=== PATIENT | male | born 1980 | race Caucasian/White ===

== ENCOUNTER → 2017-06-20 | Outpatient (CLI) | payer OTHER | LOC: WOUNDCARE 08:34 | PROVIDERS: ATTEND Nurse Practitioner | DX: L97.222 Non-pressure chronic ulcer of left calf with fat layer exposed (principal); I87.2 Venous insufficiency (chronic) (peripheral) | CPT/HCPCS: 11042; 87070; 87075; 87101; 87186; 87205 ==

== ENCOUNTER → 2017-07-06 | Outpatient (CLI) | payer OTHER | LOC: WOUNDCARE 15:00 | PROVIDERS: ATTEND Nurse Practitioner | DX: L97.222 Non-pressure chronic ulcer of left calf with fat layer exposed (principal); I87.2 Venous insufficiency (chronic) (peripheral); L03.116 Cellulitis of left lower limb | CPT/HCPCS: 11042 ==

== ENCOUNTER → 2017-07-13 | Outpatient (CLI) | payer OTHER | LOC: WOUNDCARE 13:52 | PROVIDERS: ATTEND Nurse Practitioner | DX: L97.222 Non-pressure chronic ulcer of left calf with fat layer exposed (principal); I87.2 Venous insufficiency (chronic) (peripheral); L03.116 Cellulitis of left lower limb | CPT/HCPCS: 11042 ==

== ENCOUNTER → 2017-07-20 | Outpatient (CLI) | payer OTHER | LOC: WOUNDCARE 14:16 | PROVIDERS: ATTEND Nurse Practitioner | DX: L97.222 Non-pressure chronic ulcer of left calf with fat layer exposed (principal); I87.2 Venous insufficiency (chronic) (peripheral); L03.116 Cellulitis of left lower limb | CPT/HCPCS: 11042 ==

== ENCOUNTER 2019-11-08 11:09 | Emergency (ER) | payer OTHER ==
[~2019-11-08] VITALS: Ht 190.5 cm; Wt 145.1 kg
[2019-11-08 11:18] VITALS: BP 143/76
[2019-11-08] MEDS ORDERED: LISI40TA (11:27)
[2019-11-08] MEDS ORDERED: WARF-48 (11:27)
[2019-11-08] MEDS ORDERED: HYDR-3820 (11:27)
[2019-11-08] MEDS ORDERED: LISI-552 (11:27)
--- NOTE | 2019-11-08 11:56 | ED Integumentary General ---
General Chief Complaint: Skin/Wound Problems Stated Complaint: LEG ULCER Nursing Triage Note: PT AMB TO [facility] WITH COMPLAINT OF LEFT LEG ULCER. 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 STATES THIS ULCER WOULD NOT STOP BLEEDING AT HOME AND WAS INSTRUCTED BY PCP TO COME TO ER. Source: patient Exam Limitations: no limitations History of Present Illness Date Seen by Provider: Nov 08, 2019 Time Seen by Provider: 11:30 Initial Comments Patient present ER by private conveyance with chief complaint of a chronic peripheral arterial disease ulcers on his left lower extremity that was bleeding. He has factor V Leiden and takes warfarin. He has been in and out of wound care for these chronic wounds for years. He is not having any fevers or redness. He says the wound started to bleed and had a little spray this morning when he was changing the dressing because the gauze had become dry and debrided the wound when he took it off. Typically he has to come get a stitch put in because of his warfarin usage. Today however the bleeding had stopped by the time he arrived to the ER. Allergies and Home Medications Allergies Coded Allergies: Tetanus Vaccines and Toxoid (Verified Allergy, Unknown, 11/08/19) amoxicillin (Verified Allergy, Unknown, 11/08/19) morphine (Verified Allergy, Unknown, 11/08/19) Patient Home Medication List Home Medication List Reviewed: Yes Review of Systems Review of Systems Constitutional: No chills, No diaphoresis EENTM: No ear discharge, No ear pain Respiratory: No cough, No short of breath Cardiovascular: No chest pain, No edema Gastrointestinal: No abdominal pain, No nausea Genitourinary: No discharge, No dysuria Musculoskeletal: No back pain, No joint pain All Other Systems Reviewed Negative Unless Noted: Yes Past [id number] Hx Patient Social History Alcohol Use: Denies Use Recreational Drug Use: No Smoking Status: Never a Smoker Recent Foreign Travel: No Contact w/Someone Who Travel: No Recent Infectious Disease Expo: No Recent Hopitalizations: No Immunizations Up To Date Tetanus Booster (TDap): Unknown PED Vaccines UTD: Yes Seasonal Allergies Seasonal Allergies: No Past Medical History Surgeries: Yes (leg stents) Cardiac: Yes Hypertension, Peripheral Vascular Neurological: No Genitourinary: No Gastrointestinal: No Musculoskeletal: No Endocrine: No HEENT: No Cancer: No Psychosocial: No Integumentary: Yes (chronic ulcers) Blood Disorders: Yes (factor v) Physical Exam Vital Signs Vital Signs - First Documented 11/08/19 11:18 Temp 37.3 Pulse 109 Resp 20 B/P (MAP) 143/76 (98) Pulse Ox 100 O2 Delivery Room Air Capillary Refill : Less Than 3 Seconds General Appearance: WD/WN, no apparent distress Neck: full range of motion, normal inspection Cardiovascular: normal peripheral pulses, regular rate, rhythm Respiratory: no respiratory distress, no accessory muscle use Neurologic/Psychiatric: alert, oriented x 3 Skin: other (multiple chronic arterial ulcers on the lower extremities dressed with gauze. The one in question has a granulomatous wound base with a small blood clot and no active exsanguination. No palpable induration, erythematous, tender surrounding tissue.) Progress/Results/Core Measures Results/Orders Vital Signs/I&O 11/08/19 11:18 Temp 37.3 Pulse 109 Resp 20 B/P (MAP) 143/76 (98) Pulse Ox 100 O2 Delivery Room Air Blood Pressure Mean: 98 Progress Progress Note : Time: 11:54 Progress Note No further intervention necessary at this time. Patient has plans to follow-up with wound care at [facility]. Wound was redressed. Departure Impression Primary Impression: Visit for wound check Disposition: 01 HOME, SELF-CARE Condition: Stable Departure-Patient Inst. Decision time for Depature: 11:55 Referrals: AVANI ORTIZ MD (PCP) Primary Care Physician Patient Instructions: Wound Care (DC) Add. Discharge Instructions: Keep the wound clean. Dress the base with a coating of petroleum jelly and then clean dry gauze at least daily or more often if it becomes soiled. Follow-up with wound care. Return to the doctor sooner if you begin to experience increasing pain, discharge, swelling, redness, fever or other worrisome symptoms. All discharge instructions reviewed with patient and/or family. Voiced understanding. NEGAR VALDIVIA Nov 08, 2019 11:56
--- OUTSIDE RECORDS SUMMARY | 2019-11-08 12:52 | XMS REPORT ---
Author Author Zana ORTIZ Organization [facility] Address [address] [place] [address] Care Team Providers Care Director Of Online Merchandising Name Role Phone AVANI ORTIZ Unavailable PROBLEMS Type Condition ICD9-CM Code PLO85-DE Code Onset Dates Condition S tatus SNOMED Code Problem Factor V Leiden D68.51 Active 3070 89783 Problem Anticoagulant long-term use Z79.01 Ac tive 058951402 Problem Post-phlebitic syndrome I87.009 Active 31480578 Problem 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 93166606 Problem Other chronic pain G89.29 Active 8 8195864 Problem Venous stasis ulcers, left I83.029 Act ozzy 521699628 Problem Essential hypertension I10 Active 47252739 Problem Venous anomaly Q27.9 Active 06366 4003 Problem Congenital single kidney Q60.0 Activ e 20329557 Problem Chronic prescription opiate use Z79.899 Active 542024766 Problem Pure hypercholesterolemia E78.00 Acti ve [id number] ALLERGIES No Information ENCOUNTERS Encounter Location Date Diagnosis [place] [address] [address] [facility] [id number] [address] [place] [phone] Oct, [place] [address] [address] [facility] [id number] [address] [place] [address] Sep, Anticoagulant long-term use Z79.01 [place] [address] [facility] [id number] [address] [place] [address] Sep, Anticoagulant long-term use Z79.01 [place] [address] [address] [facility] [id number] [address] [place] [address] Sep, Other chronic pain G89.29 [place] [address] [facility] [id number] [address] [place] [id number] Aug, [facility] [address] [id number] [address] [place] [phone] 08 Aug, 2019 Other chronic pain G89.29 [facility] [address] [id number] [address] [place] [id number] 04 Aug, 2019 [facility] [address] [facility] [id number] [address] [place] [phone] Aug, Anticoagulant long-term use Z79.01 [facility] [address] [facility] [id number] [address] [place] [id number] 02 Aug, 2019 Other chronic pain G89.[address] [id number] [id number] July, Anticoagulant long-term use Z79.01 [facility] [address] [facility] [id number] [address] [place] [phone] July, [facility] [address] [facility] [id number] [address] [place] [phone] July, [facility] [address] [facility] [id number] [address] [place] [address] July, Other chronic pain G89.29 [facility] [address] [facility] [id number] [address] [place] [phone] July, Other chronic pain G89.29 [facility] [address] [facility] [id number] [address] [place] [address] July, Other chronic pain G89.29 [facility] [address] [facility] [id number] [address] [place] [phone] July, Essential hypertension I10 ; Venous stasis ulcers, left I83.029 ; Other chronic pain G89.29 ; Factor V Leiden D68.51 and 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.09X0 [facility] [address] [facility] [id number] [address] [place] [phone] Jun, Other chronic pain G89.29 [facility] [address] [facility] [id number] [address] [place] [address] Jun, Anticoagulant long-term use Z79.01 [facility] [address] [id number], [place] [id number] May, Anticoagulant long-term use Z79.01 [facility] [address] [facility] [id number] [address] [place] [address] May, Other chronic pain G89.29 [facility] [address] [facility] [id number] [address] [place] [address] May, [facility]ticoagulant long-term use Z79.01 [facility] [id number] [place] [address] [id number] Apr, Anticoagulant long-term use Z79.01 [place] [address] [address] [facility] [id number] [address] [place] [address] Apr, Other chronic pain G89.29 [facility] [address] [facility] [id number] [address] [place] [address] Apr, Anticoagulant long-term use Z79.01 [facility] [id number] [place] [address] [id number] Apr, Anticoagulant long-term use Z79.01 [facility] [id number] [place] [address] [id number] Apr, Factor V Leiden D68.51 [place] [address] [facility] [id number] [address] [place] [address] Mar, Anticoagulant long-term use Z79.01 [place] [address] [address] [facility] [id number] [address] [place] [phone] Mar, Factor V Leiden D68.51 [place] [address] [address] [facility] [id number] [address] [place] [address] Mar, Occult blood positive stool R19.5 [place] [address] [address] [facility] [id number] [address] [place], [place] [id number] Mar, Other chronic pain G89.29 [place] [address] [facility] [id number] [address] [place] [address] Mar, Factor V Leiden D68.51 and A nticoagulant long-term use Z79.01 [facility] [address] [id number][place] [id number] Mar, Anticoagulant long-term use Z79.01 [facility] [address] [id number][place] [id number] Mar, Anticoagulant long-term use Z79.01 [place] [address] [address] [place] [id number] [address] [place] [address] Mar, Anticoagulant long-term use Z79.01 [place] [address] [address] [place] [address] Mar, Pure hypercholesterolemia E7 8.00 [facility] [address] [facility] [address] [id number][place] [id number] Mar, Anticoagulant long-term use Z79.01 [place] [address] [address] [place] [address] Mar, Other chronic pain G89.29 [place] [address] [address] [place] [id number] [address] [place] [address] Feb, Anticoagulant long-term use Z79.01 and Essential hypertension I10 [place] [address] [address] [place] [id number] [address] [place] [address] Feb, Anticoagulant long-term use Z79.01 ; Essential hypertension I10 ; Chronic prescription opiate use Z79.899 ; Other chronic pain G89.29 ; Venous stasis ulcers, left I83.029 ; 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.09X0 and Pure hypercholesterolemia E78.00 [facility] [address] [id number], [place] [id number] Feb, Anticoagulant long-term use Z79.01 [facility] [address] [facility] [id number] [address] [place] [address] Feb, Anticoagulant long-term use Z79.01 [facility] [address] [facility] [id number] [address] [place] [address] Feb, Other chronic pain G89.[address] [facility] [address] [id number], [place] [id number] Feb, Anticoagulant long-term use Z79.01 [facility] [address] [facility] [id number] [address] [place] [address] Jan, Anticoagulant long-term use Z79.[address] [facility] [address] [id number], [place] [id number] Jan, Anticoagulant long-term use Z79.[address] [facility] [address] [id number], [place] [id number] Jan, Anticoagulant long-term use Z79.01 [facility] [address] [facility] [id number] [address] [place] [address] Jan, Anticoagulant long-term use Z79.[address] [facility] [address] [id number], [place] [id number] Jan, Anticoagulant long-term use Z79.01 [place] [address] [facility] [id number] [address] [place] [address] Jan, Anticoagulant long-term use Z79.01 [facility] [address] [id number], [place] [id number] Jan, Anticoagulant long-term use Z79.01 [facility] [address] [facility] [id number] [address] [place] [address] Jan, [facility] [address] [id number], [place] [id number] Jan, Anticoagulant long-term use Z79.01 [place] [address] [facility] [id number] [address] [place] [address] Jan, [facility] [address] [facility] [id number] [address] [place] [address] Jan, Other chronic pain G89.29 [facility] [address] [facility] [id number] [address] [place] [address] Jan, Anticoagulant long-term use Z79.01 [facility] [id number] [place] [address] [id number] Dec, Anticoagulant long-term use Z79.01 [facility] [address] [facility] [id number] [address] [place] [address] Dec, Anticoagulant long-term use Z79.01 [facility] [id number] [place] [address] [id number] Dec, Anticoagulant long-term use Z79.01 [facility] [id number] [place] [address] [id number] Dec, Anticoagulant long-term use Z79.01 [facility] [address] [facility] [id number] [address] [place] [phone] Dec, Anticoagulant long-term use Z79.01 [facility] [address] [place] [id number] [address] [place] [phone] Dec, Anticoagulant long-term use Z79.01 [facility] [address] [facility] [id number] [address] [place] [phone] Dec, Anticoagulant long-term use Z79.01 [facility] [address] [facility] [id number] [address] [place] [phone] Dec, Other chronic pain G89.29 [facility] [address] [facility] [id number] [address] [place] [phone] Dec, Anticoagulant long-term use Z79.01 [facility] [address] [facility] [id number] [address] [place] [address] Dec, [facility] [address] [place] [id number] [address] [place] [id number] Dec, Other chronic pain G89.29 [facility] [address] [id number], [place] [id number] Dec, Anticoagulant long-term use Z79.01 [facility] [address] [facility] [id number] [address] [place] [address] Nov, Anticoagulant long-term use Z79.01 [facility] [id number] [place] [address] [id number] Nov, Anticoagulant long-term use Z79.01 [facility] [address] [facility] [id number] [address] [place] [address] Nov, Anticoagulant long-term use Z79.01 [facility] [address] [facility] [id number] [address] [place] [phone] Nov, Other chronic pain G89.29 [facility] [address] [facility] [id number] [address] [place] [address] Nov, Other chronic pain G89.29 [facility] [address] [facility] [id number] [address] [place] [phone] Nov, Anticoagulant long-term use Z79.01 [facility] [address] [id number], [place] [id number] Nov, Factor V Leiden D68.51 [facility] [address] [id number], [place] [id number] Nov, Factor V Leiden D68.51 [facility] [address] [facility] [id number] [address] [place] [address] Nov, Anticoagulant long-term use Z79.01 [facility] [address] [id number], [place] [id number] Nov, Anticoagulant long-term use Z79.01 [facility] [address] [facility] [id number] [address] [place] [phone] Nov, Essential hypertension I10 ; Factor V Leiden D68.51 and Anticoagulant long-term use Z79.01 [facility] [address] [id number], [place] [id number] Oct, Anticoagulant long-term use Z79.01 [facility] [address] [facility] [id number] [address] [place] [phone] Oct, [facility] [address] [facility] [id number] [address] [place] [id number] Oct, Anticoagulant long-term use Z79.01 [facility] [address] [facility] [id number] [address] [place] [address] Oct, Other chronic pain G89.29 [facility] [address] [facility] [id number] [address] [place] [phone] Oct, Anticoagulant long-term use Z79.01 [facility] [address] [facility] [id number] [address] [place] [phone] Oct, [facility] [address] [facility] [id number] [address] [place] [phone] Sep, Anticoagulant long-term use Z79.01 [facility] [address] [facility] [address] [id number], [place] [id number] Sep, Anticoagulant long-term use Z79.01 [facility] [address] [facility] [id number] [address] [place] [address] Sep, Other chronic pain G89.29 [facility] [address] [facility] [id number] [address] [place] [address] Sep, Anticoagulant long-term use Z79.01 [facility] [address] [id number], [place] [id number] Sep, Anticoagulant long-term use Z79.01 [facility] [address] [facility] [id number] [address] [place] [address] Aug, Anticoagulant long-term use Z79.01 [facility] [address] [facility] [id number] [address] [place] [address] Aug, Anticoagulant long-term use Z79.01 [facility] [address] [facility] [id number] [address] [place] [phone] Aug, Other chronic pain G89.29 [facility] [address] [facility] [id number] [address] [place] [address] Aug, Other chronic pain G89.29 ; Anticoagulant long-term use Z79.01 ; 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.09X0 ; Oral pain K13.79 ; Dental infection K04.7 ; Essential hypertension I10 and Pure hypercholesterolemia E78.00 [place] [address] [address] [facility] [id number] [address] [place] [phone] July, Other chronic pain G89.29 [facility] [address] [facility] [id number] [address] [place] [address] Jun, Other chronic pain G89.29 [facility] [address] [facility] [id number] [address] [place] [address] Jun, [facility] [address] [facility] [id number] [address] [place] [address] Jun, [facility] [address] [facility] [id number] [place] [address] [id number] Jun, Anticoagulant long-term use Z79.01 and I diopathic chronic gout of multiple 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 tophus M1A.09X0 [facility] [address] [facility] [id number] [address] [place] [address] May, Other chronic pain G89.29 [facility] [address] [facility] [id number] [address] [place] [address] May, [facility] [address] [facility] [id number] [address] [place] [address] May, Anticoagulant long-term use Z79.01 [facility] [address] [facility] [id number] [address] [place] [address] May, [facility] [address] [id number], [place] [id number] May, Anticoagulant long-term use Z79.01 [facility] [address] [facility] [id number] [address] [place] [address] May, Anticoagulant long-term use Z79.01 [facility] [address] [facility] [id number] [address] [place] [address] May, Anticoagulant long-term use Z79.[address] [facility] [address] [id number], [place] [id number] May, Factor V Leiden D68.51 [place] [address] [address] [facility] [id number] [address] [place] [address] Apr, Other chronic pain G89.29 [place] [address] [place] [id number] [address] [place] [address] Apr, Idiopathic chronic gout of m ultiple 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 tophus M1A.09X0 [facility] [address] [id number], [place] [id number] Apr, Anticoagulant long-term use Z79.01 [facility] [address] [id number], [place] [id number] Apr, Anticoagulant long-term use Z79.01 ; Med ication side effect T88.7XXA and 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.09X0 [place] [address] [facility] [id number] [address] [place] [id number] Apr, [place] [address] [facility] [id number] [address] [place] [address] Apr, Anticoagulant long-term use Z79.01 [place] [address] [facility] [id number] [address] [place] [address] Apr, Medication side effect T88.7 XXA and Factor V Leiden D68.51 [place] [address] [facility] [id number] [address] [place] [address] Apr, Idiopathic chronic gout of m ultiple 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 tophus M1A.09X0 and Anticoagulant long-term use Z79.01 [facility] [address] [id number], [place] [id number] Mar, Factor V Leiden D68.51 and Anticoagulant long-term use Z79.01 [place] [address] [facility] [id number] [address] [place] [address] Mar, Factor V Leiden D68.51 ; Ant icoagulant long-term use Z79.01 ; 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.09X0 ; Pure hypercholesterolemia E78.00 ; Other chronic pain G89.29 and BMI 40.0-44.9, adult Z68.[address] [id number] [address] [place] [address] Mar, [place] [address] [facility] [id number] [address] [place] [address] Mar, Other chronic pain G89.[address] [id number] Feb, Idiopathic chronic gout of m ultiple 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 tophus M1A.09X0 [address] [id number], [place] [id number] Feb, Anticoagulant long-term use Z79.01 and I diopathic chronic gout of multiple 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 tophus M1A.09X0 [place] [address] [facility] [id number] [address] [place] [address] Feb, Anticoagulant long-term use Z79.01 and 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.09X0 [place] [address] [facility] [id number] [address] [place] [address] Feb, [place] [address] [facility] [id number] [address] [place] [address] Feb, Other chronic pain G89.29 [facility] [address] [id number] [address] [place] [address] Jan, Other chronic pain G89.29 [facility] [address] [id number] [address] [place] [address] Dec, Other chronic pain G89.29 [facility] [address] [id number] [address] [place] [address] Dec, Anticoagulant long-term use Z79.01 [facility] [address] [id number] [address] [place] [address] Dec, Chronic prescription opiate use Z79.899 ; Factor V Leiden D68.51 ; Other chronic pain G89.29 and Anticoagulant long-term use Z79.01 [facility] [address] [id number] [address] [place] [address] Nov, Other chronic pain G89.29 [facility] [address] [id number] [address] [place] [phone] Oct, Other chronic pain G89.29 [facility] [address] [id number] [address] [place] [phone] Sep, Other chronic pain G89.29 [facility] [address] [facility] [id number] [address] [place] [phone] Aug, Other chronic pain G89.29 [facility] [address] [id number] [address] [place] [phone] Aug, Venous stasis ulcers, left I 83.029 [facility] [address] [id number] [address] [place] [phone] July, Other chronic pain G89.29 [facility] [address] [id number] [address] [place] [phone] July, Venous stasis ulcers, left I 83.029 and Snoring R06.83 [facility] [address] [id number] [address] [place] [phone] Jun, Idiopathic chronic gout of m ultiple 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 tophus M1A.09X0 [facility] [address] [facility] [id number] [address] [place] [phone] Jun, Acute renal insufficiency N2 8.9 [facility] [address] [facility] [id number] [address] [place] [phone] Jun, Other chronic pain G89.29 [place] [address] [address] [facility] [id number] [address] [place] [phone] Jun, Acute renal insufficiency N2 8.[id number] [place] [id number] Jun, Idiopathic chronic gout of multiple site s without tophus M1A.09X0 ; Essential hypertension I10 and Anticoagulant long-term use Z79.01 [place] [address] [address] [facility] [id number] [address] [place] [phone] Jun, Anticoagulant long-term use Z79.01 and Essential hypertension I10 [place] [address] [address] [facility] [id number] [address] [place] [phone] May, Idiopathic chronic gout of ultiple 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 tophus M1A.09X0 [place] [address] [facility] [id number] [address] [place] [phone] May, [place] [address] [address] [facility] [id number] [address] [place] [phone] May, Essential hypertension I10 ; Pure hypercholesterolemia E78.00 ; Anticoagulant long-term use Z79.01 and 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.09X0 [place] [address] [address] [facility] [id number] [address] [place] [address] May, Other chronic pain G89.29 [place] [address] [address] [facility] [id number] [address] [place] [address] May, Anticoagulant long-term use Z79.01 [place] [address] [id number] [address] [place] [address] May, Chronic prescription opiate use Z79.899 ; Other chronic pain G89.29 ; Essential hypertension I10 ; Factor V Leiden D68.51 ; Anticoagulant long-term use Z79.01 ; Pure hypercholesterolemia E78.00 ; Venous stasis ulcers, left I83.029 ; 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.09X0 and Cellulitis of left lower extremity L03.116 [place] [address] [facility] [id number] [address] [place] [address] Apr, Other chronic pain G89.29 [place] [address] [address] [facility] [id number] [address] [place] [address] Mar, Other chronic pain G89.29 [place] [address] [address] [facility] [id number] [address] [place] [address] Mar, Factor V Leiden D68.51 ; Pur e hypercholesterolemia E78.00 and Other chronic pain G89.29 [place] [address] [address] [facility] [id number] [address] [place] [address] Feb, Other chronic pain G89.29 [place] [address] [address] [facility] [id number] [address] [place] [address] Jan, Idiopathic chronic gout of m ultiple 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 tophus M1A.09X0 [place] [address] [address] [facility] [id number] [address] [place] [address] Jan, Other chronic pain G89.29 [place] [address] [address] [facility] [id number] [address] [place] [address] Dec, Anticoagulant long-term use Z79.01 ; Factor V Leiden D68.51 and Other chronic pain G89.29 [place] [address] [address] [facility] [id number] [address] [place] [address] Dec, Other chronic pain G89.29 [place] [address] [address] [facility] [id number] [address] [place] [address] Nov, Other chronic pain G89.29 [facility] [address] [facility] [id number] [address] [place] [address] Oct, Other chronic pain G89.29 [facility] [address] [facility] [id number] [address] [place] [address] Sep, Anticoagulant long-term use Z79.01 [facility] [address] [facility] [id number] [address] [place] [address] Sep, Chronic prescription opiate use Z79.899 ; Anticoagulant long-term use Z79.01 ; Essential hypertension I10 ; Pure hypercholesterolemia E78.00 ; Factor V Leiden D68.51 ; Venous stasis ulcers, left I83.029 ; Other chronic pain G89.29 and 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.09X0 [place] [address] [address] [facility] [id number] [address] [place] [address] Aug, Anticoagulant long-term use Z79.01 [place] [address] [address] [facility] [id number] [address] [place] [address] Aug, Other chronic pain G89.29 [place] [address] [address] [facility] [id number] [address] [place] [address] Aug, Essential hypertension I10 a nd Factor V Leiden D68.[address] [id number] [place] [id number] Aug, Acute right ankle pain M25.571 and Tendo nitis of ankle M77.50 [place] [address] [address] [facility] [id number] [address] [place] [address] Aug, [place] [address] [address] [facility] [id number] [address] [place] [address] July, Other chronic pain G89.29 [place] [address] [address] [facility] [id number] [address] [place] [address] Jun, Other chronic pain G89.29 [place] [address] [address] [facility] [id number] [address] [place] [address] Jun, Other chronic pain G89.29 [facility] [address] [facility] [id number] [address] [place] [address] Jun, Anticoagulant long-term use Z79.01 [facility] [address] [facility] [id number] [address] [place] [address] May, Other chronic pain G89.29 [facility] [address] [facility] [id number] [address] [place] [address] May, Anticoagulant long-term use Z79.01 [place] [address] [address] [facility] [id number] [address] [place] [address] May, Other chronic pain G89.29 [place] [address] [address] [place] [id number] [address] [place] [address] Apr, Anticoagulant long-term use Z79.01 [place] [address] [facility] [id number] [address] [place] [address] Apr, Other chronic pain G89.29 [facility] [address] [facility] [id number] [address] [place] [address] Apr, Anticoagulant long-term use Z79.01 and Pure hypercholesterolemia E78.00 [facility] [address] [facility] [id number] [address] [place] [address] Mar, [facility] [address] [facility] [id number] [address] [place] [address] Mar, Anticoagulant long-term use Z79.01 [facility] [address] [facility] [id number] [address] [place] [address] Mar, Other chronic pain G89.29 [facility] [address] [facility] [id number] [address] [place] [address] Feb, Essential hypertension I10 ; Chronic prescription opiate use Z79.899 ; Other chronic pain G89.29 ; Screening Z13.9 ; Factor V Leiden D68.51 ; Anticoagulant long-term use Z79.01 ; Venous stasis dermatitis of left lower extremity I83.12 and Pure hypercholesterolemia E78.00 [facility] [address] [facility] [id number] [address] [place] [address] 14 Jan, 2016 Anticoagulant long-term use Z79.01 [facility] [address] [id number] [address] [place] [address] 10 Jan, 2016 Anticoagulant long-term use Z79.01 [facility] [address] [id number] [address] [place] [address] 09 Jan, 2016 [facility] [address] [id number] [address] [place] [phone] Jan, [facility] [address] [facility] [id number] [address] [place] [address] Dec, [facility] [address] [facility] [id number] [address] [place] [address] Nov, [facility] [address] [id number] [address] [place] [address] Oct, Anticoagulant long-term use Z79.01 [facility] [address] [facility] [id number] [address] [place] [address] Oct, [facility] [address] [facility] [id number] [address] [place] [address] Oct, Anticoagulant long-term use Z79.01 [facility] [address] [id number] [address] [place] [address] Sep, [facility] [address] [facility] [id number] [address] [place] [address] Aug, [facility] [address] [facility] [id number] [address] [place] [address] Aug, Chronic prescription opiate use Z79.899 ; Other chronic pain G89.29 ; Essential hypertension I10 and Pure hypercholesterolemia E78.0 [facility] [address] [id number] [address] [place] [address] July, Hyperlipidemia, group D E78. 3 and Anticoagulant long-term use Z79.01 [facility] [address] [facility] [id number] [address] [place] [address] July, Hyperlipidemia, group D E78. 3 ; Essential hypertension I10 and Factor V Leiden D68.51 [facility] [address] [facility] [id number] [address] [place] [address] July, Essential hypertension I10 [place] [address] [address] [facility] [id number] [address] [place] [address] Jun, Hyperlipidemia, group D E78. 3 [place] [address] [address] [facility] [id number] [address] [place] [address] Jun, Factor V Leiden D68.51 [place] [address] [address] [facility] [id number] [address] [place] [address] May, Factor V Leiden D68.51 ; Hyp erlipidemia, group D E78.3 ; Essential hypertension I10 ; Other chronic pain G89.29 and Anticoagulant long-term use Z79.01 [place] [address] [address] [facility] [id number] [address] [place] [address] May, Anticoagulant long-term use Z79.01 [place] [address] [address] [facility] [id number] [address] [place] [address] May, Anticoagulant long-term use Z79.01 [facility] [address] [facility] [id number] [address] [place] [address] May, [facility] [address] [facility] [id number] [address] [place] [address] Apr, [place] [address] [address] [facility] [id number] [address] [place] [address] Mar, [place] [address] [address] [facility] [id number] [address] [place] [address] Mar, [place] [address] [address] [place] [id number] [address] [place] [address] 17 Feb, 2015 Anticoagulant long-term use Z79.01 [facility] [address] [address] 16 Feb, 2015 Chronic prescription opiate use Z79.899 ; Other chronic pain G89.29 ; Hyperlipidemia, group D E78.3 ; Factor V Leiden D68.51 and Anticoagulant long- term use Z79.01 [facility] [address] [phone] Feb, [facility] [address] [address] Jan, [place] [address] [address] Dec, Hyperlipidemia, unspecified E78.5 [place] [address] [address] Dec, Cellulitis of left lower ext remity L03.116 ; Venous stasis ulcers, left I83.029 and Factor V Leiden D68.51 [place] [address] [address] Dec, Hyperlipidemia 272.4 and Fac tor 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 [place] [address] [address] [place] [id number] [address] [place] [address] Dec, [facility] [address] [place] [id number] [address] [place] [address] Nov, 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 [facility] [address] [place] [id number] [address] [place] [address] Nov, [place] [address] [address] Nov, [facility] [address] [place] [id number] [address] [place] [address] Nov, [facility] [address] [place] [address] Oct, [facility] [address] [facility] [id number] [address] [place] [address] Oct, Hyperlipidemia 272.4 ; Chron ic pain disorder 338.4 ; Venous stasis ulcer of left lower extremity 454.0 and 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 [facility] [address] [facility] [id number] [address] [place] [address] Sep, [facility] [address] [facility] [id number] [place] [address] Sep, [facility] [address] [facility] [id number] [place] [address] Sep, Hyperlipidemia 272.4 and Fac tor 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 [facility] [address] [place] [id number] [place] [address] Aug, [facility] [address] [address] Aug, 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 [facility] [address] [facility] [id number] [address] [place] [address] July, [facility] [address] [place] [id number] [address] [place] [address] July, Essential hypertension, fito gn 401.1 ; 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 ; Chronic pain disorder 338.4 ; Hyperlipidemia 272.4 and Venous stasis ulcer of left lower extremity 454.0 [facility] [address] [facility] [id number] [address] [place] [address] Jun, [facility] [address] [place] [id number] [place] [address] Jun, [facility] [address] [place] [id number] [address] [place] [address] May, [facility] [address] [place] [id number] [address] [place] [address] May, [facility] [address] [id number] [address] [place] [address], [place] [address] 20 Apr, 2014 [facility] [address] [id number] [address] [place] [address], [place] [address] 20 Apr, 2014 [facility] [address] [id number] [address] [place] [address], [place] [address] 18 Apr, 2014 [facility] [address] [id number] [address] [place] [address], [place] [address] 18 Apr, 2014 [facility] [address] [id number] [address] [place] [address], [place] [address] Apr, [facility] [address] [id number] [address] [place] [address], [place] [address] Apr, [facility] [address] [id number] [address] [place] [address], [place] [address] 15 Mar, 2014 [facility] [address] [id number] [address] [place] [address], [place] [address] Mar, [facility] [address] [id number] [address] [place] [address], [place] [address] Mar, [facility] [address] [id number] [address] [place] [address], [place] [address] Mar, [facility] [address] [id number] [address] [place] [address], [place] [address] 17 Feb, 2014 [facility] [address] [id number] [address] [place] [address], [place] [address] 17 Feb, 2014 [facility] [address] [id number] [address] [place] [address], [place] [address] 16 Feb, 2014 [facility] [address] [id number] [address] [place] [address], [place] [address] 16 Feb, 2014 [facility] [address] [id number] [address] [place] [address], [place] [address] 24 Jan, 2014 [facility] [address] [id number] [address] [place] [address], [place] [address] Jan, [facility] [address] [id number] [address] [place] [address], [place] [address] Jan, [facility] [address] [id number] [address] [place] [address], [place] [address] Jan, [facility] [address] [id number] [address] [place] [address], [place] [address] Jan, [facility] [address] [id number] [address] [place] [address], [place] [address] Jan, [facility] [address] [id number] [address] [place] [address], [place] [address] Dec, [facility] [address] [id number] [address] [place] [address], [place] [address] Dec, [facility] [address] [id number] [address] [place] [address], [place] [address] Oct, [facility] [address] [id number] [address] [place] [address], [place] [address] Oct, [facility] [address] [id number] [address] [place] [address], [place] [address] Sep, [facility] [address] [id number] [address] [place] [address], [place] [address] Sep, [facility] [address] [id number] [address] [place] [address], [place] [address] Sep, [facility] [address] [id number] [address] [place] [address], [place] [address] Sep, [facility] [address] [id number] [address] [place] [address], [place] [address] Aug, [facility] [address] [id number] [address] [place] [address], [place] [address] Aug, [facility] [address] [id number] [address] [place] [address], [place] [address] July, [facility] [address] [id number] [address] [place] [address], [place] [address] July, [facility] [address] [id number] [address] [place] [address], [place] [address] Jun, [facility] [address] [id number] [address] [place] [address], [place] [address] Jun, [facility] [address] [id number] [address] [place] [address], [place] [address] May, [facility] [address] [id number] [address] [place] [address], [place] [address] May, [facility] [address] [id number] [address] [place] [address], [place] [address] Apr, [facility] [address] [id number] [address] [place] [address], [place] [address] Apr, [facility] [address] [id number] [address] [place] [address], [place] [address] Mar, [facility] [address] [id number] [address] [place] [address], [place] [address] Mar, [facility] [address] [id number] [address] [place] [address], [place] [address] Jan, [facility] [address] [id number] [address] [place] [address], [place] [address] Jan, [facility] [address] [id number] [address] [place] [address], [place] [address] Jan, [facility] [address] [id number] [address] [place] [address], [place] [address] Jan, [facility] [address] [id number] [address] [place] [address], [place] [address] Jan, [facility] [address] [id number] [address] [place] [address], [place] [address] Dec, [facility] [address] [id number] [address] [place] [address], [place] [address] Dec, [facility] [address] [id number] [address] [place] [address], [place] [address] Dec, [facility] [address] [id number] [address] [place] [address], [place] [address] Nov, [facility] [address] [id number] [address] [place] [address], [place] [address] Nov, [facility] [address] [id number] [address] [place] [address], [place] [address] Sep, [facility] [address] [id number] [address] [place] [address], [place] [address] Sep, [facility] [address] [id number] [address] [place] [address] Aug, [facility] [address] [id number] [address] [place] [address], [place] [address] Aug, [facility] [address] [id number] [id number] July, [facility] [address] [id number] [place] [id number] Jun, [facility] [address] [id number] [place] [id number] Apr, [facility] [address] [id number] [place] [id number] Mar, [facility] [address] [id number] [address] [place] [address], [place] [address] Mar, [facility] [address] [id number] [place] [id number] Mar, [facility] [address] [id number] [address] [place] [id number] Mar, [facility] [address] [id number] [place] [id number] Feb, [facility] [address] [id number] [address] [place] [phone] Feb, [facility] [address] [id number] [place] [id number] Feb, [facility] [address] [facility] [id number] [address] [place] [phone] Feb, [facility] [address] [id number] [place] [id number] Oct, [facility] [address] [id number] [place] [id number] Oct, [facility] [address] [id number] [place] [id number] July, [facility] [address] [id number] [place] [id number] July, [facility] [address] [id number] [place] [id number] Jun, [facility] [address] [id number] [place] [id number] Jun, [facility] [address] [id number] [place] [id number] Jun, [facility] [address] [id number] [place] [id number] Mar, [facility] [address] [id number] [place] [id number] Mar, [facility] [address] [facility] [id number] [address] [place] [id number] Feb, [facility] [address] [facility] [id number] [address] [place] [phone] Feb, [facility] [address] [facility] [id number] [address] [place] [phone] Jan, [facility] [address] [facility] [id number] [address] [place] [id number] Jan, [facility] [address] [facility] [id number] [address] [place] [phone] Jan, [facility] [address] [facility] [id number] [address] [place] [phone] Jan, [facility] [address] [facility] [id number] [address] [place] [id number] 11 Jan, 2011 [facility] [address] [facility] [id number] [address] [place] [id number] 14 Aug, 2010 [facility] [address] [facility] [id number] [address] [place] [id number] 17 Apr, 2010 IMMUNIZATIONS No Known Immunizations SOCIAL HISTORY Never Assessed REASON FOR VISIT Lab Results PLAN OF CARE VITAL SIGNS MEDICATIONS Unknown Medications RESULTS No Results PROCEDURES No Known procedures INSTRUCTIONS MEDICATIONS ADMINISTERED No Known Medications MEDICAL (GENERAL) HISTORY Type Description Date Medical History hypertension Medical History Cardiovascular Disorder--anomaly of aort a Medical History Renal Disease only has one k idney-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 Absent left kidney Medical History Megaureter right kidney--history of uric acid kidney stones Medical History Gout Medical History hyperlipidemia Medical History Hematologic Disorder-Left le g iliofemoral DVT treated initially with open thrombectomy, patient then developed recurrent problems with postphlebitic leg syndrome--trellis thrombectomy in 09/2009 required multiple stents, pain and sweeling returned 6 weeks after--unsuccessful re-opening of stents (unable to pass balloon through heavily thrombosed and likely fractured stents in the left common femoral vein) Medical History Factor V Leyden with anomalo us venous drainage with absent left kidney; 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
--- OUTSIDE RECORDS SUMMARY | 2019-11-08 12:53 | XMS REPORT ---
Author Author Zana ORTIZ Organization [facility] Address [address] [place] [address] Care Team Providers Care Permit Agent Name Role Phone AVANI ORTIZ Unavailable PROBLEMS Type Condition ICD9-CM Code [id number] Code Onset Dates Condition S tatus SNOMED Code Problem Factor V Leiden D68.51 Active 3070 86444 Problem Anticoagulant long-term use Z79.01 Ac tive 693223981 Problem Post-phlebitic syndrome I87.009 Active 44961931 Problem 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 23458044 Problem Other chronic pain G89.29 Active 8 6334974 Problem Venous stasis ulcers, left I83.029 Act ozzy 381541248 Problem Essential hypertension I10 Active 90581928 Problem Venous anomaly Q27.9 Active 68368 4003 Problem Congenital single kidney Q60.0 Activ e 49137450 Problem Chronic prescription opiate use Z79.899 Active 233833954 Problem Pure hypercholesterolemia E78.00 Acti ve [id number] ALLERGIES No Information ENCOUNTERS Encounter Location Date Diagnosis [place] [address] [facility] [id number] [address] [place] [address] 26 Aug, 2019 [facility] [address] [facility] [id number] [address] [place] [address] 08 Aug, 2019 Other chronic pain G89.29 [facility] [address] [facility] [id number] [address] [place] [address] 04 Aug, 2019 [place] [address] [facility] [id number] [address] [place] [address] 02 Aug, 2019 Anticoagulant long-term use Z79.01 [place] [address] [facility] [id number] [address] [place] [address] Aug, Other chronic pain G89.29 [facility] [address] [id number][place] [id number] July, Anticoagulant long-term use Z79.01 [facility] [address] [facility] [id number] [address] [place] [address] July, [facility] [address] [facility] [id number] [address] [place] [address] July, [facility] [address] [facility] [id number] [address] [place] [address] July, Other chronic pain G89.29 [facility] [address] [facility] [id number] [address] [place] [address] July, Other chronic pain G89.29 [facility] [address] [facility] [id number] [address] [place] [address] July, Other chronic pain G89.29 [facility] [address] [facility] [id number] [address] [place] [address] July, Essential hypertension I10 ; Venous stasis ulcers, left I83.029 ; Other chronic pain G89.29 ; Factor V Leiden D68.51 and 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.09X0 [facility] [address] [facility] [id number] [address] [place] [address] Jun, Other chronic pain G89.29 [facility] [address] [facility] [id number] [address] [place] [address] Jun, Anticoagulant long-term use Z79.01 [facility] [address] [id number], [place] [id number] May, Anticoagulant long-term use Z79.01 [facility] [address] [facility] [id number] [address] [place] [address] May, Other chronic pain G89.29 [facility] [address] [facility] [id number] [address] [place] [address] May, Anticoagulant long-term use Z79.01 [facility] [address] [id number], [place] [id number] Apr, Anticoagulant long-term use Z79.01 [place] [address] [facility] [id number] [address] [place] [address] Apr, Other chronic pain G89.29 [place] [address] [place] [address] Apr, Anticoagulant long-term use Z79.01 [facility] [address] [id number], [place] [id number] Apr, Anticoagulant long-term use Z79.01 [facility] [address] [id number], [place] [id number] Apr, Factor V Leiden D68.51 [place] [address] [place] [id number] [address] [place] [address] Mar, Anticoagulant long-term use Z79.01 [place] [address] [place] [address] Mar, Factor V Leiden D68.51 [place] [address] [place] [id number] [address] [place] [address] Mar, Occult blood positive stool R19.5 [place] [address] [place] [id number] [address] [place] [address] Mar, Other chronic pain G89.29 [place] [address] [place] [id number] [address] [place] [address] Mar, Factor V Leiden D68.51 and A nticoagulant long-term use Z79.01 [facility] [address] [id number], [place] [id number] Mar, Anticoagulant long-term use Z79.01 [facility] [address] [id number], [place] [id number] Mar, Anticoagulant long-term use Z79.01 [facility] [address] [facility] [id number] [address] [place] [address] Mar, Anticoagulant long-term use Z79.01 [facility] [address] [facility] [id number] [address] [place] [address] Mar, Pure hypercholesterolemia E7 8.00 [facility] [id number] [place] [address] [id number] Mar, Anticoagulant long-term use Z79.01 [facility] [address] [facility] [id number] [address] [place] [address] Mar, Other chronic pain G89.29 [facility] [address] [facility] [id number] [address] [place] [address] Feb, Anticoagulant long-term use Z79.01 and Essential hypertension I10 [facility] [address] [facility] [id number] [address] [place] [address] Feb, Anticoagulant long-term use Z79.01 ; Essential hypertension I10 ; Chronic prescription opiate use Z79.899 ; Other chronic pain G89.29 ; Venous stasis ulcers, left I83.029 ; 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.09X0 and Pure hypercholesterolemia E78.00 [facility] [address] [id number], [place] [id number] Feb, Anticoagulant long-term use Z79.01 [facility] [address] [facility] [id number] [address] [place] [address] Feb, Anticoagulant long-term use Z79.01 [facility] [address] [facility] [id number] [address] [place] [address] Feb, Other chronic pain G89.29 [facility] [id number] [place] [address] [id number] Feb, Anticoagulant long-term use Z79.01 [facility] [address] [facility] [id number] [address] [place] [address] Jan, Anticoagulant long-term use Z79.[address] [facility] [address] [id number] [place] [id number] Jan, Anticoagulant long-term use Z79.[address] [facility] [address] [id number], [place] [id number] Jan, Anticoagulant long-term use Z79.01 [facility] [address] [facility] [id number] [address] [place] [address] Jan, Anticoagulant long-term use Z79.01 [facility] [address] [id number], [place] [id number] Jan, Anticoagulant long-term use Z79.01 [facility] [address] [facility] [id number] [address] [place] [address] Jan, Anticoagulant long-term use Z79.01 [facility] [address] [id number], [place] [id number] Jan, Anticoagulant long-term use Z79.01 [facility] [address] [facility] [id number] [address] [place] [address] Jan, [facility] [address] [id number], [place] [id number] Jan, Anticoagulant long-term use Z79.01 [facility] [address] [facility] [id number] [address] [place] [address] Jan, [facility] [address] [facility] [id number] [address] [place] [address] Jan, Other chronic pain G89.29 [facility] [address] [facility] [id number] [address] [place] [address] Jan, Anticoagulant long-term use Z79.01 [facility] [address] [id number], [place] [id number] Dec, Anticoagulant long-term use Z79.01 [facility] [address] [facility] [id number] [address] [place] [address] Dec, Anticoagulant long-term use Z79.01 [facility] [address] [id number], [place] [id number] Dec, Anticoagulant long-term use Z79.01 [facility] [address] [id number], [place] [id number] Dec, Anticoagulant long-term use Z79.01 [facility] [address] [facility] [id number] [address] [place] [address] Dec, Anticoagulant long-term use Z79.01 [facility] [address] [facility] [id number] [address] [place] [address] Dec, Anticoagulant long-term use Z79.01 [facility] [address] [facility] [id number] [address] [place] [address] Dec, Anticoagulant long-term use Z79.01 [facility] [address] [facility] [id number] [address] [place] [address] Dec, Other chronic pain G89.29 [facility] [address] [facility] [id number] [address] [place] [address] Dec, Anticoagulant long-term use Z79.01 [facility] [address] [facility] [id number] [address] [place] [address] Dec, [facility] [address] [facility] [id number] [address] [place] [address] Dec, Other chronic pain G89.29 [facility] [address] [id number], [place] [id number] Dec, Anticoagulant long-term use Z79.01 [facility] [address] [facility] [id number] [address] [place] [address] Nov, Anticoagulant long-term use Z79.01 [facility] [address] [id number], [place] [id number] Nov, Anticoagulant long-term use Z79.01 [facility] [address] [facility] [id number] [address] [place] [address] 13 Nov, 2018 Anticoagulant long-term use Z79.01 [facility] [address] [facility] [id number] [address] [place] [address] 13 Nov, 2018 Other chronic pain G89.29 [facility] [address] [facility] [id number] [address] [place] [address] 12 Nov, 2018 Other chronic pain G89.29 [facility] [address] [facility] [id number] [address] [place] [address] Nov, Anticoagulant long-term use Z79.01 [facility] [address] [id number], [place] [id number] Nov, Factor V Leiden D68.51 [facility] [address] [id number], [place] [id number] Nov, Factor V Leiden D68.51 [place] [address] [facility] [id number] [address] [place] [address] Nov, Anticoagulant long-term use Z79.01 [facility] [address] [id number], [place] [id number] Nov, Anticoagulant long-term use Z79.01 [facility] [address] [facility] [id number] [address] [place] [address] Nov, Essential hypertension I10 ; Factor V Leiden D68.51 and Anticoagulant long-term use Z79.01 [facility] [address] [id number], [place] [id number] Oct, Anticoagulant long-term use Z79.01 [place] [address] [facility] [id number] [address] [place] [address] Oct, [facility] [address] [facility] [id number] [address] [place] [address] Oct, Anticoagulant long-term use Z79.01 [facility] [address] [facility] [id number] [address] [place] [address] Oct, Other chronic pain G89.29 [facility] [address] [facility] [id number] [address] [place] [address] Oct, Anticoagulant long-term use Z79.01 [facility] [address] [facility] [id number] [address] [place] [address] Oct, [facility] [address] [facility] [id number] [address] [place] [address] Sep, Anticoagulant long-term use Z79.[address] [place] [id number] [place] [address] [id number] Sep, Anticoagulant long-term use Z79.01 [place] [address] [facility] [id number] [address] [place] [address] Sep, Other chronic pain G89.29 [place] [address] [facility] [id number] [address] [place] [address] Sep, Anticoagulant long-term use Z79.[address] [place] [address] [id number], [place] [id number] Sep, Anticoagulant long-term use Z79.01 [place] [address] [facility] [id number] [address] [place] [address] Aug, Anticoagulant long-term use Z79.01 [place] [address] [facility] [id number] [address] [place] [address] Aug, Anticoagulant long-term use Z79.01 [place] [address] [facility] [id number] [address] [place] [address] Aug, Other chronic pain G89.29 [place] [address] [facility] [id number] [address] [place] [address] Aug, Other chronic pain G89.29 ; Anticoagulant long-term use Z79.01 ; 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.09X0 ; Oral pain K13.79 ; Dental infection K04.7 ; Essential hypertension I10 and Pure hypercholesterolemia E78.00 [facility] [address] [facility] [id number] [address] [place] [address] July, Other chronic pain G89.29 [facility] [address] [facility] [id number] [address] [place] [address] Jun, Other chronic pain G89.29 [facility] [address] [facility] [id number] [address] [place] [address] Jun, [facility] [address] [facility] [id number] [address] [place] [address] Jun, [facility] [address] [id number], [place] [id number] Jun, Anticoagulant long-term use Z79.01 and I diopathic chronic gout of multiple 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 tophus M1A.09X0 [facility] [address] [facility] [id number] [address] [place] [address] May, Other chronic pain G89.29 [facility] [address] [facility] [id number] [address] [place] [address] May, [facility] [address] [facility] [id number] [address] [place] [address] May, Anticoagulant long-term use Z79.01 [facility] [address] [facility] [id number] [address] [place] [address] May, [facility] [address] [id number], [place] [id number] May, Anticoagulant long-term use Z79.01 [facility] [address] [facility] [id number] [address] [place] [address] May, Anticoagulant long-term use Z79.01 [facility] [address] [facility] [id number] [address] [place] [address] May, Anticoagulant long-term use Z79.01 [facility] [address] [id number], [place] [id number] May, Factor V Leiden D68.51 [facility] [address] [facility] [id number] [address] [place] [address] Apr, Other chronic pain G89.29 [facility] [address] [facility] [id number] [address] [place] [address] Apr, Idiopathic chronic gout of m ultiple 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 tophus M1A.09X0 [facility] [address] [id number], [place] [id number] Apr, Anticoagulant long-term use Z79.01 [facility] [address] [id number], [place] [id number] Apr, Anticoagulant long-term use Z79.01 ; Med ication side effect T88.7XXA and 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.09X0 [place] [address] [facility] [id number] [address] [place] [address] Apr, [place] [address] [facility] [id number] [address] [place] [address] Apr, Anticoagulant long-term use Z79.01 [place] [address] [facility] [id number] [address] [place] [address] Apr, Medication side effect T88.7 XXA and Factor V Leiden D68.51 [place] [address] [facility] [id number] [address] [place] [address] Apr, Idiopathic chronic gout of m ultiple 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 tophus M1A.09X0 and Anticoagulant long-term use Z79.01 [facility] [address] [id number], [place] [id number] Mar, Factor V Leiden D68.51 and Anticoagulant long-term use Z79.01 [place] [address] [facility] [id number] [address] [place] [address] Mar, Factor V Leiden D68.51 ; Ant icoagulant long-term use Z79.01 ; 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.09X0 ; Pure hypercholesterolemia E78.00 ; Other chronic pain G89.29 and BMI 40.0-44.9, adult Z68.41 [facility] [address] [id number] [address] [place] [address] Mar, [facility] [address] [id number] [address] [place] [address] Mar, Other chronic pain G89.29 [facility] [address] [id number] [address] [place] [address] Feb, Idiopathic chronic gout of m ultiple 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 tophus M1A.09X0 [id number] [place] [id number] Feb, Anticoagulant long-term use Z79.01 and I diopathic chronic gout of multiple 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 tophus M1A.09X0 [place] [address] [facility] [id number] [address] [place] [address] Feb, Anticoagulant long-term use Z79.01 and 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.09X0 [place] [address] [facility] [id number] [address] [place] [address] Feb, [facility] [address] [facility] [id number] [address] [place] [address] Feb, Other chronic pain G89.29 [facility] [address] [facility] [id number] [address] [place] [address] Jan, Other chronic pain G89.29 [facility] [address] [id number] [address] [place] [address] Dec, Other chronic pain G89.29 [facility] [address] [facility] [id number] [address] [place] [address] Dec, Anticoagulant long-term use Z79.01 [facility] [address] [id number] [address] [place] [address] Dec, Chronic prescription opiate use Z79.899 ; Factor V Leiden D68.51 ; Other chronic pain G89.29 and Anticoagulant long-term use Z79.01 [facility] [address] [id number] [address] [place] [address] 12 Nov, 2017 Other chronic pain G89.29 [facility] [address] [id number] [address] [place] [address] Oct, Other chronic pain G89.29 [facility] [address] [id number] [address] [place] [address] Sep, Other chronic pain G89.29 [facility] [address] [facility] [id number] [address] [place] [address] Aug, Other chronic pain G89.29 [facility] [address] [facility] [id number] [address] [place] [address] Aug, Venous stasis ulcers, left I 83.029 [facility] [address] [id number] [address] [place] [address] July, Other chronic pain G89.29 [facility] [address] [id number] [address] [place] [address] July, Venous stasis ulcers, left I 83.029 and Snoring R06.83 [facility] [address] [facility] [id number] [address] [place] [address] Jun, Idiopathic chronic gout of m ultiple 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 tophus M1A.09X0 [facility] [address] [id number] [address] [place] [address] Jun, Acute renal insufficiency N2 8.9 [facility] [address] [facility] [id number] [address] [place] [phone] Jun, Other chronic pain G89.29 [facility] [address] [facility] [id number] [address] [place] [id number] Jun, Acute renal insufficiency N2 8.[address] [place] [id number] [place] [id number] 16 Jun, 2017 Idiopathic chronic gout of multiple site s without tophus M1A.09X0 ; Essential hypertension I10 and Anticoagulant long-term use Z79.01 [place] [address] [facility] [id number] [address] [place] [phone] 05 Jun, 2017 Anticoagulant long-term use Z79.01 and Essential hypertension I10 [place] [address] [facility] [id number] [address] [place] [id number] May, Idiopathic chronic gout of m ultiple 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 tophus M1A.09X0 [place] [address] [facility] [id number] [address] [place] [id number] May, [place] [address] [facility] [id number] [address] [place] [phone] May, Essential hypertension I10 ; Pure hypercholesterolemia E78.00 ; Anticoagulant long-term use Z79.01 and 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.09X0 [place] [address] [facility] [id number] [address] [place] [phone] May, Other chronic pain G89.29 [place] [address] [facility] [id number] [address] [place] [id number] May, Anticoagulant long-term use Z79.01 [place] [address] [place] [id number] [address] [place] [phone] May, Chronic prescription opiate use Z79.899 ; Other chronic pain G89.29 ; Essential hypertension I10 ; Factor V Leiden D68.51 ; Anticoagulant long-term use Z79.01 ; Pure hypercholesterolemia E78.00 ; Venous stasis ulcers, left I83.029 ; 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.09X0 and Cellulitis of left lower extremity L03.116 [place] [address] [facility] [id number] [address] [place] [phone] Apr, Other chronic pain G89.29 [facility] [address] [facility] [id number] [address] [place] [address] Mar, Other chronic pain G89.29 [facility] [address] [facility] [id number] [address] [place] [address] Mar, Factor V Leiden D68.51 ; Pur e hypercholesterolemia E78.00 and Other chronic pain G89.29 [facility] [address] [facility] [id number] [address] [place] [address] Feb, Other chronic pain G89.29 [facility] [address] [facility] [id number] [address] [place] [address] Jan, Idiopathic chronic gout of m ultiple 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 tophus M1A.09X0 [facility] [address] [facility] [id number] [address] [place] [address] Jan, Other chronic pain G89.29 [facility] [address] [place] [id number] [address] [place] [address] Dec, Anticoagulant long-term use Z79.01 ; Factor V Leiden D68.51 and Other chronic pain G89.29 [facility] [address] [facility] [id number] [address] [place] [address] Dec, Other chronic pain G89.29 [facility] [address] [facility] [id number] [address] [place] [address] Nov, Other chronic pain G89.29 [facility] [address] [place] [id number] [address] [place] [address] Oct, Other chronic pain G89.29 [facility] [address] [facility] [id number] [address] [place] [address] Sep, Anticoagulant long-term use Z79.01 [facility] [address] [facility] [id number] [address] [place] [address] Sep, Chronic prescription opiate use Z79.899 ; Anticoagulant long-term use Z79.01 ; Essential hypertension I10 ; Pure hypercholesterolemia E78.00 ; Factor V Leiden D68.51 ; Venous stasis ulcers, left I83.029 ; Other chronic pain G89.29 and 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.09X0 [facility] [address] [id number] [address] [place] [address] Aug, Anticoagulant long-term use Z79.01 [facility] [address] [facility] [id number] [address] [place] [address] Aug, Other chronic pain G89.29 [facility] [address] [facility] [id number] [address] [place] [address] Aug, Essential hypertension I10 a nd Factor V Leiden D68.[address] [place] [place] [address] [id number] [id number] 15 Aug, 2016 Acute right ankle pain M25.571 and Tendo nitis of ankle M77.50 [facility] [address] [facility] [id number] [address] [place] [address] Aug, [facility] [address] [facility] [id number] [address] [place] [address] July, Other chronic pain G89.29 [facility] [address] [facility] [id number] [address] [place] [address] Jun, Other chronic pain G89.29 [facility] [address] [facility] [id number] [address] [place] [address] Jun, Other chronic pain G89.29 [facility] [address] [id number] [address] [place] [address] Jun, Anticoagulant long-term use Z79.01 [facility] [address] [facility] [id number] [address] [place] [address] May, Other chronic pain G89.29 [facility] [address] [facility] [id number] [address] [place] [address] May, Anticoagulant long-term use Z79.01 [facility] [address] [facility] [id number] [address] [place] [address] May, Other chronic pain G89.29 [facility] [address] [facility] [id number] [address] [place] [address] 06 Apr, 2016 Anticoagulant long-term use Z79.01 [facility] [address] [facility] [id number] [address] [place] [address] Apr, Other chronic pain G89.29 [facility] [address] [facility] [id number] [address] [place] [address] Apr, Anticoagulant long-term use Z79.01 and Pure hypercholesterolemia E78.00 [place] [address] [facility] [id number] [address] [place] [address] Mar, [place] [address] [address] Mar, Anticoagulant long-term use Z79.01 [place] [address] [facility] [id number] [address] [place] [address] Mar, Other chronic pain G89.29 [place] [address] [place] [id number] [address] [place] [address] Feb, Essential hypertension I10 ; Chronic prescription opiate use Z79.899 ; Other chronic pain G89.29 ; Screening Z13.9 ; Factor V Leiden D68.51 ; Anticoagulant long-term use Z79.01 ; Venous stasis dermatitis of left lower extremity I83.12 and Pure hypercholesterolemia E78.00 [place] [address] [facility] [id number] [address] [place] [address] Jan, Anticoagulant long-term use Z79.01 [place] [address] [facility] [id number] [address] [place] [address] Jan, Anticoagulant long-term use Z79.01 [place] [address] [place] [id number] [address] [place] [address] Jan, [place] [address] [facility] [id number] [address] [place] [address] Jan, [facility] [address] [facility] [id number] [address] [place] [address] Dec, [facility] [address] [facility] [id number] [address] [place] [address] Nov, [facility] [address] [facility] [id number] [address] [place] [address] Oct, Anticoagulant long-term use Z79.01 [facility] [address] [facility] [id number] [address] [place] [address] Oct, [facility] [address] [facility] [id number] [address] [place] [address] Oct, Anticoagulant long-term use Z79.01 [facility] [address] [facility] [id number] [address] [place] [address] Sep, [facility] [address] [facility] [id number] [address] [place] [address] Aug, [facility] [address] [facility] [id number] [address] [place] [address] Aug, Chronic prescription opiate use Z79.899 ; Other chronic pain G89.29 ; Essential hypertension I10 and Pure hypercholesterolemia E78.0 [facility] [address] [facility] [id number] [address] [place] [address] July, Hyperlipidemia, group D E78. 3 and Anticoagulant long-term use Z79.01 [facility] [address] [facility] [id number] [address] [place] [address] July, Hyperlipidemia, group D E78. 3 ; Essential hypertension I10 and Factor V Leiden D68.51 [facility] [address] [facility] [id number] [address] [place] [address] July, Essential hypertension I10 [facility] [address] [facility] [id number] [address] [place] [address] Jun, Hyperlipidemia, group D E78. 3 [facility] [address] [facility] [id number] [address] [place] [address] Jun, Factor V Leiden D68.51 [facility] [address] [facility] [id number] [address] [place] [address] May, Factor V Leiden D68.51 ; Hyp erlipidemia, group D E78.3 ; Essential hypertension I10 ; Other chronic pain G89.29 and Anticoagulant long-term use Z79.01 [facility] [address] [id number] [address] [place] [address] May, Anticoagulant long-term use Z79.01 [facility] [address] [facility] [id number] [address] [place] [address] May, Anticoagulant long-term use Z79.01 [facility] [address] [facility] [id number] [address] [place] [address] May, [facility] [address] [facility] [id number] [address] [place] [address] Apr, [facility] [address] [facility] [id number] [address] [place] [address] Mar, [facility] [address] [facility] [id number] [address] [place] [address] Mar, [facility] [address] [facility] [id number] [address] [place] [address] Feb, Anticoagulant long-term use Z79.01 [facility] [address] [facility] [id number] [address] [place] [address] Feb, Chronic prescription opiate use Z79.899 ; Other chronic pain G89.29 ; Hyperlipidemia, group D E78.3 ; Factor V Leiden D68.51 and Anticoagulant long- term use Z79.01 [facility] [address] [facility] [id number] [address] [place] [address] Feb, [facility] [address] [facility] [id number] [address] [place] [address] Jan, [facility] [address] [facility] [id number] [address] [place] [address] Dec, Hyperlipidemia, unspecified E78.5 [facility] [address] [facility] [id number] [address] [place] [address] Dec, Cellulitis of left lower ext remity L03.116 ; Venous stasis ulcers, left I83.029 and Factor V Leiden D68.51 [facility] [address] [facility] [id number] [address] [place] [address] Dec, Hyperlipidemia 272.4 and Fac tor 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 [facility] [address] [facility] [id number] [address] [place] [address] Dec, [facility] [address] [place] [id number] [address] [place] [address] Nov, 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 [facility] [address] [facility] [id number] [address] [place] [address] Nov, [facility] [address] [facility] [id number] [address] [place] [address] Nov, [facility] [address] [place] [id number] [address] [place] [address] Nov, [facility] [address] [facility] [id number] [address] [place] [address] Oct, [facility] [address] [place] [id number] [address] [place] [address] Oct, Hyperlipidemia 272.4 ; Chron ic pain disorder 338.4 ; Venous stasis ulcer of left lower extremity 454.0 and 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 [facility] [address] [facility] [id number] [address] [place] [address] Sep, [facility] [address] [facility] [id number] [address] [place] [address] Sep, [facility] [address] [facility] [id number] [address] [place] [address] 13 Sep, 2014 Hyperlipidemia 272.4 and Fac tor 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 [facility] [address] [id number] [address] [place] [address] Aug, [facility] [address] [facility] [id number] [address] [place] [address] Aug, 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 [facility] [address] [facility] [id number] [address] [place] [address] July, [facility] [address] [facility] [id number] [address] [place] [address] July, Essential hypertension, fito gn 401.1 ; 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 ; Chronic pain disorder 338.4 ; Hyperlipidemia 272.4 and Venous stasis ulcer of left lower extremity 454.0 [facility] [address] [place] [id number] [address] [place] [address] 14 Jun, 2014 [facility] [address] [facility] [id number] [address] [place] [address] Jun, [facility] [address] [facility] [id number] [address] [place] [address] May, [facility] [address] [facility] [id number] [address] [place] [address] May, [facility] [address] [facility] [id number] [address] [place] [address] Apr, [facility] [address] [facility] [id number] [address] [place] [address] Apr, [facility] [address] [facility] [id number] [address] [place] [address] Apr, [facility] [address] [facility] [id number] [address] [place] [address] 18 Apr, 2014 [facility] [address] [facility] [id number] [address] [place] [address] 13 Apr, 2014 [facility] [address] [id number] [address] [place] [address], [place] [address] 13 Apr, 2014 [facility] [address] [id number] [address] [place] [address], [place] [address] 15 Mar, 2014 [facility] [address] [id number] [address] [place] [address], [place] [address] 15 Mar, 2014 [facility] [address] [id number] [address] [place] [address], [place] [address] Mar, [facility] [address] [id number] [address] [place] [address], [place] [address] Mar, [facility] [address] [id number] [address] [place] [address], [place] [address] 17 Feb, 2014 [facility] [address] [id number] [address] [place] [address], [place] [address] 17 Feb, 2014 [facility] [address] [id number] [address] [place] [address], [place] [address] 16 Feb, 2014 [facility] [address] [id number] [address] [place] [address], [place] [address] Feb, [facility] [address] [id number] [address] [place] [address], [place] [address] 24 Jan, 2014 [facility] [address] [id number] [address] [place] [address], [place] [address] Jan, [facility] [address] [id number] [address] [place] [address], [place] [address] 19 Jan, 2014 [facility] [address] [id number] [address] [place] [address], [place] [address] 14 Jan, 2014 [facility] [address] [id number] [address] [place] [address], [place] [address] 14 Jan, 2014 [facility] [address] [id number] [address] [place] [address], [place] [address] 12 Jan, 2014 [facility] [address] [id number] [address] [place] [address], [place] [address] Dec, [facility] [address] [id number] [address] [place] [address], [place] [address] Dec, [facility] [address] [id number] [address] [place] [address], [place] [address] Oct, [facility] [address] [id number] [address] [place] [address], [place] [address] Oct, [facility] [address] [id number] [address] [place] [address], [place] [address] Sep, [facility] [address] [id number] [address] [place] [address], [place] [address] Sep, [facility] [address] [id number] [address] [place] [address], [place] [address] Sep, [facility] [address] [id number] [address] [place] [address], [place] [address] Sep, [facility] [address] [id number] [address] [place] [address], [place] [address] Aug, [facility] [address] [id number] [address] [place] [address], [place] [address] Aug, [facility] [address] [id number] [address] [place] [address], [place] [address] July, [facility] [address] [id number] [address] [place] [address], [place] [address] July, [facility] [address] [id number] [address] [place] [address], [place] [address] Jun, [facility] [address] [id number] [address] [place] [address], [place] [address] Jun, [facility] [address] [id number] [address] [place] [address], [place] [address] May, [facility] [address] [id number] [address] [place] [address], [place] [address] May, [facility] [address] [id number] [address] [place] [address], [place] [address] Apr, [facility] [address] [id number] [address] [place] [address], [place] [address] Apr, [facility] [address] [id number] [address] [place] [address], [place] [address] Mar, [facility] [address] [id number] [address] [place] [address], [place] [address] Mar, [facility] [address] [id number] [address] [place] [address], [place] [address] Jan, [facility] [address] [id number] [address] [place] [address], [place] [address] Jan, [facility] [address] [id number] [address] [place] [address], [place] [address] Jan, [facility] [address] [id number] [address] [place] [address], [place] [address] Jan, [facility] [address] [id number] [address] [place] [address], [place] [address] Jan, [facility] [address] [id number] [address] [place] [address], [place] [address] Dec, [facility] [address] [id number] [address] [place] [address], [place] [address] Dec, [facility] [address] [id number] [address] [place] [address], [place] [address] Dec, [facility] [address] [id number] [address] [place] [address], [place] [address] Nov, [facility] [address] [id number] [address] [place] [address], [place] [address] Nov, [facility] [address] [id number] [address] [place] [address], [place] [address] Sep, [facility] [address] [id number] [address] [place] [address] Sep, [facility] [address] [facility] [id number] [address] [place] [address] Aug, [facility] [address] [facility] [id number] [address] [place] [address] Aug, [facility] [address] [id number] [place] [id number] July, [facility] [address] [id number] [place] [id number] Jun, [facility] [address] [id number] [place] [id number] Apr, [facility] [address] [id number] [place] [id number] Mar, [facility] [address] [facility] [id number] [address] [place] [address] Mar, [facility] [address] [id number] [place] [id number] Mar, [facility] [address] [facility] [id number] [address] [place] [address] Mar, [facility] [address] [id number] [place] [id number] Feb, [facility] [address] [facility] [id number] [address] [place] [address] Feb, [facility] [address] [id number] [place] [id number] Feb, [facility] [address] [facility] [id number] [address] [place] [address] Feb, [facility] [address] [id number] [place] [id number] Oct, [facility] [address] [id number] [place] [id number] Oct, [facility] [place] [address] [id number] [place] [id number] July, [facility] [place] [address] [id number] [place] [id number] July, [facility] [address] [id number] [place] [id number] Jun, [facility] [place] [address] [id number] [place] [id number] Jun, [facility] [place] [address] [id number] [place] [id number] Jun, [facility] [place] [address] [id number] [place] [id number] Mar, [facility] [address] [id number] [place] [id number] Mar, [facility] [address] [facility] [id number] [address] [place] [phone] Feb, [facility] [address] [facility] [id number] [address] [place] [phone] Feb, [facility] [address] [facility] [id number] [address] [place] [phone] Jan, [facility] [address] [facility] [id number] [address] [place] [phone] Jan, [facility] [address] [facility] [id number] [address] [place] [phone] Jan, [facility] [address] [facility] [id number] [address] [place] [phone] Jan, [facility] [address] [facility] [id number] [address] [place] [phone] Jan, [facility] [address] [facility] [id number] [address] [place] [phone] Aug, [facility] [address] [facility] [id number] [address] [place] [phone] Apr, IMMUNIZATIONS No Known Immunizations SOCIAL HISTORY Never Assessed REASON FOR VISIT PLAN OF CARE VITAL SIGNS MEDICATIONS Unknown Medications RESULTS No Results PROCEDURES Procedure Date Ordered Result Body Site PROTHROMBIN TIME Jan 18, 2013 INSTRUCTIONS MEDICATIONS ADMINISTERED No Known Medications MEDICAL [...]
--- OUTSIDE RECORDS SUMMARY | 2019-11-08 12:53 | XMS REPORT ---
Author Author Zana Mojica Doctor Organization [facility] Address Unknown Phone Unavailable Care Team Providers Care Lens Coater Name Role Phone Migration, Doctor Unavailable Unavailable PROBLEMS Type Condition ICD9-CM Code VYD98-GZ Code Onset Dates Condition S tatus SNOMED Code Problem Factor V Leiden D68.51 Active 3070 13198 Problem Anticoagulant long-term use Z79.01 Ac tive 193825167 Problem Post-phlebitic syndrome I87.009 Active 61914225 Problem 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 72558131 Problem Other chronic pain G89.29 Active 8 4559388 Problem Venous stasis ulcers, left I83.029 Act ozzy 662510593 Problem Essential hypertension I10 Active 61590720 Problem Venous anomaly Q27.9 Active 50891 4003 Problem Congenital single kidney Q60.0 Activ e 17706380 Problem Chronic prescription opiate use Z79.899 Active 372678757 Problem Pure hypercholesterolemia E78.00 Acti ve [id number] ALLERGIES No Information ENCOUNTERS Encounter Location Date Diagnosis [place] [address] [facility] [id number] [address] [place] [phone] Oct, [place] [address] [place] [address] 08 Sep, 2019 Anticoagulant long-term use Z79.01 [place] [address] [facility] [id number] [address] [place] [id number] 07 Sep, 2019 Anticoagulant long-term use Z79.01 [place] [address] [facility] [id number] [address] [place] [id number] 06 Sep, 2019 Other chronic pain G89.29 [place] [address] [facility] [id number] [address] [place] [phone] Aug, [place] [address] [facility] [id number] [address] [place] [id number] 08 Aug, 2019 Other chronic pain G89.29 [facility] [address] [facility] [id number] [address] [place] [phone] 04 Aug, 2019 [facility] [address] [facility] [id number] [address] [place] [id number] Aug, Anticoagulant long-term use Z79.01 [facility] [address] [facility] [id number] [address] [place] [phone] Aug, Other chronic pain G89.29 [place] [id number] [facility] [id number] [place] [id number] July, Anticoagulant long-term use Z79.01 [facility] [address] [facility] [id number] [address] [place] [phone] July, [facility] [address] [facility] [id number] [address] [place] [phone] July, [facility] [address] [facility] [id number] [address] [place] [phone] July, Other chronic pain G89.29 [facility] [address] [facility] [id number] [address] [place] [id number] July, Other chronic pain G89.29 [facility] [address] [facility] [id number] [address] [place] [id number] July, Other chronic pain G89.29 [facility] [address] [facility] [id number] [address] [place] [phone] July, Essential hypertension I10 ; Venous stasis ulcers, left I83.029 ; Other chronic pain G89.29 ; Factor V Leiden D68.51 and 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.09X0 [facility] [address] [facility] [id number] [address] [place] [phone] Jun, Other chronic pain G89.29 [facility] [address] [facility] [id number] [address] [place] [address] Jun, Anticoagulant long-term use Z79.01 [facility] [address] [id number][place] [id number] May, Anticoagulant long-term use Z79.01 [facility] [address] [facility] [id number] [address] [place] [address] May, Other chronic pain G89.29 [place] [address] [place] [phone] May, Anticoagulant long-term use Z79.01 [facility] [address] [id number], [place] [id number] Apr, Anticoagulant long-term use Z79.01 [place] [address] [facility] [id number] [address] [place] [id number] Apr, Other chronic pain G89.29 [place] [address] [place] [address] Apr, Anticoagulant long-term use Z79.01 [facility] [address] [id number][place] [id number] Apr, Anticoagulant long-term use Z79.01 [facility] [address] [id number], [place] [id number] Apr, Factor V Leiden D68.51 [place] [address] [place] [address] Mar, Anticoagulant long-term use Z79.01 [place] [address] [facility] [id number] [address] [place] [address] Mar, Factor V Leiden D68.51 [place] [address] [place] [id number] [address] [place] [address] Mar, Occult blood positive stool R19.5 [place] [address] [place] [id number] [address] [place] [address] Mar, Other chronic pain G89.29 [place] [address] [place] [id number] [address] [place] [phone] Mar, Factor V Leiden D68.51 and A nticoagulant long-term use Z79.01 [facility] [address] [id number], [place] [id number] Mar, Anticoagulant long-term use Z79.01 [facility] [address] [id number][place] [id number] Mar, Anticoagulant long-term use Z79.01 [place] [address] [facility] [id number] [address] [place] [address] Mar, Anticoagulant long-term use Z79.01 [place] [address] [place] [phone] Mar, Pure hypercholesterolemia E7 8.00 [facility] [id number] [place] [address] [id number] Mar, Anticoagulant long-term use Z79.01 [place] [address] [place] [id number] [address] [place] [address] Mar, Other chronic pain G89.29 [place] [address] [place] [id number] [address] [place] [phone] Feb, Anticoagulant long-term use Z79.01 and Essential hypertension I10 [place] [address] [place] [address] Feb, Anticoagulant long-term use Z79.01 ; Essential hypertension I10 ; Chronic prescription opiate use Z79.899 ; Other chronic pain G89.29 ; Venous stasis ulcers, left I83.029 ; 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.09X0 and Pure hypercholesterolemia E78.00 [facility] [id number] [place] [address] [id number] Feb, Anticoagulant long-term use Z79.01 [place] [address] [place] [id number] [address] [place] [phone] Feb, Anticoagulant long-term use Z79.01 [facility] [address] [facility] [id number] [address] [place] [address] Feb, Other chronic pain G89.[address] [facility] [address] [id number], [place] [id number] Feb, Anticoagulant long-term use Z79.01 [facility] [address] [facility] [id number] [address] [place] [phone] Jan, Anticoagulant long-term use Z79.[address] [facility] [address] [id number], [place] [id number] Jan, Anticoagulant long-term use Z79.[address] [facility] [address] [id number], [place] [id number] Jan, Anticoagulant long-term use Z79.01 [facility] [address] [facility] [id number] [address] [place] [address] Jan, Anticoagulant long-term use Z79.01 [facility] [address] [id number], [place] [id number] Jan, Anticoagulant long-term use Z79.01 [facility] [address] [facility] [id number] [address] [place] [phone] Jan, Anticoagulant long-term use Z79.01 [facility] [address] [id number], [place] [id number] Jan, Anticoagulant long-term use Z79.01 [facility] [address] [facility] [id number] [address] [place] [phone] Jan, [facility] [address] [id number], [place] [id number] Jan, Anticoagulant long-term use Z79.01 [facility] [address] [facility] [id number] [address] [place] [phone] Jan, [facility] [address] [facility] [id number] [address] [place] [phone] Jan, Other chronic pain G89.29 [facility] [address] [id number] [address] [place] [address] Jan, Anticoagulant long-term use Z79.[address] [facility] [address] [id number], [place] [id number] Dec, Anticoagulant long-term use Z79.01 [facility] [address] [id number] [address] [place] [address] Dec, Anticoagulant long-term use Z79.01 [facility] [address] [id number], [place] [id number] Dec, Anticoagulant long-term use Z79.01 [facility] [address] [id number], [place] [id number] Dec, Anticoagulant long-term use Z79.01 [facility] [address] [facility] [id number] [address] [place] [id number] Dec, Anticoagulant long-term use Z79.01 [facility] [address] [facility] [id number] [address] [place] [phone] Dec, Anticoagulant long-term use Z79.01 [facility] [address] [id number] [address] [place] [phone] Dec, Anticoagulant long-term use Z79.01 [facility] [address] [facility] [id number] [address] [place] [id number] Dec, Other chronic pain G89.29 [facility] [address] [id number] [address] [place] [phone] Dec, Anticoagulant long-term use Z79.01 [facility] [address] [id number] [address] [place] [phone] Dec, [facility] [address] [facility] [id number] [address] [place] [phone] Dec, Other chronic pain G89.29 [facility] [address] [id number], [place] [id number] Dec, Anticoagulant long-term use Z79.01 [place] [address] [facility] [id number] [address] [place] [phone] Nov, Anticoagulant long-term use Z79.01 [facility] [address] [id number], [place] [id number] Nov, Anticoagulant long-term use Z79.01 [facility] [address] [facility] [id number] [address] [place] [phone] Nov, Anticoagulant long-term use Z79.01 [place] [address] [facility] [id number] [address] [place] [address] Nov, Other chronic pain G89.29 [place] [address] [place] [address] Nov, Other chronic pain G89.29 [place] [address] [place] [id number] [address] [place] [phone] Nov, Anticoagulant long-term use Z79.01 [facility] [address] [id number], [place] [id number] Nov, Factor V Leiden D68.51 [facility] [address] [id number], [place] [id number] Nov, Factor V Leiden D68.51 [place] [address] [facility] [id number] [address] [place] [phone] Nov, Anticoagulant long-term use Z79.01 [facility] [address] [id number], [place] [id number] Nov, Anticoagulant long-term use Z79.01 [place] [address] [facility] [id number] [address] [place] [phone] Nov, Essential hypertension I10 ; Factor V Leiden D68.51 and Anticoagulant long-term use Z79.01 [facility] [address] [id number], [place] [id number] Oct, Anticoagulant long-term use Z79.01 [facility] [address] [facility] [id number] [address] [place] [phone] Oct, [facility] [address] [facility] [id number] [address] [place] [phone] Oct, Anticoagulant long-term use Z79.01 [facility] [address] [facility] [id number] [address] [place] [id number] Oct, Other chronic pain G89.29 [facility] [address] [facility] [id number] [address] [place] [phone] Oct, Anticoagulant long-term use Z79.01 [facility] [address] [facility] [id number] [address] [place] [phone] Oct, [facility] [address] [facility] [id number] [address] [place] [address] Sep, Anticoagulant long-term use Z79.01 [place] [id number] [facility] [address] [id number], [place] [id number] Sep, Anticoagulant long-term use Z79.01 [facility] [address] [facility] [id number] [address] [place] [address] Sep, Other chronic pain G89.29 [facility] [address] [facility] [id number] [address] [place] [phone] Sep, Anticoagulant long-term use Z79.01 [facility] [address] [id number], [place] [id number] Sep, Anticoagulant long-term use Z79.01 [facility] [address] [facility] [id number] [address] [place] [address] Aug, Anticoagulant long-term use Z79.01 [facility] [address] [facility] [id number] [address] [place] [id number] Aug, Anticoagulant long-term use Z79.01 [facility] [address] [facility] [id number] [address] [place] [phone] Aug, Other chronic pain G89.29 [facility] [address] [facility] [id number] [address] [place] [phone] Aug, Other chronic pain G89.29 ; Anticoagulant long-term use Z79.01 ; 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.09X0 ; Oral pain K13.79 ; Dental infection K04.7 ; Essential hypertension I10 and Pure hypercholesterolemia E78.00 [facility] [address] [facility] [id number] [address] [place] [address] July, Other chronic pain G89.29 [facility] [address] [facility] [id number] [address] [place] [address] Jun, Other chronic pain G89.29 [facility] [address] [facility] [id number] [address] [place] [phone] Jun, [facility] [address] [facility] [id number] [address] [place] [address] Jun, [facility] [address] [id number], [place] [id number] Jun, Anticoagulant long-term use Z79.01 and I diopathic chronic gout of multiple 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 tophus M1A.09X0 [place] [address] [facility] [id number] [address] [place] [phone] May, Other chronic pain G89.29 [facility] [address] [facility] [id number] [address] [place] [phone] May, [facility] [address] [facility] [id number] [address] [place] [address] May, Anticoagulant long-term use Z79.01 [facility] [address] [facility] [id number] [address] [place] [address] May, [facility] [address] [id number], [place] [id number] May, Anticoagulant long-term use Z79.01 [facility] [address] [facility] [id number] [address] [place] [address] May, Anticoagulant long-term use Z79.01 [facility] [address] [facility] [id number] [address] [place] [address] May, Anticoagulant long-term use Z79.01 [facility] [address] [id number], [place] [id number] May, Factor V Leiden D68.51 [place] [address] [facility] [id number] [address] [place] [phone] Apr, Other chronic pain G89.29 [place] [address] [facility] [id number] [address] [place] [phone] Apr, Idiopathic chronic gout of m ultiple 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 tophus M1A.09X0 [facility] [address] [id number], [place] [id number] Apr, Anticoagulant long-term use Z79.01 [facility] [address] [facility] [address] [id number], [place] [id number] Apr, Anticoagulant long-term use Z79.01 ; Med ication side effect T88.7XXA and 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.09X0 [place] [address] [facility] [id number] [address] [place] [address] Apr, [place] [address] [facility] [id number] [address] [place] [address] Apr, Anticoagulant long-term use Z79.01 [place] [address] [facility] [id number] [address] [place] [address] Apr, Medication side effect T88.7 XXA and Factor V Leiden D68.51 [place] [address] [facility] [id number] [address] [place] [address] Apr, Idiopathic chronic gout of m ultiple 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 tophus M1A.09X0 and Anticoagulant long-term use Z79.01 [facility] [address] [id number], [place] [id number] Mar, Factor V Leiden D68.51 and Anticoagulant long-term use Z79.01 [facility] [address] [facility] [id number] [address] [place] [address] Mar, Factor V Leiden D68.51 ; Ant icoagulant long-term use Z79.01 ; 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.09X0 ; Pure hypercholesterolemia E78.00 ; Other chronic pain G89.29 and BMI 40.0-44.9, adult Z68.41 [place] [address] [facility] [id number] [address] [place] [address] Mar, [place] [address] [facility] [id number] [address] [place] [address] Mar, Other chronic pain G89.29 [facility] [address] [facility] [id number] [address] [place] [phone] Feb, Idiopathic chronic gout of m ultiple 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 tophus M1A.09X0 [facility] [address] [id number], [place] [id number] Feb, Anticoagulant long-term use Z79.01 and I diopathic chronic gout of multiple 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 tophus M1A.09X0 [facility] [address] [facility] [id number] [address] [place] [address] Feb, Anticoagulant long-term use Z79.01 and 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.09X0 [place] [address] [facility] [id number] [address] [place] [phone] Feb, [facility] [address] [facility] [id number] [address] [place] [phone] Feb, Other chronic pain G89.29 [facility] [address] [id number] [address] [place] [address] Jan, Other chronic pain G89.29 [facility] [address] [facility] [id number] [address] [place] [phone] Dec, Other chronic pain G89.29 [facility] [address] [id number] [address] [place] [phone] 05 Dec, 2017 Anticoagulant long-term use Z79.01 [facility] [address] [facility] [id number] [address] [place] [address] Dec, Chronic prescription opiate use Z79.899 ; Factor V Leiden D68.51 ; Other chronic pain G89.29 and Anticoagulant long-term use Z79.01 [facility] [address] [facility] [id number] [address] [place] [phone] Nov, Other chronic pain G89.29 [facility] [address] [facility] [id number] [address] [place] [id number] Oct, Other chronic pain G89.29 [facility] [address] [id number] [address] [place] [id number] Sep, Other chronic pain G89.29 [facility] [address] [id number] [address] [place] [phone] Aug, Other chronic pain G89.29 [facility] [address] [id number] [address] [place] [phone] Aug, Venous stasis ulcers, left I 83.029 [facility] [address] [id number] [address] [place] [phone] July, Other chronic pain G89.29 [facility] [address] [id number] [address] [place] [id number] July, Venous stasis ulcers, left I 83.029 and Snoring R06.83 [facility] [address] [id number] [address] [place] [id number] Jun, Idiopathic chronic gout of m ultiple 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 tophus M1A.09X0 [facility] [address] [facility] [id number] [address] [place] [phone] Jun, Acute renal insufficiency N2 8.9 [facility] [address] [facility] [id number] [address] [place] [phone] Jun, Other chronic pain G89.29 [facility] [address] [facility] [id number] [address] [place] [phone] Jun, Acute renal insufficiency N2 8.[address] [place] [id number] [place] [address] [id number] 16 Jun, 2017 Idiopathic chronic gout of multiple site s without tophus M1A.09X0 ; Essential hypertension I10 and Anticoagulant long-term use Z79.01 [place] [address] [facility] [id number] [address] [place] [phone] Jun, Anticoagulant long-term use Z79.01 and Essential hypertension I10 [facility] [address] [facility] [id number] [address] [place] [phone] May, Idiopathic chronic gout of m ultiple 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 tophus M1A.09X0 [place] [address] [facility] [id number] [address] [place] [phone] May, [facility] [address] [facility] [id number] [address] [place] [phone] May, Essential hypertension I10 ; Pure hypercholesterolemia E78.00 ; Anticoagulant long-term use Z79.01 and 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.09X0 [facility] [address] [facility] [id number] [address] [place] [phone] May, Other chronic pain G89.29 [facility] [address] [facility] [id number] [address] [place] [phone] May, Anticoagulant long-term use Z79.01 [facility] [address] [facility] [id number] [address] [place] [id number] May, Chronic prescription opiate use Z79.899 ; Other chronic pain G89.29 ; Essential hypertension I10 ; Factor V Leiden D68.51 ; Anticoagulant long-term use Z79.01 ; Pure hypercholesterolemia E78.00 ; Venous stasis ulcers, left I83.029 ; 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.09X0 and Cellulitis of left lower extremity L03.116 [facility] [address] [facility] [id number] [address] [place] [phone] Apr, Other chronic pain G89.29 [facility] [address] [id number] [address] [place] [phone] Mar, Other chronic pain G89.29 [place] [address] [facility] [id number] [address] [place] [address] Mar, Factor V Leiden D68.51 ; Pur e hypercholesterolemia E78.00 and Other chronic pain G89.29 [place] [address] [facility] [id number] [address] [place] [phone] Feb, Other chronic pain G89.29 [facility] [address] [facility] [id number] [address] [place] [address] Jan, Idiopathic chronic gout of m ultiple 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 tophus M1A.09X0 [facility] [address] [facility] [id number] [address] [place] [phone] Jan, Other chronic pain G89.29 [place] [address] [facility] [id number] [address] [place] [phone] Dec, Anticoagulant long-term use Z79.01 ; Factor V Leiden D68.51 and Other chronic pain G89.29 [place] [address] [facility] [id number] [address] [place] [address] Dec, Other chronic pain G89.29 [place] [address] [facility] [id number] [address] [place] [phone] Nov, Other chronic pain G89.29 [place] [address] [facility] [id number] [address] [place] [phone] Oct, Other chronic pain G89.29 [facility] [address] [facility] [id number] [address] [place] [phone] Sep, Anticoagulant long-term use Z79.01 [facility] [address] [facility] [id number] [address] [place] [address] Sep, Chronic prescription opiate use Z79.899 ; Anticoagulant long-term use Z79.01 ; Essential hypertension I10 ; Pure hypercholesterolemia E78.00 ; Factor V Leiden D68.51 ; Venous stasis ulcers, left I83.029 ; Other chronic pain G89.29 and 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.09X0 [facility] [address] [facility] [id number] [address] [place] [phone] Aug, Anticoagulant long-term use Z79.01 [place] [address] [facility] [id number] [address] [place] [address] Aug, Other chronic pain G89.29 [facility] [address] [facility] [id number] [address] [place] [address] Aug, Essential hypertension I10 a nd Factor V Leiden D68.[id number] [place] [address] [id number] 15 Aug, 2016 Acute right ankle pain M25.571 and Tendo nitis of ankle M77.50 [facility] [address] [facility] [id number] [address] [place] [phone] Aug, [facility] [address] [facility] [id number] [address] [place] [phone] July, Other chronic pain G89.29 [place] [address] [facility] [id number] [address] [place] [address] Jun, Other chronic pain G89.29 [facility] [address] [facility] [id number] [address] [place] [phone] Jun, Other chronic pain G89.29 [facility] [address] [facility] [id number] [address] [place] [phone] Jun, Anticoagulant long-term use Z79.01 [facility] [address] [facility] [id number] [address] [place] [phone] May, Other chronic pain G89.29 [facility] [address] [facility] [id number] [address] [place] [address] May, Anticoagulant long-term use Z79.01 [facility] [address] [facility] [id number] [address] [place] [phone] May, Other chronic pain G89.29 [facility] [address] [facility] [id number] [address] [place] [phone] Apr, Anticoagulant long-term use Z79.01 [facility] [address] [facility] [id number] [address] [place] [phone] Apr, Other chronic pain G89.29 [facility] [address] [facility] [id number] [address] [place] [address] Apr, Anticoagulant long-term use Z79.01 and Pure hypercholesterolemia E78.00 [place] [address] [facility] [id number] [address] [place] [id number] Mar, [facility] [address] [facility] [id number] [address] [place] [phone] Mar, Anticoagulant long-term use Z79.01 [facility] [address] [facility] [id number] [address] [place] [phone] Mar, Other chronic pain G89.29 [facility] [address] [facility] [id number] [address] [place] [address] Feb, Essential hypertension I10 ; Chronic prescription opiate use Z79.899 ; Other chronic pain G89.29 ; Screening Z13.9 ; Factor V Leiden D68.51 ; Anticoagulant long-term use Z79.01 ; Venous stasis dermatitis of left lower extremity I83.12 and Pure hypercholesterolemia E78.00 [facility] [address] [id number] [address] [place] [phone] 14 Jan, 2016 Anticoagulant long-term use Z79.01 [facility] [address] [id number] [address] [place] [phone] 10 Jan, 2016 Anticoagulant long-term use Z79.01 [facility] [address] [facility] [id number] [address] [place] [phone] Jan, [facility] [address] [facility] [id number] [address] [place] [phone] Jan, [facility] [address] [facility] [id number] [address] [place] [id number] Dec, [facility] [address] [facility] [id number] [address] [place] [phone] Nov, [facility] [address] [facility] [id number] [address] [place] [id number] Oct, Anticoagulant long-term use Z79.01 [facility] [address] [facility] [id number] [address] [place] [phone] Oct, [facility] [address] [facility] [id number] [address] [place] [phone] Oct, Anticoagulant long-term use Z79.01 [facility] [address] [facility] [id number] [address] [place] [phone] Sep, [facility] [address] [facility] [id number] [address] [place] [address] Aug, [facility] [address] [facility] [id number] [address] [place] [address] Aug, Chronic prescription opiate use Z79.899 ; Other chronic pain G89.29 ; Essential hypertension I10 and Pure hypercholesterolemia E78.0 [facility] [address] [facility] [id number] [address] [place] [phone] July, Hyperlipidemia, group D E78. 3 and Anticoagulant long-term use Z79.01 [facility] [address] [facility] [id number] [address] [place] [phone] July, Hyperlipidemia, group D E78. 3 ; Essential hypertension I10 and Factor V Leiden D68.51 [facility] [address] [facility] [id number] [address] [place] [phone] July, Essential hypertension I10 [facility] [address] [facility] [id number] [address] [place] [id number] Jun, Hyperlipidemia, group D E78. 3 [facility] [address] [facility] [id number] [address] [place] [address] Jun, Factor V Leiden D68.51 [facility] [address] [facility] [id number] [address] [place] [phone] May, Factor V Leiden D68.51 ; Hyp erlipidemia, group D E78.3 ; Essential hypertension I10 ; Other chronic pain G89.29 and Anticoagulant long-term use Z79.01 [facility] [address] [facility] [id number] [address] [place] [address] May, Anticoagulant long-term use Z79.01 [facility] [address] [facility] [id number] [address] [place] [address] May, Anticoagulant long-term use Z79.01 [facility] [address] [facility] [id number] [address] [place] [phone] May, [facility] [address] [facility] [id number] [address] [place] [phone] Apr, [facility] [address] [facility] [id number] [address] [place] [phone] Mar, [facility] [address] [facility] [id number] [address] [place] [phone] Mar, [facility] [address] [facility] [id number] [address] [place] [phone] Feb, Anticoagulant long-term use Z79.01 [facility] [address] [facility] [id number] [address] [place] [address] 16 Feb, 2015 Chronic prescription opiate use Z79.899 ; Other chronic pain G89.29 ; Hyperlipidemia, group D E78.3 ; Factor V Leiden D68.51 and Anticoagulant long- term use Z79.01 [facility] [address] [facility] [id number] [address] [place] [id number] 04 Feb, 2015 [facility] [address] [facility] [id number] [address] [place] [phone] Jan, [facility] [address] [facility] [id number] [address] [place] [phone] Dec, Hyperlipidemia, unspecified E78.5 [facility] [address] [facility] [id number] [address] [place] [address] Dec, Cellulitis of left lower ext remity L03.116 ; Venous stasis ulcers, left I83.029 and Factor V Leiden D68.51 [facility] [address] [facility] [id number] [address] [place] [phone] Dec, Hyperlipidemia 272.4 and Fac tor 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 [place] [address] [facility] [id number] [address] [place] [phone] Dec, [facility] [address] [facility] [id number] [address] [place] [phone] Nov, 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 [facility] [address] [facility] [id number] [address] [place] [phone] Nov, [facility] [address] [facility] [id number] [address] [place] [id number] Nov, [place] [address] [place] [id number] [address] [place] [phone] Nov, [facility] [address] [place] [id number] [address] [place] [phone] Oct, [place] [address] [place] [id number] [place] [address] Oct, Hyperlipidemia 272.4 ; Chron ic pain disorder 338.4 ; Venous stasis ulcer of left lower extremity 454.0 and 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 [facility] [address] [facility] [id number] [address] [place] [phone] 14 Sep, 2014 [facility] [address] [facility] [id number] [address] [place] [phone] Sep, [facility] [address] [place] [id number] [place] [address] Sep, Hyperlipidemia 272.4 and Fac tor 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 [facility] [address] [place] [id number] [place] [phone] Aug, [facility] [address] [place] [id number] [address] [place] [phone] Aug, 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 [facility] [address] [place] [id number] [address] [place] [phone] July, [facility] [address] [place] [id number] [address] [place] [phone] July, Essential hypertension, fito gn 401.1 ; 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 ; Chronic pain disorder 338.4 ; Hyperlipidemia 272.4 and Venous stasis ulcer of left lower extremity 454.0 [facility] [address] [place] [id number] [address] [place] [phone] Jun, [facility] [address] [place] [id number] [address] [place] [phone] Jun, [facility] [address] [place] [id number] [address] [place] [phone] May, [facility] [address] [place] [id number] [address] [place] [phone] May, [facility] [address] [place] [id number] [address] [place] [phone] Apr, [facility] [place] [facility] [address] [id number] [address] [place] [address], [place] [address] 20 Apr, 2014 [facility] [place] [facility] [address] [id number] [address] [place] [address], [place] [address] 18 Apr, 2014 [facility] [place] [facility] [address] [id number] [address] [place] [address], [place] [address] 18 Apr, 2014 [facility] [place] [facility] [address] [id number] [address] [place] [address], [place] [address] Apr, [facility] [address] [id number] [address] [place] [address], [place] [address] Apr, [facility] [place] [facility] [address] [id number] [address] [place] [address], [place] [address] 15 Mar, 2014 [facility] [address] [id number] [address] [place] [address], [place] [address] 15 Mar, 2014 [facility] [address] [id number] [address] [place] [address], [place] [address] Mar, [facility] [address] [id number] [address] [place] [address], [place] [address] Mar, [facility] [address] [id number] [address] [place] [address], [place] [address] Feb, [facility] [place] [facility] [address] [id number] [address] [place] [address], [place] [address] 17 Feb, 2014 [facility] [place] [facility] [address] [id number] [address] [place] [phone] 16 Feb, 2014 [facility] [place] [facility] [address] [id number] [address] [place] [address], [place] [address] 16 Feb, 2014 [facility] [place] [facility] [address] [id number] [address] [place] [address], [place] [address] 24 Jan, 2014 [facility] [place] [facility] [address] [id number] [address] [place] [address], [place] [address] 19 Jan, 2014 [facility] [place] [facility] [address] [id number] [address] [place] [phone] Jan, [facility] [address] [id number] [address] [place] [address], [place] [address] Jan, [facility] [place] [facility] [address] [id number] [address] [place] [address], [place] [address] Jan, [facility] [place] [facility] [address] [id number] [address] [place] [address], [place] [address] Jan, [facility] [place] [facility] [address] [id number] [address] [place] [address], [place] [address] Dec, [facility] [place] [facility] [address] [id number] [address] [place] [address], [place] [address] Dec, [facility] [place] [facility] [address] [id number] [address] [place] [address], [place] [address] Oct, [facility] [address] [id number] [address] [place] [address], [place] [address] Oct, [facility] [place] [facility] [address] [id number] [address] [place] [address], [place] [address] Sep, [facility] [place] [facility] [address] [id number] [address] [place] [address], [place] [address] Sep, [facility] [place] [facility] [address] [id number] [address] [place] [address], [place] [address] Sep, [facility] [place] [facility] [address] [id number] [address] [place] [address], [place] [address] Sep, [facility] [place] [facility] [address] [id number] [address] [place] [address], [place] [address] Aug, [facility] [place] [facility] [address] [id number] [address] [place] [address], [place] [address] Aug, [facility] [place] [facility] [address] [id number] [address] [place] [address], [place] [address] July, [facility] [place] [facility] [address] [id number] [address] [place] [address], [place] [address] July, [facility] [place] [facility] [address] [id number] [address] [place] [address], [place] [address] Jun, [facility] [address] [id number] [address] [place] [address], [place] [address] Jun, [facility] [address] [id number] [address] [place] [address], [place] [address] May, [facility] [address] [id number] [address] [place] [address], [place] [address] May, [facility] [address] [id number] [address] [place] [address], [place] [address] Apr, [facility] [address] [id number] [address] [place] [address], [place] [address] Apr, [facility] [address] [id number] [address] [place] [address], [place] [address] Mar, [facility] [address] [id number] [address] [place] [address], [place] [address] Mar, [facility] [address] [id number] [address] [place] [address], [place] [address] Jan, [facility] [address] [id number] [address] [place] [address], [place] [address] Jan, [facility] [address] [id number] [address] [place] [address], [place] [address] Jan, [facility] [address] [id number] [address] [place] [address], [place] [address] Jan, [facility] [address] [id number] [address] [place] [address], [place] [address] Jan, [facility] [place] [facility] [address] [id number] [address] [place] [address], [place] [address] Dec, [facility] [place] [facility] [address] [id number] [address] [place] [address], [place] [address] Dec, [facility] [place] [facility] [address] [id number] [address] [place] [address], [place] [address] Dec, [facility] [address] [id number] [address] [place] [address] Nov, [facility] [address] [id number] [address] [place] [address] Nov, [facility] [address] [facility] [id number] [address] [place] [address] Sep, [facility] [address] [id number] [address] [place] [address] Sep, [facility] [address] [id number] [address] [place] [address] Aug, [facility] [address] [facility] [id number] [address] [place] [address] Aug, [facility] [address] [id number] [place] [id number] July, [facility] [address] [id number] [place] [id number] Jun, [facility] [address] [id number] [place] [id number] Apr, [facility] [address] [id number] [place] [id number] Mar, [facility] [address] [id number] [address] [place] [id number] Mar, [facility] [address] [id number] [place] [id number] Mar, [facility] [address] [id number] [address] [place] [id number] Mar, [facility] [address] [id number] [place] [id number] Feb, [facility] [address] [id number] [address] [place] [address], [place] [address] Feb, [facility] [address] [id number] [place] [id number] Feb, [facility] [address] [id number] [address] [place] [id number] Feb, [facility] [address] [id number] [place] [id number] Oct, [facility] [address] [id number] [place] [id number] Oct, [facility] [address] [id number] [place] [id number] July, [facility] [address] [id number] [place] [id number] July, [facility] [address] [id number] [place] [id number] Jun, [facility] [address] [id number] [place] [id number] Jun, [facility] [address] [id number] [place] [id number] Jun, [facility] [address] [id number] [place] [id number] Mar, [facility] [address] [id number] [place] [id number] Mar, [facility] [address] [facility] [id number] [address] [place] [id number] Feb, [facility] [address] [facility] [id number] [address] [place] [id number] Feb, [facility] [address] [facility] [id number] [address] [place] [id number] Jan, [facility] [address] [facility] [id number] [address] [place] [id number] Jan, [facility] [address] [facility] [id number] [address] [place] [id number] Jan, [facility] [address] [facility] [id number] [address] [place] [id number] Jan, [facility] [address] [facility] [id number] [address] [place] [id number] Jan, [facility] [address] [facility] [id number] [address] [address] Aug, [facility] [address] [facility] [id number] [address] [address] 17 Apr, 2010 IMMUNIZATIONS No Known Immunizations SOCIAL HISTORY Never Assessed REASON FOR VISIT PLAN OF CARE VITAL SIGNS MEDICATIONS Unknown Medications RESULTS No Results PROCEDURES Procedure Date Ordered Result Body Site PROTHROMBIN TIME July 26, 2012 INSTRUCTIONS MEDICATIONS ADMINISTERED No Known Medications MEDICAL [...]
--- OUTSIDE RECORDS SUMMARY | 2019-11-08 12:54 | XMS REPORT ---
Author Author Zana Mojica Doctor Organization [facility] Address Unknown Phone Unavailable Care Team Providers Care Ed Case Manager Name Role Phone Migration, Doctor Unavailable Unavailable PROBLEMS Type Condition ICD9-CM Code LYV74-RT Code Onset Dates Condition S tatus SNOMED Code Problem Factor V Leiden D68.51 Active 3070 72861 Problem Anticoagulant long-term use Z79.01 Ac tive 988605163 Problem Post-phlebitic syndrome I87.009 Active 24675871 Problem 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 90835006 Problem Other chronic pain G89.29 Active 8 8499092 Problem Venous stasis ulcers, left I83.029 Act ozzy 884196638 Problem Essential hypertension I10 Active 11934667 Problem Venous anomaly Q27.9 Active 63198 4003 Problem Congenital single kidney Q60.0 Activ e 60506368 Problem Chronic prescription opiate use Z79.899 Active 263572135 Problem Pure hypercholesterolemia E78.00 Acti ve [id number] ALLERGIES No Information ENCOUNTERS Encounter Location Date Diagnosis [facility] [address] [facility] [id number] [address] [place] [id number] 26 Aug, 2019 [facility] [address] [facility] [id number] [address] [place] [id number] 08 Aug, 2019 Other chronic pain G89.29 [facility] [address] [facility] [id number] [address] [place] [id number] 04 Aug, 2019 [facility] [address] [facility] [id number] [address] [place] [id number] 02 Aug, 2019 Anticoagulant long-term use Z79.01 [facility] [address] [facility] [id number] [address] [place] [id number] 02 Aug, 2019 Other chronic pain G89.29 [facility] [address] [facility] [id number] [place] [address] [id number] July, Anticoagulant long-term use Z79.01 [facility] [address] [facility] [id number] [address] [place] [phone] July, [facility] [address] [facility] [id number] [address] [place] [id number] July, [facility] [address] [facility] [id number] [address] [place] [address] July, Other chronic pain G89.29 [facility] [address] [facility] [id number] [address] [place] [id number] July, Other chronic pain G89.29 [place] [address] [facility] [id number] [address] [place] [id number] July, Other chronic pain G89.29 [place] [address] [facility] [id number] [address] [place] [address] July, Essential hypertension I10 ; Venous stasis ulcers, left I83.029 ; Other chronic pain G89.29 ; Factor V Leiden D68.51 and 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.09X0 [place] [address] [facility] [id number] [address] [place] [address] Jun, Other chronic pain G89.29 [place] [address] [facility] [id number] [address] [place] [address] Jun, Anticoagulant long-term use Z79.01 [facility] [address] [id number][place] [id number] May, Anticoagulant long-term use Z79.01 [facility] [address] [facility] [id number] [address] [place] [id number] May, Other chronic pain G89.29 [facility] [address] [facility] [id number] [address] [place] [address] May, Anticoagulant long-term use Z79.01 [facility] [address] [id number][place] [id number] Apr, Anticoagulant long-term use Z79.01 [place] [address] [facility] [id number] [address] [place] [id number] Apr, Other chronic pain G89.29 [place] [address] [facility] [id number] [address] [place] [address] Apr, Anticoagulant long-term use Z79.01 [facility] [id number] [place] [address] [id number] Apr, Anticoagulant long-term use Z79.[address] [facility] [id number] [place] [address] [id number] Apr, Factor V Leiden D68.51 [place] [address] [place] [id number] [address] [place], [place] [id number] Mar, Anticoagulant long-term use Z79.01 [place] [address] [facility] [id number] [address] [place] [id number] Mar, Factor V Leiden D68.51 [place] [address] [place] [id number] Mar, Occult blood positive stool R19.5 [place] [address] [place] [id number] [address] [place], [place] [id number] Mar, Other chronic pain G89.29 [place] [address] [facility] [id number] [address] [place] [address] Mar, Factor V Leiden D68.51 and A nticoagulant long-term use Z79.[address] [address] [id number] [place] [address] [id number] Mar, Anticoagulant long-term use Z79.01 [facility] [address] [id number][place] [id number] Mar, Anticoagulant long-term use Z79.01 [place] [address] [facility] [id number] [address] [place] [address] Mar, Anticoagulant long-term use Z79.01 [facility] [address] [facility] [id number] [address] [place] [address] Mar, Pure hypercholesterolemia E7 8.00 [facility] [address] [id number][place] [id number] Mar, Anticoagulant long-term use Z79.01 [facility] [address] [facility] [id number] [address] [place] [address] Mar, Other chronic pain G89.29 [place] [address] [facility] [id number] [address] [place] [address] Feb, Anticoagulant long-term use Z79.01 and Essential hypertension I10 [facility] [address] [facility] [id number] [address] [place] [address] Feb, Anticoagulant long-term use Z79.01 ; Essential hypertension I10 ; Chronic prescription opiate use Z79.899 ; Other chronic pain G89.29 ; Venous stasis ulcers, left I83.029 ; 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.09X0 and Pure hypercholesterolemia E78.[address] [address] [id number][place] [id number] Feb, Anticoagulant long-term use Z79.01 [facility] [address] [facility] [id number] [address] [place] [address] Feb, Anticoagulant long-term use Z79.01 [facility] [address] [facility] [id number] [address] [place] [address] Feb, Other chronic pain G89.[address] [facility] [address] [id number][place] [id number] Feb, Anticoagulant long-term use Z79.01 [facility] [address] [facility] [id number] [address] [place] [address] Jan, Anticoagulant long-term use Z79.[address] [facility] [address] [id number][place] [id number] Jan, Anticoagulant long-term use Z79.[address] [facility] [address] [id number][place] [id number] Jan, Anticoagulant long-term use Z79.[address] [facility] [address] [facility] [id number] [address] [place] [address] Jan, Anticoagulant long-term use Z79.[address] [facility] [address] [id number], [place] [id number] Jan, Anticoagulant long-term use Z79.01 [facility] [address] [facility] [id number] [address] [place] [address] Jan, Anticoagulant long-term use Z79.[address] [facility] [address] [id number], [place] [id number] Jan, Anticoagulant long-term use Z79.01 [facility] [address] [facility] [id number] [address] [place] [address] Jan, [facility] [address] [id number][place] [id number] Jan, Anticoagulant long-term use Z79.01 [facility] [address] [facility] [id number] [address] [place] [address] Jan, [facility] [address] [facility] [id number] [address] [place] [id number] Jan, Other chronic pain G89.29 [facility] [address] [facility] [id number] [address] [place] [address] Jan, Anticoagulant long-term use Z79.01 [facility] [address] [id number], [place] [id number] Dec, Anticoagulant long-term use Z79.[address] [address] [address] [facility] [id number] [address] [place] [address] Dec, Anticoagulant long-term use Z79.[address] [facility] [address] [id number], [place] [id number] Dec, Anticoagulant long-term use Z79.[address] [facility] [address] [id number], [place] [id number] Dec, Anticoagulant long-term use Z79.01 [facility] [address] [facility] [id number] [address] [place] [address] Dec, Anticoagulant long-term use Z79.01 [facility] [address] [facility] [id number] [address] [place] [address] Dec, Anticoagulant long-term use Z79.01 [facility] [address] [facility] [id number] [address] [place] [address] Dec, Anticoagulant long-term use Z79.01 [facility] [address] [facility] [id number] [address] [place] [address] Dec, Other chronic pain G89.29 [facility] [address] [facility] [id number] [address] [place] [address] Dec, Anticoagulant long-term use Z79.01 [facility] [address] [facility] [id number] [address] [place] [address] Dec, [facility] [address] [facility] [id number] [address] [place] [address] Dec, Other chronic pain G89.29 [facility] [address] [facility] [id number], [place] [id number] Dec, Anticoagulant long-term use Z79.01 [facility] [address] [facility] [id number] [address] [place] [address] Nov, Anticoagulant long-term use Z79.[address] [facility] [address] [id number][place] [id number] Nov, Anticoagulant long-term use Z79.01 [facility] [address] [facility] [id number] [address] [place] [address] Nov, Anticoagulant long-term use Z79.01 [facility] [address] [facility] [id number] [address] [place] [address] 13 Nov, 2018 Other chronic pain G89.29 [facility] [address] [facility] [id number] [address] [place] [id number] 12 Nov, 2018 Other chronic pain G89.29 [facility] [address] [facility] [id number] [address] [place] [address] Nov, Anticoagulant long-term use Z79.01 [facility] [address] [id number], [place] [id number] Nov, Factor V Leiden D68.51 [place] [address] [facility] [address] [id number] [place] [address] [id number] Nov, Factor V Leiden D68.51 [place] [address] [facility] [id number] [address] [place] [address] Nov, Anticoagulant long-term use Z79.01 [place] [address] [facility] [address] [id number][place] [id number] Nov, Anticoagulant long-term use Z79.01 [place] [address] [facility] [id number] [address] [place] [address] Nov, Essential hypertension I10 ; Factor V Leiden D68.51 and Anticoagulant long-term use Z79.01 [place] [address] [facility] [address] [id number], [place] [id number] Oct, Anticoagulant long-term use Z79.01 [facility] [address] [facility] [id number] [address] [place] [address] Oct, [place] [address] [facility] [id number] [address] [place] [address] Oct, Anticoagulant long-term use Z79.01 [facility] [address] [facility] [id number] [address] [place] [address] Oct, Other chronic pain G89.29 [facility] [address] [place] [id number] [address] [place] [address] Oct, Anticoagulant long-term use Z79.01 [place] [address] [facility] [id number] [address] [place] [address] Oct, [facility] [address] [facility] [id number] [address] [place] [address] Sep, Anticoagulant long-term use Z79.01 [place] [address] [facility] [address] [id number], [place] [id number] Sep, Anticoagulant long-term use Z79.01 [place] [address] [facility] [id number] [address] [place] [address] Sep, Other chronic pain G89.29 [place] [address] [facility] [id number] [address] [place] [address] Sep, Anticoagulant long-term use Z79.01 [place] [address] [facility] [address] [id number], [place] [id number] Sep, Anticoagulant long-term use Z79.01 [place] [address] [facility] [id number] [address] [place] [address] Aug, Anticoagulant long-term use Z79.01 [place] [address] [facility] [id number] [address] [place] [address] Aug, Anticoagulant long-term use Z79.01 [place] [address] [facility] [id number] [address] [place] [address] Aug, Other chronic pain G89.29 [place] [address] [facility] [id number] [address] [place] [address] Aug, Other chronic pain G89.29 ; Anticoagulant long-term use Z79.01 ; 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.09X0 ; Oral pain K13.79 ; Dental infection K04.7 ; Essential hypertension I10 and Pure hypercholesterolemia E78.00 [place] [address] [facility] [id number] [address] [place] [address] July, Other chronic pain G89.29 [facility] [address] [facility] [id number] [address] [place] [address] Jun, Other chronic pain G89.29 [facility] [address] [facility] [id number] [address] [place] [id number] Jun, [facility] [address] [facility] [id number] [address] [place] [address] Jun, [facility] [address] [id number], [place] [id number] Jun, Anticoagulant long-term use Z79.01 and I diopathic chronic gout of multiple 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 tophus M1A.09X0 [facility] [address] [facility] [id number] [address] [place] [address] May, Other chronic pain G89.29 [facility] [address] [facility] [id number] [address] [place] [address] May, [facility] [address] [facility] [id number] [address] [place] [address] May, Anticoagulant long-term use Z79.01 [facility] [address] [facility] [id number] [address] [place] [address] May, [facility] [address] [id number], [place] [id number] May, Anticoagulant long-term use Z79.01 [facility] [address] [facility] [id number] [address] [place] [address] May, Anticoagulant long-term use Z79.01 [facility] [address] [facility] [id number] [address] [place] [address] May, Anticoagulant long-term use Z79.[address] [facility] [address] [id number], [place] [id number] May, Factor V Leiden D68.51 [facility] [address] [facility] [id number] [address] [place] [address] Apr, Other chronic pain G89.29 [place] [address] [facility] [id number] [address] [place] [address] Apr, Idiopathic chronic gout of m ultiple 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 tophus M1A.09X0 [facility] [place] [address] [facility] [address] [id number], [place] [id number] Apr, Anticoagulant long-term use Z79.[address] [id number], [place] [id number] Apr, Anticoagulant long-term use Z79.01 ; Med ication side effect T88.7XXA and 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.09X0 [place] [address] [facility] [id number] [address] [place] [address] Apr, [place] [address] [facility] [id number] [address] [place] [address] Apr, Anticoagulant long-term use Z79.01 [place] [address] [facility] [id number] [address] [place] [address] Apr, Medication side effect T88.7 XXA and Factor V Leiden D68.51 [place] [address] [facility] [id number] [address] [place] [address] Apr, Idiopathic chronic gout of m ultiple 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 tophus M1A.09X0 and Anticoagulant long-term use Z79.01 [facility] [place] [address] [facility] [address] [id number], [place] [id number] Mar, Factor V Leiden D68.51 and Anticoagulant long-term use Z79.01 [place] [address] [facility] [id number] [address] [place] [address] Mar, Factor V Leiden D68.51 ; Ant icoagulant long-term use Z79.01 ; 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.09X0 ; Pure hypercholesterolemia E78.00 ; Other chronic pain G89.29 and BMI 40.0-44.9, adult Z68.41 [facility] [address] [facility] [id number] [address] [place] [address] Mar, [facility] [address] [facility] [id number] [address] [place] [address] Mar, Other chronic pain G89.29 [facility] [address] [facility] [id number] [address] [place] [address] Feb, Idiopathic chronic gout of m ultiple 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 tophus M1A.09X0 [id number] [place] [address] [id number] Feb, Anticoagulant long-term use Z79.01 and I diopathic chronic gout of multiple 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 tophus M1A.09X0 [place] [address] [facility] [id number] [address] [place] [address] Feb, Anticoagulant long-term use Z79.01 and 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.09X0 [place] [address] [facility] [id number] [address] [place] [address] Feb, [facility] [address] [facility] [id number] [address] [place] [address] Feb, Other chronic pain G89.29 [facility] [address] [facility] [id number] [address] [place] [address] Jan, Other chronic pain G89.29 [facility] [address] [facility] [id number] [address] [place] [address] Dec, Other chronic pain G89.29 [facility] [address] [facility] [id number] [address] [place] [address] Dec, Anticoagulant long-term use Z79.01 [facility] [address] [facility] [id number] [address] [place] [address] Dec, Chronic prescription opiate use Z79.899 ; Factor V Leiden D68.51 ; Other chronic pain G89.29 and Anticoagulant long-term use Z79.01 [facility] [address] [id number] [address] [place] [address] Nov, Other chronic pain G89.29 [facility] [address] [id number] [address] [place] [address] Oct, Other chronic pain G89.29 [facility] [address] [facility] [id number] [address] [place] [address] Sep, Other chronic pain G89.29 [facility] [address] [facility] [id number] [address] [place] [id number] Aug, Other chronic pain G89.29 [facility] [address] [facility] [id number] [address] [place] [address] Aug, Venous stasis ulcers, left I 83.029 [facility] [address] [facility] [id number] [address] [place] [address] July, Other chronic pain G89.29 [facility] [address] [facility] [id number] [address] [place] [address] July, Venous stasis ulcers, left I 83.029 and Snoring R06.83 [facility] [address] [facility] [id number] [address] [place] [address] Jun, Idiopathic chronic gout of m ultiple 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 tophus M1A.09X0 [facility] [address] [id number] [address] [place] [address] Jun, Acute renal insufficiency N2 8.9 [facility] [address] [facility] [id number] [address] [place] [address] Jun, Other chronic pain G89.29 [facility] [address] [facility] [id number] [address] [place] [address] Jun, Acute renal insufficiency N2 8.9 [place] [address] [facility] [id number] [place] [address] [id number] Jun, Idiopathic chronic gout of multiple site s without tophus M1A.09X0 ; Essential hypertension I10 and Anticoagulant long-term use Z79.01 [place] [address] [place] [address] Jun, Anticoagulant long-term use Z79.01 and Essential hypertension I10 [place] [address] [place] [address] May, Idiopathic chronic gout of m ultiple 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 tophus M1A.09X0 [place] [address] [place] [address] May, [place] [address] [address] May, Essential hypertension I10 ; Pure hypercholesterolemia E78.00 ; Anticoagulant long-term use Z79.01 and 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.09X0 [place] [address] [address] May, Other chronic pain G89.29 [place] [address] [address] [place] [id number] [place] [phone] May, Anticoagulant long-term use Z79.01 [place] [address] [address] [place] [id number] [place] [phone] May, Chronic prescription opiate use Z79.899 ; Other chronic pain G89.29 ; Essential hypertension I10 ; Factor V Leiden D68.51 ; Anticoagulant long-term use Z79.01 ; Pure hypercholesterolemia E78.00 ; Venous stasis ulcers, left I83.029 ; 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.09X0 and Cellulitis of left lower extremity L03.116 [place] [address] [address] [place] [id number] [place] [phone] Apr, Other chronic pain G89.29 [place] [address] [address] [place] [id number] [place] [phone] Mar, Other chronic pain G89.29 [facility] [address] [facility] [id number] [address] [place] [phone] Mar, Factor V Leiden D68.51 ; Pur e hypercholesterolemia E78.00 and Other chronic pain G89.29 [facility] [address] [facility] [id number] [address] [place] [phone] Feb, Other chronic pain G89.29 [facility] [address] [facility] [id number] [address] [place] [phone] Jan, Idiopathic chronic gout of m ultiple 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 tophus M1A.09X0 [place] [address] [address] [facility] [id number] [address] [place] [phone] Jan, Other chronic pain G89.29 [place] [address] [address] [facility] [id number] [address] [place] [phone] Dec, Anticoagulant long-term use Z79.01 ; Factor V Leiden D68.51 and Other chronic pain G89.29 [place] [address] [address] [facility] [id number] [address] [place] [phone] Dec, Other chronic pain G89.29 [place] [address] [facility] [id number] [address] [place] [id number] Nov, Other chronic pain G89.29 [place] [address] [address] [facility] [id number] [address] [place] [phone] Oct, Other chronic pain G89.29 [place] [address] [address] [facility] [id number] [address] [place] [phone] Sep, Anticoagulant long-term use Z79.01 [place] [address] [address] [facility] [id number] [address] [place] [address] [id number] Sep, Chronic prescription opiate use Z79.899 ; Anticoagulant long-term use Z79.01 ; Essential hypertension I10 ; Pure hypercholesterolemia E78.00 ; Factor V Leiden D68.51 ; Venous stasis ulcers, left I83.029 ; Other chronic pain G89.29 and 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.[id number] [facility] [address] [id number] [address] [place] [id number] Aug, Anticoagulant long-term use Z79.01 [facility] [address] [id number] [address] [place] [id number] Aug, Other chronic pain G89.29 [facility] [address] [id number] [address] [place] [address] Aug, Essential hypertension I10 a nd Factor V Leiden D68.[address] [id number] [place] [id number] Aug, Acute right ankle pain M25.571 and Tendo nitis of ankle M77.50 [facility] [address] [facility] [id number] [address] [place] [address] Aug, [facility] [address] [id number] [address] [place] [id number] July, Other chronic pain G89.29 [facility] [address] [id number] [address] [place] [id number] Jun, Other chronic pain G89.29 [facility] [address] [id number] [address] [place] [id number] Jun, Other chronic pain G89.29 [facility] [address] [id number] [address] [place] [address] Jun, Anticoagulant long-term use Z79.01 [facility] [address] [id number] [address] [place] [id number] May, Other chronic pain G89.29 [facility] [address] [facility] [id number] [address] [place] [id number] May, Anticoagulant long-term use Z79.01 [facility] [address] [facility] [id number] [address] [place] [address] May, Other chronic pain G89.29 [facility] [address] [facility] [id number] [address] [place] [id number] Apr, Anticoagulant long-term use Z79.01 [facility] [address] [facility] [id number] [address] [place] [id number] Apr, Other chronic pain G89.29 [facility] [address] [facility] [id number] [address] [place] [address] Apr, Anticoagulant long-term use Z79.01 and Pure hypercholesterolemia E78.00 [place] [address] [facility] [id number] [address] [place] [id number] Mar, [place] [address] [facility] [id number] [address] [place] [address] Mar, Anticoagulant long-term use Z79.01 [place] [address] [facility] [id number] [address] [place] [id number] Mar, Other chronic pain G89.29 [facility] [address] [facility] [id number] [address] [place] [id number] Feb, Essential hypertension I10 ; Chronic prescription opiate use Z79.899 ; Other chronic pain G89.29 ; Screening Z13.9 ; Factor V Leiden D68.51 ; Anticoagulant long-term use Z79.01 ; Venous stasis dermatitis of left lower extremity I83.12 and Pure hypercholesterolemia E78.00 [place] [address] [facility] [id number] [address] [place] [address] Jan, Anticoagulant long-term use Z79.01 [place] [address] [facility] [id number] [address] [place] [id number] Jan, Anticoagulant long-term use Z79.01 [place] [address] [facility] [id number] [address] [place] [phone] Jan, [facility] [address] [facility] [id number] [address] [place] [id number] Jan, [place] [address] [facility] [id number] [address] [place] [id number] Dec, [facility] [address] [facility] [id number] [address] [place] [id number] Nov, [facility] [address] [facility] [id number] [address] [place] [address] Oct, Anticoagulant long-term use Z79.01 [facility] [address] [facility] [id number] [address] [place] [id number] Oct, [facility] [address] [facility] [id number] [address] [place] [id number] Oct, Anticoagulant long-term use Z79.01 [facility] [address] [facility] [id number] [address] [place] [id number] Sep, [facility] [address] [place] [id number] [address] [place] [address] Aug, [facility] [address] [address] Aug, Chronic prescription opiate use Z79.899 ; Other chronic pain G89.29 ; Essential hypertension I10 and Pure hypercholesterolemia E78.0 [facility] [address] [place] [id number] [address] [place] [address] July, Hyperlipidemia, group D E78. 3 and Anticoagulant long-term use Z79.01 [facility] [address] [facility] [id number] [address] [place] [id number] July, Hyperlipidemia, group D E78. 3 ; Essential hypertension I10 and Factor V Leiden D68.51 [facility] [id number] [place] [address] July, Essential hypertension I10 [facility] [address] [place] [id number] [address] [place] [id number] Jun, Hyperlipidemia, group D E78. 3 [facility] [address] [place] [id number] [address] [place] [address] Jun, Factor V Leiden D68.51 [facility] [address] [id number] [address] [place] [address] May, Factor V Leiden D68.51 ; Hyp erlipidemia, group D E78.3 ; Essential hypertension I10 ; Other chronic pain G89.29 and Anticoagulant long-term use Z79.01 [facility] [address] [id number] [address] [place] [id number] 04 May, 2015 Anticoagulant long-term use Z79.01 [facility] [address] [id number] [address] [place] [id number] 04 May, 2015 Anticoagulant long-term use Z79.01 [facility] [address] [facility] [id number] [address] [place] [address] May, [facility] [address] [facility] [id number] [address] [place] [address] Apr, [facility] [address] [facility] [id number] [address] [place] [id number] Mar, [facility] [address] [facility] [id number] [address] [place] [id number] Mar, [facility] [address] [facility] [id number] [address] [place] [address] Feb, Anticoagulant long-term use Z79.01 [facility] [address] [id number] [address] [place] [id number] 16 Feb, 2015 Chronic prescription opiate use Z79.899 ; Other chronic pain G89.29 ; Hyperlipidemia, group D E78.3 ; Factor V Leiden D68.51 and Anticoagulant long- term use Z79.01 [facility] [address] [facility] [id number] [address] [place] [phone] Feb, [facility] [address] [facility] [id number] [address] [place] [phone] Jan, [facility] [address] [address] Dec, Hyperlipidemia, unspecified E78.5 [facility] [address] [address] Dec, Cellulitis of left lower ext remity L03.116 ; Venous stasis ulcers, left I83.029 and Factor V Leiden D68.51 [facility] [address] [address] Dec, Hyperlipidemia 272.4 and Fac tor 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 [facility] [address] [address] Dec, [facility] [address] [address] Nov, 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 [facility] [address] [address] Nov, [facility] [address] [address] Nov, [facility] [address] [address] Nov, [facility] [address] [address] Oct, [facility] [address] [address] Oct, Hyperlipidemia 272.4 ; Chron ic pain disorder 338.4 ; Venous stasis ulcer of left lower extremity 454.0 and 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 [facility] [address] [address] Sep, [facility] [address] [address] Sep, [facility] [address] [address] Sep, Hyperlipidemia 272.4 and Fac tor 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 [facility] [address] [facility] [id number] [address] [place] [address] Aug, [facility] [address] [facility] [id number] [address] [place] [address] Aug, 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 [facility] [address] [facility] [id number] [address] [place] [address] July, [facility] [address] [facility] [id number] [place] [address] July, Essential hypertension, fito gn 401.1 ; 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 ; Chronic pain disorder 338.4 ; Hyperlipidemia 272.4 and Venous stasis ulcer of left lower extremity 454.0 [facility] [address] [facility] [id number] [address] [place] [id number] Jun, [facility] [address] [place] [id number] [place] [address] Jun, [facility] [address] [facility] [id number] [address] [place] [phone] May, [facility] [address] [address] May, [facility] [address] [place] [id number] [address] [place] [phone] Apr, [facility] [address] [facility] [id number] [address] [place] [id number] Apr, [facility] [address] [facility] [id number] [address] [place] [address] Apr, [facility] [address] [facility] [id number] [address] [place] [phone] Apr, [facility] [address] [facility] [id number] [address] [place] [id number] 13 Apr, 2014 [facility] [address] [place] [id number] [address] [place] [id number] 13 Apr, 2014 [facility] [address] [id number] [address] [place] [address], [place] [address] Mar, [facility] [address] [id number] [address] [place] [address], [place] [address] Mar, [facility] [address] [id number] [address] [place] [address], [place] [address] Mar, [facility] [address] [id number] [address] [place] [address], [place] [address] Mar, [facility] [address] [id number] [address] [place] [address], [place] [address] Feb, [facility] [address] [id number] [address] [place] [address], [place] [address] 17 Feb, 2014 [facility] [address] [id number] [address] [place] [address], [place] [address] 16 Feb, 2014 [facility] [address] [id number] [address] [place] [address], [place] [address] Feb, [facility] [address] [id number] [address] [place] [address], [place] [address] 24 Jan, 2014 [facility] [address] [id number] [address] [place] [address], [place] [address] Jan, [facility] [address] [id number] [address] [place] [address], [place] [address] Jan, [facility] [address] [id number] [address] [place] [address], [place] [address] Jan, [facility] [address] [id number] [address] [place] [address], [place] [address] Jan, [facility] [address] [id number] [address] [place] [address], [place] [address] Jan, [facility] [address] [id number] [address] [place] [address], [place] [address] Dec, [facility] [address] [id number] [address] [place] [address], [place] [address] Dec, [facility] [address] [id number] [address] [place] [address], [place] [address] Oct, [facility] [address] [id number] [address] [place] [address], [place] [address] Oct, [facility] [address] [id number] [address] [place] [address], [place] [address] Sep, [facility] [address] [id number] [address] [place] [address], [place] [address] Sep, [facility] [address] [id number] [address] [place] [address], [place] [address] Sep, [facility] [address] [id number] [address] [place] [address], [place] [address] Sep, [facility] [address] [id number] [address] [place] [address], [place] [address] Aug, [facility] [address] [id number] [address] [place] [address], [place] [address] Aug, [facility] [address] [id number] [address] [place] [address], [place] [address] July, [facility] [address] [id number] [address] [place] [address], [place] [address] July, [facility] [address] [id number] [address] [place] [address], [place] [address] Jun, [facility] [address] [id number] [address] [place] [address], [place] [address] Jun, [facility] [address] [id number] [address] [place] [address], [place] [address] May, [facility] [address] [id number] [address] [place] [address], [place] [address] May, [facility] [address] [id number] [address] [place] [address], [place] [address] Apr, [facility] [address] [id number] [address] [place] [address], [place] [address] Apr, [facility] [address] [id number] [address] [place] [address], [place] [address] Mar, [facility] [address] [id number] [address] [place] [address], [place] [address] Mar, [facility] [address] [id number] [address] [place] [address], [place] [address] Jan, [facility] [address] [id number] [address] [place] [address], [place] [address] Jan, [facility] [address] [id number] [address] [place] [address], [place] [address] Jan, [facility] [address] [id number] [address] [place] [address], [place] [address] Jan, [facility] [address] [id number] [address] [place] [address], [place] [address] Jan, [facility] [address] [id number] [address] [place] [address], [place] [address] Dec, [facility] [address] [id number] [address] [place] [address], [place] [address] Dec, [facility] [address] [id number] [address] [place] [address], [place] [address] Dec, [facility] [address] [id number] [address] [place] [address], [place] [address] Nov, [facility] [address] [id number] [address] [place] [address], [place] [address] Nov, [facility] [address] [id number] [address] [place] [address], [place] [address] Sep, [facility] [address] [id number] [address] [place] [address], [place] [address] Sep, [facility] [address] [id number] [address] [place] [address] Aug, [facility] [address] [facility] [id number] [address] [place] [address] Aug, [facility] [address] [id number] [place] [id number] July, [facility] [address] [id number] [place] [id number] Jun, [facility] [address] [id number] [place] [id number] Apr, [facility] [address] [id number] [place] [id number] Mar, [facility] [address] [facility] [id number] [address] [place] [address] Mar, [facility] [address] [id number] [place] [id number] Mar, [facility] [address] [facility] [id number] [address] [place] [address] Mar, [facility] [address] [id number] [place] [id number] Feb, [facility] [address] [facility] [id number] [address] [place] [address] Feb, [facility] [address] [id number] [place] [id number] Feb, [facility] [address] [facility] [id number] [address] [place] [address] Feb, [facility] [address] [id number] [place] [id number] Oct, [facility] [place] [address] [id number] [place] [id number] Oct, [facility] [place] [address] [id number] [place] [id number] July, [facility] [place] [address] [id number] [place] [id number] July, [facility] [place] [address] [id number] [place] [id number] Jun, [facility] [address] [id number] [place] [id number] Jun, [facility] [address] [id number] [place] [id number] Jun, [facility] [address] [id number] [place] [id number] Mar, [facility] [address] [facility] [id number] [place] [id number] Mar, [facility] [address] [id number] [address] [place] [phone] Feb, [facility] [address] [facility] [id number] [address] [place] [address] Feb, [facility] [address] [facility] [id number] [address] [place] [address] Jan, [facility] [address] [facility] [id number] [address] [place] [address] Jan, [facility] [address] [facility] [id number] [address] [place] [address] Jan, [facility] [address] [facility] [id number] [address] [place] [address] Jan, [facility] [address] [facility] [id number] [address] [place] [address] Jan, [facility] [address] [facility] [id number] [address] [place] [address] Aug, [facility] [address] [facility] [id number] [address] [place] [id number] Apr, IMMUNIZATIONS No Known Immunizations SOCIAL HISTORY Never Assessed REASON FOR VISIT PLAN OF CARE VITAL SIGNS MEDICATIONS Unknown Medications RESULTS No Results PROCEDURES Procedure Date Ordered Result Body Site PROTHROMBIN TIME September 12, 2012 INSTRUCTIONS MEDICATIONS ADMINISTERED No Known Medications [...]
--- OUTSIDE RECORDS SUMMARY | 2019-11-08 12:54 | XMS REPORT ---
Author Author Zana ORTIZ Organization [facility] Address [address] [place] [address] Care Team Providers Care Ball Holder Name Role Phone AVANI ORTIZ Unavailable PROBLEMS Type Condition ICD9-CM Code OER81-AE Code Onset Dates Condition S tatus SNOMED Code Problem Factor V Leiden D68.51 Active 3070 95861 Problem Anticoagulant long-term use Z79.01 Ac tive 665198278 Problem Post-phlebitic syndrome I87.009 Active 02967273 Problem 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 36026444 Problem Other chronic pain G89.29 Active 8 4124045 Problem Venous stasis ulcers, left I83.029 Act ozzy 186889112 Problem Essential hypertension I10 Active 75554559 Problem Venous anomaly Q27.9 Active 16067 4003 Problem Congenital single kidney Q60.0 Activ e 45909594 Problem Chronic prescription opiate use Z79.899 Active 873627681 Problem Pure hypercholesterolemia E78.00 Acti ve [id number] ALLERGIES No Information ENCOUNTERS Encounter Location Date Diagnosis [facility] [address] [facility] [id number] [address] [place] [id number] 08 Aug, 2019 Other chronic pain G89.29 [facility] [address] [facility] [id number] [address] [place] [address] 04 Aug, 2019 [facility] [address] [facility] [id number] [address] [place] [address] 02 Aug, 2019 Anticoagulant long-term use Z79.01 [facility] [address] [facility] [id number] [address] [place] [address] 02 Aug, 2019 Other chronic pain G89.[address] [id number] [place] [id number] July, Anticoagulant long-term use Z79.01 [facility] [address] [facility] [id number] [address] [place] [address] July, [facility] [address] [facility] [id number] [address] [place] [address] July, [facility] [address] [facility] [id number] [address] [place] [address] July, Other chronic pain G89.29 [facility] [address] [facility] [id number] [address] [place] [address] July, Other chronic pain G89.29 [facility] [address] [facility] [id number] [address] [place] [address] July, Other chronic pain G89.29 [facility] [address] [facility] [id number] [address] [place] [address] July, Essential hypertension I10 ; Venous stasis ulcers, left I83.029 ; Other chronic pain G89.29 ; Factor V Leiden D68.51 and 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.09X0 [facility] [address] [facility] [id number] [address] [place] [address] Jun, Other chronic pain G89.29 [facility] [address] [facility] [id number] [address] [place] [address] Jun, Anticoagulant long-term use Z79.01 [facility] [address] [id number][place] [id number] May, Anticoagulant long-term use Z79.01 [facility] [address] [id number] [address] [place] [address] May, Other chronic pain G89.29 [facility] [address] [facility] [id number] [address] [place] [address] May, Anticoagulant long-term use Z79.01 [facility] [address] [id number][place] [id number] Apr, Anticoagulant long-term use Z79.01 [place] [address] [facility] [id number] [address] [place] [address] Apr, Other chronic pain G89.29 [place] [address] [facility] [id number] [address] [place], [place] [id number] 19 Apr, 2019 Anticoagulant long-term use Z79.01 [facility] [id number] [place] [address] [id number] Apr, Anticoagulant long-term use Z79.01 [facility] [address] [facility] [address] [id number] [place] [address] [id number] Apr, Factor V Leiden D68.51 [place] [address] [place] [id number] [address] [place] [id number] Mar, Anticoagulant long-term use Z79.01 [place] [id number] [place] [address] Mar, Factor V Leiden D68.51 [place] [id number] [place] [address] Mar, Occult blood positive stool R19.5 [place] [address] [place] [id number] [address] [place] [address] Mar, Other chronic pain G89.29 [place] [address] [facility] [id number] [address] [place] [address] Mar, Factor V Leiden D68.51 and A nticoagulant long-term use Z79.01 [facility] [id number] [place] [address] [id number] Mar, Anticoagulant long-term use Z79.01 [facility] [address] [id number], [place] [id number] Mar, Anticoagulant long-term use Z79.01 [place] [address] [facility] [id number] [address] [place] [address] Mar, Anticoagulant long-term use Z79.01 [facility] [address] [facility] [id number] [address] [place] [address] Mar, Pure hypercholesterolemia E7 8.00 [facility] [address] [id number], [place] [id number] Mar, Anticoagulant long-term use Z79.01 [facility] [address] [facility] [id number] [address] [place] [address] Mar, Other chronic pain G89.29 [facility] [address] [facility] [id number] [address] [place] [address] Feb, Anticoagulant long-term use Z79.01 and Essential hypertension I10 [facility] [address] [facility] [id number] [address] [place] [address] Feb, Anticoagulant long-term use Z79.01 ; Essential hypertension I10 ; Chronic prescription opiate use Z79.899 ; Other chronic pain G89.29 ; Venous stasis ulcers, left I83.029 ; 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.09X0 and Pure hypercholesterolemia E78.00 [facility] [address] [id number], [place] [id number] Feb, Anticoagulant long-term use Z79.01 [facility] [address] [facility] [id number] [address] [place] [address] Feb, Anticoagulant long-term use Z79.01 [facility] [address] [facility] [id number] [address] [place] [address] Feb, Other chronic pain G89.29 [facility] [address] [id number], [place] [id number] Feb, Anticoagulant long-term use Z79.01 [facility] [address] [facility] [id number] [address] [place] [address] Jan, Anticoagulant long-term use Z79.01 [facility] [address] [id number], [place] [id number] Jan, Anticoagulant long-term use Z79.01 [facility] [address] [id number], [place] [id number] Jan, Anticoagulant long-term use Z79.01 [facility] [address] [facility] [id number] [address] [place] [address] Jan, Anticoagulant long-term use Z79.01 [facility] [address] [id number], [place] [id number] Jan, Anticoagulant long-term use Z79.01 [facility] [address] [facility] [id number] [address] [place] [address] Jan, Anticoagulant long-term use Z79.01 [facility] [address] [id number], [place] [id number] Jan, Anticoagulant long-term use Z79.01 [facility] [address] [facility] [id number] [address] [place] [address] Jan, [facility] [address] [id number], [place] [id number] Jan, Anticoagulant long-term use Z79.01 [facility] [address] [facility] [id number] [address] [place] [address] Jan, [facility] [address] [facility] [id number] [address] [place] [address] Jan, Other chronic pain G89.29 [facility] [address] [facility] [id number] [address] [place] [address] Jan, Anticoagulant long-term use Z79.01 [facility] [address] [id number], [place] [id number] Dec, Anticoagulant long-term use Z79.01 [facility] [address] [facility] [id number] [address] [place] [address] Dec, Anticoagulant long-term use Z79.01 [facility] [address] [id number], [place] [id number] Dec, Anticoagulant long-term use Z79.01 [facility] [address] [id number], [place] [id number] Dec, Anticoagulant long-term use Z79.01 [facility] [address] [facility] [id number] [address] [place] [address] Dec, Anticoagulant long-term use Z79.01 [facility] [address] [facility] [id number] [address] [place] [address] Dec, Anticoagulant long-term use Z79.01 [facility] [address] [facility] [id number] [address] [place] [address] Dec, Anticoagulant long-term use Z79.01 [facility] [address] [facility] [id number] [address] [place] [address] Dec, Other chronic pain G89.29 [facility] [address] [facility] [id number] [address] [place] [address] Dec, Anticoagulant long-term use Z79.01 [facility] [address] [id number] [address] [place] [address] Dec, [facility] [address] [facility] [id number] [address] [place] [address] Dec, Other chronic pain G89.29 [facility] [address] [id number], [place] [id number] Dec, Anticoagulant long-term use Z79.01 [facility] [address] [facility] [id number] [address] [place] [address] Nov, Anticoagulant long-term use Z79.01 [facility] [address] [id number], [place] [id number] Nov, Anticoagulant long-term use Z79.01 [facility] [address] [facility] [id number] [address] [place] [address] Nov, Anticoagulant long-term use Z79.01 [facility] [address] [facility] [id number] [address] [place] [address] 13 Nov, 2018 Other chronic pain G89.29 [facility] [address] [facility] [id number] [address] [place] [address] Nov, Other chronic pain G89.29 [place] [address] [facility] [id number] [address] [place] [address] Nov, Anticoagulant long-term use Z79.[address] [facility] [address] [id number], [place] [id number] Nov, Factor V Leiden D68.51 [place] [address] [facility] [id number] [place] [address] [id number] Nov, Factor V Leiden D68.51 [place] [address] [facility] [id number] [address] [place] [address] Nov, Anticoagulant long-term use Z79.[address] [place] [id number] [place] [address] [id number] Nov, Anticoagulant long-term use Z79.01 [place] [address] [facility] [id number] [address] [place] [address] Nov, Essential hypertension I10 ; Factor V Leiden D68.51 and Anticoagulant long-term use Z79.01 [place] [address] [facility] [id number] [place] [address] [id number] Oct, Anticoagulant long-term use Z79.01 [place] [address] [facility] [id number] [address] [place] [address] Oct, [place] [address] [facility] [id number] [address] [place] [address] Oct, Anticoagulant long-term use Z79.01 [place] [address] [facility] [id number] [address] [place] [address] Oct, Other chronic pain G89.29 [place] [address] [facility] [id number] [address] [place] [address] Oct, Anticoagulant long-term use Z79.01 [place] [address] [facility] [id number] [address] [place] [address] Oct, [place] [address] [facility] [id number] [address] [place] [address] Sep, Anticoagulant long-term use Z79.[address] [id number], [place] [id number] Sep, Anticoagulant long-term use Z79.01 [place] [address] [facility] [id number] [address] [place] [address] Sep, Other chronic pain G89.29 [place] [address] [place] [id number] [address] [place] [address] Sep, Anticoagulant long-term use Z79.01 [place] [address] [facility] [address] [id number], [place] [id number] Sep, Anticoagulant long-term use Z79.01 [place] [address] [facility] [id number] [address] [place] [address] Aug, Anticoagulant long-term use Z79.01 [place] [address] [facility] [id number] [address] [place] [address] Aug, Anticoagulant long-term use Z79.01 [place] [address] [facility] [id number] [address] [place] [address] Aug, Other chronic pain G89.29 [place] [address] [facility] [id number] [address] [place] [address] Aug, Other chronic pain G89.29 ; Anticoagulant long-term use Z79.01 ; 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.09X0 ; Oral pain K13.79 ; Dental infection K04.7 ; Essential hypertension I10 and Pure hypercholesterolemia E78.00 [place] [address] [facility] [id number] [address] [place] [address] July, Other chronic pain G89.29 [facility] [address] [facility] [id number] [address] [place] [address] Jun, Other chronic pain G89.29 [facility] [address] [facility] [id number] [address] [place] [address] Jun, [facility] [address] [facility] [id number] [address] [place] [address] Jun, [facility] [address] [id number], [place] [id number] Jun, Anticoagulant long-term use Z79.01 and I diopathic chronic gout of multiple 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 tophus M1A.09X0 [facility] [address] [facility] [id number] [address] [place] [address] May, Other chronic pain G89.29 [facility] [address] [facility] [id number] [address] [place] [address] May, [facility] [address] [facility] [id number] [address] [place] [address] May, Anticoagulant long-term use Z79.01 [facility] [address] [facility] [id number] [address] [place] [address] May, [facility] [address] [id number], [place] [id number] May, Anticoagulant long-term use Z79.01 [facility] [address] [facility] [id number] [address] [place] [address] May, Anticoagulant long-term use Z79.01 [facility] [address] [facility] [id number] [address] [place] [address] May, Anticoagulant long-term use Z79.01 [facility] [address] [id number], [place] [id number] May, Factor V Leiden D68.51 [facility] [address] [facility] [id number] [address] [place] [address] Apr, Other chronic pain G89.29 [place] [address] [facility] [id number] [address] [place] [address] Apr, Idiopathic chronic gout of m ultiple 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 tophus M1A.09X0 [place] [address] [facility] [address] [id number], [place] [id number] Apr, Anticoagulant long-term use Z79.01 [place] [address] [facility] [address] [id number], [place] [id number] Apr, Anticoagulant long-term use Z79.01 ; Med ication side effect T88.7XXA and 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.09X0 [place] [address] [place] [id number] [address] [place] [address] Apr, [place] [address] [address] Apr, Anticoagulant long-term use Z79.01 [place] [address] [place] [id number] [address] [place] [address] Apr, Medication side effect T88.7 XXA and Factor V Leiden D68.51 [place] [address] [place] [id number] [address] [place] [address] Apr, Idiopathic chronic gout of m ultiple 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 tophus M1A.09X0 and Anticoagulant long-term use Z79.01 [place] [address] [facility] [id number], [place] [id number] Mar, Factor V Leiden D68.51 and Anticoagulant long-term use Z79.01 [place] [address] [facility] [id number] [address] [place] [address] Mar, Factor V Leiden D68.51 ; Ant icoagulant long-term use Z79.01 ; 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.09X0 ; Pure hypercholesterolemia E78.00 ; Other chronic pain G89.29 and BMI 40.0-44.9, adult Z68.41 [facility] [address] [facility] [id number] [address] [place] [address] Mar, [facility] [address] [facility] [id number] [address] [place] [address] Mar, Other chronic pain G89.29 [facility] [address] [facility] [id number] [address] [place] [address] Feb, Idiopathic chronic gout of m ultiple 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 tophus M1A.09X0 [address] [id number], [place] [id number] Feb, Anticoagulant long-term use Z79.01 and I diopathic chronic gout of multiple 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 tophus M1A.09X0 [facility] [address] [facility] [id number] [address] [place] [address] Feb, Anticoagulant long-term use Z79.01 and 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.09X0 [facility] [address] [facility] [id number] [address] [place] [address] Feb, [facility] [address] [facility] [id number] [address] [place] [address] Feb, Other chronic pain G89.29 [facility] [address] [facility] [id number] [address] [place] [address] Jan, Other chronic pain G89.29 [facility] [address] [facility] [id number] [address] [place] [address] Dec, Other chronic pain G89.29 [facility] [address] [facility] [id number] [address] [place] [address] Dec, Anticoagulant long-term use Z79.01 [facility] [address] [facility] [id number] [address] [place] [address] Dec, Chronic prescription opiate use Z79.899 ; Factor V Leiden D68.51 ; Other chronic pain G89.29 and Anticoagulant long-term use Z79.01 [facility] [address] [facility] [id number] [address] [place] [address] Nov, Other chronic pain G89.29 [facility] [address] [facility] [id number] [address] [place] [address] Oct, Other chronic pain G89.29 [facility] [address] [facility] [id number] [address] [place] [address] Sep, Other chronic pain G89.29 [facility] [address] [facility] [id number] [address] [place] [address] Aug, Other chronic pain G89.29 [place] [address] [facility] [id number] [address] [place] [address] Aug, Venous stasis ulcers, left I 83.029 [place] [address] [facility] [id number] [address] [place] [address] July, Other chronic pain G89.29 [facility] [address] [facility] [id number] [address] [place] [phone] July, Venous stasis ulcers, left I 83.029 and Snoring R06.83 [facility] [address] [facility] [id number] [address] [place] [phone] Jun, Idiopathic chronic gout of m ultiple 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 tophus M1A.09X0 [place] [address] [facility] [id number] [address] [place] [phone] Jun, Acute renal insufficiency N2 8.9 [place] [address] [facility] [id number] [address] [place] [phone] Jun, Other chronic pain G89.29 [facility] [address] [facility] [id number] [address] [place] [phone] Jun, Acute renal insufficiency N2 8.[address] [place] [id number] [place] [id number] Jun, Idiopathic chronic gout of multiple site s without tophus M1A.09X0 ; Essential hypertension I10 and Anticoagulant long-term use Z79.01 [place] [address] [place] [id number] [address] [place] [phone] Jun, Anticoagulant long-term use Z79.01 and Essential hypertension I10 [place] [address] [place] [id number] [address] [place] [id number] May, Idiopathic chronic gout of m ultiple 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 tophus M1A.09X0 [place] [address] [place] [id number] [address] [place] [phone] May, [place] [address] [facility] [id number] [place] [id number] May, Essential hypertension I10 ; Pure hypercholesterolemia E78.00 ; Anticoagulant long-term use Z79.01 and 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.09X0 [place] [id number] [place] [phone] May, Other chronic pain G89.29 [place] [address] [place] [id number] [address] [place] [phone] May, Anticoagulant long-term use Z79.01 [place] [address] [place] [id number] [address] [place] [id number] May, Chronic prescription opiate use Z79.899 ; Other chronic pain G89.29 ; Essential hypertension I10 ; Factor V Leiden D68.51 ; Anticoagulant long-term use Z79.01 ; Pure hypercholesterolemia E78.00 ; Venous stasis ulcers, left I83.029 ; 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.09X0 and Cellulitis of left lower extremity L03.116 [place] [address] [place] [id number] [address] [place] [id number] Apr, Other chronic pain G89.29 [place] [address] [id number] [address] [place] [address] Mar, Other chronic pain G89.29 [facility] [address] [facility] [id number] [address] [place] [address] Mar, Factor V Leiden D68.51 ; Pur e hypercholesterolemia E78.00 and Other chronic pain G89.29 [facility] [address] [facility] [id number] [address] [place] [address] Feb, Other chronic pain G89.29 [place] [address] [id number] [address] [place] [address] Jan, Idiopathic chronic gout of m ultiple 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 tophus M1A.09X0 [place] [address] [facility] [id number] [address] [place] [address] Jan, Other chronic pain G89.29 [place] [address] [facility] [id number] [address] [place] [address] Dec, Anticoagulant long-term use Z79.01 ; Factor V Leiden D68.51 and Other chronic pain G89.29 [place] [address] [facility] [id number] [address] [place] [address] Dec, Other chronic pain G89.29 [place] [address] [facility] [id number] [address] [place] [address] Nov, Other chronic pain G89.29 [place] [address] [facility] [id number] [address] [place] [address] Oct, Other chronic pain G89.29 [place] [address] [facility] [id number] [address] [place] [address] Sep, Anticoagulant long-term use Z79.01 [place] [address] [facility] [id number] [address] [place] [address] Sep, Chronic prescription opiate use Z79.899 ; Anticoagulant long-term use Z79.01 ; Essential hypertension I10 ; Pure hypercholesterolemia E78.00 ; Factor V Leiden D68.51 ; Venous stasis ulcers, left I83.029 ; Other chronic pain G89.29 and 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.09X0 [facility] [address] [id number] [address] [place] [address] Aug, Anticoagulant long-term use Z79.01 [facility] [address] [id number] [address] [place] [address] Aug, Other chronic pain G89.29 [facility] [address] [id number] [address] [place] [address] Aug, Essential hypertension I10 a nd Factor V Leiden D68.[address] [id number] [place] [id number] Aug, Acute right ankle pain M25.571 and Tendo nitis of ankle M77.50 [facility] [address] [facility] [id number] [address] [place] [address] Aug, [facility] [address] [id number] [address] [place] [address] July, Other chronic pain G89.29 [facility] [address] [id number] [address] [place] [address] Jun, Other chronic pain G89.29 [facility] [address] [id number] [address] [place] [address] Jun, Other chronic pain G89.29 [facility] [address] [id number] [address] [place] [address] Jun, Anticoagulant long-term use Z79.01 [facility] [address] [id number] [address] [place] [address] May, Other chronic pain G89.29 [facility] [address] [id number] [address] [place] [address] May, Anticoagulant long-term use Z79.01 [facility] [address] [id number] [address] [place] [address] May, Other chronic pain G89.29 [facility] [address] [facility] [id number] [address] [place] [address] 06 Apr, 2016 Anticoagulant long-term use Z79.01 [facility] [address] [facility] [id number] [address] [place] [address] Apr, Other chronic pain G89.29 [facility] [address] [facility] [id number] [address] [place] [address] Apr, Anticoagulant long-term use Z79.01 and Pure hypercholesterolemia E78.00 [place] [address] [facility] [id number] [address] [place] [address] Mar, [place] [address] [address] Mar, Anticoagulant long-term use Z79.01 [place] [address] [place] [address] [id number] [address] [place] [address] Mar, Other chronic pain G89.29 [facility] [id number] [place] [address] Feb, Essential hypertension I10 ; Chronic prescription opiate use Z79.899 ; Other chronic pain G89.29 ; Screening Z13.9 ; Factor V Leiden D68.51 ; Anticoagulant long-term use Z79.01 ; Venous stasis dermatitis of left lower extremity I83.12 and Pure hypercholesterolemia E78.00 [place] [address] [facility] [id number] [address] [place] [address] Jan, Anticoagulant long-term use Z79.01 [place] [address] [facility] [id number] [address] [place] [address] Jan, Anticoagulant long-term use Z79.01 [place] [address] [place] [address] [id number] [address] [place] [address] Jan, [facility] [address] [address] [id number] [address] [place] [address] Jan, [place] [address] [facility] [id number] [address] [place] [address] Dec, [facility] [address] [facility] [id number] [address] [place] [address] Nov, [facility] [address] [facility] [id number] [address] [place] [address] Oct, Anticoagulant long-term use Z79.01 [facility] [address] [facility] [id number] [address] [place] [address] Oct, [facility] [address] [facility] [id number] [address] [place] [address] Oct, Anticoagulant long-term use Z79.01 [facility] [address] [facility] [id number] [address] [place] [address] Sep, [facility] [address] [place] [address] [id number] [address] [place] [address] Aug, [facility] [address] [address] Aug, Chronic prescription opiate use Z79.899 ; Other chronic pain G89.29 ; Essential hypertension I10 and Pure hypercholesterolemia E78.0 [facility] [address] [address] July, Hyperlipidemia, group D E78. 3 and Anticoagulant long-term use Z79.01 [facility] [address] [facility] [id number] [address] [place] [address] July, Hyperlipidemia, group D E78. 3 ; Essential hypertension I10 and Factor V Leiden D68.51 [facility] [id number] [place] [address] July, Essential hypertension I10 [facility] [address] [facility] [id number] [address] [place] [address] Jun, Hyperlipidemia, group D E78. 3 [facility] [address] [place] [address] [id number] [address] [place] [address] Jun, Factor V Leiden D68.51 [facility] [address] [id number] [address] [place] [address] May, Factor V Leiden D68.51 ; Hyp erlipidemia, group D E78.3 ; Essential hypertension I10 ; Other chronic pain G89.29 and Anticoagulant long-term use Z79.01 [facility] [address] [facility] [id number] [address] [place] [address] May, Anticoagulant long-term use Z79.01 [facility] [address] [id number] [address] [place] [address] May, Anticoagulant long-term use Z79.01 [facility] [address] [facility] [id number] [address] [place] [address] May, [facility] [address] [facility] [id number] [address] [place] [address] Apr, [facility] [address] [facility] [id number] [address] [place] [address] Mar, [facility] [address] [facility] [id number] [address] [place] [address] Mar, [facility] [address] [facility] [id number] [address] [place] [address] Feb, Anticoagulant long-term use Z79.01 [facility] [address] [facility] [id number] [address] [place] [address] 16 Feb, 2015 Chronic prescription opiate use Z79.899 ; Other chronic pain G89.29 ; Hyperlipidemia, group D E78.3 ; Factor V Leiden D68.51 and Anticoagulant long- term use Z79.01 [facility] [address] [facility] [id number] [address] [place] [address] Feb, [facility] [address] [facility] [id number] [address] [place] [address] Jan, [facility] [address] [facility] [id number] [address] [place] [address] Dec, Hyperlipidemia, unspecified E78.5 [facility] [address] [facility] [id number] [address] [place] [address] Dec, Cellulitis of left lower ext remity L03.116 ; Venous stasis ulcers, left I83.029 and Factor V Leiden D68.51 [facility] [address] [id number] [address] [place] [address] Dec, Hyperlipidemia 272.4 and Fac tor 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 [facility] [address] [facility] [id number] [address] [place] [address] Dec, [facility] [address] [place] [address] [id number] [address] [place] [address] Nov, 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 [facility] [address] [id number] [address] [place] [address] Nov, [facility] [address] [id number] [address] [place] [address] Nov, [facility] [address] [id number] [address] [place] [address] Nov, [facility] [address] [id number] [address] [place] [address] Oct, [facility] [address] [id number] [address] [place] [address] Oct, Hyperlipidemia 272.4 ; Chron ic pain disorder 338.4 ; Venous stasis ulcer of left lower extremity 454.0 and 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 [facility] [address] [facility] [id number] [address] [place] [address] Sep, [facility] [address] [id number] [address] [place] [address] Sep, [facility] [address] [facility] [id number] [address] [place] [address] Sep, Hyperlipidemia 272.4 and Fac tor 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 [facility] [address] [facility] [id number] [address] [place] [address] Aug, [facility] [address] [facility] [id number] [address] [place] [address] Aug, 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 [facility] [address] [facility] [id number] [address] [place] [address] July, [facility] [address] [facility] [id number] [address] [place] [address] July, Essential hypertension, fito gn 401.1 ; 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 ; Chronic pain disorder 338.4 ; Hyperlipidemia 272.4 and Venous stasis ulcer of left lower extremity 454.0 [facility] [address] [facility] [id number] [address] [place] [address] Jun, [facility] [address] [place] [address] [id number] [place] [address] Jun, [facility] [address] [facility] [id number] [address] [place] [address] May, [facility] [id number] [place] [address] May, [facility] [address] [facility] [id number] [address] [place] [address] Apr, [facility] [address] [facility] [id number] [address] [place] [address] Apr, [facility] [address] [facility] [id number] [address] [place] [address] Apr, [facility] [address] [facility] [id number] [address] [place] [address] Apr, [facility] [address] [facility] [id number] [address] [place] [address] 13 Apr, 2014 [facility] [address] [facility] [id number] [address] [place] [address] Apr, [facility] [address] [id number] [address] [place] [address], [place] [address] Mar, [facility] [address] [id number] [address] [place] [address], [place] [address] Mar, [facility] [address] [id number] [address] [place] [address], [place] [address] Mar, [facility] [address] [id number] [address] [place] [address], [place] [address] Mar, [facility] [address] [id number] [address] [place] [address], [place] [address] Feb, [facility] [address] [id number] [address] [place] [address], [place] [address] Feb, [facility] [address] [id number] [address] [place] [address], [place] [address] Feb, [facility] [address] [id number] [address] [place] [address], [place] [address] Feb, [facility] [address] [id number] [address] [place] [address], [place] [address] 24 Jan, 2014 [facility] [address] [id number] [address] [place] [address], [place] [address] Jan, [facility] [address] [id number] [address] [place] [address], [place] [address] Jan, [facility] [address] [id number] [address] [place] [address], [place] [address] Jan, [facility] [address] [id number] [address] [place] [address], [place] [address] Jan, [facility] [address] [id number] [address] [place] [address], [place] [address] Jan, [facility] [address] [id number] [address] [place] [address], [place] [address] Dec, [facility] [address] [id number] [address] [place] [address], [place] [address] Dec, [facility] [address] [id number] [address] [place] [address], [place] [address] Oct, [facility] [address] [id number] [address] [place] [address], [place] [address] Oct, [facility] [address] [id number] [address] [place] [address], [place] [address] Sep, [facility] [address] [id number] [address] [place] [address], [place] [address] Sep, [facility] [address] [id number] [address] [place] [address], [place] [address] Sep, [facility] [address] [id number] [address] [place] [address], [place] [address] Sep, [facility] [address] [id number] [address] [place] [address], [place] [address] Aug, [facility] [address] [id number] [address] [place] [address], [place] [address] Aug, [facility] [address] [id number] [address] [place] [address], [place] [address] July, [facility] [address] [id number] [address] [place] [address], [place] [address] July, [facility] [address] [id number] [address] [place] [address], [place] [address] Jun, [facility] [address] [id number] [address] [place] [address], [place] [address] Jun, [facility] [address] [id number] [address] [place] [address], [place] [address] May, [facility] [address] [id number] [address] [place] [address], [place] [address] May, [facility] [address] [id number] [address] [place] [address], [place] [address] Apr, [facility] [address] [id number] [address] [place] [address], [place] [address] Apr, [facility] [address] [id number] [address] [place] [address], [place] [address] Mar, [facility] [address] [id number] [address] [place] [address], [place] [address] Mar, [facility] [address] [id number] [address] [place] [address], [place] [address] Jan, [facility] [address] [id number] [address] [place] [address], [place] [address] Jan, [facility] [address] [id number] [address] [place] [address], [place] [address] Jan, [facility] [address] [id number] [address] [place] [address], [place] [address] Jan, [facility] [address] [id number] [address] [place] [address], [place] [address] Jan, [facility] [address] [id number] [address] [place] [address], [place] [address] Dec, [facility] [address] [id number] [address] [place] [address], [place] [address] Dec, [facility] [address] [id number] [address] [place] [address], [place] [address] Dec, [facility] [address] [id number] [address] [place] [address], [place] [address] Nov, [facility] [address] [id number] [address] [place] [address], [place] [address] Nov, [facility] [address] [id number] [address] [place] [address], [place] [address] Sep, [facility] [address] [id number] [address] [place] [address], [place] [address] Sep, [facility] [address] [id number] [address] [place] [address] Aug, [facility] [address] [facility] [id number] [address] [place] [address] Aug, [facility] [address] [id number] [place] [id number] July, [facility] [address] [id number] [place] [id number] Jun, [facility] [address] [id number] [place] [id number] Apr, [facility] [address] [id number] [place] [id number] Mar, [facility] [address] [facility] [id number] [address] [place] [address] Mar, [facility] [address] [id number] [place] [id number] Mar, [facility] [address] [facility] [id number] [address] [place] [address] Mar, [facility] [address] [id number] [place] [id number] Feb, [facility] [address] [facility] [id number] [address] [place] [address] Feb, [facility] [address] [id number] [place] [id number] Feb, [facility] [address] [facility] [id number] [address] [place] [address] Feb, [facility] [address] [id number] [place] [id number] Oct, [facility] [address] [id number] [place] [id number] Oct, [facility] [address] [id number] [place] [id number] July, [facility] [address] [id number] [place] [id number] July, [facility] [address] [id number] [place] [id number] Jun, [facility] [address] [id number] [place] [id number] Jun, [facility] [address] [id number] [place] [id number] Jun, [facility] [address] [id number] [place] [id number] Mar, [facility] [address] [id number] [place] [id number] Mar, [facility] [address] [id number] [address] [place] [id number] Feb, [facility] [address] [facility] [id number] [address] [place] [id number] Feb, [facility] [address] [facility] [id number] [address] [place] [id number] Jan, [facility] [address] [facility] [id number] [address] [place] [id number] Jan, [facility] [address] [facility] [id number] [address] [place] [id number] Jan, [facility] [address] [facility] [id number] [address] [place] [id number] Jan, [facility] [address] [facility] [id number] [address] [place] [id number] Jan, [facility] [address] [facility] [id number] [address] [place] [id number] Aug, [facility] [address] [facility] [id number] [address] [place] [id number] Apr, IMMUNIZATIONS No Known Immunizations SOCIAL HISTORY [...]
--- OUTSIDE RECORDS SUMMARY | 2019-11-08 12:54 | XMS REPORT ---
Author Author Zana Mojica Doctor Organization [facility] Address Unknown Phone Unavailable Care Team Providers Care Histopathology Technician Name Role Phone Migration, Doctor Unavailable Unavailable PROBLEMS Type Condition ICD9-CM Code CUM36-PA Code Onset Dates Condition S tatus SNOMED Code Problem Factor V Leiden D68.51 Active 3070 36097 Problem Anticoagulant long-term use Z79.01 Ac tive 183402832 Problem Post-phlebitic syndrome I87.009 Active 82592777 Problem 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 21608077 Problem Other chronic pain G89.29 Active 8 8635427 Problem Venous stasis ulcers, left I83.029 Act ozzy 331240180 Problem Essential hypertension I10 Active 25182406 Problem Venous anomaly Q27.9 Active 14232 4003 Problem Congenital single kidney Q60.0 Activ e 47596069 Problem Chronic prescription opiate use Z79.899 Active 124079278 Problem Pure hypercholesterolemia E78.00 Acti ve [id number] ALLERGIES No Information ENCOUNTERS Encounter Location Date Diagnosis [place] [address] [facility] [id number] [address] [place] [phone] 08 Aug, 2019 Other chronic pain G89.29 [place] [address] [facility] [id number] [address] [place] [phone] 04 Aug, 2019 [facility] [address] [facility] [id number] [address] [place] [phone] 02 Aug, 2019 Anticoagulant long-term use Z79.01 [facility] [address] [facility] [id number] [address] [place] [address] Aug, Other chronic pain G89.29 [facility] [address] [facility] [id number] [place] [address] [id number] July, Anticoagulant long-term use Z79.01 [place] [address] [facility] [id number] [address] [place] [phone] July, [facility] [address] [facility] [id number] [address] [place] [phone] July, [facility] [address] [facility] [id number] [address] [place] [address] July, Other chronic pain G89.29 [facility] [address] [facility] [id number] [address] [place] [id number] July, Other chronic pain G89.29 [facility] [address] [facility] [id number] [address] [place] [phone] July, Other chronic pain G89.29 [place] [address] [address] [facility] [id number] [address] [place] [address] July, Essential hypertension I10 ; Venous stasis ulcers, left I83.029 ; Other chronic pain G89.29 ; Factor V Leiden D68.51 and 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.09X0 [facility] [address] [facility] [id number] [address] [place] [phone] Jun, Other chronic pain G89.29 [place] [address] [facility] [id number] [address] [place] [phone] Jun, Anticoagulant long-term use Z79.01 [facility] [address] [id number] [id number] May, Anticoagulant long-term use Z79.01 [facility] [address] [facility] [id number] [address] [place] [phone] May, Other chronic pain G89.29 [facility] [address] [facility] [id number] [address] [place] [address] May, Anticoagulant long-term use Z79.01 [facility] [id number] [place] [address] [id number] Apr, Anticoagulant long-term use Z79.01 [place] [address] [facility] [id number] [address] [place] [phone] Apr, Other chronic pain G89.29 [facility] [address] [facility] [id number] [address] [place] [phone] 19 Apr, 2019 Anticoagulant long-term use Z79.01 [facility] [address] [id number][place] [id number] Apr, Anticoagulant long-term use Z79.01 [facility] [id number] [place] [address] [id number] Apr, Factor V Leiden D68.51 [place] [address] [address] [place] [id number] [address] [place] [address] Mar, Anticoagulant long-term use Z79.01 [place] [address] [address] [place] [id number] [address] [place] [address] Mar, Factor V Leiden D68.51 [place] [address] [id number] [place] [address] Mar, Occult blood positive stool R19.5 [place] [address] [address] [place] [id number] [address] [place] [address] Mar, Other chronic pain G89.29 [place] [address] [facility] [id number] [address] [place] [address] Mar, Factor V Leiden D68.51 and A nticoagulant long-term use Z79.01 [facility] [id number] [place] [address] [id number] Mar, Anticoagulant long-term use Z79.01 [facility] [id number] [place] [address] [id number] Mar, Anticoagulant long-term use Z79.01 [facility] [address] [facility] [id number] [address] [place] [address] Mar, Anticoagulant long-term use Z79.01 [facility] [address] [facility] [id number] [address] [place] [address] Mar, Pure hypercholesterolemia E7 8.[address] [facility] [address] [id number][place] [id number] Mar, Anticoagulant long-term use Z79.01 [facility] [address] [facility] [id number] [address] [place] [address] Mar, Other chronic pain G89.29 [facility] [address] [facility] [id number] [address] [place] [address] Feb, Anticoagulant long-term use Z79.01 and Essential hypertension I10 [place] [address] [facility] [id number] [address] [place] [address] Feb, Anticoagulant long-term use Z79.01 ; Essential hypertension I10 ; Chronic prescription opiate use Z79.899 ; Other chronic pain G89.29 ; Venous stasis ulcers, left I83.029 ; 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.09X0 and Pure hypercholesterolemia E78.[address] [facility] [address] [id number], [place] [id number] Feb, Anticoagulant long-term use Z79.01 [facility] [address] [facility] [id number] [address] [place] [phone] Feb, Anticoagulant long-term use Z79.01 [facility] [address] [facility] [id number] [address] [place] [phone] Feb, Other chronic pain G89.[address] [facility] [address] [id number], [place] [id number] Feb, Anticoagulant long-term use Z79.01 [facility] [address] [facility] [id number] [address] [place] [address] Jan, Anticoagulant long-term use Z79.[address] [facility] [address] [id number], [place] [id number] Jan, Anticoagulant long-term use Z79.[address] [facility] [address] [id number], [place] [id number] Jan, Anticoagulant long-term use Z79.01 [facility] [address] [facility] [id number] [address] [place] [address] Jan, Anticoagulant long-term use Z79.[address] [facility] [address] [id number], [place] [id number] Jan, Anticoagulant long-term use Z79.01 [facility] [address] [facility] [id number] [address] [place] [address] Jan, Anticoagulant long-term use Z79.01 [facility] [address] [id number], [place] [id number] Jan, Anticoagulant long-term use Z79.01 [facility] [address] [facility] [id number] [address] [place] [phone] Jan, [facility] [address] [id number][place] [id number] Jan, Anticoagulant long-term use Z79.01 [facility] [address] [facility] [id number] [address] [place] [phone] Jan, [facility] [address] [facility] [id number] [address] [place] [address] Jan, Other chronic pain G89.29 [place] [address] [address] [facility] [id number] [address] [place] [address] Jan, Anticoagulant long-term use Z79.[address] [facility] [address] [id number], [place] [id number] Dec, Anticoagulant long-term use Z79.01 [facility] [address] [facility] [id number] [address] [place] [phone] Dec, Anticoagulant long-term use Z79.[address] [facility] [address] [id number], [place] [id number] Dec, Anticoagulant long-term use Z79.[address] [facility] [address] [id number], [place] [id number] Dec, Anticoagulant long-term use Z79.01 [facility] [address] [facility] [id number] [address] [place] [phone] Dec, Anticoagulant long-term use Z79.01 [facility] [address] [facility] [id number] [address] [place] [phone] Dec, Anticoagulant long-term use Z79.01 [facility] [address] [facility] [id number] [address] [place] [address] Dec, Anticoagulant long-term use Z79.01 [facility] [address] [facility] [id number] [address] [place] [address] Dec, Other chronic pain G89.29 [facility] [address] [facility] [id number] [address] [place] [address] Dec, Anticoagulant long-term use Z79.01 [facility] [address] [facility] [id number] [address] [place] [phone] Dec, [facility] [address] [facility] [id number] [address] [place] [address] Dec, Other chronic pain G89.29 [facility] [address] [facility] [address] [id number], [place] [id number] Dec, Anticoagulant long-term use Z79.01 [facility] [address] [facility] [id number] [address] [place] [phone] Nov, Anticoagulant long-term use Z79.[address] [facility] [address] [id number], [place] [id number] Nov, Anticoagulant long-term use Z79.01 [facility] [address] [facility] [id number] [address] [place] [address] Nov, Anticoagulant long-term use Z79.01 [facility] [address] [facility] [id number] [address] [place] [address] Nov, Other chronic pain G89.29 [facility] [address] [facility] [id number] [address] [place] [address] Nov, Other chronic pain G89.29 [facility] [address] [facility] [id number] [address] [place] [address] Nov, Anticoagulant long-term use Z79.01 [facility] [address] [id number], [place] [id number] Nov, Factor V Leiden D68.51 [facility] [address] [id number], [place] [id number] Nov, Factor V Leiden D68.51 [place] [address] [facility] [id number] [address] [place] [phone] Nov, Anticoagulant long-term use Z79.01 [facility] [id number] [place] [address] [id number] Nov, Anticoagulant long-term use Z79.01 [place] [address] [facility] [id number] [address] [place] [phone] Nov, Essential hypertension I10 ; Factor V Leiden D68.51 and Anticoagulant long-term use Z79.01 [facility] [id number] [place] [address] [id number] Oct, Anticoagulant long-term use Z79.01 [place] [address] [facility] [id number] [address] [place] [phone] Oct, [facility] [address] [facility] [id number] [address] [place] [address] Oct, Anticoagulant long-term use Z79.01 [place] [address] [facility] [id number] [address] [place] [address] Oct, Other chronic pain G89.29 [facility] [address] [facility] [id number] [address] [place] [address] Oct, Anticoagulant long-term use Z79.01 [place] [address] [address] [facility] [id number] [address] [place] [phone] Oct, [facility] [address] [facility] [id number] [address] [place] [address] Sep, Anticoagulant long-term use Z79.01 [facility] [address] [id number], [place] [id number] Sep, Anticoagulant long-term use Z79.01 [facility] [address] [facility] [id number] [address] [place] [address] Sep, Other chronic pain G89.29 [place] [address] [address] [facility] [id number] [address] [place] [address] Sep, Anticoagulant long-term use Z79.01 [facility] [address] [id number], [place] [id number] Sep, Anticoagulant long-term use Z79.01 [place] [address] [address] [facility] [id number] [address] [place] [phone] Aug, Anticoagulant long-term use Z79.01 [place] [address] [address] [place] [id number] [address] [place] [address] Aug, Anticoagulant long-term use Z79.01 [place] [address] [address] [facility] [id number] [address] [place] [address] Aug, Other chronic pain G89.29 [place] [address] [address] [facility] [id number] [address] [place] [address] Aug, Other chronic pain G89.29 ; Anticoagulant long-term use Z79.01 ; 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.09X0 ; Oral pain K13.79 ; Dental infection K04.7 ; Essential hypertension I10 and Pure hypercholesterolemia E78.00 [place] [address] [address] [facility] [id number] [address] [place] [address] July, Other chronic pain G89.29 [place] [address] [facility] [id number] [address] [place] [address] Jun, Other chronic pain G89.29 [facility] [address] [id number] [address] [place] [phone] Jun, [facility] [address] [id number] [address] [place] [phone] Jun, [facility] [address] [id number], [place] [id number] Jun, Anticoagulant long-term use Z79.01 and I diopathic chronic gout of multiple 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 tophus M1A.09X0 [facility] [address] [id number] [address] [place] [address] May, Other chronic pain G89.29 [facility] [address] [facility] [id number] [address] [place] [phone] May, [facility] [address] [facility] [id number] [address] [place] [address] May, Anticoagulant long-term use Z79.01 [facility] [address] [facility] [id number] [address] [place] [address] May, [facility] [id number] [place] [address] [id number] May, Anticoagulant long-term use Z79.01 [facility] [address] [facility] [id number] [address] [place] [address] May, Anticoagulant long-term use Z79.01 [facility] [address] [id number] [address] [place] [address] May, Anticoagulant long-term use Z79.01 [facility] [address] [id number], [place] [id number] May, Factor V Leiden D68.51 [facility] [address] [facility] [id number] [address] [place] [address] Apr, Other chronic pain G89.29 [facility] [address] [facility] [id number] [address] [place] [address] Apr, Idiopathic chronic gout of m ultiple 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 tophus M1A.09X0 [facility] [address] [id number], [place] [id number] Apr, Anticoagulant long-term use Z79.01 [facility] [address] [facility] [address] [id number], [place] [id number] Apr, Anticoagulant long-term use Z79.01 ; Med ication side effect T88.7XXA and 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.09X0 [place] [address] [address] Apr, [place] [address] [address] Apr, Anticoagulant long-term use Z79.01 [place] [address] [address] [place] [id number] [address] [place] [address] Apr, Medication side effect T88.7 XXA and Factor V Leiden D68.51 [place] [address] [address] [place] [id number] [address] [place] [address] Apr, Idiopathic chronic gout of m ultiple 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 tophus M1A.09X0 and Anticoagulant long-term use Z79.01 [facility] [address] [facility] [address] [id number], [place] [id number] Mar, Factor V Leiden D68.51 and Anticoagulant long-term use Z79.01 [place] [address] [address] [place] [id number] [address] [place] [address] Mar, Factor V Leiden D68.51 ; Ant icoagulant long-term use Z79.01 ; 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.09X0 ; Pure hypercholesterolemia E78.00 ; Other chronic pain G89.29 and BMI 40.0-44.9, adult Z68.41 [place] [address] [address] [place] [id number] [address] [place] [address] Mar, [facility] [address] [facility] [id number] [address] [place] [address] Mar, Other chronic pain G89.29 [facility] [address] [facility] [id number] [address] [place] [address] Feb, Idiopathic chronic gout of m ultiple 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 tophus M1A.09X0 [address] [id number], [place] [id number] Feb, Anticoagulant long-term use Z79.01 and I diopathic chronic gout of multiple 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 tophus M1A.09X0 [place] [address] [address] [facility] [id number] [address] [place] [address] Feb, Anticoagulant long-term use Z79.01 and 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.09X0 [place] [address] [address] [facility] [id number] [address] [place] [address] Feb, [place] [address] [address] [facility] [id number] [address] [place] [address] Feb, Other chronic pain G89.29 [place] [address] [address] [facility] [id number] [address] [place] [address] Jan, Other chronic pain G89.29 [place] [address] [address] [facility] [id number] [address] [place] [address] Dec, Other chronic pain G89.29 [place] [address] [address] [facility] [id number] [address] [place] [address] Dec, Anticoagulant long-term use Z79.01 [facility] [address] [facility] [id number] [address] [place] [address] Dec, Chronic prescription opiate use Z79.899 ; Factor V Leiden D68.51 ; Other chronic pain G89.29 and Anticoagulant long-term use Z79.01 [facility] [address] [facility] [id number] [address] [place] [address] Nov, Other chronic pain G89.29 [facility] [address] [facility] [id number] [address] [place] [address] Oct, Other chronic pain G89.29 [facility] [address] [id number] [address] [place] [phone] Sep, Other chronic pain G89.29 [facility] [address] [id number] [address] [place] [phone] Aug, Other chronic pain G89.29 [facility] [address] [id number] [address] [place] [id number] Aug, Venous stasis ulcers, left I 83.029 [facility] [address] [facility] [id number] [address] [place] [phone] July, Other chronic pain G89.29 [facility] [address] [facility] [id number] [address] [place] [phone] July, Venous stasis ulcers, left I 83.029 and Snoring R06.83 [facility] [address] [facility] [id number] [address] [place] [id number] Jun, Idiopathic chronic gout of m ultiple 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 tophus M1A.09X0 [facility] [address] [facility] [id number] [address] [place] [phone] Jun, Acute renal insufficiency N2 8.9 [facility] [address] [facility] [id number] [address] [place] [phone] Jun, Other chronic pain G89.29 [facility] [address] [facility] [id number] [address] [place] [phone] Jun, Acute renal insufficiency N2 8.[address] [facility] [address] [id number] [id number] Jun, Idiopathic chronic gout of multiple site s without tophus M1A.09X0 ; Essential hypertension I10 and Anticoagulant long-term use Z79.01 [place] [address] [address] [facility] [id number] [address] [place] [phone] Jun, Anticoagulant long-term use Z79.01 and Essential hypertension I10 [place] [address] [address] [facility] [id number] [address] [place] [phone] May, Idiopathic chronic gout of m ultiple 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 tophus M1A.09X0 [place] [address] [address] [facility] [id number] [address] [place] [phone] May, [place] [address] [address] [facility] [id number] [address] [place] [phone] May, Essential hypertension I10 ; Pure hypercholesterolemia E78.00 ; Anticoagulant long-term use Z79.01 and 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.09X0 [place] [address] [address] [facility] [id number] [address] [place] [phone] May, Other chronic pain G89.29 [place] [address] [address] [facility] [id number] [address] [place] [phone] May, Anticoagulant long-term use Z79.01 [place] [address] [address] [facility] [id number] [address] [place] [phone] May, Chronic prescription opiate use Z79.899 ; Other chronic pain G89.29 ; Essential hypertension I10 ; Factor V Leiden D68.51 ; Anticoagulant long-term use Z79.01 ; Pure hypercholesterolemia E78.00 ; Venous stasis ulcers, left I83.029 ; 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.09X0 and Cellulitis of left lower extremity L03.116 [place] [address] [address] [facility] [id number] [address] [place] [address] Apr, Other chronic pain G89.29 [place] [address] [address] [facility] [id number] [address] [place] [address] Mar, Other chronic pain G89.29 [place] [address] [address] [place] [id number] [address] [place] [address] Mar, Factor V Leiden D68.51 ; Pur e hypercholesterolemia E78.00 and Other chronic pain G89.29 [place] [address] [address] [facility] [id number] [address] [place] [address] Feb, Other chronic pain G89.29 [place] [address] [address] [place] [id number] [address] [place] [address] Jan, Idiopathic chronic gout of m ultiple 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 tophus M1A.09X0 [place] [address] [address] [facility] [id number] [address] [place] [address] Jan, Other chronic pain G89.29 [place] [address] [address] [place] [id number] [place] [address] Dec, Anticoagulant long-term use Z79.01 ; Factor V Leiden D68.51 and Other chronic pain G89.29 [place] [address] [address] [place] [address] Dec, Other chronic pain G89.29 [place] [address] [address] [place] [id number] [address] [place] [address] Nov, Other chronic pain G89.29 [place] [address] [address] [place] [id number] [address] [place] [address] Oct, Other chronic pain G89.29 [place] [address] [address] [place] [address] Sep, Anticoagulant long-term use Z79.01 [place] [address] [address] [facility] [id number] [address] [place] [address] Sep, Chronic prescription opiate use Z79.899 ; Anticoagulant long-term use Z79.01 ; Essential hypertension I10 ; Pure hypercholesterolemia E78.00 ; Factor V Leiden D68.51 ; Venous stasis ulcers, left I83.029 ; Other chronic pain G89.29 and 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.09X0 [place] [address] [address] [facility] [id number] [address] [place] [address] Aug, Anticoagulant long-term use Z79.01 [facility] [address] [facility] [id number] [address] [place] [address] Aug, Other chronic pain G89.29 [facility] [address] [facility] [id number] [address] [place] [address] Aug, Essential hypertension I10 a nd Factor V Leiden D68.[id number] [place] [id number] 15 Aug, 2016 Acute right ankle pain M25.571 and Tendo nitis of ankle M77.50 [place] [address] [address] [facility] [id number] [address] [place] [address] Aug, [place] [address] [address] [facility] [id number] [address] [place] [address] July, Other chronic pain G89.29 [place] [address] [address] [facility] [id number] [address] [place] [address] Jun, Other chronic pain G89.29 [place] [address] [address] [facility] [id number] [address] [place] [address] Jun, Other chronic pain G89.29 [place] [address] [address] [facility] [id number] [address] [place] [address] Jun, Anticoagulant long-term use Z79.01 [place] [address] [facility] [id number] [address] [place] [address] May, Other chronic pain G89.29 [place] [address] [address] [facility] [id number] [address] [place] [address] May, Anticoagulant long-term use Z79.01 [facility] [address] [facility] [id number] [address] [place] [address] May, Other chronic pain G89.29 [place] [address] [address] [facility] [id number] [address] [place] [address] 06 Apr, 2016 Anticoagulant long-term use Z79.01 [facility] [address] [facility] [id number] [address] [place] [address] Apr, Other chronic pain G89.29 [facility] [address] [facility] [id number] [address] [place] [address] Apr, Anticoagulant long-term use Z79.01 and Pure hypercholesterolemia E78.00 [place] [address] [address] [facility] [id number] [address] [place] [address] Mar, [place] [address] [address] [facility] [id number] [address] [place] [address] Mar, Anticoagulant long-term use Z79.01 [place] [address] [address] [place] [id number] [address] [place] [address] Mar, Other chronic pain G89.29 [place] [address] [address] Feb, Essential hypertension I10 ; Chronic prescription opiate use Z79.899 ; Other chronic pain G89.29 ; Screening Z13.9 ; Factor V Leiden D68.51 ; Anticoagulant long-term use Z79.01 ; Venous stasis dermatitis of left lower extremity I83.12 and Pure hypercholesterolemia E78.00 [place] [address] [address] [place] [address] 14 Jan, 2016 Anticoagulant long-term use Z79.01 [place] [address] [address] [facility] [id number] [address] [place] [address] Jan, Anticoagulant long-term use Z79.01 [place] [address] [address] [facility] [id number] [address] [place] [address] Jan, [place] [address] [address] [place] [id number] [address] [place] [address] Jan, [place] [address] [address] [place] [address] Dec, [place] [address] [facility] [id number] [address] [place] [address] Nov, [facility] [address] [facility] [id number] [address] [place] [address] Oct, Anticoagulant long-term use Z79.01 [facility] [address] [facility] [id number] [address] [place] [address] Oct, [facility] [address] [facility] [id number] [address] [place] [address] Oct, Anticoagulant long-term use Z79.01 [facility] [address] [facility] [id number] [address] [place] [address] Sep, [facility] [address] [facility] [id number] [address] [place] [address] Aug, [facility] [address] [facility] [id number] [address] [place] [address] Aug, Chronic prescription opiate use Z79.899 ; Other chronic pain G89.29 ; Essential hypertension I10 and Pure hypercholesterolemia E78.0 [facility] [address] [facility] [id number] [address] [place] [address] July, Hyperlipidemia, group D E78. 3 and Anticoagulant long-term use Z79.01 [facility] [address] [facility] [id number] [address] [place] [address] July, Hyperlipidemia, group D E78. 3 ; Essential hypertension I10 and Factor V Leiden D68.51 [facility] [address] [facility] [id number] [address] [place] [address] July, Essential hypertension I10 [facility] [address] [facility] [id number] [address] [place] [address] Jun, Hyperlipidemia, group D E78. 3 [facility] [address] [facility] [id number] [address] [place] [address] Jun, Factor V Leiden D68.51 [facility] [address] [facility] [id number] [address] [place] [address] May, Factor V Leiden D68.51 ; Hyp erlipidemia, group D E78.3 ; Essential hypertension I10 ; Other chronic pain G89.29 and Anticoagulant long-term use Z79.01 [facility] [address] [facility] [id number] [address] [place] [address] 04 May, 2015 Anticoagulant long-term use Z79.01 [facility] [address] [facility] [id number] [address] [place] [address] 04 May, 2015 Anticoagulant long-term use Z79.01 [facility] [address] [facility] [id number] [address] [place] [address] May, [facility] [address] [facility] [id number] [place] [address] Apr, [facility] [address] [address] Mar, [facility] [address] [facility] [id number] [address] [place] [address] Mar, [facility] [address] [address] Feb, Anticoagulant long-term use Z79.01 [facility] [address] [facility] [id number] [address] [place] [address] 16 Feb, 2015 Chronic prescription opiate use Z79.899 ; Other chronic pain G89.29 ; Hyperlipidemia, group D E78.3 ; Factor V Leiden D68.51 and Anticoagulant long- term use Z79.01 [facility] [address] [facility] [id number] [address] [place] [address] Feb, [facility] [address] [address] 05 Jan, 2015 [facility] [address] [place] [id number] [address] [place] [address] 15 Dec, 2014 Hyperlipidemia, unspecified E78.5 [facility] [address] [facility] [id number] [address] [place] [address] Dec, Cellulitis of left lower ext remity L03.116 ; Venous stasis ulcers, left I83.029 and Factor V Leiden D68.51 [facility] [address] [facility] [id number] [address] [place] [address] Dec, Hyperlipidemia 272.4 and Fac tor 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 [facility] [address] [facility] [id number] [address] [place] [address] Dec, [facility] [address] [facility] [id number] [address] [place] [address] Nov, 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 [facility] [address] [facility] [id number] [address] [place] [address] Nov, [facility] [address] [place] [id number] [place] [address] Nov, [facility] [address] [place] [id number] [address] [place] [address] Nov, [facility] [address] [place] [id number] [place] [address] Oct, [facility] [address] [place] [id number] [address] [place] [address] Oct, Hyperlipidemia 272.4 ; Chron ic pain disorder 338.4 ; Venous stasis ulcer of left lower extremity 454.0 and 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 [facility] [address] [facility] [id number] [address] [place] [address] Sep, [facility] [address] [place] [id number] [place] [address] Sep, [facility] [address] [place] [id number] [place] [address] Sep, Hyperlipidemia 272.4 and Fac tor 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 [facility] [address] [place] [id number] [place] [address] Aug, [facility] [address] [facility] [id number] [address] [place] [address] Aug, 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 [facility] [address] [id number] [address] [place] [address] July, [facility] [address] [id number] [address] [place] [address] July, Essential hypertension, fito gn 401.1 ; 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 ; Chronic pain disorder 338.4 ; Hyperlipidemia 272.4 and Venous stasis ulcer of left lower extremity 454.0 [facility] [address] [id number] [address] [place] [address] Jun, [facility] [address] [facility] [id number] [address] [place] [address] Jun, [facility] [address] [id number] [address] [place] [address] May, [facility] [address] [id number] [address] [place] [address] May, [facility] [address] [id number] [address] [place] [phone] Apr, [facility] [address] [facility] [id number] [address] [place] [phone] Apr, [facility] [address] [id number] [address] [place] [phone] Apr, [facility] [address] [id number] [address] [place] [phone] Apr, [facility] [address] [id number] [address] [place] [phone] Apr, [facility] [address] [id number] [address] [place] [address] Apr, [facility] [address] [facility] [id number] [address] [place] [id number] 15 Mar, 2014 [facility] [address] [id number] [address] [place] [address], [place] [address] 15 Mar, 2014 [facility] [address] [id number] [address] [place] [address], [place] [address] Mar, [facility] [address] [id number] [address] [place] [address], [place] [address] Mar, [facility] [address] [id number] [address] [place] [address], [place] [address] Feb, [facility] [address] [id number] [address] [place] [address], [place] [address] 17 Feb, 2014 [facility] [address] [id number] [address] [place] [address], [place] [address] 16 Feb, 2014 [facility] [address] [id number] [address] [place] [address], [place] [address] Feb, [facility] [address] [id number] [address] [place] [address], [place] [address] 24 Jan, 2014 [facility] [address] [id number] [address] [place] [address], [place] [address] Jan, [facility] [address] [id number] [address] [place] [address], [place] [address] Jan, [facility] [address] [id number] [address] [place] [address], [place] [address] Jan, [facility] [address] [id number] [address] [place] [address], [place] [address] Jan, [facility] [address] [id number] [address] [place] [address], [place] [address] Jan, [facility] [address] [id number] [address] [place] [address], [place] [address] Dec, [facility] [address] [id number] [address] [place] [address], [place] [address] Dec, [facility] [address] [id number] [address] [place] [address], [place] [address] Oct, [facility] [address] [id number] [address] [place] [address], [place] [address] Oct, [facility] [address] [id number] [address] [place] [address], [place] [address] Sep, [facility] [address] [id number] [address] [place] [address], [place] [address] Sep, [facility] [address] [id number] [address] [place] [address], [place] [address] Sep, [facility] [address] [id number] [address] [place] [address], [place] [address] Sep, [facility] [address] [id number] [address] [place] [address], [place] [address] Aug, [facility] [address] [id number] [address] [place] [address], [place] [address] Aug, [facility] [address] [id number] [address] [place] [address], [place] [address] July, [facility] [address] [id number] [address] [place] [address], [place] [address] July, [facility] [address] [id number] [address] [place] [address], [place] [address] Jun, [facility] [address] [id number] [address] [place] [address], [place] [address] Jun, [facility] [address] [id number] [address] [place] [address], [place] [address] May, [facility] [address] [id number] [address] [place] [address], [place] [address] May, [facility] [address] [id number] [address] [place] [address], [place] [address] Apr, [facility] [address] [id number] [address] [place] [address], [place] [address] Apr, [facility] [address] [id number] [address] [place] [address], [place] [address] Mar, [facility] [address] [id number] [address] [place] [address], [place] [address] Mar, [facility] [address] [id number] [address] [place] [address], [place] [address] Jan, [facility] [address] [id number] [address] [place] [address], [place] [address] Jan, [facility] [address] [id number] [address] [place] [address], [place] [address] Jan, [facility] [address] [id number] [address] [place] [address], [place] [address] Jan, [facility] [address] [id number] [address] [place] [address], [place] [address] Jan, [facility] [address] [id number] [address] [place] [address], [place] [address] Dec, [facility] [address] [id number] [address] [place] [address], [place] [address] Dec, [facility] [address] [id number] [address] [place] [address], [place] [address] Dec, [facility] [address] [id number] [address] [place] [address], [place] [address] Nov, [facility] [address] [id number] [address] [place] [address], [place] [address] Nov, [facility] [address] [id number] [address] [place] [address], [place] [address] Sep, [facility] [address] [id number] [address] [place] [address], [place] [address] Sep, [facility] [address] [id number] [address] [place] [address], [place] [address] Aug, [facility] [address] [id number] [address] [place] [address] Aug, [facility] [address] [id number] [place] [id number] July, [facility] [address] [id number] [place] [id number] Jun, [facility] [address] [id number] [place] [id number] Apr, [facility] [address] [id number] [place] [id number] Mar, [facility] [address] [facility] [id number] [address] [place] [id number] Mar, [facility] [address] [id number] [place] [id number] Mar, [facility] [address] [facility] [id number] [address] [place] [phone] Mar, [facility] [address] [id number] [place] [id number] Feb, [facility] [address] [facility] [id number] [address] [place] [phone] Feb, [facility] [address] [id number] [place] [id number] Feb, [facility] [address] [facility] [id number] [address] [place] [phone] Feb, [facility] [address] [id number] [place] [id number] Oct, [facility] [address] [id number] [place] [id number] Oct, [facility] [address] [id number] [place] [id number] July, [facility] [address] [id number] [place] [id number] July, [facility] [address] [id number] [place] [id number] Jun, [facility] [address] [id number] [place] [id number] Jun, [facility] [address] [facility] [id number] [place] [id number] Jun, [facility] [address] [id number] [place] [id number] Mar, [facility] [address] [facility] [id number] [place] [id number] Mar, [facility] [address] [facility] [id number] [address] [place] [phone] Feb, [facility] [address] [id number] [address] [place] [phone] Feb, [facility] [address] [facility] [id number] [address] [place] [phone] Jan, [facility] [address] [facility] [id number] [address] [place] [phone] Jan, [facility] [address] [facility] [id number] [address] [place] [phone] Jan, [facility] [address] [facility] [id number] [address] [place] [phone] Jan, [facility] [address] [facility] [id number] [address] [place] [phone] Jan, [facility] [address] [facility] [id number] [address] [place] [phone] Aug, [facility] [address] [facility] [id number] [address] [place] [phone] Apr, IMMUNIZATIONS No Known Immunizations SOCIAL HISTORY Never Assessed REASON FOR VISIT PLAN OF CARE VITAL SIGNS MEDICATIONS Unknown Medications RESULTS No Results PROCEDURES Procedure Date Ordered Result Body Site PROTHROMBIN TIME October 22, 2012 INSTRUCTIONS MEDICATIONS ADMINISTERED No Known Medications [...]
--- OUTSIDE RECORDS SUMMARY | 2019-11-08 12:55 | XMS REPORT ---
Author Author Zana ORTIZ Organization [facility] Address [address] [place] [address] Care Team Providers Care Interventional Nurse Name Role Phone AVANI ORTIZ Unavailable PROBLEMS Type Condition ICD9-CM Code QSD38-RO Code Onset Dates Condition S tatus SNOMED Code Problem Factor V Leiden D68.51 Active 3070 66724 Problem Anticoagulant long-term use Z79.01 Ac tive 719417116 Problem Post-phlebitic syndrome I87.009 Active 11604110 Problem 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 97182043 Problem Other chronic pain G89.29 Active 8 6868837 Problem Venous stasis ulcers, left I83.029 Act ozzy 132168414 Problem Essential hypertension I10 Active 18966278 Problem Venous anomaly Q27.9 Active 67190 4003 Problem Congenital single kidney Q60.0 Activ e 33161011 Problem Chronic prescription opiate use Z79.899 Active 880174288 Problem Pure hypercholesterolemia E78.00 Acti ve [id number] ALLERGIES No Information ENCOUNTERS Encounter Location Date Diagnosis [address] [id number] [id number] July, Anticoagulant long-term use Z79.01 [facility] [address] [facility] [id number] [address] [place] [address] July, [facility] [address] [facility] [id number] [address] [place] [address] July, [facility] [address] [facility] [id number] [address] [place] [address] July, Other chronic pain G89.29 [facility] [address] [facility] [id number] [address] [place] [address] July, Other chronic pain G89.29 [place] [address] [facility] [id number] [address] [place] [address] July, Other chronic pain G89.29 [place] [address] [facility] [id number] [address] [place] [address] July, Essential hypertension I10 ; Venous stasis ulcers, left I83.029 ; Other chronic pain G89.29 ; Factor V Leiden D68.51 and 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.09X0 [place] [address] [facility] [id number] [address] [place] [address] Jun, Other chronic pain G89.29 [place] [address] [facility] [id number] [address] [place] [address] Jun, Anticoagulant long-term use Z79.[address] [facility] [address] [id number] [place]ALLS[place] [id number] May, Anticoagulant long-term use Z79.01 [place] [address] [facility] [id number] [address] [place] [address] May, Other chronic pain G89.29 [place] [address] [facility] [id number] [address] [place] [address] May, Anticoagulant long-term use Z79.[address] [facility] [address] [id number] [place]ALLS[place] [id number] Apr, Anticoagulant long-term use Z79.01 [place] [address] [facility] [id number] [address] [place] [address] Apr, Other chronic pain G89.29 [place] [address] [facility] [id number] [address] [place] [address] Apr, Anticoagulant long-term use Z79.[address] [facility] [address] [id number] [place]ALLS[place] [id number] Apr, Anticoagulant long-term use Z79.[address] [facility] [address] [id number] [facility] [id number] 07 Apr, 2019 Factor V Leiden D68.51 [place] [address] [facility] [id number] [address] [place] [address] Mar, Anticoagulant long-term use Z79.01 [place] [address] [facility] [id number] [address] [place] [address] Mar, Factor V Leiden D68.51 [place] [address] [facility] [id number] [address] [place] [address] Mar, Occult blood positive stool R19.5 [place] [address] [facility] [id number] [address] [place] [address] Mar, Other chronic pain G89.29 [place] [address] [facility] [id number] [address] [place] [address] Mar, Factor V Leiden D68.51 and A nticoagulant long-term use Z79.[address] [facility] [id number] [place] [id number] Mar, Anticoagulant long-term use Z79.[address] [facility] [id number] [place] [id number] Mar, Anticoagulant long-term use Z79.01 [place] [address] [facility] [id number] [address] [place] [address] Mar, Anticoagulant long-term use Z79.01 [place] [address] [facility] [id number] [address] [place] [address] Mar, Pure hypercholesterolemia E7 8.00 [facility] [id number] [place] [id number] Mar, Anticoagulant long-term use Z79.01 [place] [address] [facility] [id number] [address] [place] [address] Mar, Other chronic pain G89.29 [place] [address] [facility] [id number] [address] [place] [address] Feb, Anticoagulant long-term use Z79.01 and Essential hypertension I10 [place] [address] [facility] [id number] [address] [place] [address] Feb, Anticoagulant long-term use Z79.01 ; Essential hypertension I10 ; Chronic prescription opiate use Z79.899 ; Other chronic pain G89.29 ; Venous stasis ulcers, left I83.029 ; 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.09X0 and Pure hypercholesterolemia E78.[address] [facility] [address] [id number] FALLS[place] [id number] Feb, Anticoagulant long-term use Z79.01 [place] [address] [facility] [id number] [address] [place] [address] Feb, Anticoagulant long-term use Z79.01 [place] [address] [facility] [id number] [address] [place] [address] Feb, Other chronic pain G89.29 [facility] [address] [id number] FALLS[place] [id number] Feb, Anticoagulant long-term use Z79.01 [place] [address] [facility] [id number] [address] [place] [address] Jan, Anticoagulant long-term use Z79.01 [facility] [address] [id number] FALLS[place] [id number] Jan, Anticoagulant long-term use Z79.01 [facility] [address] [id number] [place]ALLS[place] [id number] Jan, Anticoagulant long-term use Z79.01 [place] [address] [facility] [id number] [address] [place] [address] Jan, Anticoagulant long-term use Z79.01 [facility] [address] [id number] [place]ALLS[place] [id number] Jan, Anticoagulant long-term use Z79.01 [place] [address] [facility] [id number] [address] [place] [address] Jan, Anticoagulant long-term use Z79.01 [facility] [address] [id number] FALLS, [place] [id number] Jan, Anticoagulant long-term use Z79.01 [facility] [address] [facility] [id number] [address] [place] [address] Jan, [facility] [id number] [place] [address] [id number] Jan, Anticoagulant long-term use Z79.01 [facility] [address] [facility] [id number] [address] [place] [address] Jan, [facility] [address] [facility] [id number] [address] [place] [address] Jan, Other chronic pain G89.29 [facility] [address] [facility] [id number] [address] [place] [address] Jan, Anticoagulant long-term use Z79.[address] [facility] [address] [id number] FALLS[place] [id number] Dec, Anticoagulant long-term use Z79.01 [facility] [address] [facility] [id number] [address] [place] [address] Dec, Anticoagulant long-term use Z79.[address] [facility] [address] [id number] FALLS[place] [id number] Dec, Anticoagulant long-term use Z79.[address] [facility] [id number] [place] [address] [id number] Dec, Anticoagulant long-term use Z79.01 [facility] [address] [facility] [id number] [address] [place] [address] Dec, Anticoagulant long-term use Z79.01 [facility] [address] [facility] [id number] [address] [place] [address] Dec, Anticoagulant long-term use Z79.01 [facility] [address] [place] [id number] [address] [place] [address] 11 Dec, 2018 Anticoagulant long-term use Z79.01 [facility] [address] [facility] [id number] [address] [place] [address] Dec, Other chronic pain G89.29 [facility] [address] [facility] [id number] [address] [place] [address] Dec, Anticoagulant long-term use Z79.01 [facility] [address] [facility] [id number] [address] [place] [address] Dec, [facility] [address] [facility] [id number] [address] [place] [address] Dec, Other chronic pain G89.29 [facility] [id number] [place] [address] [id number] Dec, Anticoagulant long-term use Z79.01 [facility] [address] [facility] [id number] [address] [place] [address] Nov, Anticoagulant long-term use Z79.01 [facility] [id number] [place] [address] [id number] Nov, Anticoagulant long-term use Z79.01 [facility] [address] [facility] [id number] [address] [place] [address] Nov, Anticoagulant long-term use Z79.01 [facility] [address] [facility] [id number] [address] [place] [address] Nov, Other chronic pain G89.29 [facility] [address] [facility] [id number] [address] [place] [address] Nov, Other chronic pain G89.29 [facility] [address] [facility] [id number] [address] [place] [address] Nov, Anticoagulant long-term use Z79.01 [facility] [address] [id number] [place]ALLS[place] [id number] Nov, Factor V Leiden D68.51 [facility] [address] [id number] [place]ALLS, [place] [id number] Nov, Factor V Leiden D68.51 [facility] [address] [facility] [id number] [address] [place] [address] Nov, Anticoagulant long-term use Z79.01 [facility] [address] [id number] FALLS, [place] [id number] Nov, Anticoagulant long-term use Z79.01 [facility] [address] [facility] [id number] [address] [place] [address] Nov, Essential hypertension I10 ; Factor V Leiden D68.51 and Anticoagulant long-term use Z79.01 [facility] [address] [id number] FALLS, [place] [id number] Oct, Anticoagulant long-term use Z79.01 [facility] [address] [facility] [id number] [address] [place] [address] Oct, [facility] [address] [facility] [id number] [address] [place] [address] Oct, Anticoagulant long-term use Z79.01 [facility] [address] [facility] [id number] [address] [place] [address] Oct, Other chronic pain G89.29 [facility] [address] [facility] [id number] [address] [place] [address] Oct, Anticoagulant long-term use Z79.01 [facility] [address] [facility] [id number] [address] [place] [address] Oct, [facility] [address] [facility] [id number] [address] [place] [address] Sep, Anticoagulant long-term use Z79.01 [facility] [address] [id number] FALLS, [place] [id number] Sep, Anticoagulant long-term use Z79.01 [facility] [address] [facility] [id number] [address] [place] [address] Sep, Other chronic pain G89.29 [facility] [address] [facility] [id number] [address] [place] [address] Sep, Anticoagulant long-term use Z79.01 [facility] [address] [id number] FALLS, [place] [id number] Sep, Anticoagulant long-term use Z79.01 [facility] [address] [facility] [id number] [address] [place] [address] Aug, Anticoagulant long-term use Z79.01 [place] [address] [facility] [id number] [address] [place] [address] Aug, Anticoagulant long-term use Z79.01 [place] [address] [facility] [id number] [address] [place] [address] Aug, Other chronic pain G89.29 [place] [address] [facility] [id number] [address] [place] [address] Aug, Other chronic pain G89.29 ; Anticoagulant long-term use Z79.01 ; 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.09X0 ; Oral pain K13.79 ; Dental infection K04.7 ; Essential hypertension I10 and Pure hypercholesterolemia E78.00 [place] [address] [facility] [id number] [address] [place] [address] July, Other chronic pain G89.29 [facility] [address] [facility] [id number] [address] [place] [address] Jun, Other chronic pain G89.29 [facility] [address] [facility] [id number] [address] [place] [address] Jun, [place] [address] [facility] [id number] [address] [place] [address] Jun, [facility] [address] [id number] FALLS[place] [id number] Jun, Anticoagulant long-term use Z79.01 and I diopathic chronic gout of multiple 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 tophus M1A.09X0 [facility] [address] [facility] [id number] [address] [place] [address] May, Other chronic pain G89.29 [facility] [address] [facility] [id number] [address] [place] [address] May, [facility] [address] [facility] [id number] [address] [place] [address] May, Anticoagulant long-term use Z79.01 [facility] [address] [facility] [id number] [address] [place] [address] May, [facility] [address] [id number] [place]ALLS[place] [id number] May, Anticoagulant long-term use Z79.01 [place] [address] [facility] [id number] [address] [place] [address] May, Anticoagulant long-term use Z79.01 [place] [address] [facility] [id number] [address] [place] [address] May, Anticoagulant long-term use Z79.[address] [facility] [address] [id number] FALLS, [place] [id number] May, Factor V Leiden D68.51 [place] [address] [facility] [id number] [address] [place] [address] Apr, Other chronic pain G89.29 [facility] [address] [facility] [id number] [address] [place] [address] Apr, Idiopathic chronic gout of m ultiple 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 tophus M1A.09X0 [facility] [address] [id number] FALLS, [place] [id number] Apr, Anticoagulant long-term use Z79.[address] [facility] [address] [id number] FALLS, [place] [id number] Apr, Anticoagulant long-term use Z79.01 ; Med ication side effect T88.7XXA and 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.09X0 [place] [address] [facility] [id number] [address] [place] [address] Apr, [place] [address] [facility] [id number] [address] [place] [address] Apr, Anticoagulant long-term use Z79.01 [place] [address] [place] [id number] [address] [place] [address] Apr, Medication side effect T88.7 XXA and Factor V Leiden D68.51 [place] [address] [place] [id number] [address] [place] [address] Apr, Idiopathic chronic gout of m ultiple 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 tophus M1A.09X0 and Anticoagulant long-term use Z79.[address] [id number] FALLS[place] [id number] Mar, Factor V Leiden D68.51 and Anticoagulant long-term use Z79.01 [place] [address] [facility] [id number] [address] [place] [address] Mar, Factor V Leiden D68.51 ; Ant icoagulant long-term use Z79.01 ; 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.09X0 ; Pure hypercholesterolemia E78.00 ; Other chronic pain G89.29 and BMI 40.0-44.9, adult Z68.41 [place] [address] [facility] [id number] [address] [place] [address] Mar, [place] [address] [facility] [id number] [address] [place] [address] Mar, Other chronic pain G89.29 [place] [address] [facility] [id number] [address] [place] [address] Feb, Idiopathic chronic gout of m ultiple 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 tophus M1A.09X0 [facility] [address] [id number] [place] [id number] Feb, Anticoagulant long-term use Z79.01 and I diopathic chronic gout of multiple 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 tophus M1A.09X0 [facility] [address] [facility] [id number] [address] [place] [address] 05 Feb, 2018 Anticoagulant long-term use Z79.01 and 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.09X0 [facility] [address] [facility] [id number] [address] [place] [address] Feb, [place] [address] [facility] [id number] [address] [place] [address] Feb, Other chronic pain G89.29 [place] [address] [facility] [id number] [address] [place] [address] Jan, Other chronic pain G89.29 [place] [address] [facility] [id number] [address] [place] [address] Dec, Other chronic pain G89.29 [place] [address] [facility] [id number] [address] [place] [address] Dec, Anticoagulant long-term use Z79.01 [place] [address] [facility] [id number] [address] [place] [address] Dec, Chronic prescription opiate use Z79.899 ; Factor V Leiden D68.51 ; Other chronic pain G89.29 and Anticoagulant long-term use Z79.01 [place] [address] [facility] [id number] [address] [place] [address] Nov, Other chronic pain G89.29 [place] [address] [facility] [id number] [address] [place] [address] Oct, Other chronic pain G89.29 [place] [address] [facility] [id number] [address] [place] [address] Sep, Other chronic pain G89.29 [place] [address] [facility] [id number] [address] [place] [id number] Aug, Other chronic pain G89.29 [facility] [address] [facility] [id number] [address] [place] [address] Aug, Venous stasis ulcers, left I 83.029 [facility] [address] [facility] [id number] [address] [place] [address] July, Other chronic pain G89.29 [facility] [address] [facility] [id number] [address] [place] [address] July, Venous stasis ulcers, left I 83.029 and Snoring R06.83 [facility] [address] [facility] [id number] [address] [place] [address] Jun, Idiopathic chronic gout of m ultiple 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 tophus M1A.09X0 [place] [address] [facility] [id number] [address] [place] [id number] Jun, Acute renal insufficiency N2 8.9 [facility] [address] [facility] [id number] [address] [place] [id number] Jun, Other chronic pain G89.29 [facility] [address] [facility] [id number] [address] [place] [id number] Jun, Acute renal insufficiency N2 8.[address] [place] [id number] [place] [id number] Jun, Idiopathic chronic gout of multiple site s without tophus M1A.09X0 ; Essential hypertension I10 and Anticoagulant long-term use Z79.01 [facility] [address] [facility] [id number] [address] [place] [id number] Jun, Anticoagulant long-term use Z79.01 and Essential hypertension I10 [facility] [address] [facility] [id number] [address] [place] [id number] May, Idiopathic chronic gout of m ultiple 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 tophus M1A.09X0 [place] [address] [facility] [id number] [address] [place] [id number] May, [place] [id number] [facility] [id number] [address] [place] [id number] May, Essential hypertension I10 ; Pure hypercholesterolemia E78.00 ; Anticoagulant long-term use Z79.01 and 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.09X0 [place] [address] [facility] [id number] [address] [place] [id number] May, Other chronic pain G89.29 [place] [address] [facility] [id number] [address] [place] [id number] May, Anticoagulant long-term use Z79.01 [place] [address] [facility] [id number] [address] [place] [id number] May, Chronic prescription opiate use Z79.899 ; Other chronic pain G89.29 ; Essential hypertension I10 ; Factor V Leiden D68.51 ; Anticoagulant long-term use Z79.01 ; Pure hypercholesterolemia E78.00 ; Venous stasis ulcers, left I83.029 ; 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.09X0 and Cellulitis of left lower extremity L03.116 [place] [address] [place] [id number] [address] [place] [id number] Apr, Other chronic pain G89.29 [place] [address] [facility] [id number] [address] [place] [phone] Mar, Other chronic pain G89.29 [place] [address] [facility] [id number] [address] [place] [id number] Mar, Factor V Leiden D68.51 ; Pur e hypercholesterolemia E78.00 and Other chronic pain G89.29 [place] [address] [facility] [id number] [address] [place] [phone] Feb, Other chronic pain G89.29 [place] [address] [facility] [id number] [address] [place] [id number] Jan, Idiopathic chronic gout of m ultiple 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 tophus M1A.09X0 [place] [address] [facility] [id number] [address] [place] [id number] 08 Jan, 2017 Other chronic pain G89.29 [place] [address] [facility] [id number] [address] [place] [address] 27 Dec, 2016 Anticoagulant long-term use Z79.01 ; Factor V Leiden D68.51 and Other chronic pain G89.29 [place] [address] [facility] [id number] [address] [place] [address] Dec, Other chronic pain G89.29 [place] [address] [facility] [id number] [address] [place] [address] Nov, Other chronic pain G89.29 [place] [address] [facility] [id number] [address] [place] [address] Oct, Other chronic pain G89.29 [place] [address] [facility] [id number] [address] [place] [address] Sep, Anticoagulant long-term use Z79.01 [place] [address] [facility] [id number] [address] [place] [address] Sep, Chronic prescription opiate use Z79.899 ; Anticoagulant long-term use Z79.01 ; Essential hypertension I10 ; Pure hypercholesterolemia E78.00 ; Factor V Leiden D68.51 ; Venous stasis ulcers, left I83.029 ; Other chronic pain G89.29 and 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.09X0 [place] [address] [facility] [id number] [address] [place] [address] Aug, Anticoagulant long-term use Z79.01 [place] [address] [facility] [id number] [address] [place] [address] Aug, Other chronic pain G89.29 [place] [address] [facility] [id number] [address] [place] [address] Aug, Essential hypertension I10 a nd Factor V Leiden D68.51 [facility] [id number] [place] [id number] 15 Aug, 2016 Acute right ankle pain M25.571 and Tendo nitis of ankle M77.50 [facility] [address] [facility] [id number] [address] [place] [address] Aug, [facility] [address] [facility] [id number] [address] [place] [address] July, Other chronic pain G89.29 [facility] [address] [facility] [id number] [address] [place] [address] Jun, Other chronic pain G89.29 [place] [address] [facility] [id number] [address] [place] [address] Jun, Other chronic pain G89.29 [place] [address] [facility] [id number] [address] [place] [address] Jun, Anticoagulant long-term use Z79.01 [place] [address] [facility] [id number] [address] [place] [address] May, Other chronic pain G89.29 [place] [address] [facility] [id number] [address] [place] [address] May, Anticoagulant long-term use Z79.01 [place] [address] [facility] [id number] [address] [place] [address] May, Other chronic pain G89.29 [place] [address] [facility] [id number] [address] [place] [address] Apr, Anticoagulant long-term use Z79.01 [place] [address] [facility] [id number] [address] [place] [address] Apr, Other chronic pain G89.29 [place] [address] [facility] [id number] [address] [place] [address] Apr, Anticoagulant long-term use Z79.01 and Pure hypercholesterolemia E78.00 [place] [address] [facility] [id number] [address] [place] [address] Mar, [facility] [address] [facility] [id number] [address] [place] [address] Mar, Anticoagulant long-term use Z79.01 [facility] [address] [facility] [id number] [address] [place] [address] Mar, Other chronic pain G89.29 [facility] [address] [address] Feb, Essential hypertension I10 ; Chronic prescription opiate use Z79.899 ; Other chronic pain G89.29 ; Screening Z13.9 ; Factor V Leiden D68.51 ; Anticoagulant long-term use Z79.01 ; Venous stasis dermatitis of left lower extremity I83.12 and Pure hypercholesterolemia E78.00 [facility] [address] [place] [id number] [address] [place] [address] 14 Jan, 2016 Anticoagulant long-term use Z79.01 [facility] [address] [place] [id number] [address] [place] [address] Jan, Anticoagulant long-term use Z79.01 [facility] [address] [address] Jan, [facility] [address] [place] [id number] [address] [place] [address] Jan, [facility] [address] [place] [id number] [address] [place] [address] Dec, [facility] [address] [facility] [id number] [address] [place] [address] Nov, [facility] [address] [place] [id number] [address] [place] [address] Oct, Anticoagulant long-term use Z79.01 [facility] [address] [place] [id number] [address] [place] [address] Oct, [facility] [address] [address] Oct, Anticoagulant long-term use Z79.01 [facility] [address] [facility] [id number] [address] [place] [address] Sep, [facility] [address] [facility] [id number] [address] [place] [address] Aug, [facility] [address] [facility] [id number] [address] [place] [address] Aug, Chronic prescription opiate use Z79.899 ; Other chronic pain G89.29 ; Essential hypertension I10 and Pure hypercholesterolemia E78.0 [facility] [address] [facility] [id number] [address] [place] [address] July, Hyperlipidemia, group D E78. 3 and Anticoagulant long-term use Z79.01 [facility] [address] [facility] [id number] [address] [place] [address] July, Hyperlipidemia, group D E78. 3 ; Essential hypertension I10 and Factor V Leiden D68.51 [facility] [address] [facility] [id number] [address] [place] [address] July, Essential hypertension I10 [place] [address] [facility] [id number] [address] [place] [address] Jun, Hyperlipidemia, group D E78. 3 [facility] [address] [facility] [id number] [address] [place] [address] Jun, Factor V Leiden D68.51 [facility] [address] [facility] [id number] [address] [place] [address] May, Factor V Leiden D68.51 ; Hyp erlipidemia, group D E78.3 ; Essential hypertension I10 ; Other chronic pain G89.29 and Anticoagulant long-term use Z79.01 [facility] [address] [facility] [id number] [address] [place] [address] May, Anticoagulant long-term use Z79.01 [facility] [address] [facility] [id number] [address] [place] [address] May, Anticoagulant long-term use Z79.01 [facility] [address] [facility] [id number] [address] [place] [address] May, [facility] [address] [facility] [id number] [address] [place] [address] Apr, [facility] [address] [address] Mar, [facility] [address] [facility] [id number] [address] [place] [address] Mar, [place] [address] [address] Feb, Anticoagulant long-term use Z79.01 [place] [id number] [place] [address] 16 Feb, 2015 Chronic prescription opiate use Z79.899 ; Other chronic pain G89.29 ; Hyperlipidemia, group D E78.3 ; Factor V Leiden D68.51 and Anticoagulant long- term use Z79.01 [place] [address] [place] [id number] [address] [place] [address] Feb, [place] [address] [place] [id number] [address] [place] [address] Jan, [place] [address] [address] Dec, Hyperlipidemia, unspecified E78.5 [place] [address] [place] [id number] [address] [place] [address] 15 Dec, 2014 Cellulitis of left lower ext remity L03.116 ; Venous stasis ulcers, left I83.029 and Factor V Leiden D68.51 [place] [address] [place] [id number] [address] [place] [address] 09 Dec, 2014 Hyperlipidemia 272.4 and Fac tor 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 [place] [address] [place] [id number] [address] [place] [address] Dec, [facility] [address] [id number] [address] [place] [address] Nov, 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 [facility] [address] [id number] [address] [place] [address] Nov, [facility] [address] [facility] [id number] [address] [place] [address] Nov, [facility] [address] [facility] [id number] [address] [place] [address] Nov, [facility] [address] [facility] [id number] [address] [place] [address] Oct, [facility] [address] [facility] [id number] [address] [place] [address] Oct, Hyperlipidemia 272.4 ; Chron ic pain disorder 338.4 ; Venous stasis ulcer of left lower extremity 454.0 and 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 [facility] [address] [facility] [id number] [address] [place] [address] Sep, [facility] [address] [facility] [id number] [address] [place] [address] Sep, [facility] [address] [facility] [id number] [address] [place] [address] Sep, Hyperlipidemia 272.4 and Fac tor 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 [facility] [address] [facility] [id number] [address] [place] [address] Aug, [facility] [address] [facility] [id number] [address] [place] [address] Aug, 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 [facility] [address] [facility] [id number] [address] [place] [address] July, [facility] [address] [facility] [id number] [address] [place] [address] July, Essential hypertension, fito gn 401.1 ; 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 ; Chronic pain disorder 338.4 ; Hyperlipidemia 272.4 and Venous stasis ulcer of left lower extremity 454.0 [facility] [address] [id number] [address] [place] [address] 14 Jun, 2014 [facility] [address] [id number] [address] [place] [address] 13 Jun, 2014 [facility] [address] [id number] [address] [place] [address] May, [facility] [address] [id number] [address] [place] [address] May, [facility] [address] [id number] [address] [place] [address] Apr, [facility] [address] [id number] [address] [place] [address] Apr, [facility] [address] [id number] [address] [place] [address] Apr, [facility] [address] [id number] [address] [place] [address] Apr, [facility] [address] [id number] [address] [place] [address] Apr, [facility] [address] [id number] [address] [place] [address] Apr, [facility] [address] [id number] [address] [place] [address] Mar, [facility] [address] [id number] [address] [place] [address] Mar, [facility] [address] [id number] [address] [place] [address] Mar, [facility] [address] [id number] [address] [place] [address] Mar, [facility] [address] [id number] [address] [place] [address] 17 Feb, 2014 [facility] [address] [id number] [address] [place] [address], [place] [address] 17 Feb, 2014 [facility] [address] [id number] [address] [place] [address], [place] [address] Feb, [facility] [address] [id number] [address] [place] [address], [place] [address] Feb, [facility] [address] [id number] [address] [place] [address], [place] [address] Jan, [facility] [address] [id number] [address] [place] [address], [place] [address] Jan, [facility] [address] [id number] [address] [place] [address], [place] [address] Jan, [facility] [address] [id number] [address] [place] [address], [place] [address] Jan, [facility] [address] [id number] [address] [place] [address], [place] [address] Jan, [facility] [address] [id number] [address] [place] [address], [place] [address] Jan, [facility] [address] [id number] [address] [place] [address], [place] [address] Dec, [facility] [address] [id number] [address] [place] [address], [place] [address] Dec, [facility] [address] [id number] [address] [place] [address], [place] [address] Oct, [facility] [address] [id number] [address] [place] [address], [place] [address] Oct, [facility] [address] [id number] [address] [place] [address], [place] [address] Sep, [facility] [address] [id number] [address] [place] [address], [place] [address] Sep, [facility] [address] [id number] [address] [place] [address], [place] [address] Sep, [facility] [address] [id number] [address] [place] [address], [place] [address] Sep, [facility] [address] [id number] [address] [place] [address], [place] [address] Aug, [facility] [address] [id number] [address] [place] [address], [place] [address] Aug, [facility] [address] [id number] [address] [place] [address], [place] [address] July, [facility] [address] [id number] [address] [place] [address], [place] [address] July, [facility] [address] [id number] [address] [place] [address], [place] [address] Jun, [facility] [address] [id number] [address] [place] [address], [place] [address] Jun, [facility] [address] [id number] [address] [place] [address], [place] [address] May, [facility] [address] [id number] [address] [place] [address], [place] [address] May, [facility] [address] [id number] [address] [place] [address], [place] [address] Apr, [facility] [address] [id number] [address] [place] [address], [place] [address] Apr, [facility] [address] [id number] [address] [place] [address], [place] [address] Mar, [facility] [address] [id number] [address] [place] [address], [place] [address] Mar, [facility] [address] [id number] [address] [place] [address], [place] [address] Jan, [facility] [address] [id number] [address] [place] [address], [place] [address] Jan, [facility] [address] [id number] [address] [place] [address], [place] [address] Jan, [facility] [address] [id number] [address] [place] [address] Jan, [facility] [address] [id number] [address] [place] [address] Jan, [facility] [address] [id number] [address] [place] [address] Dec, [facility] [address] [id number] [address] [place] [address], [place] [address] Dec, [facility] [address] [id number] [address] [place] [address] Dec, [facility] [address] [id number] [address] [place] [address] Nov, [facility] [address] [id number] [address] [place] [address] Nov, [facility] [address] [id number] [address] [place] [address] Sep, [facility] [address] [id number] [address] [place] [address] Sep, [facility] [address] [id number] [address] [place] [address] Aug, [facility] [address] [id number] [address] [place] [address] Aug, [facility] [address] [id number] [place] [id number] July, [facility] [address] [id number] [place] [id number] Jun, [facility] [address] [id number] [place] [id number] Apr, [facility] [address] [id number] [place] [id number] Mar, [facility] [address] [id number] [address] [place] [address] Mar, [facility] [address] [id number] [place] [id number] Mar, [facility] [address] [id number] [address] [place] [address] Mar, [facility] [address] [id number] [place] [id number] Feb, [facility] [address] [id number] [address] [place] [address] Feb, [facility] [address] [id number] [place] [id number] Feb, [facility] [address] [facility] [id number] [address] [place] [address] Feb, [facility] [address] [id number] [place] [id number] Oct, [facility] [address] [id number] [place] [id number] Oct, [facility] [address] [id number] [place] [id number] July, [facility] [address] [id number] [place] [id number] July, [facility] [address] [id number] [place] [id number] Jun, [facility] [address] [id number] [place] [id number] Jun, [facility] [address] [id number] [place] [id number] Jun, [facility] [address] [id number] [place], [place] [id number] Mar, [facility] [address] [id number] [place] [id number] Mar, [facility] [address] [facility] [id number] [address] [place] [address] Feb, [facility] [address] [id number] [address] [place] [address] Feb, [facility] [address] [id number] [address] [place] [address] Jan, [facility] [address] [id number] [address] [place] [address] Jan, [facility] [address] [id number] [address] [place] [address] Jan, [facility] [address] [id number] [address] [place] [address] Jan, [facility] [address] [id number] [address] [place] [address] Jan, [facility] [address] [facility] [id number] [address] [place] [address] Aug, [facility] [address] [facility] [id number] [address] [place] [address] Apr, IMMUNIZATIONS No Known Immunizations SOCIAL HISTORY [...]
--- OUTSIDE RECORDS SUMMARY | 2019-11-08 12:55 | XMS REPORT ---
Author Author Zana Mojica Doctor Organization [facility] Address Unknown Phone Unavailable Care Team Providers Care New Order Clerk Name Role Phone Migration, Doctor Unavailable Unavailable PROBLEMS Type Condition ICD9-CM Code BTA36-SK Code Onset Dates Condition S tatus SNOMED Code Problem Factor V Leiden D68.51 Active 3070 74945 Problem Anticoagulant long-term use Z79.01 Ac tive 319281262 Problem Post-phlebitic syndrome I87.009 Active 31427598 Problem 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 67369926 Problem Other chronic pain G89.29 Active 8 0825826 Problem Venous stasis ulcers, left I83.029 Act ozzy 957072656 Problem Essential hypertension I10 Active 88856890 Problem Venous anomaly Q27.9 Active 35046 4003 Problem Congenital single kidney Q60.0 Activ e 95313718 Problem Chronic prescription opiate use Z79.899 Active 686039712 Problem Pure hypercholesterolemia E78.00 Acti ve [id number] ALLERGIES No Information ENCOUNTERS Encounter Location Date Diagnosis [place] [address] [address] [facility] [place] [facility] [id number] [address] [place] [phone] 08 Aug, 2019 Other chronic pain G89.29 [place] [address] [facility] [place] [id number] [address] [place] [address] 04 Aug, 2019 [facility] [address] [facility] [place] [id number] [address] [place] [address] 02 Aug, 2019 Anticoagulant long-term use Z79.01 [facility] [address] [facility] [place] [id number] [address] [place] [address] Aug, Other chronic pain G89.29 [facility] [id number] [place] [id number] July, Anticoagulant long-term use Z79.01 [place] [address] [facility] [place] [id number] [address] [place] [address] July, [facility] [address] [facility] [place] [id number] [address] [place] [address] July, [facility] [address] [facility] [place] [id number] [address] [place] [address] July, Other chronic pain G89.29 [facility] [address] [facility] [place] [id number] [address] [place] [address] July, Other chronic pain G89.29 [facility] [address] [facility] [place] [id number] [address] [place] [address] July, Other chronic pain G89.29 [place] [address] [address] [facility] [place] [id number] [address] [place] [address] July, Essential hypertension I10 ; Venous stasis ulcers, left I83.029 ; Other chronic pain G89.29 ; Factor V Leiden D68.51 and 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.09X0 [facility] [address] [facility] [place] [id number] [address] [place] [address] Jun, Other chronic pain G89.29 [place] [address] [facility] [place] [id number] [address] [place] [address] Jun, Anticoagulant long-term use Z79.01 [facility] [address] [id number] [id number] May, Anticoagulant long-term use Z79.01 [facility] [address] [facility] [place] [id number] [address] [place] [address] May, Other chronic pain G89.29 [facility] [address] [facility] [place] [id number] [address] [place] [address] May, Anticoagulant long-term use Z79.01 [facility] [id number] [place] [address] [id number] Apr, Anticoagulant long-term use Z79.01 [place] [address] [facility] [place] [id number] [address] [place] [address] Apr, Other chronic pain G89.29 [facility] [address] [facility] [place] [id number] [address] [place] [phone] 19 Apr, 2019 Anticoagulant long-term use Z79.01 [facility] [address] [id number], [place] [id number] Apr, Anticoagulant long-term use Z79.01 [facility] [id number] [place] [address] [id number] Apr, Factor V Leiden D68.51 [place] [address] [address] [place] [id number] [address] [place] [address] Mar, Anticoagulant long-term use Z79.01 [place] [address] [address] [place] [id number] [address] [place] [address] Mar, Factor V Leiden D68.51 [place] [id number] [place] [address] Mar, Occult blood positive stool R19.5 [place] [address] [place] [id number] [address] [place] [address] Mar, Other chronic pain G89.29 [place] [address] [facility] [place] [id number] [address] [place] [address] Mar, Factor V Leiden D68.51 and A nticoagulant long-term use Z79.01 [facility] [id number] [place] [address] [id number] Mar, Anticoagulant long-term use Z79.01 [facility] [id number] [place] [address] [id number] Mar, Anticoagulant long-term use Z79.01 [facility] [address] [facility] [place] [id number] [address] [place] [address] Mar, Anticoagulant long-term use Z79.01 [facility] [address] [facility] [place] [id number] [address] [place] [address] Mar, Pure hypercholesterolemia E7 8.[address] [facility] [address] [id number], [place] [id number] Mar, Anticoagulant long-term use Z79.01 [facility] [address] [facility] [place] [id number] [address] [place] [address] Mar, Other chronic pain G89.29 [facility] [address] [facility] [place] [id number] [address] [place] [address] Feb, Anticoagulant long-term use Z79.01 and Essential hypertension I10 [place] [address] [facility] [place] [id number] [address] [place] [address] Feb, Anticoagulant long-term use Z79.01 ; Essential hypertension I10 ; Chronic prescription opiate use Z79.899 ; Other chronic pain G89.29 ; Venous stasis ulcers, left I83.029 ; 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.09X0 and Pure hypercholesterolemia E78.[address] [facility] [address] [id number], [place] [id number] Feb, Anticoagulant long-term use Z79.01 [facility] [address] [facility] [place] [id number] [address] [place] [address] Feb, Anticoagulant long-term use Z79.01 [facility] [address] [facility] [place] [id number] [address] [place] [address] Feb, Other chronic pain G89.[address] [facility] [address] [id number], [place] [id number] Feb, Anticoagulant long-term use Z79.01 [facility] [address] [facility] [place] [id number] [address] [place] [address] Jan, Anticoagulant long-term use Z79.[address] [facility] [address] [id number], [place] [id number] Jan, Anticoagulant long-term use Z79.[address] [facility] [address] [id number], [place] [id number] Jan, Anticoagulant long-term use Z79.01 [facility] [address] [facility] [place] [id number] [address] [place] [address] Jan, Anticoagulant long-term use Z79.[address] [facility] [address] [id number], [place] [id number] Jan, Anticoagulant long-term use Z79.01 [facility] [address] [facility] [place] [id number] [address] [place] [address] Jan, Anticoagulant long-term use Z79.01 [facility] [address] [id number], [place] [id number] Jan, Anticoagulant long-term use Z79.01 [facility] [address] [facility] [place] [id number] [address] [place] [address] Jan, [facility] [address] [id number], [place] [id number] Jan, Anticoagulant long-term use Z79.01 [facility] [address] [facility] [place] [id number] [address] [place] [address] Jan, [facility] [address] [facility] [place] [id number] [address] [place] [address] Jan, Other chronic pain G89.29 [place] [address] [address] [facility] [place] [id number] [address] [place] [address] Jan, Anticoagulant long-term use Z79.[address] [facility] [address] [id number], [place] [id number] Dec, Anticoagulant long-term use Z79.01 [facility] [address] [facility] [place] [id number] [address] [place] [address] Dec, Anticoagulant long-term use Z79.[address] [facility] [address] [id number], [place] [id number] Dec, Anticoagulant long-term use Z79.[address] [facility] [address] [id number], [place] [id number] Dec, Anticoagulant long-term use Z79.01 [facility] [address] [facility] [place] [id number] [address] [place] [address] Dec, Anticoagulant long-term use Z79.01 [facility] [address] [facility] [place] [id number] [address] [place] [address] Dec, Anticoagulant long-term use Z79.01 [facility] [address] [facility] [place] [id number] [address] [place] [address] Dec, Anticoagulant long-term use Z79.01 [facility] [address] [facility] [place] [id number] [address] [place] [address] Dec, Other chronic pain G89.29 [facility] [address] [facility] [place] [id number] [address] [place] [address] Dec, Anticoagulant long-term use Z79.01 [facility] [address] [facility] [place] [id number] [address] [place] [address] Dec, [facility] [address] [facility] [place] [id number] [address] [place] [address] Dec, Other chronic pain G89.29 [facility] [address] [id number], [place] [id number] Dec, Anticoagulant long-term use Z79.01 [facility] [address] [facility] [place] [id number] [address] [place] [address] Nov, Anticoagulant long-term use Z79.01 [facility] [address] [id number], [place] [id number] Nov, Anticoagulant long-term use Z79.01 [facility] [address] [facility] [place] [id number] [address] [place] [address] Nov, Anticoagulant long-term use Z79.01 [facility] [address] [facility] [place] [id number] [address] [place] [address] Nov, Other chronic pain G89.29 [facility] [address] [facility] [place] [id number] [address] [place] [address] Nov, Other chronic pain G89.29 [facility] [address] [facility] [place] [id number] [address] [place] [address] Nov, Anticoagulant long-term use Z79.01 [facility] [address] [id number], [place] [id number] Nov, Factor V Leiden D68.51 [facility] [address] [id number], [place] [id number] Nov, Factor V Leiden D68.51 [place] [address] [facility] [place] [id number] [address] [place] [address] Nov, Anticoagulant long-term use Z79.01 [facility] [id number] [place] [address] [id number] Nov, Anticoagulant long-term use Z79.01 [place] [address] [facility] [place] [id number] [address] [place] [address] Nov, Essential hypertension I10 ; Factor V Leiden D68.51 and Anticoagulant long-term use Z79.01 [facility] [id number] [place] [address] [id number] Oct, Anticoagulant long-term use Z79.01 [place] [address] [facility] [place] [id number] [address] [place] [address] Oct, [facility] [address] [facility] [place] [id number] [address] [place] [address] Oct, Anticoagulant long-term use Z79.01 [place] [address] [facility] [place] [id number] [address] [place] [address] Oct, Other chronic pain G89.29 [facility] [address] [facility] [place] [id number] [address] [place] [address] Oct, Anticoagulant long-term use Z79.01 [place] [address] [facility] [place] [id number] [address] [place] [address] Oct, [facility] [address] [facility] [place] [id number] [address] [place] [address] Sep, Anticoagulant long-term use Z79.01 [facility] [address] [id number], [place] [id number] Sep, Anticoagulant long-term use Z79.01 [facility] [address] [facility] [place] [id number] [address] [place] [address] Sep, Other chronic pain G89.29 [place] [address] [facility] [place] [id number] [address] [place] [address] Sep, Anticoagulant long-term use Z79.01 [facility] [address] [id number], [place] [id number] Sep, Anticoagulant long-term use Z79.01 [place] [address] [facility] [place] [id number] [address] [place] [address] Aug, Anticoagulant long-term use Z79.01 [place] [address] [place] [id number] [address] [place] [address] Aug, Anticoagulant long-term use Z79.01 [place] [address] [facility] [place] [id number] [address] [place] [address] Aug, Other chronic pain G89.29 [place] [address] [facility] [place] [id number] [address] [place] [address] Aug, Other chronic pain G89.29 ; Anticoagulant long-term use Z79.01 ; 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.09X0 ; Oral pain K13.79 ; Dental infection K04.7 ; Essential hypertension I10 and Pure hypercholesterolemia E78.00 [place] [address] [facility] [place] [id number] [address] [place] [address] July, Other chronic pain G89.29 [place] [address] [facility] [place] [id number] [address] [place] [address] Jun, Other chronic pain G89.29 [facility] [address] [id number] [address] [place] [address] Jun, [facility] [address] [id number] [address] [place] [address] Jun, [facility] [address] [id number], [place] [id number] Jun, Anticoagulant long-term use Z79.01 and I diopathic chronic gout of multiple 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 tophus M1A.09X0 [facility] [address] [id number] [address] [place] [address] May, Other chronic pain G89.29 [facility] [address] [facility] [place] [id number] [address] [place] [address] May, [facility] [address] [facility] [place] [id number] [address] [place] [address] May, Anticoagulant long-term use Z79.01 [facility] [address] [facility] [place] [id number] [address] [place] [address] May, [facility] [id number] [place] [address] [id number] May, Anticoagulant long-term use Z79.01 [facility] [address] [facility] [place] [id number] [address] [place] [address] May, Anticoagulant long-term use Z79.01 [facility] [address] [id number] [address] [place] [address] May, Anticoagulant long-term use Z79.01 [facility] [address] [id number], [place] [id number] May, Factor V Leiden D68.51 [facility] [address] [facility] [place] [id number] [address] [place] [address] Apr, Other chronic pain G89.29 [facility] [address] [facility] [place] [id number] [address] [place] [address] Apr, Idiopathic chronic gout of m ultiple 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 tophus M1A.09X0 [facility] [address] [id number], [place] [id number] Apr, Anticoagulant long-term use Z79.01 [facility] [address] [id number], [place] [id number] Apr, Anticoagulant long-term use Z79.01 ; Med ication side effect T88.7XXA and 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.09X0 [place] [address] [address] Apr, [place] [address] [address] Apr, Anticoagulant long-term use Z79.01 [place] [address] [place] [id number] [address] [place] [address] Apr, Medication side effect T88.7 XXA and Factor V Leiden D68.51 [place] [address] [place] [id number] [address] [place] [address] Apr, Idiopathic chronic gout of m ultiple 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 tophus M1A.09X0 and Anticoagulant long-term use Z79.01 [facility] [address] [id number], [place] [id number] Mar, Factor V Leiden D68.51 and Anticoagulant long-term use Z79.01 [place] [address] [place] [id number] [address] [place] [address] Mar, Factor V Leiden D68.51 ; Ant icoagulant long-term use Z79.01 ; 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.09X0 ; Pure hypercholesterolemia E78.00 ; Other chronic pain G89.29 and BMI 40.0-44.9, adult Z68.41 [place] [address] [place] [id number] [address] [place] [address] Mar, [facility] [address] [facility] [place] [id number] [address] [place] [address] Mar, Other chronic pain G89.29 [facility] [address] [facility] [place] [id number] [address] [place] [address] Feb, Idiopathic chronic gout of m ultiple 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 tophus M1A.09X0 [address] [id number], [place] [id number] Feb, Anticoagulant long-term use Z79.01 and I diopathic chronic gout of multiple 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 tophus M1A.09X0 [place] [address] [facility] [place] [id number] [address] [place] [address] Feb, Anticoagulant long-term use Z79.01 and 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.09X0 [place] [address] [facility] [place] [id number] [address] [place] [address] Feb, [place] [address] [facility] [place] [id number] [address] [place] [address] Feb, Other chronic pain G89.29 [place] [address] [facility] [place] [id number] [address] [place] [address] Jan, Other chronic pain G89.29 [place] [address] [facility] [place] [id number] [address] [place] [address] Dec, Other chronic pain G89.29 [place] [address] [facility] [place] [id number] [address] [place] [address] Dec, Anticoagulant long-term use Z79.01 [facility] [address] [facility] [place] [id number] [address] [place] [address] Dec, Chronic prescription opiate use Z79.899 ; Factor V Leiden D68.51 ; Other chronic pain G89.29 and Anticoagulant long-term use Z79.01 [facility] [address] [facility] [place] [id number] [address] [place] [phone] Nov, Other chronic pain G89.29 [facility] [address] [facility] [place] [id number] [address] [place] [phone] Oct, Other chronic pain G89.29 [facility] [address] [id number] [address] [place] [phone] Sep, Other chronic pain G89.29 [facility] [address] [id number] [address] [place] [phone] Aug, Other chronic pain G89.29 [facility] [address] [id number] [address] [place] [id number] Aug, Venous stasis ulcers, left I 83.029 [facility] [address] [facility] [place] [id number] [address] [place] [phone] July, Other chronic pain G89.29 [facility] [address] [facility] [place] [id number] [address] [place] [phone] July, Venous stasis ulcers, left I 83.029 and Snoring R06.83 [facility] [address] [facility] [place] [id number] [address] [place] [phone] Jun, Idiopathic chronic gout of m ultiple 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 tophus M1A.09X0 [facility] [address] [facility] [place] [id number] [address] [place] [phone] Jun, Acute renal insufficiency N2 8.9 [facility] [address] [facility] [place] [id number] [address] [place] [phone] Jun, Other chronic pain G89.29 [facility] [address] [facility] [place] [id number] [address] [place] [phone] Jun, Acute renal insufficiency N2 8.[address] [facility] [address] [id number] [id number] Jun, Idiopathic chronic gout of multiple site s without tophus M1A.09X0 ; Essential hypertension I10 and Anticoagulant long-term use Z79.01 [facility] [address] [facility] [place] [id number] [address] [place] [phone] Jun, Anticoagulant long-term use Z79.01 and Essential hypertension I10 [place] [address] [facility] [place] [id number] [address] [place] [phone] May, Idiopathic chronic gout of m ultiple 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 tophus M1A.09X0 [place] [address] [facility] [place]] [id number] [address] [place] [phone] May, [place] [address] [facility] [place] [id number] [address] [place] [phone] May, Essential hypertension I10 ; Pure hypercholesterolemia E78.00 ; Anticoagulant long-term use Z79.01 and 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.09X0 [place] [address] [facility] [place]] [id number] [address] [place] [address] May, Other chronic pain G89.29 [place] [address] [address] [facility] [place] [facility] [id number] [address] [place] [address] May, Anticoagulant long-term use Z79.01 [place] [address] [address] [facility] [place] [id number] [address] [place] [address] May, Chronic prescription opiate use Z79.899 ; Other chronic pain G89.29 ; Essential hypertension I10 ; Factor V Leiden D68.51 ; Anticoagulant long-term use Z79.01 ; Pure hypercholesterolemia E78.00 ; Venous stasis ulcers, left I83.029 ; 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.09X0 and Cellulitis of left lower extremity L03.116 [place] [address] [address] [facility] [place] [id number] [address] [place] [address] Apr, Other chronic pain G89.29 [place] [address] [address] [facility] [place] [id number] [address] [place] [address] Mar, Other chronic pain G89.29 [place] [address] [address] [place] [id number] [address] [place] [address] Mar, Factor V Leiden D68.51 ; Pur e hypercholesterolemia E78.00 and Other chronic pain G89.29 [place] [address] [address] [facility] [place] [id number] [address] [place] [address] Feb, Other chronic pain G89.29 [place] [address] [address] [place] [id number] [address] [place] [address] Jan, Idiopathic chronic gout of m ultiple 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 tophus M1A.09X0 [place] [address] [address] [facility] [place] [id number] [address] [place] [address] Jan, Other chronic pain G89.29 [place] [address] [address] [place] [id number] [place] [address] Dec, Anticoagulant long-term use Z79.01 ; Factor V Leiden D68.51 and Other chronic pain G89.29 [place] [id number] [place] [address] Dec, Other chronic pain G89.29 [place] [address] [address] [place] [id number] [address] [place] [address] Nov, Other chronic pain G89.29 [place] [address] [address] [place] [id number] [address] [place] [address] Oct, Other chronic pain G89.29 [place] [address] [place] [address] Sep, Anticoagulant long-term use Z79.01 [place] [address] [address] [facility] [place] [id number] [address] [place] [address] Sep, Chronic prescription opiate use Z79.899 ; Anticoagulant long-term use Z79.01 ; Essential hypertension I10 ; Pure hypercholesterolemia E78.00 ; Factor V Leiden D68.51 ; Venous stasis ulcers, left I83.029 ; Other chronic pain G89.29 and 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.09X0 [place] [address] [address] [facility] [place] [id number] [address] [place] [address] Aug, Anticoagulant long-term use Z79.01 [facility] [address] [facility] [place] [id number] [address] [place] [address] Aug, Other chronic pain G89.29 [facility] [address] [facility] [place] [id number] [address] [place] [address] Aug, Essential hypertension I10 a nd Factor V Leiden D68.[id number] [place] [id number] 15 Aug, 2016 Acute right ankle pain M25.571 and Tendo nitis of ankle M77.50 [place] [address] [address] [facility] [place] [id number] [address] [place] [address] Aug, [place] [address] [address] [facility] [place] [id number] [address] [place] [address] July, Other chronic pain G89.29 [place] [address] [address] [facility] [place] [id number] [address] [place] [address] Jun, Other chronic pain G89.29 [place] [address] [address] [facility] [place] [id number] [address] [place] [address] Jun, Other chronic pain G89.29 [place] [address] [address] [facility] [place] [id number] [address] [place] [address] Jun, Anticoagulant long-term use Z79.01 [place] [address] N [facility] [place] [id number] [address] [place] [address] May, Other chronic pain G89.29 [place] [address] [address] [facility] [place] [id number] [address] [place] [address] May, Anticoagulant long-term use Z79.01 [facility] [address] [facility] [place] [id number] [address] [place] [address] May, Other chronic pain G89.29 [place] [address] [address] [facility] [place] [id number] [address] [place] [address] 06 Apr, 2016 Anticoagulant long-term use Z79.01 [facility] [address] [facility] [place] [id number] [address] [place] [address] Apr, Other chronic pain G89.29 [facility] [address] [facility] [place] [id number] [address] [place] [address] Apr, Anticoagulant long-term use Z79.01 and Pure hypercholesterolemia E78.00 [place] [address] [address] [facility] [place] [id number] [address] [place] [address] Mar, [place] [address] [address] [facility] [place] [id number] [address] [place] [address] Mar, Anticoagulant long-term use Z79.01 [place] [address] [address] [place] [id number] [address] [place] [address] Mar, Other chronic pain G89.29 [place] [address] [address] Feb, Essential hypertension I10 ; Chronic prescription opiate use Z79.899 ; Other chronic pain G89.29 ; Screening Z13.9 ; Factor V Leiden D68.51 ; Anticoagulant long-term use Z79.01 ; Venous stasis dermatitis of left lower extremity I83.12 and Pure hypercholesterolemia E78.00 [place] [id number] [place] [address] 14 Jan, 2016 Anticoagulant long-term use Z79.01 [place] [address] [address] [facility] [place] [id number] [address] [place] [address] Jan, Anticoagulant long-term use Z79.01 [place] [address] [address] [facility] [place] [id number] [address] [place] [address] Jan, [place] [address] [address] [place] [id number] [address] [place] [address] Jan, [place] [address] [place] [address] Dec, [place] [address] N [facility] [place] [id number] [address] [place] [address] Nov, [facility] [address] [facility] [place] [id number] [address] [place] [address] Oct, Anticoagulant long-term use Z79.01 [facility] [address] [facility] [place] [id number] [address] [place] [address] Oct, [facility] [address] [facility] [place] [id number] [address] [place] [address] Oct, Anticoagulant long-term use Z79.01 [facility] [address] [facility] [place] [id number] [address] [place] [address] Sep, [facility] [address] [facility] [place]] [id number] [address] [place] [address] Aug, [facility] [address] [facility] [place] [id number] [address] [place] [address] Aug, Chronic prescription opiate use Z79.899 ; Other chronic pain G89.29 ; Essential hypertension I10 and Pure hypercholesterolemia E78.0 [facility] [address] [facility] [place] [id number] [address] [place] [address] July, Hyperlipidemia, group D E78. 3 and Anticoagulant long-term use Z79.01 [facility] [address] [facility] [place] [id number] [address] [place] [address] July, Hyperlipidemia, group D E78. 3 ; Essential hypertension I10 and Factor V Leiden D68.51 [facility] [address] [facility] [place] [id number] [address] [place] [address] July, Essential hypertension I10 [facility] [address] [facility] [place] [id number] [address] [place] [address] Jun, Hyperlipidemia, group D E78. 3 [facility] [address] [facility] [place] [id number] [address] [place] [address] Jun, Factor V Leiden D68.51 [facility] [address] [facility] [place] [id number] [address] [place] [address] May, Factor V Leiden D68.51 ; Hyp erlipidemia, group D E78.3 ; Essential hypertension I10 ; Other chronic pain G89.29 and Anticoagulant long-term use Z79.01 [facility] [address] [facility] [place] [id number] [address] [place] [address] 04 May, 2015 Anticoagulant long-term use Z79.01 [facility] [address] [facility] [place] [id number] [address] [place] [address] 04 May, 2015 Anticoagulant long-term use Z79.01 [facility] [address] [facility] [place] [id number] [address] [place] [address] May, [facility] [address] [facility] [place] [id number] [place] [address] Apr, [facility] [address] [address] Mar, [facility] [address] [facility] [place] [id number] [address] [place] [address] Mar, [facility] [address] [address] Feb, Anticoagulant long-term use Z79.01 [facility] [address] [facility] [place] [id number] [address] [place] [address] 16 Feb, 2015 Chronic prescription opiate use Z79.899 ; Other chronic pain G89.29 ; Hyperlipidemia, group D E78.3 ; Factor V Leiden D68.51 and Anticoagulant long- term use Z79.01 [facility] [address] [facility] [place] [id number] [address] [place] [address] Feb, [facility] [address] [address] 05 Jan, 2015 [facility] [address] [place] [id number] [address] [place] [address] 15 Dec, 2014 Hyperlipidemia, unspecified E78.5 [facility] [address] [facility] [place] [id number] [address] [place] [address] Dec, Cellulitis of left lower ext remity L03.116 ; Venous stasis ulcers, left I83.029 and Factor V Leiden D68.51 [facility] [address] [facility] [place] [id number] [address] [place] [address] Dec, Hyperlipidemia 272.4 and Fac tor 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 [facility] [address] [facility] [place] [id number] [address] [place] [address] Dec, [facility] [address] [facility] [place] [id number] [address] [place] [address] Nov, 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 [facility] [address] [facility] [place] [id number] [address] [place] [address] Nov, [facility] [address] [place] [id number] [place] [address] Nov, [facility] [address] [place] [id number] [address] [place] [address] Nov, [facility] [address] [place] [id number] [place] [address] Oct, [facility] [address] [place] [id number] [address] [place] [address] Oct, Hyperlipidemia 272.4 ; Chron ic pain disorder 338.4 ; Venous stasis ulcer of left lower extremity 454.0 and 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 [facility] [address] [facility] [place] [id number] [address] [place] [address] Sep, [facility] [address] [place] [id number] [place] [address] Sep, [facility] [address] [place] [id number] [place] [address] Sep, Hyperlipidemia 272.4 and Fac tor 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 [facility] [address] [place] [id number] [place] [address] Aug, [facility] [address] [facility] [place] [id number] [address] [place] [address] Aug, 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 [facility] [address] [id number] [address] [place] [address] July, [facility] [address] [id number] [address] [place] [address] July, Essential hypertension, fito gn 401.1 ; 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 ; Chronic pain disorder 338.4 ; Hyperlipidemia 272.4 and Venous stasis ulcer of left lower extremity 454.0 [facility] [address] [id number] [address] [place] [address] Jun, [facility] [address] [facility] [place] [id number] [address] [place] [address] Jun, [facility] [address] [id number] [address] [place] [address] May, [facility] [address] [id number] [address] [place] [address] May, [facility] [address] [id number] [address] [place] [address] Apr, [facility] [address] [facility] [place] [id number] [address] [place] [address] Apr, [facility] [address] [id number] [address] [place] [address] Apr, [facility] [address] [id number] [address] [place] [address] Apr, [facility] [address] [id number] [address] [place] [address] Apr, [facility] [address] [id number] [address] [place] [address] Apr, [facility] [address] [facility] [place] [id number] [address] [place] [phone] 15 Mar, 2014 [facility] [address] [id number] [address] [place] [address], [place] [address] 15 Mar, 2014 [facility] [address] [id number] [address] [place] [address], [place] [address] Mar, [facility] [address] [id number] [address] [place] [address], [place] [address] Mar, [facility] [address] [id number] [address] [place] [address], [place] [address] Feb, [facility] [address] [id number] [address] [place] [address], [place] [address] 17 Feb, 2014 [facility] [address] [id number] [address] [place] [address], [place] [address] 16 Feb, 2014 [facility] [address] [id number] [address] [place] [address], [place] [address] Feb, [facility] [address] [id number] [address] [place] [address], [place] [address] 24 Jan, 2014 [facility] [address] [id number] [address] [place] [address], [place] [address] Jan, [facility] [address] [id number] [address] [place] [address], [place] [address] Jan, [facility] [address] [id number] [address] [place] [address], [place] [address] Jan, [facility] [address] [id number] [address] [place] [address], [place] [address] Jan, [facility] [address] [id number] [address] [place] [address], [place] [address] Jan, [facility] [address] [id number] [address] [place] [address], [place] [address] Dec, [facility] [address] [id number] [address] [place] [address], [place] [address] Dec, [facility] [address] [id number] [address] [place] [address], [place] [address] Oct, [facility] [address] [id number] [address] [place] [address], [place] [address] Oct, [facility] [address] [id number] [address] [place] [address], [place] [address] Sep, [facility] [address] [id number] [address] [place] [address], [place] [address] Sep, [facility] [address] [id number] [address] [place] [address], [place] [address] Sep, [facility] [address] [id number] [address] [place] [address], [place] [address] Sep, [facility] [address] [id number] [address] [place] [address], [place] [address] Aug, [facility] [address] [id number] [address] [place] [address], [place] [address] Aug, [facility] [address] [id number] [address] [place] [address], [place] [address] July, [facility] [address] [id number] [address] [place] [address], [place] [address] July, [facility] [address] [id number] [address] [place] [address], [place] [address] Jun, [facility] [address] [id number] [address] [place] [address], [place] [address] Jun, [facility] [address] [id number] [address] [place] [address], [place] [address] May, [facility] [address] [id number] [address] [place] [address], [place] [address] May, [facility] [address] [id number] [address] [place] [address], [place] [address] Apr, [facility] [address] [id number] [address] [place] [address], [place] [address] Apr, [facility] [address] [id number] [address] [place] [address], [place] [address] Mar, [facility] [address] [id number] [address] [place] [address], [place] [address] Mar, [facility] [address] [id number] [address] [place] [address], [place] [address] Jan, [facility] [address] [id number] [address] [place] [address], [place] [address] Jan, [facility] [address] [id number] [address] [place] [address], [place] [address] Jan, [facility] [address] [id number] [address] [place] [address], [place] [address] Jan, [facility] [address] [id number] [address] [place] [address], [place] [address] Jan, [facility] [address] [id number] [address] [place] [address], [place] [address] Dec, [facility] [address] [id number] [address] [place] [address], [place] [address] Dec, [facility] [address] [id number] [address] [place] [address], [place] [address] Dec, [facility] [address] [id number] [address] [place] [address], [place] [address] Nov, [facility] [address] [id number] [address] [place] [address], [place] [address] Nov, [facility] [address] [id number] [address] [place] [address], [place] [address] Sep, [facility] [address] [id number] [address] [place] [address], [place] [address] Sep, [facility] [address] [id number] [address] [place] [address], [place] [id number] Aug, [facility] [address] [id number] [address] [place] [phone] Aug, [facility] [address] [id number] [place] [id number] July, [facility] [address] [id number] [place] [id number] Jun, [facility] [address] [id number] [place] [id number] Apr, [facility] [address] [id number] [place] [id number] Mar, [facility] [address] [facility] [place] [id number] [address] [place] [id number] Mar, [facility] [address] [id number] [place] [id number] Mar, [facility] [address] [facility] [place] [id number] [address] [place] [phone] Mar, [facility] [address] [id number] [place] [id number] Feb, [facility] [address] [facility] [place] [id number] [address] [place] [id number] Feb, [facility] [address] [id number] [place] [id number] Feb, [facility] [address] [facility] [place] [id number] [address] [place] [phone] Feb, [facility] [address] [id number] [place] [id number] Oct, [facility] [address] [id number] [place] [id number] Oct, [facility] [address] [id number] [place] [id number] July, [facility] [address] [id number] [place] [id number] July, [facility] [address] [id number] [place] [id number] Jun, [facility] [address] [id number] [place] [id number] Jun, [facility] [address] [id number] [place] [id number] Jun, [facility] [place] [address] [id number] [place] [id number] Mar, [facility] [address] [id number] [place] [id number] Mar, [facility] [address] [id number] [address] [place] [id number] Feb, [facility] [address] [id number] [address] [place] [id number] Feb, [facility] [address] [id number] [address] [place] [phone] Jan, [facility] [address] [facility] [place] [id number] [address] [place] [phone] Jan, [facility] [address] [facility] [place] [id number] [address] [place] [phone] Jan, [facility] [address] [facility] [place] [id number] [address] [place] [phone] Jan, [facility] [address] [facility] [place] [id number] [address] [place] [phone] Jan, [facility] [address] [facility] [place] [id number] [address] [place] [phone] Aug, [facility] [address] [facility] [place] [id number] [address] [place] [phone] Apr, IMMUNIZATIONS No Known Immunizations SOCIAL HISTORY Never Assessed REASON FOR VISIT PLAN OF CARE VITAL SIGNS Height 75.5 in 2012-08-31 Weight 263 lbs 2012-08-31 Temperature 99.1 degrees Fahrenheit 2012-08-31 Heart Rate 90 bpm 2012-08-31 Respiratory Rate 16 2012-08-31 Blood pressure systolic 152 mmHg 2012-08-31 Blood pressure diastolic 90 mmHg 2012-08-31 MEDICATIONS Unknown Medications RESULTS No Results PROCEDURES Procedure Date Ordered Result Body Site PROTHROMBIN TIME August 31, 2012 INSTRUCTIONS MEDICATIONS ADMINISTERED No Known Medications [...]
--- OUTSIDE RECORDS SUMMARY | 2019-11-08 12:56 | XMS REPORT ---
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 Name Role Phone BOAZ Waters Unavailable PROBLEMS Type Condition ICD9-CM Code [id number] Code Onset Dates Condition S tatus SNOMED Code Problem Factor V Leiden D68.51 Active 3070 08301 Problem Anticoagulant long-term use Z79.01 Ac tive 363499586 Problem Post-phlebitic syndrome I87.009 Active 57543918 Problem 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 77613426 Problem Other chronic pain G89.29 Active 8 1650234 Problem Venous stasis ulcers, left I83.029 Act ozzy 230353742 Problem Essential hypertension I10 Active 73163178 Problem Venous anomaly Q27.9 Active 80454 4003 Problem Congenital single kidney Q60.0 Activ e 99567990 Problem Chronic prescription opiate use Z79.899 Active 871459460 Problem Pure hypercholesterolemia E78.00 Acti ve [id number] ALLERGIES No Information ENCOUNTERS Encounter Location Date Diagnosis [facility] [address] [facility] [id number] [address] [place] [address] July, [facility] [address] [facility] [id number] [address] [place] [address] July, Other chronic pain G89.29 [facility] [address] [facility] [id number] [address] [place] [address] July, Other chronic pain G89.29 [facility] [address] [facility] [id number] [address] [place] [address] July, Other chronic pain G89.29 [facility] [address] [facility] [id number] [address] [place] [address] July, Essential hypertension I10 ; Venous stasis ulcers, left I83.029 ; Other chronic pain G89.29 ; Factor V Leiden D68.51 and 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.09X0 [facility] [address] [facility] [id number] [address] [place] [address] Jun, Other chronic pain G89.29 [place] [address] [facility] [id number] [address] [place] [address] Jun, Anticoagulant long-term use Z79.01 [facility] [id number] [place] [address] [id number] May, Anticoagulant long-term use Z79.01 [place] [address] [facility] [id number] [address] [place] [address] May, Other chronic pain G89.29 [place] [address] [facility] [id number] [address] [place] [address] May, Anticoagulant long-term use Z79.01 [facility] [id number] [place] [address] [id number] Apr, Anticoagulant long-term use Z79.01 [place] [address] [facility] [id number] [address] [place] [address] Apr, Other chronic pain G89.29 [place] [address] [facility] [id number] [address] [place] [address] Apr, Anticoagulant long-term use Z79.01 [facility] [id number] [place] [address] [id number] Apr, Anticoagulant long-term use Z79.01 [facility] [address] [id number][place] [id number] 07 Apr, 2019 Factor V Leiden D68.51 [place] [address] [facility] [id number] [address] [place] [address] Mar, Anticoagulant long-term use Z79.01 [place] [address] [facility] [id number] [address] [place] [address] Mar, Factor V Leiden D68.51 [place] [address] [facility] [id number] [address] [place] [address] Mar, Occult blood positive stool R19.5 [place] [address] [facility] [id number] [address] [place] [address] Mar, Other chronic pain G89.29 [place] [address] [facility] [id number] [address] [place] [address] Mar, Factor V Leiden D68.51 and A nticoagulant long-term use Z79.01 [facility] [address] [id number][place] [id number] Mar, Anticoagulant long-term use Z79.01 [facility] [id number] [place] [address] [id number] Mar, Anticoagulant long-term use Z79.01 [place] [address] [facility] [id number] [address] [place] [address] Mar, Anticoagulant long-term use Z79.01 [place] [address] [facility] [id number] [address] [place] [address] Mar, Pure hypercholesterolemia E7 8.00 [facility] [id number] [place] [address] [id number] Mar, Anticoagulant long-term use Z79.01 [place] [address] [facility] [id number] [address] [place] [address] Mar, Other chronic pain G89.29 [place] [address] [facility] [id number] [address] [place] [address] Feb, Anticoagulant long-term use Z79.01 and Essential hypertension I10 [place] [address] [facility] [id number] [address] [place] [address] Feb, Anticoagulant long-term use Z79.01 ; Essential hypertension I10 ; Chronic prescription opiate use Z79.899 ; Other chronic pain G89.29 ; Venous stasis ulcers, left I83.029 ; 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.09X0 and Pure hypercholesterolemia E78.[address] [facility] [address] [id number][place] [id number] Feb, Anticoagulant long-term use Z79.01 [facility] [address] [facility] [id number] [address] [place] [address] Feb, Anticoagulant long-term use Z79.01 [facility] [address] [facility] [id number] [address] [place] [address] Feb, Other chronic pain G89.29 [facility] [address] [id number], [place] [id number] Feb, Anticoagulant long-term use Z79.01 [place] [address] [facility] [id number] [address] [place] [address] Jan, Anticoagulant long-term use Z79.01 [facility] [address] [id number], [place] [id number] Jan, Anticoagulant long-term use Z79.01 [facility] [address] [id number], [place] [id number] Jan, Anticoagulant long-term use Z79.01 [place] [address] [facility] [id number] [address] [place] [address] Jan, Anticoagulant long-term use Z79.01 [facility] [address] [id number], [place] [id number] Jan, Anticoagulant long-term use Z79.01 [facility] [address] [facility] [id number] [address] [place] [address] Jan, Anticoagulant long-term use Z79.01 [facility] [address] [id number], [place] [id number] Jan, Anticoagulant long-term use Z79.01 [facility] [address] [facility] [id number] [address] [place] [address] Jan, [facility] [address] [id number], [place] [id number] Jan, Anticoagulant long-term use Z79.01 [facility] [address] [facility] [id number] [address] [place] [address] Jan, [facility] [address] [facility] [id number] [address] [place] [address] Jan, Other chronic pain G89.29 [facility] [address] [facility] [id number] [address] [place] [address] Jan, Anticoagulant long-term use Z79.01 [facility] [address] [id number], [place] [id number] Dec, Anticoagulant long-term use Z79.01 [facility] [address] [facility] [id number] [address] [place] [address] Dec, Anticoagulant long-term use Z79.01 [facility] [address] [id number], [place] [id number] Dec, Anticoagulant long-term use Z79.01 [facility] [id number] [place] [address] [id number] Dec, Anticoagulant long-term use Z79.01 [facility] [address] [facility] [id number] [address] [place] [address] Dec, Anticoagulant long-term use Z79.01 [facility] [address] [facility] [id number] [address] [place] [address] Dec, Anticoagulant long-term use Z79.01 [facility] [address] [facility] [id number] [address] [place] [address] Dec, Anticoagulant long-term use Z79.01 [facility] [address] [facility] [id number] [address] [place] [address] Dec, Other chronic pain G89.29 [facility] [address] [facility] [id number] [address] [place] [address] Dec, Anticoagulant long-term use Z79.01 [facility] [address] [facility] [id number] [address] [place] [address] Dec, [facility] [address] [facility] [id number] [address] [place] [address] Dec, Other chronic pain G89.29 [facility] [id number] [place] [address] [id number] Dec, Anticoagulant long-term use Z79.01 [facility] [address] [facility] [id number] [address] [place] [address] Nov, Anticoagulant long-term use Z79.01 [facility] [id number] [place] [address] [id number] Nov, Anticoagulant long-term use Z79.01 [facility] [address] [facility] [id number] [address] [place] [address] Nov, Anticoagulant long-term use Z79.01 [facility] [address] [facility] [id number] [address] [place] [address] Nov, Other chronic pain G89.29 [place] [address] [facility] [id number] [address] [place] [address] Nov, Other chronic pain G89.29 [facility] [address] [facility] [id number] [address] [place] [address] Nov, Anticoagulant long-term use Z79.01 [facility] [address] [id number], [place] [id number] Nov, Factor V Leiden D68.51 [facility] [address] [id number], [place] [id number] Nov, Factor V Leiden D68.51 [facility] [address] [facility] [id number] [address] [place] [address] Nov, Anticoagulant long-term use Z79.01 [facility] [address] [id number], [place] [id number] Nov, Anticoagulant long-term use Z79.01 [facility] [address] [facility] [id number] [address] [place] [address] Nov, Essential hypertension I10 ; Factor V Leiden D68.51 and Anticoagulant long-term use Z79.01 [facility] [address] [id number], [place] [id number] Oct, Anticoagulant long-term use Z79.01 [facility] [address] [facility] [id number] [address] [place] [address] Oct, [facility] [address] [facility] [id number] [address] [place] [address] Oct, Anticoagulant long-term use Z79.01 [facility] [address] [facility] [id number] [address] [place] [address] Oct, Other chronic pain G89.29 [facility] [address] [facility] [id number] [address] [place] [phone] Oct, Anticoagulant long-term use Z79.01 [facility] [address] [facility] [id number] [address] [place] [address] Oct, [facility] [address] [facility] [id number] [address] [place] [address] Sep, Anticoagulant long-term use Z79.01 [facility] [address] [facility] [address] [id number], [place] [id number] Sep, Anticoagulant long-term use Z79.01 [facility] [address] [facility] [id number] [address] [place] [address] Sep, Other chronic pain G89.29 [facility] [address] [facility] [id number] [address] [place] [address] Sep, Anticoagulant long-term use Z79.01 [facility] [address] [id number], [place] [id number] Sep, Anticoagulant long-term use Z79.01 [facility] [address] [facility] [id number] [address] [place] [address] Aug, Anticoagulant long-term use Z79.01 [facility] [address] [facility] [id number] [address] [place] [address] Aug, Anticoagulant long-term use Z79.01 [facility] [address] [facility] [id number] [address] [place] [address] Aug, Other chronic pain G89.29 [facility] [address] [facility] [id number] [address] [place] [address] Aug, Other chronic pain G89.29 ; Anticoagulant long-term use Z79.01 ; 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.09X0 ; Oral pain K13.79 ; Dental infection K04.7 ; Essential hypertension I10 and Pure hypercholesterolemia E78.00 [facility] [address] [facility] [id number] [address] [place] [address] July, Other chronic pain G89.29 [facility] [address] [facility] [id number] [address] [place] [address] Jun, Other chronic pain G89.29 [facility] [address] [facility] [id number] [address] [place] [address] Jun, [facility] [address] [facility] [id number] [address] [place] [address] Jun, [facility] [address] [id number], [place] [id number] Jun, Anticoagulant long-term use Z79.01 and I diopathic chronic gout of multiple 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 tophus M1A.09X0 [facility] [address] [facility] [id number] [address] [place] [address] May, Other chronic pain G89.29 [facility] [address] [facility] [id number] [address] [place] [address] May, [place] [address] [facility] [id number] [address] [place] [address] May, Anticoagulant long-term use Z79.01 [place] [address] [facility] [id number] [address] [place] [address] May, [place] [id number] [place] [address] [id number] May, Anticoagulant long-term use Z79.01 [place] [address] [facility] [id number] [address] [place] [address] May, Anticoagulant long-term use Z79.01 [place] [address] [facility] [id number] [address] [place] [address] May, Anticoagulant long-term use Z79.01 [facility] [id number] [place] [address] [id number] May, Factor V Leiden D68.51 [place] [address] [facility] [id number] [address] [place] [address] Apr, Other chronic pain G89.29 [place] [address] [facility] [id number] [address] [place] [address] Apr, Idiopathic chronic gout of m ultiple 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 tophus M1A.09X0 [facility] [address] [id number], [place] [id number] Apr, Anticoagulant long-term use Z79.01 [facility] [address] [id number], [place] [id number] Apr, Anticoagulant long-term use Z79.01 ; Med ication side effect T88.7XXA and 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.09X0 [place] [address] [facility] [id number] [address] [place] [address] Apr, [place] [address] [facility] [id number] [address] [place] [address] 14 Apr, 2018 Anticoagulant long-term use Z79.01 [place] [address] [facility] [id number] [address] [place] [address] 11 Apr, 2018 Medication side effect T88.7 XXA and Factor V Leiden D68.51 [place] [address] [facility] [id number] [address] [place] [address] Apr, Idiopathic chronic gout of m ultiple 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 tophus M1A.09X0 and Anticoagulant long-term use Z79.01 [facility] [id number] [place] [address] [id number] Mar, Factor V Leiden D68.51 and Anticoagulant long-term use Z79.01 [place] [address] [facility] [id number] [address] [place] [address] Mar, Factor V Leiden D68.51 ; Ant icoagulant long-term use Z79.01 ; 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.09X0 ; Pure hypercholesterolemia E78.00 ; Other chronic pain G89.29 and BMI 40.0-44.9, adult Z68.41 [place] [address] [facility] [id number] [address] [place] [address] Mar, [place] [address] [facility] [id number] [address] [place] [address] Mar, Other chronic pain G89.29 [place] [address] [facility] [id number] [address] [place] [address] Feb, Idiopathic chronic gout of m ultiple 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 tophus M1A.09X0 [facility] [id number] [place] [address] [id number] Feb, Anticoagulant long-term use Z79.01 and I diopathic chronic gout of multiple 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 tophus M1A.09X0 [place] [address] [facility] [id number] [address] [place] [address] Feb, Anticoagulant long-term use Z79.01 and 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.09X0 [facility] [address] [facility] [id number] [address] [place] [address] Feb, [facility] [address] [facility] [id number] [address] [place] [address] Feb, Other chronic pain G89.29 [facility] [address] [facility] [id number] [address] [place] [address] Jan, Other chronic pain G89.29 [facility] [address] [facility] [id number] [address] [place] [address] Dec, Other chronic pain G89.29 [facility] [address] [facility] [id number] [address] [place] [address] Dec, Anticoagulant long-term use Z79.01 [facility] [address] [facility] [id number] [address] [place] [address] Dec, Chronic prescription opiate use Z79.899 ; Factor V Leiden D68.51 ; Other chronic pain G89.29 and Anticoagulant long-term use Z79.01 [facility] [address] [facility] [id number] [address] [place] [address] Nov, Other chronic pain G89.29 [facility] [address] [facility] [id number] [address] [place] [address] Oct, Other chronic pain G89.29 [facility] [address] [facility] [id number] [address] [place] [phone] Sep, Other chronic pain G89.29 [facility] [address] [facility] [id number] [address] [place] [address] Aug, Other chronic pain G89.29 [facility] [address] [facility] [id number] [address] [place] [address] Aug, Venous stasis ulcers, left I 83.029 [place] [address] [facility] [id number] [address] [place] [address] July, Other chronic pain G89.29 [place] [address] [facility] [id number] [address] [place] [address] July, Venous stasis ulcers, left I 83.029 and Snoring R06.83 [place] [address] [facility] [id number] [address] [place] [address] Jun, Idiopathic chronic gout of m ultiple 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 tophus M1A.09X0 [place] [address] [facility] [id number] [address] [place] [address] Jun, Acute renal insufficiency N2 8.9 [place] [address] [facility] [id number] [address] [place] [address] Jun, Other chronic pain G89.29 [place] [address] [facility] [id number] [address] [place] [address] Jun, Acute renal insufficiency N2 8.[id number] [place] [id number] Jun, Idiopathic chronic gout of multiple site s without tophus M1A.09X0 ; Essential hypertension I10 and Anticoagulant long-term use Z79.01 [place] [address] [address] [facility] [id number] [address] [place] [phone] Jun, Anticoagulant long-term use Z79.01 and Essential hypertension I10 [place] [address] [address] [facility] [id number] [address] [place] [phone] May, Idiopathic chronic gout of m ultiple 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 tophus M1A.09X0 [place] [address] [address] [facility] [id number] [address] [place] [phone] May, [place] [address] [address] [facility] [id number] [address] [place] [phone] May, Essential hypertension I10 ; Pure hypercholesterolemia E78.00 ; Anticoagulant long-term use Z79.01 and 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.09X0 [place] [address] [id number] [address] [place] [phone] May, Other chronic pain G89.29 [place] [address] [address] [facility] [id number] [address] [place] [phone] May, Anticoagulant long-term use Z79.01 [place] [address] [address] [facility] [id number] [address] [place] [phone] May, Chronic prescription opiate use Z79.899 ; Other chronic pain G89.29 ; Essential hypertension I10 ; Factor V Leiden D68.51 ; Anticoagulant long-term use Z79.01 ; Pure hypercholesterolemia E78.00 ; Venous stasis ulcers, left I83.029 ; 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.09X0 and Cellulitis of left lower extremity L03.116 [place] [address] [address] [facility] [id number] [address] [place] [phone] Apr, Other chronic pain G89.29 [place] [address] [address] [facility] [id number] [address] [place] [phone] Mar, Other chronic pain G89.29 [place] [address] [address] [facility] [id number] [address] [place] [phone] Mar, Factor V Leiden D68.51 ; Pur e hypercholesterolemia E78.00 and Other chronic pain G89.29 [place] [address] [address] [facility] [facility] [id number] [address] [place] [address] Feb, Other chronic pain G89.29 [place] [address] [address] [facility] [id number] [address] [place] [address] Jan, Idiopathic chronic gout of m ultiple 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 tophus M1A.09X0 [place] [address] [address] [facility] [id number] [address] [place] [address] Jan, Other chronic pain G89.29 [place] [address] [facility] [id number] [address] [place] [address] Dec, Anticoagulant long-term use Z79.01 ; Factor V Leiden D68.51 and Other chronic pain G89.29 [place] [address] [address] [facility] [id number] [address] [place] [address] Dec, Other chronic pain G89.29 [place] [address] [facility] [id number] [address] [place] [address] 13 Nov, 2016 Other chronic pain G89.29 [place] [address] [facility] [id number] [address] [place] [address] Oct, Other chronic pain G89.29 [place] [address] [facility] [id number] [address] [place] [address] Sep, Anticoagulant long-term use Z79.01 [place] [address] [facility] [id number] [address] [place] [address] Sep, Chronic prescription opiate use Z79.899 ; Anticoagulant long-term use Z79.01 ; Essential hypertension I10 ; Pure hypercholesterolemia E78.00 ; Factor V Leiden D68.51 ; Venous stasis ulcers, left I83.029 ; Other chronic pain G89.29 and 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.09X0 [place] [address] [address] [facility] [id number] [address] [place] [address] Aug, Anticoagulant long-term use Z79.01 [place] [address] [facility] [id number] [address] [place] [address] Aug, Other chronic pain G89.29 [place] [address] [facility] [id number] [address] [place] [address] Aug, Essential hypertension I10 a nd Factor V Leiden D68.[address] [place] [id number] [place] [address] [id number] 15 Aug, 2016 Acute right ankle pain M25.571 and Tendo nitis of ankle M77.50 [place] [address] [address] [facility] [id number] [address] [place] [address] Aug, [facility] [address] [id number] [address] [place] [address] July, Other chronic pain G89.29 [facility] [address] [id number] [address] [place] [address] Jun, Other chronic pain G89.29 [facility] [address] [facility] [id number] [address] [place] [address] Jun, Other chronic pain G89.29 [facility] [address] [id number] [address] [place] [address] Jun, Anticoagulant long-term use Z79.01 [facility] [address] [facility] [id number] [address] [place] [address] May, Other chronic pain G89.29 [facility] [address] [facility] [id number] [address] [place] [address] May, Anticoagulant long-term use Z79.01 [facility] [address] [id number] [address] [place] [address] May, Other chronic pain G89.29 [facility] [address] [facility] [id number] [address] [place] [address] Apr, Anticoagulant long-term use Z79.01 [facility] [address] [facility] [id number] [address] [place] [address] Apr, Other chronic pain G89.29 [facility] [address] [id number] [address] [place] [address] Apr, Anticoagulant long-term use Z79.01 and Pure hypercholesterolemia E78.00 [facility] [address] [id number] [address] [place] [address] Mar, [facility] [address] [facility] [id number] [address] [place] [address] Mar, Anticoagulant long-term use Z79.01 [facility] [address] [facility] [id number] [address] [place] [address] 04 Mar, 2016 Other chronic pain G89.29 [facility] [address] [address] 08 Feb, 2016 Essential hypertension I10 ; Chronic prescription opiate use Z79.899 ; Other chronic pain G89.29 ; Screening Z13.9 ; Factor V Leiden D68.51 ; Anticoagulant long-term use Z79.01 ; Venous stasis dermatitis of left lower extremity I83.12 and Pure hypercholesterolemia E78.00 [facility] [address] [facility] [id number] [address] [place] [address] 14 Jan, 2016 Anticoagulant long-term use Z79.01 [place] [address] [facility] [id number] [address] [place] [address] Jan, Anticoagulant long-term use Z79.01 [place] [address] [place] [id number] [address] [place] [address] Jan, [facility] [address] [facility] [id number] [address] [place] [address] Jan, [facility] [address] [place] [id number] [address] [place] [address] Dec, [facility] [address] [facility] [id number] [address] [place] [address] Nov, [facility] [address] [facility] [id number] [address] [place] [address] Oct, Anticoagulant long-term use Z79.01 [facility] [address] [facility] [id number] [address] [place] [address] Oct, [facility] [address] [facility] [id number] [address] [place] [address] Oct, Anticoagulant long-term use Z79.01 [facility] [address] [facility] [id number] [address] [place] [address] Sep, [facility] [address] [facility] [id number] [address] [place] [address] Aug, [facility] [address] [facility] [id number] [address] [place] [address] Aug, Chronic prescription opiate use Z79.899 ; Other chronic pain G89.29 ; Essential hypertension I10 and Pure hypercholesterolemia E78.0 [facility] [address] [facility] [id number] [address] [place] [address] July, Hyperlipidemia, group D E78. 3 and Anticoagulant long-term use Z79.01 [facility] [address] [facility] [id number] [address] [place] [address] July, Hyperlipidemia, group D E78. 3 ; Essential hypertension I10 and Factor V Leiden D68.51 [facility] [address] [facility] [id number] [address] [place] [address] July, Essential hypertension I10 [facility] [address] [facility] [id number] [address] [place] [address] Jun, Hyperlipidemia, group D E78. 3 [facility] [address] [facility] [id number] [address] [place] [address] Jun, Factor V Leiden D68.51 [facility] [address] [facility] [id number] [address] [place] [address] May, Factor V Leiden D68.51 ; Hyp erlipidemia, group D E78.3 ; Essential hypertension I10 ; Other chronic pain G89.29 and Anticoagulant long-term use Z79.01 [facility] [address] [facility] [id number] [address] [place] [address] May, Anticoagulant long-term use Z79.01 [facility] [address] [facility] [id number] [address] [place] [address] May, Anticoagulant long-term use Z79.01 [facility] [address] [facility] [id number] [address] [place] [address] May, [facility] [address] [place] [id number] [address] [place] [address] 03 Apr, 2015 [facility] [address] [address] Mar, [facility] [address] [address] Mar, [facility] [address] [address] Feb, Anticoagulant long-term use Z79.01 [facility] [address] [place] [id number] [place] [address] 16 Feb, 2015 Chronic prescription opiate use Z79.899 ; Other chronic pain G89.29 ; Hyperlipidemia, group D E78.3 ; Factor V Leiden D68.51 and Anticoagulant long- term use Z79.01 [place] [address] [address] Feb, [facility] [address] [address] Jan, [facility] [address] [address] Dec, Hyperlipidemia, unspecified E78.5 [facility] [address] [address] Dec, Cellulitis of left lower ext remity L03.116 ; Venous stasis ulcers, left I83.029 and Factor V Leiden D68.51 [facility] [address] [place] [id number] [address] [place] [address] Dec, Hyperlipidemia 272.4 and Fac tor 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 [place] [address] [address] Dec, [facility] [address] [address] Nov, 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 [facility] [address] [place] [address] Nov, [facility] [address] [place] [id number] [place] [address] Nov, [facility] [address] [place] [id number] [place] [address] Nov, [facility] [address] [place] [id number] [place] [address] Oct, [facility] [address] [place] [id number] [place] [address] Oct, Hyperlipidemia 272.4 ; Chron ic pain disorder 338.4 ; Venous stasis ulcer of left lower extremity 454.0 and 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 [facility] [address] [place] [id number] [place] [address] Sep, [facility] [address] [address] Sep, [facility] [address] [place] [id number] [place] [address] Sep, Hyperlipidemia 272.4 and Fac tor 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 [facility] [address] [address] Aug, [facility] [address] [place] [id number] [address] [place] [address] Aug, 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 [facility] [address] [place] [id number] [address] [place] [address] July, [facility] [address] [place] [id number] [address] [place] [address] July, Essential hypertension, fito gn 401.1 ; 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 ; Chronic pain disorder 338.4 ; Hyperlipidemia 272.4 and Venous stasis ulcer of left lower extremity 454.0 [facility] [address] [place] [id number] [address] [place] [address] Jun, [facility] [address] [id number] [address] [place] [address], [place] [id number] 13 Jun, 2014 [facility] [address] [id number] [address] [place] [address], [place] [address] May, [facility] [address] [id number] [address] [place] [address], [place] [address] May, [facility] [address] [id number] [address] [place] [address], [place] [address] Apr, [facility] [address] [id number] [address] [place] [address], [place] [address] 20 Apr, 2014 [facility] [address] [id number] [address] [place] [address], [place] [address] 18 Apr, 2014 [facility] [address] [id number] [address] [place] [address], [place] [address] Apr, [facility] [address] [id number] [address] [place] [address], [place] [address] Apr, [facility] [address] [id number] [address] [place] [address], [place] [address] Apr, [facility] [address] [id number] [address] [place] [address], [place] [address] Mar, [facility] [address] [id number] [address] [place] [address], [place] [address] Mar, [facility] [address] [id number] [address] [place] [address] Mar, [facility] [address] [id number] [address] [place] [address], [place] [address] Mar, [facility] [address] [id number] [address] [place] [address], [place] [address] Feb, [facility] [address] [id number] [address] [place] [address], [place] [address] Feb, [facility] [address] [id number] [address] [place] [address] Feb, [facility] [address] [id number] [address] [place] [address], [place] [address] Feb, [facility] [address] [id number] [address] [place] [address], [place] [address] Jan, [facility] [address] [id number] [address] [place] [address], [place] [address] Jan, [facility] [address] [id number] [address] [place] [address], [place] [address] Jan, [facility] [address] [id number] [address] [place] [address], [place] [address] Jan, [facility] [address] [id number] [address] [place] [address], [place] [address] Jan, [facility] [address] [id number] [address] [place] [address], [place] [address] Jan, [facility] [address] [id number] [address] [place] [address], [place] [address] Dec, [facility] [address] [id number] [address] [place] [address], [place] [address] Dec, [facility] [address] [id number] [address] [place] [address], [place] [address] Oct, [facility] [address] [id number] [address] [place] [address], [place] [address] Oct, [facility] [address] [id number] [address] [place] [address], [place] [address] Sep, [facility] [address] [id number] [address] [place] [address], [place] [address] Sep, [facility] [address] [id number] [address] [place] [address], [place] [address] Sep, [facility] [address] [id number] [address] [place] [address], [place] [address] Sep, [facility] [address] [id number] [address] [place] [address], [place] [address] Aug, [facility] [address] [id number] [address] [place] [address], [place] [address] Aug, [facility] [address] [id number] [address] [place] [address], [place] [address] July, [facility] [address] [id number] [address] [place] [address], [place] [address] July, [facility] [address] [id number] [address] [place] [address], [place] [address] Jun, [facility] [address] [id number] [address] [place] [address], [place] [address] Jun, [facility] [address] [id number] [address] [place] [address], [place] [address] May, [facility] [address] [id number] [address] [place] [address], [place] [address] May, [facility] [address] [id number] [address] [place] [address], [place] [address] Apr, [facility] [address] [id number] [address] [place] [address], [place] [address] Apr, [facility] [address] [id number] [address] [place] [address], [place] [address] Mar, [facility] [address] [id number] [address] [place] [address], [place] [address] Mar, [facility] [address] [id number] [address] [place] [address], [place] [address] Jan, [facility] [address] [id number] [address] [place] [address], [place] [address] Jan, [facility] [address] [id number] [address] [place] [address], [place] [address] Jan, [facility] [address] [id number] [address] [place] [address] [address] Jan, [facility] [address] [id number] [address] [place] [address], [place] [address] Jan, [facility] [address] [id number] [address] [place] [address], [place] [address] Dec, [facility] [address] [id number] [address] [place] [address], [place] [address] Dec, [facility] [address] [id number] [address] [place] [address], [place] [address] Dec, [facility] [address] [id number] [address] [place] [address], [place] [address] Nov, [facility] [address] [id number] [address] [place] [address], [place] [address] Nov, [facility] [address] [id number] [address] [place] [address], [place] [address] Sep, [facility] [address] [id number] [address] [place] [address], [place] [address] Sep, [facility] [address] [id number] [address] [place] [address] Aug, [facility] [address] [id number] [address] [place] [address] Aug, [facility] [place] [address] [id number] [place] [id number] July, [facility] [place] [address] [id number] [place] [id number] Jun, [facility] [place] [address] [id number] [place] [id number] Apr, [facility] [place] [address] [id number] [place] [id number] Mar, [facility] [address] [id number] [address] [place] [address], [place] [address] Mar, [facility] [address] [id number] [place] [id number] Mar, [facility] [address] [id number] [address] [place] [address] Mar, [facility] [place] [address] [id number] [place] [id number] Feb, [facility] [address] [facility] [id number] [address] [place] [id number] Feb, [facility] [place] [address] [id number] [place] [id number] Feb, [facility] [address] [id number] [address] [place] [address] Feb, [facility] [place] [address] [id number] [place] [id number] Oct, [facility] [place] [address] [id number] [place] [id number] Oct, [facility] [place] [address] [id number] [place] [id number] July, [facility] [place] [address] [id number] [place] [id number] July, [facility] [place] [address] [id number] [place] [id number] Jun, [facility] [place] [address] [id number] [place] [id number] Jun, [facility] [place] [address] [id number] [place] [id number] Jun, [facility] [place] [address] [id number] [place] [id number] Mar, [facility] [place] [address] [id number] [place] [id number] Mar, [facility] [address] [facility] [id number] [address] [place] [address] Feb, [facility] [address] [facility] [id number] [address] [place] [address] Feb, [facility] [address] [facility] [id number] [address] [place] [address] Jan, [facility] [address] [facility] [id number] [address] [place] [id number] Jan, [facility] [address] [facility] [id number] [address] [place] [id number] Jan, [facility] [address] [facility] [id number] [address] [place] [phone] Jan, [facility] [address] [facility] [id number] [address] [place] [phone] Jan, [facility] [address] [facility] [id number] [address] [place] [phone] Aug, [facility] [address] [facility] [id number] [address] [place] [phone] Apr, IMMUNIZATIONS No Known Immunizations SOCIAL HISTORY Never Assessed REASON FOR VISIT PLAN OF CARE VITAL SIGNS Height 75.5 in 2012-12-27 Weight 256 lbs 2012-12-27 Temperature 98.5 degrees Fahrenheit 2012-12-27 Heart Rate 64 bpm 2012-12-27 Respiratory Rate 14 2012-12-27 Blood pressure systolic 138 mmHg 2012-12-27 Blood pressure diastolic 88 mmHg 2012-12-27 MEDICATIONS Unknown Medications RESULTS No Results PROCEDURES [...]
--- OUTSIDE RECORDS SUMMARY | 2019-11-08 12:56 | XMS REPORT ---
Author Author Zana ORTIZ Organization [facility] Address [address] [place] [address] Care Team Providers Care Sleep Tech Name Role Phone AVANI ORTIZ Unavailable PROBLEMS Type Condition ICD9-CM Code XQP54-NV Code Onset Dates Condition S tatus SNOMED Code Problem Factor V Leiden D68.51 Active 3070 55581 Problem Anticoagulant long-term use Z79.01 Ac tive 437904010 Problem Post-phlebitic syndrome I87.009 Active 71899143 Problem 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 39686319 Problem Other chronic pain G89.29 Active 8 5835275 Problem Venous stasis ulcers, left I83.029 Act ozzy 450866856 Problem Essential hypertension I10 Active 56612749 Problem Venous anomaly Q27.9 Active 89878 4003 Problem Congenital single kidney Q60.0 Activ e 61681851 Problem Chronic prescription opiate use Z79.899 Active 117510544 Problem Pure hypercholesterolemia E78.00 Acti ve [id number] ALLERGIES No Information ENCOUNTERS Encounter Location Date Diagnosis [facility] [address] [facility] [id number] [address] [place] [address] July, [facility] [address] [facility] [id number] [address] [place] [address] July, Other chronic pain G89.29 [facility] [address] [facility] [id number] [address] [place] [address] July, Other chronic pain G89.29 [facility] [address] [facility] [id number] [address] [place] [address] July, Other chronic pain G89.29 [facility] [address] [facility] [id number] [address] [place] [address] July, Essential hypertension I10 ; Venous stasis ulcers, left I83.029 ; Other chronic pain G89.29 ; Factor V Leiden D68.51 and 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.09X0 [place] [address] [facility] [id number] [address] [place] [address] Jun, Other chronic pain G89.29 [place] [address] [facility] [id number] [address] [place] [address] 02 Jun, 2019 Anticoagulant long-term use Z79.01 [facility] [id number] [place] [address] [id number] May, Anticoagulant long-term use Z79.01 [place] [address] [facility] [id number] [address] [place] [address] May, Other chronic pain G89.29 [place] [address] [facility] [id number] [address] [place] [address] May, Anticoagulant long-term use Z79.01 [facility] [id number] [place] [address] [id number] Apr, Anticoagulant long-term use Z79.01 [place] [address] [facility] [id number] [address] [place] [address] Apr, Other chronic pain G89.29 [place] [address] [facility] [id number] [address] [place] [address] Apr, Anticoagulant long-term use Z79.01 [facility] [id number] [place] [address] [id number] Apr, Anticoagulant long-term use Z79.01 [facility] [address] [id number] [id number] 07 Apr, 2019 Factor V Leiden D68.51 [place] [address] [facility] [id number] [address] [place] [address] Mar, Anticoagulant long-term use Z79.01 [place] [address] [facility] [id number] [address] [place] [address] Mar, Factor V Leiden D68.51 [place] [address] [facility] [id number] [address] [place] [address] Mar, Occult blood positive stool R19.5 [place] [address] [facility] [id number] [address] [place] [address] Mar, Other chronic pain G89.29 [place] [address] [facility] [id number] [address] [place] [address] Mar, Factor V Leiden D68.51 and A nticoagulant long-term use Z79.[address] [facility] [id number] [place] [address] [id number] Mar, Anticoagulant long-term use Z79.01 [facility] [id number] [place] [address] [id number] Mar, Anticoagulant long-term use Z79.01 [place] [address] [facility] [id number] [address] [place] [address] Mar, Anticoagulant long-term use Z79.01 [place] [address] [place] [id number] [address] [place] [address] Mar, Pure hypercholesterolemia E7 8.[address] [facility] [id number] [place] [address] [id number] Mar, Anticoagulant long-term use Z79.01 [place] [address] [facility] [id number] [address] [place] [address] Mar, Other chronic pain G89.29 [place] [address] [facility] [id number] [address] [place] [address] Feb, Anticoagulant long-term use Z79.01 and Essential hypertension I10 [place] [address] [facility] [id number] [address] [place] [address] Feb, Anticoagulant long-term use Z79.01 ; Essential hypertension I10 ; Chronic prescription opiate use Z79.899 ; Other chronic pain G89.29 ; Venous stasis ulcers, left I83.029 ; 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.09X0 and Pure hypercholesterolemia E78.[address] [facility] [address] [id number] [place] [id number] Feb, Anticoagulant long-term use Z79.01 [facility] [address] [facility] [id number] [address] [place] [address] Feb, Anticoagulant long-term use Z79.01 [facility] [address] [facility] [id number] [address] [place] [address] Feb, Other chronic pain G89.[address] [facility] [address] [id number][place] [id number] Feb, Anticoagulant long-term use Z79.01 [facility] [address] [facility] [id number] [address] [place] [address] Jan, Anticoagulant long-term use Z79.[address] [facility] [address] [id number][place] [id number] Jan, Anticoagulant long-term use Z79.[address] [facility] [address] [id number][place] [id number] Jan, Anticoagulant long-term use Z79.01 [facility] [address] [facility] [id number] [address] [place] [address] Jan, Anticoagulant long-term use Z79.[address] [facility] [address] [id number], [place] [id number] Jan, Anticoagulant long-term use Z79.01 [facility] [address] [facility] [id number] [address] [place] [address] Jan, Anticoagulant long-term use Z79.[address] [facility] [address] [id number][place] [id number] Jan, Anticoagulant long-term use Z79.01 [facility] [address] [facility] [id number] [address] [place] [address] Jan, [facility] [address] [id number][place] [id number] Jan, Anticoagulant long-term use Z79.01 [facility] [address] [facility] [id number] [address] [place] [address] Jan, [facility] [address] [facility] [id number] [address] [place] [address] Jan, Other chronic pain G89.29 [facility] [address] [facility] [id number] [address] [place] [address] Jan, Anticoagulant long-term use Z79.[address] [facility] [address] [id number], [place] [id number] Dec, Anticoagulant long-term use Z79.01 [facility] [address] [facility] [id number] [address] [place] [address] Dec, Anticoagulant long-term use Z79.01 [facility] [address] [id number][place] [id number] Dec, Anticoagulant long-term use Z79.01 [facility] [address] [id number][place] [id number] Dec, Anticoagulant long-term use Z79.01 [facility] [address] [facility] [id number] [address] [place] [address] Dec, Anticoagulant long-term use Z79.01 [facility] [address] [facility] [id number] [address] [place] [address] Dec, Anticoagulant long-term use Z79.01 [facility] [address] [facility] [id number] [address] [place] [address] Dec, Anticoagulant long-term use Z79.01 [facility] [address] [facility] [id number] [address] [place] [address] Dec, Other chronic pain G89.29 [facility] [address] [facility] [id number] [address] [place] [address] Dec, Anticoagulant long-term use Z79.01 [facility] [address] [facility] [id number] [address] [place] [address] Dec, [facility] [address] [facility] [id number] [address] [place] [address] Dec, Other chronic pain G89.29 [facility] [address] [id number][place] [id number] Dec, Anticoagulant long-term use Z79.01 [facility] [address] [facility] [id number] [address] [place] [address] Nov, Anticoagulant long-term use Z79.01 [facility] [address] [facility] [address] [id number][place] [id number] Nov, Anticoagulant long-term use Z79.01 [facility] [address] [facility] [id number] [address] [place] [address] Nov, Anticoagulant long-term use Z79.01 [facility] [address] [facility] [id number] [address] [place] [address] Nov, Other chronic pain G89.29 [facility] [address] [facility] [id number] [address] [place] [address] Nov, Other chronic pain G89.29 [facility] [address] [facility] [id number] [address] [place] [address] Nov, Anticoagulant long-term use Z79.01 [facility] [address] [id number][place] [id number] Nov, Factor V Leiden D68.51 [facility] [address] [id number][place] [id number] Nov, Factor V Leiden D68.51 [facility] [address] [facility] [id number] [address] [place] [address] Nov, Anticoagulant long-term use Z79.01 [facility] [address] [id number], [place] [id number] Nov, Anticoagulant long-term use Z79.01 [facility] [address] [facility] [id number] [address] [place] [address] Nov, Essential hypertension I10 ; Factor V Leiden D68.51 and Anticoagulant long-term use Z79.01 [facility] [address] [id number], [place] [id number] Oct, Anticoagulant long-term use Z79.01 [facility] [address] [facility] [id number] [address] [place] [address] Oct, [facility] [address] [facility] [id number] [address] [place] [address] Oct, Anticoagulant long-term use Z79.01 [facility] [address] [facility] [id number] [address] [place] [address] Oct, Other chronic pain G89.29 [facility] [address] [facility] [id number] [address] [place] [address] Oct, Anticoagulant long-term use Z79.01 [facility] [address] [facility] [id number] [address] [place] [address] Oct, [facility] [address] [facility] [id number] [address] [place] [address] Sep, Anticoagulant long-term use Z79.01 [facility] [address] [id number], [place] [id number] Sep, Anticoagulant long-term use Z79.01 [facility] [address] [facility] [id number] [address] [place] [address] Sep, Other chronic pain G89.29 [facility] [address] [facility] [id number] [address] [place] [address] Sep, Anticoagulant long-term use Z79.01 [facility] [address] [id number], [place] [id number] Sep, Anticoagulant long-term use Z79.01 [facility] [address] [facility] [id number] [address] [place] [address] Aug, Anticoagulant long-term use Z79.01 [facility] [address] [facility] [id number] [address] [place] [address] Aug, Anticoagulant long-term use Z79.01 [facility] [address] [id number] [address] [place] [address] Aug, Other chronic pain G89.29 [place] [address] [facility] [id number] [address] [place] [address] Aug, Other chronic pain G89.29 ; Anticoagulant long-term use Z79.01 ; 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.09X0 ; Oral pain K13.79 ; Dental infection K04.7 ; Essential hypertension I10 and Pure hypercholesterolemia E78.00 [facility] [address] [id number] [address] [place] [address] July, Other chronic pain G89.29 [facility] [address] [id number] [address] [place] [address] Jun, Other chronic pain G89.29 [facility] [address] [id number] [address] [place] [address] Jun, [facility] [address] [id number] [address] [place] [address] Jun, [facility] [address] [facility] [address] [id number][place] [id number] Jun, Anticoagulant long-term use Z79.01 and I diopathic chronic gout of multiple 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 tophus M1A.09X0 [facility] [address] [id number] [address] [place] [address] May, Other chronic pain G89.29 [facility] [address] [id number] [address] [place] [address] May, [facility] [address] [facility] [id number] [address] [place] [address] May, Anticoagulant long-term use Z79.01 [facility] [address] [facility] [id number] [address] [place] [address] May, [facility] [place] [id number] [facility] [id number] [place] [address] [id number] May, Anticoagulant long-term use Z79.01 [place] [address] [facility] [id number] [address] [place] [address] May, Anticoagulant long-term use Z79.01 [place] [address] [place] [id number] [address] [place] [address] May, Anticoagulant long-term use Z79.01 [facility] [facility] [address] [id number], [place] [id number] May, Factor V Leiden D68.51 [place] [address] [facility] [id number] [address] [place] [address] Apr, Other chronic pain G89.29 [place] [address] [place] [id number] [address] [place] [address] Apr, Idiopathic chronic gout of m ultiple 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 tophus M1A.09X0 [facility] [address] [id number], [place] [id number] Apr, Anticoagulant long-term use Z79.01 [facility] [address] [id number], [place] [id number] Apr, Anticoagulant long-term use Z79.01 ; Med ication side effect T88.7XXA and 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.09X0 [place] [address] [facility] [id number] [address] [place] [address] Apr, [place] [address] [place] [id number] [address] [place] [address] 14 Apr, 2018 Anticoagulant long-term use Z79.01 [place] [address] [facility] [id number] [address] [place] [address] 11 Apr, 2018 Medication side effect T88.7 XXA and Factor V Leiden D68.51 [place] [address] [facility] [id number] [address] [place] [address] Apr, Idiopathic chronic gout of m ultiple 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 tophus M1A.09X0 and Anticoagulant long-term use Z79.01 [place] [address] [facility] [address] [id number] [place] [address] [id number] Mar, Factor V Leiden D68.51 and Anticoagulant long-term use Z79.01 [place] [address] [facility] [id number] [address] [place] [address] Mar, Factor V Leiden D68.51 ; Ant icoagulant long-term use Z79.01 ; 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.09X0 ; Pure hypercholesterolemia E78.00 ; Other chronic pain G89.29 and BMI 40.0-44.9, adult Z68.41 [place] [address] [place] [id number] [address] [place] [address] Mar, [place] [address] [place] [id number] [address] [place] [address] Mar, Other chronic pain G89.29 [place] [address] [facility] [id number] [address] [place] [address] Feb, Idiopathic chronic gout of m ultiple 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 tophus M1A.09X0 [place] [id number] [place] [address] [id number] Feb, Anticoagulant long-term use Z79.01 and I diopathic chronic gout of multiple 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 tophus M1A.09X0 [place] [address] [facility] [id number] [address] [place] [address] Feb, Anticoagulant long-term use Z79.01 and 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.09X0 [facility] [address] [id number] [address] [place] [address] Feb, [facility] [address] [facility] [id number] [address] [place] [address] Feb, Other chronic pain G89.29 [facility] [address] [id number] [address] [place] [address] Jan, Other chronic pain G89.29 [facility] [address] [id number] [address] [place] [address] Dec, Other chronic pain G89.29 [facility] [address] [facility] [id number] [address] [place] [address] Dec, Anticoagulant long-term use Z79.01 [facility] [address] [facility] [id number] [address] [place] [address] Dec, Chronic prescription opiate use Z79.899 ; Factor V Leiden D68.51 ; Other chronic pain G89.29 and Anticoagulant long-term use Z79.01 [facility] [address] [id number] [address] [place] [address] Nov, Other chronic pain G89.29 [facility] [address] [facility] [id number] [address] [place] [address] Oct, Other chronic pain G89.29 [facility] [address] [id number] [address] [place] [address] Sep, Other chronic pain G89.29 [facility] [address] [id number] [address] [place] [address] Aug, Other chronic pain G89.29 [facility] [address] [facility] [id number] [address] [place] [address] Aug, Venous stasis ulcers, left I 83.029 [facility] [address] [facility] [id number] [address] [place] [address] July, Other chronic pain G89.29 [place] [address] [facility] [id number] [address] [place] [address] July, Venous stasis ulcers, left I 83.029 and Snoring R06.83 [place] [address] [facility] [id number] [address] [place] [address] Jun, Idiopathic chronic gout of m ultiple 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 tophus M1A.09X0 [place] [address] [facility] [id number] [address] [place] [address] Jun, Acute renal insufficiency N2 8.9 [place] [address] [facility] [id number] [address] [place] [address] Jun, Other chronic pain G89.29 [place] [address] [facility] [id number] [address] [place] [address] Jun, Acute renal insufficiency N2 8.[address] [place] [id number] [place] [address] [id number] Jun, Idiopathic chronic gout of multiple site s without tophus M1A.09X0 ; Essential hypertension I10 and Anticoagulant long-term use Z79.01 [place] [address] [facility] [id number] [address] [place] [address] Jun, Anticoagulant long-term use Z79.01 and Essential hypertension I10 [place] [address] [facility] [id number] [address] [place] [address] May, Idiopathic chronic gout of m ultiple 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 tophus M1A.09X0 [place] [address] [facility] [id number] [address] [place] [address] May, [place] [address] [address] [facility] [id number] [address] [place] [phone] May, Essential hypertension I10 ; Pure hypercholesterolemia E78.00 ; Anticoagulant long-term use Z79.01 and 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.09X0 [place] [address] [facility] [id number] [address] [place] [address] May, Other chronic pain G89.29 [place] [address] [facility] [id number] [address] [place] [phone] May, Anticoagulant long-term use Z79.01 [place] [address] [address] [place] [id number] [address] [place] [phone] May, Chronic prescription opiate use Z79.899 ; Other chronic pain G89.29 ; Essential hypertension I10 ; Factor V Leiden D68.51 ; Anticoagulant long-term use Z79.01 ; Pure hypercholesterolemia E78.00 ; Venous stasis ulcers, left I83.029 ; 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.09X0 and Cellulitis of left lower extremity L03.116 [place] [id number] [place] [phone] Apr, Other chronic pain G89.29 [place] [address] [facility] [id number] [address] [place] [phone] Mar, Other chronic pain G89.29 [place] [address] [place] [id number] [address] [place] [phone] Mar, Factor V Leiden D68.51 ; Pur e hypercholesterolemia E78.00 and Other chronic pain G89.29 [place] [address] [facility] [id number] [address] [place] [phone] Feb, Other chronic pain G89.29 [place] [address] [place] [id number] [address] [place] [id number] Jan, Idiopathic chronic gout of m ultiple 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 tophus M1A.09X0 [place] [address] [facility] [id number] [address] [place] [phone] Jan, Other chronic pain G89.29 [place] [address] [place] [id number] [address] [place] [phone] Dec, Anticoagulant long-term use Z79.01 ; Factor V Leiden D68.51 and Other chronic pain G89.29 [place] [address] [facility] [id number] [address] [place] [id number] 11 Dec, 2016 Other chronic pain G89.29 [facility] [address] [facility] [id number] [address] [place] [id number] 13 Nov, 2016 Other chronic pain G89.29 [facility] [address] [facility] [id number] [address] [place] [phone] Oct, Other chronic pain G89.29 [place] [address] [facility] [id number] [address] [place] [id number] Sep, Anticoagulant long-term use Z79.01 [place] [address] [address] [facility] [id number] [address] [place] [phone] Sep, Chronic prescription opiate use Z79.899 ; Anticoagulant long-term use Z79.01 ; Essential hypertension I10 ; Pure hypercholesterolemia E78.00 ; Factor V Leiden D68.51 ; Venous stasis ulcers, left I83.029 ; Other chronic pain G89.29 and 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.09X0 [place] [address] [address] [facility] [id number] [address] [place] [id number] Aug, Anticoagulant long-term use Z79.01 [place] [address] [facility] [id number] [address] [place] [id number] Aug, Other chronic pain G89.29 [place] [address] [address] [facility] [id number] [address] [place] [id number] Aug, Essential hypertension I10 a nd Factor V Leiden D68.[address] [place] [address] [id number] [place] [address] [id number] 15 Aug, 2016 Acute right ankle pain M25.571 and Tendo nitis of ankle M77.50 [place] [address] [facility] [id number] [address] [place] [address] Aug, [facility] [address] [facility] [id number] [address] [place] [address] July, Other chronic pain G89.29 [facility] [address] [id number] [address] [place] [address] Jun, Other chronic pain G89.29 [facility] [address] [facility] [id number] [address] [place] [address] Jun, Other chronic pain G89.29 [facility] [address] [id number] [address] [place] [address] Jun, Anticoagulant long-term use Z79.01 [facility] [address] [facility] [id number] [address] [place] [address] May, Other chronic pain G89.29 [facility] [address] [facility] [id number] [address] [place] [address] May, Anticoagulant long-term use Z79.01 [facility] [address] [facility] [id number] [address] [place] [address] May, Other chronic pain G89.29 [facility] [address] [facility] [id number] [address] [place] [address] Apr, Anticoagulant long-term use Z79.01 [facility] [address] [facility] [id number] [address] [place] [address] Apr, Other chronic pain G89.29 [facility] [address] [facility] [id number] [address] [place] [address] Apr, Anticoagulant long-term use Z79.01 and Pure hypercholesterolemia E78.00 [facility] [address] [facility] [id number] [address] [place] [address] Mar, [facility] [address] [facility] [id number] [address] [place] [address] Mar, Anticoagulant long-term use Z79.01 [facility] [address] [place] [id number] [address] [place] [address] 04 Mar, 2016 Other chronic pain G89.29 [facility] [address] [address] 08 Feb, 2016 Essential hypertension I10 ; Chronic prescription opiate use Z79.899 ; Other chronic pain G89.29 ; Screening Z13.9 ; Factor V Leiden D68.51 ; Anticoagulant long-term use Z79.01 ; Venous stasis dermatitis of left lower extremity I83.12 and Pure hypercholesterolemia E78.00 [facility] [address] [facility] [id number] [address] [place] [address] 14 Jan, 2016 Anticoagulant long-term use Z79.01 [facility] [address] [address] Jan, Anticoagulant long-term use Z79.01 [place] [address] [address] Jan, [facility] [address] [address] Jan, [facility] [address] [address] Dec, [facility] [address] [address] Nov, [facility] [address] [place] [id number] [address] [place] [address] Oct, Anticoagulant long-term use Z79.01 [facility] [address] [facility] [id number] [address] [place] [address] Oct, [facility] [address] [place] [id number] [place] [address] Oct, Anticoagulant long-term use Z79.01 [facility] [address] [place] [id number] [address] [place] [address] Sep, [facility] [address] [address] Aug, [facility] [address] [facility] [id number] [address] [place] [address] Aug, Chronic prescription opiate use Z79.899 ; Other chronic pain G89.29 ; Essential hypertension I10 and Pure hypercholesterolemia E78.0 [facility] [address] [facility] [id number] [address] [place] [address] July, Hyperlipidemia, group D E78. 3 and Anticoagulant long-term use Z79.01 [facility] [address] [facility] [id number] [address] [place] [address] July, Hyperlipidemia, group D E78. 3 ; Essential hypertension I10 and Factor V Leiden D68.51 [facility] [address] [facility] [id number] [address] [place] [address] July, Essential hypertension I10 [place] [address] [facility] [id number] [address] [place] [address] Jun, Hyperlipidemia, group D E78. 3 [facility] [address] [facility] [id number] [address] [place] [address] Jun, Factor V Leiden D68.51 [place] [address] [facility] [id number] [address] [place] [address] May, Factor V Leiden D68.51 ; Hyp erlipidemia, group D E78.3 ; Essential hypertension I10 ; Other chronic pain G89.29 and Anticoagulant long-term use Z79.01 [facility] [address] [facility] [id number] [address] [place] [address] May, Anticoagulant long-term use Z79.01 [place] [address] [facility] [id number] [address] [place] [address] May, Anticoagulant long-term use Z79.01 [facility] [address] [facility] [id number] [address] [place] [address] May, [facility] [address] [facility] [id number] [address] [place] [address] Apr, [facility] [address] [facility] [id number] [address] [place] [address] Mar, [facility] [id number] [place] [address] Mar, [facility] [address] [place] [id number] [address] [place] [address] Feb, Anticoagulant long-term use Z79.01 [facility] [address] [address] 16 Feb, 2015 Chronic prescription opiate use Z79.899 ; Other chronic pain G89.29 ; Hyperlipidemia, group D E78.3 ; Factor V Leiden D68.51 and Anticoagulant long- term use Z79.01 [place] [address] [address] Feb, [place] [address] [address] Jan, [place] [address] [address] Dec, Hyperlipidemia, unspecified E78.5 [place] [address] [place] [id number] [address] [place] [address] Dec, Cellulitis of left lower ext remity L03.116 ; Venous stasis ulcers, left I83.029 and Factor V Leiden D68.51 [place] [address] [place] [id number] [address] [place] [address] Dec, Hyperlipidemia 272.4 and Fac tor 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 [place] [address] [address] Dec, [place] [address] [place] [id number] [address] [place] [address] Nov, 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 [place] [address] [place] [id number] [address] [place] [address] Nov, [facility] [address] [facility] [id number] [address] [place] [address] Nov, [facility] [address] [facility] [id number] [address] [place] [address] Nov, [facility] [address] [facility] [id number] [address] [place] [address] Oct, [facility] [address] [place] [id number] [address] [place] [address] Oct, Hyperlipidemia 272.4 ; Chron ic pain disorder 338.4 ; Venous stasis ulcer of left lower extremity 454.0 and 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 [facility] [address] [place] [id number] [address] [place] [address] Sep, [facility] [address] [address] Sep, [facility] [address] [place] [id number] [address] [place] [address] Sep, Hyperlipidemia 272.4 and Fac tor 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 [facility] [address] [place] [id number] [address] [place] [address] Aug, [facility] [address] [place] [id number] [address] [place] [address] Aug, 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 [facility] [address] [place] [address] July, [facility] [address] [place] [id number] [address] [place] [address] July, Essential hypertension, fito gn 401.1 ; 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 ; Chronic pain disorder 338.4 ; Hyperlipidemia 272.4 and Venous stasis ulcer of left lower extremity 454.0 [facility] [address] [place] [id number] [address] [place] [address] Jun, [facility] [address] [id number] [address] [place] [address], [place] [address] 13 Jun, 2014 [facility] [address] [id number] [address] [place] [address], [place] [address] 13 May, 2014 [facility] [address] [id number] [address] [place] [address], [place] [address] 13 May, 2014 [facility] [address] [id number] [address] [place] [address], [place] [address] 20 Apr, 2014 [facility] [address] [id number] [address] [place] [address], [place] [address] 20 Apr, 2014 [facility] [address] [id number] [address] [place] [address], [place] [address] 18 Apr, 2014 [facility] [address] [id number] [address] [place] [address], [place] [address] 18 Apr, 2014 [facility] [address] [id number] [address] [place] [address], [place] [address] 13 Apr, 2014 [facility] [address] [id number] [address] [place] [address], [place] [address] Apr, [facility] [address] [id number] [address] [place] [address], [place] [address] Mar, [facility] [address] [id number] [address] [place] [address], [place] [address] 15 Mar, 2014 [facility] [address] [id number] [address] [place] [address], [place] [address] Mar, [facility] [address] [id number] [address] [place] [address], [place] [address] Mar, [facility] [address] [id number] [address] [place] [address], [place] [address] Feb, [facility] [address] [id number] [address] [place] [address], [place] [address] 17 Feb, 2014 [facility] [address] [id number] [address] [place] [address], [place] [address] Feb, [facility] [address] [id number] [address] [place] [address], [place] [address] Feb, [facility] [address] [id number] [address] [place] [address], [place] [address] Jan, [facility] [address] [id number] [address] [place] [address], [place] [address] Jan, [facility] [address] [id number] [address] [place] [address], [place] [address] Jan, [facility] [address] [id number] [address] [place] [address], [place] [address] Jan, [facility] [address] [id number] [address] [place] [address], [place] [address] Jan, [facility] [address] [id number] [address] [place] [address], [place] [address] Jan, [facility] [address] [id number] [address] [place] [address], [place] [address] Dec, [facility] [address] [id number] [address] [place] [address], [place] [address] Dec, [facility] [address] [id number] [address] [place] [address], [place] [address] Oct, [facility] [address] [id number] [address] [place] [address], [place] [address] Oct, [facility] [address] [id number] [address] [place] [address], [place] [address] Sep, [facility] [address] [id number] [address] [place] [address], [place] [address] Sep, [facility] [address] [id number] [address] [place] [address], [place] [address] Sep, [facility] [address] [id number] [address] [place] [address], [place] [address] Sep, [facility] [address] [id number] [address] [place] [address], [place] [address] Aug, [facility] [address] [id number] [address] [place] [address], [place] [address] Aug, [facility] [address] [id number] [address] [place] [address], [place] [address] July, [facility] [address] [id number] [address] [place] [address], [place] [address] July, [facility] [address] [id number] [address] [place] [address], [place] [address] Jun, [facility] [address] [id number] [address] [place] [address], [place] [address] Jun, [facility] [address] [id number] [address] [place] [address], [place] [address] May, [facility] [address] [id number] [address] [place] [address], [place] [address] May, [facility] [address] [id number] [address] [place] [address], [place] [address] Apr, [facility] [address] [id number] [address] [place] [address], [place] [address] Apr, [facility] [address] [id number] [address] [place] [address], [place] [address] Mar, [facility] [address] [id number] [address] [place] [address], [place] [address] Mar, [facility] [address] [id number] [address] [place] [address], [place] [address] Jan, [facility] [address] [id number] [address] [place] [address], [place] [address] Jan, [facility] [address] [id number] [address] [place] [address], [place] [address] Jan, [facility] [address] [id number] [address] [place] [address], [place] [address] Jan, [facility] [address] [id number] [address] [place] [address], [place] [address] Jan, [facility] [address] [id number] [address] [place] [address], [place] [address] Dec, [facility] [address] [id number] [address] [place] [address], [place] [address] Dec, [facility] [address] [id number] [address] [place] [address], [place] [address] Dec, [facility] [address] [id number] [address] [place] [address], [place] [address] Nov, [facility] [address] [id number] [address] [place] [address], [place] [address] Nov, [facility] [address] [id number] [address] [place] [address], [place] [address] Sep, [facility] [address] [id number] [address] [place] [address] Sep, [facility] [address] [id number] [address] [place] [address], [place] [address] Aug, [facility] [address] [id number] [address] [place] [address] Aug, [facility] [address] [id number] [place] [id number] July, [facility] [place] [address] [id number] [place] [id number] Jun, [facility] [place] [address] [id number] [place] [id number] Apr, [facility] [place] [address] [id number] [place] [id number] Mar, [facility] [address] [id number] [address] [place] [address], [place] [address] Mar, [facility] [address] [id number] [place] [id number] Mar, [facility] [address] [id number] [address] [place] [address] Mar, [facility] [place] [address] [id number] [place] [id number] Feb, [facility] [address] [facility] [id number] [address] [place] [address] Feb, [facility] [place] [address] [id number] [place] [id number] Feb, [facility] [address] [id number] [address] [place] [address] Feb, [facility] [place] [address] [id number] [place] [id number] Oct, [facility] [place] [address] [id number] [place] [id number] Oct, [facility] [place] [address] [id number] [place] [id number] July, [facility] [place] [address] [id number] [place] [id number] July, [facility] [place] [address] [id number] [place] [id number] Jun, [facility] [place] [address] [id number] [place] [id number] Jun, [facility] [place] [address] [id number] [place] [id number] Jun, [facility] [place] [address] [id number] [place] [id number] Mar, [facility] [place] [address] [id number] [place] [id number] Mar, [facility] [address] [facility] [id number] [address] [place] [address] Feb, [facility] [address] [facility] [id number] [address] [place] [address] Feb, [facility] [address] [facility] [id number] [address] [place] [address] Jan, [facility] [address] [facility] [id number] [address] [place] [address] Jan, [facility] [address] [facility] [id number] [address] [place] [address] Jan, [facility] [address] [facility] [id number] [address] [place] [address] Jan, [facility] [address] [facility] [id number] [address] [place] [address] Jan, [facility] [address] [facility] [id number] [address] [place] [address] Aug, [facility] [address] [facility] [id number] [address] [place] [id number] 17 Apr, 2010 IMMUNIZATIONS No Known Immunizations SOCIAL HISTORY Never Assessed REASON FOR VISIT PLAN OF CARE VITAL SIGNS Height 75.5 in 2012-12-20 Weight 263.9 lbs 2012-12-20 Temperature 98 degrees Fahrenheit 2012-12-20 Heart Rate 68 bpm 2012-12-20 Respiratory Rate 16 2012-12-20 Blood pressure systolic 140 mmHg 2012-12-20 Blood pressure diastolic 88 mmHg 2012-12-20 MEDICATIONS Unknown Medications RESULTS No Results PROCEDURES Procedure Date Ordered Result Body Site VENIPUNCT, ROUTINE* Dec 20, 2012 PROTHROMBIN TIME Dec 20, 2012 LIPID PANEL Dec 20, 2012 INSTRUCTIONS MEDICATIONS ADMINISTERED No Known Medications [...]
--- OUTSIDE RECORDS SUMMARY | 2019-11-08 12:56 | XMS REPORT ---
Author Author Zana ORTIZ Organization [facility] Address [address] [place] [address] Care Team Providers Care Parts Identification Technician Name Role Phone AVANI ORTIZ Unavailable PROBLEMS Type Condition ICD9-CM Code VBY83-FA Code Onset Dates Condition S tatus SNOMED Code Problem Factor V Leiden D68.51 Active 3070 85996 Problem Anticoagulant long-term use Z79.01 Ac tive 705711950 Problem Post-phlebitic syndrome I87.009 Active 63501348 Problem 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 20426637 Problem Other chronic pain G89.29 Active 8 3367549 Problem Venous stasis ulcers, left I83.029 Act ozzy 472439124 Problem Essential hypertension I10 Active 80154651 Problem Venous anomaly Q27.9 Active 10749 4003 Problem Congenital single kidney Q60.0 Activ e 97539122 Problem Chronic prescription opiate use Z79.899 Active 717888134 Problem Pure hypercholesterolemia E78.00 Acti ve [id number] ALLERGIES No Information ENCOUNTERS Encounter Location Date Diagnosis [facility] [address] [facility] [id number] [address] [place] [phone] July, [facility] [address] [facility] [id number] [address] [place] [address] Jun, Other chronic pain G89.29 [facility] [address] [facility] [id number] [address] [place] [address] Jun, Anticoagulant long-term use Z79.01 [facility] [address] [facility] [id number] [place] [address] [id number] May, Anticoagulant long-term use Z79.01 [facility] [address] [facility] [id number] [address] [place] [address] May, Other chronic pain G89.29 [facility] [address] [facility] [id number] [address] [place] [address] 03 May, 2019 Anticoagulant long-term use Z79.01 [facility] [address] [id number], [place] [id number] Apr, Anticoagulant long-term use Z79.01 [facility] [address] [facility] [id number] [address] [place] [address] Apr, Other chronic pain G89.29 [place] [address] [facility] [id number] [address] [place] [address] 19 Apr, 2019 Anticoagulant long-term use Z79.01 [facility] [place] [address] [facility] [id number] [place] [address] [id number] Apr, Anticoagulant long-term use Z79.01 [facility] [place] [address] [facility] [id number][place] [id number] Apr, Factor V Leiden D68.51 [place] [address] [facility] [id number] [address] [place] [address] Mar, Anticoagulant long-term use Z79.01 [place] [address] [facility] [id number] [address] [place] [address] Mar, Factor V Leiden D68.51 [place] [address] [facility] [id number] [address] [place] [address] Mar, Occult blood positive stool R19.5 [place] [address] [facility] [id number] [address] [place] [address] Mar, Other chronic pain G89.29 [place] [address] [facility] [id number] [address] [place] [address] Mar, Factor V Leiden D68.51 and A nticoagulant long-term use Z79.01 [facility] [address] [id number], [place] [id number] Mar, Anticoagulant long-term use Z79.01 [facility] [address] [id number], [place] [id number] Mar, Anticoagulant long-term use Z79.01 [facility] [address] [facility] [id number] [address] [place] [address] Mar, Anticoagulant long-term use Z79.01 [facility] [address] [facility] [id number] [address] [place] [address] Mar, Pure hypercholesterolemia E7 8.[address] [facility] [id number] [place] [address] [id number] Mar, Anticoagulant long-term use Z79.01 [facility] [address] [facility] [id number] [address] [place] [address] Mar, Other chronic pain G89.29 [facility] [address] [facility] [id number] [address] [place] [address] Feb, Anticoagulant long-term use Z79.01 and Essential hypertension I10 [facility] [address] [facility] [id number] [address] [place] [address] Feb, Anticoagulant long-term use Z79.01 ; Essential hypertension I10 ; Chronic prescription opiate use Z79.899 ; Other chronic pain G89.29 ; Venous stasis ulcers, left I83.029 ; 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.09X0 and Pure hypercholesterolemia E78.00 [facility] [address] [id number], [place] [id number] Feb, Anticoagulant long-term use Z79.01 [facility] [address] [facility] [id number] [address] [place] [address] Feb, Anticoagulant long-term use Z79.01 [facility] [address] [facility] [id number] [address] [place] [address] Feb, Other chronic pain G89.29 [facility] [address] [id number], [place] [id number] Feb, Anticoagulant long-term use Z79.01 [facility] [address] [facility] [id number] [address] [place] [address] Jan, Anticoagulant long-term use Z79.[address] [facility] [address] [id number], [place] [id number] Jan, Anticoagulant long-term use Z79.[address] [facility] [address] [id number], [place] [id number] Jan, Anticoagulant long-term use Z79.01 [facility] [address] [facility] [id number] [address] [place] [address] Jan, Anticoagulant long-term use Z79.[address] [facility] [address] [id number], [place] [id number] Jan, Anticoagulant long-term use Z79.01 [facility] [address] [facility] [id number] [address] [place] [address] Jan, Anticoagulant long-term use Z79.01 [facility] [address] [id number], [place] [id number] Jan, Anticoagulant long-term use Z79.01 [facility] [address] [facility] [id number] [address] [place] [address] Jan, [facility] [address] [id number], [place] [id number] Jan, Anticoagulant long-term use Z79.01 [facility] [address] [facility] [id number] [address] [place] [address] Jan, [facility] [address] [facility] [id number] [address] [place] [address] Jan, Other chronic pain G89.29 [facility] [address] [facility] [id number] [address] [place] [address] Jan, Anticoagulant long-term use Z79.01 [facility] [address] [id number], [place] [id number] Dec, Anticoagulant long-term use Z79.01 [facility] [address] [facility] [id number] [address] [place] [address] Dec, Anticoagulant long-term use Z79.[address] [facility] [address] [id number], [place] [id number] Dec, Anticoagulant long-term use Z79.01 [facility] [address] [id number], [place] [id number] Dec, Anticoagulant long-term use Z79.01 [facility] [address] [facility] [id number] [address] [place] [address] Dec, Anticoagulant long-term use Z79.01 [facility] [address] [facility] [id number] [address] [place] [phone] Dec, Anticoagulant long-term use Z79.01 [facility] [address] [facility] [id number] [address] [place] [address] Dec, Anticoagulant long-term use Z79.01 [facility] [address] [facility] [id number] [address] [place] [address] Dec, Other chronic pain G89.29 [facility] [address] [facility] [id number] [address] [place] [address] Dec, Anticoagulant long-term use Z79.01 [facility] [address] [facility] [id number] [address] [place] [address] Dec, [facility] [address] [facility] [id number] [address] [place] [address] Dec, Other chronic pain G89.29 [facility] [address] [id number], [place] [id number] Dec, Anticoagulant long-term use Z79.01 [facility] [address] [facility] [id number] [address] [place] [address] Nov, Anticoagulant long-term use Z79.01 [facility] [address] [id number], [place] [id number] Nov, Anticoagulant long-term use Z79.01 [facility] [address] [facility] [id number] [address] [place] [address] Nov, Anticoagulant long-term use Z79.01 [facility] [address] [facility] [id number] [address] [place] [address] Nov, Other chronic pain G89.29 [facility] [address] [facility] [id number] [address] [place] [address] Nov, Other chronic pain G89.29 [place] [address] [facility] [id number] [address] [place] [address] Nov, Anticoagulant long-term use Z79.01 [facility] [address] [id number], [place] [id number] Nov, Factor V Leiden D68.51 [facility] [address] [id number], [place] [id number] Nov, Factor V Leiden D68.51 [place] [address] [facility] [id number] [address] [place] [address] Nov, Anticoagulant long-term use Z79.01 [facility] [id number] [place] [address] [id number] Nov, Anticoagulant long-term use Z79.01 [facility] [address] [facility] [id number] [address] [place] [address] Nov, Essential hypertension I10 ; Factor V Leiden D68.51 and Anticoagulant long-term use Z79.01 [facility] [address] [id number], [place] [id number] Oct, Anticoagulant long-term use Z79.01 [facility] [address] [facility] [id number] [address] [place] [phone] Oct, [facility] [address] [facility] [id number] [address] [place] [address] Oct, Anticoagulant long-term use Z79.01 [facility] [address] [id number] [address] [place] [address] Oct, Other chronic pain G89.29 [facility] [address] [id number] [address] [place] [address] Oct, Anticoagulant long-term use Z79.01 [facility] [address] [id number] [address] [place] [address] Oct, [facility] [address] [facility] [id number] [address] [place] [address] Sep, Anticoagulant long-term use Z79.[address] [facility] [id number] [place] [address] [id number] Sep, Anticoagulant long-term use Z79.01 [facility] [address] [facility] [id number] [address] [place] [address] Sep, Other chronic pain G89.29 [facility] [address] [facility] [id number] [address] [place] [phone] Sep, Anticoagulant long-term use Z79.[address] [facility] [id number] [place] [address] [id number] Sep, Anticoagulant long-term use Z79.01 [facility] [address] [facility] [id number] [address] [place] [address] Aug, Anticoagulant long-term use Z79.01 [facility] [address] [id number] [address] [place] [address] Aug, Anticoagulant long-term use Z79.01 [facility] [address] [facility] [id number] [address] [place] [phone] Aug, Other chronic pain G89.29 [facility] [address] [facility] [id number] [address] [place] [address] Aug, Other chronic pain G89.29 ; Anticoagulant long-term use Z79.01 ; 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.09X0 ; Oral pain K13.79 ; Dental infection K04.7 ; Essential hypertension I10 and Pure hypercholesterolemia E78.00 [facility] [address] [id number] [address] [place] [address] July, Other chronic pain G89.29 [facility] [address] [facility] [id number] [address] [place] [address] Jun, Other chronic pain G89.29 [facility] [address] [id number] [address] [place] [phone] Jun, [facility] [address] [facility] [id number] [address] [place] [address] Jun, [facility] [address] [id number], [place] [id number] Jun, Anticoagulant long-term use Z79.01 and I diopathic chronic gout of multiple 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 tophus M1A.09X0 [place] [address] [id number] [address] [place] [address] May, Other chronic pain G89.29 [place] [address] [facility] [id number] [address] [place] [address] May, [facility] [address] [facility] [id number] [address] [place] [address] May, Anticoagulant long-term use Z79.01 [facility] [address] [id number] [address] [place] [address] May, [facility] [address] [id number], [place] [id number] May, Anticoagulant long-term use Z79.01 [facility] [address] [id number] [address] [place] [address] May, Anticoagulant long-term use Z79.01 [place] [address] [facility] [id number] [address] [place] [address] May, Anticoagulant long-term use Z79.01 [facility] [address] [id number], [place] [id number] May, Factor V Leiden D68.51 [place] [address] [facility] [id number] [address] [place] [address] Apr, Other chronic pain G89.29 [place] [address] [place] [id number] [address] [place] [address] Apr, Idiopathic chronic gout of m ultiple 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 tophus M1A.09X0 [facility] [address] [id number], [place] [id number] Apr, Anticoagulant long-term use Z79.01 [facility] [address] [id number], [place] [id number] Apr, Anticoagulant long-term use Z79.01 ; Med ication side effect T88.7XXA and 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.09X0 [place] [address] [place] [id number] [address] [place] [address] Apr, [place] [address] [place] [id number] [address] [place] [address] Apr, Anticoagulant long-term use Z79.01 [place] [address] [place] [address] Apr, Medication side effect T88.7 XXA and Factor V Leiden D68.51 [place] [address] [facility] [id number] [address] [place] [address] Apr, Idiopathic chronic gout of m ultiple 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 tophus M1A.09X0 and Anticoagulant long-term use Z79.01 [facility] [address] [id number], [place] [id number] Mar, Factor V Leiden D68.51 and Anticoagulant long-term use Z79.01 [place] [address] [facility] [id number] [address] [place] [address] Mar, Factor V Leiden D68.51 ; Ant icoagulant long-term use Z79.01 ; 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.09X0 ; Pure hypercholesterolemia E78.00 ; Other chronic pain G89.29 and BMI 40.0-44.9, adult Z68.41 [facility] [address] [facility] [id number] [address] [place] [address] Mar, [place] [address] [facility] [id number] [address] [place] [address] Mar, Other chronic pain G89.29 [place] [address] [facility] [id number] [address] [place] [address] Feb, Idiopathic chronic gout of m ultiple 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 tophus M1A.09X0 [address] [id number] [place] [address] [id number] Feb, Anticoagulant long-term use Z79.01 and I diopathic chronic gout of multiple 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 tophus M1A.09X0 [place] [address] [facility] [id number] [address] [place] [address] Feb, Anticoagulant long-term use Z79.01 and 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.09X0 [place] [address] [facility] [id number] [address] [place] [address] Feb, [facility] [address] [facility] [id number] [address] [place] [address] Feb, Other chronic pain G89.29 [place] [address] [facility] [id number] [address] [place] [address] Jan, Other chronic pain G89.29 [place] [address] [facility] [id number] [address] [place] [address] Dec, Other chronic pain G89.29 [place] [address] [facility] [id number] [address] [place] [address] 05 Dec, 2017 Anticoagulant long-term use Z79.01 [facility] [address] [facility] [id number] [address] [place] [address] 03 Dec, 2017 Chronic prescription opiate use Z79.899 ; Factor V Leiden D68.51 ; Other chronic pain G89.29 and Anticoagulant long-term use Z79.01 [facility] [address] [facility] [id number] [address] [place] [address] 12 Nov, 2017 Other chronic pain G89.29 [facility] [address] [facility] [id number] [address] [place] [address] Oct, Other chronic pain G89.29 [place] [address] [place] [id number] [address] [place] [address] Sep, Other chronic pain G89.29 [place] [address] [place] [id number] [address] [place] [address] Aug, Other chronic pain G89.29 [place] [address] [place] [id number] [address] [place] [address] Aug, Venous stasis ulcers, left I 83.029 [place] [address] [place] [id number] [address] [place] [address] July, Other chronic pain G89.29 [place] [address] [facility] [id number] [address] [place] [address] July, Venous stasis ulcers, left I 83.029 and Snoring R06.83 [place] [address] [facility] [id number] [address] [place] [address] Jun, Idiopathic chronic gout of m ultiple 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 tophus M1A.09X0 [facility] [address] [facility] [id number] [address] [place] [address] Jun, Acute renal insufficiency N2 8.9 [place] [address] [place] [id number] [address] [place] [address] Jun, Other chronic pain G89.29 [facility] [address] [facility] [id number] [address] [place] [address] Jun, Acute renal insufficiency N2 8.9 [place] [id number] [facility] [id number], [place] [id number] 16 Jun, 2017 Idiopathic chronic gout of multiple site s without tophus M1A.09X0 ; Essential hypertension I10 and Anticoagulant long-term use Z79.01 [place] [address] [facility] [id number] [address] [place] [address] Jun, Anticoagulant long-term use Z79.01 and Essential hypertension I10 [place] [address] [facility] [id number] [address] [place] [phone] May, Idiopathic chronic gout of m ultiple 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 tophus M1A.09X0 [place] [address] [address] [facility] [id number] [address] [place] [phone] May, [place] [address] [address] [facility] [id number] [address] [place] [phone] May, Essential hypertension I10 ; Pure hypercholesterolemia E78.00 ; Anticoagulant long-term use Z79.01 and 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.09X0 [place] [address] [address] [facility] [id number] [address] [place] [phone] May, Other chronic pain G89.29 [place] [address] [address] [facility] [id number] [address] [place] [phone] May, Anticoagulant long-term use Z79.01 [place] [address] [address] [facility] [id number] [address] [place] [phone] May, Chronic prescription opiate use Z79.899 ; Other chronic pain G89.29 ; Essential hypertension I10 ; Factor V Leiden D68.51 ; Anticoagulant long-term use Z79.01 ; Pure hypercholesterolemia E78.00 ; Venous stasis ulcers, left I83.029 ; 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.09X0 and Cellulitis of left lower extremity L03.116 [facility] [address] [id number] [address] [place] [phone] Apr, Other chronic pain G89.29 [facility] [address] [id number] [address] [place] [phone] Mar, Other chronic pain G89.29 [facility] [address] [facility] [id number] [address] [place] [phone] Mar, Factor V Leiden D68.51 ; Pur e hypercholesterolemia E78.00 and Other chronic pain G89.29 [place] [address] [address] [facility] [id number] [address] [place] [phone] Feb, Other chronic pain G89.29 [place] [address] [address] [facility] [id number] [address] [place] [phone] Jan, Idiopathic chronic gout of m ultiple 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 tophus M1A.09X0 [facility] [address] [facility] [id number] [address] [place] [phone] Jan, Other chronic pain G89.29 [place] [address] [address] [facility] [id number] [address] [place] [phone] Dec, Anticoagulant long-term use Z79.01 ; Factor V Leiden D68.51 and Other chronic pain G89.29 [place] [address] [address] [facility] [id number] [address] [place] [phone] Dec, Other chronic pain G89.29 [facility] [address] [facility] [id number] [address] [place] [phone] Nov, Other chronic pain G89.29 [facility] [address] [facility] [id number] [address] [place] [phone] Oct, Other chronic pain G89.29 [place] [address] N [facility] [id number] [address] [place] [address] Sep, Anticoagulant long-term use Z79.01 [facility] [address] [facility] [id number] [address] [place] [address] Sep, Chronic prescription opiate use Z79.899 ; Anticoagulant long-term use Z79.01 ; Essential hypertension I10 ; Pure hypercholesterolemia E78.00 ; Factor V Leiden D68.51 ; Venous stasis ulcers, left I83.029 ; Other chronic pain G89.29 and 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.09X0 [place] [address] [address] [facility] [id number] [address] [place] [address] Aug, Anticoagulant long-term use Z79.01 [place] [address] [address] [facility] [id number] [address] [place] [address] Aug, Other chronic pain G89.29 [place] [address] [address] [facility] [id number] [address] [place] [address] Aug, Essential hypertension I10 a nd Factor V Leiden D68.[id number] [place] [id number] Aug, Acute right ankle pain M25.571 and Tendo nitis of ankle M77.50 [place] [address] [address] [facility] [id number] [address] [place] [address] Aug, [place] [address] [address] [facility] [id number] [address] [place] [address] July, Other chronic pain G89.29 [place] [address] [address] [facility] [id number] [address] [place] [address] Jun, Other chronic pain G89.29 [place] [address] [address] [facility] [id number] [address] [place] [address] Jun, Other chronic pain G89.29 [place] [address] [address] [facility] [id number] [address] [place] [address] Jun, Anticoagulant long-term use Z79.01 [place] [address] [address] [facility] [id number] [address] [place] [address] May, Other chronic pain G89.29 [facility] [address] [facility] [id number] [address] [place] [address] May, Anticoagulant long-term use Z79.01 [facility] [address] [facility] [id number] [address] [place] [address] May, Other chronic pain G89.29 [facility] [address] [facility] [id number] [address] [place] [address] Apr, Anticoagulant long-term use Z79.01 [place] [address] [address] [facility] [id number] [address] [place] [address] Apr, Other chronic pain G89.29 [place] [address] [address] [facility] [id number] [address] [place] [address] Apr, Anticoagulant long-term use Z79.01 and Pure hypercholesterolemia E78.00 [place] [address] [id number] Mar, [place] [address] [address] [place] [id number] [address] [place] [address] Mar, Anticoagulant long-term use Z79.01 [place] [address] [address] [place] [id number] [address] [place] [address] Mar, Other chronic pain G89.29 [place] [address] [address] [place] [id number] [address] [place] [address] Feb, Essential hypertension I10 ; Chronic prescription opiate use Z79.899 ; Other chronic pain G89.29 ; Screening Z13.9 ; Factor V Leiden D68.51 ; Anticoagulant long-term use Z79.01 ; Venous stasis dermatitis of left lower extremity I83.12 and Pure hypercholesterolemia E78.00 [place] [address] [address] [facility] [id number] [address] [place] [address] Jan, Anticoagulant long-term use Z79.01 [place] [address] [address] [facility] [id number] [address] [place] [address] Jan, Anticoagulant long-term use Z79.01 [facility] [address] [facility] [id number] [address] [place] [address] Jan, [facility] [address] [facility] [id number] [address] [place] [address] Jan, [facility] [address] [facility] [id number] [address] [place] [address] Dec, [facility] [address] [facility] [id number] [address] [place] [address] Nov, [facility] [address] [facility] [id number] [address] [place] [address] Oct, Anticoagulant long-term use Z79.01 [facility] [address] [facility] [id number] [address] [place] [address] Oct, [facility] [address] [address] Oct, Anticoagulant long-term use Z79.01 [facility] [address] [facility] [id number] [address] [place] [address] Sep, [facility] [address] [facility] [id number] [address] [place] [address] Aug, [facility] [address] [facility] [id number] [address] [place] [address] Aug, Chronic prescription opiate use Z79.899 ; Other chronic pain G89.29 ; Essential hypertension I10 and Pure hypercholesterolemia E78.0 [facility] [address] [facility] [id number] [address] [place] [address] July, Hyperlipidemia, group D E78. 3 and Anticoagulant long-term use Z79.01 [facility] [address] [facility] [id number] [address] [place] [address] July, Hyperlipidemia, group D E78. 3 ; Essential hypertension I10 and Factor V Leiden D68.51 [facility] [address] [place] [id number] [address] [place] [address] July, Essential hypertension I10 [facility] [address] [facility] [id number] [address] [place] [address] Jun, Hyperlipidemia, group D E78. 3 [facility] [address] [facility] [id number] [address] [place] [address] Jun, Factor V Leiden D68.51 [facility] [address] [place] [id number] [address] [place] [address] May, Factor V Leiden D68.51 ; Hyp erlipidemia, group D E78.3 ; Essential hypertension I10 ; Other chronic pain G89.29 and Anticoagulant long-term use Z79.01 [place] [address] [address] May, Anticoagulant long-term use Z79.01 [place] [address] [address] [place] [id number] [address] [place] [address] May, Anticoagulant long-term use Z79.01 [facility] [id number] [place] [address] May, [facility] [address] [place] [id number] [address] [place] [address] Apr, [facility] [address] [place] [id number] [address] [place] [address] Mar, [facility] [address] [place] [id number] [address] [place] [address] Mar, [facility] [address] [facility] [id number] [address] [place] [address] Feb, Anticoagulant long-term use Z79.01 [facility] [address] [facility] [id number] [address] [place] [address] Feb, Chronic prescription opiate use Z79.899 ; Other chronic pain G89.29 ; Hyperlipidemia, group D E78.3 ; Factor V Leiden D68.51 and Anticoagulant long- term use Z79.01 [facility] [address] [address] Feb, [place] [address] [address] Jan, [facility] [address] [address] Dec, Hyperlipidemia, unspecified E78.5 [place] [address] [address] Dec, Cellulitis of left lower ext remity L03.116 ; Venous stasis ulcers, left I83.029 and Factor V Leiden D68.51 [place] [address] [address] Dec, Hyperlipidemia 272.4 and Fac tor 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 [place] [address] [address] Dec, [facility] [address] [address] Nov, 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 [place] [address] [address] Nov, [place] [address] [address] Nov, [place] [address] [address] Nov, [facility] [address] [address] Oct, [facility] [address] [address] Oct, Hyperlipidemia 272.4 ; Chron ic pain disorder 338.4 ; Venous stasis ulcer of left lower extremity 454.0 and 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 [place] [address] [address] Sep, [facility] [address] [id number] [address] [place] [address] Sep, [facility] [address] [id number] [address] [place] [address] Sep, Hyperlipidemia 272.4 and Fac tor 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 [facility] [address] [id number] [address] [place] [address] Aug, [facility] [address] [id number] [address] [place] [address] Aug, 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 [facility] [address] [id number] [address] [place] [address] July, [facility] [address] [facility] [id number] [address] [place] [address] July, Essential hypertension, fito gn 401.1 ; 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 ; Chronic pain disorder 338.4 ; Hyperlipidemia 272.4 and Venous stasis ulcer of left lower extremity 454.0 [facility] [address] [facility] [id number] [address] [place] [address] Jun, [facility] [address] [facility] [id number] [address] [place] [address] Jun, [facility] [address] [facility] [id number] [address] [place] [address] May, [facility] [address] [id number] [address] [place] [address] May, [facility] [address] [facility] [id number] [address] [place] [address] Apr, [facility] [address] [id number] [address] [place] [address] Apr, [facility] [address] [facility] [id number] [address] [place] [address] Apr, [facility] [address] [id number] [address] [place] [address], [place] [address] 18 Apr, 2014 [facility] [address] [id number] [address] [place] [address], [place] [address] 13 Apr, 2014 [facility] [address] [id number] [address] [place] [address], [place] [address] 13 Apr, 2014 [facility] [address] [id number] [address] [place] [address], [place] [address] 15 Mar, 2014 [facility] [address] [id number] [address] [place] [address], [place] [address] 15 Mar, 2014 [facility] [address] [id number] [address] [place] [address], [place] [address] Mar, [facility] [address] [id number] [address] [place] [address], [place] [address] Mar, [facility] [address] [id number] [address] [place] [address], [place] [address] 17 Feb, 2014 [facility] [address] [id number] [address] [place] [address], [place] [address] 17 Feb, 2014 [facility] [address] [id number] [address] [place] [address], [place] [address] 16 Feb, 2014 [facility] [address] [id number] [address] [place] [address], [place] [address] 16 Feb, 2014 [facility] [address] [id number] [address] [place] [address], [place] [address] 24 Jan, 2014 [facility] [address] [id number] [address] [place] [address], [place] [address] 19 Jan, 2014 [facility] [address] [id number] [address] [place] [address], [place] [address] 19 Jan, 2014 [facility] [address] [id number] [address] [place] [address], [place] [address] 14 Jan, 2014 [facility] [address] [id number] [address] [place] [address], [place] [address] Jan, [facility] [address] [id number] [address] [place] [address], [place] [address] Jan, [facility] [address] [id number] [address] [place] [address], [place] [address] Dec, [facility] [address] [id number] [address] [place] [address], [place] [address] Dec, [facility] [address] [id number] [address] [place] [address], [place] [address] Oct, [facility] [address] [id number] [address] [place] [address], [place] [address] Oct, [facility] [address] [id number] [address] [place] [address], [place] [address] Sep, [facility] [address] [id number] [address] [place] [address], [place] [address] Sep, [facility] [address] [id number] [address] [place] [address], [place] [address] Sep, [facility] [address] [id number] [address] [place] [address], [place] [address] Sep, [facility] [address] [id number] [address] [place] [address], [place] [address] Aug, [facility] [address] [id number] [address] [place] [address], [place] [address] Aug, [facility] [address] [id number] [address] [place] [address], [place] [address] July, [facility] [address] [id number] [address] [place] [address], [place] [address] July, [facility] [address] [id number] [address] [place] [address], [place] [address] Jun, [facility] [address] [id number] [address] [place] [address], [place] [address] Jun, [facility] [address] [id number] [address] [place] [address], [place] [address] May, [facility] [address] [id number] [address] [place] [address], [place] [address] May, [facility] [address] [id number] [address] [place] [address], [place] [address] Apr, [facility] [address] [id number] [address] [place] [address], [place] [address] Apr, [facility] [address] [id number] [address] [place] [address], [place] [address] Mar, [facility] [address] [id number] [address] [place] [address], [place] [address] Mar, [facility] [address] [id number] [address] [place] [address], [place] [address] Jan, [facility] [address] [id number] [address] [place] [address] Jan, [facility] [address] [id number] [address] [place] [place] [address], [place] [address] Jan, [facility] [address] [id number] [address] [place] [address], [place] [address] Jan, [facility] [address] [id number] [address] [place] [address], [place] [address] Jan, [facility] [address] [id number] [address] [place] [address], [place] [address] Dec, [facility] [address] [id number] [address] [place] [address] Dec, [facility] [address] [id number] [address] [place] [address], [place] [address] Dec, [facility] [address] [id number] [address] [place] [address], [place] [address] Nov, [facility] [address] [id number] [address] [place] [address], [place] [address] Nov, [facility] [address] [facility] [id number] [address] [place] [address] Sep, [facility] [address] [facility] [id number] [address] [place] [address] Sep, [facility] [address] [facility] [id number] [address] [place] [address] Aug, [facility] [address] [facility] [id number] [address] [place] [address] Aug, [facility] [address] [id number] [place] [id number] July, [facility] [address] [id number] [place] [id number] Jun, [facility] [address] [id number] [place] [id number] Apr, [facility] [address] [id number] [place] [id number] Mar, [facility] [address] [facility] [id number] [address] [place] [address] Mar, [facility] [address] [id number] [place] [id number] Mar, [facility] [address] [facility] [id number] [address] [place] [address] Mar, [facility] [address] [id number] [place] [id number] Feb, [facility] [address] [facility] [id number] [address] [place] [address] Feb, [facility] [address] [id number] [place] [id number] Feb, [facility] [address] [facility] [id number] [address] [place] [address] Feb, [facility] [address] [id number] [place] [id number] Oct, [facility] [address] [id number] [place] [id number] Oct, [facility] [address] [id number] [place] [id number] July, [facility] [address] [id number] [place] [id number] July, [facility] [address] [id number] [place] [id number] Jun, [facility] [address] [id number] [place] [id number] Jun, [facility] [address] [id number] [place] [id number] Jun, [facility] [address] [id number] [place] [id number] Mar, [facility] [address] [id number] [place] [id number] Mar, [facility] [address] [facility] [id number] [address] [place] [address] Feb, [facility] [address] [facility] [id number] [address] [place] [address] Feb, [facility] [address] [facility] [id number] [address] [place] [address] Jan, [facility] [address] [facility] [id number] [address] [place] [address] Jan, [facility] [address] [facility] [id number] [address] [place] [address] Jan, [facility] [address] [facility] [id number] [address] [place] [address] Jan, [facility] [address] [facility] [id number] [address] [place] [address] Jan, [facility] [address] [facility] [id number] [address] [place] [address] Aug, [facility] [address] [facility] [id number] [address] [place] [address] Apr, IMMUNIZATIONS No Known Immunizations SOCIAL HISTORY [...]
--- OUTSIDE RECORDS SUMMARY | 2019-11-08 12:57 | XMS REPORT ---
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 Name Role Phone AVANI ORTIZ Unavailable PROBLEMS Type Condition ICD9-CM Code [id number] Code Onset Dates Condition S tatus SNOMED Code Problem Factor V Leiden D68.51 Active 3070 07855 Problem Anticoagulant long-term use Z79.01 Ac tive 944859848 Problem Post-phlebitic syndrome I87.009 Active 57951753 Problem 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 17178958 Problem Other chronic pain G89.29 Active 8 9897866 Problem Venous stasis ulcers, left I83.029 Act ozzy 020560593 Problem Essential hypertension I10 Active 65008477 Problem Venous anomaly Q27.9 Active 38175 4003 Problem Congenital single kidney Q60.0 Activ e 95775254 Problem Chronic prescription opiate use Z79.899 Active 205009865 Problem Pure hypercholesterolemia E78.00 Acti ve [id number] ALLERGIES No Information ENCOUNTERS Encounter Location Date Diagnosis [facility] [address] [facility] [id number] [address] [place] [address] July, [facility] [address] [facility] [id number] [address] [place] [address] Jun, Other chronic pain G89.29 [facility] [address] [facility] [id number] [address] [place] [address] Jun, Anticoagulant long-term use Z79.01 [facility] [id number] [place] [address] [id number] May, Anticoagulant long-term use Z79.01 [facility] [address] [facility] [id number] [address] [place] [address] May, Other chronic pain G89.29 [facility] [address] [facility] [id number] [address] [place] [id number] 03 May, 2019 Anticoagulant long-term use Z79.[address] [facility] [address] [id number] [place] [id number] Apr, Anticoagulant long-term use Z79.01 [facility] [address] [facility] [id number] [address] [place] [address] Apr, Other chronic pain G89.29 [place] [id number] [facility] [id number] [address] [place] [address] 19 Apr, 2019 Anticoagulant long-term use Z79.01 [facility] [id number] [place] [address] [id number] Apr, Anticoagulant long-term use Z79.01 [facility] [address] [id number] FE[place] [id number] Apr, Factor V Leiden D68.51 [place] [address] [facility] [id number] [address] [place] [address] Mar, Anticoagulant long-term use Z79.01 [place] [address] [facility] [id number] [address] [place] [address] Mar, Factor V Leiden D68.51 [place] [address] [facility] [id number] [address] [place] [address] Mar, Occult blood positive stool R19.5 [place] [address] [facility] [id number] [address] [place] [address] Mar, Other chronic pain G89.29 [place] [address] [facility] [id number] [address] [place] [address] Mar, Factor V Leiden D68.51 and A nticoagulant long-term use Z79.[address] [facility] [address] [id number] [place] [id number] Mar, Anticoagulant long-term use Z79.01 [facility] [address] [id number] FE[place] [id number] Mar, Anticoagulant long-term use Z79.01 [facility] [address] [facility] [id number] [address] [place] [address] Mar, Anticoagulant long-term use Z79.01 [facility] [address] [facility] [id number] [address] [place] [address] Mar, Pure hypercholesterolemia E7 8.[address] [facility] [id number] [place] [address] [id number] Mar, Anticoagulant long-term use Z79.01 [facility] [address] [facility] [id number] [address] [place] [phone] Mar, Other chronic pain G89.29 [facility] [address] [facility] [id number] [address] [place] [address] Feb, Anticoagulant long-term use Z79.01 and Essential hypertension I10 [facility] [address] [facility] [id number] [address] [place] [address] Feb, Anticoagulant long-term use Z79.01 ; Essential hypertension I10 ; Chronic prescription opiate use Z79.899 ; Other chronic pain G89.29 ; Venous stasis ulcers, left I83.029 ; 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.09X0 and Pure hypercholesterolemia E78.[address] [facility] [address] [id number] FE[place] [id number] Feb, Anticoagulant long-term use Z79.01 [facility] [address] [facility] [id number] [address] [place] [id number] Feb, Anticoagulant long-term use Z79.01 [facility] [address] [facility] [id number] [address] [place] [address] Feb, Other chronic pain G89.29 [facility] [address] [id number] FE[place] [id number] Feb, Anticoagulant long-term use Z79.01 [facility] [address] [facility] [id number] [address] [place] [address] Jan, Anticoagulant long-term use Z79.[address] [facility] [address] [id number] FE[place] [id number] Jan, Anticoagulant long-term use Z79.[address] [facility] [address] [id number] FE, [place] [id number] Jan, Anticoagulant long-term use Z79.01 [facility] [address] [facility] [id number] [address] [place] [address] Jan, Anticoagulant long-term use Z79.[address] [facility] [address] [id number] FE[place] [id number] Jan, Anticoagulant long-term use Z79.01 [facility] [address] [facility] [id number] [address] [place] [address] Jan, Anticoagulant long-term use Z79.01 [facility] [address] [id number] FE[place] [id number] Jan, Anticoagulant long-term use Z79.01 [facility] [address] [facility] [id number] [address] [place] [address] Jan, [facility] [address] [id number] FE[place] [id number] Jan, Anticoagulant long-term use Z79.01 [facility] [address] [facility] [id number] [address] [place] [address] Jan, [facility] [address] [facility] [id number] [address] [place] [address] Jan, Other chronic pain G89.29 [facility] [address] [facility] [id number] [address] [place] [address] Jan, Anticoagulant long-term use Z79.01 [facility] [address] [id number] FE[place] [id number] Dec, Anticoagulant long-term use Z79.01 [facility] [address] [facility] [id number] [address] [place] [address] Dec, Anticoagulant long-term use Z79.[address] [facility] [address] [id number] FE[place] [id number] Dec, Anticoagulant long-term use Z79.01 [facility] [address] [id number] FE, [place] [id number] Dec, Anticoagulant long-term use Z79.01 [facility] [address] [facility] [id number] [address] [place] [address] Dec, Anticoagulant long-term use Z79.01 [facility] [address] [facility] [id number] [address] [place] [address] Dec, Anticoagulant long-term use Z79.01 [facility] [address] [facility] [id number] [address] [place] [address] Dec, Anticoagulant long-term use Z79.01 [facility] [address] [facility] [id number] [address] [place] [address] Dec, Other chronic pain G89.29 [facility] [address] [facility] [id number] [address] [place] [address] Dec, Anticoagulant long-term use Z79.01 [facility] [address] [facility] [id number] [address] [place] [address] Dec, [facility] [address] [facility] [id number] [address] [place] [phone] Dec, Other chronic pain G89.29 [facility] [address] [id number] FE, [place] [id number] Dec, Anticoagulant long-term use Z79.01 [facility] [address] [facility] [id number] [address] [place] [address] Nov, Anticoagulant long-term use Z79.01 [facility] [address] [id number] FE, [place] [id number] Nov, Anticoagulant long-term use Z79.01 [facility] [address] [facility] [id number] [address] [place] [address] Nov, Anticoagulant long-term use Z79.01 [facility] [address] [facility] [id number] [address] [place] [address] Nov, Other chronic pain G89.29 [facility] [address] [facility] [id number] [address] [place] [address] Nov, Other chronic pain G89.29 [place] [address] [facility] [id number] [address] [place] [address] Nov, Anticoagulant long-term use Z79.01 [facility] [address] [id number] FE[place] [id number] Nov, Factor V Leiden D68.51 [facility] [address] [id number] FE[place] [id number] Nov, Factor V Leiden D68.51 [place] [address] [facility] [id number] [address] [place] [address] Nov, Anticoagulant long-term use Z79.01 [facility] [id number] [place] [address] [id number] Nov, Anticoagulant long-term use Z79.01 [facility] [address] [facility] [id number] [address] [place] [address] Nov, Essential hypertension I10 ; Factor V Leiden D68.51 and Anticoagulant long-term use Z79.01 [facility] [address] [id number] FE, [place] [id number] Oct, Anticoagulant long-term use Z79.01 [facility] [address] [facility] [id number] [address] [place] [address] Oct, [facility] [address] [facility] [id number] [address] [place] [address] Oct, Anticoagulant long-term use Z79.01 [facility] [address] [id number] [address] [place] [address] Oct, Other chronic pain G89.29 [facility] [address] [id number] [address] [place] [address] Oct, Anticoagulant long-term use Z79.01 [facility] [address] [id number] [address] [place] [id number] Oct, [facility] [address] [facility] [id number] [address] [place] [address] Sep, Anticoagulant long-term use Z79.01 [facility] [id number] [place] [address] [id number] Sep, Anticoagulant long-term use Z79.01 [facility] [address] [facility] [id number] [address] [place] [address] Sep, Other chronic pain G89.29 [facility] [address] [facility] [id number] [address] [place] [address] Sep, Anticoagulant long-term use Z79.01 [facility] [id number] [place] [address] [id number] Sep, Anticoagulant long-term use Z79.01 [facility] [address] [facility] [id number] [address] [place] [address] Aug, Anticoagulant long-term use Z79.01 [facility] [address] [id number] [address] [place] [address] Aug, Anticoagulant long-term use Z79.01 [facility] [address] [facility] [id number] [address] [place] [address] Aug, Other chronic pain G89.29 [facility] [address] [facility] [id number] [address] [place] [address] Aug, Other chronic pain G89.29 ; Anticoagulant long-term use Z79.01 ; 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.09X0 ; Oral pain K13.79 ; Dental infection K04.7 ; Essential hypertension I10 and Pure hypercholesterolemia E78.00 [facility] [address] [id number] [address] [place] [address] July, Other chronic pain G89.29 [facility] [address] [facility] [id number] [address] [place] [address] Jun, Other chronic pain G89.29 [facility] [address] [id number] [address] [place] [address] Jun, [facility] [address] [facility] [id number] [address] [place] [id number] Jun, [facility] [address] [id number] FE[place] [id number] Jun, Anticoagulant long-term use Z79.01 and I diopathic chronic gout of multiple sites without tophus M1A.09X0 [place] [address] [id number] [address] [place] [id number] May, Other chronic pain G89.29 [place] [address] [facility] [id number] [address] [place] [address] May, [facility] [address] [facility] [id number] [address] [place] [address] May, Anticoagulant long-term use Z79.01 [facility] [address] [id number] [address] [place] [address] May, [facility] [address] [id number] FE, [place] [id number] May, Anticoagulant long-term use Z79.01 [facility] [address] [id number] [address] [place] [address] May, Anticoagulant long-term use Z79.01 [place] [address] [facility] [id number] [address] [place] [address] May, Anticoagulant long-term use Z79.01 [facility] [address] [id number] FE, [place] [id number] May, Factor V Leiden D68.51 [place] [address] [facility] [id number] [address] [place] [address] Apr, Other chronic pain G89.29 [place] [address] [place] [id number] [address] [place] [address] Apr, Idiopathic chronic gout of m ultiple sites without tophus M1A.09X0 [facility] [address] [id number] FE[place] [id number] Apr, Anticoagulant long-term use Z79.01 [facility] [address] [id number] FE[place] [id number] Apr, Anticoagulant long-term use Z79.01 ; Med ication side effect T88.7XXA and 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.09X0 [place] [address] [place] [id number] [address] [place] [address] Apr, [place] [address] [place] [id number] [address] [place] [address] Apr, Anticoagulant long-term use Z79.01 [place] [id number] [place] [address] Apr, Medication side effect T88.7 XXA and Factor V Leiden D68.51 [place] [address] [facility] [id number] [address] [place] [address] Apr, Idiopathic chronic gout of m ultiple sites without tophus M1A.09X0 and Anticoagulant long-term use Z79.01 [facility] [address] [id number] FE, [place] [id number] Mar, Factor V Leiden D68.51 and Anticoagulant long-term use Z79.01 [place] [address] [facility] [id number] [address] [place] [address] Mar, Factor V Leiden D68.51 ; Ant icoagulant long-term use Z79.01 ; 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.09X0 ; Pure hypercholesterolemia E78.00 ; Other chronic pain G89.29 and BMI 40.0-44.9, adult Z68.41 [facility] [address] [facility] [id number] [address] [place] [address] Mar, [place] [address] [facility] [id number] [address] [place] [address] Mar, Other chronic pain G89.29 [place] [address] [facility] [id number] [address] [place] [address] Feb, Idiopathic chronic gout of m ultiple sites without tophus M1A.09X0 [address] [id number] [place] [address] [id number] Feb, Anticoagulant long-term use Z79.01 and I diopathic chronic gout of multiple sites without tophus M1A.09X0 [place] [address] [facility] [id number] [address] [place] [address] Feb, Anticoagulant long-term use Z79.01 and 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.09X0 [place] [address] [facility] [id number] [address] [place] [address] Feb, [facility] [address] [facility] [id number] [address] [place] [address] Feb, Other chronic pain G89.29 [place] [address] [facility] [id number] [address] [place] [address] Jan, Other chronic pain G89.29 [place] [address] [facility] [id number] [address] [place] [address] Dec, Other chronic pain G89.29 [place] [address] [facility] [id number] [address] [place] [address] 05 Dec, 2017 Anticoagulant long-term use Z79.01 [facility] [address] [facility] [id number] [address] [place] [address] 03 Dec, 2017 Chronic prescription opiate use Z79.899 ; Factor V Leiden D68.51 ; Other chronic pain G89.29 and Anticoagulant long-term use Z79.01 [facility] [address] [facility] [id number] [address] [place] [address] 12 Nov, 2017 Other chronic pain G89.29 [facility] [address] [facility] [id number] [address] [place] [address] Oct, Other chronic pain G89.29 [place] [address] [place] [id number] [address] [place] [address] Sep, Other chronic pain G89.29 [place] [address] [place] [id number] [address] [place] [address] Aug, Other chronic pain G89.29 [place] [address] [place] [id number] [address] [place] [address] Aug, Venous stasis ulcers, left I 83.029 [place] [address] [place] [id number] [address] [place] [address] July, Other chronic pain G89.29 [place] [address] [facility] [id number] [address] [place] [address] July, Venous stasis ulcers, left I 83.029 and Snoring R06.83 [place] [address] [facility] [id number] [address] [place] [address] Jun, Idiopathic chronic gout of m ultiple sites without tophus M1A.09X0 [facility] [address] [facility] [id number] [address] [place] [address] Jun, Acute renal insufficiency N2 8.9 [place] [address] [place] [id number] [address] [place] [address] Jun, Other chronic pain G89.29 [facility] [address] [facility] [id number] [address] [place] [address] Jun, Acute renal insufficiency N2 8.9 [place] [id number] [facility] [address] [id number] FE[place] [id number] 16 Jun, 2017 Idiopathic chronic gout of multiple site s without tophus M1A.09X0 ; Essential hypertension I10 and Anticoagulant long-term use Z79.01 [place] [address] [facility] [id number] [address] [place] [address] Jun, Anticoagulant long-term use Z79.01 and Essential hypertension I10 [place] [address] [facility] [id number] [address] [place] [address] May, Idiopathic chronic gout of m ultiple sites without tophus M1A.09X0 [place] [address] [facility] [id number] [address] [place] [address] May, [place] [address] [facility] [id number] [address] [place] [address] May, Essential hypertension I10 ; Pure hypercholesterolemia E78.00 ; Anticoagulant long-term use Z79.01 and 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.09X0 [place] [address] [facility] [id number] [address] [place] [address] May, Other chronic pain G89.29 [place] [address] [facility] [id number] [address] [place] [address] May, Anticoagulant long-term use Z79.01 [place] [address] [facility] [id number] [address] [place] [address] May, Chronic prescription opiate use Z79.899 ; Other chronic pain G89.29 ; Essential hypertension I10 ; Factor V Leiden D68.51 ; Anticoagulant long-term use Z79.01 ; Pure hypercholesterolemia E78.00 ; Venous stasis ulcers, left I83.029 ; 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.09X0 and Cellulitis of left lower extremity L03.116 [facility] [address] [id number] [address] [place] [address] Apr, Other chronic pain G89.29 [facility] [address] [id number] [address] [place] [address] Mar, Other chronic pain G89.29 [facility] [address] [facility] [id number] [address] [place] [id number] Mar, Factor V Leiden D68.51 ; Pur e hypercholesterolemia E78.00 and Other chronic pain G89.29 [place] [address] [facility] [id number] [address] [place] [id number] Feb, Other chronic pain G89.29 [place] [address] [facility] [id number] [address] [place] [phone] Jan, Idiopathic chronic gout of m ultiple sites without tophus [id number].[id number] [facility] [address] [facility] [id number] [address] [place] [phone] Jan, Other chronic pain G89.29 [place] [address] [facility] [id number] [address] [place] [id number] Dec, Anticoagulant long-term use Z79.01 ; Factor V Leiden D68.51 and Other chronic pain G89.29 [place] [address] [facility] [id number] [address] [place] [phone] Dec, Other chronic pain G89.29 [facility] [address] [facility] [id number] [address] [place] [id number] Nov, Other chronic pain G89.29 [facility] [address] [facility] [id number] [address] [place] [phone] Oct, Other chronic pain G89.29 [place] [address] [address] [facility] [id number] [address] [place] [phone] Sep, Anticoagulant long-term use Z79.01 [facility] [address] [facility] [id number] [address] [place] [phone] Sep, Chronic prescription opiate use Z79.899 ; Anticoagulant long-term use Z79.01 ; Essential hypertension I10 ; Pure hypercholesterolemia E78.00 ; Factor V Leiden D68.51 ; Venous stasis ulcers, left I83.029 ; Other chronic pain G89.29 and 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 [place] [address] [address] [facility] [id number] [address] [place] [phone] Aug, Anticoagulant long-term use Z79.01 [place] [address] [address] [facility] [id number] [address] [place] [place] [address] Aug, Other chronic pain G89.29 [place] [address] [address] [facility] [id number] [address] [place] [address] Aug, Essential hypertension I10 a nd Factor V Leiden D68.[address] [id number] [place] [id number] Aug, Acute right ankle pain M25.571 and Tendo nitis of ankle M77.50 [place] [address] [address] [facility] [id number] [address] [place] [address] Aug, [place] [address] [address] [facility] [id number] [address] [place] [address] July, Other chronic pain G89.29 [place] [address] [address] [facility] [id number] [address] [place] [address] Jun, Other chronic pain G89.29 [place] [address] [address] [facility] [id number] [address] [place] [address] Jun, Other chronic pain G89.29 [place] [address] [address] [facility] [id number] [address] [place] [address] Jun, Anticoagulant long-term use Z79.01 [place] [address] [address] [facility] [id number] [address] [place] [address] May, Other chronic pain G89.29 [facility] [address] [facility] [id number] [address] [place] [address] May, Anticoagulant long-term use Z79.01 [facility] [address] [facility] [id number] [address] [place] [address] May, Other chronic pain G89.29 [facility] [address] [facility] [id number] [address] [place] [address] Apr, Anticoagulant long-term use Z79.01 [place] [address] [address] [facility] [id number] [address] [place] [address] Apr, Other chronic pain G89.29 [place] [address] [address] [facility] [id number] [address] [place] [address] Apr, Anticoagulant long-term use Z79.01 and Pure hypercholesterolemia E78.00 [place] [address] [address] Mar, [place] [address] [address] [place] [id number] [address] [place] [address] Mar, Anticoagulant long-term use Z79.01 [place] [address] [address] [place] [id number] [address] [place] [address] Mar, Other chronic pain G89.29 [place] [address] [address] [place] [id number] [address] [place] [address] Feb, Essential hypertension I10 ; Chronic prescription opiate use Z79.899 ; Other chronic pain G89.29 ; Screening Z13.9 ; Factor V Leiden D68.51 ; Anticoagulant long-term use Z79.01 ; Venous stasis dermatitis of left lower extremity I83.12 and Pure hypercholesterolemia E78.00 [place] [address] [address] [facility] [id number] [address] [place] [address] Jan, Anticoagulant long-term use Z79.01 [place] [address] [address] [facility] [id number] [address] [place] [address] Jan, Anticoagulant long-term use Z79.01 [facility] [address] [facility] [id number] [address] [place] [address] Jan, [facility] [address] [facility] [id number] [address] [place] [address] Jan, [facility] [address] [facility] [id number] [address] [place] [address] Dec, [facility] [address] [facility] [id number] [address] [place] [address] Nov, [facility] [address] [facility] [id number] [address] [place] [address] Oct, Anticoagulant long-term use Z79.01 [facility] [address] [facility] [id number] [address] [place] [address] Oct, [facility] [address] [address] Oct, Anticoagulant long-term use Z79.01 [facility] [address] [facility] [id number] [address] [place] [address] Sep, [facility] [address] [facility] [id number] [address] [place] [address] Aug, [facility] [address] [facility] [id number] [address] [place] [address] Aug, Chronic prescription opiate use Z79.899 ; Other chronic pain G89.29 ; Essential hypertension I10 and Pure hypercholesterolemia E78.0 [facility] [address] [facility] [id number] [address] [place] [address] July, Hyperlipidemia, group D E78. 3 and Anticoagulant long-term use Z79.01 [facility] [address] [facility] [id number] [address] [place] [address] July, Hyperlipidemia, group D E78. 3 ; Essential hypertension I10 and Factor V Leiden D68.51 [facility] [address] [place] [id number] [address] [place] [address] July, Essential hypertension I10 [facility] [address] [facility] [id number] [address] [place] [address] Jun, Hyperlipidemia, group D E78. 3 [facility] [address] [facility] [id number] [address] [place] [address] Jun, Factor V Leiden D68.51 [facility] [address] [place] [id number] [address] [place] [address] May, Factor V Leiden D68.51 ; Hyp erlipidemia, group D E78.3 ; Essential hypertension I10 ; Other chronic pain G89.29 and Anticoagulant long-term use Z79.01 [place] [address] [address] May, Anticoagulant long-term use Z79.01 [place] [address] [address] [place] [id number] [address] [place] [address] May, Anticoagulant long-term use Z79.01 [facility] [id number] [place] [address] May, [facility] [address] [place] [id number] [address] [place] [address] Apr, [facility] [address] [place] [id number] [address] [place] [address] Mar, [facility] [address] [place] [id number] [address] [place] [address] Mar, [facility] [address] [facility] [id number] [address] [place] [address] Feb, Anticoagulant long-term use Z79.01 [facility] [address] [facility] [id number] [address] [place] [address] Feb, Chronic prescription opiate use Z79.899 ; Other chronic pain G89.29 ; Hyperlipidemia, group D E78.3 ; Factor V Leiden D68.51 and Anticoagulant long- term use Z79.01 [facility] [address] [address] Feb, [place] [address] [address] Jan, [facility] [address] [address] Dec, Hyperlipidemia, unspecified E78.5 [place] [address] [address] Dec, Cellulitis of left lower ext remity L03.116 ; Venous stasis ulcers, left I83.029 and Factor V Leiden D68.51 [place] [address] [address] Dec, Hyperlipidemia 272.4 and Fac tor 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 [place] [address] [address] Dec, [facility] [address] [address] Nov, 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 [place] [address] [address] Nov, [place] [address] [address] Nov, [place] [address] [address] Nov, [facility] [address] [address] Oct, [facility] [address] [address] Oct, Hyperlipidemia 272.4 ; Chron ic pain disorder 338.4 ; Venous stasis ulcer of left lower extremity 454.0 and 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 [place] [address] [address] Sep, [facility] [address] [id number] [address] [place] [address] Sep, [facility] [address] [id number] [address] [place] [address] Sep, Hyperlipidemia 272.4 and Fac tor 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 [facility] [address] [id number] [address] [place] [address] Aug, [facility] [address] [id number] [address] [place] [address] Aug, 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 [facility] [address] [id number] [address] [place] [address] July, [facility] [address] [facility] [id number] [address] [place] [address] July, Essential hypertension, fito gn 401.1 ; 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 ; Chronic pain disorder 338.4 ; Hyperlipidemia 272.4 and Venous stasis ulcer of left lower extremity 454.0 [facility] [address] [facility] [id number] [address] [place] [address] Jun, [facility] [address] [facility] [id number] [address] [place] [address] Jun, [facility] [address] [facility] [id number] [address] [place] [address] May, [facility] [address] [id number] [address] [place] [address] May, [facility] [address] [facility] [id number] [address] [place] [address] Apr, [facility] [address] [id number] [address] [place] [address] Apr, [facility] [address] [facility] [id number] [address] [place] [address] Apr, [facility] [address] [id number] [address] [place] [address], [place] [address] 18 Apr, 2014 [facility] [address] [id number] [address] [place] [address], [place] [address] 13 Apr, 2014 [facility] [address] [id number] [address] [place] [address], [place] [address] 13 Apr, 2014 [facility] [address] [id number] [address] [place] [address], [place] [address] 15 Mar, 2014 [facility] [address] [id number] [address] [place] [address], [place] [address] 15 Mar, 2014 [facility] [address] [id number] [address] [place] [address], [place] [address] Mar, [facility] [address] [id number] [address] [place] [address], [place] [address] Mar, [facility] [address] [id number] [address] [place] [address], [place] [address] 17 Feb, 2014 [facility] [address] [id number] [address] [place] [address], [place] [address] 17 Feb, 2014 [facility] [address] [id number] [address] [place] [address], [place] [address] 16 Feb, 2014 [facility] [address] [id number] [address] [place] [address], [place] [address] 16 Feb, 2014 [facility] [address] [id number] [address] [place] [address], [place] [address] 24 Jan, 2014 [facility] [address] [id number] [address] [place] [address], [place] [address] 19 Jan, 2014 [facility] [address] [id number] [address] [place] [address], [place] [address] 19 Jan, 2014 [facility] [address] [id number] [address] [place] [address], [place] [address] 14 Jan, 2014 [facility] [address] [id number] [address] [place] [address], [place] [address] Jan, [facility] [address] [id number] [address] [place] [address], [place] [address] Jan, [facility] [address] [id number] [address] [place] [address], [place] [address] Dec, [facility] [address] [id number] [address] [place] [address], [place] [address] Dec, [facility] [address] [id number] [address] [place] [address], [place] [address] Oct, [facility] [address] [id number] [address] [place] [address], [place] [address] Oct, [facility] [address] [id number] [address] [place] [address], [place] [address] Sep, [facility] [address] [id number] [address] [place] [address], [place] [address] Sep, [facility] [address] [id number] [address] [place] [address], [place] [address] Sep, [facility] [address] [id number] [address] [place] [address], [place] [address] Sep, [facility] [address] [id number] [address] [place] [address], [place] [address] Aug, [facility] [address] [id number] [address] [place] [address], [place] [address] Aug, [facility] [address] [id number] [address] [place] [address], [place] [address] July, [facility] [address] [id number] [address] [place] [address], [place] [address] July, [facility] [address] [id number] [address] [place] [address], [place] [address] Jun, [facility] [address] [id number] [address] [place] [address], [place] [address] Jun, [facility] [address] [id number] [address] [place] [address], [place] [address] May, [facility] [address] [id number] [address] [place] [address], [place] [address] May, [facility] [address] [id number] [address] [place] [address], [place] [address] Apr, [facility] [address] [id number] [address] [place] [address], [place] [address] Apr, [facility] [address] [id number] [address] [place] [address], [place] [address] Mar, [facility] [address] [id number] [address] [place] [address], [place] [address] Mar, [facility] [address] [id number] [address] [place] [address], [place] [address] Jan, [facility] [address] [id number] [address] [place] [address] Jan, [facility] [address] [id number] [address] [place] [address], [place] [address] Jan, [facility] [address] [id number] [address] [place] [address], [place] [address] Jan, [facility] [address] [id number] [address] [place] [address], [place] [address] Jan, [facility] [address] [id number] [address] [place] [address], [place] [address] Dec, [facility] [address] [id number] [address] [place] [address] Dec, [facility] [address] [id number] [address] [place] [address], [place] [address] Dec, [facility] [address] [id number] [address] [place] [address], [place] [address] Nov, [facility] [address] [id number] [address] [place] [address], [place] [address] Nov, [facility] [address] [facility] [id number] [address] [place] [address] Sep, [facility] [address] [facility] [id number] [address] [place] [address] Sep, [facility] [address] [facility] [id number] [address] [place] [address] Aug, [facility] [address] [facility] [id number] [address] [place] [address] Aug, [facility] [address] [id number] [place] [id number] July, [facility] [address] [id number] [place] [id number] Jun, [facility] [address] [id number] [place] [id number] Apr, [facility] [address] [id number] [place] [id number] Mar, [facility] [address] [facility] [id number] [address] [place] [address] Mar, [facility] [address] [id number] [place] [id number] Mar, [facility] [address] [facility] [id number] [address] [place] [address] Mar, [facility] [address] [id number] [place] [id number] Feb, [facility] [address] [facility] [id number] [address] [place] [address] Feb, [facility] [address] [id number] [place] [id number] Feb, [facility] [address] [facility] [id number] [address] [place] [address] Feb, [facility] [address] [id number] [place] [id number] Oct, [facility] [address] [id number] [place] [id number] Oct, [facility] [address] [id number] [place] [id number] July, [facility] [address] [id number] [place] [id number] July, [facility] [address] [id number] [place] [id number] Jun, [facility] [address] [id number] [place] [id number] Jun, [facility] [address] [id number] [place] [id number] Jun, [facility] [address] [id number] [place] [id number] Mar, [facility] [address] [id number] [place] [id number] Mar, [facility] [address] [facility] [id number] [address] [place] [address] Feb, [facility] [address] [facility] [id number] [address] [place] [address] Feb, [facility] [address] [facility] [id number] [address] [place] [address] Jan, [facility] [address] [facility] [id number] [address] [place] [address] Jan, [facility] [address] [facility] [id number] [address] [place] [address] Jan, [facility] [address] [facility] [id number] [address] [place] [address] Jan, [facility] [address] [facility] [id number] [address] [place] [address] Jan, [facility] [address] [facility] [id number] [address] [place] [address] Aug, [facility] [address] [facility] [id number] [address] [place] [address] Apr, IMMUNIZATIONS No Known Immunizations SOCIAL HISTORY [...]
--- OUTSIDE RECORDS SUMMARY | 2019-11-08 12:57 | XMS REPORT ---
Author Author Zana ORTIZ Organization [facility] Address [address] [place] [address] Care Team Providers Care Strapper And Buffer Name Role Phone AVANI ORTIZ Unavailable PROBLEMS Type Condition ICD9-CM Code RLO37-SV Code Onset Dates Condition S tatus SNOMED Code Problem Factor V Leiden D68.51 Active 3070 37781 Problem Anticoagulant long-term use Z79.01 Ac tive 342121714 Problem Post-phlebitic syndrome I87.009 Active 30795002 Problem 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 66468873 Problem Other chronic pain G89.29 Active 8 3235173 Problem Venous stasis ulcers, left I83.029 Act ozzy 337108765 Problem Essential hypertension I10 Active 53495610 Problem Venous anomaly Q27.9 Active 67101 4003 Problem Congenital single kidney Q60.0 Activ e 25179858 Problem Chronic prescription opiate use Z79.899 Active 932580984 Problem Pure hypercholesterolemia E78.00 Acti ve 703272038 ALLERGIES No Information ENCOUNTERS Encounter Location Date Diagnosis [facility] [address] [facility] [id number] [address] [place] [address] July, [facility] [address] [facility] [id number] [address] [place] [address] Jun, [facility] [address] [facility] [id number] [address] [place] [address] Jun, Anticoagulant long-term use Z79.[id number] [place] [address] [id number] May, Anticoagulant long-term use Z79.01 [facility] [address] [facility] [id number] [address] [place] [address] May, Other chronic pain G89.29 [facility] [address] [facility] [id number] [address] [place] [address] May, Anticoagulant long-term use Z79.[address] [facility] [address] [id number], [place] [id number] Apr, Anticoagulant long-term use Z79.01 [place] [address] [facility] [id number] [address] [place] [address] Apr, Other chronic pain G89.29 [place] [address] [facility] [id number] [address] [place] [address] Apr, Anticoagulant long-term use Z79.01 [facility] [id number] [place] [address] [id number] Apr, Anticoagulant long-term use Z79.01 [facility] [address] [id number], [place] [id number] Apr, Factor V Leiden D68.51 [place] [address] [facility] [id number] [address] [place] [address] Mar, Anticoagulant long-term use Z79.01 [place] [address] [facility] [id number] [address] [place] [address] Mar, Factor V Leiden D68.51 [place] [address] [facility] [id number] [address] [place] [address] Mar, Occult blood positive stool R19.5 [place] [address] [facility] [id number] [address] [place] [address] Mar, Other chronic pain G89.29 [place] [address] [facility] [id number] [address] [place] [address] Mar, Factor V Leiden D68.51 and A nticoagulant long-term use Z79.01 [facility] [address] [id number], [place] [id number] Mar, Anticoagulant long-term use Z79.[address] [facility] [address] [id number], [place] [id number] Mar, Anticoagulant long-term use Z79.01 [facility] [address] [facility] [id number] [address] [place] [address] Mar, Anticoagulant long-term use Z79.01 [facility] [address] [facility] [id number] [address] [place] [address] Mar, Pure hypercholesterolemia E7 8.00 [facility] [address] [id number], [place] [id number] Mar, Anticoagulant long-term use Z79.01 [place] [address] [facility] [id number] [address] [place] [address] Mar, Other chronic pain G89.29 [place] [address] [facility] [id number] [address] [place] [address] Feb, Anticoagulant long-term use Z79.01 and Essential hypertension I10 [facility] [address] [facility] [id number] [address] [place] [address] Feb, Anticoagulant long-term use Z79.01 ; Essential hypertension I10 ; Chronic prescription opiate use Z79.899 ; Other chronic pain G89.29 ; Venous stasis ulcers, left I83.029 ; 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.09X0 and Pure hypercholesterolemia E78.00 [facility] [address] [id number], [place] [id number] Feb, Anticoagulant long-term use Z79.01 [facility] [address] [facility] [id number] [address] [place] [address] Feb, Anticoagulant long-term use Z79.01 [place] [address] [facility] [id number] [address] [place] [address] Feb, Other chronic pain G89.29 [facility] [address] [id number], [place] [id number] Feb, Anticoagulant long-term use Z79.01 [facility] [address] [facility] [id number] [address] [place] [address] Jan, Anticoagulant long-term use Z79.[address] [facility] [address] [id number], [place] [id number] Jan, Anticoagulant long-term use Z79.[address] [facility] [address] [id number], [place] [id number] Jan, Anticoagulant long-term use Z79.01 [facility] [address] [facility] [id number] [address] [place] [address] Jan, Anticoagulant long-term use Z79.[address] [facility] [address] [id number], [place] [id number] Jan, Anticoagulant long-term use Z79.01 [facility] [address] [facility] [id number] [address] [place] [address] Jan, Anticoagulant long-term use Z79.01 [facility] [address] [id number], [place] [id number] Jan, Anticoagulant long-term use Z79.01 [facility] [address] [facility] [id number] [address] [place] [address] Jan, [facility] [address] [id number], [place] [id number] Jan, Anticoagulant long-term use Z79.01 [facility] [address] [facility] [id number] [address] [place] [address] Jan, [facility] [address] [facility] [id number] [address] [place] [address] Jan, Other chronic pain G89.29 [facility] [address] [facility] [id number] [address] [place] [address] Jan, Anticoagulant long-term use Z79.01 [facility] [address] [id number], [place] [id number] Dec, Anticoagulant long-term use Z79.01 [facility] [address] [facility] [id number] [address] [place] [address] Dec, Anticoagulant long-term use Z79.[address] [facility] [address] [id number], [place] [id number] Dec, Anticoagulant long-term use Z79.01 [facility] [address] [id number], [place] [id number] Dec, Anticoagulant long-term use Z79.01 [facility] [address] [facility] [id number] [address] [place] [address] Dec, Anticoagulant long-term use Z79.01 [facility] [address] [facility] [id number] [address] [place] [address] Dec, Anticoagulant long-term use Z79.01 [facility] [address] [facility] [id number] [address] [place] [address] Dec, Anticoagulant long-term use Z79.01 [facility] [address] [facility] [id number] [address] [place] [address] Dec, Other chronic pain G89.29 [facility] [address] [facility] [id number] [address] [place] [address] Dec, Anticoagulant long-term use Z79.01 [facility] [address] [facility] [id number] [address] [place] [address] Dec, [facility] [address] [facility] [id number] [address] [place] [address] Dec, Other chronic pain G89.29 [facility] [address] [id number], [place] [id number] Dec, Anticoagulant long-term use Z79.01 [facility] [address] [facility] [id number] [address] [place] [address] Nov, Anticoagulant long-term use Z79.01 [facility] [address] [id number], [place] [id number] Nov, Anticoagulant long-term use Z79.01 [facility] [address] [facility] [id number] [address] [place] [address] Nov, Anticoagulant long-term use Z79.01 [facility] [address] [facility] [id number] [address] [place] [address] Nov, Other chronic pain G89.29 [facility] [address] [facility] [id number] [address] [place] [address] Nov, Other chronic pain G89.29 [facility] [address] [facility] [id number] [address] [place] [address] Nov, Anticoagulant long-term use Z79.01 [facility] [address] [id number], [place] [id number] Nov, Factor V Leiden D68.51 [facility] [address] [id number], [place] [id number] Nov, Factor V Leiden D68.51 [facility] [address] [facility] [id number] [address] [place] [address] Nov, Anticoagulant long-term use Z79.01 [facility] [address] [id number], [place] [id number] Nov, Anticoagulant long-term use Z79.01 [facility] [address] [facility] [id number] [address] [place] [address] Nov, Essential hypertension I10 ; Factor V Leiden D68.51 and Anticoagulant long-term use Z79.01 [facility] [address] [id number], [place] [id number] Oct, Anticoagulant long-term use Z79.01 [facility] [address] [facility] [id number] [address] [place] [address] Oct, [facility] [address] [facility] [id number] [address] [place] [address] Oct, Anticoagulant long-term use Z79.01 [facility] [address] [id number] [address] [place] [address] Oct, Other chronic pain G89.29 [facility] [address] [id number] [address] [place] [address] Oct, Anticoagulant long-term use Z79.01 [facility] [address] [facility] [id number] [address] [place] [address] Oct, [facility] [address] [id number] [address] [place] [address] Sep, Anticoagulant long-term use Z79.01 [facility] [id number] [place] [address] [id number] Sep, Anticoagulant long-term use Z79.01 [facility] [address] [facility] [id number] [address] [place] [address] Sep, Other chronic pain G89.29 [facility] [address] [id number] [address] [place] [address] Sep, Anticoagulant long-term use Z79.01 [facility] [id number] [place] [address] [id number] Sep, Anticoagulant long-term use Z79.01 [facility] [address] [facility] [id number] [address] [place] [address] Aug, Anticoagulant long-term use Z79.01 [facility] [address] [id number] [address] [place] [address] Aug, Anticoagulant long-term use Z79.01 [facility] [address] [facility] [id number] [address] [place] [address] Aug, Other chronic pain G89.29 [facility] [address] [facility] [id number] [address] [place] [address] Aug, Other chronic pain G89.29 ; Anticoagulant long-term use Z79.01 ; 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.09X0 ; Oral pain K13.79 ; Dental infection K04.7 ; Essential hypertension I10 and Pure hypercholesterolemia E78.00 [facility] [address] [facility] [id number] [address] [place] [address] July, Other chronic pain G89.29 [facility] [address] [facility] [id number] [address] [place] [address] Jun, Other chronic pain G89.29 [facility] [address] [id number] [address] [place] [address] Jun, [facility] [address] [facility] [id number] [address] [place] [address] Jun, [facility] [address] [id number], [place] [id number] Jun, Anticoagulant long-term use Z79.01 and I diopathic chronic gout of multiple sites without tophus M1A.09X0 [facility] [address] [facility] [id number] [address] [place] [address] May, Other chronic pain G89.29 [facility] [address] [facility] [id number] [address] [place] [address] May, [facility] [address] [facility] [id number] [address] [place] [address] May, Anticoagulant long-term use Z79.01 [facility] [address] [facility] [id number] [address] [place] [address] May, [facility] [address] [id number], [place] [id number] May, Anticoagulant long-term use Z79.01 [facility] [address] [facility] [id number] [address] [place] [address] May, Anticoagulant long-term use Z79.01 [place] [address] [facility] [id number] [address] [place] [address] May, Anticoagulant long-term use Z79.01 [facility] [address] [id number], [place] [id number] May, Factor V Leiden D68.51 [place] [address] [facility] [id number] [address] [place] [address] Apr, Other chronic pain G89.29 [place] [address] [facility] [id number] [address] [place] [address] Apr, Idiopathic chronic gout of m ultiple sites without tophus M1A.09X0 [facility] [address] [id number], [place] [id number] Apr, Anticoagulant long-term use Z79.01 [facility] [address] [id number], [place] [id number] Apr, Anticoagulant long-term use Z79.01 ; Med ication side effect T88.7XXA and 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.09X0 [place] [address] [facility] [id number] [address] [place] [address] Apr, [place] [address] [place] [id number] [address] [place] [address] Apr, Anticoagulant long-term use Z79.01 [place] [address] [facility] [id number] [address] [place] [address] Apr, Medication side effect T88.7 XXA and Factor V Leiden D68.51 [place] [address] [facility] [id number] [address] [place] [address] Apr, Idiopathic chronic gout of m ultiple sites without tophus M1A.09X0 and Anticoagulant long-term use Z79.01 [facility] [address] [id number], [place] [id number] Mar, Factor V Leiden D68.51 and Anticoagulant long-term use Z79.01 [place] [address] [facility] [id number] [address] [place] [address] Mar, Factor V Leiden D68.51 ; Ant icoagulant long-term use Z79.01 ; 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.09X0 ; Pure hypercholesterolemia E78.00 ; Other chronic pain G89.29 and BMI 40.0-44.9, adult Z68.41 [facility] [address] [facility] [id number] [address] [place] [address] Mar, [facility] [address] [facility] [id number] [address] [place] [address] Mar, Other chronic pain G89.29 [facility] [address] [facility] [id number] [address] [place] [address] Feb, Idiopathic chronic gout of m ultiple sites without tophus M1A.09X0 [id number] [place] [address] [id number] Feb, Anticoagulant long-term use Z79.01 and I diopathic chronic gout of multiple sites without tophus M1A.09X0 [place] [address] [facility] [id number] [address] [place] [address] Feb, Anticoagulant long-term use Z79.01 and 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.09X0 [place] [address] [facility] [id number] [address] [place] [address] Feb, [facility] [address] [facility] [id number] [address] [place] [address] Feb, Other chronic pain G89.29 [facility] [address] [facility] [id number] [address] [place] [address] Jan, Other chronic pain G89.29 [facility] [address] [facility] [id number] [address] [place] [address] Dec, Other chronic pain G89.29 [facility] [address] [facility] [id number] [address] [place] [address] 05 Dec, 2017 Anticoagulant long-term use Z79.01 [facility] [address] [id number] [address] [place] [address] 03 Dec, 2017 Chronic prescription opiate use Z79.899 ; Factor V Leiden D68.51 ; Other chronic pain G89.29 and Anticoagulant long-term use Z79.01 [facility] [address] [facility] [id number] [address] [place] [address] 12 Nov, 2017 Other chronic pain G89.29 [facility] [address] [id number] [address] [place] [address] Oct, Other chronic pain G89.29 [facility] [address] [facility] [id number] [address] [place] [address] Sep, Other chronic pain G89.29 [place] [address] [facility] [id number] [address] [place] [address] Aug, Other chronic pain G89.29 [facility] [address] [id number] [address] [place] [address] Aug, Venous stasis ulcers, left I 83.029 [place] [address] [facility] [id number] [address] [place] [address] July, Other chronic pain G89.29 [facility] [address] [facility] [id number] [address] [place] [address] July, Venous stasis ulcers, left I 83.029 and Snoring R06.83 [facility] [address] [id number] [address] [place] [address] Jun, Idiopathic chronic gout of m ultiple sites without tophus M1A.09X0 [facility] [address] [facility] [id number] [address] [place] [address] Jun, Acute renal insufficiency N2 8.9 [place] [address] [facility] [id number] [address] [place] [address] Jun, Other chronic pain G89.29 [place] [address] [facility] [id number] [address] [place] [address] Jun, Acute renal insufficiency N2 8.9 [place] [id number] [facility] [id number] [place] [address] [id number] Jun, Idiopathic chronic gout of multiple site s without tophus M1A.09X0 ; Essential hypertension I10 and Anticoagulant long-term use Z79.01 [place] [address] [facility] [id number] [address] [place] [address] Jun, Anticoagulant long-term use Z79.01 and Essential hypertension I10 [place] [address] [facility] [id number] [address] [place] [address] May, Idiopathic chronic gout of m ultiple sites without tophus M1A.09X0 [place] [address] [facility] [id number] [address] [place] [address] May, [place] [address] [facility] [id number] [address] [place] [address] May, Essential hypertension I10 ; Pure hypercholesterolemia E78.00 ; Anticoagulant long-term use Z79.01 and 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.09X0 [place] [address] [facility] [id number] [address] [place] [address] May, Other chronic pain G89.29 [place] [address] [facility] [id number] [address] [place] [address] May, Anticoagulant long-term use Z79.01 [place] [address] [facility] [id number] [address] [place] [address] May, Chronic prescription opiate use Z79.899 ; Other chronic pain G89.29 ; Essential hypertension I10 ; Factor V Leiden D68.51 ; Anticoagulant long-term use Z79.01 ; Pure hypercholesterolemia E78.00 ; Venous stasis ulcers, left I83.029 ; 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.09X0 and Cellulitis of left lower extremity L03.116 [facility] [address] [id number] [address] [place] [address] Apr, Other chronic pain G89.29 [facility] [address] [id number] [address] [place] [address] Mar, Other chronic pain G89.29 [facility] [address] [id number] [address] [place] [address] Mar, Factor V Leiden D68.51 ; Pur e hypercholesterolemia E78.00 and Other chronic pain G89.29 [facility] [address] [id number] [address] [place] [address] Feb, Other chronic pain G89.29 [facility] [address] [id number] [address] [place] [id number] Jan, Idiopathic chronic gout of m ultiple sites without tophus M1A.09X0 [facility] [address] [id number] [address] [place] [id number] Jan, Other chronic pain G89.29 [facility] [address] [id number] [address] [place] [id number] Dec, Anticoagulant long-term use Z79.01 ; Factor V Leiden D68.51 and Other chronic pain G89.29 [facility] [address] [id number] [address] [place] [id number] Dec, Other chronic pain G89.29 [facility] [address] [id number] [address] [place] [id number] Nov, Other chronic pain G89.29 [facility] [address] [id number] [address] [place] [id number] Oct, Other chronic pain G89.29 [facility] [address] [id number] [address] [place] [id number] Sep, Anticoagulant long-term use Z79.01 [facility] [address] [id number] [address] [place] [id number] Sep, Chronic prescription opiate use Z79.899 ; Anticoagulant long-term use Z79.01 ; Essential hypertension I10 ; Pure hypercholesterolemia E78.00 ; Factor V Leiden D68.51 ; Venous stasis ulcers, left I83.029 ; Other chronic pain G89.29 and 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.09X0 [facility] [address] [facility] [id number] [address] [place] [id number] Aug, Anticoagulant long-term use Z79.01 [facility] [address] [facility] [id number] [address] [place] [id number] Aug, Other chronic pain G89.29 [place] [address] [address] [facility] [id number] [address] [place] [id number] Aug, Essential hypertension I10 a nd Factor V Leiden D68.[id number] [place] [id number] Aug, Acute right ankle pain M25.571 and Tendo nitis of ankle M77.50 [place] [address] [address] [facility] [id number] [address] [place] [id number] Aug, [place] [address] [address] [facility] [id number] [address] [place] [id number] July, Other chronic pain G89.29 [place] [id number] [facility] [id number] [address] [place] [id number] Jun, Other chronic pain G89.29 [facility] [address] [facility] [id number] [address] [place] [id number] Jun, Other chronic pain G89.29 [facility] [address] [facility] [id number] [address] [place] [address] [address] Jun, Anticoagulant long-term use Z79.01 [facility] [address] [facility] [id number] [address] [place] [address] May, Other chronic pain G89.29 [place] [id number] [facility] [id number] [address] [place] [address] May, Anticoagulant long-term use Z79.01 [place] [address] [facility] [id number] [address] [place] [address] May, Other chronic pain G89.29 [place] [id number] [place] [address] Apr, Anticoagulant long-term use Z79.01 [place] [address] [facility] [id number] [address] [place] [address] Apr, Other chronic pain G89.29 [place] [address] [place] [id number] [address] [place] [address] Apr, Anticoagulant long-term use Z79.01 and Pure hypercholesterolemia E78.00 [place] [address] [address] [place] [id number] [address] [place] [address] Mar, [place] [address] [place] [id number] [address] [place] [address] Mar, Anticoagulant long-term use Z79.01 [place] [address] [place] [id number] [address] [place] [address] Mar, Other chronic pain G89.29 [place] [address] [place] [id number] [address] [place] [address] Feb, Essential hypertension I10 ; Chronic prescription opiate use Z79.899 ; Other chronic pain G89.29 ; Screening Z13.9 ; Factor V Leiden D68.51 ; Anticoagulant long-term use Z79.01 ; Venous stasis dermatitis of left lower extremity I83.12 and Pure hypercholesterolemia E78.00 [place] [address] [facility] [id number] [address] [place] [address] Jan, Anticoagulant long-term use Z79.01 [place] [address] [address] [place] [id number] [address] [place] [address] Jan, Anticoagulant long-term use Z79.01 [facility] [address] [id number] [address] [place] [address] Jan, [facility] [address] [id number] [address] [place] [address] Jan, [facility] [address] [facility] [id number] [address] [place] [address] Dec, [facility] [address] [id number] [address] [place] [address] Nov, [facility] [address] [id number] [address] [place] [address] Oct, Anticoagulant long-term use Z79.01 [facility] [address] [facility] [id number] [address] [place] [address] Oct, [facility] [address] [facility] [id number] [address] [place] [address] Oct, Anticoagulant long-term use Z79.01 [facility] [address] [facility] [id number] [address] [place] [address] Sep, [facility] [address] [facility] [id number] [address] [place] [address] Aug, [facility] [address] [facility] [id number] [address] [place] [address] Aug, Chronic prescription opiate use Z79.899 ; Other chronic pain G89.29 ; Essential hypertension I10 and Pure hypercholesterolemia E78.0 [facility] [address] [facility] [id number] [address] [place] [address] July, Hyperlipidemia, group D E78. 3 and Anticoagulant long-term use Z79.01 [facility] [address] [facility] [id number] [address] [place] [address] July, Hyperlipidemia, group D E78. 3 ; Essential hypertension I10 and Factor V Leiden D68.51 [facility] [address] [facility] [id number] [address] [place] [address] July, Essential hypertension I10 [facility] [address] [facility] [id number] [address] [place] [address] Jun, Hyperlipidemia, group D E78. 3 [facility] [address] [facility] [id number] [place] [address] Jun, Factor V Leiden D68.51 [facility] [address] [place] [id number] [address] [place] [address] May, Factor V Leiden D68.51 ; Hyp erlipidemia, group D E78.3 ; Essential hypertension I10 ; Other chronic pain G89.29 and Anticoagulant long-term use Z79.01 [facility] [address] [facility] [id number] [place] [address] May, Anticoagulant long-term use Z79.01 [place] [address] [address] May, Anticoagulant long-term use Z79.01 [facility] [address] [place] [id number] [address] [place] [address] May, [facility] [address] [address] Apr, [facility] [address] [address] Mar, [facility] [address] [address] Mar, [facility] [address] [facility] [id number] [address] [place] [address] Feb, Anticoagulant long-term use Z79.01 [facility] [address] [place] [id number] [place] [address] Feb, Chronic prescription opiate use Z79.899 ; Other chronic pain G89.29 ; Hyperlipidemia, group D E78.3 ; Factor V Leiden D68.51 and Anticoagulant long- term use Z79.01 [facility] [address] [address] Feb, [facility] [address] [address] Jan, [facility] [address] [address] Dec, Hyperlipidemia, unspecified E78.5 [facility] [address] [address] Dec, Cellulitis of left lower ext remity L03.116 ; Venous stasis ulcers, left I83.029 and Factor V Leiden D68.51 [facility] [address] [address] Dec, Hyperlipidemia 272.4 and Fac tor 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 [place] [address] [address] Dec, [facility] [address] [address] Nov, 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 [facility] [address] [address] Nov, [facility] [address] [address] Nov, [facility] [address] [address] Nov, [facility] [address] [address] Oct, [facility] [address] [address] Oct, Hyperlipidemia 272.4 ; Chron ic pain disorder 338.4 ; Venous stasis ulcer of left lower extremity 454.0 and 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 [facility] [address] [address] Sep, [facility] [address] [id number] [address] [place] [address] Sep, [facility] [address] [facility] [id number] [address] [place] [address] Sep, Hyperlipidemia 272.4 and Fac tor 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 [facility] [address] [facility] [id number] [address] [place] [address] Aug, [facility] [address] [id number] [address] [place] [address] Aug, 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 [facility] [address] [id number] [address] [place] [address] July, [facility] [address] [facility] [id number] [address] [place] [address] July, Essential hypertension, fito gn 401.1 ; 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 ; Chronic pain disorder 338.4 ; Hyperlipidemia 272.4 and Venous stasis ulcer of left lower extremity 454.0 [facility] [address] [facility] [id number] [address] [place] [address] Jun, [facility] [address] [facility] [id number] [address] [place] [address] Jun, [facility] [address] [facility] [id number] [address] [place] [address] May, [facility] [address] [id number] [address] [place] [address] May, [facility] [address] [facility] [id number] [address] [place] [address] Apr, [facility] [address] [facility] [id number] [address] [place] [address] Apr, [facility] [address] [facility] [id number] [address] [place] [address] Apr, [facility] [address] [facility] [id number] [address] [place] [id number] 18 Apr, 2014 [facility] [address] [id number] [address] [place] [address], [place] [address] Apr, [facility] [address] [id number] [address] [place] [address], [place] [address] 13 Apr, 2014 [facility] [address] [id number] [address] [place] [address], [place] [address] 15 Mar, 2014 [facility] [address] [id number] [address] [place] [address], [place] [address] 15 Mar, 2014 [facility] [address] [id number] [address] [place] [address], [place] [address] Mar, [facility] [address] [id number] [address] [place] [address], [place] [address] Mar, [facility] [address] [id number] [address] [place] [address], [place] [address] 17 Feb, 2014 [facility] [address] [id number] [address] [place] [address], [place] [address] 17 Feb, 2014 [facility] [address] [id number] [address] [place] [address], [place] [address] 16 Feb, 2014 [facility] [address] [id number] [address] [place] [address], [place] [address] 16 Feb, 2014 [facility] [address] [id number] [address] [place] [address], [place] [address] 24 Jan, 2014 [facility] [address] [id number] [address] [place] [address], [place] [address] 19 Jan, 2014 [facility] [address] [id number] [address] [place] [address], [place] [address] 19 Jan, 2014 [facility] [address] [id number] [address] [place] [address], [place] [address] 14 Jan, 2014 [facility] [address] [id number] [address] [place] [address], [place] [address] 14 Jan, 2014 [facility] [address] [id number] [address] [place] [address], [place] [address] Jan, [facility] [address] [id number] [address] [place] [address], [place] [address] Dec, [facility] [address] [id number] [address] [place] [address], [place] [address] Dec, [facility] [address] [id number] [address] [place] [address], [place] [address] Oct, [facility] [address] [id number] [address] [place] [address], [place] [address] Oct, [facility] [address] [id number] [address] [place] [address], [place] [address] Sep, [facility] [address] [id number] [address] [place] [address], [place] [address] Sep, [facility] [address] [id number] [address] [place] [address], [place] [address] Sep, [facility] [address] [id number] [address] [place] [address], [place] [address] Sep, [facility] [address] [id number] [address] [place] [address], [place] [address] Aug, [facility] [address] [id number] [address] [place] [address], [place] [address] Aug, [facility] [address] [id number] [address] [place] [address], [place] [address] July, [facility] [address] [id number] [address] [place] [address], [place] [address] July, [facility] [address] [id number] [address] [place] [address], [place] [address] Jun, [facility] [address] [id number] [address] [place] [address], [place] [address] Jun, [facility] [address] [id number] [address] [place] [address], [place] [address] May, [facility] [address] [id number] [address] [place] [address], [place] [address] May, [facility] [address] [id number] [address] [place] [address], [place] [address] Apr, [facility] [address] [id number] [address] [place] [address], [place] [address] Apr, [facility] [address] [id number] [address] [place] [address], [place] [address] Mar, [facility] [address] [id number] [address] [place] [address], [place] [address] Mar, [facility] [address] [id number] [address] [place] [address], [place] [address] Jan, [facility] [address] [id number] [address] [place] [address], [place] [address] Jan, [facility] [address] [id number] [address] [place] [address], [place] [address] Jan, [facility] [address] [id number] [address] [place] [address], [place] [address] Jan, [facility] [address] [id number] [address] [place] [address], [place] [address] Jan, [facility] [address] [id number] [address] [place] [address], [place] [address] Dec, [facility] [address] [id number] [address] [place] [address], [place] [address] Dec, [facility] [address] [id number] [address] [place] [address], [place] [address] Dec, [facility] [address] [id number] [address] [place] [address], [place] [address] Nov, [facility] [address] [id number] [address] [place] [address], [place] [address] Nov, [facility] [address] [id number] [address] [place] [address] Sep, [facility] [address] [facility] [id number] [address] [place] [address] Sep, [facility] [address] [facility] [id number] [address] [place] [address] Aug, [facility] [address] [facility] [id number] [address] [place] [address] Aug, [facility] [address] [id number] [place] [id number] July, [facility] [address] [id number] [place] [id number] Jun, [facility] [address] [id number] [place] [id number] Apr, [facility] [address] [id number] [place] [id number] Mar, [facility] [address] [facility] [id number] [address] [place] [address] Mar, [facility] [address] [id number] [place] [id number] Mar, [facility] [address] [facility] [id number] [address] [place] [address] Mar, [facility] [address] [id number] [place] [id number] Feb, [facility] [address] [facility] [id number] [address] [place] [address] Feb, [facility] [address] [id number] [place] [id number] Feb, [facility] [address] [id number] [address] [place] [address], [place] [address] Feb, [facility] [address] [id number] [place] [id number] Oct, [facility] [address] [id number] [place] [id number] Oct, [facility] [address] [id number] [place] [id number] July, [facility] [address] [id number] [place] [id number] July, [facility] [address] [id number] [place] [id number] Jun, [facility] [address] [id number] [place] [id number] Jun, [facility] [address] [id number] [place] [id number] Jun, [facility] [address] [id number] [place] [id number] Mar, [facility] [address] [id number] [place] [id number] Mar, [facility] [address] [facility] [id number] [address] [place] [address] Feb, [facility] [address] [facility] [id number] [address] [place] [address] Feb, [facility] [address] [facility] [id number] [address] [place] [id number] Jan, [facility] [address] [facility] [id number] [address] [place] [address] Jan, [facility] [address] [facility] [id number] [address] [place] [id number] Jan, [facility] [address] [facility] [id number] [address] [place] [address] Jan, [facility] [address] [facility] [id number] [address] [place] [id number] Jan, [facility] [address] [facility] [id number] [address] [place] [address] Aug, [facility] [address] [facility] [id number] [address] [place] [address] Apr, IMMUNIZATIONS No Known Immunizations SOCIAL HISTORY [...]
--- OUTSIDE RECORDS SUMMARY | 2019-11-08 12:58 | XMS REPORT ---
Author Author Zana ORTIZ Organization [facility] Address [address] [place] [address] Care Team Providers Care Satellite Manager Name Role Phone AVANI ORTIZ Unavailable PROBLEMS Type Condition ICD9-CM Code PUC49-UF Code Onset Dates Condition S tatus SNOMED Code Problem Factor V Leiden D68.51 Active 3070 92463 Problem Anticoagulant long-term use Z79.01 Ac tive 803497178 Problem Post-phlebitic syndrome I87.009 Active 59177757 Problem 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 05303304 Problem Other chronic pain G89.29 Active 8 6125081 Problem Venous stasis ulcers, left I83.029 Act ozzy 181904402 Problem Essential hypertension I10 Active 52445314 Problem Venous anomaly Q27.9 Active 48107 4003 Problem Congenital single kidney Q60.0 Activ e 49437983 Problem Chronic prescription opiate use Z79.899 Active 892386113 Problem Pure hypercholesterolemia E78.00 Acti ve [id number] ALLERGIES No Information ENCOUNTERS Encounter Location Date Diagnosis [place] [id number] [id number] [id number] May, [facility] [address] [facility] [id number] [address] [place] [address] May, Other chronic pain G89.29 [facility] [address] [facility] [id number] [address] [place] [address] May, Anticoagulant long-term use Z79.01 [facility] [address] [id number][place] [id number] Apr, Anticoagulant long-term use Z79.01 [facility] [address] [facility] [id number] [address] [place] [address] Apr, Other chronic pain G89.29 [place] [address] [facility] [id number] [address] [place] [id number] 19 Apr, 2019 Anticoagulant long-term use Z79.01 [facility] [address] [id number] [id number] Apr, Anticoagulant long-term use Z79.[address] [facility] [place] [id number] [place] [address] [id number] Apr, Factor V Leiden D68.51 [place] [address] [facility] [id number] [address] [place] [address] Mar, Anticoagulant long-term use Z79.01 [place] [address] [facility] [id number] [address] [place] [address] Mar, Factor V Leiden D68.51 [place] [address] [place] [address] Mar, Occult blood positive stool R19.5 [place] [address] [place] [address] Mar, Other chronic pain G89.29 [place] [address] [facility] [id number] [address] [place] [address] Mar, Factor V Leiden D68.51 and A nticoagulant long-term use Z79.01 [facility] [id number] [place] [address] [id number] Mar, Anticoagulant long-term use Z79.[address] [facility] [address] [id number] [place] [address] [id number] Mar, Anticoagulant long-term use Z79.01 [place] [address] [facility] [id number] [address] [place] [address] Mar, Anticoagulant long-term use Z79.01 [place] [address] [facility] [id number] [address] [place] [address] Mar, Pure hypercholesterolemia E7 8.00 [facility] [address] [id number][place] [id number] Mar, Anticoagulant long-term use Z79.01 [facility] [address] [facility] [id number] [address] [place] [address] Mar, Other chronic pain G89.29 [facility] [address] [facility] [id number] [address] [place] [address] Feb, Anticoagulant long-term use Z79.01 and Essential hypertension I10 [facility] [address] [facility] [id number] [address] [place] [address] Feb, Anticoagulant long-term use Z79.01 ; Essential hypertension I10 ; Chronic prescription opiate use Z79.899 ; Other chronic pain G89.29 ; Venous stasis ulcers, left I83.029 ; 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.09X0 and Pure hypercholesterolemia E78.00 [facility] [address] [id number], [place] [id number] Feb, Anticoagulant long-term use Z79.01 [facility] [address] [facility] [id number] [address] [place] [address] Feb, Anticoagulant long-term use Z79.01 [facility] [address] [facility] [id number] [address] [place] [address] Feb, Other chronic pain G89.29 [facility] [address] [id number], [place] [id number] Feb, Anticoagulant long-term use Z79.01 [facility] [address] [facility] [id number] [address] [place] [address] Jan, Anticoagulant long-term use Z79.[address] [facility] [address] [id number], [place] [id number] Jan, Anticoagulant long-term use Z79.01 [facility] [address] [id number], [place] [id number] Jan, Anticoagulant long-term use Z79.01 [facility] [address] [facility] [id number] [address] [place] [address] Jan, Anticoagulant long-term use Z79.[address] [facility] [address] [id number], [place] [id number] Jan, Anticoagulant long-term use Z79.01 [facility] [address] [facility] [id number] [address] [place] [address] Jan, Anticoagulant long-term use Z79.[address] [facility] [address] [id number], [place] [id number] Jan, Anticoagulant long-term use Z79.01 [facility] [address] [facility] [id number] [address] [place] [address] Jan, [facility] [address] [id number], [place] [id number] Jan, Anticoagulant long-term use Z79.01 [facility] [address] [facility] [id number] [address] [place] [address] Jan, [facility] [address] [facility] [id number] [address] [place] [address] Jan, Other chronic pain G89.29 [facility] [address] [facility] [id number] [address] [place] [address] Jan, Anticoagulant long-term use Z79.[address] [facility] [address] [id number], [place] [id number] Dec, Anticoagulant long-term use Z79.01 [facility] [address] [facility] [id number] [address] [place] [address] Dec, Anticoagulant long-term use Z79.[address] [facility] [address] [id number], [place] [id number] Dec, Anticoagulant long-term use Z79.[address] [facility] [address] [id number], [place] [id number] Dec, Anticoagulant long-term use Z79.01 [facility] [address] [facility] [id number] [address] [place] [address] Dec, Anticoagulant long-term use Z79.01 [facility] [address] [facility] [id number] [address] [place] [address] Dec, Anticoagulant long-term use Z79.01 [facility] [address] [facility] [id number] [address] [place] [address] Dec, Anticoagulant long-term use Z79.01 [facility] [address] [facility] [id number] [address] [place] [address] Dec, Other chronic pain G89.29 [facility] [address] [facility] [id number] [address] [place] [address] Dec, Anticoagulant long-term use Z79.01 [facility] [address] [facility] [id number] [address] [place] [address] Dec, [facility] [address] [facility] [id number] [address] [place] [address] Dec, Other chronic pain G89.29 [facility] [address] [id number], [place] [id number] Dec, Anticoagulant long-term use Z79.01 [facility] [address] [facility] [id number] [address] [place] [address] Nov, Anticoagulant long-term use Z79.01 [facility] [address] [id number], [place] [id number] Nov, Anticoagulant long-term use Z79.01 [facility] [address] [facility] [id number] [address] [place] [address] Nov, Anticoagulant long-term use Z79.01 [facility] [address] [facility] [id number] [address] [place] [address] Nov, Other chronic pain G89.29 [facility] [address] [facility] [id number] [address] [place] [address] Nov, Other chronic pain G89.29 [facility] [address] [facility] [id number] [address] [place] [address] Nov, Anticoagulant long-term use Z79.[address] [facility] [address] [id number], [place] [id number] Nov, Factor V Leiden D68.[address] [facility] [address] [id number], [place] [id number] Nov, Factor V Leiden D68.51 [place] [address] [facility] [id number] [address] [place] [address] Nov, Anticoagulant long-term use Z79.[address] [facility] [place] [id number] [place] [address] [id number] Nov, Anticoagulant long-term use Z79.01 [place] [address] [facility] [id number] [address] [place] [address] Nov, Essential hypertension I10 ; Factor V Leiden D68.51 and Anticoagulant long-term use Z79.[address] [facility] [place] [id number] [place] [address] [id number] Oct, Anticoagulant long-term use Z79.01 [place] [address] [facility] [id number] [address] [place] [address] Oct, [facility] [address] [facility] [id number] [address] [place] [address] Oct, Anticoagulant long-term use Z79.01 [place] [address] [facility] [id number] [address] [place] [address] Oct, Other chronic pain G89.29 [facility] [address] [place] [id number] [address] [place] [address] Oct, Anticoagulant long-term use Z79.01 [place] [address] [facility] [id number] [address] [place] [address] Oct, [facility] [address] [facility] [id number] [address] [place] [address] Sep, Anticoagulant long-term use Z79.[address] [facility] [address] [id number], [place] [id number] Sep, Anticoagulant long-term use Z79.01 [facility] [address] [facility] [id number] [address] [place] [address] Sep, Other chronic pain G89.29 [place] [address] [facility] [id number] [address] [place] [address] Sep, Anticoagulant long-term use Z79.[address] [facility] [place] [address] [id number], [place] [id number] Sep, Anticoagulant long-term use Z79.01 [place] [address] [facility] [id number] [address] [place] [address] Aug, Anticoagulant long-term use Z79.01 [place] [address] [facility] [id number] [address] [place] [address] Aug, Anticoagulant long-term use Z79.01 [place] [address] [facility] [id number] [address] [place] [id number] Aug, Other chronic pain G89.29 [place] [address] [facility] [id number] [address] [place] [address] Aug, Other chronic pain G89.29 ; Anticoagulant long-term use Z79.01 ; 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.09X0 ; Oral pain K13.79 ; Dental infection K04.7 ; Essential hypertension I10 and Pure hypercholesterolemia E78.00 [facility] [address] [facility] [id number] [address] [place] [address] July, Other chronic pain G89.29 [facility] [address] [facility] [id number] [address] [place] [address] Jun, Other chronic pain G89.29 [facility] [address] [facility] [id number] [address] [place] [address] Jun, [facility] [address] [facility] [id number] [address] [place] [address] Jun, [facility] [address] [id number], [place] [id number] Jun, Anticoagulant long-term use Z79.01 and I diopathic chronic gout of multiple sites without tophus M1A.09X0 [facility] [address] [facility] [id number] [address] [place] [address] May, Other chronic pain G89.29 [facility] [address] [facility] [id number] [address] [place] [address] May, [facility] [address] [facility] [id number] [address] [place] [address] May, Anticoagulant long-term use Z79.01 [facility] [address] [facility] [id number] [address] [place] [address] May, [facility] [address] [id number][place] [id number] May, Anticoagulant long-term use Z79.01 [facility] [address] [facility] [id number] [address] [place] [id number] May, Anticoagulant long-term use Z79.01 [facility] [address] [facility] [id number] [address] [place] [address] May, Anticoagulant long-term use Z79.01 [facility] [address] [id number], [place] [id number] May, Factor V Leiden D68.51 [facility] [address] [facility] [id number] [address] [place] [address] Apr, Other chronic pain G89.29 [facility] [address] [facility] [id number] [address] [place] [address] Apr, Idiopathic chronic gout of m ultiple sites without tophus M1A.09X0 [facility] [address] [id number], [place] [id number] Apr, Anticoagulant long-term use Z79.01 [facility] [address] [id number], [place] [id number] Apr, Anticoagulant long-term use Z79.01 ; Med ication side effect T88.7XXA and 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.09X0 [place] [address] [place] [address] Apr, [place] [address] [place] [id number] [place] [address] Apr, Anticoagulant long-term use Z79.01 [place] [address] [place] [id number] [address] [place] [address] Apr, Medication side effect T88.7 XXA and Factor V Leiden D68.51 [place] [address] [place] [address] Apr, Idiopathic chronic gout of ultiple sites without tophus M1A.09X0 and Anticoagulant long-term use Z79.01 [facility] [place] [address] [id number], [place] [id number] Mar, Factor V Leiden D68.51 and Anticoagulant long-term use Z79.01 [place] [address] [facility] [id number] [address] [place] [address] Mar, Factor V Leiden D68.51 ; Ant icoagulant long-term use Z79.01 ; 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.09X0 ; Pure hypercholesterolemia E78.00 ; Other chronic pain G89.29 and BMI 40.0-44.9, adult Z68.41 [place] [address] [facility] [id number] [address] [place] [address] Mar, [facility] [address] [facility] [id number] [address] [place] [address] Mar, Other chronic pain G89.29 [facility] [address] [facility] [id number] [address] [place] [address] Feb, Idiopathic chronic gout of m ultiple sites without tophus M1A.09X0 [place] [address] [facility] [address] [id number], [place] [id number] Feb, Anticoagulant long-term use Z79.01 and I diopathic chronic gout of multiple sites without tophus M1A.09X0 [place] [address] [facility] [id number] [address] [place] [address] 05 Feb, 2018 Anticoagulant long-term use Z79.01 and 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.09X0 [place] [address] [facility] [id number] [address] [place] [address] Feb, [facility] [address] [facility] [id number] [address] [place] [address] Feb, Other chronic pain G89.29 [place] [address] [facility] [id number] [address] [place] [address] Jan, Other chronic pain G89.29 [place] [address] [facility] [id number] [address] [place] [address] Dec, Other chronic pain G89.29 [place] [address] [facility] [id number] [address] [place] [address] Dec, Anticoagulant long-term use Z79.01 [place] [address] [facility] [id number] [address] [place] [address] Dec, Chronic prescription opiate use Z79.899 ; Factor V Leiden D68.51 ; Other chronic pain G89.29 and Anticoagulant long-term use Z79.01 [place] [address] [facility] [id number] [address] [place] [address] Nov, Other chronic pain G89.29 [facility] [address] [facility] [id number] [address] [place] [address] Oct, Other chronic pain G89.29 [facility] [address] [facility] [id number] [address] [place] [address] Sep, Other chronic pain G89.29 [facility] [address] [facility] [id number] [address] [place] [address] Aug, Other chronic pain G89.29 [facility] [address] [facility] [id number] [address] [place] [address] Aug, Venous stasis ulcers, left I 83.029 [facility] [address] [facility] [id number] [address] [place] [address] July, Other chronic pain G89.29 [facility] [address] [facility] [id number] [address] [place] [address] July, Venous stasis ulcers, left I 83.029 and Snoring R06.83 [facility] [address] [facility] [id number] [address] [place] [address] Jun, Idiopathic chronic gout of m ultiple sites without tophus M1A.09X0 [facility] [address] [facility] [id number] [address] [place] [address] Jun, Acute renal insufficiency N2 8.9 [facility] [address] [facility] [id number] [address] [place] [address] Jun, Other chronic pain G89.29 [facility] [address] [facility] [id number] [address] [place] [address] Jun, Acute renal insufficiency N2 8.9 [facility] [id number] [place] [address] [id number] Jun, Idiopathic chronic gout of multiple site s without tophus M1A.09X0 ; Essential hypertension I10 and Anticoagulant long-term use Z79.01 [facility] [address] [address] Jun, Anticoagulant long-term use Z79.01 and Essential hypertension I10 [place] [address] [address] May, Idiopathic chronic gout of m ultiple sites without tophus M1A.09X0 [place] [address] [address] May, [place] [address] [address] May, Essential hypertension I10 ; Pure hypercholesterolemia E78.00 ; Anticoagulant long-term use Z79.01 and 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.09X0 [place] [address] [address] May, Other chronic pain G89.29 [place] [address] [address] May, Anticoagulant long-term use Z79.01 [place] [address] [address] May, Chronic prescription opiate use Z79.899 ; Other chronic pain G89.29 ; Essential hypertension I10 ; Factor V Leiden D68.51 ; Anticoagulant long-term use Z79.01 ; Pure hypercholesterolemia E78.00 ; Venous stasis ulcers, left I83.029 ; 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.09X0 and Cellulitis of left lower extremity L03.116 [place] [address] [place] [id number] [address] [place] [address] Apr, Other chronic pain G89.29 [place] [address] [place] [id number] [place] [address] Mar, Other chronic pain G89.29 [place] [address] [address] Mar, Factor V Leiden D68.51 ; Pur e hypercholesterolemia E78.00 and Other chronic pain G89.29 [place] [address] [place] [id number] [address] [place] [address] Feb, Other chronic pain G89.29 [place] [address] [facility] [id number] [address] [place] [address] Jan, Idiopathic chronic gout of m ultiple sites without tophus M1A.09X0 [place] [address] [facility] [id number] [address] [place] [address] 08 Jan, 2017 Other chronic pain G89.29 [place] [address] [place] [id number] [address] [place] [address] Dec, Anticoagulant long-term use Z79.01 ; Factor V Leiden D68.51 and Other chronic pain G89.29 [place] [address] [address] Dec, Other chronic pain G89.29 [place] [address] [place] [id number] [address] [place] [address] Nov, Other chronic pain G89.29 [place] [address] [place] [id number] [address] [place] [address] Oct, Other chronic pain G89.29 [place] [address] [place] [id number] [address] [place] [address] Sep, Anticoagulant long-term use Z79.01 [place] [address] [facility] [id number] [address] [place] [address] Sep, Chronic prescription opiate use Z79.899 ; Anticoagulant long-term use Z79.01 ; Essential hypertension I10 ; Pure hypercholesterolemia E78.00 ; Factor V Leiden D68.51 ; Venous stasis ulcers, left I83.029 ; Other chronic pain G89.29 and 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.09X0 [place] [address] [place] [id number] [address] [place] [id number] Aug, Anticoagulant long-term use Z79.01 [facility] [address] [facility] [id number] [address] [place] [id number] Aug, Other chronic pain G89.29 [facility] [address] [facility] [id number] [address] [place] [id number] Aug, Essential hypertension I10 a nd Factor V Leiden D68.[address] [place] [id number] [place] [id number] 15 Aug, 2016 Acute right ankle pain M25.571 and Tendo nitis of ankle M77.50 [facility] [address] [facility] [id number] [address] [place] [id number] Aug, [facility] [address] [facility] [id number] [address] [place] [phone] July, Other chronic pain G89.29 [facility] [address] [facility] [id number] [address] [place] [id number] Jun, Other chronic pain G89.29 [facility] [address] [facility] [id number] [address] [place] [phone] Jun, Other chronic pain G89.29 [facility] [address] [facility] [id number] [address] [place] [id number] Jun, Anticoagulant long-term use Z79.01 [facility] [address] [facility] [id number] [address] [place] [phone] May, Other chronic pain G89.29 [facility] [address] [id number] [address] [place] [id number] May, Anticoagulant long-term use Z79.01 [facility] [address] [facility] [id number] [address] [place] [phone] May, Other chronic pain G89.29 [facility] [address] [facility] [id number] [address] [place] [id number] Apr, Anticoagulant long-term use Z79.01 [facility] [address] [facility] [id number] [address] [place] [phone] Apr, Other chronic pain G89.29 [facility] [address] [facility] [id number] [address] [place] [address] Apr, Anticoagulant long-term use Z79.01 and Pure hypercholesterolemia E78.00 [place] [address] [place] [id number] [address] [place] [address] Mar, [place] [address] [facility] [id number] [place] [address] Mar, Anticoagulant long-term use Z79.01 [place] [address] [address] Mar, Other chronic pain G89.29 [place] [address] [address] Feb, Essential hypertension I10 ; Chronic prescription opiate use Z79.899 ; Other chronic pain G89.29 ; Screening Z13.9 ; Factor V Leiden D68.51 ; Anticoagulant long-term use Z79.01 ; Venous stasis dermatitis of left lower extremity I83.12 and Pure hypercholesterolemia E78.00 [place] [address] [place] [id number] [address] [place] [address] 14 Jan, 2016 Anticoagulant long-term use Z79.01 [place] [id number] [place] [address] Jan, Anticoagulant long-term use Z79.01 [place] [address] [facility] [id number] [address] [place] [address] Jan, [place] [id number] [place] [address] Jan, [place] [address] [place] [id number] [address] [place] [address] Dec, [place] [address] [address] Nov, [facility] [address] [facility] [id number] [address] [place] [address] Oct, Anticoagulant long-term use Z79.01 [facility] [address] [facility] [id number] [address] [place] [address] Oct, [facility] [address] [facility] [id number] [address] [place] [id number] Oct, Anticoagulant long-term use Z79.01 [facility] [address] [facility] [id number] [address] [place] [address] Sep, [facility] [address] [facility] [id number] [address] [place] [address] Aug, [facility] [address] [facility] [id number] [address] [place] [address] Aug, Chronic prescription opiate use Z79.899 ; Other chronic pain G89.29 ; Essential hypertension I10 and Pure hypercholesterolemia E78.0 [facility] [address] [facility] [id number] [address] [place] [id number] July, Hyperlipidemia, group D E78. 3 and Anticoagulant long-term use Z79.01 [facility] [address] [facility] [id number] [address] [place] [address] July, Hyperlipidemia, group D E78. 3 ; Essential hypertension I10 and Factor V Leiden D68.51 [facility] [address] [facility] [id number] [address] [place] [phone] July, Essential hypertension I10 [facility] [address] [facility] [id number] [address] [place] [phone] Jun, Hyperlipidemia, group D E78. 3 [facility] [address] [facility] [id number] [address] [place] [address] Jun, Factor V Leiden D68.51 [facility] [address] [facility] [id number] [address] [place] [address] May, Factor V Leiden D68.51 ; Hyp erlipidemia, group D E78.3 ; Essential hypertension I10 ; Other chronic pain G89.29 and Anticoagulant long-term use Z79.01 [facility] [address] [facility] [id number] [address] [place] [id number] 04 May, 2015 Anticoagulant long-term use Z79.01 [facility] [address] [facility] [id number] [address] [place] [id number] 04 May, 2015 Anticoagulant long-term use Z79.01 [facility] [address] [facility] [id number] [address] [place] [address] May, [facility] [address] [facility] [id number] [address] [place] [address] Apr, [facility] [address] [place] [id number] [address] [place] [address] Mar, [facility] [address] [facility] [id number] [address] [place] [address] Mar, [facility] [address] [facility] [id number] [address] [place] [address] Feb, Anticoagulant long-term use Z79.01 [facility] [address] [facility] [id number] [address] [place] [id number] 16 Feb, 2015 Chronic prescription opiate use Z79.899 ; Other chronic pain G89.29 ; Hyperlipidemia, group D E78.3 ; Factor V Leiden D68.51 and Anticoagulant long- term use Z79.01 [facility] [address] [facility] [id number] [address] [place] [id number] Feb, [facility] [address] [facility] [id number] [address] [place] [phone] Jan, [facility] [address] [facility] [id number] [address] [place] [address] Dec, Hyperlipidemia, unspecified E78.5 [facility] [address] [facility] [id number] [address] [place] [address] Dec, Cellulitis of left lower ext remity L03.116 ; Venous stasis ulcers, left I83.029 and Factor V Leiden D68.51 [facility] [address] [facility] [id number] [address] [place] [address] Dec, Hyperlipidemia 272.4 and Fac tor 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 [facility] [address] [facility] [id number] [address] [place] [address] Dec, [facility] [address] [facility] [id number] [address] [place] [address] Nov, 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 [facility] [address] [facility] [id number] [place] [address] Nov, [facility] [address] [address] Nov, [facility] [address] [id number] Nov, [facility] [address] [facility] [id number] [address] [place] [address] Oct, [facility] [address] [address] Oct, Hyperlipidemia 272.4 ; Chron ic pain disorder 338.4 ; Venous stasis ulcer of left lower extremity 454.0 and 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 [facility] [id number] [place] [id number] Sep, [facility] [address] [place] [id number] [address] [place] [address] Sep, [facility] [address] [address] Sep, Hyperlipidemia 272.4 and Fac tor 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 [facility] [address] [place] [id number] [place] [address] Aug, [facility] [address] [id number] [address] [place] [id number] 11 Aug, 2014 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 [facility] [address] [id number] [address] [place] [address] July, [facility] [address] [facility] [id number] [address] [place] [id number] July, Essential hypertension, fito gn 401.1 ; 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 ; Chronic pain disorder 338.4 ; Hyperlipidemia 272.4 and Venous stasis ulcer of left lower extremity 454.0 [facility] [address] [id number] [address] [place] [id number] 14 Jun, 2014 [facility] [address] [id number] [address] [place] [id number] Jun, [facility] [address] [facility] [id number] [address] [place] [phone] May, [facility] [address] [id number] [address] [place] [id number] May, [facility] [address] [id number] [address] [place] [phone] Apr, [facility] [address] [id number] [address] [place] [phone] Apr, [facility] [address] [id number] [address] [place] [id number] Apr, [facility] [address] [id number] [address] [place] [id number] Apr, [facility] [address] [id number] [address] [place] [id number] Apr, [facility] [address] [id number] [address] [place] [phone] Apr, [facility] [address] [facility] [id number] [address] [place] [id number] Mar, [facility] [address] [id number] [address] [place] [address], [place] [address] 15 Mar, 2014 [facility] [address] [id number] [address] [place] [address], [place] [address] Mar, [facility] [address] [id number] [address] [place] [address], [place] [address] Mar, [facility] [address] [id number] [address] [place] [address], [place] [address] Feb, [facility] [address] [id number] [address] [place] [address], [place] [address] 17 Feb, 2014 [facility] [address] [id number] [address] [place] [address], [place] [address] Feb, [facility] [address] [id number] [address] [place] [address], [place] [address] Feb, [facility] [address] [id number] [address] [place] [address], [place] [address] 24 Jan, 2014 [facility] [address] [id number] [address] [place] [address], [place] [address] Jan, [facility] [address] [id number] [address] [place] [address], [place] [address] Jan, [facility] [address] [id number] [address] [place] [address], [place] [address] Jan, [facility] [address] [id number] [address] [place] [address], [place] [address] 14 Jan, 2014 [facility] [address] [id number] [address] [place] [address], [place] [address] Jan, [facility] [address] [id number] [address] [place] [address], [place] [address] Dec, [facility] [address] [id number] [address] [place] [address], [place] [address] Dec, [facility] [address] [id number] [address] [place] [address], [place] [address] Oct, [facility] [address] [id number] [address] [place] [address], [place] [address] Oct, [facility] [address] [id number] [address] [place] [address], [place] [address] Sep, [facility] [address] [id number] [address] [place] [address], [place] [address] Sep, [facility] [address] [id number] [address] [place] [address], [place] [address] Sep, [facility] [address] [id number] [address] [place] [address], [place] [address] Sep, [facility] [address] [id number] [address] [place] [address], [place] [address] Aug, [facility] [address] [id number] [address] [place] [address], [place] [address] Aug, [facility] [address] [id number] [address] [place] [address], [place] [address] July, [facility] [address] [id number] [address] [place] [address], [place] [address] July, [facility] [address] [id number] [address] [place] [address], [place] [address] Jun, [facility] [address] [id number] [address] [place] [address], [place] [address] Jun, [facility] [address] [id number] [address] [place] [address], [place] [address] May, [facility] [address] [id number] [address] [place] [address], [place] [address] May, [facility] [address] [id number] [address] [place] [address], [place] [address] Apr, [facility] [address] [id number] [address] [place] [address], [place] [address] Apr, [facility] [address] [id number] [address] [place] [address], [place] [address] Mar, [facility] [address] [id number] [address] [place] [address], [place] [address] Mar, [facility] [address] [id number] [address] [place] [address], [place] [address] Jan, [facility] [address] [id number] [address] [place] [address], [place] [address] Jan, [facility] [address] [id number] [address] [place] [address], [place] [address] Jan, [facility] [address] [id number] [address] [place] [address], [place] [address] Jan, [facility] [address] [id number] [address] [place] [address], [place] [address] Jan, [facility] [address] [id number] [address] [place] [address], [place] [address] Dec, [facility] [address] [id number] [address] [place] [address], [place] [address] Dec, [facility] [address] [id number] [address] [place] [address], [place] [address] Dec, [facility] [address] [id number] [address] [place] [address], [place] [address] Nov, [facility] [address] [id number] [address] [place] [address], [place] [address] Nov, [facility] [address] [id number] [address] [place] [address], [place] [address] Sep, [facility] [address] [id number] [address] [place] [address], [place] [address] Sep, [facility] [address] [id number] [address] [place] [address], [place] [address] Aug, [facility] [address] [id number] [address] [place] [address], [place] [address] Aug, [facility] [address] [id number] [place] [id number] July, [facility] [address] [id number] [place] [id number] Jun, [facility] [address] [id number] [place] [id number] Apr, [facility] [address] [id number] [place] [id number] Mar, [facility] [address] [facility] [id number] [place] [address] Mar, [facility] [address] [id number] [place] [id number] Mar, [facility] [address] [facility] [id number] [address] [place] [address] Mar, [facility] [place] [address] [id number] [place] [id number] Feb, [facility] [address] [facility] [id number] [address] [place] [address] Feb, [facility] [address] [id number] [place] [id number] Feb, [facility] [address] [facility] [id number] [address] [place] [address] Feb, [facility] [address] [id number] [place] [id number] Oct, [facility] [address] [id number] [place] [id number] Oct, [facility] [address] [id number] [place] [id number] July, [facility] [address] [id number] [place] [id number] July, [facility] [address] [id number] [place] [id number] Jun, [facility] [address] [id number] [place] [id number] Jun, [facility] [address] [id number] [place] [id number] Jun, [facility] [address] [id number] [place] [id number] Mar, [facility] [address] [id number] [place] [id number] Mar, [facility] [address] [facility] [id number] [address] [place] [address] Feb, [facility] [address] [id number] [address] [place] [address] Feb, [facility] [address] [facility] [id number] [address] [place] [address] Jan, [facility] [address] [facility] [id number] [address] [place] [address] Jan, [facility] [address] [facility] [id number] [address] [place] [address] Jan, [facility] [address] [facility] [id number] [address] [place] [address] Jan, [facility] [address] [facility] [id number] [address] [place] [address] Jan, [facility] [address] [facility] [id number] [address] [place] [address] Aug, [facility] [address] [facility] [id number] [address] [place] [address] Apr, IMMUNIZATIONS No Known Immunizations SOCIAL HISTORY Never Assessed REASON FOR VISIT INR rachid jansen PLAN OF CARE VITAL SIGNS MEDICATIONS Unknown Medications RESULTS No Results PROCEDURES Procedure Date Ordered Result Body Site VENIPUNCT, ROUTINE* June 25, 2018 ASSAY OF BLOOD/URIC ACID June 25, 2018 BASIC METABOLIC PANEL June 25, 2018 PROTHROMBIN TIME June 25, 2018 INSTRUCTIONS MEDICATIONS ADMINISTERED No Known Medications MEDICAL [...]
--- OUTSIDE RECORDS SUMMARY | 2019-11-08 12:58 | XMS REPORT ---
Author Author Zana ORTIZ [facility] Address [address] [place] [address] Care Team Providers Care Financial Cost Analyst Name Role Phone AVANI ORTIZ Unavailable PROBLEMS Type Condition ICD9-CM Code ZVH29-UP Code Onset Dates Condition S tatus SNOMED Code Problem Factor V Leiden D68.51 Active 3070 65408 Problem Anticoagulant long-term use Z79.01 Ac tive 380438487 Problem Post-phlebitic syndrome I87.009 Active 64494986 Problem 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 38680965 Problem Other chronic pain G89.29 Active 8 1855326 Problem Venous stasis ulcers, left I83.029 Act ozzy 533454715 Problem Essential hypertension I10 Active 03217352 Problem Venous anomaly Q27.9 Active 83937 4003 Problem Congenital single kidney Q60.0 Activ e 13443269 Problem Chronic prescription opiate use Z79.899 Active 696621660 Problem Pure hypercholesterolemia E78.00 Acti ve [id number] ALLERGIES No Information ENCOUNTERS Encounter Location Date Diagnosis [place] [id number] [id number] [id number] May, Anticoagulant long-term use Z79.01 [facility] [place] [address] [facility] [id number] [address] [place] [phone] May, Other chronic pain G89.29 [facility] [place] [address] [facility] [id number] [address] [place] [phone] May, Anticoagulant long-term use Z79.[address] [facility] [address] [id number], [place] [id number] Apr, Anticoagulant long-term use Z79.01 [facility] [place] [address] [facility] [id number] [address] [place] [phone] Apr, Other chronic pain G89.29 [place] [address] [facility] [id number] [address] [place] [phone] 19 Apr, 2019 Anticoagulant long-term use Z79.01 [facility] [address] [id number], [place] [id number] Apr, Anticoagulant long-term use Z79.01 [facility] [id number] [place] [id number] Apr, Factor V Leiden D68.51 [place] [address] [facility] [id number] [address] [place] [phone] Mar, Anticoagulant long-term use Z79.01 [place] [address] [facility] [id number] [address] [place] [phone] Mar, Factor V Leiden D68.51 [place] [address] [facility] [id number] [address] [place] [phone] Mar, Occult blood positive stool R19.5 [place] [address] [facility] [id number] [address] [place] [phone] Mar, Other chronic pain G89.29 [place] [address] [facility] [id number] [address] [place] [phone] Mar, Factor V Leiden D68.51 and A nticoagulant long-term use Z79.[address] [facility] [id number] [place] [id number] Mar, Anticoagulant long-term use Z79.[address] [facility] [id number] [place] [id number] Mar, Anticoagulant long-term use Z79.01 [place] [address] [facility] [id number] [address] [place] [address] Mar, Anticoagulant long-term use Z79.01 [place] [address] [facility] [id number] [address] [place] [address] Mar, Pure hypercholesterolemia E7 8.00 [facility] [address] [id number][place] [id number] Mar, Anticoagulant long-term use Z79.01 [facility] [place] [address] [facility] [id number] [address] [place] [id number] Mar, Other chronic pain G89.29 [facility] [place] [address] [facility] [id number] [address] [place] [phone] Feb, Anticoagulant long-term use Z79.01 and Essential hypertension I10 [place] [address] [facility] [id number] [address] [place] [phone] Feb, Anticoagulant long-term use Z79.01 ; Essential hypertension I10 ; Chronic prescription opiate use Z79.899 ; Other chronic pain G89.29 ; Venous stasis ulcers, left I83.029 ; 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.09X0 and Pure hypercholesterolemia E78.[address] [facility] [address] [id number], [place] [id number] Feb, Anticoagulant long-term use Z79.01 [facility] [place] [address] [facility] [id number] [address] [place] [phone] Feb, Anticoagulant long-term use Z79.01 [place] [address] [facility] [id number] [address] [place] [address] Feb, Other chronic pain G89.29 [facility] [address] [id number], [place] [id number] Feb, Anticoagulant long-term use Z79.01 [facility] [place] [address] [facility] [id number] [address] [place] [address] Jan, Anticoagulant long-term use Z79.[address] [facility] [address] [id number], [place] [id number] Jan, Anticoagulant long-term use Z79.[address] [facility] [address] [id number], [place] [id number] Jan, Anticoagulant long-term use Z79.01 [facility] [place] [address] [facility] [id number] [address] [place] [phone] Jan, Anticoagulant long-term use Z79.[address] [facility] [address] [id number], [place] [id number] Jan, Anticoagulant long-term use Z79.01 [facility] [place] [address] [facility] [id number] [address] [place] [address] Jan, Anticoagulant long-term use Z79.[address] [facility] [address] [id number], [place] [id number] Jan, Anticoagulant long-term use Z79.01 [facility] [place] [address] [facility] [id number] [address] [place] [phone] Jan, [facility] [address] [id number], [place] [id number] Jan, Anticoagulant long-term use Z79.01 [facility] [place] [address] [facility] [id number] [address] [place] [phone] Jan, [facility] [place] [address] [facility] [id number] [address] [place] [phone] Jan, Other chronic pain G89.29 [facility] [place] [address] [facility] [id number] [address] [place] [phone] Jan, Anticoagulant long-term use Z79.[address] [facility] [address] [id number], [place] [id number] Dec, Anticoagulant long-term use Z79.01 [facility] [place] [address] [facility] [id number] [address] [place] [address] Dec, Anticoagulant long-term use Z79.[address] [facility] [address] [id number], [place] [id number] Dec, Anticoagulant long-term use Z79.[address] [facility] [address] [id number] [place] [id number] Dec, Anticoagulant long-term use Z79.01 [facility] [place] [address] [facility] [id number] [address] [place] [phone] Dec, Anticoagulant long-term use Z79.01 [facility] [place] [address] [facility] [id number] [address] [place] [phone] Dec, Anticoagulant long-term use Z79.01 [facility] [place] [address] [facility] [id number] [address] [place] [address] Dec, Anticoagulant long-term use Z79.01 [facility] [place] [address] [facility] [id number] [address] [place] [phone] Dec, Other chronic pain G89.29 [facility] [place] [address] [facility] [id number] [address] [place] [phone] Dec, Anticoagulant long-term use Z79.01 [facility] [place] [address] [facility] [id number] [address] [place] [id number] Dec, [facility] [place] [address] [facility] [id number] [address] [place] [address] Dec, Other chronic pain G89.29 [facility] [address] [id number], [place] [id number] Dec, Anticoagulant long-term use Z79.01 [facility] [place] [address] [facility] [id number] [address] [place] [phone] Nov, Anticoagulant long-term use Z79.01 [facility] [address] [id number], [place] [id number] Nov, Anticoagulant long-term use Z79.01 [facility] [place] [address] [facility] [id number] [address] [place] [address] Nov, Anticoagulant long-term use Z79.01 [facility] [place] [address] [facility] [id number] [address] [place] [phone] Nov, Other chronic pain G89.29 [facility] [place] [address] [facility] [id number] [address] [place] [phone] Nov, Other chronic pain G89.29 [facility] [place] [address] [facility] [id number] [address] [place] [address] Nov, Anticoagulant long-term use Z79.01 [facility] [address] [id number], [place] [id number] Nov, Factor V Leiden D68.51 [facility] [address] [id number], [place] [id number] Nov, Factor V Leiden D68.51 [facility] [place] [address] [facility] [id number] [address] [place] [phone] Nov, Anticoagulant long-term use Z79.01 [facility] [id number] [place] [id number] Nov, Anticoagulant long-term use Z79.01 [facility] [place] [address] [facility] [id number] [address] [place] [address] Nov, Essential hypertension I10 ; Factor V Leiden D68.51 and Anticoagulant long-term use Z79.01 [facility] [address] [id number], [place] [id number] Oct, Anticoagulant long-term use Z79.01 [facility] [place] [address] [facility] [id number] [address] [place] [phone] Oct, [facility] [place] [address] [facility] [id number] [address] [place] [phone] Oct, Anticoagulant long-term use Z79.01 [facility] [place] [address] [facility] [id number] [address] [place] [phone] Oct, Other chronic pain G89.29 [facility] [place] [address] [facility] [id number] [address] [place] [phone] Oct, Anticoagulant long-term use Z79.01 [facility] [place] [address] [facility] [id number] [address] [place] [phone] Oct, [facility] [place] [address] [facility] [id number] [address] [place] [phone] Sep, Anticoagulant long-term use Z79.01 [facility] [address] [id number], [place] [id number] Sep, Anticoagulant long-term use Z79.01 [place] [address] [facility] [id number] [address] [place] [phone] Sep, Other chronic pain G89.29 [place] [address] [facility] [id number] [address] [place] [phone] Sep, Anticoagulant long-term use Z79.[address] [facility] [address] [id number], [place] [id number] Sep, Anticoagulant long-term use Z79.01 [place] [address] [facility] [id number] [address] [place] [address] Aug, Anticoagulant long-term use Z79.01 [place] [address] [facility] [id number] [address] [place] [phone] Aug, Anticoagulant long-term use Z79.01 [place] [address] [facility] [id number] [address] [place] [phone] Aug, Other chronic pain G89.29 [place] [address] [facility] [id number] [address] [place] [address] Aug, Other chronic pain G89.29 ; Anticoagulant long-term use Z79.01 ; 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.09X0 ; Oral pain K13.79 ; Dental infection K04.7 ; Essential hypertension I10 and Pure hypercholesterolemia E78.00 [place] [address] [facility] [id number] [address] [place] [phone] July, Other chronic pain G89.29 [place] [address] [facility] [id number] [address] [place] [phone] Jun, Other chronic pain G89.29 [facility] [place] [address] [id number] [address] [place] [phone] Jun, [facility] [place] [address] [facility] [id number] [address] [place] [phone] Jun, [facility] [address] [id number], [place] [id number] Jun, Anticoagulant long-term use Z79.01 and I diopathic chronic gout of multiple sites without tophus M1A.09X0 [facility] [place] [address] [facility] [id number] [address] [place] [phone] May, Other chronic pain G89.29 [facility] [place] [address] [facility] [id number] [address] [place] [phone] May, [facility] [place] [address] [facility] [id number] [address] [place] [address] May, Anticoagulant long-term use Z79.01 [facility] [place] [address] [facility] [id number] [address] [place] [phone] May, [facility] [address] [id number], [place] [id number] May, Anticoagulant long-term use Z79.01 [facility] [place] [address] [facility] [id number] [address] [place] [phone] May, Anticoagulant long-term use Z79.01 [facility] [place] [address] [facility] [id number] [address] [place] [phone] May, Anticoagulant long-term use Z79.01 [facility] [address] [id number], [place] [id number] May, Factor V Leiden D68.51 [facility] [place] [address] [facility] [id number] [address] [place] [phone] Apr, Other chronic pain G89.29 [facility] [place] [address] [facility] [id number] [address] [place] [phone] Apr, Idiopathic chronic gout of m ultiple sites without tophus M1A.09X[facility] [address] [id number], [place] [id number] Apr, Anticoagulant long-term use Z79.01 [facility] [address] [address] [address] [id number], [place] [id number] Apr, Anticoagulant long-term use Z79.01 ; Med ication side effect T88.7XXA and 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.09X0 [place] [address] [facility] [id number] [address] [place] [id number] Apr, [place] [address] [place] [id number] [address] [place] [address] Apr, Anticoagulant long-term use Z79.01 [place] [address] [place] [id number] [address] [place] [address] Apr, Medication side effect T88.7 XXA and Factor V Leiden D68.51 [place] [address] [place] [id number] [address] [place] [phone] Apr, Idiopathic chronic gout of m ultiple sites without tophus M1A.09X0 and Anticoagulant long-term use Z79.[address] [facility] [address] [address] [id number], [place] [id number] Mar, Factor V Leiden D68.51 and Anticoagulant long-term use Z79.01 [place] [address] [facility] [id number] [address] [place] [address] Mar, Factor V Leiden D68.51 ; Ant icoagulant long-term use Z79.01 ; 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.09X0 ; Pure hypercholesterolemia E78.00 ; Other chronic pain G89.29 and BMI 40.0-44.9, adult Z68.41 [place] [address] [place] [id number] [address] [place] [phone] Mar, [facility] [place] [address] [facility] [id number] [address] [place] [address] Mar, Other chronic pain G89.29 [facility] [place] [address] [facility] [id number] [address] [place] [phone] Feb, Idiopathic chronic gout of m ultiple sites without tophus M1A.09X0 [facility] [address] [id number], [place] [id number] Feb, Anticoagulant long-term use Z79.01 and I diopathic chronic gout of multiple sites without tophus M1A.09X0 [place] [address] [facility] [id number] [address] [place] [address] Feb, Anticoagulant long-term use Z79.01 and 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.09X0 [place] [address] [facility] [id number] [address] [place] [phone] Feb, [facility] [place] [address] [facility] [id number] [address] [place] [phone] Feb, Other chronic pain G89.29 [place] [address] [facility] [id number] [address] [place] [address] Jan, Other chronic pain G89.29 [place] [address] [facility] [id number] [address] [place] [address] Dec, Other chronic pain G89.29 [facility] [place] [address] [facility] [id number] [address] [place] [address] Dec, Anticoagulant long-term use Z79.01 [facility] [place] [address] [facility] [id number] [address] [place] [phone] Dec, Chronic prescription opiate use Z79.899 ; Factor V Leiden D68.51 ; Other chronic pain G89.29 and Anticoagulant long-term use Z79.01 [facility] [place] [address] [facility] [id number] [address] [place] [phone] Nov, Other chronic pain G89.29 [facility] [place] [address] [facility] [id number] [address] [place] [phone] Oct, Other chronic pain G89.29 [facility] [place] [address] [facility] [id number] [address] [place] [phone] Sep, Other chronic pain G89.29 [facility] [place] [address] [facility] [id number] [address] [place] [phone] Aug, Other chronic pain G89.29 [facility] [place] [address] [facility] [id number] [address] [place] [address] Aug, Venous stasis ulcers, left I 83.029 [facility] [place] [address] [facility] [id number] [address] [place] [phone] July, Other chronic pain G89.29 [facility] [place] [address] [facility] [id number] [address] [place] [phone] July, Venous stasis ulcers, left I 83.029 and Snoring R06.83 [facility] [place], [facility] [address] [facility] [id number] [address] [place] [phone] Jun, Idiopathic chronic gout of m ultiple sites without tophus M1A.09X0 [facility], [place], [facility] [address] [facility] [id number] [address] [place] [phone] Jun, Acute renal insufficiency N2 8.9 [facility], [place], [facility] [address] [facility] [id number] [address] [place] [phone] Jun, Other chronic pain G89.29 [facility], [place], [facility] [address] [facility] [id number] [address] [place] [phone] Jun, Acute renal insufficiency N2 8.9 [facility] [id number] [place] [id number] Jun, Idiopathic chronic gout of multiple site s without tophus M1A.09X0 ; Essential hypertension I10 and Anticoagulant long-term use Z79.01 [place] [address] [facility] [id number] [address] [place] [phone] 05 Jun, 2017 Anticoagulant long-term use Z79.01 and Essential hypertension I10 [place] [address] [facility] [id number] [address] [place] [phone] May, Idiopathic chronic gout of m ultiple sites without tophus M1A.09X0 [place] [address] [facility] [id number] [address] [place] [phone] May, [place] [address] [facility] [id number] [address] [place] [phone] May, Essential hypertension I10 ; Pure hypercholesterolemia E78.00 ; Anticoagulant long-term use Z79.01 and 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.09X0 [place] [address] [place] [id number] [address] [place] [phone] May, Other chronic pain G89.29 [place] [address] [place] [id number] [address] [place] [phone] May, Anticoagulant long-term use Z79.01 [place] [address] [place] [id number] [place] [phone] May, Chronic prescription opiate use Z79.899 ; Other chronic pain G89.29 ; Essential hypertension I10 ; Factor V Leiden D68.51 ; Anticoagulant long-term use Z79.01 ; Pure hypercholesterolemia E78.00 ; Venous stasis ulcers, left I83.029 ; 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.09X0 and Cellulitis of left lower extremity L03.116 [place] [address] [place] [id number] [address] [place] [address] Apr, Other chronic pain G89.29 [place] [address] [place] [id number] [address] [place] [address] Mar, Other chronic pain G89.29 [place] [address] [place] [id number] [address] [place] [id number] Mar, Factor V Leiden D68.51 ; Pur e hypercholesterolemia E78.00 and Other chronic pain G89.29 [place] [address] [facility] [id number] [address] [place] [address] Feb, Other chronic pain G89.29 [place] [address] [place] [id number] [address] [place] [phone] Jan, Idiopathic chronic gout of m ultiple sites without tophus [id number] [place] [address] [facility] [id number] [address] [place] [id number] 08 Jan, 2017 Other chronic pain G89.29 [place] [address] [facility] [id number] [address] [place] [phone] Dec, Anticoagulant long-term use Z79.01 ; Factor V Leiden D68.51 and Other chronic pain G89.29 [place] [address] [place] [id number] [address] [place] [phone] Dec, Other chronic pain G89.29 [place] [address] [facility] [id number] [address] [place] [address] Nov, Other chronic pain G89.29 [place] [address] [facility] [id number] [address] [place] [phone] Oct, Other chronic pain G89.29 [place] [address] [place] [id number] [address] [place] [id number] Sep, Anticoagulant long-term use Z79.01 [place] [address] [facility] [id number] [address] [place] [id number] Sep, Chronic prescription opiate use Z79.899 ; Anticoagulant long-term use Z79.01 ; Essential hypertension I10 ; Pure hypercholesterolemia E78.00 ; Factor V Leiden D68.51 ; Venous stasis ulcers, left I83.029 ; Other chronic pain G89.29 and 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 [place] [address] [facility] [id number] [address] [place] [id number] Aug, Anticoagulant long-term use Z79.01 [facility] [place] [address] [facility] [id number] [address] [place] [id number] Aug, Other chronic pain G89.29 [facility] [place] [address] [facility] [id number] [address] [place] [phone] Aug, Essential hypertension I10 a nd Factor V Leiden D68.[id number] [place] [id number] 15 Aug, 2016 Acute right ankle pain M25.571 and Tendo nitis of ankle M77.50 [facility] [place] [address] [facility] [id number] [address] [place] [phone] Aug, [facility] [place] [address] [facility] [id number] [address] [place] [phone] July, Other chronic pain G89.29 [facility] [place] [address] [facility] [id number] [address] [place] [phone] Jun, Other chronic pain G89.29 [facility] [place] [address] [facility] [id number] [address] [place] [phone] Jun, Other chronic pain G89.29 [facility] [place] [address] [facility] [id number] [address] [place] [phone] Jun, Anticoagulant long-term use Z79.01 [facility] [place] [address] [facility] [id number] [address] [place] [id number] May, Other chronic pain G89.29 [facility] [place] [address] [facility] [id number] [address] [place] [id number] May, Anticoagulant long-term use Z79.01 [facility] [place] [address] [facility] [id number] [address] [place] [phone] May, Other chronic pain G89.29 [facility] [place] [address] [facility] [id number] [address] [place] [id number] Apr, Anticoagulant long-term use Z79.01 [facility] [place] [address] [facility] [id number] [address] [place] [phone] Apr, Other chronic pain G89.29 [facility] [place] [address] [facility] [id number] [address] [place] [address] Apr, Anticoagulant long-term use Z79.01 and Pure hypercholesterolemia E78.00 [place] [address] [place] [id number] [address] [place] [phone] Mar, [place] [address] [place] [id number] [address] [place] [address] Mar, Anticoagulant long-term use Z79.01 [place] [address] [place] [id number] [address] [place] [address] Mar, Other chronic pain G89.29 [place] [address] [place] [id number] [address] [place] [address] Feb, Essential hypertension I10 ; Chronic prescription opiate use Z79.899 ; Other chronic pain G89.29 ; Screening Z13.9 ; Factor V Leiden D68.51 ; Anticoagulant long-term use Z79.01 ; Venous stasis dermatitis of left lower extremity I83.12 and Pure hypercholesterolemia E78.00 [place] [address] [place] [id number] [address] [place] [id number] 14 Jan, 2016 Anticoagulant long-term use Z79.01 [place] [address] [facility] [id number] [address] [place] [id number] Jan, Anticoagulant long-term use Z79.01 [place] [address] [facility] [id number] [address] [place] [phone] Jan, [place] [address] [place] [id number] [address] [place] [phone] Jan, [place] [address] [place] [id number] [address] [place] [phone] Dec, [place] [address] [place] [id number] [address] [place] [id number] 14 Nov, 2015 [facility] [place] [address] [facility] [id number] [address] [place] [address] Oct, Anticoagulant long-term use Z79.01 [facility] [place] [address] [facility] [id number] [address] [place] [phone] Oct, [facility] [place] [address] [facility] [id number] [address] [place] [phone] Oct, Anticoagulant long-term use Z79.01 [facility] [place] [address] [id number] [address] [place] [phone] Sep, [facility] [place] [address] [facility] [id number] [address] [place] [phone] Aug, [facility] [place] [address] [facility] [id number] [address] [place] [id number] Aug, Chronic prescription opiate use Z79.899 ; Other chronic pain G89.29 ; Essential hypertension I10 and Pure hypercholesterolemia E78.0 [facility] [place] [address] [facility] [id number] [address] [place] [phone] July, Hyperlipidemia, group D E78. 3 and Anticoagulant long-term use Z79.01 [facility] [place] [address] [facility] [id number] [address] [place] [phone] July, Hyperlipidemia, group D E78. 3 ; Essential hypertension I10 and Factor V Leiden D68.51 [facility] [place] [address] [facility] [id number] [address] [place] [phone] July, Essential hypertension I10 [facility] [place] [address] [facility] [id number] [address] [place] [id number] Jun, Hyperlipidemia, group D E78. 3 [facility] [place] [address] [facility] [id number] [address] [place] [phone] Jun, Factor V Leiden D68.51 [facility] [place] [address] [facility] [id number] [address] [place] [address] May, Factor V Leiden D68.51 ; Hyp erlipidemia, group D E78.3 ; Essential hypertension I10 ; Other chronic pain G89.29 and Anticoagulant long-term use Z79.01 [facility] [place] [address] [facility] [id number] [address] [place] [phone] 04 May, 2015 Anticoagulant long-term use Z79.01 [facility] [place] [address] [facility] [id number] [address] [place] [id number] 04 May, 2015 Anticoagulant long-term use Z79.01 [facility] [place] [address] [facility] [id number] [address] [place] [phone] May, [facility] [place] [address] [facility] [id number] [address] [place] [phone] Apr, [facility] [place] [address] [place] [id number] [place] [phone] Mar, [facility] [place] [address] [place] [id number] [address] [place] [phone] Mar, [facility] [place] [address] [facility] [id number] [place] [id number] Feb, Anticoagulant long-term use Z79.01 [facility] [place] [address] [facility] [id number] [address] [place] [id number] 16 Feb, 2015 Chronic prescription opiate use Z79.899 ; Other chronic pain G89.29 ; Hyperlipidemia, group D E78.3 ; Factor V Leiden D68.51 and Anticoagulant long- term use Z79.01 [facility] [place] [address] [facility] [id number] [address] [place] [id number] 04 Feb, 2015 [facility] [place] [address] [facility] [id number] [place] [id number] 05 Jan, 2015 [facility] [place] [address] [facility] [id number] [address] [place] [phone] 15 Dec, 2014 Hyperlipidemia, unspecified E78.5 [facility] [place] [id number] [place] [address] Dec, Cellulitis of left lower ext remity L03.116 ; Venous stasis ulcers, left I83.029 and Factor V Leiden D68.51 [facility] [place] [address] [place] [id number] [address] [place] [phone] Dec, Hyperlipidemia 272.4 and Fac tor 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 [facility] [place] [address] [address] Dec, [facility] [place] [address] [place] [id number] [place] [phone] Nov, 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 [facility] [place] [address] [address] Nov, [facility] [place] [address] [address] Nov, [facility] [place] [address] [address] Nov, [facility] [place] [address] [address] Oct, [facility] [place] [address] [address] Oct, Hyperlipidemia 272.4 ; Chron ic pain disorder 338.4 ; Venous stasis ulcer of left lower extremity 454.0 and 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 [facility] [place] [address] [place] [id number] [address] [place] [phone] Sep, [facility] [place] [address] [address] Sep, [facility] [place] [address] [address] Sep, Hyperlipidemia 272.4 and Fac tor 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 [facility] [place] [address] [address] Aug, [facility] [place] [address] [id number] [address] [place] [phone] Aug, 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 [facility] [place] [address] [id number] [address] [place] [phone] July, [facility] [place] [address] [facility] [id number] [address] [place] [phone] July, Essential hypertension, fito gn 401.1 ; 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 ; Chronic pain disorder 338.4 ; Hyperlipidemia 272.4 and Venous stasis ulcer of left lower extremity 454.0 [facility] [place] [address] [id number] [address] [place] [phone] Jun, [facility] [place] [address] [facility] [id number] [address] [place] [phone] Jun, [facility] [place] [address] [facility] [id number] [address] [place] [phone] May, [facility] [place] [address] [id number] [address] [place] [phone] May, [facility] [place] [address] [id number] [address] [place] [id number] Apr, [facility] [place] [address] [facility] [id number] [address] [place] [phone] Apr, [facility] [place] [address] [id number] [address] [place] [phone] Apr, [facility] [place] [address] [id number] [address] [place] [phone] Apr, [facility] [place] [address] [id number] [address] [place] [phone] Apr, [facility] [place] [address] [id number] [address] [place] [phone] Apr, [facility] [place] [address] [facility] [id number] [address] [place] [phone] Mar, [facility] [address] [id number] [address] [place] [address], [place] [address] 15 Mar, 2014 [facility] [address] [id number] [address] [place] [address], [place] [address] Mar, [facility] [address] [id number] [address] [place] [address], [place] [address] Mar, [facility] [address] [id number] [address] [place] [address], [place] [address] 17 Feb, 2014 [facility] [address] [id number] [address] [place] [address], [place] [address] 17 Feb, 2014 [facility] [address] [id number] [address] [place] [address], [place] [address] 16 Feb, 2014 [facility] [address] [id number] [address] [place] [address], [place] [address] Feb, [facility] [address] [id number] [address] [place] [address], [place] [id number] 24 Jan, 2014 [facility] [address] [id number] [address] [place] [address], [place] [address] Jan, [facility] [address] [id number] [address] [place] [address], [place] [address] Jan, [facility] [address] [id number] [address] [place] [address], [place] [address] Jan, [facility] [address] [id number] [address] [place] [address], [place] [address] Jan, [facility] [address] [id number] [address] [place] [address], [place] [id number] Jan, [facility] [address] [id number] [address] [place] [address], [place] [id number] Dec, [facility] [address] [id number] [address] [place] [address], [place] [address] Dec, [facility] [address] [id number] [address] [place] [address], [place] [address] Oct, [facility] [address] [id number] [address] [place] [address], [place] [address] Oct, [facility] [address] [id number] [address] [place] [address], [place] [address] Sep, [facility] [address] [id number] [address] [place] [address], [place] [address] Sep, [facility] [address] [id number] [address] [place] [address], [place] [address] Sep, [facility] [address] [id number] [address] [place] [address], [place] [address] Sep, [facility] [address] [id number] [address] [place] [address], [place] [address] Aug, [facility] [address] [id number] [address] [place] [address], [place] [address] Aug, [facility] [address] [id number] [address] [place] [address], [place] [address] July, [facility] [address] [id number] [address] [place] [address], [place] [address] July, [facility] [address] [id number] [address] [place] [address], [place] [address] Jun, [facility] [address] [id number] [address] [place] [address], [place] [address] Jun, [facility] [address] [id number] [address] [place] [address], [place] [address] May, [facility] [address] [id number] [address] [place] [address], [place] [address] May, [facility] [address] [id number] [address] [place] [address], [place] [address] Apr, [facility] [address] [id number] [address] [place] [address], [place] [id number] Apr, [facility] [address] [id number] [address] [place] [address], [place] [address] Mar, [facility] [address] [id number] [address] [place] [address], [place] [address] Mar, [facility] [address] [id number] [address] [place] [address], [place] [address] Jan, [facility] [address] [id number] [address] [place] [address], [place] [address] Jan, [facility] [address] [id number] [address] [place] [address], [place] [address] Jan, [facility] [address] [id number] [address] [place] [address], [place] [address] Jan, [facility] [address] [id number] [address] [place] [address], [place] [id number] Jan, [facility] [address] [id number] [address] [place] [address], [place] [id number] Dec, [facility] [address] [id number] [address] [place] [address], [place] [address] Dec, [facility] [address] [id number] [address] [place] [address], [place] [id number] Dec, [facility] [address] [id number] [address] [place] [address], [place] [id number] Nov, [facility] [address] [id number] [address] [place] [address], [place] [address] Nov, [facility] [address] [id number] [address] [place] [address], [place] [id number] Sep, [facility] [address] [id number] [address] [place] [address], [place] [id number] Sep, [facility] [address] [id number] [address] [place] [address], [place] [address] Aug, [facility] [address] [id number] [address] [place] [id number] Aug, [facility] [address] [id number] [place] [id number] July, [facility] [address] [id number] [place] [id number] Jun, [facility] [address] [id number] [place] [id number] Apr, [facility] [address] [id number] [place] [id number] Mar, [facility] [address] [facility] [id number] [address] [place] [address] Mar, [facility] [address] [id number] [place] [id number] Mar, [facility] [address] [facility] [id number] [address] [place] [id number] Mar, [facility] [address] [id number] [place] [id number] Feb, [facility] [address] [facility] [id number] [address] [place] [id number] Feb, [facility] [address] [id number] [place] [id number] Feb, [facility] [address] [facility] [id number] [address] [place] [address], [place] [id number] Feb, [facility] [address] [id number] [place] [id number] Oct, [facility] [address] [id number] [place] [id number] Oct, [facility] [address] [id number] [place] [id number] July, [facility] [address] [id number] [place] [id number] July, [facility] [address] [id number] [place] [id number] Jun, [facility] [address] [id number] [place] [id number] Jun, [facility] [address] [id number] [place] [id number] Jun, [facility] [address] [id number] [place] [id number] Mar, [facility] [address] [id number] [place] [id number] Mar, [facility] [place] [address] [id number] [address] [place] [id number] Feb, [facility] [place] [address] [id number] [address] [place] [id number] Feb, [facility] [place] [address] [facility] [id number] [address] [place] [id number] Jan, [facility] [place] [address] [facility] [id number] [address] [place] [id number] Jan, [facility] [place] [address] [facility] [id number] [address] [place] [id number] Jan, [facility] [place] [address] [id number] [address] [place] [id number] Jan, [facility] [place] [address] [facility] [id number] [address] [place] [phone] Jan, [facility] [place] [address] [facility] [facility] [facility] [id number] [address] [place] [id number] Aug, [facility] [place], [facility] [address] [facility] [id number] [address] [place] [id number] Apr, IMMUNIZATIONS No Known Immunizations SOCIAL HISTORY Never Assessed REASON FOR VISIT PLAN OF CARE VITAL SIGNS Height 75.5 in 2013-04-11 Weight 255.8 lbs 2013-04-11 Temperature 97.5 degrees Fahrenheit 2013-04-11 Heart Rate 70 bpm 2013-04-11 Respiratory Rate 16 2013-04-11 Blood pressure systolic 138 mmHg 2013-04-11 Blood pressure diastolic 84 mmHg 2013-04-11 MEDICATIONS Unknown Medications RESULTS No Results PROCEDURES Procedure Date Ordered Result Body Site PROTHROMBIN TIME Apr 11, 2013 INSTRUCTIONS MEDICATIONS ADMINISTERED No Known Medications [...]
--- OUTSIDE RECORDS SUMMARY | 2019-11-08 12:58 | XMS REPORT ---
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 [address] [id number] [id number] Apr, Anticoagulant long-term use Z79.[address] [facility] [address] [id number], [place] [id number] Apr, Factor V Leiden D68.51 [facility] [id number] [place] [address] Mar, Anticoagulant long-term use Z79.01 [id number] [place] [address] Mar, Factor V Leiden D68.51 [address] [address] [address] Mar, Occult blood positive stool R19.5 [place] [address] [place] [id number] Mar, Other chronic pain G89.29 [address] [address] [address] Mar, Factor V Leiden D68.51 and Anticoagulant long-term use Z79.01 [facility] [address] [id number] [place] [id number] Mar, Anticoagulant long-term use Z79.01 [facility] [address] [id number] [place] [id number] Mar, Anticoagulant long-term use Z79.01 [place] [address] [address] Mar, Anticoagulant long-term use Z79.01 [address] [address] [address] Mar, Pure hypercholesterolemia E78.[address] [facility] [address] [facility] [address] [id number], [place] [id number] Mar, Anticoagulant long-term use Z79.01 [place] [address] [address] Mar, Other chronic pain G89.29 [address] [address] [address] Feb, Anticoagulant long-term use Z79.01 and E ssential hypertension I10 [address] [address] Feb, Anticoagulant long-term use Z79.01 ; Ess ential hypertension I10 ; Chronic prescription opiate use Z79.899 ; Other chronic pain G89.29 ; Venous stasis ulcers, left I83.029 ; 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.09X0 and Pure hypercholesterolemia E78.00 [facility] [address] [id number], [place] [id number] Feb, Anticoagulant long-term use Z79.01 [facility] [address] [address] Feb, Anticoagulant long-term use Z79.01 [place] [address] [address] Feb, Other chronic pain G89.29 [facility] [address] [id number] [id number] Feb, Anticoagulant long-term use Z79.01 [address] [address] Jan, Anticoagulant long-term use Z79.01 [facility] [address] [id number] [id number] Jan, Anticoagulant long-term use Z79.01 [facility] [address] [id number], [place] [id number] Jan, Anticoagulant long-term use Z79.01 [address] [address] [address] Jan, Anticoagulant long-term use Z79.01 [facility] [address] [id number], [place] [id number] Jan, Anticoagulant long-term use Z79.01 [address] [address] [address] Jan, Anticoagulant long-term use Z79.01 [facility] [address] [id number], [place] [id number] Jan, Anticoagulant long-term use Z79.01 [place] [address] Jan, [facility] [address] [id number] [id number] Jan, Anticoagulant long-term use Z79.01 [facility] [id number] [place] [address] Jan, [facility] [address] [address] Jan, Other chronic pain G89.29 [facility] [id number] [place] [address] Jan, Anticoagulant long-term use Z79.[address] [facility] [address] [facility] [address] [id number], [place] [id number] Dec, Anticoagulant long-term use Z79.01 [facility] [address] [address] Dec, Anticoagulant long-term use Z79.[address] [facility] [address] [id number] [id number] Dec, Anticoagulant long-term use Z79.[address] [facility] [address] [facility] [address] [id number], [place] [id number] Dec, Anticoagulant long-term use Z79.01 [address] [address] [address] Dec, Anticoagulant long-term use Z79.01 [facility] [address] [address] Dec, Anticoagulant long-term use Z79.01 [facility] [address] [address] Dec, Anticoagulant long-term use Z79.01 [facility] [address] [address] Dec, Other chronic pain G89.29 [facility] [address] [address] Dec, Anticoagulant long-term use Z79.01 [facility] [address] [address] Dec, [facility] [id number] [place] [address] Dec, Other chronic pain G89.29 [facility] [address] [id number], [place] [id number] Dec, Anticoagulant long-term use Z79.01 [address] [address] Nov, Anticoagulant long-term use Z79.01 [facility] [address] [id number], [place] [id number] Nov, Anticoagulant long-term use Z79.01 [address] [place] [address] Nov, Anticoagulant long-term use Z79.01 [address] [address] Nov, Other chronic pain G89.29 [address] [address] Nov, Other chronic pain G89.29 [address] [address] Nov, Anticoagulant long-term use Z79.01 [facility] [address] [id number], [place] [id number] Nov, Factor V Leiden D68.[address] [id number] [id number] Nov, Factor V Leiden D68.51 [place] [id number] [place] [address] Nov, Anticoagulant long-term use Z79.[address] [id number] [id number] Nov, Anticoagulant long-term use Z79.01 [place] [address] [address] Nov, Essential hypertension I10 ; Factor V Le iden D68.51 and Anticoagulant long-term use Z79.[address] [facility] [address] [id number] [place] [id number] Oct, Anticoagulant long-term use Z79.01 [facility] [id number] [place] [address] Oct, [facility] [address] [address] Oct, Anticoagulant long-term use Z79.01 [facility] [address] [address] Oct, Other chronic pain G89.29 [address] [address] Oct, Anticoagulant long-term use Z79.01 [address] [address] Oct, [facility] [address] [address] Sep, Anticoagulant long-term use Z79.[address] [facility] [address] [facility] [address] [id number] [id number] Sep, Anticoagulant long-term use Z79.01 [address] [address] [place] [address] Sep, Other chronic pain G89.29 [address] [address] Sep, Anticoagulant long-term use Z79.[address] [facility] [address] [facility] [address] [id number] [place] [id number] Sep, Anticoagulant long-term use Z79.01 [address] [address] Aug, Anticoagulant long-term use Z79.01 [address] [address] Aug, Anticoagulant long-term use Z79.01 [facility] [address] [place] [address] Aug, Other chronic pain G89.29 [address] [address] Aug, Other chronic pain G89.29 ; Anticoagulan t long-term use Z79.01 ; 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.09X0 ; Oral pain K13.79 ; Dental infection K04.7 ; Essential hypertension I10 and Pure hypercholesterolemia E78.00 [address] [address] July, Other chronic pain G89.29 [address] [address] Jun, Other chronic pain G89.29 [address] [address] Jun, [address] [address] Jun, [facility] [address] [id number] [place] [id number] Jun, Anticoagulant long-term use Z79.01 and I diopathic chronic gout of multiple sites without tophus M1A.09X0 [place] [address] [place] [address] May, Other chronic pain G89.29 [address] [place] [address] May, [address] [address] May, Anticoagulant long-term use Z79.01 [address] [place] [address] May, [facility] [address] [id number] [place] [id number] May, Anticoagulant long-term use Z79.01 [address] [id number] May, Anticoagulant long-term use Z79.01 [address] [id number] May, Anticoagulant long-term use Z79.01 [facility] [address] [id number] [id number] May, Factor V Leiden D68.51 [address] [address] Apr, Other chronic pain G89.29 [address] [address] Apr, Idiopathic chronic gout of multiple site s without tophus M1A.09X0 [facility] [id number] [place] [id number] Apr, Anticoagulant long-term use Z79.01 [facility] [address] [id number], [place] [id number] Apr, Anticoagulant long-term use Z79.01 ; Med ication side effect T88.7XXA and 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.09X0 [address] [address] Apr, [address] [address] Apr, Anticoagulant long-term use Z79.01 [address] [address] Apr, Medication side effect T88.7XXA and Fact or V Leiden D68.51 [address] [address] Apr, Idiopathic chronic gout of multiple site s without tophus M1A.09X0 and Anticoagulant long-term use Z79.01 [facility] [id number] [place] [id number] Mar, Factor V Leiden D68.51 and Anticoagulant long-term use Z79.01 [address] [address] Mar, Factor V Leiden D68.51 ; Anticoagulant l chuck-term use Z79.01 ; 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.09X0 ; Pure hypercholesterolemia E78.00 ; Other chronic pain G89.29 and BMI 40.0-44.9, adult Z68.41 [address] [address] Mar, [address] [address] Mar, Other chronic pain G89.29 [address] [address] Feb, Idiopathic chronic gout of multiple site s without tophus M1A.09X0 [facility] [address] [id number] [place] [id number] Feb, Anticoagulant long-term use Z79.01 and I diopathic chronic gout of multiple sites without tophus M1A.09X0 [address] [address] Feb, Anticoagulant long-term use Z79.01 and I diopathic chronic gout of multiple sites without tophus M1A.09X0 [address] [address] Feb, [address] [address] Feb, Other chronic pain G89.29 [address] [id number] Jan, Other chronic pain G89.29 [address] [address] Dec, Other chronic pain G89.29 [address] [address] 05 Dec, 2017 Anticoagulant long-term use Z79.01 [address] [address] 03 Dec, 2017 Chronic prescription opiate use Z79.899 ; Factor V Leiden D68.51 ; Other chronic pain G89.29 and Anticoagulant long-term use Z79.01 [address] [address] 12 Nov, 2017 Other chronic pain G89.29 [address] [address] Oct, Other chronic pain G89.29 [address] [address] Sep, Other chronic pain G89.29 [address] [address] Aug, Other chronic pain G89.29 [address] [address] Aug, Venous stasis ulcers, left I83.029 [address] [address] July, Other chronic pain G89.29 [address] [address] July, Venous stasis ulcers, left I83.029 and S noring R06.83 [address] [address] Jun, Idiopathic chronic gout of multiple site s without tophus M1A.09X0 [address] [address] Jun, Acute renal insufficiency N28.9 [address] [address] Jun, Other chronic pain G89.29 [address] [address] [address] Jun, Acute renal insufficiency N28.9 [facility] [address] [id number] [id number] Jun, Idiopathic chronic gout of multiple site s without tophus M1A.09X0 ; Essential hypertension I10 and Anticoagulant long-term use Z79.01 [address] [id number] Jun, Anticoagulant long-term use Z79.01 and E ssential hypertension I10 [address] [place] [address] May, Idiopathic chronic gout of multiple site s without tophus M1A.09X0 [address] [address] [id number] May, [address] [address] May, Essential hypertension I10 ; Pure hyperc holesterolemia E78.00 ; Anticoagulant long-term use Z79.01 and 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.09X0 [address] [id number] May, Other chronic pain G89.29 [place] [address] [id number] May, Anticoagulant long-term use Z79.01 [address] [address] May, Chronic prescription opiate use Z79.899 ; Other chronic pain G89.29 ; Essential hypertension I10 ; Factor V Leiden D68.51 ; Anticoagulant long-term use Z79.01 ; Pure hypercholesterolemia E78.00 ; Venous stasis ulcers, left I83.029 ; 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.09X0 and Cellulitis of left lower extremity L03.116 [place] [address] [id number] Apr, Other chronic pain G89.29 [address] [address] Mar, Other chronic pain G89.29 [address] [address] Mar, Factor V Leiden D68.51 ; Pure hyperchole sterolemia E78.00 and Other chronic pain G89.29 [address] [address] Feb, Other chronic pain G89.29 [address] [address] Jan, Idiopathic chronic gout of multiple site s without tophus M1A.09X0 [address] [address] Jan, Other chronic pain G89.29 [address] [address] Dec, Anticoagulant long-term use Z79.01 ; Fac tor V Leiden D68.51 and Other chronic pain G89.29 [address] [address] Dec, Other chronic pain G89.29 [address] [address] Nov, Other chronic pain G89.29 [address] [address] Oct, Other chronic pain G89.29 [address] [address] Sep, Anticoagulant long-term use Z79.01 [place] [address] [address] Sep, Chronic prescription opiate use Z79.899 ; Anticoagulant long-term use Z79.01 ; Essential hypertension I10 ; Pure hypercholesterolemia E78.00 ; Factor V Leiden D68.51 ; Venous stasis ulcers, left I83.029 ; Other chronic pain G89.29 and 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.09X0 [place] [address] [address] Aug, Anticoagulant long-term use Z79.01 [place] [address] Aug, Other chronic pain G89.29 [address] [address] [address] Aug, Essential hypertension I10 and Factor V Leiden D68.[address] [id number] [id number] 15 Aug, 2016 Acute right ankle pain M25.571 and Tendo nitis of ankle M77.50 [place] [address] Aug, [place] [address] July, Other chronic pain G89.29 [address] [address] [address] Jun, Other chronic pain G89.29 [place] [address] Jun, Other chronic pain G89.29 [place] [address] Jun, Anticoagulant long-term use Z79.01 [place] [address] [address] May, Other chronic pain G89.29 [address] [address] May, Anticoagulant long-term use Z79.01 [address] [address] May, Other chronic pain G89.29 [facility] [address] [address] Apr, Anticoagulant long-term use Z79.01 [facility] [address] [address] Apr, Other chronic pain G89.29 [facility] [address] [address] Apr, Anticoagulant long-term use Z79.01 and P ure hypercholesterolemia E78.00 [place] [address] Mar, [place] [address] Mar, Anticoagulant long-term use Z79.01 [place] [address] Mar, Other chronic pain G89.29 [facility] [address] [address] Feb, Essential hypertension I10 ; Chronic pre scription opiate use Z79.899 ; Other chronic pain G89.29 ; Screening Z13.9 ; Factor V Leiden D68.51 ; Anticoagulant long-term use Z79.01 ; Venous stasis dermatitis of left lower extremity I83.12 and Pure hypercholesterolemia E78.00 [address] [address] [address] Jan, Anticoagulant long-term use Z79.01 [facility] [address] [address] Jan, Anticoagulant long-term use Z79.01 [place] [address] [address] Jan, [place] [address] Jan, [place] [address] Dec, [facility] [address] [address] Nov, [facility] [address] [address] Oct, Anticoagulant long-term use Z79.01 [facility] [address] [address] Oct, [facility] [address] [address] Oct, Anticoagulant long-term use Z79.01 [facility] [address] [address] Sep, [facility] [address] [address] Aug, [place] [address] [address] Aug, Chronic prescription opiate use Z79.899 ; Other chronic pain G89.29 ; Essential hypertension I10 and Pure hypercholesterolemia E78.0 [place] [address] [address] July, Hyperlipidemia, group D E78.3 and Antico agulant long-term use Z79.01 [place] [address] [address] July, Hyperlipidemia, group D E78.3 ; Essentia l hypertension I10 and Factor V Leiden D68.51 [place] [address] [address] July, Essential hypertension I10 [place] [address] [address] Jun, Hyperlipidemia, group D E78.3 [place] [address] [address] Jun, Factor V Leiden D68.51 [place] [address] [address] May, Factor V Leiden D68.51 ; Hyperlipidemia, group D E78.3 ; Essential hypertension I10 ; Other chronic pain G89.29 and Anticoagulant long-term use Z79.01 [facility] [address] [address] May, Anticoagulant long-term use Z79.01 [facility] [address] [address] May, Anticoagulant long-term use Z79.01 [place] [address] [address] May, [place] [address] [address] Apr, [facility] [address] [address] Mar, [place] [address] [address] Mar, [facility] [address] [address] Feb, Anticoagulant long-term use Z79.01 [place] [address] [address] 16 Feb, 2015 Chronic prescription opiate use Z79.899 ; Other chronic pain G89.29 ; Hyperlipidemia, group D E78.3 ; Factor V Leiden D68.51 and Anticoagulant long- term use Z79.01 [place] [address] [address] Feb, [place] [address] [address] Jan, [place] [address] [address] Dec, Hyperlipidemia, unspecified E78.5 [place] [address] [address] Dec, Cellulitis of left lower extremity L03.1 16 ; Venous stasis ulcers, left I83.029 and Factor V Leiden D68.51 [facility] [address] [address] Dec, Hyperlipidemia 272.4 and 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 [facility] [address] [address] Dec, [facility] [address] [address] Nov, 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 [facility] [address] [address] Nov, [facility] [address] [address] Nov, [facility] [address] [address] Nov, [facility] [address] [address] Oct, [facility] [address] [address] Oct, Hyperlipidemia 272.4 ; Chronic pain diso rder 338.4 ; Venous stasis ulcer of left lower extremity 454.0 and 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 [facility] [address] [address] Sep, [facility] [address] [address] Sep, [facility] [address] [address] Sep, Hyperlipidemia 272.4 and 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 [facility] [address] [address] Aug, [facility] [address] [address] Aug, 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 [facility] [address] [address] July, [facility] [address] [id number] [place] [address] July, Essential hypertension, benign 401.1 ; F actor 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 ; Chronic pain disorder 338.4 ; Hyperlipidemia 272.4 and Venous stasis ulcer of left lower extremity 454.0 [facility] [id number] [place] [address] Jun, [facility] [id number] [place] [address] Jun, [facility] [address] [address] May, [facility] [address] [address] May, [facility] [address] [address] Apr, [facility] [id number] [place] [address] Apr, [facility] [address] [address] Apr, [facility] [id number] [place] [address] Apr, [facility] [address] [id number] [place] [address] Apr, [facility] [address] [id number] [place] [address] Apr, [facility] [address] [id number] [place] [address] Mar, [facility] [id number] [place] [address] Mar, [facility] [id number] [place] [address] Mar, [facility] [id number] [place] [address] Mar, [facility] [address] [facility] [id number] [place] [address] Feb, [facility] [address] [id number] [place] [address] Feb, [facility] [address] [id number] [place] [address] Feb, [facility] [address] [id number] [place] [address] Feb, [facility] [address] [id number] [place] [address] Jan, [facility] [address] [id number] [place] [address] Jan, [facility] [address] [id number] [place] [address] Jan, [facility] [address] [id number] [place] [address] Jan, [facility] [address] [id number] [place] [address] Jan, [facility] [address] [id number] [place] [address] Jan, [facility] [address] [id number] [place] [address] Dec, [facility] [address] [id number] [place] [address] Dec, [facility] [address] [id number] [place] [address] Oct, [facility] [address] [id number] [place] [address] Oct, [facility] [address] [id number] [place] [address] Sep, [facility] [address] [id number] [place] [address] Sep, [facility] [address] [id number] [place] [address] Sep, [facility] [address] [facility] [id number] [place] [address] Sep, [facility] [address] [id number] [place] [address] Aug, [facility] [address] [id number] [place] [address] Aug, [facility] [address] [id number] [place] [address] July, [facility] [address] [id number] [place] [address] July, [facility] [address] [id number] [place] [address] Jun, [facility] [address] [id number] [place] [address] Jun, [facility] [address] [id number] [place] [address] May, [facility] [address] [id number] [place] [address] May, [facility] [address] [id number] [place] [address] Apr, [facility] [address] [id number] [place] [address] Apr, [facility] [address] [id number] [place] [address] Mar, [facility] [address] [id number] [place] [address] Mar, [facility] [address] [id number] [place] [address] Jan, [facility] [address] [id number] [place] [address] Jan, [facility] [address] [id number] [place] [address] Jan, [facility] [address] [id number] [place] [address] Jan, [facility] [address] [id number] [place] [address] Jan, [facility] [address] [id number] [place] [address] Dec, [facility] [address] [id number] [place] [address] Dec, [facility] [address] [id number] [place] [address] Dec, [facility] [address] [id number] [place] [address] Nov, [facility] [address] [id number] [place] [address] Nov, [facility] [id number] [place] [address] Sep, [facility] [address] [id number] [place] [address] Sep, [facility] [id number] [place] [address] Aug, [facility] [address] [id number] [place] [address] Aug, [facility] [address] [facility] [id number] July, [facility] [id number] [id number] Jun, [facility] [id number] [id number] Apr, [facility] [address] [id number] [id number] Mar, [facility] [address] [id number] [place] [address] Mar, [facility] [address] [facility] [id number] Mar, [facility] [address] [id number] [place] [address] Mar, [facility] [address] [id number] [id number] Feb, [facility] [address] [id number] [place] [address] Feb, [facility] [id number] [id number] Feb, [facility] [address] [id number] [place] [address] Feb, [facility] [address] [id number] [id number] Oct, [facility] [id number] [id number] Oct, [facility] [address] [id number] [id number] July, [facility] [id number] [place] [address], [place] [id number] July, [facility] [id number] [id number] Jun, [facility] [id number] [id number] Jun, [facility] [id number] [id number] Jun, [facility] [id number] [id number] Mar, [facility] [id number] [place] [address], [place] [id number] Mar, [facility] [address] [id number] [place] [address] Feb, [facility] [address] [id number] [place] [address] Feb, [facility] [address] [id number] [place] [address] Jan, [facility] [id number] [place] [address] Jan, [facility] [id number] [place] [address] 11 Jan, 2011 [facility] [address] [id number] [place] [address] Jan, [facility] [address] [id number] [place] [address] 11 Jan, 2011 [facility] [address] [id number] [place] [address] 14 Aug, 2010 [facility] [address] [id number] [place] [address] 17 Apr, 2010 IMMUNIZATIONS No Known Immunizations [...]
--- OUTSIDE RECORDS SUMMARY | 2019-11-08 12:59 | XMS REPORT ---
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 74099603 Problem Other chronic pain G89.29 Active 8 0154725 Problem Venous stasis ulcers, left I83.029 Act ozzy 305997966 Problem Essential hypertension I10 Active 96560617 Problem Venous anomaly Q27.9 Active 95860 4003 Problem Congenital single kidney Q60.0 Activ e 88558296 Problem Chronic prescription opiate use Z79.899 Active 820380292 Problem Pure hypercholesterolemia E78.00 Acti ve 000324001 ALLERGIES No Information ENCOUNTERS Encounter Location Date Diagnosis [id number] [place] [address] Apr, Anticoagulant long-term use Z79.[address] [facility] [address] [id number] [address] Apr, Anticoagulant long-term use Z79.[address] [facility] [address] [id number] [id number] Apr, Factor V Leiden D68.51 [facility] [id number] [place] [address] Mar, Anticoagulant long-term use Z79.01 [id number] [place] [address] Mar, Factor V Leiden D68.51 [address] [address] [address] Mar, Occult blood positive stool R19.5 [place] [address] [id number] Mar, Other chronic pain G89.29 [address] [address] [address] Mar, Factor V Leiden D68.51 and Anticoagulant long-term use Z79.01 [facility] [address] [id number] [place] [id number] Mar, Anticoagulant long-term use Z79.01 [facility] [address] [id number] [place] [id number] Mar, Anticoagulant long-term use Z79.01 [place] [address] [address] Mar, Anticoagulant long-term use Z79.01 [place] [address] [address] [address] Mar, Pure hypercholesterolemia E78.[address] [facility] [address] [id number] [id number] Mar, Anticoagulant long-term use Z79.01 [place] [address] [address] Mar, Other chronic pain G89.29 [place] [address] [address] Feb, Anticoagulant long-term use Z79.01 and E ssential hypertension I10 [address] [address] Feb, Anticoagulant long-term use Z79.01 ; Ess ential hypertension I10 ; Chronic prescription opiate use Z79.899 ; Other chronic pain G89.29 ; Venous stasis ulcers, left I83.029 ; 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.09X0 and Pure hypercholesterolemia E78.00 [facility] [address] [id number] [id number] Feb, Anticoagulant long-term use Z79.01 [facility] [address] [address] Feb, Anticoagulant long-term use Z79.01 [place] [address] [address] Feb, Other chronic pain G89.29 [facility] [address] [id number] [address] Feb, Anticoagulant long-term use Z79.01 [place] [address] [address] Jan, Anticoagulant long-term use Z79.01 [facility] [address] [id number] [id number] Jan, Anticoagulant long-term use Z79.01 [facility] [address] [id number] [id number] Jan, Anticoagulant long-term use Z79.01 [place] [address] [address] [address] Jan, Anticoagulant long-term use Z79.01 [facility] [address] [id number][place] [address] Jan, Anticoagulant long-term use Z79.01 [place] [address] [address] [address] Jan, Anticoagulant long-term use Z79.01 [facility] [address] [id number][place] [id number] Jan, Anticoagulant long-term use Z79.01 [place] [address] [address] Jan, [facility] [address] [id number] [id number] Jan, Anticoagulant long-term use Z79.01 [facility] [id number] [place] [address] Jan, [facility] [address] [address] Jan, Other chronic pain G89.29 [facility] [id number] [place] [address] Jan, Anticoagulant long-term use Z79.[address] [facility] [address] [id number] [id number] Dec, Anticoagulant long-term use Z79.01 [facility] [address] [address] Dec, Anticoagulant long-term use Z79.[address] [facility] [address] [id number], [place] [address] Dec, Anticoagulant long-term use Z79.[address] [facility] [address] [id number] [address] Dec, Anticoagulant long-term use Z79.01 [place] [address] [address] [address] Dec, Anticoagulant long-term use Z79.01 [facility] [address] [address] Dec, Anticoagulant long-term use Z79.01 [facility] [address] [address] Dec, Anticoagulant long-term use Z79.01 [facility] [address] [address] Dec, Other chronic pain G89.29 [facility] [address] [address] Dec, Anticoagulant long-term use Z79.01 [facility] [address] [address] Dec, [facility] [address] [place] [address] Dec, Other chronic pain G89.29 [facility] [address] [id number] [address] Dec, Anticoagulant long-term use Z79.01 [address] [address] Nov, Anticoagulant long-term use Z79.01 [facility] [address] [id number] [id number] Nov, Anticoagulant long-term use Z79.01 [address] [place] [address] Nov, Anticoagulant long-term use Z79.01 [address] [address] [address] Nov, Other chronic pain G89.29 [address] [address] [address] Nov, Other chronic pain G89.29 [address] [address] [address] Nov, Anticoagulant long-term use Z79.01 [facility] [address] [id number] [address] Nov, Factor V Leiden D68.[address] [id number] [address] Nov, Factor V Leiden D68.51 [place] [id number] [place] [address] Nov, Anticoagulant long-term use Z79.[address] [id number] [address] Nov, Anticoagulant long-term use Z79.01 [place] [address] [address] Nov, Essential hypertension I10 ; Factor V Le iden D68.51 and Anticoagulant long-term use Z79.[address] [facility] [address] [id number] [place] [id number] Oct, Anticoagulant long-term use Z79.01 [facility] [address] [place] [address] Oct, [facility] [address] [address] Oct, Anticoagulant long-term use Z79.01 [facility] [address] [address] Oct, Other chronic pain G89.29 [place] [address] [address] Oct, Anticoagulant long-term use Z79.01 [address] [address] [address] Oct, [facility] [address] [address] Sep, Anticoagulant long-term use Z79.[address] [facility] [address] [id number][place] [address] Sep, Anticoagulant long-term use Z79.01 [address] [address] [place] [address] Sep, Other chronic pain G89.29 [address] [address] Sep, Anticoagulant long-term use Z79.[address] [facility] [address] [id number] [place] [id number] Sep, Anticoagulant long-term use Z79.01 [address] [address] Aug, Anticoagulant long-term use Z79.01 [address] [address] Aug, Anticoagulant long-term use Z79.01 [facility] [address] [place] [address] Aug, Other chronic pain G89.29 [address] [address] Aug, Other chronic pain G89.29 ; Anticoagulan t long-term use Z79.01 ; 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.09X0 ; Oral pain K13.79 ; Dental infection K04.7 ; Essential hypertension I10 and Pure hypercholesterolemia E78.00 [address] [address] July, Other chronic pain G89.29 [address] 8[address] Jun, Other chronic pain G89.29 [address] [address] Jun, [place] [address] [address] [address] Jun, [facility] [address] [id number] [place] [address] Jun, Anticoagulant long-term use Z79.01 and I diopathic chronic gout of multiple sites without tophus M1A.09X0 [address] [place] [address] May, Other chronic pain G89.29 [address] [address] [place] [address] May, [address] [address] [address] May, Anticoagulant long-term use Z79.01 [address] [address] [place] [address] May, [facility] [address] [id number] [place] [address] May, Anticoagulant long-term use Z79.01 [address] 245587[address] May, Anticoagulant long-term use Z79.01 [address] [address] 245587[address] May, Anticoagulant long-term use Z79.01 [facility] [address] [id number] [address] May, Factor V Leiden D68.51 [address] [address] [address] Apr, Other chronic pain G89.29 [address] [address] [address] Apr, Idiopathic chronic gout of multiple site s without tophus M1A.09X0 [facility] [id number] [place] [id number] Apr, Anticoagulant long-term use Z79.01 [facility] [address] [id number][place] [id number] Apr, Anticoagulant long-term use Z79.01 ; Med ication side effect T88.7XXA and 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.09X0 [address] [address] Apr, [address] [address] [address] Apr, Anticoagulant long-term use Z79.01 [address] [address] Apr, Medication side effect T88.7XXA and Fact or V Leiden D68.51 [address] [address] Apr, Idiopathic chronic gout of multiple site s without tophus M1A.09X0 and Anticoagulant long-term use Z79.01 [facility] [id number] [place] [id number] Mar, Factor V Leiden D68.51 and Anticoagulant long-term use Z79.01 [address] [address] Mar, Factor V Leiden D68.51 ; Anticoagulant l chuck-term use Z79.01 ; 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.09X0 ; Pure hypercholesterolemia E78.00 ; Other chronic pain G89.29 and BMI 40.0-44.9, adult Z68.41 [address] [address] [address] Mar, [address] [address] Mar, Other chronic pain G89.29 [address] [address] [address] Feb, Idiopathic chronic gout of multiple site s without tophus M1A.09X0 [facility] [address] [id number] [place] [id number] Feb, Anticoagulant long-term use Z79.01 and I diopathic chronic gout of multiple sites without tophus M1A.09X0 [address] [address] Feb, Anticoagulant long-term use Z79.01 and I diopathic chronic gout of multiple sites without tophus M1A.09X0 [address] [address] [address] Feb, [address] [address] [address] Feb, Other chronic pain G89.29 [address] [id number] Jan, Other chronic pain G89.29 [address] [address] Dec, Other chronic pain G89.29 [address] [address] 05 Dec, 2017 Anticoagulant long-term use Z79.01 [address] [address] [address] 03 Dec, 2017 Chronic prescription opiate use Z79.899 ; Factor V Leiden D68.51 ; Other chronic pain G89.29 and Anticoagulant long-term use Z79.01 [address] [address] 12 Nov, 2017 Other chronic pain G89.29 [address] [address] [address] Oct, Other chronic pain G89.29 [address] [address] [address] Sep, Other chronic pain G89.29 [address] [address] Aug, Other chronic pain G89.29 [address] [address] [address] Aug, Venous stasis ulcers, left I83.029 [address] [address] [address] July, Other chronic pain G89.29 [address] [address] [address] July, Venous stasis ulcers, left I83.029 and S noring R06.83 [address] [address] [address] Jun, Idiopathic chronic gout of multiple site s without tophus M1A.09X0 [address] [address] [address] Jun, Acute renal insufficiency N28.9 [place] [address] [address] Jun, Other chronic pain G89.29 [address] [address] Jun, Acute renal insufficiency N28.9 [facility] [address] [id number] [id number] Jun, Idiopathic chronic gout of multiple site s without tophus M1A.09X0 ; Essential hypertension I10 and Anticoagulant long-term use Z79.01 [address] [address] [id number] Jun, Anticoagulant long-term use Z79.01 and E ssential hypertension I10 [address] [place] [address] May, Idiopathic chronic gout of multiple site s without tophus M1A.09X0 [place] [address] 24558762[address] May, [address] [address] [address] May, Essential hypertension I10 ; Pure hyperc holesterolemia E78.00 ; Anticoagulant long-term use Z79.01 and 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.09X0 [address] [address] 24558762[address] May, Other chronic pain G89.29 [place] [address] 24558762[address] May, Anticoagulant long-term use Z79.01 [address] [address] [address] May, Chronic prescription opiate use Z79.899 ; Other chronic pain G89.29 ; Essential hypertension I10 ; Factor V Leiden D68.51 ; Anticoagulant long-term use Z79.01 ; Pure hypercholesterolemia E78.00 ; Venous stasis ulcers, left I83.029 ; 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.09X0 and Cellulitis of left lower extremity L03.116 [address] [address] 245587[address] Apr, Other chronic pain G89.29 [address] [address] Mar, Other chronic pain G89.29 [address] [address] [address] Mar, Factor V Leiden D68.51 ; Pure hyperchole sterolemia E78.00 and Other chronic pain G89.29 [address] [address] Feb, Other chronic pain G89.29 [address] [address] Jan, Idiopathic chronic gout of multiple site s without tophus M1A.09X0 [address] [address] Jan, Other chronic pain G89.29 [address] [address] Dec, Anticoagulant long-term use Z79.01 ; Fac tor V Leiden D68.51 and Other chronic pain G89.29 [address] [address] [address] Dec, Other chronic pain G89.29 [address] [address] [address] Nov, Other chronic pain G89.29 [address] [address] Oct, Other chronic pain G89.29 [address] [address] Sep, Anticoagulant long-term use Z79.01 [address] [address] [address] Sep, Chronic prescription opiate use Z79.899 ; Anticoagulant long-term use Z79.01 ; Essential hypertension I10 ; Pure hypercholesterolemia E78.00 ; Factor V Leiden D68.51 ; Venous stasis ulcers, left I83.029 ; Other chronic pain G89.29 and 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.09X0 [address] [address] [address] Aug, Anticoagulant long-term use Z79.01 [place] [address] Aug, Other chronic pain G89.29 [place] [address] Aug, Essential hypertension I10 and Factor V Leiden D68.[address] [id number] [id number] 15 Aug, 2016 Acute right ankle pain M25.571 and Tendo nitis of ankle M77.50 [place] [address] [address] Aug, [place] [address] [address] July, Other chronic pain G89.29 [address] [address] Jun, Other chronic pain G89.29 [place] [address] Jun, Other chronic pain G89.29 [place] [address] Jun, Anticoagulant long-term use Z79.01 [address] [address] [address] May, Other chronic pain G89.29 [address] [address] May, Anticoagulant long-term use Z79.01 [address] [address] [address] May, Other chronic pain G89.29 [facility] [address] [address] Apr, Anticoagulant long-term use Z79.01 [facility] [address] [address] Apr, Other chronic pain G89.29 [facility] [address] [address] Apr, Anticoagulant long-term use Z79.01 and P ure hypercholesterolemia E78.00 [address] [address] Mar, [place] [address] [address] Mar, Anticoagulant long-term use Z79.01 [place] [address] Mar, Other chronic pain G89.29 [facility] [address] [address] Feb, Essential hypertension I10 ; Chronic pre scription opiate use Z79.899 ; Other chronic pain G89.29 ; Screening Z13.9 ; Factor V Leiden D68.51 ; Anticoagulant long-term use Z79.01 ; Venous stasis dermatitis of left lower extremity I83.12 and Pure hypercholesterolemia E78.00 [place] [address] Jan, Anticoagulant long-term use Z79.01 [facility] [address] [address] Jan, Anticoagulant long-term use Z79.01 [place] [address] [address] Jan, [place] [address] [address] Jan, [place] [address] [address] Dec, [facility] [address] [address] Nov, [facility] [address] [address] Oct, Anticoagulant long-term use Z79.01 [facility] [address] [address] Oct, [facility] [address] [address] Oct, Anticoagulant long-term use Z79.01 [facility] [address] [address] Sep, [facility] [address] [address] Aug, [place] [address] [address] Aug, Chronic prescription opiate use Z79.899 ; Other chronic pain G89.29 ; Essential hypertension I10 and Pure hypercholesterolemia E78.0 [place] [address] [address] July, Hyperlipidemia, group D E78.3 and Antico agulant long-term use Z79.01 [place] [address] [address] July, Hyperlipidemia, group D E78.3 ; Essentia l hypertension I10 and Factor V Leiden D68.51 [address] [address] [address] July, Essential hypertension I10 [place] [address] [address] Jun, Hyperlipidemia, group D E78.3 [place] [address] [address] Jun, Factor V Leiden D68.51 [place] [address] [address] May, Factor V Leiden D68.51 ; Hyperlipidemia, group D E78.3 ; Essential hypertension I10 ; Other chronic pain G89.29 and Anticoagulant long-term use Z79.01 [facility] [address] [address] May, Anticoagulant long-term use Z79.01 [facility] [address] [address] May, Anticoagulant long-term use Z79.01 [place] [address] [address] May, [place] [address] [address] Apr, [facility] [address] [address] Mar, [place] [address] [address] Mar, [facility] [address] [address] Feb, Anticoagulant long-term use Z79.01 [place] [address] [address] 16 Feb, 2015 Chronic prescription opiate use Z79.899 ; Other chronic pain G89.29 ; Hyperlipidemia, group D E78.3 ; Factor V Leiden D68.51 and Anticoagulant long- term use Z79.01 [place] [address] [address] Feb, [place] [address] [address] Jan, [place] [address] [address] Dec, Hyperlipidemia, unspecified E78.5 [place] [address] [address] Dec, Cellulitis of left lower extremity L03.1 16 ; Venous stasis ulcers, left I83.029 and Factor V Leiden D68.51 [facility] [address] [address] Dec, Hyperlipidemia 272.4 and 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 [facility] [address] [address] Dec, [facility] [address] [address] Nov, 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 [facility] [address] [address] Nov, [facility] [address] [address] Nov, [facility] [address] [address] Nov, [facility] [address] [address] Oct, [facility] [address] [address] Oct, Hyperlipidemia 272.4 ; Chronic pain diso rder 338.4 ; Venous stasis ulcer of left lower extremity 454.0 and 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 [facility] [address] [address] Sep, [facility] [address] [address] Sep, [facility] [address] [address] Sep, Hyperlipidemia 272.4 and 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 [facility] [address] [address] Aug, [facility] [address] [address] Aug, 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 [facility] [address] [address] July, [facility] [id number] [place] [address] July, Essential hypertension, benign 401.1 ; F actor 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 ; Chronic pain disorder 338.4 ; Hyperlipidemia 272.4 and Venous stasis ulcer of left lower extremity 454.0 [facility] [id number] [place] [address] Jun, [facility] [id number] [place] [address] Jun, [facility] [address] [address] May, [facility] [address] [address] May, [facility] [address] [address] Apr, [facility] [id number] [place] [address] Apr, [facility] [address] [address] Apr, [facility] [id number] [place] [address] Apr, [facility] [id number] [place] [address] Apr, [facility] [id number] [place] [address] Apr, [facility] [id number] [place] [address] Mar, [facility] [id number] [place] [address] Mar, [facility] [id number] [place] [address] Mar, [facility] [id number] [place] [address] Mar, [facility] [address] [facility] [id number] [place] [address] Feb, [facility] [address] [id number] [place] [address] Feb, [facility] [address] [id number] [place] [address] Feb, [facility] [address] [id number] [place] [address] Feb, [facility] [address] [id number] [place] [address] Jan, [facility] [address] [id number] [place] [address] Jan, [facility] [address] [id number] [place] [address] Jan, [facility] [facility] [address] [id number] [place] [address] Jan, [facility] [address] [id number] [place] [address] Jan, [facility] [address] [id number] [place] [address] Jan, [facility] [address] [id number] [place] [address] Dec, [facility] [address] [id number] [place] [address] Dec, [facility] [address] [id number] [place] [address] Oct, [facility] [address] [id number] [place] [address] Oct, [facility] [address] [id number] [place] [address] Sep, [facility] [address] [id number] [place] [address] Sep, [facility] [address] [id number] [facility] [address] Sep, [facility] [address] [facility] [id number] [place] [address] Sep, [facility] [address] [id number] [place] [address] Aug, [facility] [address] [id number] [place] [address] Aug, [facility] [address] [id number] [place] [address] July, [facility] [address] [id number] [place] [address] July, [facility] [address] [id number] [place] [address] Jun, [facility] [address] [id number] [place] [address] Jun, [facility] [address] [id number] [place] [address] May, [facility] [address] [id number] [place] [address] May, [facility] [address] [id number] [place] [address] Apr, [facility] [address] [id number] [place] [address] Apr, [facility] [address] [id number] [place] [address] Mar, [facility] [address] [id number] [place] [address] Mar, [facility] [address] [id number] [place] [address] Jan, [facility] [address] [id number] [place] [address] Jan, [facility] [address] [id number] [place] [address] Jan, [facility] [address] [id number] [place] [address] Jan, [facility] [address] [id number] [place] [address] Jan, [facility] [address] [id number] [place] [address] Dec, [facility] [address] [id number] [place] [address] Dec, [facility] [address] [id number] [place] [address] Dec, [facility] [address] [id number] [place] [address] Nov, [facility] [address] [id number] [place] [address] Nov, [facility] [id number] [place] [address] Sep, [facility] [address] [id number] [place] [address] Sep, [facility] [id number] [place] [address] Aug, [facility] [address] [id number] [place] [address] Aug, [facility] [address] [facility] [id number] July, [facility] [address] [id number] [id number] Jun, [facility] [address] [id number] [id number] Apr, [facility] [address] [id number] [id number] Mar, [facility] [address] [id number] [place] [address] Mar, [facility] [address] [id number] [id number] Mar, [facility] [address] [id number] [place] [address] Mar, [facility] [address] [id number] [id number] Feb, [facility] [address] [id number] [place] [address] Feb, [facility] [address] [id number] [id number] Feb, [facility] [address] [id number] [place] [address] Feb, [facility] [address] [id number] [id number] Oct, [facility] [id number] [id number] Oct, [facility] [address] [id number] [id number] July, [facility] [id number] [place] [address], [place] [id number] July, [facility] [id number] [address] Jun, [facility] [id number] [id number] Jun, [facility] [id number] [id number] Jun, [facility] [address] [id number] [id number] Mar, [facility] [id number] [place] [address], [place] [id number] Mar, [facility] [address] [id number] [place] [address] Feb, [facility] [address] [id number] [place] [address] Feb, [facility] [address] [id number] [place] [address] Jan, [facility] [id number] [place] [address] Jan, [facility] [id number] [place] [address] 11 Jan, 2011 [facility] [address] [id number] [place] [address] Jan, [facility] [address] [id number] [place] [address] 11 Jan, 2011 [facility] [address] [id number] [place] [address] 14 Aug, 2010 [facility] [address] [id number] [place] [address] 17 Apr, 2010 IMMUNIZATIONS No Known Immunizations SOCIAL HISTORY Never Assessed REASON FOR VISIT PLAN OF CARE VITAL SIGNS Height 75.5 in 2013-05-21 Weight 257.19 lbs 2013-05-21 Heart Rate 74 bpm 2013-05-21 Respiratory Rate 16 2013-05-21 Blood pressure systolic 124 mmHg 2013-05-21 Blood pressure diastolic 80 mmHg 2013-05-21 MEDICATIONS Unknown Medications RESULTS No Results PROCEDURES Procedure Date Ordered Result Body Site PROTHROMBIN TIME May 21, 2013 INSTRUCTIONS MEDICATIONS ADMINISTERED No Known Medications [...]
--- OUTSIDE RECORDS SUMMARY | 2019-11-08 12:59 | XMS REPORT ---
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 Steam Name Role Phone AVANI ORTIZ Unavailable PROBLEMS Type Condition ICD9-CM Code DNC54-QR Code Onset Dates Condition S tatus SNOMED Code Problem Factor V Leiden D68.51 Active 3070 19218 Problem Anticoagulant long-term use Z79.01 Ac tive 885838584 Problem Post-phlebitic syndrome I87.009 Active 36931704 Problem 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 37709382 Problem Other chronic pain G89.29 Active 8 1389398 Problem Venous stasis ulcers, left I83.029 Act ozzy 912440374 Problem Essential hypertension I10 Active 93854268 Problem Venous anomaly Q27.9 Active 68670 4003 Problem Congenital single kidney Q60.0 Activ e 52564311 Problem Chronic prescription opiate use Z79.899 Active 292280323 Problem Pure hypercholesterolemia E78.00 Acti ve [id number] ALLERGIES No Information ENCOUNTERS Encounter Location Date Diagnosis [place] [address] [address] [facility] [id number] [id number] Apr, Factor V Leiden D68.51 [facility] [id number] [place] [address] Mar, Anticoagulant long-term use Z79.01 [facility] [id number] [place] [address] Mar, Factor V Leiden D68.51 [facility] [id number] [place] [address] Mar, Occult blood positive stool R19.5 [place] [id number] [place] [address] Mar, Other chronic pain G89.29 [place] [address] [address] Mar, Factor V Leiden D68.51 and Anticoagulant long-term use Z79.01 [facility] [address] [id number] [id number] Mar, Anticoagulant long-term use Z79.[address] [facility] [address] [id number] [place] [id number] Mar, Anticoagulant long-term use Z79.01 [place] [address] [address] Mar, Anticoagulant long-term use Z79.01 [place] [address] [address] Mar, Pure hypercholesterolemia E78.00 [place] [address] [facility] [address] [id number] [place] [id number] Mar, Anticoagulant long-term use Z79.01 [place] [address] [address] Mar, Other chronic pain G89.29 [place] [address] [address] Feb, Anticoagulant long-term use Z79.01 and E ssential hypertension I10 [place] [address] [address] Feb, Anticoagulant long-term use Z79.01 ; Ess ential hypertension I10 ; Chronic prescription opiate use Z79.899 ; Other chronic pain G89.29 ; Venous stasis ulcers, left I83.029 ; 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.09X0 and Pure hypercholesterolemia E78.00 [facility] [address] [id number] [place]YE[place] [id number] Feb, Anticoagulant long-term use Z79.01 [place] [address] [address] Feb, Anticoagulant long-term use Z79.01 [facility] [id number] [place] [address] Feb, Other chronic pain G89.29 [facility] [address] [id number] [place]YE[place] [id number] Feb, Anticoagulant long-term use Z79.01 [facility] [address] [address] Jan, Anticoagulant long-term use Z79.01 [facility] [address] [id number] [place]YE[place] [id number] Jan, Anticoagulant long-term use Z79.01 [facility] [address] [id number] EYE[place] [id number] Jan, Anticoagulant long-term use Z79.01 [facility] [address] [address] Jan, Anticoagulant long-term use Z79.01 [facility] [address] [id number] EYE[place] [id number] Jan, Anticoagulant long-term use Z79.01 [facility] [address] [address] Jan, Anticoagulant long-term use Z79.01 [facility] [address] [facility] [address] [id number] EYE[place] [id number] Jan, Anticoagulant long-term use Z79.01 [facility] [address] [address] Jan, [facility] [address] [id number] [place]YE[place] [id number] Jan, Anticoagulant long-term use Z79.01 [facility] [address] [address] Jan, [facility] [address] [address] Jan, Other chronic pain G89.29 [place] [id number] [place] [address] Jan, Anticoagulant long-term use Z79.01 [facility] [address] [id number] [place]YE[place] [id number] Dec, Anticoagulant long-term use Z79.01 [facility] [id number] [place] [address] Dec, Anticoagulant long-term use Z79.01 [facility] [address] [id number] [place]YE[place] [id number] Dec, Anticoagulant long-term use Z79.01 [facility] [address] [id number] EYE[place] [id number] Dec, Anticoagulant long-term use Z79.01 [facility] [id number] [place] [address] Dec, Anticoagulant long-term use Z79.01 [facility] [id number] [place] [address] Dec, Anticoagulant long-term use Z79.01 [facility] [id number] [place] [address] Dec, Anticoagulant long-term use Z79.01 [facility] [id number] [place] [address] Dec, Other chronic pain G89.29 [facility] [id number] [place] [address] Dec, Anticoagulant long-term use Z79.01 [facility] [id number] [place] [address] Dec, [facility] [address] [id number] Dec, Other chronic pain G89.29 [facility] [address] [id number] [place]YE[place] [id number] Dec, Anticoagulant long-term use Z79.01 [facility] [id number] [place] [address] Nov, Anticoagulant long-term use Z79.01 [facility] [address] [id number] [place]YE[place] [id number] Nov, Anticoagulant long-term use Z79.01 [facility] [address] [address] Nov, Anticoagulant long-term use Z79.01 [place] [address] [address] Nov, Other chronic pain G89.29 [place] [address] [address] 12 Nov, 2018 Other chronic pain G89.29 [place] [address] [address] Nov, Anticoagulant long-term use Z79.01 [facility] [address] [id number] [place]YE[place] [id number] Nov, Factor V Leiden D68.51 [facility] [address] [id number] [place]YE[place] [id number] Nov, Factor V Leiden D68.51 [place] [address] [address] Nov, Anticoagulant long-term use Z79.01 [facility] [address] [id number] EYE[place] [id number] Nov, Anticoagulant long-term use Z79.01 [place] [address] [address] Nov, Essential hypertension I10 ; Factor V Le iden D68.51 and Anticoagulant long-term use Z79.01 [facility] [address] [id number] [place]YE[place] [id number] Oct, Anticoagulant long-term use Z79.01 [place] [address] [address] Oct, [place] [id number] [place] [address] Oct, Anticoagulant long-term use Z79.01 [facility] [address] [address] Oct, Other chronic pain G89.29 [facility] [address] [address] Oct, Anticoagulant long-term use Z79.01 [facility] [address] [address] Oct, [place] [address] [address] Sep, Anticoagulant long-term use Z79.01 [facility] [address] [facility] [address] [id number] [place]YE[place] [id number] Sep, Anticoagulant long-term use Z79.01 [place] [address] [address] Sep, Other chronic pain G89.29 [place] [address] [address] Sep, Anticoagulant long-term use Z79.01 [facility] [address] [facility] [address] [id number] EYE[place] [id number] Sep, Anticoagulant long-term use Z79.01 [place] [address] [address] Aug, Anticoagulant long-term use Z79.01 [place] [address] [address] Aug, Anticoagulant long-term use Z79.01 [place] [address] [address] Aug, Other chronic pain G89.29 [place] [address] [address] Aug, Other chronic pain G89.29 ; Anticoagulan t long-term use Z79.01 ; 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.09X0 ; Oral pain K13.79 ; Dental infection K04.7 ; Essential hypertension I10 and Pure hypercholesterolemia E78.00 [place] [address] [address] July, Other chronic pain G89.29 [place] [address] [address] Jun, Other chronic pain G89.29 [place] [address] [address] Jun, [place] [address] [address] Jun, [facility] [address] [id number] [place] [id number] Jun, Anticoagulant long-term use Z79.01 and I diopathic chronic gout of multiple sites without tophus M1A.09X0 [place] [address] [address] May, Other chronic pain G89.29 [place] [address] [address] May, [place] [address] [address] May, Anticoagulant long-term use Z79.01 [place] [address] [address] May, [facility] [address] [id number] [place] [id number] May, Anticoagulant long-term use Z79.01 [place] [address] [address] May, Anticoagulant long-term use Z79.01 [place] [address] [address] May, Anticoagulant long-term use Z79.[address] [facility] [address] [id number] [place]YE[place] [id number] May, Factor V Leiden D68.51 [place] [address] [id number] Apr, Other chronic pain G89.29 [place] [address] [address] Apr, Idiopathic chronic gout of multiple site s without tophus M1A.09X0 [address] [id number] [place] [id number] Apr, Anticoagulant long-term use Z79.[address] [id number] [place] [id number] Apr, Anticoagulant long-term use Z79.01 ; Med ication side effect T88.7XXA and 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.09X0 [place] [address] [id number] Apr, [place] [address] [address] Apr, Anticoagulant long-term use Z79.01 [place] [address] [address] Apr, Medication side effect T88.7XXA and Fact or V Leiden D68.51 [place] [address] [address] Apr, Idiopathic chronic gout of multiple site s without tophus M1A.09X0 and Anticoagulant long-term use Z79.01 [facility] [address] [facility] [id number] EYE[place] [id number] Mar, Factor V Leiden D68.51 and Anticoagulant long-term use Z79.01 [place] [address] [address] Mar, Factor V Leiden D68.51 ; Anticoagulant l chuck-term use Z79.01 ; 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.09X0 ; Pure hypercholesterolemia E78.00 ; Other chronic pain G89.29 and BMI 40.0-44.9, adult Z68.41 [place] [address] [address] Mar, [place] [address] [address] Mar, Other chronic pain G89.29 [place] [address] [address] Feb, Idiopathic chronic gout of multiple site s without tophus M1A.09X0 [address] [id number] EYE[place] [id number] Feb, Anticoagulant long-term use Z79.01 and I diopathic chronic gout of multiple sites without tophus M1A.09X0 [place] [address] [address] Feb, Anticoagulant long-term use Z79.01 and I diopathic chronic gout of multiple sites without tophus M1A.09X0 [place] [address] [address] Feb, [place] [address] [address] Feb, Other chronic pain G89.29 [place] [address] [address] Jan, Other chronic pain G89.29 [place] [address] [address] Dec, Other chronic pain G89.29 [place] [address] [address] Dec, Anticoagulant long-term use Z79.01 [place] [address] [address] Dec, Chronic prescription opiate use Z79.899 ; Factor V Leiden D68.51 ; Other chronic pain G89.29 and Anticoagulant long-term use Z79.01 [place] [address] [address] Nov, Other chronic pain G89.29 [place] [address] [address] Oct, Other chronic pain G89.29 [place] [address] [address] Sep, Other chronic pain G89.29 [place] [address] [address] Aug, Other chronic pain G89.29 [place] [address] [address] Aug, Venous stasis ulcers, left I83.029 [place] [address] [address] July, Other chronic pain G89.29 [place] [address] [address] July, Venous stasis ulcers, left I83.029 and S noring R06.83 [place] [address] [address] Jun, Idiopathic chronic gout of multiple site s without tophus M1A.09X0 [place] [address] [address] Jun, Acute renal insufficiency N28.9 [place] [address] [address] Jun, Other chronic pain G89.29 [place] [address] [address] Jun, Acute renal insufficiency N28.9 [facility] [address] [id number] [place] [id number] Jun, Idiopathic chronic gout of multiple site s without tophus M1A.09X0 ; Essential hypertension I10 and Anticoagulant long-term use Z79.01 [place] [address] [id number] Jun, Anticoagulant long-term use Z79.01 and E ssential hypertension I10 [place] [address] [address] May, Idiopathic chronic gout of multiple site s without tophus M1A.09X0 [place] [address] [address] May, [place] [address] [id number] May, Essential hypertension I10 ; Pure hyperc holesterolemia E78.00 ; Anticoagulant long-term use Z79.01 and 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.09X0 [place] [address] [address] May, Other chronic pain G89.29 [place] [address] [address] May, Anticoagulant long-term use Z79.01 [place] [address] [address] May, Chronic prescription opiate use Z79.899 ; Other chronic pain G89.29 ; Essential hypertension I10 ; Factor V Leiden D68.51 ; Anticoagulant long-term use Z79.01 ; Pure hypercholesterolemia E78.00 ; Venous stasis ulcers, left I83.029 ; 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.09X0 and Cellulitis of left lower extremity L03.116 [place] [address] [address] Apr, Other chronic pain G89.29 [place] [address] [address] Mar, Other chronic pain G89.29 [place] [address] [id number] Mar, Factor V Leiden D68.51 ; Pure hyperchole sterolemia E78.00 and Other chronic pain G89.29 [place] [address] [id number] Feb, Other chronic pain G89.29 [place] [address] [place] [address] [address] Jan, Idiopathic chronic gout of multiple site s without tophus M1A.09X0 [place] [address] [address] 08 Jan, 2017 Other chronic pain G89.29 [place] [address] [address] [address] Dec, Anticoagulant long-term use Z79.01 ; Fac tor V Leiden D68.51 and Other chronic pain G89.29 [place] [address] [address] Dec, Other chronic pain G89.29 [place] [address] [address] Nov, Other chronic pain G89.29 [place] [address] [id number] Oct, Other chronic pain G89.29 [place] [address] [address] Sep, Anticoagulant long-term use Z79.01 [place] [address] [address] Sep, Chronic prescription opiate use Z79.899 ; Anticoagulant long-term use Z79.01 ; Essential hypertension I10 ; Pure hypercholesterolemia E78.00 ; Factor V Leiden D68.51 ; Venous stasis ulcers, left I83.029 ; Other chronic pain G89.29 and 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.09X0 [place] [address] [address] Aug, Anticoagulant long-term use Z79.01 [place] [id number] [place] [address] Aug, Other chronic pain G89.29 [place] [address] [address] Aug, Essential hypertension I10 and Factor V Leiden D68.[address] [id number] [id number] 15 Aug, 2016 Acute right ankle pain M25.571 and Tendo nitis of ankle M77.50 [place] [address] [address] Aug, [place] [address] [address] July, Other chronic pain G89.29 [place] [address] [address] Jun, Other chronic pain G89.29 [place] [address] [address] Jun, Other chronic pain G89.29 [place] [address] [address] Jun, Anticoagulant long-term use Z79.01 [place] [address] [address] May, Other chronic pain G89.29 [place] [address] [address] May, Anticoagulant long-term use Z79.01 [place] [address] [address] May, Other chronic pain G89.29 [place] [address] [id number] Apr, Anticoagulant long-term use Z79.01 [place] [address] [address] Apr, Other chronic pain G89.29 [facility] [address] [address] Apr, Anticoagulant long-term use Z79.01 and P ure hypercholesterolemia E78.00 [facility] [address] [address] Mar, [facility] [address] [address] Mar, Anticoagulant long-term use Z79.01 [place] [address] [address] Mar, Other chronic pain G89.29 [place] [address] [address] Feb, Essential hypertension I10 ; Chronic pre scription opiate use Z79.899 ; Other chronic pain G89.29 ; Screening Z13.9 ; Factor V Leiden D68.51 ; Anticoagulant long-term use Z79.01 ; Venous stasis dermatitis of left lower extremity I83.12 and Pure hypercholesterolemia E78.00 [place] [address] [address] 14 Jan, 2016 Anticoagulant long-term use Z79.01 [facility] [address] [address] Jan, Anticoagulant long-term use Z79.01 [facility] [address] [address] 09 Jan, 2016 [facility] [address] [address] Jan, [place] [address] [address] Dec, [place] [address] [address] 14 Nov, 2015 [place] [address] [address] Oct, Anticoagulant long-term use Z79.01 [place] [address] [address] Oct, [place] [address] [address] Oct, Anticoagulant long-term use Z79.01 [place] [address] [address] Sep, [place] [address] [address] Aug, [place] [address] [address] Aug, Chronic prescription opiate use Z79.899 ; Other chronic pain G89.29 ; Essential hypertension I10 and Pure hypercholesterolemia E78.0 [place] [address] [address] July, Hyperlipidemia, group D E78.3 and Antico agulant long-term use Z79.01 [place] [address] [address] July, Hyperlipidemia, group D E78.3 ; Essentia l hypertension I10 and Factor V Leiden D68.51 [place] [address] [address] July, Essential hypertension I10 [place] [address] [address] Jun, Hyperlipidemia, group D E78.3 [place] [address] [address] Jun, Factor V Leiden D68.51 [place] [address] [address] May, Factor V Leiden D68.51 ; Hyperlipidemia, group D E78.3 ; Essential hypertension I10 ; Other chronic pain G89.29 and Anticoagulant long-term use Z79.01 [place] [address] [address] May, Anticoagulant long-term use Z79.01 [facility] [address] [address] May, Anticoagulant long-term use Z79.01 [facility] [address] [address] May, [facility] [address] [address] Apr, [facility] [address] [address] Mar, [facility] [address] [address] Mar, [place] [address] [address] Feb, Anticoagulant long-term use Z79.01 [place] [address] [address] Feb, Chronic prescription opiate use Z79.899 ; Other chronic pain G89.29 ; Hyperlipidemia, group D E78.3 ; Factor V Leiden D68.51 and Anticoagulant long- term use Z79.01 [place] [address] [address] Feb, [place] [address] [address] Jan, [place] [address] [address] Dec, Hyperlipidemia, unspecified E78.5 [place] [address] [address] 15 Dec, 2014 Cellulitis of left lower extremity L03.1 16 ; Venous stasis ulcers, left I83.029 and Factor V Leiden D68.51 [place] [address] [address] 09 Dec, 2014 Hyperlipidemia 272.4 and 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 [place] [address] [address] Dec, [facility] [address] [address] Nov, 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 [facility] [address] [address] Nov, [facility] [address] [address] Nov, [facility] [address] [address] Nov, [facility] [address] [address] Oct, [facility] [address] [address] Oct, Hyperlipidemia 272.4 ; Chronic pain diso rder 338.4 ; Venous stasis ulcer of left lower extremity 454.0 and 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 [facility] [address] [address] Sep, [facility] [address] [address] Sep, [facility] [address] [address] Sep, Hyperlipidemia 272.4 and 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 [facility] [address] [address] Aug, [facility] [address] [address] Aug, 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 [facility] [address] [address] July, [facility] [address] [address] July, Essential hypertension, benign 401.1 ; F actor 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 ; Chronic pain disorder 338.4 ; Hyperlipidemia 272.4 and Venous stasis ulcer of left lower extremity 454.0 [facility] [address] [facility] [id number] [place] [address] 14 Jun, 2014 [facility] [address] [id number] [place] [address] 13 Jun, 2014 [facility] [address] [id number] [place] [address] 13 May, 2014 [facility] [address] [id number] [place] [address] May, [facility] [address] [facility] [id number] [place] [address] 20 Apr, 2014 [facility] [address] [id number] [place] [address] Apr, [facility] [address] [id number] [place] [address] 18 Apr, 2014 [facility] [address] [id number] [place] [address] 18 Apr, 2014 [facility] [address] [id number] [place] [address] Apr, [facility] [address] [id number] [place] [address] Apr, [facility] [address] [id number] [place] [address] 15 Mar, 2014 [facility] [address] [id number] [place] [address] Mar, [facility] [facility] [address] [id number] [place] [address] Mar, [facility] [address] [id number] [place] [address] Mar, [facility] [address] [id number] [place] [address] Feb, [facility] [place] [facility] [address] [id number] [place] [address] Feb, [facility] [place] [address] [id number] [place] [address] Feb, [facility] [address] [facility] [id number] [place] [address] Feb, [facility] [place] [address] [id number] [place] [address] Jan, [facility] [place] [address] [id number] [place] [address] Jan, [facility] [place] [address] [id number] [place] [address] Jan, [facility] [place] [address] [id number] [place] [address] Jan, [facility] [address] [id number] [place] [address] Jan, [facility] [address] [id number] [place] [address] Jan, [facility] [place] [address] [id number] [place] [address] Dec, [facility] [place] [address] [id number] [place] [address] Dec, [facility] [place] [address] [id number] [place] [address] Oct, [facility] [place] [address] [id number] [place] [address] Oct, [facility] [address] [id number] [place] [address] Sep, [facility] [place] [address] [id number] [place] [address] Sep, [facility] [place] [address] [id number] [place] [address] Sep, [facility] [address] [id number] [place] [address] Sep, [facility] [place] [address] [id number] [place] [address] Aug, [facility] [place] [address] [id number] [place] [address] Aug, [facility] [place] [address] [id number] [place] [address] July, [facility] [place] [address] [id number] [place] [address] July, [facility] [address] [id number] [place] [address] Jun, [facility] [address] [id number] [place] [address] Jun, [facility] [place] [address] [id number] [place] [address] May, [facility] [address] [id number] [place] [address] May, [facility] [address] [id number] [place] [address] Apr, [facility] [address] [id number] [place] [address] Apr, [facility] [address] [id number] [place] [address] Mar, [facility] [address] [id number] [place] [address] Mar, [facility] [address] [id number] [place] [address] Jan, [facility] [address] [id number] [place] [address] Jan, [facility] [address] [id number] [place] [address] Jan, [facility] [address] [id number] [place] [address] Jan, [facility] [address] [id number] [place] [address] Jan, [facility] [address] [id number] [place] [address] Dec, [facility] [address] [id number] [place] [address] Dec, [facility] [address] [id number] [place] [address] Dec, [facility] [address] [id number] [place] [address] Nov, [facility] [address] [id number] [place] [address] Nov, [facility] [address] [id number] [place] [address] Sep, [facility] [address] [id number] [place] [address] Sep, [facility] [address] [id number] [place] [address] Aug, [facility] [place] [id number] [place] [address] Aug, [facility] [id number] [id number] July, [facility] [place] [id number] [place] [id number] Jun, [facility] [place] [address] [id number] [id number] Apr[place] [facility] [id number] [id number] Mar, [facility] [address] [id number] [place] [address] Mar, [facility] [place] [address] [id number] [id number] Mar, [facility] [id number] [place] [address] Mar, [facility] [address] [id number] [id number] Feb, [facility] [id number] [place] [address] Feb, [facility] [address] [id number] [place] [id number] Feb, [facility] [id number] [place] [address] Feb, [facility] [address] [id number] [id number] Oct, [facility] [address] [id number] [place] [id number] Oct, [facility] [address] [id number] [id number] July, [facility] [address] [id number] [id number] July, [facility] [address] [id number] [id number] Jun, [facility] [address] [id number] [id number] Jun, [facility] [address] [id number] [id number] Jun, [facility] [address] [id number] [place] [id number] Mar, [facility] [address] [id number] [id number] Mar, [facility] [id number] [place] [address] Feb, [facility] [address] [address] Feb, [facility] [id number] [place] [address] Jan, [facility] [address] [address] Jan, [facility] [address] [address] Jan, [facility] [address] [address] Jan, [facility] [address] [address] Jan, [facility] [address] [facility] [id number] [place] [address] Aug, [facility] [address] [facility] [id number] [place] [address] 17 Apr, 2010 IMMUNIZATIONS No Known Immunizations [...]
--- OUTSIDE RECORDS SUMMARY | 2019-11-08 13:00 | XMS REPORT ---
Author Author Zana ORTIZ [facility] Address [address] [place] [address] Care Team Providers Care Animal Health Technician Name Role Phone AVANI ORTIZ Unavailable PROBLEMS Type Condition ICD9-CM Code ABC72-RN Code Onset Dates Condition S tatus SNOMED Code Problem Factor V Leiden D68.51 Active 3070 15928 Problem Anticoagulant long-term use Z79.01 Ac tive 426973671 Problem Post-phlebitic syndrome I87.009 Active 16716401 Problem 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 79125808 Problem Other chronic pain G89.29 Active 8 8849530 Problem Venous stasis ulcers, left I83.029 Act ozzy 503488704 Problem Essential hypertension I10 Active 46190405 Problem Venous anomaly Q27.9 Active 45763 4003 Problem Congenital single kidney Q60.0 Activ e 29692191 Problem Chronic prescription opiate use Z79.899 Active 765182920 Problem Pure hypercholesterolemia E78.00 Acti ve [id number] ALLERGIES No Information ENCOUNTERS Encounter Location Date Diagnosis [place] [address] [id number] [place] [id number] Mar, Anticoagulant long-term use Z79.01 [place] [address] [place] [id number] [place] [address] Mar, Anticoagulant long-term use Z79.01 [facility] [id number] [place] [address] Mar, Pure hypercholesterolemia E78.00 [facility] [address] [id number] [id number] Mar, Anticoagulant long-term use Z79.01 [place] [address] [place] [address] Mar, Other chronic pain G89.29 [place] [address] [address] Feb, Anticoagulant long-term use Z79.01 and E ssential hypertension I10 [place] [address] [address] Feb, Anticoagulant long-term use Z79.01 ; Ess ential hypertension I10 ; Chronic prescription opiate use Z79.899 ; Other chronic pain G89.29 ; Venous stasis ulcers, left I83.029 ; 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.09X0 and Pure hypercholesterolemia E78.00 [facility] [address] [id number] [id number] Feb, Anticoagulant long-term use Z79.01 [place] [address] [address] Feb, Anticoagulant long-term use Z79.01 [place] [address] [address] Feb, Other chronic pain G89.29 [facility] [address] [id number] [id number] Feb, Anticoagulant long-term use Z79.01 [place] [address] [address] Jan, Anticoagulant long-term use Z79.01 [facility] [address] [id number] [place] [id number] Jan, Anticoagulant long-term use Z79.01 [facility] [address] [id number][place] [id number] Jan, Anticoagulant long-term use Z79.01 [place] [address] [address] Jan, Anticoagulant long-term use Z79.01 [facility] [address] [id number][place] [id number] Jan, Anticoagulant long-term use Z79.01 [facility] [id number] [place] [address] Jan, Anticoagulant long-term use Z79.01 [facility] [address] [id number], [place] [id number] Jan, Anticoagulant long-term use Z79.01 [facility] [address] [place] [address] Jan, [facility] [address] [id number] [id number] Jan, Anticoagulant long-term use Z79.01 [facility] [address] [address] Jan, [facility] [address] [address] Jan, Other chronic pain G89.29 [facility] [address] [address] Jan, Anticoagulant long-term use Z79.01 [facility] [address] [id number][place] [id number] Dec, Anticoagulant long-term use Z79.01 [facility] [id number] [place] [address] Dec, Anticoagulant long-term use Z79.01 [facility] [address] [id number][place] [id number] Dec, Anticoagulant long-term use Z79.01 [facility] [address] [id number], [place] [id number] Dec, Anticoagulant long-term use Z79.01 [facility] [address] [address] Dec, Anticoagulant long-term use Z79.01 [facility] [address] [place] [address] Dec, Anticoagulant long-term use Z79.01 [facility] [address] [place] [address] Dec, Anticoagulant long-term use Z79.01 [place] [address] [place] [address] Dec, Other chronic pain G89.29 [place] [address] [place] [address] Dec, Anticoagulant long-term use Z79.01 [place] [address] [address] Dec, [place] [address] [address] Dec, Other chronic pain G89.29 [facility] [address] [id number] [place] [id number] Dec, Anticoagulant long-term use Z79.01 [place] [address] [address] Nov, Anticoagulant long-term use Z79.01 [facility] [address] [id number], [place] [id number] Nov, Anticoagulant long-term use Z79.01 [place] [address] [address] Nov, Anticoagulant long-term use Z79.01 [place] [address] [address] Nov, Other chronic pain G89.29 [place] [address] [address] Nov, Other chronic pain G89.29 [place] [address] [address] Nov, Anticoagulant long-term use Z79.[address] [facility] [address] [id number] [place] [id number] Nov, Factor V Leiden D68.[address] [facility] [address] [id number] [place] [id number] Nov, Factor V Leiden D68.51 [place] [address] [place] [id number] Nov, Anticoagulant long-term use Z79.01 [facility] [address] [id number][place] [address] Nov, Anticoagulant long-term use Z79.01 [place] [address] [place] [id number] Nov, Essential hypertension I10 ; Factor V Le iden D68.51 and Anticoagulant long-term use Z79.01 [facility] [address] [id number] [id number] Oct, Anticoagulant long-term use Z79.01 [place] [address] [address] Oct, [place] [address] [place] [id number] Oct, Anticoagulant long-term use Z79.01 [place] [address] [address] Oct, Other chronic pain G89.29 [place] [address] [place] [id number] Oct, Anticoagulant long-term use Z79.01 [place] [address] [address] Oct, [place] [address] [place] [id number] Sep, Anticoagulant long-term use Z79.01 [facility] [address] [id number][place] [address] Sep, Anticoagulant long-term use Z79.01 [place] [address] [address] Sep, Other chronic pain G89.29 [place] [address] [place] [id number] Sep, Anticoagulant long-term use Z79.01 [facility] [address] [id number] [place] [id number] Sep, Anticoagulant long-term use Z79.01 [facility] [id number] [place] [address] Aug, Anticoagulant long-term use Z79.01 [place] [address] [address] Aug, Anticoagulant long-term use Z79.01 [place] [address] [address] Aug, Other chronic pain G89.29 [place] [address] [place] [address] Aug, Other chronic pain G89.29 ; Anticoagulan t long-term use Z79.01 ; 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.09X0 ; Oral pain K13.79 ; Dental infection K04.7 ; Essential hypertension I10 and Pure hypercholesterolemia E78.00 [place] [address] [address] July, Other chronic pain G89.29 [place] [address] [place] [address] Jun, Other chronic pain G89.29 [place] [address] [place] [address] Jun, [place] [address] [place] [address] Jun, [facility] [address] [id number] [place] [id number] Jun, Anticoagulant long-term use Z79.01 and I diopathic chronic gout of multiple sites without tophus M1A.09X0 [place] [address] [place] [address] May, Other chronic pain G89.29 [place] [id number] [place] [address] 14 May, 2018 [place] [address] [address] May, Anticoagulant long-term use Z79.01 [place] [address] [place] [address] May, [facility] [address] [id number], [place] [address] May, Anticoagulant long-term use Z79.01 [place] [address] [address] May, Anticoagulant long-term use Z79.01 [place] [address] [address] May, Anticoagulant long-term use Z79.01 [facility] [address] [id number][place] [address] May, Factor V Leiden D68.51 [place] [address] [address] Apr, Other chronic pain G89.29 [place] [address] [address] Apr, Idiopathic chronic gout of multiple site s without tophus M1A.09X0 [facility] [address] [id number][place] [id number] Apr, Anticoagulant long-term use Z79.01 [facility] [address] [id number][place] [id number] Apr, Anticoagulant long-term use Z79.01 ; Med ication side effect T88.7XXA and 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.09X0 [place] [address] [place] [address] Apr, [place] [address] [address] Apr, Anticoagulant long-term use Z79.01 [place] [address] [address] Apr, Medication side effect T88.7XXA and Fact or V Leiden D68.51 [place] [address] [address] Apr, Idiopathic chronic gout of multiple site s without tophus M1A.09X0 and Anticoagulant long-term use Z79.[address] [id number] [id number] Mar, Factor V Leiden D68.51 and Anticoagulant long-term use Z79.01 [place] [address] [address] Mar, Factor V Leiden D68.51 ; Anticoagulant l chuck-term use Z79.01 ; 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.09X0 ; Pure hypercholesterolemia E78.00 ; Other chronic pain G89.29 and BMI 40.0-44.9, adult Z68.41 [place] [address] [address] Mar, [place] [address] [place] [id number] Mar, Other chronic pain G89.29 [place] [address] [address] Feb, Idiopathic chronic gout of multiple site s without tophus M1A.09X0 [address] [id number], [place] [id number] Feb, Anticoagulant long-term use Z79.01 and I diopathic chronic gout of multiple sites without tophus M1A.09X0 [place] [address] [address] Feb, Anticoagulant long-term use Z79.01 and I diopathic chronic gout of multiple sites without tophus M1A.09X0 [facility] [address] [address] Feb, [facility] [address] [address] Feb, Other chronic pain G89.29 [facility] [address] [address] Jan, Other chronic pain G89.29 [facility] [address] [address] Dec, Other chronic pain G89.29 [facility] [address] [address] Dec, Anticoagulant long-term use Z79.01 [facility] [address] [address] Dec, Chronic prescription opiate use Z79.899 ; Factor V Leiden D68.51 ; Other chronic pain G89.29 and Anticoagulant long-term use Z79.01 [facility] [address] [address] Nov, Other chronic pain G89.29 [facility] [address] [address] Oct, Other chronic pain G89.29 [facility] [address] [address] Sep, Other chronic pain G89.29 [facility] [address] [address] Aug, Other chronic pain G89.29 [facility] [address] [address] Aug, Venous stasis ulcers, left I83.029 [facility] [address] [address] July, Other chronic pain G89.29 [facility] [address] [address] July, Venous stasis ulcers, left I83.029 and S noring R06.83 [place] [address] [place] [id number] Jun, Idiopathic chronic gout of multiple site s without tophus M1A.09X0 [place] [address] [address] Jun, Acute renal insufficiency N28.9 [place] [address] [place] [address] [address] Jun, Other chronic pain G89.29 [place] [address] [address] Jun, Acute renal insufficiency N28.[address] [id number] [id number] Jun, Idiopathic chronic gout of multiple site s without tophus M1A.09X0 ; Essential hypertension I10 and Anticoagulant long-term use Z79.01 [place] [address] [place] [id number] Jun, Anticoagulant long-term use Z79.01 and E ssential hypertension I10 [place] [address] [place] [id number] May, Idiopathic chronic gout of multiple site s without tophus M1A.09X0 [place] [address] [address] May, [place] [address] [place] [id number] May, Essential hypertension I10 ; Pure hyperc holesterolemia E78.00 ; Anticoagulant long-term use Z79.01 and 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.09X0 [place] [address] [place] [id number] May, Other chronic pain G89.29 [place] [address] [place] [id number] May, Anticoagulant long-term use Z79.01 [place] [address] [address] May, Chronic prescription opiate use Z79.899 ; Other chronic pain G89.29 ; Essential hypertension I10 ; Factor V Leiden D68.51 ; Anticoagulant long-term use Z79.01 ; Pure hypercholesterolemia E78.00 ; Venous stasis ulcers, left I83.029 ; 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.09X0 and Cellulitis of left lower extremity L03.116 [place] [address] [address] Apr, Other chronic pain G89.29 [place] [address] [place] [id number] Mar, Other chronic pain G89.29 [place] [address] [address] Mar, Factor V Leiden D68.51 ; Pure hyperchole sterolemia E78.00 and Other chronic pain G89.29 [place] [address] [address] Feb, Other chronic pain G89.29 [place] [address] [address] Jan, Idiopathic chronic gout of multiple site s without tophus M1A.09X0 [place] [address] [address] Jan, Other chronic pain G89.29 [place] [address] [address] Dec, Anticoagulant long-term use Z79.01 ; Fac tor V Leiden D68.51 and Other chronic pain G89.29 [place] [address] [address] Dec, Other chronic pain G89.29 [place] [address] [address] Nov, Other chronic pain G89.29 [place] [address] [address] Oct, Other chronic pain G89.29 [place] [address] [address] Sep, Anticoagulant long-term use Z79.01 [place] [address] [address] Sep, Chronic prescription opiate use Z79.899 ; Anticoagulant long-term use Z79.01 ; Essential hypertension I10 ; Pure hypercholesterolemia E78.00 ; Factor V Leiden D68.51 ; Venous stasis ulcers, left I83.029 ; Other chronic pain G89.29 and 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.09X0 [place] [address] [address] Aug, Anticoagulant long-term use Z79.01 [place] [address] [address] Aug, Other chronic pain G89.29 [place] [address] [address] Aug, Essential hypertension I10 and Factor V Leiden D68.51 [place] [address] [id number] [place] [id number] 15 Aug, 2016 Acute right ankle pain M25.571 and Tendo nitis of ankle M77.50 [place] [address] [place] [address] Aug, [place] [address] [address] July, Other chronic pain G89.29 [place] [address] [address] Jun, Other chronic pain G89.29 [place] [address] [address] Jun, Other chronic pain G89.29 [place] [address] [place] [id number] Jun, Anticoagulant long-term use Z79.01 [place] [address] [place] [id number] May, Other chronic pain G89.29 [place] [address] [address] May, Anticoagulant long-term use Z79.01 [place] [address] [place] [id number] May, Other chronic pain G89.29 [place] [address] [place] [address] Apr, Anticoagulant long-term use Z79.01 [place] [address] [address] Apr, Other chronic pain G89.29 [place] [address] [address] Apr, Anticoagulant long-term use Z79.01 and P ure hypercholesterolemia E78.00 [place] [address] [place] 078477[address] Mar, [place] [address] [place] [id number] Mar, Anticoagulant long-term use Z79.01 [place] [address] [address] Mar, Other chronic pain G89.29 [place] [address] [address] Feb, Essential hypertension I10 ; Chronic pre scription opiate use Z79.899 ; Other chronic pain G89.29 ; Screening Z13.9 ; Factor V Leiden D68.51 ; Anticoagulant long-term use Z79.01 ; Venous stasis dermatitis of left lower extremity I83.12 and Pure hypercholesterolemia E78.00 [place] [address] [place] [id number] 14 Jan, 2016 Anticoagulant long-term use Z79.01 [facility] [address] [address] 10 Jan, 2016 Anticoagulant long-term use Z79.01 [facility] [address] [place] [address] 09 Jan, 2016 [facility] [address] [address] Jan, [facility] [address] [address] Dec, [place] [address] [address] Nov, [facility] [address] [address] Oct, Anticoagulant long-term use Z79.01 [place] [address] [address] Oct, [facility] [address] [address] Oct, Anticoagulant long-term use Z79.01 [place] [address] [address] Sep, [place] [address] [address] Aug, [facility] [address] [address] Aug, Chronic prescription opiate use Z79.899 ; Other chronic pain G89.29 ; Essential hypertension I10 and Pure hypercholesterolemia E78.0 [place] [address] [address] July, Hyperlipidemia, group D E78.3 and Antico agulant long-term use Z79.01 [facility] [address] [address] July, Hyperlipidemia, group D E78.3 ; Essentia l hypertension I10 and Factor V Leiden D68.51 [place] [address] [address] July, Essential hypertension I10 [place] [address] [address] Jun, Hyperlipidemia, group D E78.3 [place] [address] [address] Jun, Factor V Leiden D68.51 [place] [address] [address] May, Factor V Leiden D68.51 ; Hyperlipidemia, group D E78.3 ; Essential hypertension I10 ; Other chronic pain G89.29 and Anticoagulant long-term use Z79.01 [place] [address] [address] May, Anticoagulant long-term use Z79.01 [place] [address] [address] May, Anticoagulant long-term use Z79.01 [place] [address] [address] May, [place] [address] [address] Apr, [place] [address] [address] Mar, [place] [address] [address] Mar, [place] [address] [address] Feb, Anticoagulant long-term use Z79.01 [place] [address] [address] Feb, Chronic prescription opiate use Z79.899 ; Other chronic pain G89.29 ; Hyperlipidemia, group D E78.3 ; Factor V Leiden D68.51 and Anticoagulant long- term use Z79.01 [facility] [address] [address] Feb, [facility] [address] [address] Jan, [facility] [address] [address] Dec, Hyperlipidemia, unspecified E78.5 [place] [address] [address] Dec, Cellulitis of left lower extremity L03.1 16 ; Venous stasis ulcers, left I83.029 and Factor V Leiden D68.51 [place] [address] [address] Dec, Hyperlipidemia 272.4 and 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 [place] [address] [address] Dec, [facility] [address] [address] Nov, 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 [place] [address] [address] Nov, [facility] [address] [address] Nov, [place] [address] [address] Nov, [facility] [address] [address] Oct, [facility] [address] [address] Oct, Hyperlipidemia 272.4 ; Chronic pain diso rder 338.4 ; Venous stasis ulcer of left lower extremity 454.0 and 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 [facility] [address] [address] Sep, [facility] [address] [place] [address] 13 Sep, 2014 [facility] [address] [address] Sep, Hyperlipidemia 272.4 and 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 [facility] [address] [address] Aug, [facility] [address] [address] Aug, 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 [facility] [address] [address] July, [facility] [address] [address] July, Essential hypertension, benign 401.1 ; F actor 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 ; Chronic pain disorder 338.4 ; Hyperlipidemia 272.4 and Venous stasis ulcer of left lower extremity 454.0 [facility] [address] [address] 14 Jun, 2014 [facility] [address] [address] Jun, [facility] [address] [address] May, [facility] [address] [address] May, [facility] [address] [address] Apr, [facility] [address] [address] Apr, [facility] [address] [address] Apr, [facility] [address] [address] Apr, [facility] [address] [address] Apr, [facility] [address] [id number] [place] [address] 13 Apr, 2014 [facility] [address] [id number] [place] [address] 15 Mar, 2014 [facility] [address] [id number] [place] [address] 15 Mar, 2014 [facility] [address] [id number] [place] [address] Mar, [facility] [address] [id number] [place] [address] Mar, [facility] [address] [id number] [place] [address] Feb, [facility] [address] [id number] [place] [address] Feb, [facility] [id number] [place] [address] Feb, [facility] [address] [id number] [place] [address] Feb, [facility] [address] [id number] [place] [address] 24 Jan, 2014 [facility] [address] [id number] [place], [place] [address] Jan, [facility] [address] [id number] [place] [address] Jan, [facility] [address] [id number] [place] [address] 14 Jan, 2014 [facility] [address] [id number] [place] [address] 14 Jan, 2014 [facility] [address] [id number] [place] [address] Jan, [facility] [address] [id number] [place] [address] Dec, [facility] [address] [id number] [place] [address] Dec, [facility] [address] [facility] [id number] [place] [address] Oct, [facility] [address] [facility] [id number] [place] [address] Oct, [facility] [address] [id number] [place] [address] Sep, [facility] [address] [id number] [place] [address] Sep, [facility] [address] [facility] [id number] [facility] [address] Sep, [facility] [address] [id number] [place] [address] Sep, [facility] [address] [id number] [place] [address] Aug, [facility] [address] [id number] [place] [address] Aug, [facility] [address] [id number] [place] [address] July, [facility] [address] [id number] [place] [address] July, [facility] [address] [id number] [place] [address] Jun, [facility] [address] [id number] [place] [address] Jun, [facility] [address] [id number] [place] [address] May, [facility] [address] [id number] [place] [address] May, [facility] [address] [id number] [place] [address] Apr, [facility] [address] [id number] [place] [address] Apr, [facility] [address] [id number] [place] [address] Mar, [facility] [address] [id number] [place] [address] Mar, [facility] [address] [id number] [place] [address] Jan, [facility] [address] [id number] [place] [address] Jan, [facility] [address] [id number] [place] [address] Jan, [facility] [address] [id number] [place] [address] Jan, [facility] [address] [id number] [place] [address] Jan, [facility] [address] [id number] [place] [address] Dec, [facility] [address] [id number] [place] [address] Dec, [facility] [address] [id number] [place] [address] Dec, [facility] [address] [id number] [place] [address] Nov, [facility] [address] [id number] [place] [address] Nov, [facility] [address] [id number] [place] [address] Sep, [facility] [address] [id number] [place] [address] Sep, [facility] [id number] [place] [address] Aug, [facility] [address] [id number] [place] [address] Aug, [facility] [id number] [place] [id number] July, [facility] [id number] [id number] Jun, [facility] [id number] [id number] Apr, [facility] [address] [id number] [id number] Mar, [facility] [id number] [place] [address] Mar, [facility] [id number] [place] [address], [place] [id number] Mar, [facility] [id number] [place] [address] Mar, [facility] [id number] [place] [address], [place] [id number] Feb, [facility] [id number] [place] [address] Feb, [facility] [id number] [place] [address], [place] [id number] Feb, [facility] [id number] [place] [address] Feb, [facility] [id number] [place] [address], [place] [id number] Oct, [facility] [id number] [place] [address], [place] [id number] Oct, [facility] [id number] [place] [address], [place] [id number] July, [facility] [id number] [place] [address], [place] [id number] July, [facility] [id number] [place] [address], [place] [id number] Jun, [facility] [id number] [place] [address], [place] [id number] Jun, [facility] [id number] [place] [address], [place] [id number] Jun, [facility] [id number] [place] [address], [place] [id number] Mar, [facility] [address], [place] [id number] Mar, [facility] [address] [id number] [place] [address] Feb, [facility] [id number] [place] [address] Feb, [facility] [address] [address] Jan, [facility] [address] [address] Jan, [facility] [address] [address] Jan, [facility] [address] [address] Jan, [facility] [address] [address] Jan, [facility] [address] [address] Aug, [facility] [id number] [place] [address] Apr, IMMUNIZATIONS No Known Immunizations SOCIAL HISTORY [...]
--- OUTSIDE RECORDS SUMMARY | 2019-11-08 13:00 | XMS REPORT ---
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 86977299 Problem Other chronic pain G89.29 Active 8 3753849 Problem Venous stasis ulcers, left I83.029 Act ozzy 523569208 Problem Essential hypertension I10 Active 48979033 Problem Venous anomaly Q27.9 Active 91259 4003 Problem Congenital single kidney Q60.0 Activ e 29734279 Problem Chronic prescription opiate use Z79.899 Active 116110010 Problem Pure hypercholesterolemia E78.00 Acti ve [id number] ALLERGIES No Information ENCOUNTERS Encounter Location Date Diagnosis [place] [address] [address] Mar, Pure hypercholesterolemia E78.00 [facility] [address] [place] [address] [place] [id number] Mar, Anticoagulant long-term use Z79.01 [facility] [address] [address] Mar, Other chronic pain G89.29 [facility] [address] [address] Feb, Anticoagulant long-term use Z79.01 and E ssential hypertension I10 [facility] [address] [address] Feb, Anticoagulant long-term use Z79.01 ; Ess ential hypertension I10 ; Chronic prescription opiate use Z79.899 ; Other chronic pain G89.29 ; Venous stasis ulcers, left I83.029 ; 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.09X0 and Pure hypercholesterolemia E78.[address] [facility] [address] [id number] [id number] Feb, Anticoagulant long-term use Z79.01 [place] [address] [place] [id number] Feb, Anticoagulant long-term use Z79.01 [place] [address] [place] [address] Feb, Other chronic pain G89.29 [facility] [address] [id number][place] [id number] Feb, Anticoagulant long-term use Z79.01 [place] [address] [address] Jan, Anticoagulant long-term use Z79.01 [facility] [address] [id number][place] [id number] Jan, Anticoagulant long-term use Z79.01 [facility] [address] [id number][place] [id number] Jan, Anticoagulant long-term use Z79.01 [place] [address] [address] Jan, Anticoagulant long-term use Z79.01 [facility] [address] [id number][place] [id number] Jan, Anticoagulant long-term use Z79.01 [place] [address] [address] Jan, Anticoagulant long-term use Z79.01 [facility] [address] [id number][place] [id number] Jan, Anticoagulant long-term use Z79.01 [facility] [address] [facility] [place] [address] Jan, [facility] [address] [id number][place] [id number] Jan, Anticoagulant long-term use Z79.01 [facility] [address] [place] [id number] [place] [address] Jan, [facility] [address] [address] Jan, Other chronic pain G89.29 [place] [address] [place] [id number] [place] [address] Jan, Anticoagulant long-term use Z79.01 [facility] [address] [id number], [place] [id number] Dec, Anticoagulant long-term use Z79.01 [place] [address] [place] [id number] [place] [address] Dec, Anticoagulant long-term use Z79.01 [facility] [address] [id number][place] [id number] Dec, Anticoagulant long-term use Z79.01 [facility] [address] [id number][place] [id number] Dec, Anticoagulant long-term use Z79.01 [place] [address] [place] [id number] [place] [address] Dec, Anticoagulant long-term use Z79.01 [facility] [address] [place] [id number] [place] [address] Dec, Anticoagulant long-term use Z79.01 [place] [address] [place] [id number] [place] [address] Dec, Anticoagulant long-term use Z79.01 [facility] [address] [place] [id number] [place] [address] Dec, Other chronic pain G89.29 [facility] [address] [place] [address] [place] [address] Dec, Anticoagulant long-term use Z79.01 [place] [address] [address] Dec, [place] [address] [address] Dec, Other chronic pain G89.29 [facility] [address] [id number] [id number] Dec, Anticoagulant long-term use Z79.01 [place] [address] [address] Nov, Anticoagulant long-term use Z79.01 [facility] [address] [id number][place] 601[address] Nov, Anticoagulant long-term use Z79.01 [place] [address] [address] Nov, Anticoagulant long-term use Z79.01 [place] [address] [address] Nov, Other chronic pain G89.29 [place] [address] [address] Nov, Other chronic pain G89.29 [place] [address] [address] Nov, Anticoagulant long-term use Z79.01 [facility] [address] [id number][place] [id number] Nov, Factor V Leiden D68.51 [facility] [address] [id number][place] [id number] Nov, Factor V Leiden D68.51 [place] [address] [address] Nov, Anticoagulant long-term use Z79.01 [facility] [address] [id number][place] [id number] Nov, Anticoagulant long-term use Z79.01 [place] [address] [address] Nov, Essential hypertension I10 ; Factor V Le iden D68.51 and Anticoagulant long-term use Z79.01 [facility] [address] [id number] [place] [id number] Oct, Anticoagulant long-term use Z79.01 [place] [address] [address] Oct, [place] [address] [address] Oct, Anticoagulant long-term use Z79.01 [place] [address] [address] Oct, Other chronic pain G89.29 [place] [address] [address] Oct, Anticoagulant long-term use Z79.01 [place] [address] [address] Oct, [place] [address] [address] Sep, Anticoagulant long-term use Z79.01 [facility] [address] [id number] [place] [id number] Sep, Anticoagulant long-term use Z79.01 [place] [address] [address] Sep, Other chronic pain G89.29 [place] [address] [address] Sep, Anticoagulant long-term use Z79.01 [facility] [address] [id number] [place] [id number] Sep, Anticoagulant long-term use Z79.01 [place] [address] [address] Aug, Anticoagulant long-term use Z79.01 [facility] [address] [address] Aug, Anticoagulant long-term use Z79.01 [facility] [address] [address] Aug, Other chronic pain G89.29 [place] [address] [place] [address] Aug, Other chronic pain G89.29 ; Anticoagulan t long-term use Z79.01 ; 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.09X0 ; Oral pain K13.79 ; Dental infection K04.7 ; Essential hypertension I10 and Pure hypercholesterolemia E78.00 [place] [address] [address] July, Other chronic pain G89.29 [place] [address] [address] Jun, Other chronic pain G89.29 [place] [address] [address] Jun, [place] [address] [address] Jun, [address] [id number][place] [id number] Jun, Anticoagulant long-term use Z79.01 and I diopathic chronic gout of multiple sites without tophus M1A.09X0 [place] [address] [address] May, Other chronic pain G89.29 [place] [address] [address] May, [place] [address] [address] May, Anticoagulant long-term use Z79.01 [place] [address] [place] [id number] May, [facility] [place] [address] [id number][place] [id number] May, Anticoagulant long-term use Z79.01 [place] [address] [place] [id number] May, Anticoagulant long-term use Z79.01 [place] [address] [place] [id number] May, Anticoagulant long-term use Z79.01 [facility] [address] [id number], [place] [id number] May, Factor V Leiden D68.51 [place] [address] [address] Apr, Other chronic pain G89.29 [place] [address] [address] Apr, Idiopathic chronic gout of multiple site s without tophus M1A.09X0 [facility] [address] [id number][place] [id number] Apr, Anticoagulant long-term use Z79.01 [facility] [address] [id number] [id number] Apr, Anticoagulant long-term use Z79.01 ; Med ication side effect T88.7XXA and 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.09X0 [place] [address] [address] Apr, [place] [address] [address] Apr, Anticoagulant long-term use Z79.01 [place] [address] [address] Apr, Medication side effect T88.7XXA and Fact or V Leiden D68.51 [place] [address] [place] [id number] Apr, Idiopathic chronic gout of multiple site s without tophus M1A.09X0 and Anticoagulant long-term use Z79.01 [place] [address] [facility] [id number] Mar, Factor V Leiden D68.51 and Anticoagulant long-term use Z79.01 [place] [address] [place] [id number] Mar, Factor V Leiden D68.51 ; Anticoagulant l chuck-term use Z79.01 ; 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.09X0 ; Pure hypercholesterolemia E78.00 ; Other chronic pain G89.29 and BMI 40.0-44.9, adult Z68.41 [place] [address] [address] Mar, [place] [address] [place] [address] Mar, Other chronic pain G89.29 [place] [address] [address] Feb, Idiopathic chronic gout of multiple site s without tophus M1A.09X0 [address]757[place] [id number] Feb, Anticoagulant long-term use Z79.01 and I diopathic chronic gout of multiple sites without tophus M1A.09X0 [place] [address] [address] Feb, Anticoagulant long-term use Z79.01 and I diopathic chronic gout of multiple sites without tophus M1A.09X0 [place] [address] [place] [id number] Feb, [place] [address] [address] Feb, Other chronic pain G89.29 [place] [address] [address] Jan, Other chronic pain G89.29 [facility] [address] [address] Dec, Other chronic pain G89.29 [facility] [address] [address] Dec, Anticoagulant long-term use Z79.01 [facility] [address] [address] Dec, Chronic prescription opiate use Z79.899 ; Factor V Leiden D68.51 ; Other chronic pain G89.29 and Anticoagulant long-term use Z79.01 [place] [address] [address] Nov, Other chronic pain G89.29 [place] [address] [address] Oct, Other chronic pain G89.29 [facility] [address] [address] Sep, Other chronic pain G89.29 [place] [address] [address] Aug, Other chronic pain G89.29 [place] [address] [address] Aug, Venous stasis ulcers, left I83.029 [facility] [address] [address] July, Other chronic pain G89.29 [facility] [address] [address] July, Venous stasis ulcers, left I83.029 and S noring R06.83 [place] [address] [address] Jun, Idiopathic chronic gout of multiple site s without tophus M1A.09X0 [place] [address] [address] Jun, Acute renal insufficiency N28.9 [place] [address] [address] Jun, Other chronic pain G89.29 [place] [address] [address] Jun, Acute renal insufficiency N28.[address] [place] [address] CL41443D[place] [id number] Jun, Idiopathic chronic gout of multiple site s without tophus M1A.09X0 ; Essential hypertension I10 and Anticoagulant long-term use Z79.01 [place] [address] [address] Jun, Anticoagulant long-term use Z79.01 and E ssential hypertension I10 [place] [address] [address] May, Idiopathic chronic gout of multiple site s without tophus M1A.09X0 [place] [address] [address] May, [place] [address] [address] May, Essential hypertension I10 ; Pure hyperc holesterolemia E78.00 ; Anticoagulant long-term use Z79.01 and 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.09X0 [place] [address] [address] May, Other chronic pain G89.29 [place] [address] [address] May, Anticoagulant long-term use Z79.01 [place] [address] [address] May, Chronic prescription opiate use Z79.899 ; Other chronic pain G89.29 ; Essential hypertension I10 ; Factor V Leiden D68.51 ; Anticoagulant long-term use Z79.01 ; Pure hypercholesterolemia E78.00 ; Venous stasis ulcers, left I83.029 ; 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.09X0 and Cellulitis of left lower extremity L03.116 [place] [address] [place] [id number] Apr, Other chronic pain G89.29 [place] [address] [place] [address] Mar, Other chronic pain G89.29 [place] [address] Mar, Factor V Leiden D68.51 ; Pure hyperchole sterolemia E78.00 and Other chronic pain G89.29 [place] [address] [place] [id number] Feb, Other chronic pain G89.29 [place] [address] [place] [address] Jan, Idiopathic chronic gout of multiple site s without tophus M1A.09X0 [place] [address] [address] Jan, Other chronic pain G89.29 [place] [address] [address] Dec, Anticoagulant long-term use Z79.01 ; Fac tor V Leiden D68.51 and Other chronic pain G89.29 [place] [address] [address] Dec, Other chronic pain G89.29 [place] [address] [address] Nov, Other chronic pain G89.29 [place] [address] [place] [address] Oct, Other chronic pain G89.29 [place] [address] [address] Sep, Anticoagulant long-term use Z79.01 [place] [address] [address] Sep, Chronic prescription opiate use Z79.899 ; Anticoagulant long-term use Z79.01 ; Essential hypertension I10 ; Pure hypercholesterolemia E78.00 ; Factor V Leiden D68.51 ; Venous stasis ulcers, left I83.029 ; Other chronic pain G89.29 and 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.09X0 [place] [address] [address] Aug, Anticoagulant long-term use Z79.01 [place] [address] [address] Aug, Other chronic pain G89.29 [place] [address] [address] Aug, Essential hypertension I10 and Factor V Leiden D68.[address] [facility] [place] [id number] Aug, Acute right ankle pain M25.571 and Tendo nitis of ankle M77.50 [place] [address] [address] Aug, [place] [address] [address] July, Other chronic pain G89.29 [place] [address] [address] Jun, Other chronic pain G89.29 [place] [address] [address] Jun, Other chronic pain G89.29 [place] [address] [address] Jun, Anticoagulant long-term use Z79.01 [place] [address] [address] May, Other chronic pain G89.29 [place] [address] [address] May, Anticoagulant long-term use Z79.01 [place] [address] [address] May, Other chronic pain G89.29 [place] [address] [address] Apr, Anticoagulant long-term use Z79.01 [place] [address] [address] Apr, Other chronic pain G89.29 [place] [address] [address] Apr, Anticoagulant long-term use Z79.01 and P ure hypercholesterolemia E78.00 [place] [address] [address] Mar, [place] [address] [address] Mar, Anticoagulant long-term use Z79.01 [place] [address] [address] Mar, Other chronic pain G89.29 [place] [address] [address] Feb, Essential hypertension I10 ; Chronic pre scription opiate use Z79.899 ; Other chronic pain G89.29 ; Screening Z13.9 ; Factor V Leiden D68.51 ; Anticoagulant long-term use Z79.01 ; Venous stasis dermatitis of left lower extremity I83.12 and Pure hypercholesterolemia E78.00 [place] [address] [address] 14 Jan, 2016 Anticoagulant long-term use Z79.01 [place] [address] [address] 10 Jan, 2016 Anticoagulant long-term use Z79.01 [place] [address] [address] Jan, [facility] [address] [address] Jan, [facility] [address] [address] Dec, [facility] [address] [address] Nov, [facility] [address] [address] Oct, Anticoagulant long-term use Z79.01 [facility] [address] [address] Oct, [facility] [address] [address] Oct, Anticoagulant long-term use Z79.01 [facility] [address] [address] Sep, [facility] [address] [address] Aug, [facility] [address] [address] Aug, Chronic prescription opiate use Z79.899 ; Other chronic pain G89.29 ; Essential hypertension I10 and Pure hypercholesterolemia E78.0 [place] [address] [address] July, Hyperlipidemia, group D E78.3 and Antico agulant long-term use Z79.01 [facility] [address] [address] July, Hyperlipidemia, group D E78.3 ; Essentia l hypertension I10 and Factor V Leiden D68.51 [facility] [address] [address] July, Essential hypertension I10 [place] [address] [address] Jun, Hyperlipidemia, group D E78.3 [facility] [address] [address] Jun, Factor V Leiden D68.51 [facility] [address] [address] May, Factor V Leiden D68.51 ; Hyperlipidemia, group D E78.3 ; Essential hypertension I10 ; Other chronic pain G89.29 and Anticoagulant long-term use Z79.01 [facility] [address] [address] May, Anticoagulant long-term use Z79.01 [facility] [address] [address] May, Anticoagulant long-term use Z79.01 [place] [address] [address] May, [facility] [address] [address] Apr, [facility] [address] [address] Mar, [facility] [address] [address] Mar, [facility] [address] [address] Feb, Anticoagulant long-term use Z79.01 [place] [address] [address] Feb, Chronic prescription opiate use Z79.899 ; Other chronic pain G89.29 ; Hyperlipidemia, group D E78.3 ; Factor V Leiden D68.51 and Anticoagulant long- term use Z79.01 [place] [address] [address] Feb, [facility] [address] [address] Jan, [facility] [address] [address] Dec, Hyperlipidemia, unspecified E78.5 [facility] [address] [address] Dec, Cellulitis of left lower extremity L03.1 16 ; Venous stasis ulcers, left I83.029 and Factor V Leiden D68.51 [facility] [address] [address] Dec, Hyperlipidemia 272.4 and 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 [facility] [address] [address] Dec, [facility] [address] [address] Nov, 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 [facility] [address] [address] Nov, [facility] [address] [address] Nov, [facility] [address] [address] Nov, [facility] [address] [address] Oct, [facility] [address] [address] Oct, Hyperlipidemia 272.4 ; Chronic pain diso rder 338.4 ; Venous stasis ulcer of left lower extremity 454.0 and 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 [facility] [address] [address] Sep, [facility] [address] [address] Sep, [facility] [address] [address] Sep, Hyperlipidemia 272.4 and 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 [facility] [address] [address] Aug, [facility] [address] [address] Aug, 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 [facility] [address] [address] July, [facility] [address] [address] July, Essential hypertension, benign 401.1 ; F actor 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 ; Chronic pain disorder 338.4 ; Hyperlipidemia 272.4 and Venous stasis ulcer of left lower extremity 454.0 [facility] [address] [address] Jun, [facility] [address] [address] Jun, [facility] [address] [address] May, [facility] [address] [address] May, [facility] [address] [address] Apr, [facility] [address] [address] Apr, [facility] [address] [address] Apr, [facility] [address] [address] Apr, [facility] [address] [address] Apr, [facility] [address] [address] Apr, [facility] [address] [address] Mar, [facility] [address] [address] Mar, [facility] [address] [facility] [id number] [place] [address] Mar, [facility] [address] [id number] [place] [address] Mar, [facility] [address] [id number] [place] [address] Feb, [facility] [address] [id number] [place] [address] Feb, [facility] [address] [id number] [place] [address] Feb, [facility] [address] [id number] [place] [address] Feb, [facility] [address] [id number] [place] [address] Jan, [facility] [address] [id number] [place] [address] Jan, [facility] [address] [id number] [place] [address] Jan, [facility] [address] [id number] [place] [address] Jan, [facility] [address] [id number] [place] [address] Jan, [facility] [address] [id number] [place] [address] Jan, [facility] [address] [id number] [place] [address] Dec, [facility] [address] [id number] [place] [address] Dec, [facility] [address] [id number] [place] [address] Oct, [facility] [address] [id number] [place] [address] Oct, [facility] [address] [facility] [id number] [place] [address] Sep, [facility] [address] [id number] [place] [address] Sep, [facility] [address] [id number] [place] [address] Sep, [facility] [address] [id number] [place] [address] Sep, [facility] [address] [id number] [place] [address] Aug, [facility] [address] [id number] [place] [address] Aug, [facility] [address] [id number] [place] [address] July, [facility] [address] [id number] [place] [address] July, [facility] [address] [id number] [place] [address] Jun, [facility] [address] [id number] [place] [address] Jun, [facility] [address] [id number] [place] [address] May, [facility] [address] [id number] [place] [address] May, [facility] [address] [id number] [place] [address] Apr, [facility] [address] [id number] [place] [address] Apr, [facility] [address] [id number] [place] [address] Mar, [facility] [address] [id number] [place] [address] Mar, [facility] [address] [id number] [place] [address] Jan, [facility] [address] [id number] [place] [address] Jan, [facility] [address] [id number] [place] [address] Jan, [facility] [address] [id number] [place] [address] Jan, [facility] [id number] [place] [address] Jan, [facility] [address] [id number] [place] [address] Dec, [facility] [address] [id number] [place] [address] Dec, [facility] [address] [id number] [place] [address] Dec, [facility] [id number] [place] [address] Nov, [facility] [address] [id number] [place] [address] Nov, [facility] [id number] [place] [address] Sep, [facility] [address] [id number] [place] [address] Sep, [facility] [id number] [place] [address] Aug, [facility] [address] [id number] [place] [address] Aug, [facility] [address] [facility] [id number] July, [facility] [address] [facility] [id number] Jun, [facility] [address] [facility] [id number] Apr, [facility] [address] [facility] [id number] Mar, [facility] [place] [facility] [id number] [place] [address] Mar, [facility] [id number] [place] [address], [place] [id number] Mar, [facility] [address] [id number] [place] [address] Mar, [facility] [id number] [place] [id number] Feb, [facility] [id number] [place] [address] Feb, [facility] [id number] [place] [address], [place] [id number] Feb, [facility] [place] [id number] [place] [address] Feb, [facility] [address] [id number] Oct, [facility] [address], [place] [id number] Oct, [facility] [address] [id number] July, [facility] [address], [place] [id number] July, [facility] [address] [id number] Jun, [facility] [address] [id number] Jun, [facility] [address] [id number] Jun, [facility] [address] [id number] Mar, [facility] [address] [id number] Mar, [facility] [id number] [place] [address] Feb, [facility] [id number] [place] [address] Feb, [facility] [address] [id number] [place] [address] Jan, [facility] [address] [address] Jan, [facility] [address] [address] Jan, [facility] [address] [address] Jan, [facility] [address] [address] Jan, [facility] [address] [address] Aug, [facility] [address] [address] Apr, IMMUNIZATIONS No Known Immunizations SOCIAL HISTORY Never Assessed REASON FOR VISIT Controlled Medication Refill- Due 06/20 PLAN OF CARE VITAL SIGNS MEDICATIONS Medication Instructions Dosage Frequency Start Date End Date Duration S tatus Hydrocodone-Acetaminophen 10-325 MG Orally 4 times a day as needed for pain 1 tablet May, 28 days Active RESULTS No Results PROCEDURES No Known procedures [...]
--- OUTSIDE RECORDS SUMMARY | 2019-11-08 13:00 | XMS REPORT ---
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 47147563 Problem Other chronic pain G89.29 Active 8 3807170 Problem Venous stasis ulcers, left I83.029 Act ozzy 930132612 Problem Essential hypertension I10 Active 81070546 Problem Venous anomaly Q27.9 Active 46057 4003 Problem Congenital single kidney Q60.0 Activ e 85420014 Problem Chronic prescription opiate use Z79.899 Active 991409163 Problem Pure hypercholesterolemia E78.00 Acti ve [id number] ALLERGIES No Information ENCOUNTERS Encounter Location Date Diagnosis [facility] [id number] [place] [address] Mar, Pure hypercholesterolemia E78.[address] [id number] [id number] Mar, Anticoagulant long-term use Z79.01 [facility] [id number] [place] [address] Mar, Other chronic pain G89.29 [facility] [id number] [place] [address] Feb, Anticoagulant long-term use Z79.01 and E ssential hypertension I10 [facility] [address] [address] Feb, Anticoagulant long-term use Z79.01 ; Ess ential hypertension I10 ; Chronic prescription opiate use Z79.899 ; Other chronic pain G89.29 ; Venous stasis ulcers, left I83.029 ; 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.09X0 and Pure hypercholesterolemia E78.[address] [facility] [address] [id number] [id number] Feb, Anticoagulant long-term use Z79.01 [address] [id number] Feb, Anticoagulant long-term use Z79.01 [address] [id number] Feb, Other chronic pain G89.29 [facility] [address] [id number] [id number] Feb, Anticoagulant long-term use Z79.01 [address] [address] Jan, Anticoagulant long-term use Z79.01 [facility] [address] [id number] [id number] Jan, Anticoagulant long-term use Z79.01 [facility] [address] [id number] [id number] Jan, Anticoagulant long-term use Z79.01 [address] [address] Jan, Anticoagulant long-term use Z79.01 [facility] [address] [id number] [id number] Jan, Anticoagulant long-term use Z79.01 [address] [address] Jan, Anticoagulant long-term use Z79.01 [facility] [address] [id number][place] [id number] Jan, Anticoagulant long-term use Z79.01 [facility] [address] [id number] [place] [address] Jan, [facility] [address] [facility] [address] [id number][place] [id number] Jan, Anticoagulant long-term use Z79.01 [facility] [id number] [place] [address] Jan, [facility] [address] [id number] Jan, Other chronic pain G89.29 [address] [address] Jan, Anticoagulant long-term use Z79.01 [facility] [address] [id number] [id number] Dec, Anticoagulant long-term use Z79.01 [address] [id number] [place] [address] Dec, Anticoagulant long-term use Z79.01 [facility] [address] [facility] [address] [id number][place] [id number] Dec, Anticoagulant long-term use Z79.01 [facility] [address] [facility] [address] [id number][place] [id number] Dec, Anticoagulant long-term use Z79.01 [address] [id number] [place] [address] Dec, Anticoagulant long-term use Z79.01 [facility] [id number] [place] [address] Dec, Anticoagulant long-term use Z79.01 [address] [address] Dec, Anticoagulant long-term use Z79.01 [address] [id number] [place] [address] Dec, Other chronic pain G89.29 [facility] [address] [place] [address] Dec, Anticoagulant long-term use Z79.01 [facility] [address] [address] Dec, [facility] [address] [address] Dec, Other chronic pain G89.29 [facility] [address] [id number][place] [id number] Dec, Anticoagulant long-term use Z79.01 [address] [address] Nov, Anticoagulant long-term use Z79.01 [facility] [address] [id number][place] [id number] Nov, Anticoagulant long-term use Z79.01 [address] [address] Nov, Anticoagulant long-term use Z79.01 [address] [address] Nov, Other chronic pain G89.29 [address] [address] [address] Nov, Other chronic pain G89.29 [address] [place] [address] [address] Nov, Anticoagulant long-term use Z79.01 [facility] [address] [id number] [id number] Nov, Factor V Leiden D68.51 [facility] [address] [id number] [id number] Nov, Factor V Leiden D68.51 [facility] [id number] [place] [address] Nov, Anticoagulant long-term use Z79.01 [facility] [address] [id number][place] [id number] Nov, Anticoagulant long-term use Z79.01 [address] [address] Nov, Essential hypertension I10 ; Factor V Le iden D68.51 and Anticoagulant long-term use Z79.01 [facility] [address] [id number] [place] [id number] Oct, Anticoagulant long-term use Z79.01 [address] [address] Oct, [address] [address] Oct, Anticoagulant long-term use Z79.01 [address] [address] [address] Oct, Other chronic pain G89.29 [address] [address] [address] Oct, Anticoagulant long-term use Z79.01 [address] [address] [address] Oct, [address] [address] [address] Sep, Anticoagulant long-term use Z79.01 [facility] [address] [facility] [address] [id number][place] [id number] Sep, Anticoagulant long-term use Z79.01 [address] [place] [address] [address] Sep, Other chronic pain G89.29 [address] [address] [address] Sep, Anticoagulant long-term use Z79.01 [facility] [address] [id number] [place] [id number] Sep, Anticoagulant long-term use Z79.01 [address] [address] [address] Aug, Anticoagulant long-term use Z79.01 [facility] [address] [address] Aug, Anticoagulant long-term use Z79.01 [facility] [address] [address] Aug, Other chronic pain G89.29 [address] [address] Aug, Other chronic pain G89.29 ; Anticoagulan t long-term use Z79.01 ; 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.09X0 ; Oral pain K13.79 ; Dental infection K04.7 ; Essential hypertension I10 and Pure hypercholesterolemia E78.00 [address] [address] July, Other chronic pain G89.29 [address] [address] Jun, Other chronic pain G89.29 [address] [address] Jun, [address] [address] Jun, [address] [facility] [id number] [place] [id number] Jun, Anticoagulant long-term use Z79.01 and I diopathic chronic gout of multiple sites without tophus M1A.09X0 [address] [address] May, Other chronic pain G89.29 [address] [address] May, [address] [address] May, Anticoagulant long-term use Z79.01 [address] [address] May, [facility] [address] [id number] [id number] May, Anticoagulant long-term use Z79.01 [address] [id number] May, Anticoagulant long-term use Z79.01 [address] [address] May, Anticoagulant long-term use Z79.01 [facility] [address] [id number][place] [address] May, Factor V Leiden D68.51 [address] [address] Apr, Other chronic pain G89.29 [address] [address] Apr, Idiopathic chronic gout of multiple site s without tophus M1A.09X0 [facility] [address] [id number] [id number] Apr, Anticoagulant long-term use Z79.01 [facility] [address] [id number] [id number] Apr, Anticoagulant long-term use Z79.01 ; Med ication side effect T88.7XXA and 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.09X0 [address] [address] Apr, [address] [place] [address] Apr, Anticoagulant long-term use Z79.01 [address] [address] Apr, Medication side effect T88.7XXA and Fact or V Leiden D68.51 [address] [id number] Apr, Idiopathic chronic gout of multiple site s without tophus M1A.09X0 and Anticoagulant long-term use Z79.01 [facility] [address] [facility] [address] Mar, Factor V Leiden D68.51 and Anticoagulant long-term use Z79.01 [address] [address] Mar, Factor V Leiden D68.51 ; Anticoagulant l chuck-term use Z79.01 ; 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.09X0 ; Pure hypercholesterolemia E78.00 ; Other chronic pain G89.29 and BMI 40.0-44.9, adult Z68.41 [address] [address] Mar, [address] [address] Mar, Other chronic pain G89.29 [address] [address] Feb, Idiopathic chronic gout of multiple site s without tophus M1A.09X0 [address] [id number] Feb, Anticoagulant long-term use Z79.01 and I diopathic chronic gout of multiple sites without tophus M1A.09X0 [address] [place] [id number] Feb, Anticoagulant long-term use Z79.01 and I diopathic chronic gout of multiple sites without tophus M1A.09X0 [address] [address] [id number] Feb, [address] [place] [address] Feb, Other chronic pain G89.29 [address] [address] Jan, Other chronic pain G89.29 [facility] [address] [address] Dec, Other chronic pain G89.29 [facility] [address] [address] Dec, Anticoagulant long-term use Z79.01 [facility] [address] [address] Dec, Chronic prescription opiate use Z79.899 ; Factor V Leiden D68.51 ; Other chronic pain G89.29 and Anticoagulant long-term use Z79.01 [address] [address] Nov, Other chronic pain G89.29 [address] [address] Oct, Other chronic pain G89.29 [facility] [address] [address] Sep, Other chronic pain G89.29 [address] [address] Aug, Other chronic pain G89.29 [address] [place] [address] Aug, Venous stasis ulcers, left I83.029 [address] [address] July, Other chronic pain G89.29 [address] [address] July, Venous stasis ulcers, left I83.029 and S noring R06.83 [address] [place] [address] [address] Jun, Idiopathic chronic gout of multiple site s without tophus M1A.09X0 [address] [address] Jun, Acute renal insufficiency N28.9 [address] [place] [address] [address] Jun, Other chronic pain G89.29 [address] [address] Jun, Acute renal insufficiency N28.9 [address] [address] [facility] [address] [id number][place] [id number] Jun, Idiopathic chronic gout of multiple site s without tophus M1A.09X0 ; Essential hypertension I10 and Anticoagulant long-term use Z79.01 [address] [id number] Jun, Anticoagulant long-term use Z79.01 and E ssential hypertension I10 [address] [address] [address] May, Idiopathic chronic gout of multiple site s without tophus M1A.09X0 [address] [address] [address] May, [address] [address] May, Essential hypertension I10 ; Pure hyperc holesterolemia E78.00 ; Anticoagulant long-term use Z79.01 and 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.09X0 [address] [address] [address] May, Other chronic pain G89.29 [address] [address] May, Anticoagulant long-term use Z79.01 [address] [address] [address] May, Chronic prescription opiate use Z79.899 ; Other chronic pain G89.29 ; Essential hypertension I10 ; Factor V Leiden D68.51 ; Anticoagulant long-term use Z79.01 ; Pure hypercholesterolemia E78.00 ; Venous stasis ulcers, left I83.029 ; 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.09X0 and Cellulitis of left lower extremity L03.116 [address] [address] [id number] Apr, Other chronic pain G89.29 [address] [address] [id number] Mar, Other chronic pain G89.29 [address] [address] [id number] Mar, Factor V Leiden D68.51 ; Pure hyperchole sterolemia E78.00 and Other chronic pain G89.29 [address] [address] Feb, Other chronic pain G89.29 [address] [address] [address] Jan, Idiopathic chronic gout of multiple site s without tophus M1A.09X0 [address] [address] [address] Jan, Other chronic pain G89.29 [address] [address] Dec, Anticoagulant long-term use Z79.01 ; Fac tor V Leiden D68.51 and Other chronic pain G89.29 [address] [place] [address] Dec, Other chronic pain G89.29 [address] [address] Nov, Other chronic pain G89.29 [address] [address] Oct, Other chronic pain G89.29 [address] [place] [address] Sep, Anticoagulant long-term use Z79.01 [facility] [address] [address] Sep, Chronic prescription opiate use Z79.899 ; Anticoagulant long-term use Z79.01 ; Essential hypertension I10 ; Pure hypercholesterolemia E78.00 ; Factor V Leiden D68.51 ; Venous stasis ulcers, left I83.029 ; Other chronic pain G89.29 and 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.09X0 [address] [address] [address] Aug, Anticoagulant long-term use Z79.01 [address] [address] [address] Aug, Other chronic pain G89.29 [address] [address] [address] Aug, Essential hypertension I10 and Factor V Leiden D68.[address] [facility] [id number] Aug, Acute right ankle pain M25.571 and Tendo nitis of ankle M77.50 [address] [address] [address] Aug, [address] [address] [address] July, Other chronic pain G89.29 [address] [address] [address] Jun, Other chronic pain G89.29 [address] [address] [address] Jun, Other chronic pain G89.29 [address] [address] [address] Jun, Anticoagulant long-term use Z79.01 [address] [address] [address] May, Other chronic pain G89.29 [address] [address] [address] May, Anticoagulant long-term use Z79.01 [address] [address] [address] May, Other chronic pain G89.29 [address] [address] [address] Apr, Anticoagulant long-term use Z79.01 [place] [address] [address] Apr, Other chronic pain G89.29 [address] [address] [address] Apr, Anticoagulant long-term use Z79.01 and P ure hypercholesterolemia E78.00 [place] [address] [address] Mar, [place] [address] [address] Mar, Anticoagulant long-term use Z79.01 [place] [address] [address] Mar, Other chronic pain G89.29 [address] [address] [address] Feb, Essential hypertension I10 ; Chronic pre scription opiate use Z79.899 ; Other chronic pain G89.29 ; Screening Z13.9 ; Factor V Leiden D68.51 ; Anticoagulant long-term use Z79.01 ; Venous stasis dermatitis of left lower extremity I83.12 and Pure hypercholesterolemia E78.00 [address] [address] [address] Jan, Anticoagulant long-term use Z79.01 [place] [address] [address] 10 Jan, 2016 Anticoagulant long-term use Z79.01 [place] [address] [address] Jan, [facility] [address] [address] Jan, [facility] [address] [address] Dec, [facility] [address] [address] Nov, [facility] [address] [address] Oct, Anticoagulant long-term use Z79.01 [facility] [address] [address] Oct, [facility] [address] [address] Oct, Anticoagulant long-term use Z79.01 [facility] [address] [address] Sep, [facility] [address] [address] Aug, [facility] [address] [address] Aug, Chronic prescription opiate use Z79.899 ; Other chronic pain G89.29 ; Essential hypertension I10 and Pure hypercholesterolemia E78.0 [place] [address] [address] July, Hyperlipidemia, group D E78.3 and Antico agulant long-term use Z79.01 [facility] [address] [address] July, Hyperlipidemia, group D E78.3 ; Essentia l hypertension I10 and Factor V Leiden D68.51 [facility] [address] [address] July, Essential hypertension I10 [facility] [address] [address] Jun, Hyperlipidemia, group D E78.3 [facility] [address] [address] Jun, Factor V Leiden D68.51 [facility] [address] [address] May, Factor V Leiden D68.51 ; Hyperlipidemia, group D E78.3 ; Essential hypertension I10 ; Other chronic pain G89.29 and Anticoagulant long-term use Z79.01 [facility] [address] [address] May, Anticoagulant long-term use Z79.01 [place] [address] [address] May, Anticoagulant long-term use Z79.01 [place] [address] [address] May, [facility] [address] [address] Apr, [facility] [address] [address] Mar, [facility] [address] [address] Mar, [facility] [address] [address] Feb, Anticoagulant long-term use Z79.01 [place] [address] [address] Feb, Chronic prescription opiate use Z79.899 ; Other chronic pain G89.29 ; Hyperlipidemia, group D E78.3 ; Factor V Leiden D68.51 and Anticoagulant long- term use Z79.01 [place] [address] [address] Feb, [place] [address] [address] Jan, [facility] [address] [address] Dec, Hyperlipidemia, unspecified E78.5 [facility] [address] [address] Dec, Cellulitis of left lower extremity L03.1 16 ; Venous stasis ulcers, left I83.029 and Factor V Leiden D68.51 [facility] [address] [address] Dec, Hyperlipidemia 272.4 and 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 [facility] [address] [address] Dec, [facility] [address] [address] Nov, 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 [facility] [address] [address] Nov, [facility] [address] [address] Nov, [facility] [address] [address] Nov, [facility] [address] [address] Oct, [facility] [address] [address] Oct, Hyperlipidemia 272.4 ; Chronic pain diso rder 338.4 ; Venous stasis ulcer of left lower extremity 454.0 and 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 [facility] [address] [address] Sep, [facility] [address] [address] Sep, [facility] [address] [address] Sep, Hyperlipidemia 272.4 and 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 [facility] [address] [address] Aug, [facility] [id number] [place] [address] Aug, 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 [facility] [id number] [place] [address] July, [facility] [address] [address] July, Essential hypertension, benign 401.1 ; F actor 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 ; Chronic pain disorder 338.4 ; Hyperlipidemia 272.4 and Venous stasis ulcer of left lower extremity 454.0 [facility] [address] [address] Jun, [facility] [address] [address] Jun, [facility] [address] [address] May, [facility] [address] [address] May, [facility] [address] [address] Apr, [facility] [address] [address] Apr, [facility] [address] [address] Apr, [facility] [address] [address] Apr, [facility] [address] [address] Apr, [facility] [address] [address] Apr, [facility] [address] [address] Mar, [facility] [address] [address] Mar, [facility] [address] [facility] [id number] [place] [address] Mar, [facility] [address] [id number] [place] [address] Mar, [facility] [address] [id number] [place] [address] Feb, [facility] [address] [id number] [place] [address] Feb, [facility] [address] [facility] [id number] [place] [address] Feb, [facility] [address] [id number] [place] [address] Feb, [facility] [address] [id number] [place] [address] Jan, [facility] [address] [id number] [place] [address] Jan, [facility] [address] [id number] [place] [address] Jan, [facility] [address] [id number] [place] [address] Jan, [facility] [address] [id number] [place] [address] Jan, [facility] [address] [id number] [place] [address] Jan, [facility] [facility] [address] [id number] [place] [address] Dec, [facility] [address] [id number] [place] [address] Dec, [facility] [address] [id number] [place] [address] Oct, [facility] [address] [id number] [place] [address] Oct, [facility] [address] [facility] [id number] [place] [address] Sep, [facility] [address] [facility] [id number] [place] [address] Sep, [facility] [address] [id number] [place] [address] Sep, [facility] [address] [id number] [place] [address] Sep, [facility] [address] [id number] [place] [address] Aug, [facility] [address] [id number] [place] [address] Aug, [facility] [address] [id number] [place] [address] July, [facility] [address] [id number] [place] [address] July, [facility] [address] [id number] [place] [address] Jun, [facility] [address] [id number] [place] [address] Jun, [facility] [address] [id number] [place] [address] May, [facility] [address] [id number] [place] [address] May, [facility] [address] [id number] [place] [address] Apr, [facility] [address] [id number] [place] [address] Apr, [facility] [address] [id number] [place] [address] Mar, [facility] [address] [id number] [place] [address] Mar, [facility] [address] [id number] [place] [address] Jan, [facility] [address] [facility] [id number] [place] [address] Jan, [facility] [id number] [place] [address] Jan, [facility] [address] [id number] [place] [address] Jan, [facility] [id number] [place] [address] Jan, [facility] [address] [id number] [place] [address] Dec, [facility] [id number] [place] [address] Dec, [facility] [address] [id number] [place] [address] Dec, [facility] [id number] [place] [address] Nov, [facility] [address] [id number] [place] [address] Nov, [facility] [id number] [place] [address] Sep, [facility] [address] [id number] [place] [address] Sep, [facility] [id number] [place] [address] Aug, [facility] [id number] [place] [address] Aug, [facility] [address] [id number] [place] [id number] July, [facility] [address] [id number] [place] [id number] Jun, [facility] [address] [id number] [place] [id number] Apr, [facility] [address] [id number] [place] [id number] Mar, [facility] [id number] [place] [address] Mar, [facility] [id number] [place] [address], [place] [id number] Mar, [facility] [place] [facility] [id number] [place] [address] Mar, [facility] [id number] [place] [id number] Feb, [facility] [place] [facility] [id number] [place] [address] Feb, [facility] [id number] [place] [address], [place] [id number] Feb, [facility] [place] [facility] [id number] [place] [address] Feb, [facility] [id number] [place] [address], [place] [id number] Oct, [facility] [address] [id number] Oct, [facility] [id number] [place] [id number] July, [facility] [address], [place] [id number] July, [facility] [id number] [place] [address], [place] [id number] Jun, [facility] [id number] [place] [address], [place] [id number] Jun, [facility] [address], [place] [id number] Jun, [facility] [id number] [id number] Mar, [facility] [id number] [place] [address], [place] [id number] Mar, [facility] [place] [facility] [id number] [place] [address] Feb, [facility] [place] [facility] [id number] [place] [address] Feb, [facility] [address] [id number] [place] [address] Jan, [facility] [address] [id number] [place] [address] Jan, [facility] [id number] [place] [address] Jan, [facility] [id number] [place] [address] Jan, [facility] [id number] [place] [address] Jan, [facility] [id number] [place] [address] Aug, [facility] [address] [facility] [id number] [place] [address] Apr, IMMUNIZATIONS No Known Immunizations SOCIAL HISTORY Never Assessed REASON FOR VISIT PLAN OF CARE VITAL SIGNS Height 76 in 2013-09-25 Weight 262.8 lbs 2013-09-25 Temperature 97.6 degrees Fahrenheit 2013-09-25 Heart Rate 88 bpm 2013-09-25 Respiratory Rate 20 2013-09-25 Blood pressure systolic 142 mmHg 2013-09-25 Blood pressure diastolic 90 mmHg 2013-09-25 MEDICATIONS Unknown Medications RESULTS No Results PROCEDURES Procedure Date Ordered Result Body Site PROTHROMBIN TIME September 25, 2013 INSTRUCTIONS MEDICATIONS ADMINISTERED No Known Medications [...]
--- OUTSIDE RECORDS SUMMARY | 2019-11-08 13:01 | XMS REPORT ---
Author Author Zana ORTIZ Organization [facility] Address [address] [place] [address] Care Team Providers Care Screen And Cyclone Repairer Name Role Phone DIANADAVIDAVANI Unavailable PROBLEMS Type Condition ICD9-CM Code ZTQ84-RM Code Onset Dates Condition S tatus SNOMED Code Problem Factor V Leiden D68.51 Active 3070 32541 Problem Anticoagulant long-term use Z79.01 Ac tive 406097146 Problem Post-phlebitic syndrome I87.009 Active 97207322 Problem 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 79487472 Problem Other chronic pain G89.29 Active 8 2255583 Problem Venous stasis ulcers, left I83.029 Act ozzy 134602570 Problem Essential hypertension I10 Active 86807256 Problem Venous anomaly Q27.9 Active 84726 4003 Problem Congenital single kidney Q60.0 Activ e 79927166 Problem Chronic prescription opiate use Z79.899 Active 291169813 Problem Pure hypercholesterolemia E78.00 Acti ve [id number] ALLERGIES No Information ENCOUNTERS Encounter Location Date Diagnosis [facility] [address] [facility] [id number] [address] [place] [id number] Nov, Anticoagulant long-term use Z79.[address] [place] [id number] [place] [id number] Nov, Anticoagulant long-term use Z79.01 [facility] [address] [facility] [id number] [address] [place] [phone] Nov, Anticoagulant long-term use Z79.01 [facility] [address] [facility] [id number] [address] [place] [phone] Nov, Other chronic pain G89.29 [facility] [address] [facility] [id number] [address] [place] [phone] Nov, Other chronic pain G89.29 [facility] [address] [facility] [id number] [address] [place] [phone] Nov, Anticoagulant long-term use Z79.01 [facility] [address] [id number] [id number] Nov, Factor V Leiden D68.51 [facility] [address] [id number][place] [id number] Nov, Factor V Leiden D68.51 [facility] [address] [facility] [id number] [address] [place] [phone] Nov, Anticoagulant long-term use Z79.01 [facility] [address] [id number][place] [id number] Nov, Anticoagulant long-term use Z79.01 [facility] [address] [facility] [id number] [address] [place] [phone] Nov, Essential hypertension I10 ; Factor V Leiden D68.51 and Anticoagulant long-term use Z79.01 [facility] [address] [facility] [address] [id number][place] [id number] Oct, Anticoagulant long-term use Z79.01 [facility] [address] [facility] [id number] [address] [place] [phone] Oct, [facility] [address] [facility] [id number] [address] [place] [phone] Oct, Anticoagulant long-term use Z79.01 [facility] [address] [facility] [id number] [address] [place] [phone] Oct, Other chronic pain G89.29 [facility] [address] [facility] [id number] [address] [place] [phone] Oct, Anticoagulant long-term use Z79.01 [facility] [address] [facility] [id number] [address] [place] [phone] Oct, [place] [address] [facility] [id number] [address] [place] [phone] Sep, Anticoagulant long-term use Z79.01 [facility] [address] [id number][place] [id number] Sep, Anticoagulant long-term use Z79.01 [facility] [address] [facility] [id number] [address] [place] [phone] Sep, Other chronic pain G89.29 [facility] [address] [facility] [id number] [address] [place] [phone] Sep, Anticoagulant long-term use Z79.01 [facility] [address] [facility] [address] [id number][place] [id number] Sep, Anticoagulant long-term use Z79.01 [facility] [address] [facility] [id number] [address] [place] [phone] Aug, Anticoagulant long-term use Z79.01 [facility] [address] [facility] [id number] [address] [place] [phone] Aug, Anticoagulant long-term use Z79.01 [facility] [address] [facility] [id number] [address] [place] [phone] Aug, Other chronic pain G89.29 [facility] [address] [facility] [id number] [address] [place] [address] Aug, Other chronic pain G89.29 ; Anticoagulant long-term use Z79.01 ; 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.09X0 ; Oral pain K13.79 ; Dental infection K04.7 ; Essential hypertension I10 and Pure hypercholesterolemia E78.00 [facility] [address] [facility] [id number] [address] [place] [phone] July, Other chronic pain G89.29 [facility] [address] [facility] [id number] [address] [place] [phone] Jun, Other chronic pain G89.29 [facility] [address] [facility] [id number] [address] [place] [phone] Jun, [facility] [address] [facility] [id number] [address] [place] [phone] Jun, [facility] [address] [facility] [address] [id number][place] [id number] Jun, Anticoagulant long-term use Z79.01 and I diopathic chronic gout of multiple sites without tophus M1A.09X0 [place] [address] [facility] [id number] [address] [place] [phone] May, Other chronic pain G89.29 [place] [address] [facility] [id number] [address] [place] [phone] May, [place] [address] [facility] [id number] [address] [place] [phone] May, Anticoagulant long-term use Z79.01 [place] [address] [place] [id number] [address] [place] [phone] May, [facility] [address] [facility] [address] [id number][place] [id number] May, Anticoagulant long-term use Z79.01 [place] [address] [facility] [id number] [address] [place] [phone] May, Anticoagulant long-term use Z79.01 [place] [address] [facility] [id number] [address] [place] [phone] May, Anticoagulant long-term use Z79.01 [facility] [address] [id number], [place] [id number] May, Factor V Leiden D68.51 [place] [address] [facility] [id number] [address] [place] [phone] Apr, Other chronic pain G89.29 [place] [address] [place] [id number] [address] [place] [phone] Apr, Idiopathic chronic gout of m ultiple sites without tophus M1A.09X0 [facility] [address] [id number][place] [id number] Apr, Anticoagulant long-term use Z79.01 [facility] [address] [id number][place] [id number] Apr, Anticoagulant long-term use Z79.01 ; Med ication side effect T88.7XXA and 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.09X0 [place] [address] [facility] [id number] [address] [place] [phone] Apr, [place] [address] [address] Apr, Anticoagulant long-term use Z79.01 [place] [address] [place] [id number] [address] [place] [phone] Apr, Medication side effect T88.7 XXA and Factor V Leiden D68.51 [place] [address] [facility] [id number] [address] [place] [phone] Apr, Idiopathic chronic gout of m ultiple sites without tophus M1A.09X0 and Anticoagulant long-term use Z79.01 [facility] [address] [facility] [address] [id number][place] [id number] Mar, Factor V Leiden D68.51 and Anticoagulant long-term use Z79.01 [place] [address] [facility] [id number] [address] [place] [phone] Mar, Factor V Leiden D68.51 ; Ant icoagulant long-term use Z79.01 ; 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.09X0 ; Pure hypercholesterolemia E78.00 ; Other chronic pain G89.29 and BMI 40.0-44.9, adult Z68.41 [place] [address] [facility] [id number] [address] [place] [phone] Mar, [place] [address] [place] [id number] [address] [place] [id number] Mar, Other chronic pain G89.29 [facility] [address] [id number] [address] [place] [phone] Feb, Idiopathic chronic gout of m ultiple sites without tophus M1A.09X0 [place] [address] [id number][place] [id number] Feb, Anticoagulant long-term use Z79.01 and I diopathic chronic gout of multiple sites without tophus M1A.09X0 [facility] [address] [id number] [address] [place] [phone] 05 Feb, 2018 Anticoagulant long-term use Z79.01 and 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.09X0 [facility] [address] [facility] [id number] [address] [place] [phone] Feb, [facility] [address] [facility] [id number] [address] [place] [phone] Feb, Other chronic pain G89.29 [facility] [address] [facility] [id number] [address] [place] [phone] Jan, Other chronic pain G89.29 [facility] [address] [id number] [address] [place] [phone] Dec, Other chronic pain G89.29 [facility] [address] [facility] [id number] [address] [place] [phone] Dec, Anticoagulant long-term use Z79.01 [facility] [address] [facility] [id number] [address] [place] [phone] Dec, Chronic prescription opiate use Z79.899 ; Factor V Leiden D68.51 ; Other chronic pain G89.29 and Anticoagulant long-term use Z79.01 [facility] [address] [id number] [address] [place] [phone] Nov, Other chronic pain G89.29 [place] [address] [facility] [id number] [address] [place] [phone] Oct, Other chronic pain G89.29 [facility] [address] [facility] [id number] [address] [place] [phone] Sep, Other chronic pain G89.29 [facility] [address] [facility] [id number] [address] [place] [id number] Aug, Other chronic pain G89.29 [facility] [address] [facility] [id number] [address] [place] [phone] Aug, Venous stasis ulcers, left I 83.029 [place] [address] [facility] [id number] [address] [place] [phone] July, Other chronic pain G89.29 [place] [address] [facility] [id number] [address] [place] [phone] July, Venous stasis ulcers, left I 83.029 and Snoring R06.83 [place] [address] [facility] [id number] [address] [place] [phone] Jun, Idiopathic chronic gout of m ultiple sites without tophus M1A.09X0 [place] [address] [facility] [id number] [address] [place] [phone] Jun, Acute renal insufficiency N2 8.9 [place] [address] [facility] [id number] [address] [place] [address] Jun, Other chronic pain G89.29 [place] [address] [facility] [id number] [address] [place] [phone] Jun, Acute renal insufficiency N2 8.9 [facility] [id number] [place] [id number] Jun, Idiopathic chronic gout of multiple site s without tophus M1A.09X0 ; Essential hypertension I10 and Anticoagulant long-term use Z79.01 [place] [address] [facility] [id number] [address] [place] [phone] Jun, Anticoagulant long-term use Z79.01 and Essential hypertension I10 [place] [address] [place] [address] May, Idiopathic chronic gout of m ultiple sites without tophus M1A.09X0 [place] [address] [place] [id number] [place] [phone] May, [place] [address] [phone] May, Essential hypertension I10 ; Pure hypercholesterolemia E78.00 ; Anticoagulant long-term use Z79.01 and 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.09X0 [place] [address] [address] May, Other chronic pain G89.29 [place] [address] [address] May, Anticoagulant long-term use Z79.01 [place] [address] [address] May, Chronic prescription opiate use Z79.899 ; Other chronic pain G89.29 ; Essential hypertension I10 ; Factor V Leiden D68.51 ; Anticoagulant long-term use Z79.01 ; Pure hypercholesterolemia E78.00 ; Venous stasis ulcers, left I83.029 ; 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.09X0 and Cellulitis of left lower extremity L03.116 [place] [id number] [place] [address] Apr, Other chronic pain G89.29 [place] [address] [place] [id number] [place] [address] Mar, Other chronic pain G89.29 [place] [address] [place] [id number] [address] [place] [phone] Mar, Factor V Leiden D68.51 ; Pur e hypercholesterolemia E78.00 and Other chronic pain G89.29 [place] [address] [facility] [id number] [address] [place] [phone] 06 Feb, 2017 Other chronic pain G89.29 [place] [address] [facility] [id number] [address] [place] [phone] 08 Jan, 2017 Idiopathic chronic gout of m ultiple sites without tophus M1A.09X0 [place] [address] [id number] [address] [place] [id number] 08 Jan, 2017 Other chronic pain G89.29 [place] [address] [id number] [address] [place] [phone] 27 Dec, 2016 Anticoagulant long-term use Z79.01 ; Factor V Leiden D68.51 and Other chronic pain G89.29 [place] [address] [facility] [id number] [address] [place] [phone] Dec, Other chronic pain G89.29 [place] [address] [facility] [id number] [address] [place] [phone] Nov, Other chronic pain G89.29 [place] [address] [facility] [id number] [address] [place] [phone] Oct, Other chronic pain G89.29 [place] [address] [facility] [id number] [address] [place] [phone] Sep, Anticoagulant long-term use Z79.01 [place] [address] [facility] [id number] [address] [place] [address] Sep, Chronic prescription opiate use Z79.899 ; Anticoagulant long-term use Z79.01 ; Essential hypertension I10 ; Pure hypercholesterolemia E78.00 ; Factor V Leiden D68.51 ; Venous stasis ulcers, left I83.029 ; Other chronic pain G89.29 and Idiopathic chronic gout of multiple sites without tophus M1A.09X0 [place] [address] [facility] [id number] [address] [place] [phone] Aug, Anticoagulant long-term use Z79.01 [facility] [address] [facility] [id number] [address] [place] [phone] Aug, Other chronic pain G89.29 [facility] [address] [facility] [id number] [address] [place] [phone] Aug, Essential hypertension I10 a nd Factor V Leiden D68.[address] [place] [place] [id number] [place] [id number] Aug, Acute right ankle pain M25.571 and Tendo nitis of ankle M77.50 [facility] [address] [facility] [id number] [address] [place] [phone] Aug, [facility] [address] [facility] [id number] [address] [place] [phone] July, Other chronic pain G89.29 [facility] [address] [facility] [id number] [address] [place] [phone] Jun, Other chronic pain G89.29 [facility] [address] [facility] [id number] [address] [place] [phone] Jun, Other chronic pain G89.29 [facility] [address] [facility] [id number] [address] [place] [phone] Jun, Anticoagulant long-term use Z79.01 [facility] [address] [facility] [id number] [address] [place] [phone] May, Other chronic pain G89.29 [facility] [address] [facility] [id number] [address] [place] [id number] May, Anticoagulant long-term use Z79.01 [facility] [address] [facility] [id number] [address] [place] [phone] May, Other chronic pain G89.29 [facility] [address] [facility] [id number] [address] [place] [address] Apr, Anticoagulant long-term use Z79.01 [facility] [id number] [place] [address] Apr, Other chronic pain G89.29 [facility] [address] [facility] [id number] [address] Apr, Anticoagulant long-term use Z79.01 and Pure hypercholesterolemia E78.00 [facility] [address] [address] Mar, [facility] [address] [address] Mar, Anticoagulant long-term use Z79.01 [place] [address] [address] Mar, Other chronic pain G89.29 [place] [address] [address] Feb, Essential hypertension I10 ; Chronic prescription opiate use Z79.899 ; Other chronic pain G89.29 ; Screening Z13.9 ; Factor V Leiden D68.51 ; Anticoagulant long-term use Z79.01 ; Venous stasis dermatitis of left lower extremity I83.12 and Pure hypercholesterolemia E78.00 [place] [address] [address] Jan, Anticoagulant long-term use Z79.01 [facility] [address] [place] [id number] [address] [place] [phone] Jan, Anticoagulant long-term use Z79.01 [facility] [address] [place] [id number] [address] [place] [phone] Jan, [place] [address] [address] Jan, [facility] [address] [address] Dec, [facility] [address] [address] 14 Nov, 2015 [facility] [address] [facility] [id number] [address] [place] [phone] Oct, Anticoagulant long-term use Z79.01 [facility] [address] [facility] [id number] [address] [place] [phone] Oct, [facility] [address] [facility] [id number] [address] [place] [address] Oct, Anticoagulant long-term use Z79.01 [facility] [address] [facility] [id number] [address] [place] [phone] Sep, [facility] [address] [facility] [id number] [address] [place] [phone] Aug, [facility] [address] [facility] [id number] [address] [place] [address] Aug, Chronic prescription opiate use Z79.899 ; Other chronic pain G89.29 ; Essential hypertension I10 and Pure hypercholesterolemia E78.0 [facility] [address] [facility] [id number] [address] [place] [phone] July, Hyperlipidemia, group D E78. 3 and Anticoagulant long-term use Z79.01 [facility] [address] [facility] [id number] [address] [place] [phone] July, Hyperlipidemia, group D E78. 3 ; Essential hypertension I10 and Factor V Leiden D68.51 [facility] [address] [facility] [id number] [address] [place] [id number] July, Essential hypertension I10 [facility] [address] [facility] [id number] [address] [place] [phone] Jun, Hyperlipidemia, group D E78. 3 [place] [address] [facility] [id number] [address] [place] [phone] Jun, Factor V Leiden D68.51 [facility] [address] [facility] [id number] [address] [place] [phone] May, Factor V Leiden D68.51 ; Hyp erlipidemia, group D E78.3 ; Essential hypertension I10 ; Other chronic pain G89.29 and Anticoagulant long-term use Z79.01 [facility] [address] [id number] 04 May, 2015 Anticoagulant long-term use Z79.01 [facility] [address] [place] [id number] [address] [place] [id number] 04 May, 2015 Anticoagulant long-term use Z79.01 [facility] [address] [facility] [id number] [address] [place] [phone] [address], [address] [facility] [address] [facility] [id number] [id number] Apr, [facility] [address] [place] [id number] [place] [phone] Mar, [facility] [address] [id number] Mar, [facility] [address] [id number] Feb, Anticoagulant long-term use Z79.01 [facility] [address] [id number] 16 Feb, 2015 Chronic prescription opiate use Z79.899 ; Other chronic pain G89.29 ; Hyperlipidemia, group D E78.3 ; Factor V Leiden D68.51 and Anticoagulant long- term use Z79.01 [facility] [id number] [place] [id number] 04 Feb, 2015 [facility] [id number] [place] [phone] Jan, [place] [address] [id number] Dec, Hyperlipidemia, unspecified E78.5 [place] [address] [address] [place] [id number] [address] [place] [id number] Dec, Cellulitis of left lower ext remity L03.116 ; Venous stasis ulcers, left I83.029 and Factor V Leiden D68.51 [facility] [address] [id number] Dec, Hyperlipidemia 272.4 and Fac tor 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 [facility] [address] [facility] [id number] [address] [place] [phone] Dec, [facility] [address] [facility] [id number] [address] [place] [phone] Nov, 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 [facility] [address] [facility] [facility] [id number] [place] [id number] Nov, [facility] [id number] [place] [phone] Nov, [facility] [address] [id number] Nov, [facility] [address] [id number] [address] [place] [id number] Oct, [facility] [address] [address] Oct, Hyperlipidemia 272.4 ; Chron ic pain disorder 338.4 ; Venous stasis ulcer of left lower extremity 454.0 and 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 [facility] [address] [id number] [address] [place] [phone] Sep, [facility] [address] [id number] [address] [place] [id number] Sep, [facility] [id number] [place] [phone] Sep, Hyperlipidemia 272.4 and Fac tor 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 [facility] [id number] [place] [phone] Aug, [facility] [address] [address] Aug, 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 [facility] [address] [id number] [address] [place] [phone] July, [facility] [address] [facility] [id number] [address] [place] [id number] July, Essential hypertension, fito gn 401.1 ; 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 ; Chronic pain disorder 338.4 ; Hyperlipidemia 272.4 and Venous stasis ulcer of left lower extremity 454.0 [facility] [address] [id number] [address] [place] [phone] Jun, [facility] [address] [id number] [address] [place] [id number] Jun, [facility] [address] [facility] [id number] [address] [place] [phone] May, [facility] [address] [id number] [address] [place] [phone] May, [facility] [address] [id number] [address] [place] [phone] Apr, [facility] [address] [id number] [address] [place] [id number] Apr, [facility] [address] [facility] [id number] [address] [place] [phone] Apr, [facility] [address] [id number] [address] [place] [id number] Apr, [facility] [address] [facility] [id number] [address] [place] [phone] Apr, [facility] [address] [id number] [address] [place] [phone] Apr, [facility] [address] [facility] [id number] [address] [place] [phone] Mar, [facility] [address] [id number] [address] [place] [id number] Mar, [facility] [address] [id number] [address] [place] [address], [place] [address] Mar, [facility] [address] [id number] [address] [place] [address], [place] [id number] Mar, [facility] [address] [id number] [address] [place] [address], [place] [address] Feb, [facility] [address] [id number] [address] [place] [address], [place] [address] Feb, [facility] [address] [id number] [address] [place] [address], [place] [id number] Feb, [facility] [address] [id number] [address] [place] [address], [place] [id number] Feb, [facility] [address] [id number] [address] [place] [address], [place] [address] Jan, [facility] [address] [id number] [address] [place] [address], [place] [address] Jan, [facility] [address] [id number] [address] [place] [address], [place] [address] Jan, [facility] [address] [id number] [address] [place] [address], [place] [address] Jan, [facility] [address] [id number] [address] [place] [address], [place] [id number] Jan, [facility] [address] [id number] [address] [place] [address], [place] [address] Jan, [facility] [address] [id number] [address] [place] [address], [place] [id number] Dec, [facility] [address] [id number] [address] [place] [address], [place] [address] Dec, [facility] [address] [id number] [address] [place] [address], [place] [address] Oct, [facility] [address] [id number] [address] [place] [address], [place] [address] Oct, [facility] [address] [id number] [address] [place] [address], [place] [address] Sep, [facility] [address] [id number] [address] [place] [address], [place] [address] Sep, [facility] [address] [id number] [address] [place] [address], [place] [address] Sep, [facility] [address] [id number] [address] [place] [address], [place] [id number] Sep, [facility] [address] [id number] [address] [place] [address], [place] [address] Aug, [facility] [address] [id number] [address] [place] [address], [place] [address] Aug, [facility] [address] [id number] [address] [place] [address], [place] [address] July, [facility] [address] [id number] [address] [place] [address], [place] [address] July, [facility] [address] [id number] [address] [place] [address], [place] [address] Jun, [facility] [address] [id number] [address] [place] [address], [place] [address] Jun, [facility] [address] [id number] [address] [place] [address], [place] [address] May, [facility] [address] [id number] [address] [place] [address], [place] [address] May, [facility] [address] [id number] [address] [place] [address], [place] [address] Apr, [facility] [address] [id number] [address] [place] [address], [place] [address] Apr, [facility] [address] [id number] [address] [place] [address], [place] [address] Mar, [facility] [address] [id number] [address] [place] [address], [place] [address] Mar, [facility] [address] [id number] [address] [place] [address], [place] [address] Jan, [facility] [address] [id number] [address] [place] [address], [place] [address] Jan, [facility] [address] [id number] [address] [place] [address], [place] [address] Jan, [facility] [address] [id number] [address] [place] [address], [place] [address] Jan, [facility] [address] [id number] [address] [place] [address], [place] [address] Jan, [facility] [address] [id number] [address] [place] [address], [place] [address] Dec, [facility] [address] [id number] [address] [place] [address], [place] [address] Dec, [facility] [address] [id number] [address] [place] [address], [place] [address] Dec, [facility] [address] [id number] [address] [place] [address], [place] [address] Nov, [facility] [address] [id number] [address] [place] [address], [place] [address] Nov, [facility] [address] [id number] [address] [place] [address], [place] [address] Sep, [facility] [address] [id number] [address] [place] [address], [place] [address] Sep, [facility] [address] [id number] [address] [place] [address], [place] [address] Aug, [facility] [address] [id number] [address] [place] [address], [place] [address] Aug, [facility] [id number] [place] [address] S [id number] July, [facility] [address] [id number] [place] [id number] Jun, [facility] [address] [id number] [place] [id number] Apr, [facility] [address] [id number] [place] [id number] Mar, [facility] [address] [facility] [id number] [address] [place] [address] Mar, [facility] [address] [id number] [place] [id number] Mar, [facility] [address] [facility] [id number] [address] [address] Mar, [facility] [address] [id number] [place] [id number] Feb, [facility] [address] [facility] [id number] [address] [place] [id number] Feb, [facility] [address] [id number] [place] [id number] Feb, [facility] [address] [facility] [id number] [address] [place] [phone] Feb, [facility] [address] [id number] [place] [id number] Oct, [facility] [address] [id number] [place] [id number] Oct, [facility] [address] [id number] [place] [id number] July, [facility] [address] [id number] [place] [id number] July, [facility] [address] [id number] [place] [id number] Jun, [facility] [address] [id number] [place] [id number] Jun, [facility] [address] [id number] [place] [id number] Jun, [facility] [address] [id number] [place], Karin S [id number] Mar, [facility] [address] [id number] [place], [place]in S [id number] Mar, [facility] [address] [id number] [address] [place] [id number] Feb, [facility] [address] [id number] [address] [place] [id number] Feb, [facility] [address] [id number] [address] [place] [id number] Jan, [facility] [address] [id number] [address] [place] [id number] Jan, [facility] [address] [id number] [address] [place] [id number] Jan, [facility] [address] [id number] [address] [place] [id number] Jan, [facility] [address] [id number] [address] [place] [id number] Jan, [facility] [address] [id number] [address] [place] [id number] Aug, [facility] [address] [id number] [address] [place] [id number] Apr, IMMUNIZATIONS No Known Immunizations SOCIAL HISTORY [...]
--- OUTSIDE RECORDS SUMMARY | 2019-11-08 13:01 | XMS REPORT ---
Author Author Zana ORTIZ Organization [facility] Address [address] [place] [address] Care Team Providers Care Internist Name Role Phone DIANADAVIDAVANI Unavailable PROBLEMS Type Condition ICD9-CM Code XZY15-QE Code Onset Dates Condition S tatus SNOMED Code Problem Factor V Leiden D68.51 Active 3070 22762 Problem Anticoagulant long-term use Z79.01 Ac tive 650614649 Problem Post-phlebitic syndrome I87.009 Active 04527122 Problem 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 31578048 Problem Other chronic pain G89.29 Active 8 4585969 Problem Venous stasis ulcers, left I83.029 Act ozzy 237417837 Problem Essential hypertension I10 Active 02153570 Problem Venous anomaly Q27.9 Active 43889 4003 Problem Congenital single kidney Q60.0 Activ e 77397931 Problem Chronic prescription opiate use Z79.899 Active 464951493 Problem Pure hypercholesterolemia E78.00 Acti ve [id number] ALLERGIES No Information ENCOUNTERS Encounter Location Date Diagnosis [facility] [address] [facility] [id number] [address] [place] [phone] 13 Nov, 2018 Anticoagulant long-term use Z79.01 [facility] [address] [facility] [id number] [address] [place] [address] Nov, Other chronic pain G89.29 [facility] [address] [facility] [id number] [address] [place] [address] 12 Nov, 2018 Other chronic pain G89.29 [facility] [address] [facility] [id number] [address] [place] [address] 10 Nov, 2018 Anticoagulant long-term use Z79.[address] [facility] [place] [address] [facility] [id number] [place] [id number] Nov, Factor V Leiden D68.51 [facility] [address] [id number] [id number] Nov, Factor V Leiden D68.51 [facility] [address] [facility] [id number] [address] [place] [address] Nov, Anticoagulant long-term use Z79.01 [facility] [address] [id number][place] [id number] Nov, Anticoagulant long-term use Z79.01 [facility] [address] [facility] [id number] [address] [place] [address] Nov, Essential hypertension I10 ; Factor V Leiden D68.51 and Anticoagulant long-term use Z79.[address] [facility] [address] [facility] [address] [id number][place] [id number] Oct, Anticoagulant long-term use Z79.01 [facility] [address] [facility] [id number] [address] [place] [address] Oct, [facility] [address] [facility] [id number] [address] [place] [address] Oct, Anticoagulant long-term use Z79.01 [facility] [address] [facility] [id number] [address] [place] [address] Oct, Other chronic pain G89.29 [facility] [address] [facility] [id number] [address] [place] [address] Oct, Anticoagulant long-term use Z79.01 [facility] [address] [facility] [id number] [address] [place] [address] Oct, [facility] [address] [facility] [id number] [address] [place] [address] Sep, Anticoagulant long-term use Z79.01 [facility] [address] [id number][place] [id number] Sep, Anticoagulant long-term use Z79.01 [facility] [address] [facility] [id number] [address] [place] [address] Sep, Other chronic pain G89.29 [facility] [address] [facility] [id number] [address] [place] [address] Sep, Anticoagulant long-term use Z79.[address] [facility] [address] [id number][place] [id number] Sep, Anticoagulant long-term use Z79.01 [facility] [address] [facility] [id number] [address] [place] [address] Aug, Anticoagulant long-term use Z79.01 [place] [address] [facility] [id number] [address] [place] [address] Aug, Anticoagulant long-term use Z79.01 [place] [address] [facility] [id number] [address] [place] [address] Aug, Other chronic pain G89.29 [facility] [address] [facility] [id number] [address] [place] [address] Aug, Other chronic pain G89.29 ; Anticoagulant long-term use Z79.01 ; Idiopathic chronic gout of multiple sites without tophus M1A.09X0 ; Oral pain K13.79 ; Dental infection K04.7 ; Essential hypertension I10 and Pure hypercholesterolemia E78.00 [place] [address] [facility] [id number] [address] [place] [address] July, Other chronic pain G89.29 [facility] [address] [facility] [id number] [address] [place] [address] Jun, Other chronic pain G89.29 [place] [address] [facility] [id number] [address] [place] [address] Jun, [place] [address] [facility] [id number] [address] [place] [address] Jun, [facility] [address] [id number][place] [id number] Jun, Anticoagulant long-term use Z79.01 and I diopathic chronic gout of multiple sites without tophus M1A.09X0 [place] [address] [facility] [id number] [address] [place] [address] May, Other chronic pain G89.29 [place] [address] [facility] [id number] [address] [place] [address] May, [facility] [address] [facility] [id number] [address] [place] [address] May, Anticoagulant long-term use Z79.01 [place] [address] [facility] [id number] [address] [place] [address] May, [facility] [address] [id number][place] [id number] May, Anticoagulant long-term use Z79.01 [place] [address] [facility] [id number] [address] [place] [address] May, Anticoagulant long-term use Z79.01 [place] [address] [facility] [id number] [address] [place] [address] May, Anticoagulant long-term use Z79.01 [facility] [address] [id number][place] [id number] May, Factor V Leiden D68.51 [place] [address] [facility] [id number] [address] [place] [address] Apr, Other chronic pain G89.29 [place] [address] [facility] [id number] [address] [place] [address] Apr, Idiopathic chronic gout of m ultiple sites without tophus M1A.09X0 [facility] [address] [id number][place] [id number] Apr, Anticoagulant long-term use Z79.[address] [facility] [address] [id number], [place] [id number] Apr, Anticoagulant long-term use Z79.01 ; Med ication side effect T88.7XXA and Idiopathic chronic gout of multiple sites without tophus M1A.09X0 [place] [address] [facility] [id number] [address] [place] [address] Apr, [place] [address] [facility] [id number] [address] [place] [address] Apr, Anticoagulant long-term use Z79.01 [place] [address] [facility] [id number] [address] [place] [address] Apr, Medication side effect T88.7 XXA and Factor V Leiden D68.51 [place] [address] [facility] [id number] [address] [place] [address] Apr, Idiopathic chronic gout of m ultiple sites without tophus M1A.09X0 and Anticoagulant long-term use Z79.[id number] [place] [id number] Mar, Factor V Leiden D68.51 and Anticoagulant long-term use Z79.01 [place] [address] [place] [id number] [address] [place] [address] Mar, Factor V Leiden D68.51 ; Ant icoagulant long-term use Z79.01 ; Idiopathic chronic gout of multiple sites without tophus M1A.09X0 ; Pure hypercholesterolemia E78.00 ; Other chronic pain G89.29 and BMI 40.0-44.9, adult Z68.41 [place] [address] [facility] [id number] [address] [place] [address] Mar, [place] [address] [facility] [id number] [address] [place] [address] Mar, Other chronic pain G89.29 [place] [address] [facility] [id number] [address] [place] [address] Feb, Idiopathic chronic gout of m ultiple sites without tophus M1A.09X0 [place] [id number] [place] [id number] 13 Feb, 2018 Anticoagulant long-term use Z79.01 and I diopathic chronic gout of multiple sites without tophus M1A.09X0 [facility] [address] [facility] [id number] [address] [place] [address] 05 Feb, 2018 Anticoagulant long-term use Z79.01 and Idiopathic chronic gout of multiple sites without tophus M1A.09X0 [facility] [address] [facility] [id number] [address] [place] [address] Feb, [facility] [address] [facility] [id number] [address] [place] [address] Feb, Other chronic pain G89.29 [facility] [address] [facility] [id number] [address] [place] [address] Jan, Other chronic pain G89.29 [facility] [address] [facility] [id number] [address] [place] [address] Dec, Other chronic pain G89.29 [facility] [address] [facility] [id number] [address] [place] [address] Dec, Anticoagulant long-term use Z79.01 [facility] [address] [facility] [id number] [address] [place] [address] Dec, Chronic prescription opiate use Z79.899 ; Factor V Leiden D68.51 ; Other chronic pain G89.29 and Anticoagulant long-term use Z79.01 [facility] [address] [facility] [id number] [address] [place] [address] Nov, Other chronic pain G89.29 [facility] [address] [facility] [id number] [address] [place] [address] Oct, Other chronic pain G89.29 [facility] [address] [facility] [id number] [address] [place] [address] Sep, Other chronic pain G89.29 [facility] [address] [facility] [id number] [address] [place] [address] Aug, Other chronic pain G89.29 [facility] [address] [facility] [id number] [address] [place] [address] Aug, Venous stasis ulcers, left I 83.029 [facility] [address] [facility] [id number] [address] [place] [address] July, Other chronic pain G89.29 [facility] [address] [facility] [id number] [address] [place] [address] July, Venous stasis ulcers, left I 83.029 and Snoring R06.83 [place] [address] [facility] [id number] [address] [place] [address] Jun, Idiopathic chronic gout of m ultiple sites without tophus M1A.09X0 [place] [address] [facility] [id number] [address] [place] [address] Jun, Acute renal insufficiency N2 8.9 [facility] [address] [facility] [id number] [address] [place] [address] Jun, Other chronic pain G89.29 [facility] [address] [facility] [id number] [address] [place] [address] Jun, Acute renal insufficiency N2 8.[id number] [place] [address] [id number] Jun, Idiopathic chronic gout of multiple site s without tophus M1A.09X0 ; Essential hypertension I10 and Anticoagulant long-term use Z79.01 [facility] [address] [facility] [id number] [address] [place] [address] Jun, Anticoagulant long-term use Z79.01 and Essential hypertension I10 [place] [address] [facility] [id number] [address] [place] [address] May, Idiopathic chronic gout of m ultiple sites without tophus M1A.09X0 [place] [address] [facility] [id number] [address] [place] [address] May, [place] [address] [facility] [id number] [address] [place] [address] May, Essential hypertension I10 ; Pure hypercholesterolemia E78.00 ; Anticoagulant long-term use Z79.01 and Idiopathic chronic gout of multiple sites without tophus M1A.09X0 [place] [address] [facility] [id number] [address] [place] [address] May, Other chronic pain G89.29 [place] [address] [facility] [id number] [address] [place] [address] May, Anticoagulant long-term use Z79.01 [place] [address] [facility] [id number] [address] [place] [address] May, Chronic prescription opiate use Z79.899 ; Other chronic pain G89.29 ; Essential hypertension I10 ; Factor V Leiden D68.51 ; Anticoagulant long-term use Z79.01 ; Pure hypercholesterolemia E78.00 ; Venous stasis ulcers, left I83.029 ; Idiopathic chronic gout of multiple sites without tophus M1A.09X0 and Cellulitis of left lower extremity L03.116 [place] [address] [facility] [id number] [address] [place] [address] Apr, Other chronic pain G89.29 [place] [address] [place] [id number] [address] [place] [address] Mar, Other chronic pain G89.29 [place] [address] [facility] [id number] [address] [place] [address] Mar, Factor V Leiden D68.51 ; Pur e hypercholesterolemia E78.00 and Other chronic pain G89.29 [place] [address] [facility] [id number] [address] [place] [address] Feb, Other chronic pain G89.29 [place] [address] [place] [id number] [address] [place] [address] Jan, Idiopathic chronic gout of m ultiple sites without tophus M1A.09X0 [place] [address] [facility] [id number] [address] [place] [address] 08 Jan, 2017 Other chronic pain G89.29 [place] [address] [facility] [id number] [address] [place] [address] Dec, Anticoagulant long-term use Z79.01 ; Factor V Leiden D68.51 and Other chronic pain G89.29 [place] [address] [facility] [id number] [address] [place] [address] Dec, Other chronic pain G89.29 [place] [address] [facility] [id number] [address] [place] [address] Nov, Other chronic pain G89.29 [place] [address] [place] [id number] [address] [place] [address] Oct, Other chronic pain G89.29 [place] [address] [place] [id number] [address] [place] [address] Sep, Anticoagulant long-term use Z79.01 [place] [address] [place] [id number] [address] [place] [address] Sep, Chronic prescription opiate use Z79.899 ; Anticoagulant long-term use Z79.01 ; Essential hypertension I10 ; Pure hypercholesterolemia E78.00 ; Factor V Leiden D68.51 ; Venous stasis ulcers, left I83.029 ; Other chronic pain G89.29 and Idiopathic chronic gout of multiple sites without tophus M1A.09X0 [place] [address] [facility] [id number] [address] [place] [address] Aug, Anticoagulant long-term use Z79.01 [place] [address] [facility] [id number] [address] [place] [address] Aug, Other chronic pain G89.29 [place] [address] [facility] [id number] [address] [place] [address] Aug, Essential hypertension I10 a nd Factor V Leiden D68.[address] [place] [id number] [place] [address] [id number] 15 Aug, 2016 Acute right ankle pain M25.571 and Tendo nitis of ankle M77.50 [facility] [address] [facility] [id number] [address] [place] [address] Aug, [facility] [address] [facility] [id number] [address] [place] [address] July, Other chronic pain G89.29 [facility] [address] [facility] [id number] [address] [place] [address] Jun, Other chronic pain G89.29 [facility] [address] [facility] [id number] [address] [place] [address] Jun, Other chronic pain G89.29 [place] [address] [facility] [id number] [address] [place] [address] Jun, Anticoagulant long-term use Z79.01 [facility] [address] [facility] [id number] [address] [place] [address] May, Other chronic pain G89.29 [facility] [address] [facility] [id number] [address] [place] [address] May, Anticoagulant long-term use Z79.01 [place] [address] [facility] [id number] [address] [place] [address] May, Other chronic pain G89.29 [facility] [address] [facility] [id number] [address] [place] [address] Apr, Anticoagulant long-term use Z79.01 [facility] [address] [facility] [id number] [address] [place] [address] Apr, Other chronic pain G89.29 [facility] [address] [facility] [id number] [address] [place] [address] Apr, Anticoagulant long-term use Z79.01 and Pure hypercholesterolemia E78.00 [place] [address] [facility] [id number] [address] [place] [address] Mar, [facility] [address] [facility] [id number] [address] [place] [address] Mar, Anticoagulant long-term use Z79.01 [facility] [address] [facility] [id number] [address] [place] [address] Mar, Other chronic pain G89.29 [facility] [address] [facility] [id number] [address] [place] [address] 08 Feb, 2016 Essential hypertension I10 ; Chronic prescription opiate use Z79.899 ; Other chronic pain G89.29 ; Screening Z13.9 ; Factor V Leiden D68.51 ; Anticoagulant long-term use Z79.01 ; Venous stasis dermatitis of left lower extremity I83.12 and Pure hypercholesterolemia E78.00 [facility] [address] [facility] [id number] [address] [place] [address] 14 Jan, 2016 Anticoagulant long-term use Z79.01 [facility] [address] [facility] [id number] [address] [place] [address] Jan, Anticoagulant long-term use Z79.01 [facility] [address] [facility] [id number] [address] [place] [address] Jan, [facility] [address] [facility] [id number] [address] [place] [address] Jan, [facility] [address] [facility] [id number] [address] [place] [address] Dec, [facility] [address] [facility] [id number] [address] [place] [address] Nov, [facility] [address] [facility] [id number] [address] [place] [address] Oct, Anticoagulant long-term use Z79.01 [facility] [address] [facility] [id number] [address] [place] [address] Oct, [facility] [address] [facility] [id number] [address] [place] [address] Oct, Anticoagulant long-term use Z79.01 [facility] [address] [facility] [id number] [address] [place] [address] Sep, [facility] [address] [facility] [id number] [address] [place] [address] Aug, [facility] [address] [address] Aug, Chronic prescription opiate use Z79.899 ; Other chronic pain G89.29 ; Essential hypertension I10 and Pure hypercholesterolemia E78.0 [place] [address] [facility] [id number] [address] [place] [address] July, Hyperlipidemia, group D E78. 3 and Anticoagulant long-term use Z79.01 [place] [address] [place] [id number] [address] [place] [address] July, Hyperlipidemia, group D E78. 3 ; Essential hypertension I10 and Factor V Leiden D68.51 [place] [address] [facility] [id number] [address] [place] [address] July, Essential hypertension I10 [place] [address] [place] [id number] [address] [place] [address] Jun, Hyperlipidemia, group D E78. 3 [place] [address] [place] [id number] [address] [place] [address] Jun, Factor V Leiden D68.51 [place] [address] [facility] [id number] [address] [place] [address] May, Factor V Leiden D68.51 ; Hyp erlipidemia, group D E78.3 ; Essential hypertension I10 ; Other chronic pain G89.29 and Anticoagulant long-term use Z79.01 [place] [address] [facility] [id number] [address] [place] [address] May, Anticoagulant long-term use Z79.01 [facility] [address] [address] 04 May, 2015 Anticoagulant long-term use Z79.01 [facility] [address] [address] May, [facility] [address] [address] Apr, [facility] [address] [address] Mar, [facility] [address] [address] Mar, [place] [address] [address] Feb, Anticoagulant long-term use Z79.01 [place] [address] [address] 16 Feb, 2015 Chronic prescription opiate use Z79.899 ; Other chronic pain G89.29 ; Hyperlipidemia, group D E78.3 ; Factor V Leiden D68.51 and Anticoagulant long- term use Z79.01 [place] [address] [address] Feb, [place] [address] [address] Jan, [place] [address] [address] Dec, Hyperlipidemia, unspecified E78.5 [place] [address] [address] Dec, Cellulitis of left lower ext remity L03.116 ; Venous stasis ulcers, left I83.029 and Factor V Leiden D68.51 [place] [address] [id number] 09 Dec, 2014 Hyperlipidemia 272.4 and Fac tor 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 [place] [address] [id number] [address] [place] [id number] Dec, [facility] [address] [facility] [id number] [address] [place] [address] Nov, 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 [facility] [address] [facility] [id number] [address] [place] [phone] Nov, [facility] [address] [facility] [id number] [address] [place] [address] Nov, [facility] [address] [id number] [address] [place] [phone] Nov, [facility] [address] [facility] [id number] [address] [place] [id number] Oct, [facility] [address] [facility] [id number] [address] [place] [id number] Oct, Hyperlipidemia 272.4 ; Chron ic pain disorder 338.4 ; Venous stasis ulcer of left lower extremity 454.0 and 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 [facility] [address] [facility] [id number] [address] [place] [phone] Sep, [facility] [address] [facility] [id number] [address] [place] [phone] Sep, [facility] [address] [facility] [id number] [address] [place] [address] Sep, Hyperlipidemia 272.4 and Fac tor 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 [facility] [address] [id number] [address] [place] [phone] Aug, [facility] [address] [facility] [id number] [address] [place] [phone] Aug, 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 [facility] [address] [facility] [id number] [address] [place] [id number] July, [facility] [address] [facility] [id number] [address] [place] [address] July, Essential hypertension, fito gn 401.1 ; 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 ; Chronic pain disorder 338.4 ; Hyperlipidemia 272.4 and Venous stasis ulcer of left lower extremity 454.0 [facility] [address] [id number] [address] [place] [id number] 14 Jun, 2014 [facility] [address] [facility] [id number] [address] [place] [phone] Jun, [facility] [address] [id number] [address] [place] [phone] May, [facility] [address] [id number] [address] [place] [phone] May, [facility] [address] [id number] [address] [place] [id number] Apr, [facility] [address] [id number] [address] [place] [id number] Apr, [facility] [address] [id number] [address] [place] [id number] Apr, [facility] [address] [id number] [address] [place] [id number] Apr, [facility] [address] [id number] [address] [place] [id number] Apr, [facility] [address] [id number] [address] [place] [phone] Apr, [facility] [address] [id number] [address] [place] [phone] Mar, [facility] [address] [id number] [address] [place] [phone] Mar, [facility] [address] [id number] [address] [place] [id number] Mar, [facility] [address] [id number] [address] [place] [phone] Mar, [facility] [address] [id number] [address] [place] [address], [place] [id number] 17 Feb, 2014 [facility] [address] [id number] [address] [place] [address], [place] [id number] Feb, [facility] [address] [id number] [address] [place] [address], [place] [id number] 16 Feb, 2014 [facility] [address] [id number] [address] [place] [address], [place] [id number] Feb, [facility] [address] [id number] [address] [place] [address], [place] [id number] Jan, [facility] [address] [id number] [address] [place] [address], [place] [id number] Jan, [facility] [address] [id number] [address] [place] [address], [place] [id number] Jan, [facility] [address] [id number] [address] [place] [address], [place] [id number] Jan, [facility] [address] [id number] [address] [place] [address], [place] [id number] Jan, [facility] [address] [id number] [address] [place] [address], [place] [id number] Jan, [facility] [address] [id number] [address] [place] [address], [place] [id number] Dec, [facility] [address] [id number] [address] [place] [address], [place] [id number] Dec, [facility] [address] [id number] [address] [place] [address], [place] [id number] Oct, [facility] [address] [id number] [address] [place] [address], [place] [id number] Oct, [facility] [address] [id number] [address] [place] [address], [place] [id number] Sep, [facility] [address] [id number] [address] [place] [address], [place] [id number] Sep, [facility] [address] [id number] [address] [place] [address], [place] [id number] Sep, [facility] [address] [id number] [address] [place] [address], [place] [id number] Sep, [facility] [address] [id number] [address] [place] [address], [place] [id number] Aug, [facility] [address] [id number] [address] [place] [address], [place] [id number] Aug, [facility] [address] [id number] [address] [place] [address], [place] [id number] July, [facility] [address] [id number] [address] [place] [address], [place] [id number] July, [facility] [address] [id number] [address] [place] [address], [place] [id number] Jun, [facility] [address] [id number] [address] [place] [address], [place] [id number] Jun, [facility] [address] [id number] [address] [place] [address], [place] [id number] May, [facility] [address] [id number] [address] [place] [address], [place] [id number] May, [facility] [address] [id number] [address] [place] [address], [place] [id number] Apr, [facility] [address] [id number] [address] [place] [address], [place] [id number] Apr, [facility] [address] [id number] [address] [place] [address], [place] [id number] Mar, [facility] [address] [id number] [address] [place] [address], [place] [id number] Mar, [facility] [address] [id number] [address] [place] [address], [place] [id number] Jan, [facility] [address] [id number] [address] [place] [address], [place] [id number] Jan, [facility] [address] [id number] [address] [place] [address], [place] [id number] Jan, [facility] [address] [id number] [address] [place] [address], [place] [id number] Jan, [facility] [address] [id number] [address] [place] [address], [place] [id number] Jan, [facility] [address] [id number] [address] [place] [address], [place] [id number] Dec, [facility] [address] [id number] [address] [place] [address], [place] [id number] Dec, [facility] [address] [id number] [address] [place] [address], [place] [id number] Dec, [facility] [address] [id number] [address] [place] [address], [place] [id number] Nov, [facility] [address] [id number] [address] [place] [address], [place] [id number] Nov, [facility] [address] [id number] [address] [place] [address], [place] [address] Sep, [facility] [address] [id number] [address] [place] [id number] Sep, [facility] [address] [id number] [address] [place] [id number] Aug, [facility] [address] [id number] [address] [place] [id number] Aug, [facility] [address] [id number] [place] [id number] July, [facility] [address] [id number] [place] [id number] Jun, [facility] [address] [id number] [place] [id number] Apr, [facility] [address] [id number] [place] [id number] Mar, [facility] [address] [id number] [address] [address] Mar, [facility] [address] [id number] [place] [id number] Mar, [facility] [address] [facility] [id number] [address] [place] [id number] Mar, [facility] [address] [id number] [place] [id number] Feb, [facility] [address] [facility] [id number] [address] [place] [id number] Feb, [facility] [address] [id number] [place] [id number] Feb, [facility] [address] [facility] [id number] [address] [place] [id number] Feb, [facility] [address] [id number] [place] [id number] Oct, [facility] [address] [id number] [place] [id number] Oct, [facility] [address] [id number] [place] [id number] July, [facility] [address] [id number] [place] [id number] July, [facility] [address] [id number] [place] [id number] Jun, [facility] [address] [id number] [place] [id number] Jun, [facility] [address] [id number] [place] [id number] Jun, [facility] [address] [id number] [place] [id number] Mar, [facility] [address] [id number] [place] [id number] Mar, [facility] [address] [id number] [address] [place] [id number] Feb, [facility] [address] [id number] [address] [place] [id number] Feb, [facility] [address] [id number] [address] [place] [id number] Jan, [facility] [address] [id number] [address] [place] [id number] Jan, [facility] [address] [id number] [address] [place] [id number] Jan, [facility] [address] [id number] [address] [place] [id number] Jan, [facility] [address] [id number] [address] [place] [id number] Jan, [facility] [address] [facility] [id number] [address] [place] [id number] Aug, [facility] [address] [id number] [address] [place] [id number] Apr, IMMUNIZATIONS No Known Immunizations SOCIAL HISTORY [...]
--- OUTSIDE RECORDS SUMMARY | 2019-11-08 13:01 | XMS REPORT ---
Author Author Zana ORTIZ Organization [facility] Address [address] [place] [address] Care Team Providers Care Under Seal Operator Name Role Phone DIANADAVIDAVANI Unavailable PROBLEMS Type Condition ICD9-CM Code UIZ71-LM Code Onset Dates Condition S tatus SNOMED Code Problem Factor V Leiden D68.51 Active 3070 38124 Problem Anticoagulant long-term use Z79.01 Ac tive 400510033 Problem Post-phlebitic syndrome I87.009 Active 25889648 Problem 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 17818110 Problem Other chronic pain G89.29 Active 8 2153617 Problem Venous stasis ulcers, left I83.029 Act ozzy 231898047 Problem Essential hypertension I10 Active 72633799 Problem Venous anomaly Q27.9 Active 57271 4003 Problem Congenital single kidney Q60.0 Activ e 12931062 Problem Chronic prescription opiate use Z79.899 Active 180488706 Problem Pure hypercholesterolemia E78.00 Acti ve 115056009 ALLERGIES No Information ENCOUNTERS Encounter Location Date Diagnosis [facility] [address] [id number] [address] [place] [id number] Nov, Anticoagulant long-term use Z79.[address] [place] [id number] [place] [id number] Nov, Anticoagulant long-term use Z79.01 [facility] [address] [id number] [address] [place] [phone] Nov, Anticoagulant long-term use Z79.01 [facility] [address] [id number] [address] [place] [id number] Nov, Other chronic pain G89.29 [facility] [address] [id number] [address] [place] [phone] Nov, Other chronic pain G89.29 [facility] [address] [id number] [address] [place] [id number] Nov, Anticoagulant long-term use Z79.01 [facility] [address] [id number] [id number] Nov, Factor V Leiden D68.51 [facility] [address] [id number] [id number] Nov, Factor V Leiden D68.51 [facility] [address] [id number] [address] [place] [phone] Nov, Anticoagulant long-term use Z79.01 [facility] [address] [id number] [id number] Nov, Anticoagulant long-term use Z79.01 [facility] [address] [id number] [address] [place] [phone] Nov, Essential hypertension I10 ; Factor V Leiden D68.51 and Anticoagulant long-term use Z79.[address] [facility] [address] [facility] [facility] [address] [id number][place] [id number] Oct, Anticoagulant long-term use Z79.01 [facility] [address] [id number] [address] [place] [id number] Oct, [facility] [address] [id number] [address] [place] [id number] Oct, Anticoagulant long-term use Z79.01 [facility] [address] [id number] [address] [place] [phone] Oct, Other chronic pain G89.29 [facility] [address] [id number] [address] [place] [id number] Oct, Anticoagulant long-term use Z79.01 [facility] [address] [id number] [address] [place] [phone] Oct, [place] [address] [id number] [address] [place] [id number] Sep, Anticoagulant long-term use Z79.01 [facility] [address] [id number][place] [id number] Sep, Anticoagulant long-term use Z79.01 [facility] [address] [id number] [address] [place] [phone] Sep, Other chronic pain G89.29 [facility] [address] [id number] [address] [place] [phone] Sep, Anticoagulant long-term use Z79.01 [facility] [address] [facility] [id number][place] [id number] Sep, Anticoagulant long-term use Z79.01 [facility] [address] [id number] [address] [place] [phone] Aug, Anticoagulant long-term use Z79.01 [facility] [address] [id number] [address] [place] [phone] Aug, Anticoagulant long-term use Z79.01 [facility] [address] [id number] [address] [place] [phone] Aug, Other chronic pain G89.29 [facility] [address] [id number] [address] [place] [phone] Aug, Other chronic pain G89.29 ; Anticoagulant long-term use Z79.01 ; Idiopathic chronic gout of multiple sites without tophus M1A.09X0 ; Oral pain K13.79 ; Dental infection K04.7 ; Essential hypertension I10 and Pure hypercholesterolemia E78.00 [facility] [address] [id number] [address] [place] [phone] July, Other chronic pain G89.29 [facility] [address] [id number] [address] [place] [phone] Jun, Other chronic pain G89.29 [facility] [address] [id number] [address] [place] [phone] Jun, [facility] [address] [id number] [address] [place] [phone] Jun, [facility] [address] [facility] [address] [id number][place] [id number] Jun, Anticoagulant long-term use Z79.01 and I diopathic chronic gout of multiple sites without tophus M1A.09X0 [place] [address] [id number] [address] [place] [phone] May, Other chronic pain G89.29 [place] [address] [id number] [address] [place] [id number] May, [place] [address] [id number] [address] [place] [phone] May, Anticoagulant long-term use Z79.01 [place] [address] [place] [id number] [address] [place] [phone] May, [facility] [address] [facility] [address] [id number][place] [id number] May, Anticoagulant long-term use Z79.01 [place] [address] [id number] [address] [place] [phone] May, Anticoagulant long-term use Z79.01 [place] [address] [id number] [address] [place] [phone] May, Anticoagulant long-term use Z79.[address] [facility] [address] [id number][place] [id number] May, Factor V Leiden D68.51 [place] [address] [id number] [address] [place] [id number] Apr, Other chronic pain G89.29 [place] [address] [place] [id number] [address] [place] [phone] Apr, Idiopathic chronic gout of m ultiple sites without tophus M1A.09X0 [facility] [address] [id number][place] [id number] Apr, Anticoagulant long-term use Z79.[address] [facility] [address] [id number][place] [id number] Apr, Anticoagulant long-term use Z79.01 ; Med ication side effect T88.7XXA and Idiopathic chronic gout of multiple sites without tophus M1A.09X0 [place] [address] [id number] [address] [place] [phone] Apr, [place] [address] [address] Apr, Anticoagulant long-term use Z79.01 [place] [address] [place] [id number] [address] [place] [id number] Apr, Medication side effect T88.7 XXA and Factor V Leiden D68.51 [place] [address] [id number] [address] [place] [phone] Apr, Idiopathic chronic gout of m ultiple sites without tophus M1A.09X0 and Anticoagulant long-term use Z79.[address] [facility] [address] [facility] [address] [id number][place] [id number] Mar, Factor V Leiden D68.51 and Anticoagulant long-term use Z79.01 [place] [address] [id number] [address] [place] [phone] Mar, Factor V Leiden D68.51 ; Ant icoagulant long-term use Z79.01 ; Idiopathic chronic gout of multiple sites without tophus M1A.09X0 ; Pure hypercholesterolemia E78.00 ; Other chronic pain G89.29 and BMI 40.0-44.9, adult Z68.41 [place] [address] [id number] [address] [place] [phone] Mar, [place] [address] [place] [id number] [address] [place] [phone] Mar, Other chronic pain G89.29 [facility] [address] [id number] [address] [place] [phone] Feb, Idiopathic chronic gout of m ultiple sites without tophus M1A.09X0 [place] [address] [id number][place] [id number] Feb, Anticoagulant long-term use Z79.01 and I diopathic chronic gout of multiple sites without tophus M1A.09X0 [facility] [address] [id number] [address] [place] [phone] 05 Feb, 2018 Anticoagulant long-term use Z79.01 and Idiopathic chronic gout of multiple sites without tophus M1A.09X0 [facility] [address] [id number] [address] [place] [phone] Feb, [facility] [address] [id number] [address] [place] [phone] Feb, Other chronic pain G89.29 [facility] [address] [id number] [address] [place] [phone] Jan, Other chronic pain G89.29 [facility] [address] [id number] [address] [place] [phone] Dec, Other chronic pain G89.29 [facility] [address] [id number] [address] [place] [phone] Dec, Anticoagulant long-term use Z79.01 [facility] [address] [id number] [address] [place] [phone] Dec, Chronic prescription opiate use Z79.899 ; Factor V Leiden D68.51 ; Other chronic pain G89.29 and Anticoagulant long-term use Z79.01 [facility] [address] [id number] [address] [place] [phone] Nov, Other chronic pain G89.29 [place] [address] [id number] [address] [place] [phone] Oct, Other chronic pain G89.29 [facility] [address] [id number] [address] [place] [phone] Sep, Other chronic pain G89.29 [facility] [address] [id number] [address] [place] [phone] Aug, Other chronic pain G89.29 [facility] [address] [id number] [address] [place] [phone] Aug, Venous stasis ulcers, left I 83.029 [place] [address] [id number] [address] [place] [phone] July, Other chronic pain G89.29 [place] [address] [id number] [address] [place] [phone] July, Venous stasis ulcers, left I 83.029 and Snoring R06.83 [place] [address] [id number] [address] [place] [phone] Jun, Idiopathic chronic gout of m ultiple sites without tophus M1A.09X0 [place] [address] [id number] [address] [place] [phone] Jun, Acute renal insufficiency N2 8.9 [place] [address] [id number] [address] [place] [phone] Jun, Other chronic pain G89.29 [place] [address] [id number] [address] [place] [phone] Jun, Acute renal insufficiency N2 8.9 [facility] [id number] [place] [id number] Jun, Idiopathic chronic gout of multiple site s without tophus M1A.09X0 ; Essential hypertension I10 and Anticoagulant long-term use Z79.01 [place] [address] [id number] [address] [place] [phone] Jun, Anticoagulant long-term use Z79.01 and Essential hypertension I10 [place] [address] [place] [phone] May, Idiopathic chronic gout of m ultiple sites without tophus M1A.09X0 [place] [address] [place] [id number] [place] [phone] May, [place] [address] [address] May, Essential hypertension I10 ; Pure hypercholesterolemia E78.00 ; Anticoagulant long-term use Z79.01 and Idiopathic chronic gout of multiple sites without tophus M1A.09X0 [place] [address] [address] May, Other chronic pain G89.29 [place] [address] [address] May, Anticoagulant long-term use Z79.01 [place] [address] [address] May, Chronic prescription opiate use Z79.899 ; Other chronic pain G89.29 ; Essential hypertension I10 ; Factor V Leiden D68.51 ; Anticoagulant long-term use Z79.01 ; Pure hypercholesterolemia E78.00 ; Venous stasis ulcers, left I83.029 ; Idiopathic chronic gout of multiple sites without tophus M1A.09X0 and Cellulitis of left lower extremity L03.116 [place] [address] [place] [address] Apr, Other chronic pain G89.29 [place] [address] [place] [id number] [place] [address] Mar, Other chronic pain G89.29 [place] [address] [place] [id number] [address] [place] [id number] Mar, Factor V Leiden D68.51 ; Pur e hypercholesterolemia E78.00 and Other chronic pain G89.29 [place] [address] [id number] [address] [place] [phone] 06 Feb, 2017 Other chronic pain G89.29 [place] [address] [id number] [address] [place] [id number] 08 Jan, 2017 Idiopathic chronic gout of m ultiple sites without tophus M1A.09X0 [place] [address] [id number] [address] [place] [id number] 08 Jan, 2017 Other chronic pain G89.29 [place] [address] [id number] [address] [place] [phone] 27 Dec, 2016 Anticoagulant long-term use Z79.01 ; Factor V Leiden D68.51 and Other chronic pain G89.29 [place] [address] [id number] [address] [place] [phone] Dec, Other chronic pain G89.29 [place] [address] [id number] [address] [place] [phone] Nov, Other chronic pain G89.29 [place] [address] [id number] [address] [place] [id number] Oct, Other chronic pain G89.29 [place] [address] [id number] [address] [place] [phone] Sep, Anticoagulant long-term use Z79.01 [place] [address] [id number] [address] [place] [id number] Sep, Chronic prescription opiate use Z79.899 ; Anticoagulant long-term use Z79.01 ; Essential hypertension I10 ; Pure hypercholesterolemia E78.00 ; Factor V Leiden D68.51 ; Venous stasis ulcers, left I83.029 ; Other chronic pain G89.29 and Idiopathic chronic gout of multiple sites without tophus M1A.09X0 [place] [address] [id number] [address] [place] [id number] Aug, Anticoagulant long-term use Z79.01 [facility] [address] [id number] [address] [place] [phone] Aug, Other chronic pain G89.29 [facility] [address] [id number] [address] [place] [id number] Aug, Essential hypertension I10 a nd Factor V Leiden D68.[address] [place] [id number] [place] [id number] Aug, Acute right ankle pain M25.571 and Tendo nitis of ankle M77.50 [facility] [address] [id number] [address] [place] [id number] Aug, [facility] [address] [id number] [address] [place] [phone] July, Other chronic pain G89.29 [facility] [address] [id number] [address] [place] [id number] Jun, Other chronic pain G89.29 [facility] [address] [id number] [address] [place] [phone] Jun, Other chronic pain G89.29 [facility] [address] [id number] [address] [place] [id number] Jun, Anticoagulant long-term use Z79.01 [facility] [address] [id number] [address] [place] [phone] May, Other chronic pain G89.29 [facility] [address] [id number] [address] [place] [phone] May, Anticoagulant long-term use Z79.01 [facility] [address] [id number] [address] [place] [id number] May, Other chronic pain G89.29 [facility] [address] [id number] [address] [place] [phone] Apr, Anticoagulant long-term use Z79.01 [facility] [address] [place] [phone] Apr, Other chronic pain G89.29 [facility] [id number] [address] Apr, Anticoagulant long-term use Z79.01 and Pure hypercholesterolemia E78.00 [facility] [address] [address] Mar, [facility] [address] [address] Mar, Anticoagulant long-term use Z79.01 [place] [address] [address] Mar, Other chronic pain G89.29 [place] [address] [address] Feb, Essential hypertension I10 ; Chronic prescription opiate use Z79.899 ; Other chronic pain G89.29 ; Screening Z13.9 ; Factor V Leiden D68.51 ; Anticoagulant long-term use Z79.01 ; Venous stasis dermatitis of left lower extremity I83.12 and Pure hypercholesterolemia E78.00 [place] [address] [address] Jan, Anticoagulant long-term use Z79.01 [facility] [address] [place] [id number] [address] [place] [address] Jan, Anticoagulant long-term use Z79.01 [facility] [address] [place] [id number] [address] [place] [phone] Jan, [place] [address] [address] Jan, [facility] [address] [address] Dec, [facility] [address] [address] 14 Nov, 2015 [facility] [address] [id number] [address] [place] [id number] Oct, Anticoagulant long-term use Z79.01 [facility] [address] [id number] [address] [place] [phone] Oct, [facility] [address] [id number] [address] [place] [phone] Oct, Anticoagulant long-term use Z79.01 [facility] [address] [id number] [address] [place] [phone] Sep, [facility] [address] [id number] [address] [place] [phone] Aug, [facility] [address] [id number] [address] [place] [id number] Aug, Chronic prescription opiate use Z79.899 ; Other chronic pain G89.29 ; Essential hypertension I10 and Pure hypercholesterolemia E78.0 [facility] [address] [id number] [address] [place] [phone] July, Hyperlipidemia, group D E78. 3 and Anticoagulant long-term use Z79.01 [facility] [address] [id number] [address] [place] [phone] July, Hyperlipidemia, group D E78. 3 ; Essential hypertension I10 and Factor V Leiden D68.51 [facility] [address] [id number] [address] [place] [id number] July, Essential hypertension I10 [facility] [address] [id number] [address] [place] [id number] Jun, Hyperlipidemia, group D E78. 3 [place] [address] [id number] [address] [place] [phone] Jun, Factor V Leiden D68.51 [facility] [address] [id number] [address] [place] [id number] May, Factor V Leiden D68.51 ; Hyp erlipidemia, group D E78.3 ; Essential hypertension I10 ; Other chronic pain G89.29 and Anticoagulant long-term use Z79.01 [facility] [address] [address] 04 May, 2015 Anticoagulant long-term use Z79.01 [facility] [address] [place] [id number] [address] [place] [phone] 04 May, 2015 Anticoagulant long-term use Z79.01 [facility] [address] [id number] [address] [place] [phone] 02 May, 2015 [facility] [id number] [address] Apr, [facility] [address] [place] [id number] [place] [phone] Mar, [facility] [address] [address] Mar, [facility] [address] [address] Feb, Anticoagulant long-term use Z79.01 [facility] [address] [id number] 16 Feb, 2015 Chronic prescription opiate use Z79.899 ; Other chronic pain G89.29 ; Hyperlipidemia, group D E78.3 ; Factor V Leiden D68.51 and Anticoagulant long- term use Z79.01 [facility] [id number] [place] [id number] 04 Feb, 2015 [facility] [address] [place] [id number] Jan, [place] [address] [id number] Dec, Hyperlipidemia, unspecified E78.5 [place] [id number] [place] [id number] Dec, Cellulitis of left lower ext remity L03.116 ; Venous stasis ulcers, left I83.029 and Factor V Leiden D68.51 [facility] [address] [id number] Dec, Hyperlipidemia 272.4 and Fac tor 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 [facility] [address] [id number] [address] [place] [phone] Dec, [facility] [address] [id number] [address] [place] [id number] Nov, 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 [facility] [id number] [place] [phone] Nov, [facility] [id number] [place] [phone] Nov, [facility] [address] [id number] Nov, [facility] [id number] [place] [phone] Oct, [facility] [address] [address] Oct, Hyperlipidemia 272.4 ; Chron ic pain disorder 338.4 ; Venous stasis ulcer of left lower extremity 454.0 and 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 [facility] [id number] [place] [phone] Sep, [facility] [id number] [place] [phone] Sep, [facility] [id number] [place] [id number] Sep, Hyperlipidemia 272.4 and Fac tor 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 [facility] [address] [place] [id number] [place] [id number] Aug, [facility] [address] [address] Aug, 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 [facility] [address] [id number] [address] [place] [id number] July, [facility] [address] [id number] [address] [place] [id number] July, Essential hypertension, fito gn 401.1 ; 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 ; Chronic pain disorder 338.4 ; Hyperlipidemia 272.4 and Venous stasis ulcer of left lower extremity 454.0 [facility] [address] [id number] [address] [place] [id number] Jun, [facility] [address] [id number] [address] [place] [phone] Jun, [facility] [address] [id number] [address] [place] [phone] May, [facility] [address] [id number] [address] [place] [id number] May, [facility] [address] [id number] [address] [place] [phone] Apr, [facility] [address] [id number] [address] [place] [phone] Apr, [facility] [address] [id number] [address] [place] [phone] Apr, [facility] [address] [id number] [address] [place] [phone] Apr, [facility] [address] [id number] [address] [place] [phone] Apr, [facility] [address] [id number] [address] [place] [id number] Apr, [facility] [address] [id number] [address] [place] [phone] Mar, [facility] [address] [id number] [address] [place] [id number] Mar, [facility] [address] [id number] [address] [place] [address], [place] [address] Mar, [facility] [address] [id number] [address] [place] [address], [place] [address] Mar, [facility] [address] [id number] [address] [place] [address], [place] [address] Feb, [facility] [address] [id number] [address] [place] [address], [place] [address] Feb, [facility] [address] [id number] [address] [place] [address], [place] [address] Feb, [facility] [address] [id number] [address] [place] [address], [place] [address] Feb, [facility] [address] [id number] [address] [place] [address], [place] [address] Jan, [facility] [address] [id number] [address] [place] [address], [place] [address] Jan, [facility] [address] [id number] [address] [place] [address], [place] [address] Jan, [facility] [address] [id number] [address] [place] [address], [place] [address] Jan, [facility] [address] [id number] [address] [place] [address], [place] [address] Jan, [facility] [address] [id number] [address] [place] [address], [place] [address] Jan, [facility] [address] [id number] [address] [place] [address], [place] [address] Dec, [facility] [address] [id number] [address] [place] [address], [place] [address] Dec, [facility] [address] [id number] [address] [place] [address], [place] [address] Oct, [facility] [address] [id number] [address] [place] [address], [place] [address] Oct, [facility] [address] [id number] [address] [place] [address], [place] [address] Sep, [facility] [address] [id number] [address] [place] [address], [place] [address] Sep, [facility] [address] [id number] [address] [place] [address], [place] [address] Sep, [facility] [address] [id number] [address] [place] [address], [place] [address] Sep, [facility] [address] [id number] [address] [place] [address], [place] [address] Aug, [facility] [address] [id number] [address] [place] [address], [place] [address] Aug, [facility] [address] [id number] [address] [place] [address], [place] [address] July, [facility] [address] [id number] [address] [place] [address], [place] [address] July, [facility] [address] [id number] [address] [place] [address], [place] [address] Jun, [facility] [address] [id number] [address] [place] [address], [place] [address] Jun, [facility] [address] [id number] [address] [place] [address], [place] [address] May, [facility] [address] [id number] [address] [place] [address], [place] [address] May, [facility] [address] [id number] [address] [place] [address], [place] [address] Apr, [facility] [address] [id number] [address] [place] [address], [place] [address] Apr, [facility] [address] [id number] [address] [place] [address], [place] [address] Mar, [facility] [address] [id number] [address] [place] [address], [place] [address] Mar, [facility] [address] [id number] [address] [place] [address], [place] [address] Jan, [facility] [address] [id number] [address] [place] [address], [place] [address] Jan, [facility] [address] [id number] [address] [place] [address], [place] [address] Jan, [facility] [address] [id number] [address] [place] [address], [place] [address] Jan, [facility] [address] [id number] [address] [place] [address], [place] [address] Jan, [facility] [address] [id number] [address] [place] [address], [place] [address] Dec, [facility] [address] [id number] [address] [place] [address], [place] [address] Dec, [facility] [address] [id number] [address] [place] [address], [place] [address] Dec, [facility] [address] [id number] [address] [place] [address], [place] [address] Nov, [facility] [address] [id number] [address] [place] [address], [place] [address] Nov, [facility] [address] [id number] [address] [place] [address], [place] [address] Sep, [facility] [address] [id number] [address] [place] [address], [place] [address] Sep, [facility] [address] [id number] [address] [place] [address], [place] [address] Aug, [facility] [address] [id number] [address] [place] [address], [place] [address] Aug, [facility] [id number] [place] [address] S [id number] July, [facility] [address] [id number] [place] [id number] Jun, [facility] [address] [id number] [place] [id number] Apr, [facility] [address] [id number] [place] [id number] Mar, [facility] [address] [id number] [place] [address] Mar, [facility] [address] [id number] [place] [id number] Mar, [facility] [address] [id number] [place] [address] Mar, [facility] [address] [id number] [place] [id number] Feb, [facility] [address] [id number] [address] [place] [address] Feb, [facility] [address] [id number] [place] [id number] Feb, [facility] [address] [id number] [address] [place] [address] Feb, [facility] [address] [id number] [place] [id number] Oct, [facility] [address] [id number] [place] [id number] Oct, [facility] [address] [id number] [place] [id number] July, [facility] [address] [id number] [place] [id number] July, [facility] [address] [id number] [place] [id number] Jun, [facility] [address] [id number] [place] [id number] Jun, [facility] [address] [id number] [place] [id number] Jun, [facility] [address] [id number] [place], Karin S [id number] Mar, [facility] [address] [id number] [place], Karin S [id number] Mar, [facility] [address] [id number] [address] [place] [address] Feb, [facility] [address] [id number] [address] [place] [id number] Feb, [facility] [address] [id number] [address] [place] [id number] Jan, [facility] [address] [id number] [address] [place] [id number] Jan, [facility] [address] [id number] [address] [place] [id number] Jan, [facility] [address] [id number] [address] [place] [address] Jan, [facility] [address] [id number] [address] [place] [address] Jan, [facility] [address] [id number] [address] [place] [id number] Aug, [facility] [address] [id number] [address] [place] [id number] Apr, IMMUNIZATIONS No Known Immunizations SOCIAL HISTORY [...]
--- OUTSIDE RECORDS SUMMARY | 2019-11-08 13:02 | XMS REPORT ---
Author Author Zana FIELDS [facility] Address [address] [place] [address] Care Team Providers Care Cradle Slide Maker Name Role Phone MECCA FIELDS Unavailable PROBLEMS Type Condition ICD9-CM Code [id number] Code Onset Dates Condition S tatus SNOMED Code Problem Factor V Leiden D68.51 Active 3070 44824 Problem Anticoagulant long-term use Z79.01 Ac tive 075670125 Problem Post-phlebitic syndrome I87.009 Active 45718776 Problem 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 78408423 Problem Other chronic pain G89.29 Active 8 7498030 Problem Venous stasis ulcers, left I83.029 Act ozzy 075543942 Problem Essential hypertension I10 Active 88919761 Problem Venous anomaly Q27.9 Active 02691 4003 Problem Congenital single kidney Q60.0 Activ e 29105112 Problem Chronic prescription opiate use Z79.899 Active 805183093 Problem Pure hypercholesterolemia E78.00 Acti ve [id number] ALLERGIES No Information ENCOUNTERS Encounter Location Date Diagnosis [facility] [address] [facility] [id number] [address] [place] [address] Sep, Anticoagulant long-term use Z79.01 [facility] [address] [id number] [id number] Sep, Anticoagulant long-term use Z79.01 [facility] [address] [facility] [id number] [address] [place] [address] Sep, Other chronic pain G89.29 [facility] [address] [facility] [id number] [address] [place] [address] Sep, Anticoagulant long-term use Z79.01 [facility] [address] [id number][place] [id number] Sep, Anticoagulant long-term use Z79.01 [facility] [address] [facility] [id number] [address] [place] [address] Aug, Anticoagulant long-term use Z79.01 [facility] [address] [facility] [id number] [address] [place] [address] Aug, Anticoagulant long-term use Z79.01 [facility] [address] [facility] [id number] [address] [place] [address] Aug, Other chronic pain G89.29 [place] [address] [facility] [id number] [address] [place] [address] Aug, Other chronic pain G89.29 ; Anticoagulant long-term use Z79.01 ; Idiopathic chronic gout of multiple sites without tophus M1A.09X0 ; Oral pain K13.79 ; Dental infection K04.7 ; Essential hypertension I10 and Pure hypercholesterolemia E78.00 [facility] [address] [facility] [id number] [address] [place] [address] July, Other chronic pain G89.29 [facility] [address] [facility] [id number] [address] [place] [address] Jun, Other chronic pain G89.29 [facility] [address] [facility] [id number] [address] [place] [phone] Jun, [facility] [address] [facility] [id number] [address] [place] [phone] Jun, [facility] [id number] [place] [id number] Jun, Anticoagulant long-term use Z79.01 and I diopathic chronic gout of multiple sites without tophus M1A.09X0 [facility] [address] [facility] [id number] [address] [place] [address] May, Other chronic pain G89.29 [facility] [address] [facility] [id number] [address] [place] [address] May, [place] [address] [facility] [id number] [address] [place] [address] May, Anticoagulant long-term use Z79.01 [place] [address] [facility] [id number] [address] [place] [address] May, [facility] [address] [id number][place] [id number] May, Anticoagulant long-term use Z79.01 [place] [address] [facility] [id number] [address] [place] [address] May, Anticoagulant long-term use Z79.01 [place] [address] [place] [id number] [address] [place] [address] May, Anticoagulant long-term use Z79.01 [facility] [id number] [place] [id number] May, Factor V Leiden D68.51 [place] [address] [facility] [id number] [address] [place] [address] Apr, Other chronic pain G89.29 [place] [address] [place] [id number] [address] [place] [address] Apr, Idiopathic chronic gout of m ultiple sites without tophus M1A.09X0 [facility] [address] [id number][place] [id number] Apr, Anticoagulant long-term use Z79.01 [facility] [address] [id number][place] [id number] Apr, Anticoagulant long-term use Z79.01 ; Med ication side effect T88.7XXA and Idiopathic chronic gout of multiple sites without tophus M1A.09X0 [place] [address] [facility] [id number] [address] [place] [address] Apr, [place] [address] [facility] [id number] [address] [place] [address] 14 Apr, 2018 Anticoagulant long-term use Z79.01 [place] [address] [facility] [id number] [address] [place] [address] Apr, Medication side effect T88.7 XXA and Factor V Leiden D68.51 [place] [address] [facility] [id number] [address] [place] [address] Apr, Idiopathic chronic gout of m ultiple sites without tophus M1A.09X0 and Anticoagulant long-term use Z79.01 [facility] [place] [address] [facility] [address] [id number][place] [id number] Mar, Factor V Leiden D68.51 and Anticoagulant long-term use Z79.01 [place] [address] [facility] [id number] [address] [place] [address] Mar, Factor V Leiden D68.51 ; Ant icoagulant long-term use Z79.01 ; Idiopathic chronic gout of multiple sites without tophus M1A.09X0 ; Pure hypercholesterolemia E78.00 ; Other chronic pain G89.29 and BMI 40.0-44.9, adult Z68.41 [place] [address] [place] [id number] [address] [place] [address] Mar, [place] [address] [facility] [id number] [address] [place] [phone] Mar, Other chronic pain G89.29 [place] [address] [place] [id number] [address] [place] [address] Feb, Idiopathic chronic gout of m ultiple sites without tophus M1A.09X0 [facility] [address] [facility] [address] [id number][place] [id number] Feb, Anticoagulant long-term use Z79.01 and I diopathic chronic gout of multiple sites without tophus M1A.09X0 [place] [address] [facility] [id number] [address] [place] [address] 05 Dec, 2018 Anticoagulant long-term use Z79.01 and Idiopathic chronic gout of multiple sites without tophus M1A.09X0 [facility] [address] [id number] [address] [place] [phone] Feb, [facility] [address] [id number] [address] [place] [address] Feb, Other chronic pain G89.29 [facility] [address] [facility] [id number] [address] [place] [address] Jan, Other chronic pain G89.29 [facility] [address] [id number] [address] [place] [address] Dec, Other chronic pain G89.29 [facility] [address] [facility] [id number] [address] [place] [address] Dec, Anticoagulant long-term use Z79.01 [facility] [address] [facility] [id number] [address] [place] [address] Dec, Chronic prescription opiate use Z79.899 ; Factor V Leiden D68.51 ; Other chronic pain G89.29 and Anticoagulant long-term use Z79.01 [facility] [address] [id number] [address] [place] [address] Nov, Other chronic pain G89.29 [facility] [address] [facility] [id number] [address] [place] [address] Oct, Other chronic pain G89.29 [facility] [address] [facility] [id number] [address] [place] [address] Sep, Other chronic pain G89.29 [facility] [address] [id number] [address] [place] [phone] Aug, Other chronic pain G89.29 [facility] [address] [facility] [id number] [address] [place] [address] Aug, Venous stasis ulcers, left I 83.029 [facility] [address] [facility] [id number] [address] [place] [address] July, Other chronic pain G89.29 [place] [address] [facility] [id number] [address] [place] [address] July, Venous stasis ulcers, left I 83.029 and Snoring R06.83 [place] [address] [facility] [id number] [address] [place] [address] Jun, Idiopathic chronic gout of m ultiple sites without tophus M1A.09X0 [place] [address] [facility] [id number] [address] [place] [address] Jun, Acute renal insufficiency N2 8.9 [place] [address] [facility] [id number] [address] [place] [address] Jun, Other chronic pain G89.29 [place] [address] [facility] [id number] [address] [place] [address] Jun, Acute renal insufficiency N2 8.[id number] [place] [address] [id number] Jun, Idiopathic chronic gout of multiple site s without tophus M1A.09X0 ; Essential hypertension I10 and Anticoagulant long-term use Z79.01 [place] [address] [facility] [id number] [address] [place] [address] Jun, Anticoagulant long-term use Z79.01 and Essential hypertension I10 [place] [address] [facility] [id number] [address] [place] [address] May, Idiopathic chronic gout of ultiple sites without tophus M1A.09X0 [place] [address] [facility] [id number] [address] [place] [address] May, [place] [address] [facility] [id number] [address] [place] [address] May, Essential hypertension I10 ; Pure hypercholesterolemia E78.00 ; Anticoagulant long-term use Z79.01 and Idiopathic chronic gout of multiple sites without tophus M1A.09X0 [place] [address] [id number] [address] [place] [address] May, Other chronic pain G89.29 [place] [address] [id number] [address] [place] [address] May, Anticoagulant long-term use Z79.01 [place] [address] [facility] [id number] [address] [place] [address] May, Chronic prescription opiate use Z79.899 ; Other chronic pain G89.29 ; Essential hypertension I10 ; Factor V Leiden D68.51 ; Anticoagulant long-term use Z79.01 ; Pure hypercholesterolemia E78.00 ; Venous stasis ulcers, left I83.029 ; Idiopathic chronic gout of multiple sites without tophus M1A.09X0 and Cellulitis of left lower extremity L03.116 [place] [address] [facility] [id number] [address] [place] [phone] Apr, Other chronic pain G89.29 [place] [address] [facility] [id number] [address] [place] [address] Mar, Other chronic pain G89.29 [place] [address] [facility] [id number] [address] [place] [address] Mar, Factor V Leiden D68.51 ; Pur e hypercholesterolemia E78.00 and Other chronic pain G89.29 [place] [address] [facility] [id number] [address] [place] [address] Feb, Other chronic pain G89.29 [place] [address] [id number] [address] [place] [phone] Jan, Idiopathic chronic gout of m ultiple sites without tophus M1A.09X0 [place] [address] [facility] [id number] [address] [place] [address] Jan, Other chronic pain G89.29 [place] [address] [facility] [id number] [address] [place] [address] Dec, Anticoagulant long-term use Z79.01 ; Factor V Leiden D68.51 and Other chronic pain G89.29 [place] [address] [facility] [id number] [address] [place] [address] Dec, Other chronic pain G89.29 [facility] [address] [facility] [id number] [address] [place] [id number] 13 Nov, 2016 Other chronic pain G89.29 [place] [address] [facility] [id number] [address] [place] [address] 16 Oct, 2016 Other chronic pain G89.29 [place] [address] [facility] [id number] [address] [place] [address] Sep, Anticoagulant long-term use Z79.01 [place] [address] [facility] [id number] [address] [place] [address] Sep, Chronic prescription opiate use Z79.899 ; Anticoagulant long-term use Z79.01 ; Essential hypertension I10 ; Pure hypercholesterolemia E78.00 ; Factor V Leiden D68.51 ; Venous stasis ulcers, left I83.029 ; Other chronic pain G89.29 and Idiopathic chronic gout of multiple sites without tophus M1A.09X0 [place] [address] [facility] [id number] [address] [place] [address] Aug, Anticoagulant long-term use Z79.01 [place] [address] [facility] [id number] [address] [place] [address] Aug, Other chronic pain G89.29 [place] [address] [facility] [id number] [address] [place] [address] Aug, Essential hypertension I10 a nd Factor V Leiden D68.[address] [place] [id number] [place] [address] [id number] 15 Aug, 2016 Acute right ankle pain M25.571 and Tendo nitis of ankle M77.50 [place] [address] [facility] [id number] [address] [place] [phone] 06 Aug, 2016 [place] [address] [place] [id number] [address] [place] [address] July, Other chronic pain G89.29 [facility] [address] [id number] [address] [place] [address] Jun, Other chronic pain G89.29 [facility] [address] [facility] [id number] [address] [place] [address] Jun, Other chronic pain G89.29 [facility] [address] [facility] [id number] [address] [place] [address] Jun, Anticoagulant long-term use Z79.01 [facility] [address] [facility] [id number] [address] [place] [address] May, Other chronic pain G89.29 [facility] [address] [facility] [id number] [address] [place] [address] May, Anticoagulant long-term use Z79.01 [facility] [address] [facility] [id number] [address] [place] [address] May, Other chronic pain G89.29 [facility] [address] [facility] [id number] [address] [place] [address] Apr, Anticoagulant long-term use Z79.01 [facility] [address] [facility] [id number] [address] [place] [address] Apr, Other chronic pain G89.29 [facility] [address] [id number] [address] [place] [address] Apr, Anticoagulant long-term use Z79.01 and Pure hypercholesterolemia E78.00 [facility] [address] [id number] [address] [place] [address] Mar, [facility] [address] [facility] [id number] [address] [place] [address] Mar, Anticoagulant long-term use Z79.01 [facility] [address] [facility] [id number] [address] [place] [address] Mar, Other chronic pain G89.29 [facility] [address] [id number] [address] [place] [id number] 08 Feb, 2016 Essential hypertension I10 ; Chronic prescription opiate use Z79.899 ; Other chronic pain G89.29 ; Screening Z13.9 ; Factor V Leiden D68.51 ; Anticoagulant long-term use Z79.01 ; Venous stasis dermatitis of left lower extremity I83.12 and Pure hypercholesterolemia E78.00 [facility] [address] [id number] [address] [place] [address] 14 Jan, 2016 Anticoagulant long-term use Z79.01 [facility] [address] [id number] [address] [place] [address] Jan, Anticoagulant long-term use Z79.01 [facility] [address] [facility] [id number] [address] [place] [address] Jan, [facility] [address] [id number] [address] [place] [address] Jan, [facility] [address] [id number] [address] [place] [address] Dec, [facility] [address] [id number] [address] [place] [phone] Nov, [facility] [address] [id number] [address] [place] [id number] Oct, Anticoagulant long-term use Z79.01 [facility] [address] [id number] [address] [place] [phone] Oct, [facility] [address] [id number] [address] [place] [address] Oct, Anticoagulant long-term use Z79.01 [facility] [address] [id number] [address] [place] [phone] Sep, [facility] [address] [id number] [address] [place] [address] Aug, [facility] [address] [facility] [id number] [address] [place] [address] Aug, Chronic prescription opiate use Z79.899 ; Other chronic pain G89.29 ; Essential hypertension I10 and Pure hypercholesterolemia E78.0 [facility] [address] [facility] [id number] [address] [place] [address] July, Hyperlipidemia, group D E78. 3 and Anticoagulant long-term use Z79.01 [place] [address] [facility] [id number] [address] [place] [address] July, Hyperlipidemia, group D E78. 3 ; Essential hypertension I10 and Factor V Leiden D68.51 [place] [address] [facility] [id number] [address] [place] [address] July, Essential hypertension I10 [place] [address] [place] [id number] [address] [place] [address] Jun, Hyperlipidemia, group D E78. 3 [place] [address] [facility] [id number] [address] [place] [address] Jun, Factor V Leiden D68.51 [place] [address] [facility] [id number] [address] [place] [address] May, Factor V Leiden D68.51 ; Hyp erlipidemia, group D E78.3 ; Essential hypertension I10 ; Other chronic pain G89.29 and Anticoagulant long-term use Z79.01 [place] [address] [facility] [id number] [address] [place] [address] May, Anticoagulant long-term use Z79.01 [place] [address] [facility] [id number] [address] [place] [address] May, Anticoagulant long-term use Z79.01 [place] [address] [facility] [id number] [address] [place] [address] May, [place] [address] [facility] [id number] [address] [place] [address] Apr, [facility] [address] [phone] Mar, [facility] [address] [address] Mar, [facility] [address] [address] Feb, Anticoagulant long-term use Z79.01 [place] [address] [address] Feb, Chronic prescription opiate use Z79.899 ; Other chronic pain G89.29 ; Hyperlipidemia, group D E78.3 ; Factor V Leiden D68.51 and Anticoagulant long- term use Z79.01 [place] [address] [address] Feb, [place] [address] [address] Jan, [place] [address] [address] Dec, Hyperlipidemia, unspecified E78.5 [place] [address] [address] Dec, Cellulitis of left lower ext remity L03.116 ; Venous stasis ulcers, left I83.029 and Factor V Leiden D68.51 [place] [address] [address] Dec, Hyperlipidemia 272.4 and Fac tor 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 [place] [address] [address] Dec, [place] [address] [address] Nov, 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 [place] [address] [address] Nov, [facility] [address] [facility] [id number] [address] [place] [address] Nov, [facility] [address] [facility] [id number] [address] [place] [address] Nov, [facility] [address] [facility] [id number] [address] [place] [address] Oct, [facility] [address] [facility] [id number] [place] [address] Oct, Hyperlipidemia 272.4 ; Chron ic pain disorder 338.4 ; Venous stasis ulcer of left lower extremity 454.0 and 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 [facility] [address] [facility] [id number] [address] [place] [address] Sep, [facility] [address] [place] [id number] [address] [place] [phone] Sep, [facility] [address] [facility] [id number] [address] [place] [phone] Sep, Hyperlipidemia 272.4 and Fac tor 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 [facility] [address] [facility] [id number] [address] [place] [id number] Aug, [facility] [address] [facility] [id number] [address] [place] [id number] Aug, 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 [facility] [id number] [place] [phone] July, [facility] [address] [facility] [id number] [address] [place] [id number] July, Essential hypertension, fito gn 401.1 ; 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 ; Chronic pain disorder 338.4 ; Hyperlipidemia 272.4 and Venous stasis ulcer of left lower extremity 454.0 [facility] [address] [facility] [id number] [address] [place] [phone] 14 Jun, 2014 [facility] [address] [place] [id number] [address] [place] [id number] Jun, [facility] [address] [id number] [address] [place] [address], [place] [id number] May, [facility] [address] [id number] [address] [place] [address], [place] [id number] May, [facility] [address] [id number] [address] [place] [address], [place] [id number] Apr, [facility] [address] [id number] [address] [place] [address], [place] [id number] Apr, [facility] [address] [id number] [address] [place] [address], [place] [id number] Apr, [facility] [address] [id number] [address] [place] [address], [place] [id number] 18 Apr, 2014 [facility] [address] [id number] [address] [place] [address], [place] [id number] Apr, [facility] [address] [id number] [address] [place] [address], [place] [id number] Apr, [facility] [address] [id number] [address] [place] [address], [place] [id number] Mar, [facility] [address] [id number] [address] [place] [address], [place] [id number] Mar, [facility] [address] [id number] [address] [place] [address], [place] [id number] Mar, [facility] [address] [id number] [address] [place] [address], [place] [address] Mar, [facility] [address] [id number] [address] [place] [address], [place] [address] Feb, [facility] [address] [id number] [address] [place] [address], [place] [address] Feb, [facility] [address] [id number] [address] [place] [address], [place] [id number] 16 Feb, 2014 [facility] [address] [id number] [address] [place] [address], [place] [address] Feb, [facility] [address] [id number] [address] [place] [address], [place] [id number] Jan, [facility] [address] [id number] [address] [place] [address], [place] [address] Jan, [facility] [address] [id number] [address] [place] [address], [place] [address] Jan, [facility] [address] [id number] [address] [place] [address], [place] [address] Jan, [facility] [address] [id number] [address] [place] [address], [place] [address] Jan, [facility] [address] [id number] [address] [place] [address], [place] [address] Jan, [facility] [address] [id number] [address] [place] [address], [place] [address] Dec, [facility] [address] [id number] [address] [place] [address], [place] [address] Dec, [facility] [address] [id number] [address] [place] [address], [place] [address] Oct, [facility] [address] [id number] [address] [place] [address], [place] [address] Oct, [facility] [address] [id number] [address] [place] [address], [place] [address] Sep, [facility] [address] [id number] [address] [place] [address], [place] [address] Sep, [facility] [address] [id number] [address] [place] [address], [place] [address] Sep, [facility] [address] [id number] [address] [place] [address], [place] [address] Sep, [facility] [address] [id number] [address] [place] [address], [place] [address] Aug, [facility] [address] [id number] [facility] [place] [address] Aug, [facility] [address] [id number] [address] [place] [address], [place] [address] July, [facility] [address] [id number] [address] [place] [address], [place] [address] July, [facility] [address] [id number] [address] [place] [address], [place] [address] Jun, [facility] [address] [id number] [address] [place] [address], [place] [address] Jun, [facility] [address] [id number] [address] [place] [address], [place] [address] May, [facility] [address] [id number] [address] [place] [address], [place] [address] May, [facility] [address] [id number] [address] [place] [address], [place] [address] Apr, [facility] [address] [id number] [address] [place] [address], [place] [address] Apr, [facility] [address] [id number] [address] [place] [address], [place] [address] Mar, [facility] [address] [id number] [address] [place] [address], [place] [address] Mar, [facility] [address] [id number] [address] [place] [address], [place] [address] Jan, [facility] [address] [id number] [address] [place] [address], [place] [address] Jan, [facility] [address] [id number] [address] [place] [address], [place] [address] Jan, [facility] [address] [id number] [address] [place] [address], [place] [address] Jan, [facility] [address] [id number] [address] [place] [address], [place] [address] Jan, [facility] [address] [id number] [address] [place] [address], [place] [address] Dec, [facility] [address] [id number] [address] [place] [address], [place] [address] Dec, [facility] [address] [id number] [address] [place] [address], [place] [address] Dec, [facility] [address] [id number] [address] [place] [address], [place] [address] Nov, [facility] [address] [id number] [address] [place] [address], [place] [address] Nov, [facility] [address] [id number] [address] [place] [address], [place] [address] Sep, [facility] [address] [id number] [address] [place] [address], [place] [address] Sep, [facility] [address] [id number] [address] [place] [id number] Aug, [facility] [address] [id number] [address] [place] [address] Aug, [facility] [address] [id number] [place] [id number] July, [facility] [address] [id number] [place] [id number] Jun, [facility] [address] [id number] [place] [id number] Apr, [facility] [address] [id number] [place] [id number] Mar, [facility] [address] [id number] [address] [place] [address] Mar, [facility] [address] [id number] [place] [id number] Mar, [facility] [address] [id number] [address] [place] [address] Mar, [facility] [address] [id number] [place] [id number] Feb, [facility] [address] [facility] [id number] [address] [place] [address] Feb, [facility] [address] [id number] [place] [id number] Feb, [facility] [address] [facility] [id number] [address] [place] [address] Feb, [facility] [address] [id number] [place] [id number] Oct, [facility] [address] [id number] [place] [id number] Oct, [facility] [address] [id number] [place] [id number] July, [facility] [address] [id number] [place] [id number] July, [facility] [address] [id number] [place] [id number] Jun, [facility] [address] [id number] [place] [id number] Jun, [facility] [address] [id number] [place] [id number] Jun, [facility] [address] [id number] [place] [id number] Mar, [facility] [address] [id number] [place] [id number] Mar, [facility] [address] [facility] [id number] [address] [place] [id number] Feb, [facility] [address] [facility] [id number] [address] [place] [id number] Feb, [facility] [address] [facility] [id number] [address] [place] [id number] Jan, [facility] [address] [facility] [id number] [address] [place] [id number] Jan, [facility] [address] [facility] [id number] [address] [place] [id number] Jan, [facility] [address] [facility] [id number] [address] [place] [id number] Jan, [facility] [address] [facility] [id number] [address] [place] [id number] Jan, [facility] [address] [facility] [id number] [address] [place] [id number] Aug, [facility] [address] [facility] [id number] [address] [place] [id number] 17 Apr, 2010 IMMUNIZATIONS No Known Immunizations SOCIAL HISTORY Never Assessed REASON FOR VISIT PLAN OF CARE VITAL SIGNS Height 76 in 2013-10-17 Weight 262.7 lbs 2013-10-17 Temperature 97.9 degrees Fahrenheit 2013-10-17 Heart Rate 64 bpm 2013-10-17 Respiratory Rate 18 2013-10-17 Blood pressure systolic 136 mmHg 2013-10-17 Blood pressure diastolic 80 mmHg 2013-10-17 MEDICATIONS Unknown Medications RESULTS No Results PROCEDURES [...]
--- OUTSIDE RECORDS SUMMARY | 2019-11-08 13:02 | XMS REPORT ---
Author Author Zana ORTIZ [facility] Address [address] [place] [address] Care Team Providers Care Licensed Esthetician Name Role Phone DIANA AVANI Unavailable PROBLEMS Type Condition ICD9-CM Code BOX81-IH Code Onset Dates Condition S tatus SNOMED Code Problem Factor V Leiden D68.51 Active 3070 91834 Problem Anticoagulant long-term use Z79.01 Ac tive 092297505 Problem Post-phlebitic syndrome I87.009 Active 82838380 Problem 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 04131326 Problem Other chronic pain G89.29 Active 8 4240354 Problem Venous stasis ulcers, left I83.029 Act ozzy 773222574 Problem Essential hypertension I10 Active 92590381 Problem Venous anomaly Q27.9 Active 88048 4003 Problem Congenital single kidney Q60.0 Activ e 38383519 Problem Chronic prescription opiate use Z79.899 Active 449835957 Problem Pure hypercholesterolemia E78.00 Acti ve [id number] ALLERGIES No Information ENCOUNTERS Encounter Location Date Diagnosis [place] [id number] [facility] [address] [id number] [id number] Sep, Anticoagulant long-term use Z79.01 [facility] [address] [facility] [id number] [address] [place] [address] Sep, Other chronic pain G89.29 [facility] [address] [facility] [id number] [address] [place] [address] Sep, Anticoagulant long-term use Z79.01 [facility] [address] [id number] [id number] Sep, Anticoagulant long-term use Z79.01 [facility] [address] [facility] [id number] [address] [place] [address] Aug, Anticoagulant long-term use Z79.01 [facility] [address] [id number] [address] [place] [address] Aug, Anticoagulant long-term use Z79.01 [facility] [address] [id number] [address] [place] [address] Aug, Other chronic pain G89.29 [facility] [address] [id number] [address] [place] [phone] Aug, Other chronic pain G89.29 ; Anticoagulant long-term use Z79.01 ; Idiopathic chronic gout of multiple sites without tophus M1A.09X0 ; Oral pain K13.79 ; Dental infection K04.7 ; Essential hypertension I10 and Pure hypercholesterolemia E78.00 [facility] [address] [facility] [id number] [address] [place] [address] July, Other chronic pain G89.29 [facility] [address] [id number] [address] [place] [address] Jun, Other chronic pain G89.29 [facility] [address] [id number] [address] [place] [address] Jun, [facility] [address] [id number] [address] [place] [address] Jun, [id number] [place] [id number] Jun, Anticoagulant long-term use Z79.01 and I diopathic chronic gout of multiple sites without tophus M1A.09X0 [facility] [address] [id number] [address] [place] [address] May, Other chronic pain G89.29 [facility] [address] [id number] [address] [place] [address] May, [facility] [address] [facility] [id number] [address] [place] [address] May, Anticoagulant long-term use Z79.01 [place] [address] [facility] [id number] [address] [place] [address] May, [facility] [address] [id number] [id number] May, Anticoagulant long-term use Z79.01 [place] [address] [facility] [id number] [address] [place] [address] May, Anticoagulant long-term use Z79.01 [place] [address] [facility] [id number] [address] [place] [address] May, Anticoagulant long-term use Z79.01 [facility] [id number] [place] [id number] May, Factor V Leiden D68.51 [place] [address] [place] [id number] [address] [place] [address] Apr, Other chronic pain G89.29 [place] [address] [facility] [id number] [address] [place] [address] Apr, Idiopathic chronic gout of m ultiple sites without tophus M1A.09X0 [facility] [address] [id number] [id number] Apr, Anticoagulant long-term use Z79.01 [facility] [address] [id number] [id number] Apr, Anticoagulant long-term use Z79.01 ; Med ication side effect T88.7XXA and Idiopathic chronic gout of multiple sites without tophus M1A.09X0 [place] [address] [facility] [id number] [address] [place] [address] Apr, [place] [address] [facility] [id number] [address] [place] [address] Apr, Anticoagulant long-term use Z79.01 [place] [address] [facility] [id number] [address] [place] [address] Apr, Medication side effect T88.7 XXA and Factor V Leiden D68.51 [place] [address] [facility] [id number] [address] [place] [address] Apr, Idiopathic chronic gout of m ultiple sites without tophus M1A.09X0 and Anticoagulant long-term use Z79.[address] [place] [address] [facility] [address] [id number][place] [id number] Mar, Factor V Leiden D68.51 and Anticoagulant long-term use Z79.01 [place] [address] [facility] [id number] [address] [place] [address] Mar, Factor V Leiden D68.51 ; Ant icoagulant long-term use Z79.01 ; Idiopathic chronic gout of multiple sites without tophus M1A.09X0 ; Pure hypercholesterolemia E78.00 ; Other chronic pain G89.29 and BMI 40.0-44.9, adult Z68.41 [place] [address] [place] [id number] [address] [place] [address] Mar, [place] [address] [place] [id number] [address] [place] [address] Mar, Other chronic pain G89.29 [place] [address] [facility] [id number] [place] [address] Feb, Idiopathic chronic gout of m ultiple sites without tophus M1A.09X0 [id number] [place] [id number] Feb, Anticoagulant long-term use Z79.01 and I diopathic chronic gout of multiple sites without tophus M1A.09X0 [place] [address] [facility] [id number] [address] [place] [address] Feb, Anticoagulant long-term use Z79.01 and Idiopathic chronic gout of multiple sites without tophus M1A.09X0 [place] [address] [facility] [id number] [address] [place] [address] Feb, [facility] [address] [facility] [id number] [address] [place] [address] Feb, Other chronic pain G89.29 [facility] [address] [id number] [address] [place] [address] Jan, Other chronic pain G89.29 [facility] [address] [facility] [id number] [address] [place] [address] Dec, Other chronic pain G89.29 [facility] [address] [id number] [address] [place] [address] Dec, Anticoagulant long-term use Z79.01 [facility] [address] [facility] [id number] [address] [place] [address] Dec, Chronic prescription opiate use Z79.899 ; Factor V Leiden D68.51 ; Other chronic pain G89.29 and Anticoagulant long-term use Z79.01 [facility] [address] [facility] [id number] [address] [place] [address] Nov, Other chronic pain G89.29 [facility] [address] [facility] [id number] [address] [place] [address] Oct, Other chronic pain G89.29 [facility] [address] [facility] [id number] [address] [place] [address] Sep, Other chronic pain G89.29 [facility] [address] [facility] [id number] [address] [place] [address] Aug, Other chronic pain G89.29 [facility] [address] [id number] [address] [place] [address] Aug, Venous stasis ulcers, left I 83.029 [facility] [address] [facility] [id number] [address] [place] [address] July, Other chronic pain G89.29 [facility] [address] [facility] [id number] [address] [place] [address] July, Venous stasis ulcers, left I 83.029 and Snoring R06.83 [facility] [address] [facility] [id number] [address] [place] [address] Jun, Idiopathic chronic gout of ultiple sites without tophus M1A.09X0 [facility] [address] [facility] [id number] [address] [place] [address] Jun, Acute renal insufficiency N2 8.9 [facility] [address] [facility] [id number] [address] [place] [address] Jun, Other chronic pain G89.29 [place] [address] [facility] [id number] [address] [place] [address] Jun, Acute renal insufficiency N2 8.[id number] [place] [id number] Jun, Idiopathic chronic gout of multiple site s without tophus M1A.09X0 ; Essential hypertension I10 and Anticoagulant long-term use Z79.01 [place] [address] [facility] [id number] [address] [place] [address] Jun, Anticoagulant long-term use Z79.01 and Essential hypertension I10 [facility] [address] [facility] [id number] [address] [place] [address] May, Idiopathic chronic gout of ultiple sites without tophus M1A.09X0 [place] [address] [facility] [id number] [address] [place] [address] May, [place] [address] [facility] [id number] [address] [place] [address] May, Essential hypertension I10 ; Pure hypercholesterolemia E78.00 ; Anticoagulant long-term use Z79.01 and Idiopathic chronic gout of multiple sites without tophus M1A.09X0 [place] [address] [facility] [id number] [address] [place] [address] May, Other chronic pain G89.29 [place] [address] [place] [id number] [address] [place] [address] May, Anticoagulant long-term use Z79.01 [place] [address] [place] [id number] [place] [address] May, Chronic prescription opiate use Z79.899 ; Other chronic pain G89.29 ; Essential hypertension I10 ; Factor V Leiden D68.51 ; Anticoagulant long-term use Z79.01 ; Pure hypercholesterolemia E78.00 ; Venous stasis ulcers, left I83.029 ; Idiopathic chronic gout of multiple sites without tophus M1A.09X0 and Cellulitis of left lower extremity L03.116 [place] [address] [facility] [id number] [address] [place] [address] Apr, Other chronic pain G89.29 [place] [address] [address] Mar, Other chronic pain G89.29 [place] [id number] [place] [address] Mar, Factor V Leiden D68.51 ; Pur e hypercholesterolemia E78.00 and Other chronic pain G89.29 [place] [address] [place] [id number] [address] [place] [address] Feb, Other chronic pain G89.29 [place] [address] [place] [id number] [address] [place] [address] Jan, Idiopathic chronic gout of m ultiple sites without tophus M1A.09X0 [place] [address] [place] [id number] [address] [place] [address] Jan, Other chronic pain G89.29 [place] [address] [place] [id number] [address] [place] [address] Dec, Anticoagulant long-term use Z79.01 ; Factor V Leiden D68.51 and Other chronic pain G89.29 [place] [address] [place] [id number] [address] [place] [address] Dec, Other chronic pain G89.29 [facility] [address] [facility] [id number] [address] [place] [address] 13 Nov, 2016 Other chronic pain G89.29 [facility] [address] [facility] [id number] [address] [place] [address] 16 Oct, 2016 Other chronic pain G89.29 [place] [address] [facility] [id number] [address] [place] [address] Sep, Anticoagulant long-term use Z79.01 [facility] [address] [facility] [id number] [address] [place] [address] Sep, Chronic prescription opiate use Z79.899 ; Anticoagulant long-term use Z79.01 ; Essential hypertension I10 ; Pure hypercholesterolemia E78.00 ; Factor V Leiden D68.51 ; Venous stasis ulcers, left I83.029 ; Other chronic pain G89.29 and Idiopathic chronic gout of multiple sites without tophus M1A.09X0 [place] [address] [facility] [id number] [address] [place] [address] Aug, Anticoagulant long-term use Z79.01 [place] [address] [facility] [id number] [address] [place] [address] Aug, Other chronic pain G89.29 [place] [address] [facility] [id number] [address] [place] [address] Aug, Essential hypertension I10 a nd Factor V Leiden D68.51 [facility] [id number] [place] [address] [id number] 15 Aug, 2016 Acute right ankle pain M25.571 and Tendo nitis of ankle M77.50 [place] [address] [facility] [id number] [address] [place] [address] Aug, [place] [address] [facility] [id number] [address] [place] [address] July, Other chronic pain G89.29 [place] [address] [facility] [id number] [address] [place] [address] Jun, Other chronic pain G89.29 [facility] [address] [facility] [id number] [address] [place] [address] Jun, Other chronic pain G89.29 [facility] [address] [facility] [id number] [address] [place] [address] Jun, Anticoagulant long-term use Z79.01 [facility] [address] [facility] [id number] [address] [place] [address] May, Other chronic pain G89.29 [facility] [address] [facility] [id number] [address] [place] [address] May, Anticoagulant long-term use Z79.01 [facility] [address] [facility] [id number] [address] [place] [address] May, Other chronic pain G89.29 [facility] [address] [facility] [id number] [address] [place] [address] Apr, Anticoagulant long-term use Z79.01 [facility] [address] [facility] [id number] [address] [place] [address] Apr, Other chronic pain G89.29 [facility] [address] [facility] [id number] [address] [place] [address] Apr, Anticoagulant long-term use Z79.01 and Pure hypercholesterolemia E78.00 [facility] [address] [facility] [id number] [address] [place] [address] Mar, [facility] [address] [facility] [id number] [address] [place] [address] Mar, Anticoagulant long-term use Z79.01 [facility] [address] [facility] [id number] [address] [place] [address] Mar, Other chronic pain G89.29 [facility] [address] [facility] [id number] [address] [place] [address] Feb, Essential hypertension I10 ; Chronic prescription opiate use Z79.899 ; Other chronic pain G89.29 ; Screening Z13.9 ; Factor V Leiden D68.51 ; Anticoagulant long-term use Z79.01 ; Venous stasis dermatitis of left lower extremity I83.12 and Pure hypercholesterolemia E78.00 [facility] [address] [facility] [id number] [address] [place] [address] 14 Jan, 2016 Anticoagulant long-term use Z79.01 [facility] [address] [facility] [id number] [address] [place] [address] Jan, Anticoagulant long-term use Z79.01 [facility] [address] [facility] [id number] [address] [place] [address] Jan, [facility] [address] [facility] [id number] [address] [place] [address] Jan, [facility] [address] [facility] [id number] [address] [place] [address] Dec, [facility] [address] [id number] [address] [place] [phone] Nov, [facility] [address] [facility] [id number] [address] [place] [address] Oct, Anticoagulant long-term use Z79.01 [facility] [address] [facility] [id number] [address] [place] [address] Oct, [facility] [address] [facility] [id number] [address] [place] [address] Oct, Anticoagulant long-term use Z79.01 [facility] [address] [id number] [address] [place] [phone] Sep, [facility] [address] [facility] [id number] [address] [place] [phone] Aug, [facility] [address] [facility] [id number] [address] [place] [address] Aug, Chronic prescription opiate use Z79.899 ; Other chronic pain G89.29 ; Essential hypertension I10 and Pure hypercholesterolemia E78.0 [facility] [address] [facility] [id number] [address] [place] [address] July, Hyperlipidemia, group D E78. 3 and Anticoagulant long-term use Z79.01 [facility] [address] [facility] [id number] [address] [place] [address] July, Hyperlipidemia, group D E78. 3 ; Essential hypertension I10 and Factor V Leiden D68.51 [facility] [address] [id number] [address] [place] [address] July, Essential hypertension I10 [place] [address] [facility] [id number] [address] [place] [address] Jun, Hyperlipidemia, group D E78. 3 [place] [address] [facility] [id number] [address] [place] [address] Jun, Factor V Leiden D68.51 [facility] [address] [facility] [id number] [address] [place] [address] May, Factor V Leiden D68.51 ; Hyp erlipidemia, group D E78.3 ; Essential hypertension I10 ; Other chronic pain G89.29 and Anticoagulant long-term use Z79.01 [place] [address] [facility] [id number] [address] [place] [address] May, Anticoagulant long-term use Z79.01 [facility] [address] [facility] [id number] [address] [place] [address] May, Anticoagulant long-term use Z79.01 [facility] [address] [facility] [id number] [address] [place] [phone] May, [place] [address] [facility] [id number] [address] [place] [address] Apr, [facility] [address] [facility] [id number] [address] [place] [address] Mar, [facility] [address] [facility] [id number] [address] [place] [phone] 04 Mar, 2015 [facility] [address] [facility] [id number] [address] [place] [address] Feb, Anticoagulant long-term use Z79.01 [facility] [address] [facility] [id number] [address] [place] [address] 16 Feb, 2015 Chronic prescription opiate use Z79.899 ; Other chronic pain G89.29 ; Hyperlipidemia, group D E78.3 ; Factor V Leiden D68.51 and Anticoagulant long- term use Z79.01 [facility] [address] [facility] [id number] [address] [place] [address] Feb, [facility] [address] [facility] [id number] [address] [place] [address] Jan, [facility] [address] [address] Dec, Hyperlipidemia, unspecified E78.5 [facility] [address] [facility] [id number] [address] [place] [address] Dec, Cellulitis of left lower ext remity L03.116 ; Venous stasis ulcers, left I83.029 and Factor V Leiden D68.51 [facility] [address] [facility] [id number] [address] [place] [address] Dec, Hyperlipidemia 272.4 and Fac tor 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 [facility] [address] [facility] [id number] [address] [place] [address] Dec, [facility] [address] [facility] [id number] [address] [place] [phone] Nov, 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 [facility] [address] [place] [id number] [address] [place] [phone] Nov, [facility] [address] [id number] [address] [place] [phone] Nov, [facility] [id number] [place] [address] Nov, [facility] [address] [facility] [id number] [address] [place] [phone] Oct, [facility] [address] [facility] [id number] [address] [place] [phone] Oct, Hyperlipidemia 272.4 ; Chron ic pain disorder 338.4 ; Venous stasis ulcer of left lower extremity 454.0 and 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 [facility] [id number] [place] [phone] Sep, [facility] [id number] [place] [phone] Sep, [facility] [id number] [place] [id number] Sep, Hyperlipidemia 272.4 and Fac tor 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 [facility] [address] [id number] Aug, [facility] [address] [id number] Aug, 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 [facility] [address] [id number] [address] [place] [phone] July, [facility] [address] [id number] July, Essential hypertension, fito gn 401.1 ; 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 ; Chronic pain disorder 338.4 ; Hyperlipidemia 272.4 and Venous stasis ulcer of left lower extremity 454.0 [facility] [address] [address] Jun, [facility] [address] [id number] Jun, [facility] [address] [id number] May, [facility] [address] [id number] [address] [place] [address], [place] [address] May, [facility] [address] [id number] [address] [place] [address], [place] [address] Apr, [facility] [address] [id number] [address] [place] [address], [place] [id number] 20 Apr, 2014 [facility] [address] [id number] [address] [place] [address], [place] [address] Apr, [facility] [address] [id number] [address] [place] [address], [place] [address] Apr, [facility] [address] [id number] [address] [place] [address], [place] [address] Apr, [facility] [address] [id number] [address] [place] [address], [place] [address] Apr, [facility] [address] [id number] [address] [place] [address], [place] [address] Mar, [facility] [address] [id number] [address] [place] [address], [place] [address] Mar, [facility] [address] [id number] [address] [place] [address], [place] [address] Mar, [facility] [address] [id number] [address] [place] [address], [place] [address] Mar, [facility] [address] [id number] [address] [place] [id number] Feb, [facility] [address] [id number] [address] [place] [address], [place] [address] Feb, [facility] [address] [id number] [address] [place] [address], [place] [address] 16 Feb, 2014 [facility] [address] [id number] [address] [place] [address], [place] [address] 16 Feb, 2014 [facility] [address] [id number] [address] [place] [id number] Jan, [facility] [address] [id number] [address] [place] [address], [place] [address] Jan, [facility] [address] [id number] [address] [place] [address], [place] [address] Jan, [facility] [address] [id number] [address] [place] [address], [place] [address] Jan, [facility] [address] [id number] [address] [place] [address], [place] [address] Jan, [facility] [address] [id number] [address] [place] [address], [place] [address] Jan, [facility] [address] [id number] [address] [place] [address], [place] [address] Dec, [facility] [address] [id number] [address] [place] [address], [place] [address] Dec, [facility] [address] [id number] [address] [place] [address], [place] [address] Oct, [facility] [address] [id number] [address] [place] [address], [place] [address] Oct, [facility] [address] [id number] [address] [place] [address], [place] [address] Sep, [facility] [address] [id number] [address] [place] [address], [place] [address] Sep, [facility] [address] [id number] [address] [place] [address], [place] [address] Sep, [facility] [address] [id number] [address] [place] [address], [place] [address] Sep, [facility] [address] [id number] [address] [place] [address], [place] [address] Aug, [facility] [address] [id number] [address] [place] [address], [place] [address] Aug, [facility] [address] [id number] [facility] [place] [address] July, [facility] [address] [id number] [address] [place] [address], [place] [address] July, [facility] [address] [id number] [address] [place] [address], [place] [address] Jun, [facility] [address] [id number] [address] [place] [address], [place] [address] Jun, [facility] [address] [id number] [address] [place] [address], [place] [address] May, [facility] [address] [id number] [address] [place] [address], [place] [address] May, [facility] [address] [id number] [address] [place] [address], [place] [address] Apr, [facility] [address] [id number] [address] [place] [address], [place] [address] Apr, [facility] [address] [id number] [address] [place] [address], [place] [address] Mar, [facility] [address] [id number] [address] [place] [address], [place] [address] Mar, [facility] [address] [id number] [address] [place] [address], [place] [address] Jan, [facility] [address] [id number] [address] [place] [address], [place] [address] Jan, [facility] [address] [id number] [address] [place] [address], [place] [address] Jan, [facility] [address] [id number] [address] [place] [address], [place] [address] Jan, [facility] [address] [id number] [address] [place] [address], [place] [address] Jan, [facility] [address] [id number] [address] [place] [address], [place] [address] Dec, [facility] [address] [id number] [address] [place] [address], [place] [address] Dec, [facility] [address] [id number] [address] [place] [id number] Dec, [facility] [address] [id number] [address] [place] [address], [place] [address] Nov, [facility] [address] [id number] [address] [place] [id number] Nov, [facility] [address] [id number] [address] [place] [address], [place] [address] Sep, [facility] [address] [id number] [address] [place] [address] Sep, [facility] [address] [id number] [address] [place] [address] Aug, [facility] [address] [id number] [address] [place] [address] Aug, [facility] [address] [id number] [place] [id number] July, [facility] [address] [id number] [place] [id number] Jun, [facility] [address] [id number] [place] [id number] Apr, [facility] [address] [id number] [place] [id number] Mar, [facility] [address] [id number] [address] [place] [address] Mar, [facility] [place] [address] [id number] [place] [id number] Mar, [facility] [address] [id number] [address] [place] [address], [place] [address] Mar, [facility] [address] [id number] [place] [id number] Feb, [facility] [address] [facility] [id number] [address] [place] [id number] Feb, [facility] [place] [address] [id number] [place] [id number] Feb, [facility] [address] [facility] [id number] [address] [place] [id number] Feb, [facility] [place] [address] [id number] [place] [id number] Oct, [facility] [place] [address] [id number] [place] [id number] Oct, [facility] [place] [address] [id number] [place] [id number] July, [facility] [place] [address] [id number] [place] [id number] July, [facility] [place] [address] [id number] [place] [id number] Jun, [facility] [place] [address] [id number] [place] [id number] Jun, [facility] [place] [address] [id number] [place] [id number] Jun, [facility] [place] [address] [id number] [place] [id number] Mar, [facility] [place] [address] [id number] [place] [id number] Mar, [facility] [address] [facility] [id number] [address] [place] [id number] Feb, [facility] [address] [facility] [id number] [address] [place] [id number] Feb, [facility] [address] [facility] [id number] [address] [place] [id number] Jan, [facility] [address] [facility] [id number] [address] [place] [id number] Jan, [facility] [address] [facility] [id number] [address] [place] [id number] Jan, [facility] [address] [facility] [id number] [address] [place] [id number] Jan, [facility] [address] [facility] [id number] [address] [place] [id number] Jan, [facility] [address] [facility] [id number] [address] [place] [id number] Aug, [facility] [address] [facility] [id number] [address] [place] [phone] Apr, IMMUNIZATIONS No Known Immunizations SOCIAL HISTORY Never Assessed REASON FOR VISIT PLAN OF CARE VITAL SIGNS Height 76 in 2014-02-12 Weight 266.1 lbs 2014-02-12 Temperature 98.6 degrees Fahrenheit 2014-02-12 Heart Rate 82 bpm 2014-02-12 Respiratory Rate 20 2014-02-12 Blood pressure systolic 126 mmHg 2014-02-12 Blood pressure diastolic 90 mmHg 2014-02-12 MEDICATIONS Unknown Medications RESULTS No Results PROCEDURES Procedure Date Ordered Result Body Site PROTHROMBIN TIME Feb 12, 2014 VISIT Feb 12, 2014 INSTRUCTIONS MEDICATIONS ADMINISTERED No Known Medications MEDICAL [...]
--- OUTSIDE RECORDS SUMMARY | 2019-11-08 13:02 | XMS REPORT ---
Author Author Zana ORTIZ Organization [facility] Address [address] [place] [address] Care Team Providers Care Clinical Phlebotomist Name Role Phone DIANA AVANI Unavailable PROBLEMS Type Condition ICD9-CM Code EEO53-VU Code Onset Dates Condition S tatus SNOMED Code Problem Factor V Leiden D68.51 Active 3070 49324 Problem Anticoagulant long-term use Z79.01 Ac tive 095050948 Problem Post-phlebitic syndrome I87.009 Active 84717484 Problem 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 92202879 Problem Other chronic pain G89.29 Active 8 6419562 Problem Venous stasis ulcers, left I83.029 Act ozzy 309559954 Problem Essential hypertension I10 Active 30024517 Problem Venous anomaly Q27.9 Active 25131 4003 Problem Congenital single kidney Q60.0 Activ e 65981186 Problem Chronic prescription opiate use Z79.899 Active 611829070 Problem Pure hypercholesterolemia E78.00 Acti ve [id number] ALLERGIES No Information ENCOUNTERS Encounter Location Date Diagnosis [facility] [address] [id number] [place] [id number] Nov, Factor V Leiden D68.51 [facility] [address] [facility] [id number] [address] [place] [address] Nov, Anticoagulant long-term use Z79.01 [facility] [address] [id number] [place] [id number] Nov, Anticoagulant long-term use Z79.01 [facility] [address] [facility] [id number] [address] [place] [address] Nov, Factor V Leiden D68.51 and A nticoagulant long-term use Z79.01 [facility] [place] [address] [id number] [place] [id number] Oct, Anticoagulant long-term use Z79.01 [facility] [address] [facility] [id number] [address] [place] [phone] Oct, [facility] [address] [facility] [id number] [address] [place] [address] Oct, Anticoagulant long-term use Z79.01 [facility] [address] [id number] [address] [place] [phone] Oct, Other chronic pain G89.29 [facility] [address] [facility] [id number] [address] [place] [address] Oct, Anticoagulant long-term use Z79.01 [facility] [address] [facility] [id number] [address] [place] [address] Oct, [facility] [address] [facility] [id number] [address] [place] [address] Sep, Anticoagulant long-term use Z79.01 [facility] [address] [facility] [address] [id number] [place] [id number] Sep, Anticoagulant long-term use Z79.01 [facility] [address] [facility] [id number] [address] [place] [address] Sep, Other chronic pain G89.29 [facility] [address] [facility] [id number] [address] [place] [address] Sep, Anticoagulant long-term use Z79.01 [facility] [address] [id number] [place] [id number] Sep, Anticoagulant long-term use Z79.01 [facility] [address] [facility] [id number] [address] [place] [address] Aug, Anticoagulant long-term use Z79.01 [facility] [address] [facility] [id number] [address] [place] [address] Aug, Anticoagulant long-term use Z79.01 [facility] [address] [id number] [address] [place] [address] Aug, Other chronic pain G89.29 [facility] [address] [id number] [address] [place] [address] Aug, Other chronic pain G89.29 ; Anticoagulant long-term use Z79.01 ; Idiopathic chronic gout of multiple sites without tophus M1A.09X0 ; Oral pain K13.79 ; Dental infection K04.7 ; Essential hypertension I10 and Pure hypercholesterolemia E78.00 [facility] [address] [id number] [address] [place] [address] July, Other chronic pain G89.29 [facility] [address] [facility] [id number] [address] [place] [address] Jun, Other chronic pain G89.29 [facility] [address] [facility] [id number] [address] [place] [phone] Jun, [facility] [address] [facility] [id number] [address] [place] [address] Jun, [facility] [address] [id number] [place] [id number] Jun, Anticoagulant long-term use Z79.01 and I diopathic chronic gout of multiple sites without tophus M1A.09X0 [facility] [address] [facility] [id number] [address] [place] [address] May, Other chronic pain G89.29 [facility] [address] [id number] [address] [place] [phone] May, [facility] [address] [facility] [id number] [address] [place] [address] May, Anticoagulant long-term use Z79.01 [facility] [address] [facility] [id number] [address] [place] [address] May, [facility] [address] [id number] [place] [id number] May, Anticoagulant long-term use Z79.01 [place] [address] [facility] [id number] [address] [place] [address] May, Anticoagulant long-term use Z79.01 [place] [address] [facility] [id number] [address] [place] [address] May, [facility] use Z79.01 [facility] [address] [id number] [place] [id number] May, Factor V Leiden D68.51 [place] [address] [facility] [id number] [address] [place] [address] Apr, Other chronic pain G89.29 [place] [address] [facility] [id number] [address] [place] [address] Apr, Idiopathic chronic gout of m ultiple sites without tophus M1A.09X0 [place] [address] [facility] [address] [id number] [place] [id number] Apr, Anticoagulant long-term use Z79.01 [facility] [place] [address] [facility] [address] [id number] [place] [id number] Apr, Anticoagulant long-term use Z79.01 ; Med ication side effect T88.7XXA and Idiopathic chronic gout of multiple sites without tophus M1A.09X0 [place] [address] [facility] [id number] [address] [place] [phone] Apr, [place] [address] [facility] [id number] [address] [place] [address] Apr, Anticoagulant long-term use Z79.01 [place] [address] [facility] [id number] [address] [place] [address] Apr, Medication side effect T88.7 XXA and Factor V Leiden D68.51 [place] [address] [facility] [id number] [address] [place] [address] Apr, Idiopathic chronic gout of m ultiple sites without tophus M1A.09X0 and Anticoagulant long-term use Z79.01 [facility] [address] [id number] [place] [id number] Mar, Factor V Leiden D68.51 and Anticoagulant long-term use Z79.01 [facility] [address] [facility] [id number] [address] [place] [address] Mar, Factor V Leiden D68.51 ; Ant icoagulant long-term use Z79.01 ; Idiopathic chronic gout of multiple sites without tophus M1A.09X0 ; Pure hypercholesterolemia E78.00 ; Other chronic pain G89.29 and BMI 40.0-44.9, adult Z68.41 [place] [address] [facility] [id number] [address] [place] [address] Mar, [place] [address] [place] [id number] [address] [place] [address] Mar, Other chronic pain G89.29 [facility] [address] [facility] [id number] [address] [place] [address] Feb, Idiopathic chronic gout of m ultiple sites without tophus M1A.09X0 [facility] [place] [address] [facility] [address] [id number] [place] [id number] Feb, Anticoagulant long-term use Z79.01 and I diopathic chronic gout of multiple sites without tophus M1A.09X0 [facility] [address] [facility] [id number] [address] [place] [address] Feb, Anticoagulant long-term use Z79.01 and Idiopathic chronic gout of multiple sites without tophus M1A.09X0 [place] [address] [facility] [id number] [address] [place] [address] Feb, [facility] [address] [facility] [id number] [address] [place] [address] Feb, Other chronic pain G89.29 [facility] [address] [facility] [id number] [address] [place] [address] Jan, Other chronic pain G89.29 [facility] [address] [facility] [id number] [address] [place] [address] Dec, Other chronic pain G89.29 [facility] [address] [facility] [id number] [address] [place] [phone] 05 Dec, 2017 Anticoagulant long-term use Z79.01 [facility] [address] [facility] [id number] [address] [place] [address] Dec, Chronic prescription opiate use Z79.899 ; Factor V Leiden D68.51 ; Other chronic pain G89.29 and Anticoagulant long-term use Z79.01 [facility] [address] [facility] [id number] [address] [place] [address] Nov, Other chronic pain G89.29 [facility] [address] [facility] [id number] [address] [place] [address] Oct, Other chronic pain G89.29 [facility] [address] [facility] [id number] [address] [place] [address] Sep, Other chronic pain G89.29 [facility] [address] [facility] [id number] [address] [place] [address] Aug, Other chronic pain G89.29 [facility] [address] [facility] [id number] [address] [place] [address] Aug, Venous stasis ulcers, left I 83.029 [facility] [address] [id number] [address] [place] [address] July, Other chronic pain G89.29 [facility] [address] [facility] [id number] [address] [place] [address] July, Venous stasis ulcers, left I 83.029 and Snoring R06.83 [facility] [address] [facility] [id number] [address] [place] [address] Jun, Idiopathic chronic gout of m ultiple sites without tophus M1A.09X0 [facility] [address] [facility] [id number] [address] [place] [phone] Jun, Acute renal insufficiency N2 8.9 [facility] [address] [facility] [id number] [address] [place] [address] Jun, Other chronic pain G89.29 [facility] [address] [facility] [id number] [address] [place] [address] Jun, Acute renal insufficiency N2 8.9 [place] [address] [facility] [address] [id number] [place] [id number] Jun, Idiopathic chronic gout of multiple site s without tophus M1A.09X0 ; Essential hypertension I10 and Anticoagulant long-term use Z79.01 [place] [address] [facility] [id number] [address] [place] [address] Jun, Anticoagulant long-term use Z79.01 and Essential hypertension I10 [facility] [address] [facility] [id number] [address] [place] [address] May, Idiopathic chronic gout of m ultiple sites without tophus M1A.09X0 [place] [address] [facility] [id number] [address] [place] [address] May, [place] [address] [facility] [id number] [address] [place] [address] May, Essential hypertension I10 ; Pure hypercholesterolemia E78.00 ; Anticoagulant long-term use Z79.01 and Idiopathic chronic gout of multiple sites without tophus M1A.09X0 [place] [address] [facility] [id number] [address] [place] [address] May, Other chronic pain G89.29 [facility] [address] [facility] [id number] [address] [place] [address] May, Anticoagulant long-term use Z79.01 [place] [address] [facility] [id number] [address] [place] [address] May, Chronic prescription opiate use Z79.899 ; Other chronic pain G89.29 ; Essential hypertension I10 ; Factor V Leiden D68.51 ; Anticoagulant long-term use Z79.01 ; Pure hypercholesterolemia E78.00 ; Venous stasis ulcers, left I83.029 ; Idiopathic chronic gout of multiple sites without tophus M1A.09X0 and Cellulitis of left lower extremity L03.116 [place] [address] [facility] [id number] [address] [place] [phone] Apr, Other chronic pain G89.29 [place] [address] [facility] [id number] [address] [place] [address] Mar, Other chronic pain G89.29 [place] [address] [facility] [id number] [address] [place] [address] Mar, Factor V Leiden D68.51 ; Pur e hypercholesterolemia E78.00 and Other chronic pain G89.29 [place] [address] [facility] [id number] [address] [place] [address] Feb, Other chronic pain G89.29 [place] [address] [facility] [id number] [address] [place] [address] Jan, Idiopathic chronic gout of m ultiple sites without tophus M1A.09X0 [place] [address] [facility] [id number] [address] [place] [address] Jan, Other chronic pain G89.29 [place] [address] [facility] [id number] [address] [place] [address] Dec, Anticoagulant long-term use Z79.01 ; Factor V Leiden D68.51 and Other chronic pain G89.29 [place] [address] [facility] [id number] [address] [place] [address] Dec, Other chronic pain G89.29 [place] [address] [place] [id number] [address] [place] [address] Nov, Other chronic pain G89.29 [place] [address] [place] [id number] [address] [place] [address] Oct, Other chronic pain G89.29 [facility] [address] [facility] [id number] [address] [place] [address] Sep, Anticoagulant long-term use Z79.01 [facility] [address] [facility] [id number] [address] [place] [address] Sep, Chronic prescription opiate use Z79.899 ; Anticoagulant long-term use Z79.01 ; Essential hypertension I10 ; Pure hypercholesterolemia E78.00 ; Factor V Leiden D68.51 ; Venous stasis ulcers, left I83.029 ; Other chronic pain G89.29 and 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 tophus M1A.09X0 [place] [address] [facility] [id number] [address] [place] [address] Aug, Anticoagulant long-term use Z79.01 [place] [address] [facility] [id number] [address] [place] [address] Aug, Other chronic pain G89.29 [place] [address] [facility] [id number] [address] [place] [address] Aug, Essential hypertension I10 a nd Factor V Leiden D68.[id number] [place] [id number] Aug, Acute right ankle pain M25.571 and Tendo nitis of ankle M77.50 [place] [address] [facility] [id number] [address] [place] [address] Aug, [place] [address] [facility] [id number] [address] [place] [address] July, Other chronic pain G89.29 [place] [address] [facility] [id number] [address] [place] [address] Jun, Other chronic pain G89.29 [place] [address] [facility] [id number] [address] [place] [address] Jun, Other chronic pain G89.29 [facility] [address] [facility] [id number] [address] [place] [address] Jun, Anticoagulant long-term use Z79.01 [facility] [address] [facility] [id number] [address] [place] [address] May, Other chronic pain G89.29 [facility] [address] [facility] [id number] [address] [place] [address] May, Anticoagulant long-term use Z79.01 [facility] [address] [facility] [id number] [address] [place] [address] May, Other chronic pain G89.29 [facility] [address] [facility] [id number] [address] [place] [address] Apr, Anticoagulant long-term use Z79.01 [place] [address] [facility] [id number] [address] [place] [address] Apr, Other chronic pain G89.29 [facility] [address] [facility] [id number] [address] [place] [address] Apr, Anticoagulant long-term use Z79.01 and Pure hypercholesterolemia E78.00 [place] [address] [facility] [id number] [address] [place] [address] Mar, [place] [address] [facility] [id number] [address] [place] [address] Mar, Anticoagulant long-term use Z79.01 [facility] [address] [facility] [id number] [address] [place] [address] Mar, Other chronic pain G89.29 [facility] [address] [facility] [id number] [address] [place] [address] Feb, Essential hypertension I10 ; Chronic prescription opiate use Z79.899 ; Other chronic pain G89.29 ; Screening Z13.9 ; Factor V Leiden D68.51 ; Anticoagulant long-term use Z79.01 ; Venous stasis dermatitis of left lower extremity I83.12 and Pure hypercholesterolemia E78.00 [facility] [address] [id number] [address] [place] [phone] 14 Jan, 2016 Anticoagulant long-term use Z79.01 [facility] [address] [id number] [address] [place] [phone] 10 Jan, 2016 Anticoagulant long-term use Z79.01 [facility] [address] [id number] [address] [place] [phone] 09 Jan, 2016 [facility] [address] [id number] [address] [place] [address] Jan, [facility] [address] [facility] [id number] [address] [place] [address] Dec, [facility] [address] [facility] [id number] [address] [place] [address] Nov, [facility] [address] [facility] [id number] [address] [place] [address] Oct, Anticoagulant long-term use Z79.01 [facility] [address] [id number] [address] [place] [address] Oct, [facility] [address] [facility] [id number] [address] [place] [address] Oct, Anticoagulant long-term use Z79.01 [facility] [address] [facility] [id number] [address] [place] [address] Sep, [facility] [address] [facility] [id number] [address] [place] [address] Aug, [facility] [address] [facility] [id number] [address] [place] [address] Aug, Chronic prescription opiate use Z79.899 ; Other chronic pain G89.29 ; Essential hypertension I10 and Pure hypercholesterolemia E78.0 [facility] [address] [facility] [id number] [address] [place] [address] July, Hyperlipidemia, group D E78. 3 and Anticoagulant long-term use Z79.01 [facility] [address] [facility] [id number] [address] [place] [address] July, Hyperlipidemia, group D E78. 3 ; Essential hypertension I10 and Factor V Leiden D68.51 [facility] [address] [facility] [id number] [address] [place] [address] July, Essential hypertension I10 [facility] [address] [facility] [id number] [address] [place] [address] Jun, Hyperlipidemia, group D E78. 3 [facility] [address] [facility] [id number] [address] [place] [address] Jun, Factor V Leiden D68.51 [facility] [address] [facility] [id number] [address] [place] [address] May, Factor V Leiden D68.51 ; Hyp erlipidemia, group D E78.3 ; Essential hypertension I10 ; Other chronic pain G89.29 and Anticoagulant long-term use Z79.01 [facility] [address] [facility] [id number] [address] [place] [address] May, Anticoagulant long-term use Z79.01 [place] [address] [facility] [id number] [address] [place] [address] May, Anticoagulant long-term use Z79.01 [facility] [address] [facility] [id number] [address] [place] [phone] May, [facility] [address] [facility] [id number] [address] [place] [phone] Apr, [facility] [address] [facility] [id number] [address] [place] [phone] Mar, [facility] [address] [facility] [id number] [address] [place] [phone] Mar, [facility] [address] [facility] [id number] [address] [place] [phone] Feb, Anticoagulant long-term use Z79.01 [facility] [address] [facility] [id number] [address] [place] [phone] 16 Feb, 2015 Chronic prescription opiate use Z79.899 ; Other chronic pain G89.29 ; Hyperlipidemia, group D E78.3 ; Factor V Leiden D68.51 and Anticoagulant long- term use Z79.01 [facility] [address] [facility] [id number] [address] [place] [phone] 04 Feb, 2015 [facility] [address] [phone] Jan, [facility] [address] [phone] Dec, Hyperlipidemia, unspecified E78.5 [facility] [address] [place] [id number] [address] [place] [phone] Dec, Cellulitis of left lower ext remity L03.116 ; Venous stasis ulcers, left I83.029 and Factor V Leiden D68.51 [facility] [address] [facility] [id number] [address] [place] [address] Dec, Hyperlipidemia 272.4 and Fac tor 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 [facility] [address] [place] [id number] [address] [place] [phone] Dec, [facility] [address] [id number] [address] [place] [id number] Nov, 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 [facility] [address] [id number] [address] [place] [id number] Nov, [facility] [id number] [place] [phone] Nov, [facility] [address] [id number] [address] [place] [phone] Nov, [facility] [address] [id number] [address] [place] [id number] Oct, [facility] [address] [id number] [address] [place] [id number] Oct, Hyperlipidemia 272.4 ; Chron ic pain disorder 338.4 ; Venous stasis ulcer of left lower extremity 454.0 and 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 [facility] [address] [facility] [id number] [address] [place] [phone] Sep, [facility] [address] [facility] [id number] [address] [place] [phone] Sep, [facility] [address] [facility] [id number] [address] [place] [address] Sep, Hyperlipidemia 272.4 and Fac tor 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 [facility] [id number] [place] [phone] Aug, [facility] [id number] [place] [phone] Aug, 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 [facility] [address] [id number] [address] [place] [phone] July, [facility] [id number] [place] [phone] July, Essential hypertension, fito gn 401.1 ; 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 ; Chronic pain disorder 338.4 ; Hyperlipidemia 272.4 and Venous stasis ulcer of left lower extremity 454.0 [facility] [address] [facility] [id number] [address] [place] [id number] Jun, [facility] [address] [facility] [id number] [address] [place] [phone] Jun, [facility] [id number] [address] [place] [phone] May, [facility] [id number] [address] [place] [phone] May, [facility] [address] [id number] [address] [place] [phone] Apr, [facility] [address] [id number] [address] [place] [address], [place] [address] 20 Apr, 2014 [facility] [address] [id number] [address] [place] [address], [place] [address] 18 Apr, 2014 [facility] [address] [id number] [address] [place] [address], [place] [address] 18 Apr, 2014 [facility] [address] [id number] [address] [place] [address], [place] [address] Apr, [facility] [address] [id number] [address] [place] [address], [place] [address] Apr, [facility] [address] [id number] [address] [place] [address], [place] [address] 15 Mar, 2014 [facility] [address] [id number] [address] [place] [address], [place] [address] Mar, [facility] [address] [id number] [address] [place] [address], [place] [address] Mar, [facility] [address] [id number] [address] [place] [address], [place] [address] Mar, [facility] [address] [id number] [address] [place] [address], [place] [address] 17 Feb, 2014 [facility] [address] [id number] [address] [place] [address], [place] [address] 17 Feb, 2014 [facility] [address] [id number] [address] [place] [address], [place] [address] 16 Feb, 2014 [facility] [address] [id number] [address] [place] [address], [place] [address] 16 Feb, 2014 [facility] [address] [id number] [address] [place] [address], [place] [address] 24 Jan, 2014 [facility] [address] [id number] [address] [place] [address], [place] [address] Jan, [facility] [address] [id number] [address] [place] [address], [place] [address] Jan, [facility] [address] [id number] [address] [place] [address], [place] [address] Jan, [facility] [address] [id number] [address] [place] [address], [place] [address] Jan, [facility] [address] [id number] [address] [place] [address], [place] [address] Jan, [facility] [address] [id number] [address] [place] [address], [place] [address] Dec, [facility] [address] [id number] [address] [place] [address], [place] [address] Dec, [facility] [address] [id number] [address] [place] [address], [place] [address] Oct, [facility] [address] [id number] [address] [place] [address], [place] [address] Oct, [facility] [address] [id number] [address] [place] [address], [place] [address] Sep, [facility] [address] [id number] [address] [place] [address], [place] [address] Sep, [facility] [address] [id number] [address] [place] [address], [place] [address] Sep, [facility] [address] [id number] [address] [place] [address], [place] [address] Sep, [facility] [address] [id number] [address] [place] [address], [place] [address] Aug, [facility] [address] [id number] [address] [place] [address], [place] [address] Aug, [facility] [address] [id number] [address] [place] [address], [place] [address] July, [facility] [address] [id number] [address] [place] [address], [place] [address] July, [facility] [address] [id number] [address] [place] [address], [place] [address] Jun, [facility] [address] [id number] [address] [place] [address], [place] [address] Jun, [facility] [address] [id number] [address] [place] [address], [place] [address] May, [facility] [address] [id number] [address] [place] [address], [place] [address] May, [facility] [address] [id number] [address] [place] [address], [place] [address] Apr, [facility] [address] [id number] [address] [place] [address], [place] [address] Apr, [facility] [address] [id number] [address] [place] [address], [place] [address] Mar, [facility] [address] [id number] [address] [place] [address], [place] [address] Mar, [facility] [address] [id number] [address] [place] [address], [place] [address] Jan, [facility] [address] [id number] [address] [place] [address], [place] [address] Jan, [facility] [address] [id number] [address] [place] [address], [place] [address] Jan, [facility] [address] [id number] [address] [place] [address], [place] [address] Jan, [facility] [address] [id number] [address] [place] [address], [place] [address] Jan, [facility] [address] [id number] [address] [place] [address], [place] [address] Dec, [facility] [address] [id number] [address] [place] [address], [place] [address] Dec, [facility] [address] [id number] [address] [place] [address] Dec, [facility] [address] [id number] [address] [place] [address] Nov, [facility] [address] [id number] [address] [place] [address] Nov, [facility] [address] [facility] [id number] [address] [place] [address] Sep, [facility] [address] [id number] [address] [place] [address] Sep, [facility] [address] [id number] [address] [place] [address] Aug, [facility] [address] [facility] [id number] [address] [place] [address] Aug, [facility] [address] [id number] [place] [id number] July, [facility] [place] [address] [id number] [place] [id number] Jun, [facility] [address] [id number] [place] [id number] Apr, [facility] [address] [id number] [place] [id number] Mar, [facility] [address] [id number] [address] [place] [address] Mar, [facility] [address] [id number] [place] [id number] Mar, [facility] [address] [id number] [address] [place] [address] Mar, [facility] [place] [address] [id number] [place] [id number] Feb, [facility] [address] [id number] [address] [place] [address] Feb, [facility] [address] [id number] [place] [id number] Feb, [facility] [address] [id number] [address] [place] [address] Feb, [facility] [place] [address] [id number] [place] [id number] Oct, [facility] [place] [address] [id number] [place] [id number] Oct, [facility] [place] [address] [id number] [place] [id number] July, [facility] [place] [address] [id number] [place] [id number] July, [facility] [place] [address] [id number] [place] [id number] Jun, [facility] [place] [address] [id number] [place] [id number] Jun, [facility] [place] [address] [id number] [place] [id number] Jun, [facility] [place] [address] [id number] [place] [id number] Mar, [facility] [place] [address] [id number] [place] [id number] Mar, [facility] [address] [facility] [id number] [address] [place] [address] Feb, [facility] [address] [facility] [id number] [address] [place] [id number] Feb, [facility] [address] [facility] [id number] [address] [place] [address] Jan, [facility] [address] [facility] [id number] [address] [place] [address] Jan, [facility] [address] [facility] [id number] [address] [place] [address] Jan, [facility] [address] [facility] [id number] [address] [place] [address] Jan, [facility] [address] [facility] [id number] [address] [place] [address] Jan, [facility] [address] [facility] [id number] [address] [address] Aug, [facility] [address] [facility] [id number] [address] [place] [id number] 17 Apr, 2010 IMMUNIZATIONS No Known Immunizations [...]
--- OUTSIDE RECORDS SUMMARY | 2019-11-08 13:03 | XMS REPORT ---
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 77907219 Problem Other chronic pain G89.29 Active 8 0290654 Problem Venous stasis ulcers, left I83.029 Act ozzy 336019402 Problem Essential hypertension I10 Active 22392038 Problem Venous anomaly Q27.9 Active 07537 4003 Problem Congenital single kidney Q60.0 Activ e 70373761 Problem Chronic prescription opiate use Z79.899 Active 086933004 Problem Pure hypercholesterolemia E78.00 Acti ve [id number] ALLERGIES No Information ENCOUNTERS Encounter Location Date Diagnosis [place] [id number] [facility] [id number] [address] [place] [address] Aug, Anticoagulant long-term use Z79.01 [facility] [address] [facility] [id number] [address] [place] [address] Aug, Anticoagulant long-term use Z79.01 [facility] [address] [facility] [id number] [address] [place] [address] Aug, Other chronic pain G89.29 [facility] [address] [facility] [id number] [address] [place] [address] Aug, Other chronic pain G89.29 ; Anticoagulant long-term use Z79.01 ; Idiopathic chronic gout of multiple sites without tophus M1A.09X0 ; Oral pain K13.79 ; Dental infection K04.7 ; Essential hypertension I10 and Pure hypercholesterolemia E78.00 [facility] [address] [facility] [id number] [address] [place] [address] July, Other chronic pain G89.29 [facility] [address] [facility] [id number] [address] [place] [address] Jun, Other chronic pain G89.29 [facility] [address] [id number] [address] [place] [address] Jun, [facility] [address] [facility] [id number] [address] [place] [address] Jun, [facility] [address] [id number] [id number] Jun, Anticoagulant long-term use Z79.01 and I diopathic chronic gout of multiple sites without tophus M1A.09X0 [facility] [address] [facility] [id number] [address] [place] [address] May, Other chronic pain G89.29 [facility] [address] [facility] [id number] [address] [place] [address] May, [facility] [address] [facility] [id number] [address] [place] [address] May, Anticoagulant long-term use Z79.01 [facility] [address] [facility] [id number] [address] [place] [address] May, [facility] [address] [id number] [id number] May, Anticoagulant long-term use Z79.01 [facility] [address] [facility] [id number] [address] [place] [address] May, Anticoagulant long-term use Z79.01 [facility] [address] [facility] [id number] [address] [place] [address] May, Anticoagulant long-term use Z79.[address] [facility] [address] [id number][place] [id number] May, Factor V Leiden D68.51 [place] [address] [facility] [id number] [address] [place] [address] Apr, Other chronic pain G89.29 [place] [address] [place] [id number] [address] [place] [address] Apr, Idiopathic chronic gout of m ultiple sites without tophus M1A.09X0 [facility] [address] [id number][place] [id number] Apr, Anticoagulant long-term use Z79.01 [facility] [address] [facility] [address] [id number][place] [id number] Apr, Anticoagulant long-term use Z79.01 ; Med ication side effect T88.7XXA and Idiopathic chronic gout of multiple sites without tophus M1A.09X0 [place] [address] [place] [address] Apr, [place] [address] [address] Apr, Anticoagulant long-term use Z79.01 [place] [address] [place] [id number] [address] [place] [address] Apr, Medication side effect T88.7 XXA and Factor V Leiden D68.51 [place] [address] [facility] [id number] [address] [place] [address] Apr, Idiopathic chronic gout of m ultiple sites without tophus M1A.09X0 and Anticoagulant long-term use Z79.01 [facility] [address] [id number][place] [id number] Mar, Factor V Leiden D68.51 and Anticoagulant long-term use Z79.01 [place] [address] [facility] [id number] [address] [place] [address] Mar, Factor V Leiden D68.51 ; Ant icoagulant long-term use Z79.01 ; Idiopathic chronic gout of multiple sites without tophus M1A.09X0 ; Pure hypercholesterolemia E78.00 ; Other chronic pain G89.29 and BMI 40.0-44.9, adult Z68.41 [facility] [address] [facility] [id number] [address] [place] [address] Mar, [facility] [address] [facility] [id number] [address] [place] [address] Mar, Other chronic pain G89.29 [place] [address] [facility] [id number] [address] [place] [address] Feb, Idiopathic chronic gout of m ultiple sites without tophus M1A.09X0 [id number] [place] [id number] Feb, Anticoagulant long-term use Z79.01 and I diopathic chronic gout of multiple sites without tophus M1A.09X0 [place] [address] [facility] [id number] [address] [place] [address] Feb, Anticoagulant long-term use Z79.01 and Idiopathic chronic gout of multiple sites without tophus M1A.09X0 [place] [address] [facility] [id number] [address] [place] [address] Feb, [facility] [address] [facility] [id number] [address] [place] [address] Feb, Other chronic pain G89.29 [place] [address] [facility] [id number] [address] [place] [address] Jan, Other chronic pain G89.29 [place] [address] [facility] [id number] [address] [place] [address] Dec, Other chronic pain G89.29 [place] [address] [facility] [id number] [address] [place] [address] Dec, Anticoagulant long-term use Z79.01 [facility] [address] [facility] [id number] [address] [place] [address] Dec, Chronic prescription opiate use Z79.899 ; Factor V Leiden D68.51 ; Other chronic pain G89.29 and Anticoagulant long-term use Z79.01 [facility] [address] [facility] [id number] [address] [place] [address] Nov, Other chronic pain G89.29 [facility] [address] [facility] [id number] [address] [place] [address] Oct, Other chronic pain G89.29 [place] [address] [facility] [id number] [address] [place] [address] Sep, Other chronic pain G89.29 [place] [address] [facility] [id number] [address] [place] [address] Aug, Other chronic pain G89.29 [place] [address] [facility] [id number] [address] [place] [address] Aug, Venous stasis ulcers, left I 83.029 [place] [address] [facility] [id number] [address] [place] [address] July, Other chronic pain G89.29 [place] [address] [facility] [id number] [address] [place] [address] July, Venous stasis ulcers, left I 83.029 and Snoring R06.83 [place] [address] [facility] [id number] [address] [place] [address] Jun, Idiopathic chronic gout of m ultiple sites without tophus M1A.09X0 [place] [address] [facility] [id number] [address] [place] [address] Jun, Acute renal insufficiency N2 8.9 [place] [address] [facility] [id number] [address] [place] [address] Jun, Other chronic pain G89.29 [place] [address] [place] [id number] [address] [place] [address] 18 Jun, 2017 Acute renal insufficiency N2 8.9 [place] [id number] [facility] [id number] [place] [id number] Jun, Idiopathic chronic gout of multiple site s without tophus M1A.09X0 ; Essential hypertension I10 and Anticoagulant long-term use Z79.01 [place] [address] [facility] [id number] [address] [place] [address] Jun, Anticoagulant long-term use Z79.01 and Essential hypertension I10 [place] [address] [facility] [id number] [address] [place] [address] May, Idiopathic chronic gout of m ultiple sites without tophus M1A.09X0 [place] [address] [place] [id number] [address] [place] [address] May, [place] [address] [place] [id number] [address] [place] [address] May, Essential hypertension I10 ; Pure hypercholesterolemia E78.00 ; Anticoagulant long-term use Z79.01 and Idiopathic chronic gout of multiple sites without tophus M1A.09X0 [place] [address] [place] [address] May, Other chronic pain G89.29 [place] [address] [place] [address] May, Anticoagulant long-term use Z79.01 [place] [address] [facility] [id number] [address] [place] [address] May, Chronic prescription opiate use Z79.899 ; Other chronic pain G89.29 ; Essential hypertension I10 ; Factor V Leiden D68.51 ; Anticoagulant long-term use Z79.01 ; Pure hypercholesterolemia E78.00 ; Venous stasis ulcers, left I83.029 ; Idiopathic chronic gout of multiple sites without tophus M1A.09X0 and Cellulitis of left lower extremity L03.116 [place] [address] [place] [id number] [address] [place] [address] Apr, Other chronic pain G89.29 [facility] [address] [id number] [address] [place] [address] Mar, Other chronic pain G89.29 [facility] [address] [id number] [address] [place] [address] Mar, Factor V Leiden D68.51 ; Pur e hypercholesterolemia E78.00 and Other chronic pain G89.29 [facility] [address] [id number] [address] [place] [address] Feb, Other chronic pain G89.29 [facility] [address] [id number] [address] [place] [address] Jan, Idiopathic chronic gout of m ultiple sites without tophus M1A.09X0 [facility] [address] [facility] [id number] [address] [place] [address] Jan, Other chronic pain G89.29 [facility] [address] [id number] [address] [place] [address] Dec, Anticoagulant long-term use Z79.01 ; Factor V Leiden D68.51 and Other chronic pain G89.29 [facility] [address] [id number] [address] [place] [address] Dec, Other chronic pain G89.29 [facility] [address] [id number] [address] [place] [address] Nov, Other chronic pain G89.29 [facility] [address] [id number] [address] [place] [address] Oct, Other chronic pain G89.29 [facility] [address] [facility] [id number] [address] [place] [address] Sep, Anticoagulant long-term use Z79.01 [facility] [address] [facility] [id number] [address] [place] [address] Sep, Chronic prescription opiate use Z79.899 ; Anticoagulant long-term use Z79.01 ; Essential hypertension I10 ; Pure hypercholesterolemia E78.00 ; Factor V Leiden D68.51 ; Venous stasis ulcers, left I83.029 ; Other chronic pain G89.29 and Idiopathic chronic gout of multiple sites without tophus M1A.09X0 [facility] [address] [facility] [id number] [address] [place] [address] Aug, Anticoagulant long-term use Z79.01 [facility] [address] [facility] [id number] [address] [place] [address] Aug, Other chronic pain G89.29 [facility] [address] [facility] [id number] [address] [place] [address] Aug, Essential hypertension I10 a nd Factor V Leiden D68.[id number] [place] [id number] Aug, Acute right ankle pain M25.571 and Tendo nitis of ankle M77.50 [facility] [address] [facility] [id number] [address] [place] [address] Aug, [facility] [address] [facility] [id number] [address] [place] [address] July, Other chronic pain G89.29 [facility] [address] [facility] [id number] [address] [place] [address] Jun, Other chronic pain G89.29 [facility] [address] [id number] [address] [place] [address] Jun, Other chronic pain G89.29 [facility] [address] [facility] [id number] [address] [place] [address] Jun, Anticoagulant long-term use Z79.01 [facility] [address] [facility] [id number] [address] [place] [address] May, Other chronic pain G89.29 [facility] [address] [place] [address] May, Anticoagulant long-term use Z79.01 [facility] [address] [address] May, Other chronic pain G89.29 [facility] [address] [place] [id number] [address] [place] [address] Apr, Anticoagulant long-term use Z79.01 [facility] [address] [place] [id number] [address] [place] [address] Apr, Other chronic pain G89.29 [facility] [address] [address] Apr, Anticoagulant long-term use Z79.01 and Pure hypercholesterolemia E78.00 [place] [address] [address] Mar, [facility] [address] [address] Mar, Anticoagulant long-term use Z79.01 [facility] [address] [address] Mar, Other chronic pain G89.29 [facility] [address] [place] [id number] [address] [place] [address] Feb, Essential hypertension I10 ; Chronic prescription opiate use Z79.899 ; Other chronic pain G89.29 ; Screening Z13.9 ; Factor V Leiden D68.51 ; Anticoagulant long-term use Z79.01 ; Venous stasis dermatitis of left lower extremity I83.12 and Pure hypercholesterolemia E78.00 [place] [address] [address] 14 Jan, 2016 Anticoagulant long-term use Z79.01 [facility] [address] [place] [id number] [address] [place] [address] 10 Jan, 2016 Anticoagulant long-term use Z79.01 [facility] [address] [place] [id number] [address] [place] [address] Jan, [facility] [address] [facility] [id number] [address] [place] [address] Jan, [facility] [address] [facility] [id number] [address] [place] [address] Dec, [facility] [address] [facility] [id number] [address] [place] [address] Nov, [facility] [address] [facility] [id number] [address] [place] [address] Oct, Anticoagulant long-term use Z79.01 [facility] [address] [facility] [id number] [address] [place] [address] Oct, [facility] [address] [facility] [id number] [place] [address] Oct, Anticoagulant long-term use Z79.01 [facility] [address] [facility] [id number] [address] [place] [address] Sep, [facility] [address] [facility] [id number] [address] [place] [address] Aug, [facility] [address] [place] [id number] [place] [address] Aug, Chronic prescription opiate use Z79.899 ; Other chronic pain G89.29 ; Essential hypertension I10 and Pure hypercholesterolemia E78.0 [facility] [address] [facility] [id number] [address] [place] [address] July, Hyperlipidemia, group D E78. 3 and Anticoagulant long-term use Z79.01 [facility] [address] [facility] [id number] [address] [place] [address] July, Hyperlipidemia, group D E78. 3 ; Essential hypertension I10 and Factor V Leiden D68.51 [facility] [address] [facility] [id number] [address] [place] [address] July, Essential hypertension I10 [place] [id number] [facility] [id number] [address] [place] [address] Jun, Hyperlipidemia, group D E78. 3 [facility] [address] [facility] [id number] [address] [place] [address] Jun, Factor V Leiden D68.51 [facility] [address] [facility] [id number] [address] [place] [address] May, Factor V Leiden D68.51 ; Hyp erlipidemia, group D E78.3 ; Essential hypertension I10 ; Other chronic pain G89.29 and Anticoagulant long-term use Z79.01 [facility] [address] [facility] [id number] [address] [place] [address] 04 May, 2015 Anticoagulant long-term use Z79.01 [place] [address] [facility] [id number] [address] [place] [address] May, Anticoagulant long-term use Z79.01 [facility] [address] [facility] [id number] [address] [place] [address] May, [facility] [address] [facility] [id number] [address] [place] [address] Apr, [facility] [address] [place] [id number] [address] [place] [address] Mar, [place] [address] [facility] [id number] [address] [place] [address] Mar, [facility] [address] [facility] [id number] [address] [place] [address] Feb, Anticoagulant long-term use Z79.01 [facility] [address] [facility] [id number] [address] [place] [address] Feb, Chronic prescription opiate use Z79.899 ; Other chronic pain G89.29 ; Hyperlipidemia, group D E78.3 ; Factor V Leiden D68.51 and Anticoagulant long- term use Z79.01 [facility] [address] [facility] [id number] [address] [place] [address] Feb, [facility] [address] [facility] [id number] [address] [place] [address] Jan, [facility] [address] [facility] [id number] [address] [place] [address] Dec, Hyperlipidemia, unspecified E78.5 [facility] [address] [facility] [id number] [address] [place] [address] Dec, Cellulitis of left lower ext remity L03.116 ; Venous stasis ulcers, left I83.029 and Factor V Leiden D68.51 [facility] [address] [facility] [id number] [address] [place] [address] Dec, Hyperlipidemia 272.4 and Fac tor 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 [facility] [address] [facility] [id number] [address] [place] [address] Dec, [facility] [address] [facility] [id number] [address] [place] [address] Nov, 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 [facility] [address] [facility] [id number] [address] [place] [address] Nov, [facility] [address] [facility] [id number] [address] [place] [address] Nov, [facility] [address] [facility] [id number] [address] [place] [address] Nov, [facility] [address] [facility] [id number] [address] [place] [address] Oct, [facility] [address] [facility] [id number] [address] [place] [address] Oct, Hyperlipidemia 272.4 ; Chron ic pain disorder 338.4 ; Venous stasis ulcer of left lower extremity 454.0 and 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 [facility] [address] [facility] [id number] [address] [place] [address] Sep, [facility] [address] [facility] [id number] [address] [place] [address] 13 Sep, 2014 [facility] [address] [facility] [id number] [address] [place] [address] Sep, Hyperlipidemia 272.4 and Fac tor 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 [facility] [address] [facility] [id number] [address] [place] [address] Aug, [facility] [address] [facility] [id number] [address] [place] [address] Aug, 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 [facility] [address] [facility] [id number] [address] [place] [address] July, [facility] [address] [facility] [id number] [address] [place] [id number] July, Essential hypertension, fiot gn 401.1 ; 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 ; Chronic pain disorder 338.4 ; Hyperlipidemia 272.4 and Venous stasis ulcer of left lower extremity 454.0 [facility] [address] [facility] [id number] [address] [place] [id number] Jun, [facility] [address] [facility] [id number] [address] [place] [phone] Jun, [facility] [address] [facility] [id number] [address] [place] [phone] May, [facility] [address] [facility] [id number] [address] [place] [phone] May, [facility] [address] [facility] [id number] [address] [place] [phone] Apr, [facility] [address] [facility] [id number] [address] [place] [id number] Apr, [facility] [address] [facility] [id number] [address] [place] [id number] Apr, [facility] [address] [facility] [id number] [address] [place] [id number] Apr, [facility] [address] [id number] [address] [place] [address], [place] [id number] Apr, [facility] [address] [id number] [address] [place] [address], [place] [phone] Apr, [facility] [address] [id number] [address] [place] [address], [place] [id number] 15 Mar, 2014 [facility] [address] [id number] [address] [place] [address], [place] [id number] Mar, [facility] [address] [id number] [address] [place] [address], [place] [id number] Mar, [facility] [address] [id number] [address] [place] [address], [place] [id number] Mar, [facility] [address] [id number] [address] [place] [address], [place] [id number] 17 Feb, 2014 [facility] [address] [id number] [address] [place] [address], [place] [id number] 17 Feb, 2014 [facility] [address] [id number] [address] [place] [address], [place] [id number] 16 Feb, 2014 [facility] [address] [id number] [address] [place] [address], [place] [id number] Feb, [facility] [address] [id number] [address] [place] [address], [place] [id number] 24 Jan, 2014 [facility] [address] [id number] [address] [place] [address], [place] [id number] Jan, [facility] [address] [id number] [address] [place] [address], [place] [id number] 19 Jan, 2014 [facility] [address] [id number] [address] [place] [address], [place] [id number] 14 Jan, 2014 [facility] [address] [id number] [address] [place] [address], [place] [id number] 14 Jan, 2014 [facility] [address] [id number] [address] [place] [id number] Jan, [facility] [address] [id number] [address] [place] [address], [place] [id number] Dec, [facility] [address] [id number] [address] [place] [address], [place] [id number] Dec, [facility] [address] [id number] [address] [place] [address], [place] [id number] Oct, [facility] [address] [id number] [address] [place] [address], [place] [id number] Oct, [facility] [address] [id number] [address] [place] [address], [place] [id number] Sep, [facility] [address] [id number] [address] [place] [address], [place] [id number] Sep, [facility] [address] [id number] [address] [place] [address], [place] [id number] Sep, [facility] [address] [id number] [address] [place] [address], [place] [id number] Sep, [facility] [address] [id number] [address] [place] [address], [place] [id number] Aug, [facility] [address] [id number] [address] [place] [address], [place] [id number] Aug, [facility] [address] [id number] [address] [place] [address], [place] [id number] July, [facility] [address] [id number] [address] [place] [address], [place] [id number] July, [facility] [address] [id number] [address] [place] [address], [place] [id number] Jun, [facility] [address] [id number] [address] [place] [address], [place] [id number] Jun, [facility] [address] [id number] [address] [place] [address], [place] [id number] May, [facility] [address] [id number] [address] [place] [address], [place] [id number] May, [facility] [address] [id number] [address] [place] [address], [place] [id number] Apr, [facility] [address] [id number] [address] [place] [address], [place] [id number] Apr, [facility] [address] [id number] [address] [place] [address], [place] [id number] Mar, [facility] [address] [id number] [address] [place] [address], [place] [id number] Mar, [facility] [address] [id number] [address] [place] [address], [place] [id number] Jan, [facility] [address] [id number] [address] [place] [address], [place] [id number] Jan, [facility] [address] [id number] [address] [place] [address], [place] [id number] Jan, [facility] [address] [id number] [address] [place] [address], [place] [id number] Jan, [facility] [address] [id number] [address] [place] [address], [place] [id number] Jan, [facility] [address] [id number] [address] [place] [address], [place] [id number] Dec, [facility] [address] [id number] [address] [place] [address], [place] [phone] Dec, [facility] [address] [id number] [address] [place] [address], [place] [id number] Dec, [facility] [address] [id number] [address] [place] [address], [place] [id number] Nov, [facility] [address] [id number] [address] [place] [address], [place] [id number] Nov, [facility] [address] [id number] [address] [place] [address], [place] [id number] Sep, [facility] [address] [id number] [address] [place] [id number] Sep, [facility] [address] [facility] [id number] [address] [place] [id number] Aug, [facility] [address] [facility] [id number] [address] [place] [id number] Aug, [facility] [address] [id number] [place] [id number] July, [facility] [address] [id number] [place] [id number] Jun, [facility] [address] [id number] [place] [id number] Apr, [facility] [address] [id number] [place] [id number] Mar, [facility] [address] [id number] [address] [place] [id number] Mar, [facility] [address] [id number] [place] [id number] Mar, [facility] [address] [facility] [id number] [address] [place] [id number] Mar, [facility] [address] [id number] [place] [id number] Feb, [facility] [address] [facility] [id number] [address] [place] [id number] Feb, [facility] [address] [id number] [place] [id number] Feb, [facility] [address] [id number] [address] [place] [id number] Feb, [facility] [address] [id number] [place] [id number] Oct, [facility] [address] [id number] [place] [id number] Oct, [facility] [address] [id number] [place] [id number] July, [facility] [address] [id number] [place] [id number] July, [facility] [place] [address] [id number] [place] [id number] Jun, [facility] [address] [id number] [place] [id number] Jun, [facility] [address] [id number] [place] [id number] Jun, [facility] [place] [address] [id number] [place] [id number] Mar, [facility] [address] [id number] [place] [id number] Mar, [facility] [address] [facility] [id number] [address] [place] [id number] Feb, [facility] [address] [facility] [id number] [address] [place] [id number] Feb, [facility] [address] [facility] [id number] [address] [place] [id number] Jan, [facility] [address] [facility] [id number] [address] [place] [id number] Jan, [facility] [address] [facility] [id number] [address] [place] [id number] Jan, [facility] [address] [facility] [id number] [address] [place] [id number] Jan, [facility] [address] [facility] [id number] [address] [place] [id number] Jan, [facility] [address] [facility] [id number] [address] [place] [id number] Aug, [facility] [address] [facility] [id number] [address] [place] [id number] Apr, IMMUNIZATIONS No Known Immunizations SOCIAL HISTORY Never Assessed REASON FOR VISIT PLAN OF CARE VITAL SIGNS Height 76 in 2014-05-09 Weight 277 lbs 2014-05-09 Temperature 97.5 degrees Fahrenheit 2014-05-09 Heart Rate 78 bpm 2014-05-09 Respiratory Rate 18 2014-05-09 Blood pressure systolic 122 mmHg 2014-05-09 Blood pressure diastolic 78 mmHg 2014-05-09 MEDICATIONS Unknown Medications RESULTS No Results PROCEDURES Procedure Date Ordered Result Body Site PROTHROMBIN TIME May 09, 2014 LIPID PANEL May 09, 2014 COMPREHEN METABOLIC PANEL May 09, 2014 VENIPUNCT, ROUTINE* May 09, 2014 INSTRUCTIONS MEDICATIONS ADMINISTERED No Known Medications [...]
--- OUTSIDE RECORDS SUMMARY | 2019-11-08 13:03 | XMS REPORT ---
Author Author Zana ORTIZ Organization [facility] Address [address] [place] [address] Care Team Providers Care Research Physiologist Name Role Phone DIANADAVIDAVANI Unavailable PROBLEMS Type Condition ICD9-CM Code ZEL59-EO Code Onset Dates Condition S tatus SNOMED Code Problem Factor V Leiden D68.51 Active 3070 61744 Problem Anticoagulant long-term use Z79.01 Ac tive 393987984 Problem Post-phlebitic syndrome I87.009 Active 27462287 Problem 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 05574640 Problem Other chronic pain G89.29 Active 8 3719137 Problem Venous stasis ulcers, left I83.029 Act ozzy 658283984 Problem Essential hypertension I10 Active 21634299 Problem Venous anomaly Q27.9 Active 67165 4003 Problem Congenital single kidney Q60.0 Activ e 71082081 Problem Chronic prescription opiate use Z79.899 Active 575449799 Problem Pure hypercholesterolemia E78.00 Acti ve [id number] ALLERGIES No Information ENCOUNTERS Encounter Location Date Diagnosis [facility] [address] [facility] [id number] [address] [place] [address] Sep, [facility] [address] [facility] [id number] [address] [place] [address] Sep, Anticoagulant long-term use Z79.01 [facility] [place] [address] [facility] [id number] [place] [address] [id number] Sep, Anticoagulant long-term use Z79.01 [facility] [address] [facility] [id number] [address] [place] [address] Aug, Anticoagulant long-term use Z79.01 [facility] [address] [facility] [id number] [address] [place] [address] Aug, Anticoagulant long-term use Z79.01 [facility] [address] [id number] [address] [place] [address] Aug, Other chronic pain G89.29 [facility] [address] [id number] [address] [place] [address] Aug, Other chronic pain G89.29 ; Anticoagulant long-term use Z79.01 ; Idiopathic chronic gout of multiple sites without tophus M1A.09X0 ; Oral pain K13.79 ; Dental infection K04.7 ; Essential hypertension I10 and Pure hypercholesterolemia E78.00 [facility] [address] [id number] [address] [place] [address] July, Other chronic pain G89.29 [facility] [address] [id number] [address] [place] [address] Jun, Other chronic pain G89.29 [facility] [address] [id number] [address] [place] [address] Jun, [facility] [address] [facility] [id number] [address] [place] [address] Jun, [facility] [id number] [place] [address] [id number] Jun, Anticoagulant long-term use Z79.01 and I diopathic chronic gout of multiple sites without tophus M1A.09X0 [facility] [address] [id number] [address] [place] [address] May, Other chronic pain G89.29 [facility] [address] [id number] [address] [place] [address] May, [facility] [address] [id number] [address] [place] [address] May, Anticoagulant long-term use Z79.01 [facility] [address] [facility] [id number] [address] [place] [address] May, [facility] [address] [id number] [id number] May, Anticoagulant long-term use Z79.01 [facility] [address] [facility] [id number] [address] [place] [address] May, Anticoagulant long-term use Z79.01 [facility] [address] [facility] [id number] [address] [place] [address] May, Anticoagulant long-term use Z79.01 [facility] [address] [id number] [id number] May, Factor V Leiden D68.51 [place] [address] [place] [id number] [address] [place] [address] Apr, Other chronic pain G89.29 [place] [address] [place] [id number] [address] [place] [address] Apr, Idiopathic chronic gout of m ultiple sites without tophus M1A.09X0 [facility] [place] [address] [facility] [address] [id number] [id number] Apr, Anticoagulant long-term use Z79.01 [facility] [place] [address] [facility] [address] [id number][place] [id number] Apr, Anticoagulant long-term use Z79.01 ; Med ication side effect T88.7XXA and Idiopathic chronic gout of multiple sites without tophus M1A.09X0 [place] [address] [facility] [id number] [address] [place] [phone] Apr, [place] [address] [facility] [id number] [address] [place] [address] Apr, Anticoagulant long-term use Z79.01 [place] [address] [facility] [id number] [address] [place] [address] Apr, Medication side effect T88.7 XXA and Factor V Leiden D68.51 [place] [address] [facility] [id number] [address] [place] [address] Apr, Idiopathic chronic gout of m ultiple sites without tophus M1A.09X0 and Anticoagulant long-term use Z79.01 [facility] [address] [id number] [id number] Mar, Factor V Leiden D68.51 and Anticoagulant long-term use Z79.01 [facility] [address] [facility] [id number] [address] [place] [address] Mar, Factor V Leiden D68.51 ; Ant icoagulant long-term use Z79.01 ; Idiopathic chronic gout of multiple sites without tophus M1A.09X0 ; Pure hypercholesterolemia E78.00 ; Other chronic pain G89.29 and BMI 40.0-44.9, adult Z68.41 [place] [address] [facility] [id number] [address] [place] [address] Mar, [place] [address] [facility] [id number] [address] [place] [address] Mar, Other chronic pain G89.29 [facility] [address] [facility] [id number] [address] [place] [address] Feb, Idiopathic chronic gout of m ultiple sites without tophus M1A.09X0 [facility] [place] [address] [facility] [address] [id number][place] [id number] Feb, Anticoagulant long-term use Z79.01 and I diopathic chronic gout of multiple sites without tophus M1A.09X0 [facility] [address] [facility] [id number] [address] [place] [address] Feb, Anticoagulant long-term use Z79.01 and Idiopathic chronic gout of multiple sites without tophus M1A.09X0 [facility] [address] [facility] [id number] [address] [place] [address] Feb, [facility] [address] [facility] [id number] [address] [place] [address] Feb, Other chronic pain G89.29 [facility] [address] [id number] [address] [place] [address] Jan, Other chronic pain G89.29 [facility] [address] [id number] [address] [place] [address] Dec, Other chronic pain G89.29 [facility] [address] [id number] [address] [place] [address] Dec, Anticoagulant long-term use Z79.01 [facility] [address] [id number] [address] [place] [address] Dec, Chronic prescription opiate use Z79.899 ; Factor V Leiden D68.51 ; Other chronic pain G89.29 and Anticoagulant long-term use Z79.01 [facility] [address] [facility] [id number] [address] [place] [address] Nov, Other chronic pain G89.29 [facility] [address] [id number] [address] [place] [address] Oct, Other chronic pain G89.29 [facility] [address] [id number] [address] [place] [address] Sep, Other chronic pain G89.29 [facility] [address] [id number] [address] [place] [address] Aug, Other chronic pain G89.29 [facility] [address] [facility] [id number] [address] [place] [address] Aug, Venous stasis ulcers, left I 83.029 [facility] [address] [facility] [id number] [address] [place] [address] July, Other chronic pain G89.29 [facility] [address] [facility] [id number] [address] [place] [address] July, Venous stasis ulcers, left I 83.029 and Snoring R06.83 [facility] [address] [facility] [id number] [address] [place] [address] Jun, Idiopathic chronic gout of m ultiple sites without tophus M1A.09X0 [facility] [address] [facility] [id number] [address] [place] [address] Jun, Acute renal insufficiency N2 8.9 [facility] [address] [facility] [id number] [address] [place] [address] Jun, Other chronic pain G89.29 [facility] [address] [facility] [id number] [address] [place] [address] Jun, Acute renal insufficiency N2 8.[id number] [place] [address] [id number] Jun, Idiopathic chronic gout of multiple site s without tophus M1A.09X0 ; Essential hypertension I10 and Anticoagulant long-term use Z79.01 [place] [address] [facility] [id number] [address] [place] [address] Jun, Anticoagulant long-term use Z79.01 and Essential hypertension I10 [facility] [address] [facility] [id number] [address] [place] [address] May, Idiopathic chronic gout of m ultiple sites without tophus M1A.09X0 [facility] [address] [facility] [id number] [address] [place] [address] May, [facility] [address] [facility] [id number] [address] [place] [address] May, Essential hypertension I10 ; Pure hypercholesterolemia E78.00 ; Anticoagulant long-term use Z79.01 and Idiopathic chronic gout of multiple sites without tophus M1A.09X0 [place] [address] [facility] [id number] [address] [place] [address] May, Other chronic pain G89.29 [facility] [address] [facility] [id number] [address] [place] [address] May, Anticoagulant long-term use Z79.01 [facility] [address] [facility] [id number] [address] [place] [address] May, Chronic prescription opiate use Z79.899 ; Other chronic pain G89.29 ; Essential hypertension I10 ; Factor V Leiden D68.51 ; Anticoagulant long-term use Z79.01 ; Pure hypercholesterolemia E78.00 ; Venous stasis ulcers, left I83.029 ; Idiopathic chronic gout of multiple sites without tophus M1A.09X0 and Cellulitis of left lower extremity L03.116 [place] [address] [facility] [id number] [address] [place] [address] Apr, Other chronic pain G89.29 [place] [address] [facility] [id number] [address] [place] [address] Mar, Other chronic pain G89.29 [place] [address] [facility] [id number] [address] [place] [address] Mar, Factor V Leiden D68.51 ; Pur e hypercholesterolemia E78.00 and Other chronic pain G89.29 [place] [address] [facility] [id number] [address] [place] [address] Feb, Other chronic pain G89.29 [place] [address] [facility] [id number] [address] [place] [address] Jan, Idiopathic chronic gout of m ultiple sites without tophus M1A.09X0 [place] [address] [facility] [id number] [address] [place] [address] Jan, Other chronic pain G89.29 [place] [address] [facility] [id number] [address] [place] [address] Dec, Anticoagulant long-term use Z79.01 ; Factor V Leiden D68.51 and Other chronic pain G89.29 [place] [address] [facility] [id number] [address] [place] [address] Dec, Other chronic pain G89.29 [place] [address] [facility] [id number] [address] [place] [address] Nov, Other chronic pain G89.29 [facility] [address] [facility] [id number] [address] [place] [address] Oct, Other chronic pain G89.29 [facility] [address] [facility] [id number] [address] [place] [address] Sep, Anticoagulant long-term use Z79.01 [place] [address] [facility] [id number] [address] [place] [address] Sep, Chronic prescription opiate use Z79.899 ; Anticoagulant long-term use Z79.01 ; Essential hypertension I10 ; Pure hypercholesterolemia E78.00 ; Factor V Leiden D68.51 ; Venous stasis ulcers, left I83.029 ; Other chronic pain G89.29 and Idiopathic chronic gout of multiple sites without tophus M1A.09X0 [place] [address] [facility] [id number] [address] [place] [address] Aug, Anticoagulant long-term use Z79.01 [place] [address] [facility] [id number] [address] [place] [address] Aug, Other chronic pain G89.29 [place] [address] [facility] [id number] [address] [place] [address] Aug, Essential hypertension I10 a nd Factor V Leiden D68.[id number] [place] [address] [id number] Aug, Acute right ankle pain M25.571 and Tendo nitis of ankle M77.50 [place] [address] [facility] [id number] [address] [place] [address] Aug, [place] [address] [facility] [id number] [address] [place] [address] July, Other chronic pain G89.29 [place] [address] [facility] [id number] [address] [place] [address] Jun, Other chronic pain G89.29 [place] [address] [facility] [id number] [address] [place] [address] Jun, Other chronic pain G89.29 [facility] [address] [id number] [address] [place] [address] Jun, Anticoagulant long-term use Z79.01 [facility] [address] [id number] [address] [place] [address] May, Other chronic pain G89.29 [facility] [address] [facility] [id number] [address] [place] [address] May, Anticoagulant long-term use Z79.01 [facility] [address] [facility] [id number] [address] [place] [address] May, Other chronic pain G89.29 [facility] [address] [facility] [id number] [address] [place] [address] Apr, Anticoagulant long-term use Z79.01 [place] [address] [facility] [id number] [address] [place] [address] Apr, Other chronic pain G89.29 [facility] [address] [facility] [id number] [address] [place] [address] Apr, Anticoagulant long-term use Z79.01 and Pure hypercholesterolemia E78.00 [facility] [address] [facility] [id number] [address] [place] [address] Mar, [facility] [address] [facility] [id number] [address] [place] [address] Mar, Anticoagulant long-term use Z79.01 [facility] [address] [facility] [id number] [address] [place] [address] Mar, Other chronic pain G89.29 [facility] [address] [facility] [id number] [address] [place] [address] Feb, Essential hypertension I10 ; Chronic prescription opiate use Z79.899 ; Other chronic pain G89.29 ; Screening Z13.9 ; Factor V Leiden D68.51 ; Anticoagulant long-term use Z79.01 ; Venous stasis dermatitis of left lower extremity I83.12 and Pure hypercholesterolemia E78.00 [facility] [address] [id number] [address] [place] [address] 14 Jan, 2016 Anticoagulant long-term use Z79.01 [facility] [address] [id number] [address] [place] [address] 10 Jan, 2016 Anticoagulant long-term use Z79.01 [facility] [address] [id number] [address] [place] [address] 09 Jan, 2016 [facility] [address] [id number] [address] [place] [address] Jan, [facility] [address] [facility] [id number] [address] [place] [address] Dec, [facility] [address] [facility] [id number] [address] [place] [address] Nov, [facility] [address] [facility] [id number] [address] [place] [address] Oct, Anticoagulant long-term use Z79.01 [facility] [address] [facility] [id number] [address] [place] [address] Oct, [facility] [address] [facility] [id number] [address] [place] [address] Oct, Anticoagulant long-term use Z79.01 [facility] [address] [facility] [id number] [address] [place] [address] Sep, [facility] [address] [id number] [address] [place] [address] Aug, [facility] [address] [place] [id number] [address] [place] [address] Aug, Chronic prescription opiate use Z79.899 ; Other chronic pain G89.29 ; Essential hypertension I10 and Pure hypercholesterolemia E78.0 [facility] [address] [facility] [id number] [address] [place] [address] July, Hyperlipidemia, group D E78. 3 and Anticoagulant long-term use Z79.01 [facility] [address] [id number] [address] [place] [address] July, Hyperlipidemia, group D E78. 3 ; Essential hypertension I10 and Factor V Leiden D68.51 [facility] [address] [facility] [id number] [address] [place] [address] July, Essential hypertension I10 [facility] [address] [facility] [id number] [address] [place] [phone] Jun, Hyperlipidemia, group D E78. 3 [facility] ([facility] [address] [facility] [id number] [address] [place] [phone] Jun, Factor V Leiden D68.51 [facility] ([facility] [address] [facility] [id number] [address] [place] [phone] May, Factor V Leiden D68.51 ; Hyp erlipidemia, group D E78.3 ; Essential hypertension I10 ; Other chronic pain G89.29 and Anticoagulant long-term use Z79.01 [facility] ([facility] [address] [facility] [id number] [address] [place] [phone] May, Anticoagulant long-term use Z79.01 [facility] ([facility] [address] [facility] [id number] [address] [place] [phone] May, Anticoagulant long-term use Z79.01 [facility] ([facility] [address] [facility] [id number] [address] [place] [phone] May, [facility] ([facility] [address] [facility] [id number] [address] [place] [phone] Apr, [facility] ([facility] [address] [facility] [id number] [address] [place] [phone] Mar, [facility] ([facility] [address] [facility] [id number] [address] [place] [phone] Mar, [facility] ([facility] [address] [facility] [id number] [address] [place] [phone] Feb, Anticoagulant long-term use Z79.01 [facility] ([facility] [address] [facility] [id number] [address] [place] [phone] Feb, Chronic prescription opiate use Z79.899 ; Other chronic pain G89.29 ; Hyperlipidemia, group D E78.3 ; Factor V Leiden D68.51 and Anticoagulant long- term use Z79.01 [facility] ([facility] [address] [facility] [id number] [address] [place] [phone] Feb, [place] [address] [facility] [id number] [address] [place] [phone] Jan, [place] [address] [place] [id number] [place] [phone] Dec, Hyperlipidemia, unspecified E78.5 [place] [address] [place] [id number] [address] [place] [phone] Dec, Cellulitis of left lower ext remity L03.116 ; Venous stasis ulcers, left I83.029 and Factor V Leiden D68.51 [place] [address] [place] [id number] [address] [place] [phone] Dec, Hyperlipidemia 272.4 and Fac tor 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 [place] [address] [facility] [id number] [address] [place] [phone] Dec, [place] [address] [address] [facility] [id number] [address] [place] [phone] Nov, 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 [place] [address] [facility] [id number] [address] [place] [address] Nov, [place] [address] [address] [place] [id number] [address] [place] [address] Nov, [place] [address] [address] [facility] [id number] [address] [place] [address] Nov, [place] [address] [address] [place] [id number] [address] [place] [address] Oct, [facility] [address] [facility] [id number] [address] [place] [address] Oct, Hyperlipidemia 272.4 ; Chron ic pain disorder 338.4 ; Venous stasis ulcer of left lower extremity 454.0 and 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 [facility] ([facility] [address] [facility] [id number] [address] [place] [phone] Sep, [facility] ([facility] [address] [facility] [id number] [address] [place] [phone] Sep, [facility] ([facility] [address] [facility] [id number] [address] [place] [phone] Sep, Hyperlipidemia 272.4 and Fac tor 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 [facility] ([facility] [address] [facility] [id number] [address] [place] [address] Aug, [facility] ([facility] [address] [facility] [id number] [place] [phone] Aug, 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 [facility] ([facility] [address] [facility] [id number] [address] [place] [phone] July, [facility] ([facility] [address] [facility] [id number] [address] [place] [address] July, Essential hypertension, fito gn 401.1 ; 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 ; Chronic pain disorder 338.4 ; Hyperlipidemia 272.4 and Venous stasis ulcer of left lower extremity 454.0 [facility] ([facility] [address] [facility] [id number] [address] [place] [phone] Jun, [facility] ([facility] [address] [facility] [id number] [address] [place] [phone] Jun, [facility] ([facility] [address] [facility] [id number] [address] [place] [phone] May, [facility] ([facility] [address] [facility] [id number] [address] [place] [phone] May, [facility] ([facility] [address] [facility] [id number] [address] [place] [phone] 20 Apr, 2014 [facility] [address] [id number] [address] [place] [address], [place] [address] 20 Apr, 2014 [facility] [address] [id number] [address] [place] [address], [place] [address] 18 Apr, 2014 [facility] [address] [id number] [address] [place] [address], [place] [address] 18 Apr, 2014 [facility] [address] [id number] [address] [place] [address], [place] [address] 13 Apr, 2014 [facility] [address] [id number] [address] [place] [address], [place] [address] 13 Apr, 2014 [facility] [address] [id number] [address] [place] [address], [place] [address] 15 Mar, 2014 [facility] [address] [id number] [address] [place] [address], [place] [address] 15 Mar, 2014 [facility] [address] [id number] [address] [place] [address], [place] [address] Mar, [facility] [address] [id number] [address] [place] [address], [place] [address] Mar, [facility] [address] [id number] [address] [place] [address], [place] [address] 17 Feb, 2014 [facility] [address] [id number] [address] [place] [address], [place] [address] Feb, [facility] [address] [id number] [address] [place] [address], [place] [address] 16 Feb, 2014 [facility] [address] [id number] [address] [place] [address], [place] [address] Feb, [facility] [address] [id number] [address] [place] [address], [place] [address] 24 Jan, 2014 [facility] [address] [id number] [address] [place] [address], [place] [address] Jan, [facility] [address] [id number] [address] [place] [address], [place] [address] Jan, [facility] [address] [id number] [address] [place] [address], [place] [address] Jan, [facility] [address] [id number] [address] [place] [address], [place] [address] Jan, [facility] [address] [id number] [address] [place] [address], [place] [address] Jan, [facility] [address] [id number] [address] [place] [address], [place] [address] Dec, [facility] [address] [id number] [address] [place] [address], [place] [address] Dec, [facility] [address] [id number] [address] [place] [address], [place] [address] Oct, [facility] [address] [id number] [address] [place] [address], [place] [address] Oct, [facility] [address] [id number] [address] [place] [address], [place] [address] Sep, [facility] [address] [id number] [address] [place] [address], [place] [address] Sep, [facility] [address] [id number] [address] [place] [address], [place] [address] Sep, [facility] [address] [id number] [address] [place] [address], [place] [address] Sep, [facility] [address] [id number] [address] [place] [address], [place] [address] Aug, [facility] [address] [id number] [address] [place] [address], [place] [address] Aug, [facility] [address] [id number] [address] [place] [address], [place] [address] July, [facility] [address] [id number] [address] [place] [address], [place] [address] July, [facility] [address] [id number] [address] [place] [address], [place] [address] Jun, [facility] [address] [id number] [address] [place] [address], [place] [address] Jun, [facility] [address] [id number] [address] [place] [address], [place] [address] May, [facility] [address] [id number] [address] [place] [address], [place] [address] May, [facility] [address] [id number] [address] [place] [address], [place] [address] Apr, [facility] [address] [id number] [address] [place] [address], [place] [address] Apr, [facility] [address] [id number] [address] [place] [address], [place] [address] Mar, [facility] [address] [id number] [address] [place] [address], [place] [address] Mar, [facility] [address] [id number] [address] [place] [address], [place] [address] Jan, [facility] [address] [id number] [address] [place] [address], [place] [address] Jan, [facility] [address] [id number] [address] [place] [address], [place] [address] Jan, [facility] [address] [id number] [address] [place] [address], [place] [address] Jan, [facility] [address] [id number] [address] [place] [address], [place] [address] Jan, [facility] [address] [id number] [address] [place] [address], [place] [address] Dec, [facility] [address] [id number] [address] [place] [address], [place] [address] Dec, [facility] [address] [id number] [address] [place] [address], [place] [address] Dec, [facility] [address] [id number] [address] [place] [address], [place] [address] Nov, [facility] [address] [id number] [address] [place] [address], [place] [address] Nov, [facility] [address] [id number] [address] [place] [address], [place] [address] Sep, [facility] [address] [id number] [address] [place] [address], [place] [address] Sep, [facility] [address] [id number] [address] [place] [address], [place] [address] Aug, [facility] [address] [id number] [address] [place] [address], [place] [address] Aug, [facility] [address] [id number] [place] [id number] July, [facility] [address] [id number] [place] [id number] Jun, [facility] [address] [id number] [place] [id number] Apr, [facility] [address] [id number] [place] [id number] Mar, [facility] [address] [id number] [address] [place] [address], [place] [address] Mar, [facility] [address] [id number] [place] [id number] Mar, [facility] [address] [id number] [address] [place] [address], [place] [address] Mar, [facility] [address] [id number] [place] [id number] Feb, [facility] [address] [id number] [address] [place] [address], [place] [address] Feb, [facility] [address] [id number] [place] [id number] Feb, [facility] [address] [id number] [address] [place] [address] Feb, [facility] [address] [id number] [place] [id number] Oct, [facility] [address] [id number] [place] [id number] Oct, [facility] [address] [id number] [place] [id number] July, [facility] [address] [id number] [place] [id number] July, [facility] [address] [id number] [place] [id number] Jun, [facility] [address] [id number] [place] [id number] Jun, [facility] [address] [id number] [place] [id number] Jun, [facility] [address] [id number] [place] [id number] Mar, [facility] [address] [id number] [place] [id number] Mar, [facility] [address] [facility] [id number] [address] [place] [address] Feb, [facility] [address] [facility] [id number] [address] [place] [address] Feb, [facility] [address] [facility] [id number] [address] [place] [address] Jan, [facility] [address] [facility] [id number] [address] [place] [address] Jan, [facility] [address] [facility] [id number] [address] [place] [address] Jan, [facility] [address] [facility] [id number] [address] [place] [id number] Jan, [facility] [address] [facility] [id number] [address] [place] [id number] 11 Jan, 2011 [facility] [address] [facility] [id number] [address] [place] [address] 14 Aug, 2010 [facility] [address] [facility] [id number] [address] [place] [address] 17 Apr, 2010 IMMUNIZATIONS No Known Immunizations [...]
--- OUTSIDE RECORDS SUMMARY | 2019-11-08 13:03 | XMS REPORT ---
Author Author Zana ORTIZ Organization [facility] Address [address] [place] [address] Care Team Providers Care Fill Manager Name Role Phone DIANA AVANI Unavailable PROBLEMS Type Condition ICD9-CM Code XBS63-FA Code Onset Dates Condition S tatus SNOMED Code Problem Factor V Leiden D68.51 Active 3070 56281 Problem Anticoagulant long-term use Z79.01 Ac tive 077948626 Problem Post-phlebitic syndrome I87.009 Active 45816897 Problem 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 65893049 Problem Other chronic pain G89.29 Active 8 6789518 Problem Venous stasis ulcers, left I83.029 Act ozzy 544959305 Problem Essential hypertension I10 Active 25942868 Problem Venous anomaly Q27.9 Active 92852 4003 Problem Congenital single kidney Q60.0 Activ e 71022993 Problem Chronic prescription opiate use Z79.899 Active 280337298 Problem Pure hypercholesterolemia E78.00 Acti ve [id number] ALLERGIES No Information ENCOUNTERS Encounter Location Date Diagnosis [facility] [address] [facility] [id number] [address] [place] [address] Sep, Other chronic pain G89.29 [facility] [address] [facility] [id number] [address] [place] [address] Sep, Anticoagulant long-term use Z79.01 [id number] [place] [address] [id number] Sep, Anticoagulant long-term use Z79.01 [facility] [address] [facility] [id number] [address] [place] [address] Aug, Anticoagulant long-term use Z79.01 [facility] [address] [facility] [id number] [address] [place] [address] Aug, Anticoagulant long-term use Z79.01 [facility] [address] [id number] [address] [place] [address] Aug, Other chronic pain G89.29 [facility] [address] [id number] [address] [place] [address] Aug, Other chronic pain G89.29 ; Anticoagulant long-term use Z79.01 ; Idiopathic chronic gout of multiple sites without tophus M1A.09X0 ; Oral pain K13.79 ; Dental infection K04.7 ; Essential hypertension I10 and Pure hypercholesterolemia E78.00 [facility] [address] [id number] [address] [place] [address] July, Other chronic pain G89.29 [facility] [address] [id number] [address] [place] [address] Jun, Other chronic pain G89.29 [facility] [address] [id number] [address] [place] [address] Jun, [facility] [address] [id number] [address] [place] [address] Jun, [facility] [id number] [place] [id number] Jun, Anticoagulant long-term use Z79.01 and I diopathic chronic gout of multiple sites without tophus M1A.09X0 [facility] [address] [id number] [address] [place] [address] May, Other chronic pain G89.29 [facility] [address] [id number] [address] [place] [address] May, [facility] [address] [id number] [address] [place] [address] May, Anticoagulant long-term use Z79.01 [facility] [address] [facility] [id number] [address] [place] [address] May, [facility] [address] [id number] [id number] May, Anticoagulant long-term use Z79.01 [facility] [address] [facility] [id number] [address] [place] [address] May, Anticoagulant long-term use Z79.01 [facility] [address] [facility] [id number] [address] [place] [address] May, Anticoagulant long-term use Z79.01 [facility] [address] [id number] [id number] May, Factor V Leiden D68.51 [place] [address] [facility] [id number] [address] [place] [address] Apr, Other chronic pain G89.29 [place] [address] [facility] [id number] [address] [place] [address] Apr, Idiopathic chronic gout of m ultiple sites without tophus M1A.09X0 [facility] [address] [id number] [id number] Apr, Anticoagulant long-term use Z79.01 [facility] [address] [facility] [address] [id number][place] [id number] Apr, Anticoagulant long-term use Z79.01 ; Med ication side effect T88.7XXA and Idiopathic chronic gout of multiple sites without tophus M1A.09X0 [place] [address] [facility] [id number] [address] [place] [address] Apr, [place] [address] [facility] [id number] [address] [place] [address] Apr, Anticoagulant long-term use Z79.01 [facility] [address] [facility] [id number] [address] [place] [address] Apr, Medication side effect T88.7 XXA and Factor V Leiden D68.51 [place] [address] [facility] [id number] [address] [place] [address] Apr, Idiopathic chronic gout of m ultiple sites without tophus M1A.09X0 and Anticoagulant long-term use Z79.01 [facility] [address] [facility] [address] [id number] [id number] Mar, Factor V Leiden D68.51 and Anticoagulant long-term use Z79.01 [place] [address] [place] [id number] [address] [place] [address] Mar, Factor V Leiden D68.51 ; Ant icoagulant long-term use Z79.01 ; Idiopathic chronic gout of multiple sites without tophus M1A.09X0 ; Pure hypercholesterolemia E78.00 ; Other chronic pain G89.29 and BMI 40.0-44.9, adult Z68.41 [place] [address] [address] Mar, [place] [address] [address] Mar, Other chronic pain G89.29 [place] [address] [address] Feb, Idiopathic chronic gout of m ultiple sites without tophus M1A.09X0 [address] [id number] [id number] Feb, Anticoagulant long-term use Z79.01 and I diopathic chronic gout of multiple sites without tophus M1A.09X0 [place] [address] [address] Feb, Anticoagulant long-term use Z79.01 and Idiopathic chronic gout of multiple sites without tophus M1A.09X0 [place] [address] [place] [id number] [address] [place] [address] Feb, [place] [address] [address] Feb, Other chronic pain G89.29 [facility] [address] [id number] [address] [place] [address] Jan, Other chronic pain G89.29 [facility] [address] [id number] [address] [place] [address] Dec, Other chronic pain G89.29 [facility] [address] [id number] [address] [place] [address] Dec, Anticoagulant long-term use Z79.01 [facility] [address] [id number] [address] [place] [address] Dec, Chronic prescription opiate use Z79.899 ; Factor V Leiden D68.51 ; Other chronic pain G89.29 and Anticoagulant long-term use Z79.01 [facility] [address] [facility] [id number] [address] [place] [address] Nov, Other chronic pain G89.29 [facility] [address] [id number] [address] [place] [address] Oct, Other chronic pain G89.29 [facility] [address] [id number] [address] [place] [address] Sep, Other chronic pain G89.29 [facility] [address] [id number] [address] [place] [address] Aug, Other chronic pain G89.29 [facility] [address] [id number] [address] [place] [address] Aug, Venous stasis ulcers, left I 83.029 [facility] [address] [id number] [address] [place] [address] July, Other chronic pain G89.29 [facility] [address] [id number] [address] [place] [address] July, Venous stasis ulcers, left I 83.029 and Snoring R06.83 [facility] [address] [id number] [address] [place] [address] Jun, Idiopathic chronic gout of m ultiple sites without tophus M1A.09X0 [place] [address] [facility] [id number] [address] [place] [address] Jun, Acute renal insufficiency N2 8.9 [place] [address] [facility] [id number] [address] [place] [address] Jun, Other chronic pain G89.29 [place] [address] [facility] [id number] [address] [place] [address] Jun, Acute renal insufficiency N2 8.[id number] [place] [address] [id number] Jun, Idiopathic chronic gout of multiple site s without tophus M1A.09X0 ; Essential hypertension I10 and Anticoagulant long-term use Z79.01 [place] [address] [place] [id number] [address] [place] [address] Jun, Anticoagulant long-term use Z79.01 and Essential hypertension I10 [place] [address] [facility] [id number] [address] [place] [address] May, Idiopathic chronic gout of m ultiple sites without tophus M1A.09X0 [place] [address] [place] [id number] [address] [place] [address] May, [place] [address] [place] [id number] [address] [place] [address] May, Essential hypertension I10 ; Pure hypercholesterolemia E78.00 ; Anticoagulant long-term use Z79.01 and Idiopathic chronic gout of multiple sites without tophus M1A.09X0 [place] [address] [facility] [id number] [address] [place] [address] May, Other chronic pain G89.29 [place] [address] [facility] [id number] [address] [place] [address] May, Anticoagulant long-term use Z79.01 [place] [address] [facility] [id number] [address] [place] [address] May, Chronic prescription opiate use Z79.899 ; Other chronic pain G89.29 ; Essential hypertension I10 ; Factor V Leiden D68.51 ; Anticoagulant long-term use Z79.01 ; Pure hypercholesterolemia E78.00 ; Venous stasis ulcers, left I83.029 ; Idiopathic chronic gout of multiple sites without tophus M1A.09X0 and Cellulitis of left lower extremity L03.116 [facility] [address] [facility] [id number] [address] [place] [address] Apr, Other chronic pain G89.29 [place] [address] [facility] [id number] [address] [place] [address] Mar, Other chronic pain G89.29 [place] [address] [facility] [id number] [address] [place] [address] Mar, Factor V Leiden D68.51 ; Pur e hypercholesterolemia E78.00 and Other chronic pain G89.29 [place] [address] [facility] [id number] [address] [place] [address] Feb, Other chronic pain G89.29 [place] [address] [facility] [id number] [address] [place] [address] Jan, Idiopathic chronic gout of m ultiple sites without tophus M1A.09X0 [place] [address] [facility] [id number] [address] [place] [address] Jan, Other chronic pain G89.29 [place] [address] [facility] [id number] [address] [place] [address] Dec, Anticoagulant long-term use Z79.01 ; Factor V Leiden D68.51 and Other chronic pain G89.29 [place] [address] [facility] [id number] [address] [place] [address] Dec, Other chronic pain G89.29 [place] [address] [facility] [id number] [address] [place] [address] Nov, Other chronic pain G89.29 [facility] [address] [facility] [id number] [address] [place] [address] Oct, Other chronic pain G89.29 [facility] [address] [facility] [id number] [address] [place] [address] Sep, Anticoagulant long-term use Z79.01 [facility] [address] [facility] [id number] [address] [place] [address] Sep, Chronic prescription opiate use Z79.899 ; Anticoagulant long-term use Z79.01 ; Essential hypertension I10 ; Pure hypercholesterolemia E78.00 ; Factor V Leiden D68.51 ; Venous stasis ulcers, left I83.029 ; Other chronic pain G89.29 and Idiopathic chronic gout of multiple sites without tophus M1A.09X0 [place] [address] [facility] [id number] [address] [place] [address] Aug, Anticoagulant long-term use Z79.01 [facility] [address] [facility] [id number] [address] [place] [address] Aug, Other chronic pain G89.29 [place] [address] [facility] [id number] [address] [place] [address] Aug, Essential hypertension I10 a nd Factor V Leiden D68.[id number] [place] [address] [id number] Aug, Acute right ankle pain M25.571 and Tendo nitis of ankle M77.50 [place] [address] [facility] [id number] [address] [place] [address] Aug, [place] [address] [facility] [id number] [address] [place] [address] July, Other chronic pain G89.29 [place] [address] [facility] [id number] [address] [place] [address] Jun, Other chronic pain G89.29 [place] [address] [facility] [id number] [address] [place] [address] Jun, Other chronic pain G89.29 [facility] [address] [facility] [id number] [address] [place] [address] Jun, Anticoagulant long-term use Z79.01 [facility] [address] [facility] [id number] [address] [place] [address] May, Other chronic pain G89.29 [facility] [address] [facility] [id number] [address] [place] [address] May, Anticoagulant long-term use Z79.01 [facility] [address] [facility] [id number] [address] [place] [address] May, Other chronic pain G89.29 [facility] [address] [facility] [id number] [address] [place] [address] Apr, Anticoagulant long-term use Z79.01 [facility] [address] [place] [id number] [address] [place] [address] Apr, Other chronic pain G89.29 [facility] [address] [facility] [id number] [address] [place] [address] Apr, Anticoagulant long-term use Z79.01 and Pure hypercholesterolemia E78.00 [facility] [address] [facility] [id number] [address] [place] [address] Mar, [facility] [address] [facility] [id number] [address] [place] [address] Mar, Anticoagulant long-term use Z79.01 [facility] [address] [facility] [id number] [address] [place] [address] Mar, Other chronic pain G89.29 [facility] [address] [facility] [id number] [address] [place], [place] [id number] Feb, Essential hypertension I10 ; Chronic prescription opiate use Z79.899 ; Other chronic pain G89.29 ; Screening Z13.9 ; Factor V Leiden D68.51 ; Anticoagulant long-term use Z79.01 ; Venous stasis dermatitis of left lower extremity I83.12 and Pure hypercholesterolemia E78.00 [facility] [address] [address] 14 Jan, 2016 Anticoagulant long-term use Z79.01 [facility] [address] [facility] [id number] [address] [place] [address] 10 Jan, 2016 Anticoagulant long-term use Z79.01 [facility] [address] [facility] [id number] [address] [place] [address] 09 Jan, 2016 [facility] [address] [facility] [id number] [place] [address] Jan, [facility] [address] [address] Dec, [facility] [address] [address] Nov, [facility] [address] [address] Oct, Anticoagulant long-term use Z79.01 [facility] [address] [address] Oct, [facility] [address] [address] Oct, Anticoagulant long-term use Z79.01 [facility] [address] [place] [id number] [address] [place] [address] Sep, [facility] [address] [place] [id number] [address] [place] [address] Aug, [facility] [address] [address] Aug, Chronic prescription opiate use Z79.899 ; Other chronic pain G89.29 ; Essential hypertension I10 and Pure hypercholesterolemia E78.0 [facility] [address] [address] July, Hyperlipidemia, group D E78. 3 and Anticoagulant long-term use Z79.01 [facility] [address] [facility] [id number] [address] [place] [address] July, Hyperlipidemia, group D E78. 3 ; Essential hypertension I10 and Factor V Leiden D68.51 [facility] [address] [facility] [id number] [address] [place] [address] July, Essential hypertension I10 [facility] [address] [facility] [id number] [address] [place] [address] Jun, Hyperlipidemia, group D E78. 3 [place] [address] [facility] [id number] [address] [place] [address] Jun, Factor V Leiden D68.51 [place] [address] [place] [id number] [address] [place] [address] May, Factor V Leiden D68.51 ; Hyp erlipidemia, group D E78.3 ; Essential hypertension I10 ; Other chronic pain G89.29 and Anticoagulant long-term use Z79.01 [place] [address] [facility] [id number] [address] [place] [address] May, Anticoagulant long-term use Z79.01 [place] [address] [facility] [id number] [address] [place] [address] May, Anticoagulant long-term use Z79.01 [facility] [address] [facility] [id number] [address] [place] [address] May, [facility] [address] [facility] [id number] [address] [place] [address] Apr, [facility] [address] [facility] [id number] [address] [place] [address] Mar, [facility] [address] [facility] [id number] [address] [place] [address] Mar, [facility] [address] [facility] [id number] [address] [place] [address] Feb, Anticoagulant long-term use Z79.01 [facility] [address] [facility] [id number] [address] [place] [address] Feb, Chronic prescription opiate use Z79.899 ; Other chronic pain G89.29 ; Hyperlipidemia, group D E78.3 ; Factor V Leiden D68.51 and Anticoagulant long- term use Z79.01 [facility] [address] [place] [id number] [address] [place] [address] Feb, [facility] [address] [place] [id number] [address] [place] [address] Jan, [place] [address] [address] Dec, Hyperlipidemia, unspecified E78.5 [place] [address] [address] Dec, Cellulitis of left lower ext remity L03.116 ; Venous stasis ulcers, left I83.029 and Factor V Leiden D68.51 [place] [address] [address] Dec, Hyperlipidemia 272.4 and Fac tor 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 [place] [address] [place] [id number] [address] [place] [address] Dec, [facility] [address] [place] [id number] [address] [place] [address] Nov, 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 [place] [address] [place] [id number] [address] [place] [address] Nov, [place] [address] [place] [id number] [place] [id number] Nov, [facility] [address] [place] [id number] [address] [place] [id number] Nov, [facility] [address] [id number] Oct, [facility] [address] [facility] [id number] [address] [place] [id number] Oct, Hyperlipidemia 272.4 ; Chron ic pain disorder 338.4 ; Venous stasis ulcer of left lower extremity 454.0 and 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 [facility] [address] [facility] [id number] [address] [place] [id number] Sep, [facility] [address] [facility] [id number] [address] [place] [id number] Sep, [facility] [address] [facility] [id number] [address] [place] [id number] Sep, Hyperlipidemia 272.4 and Fac tor 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 [facility] [address] [facility] [id number] [address] [place] [id number] Aug, [facility] [address] [facility] [id number] [address] [place] [id number] Aug, 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 [facility] [address] [facility] [id number] [address] [place] [id number] July, [facility] [address] [facility] [id number] [address] [place] [id number] July, Essential hypertension, fito gn 401.1 ; 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 ; Chronic pain disorder 338.4 ; Hyperlipidemia 272.4 and Venous stasis ulcer of left lower extremity 454.0 [facility] [address] [facility] [id number] [address] [place] [id number] Jun, [facility] [address] [facility] [id number] [address] [place] [id number] Jun, [facility] [address] [facility] [id number] [address] [place] [id number] May, [facility] [address] [facility] [id number] [address] [place] [id number] May, [facility] [address] [id number] [address] [place] [address], [place] [id number] 20 Apr, 2014 [facility] [address] [id number] [address] [place] [address], [place] [id number] 20 Apr, 2014 [facility] [address] [id number] [address] [place] [address], [place] [id number] 18 Apr, 2014 [facility] [address] [id number] [address] [place] [address], [place] [id number] 18 Apr, 2014 [facility] [address] [id number] [address] [place] [address], [place] [id number] 13 Apr, 2014 [facility] [address] [id number] [address] [place] [address], [place] [id number] 13 Apr, 2014 [facility] [address] [id number] [address] [place] [address], [place] [id number] 15 Mar, 2014 [facility] [address] [id number] [address] [place] [address], [place] [address] 15 Mar, 2014 [facility] [address] [id number] [address] [place] [address], [place] [address] Mar, [facility] [address] [id number] [address] [place] [address], [place] [address] Mar, [facility] [address] [id number] [address] [place] [address], [place] [address] 17 Feb, 2014 [facility] [address] [id number] [address] [place] [address], [place] [address] 17 Feb, 2014 [facility] [address] [id number] [address] [place] [address], [place] [address] 16 Feb, 2014 [facility] [address] [id number] [address] [place] [address], [place] [address] 16 Feb, 2014 [facility] [address] [id number] [address] [place] [address], [place] [address] 24 Jan, 2014 [facility] [address] [id number] [address] [place] [address], [place] [address] Jan, [facility] [address] [id number] [address] [place] [address], [place] [address] Jan, [facility] [address] [id number] [address] [place] [address], [place] [address] Jan, [facility] [address] [id number] [address] [place] [address], [place] [address] Jan, [facility] [address] [id number] [address] [place] [address], [place] [address] Jan, [facility] [address] [id number] [address] [place] [address], [place] [address] Dec, [facility] [address] [id number] [address] [place] [address], [place] [address] Dec, [facility] [address] [id number] [address] [place] [address], [place] [address] Oct, [facility] [address] [id number] [address] [place] [address], [place] [address] Oct, [facility] [address] [id number] [address] [place] [address], [place] [address] Sep, [facility] [address] [id number] [address] [place] [address], [place] [address] Sep, [facility] [address] [id number] [address] [place] [address], [place] [address] Sep, [facility] [address] [id number] [address] [place] [address], [place] [address] Sep, [facility] [address] [id number] [address] [place] [address], [place] [address] Aug, [facility] [address] [id number] [address] [place] [address], [place] [address] Aug, [facility] [address] [id number] [address] [place] [address], [place] [address] July, [facility] [address] [id number] [address] [place] [address], [place] [address] July, [facility] [address] [id number] [address] [place] [address], [place] [address] Jun, [facility] [address] [id number] [address] [place] [address], [place] [address] Jun, [facility] [address] [id number] [address] [place] [address], [place] [address] May, [facility] [address] [id number] [address] [place] [address], [place] [address] May, [facility] [address] [id number] [address] [place] [address], [place] [address] Apr, [facility] [address] [id number] [address] [place] [address], [place] [address] Apr, [facility] [address] [id number] [address] [place] [address], [place] [address] Mar, [facility] [address] [id number] [address] [place] [address], [place] [address] Mar, [facility] [address] [id number] [address] [place] [address], [place] [address] Jan, [facility] [address] [id number] [address] [place] [address], [place] [address] Jan, [facility] [address] [id number] [address] [place] [address], [place] [address] Jan, [facility] [address] [id number] [address] [place] [address], [place] [address] Jan, [facility] [address] [id number] [address] [place] [address], [place] [address] Jan, [facility] [address] [id number] [address] [place] [address], [place] [address] Dec, [facility] [address] [id number] [address] [place] [address], [place] [address] Dec, [facility] [address] [id number] [address] [place] [address], [place] [address] Dec, [facility] [address] [id number] [address] [place] [address], [place] [address] Nov, [facility] [address] [id number] [address] [place] [address], [place] [address] Nov, [facility] [address] [id number] [address] [place] [address], [place] [address] Sep, [facility] [address] [id number] [address] [place] [address], [place] [address] Sep, [facility] [address] [id number] [address] [place] [address], [place] [address] Aug, [facility] [address] [id number] [address] [place] [address], [place] [address] Aug, [facility] [address] [id number] [place] [id number] July, [facility] [address] [id number] [place] [id number] Jun, [facility] [place] [address] [id number] [place] [id number] Apr, [facility] [place] [address] [id number] [place] [id number] Mar, [facility] [address] [id number] [address] [place] [address], [place] [address] Mar, [facility] [address] [id number] [place] [id number] Mar, [facility] [address] [id number] [address] [place] [address] Mar, [facility] [place] [address] [id number] [place] [id number] Feb, [facility] [address] [id number] [address] [place] [address], [place] [address] Feb, [facility] [place] [address] [id number] [place] [id number] Feb, [facility] [address] [facility] [id number] [address] [place] [address] Feb, [facility] [place] [address] [id number] [place] [id number] Oct, [facility] [place] [address] [id number] [place] [id number] Oct, [facility] [place] [address] [id number] [place] [id number] July, [facility] [place] [address] [id number] [place] [id number] July, [facility] [place] [address] [id number] [place] [id number] Jun, [facility] [place] [address] [id number] [place] [id number] Jun, [facility] [place] [address] [id number] [place] [id number] Jun, [facility] [place] [address] [id number] [place] [id number] Mar, [facility] [place] [address] [id number] [place] [id number] Mar, [facility] [address] [facility] [id number] [address] [place] [address] Feb, [facility] [address] [facility] [id number] [address] [place] [address] Feb, [facility] [address] [facility] [id number] [address] [place] [address] Jan, [facility] [address] [facility] [id number] [address] [place] [address] Jan, [facility] [address] [facility] [id number] [address] [place] [address] Jan, [facility] [address] [facility] [id number] [address] [place] [address] Jan, [facility] [address] [facility] [id number] [address] [address] 11 Jan, 2011 [facility] [address] [facility] [id number] [address] [place] [address] 14 Aug, 2010 [facility] [address] [facility] [id number] [address] [address] 17 Apr, 2010 IMMUNIZATIONS No Known Immunizations [...]
--- OUTSIDE RECORDS SUMMARY | 2019-11-08 13:03 | XMS REPORT ---
Author Author Zana ORTIZ Organization [facility] Address [address] [place] [address] Care Team Providers Care Quality Assurance Coach Name Role Phone DIANA AVANI Unavailable PROBLEMS Type Condition ICD9-CM Code DFS59-KH Code Onset Dates Condition S tatus SNOMED Code Problem Factor V Leiden D68.51 Active 3070 17263 Problem Anticoagulant long-term use Z79.01 Ac tive 161866681 Problem Post-phlebitic syndrome I87.009 Active 78806688 Problem 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 39526418 Problem Other chronic pain G89.29 Active 8 0375906 Problem Venous stasis ulcers, left I83.029 Act ozzy 543710478 Problem Essential hypertension I10 Active 11541019 Problem Venous anomaly Q27.9 Active 54537 4003 Problem Congenital single kidney Q60.0 Activ e 46963154 Problem Chronic prescription opiate use Z79.899 Active 411548691 Problem Pure hypercholesterolemia E78.00 Acti ve [id number] ALLERGIES No Information ENCOUNTERS Encounter Location Date Diagnosis [facility] [address] [facility] [id number] [address] [place] [id number] Sep, Other chronic pain G89.29 [facility] [address] [facility] [id number] [address] [place] [phone] Sep, Anticoagulant long-term use Z79.01 [id number] [place] [id number] Sep, Anticoagulant long-term use Z79.01 [facility] [address] [facility] [id number] [address] [place] [phone] Aug, Anticoagulant long-term use Z79.01 [facility] [address] [facility] [id number] [address] [place] [phone] Aug, Anticoagulant long-term use Z79.01 [facility] [address] [id number] [address] [place] [id number] Aug, Other chronic pain G89.29 [facility] [address] [id number] [address] [place] [address] Aug, Other chronic pain G89.29 ; Anticoagulant long-term use Z79.01 ; Idiopathic chronic gout of multiple sites without tophus M1A.09X0 ; Oral pain K13.79 ; Dental infection K04.7 ; Essential hypertension I10 and Pure hypercholesterolemia E78.00 [facility] [address] [id number] [address] [place] [address] July, Other chronic pain G89.29 [facility] [address] [id number] [address] [place] [id number] Jun, Other chronic pain G89.29 [facility] [address] [id number] [address] [place] [phone] Jun, [facility] [address] [id number] [address] [place] [phone] Jun, [facility] [id number] [place] [address] [id number] Jun, Anticoagulant long-term use Z79.01 and I diopathic chronic gout of multiple sites without tophus M1A.09X0 [facility] [address] [id number] [address] [place] [id number] May, Other chronic pain G89.29 [facility] [address] [id number] [address] [place] [phone] May, [facility] [address] [id number] [address] [place] [phone] May, Anticoagulant long-term use Z79.01 [facility] [address] [facility] [id number] [address] [place] [phone] May, [facility] [address] [id number] [id number] May, Anticoagulant long-term use Z79.01 [facility] [address] [facility] [id number] [address] [place] [phone] May, Anticoagulant long-term use Z79.01 [facility] [address] [facility] [id number] [address] [place] [address] May, Anticoagulant long-term use Z79.01 [facility] [address] [id number] [id number] May, Factor V Leiden D68.51 [place] [address] [facility] [id number] [address] [place] [phone] Apr, Other chronic pain G89.29 [place] [address] [facility] [id number] [address] [place] [id number] Apr, Idiopathic chronic gout of m ultiple sites without tophus M1A.09X0 [facility] [address] [id number] [id number] Apr, Anticoagulant long-term use Z79.01 [facility] [address] [facility] [address] [id number] [id number] Apr, Anticoagulant long-term use Z79.01 ; Med ication side effect T88.7XXA and Idiopathic chronic gout of multiple sites without tophus M1A.09X0 [place] [address] [facility] [id number] [address] [place] [phone] Apr, [place] [address] [facility] [id number] [address] [place] [id number] Apr, Anticoagulant long-term use Z79.01 [facility] [address] [facility] [id number] [address] [place] [address] Apr, Medication side effect T88.7 XXA and Factor V Leiden D68.51 [place] [address] [facility] [id number] [address] [place] [phone] Apr, Idiopathic chronic gout of m ultiple sites without tophus M1A.09X0 and Anticoagulant long-term use Z79.01 [facility] [address] [facility] [address] [id number][place] [id number] Mar, Factor V Leiden D68.51 and Anticoagulant long-term use Z79.01 [place] [address] [place] [id number] [address] [place] [address] Mar, Factor V Leiden D68.51 ; Ant icoagulant long-term use Z79.01 ; Idiopathic chronic gout of multiple sites without tophus M1A.09X0 ; Pure hypercholesterolemia E78.00 ; Other chronic pain G89.29 and BMI 40.0-44.9, adult Z68.41 [place] [address] [address] Mar, [place] [address] [address] Mar, Other chronic pain G89.29 [place] [address] [address] Feb, Idiopathic chronic gout of m ultiple sites without tophus M1A.09X0 [address] [id number] [id number] Feb, Anticoagulant long-term use Z79.01 and I diopathic chronic gout of multiple sites without tophus M1A.09X0 [place] [address] [address] Feb, Anticoagulant long-term use Z79.01 and Idiopathic chronic gout of multiple sites without tophus M1A.09X0 [place] [address] [place] [id number] [address] [place] [address] Feb, [place] [address] [address] Feb, Other chronic pain G89.29 [facility] [address] [id number] [address] [place] [phone] Jan, Other chronic pain G89.29 [facility] [address] [id number] [address] [place] [phone] Dec, Other chronic pain G89.29 [facility] [address] [id number] [address] [place] [address] Dec, Anticoagulant long-term use Z79.01 [facility] [address] [id number] [address] [place] [address] Dec, Chronic prescription opiate use Z79.899 ; Factor V Leiden D68.51 ; Other chronic pain G89.29 and Anticoagulant long-term use Z79.01 [facility] [address] [facility] [id number] [address] [place] [id number] Nov, Other chronic pain G89.29 [facility] [address] [id number] [address] [place] [address] Oct, Other chronic pain G89.29 [facility] [address] [id number] [address] [place] [phone] Sep, Other chronic pain G89.29 [facility] [address] [id number] [address] [place] [address] Aug, Other chronic pain G89.29 [facility] [address] [id number] [address] [place] [address] Aug, Venous stasis ulcers, left I 83.029 [facility] [address] [id number] [address] [place] [address] July, Other chronic pain G89.29 [facility] [address] [id number] [address] [place] [address] July, Venous stasis ulcers, left I 83.029 and Snoring R06.83 [facility] [address] [id number] [address] [place] [id number] Jun, Idiopathic chronic gout of m ultiple sites without tophus M1A.09X0 [place] [address] [facility] [id number] [address] [place] [address] Jun, Acute renal insufficiency N2 8.9 [place] [address] [facility] [id number] [address] [place] [id number] Jun, Other chronic pain G89.29 [place] [address] [facility] [id number] [address] [place] [address] Jun, Acute renal insufficiency N2 8.[id number] [place] [id number] Jun, Idiopathic chronic gout of multiple site s without tophus M1A.09X0 ; Essential hypertension I10 and Anticoagulant long-term use Z79.01 [place] [address] [place] [id number] [address] [place] [address] Jun, Anticoagulant long-term use Z79.01 and Essential hypertension I10 [place] [address] [facility] [id number] [address] [place] [address] May, Idiopathic chronic gout of m ultiple sites without tophus M1A.09X0 [place] [address] [place] [id number] [address] [place] [address] May, [place] [address] [place] [id number] [address] [place] [address] May, Essential hypertension I10 ; Pure hypercholesterolemia E78.00 ; Anticoagulant long-term use Z79.01 and Idiopathic chronic gout of multiple sites without tophus M1A.09X0 [place] [address] [facility] [id number] [address] [place] [address] May, Other chronic pain G89.29 [place] [address] [facility] [id number] [address] [place] [address] May, Anticoagulant long-term use Z79.01 [place] [address] [facility] [id number] [address] [place] [address] May, Chronic prescription opiate use Z79.899 ; Other chronic pain G89.29 ; Essential hypertension I10 ; Factor V Leiden D68.51 ; Anticoagulant long-term use Z79.01 ; Pure hypercholesterolemia E78.00 ; Venous stasis ulcers, left I83.029 ; Idiopathic chronic gout of multiple sites without tophus M1A.09X0 and Cellulitis of left lower extremity L03.116 [facility] [address] [facility] [id number] [address] [place] [address] Apr, Other chronic pain G89.29 [place] [address] [facility] [id number] [address] [place] [id number] Mar, Other chronic pain G89.29 [place] [address] [facility] [id number] [address] [place] [id number] Mar, Factor V Leiden D68.51 ; Pur e hypercholesterolemia E78.00 and Other chronic pain G89.29 [place] [address] [facility] [id number] [address] [place] [id number] Feb, Other chronic pain G89.29 [place] [address] [facility] [id number] [address] [place] [id number] Jan, Idiopathic chronic gout of m ultiple sites without tophus M1A.09X0 [place] [address] [facility] [id number] [address] [place] [address] Jan, Other chronic pain G89.29 [place] [address] [facility] [id number] [address] [place] [address] Dec, Anticoagulant long-term use Z79.01 ; Factor V Leiden D68.51 and Other chronic pain G89.29 [place] [address] [facility] [id number] [address] [place] [address] Dec, Other chronic pain G89.29 [place] [address] [facility] [id number] [address] [place] [address] Nov, Other chronic pain G89.29 [facility] [address] [facility] [id number] [address] [place] [address] Oct, Other chronic pain G89.29 [facility] [address] [facility] [id number] [address] [place] [address] Sep, Anticoagulant long-term use Z79.01 [facility] [address] [facility] [id number] [address] [place] [address] Sep, Chronic prescription opiate use Z79.899 ; Anticoagulant long-term use Z79.01 ; Essential hypertension I10 ; Pure hypercholesterolemia E78.00 ; Factor V Leiden D68.51 ; Venous stasis ulcers, left I83.029 ; Other chronic pain G89.29 and Idiopathic chronic gout of multiple sites without tophus M1A.09X0 [place] [address] [facility] [id number] [address] [place] [address] Aug, Anticoagulant long-term use Z79.01 [facility] [address] [facility] [id number] [address] [place] [id number] Aug, Other chronic pain G89.29 [place] [address] [facility] [id number] [address] [place] [address] Aug, Essential hypertension I10 a nd Factor V Leiden D68.[id number] [place] [address] [id number] Aug, Acute right ankle pain M25.571 and Tendo nitis of ankle M77.50 [place] [address] [facility] [id number] [address] [place] [address] Aug, [place] [address] [facility] [id number] [address] [place] [address] July, Other chronic pain G89.29 [place] [address] [facility] [id number] [address] [place] [address] Jun, Other chronic pain G89.29 [place] [address] [facility] [id number] [address] [place] [address] Jun, Other chronic pain G89.29 [facility] [address] [facility] [id number] [address] [place] [address] Jun, Anticoagulant long-term use Z79.01 [facility] [address] [facility] [id number] [address] [place] [address] May, Other chronic pain G89.29 [facility] [address] [facility] [id number] [address] [place] [address] May, Anticoagulant long-term use Z79.01 [facility] [address] [facility] [id number] [address] [place] [address] May, Other chronic pain G89.29 [facility] [address] [facility] [id number] [address] [place] [address] Apr, Anticoagulant long-term use Z79.01 [facility] [address] [place] [id number] [address] [place] [address] Apr, Other chronic pain G89.29 [facility] [address] [facility] [id number] [address] [place] [address] Apr, Anticoagulant long-term use Z79.01 and Pure hypercholesterolemia E78.00 [facility] [address] [facility] [id number] [address] [place] [address] Mar, [facility] [address] [facility] [id number] [address] [place] [address] Mar, Anticoagulant long-term use Z79.01 [facility] [address] [facility] [id number] [address] [place] [address] Mar, Other chronic pain G89.29 [facility] [address] [facility] [id number] [address] [place], [place] [id number] Feb, Essential hypertension I10 ; Chronic prescription opiate use Z79.899 ; Other chronic pain G89.29 ; Screening Z13.9 ; Factor V Leiden D68.51 ; Anticoagulant long-term use Z79.01 ; Venous stasis dermatitis of left lower extremity I83.12 and Pure hypercholesterolemia E78.00 [facility] [address] [address] 14 Jan, 2016 Anticoagulant long-term use Z79.01 [facility] [address] [facility] [id number] [address] [place] [address] 10 Jan, 2016 Anticoagulant long-term use Z79.01 [facility] [address] [facility] [id number] [address] [place] [id number] 09 Jan, 2016 [facility] [address] [facility] [id number] [place] [address] Jan, [facility] [address] [address] Dec, [facility] [address] [address] Nov, [facility] [address] [address] Oct, Anticoagulant long-term use Z79.01 [facility] [address] [address] Oct, [facility] [address] [address] Oct, Anticoagulant long-term use Z79.01 [facility] [address] [place] [id number] [address] [place] [address] Sep, [facility] [address] [place] [id number] [address] [place] [address] Aug, [facility] [address] [address] Aug, Chronic prescription opiate use Z79.899 ; Other chronic pain G89.29 ; Essential hypertension I10 and Pure hypercholesterolemia E78.0 [facility] [address] [address] July, Hyperlipidemia, group D E78. 3 and Anticoagulant long-term use Z79.01 [facility] [address] [facility] [id number] [address] [place] [address] July, Hyperlipidemia, group D E78. 3 ; Essential hypertension I10 and Factor V Leiden D68.51 [facility] [address] [facility] [id number] [address] [place] [address] July, Essential hypertension I10 [facility] [address] [facility] [id number] [address] [place] [address] Jun, Hyperlipidemia, group D E78. 3 [place] [address] [facility] [id number] [address] [place] [id number] Jun, Factor V Leiden D68.51 [place] [address] [place] [id number] [address] [place] [address] May, Factor V Leiden D68.51 ; Hyp erlipidemia, group D E78.3 ; Essential hypertension I10 ; Other chronic pain G89.29 and Anticoagulant long-term use Z79.01 [place] [address] [facility] [id number] [address] [place] [address] May, Anticoagulant long-term use Z79.01 [place] [address] [facility] [id number] [address] [place] [address] May, Anticoagulant long-term use Z79.01 [facility] [address] [facility] [id number] [address] [place] [address] May, [facility] [address] [facility] [id number] [address] [place] [phone] Apr, [facility] [address] [facility] [id number] [address] [place] [address] Mar, [facility] [address] [facility] [id number] [address] [place] [address] Mar, [facility] [address] [facility] [id number] [address] [place] [address] Feb, Anticoagulant long-term use Z79.01 [facility] [address] [facility] [id number] [address] [place] [address] Feb, Chronic prescription opiate use Z79.899 ; Other chronic pain G89.29 ; Hyperlipidemia, group D E78.3 ; Factor V Leiden D68.51 and Anticoagulant long- term use Z79.01 [facility] [address] [place] [id number] [address] [place] [address] Feb, [facility] [address] [place] [id number] [address] [place] [address] Jan, [place] [address] [address] Dec, Hyperlipidemia, unspecified E78.5 [place] [address] [address] Dec, Cellulitis of left lower ext remity L03.116 ; Venous stasis ulcers, left I83.029 and Factor V Leiden D68.51 [place] [address] [address] Dec, Hyperlipidemia 272.4 [address] Fac tor 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 [place] [address] [place] [id number] [address] [place] [address] Dec, [facility] [address] [place] [id number] [address] [place] [address] Nov, 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 [place] [address] [place] [id number] [address] [place] [address] Nov, [place] [address] [place] [id number] [place] [address] Nov, [facility] [address] [place] [id number] [address] [place] [id number] Nov, [facility] [address] [id number] Oct, [facility] [address] [facility] [id number] [address] [place] [id number] Oct, Hyperlipidemia 272.4 ; Chron ic pain disorder 338.4 ; Venous stasis ulcer of left lower extremity 454.0 and 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 [facility] [address] [facility] [id number] [address] [place] [id number] Sep, [facility] [address] [facility] [id number] [address] [place] [phone] Sep, [facility] [address] [facility] [id number] [address] [place] [phone] Sep, Hyperlipidemia 272.4 and Fac tor 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 [facility] [address] [facility] [id number] [address] [place] [phone] Aug, [facility] [address] [facility] [id number] [address] [place] [phone] Aug, 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 [facility] [address] [facility] [id number] [address] [place] [phone] July, [facility] [address] [facility] [id number] [address] [place] [phone] July, Essential hypertension, fito gn 401.1 ; 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 ; Chronic pain disorder 338.4 ; Hyperlipidemia 272.4 and Venous stasis ulcer of left lower extremity 454.0 [facility] [address] [facility] [id number] [address] [place] [id number] Jun, [facility] [address] [facility] [id number] [address] [place] [phone] Jun, [facility] [address] [facility] [id number] [address] [place] [phone] May, [facility] [address] [facility] [id number] [address] [place] [phone] May, [facility] [address] [id number] [address] [place] [address], [place] [id number] 20 Apr, 2014 [facility] [address] [id number] [address] [place] [address], [place] [phone] 20 Apr, 2014 [facility] [address] [id number] [address] [place] [address], [place] [phone] 18 Apr, 2014 [facility] [address] [id number] [address] [place] [address], [place] [phone] 18 Apr, 2014 [facility] [address] [id number] [address] [place] [address], [place] [phone] 13 Apr, 2014 [facility] [address] [id number] [address] [place] [address], [place] [phone] 13 Apr, 2014 [facility] [address] [id number] [address] [place] [address], [place] [phone] 15 Mar, 2014 [facility] [address] [id number] [address] [place] [address], [place] [phone] 15 Mar, 2014 [facility] [address] [id number] [address] [place] [address], [place] [phone] Mar, [facility] [address] [id number] [address] [place] [address], [place] [id number] Mar, [facility] [facility] [address] [id number] [address] [place] [address], [place] [address] 17 Feb, 2014 [facility] [address] [id number] [address] [place] [address], [place] [address] 17 Feb, 2014 [facility] [address] [id number] [address] [place] [address], [place] [address] 16 Feb, 2014 [facility] [address] [id number] [address] [place] [address], [place] [address] 16 Feb, 2014 [facility] [address] [id number] [address] [place] [address], [place] [address] 24 Jan, 2014 [facility] [address] [id number] [address] [place] [address], [place] [address] Jan, [facility] [address] [id number] [address] [place] [address], [place] [address] Jan, [facility] [address] [id number] [address] [place] [address], [place] [address] Jan, [facility] [address] [id number] [address] [place] [address], [place] [address] Jan, [facility] [address] [id number] [address] [place] [address], [place] [address] Jan, [facility] [address] [id number] [address] [place] [address], [place] [address] Dec, [facility] [address] [id number] [address] [place] [address], [place] [address] Dec, [facility] [address] [id number] [address] [place] [address], [place] [address] Oct, [facility] [address] [id number] [address] [place] [address], [place] [address] Oct, [facility] [address] [id number] [address] [place] [address], [place] [address] Sep, [facility] [address] [id number] [address] [place] [address], [place] [address] Sep, [facility] [address] [id number] [address] [place] [address], [place] [address] Sep, [facility] [address] [id number] [address] [place] [address], [place] [address] Sep, [facility] [address] [id number] [address] [place] [address], [place] [address] Aug, [facility] [address] [id number] [address] [place] [address], [place] [address] Aug, [facility] [address] [id number] [address] [place] [address], [place] [address] July, [facility] [address] [id number] [address] [place] [address], [place] [address] July, [facility] [address] [id number] [address] [place] [address], [place] [address] Jun, [facility] [address] [id number] [address] [place] [address], [place] [address] Jun, [facility] [address] [id number] [address] [place] [address], [place] [address] May, [facility] [address] [id number] [address] [place] [address], [place] [address] May, [facility] [address] [id number] [address] [place] [address], [place] [address] Apr, [facility] [address] [id number] [address] [place] [address], [place] [address] Apr, [facility] [address] [id number] [address] [place] [address], [place] [address] Mar, [facility] [address] [id number] [address] [place] [address], [place] [address] Mar, [facility] [address] [id number] [address] [place] [address], [place] [address] Jan, [facility] [address] [id number] [address] [place] [address], [place] [address] Jan, [facility] [address] [id number] [address] [place] [address], [place] [address] Jan, [facility] [address] [id number] [address] [place] [address], [place] [address] Jan, [facility] [address] [id number] [address] [place] [address], [place] [address] Jan, [facility] [address] [id number] [address] [place] [address], [place] [address] Dec, [facility] [address] [id number] [address] [place] [address], [place] [address] Dec, [facility] [address] [id number] [address] [place] [address], [place] [address] Dec, [facility] [address] [id number] [address] [place] [address], [place] [address] Nov, [facility] [address] [id number] [address] [place] [address], [place] [address] Nov, [facility] [address] [id number] [address] [place] [address], [place] [address] Sep, [facility] [address] [id number] [address] [place] [address], [place] [address] Sep, [facility] [address] [id number] [address] [place] [address], [place] [address] Aug, [facility] [address] [id number] [address] [place] [address], [place] [address] Aug, [facility] [address] [id number] [place] [id number] July, [facility] [place] [address] [id number] [place] [id number] Jun, [facility] [place] [address] [id number] [place] [id number] Apr, [facility] [place] [address] [id number] [place] [id number] Mar, [facility] [address] [id number] [address] [place] [address], [place] [address] Mar, [facility] [place] [address] [id number] [place] [id number] Mar, [facility] [address] [id number] [address] [place] [address] Mar, [facility] [place] [address] [id number] [place] [id number] Feb, [facility] [address] [id number] [address] [place] [address], [place] [address] Feb, [facility] [place] [address] [id number] [place] [id number] Feb, [facility] [address] [facility] [id number] [address] [place] [address] Feb, [facility] [place] [address] [id number] [place] [id number] Oct, [facility] [place] [address] [id number] [place] [id number] Oct, [facility] [place] [address] [id number] [place] [id number] July, [facility] [place] [address] [id number] [place] [id number] July, [facility] [place] [address] [id number] [place] [id number] Jun, [facility] [place] [address] [id number] [place] [id number] Jun, [facility] [place] [address] [id number] [place] [id number] Jun, [facility] [place] [address] [id number] [place] [id number] Mar, [facility] [place] [address] [id number] [place] [id number] Mar, [facility] [address] [facility] [id number] [address] [place] [id number] Feb, [facility] [address] [facility] [id number] [address] [place] [address] Feb, [facility] [address] [facility] [id number] [address] [place] [id number] Jan, [facility] [address] [facility] [id number] [address] [place] [address] Jan, [facility] [address] [facility] [id number] [address] [place] [address] Jan, [facility] [address] [facility] [id number] [address] [place] [address] Jan, [facility] [address] [facility] [id number] [place] [address] 11 Jan, 2011 [facility] [address] [facility] [id number] [address] [place] [id number] 14 Aug, 2010 [facility] [address] [facility] [id number] [place] [address] 17 Apr, 2010 IMMUNIZATIONS No Known Immunizations SOCIAL HISTORY Never Assessed REASON FOR VISIT INR results PLAN OF CARE VITAL SIGNS MEDICATIONS Unknown [...]
--- OUTSIDE RECORDS SUMMARY | 2019-11-08 13:04 | XMS REPORT ---
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 Name Role Phone DIANADAVIDAVANI Unavailable PROBLEMS Type Condition ICD9-CM Code ITQ39-GZ Code Onset Dates Condition S tatus SNOMED Code Problem Factor V Leiden D68.51 Active 3070 42083 Problem Anticoagulant long-term use Z79.01 Ac tive 946652151 Problem Post-phlebitic syndrome I87.009 Active 76973790 Problem 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 24828966 Problem Other chronic pain G89.29 Active 8 0039393 Problem Venous stasis ulcers, left I83.029 Act ozzy 917113421 Problem Essential hypertension I10 Active 47156407 Problem Venous anomaly Q27.9 Active 41011 4003 Problem Congenital single kidney Q60.0 Activ e 70636192 Problem Chronic prescription opiate use Z79.899 Active 997386791 Problem Pure hypercholesterolemia E78.00 Acti ve [id number] ALLERGIES No Information ENCOUNTERS Encounter Location Date Diagnosis [place] [address] [facility] [id number] [address] [place] [id number] Aug, Anticoagulant long-term use Z79.01 [facility] [address] [facility] [id number] [address] [place] [id number] Aug, Anticoagulant long-term use Z79.01 [facility] [address] [facility] [id number] [address] [place] [id number] Aug, Other chronic pain G89.29 [facility] [address] [facility] [id number] [address] [place] [id number] Aug, Other chronic pain G89.29 ; Anticoagulant long-term use Z79.01 ; Idiopathic chronic gout of multiple sites without tophus M1A.09X0 ; Oral pain K13.79 ; Dental infection K04.7 ; Essential hypertension I10 and Pure hypercholesterolemia E78.00 [facility] [address] [facility] [id number] [address] [place] [id number] July, Other chronic pain G89.29 [facility] [address] [facility] [id number] [address] [place] [id number] Jun, Other chronic pain G89.29 [facility] [address] [id number] [address] [place] [id number] Jun, [facility] [address] [facility] [id number] [address] [place] [phone] Jun, [facility] [address] [id number] [id number] Jun, Anticoagulant long-term use Z79.01 and I diopathic chronic gout of multiple sites without tophus M1A.09X0 [facility] [address] [facility] [id number] [address] [place] [phone] May, Other chronic pain G89.29 [facility] [address] [facility] [id number] [address] [place] [phone] May, [facility] [address] [facility] [id number] [address] [place] [id number] May, Anticoagulant long-term use Z79.01 [facility] [address] [facility] [id number] [address] [place] [id number] May, [facility] [address] [id number] [id number] May, Anticoagulant long-term use Z79.01 [facility] [address] [facility] [id number] [address] [place] [phone] May, Anticoagulant long-term use Z79.01 [facility] [address] [facility] [id number] [address] [place] [id number] May, Anticoagulant long-term use Z79.[address] [facility] [address] [id number] [id number] May, Factor V Leiden D68.51 [place] [address] [facility] [id number] [address] [place] [id number] Apr, Other chronic pain G89.29 [place] [address] [address] [place] [id number] [address] [place] [id number] Apr, Idiopathic chronic gout of m ultiple sites without tophus M1A.09X0 [facility] [address] [id number] [id number] Apr, Anticoagulant long-term use Z79.01 [facility] [address] [facility] [address] [id number] [id number] Apr, Anticoagulant long-term use Z79.01 ; Med ication side effect T88.7XXA and Idiopathic chronic gout of multiple sites without tophus M1A.09X0 [place] [address] [place] [id number] Apr, [place] [address] [address] Apr, Anticoagulant long-term use Z79.01 [place] [address] [place] [id number] [address] [place] [id number] Apr, Medication side effect T88.7 XXA and Factor V Leiden D68.51 [place] [address] [facility] [id number] [address] [place] [id number] Apr, Idiopathic chronic gout of m ultiple sites without tophus M1A.09X0 and Anticoagulant long-term use Z79.01 [facility] [address] [id number][place] [id number] Mar, Factor V Leiden D68.51 and Anticoagulant long-term use Z79.01 [place] [address] [facility] [id number] [address] [place] [id number] Mar, Factor V Leiden D68.51 ; Ant icoagulant long-term use Z79.01 ; Idiopathic chronic gout of multiple sites without tophus M1A.09X0 ; Pure hypercholesterolemia E78.00 ; Other chronic pain G89.29 and BMI 40.0-44.9, adult Z68.41 [facility] [address] [facility] [id number] [address] [place] [id number] Mar, [facility] [address] [facility] [id number] [address] [place] [address] Mar, Other chronic pain G89.29 [place] [address] [facility] [id number] [address] [place] [id number] Feb, Idiopathic chronic gout of m ultiple sites without tophus M1A.09X0 [id number] [place] [id number] Feb, Anticoagulant long-term use Z79.01 and I diopathic chronic gout of multiple sites without tophus M1A.09X0 [place] [address] [facility] [id number] [address] [place] [address] Feb, Anticoagulant long-term use Z79.01 and Idiopathic chronic gout of multiple sites without tophus M1A.09X0 [place] [address] [facility] [id number] [address] [place] [id number] Feb, [facility] [address] [facility] [id number] [address] [place] [id number] Feb, Other chronic pain G89.29 [place] [address] [facility] [id number] [address] [place] [phone] Jan, Other chronic pain G89.29 [place] [address] [facility] [id number] [address] [place] [id number] Dec, Other chronic pain G89.29 [place] [address] [facility] [id number] [address] [place] [id number] Dec, Anticoagulant long-term use Z79.01 [facility] [address] [facility] [id number] [address] [place] [address] Dec, Chronic prescription opiate use Z79.899 ; Factor V Leiden D68.51 ; Other chronic pain G89.29 and Anticoagulant long-term use Z79.01 [facility] [address] [facility] [id number] [address] [place] [address] Nov, Other chronic pain G89.29 [facility] [address] [facility] [id number] [address] [place] [id number] Oct, Other chronic pain G89.29 [place] [address] [facility] [id number] [address] [place] [address] Sep, Other chronic pain G89.29 [place] [address] [facility] [id number] [address] [place] [id number] Aug, Other chronic pain G89.29 [place] [address] [facility] [id number] [address] [place] [id number] Aug, Venous stasis ulcers, left I 83.029 [place] [address] [facility] [id number] [address] [place] [address] July, Other chronic pain G89.29 [place] [address] [facility] [id number] [address] [place] [phone] July, Venous stasis ulcers, left I 83.029 and Snoring R06.83 [place] [address] [facility] [id number] [address] [place] [address] Jun, Idiopathic chronic gout of m ultiple sites without tophus M1A.09X0 [place] [address] [facility] [id number] [address] [place] [phone] Jun, Acute renal insufficiency N2 8.9 [place] [address] [facility] [id number] [address] [place] [address] Jun, Other chronic pain G89.29 [place] [address] [place] [id number] [address] [place] [id number] 18 Jun, 2017 Acute renal insufficiency N2 8.9 [place] [id number] [facility] [id number] [place] [id number] Jun, Idiopathic chronic gout of multiple site s without tophus M1A.09X0 ; Essential hypertension I10 and Anticoagulant long-term use Z79.01 [place] [address] [facility] [id number] [address] [place] [address] Jun, Anticoagulant long-term use Z79.01 and Essential hypertension I10 [place] [address] [facility] [id number] [address] [place] [phone] May, Idiopathic chronic gout of m ultiple sites without tophus M1A.09X0 [place] [address] [place] [id number] [address] [place] [phone] May, [place] [address] [place] [id number] [address] [place] [address] May, Essential hypertension I10 ; Pure hypercholesterolemia E78.00 ; Anticoagulant long-term use Z79.01 and Idiopathic chronic gout of multiple sites without tophus M1A.09X0 [place] [address] [place] [address] May, Other chronic pain G89.29 [place] [address] [place] [id number] May, Anticoagulant long-term use Z79.01 [place] [address] [facility] [id number] [address] [place] [address] May, Chronic prescription opiate use Z79.899 ; Other chronic pain G89.29 ; Essential hypertension I10 ; Factor V Leiden D68.51 ; Anticoagulant long-term use Z79.01 ; Pure hypercholesterolemia E78.00 ; Venous stasis ulcers, left I83.029 ; Idiopathic chronic gout of multiple sites without tophus M1A.09X0 and Cellulitis of left lower extremity L03.116 [place] [address] [place] [id number] [address] [place] [id number] Apr, Other chronic pain G89.29 [facility] [address] [id number] [address] [place] [id number] Mar, Other chronic pain G89.29 [facility] [address] [id number] [address] [place] [id number] Mar, Factor V Leiden D68.51 ; Pur e hypercholesterolemia E78.00 and Other chronic pain G89.29 [facility] [address] [id number] [address] [place] [id number] Feb, Other chronic pain G89.29 [facility] [address] [id number] [address] [place] [id number] Jan, Idiopathic chronic gout of m ultiple sites without tophus M1A.09X0 [facility] [address] [facility] [id number] [address] [place] [phone] Jan, Other chronic pain G89.29 [facility] [address] [id number] [address] [place] [address] Dec, Anticoagulant long-term use Z79.01 ; Factor V Leiden D68.51 and Other chronic pain G89.29 [facility] [address] [id number] [address] [place] [id number] Dec, Other chronic pain G89.29 [facility] [address] [id number] [address] [place] [address] Nov, Other chronic pain G89.29 [facility] [address] [id number] [address] [place] [phone] Oct, Other chronic pain G89.29 [facility] [address] [facility] [id number] [address] [place] [id number] Sep, Anticoagulant long-term use Z79.01 [facility] [address] [facility] [id number] [address] [place] [address] Sep, Chronic prescription opiate use Z79.899 ; Anticoagulant long-term use Z79.01 ; Essential hypertension I10 ; Pure hypercholesterolemia E78.00 ; Factor V Leiden D68.51 ; Venous stasis ulcers, left I83.029 ; Other chronic pain G89.29 and Idiopathic chronic gout of multiple sites without tophus M1A.09X0 [facility] [address] [facility] [id number] [address] [place] [address] Aug, Anticoagulant long-term use Z79.01 [facility] [address] [facility] [id number] [address] [place] [id number] Aug, Other chronic pain G89.29 [facility] [address] [facility] [id number] [address] [place] [address] Aug, Essential hypertension I10 a nd Factor V Leiden D68.[address] [id number] [place] [address] [id number] Aug, Acute right ankle pain M25.571 and Tendo nitis of ankle M77.50 [facility] [address] [facility] [id number] [address] [place] [id number] Aug, [facility] [address] [facility] [id number] [address] [place] [id number] July, Other chronic pain G89.29 [facility] [address] [facility] [id number] [address] [place] [id number] Jun, Other chronic pain G89.29 [facility] [address] [id number] [address] [place] [address] Jun, Other chronic pain G89.29 [facility] [address] [facility] [id number] [address] [place] [address] Jun, Anticoagulant long-term use Z79.01 [facility] [address] [facility] [id number] [address] [place] [address] May, Other chronic pain G89.29 [facility] [address] [place] [address] May, Anticoagulant long-term use Z79.01 [facility] [address] [address] May, Other chronic pain G89.29 [facility] [address] [place] [id number] [address] [place] [address] Apr, Anticoagulant long-term use Z79.01 [facility] [address] [place] [id number] [address] [place] [address] Apr, Other chronic pain G89.29 [facility] [address] [address] Apr, Anticoagulant long-term use Z79.01 and Pure hypercholesterolemia E78.00 [place] [address] [address] Mar, [facility] [address] [address] Mar, Anticoagulant long-term use Z79.01 [facility] [address] [address] Mar, Other chronic pain G89.29 [facility] [address] [place] [id number] [address] [place] [address] Feb, Essential hypertension I10 ; Chronic prescription opiate use Z79.899 ; Other chronic pain G89.29 ; Screening Z13.9 ; Factor V Leiden D68.51 ; Anticoagulant long-term use Z79.01 ; Venous stasis dermatitis of left lower extremity I83.12 and Pure hypercholesterolemia E78.00 [place] [address] [address] 14 Jan, 2016 Anticoagulant long-term use Z79.01 [facility] [address] [place] [id number] [address] [place] [address] 10 Jan, 2016 Anticoagulant long-term use Z79.01 [facility] [address] [place] [id number] [address] [place] [phone] Jan, [facility] [address] [facility] [id number] [address] [place] [id number] Jan, [facility] [address] [facility] [id number] [address] [place] [id number] Dec, [facility] [address] [facility] [id number] [address] [place] [address] Nov, [facility] [address] [facility] [id number] [address] [place] [address] Oct, Anticoagulant long-term use Z79.01 [facility] [address] [facility] [id number] [address] [place] [phone] Oct, [facility] [address] [facility] [id number] [place] [address] Oct, Anticoagulant long-term use Z79.01 [facility] [address] [facility] [id number] [address] [place] [phone] Sep, [facility] [address] [facility] [id number] [address] [place] [id number] Aug, [facility] [address] [place] [id number] [place] [address] Aug, Chronic prescription opiate use Z79.899 ; Other chronic pain G89.29 ; Essential hypertension I10 and Pure hypercholesterolemia E78.0 [facility] [address] [facility] [id number] [address] [place] [address] July, Hyperlipidemia, group D E78. 3 and Anticoagulant long-term use Z79.01 [facility] [address] [facility] [id number] [address] [place] [address] July, Hyperlipidemia, group D E78. 3 ; Essential hypertension I10 and Factor V Leiden D68.51 [facility] [address] [facility] [id number] [address] [place] [id number] July, Essential hypertension I10 [place] [address] [facility] [id number] [address] [place] [id number] Jun, Hyperlipidemia, group D E78. 3 [facility] [address] [facility] [id number] [address] [place] [address] Jun, Factor V Leiden D68.51 [facility] [address] [facility] [id number] [address] [place] [address] May, Factor V Leiden D68.51 ; Hyp erlipidemia, group D E78.3 ; Essential hypertension I10 ; Other chronic pain G89.29 and Anticoagulant long-term use Z79.01 [facility] [address] [facility] [id number] [address] [place] [id number] 04 May, 2015 Anticoagulant long-term use Z79.01 [place] [address] [facility] [id number] [address] [place] [address] May, Anticoagulant long-term use Z79.01 [facility] [address] [facility] [id number] [address] [place] [phone] May, [facility] [address] [facility] [id number] [address] [place] [phone] Apr, [facility] [address] [place] [id number] [address] [place] [phone] Mar, [place] [address] [facility] [id number] [address] [place] [id number] Mar, [facility] [address] [facility] [id number] [address] [place] [address] Feb, Anticoagulant long-term use Z79.01 [facility] [address] [facility] [id number] [address] [place] [address] Feb, Chronic prescription opiate use Z79.899 ; Other chronic pain G89.29 ; Hyperlipidemia, group D E78.3 ; Factor V Leiden D68.51 and Anticoagulant long- term use Z79.01 [facility] [address] [facility] [id number] [address] [place] [phone] Feb, [facility] [address] [facility] [id number] [address] [place] [phone] Jan, [facility] [address] [facility] [id number] [address] [place] [address] Dec, Hyperlipidemia, unspecified E78.5 [facility] [address] [facility] [id number] [address] [place] [address] Dec, Cellulitis of left lower ext remity L03.116 ; Venous stasis ulcers, left I83.029 and Factor V Leiden D68.51 [facility] [address] [facility] [id number] [address] [place] [address] Dec, Hyperlipidemia 272.4 and Fac tor 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 [facility] [address] [facility] [id number] [address] [place] [id number] Dec, [facility] [address] [facility] [id number] [address] [place] [address] Nov, 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 [facility] [address] [facility] [id number] [address] [place] [id number] Nov, [facility] [address] [facility] [id number] [address] [place] [phone] Nov, [facility] [address] [facility] [id number] [address] [place] [phone] Nov, [facility] [address] [facility] [id number] [address] [place] [phone] Oct, [facility] [address] [facility] [id number] [address] [place] [id number] Oct, Hyperlipidemia 272.4 ; Chron ic pain disorder 338.4 ; Venous stasis ulcer of left lower extremity 454.0 and 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 [facility] [address] [facility] [id number] [address] [place] [phone] Sep, [facility] [address] [facility] [id number] [address] [place] [phone] 13 Sep, 2014 [facility] [address] [facility] [id number] [address] [place] [phone] Sep, Hyperlipidemia 272.4 and Fac tor 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 [facility] [address] [facility] [id number] [address] [place] [phone] Aug, [facility] [address] [facility] [id number] [address] [place] [phone] Aug, 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 [facility] [address] [facility] [id number] [address] [place] [phone] July, [facility] [address] [facility] [id number] [address] [place] [id number] July, Essential hypertension, fito gn 401.1 ; 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 ; Chronic pain disorder 338.4 ; Hyperlipidemia 272.4 and Venous stasis ulcer of left lower extremity 454.0 [facility] [address] [facility] [id number] [address] [place] [phone] Jun, [facility] [address] [facility] [id number] [address] [place] [phone] Jun, [facility] [address] [facility] [id number] [address] [place] [phone] May, [facility] [address] [facility] [id number] [address] [place] [phone] May, [facility] [address] [facility] [id number] [address] [place] [phone] Apr, [facility] [address] [facility] [id number] [address] [place] [phone] Apr, [facility] [address] [facility] [id number] [address] [place] [phone] Apr, [facility] [address] [facility] [id number] [address] [place] [phone] Apr, [facility] [address] [id number] [address] [place] [address], [place] [address] Apr, [facility] [address] [id number] [address] [place] [address], [place] [address] Apr, [facility] [address] [id number] [address] [place] [address], [place] [address] 15 Mar, 2014 [facility] [address] [id number] [address] [place] [address], [place] [address] Mar, [facility] [address] [id number] [address] [place] [address], [place] [address] Mar, [facility] [address] [id number] [address] [place] [address], [place] [address] Mar, [facility] [address] [id number] [address] [place] [address], [place] [address] 17 Feb, 2014 [facility] [address] [id number] [address] [place] [address], [place] [address] 17 Feb, 2014 [facility] [address] [id number] [address] [place] [address], [place] [address] 16 Feb, 2014 [facility] [address] [id number] [address] [place] [address], [place] [address] Feb, [facility] [address] [id number] [address] [place] [address], [place] [address] 24 Jan, 2014 [facility] [address] [id number] [address] [place] [address], [place] [address] Jan, [facility] [address] [id number] [address] [place] [address], [place] [address] 19 Jan, 2014 [facility] [address] [id number] [address] [place] [address], [place] [address] 14 Jan, 2014 [facility] [address] [id number] [address] [place] [address], [place] [address] 14 Jan, 2014 [facility] [address] [id number] [address] [place] [phone] Jan, [facility] [address] [id number] [address] [place] [address], [place] [address] Dec, [facility] [address] [id number] [address] [place] [address], [place] [address] Dec, [facility] [address] [id number] [address] [place] [address], [place] [address] Oct, [facility] [address] [id number] [address] [place] [address], [place] [address] Oct, [facility] [address] [id number] [address] [place] [address], [place] [address] Sep, [facility] [address] [id number] [address] [place] [address], [place] [address] Sep, [facility] [address] [id number] [address] [place] [address], [place] [address] Sep, [facility] [address] [id number] [address] [place] [address], [place] [address] Sep, [facility] [address] [id number] [address] [place] [address], [place] [address] Aug, [facility] [address] [id number] [address] [place] [address], [place] [address] Aug, [facility] [address] [id number] [address] [place] [address], [place] [address] July, [facility] [address] [id number] [address] [place] [address], [place] [address] July, [facility] [address] [id number] [address] [place] [address], [place] [address] Jun, [facility] [address] [id number] [address] [place] [address], [place] [address] Jun, [facility] [address] [id number] [address] [place] [address], [place] [address] May, [facility] [address] [id number] [address] [place] [address], [place] [address] May, [facility] [address] [id number] [address] [place] [address], [place] [address] Apr, [facility] [address] [id number] [address] [place] [address], [place] [address] Apr, [facility] [address] [id number] [address] [place] [address], [place] [address] Mar, [facility] [address] [id number] [address] [place] [address], [place] [address] Mar, [facility] [address] [id number] [address] [place] [address], [place] [address] Jan, [facility] [address] [id number] [address] [place] [address], [place] [address] Jan, [facility] [address] [id number] [address] [place] [address], [place] [address] Jan, [facility] [address] [id number] [address] [place] [address], [place] [address] Jan, [facility] [address] [id number] [address] [place] [address], [place] [address] Jan, [facility] [address] [id number] [address] [place] [address], [place] [address] Dec, [facility] [address] [id number] [address] [place] [address], [place] [address] Dec, [facility] [address] [id number] [address] [place] [address], [place] [address] Dec, [facility] [address] [id number] [address] [place] [address], [place] [address] Nov, [facility] [address] [id number] [address] [place] [address], [place] [address] Nov, [facility] [address] [id number] [address] [place] [address], [place] [address] Sep, [facility] [address] [id number] [address] [place] [phone] Sep, [facility] [address] [facility] [id number] [address] [place] [address] Aug, [facility] [address] [facility] [id number] [address] [place] [address] Aug, [facility] [place] [address] [id number] [place] [id number] July, [facility] [place] [address] [id number] [place] [id number] Jun, [facility] [place] [address] [id number] [place] [id number] Apr, [facility] [place] [address] [id number] [place] [id number] Mar, [facility] [address] [id number] [address] [place] [address] Mar, [facility] [address] [id number] [place] [id number] Mar, [facility] [address] [facility] [id number] [address] [place] [id number] Mar, [facility] [address] [id number] [place] [id number] Feb, [facility] [address] [facility] [id number] [address] [place] [phone] Feb, [facility] [place] [address] [id number] [place] [id number] Feb, [facility] [address] [id number] [address] [place] [address] Feb, [facility] [place] [address] [id number] [place] [id number] Oct, [facility] [place] [address] [id number] [place] [id number] Oct, [facility] [place] [address] [id number] [place] [id number] July, [facility] [place] [address] [id number] [place] [id number] July, [facility] [place] [address] [id number] [place] [id number] Jun, [facility] [place] [address] [id number] [place] [id number] Jun, [facility] [place] [address] [id number] [place] [id number] Jun, [facility] [place] [address] [id number] [place] [id number] Mar, [facility] [place] [address] [id number] [place] [id number] Mar, [facility] [address] [facility] [id number] [address] [place] [id number] Feb, [facility] [address] [facility] [id number] [address] [place] [phone] Feb, [facility] [address] [facility] [id number] [address] [place] [phone] Jan, [facility] [address] [place] [id number] [address] [place] [phone] Jan, [facility] [address] [facility] [id number] [address] [place] [phone] Jan, [facility] [address] [facility] [id number] [address] [place] [address] Jan, [facility] [address] [facility] [id number] [address] [place] [phone] Jan, [facility] [address] [facility] [id number] [address] [place] [address] Aug, [facility] [address] [facility] [id number] [address] [place] [address] Apr, IMMUNIZATIONS No Known Immunizations SOCIAL HISTORY [...]
--- OUTSIDE RECORDS SUMMARY | 2019-11-08 13:04 | XMS REPORT ---
Author Author Zana Mojica Doctor Organization [facility] Address Unknown Phone Unavailable Care Team Providers Care Subeditor Name Role Phone Migration, Doctor Unavailable Unavailable PROBLEMS Type Condition ICD9-CM Code OKA32-SB Code Onset Dates Condition S tatus SNOMED Code Problem Factor V Leiden D68.51 Active 3070 40992 Problem Anticoagulant long-term use Z79.01 Ac tive 594581739 Problem Post-phlebitic syndrome I87.009 Active 10475380 Problem 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 79817739 Problem Other chronic pain G89.29 Active 8 3502077 Problem Venous stasis ulcers, left I83.029 Act ozzy 715166633 Problem Essential hypertension I10 Active 93571968 Problem Venous anomaly Q27.9 Active 39804 4003 Problem Congenital single kidney Q60.0 Activ e 79687179 Problem Chronic prescription opiate use Z79.899 Active 779679591 Problem Pure hypercholesterolemia E78.00 Acti ve 936423593 ALLERGIES Substance Reaction Event Type Date Status Amoxicillin Unknown Drug Allergy Jun, Active ENCOUNTERS Encounter Location Date Diagnosis [place] [address] [place] [id number] [address] [place] [phone] Aug, Anticoagulant long-term use Z79.01 [place] [address] [place] [id number] [address] [place] [address] Aug, Anticoagulant long-term use Z79.01 [facility] [address] [facility] [id number] [address] [place] [address] Aug, Other chronic pain G89.29 [place] [address] [place] [id number] [address] [place] [address] Aug, Other chronic pain G89.29 ; Anticoagulant long-term use Z79.01 ; Idiopathic chronic gout of multiple sites without tophus M1A.09X0 ; Oral pain K13.79 ; Dental infection K04.7 ; Essential hypertension I10 and Pure hypercholesterolemia E78.00 [facility] [address] [id number] [address] [place] [address] July, Other chronic pain G89.29 [facility] [address] [facility] [id number] [address] [place] [address] Jun, Other chronic pain G89.29 [facility] [address] [facility] [id number] [address] [place] [phone] Jun, [facility] [address] [id number] [address] [place] [phone] Jun, [facility] [address] [id number] [id number] Jun, Anticoagulant long-term use Z79.01 and I diopathic chronic gout of multiple sites without tophus M1A.09X0 [facility] [address] [facility] [id number] [address] [place] [phone] May, Other chronic pain G89.29 [facility] [address] [facility] [id number] [address] [place] [phone] May, [facility] [address] [facility] [id number] [address] [place] [address] May, Anticoagulant long-term use Z79.01 [facility] [address] [facility] [id number] [address] [place] [phone] May, [facility] [address] [id number][place] [id number] May, Anticoagulant long-term use Z79.01 [facility] [address] [facility] [id number] [address] [place] [address] May, Anticoagulant long-term use Z79.01 [facility] [address] [facility] [id number] [address] [place] [address] May, Anticoagulant long-term use Z79.[address] [facility] [address] [id number][place] [id number] May, Factor V Leiden D68.51 [place] [address] [facility] [id number] [address] [place] [address] Apr, Other chronic pain G89.29 [place] [address] [facility] [id number] [address] [place] [phone] Apr, Idiopathic chronic gout of m ultiple sites without tophus M1A.09X0 [facility] [address] [id number][place] [id number] Apr, Anticoagulant long-term use Z79.01 [facility] [address] [facility] [address] [id number][place] [id number] Apr, Anticoagulant long-term use Z79.01 ; Med ication side effect T88.7XXA and Idiopathic chronic gout of multiple sites without tophus M1A.09X0 [place] [address] [place] [id number] [address] [place] [phone] Apr, [place] [address] [place] [id number] [address] [place] [address] Apr, Anticoagulant long-term use Z79.01 [place] [address] [place] [id number] [address] [place] [address] Apr, Medication side effect T88.7 XXA and Factor V Leiden D68.51 [place] [address] [facility] [id number] [address] [place] [address] Apr, Idiopathic chronic gout of m ultiple sites without tophus M1A.09X0 and Anticoagulant long-term use Z79.01 [facility] [address] [id number][place] [id number] Mar, Factor V Leiden D68.51 and Anticoagulant long-term use Z79.01 [place] [address] [facility] [id number] [address] [place] [address] Mar, Factor V Leiden D68.51 ; Ant icoagulant long-term use Z79.01 ; Idiopathic chronic gout of multiple sites without tophus M1A.09X0 ; Pure hypercholesterolemia E78.00 ; Other chronic pain G89.29 and BMI 40.0-44.9, adult Z68.41 [facility] [address] [facility] [id number] [address] [place] [address] Mar, [facility] [address] [facility] [id number] [address] [place] [address] Mar, Other chronic pain G89.29 [facility] [address] [id number] [address] [place] [phone] Feb, Idiopathic chronic gout of m ultiple sites without tophus M1A.09X0 [place] [address] [facility] [address] [id number][place] [id number] Feb, Anticoagulant long-term use Z79.01 and I diopathic chronic gout of multiple sites without tophus M1A.09X0 [place] [address] [facility] [id number] [address] [place] [address] Feb, Anticoagulant long-term use Z79.01 and Idiopathic chronic gout of multiple sites without tophus M1A.09X0 [facility] [address] [facility] [id number] [address] [place] [phone] Feb, [facility] [address] [facility] [id number] [address] [place] [address] Feb, Other chronic pain G89.29 [facility] [address] [facility] [id number] [address] [place] [phone] Jan, Other chronic pain G89.29 [facility] [address] [facility] [id number] [address] [place] [address] Dec, Other chronic pain G89.29 [facility] [address] [facility] [id number] [address] [place] [address] Dec, Anticoagulant long-term use Z79.01 [facility] [address] [id number] [address] [place] [address] Dec, Chronic prescription opiate use Z79.899 ; Factor V Leiden D68.51 ; Other chronic pain G89.29 and Anticoagulant long-term use Z79.01 [facility] [address] [id number] [address] [place] [phone] 12 Nov, 2017 Other chronic pain G89.29 [facility] [address] [id number] [address] [place] [address] Oct, Other chronic pain G89.29 [place] [address] [id number] [address] [place] [address] Sep, Other chronic pain G89.29 [place] [address] [facility] [id number] [address] [place] [address] Aug, Other chronic pain G89.29 [place] [address] [facility] [id number] [address] [place] [address] Aug, Venous stasis ulcers, left I 83.029 [place] [address] [facility] [id number] [address] [place] [address] July, Other chronic pain G89.29 [facility] [address] [facility] [id number] [address] [place] [phone] July, Venous stasis ulcers, left I 83.029 and Snoring R06.83 [place] [address] [id number] [address] [place] [address] Jun, Idiopathic chronic gout of m ultiple sites without tophus M1A.09X0 [place] [address] [id number] [address] [place] [address] Jun, Acute renal insufficiency N2 8.9 [place] [address] [facility] [id number] [address] [place] [address] Jun, Other chronic pain G89.29 [facility] [address] [facility] [id number] [address] [place] [address] Jun, Acute renal insufficiency N2 8.9 [place] [address] [facility] [id number] [place] [id number] Jun, Idiopathic chronic gout of multiple site s without tophus M1A.09X0 ; Essential hypertension I10 and Anticoagulant long-term use Z79.01 [place] [address] [facility] [id number] [address] [place] [phone] Jun, Anticoagulant long-term use Z79.01 and Essential hypertension I10 [place] [address] [facility] [id number] [address] [place] [address] May, Idiopathic chronic gout of m ultiple sites without tophus M1A.09X0 [place] [address] [facility] [id number] [address] [place] [address] May, [place] [address] [place] [id number] [address] [place] [phone] May, Essential hypertension I10 ; Pure hypercholesterolemia E78.00 ; Anticoagulant long-term use Z79.01 and Idiopathic chronic gout of multiple sites without tophus M1A.09X0 [place] [address] [facility] [id number] [address] [place] [address] May, Other chronic pain G89.29 [place] [address] [place] [id number] [address] [place] [address] May, Anticoagulant long-term use Z79.01 [place] [address] [facility] [id number] [address] [place] [address] May, Chronic prescription opiate use Z79.899 ; Other chronic pain G89.29 ; Essential hypertension I10 ; Factor V Leiden D68.51 ; Anticoagulant long-term use Z79.01 ; Pure hypercholesterolemia E78.00 ; Venous stasis ulcers, left I83.029 ; Idiopathic chronic gout of multiple sites without tophus M1A.09X0 and Cellulitis of left lower extremity L03.116 [place] [address] [facility] [id number] [address] [place] [address] Apr, Other chronic pain G89.29 [facility] [address] [id number] [address] [place] [address] Mar, Other chronic pain G89.29 [facility] [address] [facility] [id number] [address] [place] [address] Mar, Factor V Leiden D68.51 ; Pur e hypercholesterolemia E78.00 and Other chronic pain G89.29 [facility] [address] [id number] [address] [place] [address] Feb, Other chronic pain G89.29 [facility] [address] [facility] [id number] [address] [place] [address] Jan, Idiopathic chronic [facility]phus M1A.09X0 [facility] [address] [facility] [id number] [address] [place] [phone] Jan, Other chronic pain G89.29 [facility] [address] [facility] [id number] [address] [place] [address] Dec, Anticoagulant long-term use Z79.01 ; Factor V Leiden D68.51 and Other chronic pain G89.29 [facility] [address] [facility] [id number] [address] [place] [address] Dec, Other chronic pain G89.29 [facility] [address] [facility] [id number] [address] [place] [phone] Nov, Other chronic pain G89.29 [facility] [address] [id number] [address] [place] [address] Oct, Other chronic pain G89.29 [facility] [address] [facility] [id number] [address] [place] [address] Sep, Anticoagulant long-term use Z79.01 [facility] [address] [facility] [id number] [address] [place] [address] Sep, Chronic prescription opiate use Z79.899 ; Anticoagulant long-term use Z79.01 ; Essential hypertension I10 ; Pure hypercholesterolemia E78.00 ; Factor V Leiden D68.51 ; Venous stasis ulcers, left I83.029 ; Other chronic pain G89.29 and Idiopathic chronic gout of multiple sites without tophus M1A.09X0 [facility] [address] [facility] [id number] [address] [place] [address] Aug, Anticoagulant long-term use Z79.01 [facility] [address] [facility] [id number] [address] [place] [address] Aug, Other chronic pain G89.29 [place] [address] [facility] [id number] [address] [place] [address] Aug, Essential hypertension I10 a nd Factor V Leiden D68.[address] [place] [id number] [place] [address] [id number] 15 Aug, 2016 Acute right ankle pain M25.571 and Tendo nitis of ankle M77.50 [facility] [address] [facility] [id number] [address] [place] [phone] Aug, [place] [address] [facility] [id number] [address] [place] [phone] July, Other chronic pain G89.29 [place] [address] [facility] [id number] [address] [place] [phone] Jun, Other chronic pain G89.29 [facility] [address] [facility] [id number] [address] [place] [address] Jun, Other chronic pain G89.29 [facility] [address] [facility] [id number] [address] [place] [address] Jun, Anticoagulant long-term use Z79.01 [facility] [address] [facility] [id number] [address] [place] [address] May, Other chronic pain G89.29 [facility] [address] [facility] [id number] [address] [place] [address] May, Anticoagulant long-term use Z79.01 [facility] [address] [facility] [id number] [address] [place] [phone] May, Other chronic pain G89.29 [facility] [address] [facility] [id number] [address] [place] [address] Apr, Anticoagulant long-term use Z79.01 [facility] [address] [facility] [id number] [address] [place] [address] Apr, Other chronic pain G89.29 [facility] [address] [facility] [id number] [address] [place] [address] Apr, Anticoagulant long-term use Z79.01 and Pure hypercholesterolemia E78.00 [place] [address] [facility] [id number] [address] [place] [address] Mar, [place] [address] [facility] [id number] [address] [place] [address] Mar, Anticoagulant long-term use Z79.01 [place] [address] [facility] [id number] [address] [place] [address] Mar, Other chronic pain G89.29 [place] [address] [facility] [id number] [address] [place] [address] Feb, Essential hypertension I10 ; Chronic prescription opiate use Z79.899 ; Other chronic pain G89.29 ; Screening Z13.9 ; Factor V Leiden D68.51 ; Anticoagulant long-term use Z79.01 ; Venous stasis dermatitis of left lower extremity I83.12 and Pure hypercholesterolemia E78.00 [place] [address] [facility] [id number] [address] [place] [address] Jan, Anticoagulant long-term use Z79.01 [place] [address] [facility] [id number] [address] [place] [address] Jan, Anticoagulant long-term use Z79.01 [place] [address] [facility] [id number] [address] [place] [address] Jan, [facility] [address] [facility] [id number] [address] [place] [phone] Jan, [facility] [address] [facility] [id number] [address] [place] [phone] Dec, [facility] [address] [facility] [id number] [address] [place] [address] Nov, [facility] [address] [facility] [id number] [address] [place] [address] Oct, Anticoagulant long-term use Z79.01 [facility] [address] [facility] [id number] [address] [place] [address] Oct, [facility] [address] [facility] [id number] [address] [place] [address] Oct, Anticoagulant long-term use Z79.01 [facility] [address] [facility] [id number] [address] [place] [address] Sep, [facility] [address] [facility] [id number] [address] [place] [address] Aug, [facility] [address] [facility] [id number] [address] [place] [address] Aug, Chronic prescription opiate use Z79.899 ; Other chronic pain G89.29 ; Essential hypertension I10 and Pure hypercholesterolemia E78.0 [facility] [address] [facility] [id number] [address] [place] [phone] July, Hyperlipidemia, group D E78. 3 and Anticoagulant long-term use Z79.01 [facility] [address] [facility] [id number] [address] [place] [address] July, Hyperlipidemia, group D E78. 3 ; Essential hypertension I10 and Factor V Leiden D68.51 [facility] [address] [facility] [id number] [address] [place] [address] July, Essential hypertension I10 [facility] [address] [facility] [id number] [address] [place] [address] Jun, Hyperlipidemia, group D E78. 3 [facility] [address] [id number] [address] [place] [phone] Jun, Factor V Leiden D68.51 [facility] [address] [facility] [id number] [address] [place] [address] May, Factor V Leiden D68.51 ; Hyp erlipidemia, group D E78.3 ; Essential hypertension I10 ; Other chronic pain G89.29 and Anticoagulant long-term use Z79.01 [facility] [address] [facility] [id number] [address] [place] [phone] 04 May, 2015 Anticoagulant long-term use Z79.01 [facility] [address] [facility] [id number] [address] [place] [address] May, Anticoagulant long-term use Z79.01 [facility] [address] [facility] [id number] [address] [place] [phone] May, [facility] [address] [facility] [id number] [address] [place] [phone] Apr, [facility] [address] [facility] [id number] [address] [place] [phone] Mar, [facility] [address] [facility] [id number] [address] [place] [phone] Mar, [facility] [address] [facility] [id number] [address] [place] [phone] Feb, Anticoagulant long-term use Z79.01 [facility] [address] [facility] [id number] [address] [place] [address] Feb, Chronic prescription opiate use Z79.899 ; Other chronic pain G89.29 ; Hyperlipidemia, group D E78.3 ; Factor V Leiden D68.51 and Anticoagulant long- term use Z79.01 [facility] [address] [facility] [id number] [address] [place] [id number] Feb, [place] [id number] [facility] [id number] [address] [place] [phone] Jan, [facility] [address] [facility] [id number] [address] [place] [id number] Dec, Hyperlipidemia, unspecified E78.5 [facility] [address] [facility] [id number] [address] [place] [phone] Dec, Cellulitis of left lower ext remity L03.116 ; Venous stasis ulcers, left I83.029 and Factor V Leiden D68.51 [facility] [address] [facility] [id number] [address] [place] [phone] Dec, Hyperlipidemia 272.4 and Fac tor 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 [facility] [address] [facility] [id number] [address] [place] [phone] Dec, [facility] [address] [facility] [id number] [address] [place] [phone] Nov, 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 [facility] [address] [facility] [id number] [address] [place] [phone] Nov, [facility] [address] [facility] [id number] [address] [place] [phone] Nov, [facility] [address] [facility] [id number] [address] [place] [phone] Nov, [facility] [address] [facility] [id number] [address] [place] [id number] Oct, [facility] [address] [facility] [id number] [address] [place] [phone] Oct, Hyperlipidemia 272.4 ; Chron ic pain disorder 338.4 ; Venous stasis ulcer of left lower extremity 454.0 and 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 [facility] [address] [facility] [id number] [address] [place] [id number] Sep, [facility] [address] [facility] [id number] [address] [place] [phone] Sep, [facility] [address] [id number] [address] [place] [id number] Sep, Hyperlipidemia 272.4 and Fac tor 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 [facility] [address] [id number] [address] [place] [phone] Aug, [facility] [address] [facility] [id number] [address] [place] [place] [address] Aug, 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 [facility] [address] [id number] [address] [place] [address] July, [facility] [address] [facility] [id number] [address] [place] [address] July, Essential hypertension, fito gn 401.1 ; 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 ; Chronic pain disorder 338.4 ; Hyperlipidemia 272.4 and Venous stasis ulcer of left lower extremity 454.0 [facility] [address] [facility] [id number] [address] [place] [address] Jun, [facility] [address] [facility] [id number] [address] [place] [address] Jun, [facility] [address] [facility] [id number] [address] [place] [address] May, [facility] [address] [facility] [id number] [address] [place] [address] May, [facility] [address] [facility] [id number] [address] [place] [address] Apr, [facility] [address] [facility] [id number] [address] [place] [address] Apr, [facility] [address] [id number] [address] [place] [address] Apr, [facility] [address] [facility] [id number] [address] [place] [address] Apr, [facility] [address] [id number] [address] [place] [address], [place] [address] 13 Apr, 2014 [facility] [address] [id number] [address] [place] [address], [place] [address] 13 Apr, 2014 [facility] [address] [id number] [address] [place] [address], [place] [address] 15 Mar, 2014 [facility] [address] [id number] [address] [place] [address], [place] [address] 15 Mar, 2014 [facility] [address] [id number] [address] [place] [address], [place] [address] Mar, [facility] [address] [id number] [address] [place] [address], [place] [address] Mar, [facility] [address] [id number] [address] [place] [address], [place] [address] 17 Feb, 2014 [facility] [address] [id number] [address] [place] [address], [place] [address] 17 Feb, 2014 [facility] [address] [id number] [address] [place] [address], [place] [address] 16 Feb, 2014 [facility] [address] [id number] [address] [place] [address], [place] [address] Feb, [facility] [address] [id number] [address] [place] [address], [place] [address] 24 Jan, 2014 [facility] [address] [id number] [address] [place] [address], [place] [address] Jan, [facility] [address] [id number] [address] [place] [address], [place] [address] 19 Jan, 2014 [facility] [address] [id number] [address] [place] [address], [place] [address] 14 Jan, 2014 [facility] [address] [id number] [address] [place] [address], [place] [address] 14 Jan, 2014 [facility] [address] [id number] [address] [place] [address], [place] [address] Jan, [facility] [address] [id number] [address] [place] [address], [place] [address] Dec, [facility] [address] [id number] [address] [place] [address], [place] [address] Dec, [facility] [address] [id number] [address] [place] [address], [place] [address] Oct, [facility] [address] [id number] [address] [place] [address], [place] [address] Oct, [facility] [address] [id number] [address] [place] [address], [place] [address] Sep, [facility] [address] [id number] [address] [place] [address], [place] [address] Sep, [facility] [address] [id number] [address] [place] [address], [place] [address] Sep, [facility] [address] [id number] [address] [place] [address], [place] [address] Sep, [facility] [address] [id number] [address] [place] [address], [place] [address] Aug, [facility] [address] [id number] [address] [place] [address], [place] [address] Aug, [facility] [address] [id number] [address] [place] [address], [place] [address] July, [facility] [address] [id number] [address] [place] [address], [place] [address] July, [facility] [address] [id number] [address] [place] [address], [place] [address] Jun, [facility] [address] [id number] [address] [place] [address], [place] [address] Jun, [facility] [address] [id number] [address] [place] [address], [place] [address] May, [facility] [address] [id number] [address] [place] [address], [place] [address] May, [facility] [address] [id number] [address] [place] [address], [place] [address] Apr, [facility] [address] [id number] [address] [place] [address], [place] [address] Apr, [facility] [address] [id number] [address] [place] [address], [place] [address] Mar, [facility] [address] [id number] [address] [place] [address], [place] [address] Mar, [facility] [address] [id number] [address] [place] [address], [place] [address] Jan, [facility] [address] [id number] [address] [place] [address], [place] [address] Jan, [facility] [address] [id number] [address] [place] [address], [place] [address] Jan, [facility] [address] [id number] [address] [place] [address], [place] [address] Jan, [facility] [address] [id number] [address] [place] [address], [place] [address] Jan, [facility] [address] [id number] [address] [place] [address], [place] [address] Dec, [facility] [address] [id number] [address] [place] [address], [place] [address] Dec, [facility] [address] [id number] [address] [place] [address], [place] [address] Dec, [facility] [address] [id number] [address] [place] [address], [place] [address] Nov, [facility] [address] [id number] [address] [place] [address], [place] [address] Nov, [facility] [address] [id number] [address] [place] [address], [place] [address] Sep, [facility] [address] [id number] [address] [place] [address], [place] [address] Sep, [facility] [address] [facility] [id number] [address] [place] [address], [place] [address] Aug, [facility] [address] [facility] [id number] [address] [place] [address], [place] [address] Aug, [facility] [place] [address] [id number] [place] [id number] July, [facility] [place] [address] [id number] [place] [id number] Jun, [facility] [place] [address] [id number] [place] [id number] Apr, [facility] [place] [address] [id number] [place] [id number] Mar, [facility] [address] [facility] [id number] [address] [place] [address], [place] [address] Mar, [facility] [place] [address] [id number] [place] [id number] Mar, [facility] [address] [facility] [id number] [address] [place] [address], [place] [address] Mar, [facility] [place] [address] [id number] [place] [id number] Feb, [facility] [address] [facility] [id number] [address] [place] [address] Feb, [facility] [place] [address] [id number] [place] [id number] Feb, [facility] [address] [id number] [address] [place] [address], [place] [address] Feb, [facility] [place] [address] [id number] [place] [id number] Oct, [facility] [place] [address] [id number] [place] [id number] Oct, [facility] [place] [address] [id number] [place] [id number] July, [facility] [place] [address] [id number] [place] [id number] July, [facility] [place] [address] [id number] [place] [id number] Jun, [facility] [place] [address] [id number] [place] [id number] Jun, [facility] [place] [address] [id number] [place] [id number] Jun, [facility] [place] [address] [id number] [place] [id number] Mar, [facility] [place] [address] [id number] [place] [id number] Mar, [facility] [address] [facility] [id number] [address] [place] [address] Feb, [facility] [address] [place] [id number] [address] [place] [address] Feb, [facility] [address] [facility] [id number] [address] [place] [address] Jan, [facility] [address] [place] [id number] [address] [place] [address] Jan, [facility] [address] [place] [id number] [address] [place] [address] Jan, [facility] [address] [place] [id number] [address] [place] [address] Jan, [facility] [address] [place] [id number] [address] [place] [address] Jan, [facility] [address] [facility] [id number] [address] [place] [address] Aug, [facility] [address] [place] [id number] [address] [place] [address] Apr, IMMUNIZATIONS No Known Immunizations SOCIAL HISTORY Never Assessed REASON FOR VISIT EMR-Jerry PLAN OF CARE VITAL SIGNS MEDICATIONS Medication Instructions Dosage Frequency Start Date End Date Duration S reaganus Coumadin 10 mg take 1 tablet (10 mg) by oral route once da darnell Feb, Active Amoxicillin 500 mg 2 capsule by Oral route 2 times per day for 10 day(s) Sep, Active Bactroban 2 % 1 sushil by Topical route 2 times per day f or 14 day(s) Dec, Active Clindamycin HCl 300 mg 1 Capsule by Po route 3 times p er day for 10 days Dec, Active Gabapentin 300 mg 1 capsule by Oral ro [place] 3 times per day Start 1 time per day for 3 days, increase as tolerated to 3x/day Apr, Active Fish Oil 1 gram take 1 capsule by Oral route 3 times per day Sep, Active RESULTS No Results PROCEDURES No Known [...]
--- OUTSIDE RECORDS SUMMARY | 2019-11-08 13:04 | XMS REPORT ---
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 Role Phone DIANADAVIDAVANI Unavailable PROBLEMS Type Condition ICD9-CM Code ARV95-PO Code Onset Dates Condition S tatus SNOMED Code Problem Factor V Leiden D68.51 Active 3070 96012 Problem Anticoagulant long-term use Z79.01 Ac tive 696227306 Problem Post-phlebitic syndrome I87.009 Active 95792666 Problem 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 40044131 Problem Other chronic pain G89.29 Active 8 8040393 Problem Venous stasis ulcers, left I83.029 Act ozzy 795390985 Problem Essential hypertension I10 Active 26784407 Problem Venous anomaly Q27.9 Active 41673 4003 Problem Congenital single kidney Q60.0 Activ e 42423757 Problem Chronic prescription opiate use Z79.899 Active 983026604 Problem Pure hypercholesterolemia E78.00 Acti ve [id number] ALLERGIES No Information ENCOUNTERS Encounter Location Date Diagnosis [place] [address] [facility] [id number] [address] [place] [address] Aug, Anticoagulant long-term use Z79.01 [facility] [address] [facility] [id number] [address] [place] [address] Aug, Anticoagulant long-term use Z79.01 [facility] [address] [facility] [id number] [address] [place] [address] Aug, Other chronic pain G89.29 [facility] [address] [facility] [id number] [address] [place] [address] Aug, Other chronic pain G89.29 ; Anticoagulant long-term use Z79.01 ; Idiopathic chronic gout of multiple sites without tophus M1A.09X0 ; Oral pain K13.79 ; Dental infection K04.7 ; Essential hypertension I10 and Pure hypercholesterolemia E78.00 [facility] [address] [facility] [id number] [address] [place] [address] July, Other chronic pain G89.29 [facility] [address] [facility] [id number] [address] [place] [address] Jun, Other chronic pain G89.29 [facility] [address] [id number] [address] [place] [address] Jun, [facility] [address] [facility] [id number] [address] [place] [address] Jun, [facility] [address] [id number] [id number] Jun, Anticoagulant long-term use Z79.01 and I diopathic chronic gout of multiple sites without tophus M1A.09X0 [facility] [address] [facility] [id number] [address] [place] [address] May, Other chronic pain G89.29 [facility] [address] [facility] [id number] [address] [place] [address] May, [facility] [address] [facility] [id number] [address] [place] [address] May, Anticoagulant long-term use Z79.01 [facility] [address] [facility] [id number] [address] [place] [address] May, [facility] [address] [id number] [id number] May, Anticoagulant long-term use Z79.01 [facility] [address] [facility] [id number] [address] [place] [address] May, Anticoagulant long-term use Z79.01 [facility] [address] [facility] [id number] [address] [place] [address] May, Anticoagulant long-term use Z79.[address] [facility] [address] [id number][place] [id number] May, Factor V Leiden D68.51 [place] [address] [facility] [id number] [address] [place] [address] Apr, Other chronic pain G89.29 [place] [address] [place] [id number] [address] [place] [address] Apr, Idiopathic chronic gout of m ultiple sites without tophus M1A.09X0 [facility] [address] [id number][place] [id number] Apr, Anticoagulant long-term use Z79.01 [facility] [address] [facility] [address] [id number][place] [id number] Apr, Anticoagulant long-term use Z79.01 ; Med ication side effect T88.7XXA and Idiopathic chronic gout of multiple sites without tophus M1A.09X0 [place] [id number] [place] [address] Apr, [place] [address] [address] Apr, Anticoagulant long-term use Z79.01 [place] [address] [place] [id number] [address] [place] [address] Apr, Medication side effect T88.7 XXA and Factor V Leiden D68.51 [place] [address] [facility] [id number] [address] [place] [address] Apr, Idiopathic chronic gout of m ultiple sites without tophus M1A.09X0 and Anticoagulant long-term use Z79.01 [facility] [address] [id number][place] [id number] Mar, Factor V Leiden D68.51 and Anticoagulant long-term use Z79.01 [place] [address] [facility] [id number] [address] [place] [address] Mar, Factor V Leiden D68.51 ; Ant icoagulant long-term use Z79.01 ; Idiopathic chronic gout of multiple sites without tophus M1A.09X0 ; Pure hypercholesterolemia E78.00 ; Other chronic pain G89.29 and BMI 40.0-44.9, adult Z68.41 [facility] [address] [facility] [id number] [address] [place] [address] Mar, [facility] [address] [facility] [id number] [address] [place] [address] Mar, Other chronic pain G89.29 [place] [address] [facility] [id number] [address] [place] [address] Feb, Idiopathic chronic gout of m ultiple sites without tophus M1A.09X0 [id number] [place] [id number] Feb, Anticoagulant long-term use Z79.01 and I diopathic chronic gout of multiple sites without tophus M1A.09X0 [place] [address] [facility] [id number] [address] [place] [address] Feb, Anticoagulant long-term use Z79.01 and Idiopathic chronic gout of multiple sites without tophus M1A.09X0 [place] [address] [facility] [id number] [address] [place] [address] Feb, [facility] [address] [facility] [id number] [address] [place] [address] Feb, Other chronic pain G89.29 [place] [address] [facility] [id number] [address] [place] [address] Jan, Other chronic pain G89.29 [place] [address] [facility] [id number] [address] [place] [address] Dec, Other chronic pain G89.29 [place] [address] [facility] [id number] [address] [place] [address] Dec, Anticoagulant long-term use Z79.01 [facility] [address] [facility] [id number] [address] [place] [address] Dec, Chronic prescription opiate use Z79.899 ; Factor V Leiden D68.51 ; Other chronic pain G89.29 and Anticoagulant long-term use Z79.01 [facility] [address] [facility] [id number] [address] [place] [address] Nov, Other chronic pain G89.29 [facility] [address] [facility] [id number] [address] [place] [address] Oct, Other chronic pain G89.29 [place] [address] [facility] [id number] [address] [place] [address] Sep, Other chronic pain G89.29 [place] [address] [facility] [id number] [address] [place] [address] Aug, Other chronic pain G89.29 [place] [address] [facility] [id number] [address] [place] [address] Aug, Venous stasis ulcers, left I 83.029 [place] [address] [facility] [id number] [address] [place] [address] July, Other chronic pain G89.29 [place] [address] [facility] [id number] [address] [place] [address] July, Venous stasis ulcers, left I 83.029 and Snoring R06.83 [place] [address] [facility] [id number] [address] [place] [address] Jun, Idiopathic chronic gout of m ultiple sites without tophus M1A.09X0 [place] [address] [facility] [id number] [address] [place] [address] Jun, Acute renal insufficiency N2 8.9 [place] [address] [facility] [id number] [address] [place] [address] Jun, Other chronic pain G89.29 [place] [address] [place] [id number] [address] [place] [address] 18 Jun, 2017 Acute renal insufficiency N2 8.9 [place] [id number] [facility] [address] [id number] [place] [id number] Jun, Idiopathic chronic gout of multiple site s without tophus M1A.09X0 ; Essential hypertension I10 and Anticoagulant long-term use Z79.01 [place] [address] [facility] [id number] [address] [place] [address] Jun, Anticoagulant long-term use Z79.01 and Essential hypertension I10 [place] [address] [facility] [id number] [address] [place] [address] May, Idiopathic chronic gout of m ultiple sites without tophus M1A.09X0 [place] [address] [place] [id number] [address] [place] [address] May, [place] [address] [place] [id number] [address] [place] [address] May, Essential hypertension I10 ; Pure hypercholesterolemia E78.00 ; Anticoagulant long-term use Z79.01 and Idiopathic chronic gout of multiple sites without tophus M1A.09X0 [place] [id number] [place] [address] May, Other chronic pain G89.29 [place] [id number] [place] [address] May, Anticoagulant long-term use Z79.01 [place] [address] [facility] [id number] [address] [place] [address] May, Chronic prescription opiate use Z79.899 ; Other chronic pain G89.29 ; Essential hypertension I10 ; Factor V Leiden D68.51 ; Anticoagulant long-term use Z79.01 ; Pure hypercholesterolemia E78.00 ; Venous stasis ulcers, left I83.029 ; Idiopathic chronic gout of multiple sites without tophus M1A.09X0 and Cellulitis of left lower extremity L03.116 [place] [address] [place] [id number] [address] [place] [address] Apr, Other chronic pain G89.29 [facility] [address] [id number] [address] [place] [address] Mar, Other chronic pain G89.29 [facility] [address] [id number] [address] [place] [address] Mar, Factor V Leiden D68.51 ; Pur e hypercholesterolemia E78.00 and Other chronic pain G89.29 [facility] [address] [id number] [address] [place] [address] Feb, Other chronic pain G89.29 [facility] [address] [id number] [address] [place] [address] Jan, Idiopathic chronic gout of m ultiple sites without tophus M1A.09X0 [facility] [address] [facility] [id number] [address] [place] [address] Jan, Other chronic pain G89.29 [facility] [address] [id number] [address] [place] [address] Dec, Anticoagulant long-term use Z79.01 ; Factor V Leiden D68.51 and Other chronic pain G89.29 [facility] [address] [id number] [address] [place] [address] Dec, Other chronic pain G89.29 [facility] [address] [id number] [address] [place] [address] Nov, Other chronic pain G89.29 [facility] [address] [id number] [address] [place] [address] Oct, Other chronic pain G89.29 [facility] [address] [facility] [id number] [address] [place] [address] Sep, Anticoagulant long-term use Z79.01 [facility] [address] [facility] [id number] [address] [place] [address] Sep, Chronic prescription opiate use Z79.899 ; Anticoagulant long-term use Z79.01 ; Essential hypertension I10 ; Pure hypercholesterolemia E78.00 ; Factor V Leiden D68.51 ; Venous stasis ulcers, left I83.029 ; Other chronic pain G89.29 and Idiopathic chronic gout of multiple sites without tophus M1A.09X0 [facility] [address] [facility] [id number] [address] [place] [address] Aug, Anticoagulant long-term use Z79.01 [facility] [address] [facility] [id number] [address] [place] [address] Aug, Other chronic pain G89.29 [facility] [address] [facility] [id number] [address] [place] [address] Aug, Essential hypertension I10 a nd Factor V Leiden D68.[id number] [place] [address] [id number] Aug, Acute right ankle pain M25.571 and Tendo nitis of ankle M77.50 [facility] [address] [facility] [id number] [address] [place] [address] Aug, [facility] [address] [facility] [id number] [address] [place] [address] July, Other chronic pain G89.29 [facility] [address] [facility] [id number] [address] [place] [address] Jun, Other chronic pain G89.29 [facility] [address] [id number] [address] [place] [address] Jun, Other chronic pain G89.29 [facility] [address] [facility] [id number] [address] [place] [address] Jun, Anticoagulant long-term use Z79.01 [facility] [address] [facility] [id number] [address] [place] [address] May, Other chronic pain G89.29 [facility] [id number] [place] [address] May, Anticoagulant long-term use Z79.01 [facility] [address] [address] May, Other chronic pain G89.29 [facility] [address] [place] [id number] [address] [place] [address] Apr, Anticoagulant long-term use Z79.01 [facility] [address] [place] [id number] [address] [place] [address] Apr, Other chronic pain G89.29 [facility] [address] [address] Apr, Anticoagulant long-term use Z79.01 and Pure hypercholesterolemia E78.00 [place] [address] [address] Mar, [facility] [address] [address] Mar, Anticoagulant long-term use Z79.01 [facility] [address] [address] Mar, Other chronic pain G89.29 [facility] [address] [place] [id number] [address] [place] [address] Feb, Essential hypertension I10 ; Chronic prescription opiate use Z79.899 ; Other chronic pain G89.29 ; Screening Z13.9 ; Factor V Leiden D68.51 ; Anticoagulant long-term use Z79.01 ; Venous stasis dermatitis of left lower extremity I83.12 and Pure hypercholesterolemia E78.00 [place] [address] [address] 14 Jan, 2016 Anticoagulant long-term use Z79.01 [facility] [address] [place] [id number] [address] [place] [address] 10 Jan, 2016 Anticoagulant long-term use Z79.01 [facility] [address] [place] [id number] [address] [place] [address] Jan, [facility] [address] [facility] [id number] [address] [place] [address] Jan, [facility] [address] [facility] [id number] [address] [place] [address] Dec, [facility] [address] [facility] [id number] [address] [place] [address] Nov, [facility] [address] [facility] [id number] [address] [place] [address] Oct, Anticoagulant long-term use Z79.01 [facility] [address] [facility] [id number] [address] [place] [address] Oct, [facility] [address] [facility] [id number] [place] [address] Oct, Anticoagulant long-term use Z79.01 [facility] [address] [facility] [id number] [address] [place] [address] Sep, [facility] [address] [facility] [id number] [address] [place] [address] Aug, [facility] [address] [place] [id number] [place] [address] Aug, Chronic prescription opiate use Z79.899 ; Other chronic pain G89.29 ; Essential hypertension I10 and Pure hypercholesterolemia E78.0 [facility] [address] [facility] [id number] [address] [place] [address] July, Hyperlipidemia, group D E78. 3 and Anticoagulant long-term use Z79.01 [facility] [address] [facility] [id number] [address] [place] [address] July, Hyperlipidemia, group D E78. 3 ; Essential hypertension I10 and Factor V Leiden D68.51 [facility] [address] [facility] [id number] [address] [place] [address] July, Essential hypertension I10 [place] [address] [facility] [id number] [address] [place] [address] Jun, Hyperlipidemia, group D E78. 3 [facility] [address] [facility] [id number] [address] [place] [address] Jun, Factor V Leiden D68.51 [facility] [address] [facility] [id number] [address] [place] [address] May, Factor V Leiden D68.51 ; Hyp erlipidemia, group D E78.3 ; Essential hypertension I10 ; Other chronic pain G89.29 and Anticoagulant long-term use Z79.01 [facility] [address] [facility] [id number] [address] [place] [address] 04 May, 2015 Anticoagulant long-term use Z79.01 [place] [address] [facility] [id number] [address] [place] [address] May, Anticoagulant long-term use Z79.01 [facility] [address] [facility] [id number] [address] [place] [address] May, [facility] [address] [facility] [id number] [address] [place] [address] Apr, [facility] [address] [place] [id number] [address] [place] [address] Mar, [place] [address] [facility] [id number] [address] [place] [address] Mar, [facility] [address] [facility] [id number] [address] [place] [address] Feb, Anticoagulant long-term use Z79.01 [facility] [address] [facility] [id number] [address] [place] [address] Feb, Chronic prescription opiate use Z79.899 ; Other chronic pain G89.29 ; Hyperlipidemia, group D E78.3 ; Factor V Leiden D68.51 and Anticoagulant long- term use Z79.01 [facility] [address] [facility] [id number] [address] [place] [address] Feb, [facility] [address] [facility] [id number] [address] [place] [address] Jan, [facility] [address] [facility] [id number] [address] [place] [address] Dec, Hyperlipidemia, unspecified E78.5 [facility] [address] [facility] [id number] [address] [place] [address] Dec, Cellulitis of left lower ext remity L03.116 ; Venous stasis ulcers, left I83.029 and Factor V Leiden D68.51 [facility] [address] [facility] [id number] [address] [place] [address] Dec, Hyperlipidemia 272.4 and Fac tor 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 [facility] [address] [facility] [id number] [address] [place] [address] Dec, [facility] [address] [facility] [id number] [address] [place] [address] Nov, 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 [facility] [address] [facility] [id number] [address] [place] [address] Nov, [facility] [address] [facility] [id number] [address] [place] [address] Nov, [facility] [address] [facility] [id number] [address] [place] [id number] Nov, [facility] [address] [facility] [id number] [address] [place] [id number] Oct, [facility] [address] [facility] [id number] [address] [place] [id number] Oct, Hyperlipidemia 272.4 ; Chron ic pain disorder 338.4 ; Venous stasis ulcer of left lower extremity 454.0 and 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 [facility] [address] [facility] [id number] [address] [place] [id number] Sep, [facility] [address] [facility] [id number] [address] [place] [id number] 13 Sep, 2014 [facility] [address] [facility] [id number] [address] [place] [id number] Sep, Hyperlipidemia 272.4 and Fac tor V Leiden 289.81 [facility] [address] [facility] [id number] [address] [place] [phone] Aug, [facility] [address] [facility] [id number] [address] [place] [id number] Aug, 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 [facility] [address] [facility] [id number] [address] [place] [id number] July, [facility] [address] [facility] [id number] [address] [place] [id number] July, Essential hypertension, fito gn 401.1 ; 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 ; Chronic pain disorder 338.4 ; Hyperlipidemia 272.4 and Venous stasis ulcer of left lower extremity 454.0 [facility] [address] [facility] [id number] [address] [place] [id number] Jun, [facility] [address] [facility] [id number] [address] [place] [id number] Jun, [facility] [address] [facility] [facility] [id number] [address] [place] [address] May, [facility] [address] [facility] [id number] [address] [place] [address] May, [facility] [address] [facility] [id number] [address] [place] [address] Apr, [facility] [address] [facility] [id number] [address] [place] [id number] Apr, [facility] [address] [facility] [id number] [address] [place] [address] Apr, [facility] [address] [facility] [id number] [address] [place] [id number] Apr, [facility] [address] [id number] [address] [place] [address], [place] [address] Apr, [facility] [address] [id number] [address] [place] [address], [place] [address] Apr, [facility] [address] [id number] [address] [place] [address], [place] [address] 15 Mar, 2014 [facility] [address] [id number] [address] [place] [address], [place] [address] Mar, [facility] [address] [id number] [address] [place] [address], [place] [address] Mar, [facility] [address] [id number] [address] [place] [address], [place] [address] Mar, [facility] [address] [id number] [address] [place] [address], [place] [address] 17 Feb, 2014 [facility] [address] [id number] [address] [place] [address], [place] [address] 17 Feb, 2014 [facility] [address] [id number] [address] [place] [address], [place] [address] 16 Feb, 2014 [facility] [address] [id number] [address] [place] [address], [place] [address] Feb, [facility] [address] [id number] [address] [place] [address], [place] [address] 24 Jan, 2014 [facility] [address] [id number] [address] [place] [address], [place] [address] Jan, [facility] [address] [id number] [address] [place] [address], [place] [address] 19 Jan, 2014 [facility] [address] [id number] [address] [place] [address], [place] [address] 14 Jan, 2014 [facility] [address] [id number] [address] [place] [address], [place] [address] 14 Jan, 2014 [facility] [address] [id number] [address] [place] [id number] Jan, [facility] [address] [id number] [address] [place] [address], [place] [address] Dec, [facility] [address] [id number] [address] [place] [address], [place] [address] Dec, [facility] [address] [id number] [address] [place] [address], [place] [address] Oct, [facility] [address] [id number] [address] [place] [address], [place] [address] Oct, [facility] [address] [id number] [address] [place] [address], [place] [address] Sep, [facility] [address] [id number] [address] [place] [address], [place] [address] Sep, [facility] [address] [id number] [address] [place] [address], [place] [address] Sep, [facility] [address] [id number] [address] [place] [address], [place] [address] Sep, [facility] [address] [id number] [address] [place] [address], [place] [address] Aug, [facility] [address] [id number] [address] [place] [address], [place] [address] Aug, [facility] [address] [id number] [address] [place] [address], [place] [address] July, [facility] [address] [id number] [address] [place] [address], [place] [address] July, [facility] [address] [id number] [address] [place] [address], [place] [address] Jun, [facility] [address] [id number] [address] [place] [address], [place] [address] Jun, [facility] [address] [id number] [address] [place] [address], [place] [address] May, [facility] [address] [id number] [address] [place] [address], [place] [address] May, [facility] [address] [id number] [address] [place] [address], [place] [address] Apr, [facility] [address] [id number] [address] [place] [address], [place] [address] Apr, [facility] [address] [id number] [address] [place] [address], [place] [address] Mar, [facility] [address] [id number] [address] [place] [address], [place] [address] Mar, [facility] [address] [id number] [address] [place] [address], [place] [address] Jan, [facility] [address] [id number] [address] [place] [address], [place] [address] Jan, [facility] [address] [id number] [address] [place] [address], [place] [address] Jan, [facility] [address] [id number] [address] [place] [address], [place] [address] Jan, [facility] [address] [id number] [address] [place] [address], [place] [address] Jan, [facility] [address] [id number] [address] [place] [address], [place] [address] Dec, [facility] [address] [id number] [address] [place] [address], [place] [address] Dec, [facility] [address] [id number] [address] [place] [address], [place] [address] Dec, [facility] [address] [id number] [address] [place] [address], [place] [address] Nov, [facility] [address] [id number] [address] [place] [address], [place] [address] Nov, [facility] [address] [id number] [address] [place] [address], [place] [address] Sep, [facility] [address] [id number] [address] [place] [address] Sep, [facility] [address] [facility] [id number] [address] [place] [address] Aug, [facility] [address] [facility] [id number] [address] [place] [address] Aug, [facility] [address] [id number] [place] [id number] July, [facility] [address] [id number] [place] [id number] Jun, [facility] [address] [id number] [place] [id number] Apr, [facility] [address] [id number] [place] [id number] Mar, [facility] [address] [id number] [address] [place] [address] Mar, [facility] [address] [id number] [place] [id number] Mar, [facility] [address] [facility] [id number] [address] [place] [address] Mar, [facility] [address] [id number] [place] [id number] Feb, [facility] [address] [facility] [id number] [address] [place] [address] Feb, [facility] [address] [id number] [place] [id number] Feb, [facility] [address] [id number] [address] [place] [address] Feb, [facility] [address] [id number] [place] [id number] Oct, [facility] [address] [id number] [place] [id number] Oct, [facility] [place] [address] [id number] [place] [id number] July, [facility] [place] [address] [id number] [place] [id number] July, [facility] [place] [address] [id number] [place] [id number] Jun, [facility] [place] [address] [id number] [place] [id number] Jun, [facility] [place] [address] [id number] [place] [id number] Jun, [facility] [place] [address] [id number] [place] [id number] Mar, [facility] [place] [address] [id number] [place] [id number] Mar, [facility] [address] [facility] [id number] [address] [place] [address] Feb, [facility] [address] [facility] [id number] [address] [place] [address] Feb, [facility] [address] [facility] [id number] [address] [place] [address] Jan, [facility] [address] [place] [id number] [address] [place] [address] Jan, [facility] [address] [facility] [id number] [address] [place] [address] Jan, [facility] [address] [facility] [id number] [address] [place] [address] Jan, [facility] [address] [facility] [id number] [address] [place] [address] Jan, [facility] [address] [facility] [id number] [address] [place] [address] Aug, [facility] [address] [facility] [id number] [address] [place] [address] Apr, IMMUNIZATIONS No Known Immunizations SOCIAL HISTORY Never Assessed REASON FOR VISIT Requests return call PLAN OF CARE VITAL SIGNS MEDICATIONS Unknown [...]
--- OUTSIDE RECORDS SUMMARY | 2019-11-08 13:05 | XMS REPORT ---
Author Author Zana Mojica Doctor Organization [facility] Address Unknown Phone Unavailable Care Team Providers Care [employer]liance [employer] Counter Clerk Name Role Phone Migration, Doctor Unavailable Unavailable PROBLEMS Type Condition ICD9-CM Code [id number] Code Onset Dates Condition S tatus SNOMED Code Problem Factor V Leiden D68.51 Active 3070 03254 Problem Anticoagulant long-term use Z79.01 Ac tive 196955912 Problem Post-phlebitic syndrome I87.009 Active 75852659 Problem 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 11604296 Problem Other chronic pain G89.29 Active 8 7611971 Problem Venous stasis ulcers, left I83.029 Act ozzy 976055769 Problem Essential hypertension I10 Active 52874307 Problem Venous anomaly Q27.9 Active 58935 4003 Problem Congenital single kidney Q60.0 Activ e 15654828 Problem Chronic prescription opiate use Z79.899 Active 315158312 Problem Pure hypercholesterolemia E78.00 Acti ve [id number] ALLERGIES No Information ENCOUNTERS Encounter Location Date Diagnosis [facility] [address] [facility] [id number] [address] [place] [id number] Aug, [facility] [address] [facility] [id number] [address] [place] [id number] Jun, Other chronic pain G89.29 [facility] [address] [facility] [id number] [address] [place] [address] Jun, [facility] [address] [facility] [id number] [address] [place] [address] Jun, [place] [id number] [facility] [id number] [place] [id number] Jun, Anticoagulant long-term use Z79.01 and I diopathic chronic gout of multiple sites without tophus M1A.09X0 [facility] [address] [facility] [id number] [address] [place] [address] May, Other chronic pain G89.29 [place] [address] [facility] [id number] [address] [place] [address] May, [facility] [address] [facility] [id number] [address] [place] [address] May, Anticoagulant long-term use Z79.01 [facility] [address] [place] [id number] [address] [place] [address] May, [facility] [id number] [place] [id number] May, Anticoagulant long-term use Z79.01 [place] [address] [place] [address] May, Anticoagulant long-term use Z79.01 [place] [address] [place] [id number] [address] [place] [address] May, Anticoagulant long-term use Z79.01 [facility] [address] [id number] [place] [id number] May, Factor V Leiden D68.51 [place] [address] [place] [address] Apr, Other chronic pain G89.29 [place] [address] [place] [address] Apr, Idiopathic chronic gout of m ultiple sites without tophus M1A.09X0 [facility] [address] [id number] [place] [id number] Apr, Anticoagulant long-term use Z79.[address] [facility] [address] [id number] [place] [id number] Apr, Anticoagulant long-term use Z79.01 ; Med ication side effect T88.7XXA and Idiopathic chronic gout of multiple sites without tophus M1A.09X0 [place] [address] [place] [address] Apr, [place] [address] [address] Apr, Anticoagulant long-term use Z79.01 [place] [address] [place] [id number] [address] [place] [address] Apr, Medication side effect T88.7 XXA and Factor V Leiden D68.51 [place] [address] [place] [id number] [address] [place] [address] Apr, Idiopathic chronic gout of m ultiple sites without tophus M1A.09X0 and Anticoagulant long-term use Z79.01 [facility] [address] [id number] [place] [id number] Mar, Factor V Leiden D68.51 and Anticoagulant long-term use Z79.01 [place] [address] [place] [id number] [address] [place] [address] Mar, Factor V Leiden D68.51 ; Ant icoagulant long-term use Z79.01 ; Idiopathic chronic gout of multiple sites without tophus M1A.09X0 ; Pure hypercholesterolemia E78.00 ; Other chronic pain G89.29 and BMI 40.0-44.9, adult Z68.41 [place] [id number] [address] [place] [address] Mar, [place] [address] [place] [id number] [address] [place] [address] Mar, Other chronic pain G89.29 [place] [address] [address] Feb, Idiopathic chronic gout of m ultiple sites without tophus M1A.09X0 [facility] [address] [id number] [place] [id number] Feb, Anticoagulant long-term use Z79.01 and I diopathic chronic gout of multiple sites without tophus M1A.09X0 [facility] [address] [id number] [address] [place] [id number] 05 Feb, 2018 Anticoagulant long-term use Z79.01 and Idiopathic chronic gout of multiple sites without tophus M1A.09X0 [facility] [address] [id number] [address] [place] [address] Feb, [facility] [address] [id number] [address] [place] [address] Feb, Other chronic pain G89.29 [facility] [address] [id number] [address] [place] [address] Jan, Other chronic pain G89.29 [facility] [address] [id number] [address] [place] [id number] Dec, Other chronic pain G89.29 [facility] [address] [id number] [address] [place] [address] Dec, Anticoagulant long-term use Z79.01 [facility] [address] [id number] [address] [place] [address] Dec, Chronic prescription opiate use Z79.899 ; Factor V Leiden D68.51 ; Other chronic pain G89.29 and Anticoagulant long-term use Z79.01 [facility] [address] [id number] [address] [place] [address] Nov, Other chronic pain G89.29 [facility] [address] [id number] [address] [place] [address] Oct, Other chronic pain G89.29 [facility] [address] [id number] [address] [place] [address] Sep, Other chronic pain G89.29 [facility] [address] [id number] [address] [place] [address] Aug, Other chronic pain G89.29 [facility] [address] [id number] [address] [place] [address] Aug, Venous stasis ulcers, left I 83.029 [facility] [address] [facility] [id number] [address] [place] [address] July, Other chronic pain G89.29 [facility] [address] [facility] [id number] [address] [place] [address] July, Venous stasis ulcers, left I 83.029 and Snoring R06.83 [facility] [address] [facility] [id number] [address] [place] [address] Jun, Idiopathic chronic gout of m ultiple sites without tophus M1A.09X0 [place] [address] [facility] [id number] [address] [place] [address] Jun, Acute renal insufficiency N2 8.9 [facility] [address] [facility] [id number] [address] [place] [address] Jun, Other chronic pain G89.29 [facility] [address] [facility] [id number] [address] [place] [address] Jun, Acute renal insufficiency N2 8.9 [place] [id number] [facility] [id number] [place] [address] [id number] Jun, Idiopathic chronic gout of multiple site s without tophus M1A.09X0 ; Essential hypertension I10 and Anticoagulant long-term use Z79.01 [place] [address] [facility] [id number] [address] [place] [address] Jun, Anticoagulant long-term use Z79.01 and Essential hypertension I10 [facility] [address] [facility] [id number] [address] [place] [address] May, Idiopathic chronic gout of m ultiple sites without tophus M1A.09X0 [facility] [address] [facility] [id number] [address] [place] [address] May, [facility] [address] [facility] [id number] [address] [place] [address] May, Essential hypertension I10 ; Pure hypercholesterolemia E78.00 ; Anticoagulant long-term use Z79.01 and Idiopathic chronic gout of multiple sites without tophus M1A.09X0 [place] [address] [facility] [id number] [address] [place] [address] May, Other chronic pain G89.29 [place] [address] [facility] [id number] [address] [place] [address] May, Anticoagulant long-term use Z79.01 [place] [address] [facility] [id number] [address] [place] [address] May, Chronic prescription opiate use Z79.899 ; Other chronic pain G89.29 ; Essential hypertension I10 ; Factor V Leiden D68.51 ; Anticoagulant long-term use Z79.01 ; Pure hypercholesterolemia E78.00 ; Venous stasis ulcers, left I83.029 ; Idiopathic chronic gout of multiple sites without tophus M1A.09X0 and Cellulitis of left lower extremity L03.116 [place] [address] [facility] [id number] [address] [place] [address] Apr, Other chronic pain G89.29 [place] [address] [facility] [id number] [address] [place] [address] Mar, Other chronic pain G89.29 [place] [address] [facility] [id number] [address] [place] [address] Mar, Factor V Leiden D68.51 ; Pur e hypercholesterolemia E78.00 and Other chronic pain G89.29 [place] [address] [facility] [id number] [address] [place] [address] Feb, Other chronic pain G89.29 [place] [address] [facility] [id number] [address] [place] [address] Jan, Idiopathic chronic gout of m ultiple sites without tophus M1A.09X0 [place] [address] [facility] [id number] [address] [place] [address] Jan, Other chronic pain G89.29 [facility] [address] [facility] [id number] [address] [place] [address] Dec, Anticoagulant long-term use Z79.01 ; Factor V Leiden D68.51 and Other chronic pain G89.29 [facility] [address] [facility] [id number] [address] [place] [address] Dec, Other chronic pain G89.29 [facility] [address] [facility] [id number] [address] [place] [address] Nov, Other chronic pain G89.29 [place] [address] [facility] [id number] [address] [place] [address] Oct, Other chronic pain G89.29 [facility] [address] [facility] [id number] [address] [place] [address] Sep, Anticoagulant long-term use Z79.01 [place] [address] [facility] [id number] [address] [place] [address] Sep, Chronic prescription opiate use Z79.899 ; Anticoagulant long-term use Z79.01 ; Essential hypertension I10 ; Pure hypercholesterolemia E78.00 ; Factor V Leiden D68.51 ; Venous stasis ulcers, left I83.029 ; Other chronic pain G89.29 and Idiopathic chronic gout of multiple sites without tophus M1A.09X0 [place] [address] [facility] [id number] [address] [place] [address] Aug, Anticoagulant long-term use Z79.01 [place] [address] [facility] [id number] [address] [place] [id number] Aug, Other chronic pain G89.29 [place] [address] [facility] [id number] [address] [place] [address] Aug, Essential hypertension I10 a nd Factor V Leiden D68.51 [facility] [address] [id number] [place] [id number] 15 Aug, 2016 Acute right ankle pain M25.571 and Tendo nitis of ankle M77.50 [facility] [address] [facility] [id number] [address] [place] [address] Aug, [facility] [address] [facility] [id number] [address] [place] [address] July, Other chronic pain G89.29 [facility] [address] [id number] [address] [place] [address] Jun, Other chronic pain G89.29 [facility] [address] [id number] [address] [place] [address] Jun, Other chronic pain G89.29 [facility] [address] [facility] [id number] [address] [place] [address] Jun, Anticoagulant long-term use Z79.01 [facility] [address] [facility] [id number] [address] [place] [address] May, Other chronic pain G89.29 [facility] [address] [id number] [address] [place] [address] May, Anticoagulant long-term use Z79.01 [facility] [address] [facility] [id number] [address] [place] [address] May, Other chronic pain G89.29 [facility] [address] [facility] [id number] [address] [place] [id number] Apr, Anticoagulant long-term use Z79.01 [facility] [address] [id number] [address] [place] [address] Apr, Other chronic pain G89.29 [facility] [address] [id number] [address] [place] [address] Apr, Anticoagulant long-term use Z79.01 and Pure hypercholesterolemia E78.00 [facility] [address] [id number] [address] [place] [id number] Mar, [facility] [address] [facility] [id number] [address] [place] [id number] 16 Mar, 2016 Anticoagulant long-term use Z79.01 [facility] [address] [facility] [id number] [address] [place] [id number] 04 Mar, 2016 Other chronic pain G89.29 [facility] [address] [facility] [id number] [address] [place] [id number] 08 Feb, 2016 Essential hypertension I10 ; Chronic prescription opiate use Z79.899 ; Other chronic pain G89.29 ; Screening Z13.9 ; Factor V Leiden D68.51 ; Anticoagulant long-term use Z79.01 ; Venous stasis dermatitis of left lower extremity I83.12 and Pure hypercholesterolemia E78.00 [facility] [address] [id number] [address] [place] [address] 14 Jan, 2016 Anticoagulant long-term use Z79.01 [facility] [address] [facility] [id number] [address] [place] [address] Jan, Anticoagulant long-term use Z79.01 [facility] [address] [facility] [id number] [address] [place] [address] Jan, [facility] [address] [facility] [id number] [address] [place] [address] Jan, [facility] [address] [facility] [id number] [address] [place] [address] Dec, [facility] [address] [facility] [id number] [address] [place] [address] Nov, [facility] [address] [facility] [id number] [address] [place] [address] Oct, Anticoagulant long-term use Z79.01 [facility] [address] [facility] [id number] [address] [place] [address] Oct, [facility] [address] [facility] [id number] [address] [place] [id number] Oct, Anticoagulant long-term use Z79.01 [facility] [address] [facility] [id number] [address] [place] [address] Sep, [facility] [address] [place] [id number] [address] [place] [address] Aug, [place] [address] [address] Aug, Chronic prescription opiate use Z79.899 ; Other chronic pain G89.29 ; Essential hypertension I10 and Pure hypercholesterolemia E78.0 [place] [address] [address] July, Hyperlipidemia, group D E78. 3 and Anticoagulant long-term use Z79.01 [place] [address] [address] July, Hyperlipidemia, group D E78. 3 ; Essential hypertension I10 and Factor V Leiden D68.51 [place] [address] [address] July, Essential hypertension I10 [place] [address] [address] Jun, Hyperlipidemia, group D E78. 3 [place] [address] [address] Jun, Factor V Leiden D68.51 [place] [address] [address] May, Factor V Leiden D68.51 ; Hyp erlipidemia, group D E78.3 ; Essential hypertension I10 ; Other chronic pain G89.29 and Anticoagulant long-term use Z79.01 [place] [address] [place] [id number] [address] [place] [address] May, Anticoagulant long-term use Z79.01 [place] [address] [place] [id number] [address] [place] [address] May, Anticoagulant long-term use Z79.01 [place] [address] [address] May, [facility] [address] [address] Apr, [facility] [address] [address] Mar, [facility] [address] [address] Mar, [facility] [address] [address] Feb, Anticoagulant long-term use Z79.01 [place] [address] [address] 16 Feb, 2015 Chronic prescription opiate use Z79.899 ; Other chronic pain G89.29 ; Hyperlipidemia, group D E78.3 ; Factor V Leiden D68.51 and Anticoagulant long- term use Z79.01 [place] [address] [address] Feb, [facility] [address] [address] Jan, [place] [address] [address] Dec, Hyperlipidemia, unspecified E78.5 [place] [address] [address] Dec, Cellulitis of left lower ext remity L03.116 ; Venous stasis ulcers, left I83.029 and Factor V Leiden D68.51 [place] [address] [address] 09 Dec, 2014 Hyperlipidemia 272.4 and Fac tor V Leiden 289.81 [place] [address] [id number] 07 Dec, 2014 [facility] [address] [address] Nov, 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 [facility] [address] [facility] [id number] [address] [place] [address] Nov, [facility] [address] [place] [id number] [address] [place] [address] Nov, [facility] [address] [place] [id number] [place] [id number] Nov, [facility] [address] [place] [id number] [address] [place] [address] Oct, [facility] [address] [facility] [id number] [place] [address] Oct, Hyperlipidemia 272.4 ; Chron ic pain disorder 338.4 ; Venous stasis ulcer of left lower extremity 454.0 and 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 [facility] [address] [place] [id number] [address] [place] [address] Sep, [facility] [address] [place] [id number] [address] [place] [address] Sep, [facility] [address] [address] Sep, Hyperlipidemia 272.4 and Fac tor V Leiden 289.81 [facility] [address] [place] [address] Aug, [facility] [address] [place] [address] Aug, 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 [facility] [address] [place] [id number] [address] [place] [address] July, [facility] [address] [address] July, Essential hypertension, fito gn 401.1 ; 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 ; Chronic pain disorder 338.4 ; Hyperlipidemia 272.4 and Venous stasis ulcer of left lower extremity 454.0 [facility] [address] [id number] [address] [place] [address], [place] [address] 14 Jun, 2014 [facility] [address] [id number] [address] [place] [address], [place] [address] 13 Jun, 2014 [facility] [address] [id number] [address] [place] [address], [place] [address] 13 May, 2014 [facility] [address] [id number] [address] [place] [address], [place] [address] May, [facility] [address] [id number] [address] [place] [address], [place] [address] 20 Apr, 2014 [facility] [address] [id number] [address] [place] [address], [place] [address] 20 Apr, 2014 [facility] [address] [id number] [address] [place] [address], [place] [address] 18 Apr, 2014 [facility] [address] [id number] [address] [place] [address], [place] [address] 18 Apr, 2014 [facility] [address] [id number] [address] [place] [address], [place] [address] Apr, [facility] [address] [id number] [address] [place] [address], [place] [address] 13 Apr, 2014 [facility] [address] [id number] [address] [place] [address], [place] [address] 15 Mar, 2014 [facility] [address] [id number] [address] [place] [address], [place] [address] Mar, [facility] [address] [id number] [address] [place] [address], [place] [address] Mar, [facility] [address] [id number] [address] [place] [address], [place] [address] Mar, [facility] [address] [id number] [address] [place] [address], [place] [address] Feb, [facility] [address] [id number] [address] [place] [address], [place] [address] Feb, [facility] [address] [id number] [address] [place] [address], [place] [address] Feb, [facility] [address] [id number] [address] [place] [address], [place] [address] Feb, [facility] [address] [id number] [address] [place] [address], [place] [address] Jan, [facility] [address] [id number] [address] [place] [address], [place] [address] Jan, [facility] [address] [id number] [address] [place] [address], [place] [address] Jan, [facility] [address] [id number] [address] [place] [address], [place] [address] Jan, [facility] [address] [id number] [address] [place] [address], [place] [address] Jan, [facility] [address] [id number] [address] [place] [address], [place] [address] Jan, [facility] [address] [id number] [address] [place] [address], [place] [address] Dec, [facility] [address] [id number] [address] [place] [address], [place] [address] Dec, [facility] [address] [id number] [address] [place] [address], [place] [address] Oct, [facility] [address] [id number] [address] [place] [address], [place] [address] Oct, [facility] [address] [id number] [address] [place] [address], [place] [address] Sep, [facility] [address] [id number] [address] [place] [address], [place] [address] Sep, [facility] [address] [id number] [address] [place] [address], [place] [address] Sep, [facility] [address] [id number] [address] [place] [address], [place] [address] Sep, [facility] [address] [id number] [address] [place] [address], [place] [address] Aug, [facility] [address] [id number] [address] [place] [address], [place] [address] Aug, [facility] [address] [id number] [address] [place] [address], [place] [address] July, [facility] [address] [id number] [address] [place] [address], [place] [address] July, [facility] [address] [id number] [address] [place] [address], [place] [address] Jun, [facility] [address] [id number] [address] [place] [address], [place] [address] Jun, [facility] [address] [id number] [address] [place] [address], [place] [address] May, [facility] [address] [id number] [address] [place] [address], [place] [address] May, [facility] [address] [id number] [address] [place] [address], [place] [address] Apr, [facility] [address] [id number] [address] [place] [address], [place] [address] Apr, [facility] [address] [id number] [address] [place] [address], [place] [address] Mar, [facility] [address] [id number] [address] [place] [address], [place] [address] Mar, [facility] [address] [id number] [address] [place] [address], [place] [address] Jan, [facility] [address] [id number] [address] [place] [address], [place] [address] Jan, [facility] [address] [id number] [address] [place] [address], [place] [address] Jan, [facility] [address] [id number] [address] [place] [address], [place] [address] Jan, [facility] [address] [id number] [address] [place] [address], [place] [address] Jan, [facility] [address] [id number] [address] [place] [address], [place] [address] Dec, [facility] [address] [id number] [address] [place] [address], [place] [address] Dec, [facility] [address] [id number] [address] [place] [address], [place] [address] Dec, [facility] [address] [id number] [address] [place] [address], [place] [address] Nov, [facility] [address] [id number] [address] [place] [address], [place] [address] Nov, [facility] [address] [id number] [address] [place] [address], [place] [address] Sep, [facility] [address] [id number] [address] [place] [address], [place] [address] Sep, [facility] [address] [id number] [address] [place] [address] Aug, [facility] [address] [id number] [address] [place] [address] Aug, [facility] [place] [address] [id number] [place] [id number] July, [facility] [address] [id number] [place] [id number] Jun, [facility] [address] [id number] [place] [id number] Apr, [facility] [place] [address] [id number] [place] [id number] Mar, [facility] [address] [id number] [address] [place] [address] Mar, [facility] [place] [address] [id number] [place] [id number] Mar, [facility] [address] [facility] [id number] [address] [place] [address] Mar, [facility] [place] [address] [id number] [place] [id number] Feb, [facility] [address] [facility] [id number] [address] [place] [address] Feb, [facility] [address] [id number] [place] [id number] Feb, [facility] [address] [facility] [id number] [address] [place] [address] Feb, [facility] [place] [address] [id number] [place] [id number] Oct, [facility] [place] [address] [id number] [place] [id number] Oct, [facility] [place] [address] [id number] [place] [id number] July, [facility] [place] [address] [id number] [place] [id number] July, [facility] [place] [address] [id number] [place] [id number] Jun, [facility] [place] [address] [id number] [place] [id number] Jun, [facility] [place] [address] [id number] [place] [id number] Jun, [facility] [place] [address] [id number] [place] [id number] Mar, [facility] [place] [address] [id number] [place] [id number] Mar, [facility] [address] [facility] [id number] [address] [place] [address] Feb, [facility] [address] [facility] [id number] [address] [place] [address] Feb, [facility] [address] [id number] [address] [place] [address] Jan, [facility] [address] [id number] [address] [place] [address] Jan, [facility] [address] [id number] [address] [place] [address] Jan, [facility] [address] [id number] [address] [place] [address] Jan, [facility] [address] [id number] [address] [place] [address] Jan, [facility] [address] [id number] [address] [place] [id number] Aug, [facility] [address] [id number] [address] [place] [id number] 17 Apr, 2010 IMMUNIZATIONS No Known Immunizations SOCIAL HISTORY Never Assessed REASON FOR VISIT [place] [place] VITAL SIGNS MEDICATIONS Unknown [...] History Blood clot removed from left leg 2000
--- OUTSIDE RECORDS SUMMARY | 2019-11-08 13:05 | XMS REPORT ---
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 55119873 Problem Other chronic pain G89.29 Active 8 5268031 Problem Venous stasis ulcers, left I83.029 Act ozzy 570990698 Problem Essential hypertension I10 Active 07855126 Problem Venous anomaly Q27.9 Active 53889 4003 Problem Congenital single kidney Q60.0 Activ e 20249358 Problem Chronic prescription opiate use Z79.899 Active 642229345 Problem Pure hypercholesterolemia E78.00 Acti ve [id number] ALLERGIES No Information ENCOUNTERS Encounter Location Date Diagnosis [facility] [address] [facility] [id number] [address] [place] [address] Jun, [place] [id number] [place] [id number] Jun, Anticoagulant long-term use Z79.01 and I diopathic chronic gout of multiple sites without tophus M1A.09X0 [facility] [address] [facility] [id number] [address] [place] [address] May, Other chronic pain G89.29 [facility] [address] [facility] [id number] [address] [place] [address] May, [facility] [address] [facility] [id number] [address] [place] [address] May, Anticoagulant long-term use Z79.01 [facility] [address] [facility] [id number] [address] [place] [address] May, [facility] [address] [id number] [id number] May, Anticoagulant long-term use Z79.01 [place] [address] [facility] [id number] [address] [place] [address] May, Anticoagulant long-term use Z79.01 [place] [address] [facility] [id number] [address] [place] [address] May, Anticoagulant long-term use Z79.01 [facility] [address] [id number] [id number] May, Factor V Leiden D68.51 [place] [address] [facility] [id number] [address] [place] [address] Apr, Other chronic pain G89.29 [place] [address] [place] [id number] [address] [place] [address] Apr, Idiopathic chronic gout of m ultiple sites without tophus M1A.09X0 [facility] [address] [id number][place] [id number] Apr, Anticoagulant long-term use Z79.01 [facility] [address] [id number][place] [id number] Apr, Anticoagulant long-term use Z79.01 ; Med ication side effect T88.7XXA and Idiopathic chronic gout of multiple sites without tophus M1A.09X0 [place] [address] [facility] [id number] [address] [place] [address] Apr, [place] [address] [facility] [id number] [address] [place] [phone] 14 Apr, 2018 Anticoagulant long-term use Z79.01 [place] [address] [facility] [id number] [address] [place] [address] Apr, Medication side effect T88.7 XXA and Factor V Leiden D68.51 [place] [address] [facility] [id number] [address] [place] [phone] Apr, Idiopathic chronic gout of m ultiple sites without tophus M1A.09X0 and Anticoagulant long-term use Z79.01 [facility] [address] [id number] [id number] Mar, Factor V Leiden D68.51 and Anticoagulant long-term use Z79.01 [place] [address] [facility] [id number] [address] [place] [address] Mar, Factor V Leiden D68.51 ; Ant icoagulant long-term use Z79.01 ; Idiopathic chronic gout of multiple sites without tophus M1A.09X0 ; Pure hypercholesterolemia E78.00 ; Other chronic pain G89.29 and BMI 40.0-44.9, adult Z68.41 [place] [address] [facility] [id number] [address] [place] [address] Mar, [place] [address] [facility] [id number] [address] [place] [address] Mar, Other chronic pain G89.29 [place] [address] [facility] [id number] [address] [place] [address] Feb, Idiopathic chronic gout of m ultiple sites without tophus M1A.09X0 [place] [address] [facility] [address] [id number][place] [id number] Feb, Anticoagulant long-term use Z79.01 and I diopathic chronic gout of multiple sites without tophus M1A.09X0 [place] [address] [facility] [id number] [address] [place] [address] Feb, Anticoagulant long-term use Z79.01 and Idiopathic chronic gout of multiple sites without tophus M1A.09X0 [place] [address] [facility] [id number] [address] [place] [address] Feb, [facility] [address] [id number] [address] [place] [address] Feb, Other chronic pain G89.29 [facility] [address] [id number] [address] [place] [address] Jan, Other chronic pain G89.29 [facility] [address] [facility] [id number] [address] [place] [address] Dec, Other chronic pain G89.29 [facility] [address] [id number] [address] [place] [address] Dec, Anticoagulant long-term use Z79.01 [facility] [address] [facility] [id number] [address] [place] [address] Dec, Chronic prescription opiate use Z79.899 ; Factor V Leiden D68.51 ; Other chronic pain G89.29 and Anticoagulant long-term use Z79.01 [facility] [address] [facility] [id number] [address] [place] [address] Nov, Other chronic pain G89.29 [facility] [address] [id number] [address] [place] [address] Oct, Other chronic pain G89.29 [facility] [address] [id number] [address] [place] [address] Sep, Other chronic pain G89.29 [facility] [address] [id number] [address] [place] [address] Aug, Other chronic pain G89.29 [facility] [address] [id number] [address] [place] [address] 11 Aug, 2017 Venous stasis ulcers, left I 83.029 [facility] [address] [facility] [id number] [address] [place] [address] July, Other chronic pain G89.29 [facility] [address] [facility] [id number] [address] [place] [address] July, Venous stasis ulcers, left I 83.029 and Snoring R06.83 [facility] [address] [facility] [id number] [address] [place] [id number] Jun, Idiopathic chronic gout of m ultiple sites without tophus M1A.09X0 [facility] [address] [facility] [id number] [address] [place] [address] Jun, Acute renal insufficiency N2 8.9 [facility] [address] [facility] [id number] [address] [place] [address] Jun, Other chronic pain G89.29 [place] [address] [facility] [id number] [address] [place] [address] Jun, Acute renal insufficiency N2 8.9 [place] [address] [facility] [id number] [place] [id number] Jun, Idiopathic chronic gout of multiple site s without tophus M1A.09X0 ; Essential hypertension I10 and Anticoagulant long-term use Z79.01 [place] [address] [facility] [id number] [address] [place] [address] Jun, Anticoagulant long-term use Z79.01 and Essential hypertension I10 [place] [address] [facility] [id number] [address] [place] [phone] May, Idiopathic chronic gout of ultiple sites without tophus M1A.09X0 [place] [address] [facility] [id number] [address] [place] [address] May, [place] [address] [facility] [id number] [address] [place] [address] May, Essential hypertension I10 ; Pure hypercholesterolemia E78.00 ; Anticoagulant long-term use Z79.01 and Idiopathic chronic gout of multiple sites without tophus M1A.09X0 [place] [address] [facility] [id number] [address] [place] [address] May, Other chronic pain G89.29 [place] [address] [facility] [id number] [address] [place] [address] May, Anticoagulant long-term use Z79.01 [place] [address] [facility] [id number] [address] [place] [address] May, Chronic prescription opiate use Z79.899 ; Other chronic pain G89.29 ; Essential hypertension I10 ; Factor V Leiden D68.51 ; Anticoagulant long-term use Z79.01 ; Pure hypercholesterolemia E78.00 ; Venous stasis ulcers, left I83.029 ; Idiopathic chronic gout of multiple sites without tophus M1A.09X0 and Cellulitis of left lower extremity L03.116 [place] [address] [facility] [id number] [address] [place] [address] Apr, Other chronic pain G89.29 [place] [address] [facility] [id number] [address] [place] [address] Mar, Other chronic pain G89.29 [place] [address] [facility] [id number] [address] [place] [address] Mar, Factor V Leiden D68.51 ; Pur e hypercholesterolemia E78.00 and Other chronic pain G89.29 [place] [address] [facility] [id number] [address] [place] [address] Feb, Other chronic pain G89.29 [place] [address] [facility] [id number] [address] [place] [address] Jan, Idiopathic chronic gout of m ultiple sites without tophus M1A.09X0 [place] [address] [facility] [id number] [address] [place] [address] Jan, Other chronic pain G89.29 [place] [address] [facility] [id number] [address] [place] [address] Dec, Anticoagulant long-term use Z79.01 ; Factor V Leiden D68.51 and Other chronic pain G89.29 [place] [address] [facility] [id number] [address] [place] [address] Dec, Other chronic pain G89.29 [facility] [address] [facility] [id number] [address] [place] [address] Nov, Other chronic pain G89.29 [place] [address] [facility] [id number] [address] [place] [address] Oct, Other chronic pain G89.29 [facility] [address] [facility] [id number] [address] [place] [address] Sep, Anticoagulant long-term use Z79.01 [place] [address] [facility] [id number] [address] [place] [address] Sep, Chronic prescription opiate use Z79.899 ; Anticoagulant long-term use Z79.01 ; Essential hypertension I10 ; Pure hypercholesterolemia E78.00 ; Factor V Leiden D68.51 ; Venous stasis ulcers, left I83.029 ; Other chronic pain G89.29 and Idiopathic chronic gout of multiple sites without tophus M1A.09X0 [place] [address] [facility] [id number] [address] [place] [address] Aug, Anticoagulant long-term use Z79.01 [place] [address] [facility] [id number] [address] [place] [address] Aug, Other chronic pain G89.29 [place] [address] [facility] [id number] [address] [place] [address] Aug, Essential hypertension I10 a nd Factor V Leiden D68.[address] [place] [id number] [place] [address] [id number] Aug, Acute right ankle pain M25.571 and Tendo nitis of ankle M77.50 [place] [address] [facility] [id number] [address] [place] [address] Aug, [place] [address] [facility] [id number] [address] [place] [address] July, Other chronic pain G89.29 [place] [address] [facility] [id number] [address] [place] [address] Jun, Other chronic pain G89.29 [facility] [address] [id number] [address] [place] [address] Jun, Other chronic pain G89.29 [facility] [address] [facility] [id number] [address] [place] [address] Jun, Anticoagulant long-term use Z79.01 [facility] [address] [id number] [address] [place] [address] May, Other chronic pain G89.29 [facility] [address] [id number] [address] [place] [address] May, Anticoagulant long-term use Z79.01 [facility] [address] [id number] [address] [place] [address] May, Other chronic pain G89.29 [facility] [address] [facility] [id number] [address] [place] [address] Apr, Anticoagulant long-term use Z79.01 [facility] [address] [id number] [address] [place] [address] Apr, Other chronic pain G89.29 [facility] [address] [id number] [address] [place] [address] Apr, Anticoagulant long-term use Z79.01 and Pure hypercholesterolemia E78.00 [facility] [address] [id number] [address] [place] [address] Mar, [facility] [address] [id number] [address] [place] [address] Mar, Anticoagulant long-term use Z79.01 [facility] [address] [id number] [address] [place] [address] Mar, Other chronic pain G89.29 [facility] [address] [facility] [id number] [address] [place] [address] Feb, Essential hypertension I10 ; Chronic prescription opiate use Z79.899 ; Other chronic pain G89.29 ; Screening Z13.9 ; Factor V Leiden D68.51 ; Anticoagulant long-term use Z79.01 ; Venous stasis dermatitis of left lower extremity I83.12 and Pure hypercholesterolemia E78.00 [facility] [address] [facility] [id number] [address] [place] [address] 14 Jan, 2016 Anticoagulant long-term use Z79.01 [facility] [address] [id number] [address] [place] [id number] 10 Jan, 2016 Anticoagulant long-term use Z79.01 [facility] [address] [id number] [address] [place] [address] 09 Jan, 2016 [facility] [address] [facility] [id number] [address] [place] [address] Jan, [facility] [address] [facility] [id number] [address] [place] [address] Dec, [facility] [address] [facility] [id number] [address] [place] [phone] Nov, [facility] [address] [facility] [id number] [address] [place] [address] Oct, Anticoagulant long-term use Z79.01 [facility] [address] [facility] [id number] [address] [place] [address] Oct, [facility] [address] [facility] [id number] [address] [place] [address] Oct, Anticoagulant long-term use Z79.01 [facility] [address] [facility] [id number] [address] [place] [address] Sep, [facility] [address] [facility] [id number] [address] [place] [address] Aug, [facility] [address] [facility] [id number] [address] [place] [address] Aug, Chronic prescription opiate use Z79.899 ; Other chronic pain G89.29 ; Essential hypertension I10 and Pure hypercholesterolemia E78.0 [facility] [address] [facility] [id number] [address] [place] [address] July, Hyperlipidemia, group D E78. 3 and Anticoagulant long-term use Z79.01 [facility] [address] [facility] [id number] [address] [place] [address] July, Hyperlipidemia, group D E78. 3 ; Essential hypertension I10 and Factor V Leiden D68.51 [facility] [address] [facility] [id number] [address] [place] [address] July, Essential hypertension I10 [place] [address] [facility] [id number] [place] [address] Jun, Hyperlipidemia, group D E78. 3 [place] [address] [place] [id number] [address] [place] [address] Jun, Factor V Leiden D68.51 [place] [id number] [place] [address] May, Factor V Leiden D68.51 ; Hyp erlipidemia, group D E78.3 ; Essential hypertension I10 ; Other chronic pain G89.29 and Anticoagulant long-term use Z79.01 [place] [address] [place] [id number] [address] [place] [address] May, Anticoagulant long-term use Z79.01 [place] [address] [place] [id number] [address] [place] [address] May, Anticoagulant long-term use Z79.01 [place] [address] [facility] [id number] [address] [place] [address] May, [place] [address] [place] [id number] [address] [place] [address] Apr, [place] [address] [place] [id number] [address] [place] [address] Mar, [facility] [address] [place] [id number] [address] [place] [phone] Mar, [facility] [address] [facility] [id number] [address] [place] [address] Feb, Anticoagulant long-term use Z79.01 [facility] [address] [facility] [id number] [address] [place] [id number] 16 Feb, 2015 Chronic prescription opiate use Z79.899 ; Other chronic pain G89.29 ; Hyperlipidemia, group D E78.3 ; Factor V Leiden D68.51 and Anticoagulant long- term use Z79.01 [facility] [address] [facility] [id number] [address] [place] [address] Feb, [facility] [address] [facility] [id number] [address] [place] [address] Jan, [place] [address] [place] [id number] [address] [place] [address] Dec, Hyperlipidemia, unspecified E78.5 [facility] [address] [facility] [id number] [address] [place] [address] Dec, Cellulitis of left lower ext remity L03.116 ; Venous stasis ulcers, left I83.029 and Factor V Leiden D68.51 [facility] [address] [facility] [id number] [address] [place] [address] Dec, Hyperlipidemia 272.4 and Fac tor V Leiden 289.81 [place] [address] [place] [id number] [address] [place] [address] Dec, [place] [address] [facility] [id number] [address] [place] [address] Nov, 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 [place] [address] [facility] [id number] [address] [place] [address] Nov, [place] [address] [facility] [id number] [address] [place] [address] Nov, [facility] [address] [place] [id number] [address] [place] [address] Nov, [facility] [address] [facility] [id number] [address] [place] [address] Oct, [facility] [address] [facility] [id number] [address] [place] [address] Oct, Hyperlipidemia 272.4 ; Chron ic pain disorder 338.4 ; Venous stasis ulcer of left lower extremity 454.0 and 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 [facility] [address] [facility] [id number] [address] [place] [address] Sep, [facility] [address] [facility] [id number] [address] [place] [id number] Sep, [facility] [address] [place] [id number] [address] [place] [id number] Sep, Hyperlipidemia 272.4 and Fac tor V Leiden 289.81 [facility] [address] [place] [id number] [address] [place] [id number] Aug, [facility] [address] [facility] [id number] [address] [place] [id number] Aug, 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 [facility] [address] [facility] [id number] [address] [place] [id number] July, [facility] [address] [place] [id number] [address] [place] [phone] July, Essential hypertension, fito gn 401.1 ; 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 ; Chronic pain disorder 338.4 ; Hyperlipidemia 272.4 and Venous stasis ulcer of left lower extremity 454.0 [facility] [address] [facility] [id number] [address] [place] [id number] Jun, [facility] [address] [place] [id number] [address] [place] [phone] Jun, [facility] [address] [place] [id number] [address] [place] [phone] May, [facility] [address] [id number] [address] [place] [address], [place] [id number] 13 May, 2014 [facility] [address] [id number] [address] [place] [address], [place] [address] Apr, [facility] [address] [id number] [address] [place] [address], [place] [address] 20 Apr, 2014 [facility] [address] [id number] [address] [place] [address], [place] [address] 18 Apr, 2014 [facility] [address] [id number] [address] [place] [address], [place] [address] 18 Apr, 2014 [facility] [address] [id number] [address] [place] [address], [place] [address] Apr, [facility] [address] [id number] [address] [place] [address], [place] [address] Apr, [facility] [address] [id number] [address] [place] [address], [place] [address] 15 Mar, 2014 [facility] [address] [id number] [address] [place] [address], [place] [address] Mar, [facility] [address] [id number] [address] [place] [address], [place] [address] Mar, [facility] [address] [id number] [address] [place] [address], [place] [address] Mar, [facility] [address] [id number] [address] [place] [address], [place] [address] Feb, [facility] [address] [id number] [address] [place] [address], [place] [address] Feb, [facility] [address] [id number] [address] [place] [address], [place] [address] Feb, [facility] [address] [id number] [address] [place] [address], [place] [address] Feb, [facility] [address] [id number] [address] [place] [address], [place] [address] Jan, [facility] [address] [id number] [address] [place] [address], [place] [address] Jan, [facility] [address] [id number] [address] [place] [address], [place] [address] Jan, [facility] [address] [id number] [address] [place] [address], [place] [address] Jan, [facility] [address] [id number] [address] [place] [address], [place] [address] Jan, [facility] [address] [id number] [address] [place] [address], [place] [address] Jan, [facility] [address] [id number] [address] [place] [address], [place] [address] Dec, [facility] [address] [id number] [address] [place] [address], [place] [address] Dec, [facility] [address] [id number] [address] [place] [address], [place] [address] Oct, [facility] [address] [id number] [address] [place] [address], [place] [address] Oct, [facility] [address] [id number] [address] [place] [address], [place] [address] Sep, [facility] [address] [id number] [address] [place] [address], [place] [address] Sep, [facility] [address] [id number] [address] [place] [address], [place] [address] Sep, [facility] [address] [id number] [address] [place] [address], [place] [address] Sep, [facility] [address] [id number] [address] [place] [address], [place] [address] Aug, [facility] [address] [id number] [address] [place] [address], [place] [address] Aug, [facility] [address] [id number] [address] [place] [address], [place] [address] July, [facility] [address] [id number] [address] [place] [address], [place] [address] July, [facility] [address] [id number] [address] [place] [address], [place] [address] Jun, [facility] [address] [id number] [address] [place] [address], [place] [address] Jun, [facility] [address] [id number] [address] [place] [address], [place] [address] May, [facility] [address] [id number] [address] [place] [address], [place] [address] May, [facility] [address] [id number] [address] [place] [address], [place] [address] Apr, [facility] [address] [id number] [address] [place] [address], [place] [address] Apr, [facility] [address] [id number] [address] [place] [address], [place] [address] Mar, [facility] [address] [id number] [address] [place] [address], [place] [address] Mar, [facility] [address] [id number] [address] [place] [address], [place] [address] Jan, [facility] [address] [id number] [address] [place] [address], [place] [address] Jan, [facility] [address] [id number] [address] [place] [address], [place] [address] Jan, [facility] [address] [id number] [address] [place] [address], [place] [address] Jan, [facility] [address] [id number] [address] [place] [address], [place] [address] Jan, [facility] [address] [id number] [address] [place] [address], [place] [address] Dec, [facility] [address] [id number] [address] [place] [address], [place] [address] Dec, [facility] [address] [id number] [address] [place] [address], [place] [address] Dec, [facility] [address] [id number] [address] [place] [address], [place] [address] Nov, [facility] [address] [id number] [address] [place] [address], [place] [address] Nov, [facility] [address] [id number] [address] [place] [address], [place] [address] Sep, [facility] [address] [id number] [address] [place] [address], [place] [address] Sep, [facility] [address] [id number] [address] [place] [address], [place] [address] Aug, [facility] [address] [id number] [address] [place] [address], [place] [address] Aug, [facility] [address] [id number] [place] [id number] July, [facility] [address] [id number] [place] [id number] Jun, [facility] [address] [id number] [place] [id number] Apr, [facility] [address] [id number] [place] [id number] Mar, [facility] [address] [id number] [address] [place] [address], [place] [address] Mar, [facility] [address] [id number] [place] [id number] Mar, [facility] [address] [id number] [address] [place] [address], [place] [address] Mar, [facility] [address] [id number] [place] [id number] Feb, [facility] [address] [id number] [address] [place] [address] Feb, [facility] [address] [id number] [place] [id number] Feb, [facility] [address] [facility] [id number] [address] [place] [address] Feb, [facility] [address] [id number] [place] [id number] Oct, [facility] [address] [id number] [place] [id number] Oct, [facility] [address] [id number] [place] [id number] July, [facility] [address] [id number] [place] [id number] July, [facility] [address] [id number] [place] [id number] Jun, [facility] [address] [id number] [place] [id number] Jun, [facility] [address] [id number] [place] [id number] Jun, [facility] [address] [id number] [place] [id number] Mar, [facility] [address] [id number] [place] [id number] Mar, [facility] [address] [facility] [id number] [address] [place] [address] Feb, [facility] [address] [facility] [id number] [address] [place] [address] Feb, [facility] [address] [facility] [id number] [address] [place] [address] Jan, [facility] [address] [facility] [id number] [address] [place] [address] Jan, [facility] [address] [facility] [id number] [address] [place] [id number] Jan, [facility] [address] [facility] [id number] [address] [place] [id number] Jan, [facility] [address] [facility] [id number] [address] [place] [id number] Jan, [facility] [address] [facility] [id number] [address] [place] [id number] Aug, [facility] [address] [facility] [id number] [address] [place] [id number] 17 Apr, 2010 IMMUNIZATIONS No Known Immunizations SOCIAL HISTORY Never Assessed REASON FOR VISIT E[place] [place] CARE VITAL SIGNS MEDICATIONS Unknown [...]
--- OUTSIDE RECORDS SUMMARY | 2019-11-08 13:05 | XMS REPORT ---
Author Author Zana Mojica Doctor Organization [facility] Address Unknown Phone Unavailable Care Team Providers Care Paranormal Investigator Name Role Phone Migration, Doctor Unavailable Unavailable PROBLEMS Type Condition ICD9-CM Code REM41-CW Code Onset Dates Condition S tatus SNOMED Code Problem Factor V Leiden D68.51 Active 3070 98561 Problem Anticoagulant long-term use Z79.01 Ac tive 793369266 Problem Post-phlebitic syndrome I87.009 Active 10187082 Problem 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 70035738 Problem Other chronic pain G89.29 Active 8 3662716 Problem Venous stasis ulcers, left I83.029 Act ozzy 762944217 Problem Essential hypertension I10 Active 09338820 Problem Venous anomaly Q27.9 Active 27629 4003 Problem Congenital single kidney Q60.0 Activ e 19379132 Problem Chronic prescription opiate use Z79.899 Active 694224413 Problem Pure hypercholesterolemia E78.00 Acti ve [id number] ALLERGIES No Information ENCOUNTERS Encounter Location Date Diagnosis [place] [id number] [facility] [id number] [address] [place] [phone] Jun, [place] [id number] [place] [id number] Jun, Anticoagulant long-term use Z79.01 and I diopathic chronic gout of multiple sites without tophus M1A.09X0 [facility] [address] [facility] [id number] [address] [place] [address] May, Other chronic pain G89.29 [facility] [address] [facility] [id number] [address] [place] [address] May, [facility] [address] [facility] [id number] [address] [place] [address] May, Anticoagulant long-term use Z79.01 [facility] [address] [facility] [id number] [address] [place] [address] May, [facility] [address] [id number] [id number] May, Anticoagulant long-term use Z79.01 [place] [address] [facility] [id number] [address] [place] [address] May, Anticoagulant long-term use Z79.01 [place] [address] [facility] [id number] [address] [place] [address] May, Anticoagulant long-term use Z79.[address] [facility] [address] [id number] [place] [id number] May, Factor V Leiden D68.51 [place] [address] [facility] [id number] [address] [place] [address] Apr, Other chronic pain G89.29 [place] [address] [place] [id number] [address] [place] [address] Apr, Idiopathic chronic gout of m ultiple sites without tophus M1A.09X0 [facility] [address] [id number] [place] [id number] Apr, Anticoagulant long-term use Z79.01 [facility] [address] [id number] [place] [id number] Apr, Anticoagulant long-term use Z79.01 ; Med ication side effect T88.7XXA and Idiopathic chronic gout of multiple sites without tophus M1A.09X0 [place] [address] [facility] [id number] [address] [place] [address] Apr, [place] [address] [facility] [id number] [address] [place] [address] 14 Apr, 2018 Anticoagulant long-term use Z79.01 [place] [address] [facility] [id number] [address] [place] [address] Apr, Medication side effect T88.7 XXA and Factor V Leiden D68.51 [place] [address] [facility] [id number] [address] [place] [address] Apr, Idiopathic chronic gout of m ultiple sites without tophus M1A.09X0 and Anticoagulant long-term use Z79.01 [facility] [address] [facility] [address] [address] [id number] [place] [id number] Mar, Factor V Leiden D68.51 and Anticoagulant long-term use Z79.01 [place] [address] [facility] [id number] [address] [place] [address] Mar, Factor V Leiden D68.51 ; Ant icoagulant long-term use Z79.01 ; Idiopathic chronic gout of multiple sites without tophus M1A.09X0 ; Pure hypercholesterolemia E78.00 ; Other chronic pain G89.29 and BMI 40.0-44.9, adult Z68.41 [place] [address] [facility] [id number] [address] [place] [address] Mar, [place] [address] [facility] [id number] [address] [place] [address] Mar, Other chronic pain G89.29 [place] [address] [facility] [id number] [address] [place] [address] Feb, Idiopathic chronic gout of m ultiple sites without tophus M1A.09X0 [place] [address] [facility] [address] [id number] [place] [id number] Feb, Anticoagulant long-term use Z79.01 and I diopathic chronic gout of multiple sites without tophus M1A.09X0 [place] [address] [facility] [id number] [address] [place] [address] Feb, Anticoagulant long-term use Z79.01 and Idiopathic chronic gout of multiple sites without tophus M1A.09X0 [place] [address] [facility] [id number] [address] [place] [address] Feb, [facility] [address] [id number] [address] [place] [address] Feb, Other chronic pain G89.29 [facility] [address] [id number] [address] [place] [address] Jan, Other chronic pain G89.29 [facility] [address] [facility] [id number] [address] [place] [address] Dec, Other chronic pain G89.29 [facility] [address] [id number] [address] [place] [address] Dec, Anticoagulant long-term use Z79.01 [facility] [address] [facility] [id number] [address] [place] [address] Dec, Chronic prescription opiate use Z79.899 ; Factor V Leiden D68.51 ; Other chronic pain G89.29 and Anticoagulant long-term use Z79.01 [facility] [address] [facility] [id number] [address] [place] [address] Nov, Other chronic pain G89.29 [facility] [address] [id number] [address] [place] [address] Oct, Other chronic pain G89.29 [facility] [address] [id number] [address] [place] [address] Sep, Other chronic pain G89.29 [facility] [address] [id number] [address] [place] [address] Aug, Other chronic pain G89.29 [facility] [address] [id number] [address] [place] [address] 11 Aug, 2017 Venous stasis ulcers, left I 83.029 [facility] [address] [facility] [id number] [address] [place] [address] July, Other chronic pain G89.29 [facility] [address] [facility] [id number] [address] [place] [address] July, Venous stasis ulcers, left I 83.029 and Snoring R06.83 [facility] [address] [facility] [id number] [address] [place] [address] Jun, Idiopathic chronic gout of m ultiple sites without tophus M1A.09X0 [facility] [address] [facility] [id number] [address] [place] [address] Jun, Acute renal insufficiency N2 8.9 [facility] [address] [facility] [id number] [address] [place] [address] Jun, Other chronic pain G89.29 [place] [address] [facility] [id number] [address] [place] [address] Jun, Acute renal insufficiency N2 8.9 [place] [address] [facility] [id number] [place] [id number] Jun, Idiopathic chronic gout of multiple site s without tophus M1A.09X0 ; Essential hypertension I10 and Anticoagulant long-term use Z79.01 [place] [address] [facility] [id number] [address] [place] [address] Jun, Anticoagulant long-term use Z79.01 and Essential hypertension I10 [place] [address] [facility] [id number] [address] [place] [address] May, Idiopathic chronic gout of ultiple sites without tophus M1A.09X0 [place] [address] [facility] [id number] [address] [place] [address] May, [place] [address] [facility] [id number] [address] [place] [address] May, Essential hypertension I10 ; Pure hypercholesterolemia E78.00 ; Anticoagulant long-term use Z79.01 and Idiopathic chronic gout of multiple sites without tophus M1A.09X0 [place] [address] [facility] [id number] [address] [place] [address] May, Other chronic pain G89.29 [place] [address] [facility] [id number] [address] [place] [address] May, Anticoagulant long-term use Z79.01 [place] [address] [facility] [id number] [address] [place] [address] May, Chronic prescription opiate use Z79.899 ; Other chronic pain G89.29 ; Essential hypertension I10 ; Factor V Leiden D68.51 ; Anticoagulant long-term use Z79.01 ; Pure hypercholesterolemia E78.00 ; Venous stasis ulcers, left I83.029 ; Idiopathic chronic gout of multiple sites without tophus M1A.09X0 and Cellulitis of left lower extremity L03.116 [place] [address] [facility] [id number] [address] [place] [address] Apr, Other chronic pain G89.29 [place] [address] [facility] [id number] [address] [place] [address] Mar, Other chronic pain G89.29 [place] [address] [facility] [id number] [address] [place] [address] Mar, Factor V Leiden D68.51 ; Pur e hypercholesterolemia E78.00 and Other chronic pain G89.29 [place] [address] [facility] [id number] [address] [place] [address] Feb, Other chronic pain G89.29 [place] [address] [facility] [id number] [address] [place] [address] Jan, Idiopathic chronic gout of m ultiple sites without tophus M1A.09X0 [place] [address] [facility] [id number] [address] [place] [address] Jan, Other chronic pain G89.29 [place] [address] [facility] [id number] [address] [place] [address] Dec, Anticoagulant long-term use Z79.01 ; Factor V Leiden D68.51 and Other chronic pain G89.29 [place] [address] [facility] [id number] [address] [place] [address] Dec, Other chronic pain G89.29 [facility] [address] [facility] [id number] [address] [place] [address] Nov, Other chronic pain G89.29 [place] [address] [facility] [id number] [address] [place] [address] Oct, Other chronic pain G89.29 [facility] [address] [facility] [id number] [address] [place] [address] Sep, Anticoagulant long-term use Z79.01 [place] [address] [facility] [id number] [address] [place] [address] Sep, Chronic prescription opiate use Z79.899 ; Anticoagulant long-term use Z79.01 ; Essential hypertension I10 ; Pure hypercholesterolemia E78.00 ; Factor V Leiden D68.51 ; Venous stasis ulcers, left I83.029 ; Other chronic pain G89.29 and Idiopathic chronic gout of multiple sites without tophus M1A.09X0 [place] [address] [facility] [id number] [address] [place] [address] Aug, Anticoagulant long-term use Z79.01 [place] [address] [facility] [id number] [address] [place] [address] Aug, Other chronic pain G89.29 [place] [address] [facility] [id number] [address] [place] [address] Aug, Essential hypertension I10 a nd Factor V Leiden D68.[address] [place] [id number] [place] [address] [id number] Aug, Acute right ankle pain M25.571 and Tendo nitis of ankle M77.50 [place] [address] [facility] [id number] [address] [place] [phone] Aug, [place] [address] [facility] [id number] [address] [place] [address] July, Other chronic pain G89.29 [place] [address] [facility] [id number] [address] [place] [address] Jun, Other chronic pain G89.29 [facility] [address] [id number] [address] [place] [address] Jun, Other chronic pain G89.29 [facility] [address] [facility] [id number] [address] [place] [address] Jun, Anticoagulant long-term use Z79.01 [facility] [address] [id number] [address] [place] [address] May, Other chronic pain G89.29 [facility] [address] [id number] [address] [place] [address] May, Anticoagulant long-term use Z79.01 [facility] [address] [id number] [address] [place] [address] May, Other chronic pain G89.29 [facility] [address] [facility] [id number] [address] [place] [address] Apr, Anticoagulant long-term use Z79.01 [facility] [address] [id number] [address] [place] [address] Apr, Other chronic pain G89.29 [facility] [address] [id number] [address] [place] [address] Apr, Anticoagulant long-term use Z79.01 and Pure hypercholesterolemia E78.00 [facility] [address] [id number] [address] [place] [address] Mar, [facility] [address] [id number] [address] [place] [address] Mar, Anticoagulant long-term use Z79.01 [facility] [address] [id number] [address] [place] [address] Mar, Other chronic pain G89.29 [facility] [address] [facility] [id number] [address] [place] [address] Feb, Essential hypertension I10 ; Chronic prescription opiate use Z79.899 ; Other chronic pain G89.29 ; Screening Z13.9 ; Factor V Leiden D68.51 ; Anticoagulant long-term use Z79.01 ; Venous stasis dermatitis of left lower extremity I83.12 and Pure hypercholesterolemia E78.00 [facility] [address] [facility] [id number] [address] [place] [address] 14 Jan, 2016 Anticoagulant long-term use Z79.01 [facility] [address] [id number] [address] [place] [address] 10 Jan, 2016 Anticoagulant long-term use Z79.01 [facility] [address] [id number] [address] [place] [phone] 09 Jan, 2016 [facility] [address] [facility] [id number] [address] [place] [address] Jan, [facility] [address] [facility] [id number] [address] [place] [address] Dec, [facility] [address] [facility] [id number] [address] [place] [address] Nov, [facility] [address] [facility] [id number] [address] [place] [address] Oct, Anticoagulant long-term use Z79.01 [facility] [address] [facility] [id number] [address] [place] [address] Oct, [facility] [address] [facility] [id number] [address] [place] [address] Oct, Anticoagulant long-term use Z79.01 [facility] [address] [facility] [id number] [address] [place] [address] Sep, [facility] [address] [facility] [id number] [address] [place] [address] Aug, [facility] [address] [facility] [id number] [address] [place] [address] Aug, Chronic prescription opiate use Z79.899 ; Other chronic pain G89.29 ; Essential hypertension I10 and Pure hypercholesterolemia E78.0 [facility] [address] [facility] [id number] [address] [place] [address] July, Hyperlipidemia, group D E78. 3 and Anticoagulant long-term use Z79.01 [facility] [address] [facility] [id number] [address] [place] [address] July, Hyperlipidemia, group D E78. 3 ; Essential hypertension I10 and Factor V Leiden D68.51 [facility] [address] [facility] [id number] [address] [place] [address] July, Essential hypertension I10 [place] [address] [facility] [id number] [place] [address] Jun, Hyperlipidemia, group D E78. 3 [place] [address] [place] [id number] [address] [place] [address] Jun, Factor V Leiden D68.51 [place] [id number] [place] [address] May, Factor V Leiden D68.51 ; Hyp erlipidemia, group D E78.3 ; Essential hypertension I10 ; Other chronic pain G89.29 and Anticoagulant long-term use Z79.01 [place] [address] [place] [id number] [address] [place] [address] May, Anticoagulant long-term use Z79.01 [place] [address] [place] [id number] [address] [place] [address] May, Anticoagulant long-term use Z79.01 [place] [address] [facility] [id number] [address] [place] [address] May, [place] [address] [place] [id number] [address] [place] [address] Apr, [place] [address] [place] [id number] [address] [place] [address] Mar, [facility] [address] [place] [id number] [address] [place] [address] Mar, [facility] [address] [facility] [id number] [address] [place] [address] Feb, Anticoagulant long-term use Z79.01 [facility] [address] [facility] [id number] [address] [place] [address] 16 Feb, 2015 Chronic prescription opiate use Z79.899 ; Other chronic pain G89.29 ; Hyperlipidemia, group D E78.3 ; Factor V Leiden D68.51 and Anticoagulant long- term use Z79.01 [facility] [address] [facility] [id number] [address] [place] [address] Feb, [facility] [address] [facility] [id number] [address] [place] [address] Jan, [place] [address] [place] [id number] [address] [place] [address] Dec, Hyperlipidemia, unspecified E78.5 [facility] [address] [facility] [id number] [address] [place] [address] Dec, Cellulitis of left lower ext remity L03.116 ; Venous stasis ulcers, left I83.029 and Factor V Leiden D68.51 [facility] [address] [facility] [id number] [address] [place] [address] Dec, Hyperlipidemia 272.4 and Fac tor V Leiden 289.81 [place] [address] [place] [id number] [address] [place] [address] Dec, [place] [address] [facility] [id number] [address] [place] [address] Nov, 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 [place] [address] [facility] [id number] [address] [place] [address] Nov, [place] [address] [facility] [id number] [address] [place] [address] Nov, [facility] [address] [place] [id number] [address] [place] [address] Nov, [facility] [address] [facility] [id number] [address] [place] [address] Oct, [facility] [address] [facility] [id number] [address] [place] [address] Oct, Hyperlipidemia 272.4 ; Chron ic pain disorder 338.4 ; Venous stasis ulcer of left lower extremity 454.0 and 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 [facility] [address] [facility] [id number] [address] [place] [address] Sep, [facility] [address] [facility] [id number] [address] [place] [address] Sep, [facility] [address] [place] [id number] [address] [place] [address] Sep, Hyperlipidemia 272.4 and Fac tor V Leiden 289.81 [facility] [address] [place] [id number] [address] [place] [address] Aug, [facility] [address] [facility] [id number] [address] [place] [address] Aug, 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 [facility] [address] [facility] [id number] [address] [place] [address] July, [facility] [address] [place] [id number] [address] [place] [address] July, Essential hypertension, fito gn 401.1 ; 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 ; Chronic pain disorder 338.4 ; Hyperlipidemia 272.4 and Venous stasis ulcer of left lower extremity 454.0 [facility] [address] [facility] [id number] [address] [place] [address] Jun, [facility] [address] [place] [id number] [address] [place] [address] Jun, [facility] [address] [place] [id number] [address] [place] [address] May, [facility] [address] [id number] [address] [place] [address], [place] [address] 13 May, 2014 [facility] [address] [id number] [address] [place] [address], [place] [address] Apr, [facility] [address] [id number] [address] [place] [address], [place] [address] 20 Apr, 2014 [facility] [address] [id number] [address] [place] [address], [place] [address] 18 Apr, 2014 [facility] [address] [id number] [address] [place] [address], [place] [address] 18 Apr, 2014 [facility] [address] [id number] [address] [place] [address], [place] [address] Apr, [facility] [address] [id number] [address] [place] [address], [place] [address] Apr, [facility] [address] [id number] [address] [place] [address], [place] [address] 15 Mar, 2014 [facility] [address] [id number] [address] [place] [address], [place] [address] Mar, [facility] [address] [id number] [address] [place] [address], [place] [address] Mar, [facility] [address] [id number] [address] [place] [address], [place] [address] Mar, [facility] [address] [id number] [address] [place] [address], [place] [address] Feb, [facility] [address] [id number] [address] [place] [address], [place] [address] Feb, [facility] [address] [id number] [address] [place] [address], [place] [address] Feb, [facility] [address] [id number] [address] [place] [address], [place] [address] Feb, [facility] [address] [id number] [address] [place] [address], [place] [address] Jan, [facility] [address] [id number] [address] [place] [address], [place] [address] Jan, [facility] [address] [id number] [address] [place] [address], [place] [address] Jan, [facility] [address] [id number] [address] [place] [address], [place] [address] Jan, [facility] [address] [id number] [address] [place] [address], [place] [address] Jan, [facility] [address] [id number] [address] [place] [address], [place] [address] Jan, [facility] [address] [id number] [address] [place] [address], [place] [address] Dec, [facility] [address] [id number] [address] [place] [address], [place] [address] Dec, [facility] [address] [id number] [address] [place] [address], [place] [address] Oct, [facility] [address] [id number] [address] [place] [address], [place] [address] Oct, [facility] [address] [id number] [address] [place] [address], [place] [address] Sep, [facility] [address] [id number] [address] [place] [address], [place] [address] Sep, [facility] [address] [address] [id number] [address] [place] [address], [place] [address] Sep, [facility] [address] [id number] [address] [place] [address], [place] [address] Sep, [facility] [address] [id number] [address] [place] [address], [place] [address] Aug, [facility] [address] [id number] [address] [place] [address], [place] [address] Aug, [facility] [address] [id number] [address] [place] [address], [place] [address] July, [facility] [address] [id number] [address] [place] [address], [place] [address] July, [facility] [address] [id number] [address] [place] [address], [place] [address] Jun, [facility] [address] [id number] [address] [place] [address], [place] [address] Jun, [facility] [address] [id number] [address] [place] [address], [place] [address] May, [facility] [address] [id number] [address] [place] [address], [place] [address] May, [facility] [address] [id number] [address] [place] [address], [place] [address] Apr, [facility] [address] [id number] [address] [place] [address], [place] [address] Apr, [facility] [address] [id number] [address] [place] [address], [place] [address] Mar, [facility] [address] [id number] [address] [place] [address], [place] [address] Mar, [facility] [address] [id number] [address] [place] [address], [place] [address] Jan, [facility] [address] [id number] [address] [place] [address], [place] [address] Jan, [facility] [address] [id number] [address] [place] [address], [place] [address] Jan, [facility] [address] [id number] [address] [place] [address], [place] [address] Jan, [facility] [address] [id number] [address] [place] [address], [place] [address] Jan, [facility] [address] [id number] [address] [place] [address], [place] [address] Dec, [facility] [address] [id number] [address] [place] [address], [place] [address] Dec, [facility] [address] [id number] [address] [place] [address], [place] [address] Dec, [facility] [address] [id number] [address] [place] [address], [place] [address] Nov, [facility] [address] [id number] [address] [place] [address], [place] [address] Nov, [facility] [address] [id number] [address] [place] [address], [place] [address] Sep, [facility] [address] [id number] [address] [place] [address], [place] [address] Sep, [facility] [address] [id number] [address] [place] [address], [place] [address] Aug, [facility] [address] [id number] [address] [place] [address], [place] [address] Aug, [facility] [address] [id number] [place] [id number] July, [facility] [address] [id number] [place] [id number] Jun, [facility] [address] [id number] [place] [id number] Apr, [facility] [address] [id number] [place] [id number] Mar, [facility] [address] [id number] [address] [place] [address], [place] [address] Mar, [facility] [address] [id number] [place] [id number] Mar, [facility] [address] [id number] [address] [place] [address], [place] [address] Mar, [facility] [address] [id number] [place] [id number] Feb, [facility] [address] [id number] [address] [place] [address] Feb, [facility] [address] [id number] [place] [id number] Feb, [facility] [address] [facility] [id number] [address] [place] [address] Feb, [facility] [address] [id number] [place] [id number] Oct, [facility] [address] [id number] [place] [id number] Oct, [facility] [address] [id number] [place] [id number] July, [facility] [address] [id number] [place] [id number] July, [facility] [address] [id number] [place] [id number] Jun, [facility] [address] [id number] [place] [id number] Jun, [facility] [address] [id number] [place] [id number] Jun, [facility] [address] [id number] [place] [id number] Mar, [facility] [address] [id number] [place] [id number] Mar, [facility] [address] [facility] [id number] [address] [place] [address] Feb, [facility] [address] [facility] [id number] [address] [place] [address] Feb, [facility] [address] [facility] [id number] [address] [place] [id number] Jan, [facility] [address] [facility] [id number] [address] [place] [address] Jan, [facility] [address] [facility] [id number] [address] [place] [address] Jan, [facility] [address] [facility] [id number] [address] [place] [address] Jan, [facility] [address] [facility] [id number] [address] [place] [id number] Jan, [facility] [address] [facility] [id number] [address] [place] [id number] Aug, [facility] [address] [facility] [id number] [address] [place] [id number] 17 Apr, 2010 IMMUNIZATIONS No Known Immunizations SOCIAL HISTORY Never Assessed REASON FOR VISIT [place] [place] CARE VITAL SIGNS MEDICATIONS Unknown [...]
--- OUTSIDE RECORDS SUMMARY | 2019-11-08 13:05 | XMS REPORT ---
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 02239859 Problem Other chronic pain G89.29 Active 8 7210692 Problem Venous stasis ulcers, left I83.029 Act ozzy 986419945 Problem Essential hypertension I10 Active 83557124 Problem Venous anomaly Q27.9 Active 91030 4003 Problem Congenital single kidney Q60.0 Activ e 86636363 Problem Chronic prescription opiate use Z79.899 Active 386238322 Problem Pure hypercholesterolemia E78.00 Acti ve [id number] ALLERGIES No Information ENCOUNTERS Encounter Location Date Diagnosis [facility] [address] [facility] [id number] [address] [place] [phone] Jun, Other chronic pain G89.29 [facility] [address] [facility] [id number] [address] [place] [id number] Jun, [facility] [address] [facility] [id number] [address] [place] [phone] Jun, [facility] [id number] [place] [address] [id number] Jun, Anticoagulant long-term use Z79.01 and I diopathic chronic gout of multiple sites without tophus M1A.09X0 [facility] [address] [facility] [id number] [address] [place] [phone] May, Other chronic pain G89.29 [facility] [address] [facility] [id number] [address] [place] [id number] May, [facility] [address] [facility] [id number] [address] [place] [id number] May, Anticoagulant long-term use Z79.01 [place] [address] [facility] [id number] [address] [place] [id number] May, [id number] [place] [address] [id number] May, Anticoagulant long-term use Z79.01 [place] [address] [address] [facility] [id number] [address] [place] [id number] May, Anticoagulant long-term use Z79.01 [place] [address] [facility] [id number] [address] [place] [phone] May, Anticoagulant long-term use Z79.01 [facility] [id number] [place] [address] [id number] May, Factor V Leiden D68.51 [place] [address] [facility] [id number] [address] [place] [phone] Apr, Other chronic pain G89.29 [place] [address] [facility] [id number] [address] [place] [id number] Apr, Idiopathic chronic gout of m ultiple sites without tophus M1A.09X0 [facility] [address] [id number] [id number] Apr, Anticoagulant long-term use Z79.01 [facility] [address] [id number] [id number] Apr, Anticoagulant long-term use Z79.01 ; Med ication side effect T88.7XXA and Idiopathic chronic gout of multiple sites without tophus M1A.09X0 [place] [address] [facility] [id number] [address] [place] [address] Apr, [place] [address] [facility] [id number] [address] [place] [id number] 14 Apr, 2018 Anticoagulant long-term use Z79.01 [place] [address] [facility] [id number] [address] [place] [id number] 11 Apr, 2018 Medication side effect T88.7 XXA and Factor V Leiden D68.51 [place] [address] [facility] [id number] [address] [place] [id number] Apr, Idiopathic chronic gout of m ultiple sites without tophus M1A.09X0 and Anticoagulant long-term use Z79.[address] [id number] [place] [id number] Mar, Factor V Leiden D68.51 and Anticoagulant long-term use Z79.01 [place] [address] [facility] [id number] [address] [place] [address] Mar, Factor V Leiden D68.51 ; Ant icoagulant long-term use Z79.01 ; Idiopathic chronic gout of multiple sites without tophus M1A.09X0 ; Pure hypercholesterolemia E78.00 ; Other chronic pain G89.29 and BMI 40.0-44.9, adult Z68.41 [place] [address] [facility] [id number] [address] [place] [id number] Mar, [place] [address] [facility] [id number] [address] [place] [phone] Mar, Other chronic pain G89.29 [place] [address] [facility] [id number] [address] [place] [id number] Feb, Idiopathic chronic gout of m ultiple sites without tophus M1A.09X0 [facility] [id number] [place] [address] [id number] Feb, Anticoagulant long-term use Z79.01 and I diopathic chronic gout of multiple sites without tophus M1A.09X0 [place] [address] [facility] [id number] [address] [place] [id number] Feb, Anticoagulant long-term use Z79.01 and Idiopathic chronic gout of multiple sites without tophus M1A.09X0 [facility] [address] [facility] [id number] [address] [place] [phone] Feb, [facility] [address] [facility] [id number] [address] [place] [id number] Feb, Other chronic pain G89.29 [facility] [address] [facility] [id number] [address] [place] [phone] Jan, Other chronic pain G89.29 [place] [address] [facility] [id number] [address] [place] [id number] Dec, Other chronic pain G89.29 [place] [address] [facility] [id number] [address] [place] [id number] Dec, Anticoagulant long-term use Z79.01 [place] [address] [facility] [id number] [address] [place] [address] Dec, Chronic prescription opiate use Z79.899 ; Factor V Leiden D68.51 ; Other chronic pain G89.29 and Anticoagulant long-term use Z79.01 [place] [address] [facility] [id number] [address] [place] [phone] Nov, Other chronic pain G89.29 [place] [address] [facility] [id number] [address] [place] [id number] Oct, Other chronic pain G89.29 [facility] [address] [facility] [id number] [address] [place] [id number] Sep, Other chronic pain G89.29 [place] [address] [facility] [id number] [address] [place] [id number] Aug, Other chronic pain G89.29 [place] [address] [facility] [id number] [address] [place] [address] Aug, Venous stasis ulcers, left I 83.029 [place] [address] [facility] [id number] [address] [place] [id number] July, Other chronic pain G89.29 [place] [address] [facility] [id number] [address] [place] [id number] July, Venous stasis ulcers, left I 83.029 and Snoring R06.83 [place] [address] [facility] [id number] [address] [place] [id number] Jun, Idiopathic chronic gout of m ultiple sites without tophus M1A.09X0 [place] [address] [facility] [id number] [address] [place] [id number] Jun, Acute renal insufficiency N2 8.9 [place] [address] [facility] [id number] [address] [place] [phone] Jun, Other chronic pain G89.29 [place] [address] [facility] [id number] [address] [place] [id number] Jun, Acute renal insufficiency N2 8.[id number] [place] [address] [id number] Jun, Idiopathic chronic gout of multiple site s without tophus M1A.09X0 ; Essential hypertension I10 and Anticoagulant long-term use Z79.01 [place] [address] [facility] [id number] [address] [place] [phone] Jun, Anticoagulant long-term use Z79.01 and Essential hypertension I10 [place] [address] [facility] [id number] [address] [place] [id number] May, Idiopathic chronic gout of m ultiple sites without tophus M1A.09X0 [place] [address] [facility] [id number] [address] [place] [id number] May, [place] [address] [facility] [id number] [address] [place] [id number] May, Essential hypertension I10 ; Pure hypercholesterolemia E78.00 ; Anticoagulant long-term use Z79.01 and Idiopathic chronic gout of multiple sites without tophus M1A.09X0 [place] [address] [facility] [id number] [address] [place] [id number] May, Other chronic pain G89.29 [place] [address] [facility] [id number] [address] [place] [id number] May, Anticoagulant long-term use Z79.01 [place] [address] [facility] [id number] [address] [place] [address] May, Chronic prescription opiate use Z79.899 ; Other chronic pain G89.29 ; Essential hypertension I10 ; Factor V Leiden D68.51 ; Anticoagulant long-term use Z79.01 ; Pure hypercholesterolemia E78.00 ; Venous stasis ulcers, left I83.029 ; Idiopathic chronic gout of multiple sites without tophus M1A.09X0 and Cellulitis of left lower extremity L03.116 [place] [address] [place] [id number] [address] [place] [id number] Apr, Other chronic pain G89.29 [place] [address] [facility] [id number] [address] [place] [id number] Mar, Other chronic pain G89.29 [place] [address] [facility] [id number] [address] [place] [id number] Mar, Factor V Leiden D68.51 ; Pur e hypercholesterolemia E78.00 and Other chronic pain G89.29 [place] [address] [facility] [id number] [address] [place] [id number] Feb, Other chronic pain G89.29 [place] [address] [facility] [id number] [address] [place] [phone] Jan, Idiopathic chronic gout of m ultiple sites without tophus M1A.09X0 [place] [address] [facility] [id number] [address] [place] [id number] Jan, Other chronic pain G89.29 [place] [address] [facility] [id number] [address] [place] [address] Dec, Anticoagulant long-term use Z79.01 ; Factor V Leiden D68.51 and Other chronic pain G89.29 [place] [address] [facility] [id number] [address] [place] [id number] Dec, Other chronic pain G89.29 [facility] [address] [facility] [id number] [address] [place] [phone] 13 Nov, 2016 Other chronic pain G89.29 [place] [address] [facility] [id number] [address] [place] [address] Oct, Other chronic pain G89.29 [place] [address] [facility] [id number] [address] [place] [id number] Sep, Anticoagulant long-term use Z79.01 [place] [address] [facility] [id number] [address] [place] [id number] Sep, Chronic prescription opiate use Z79.899 ; Anticoagulant long-term use Z79.01 ; Essential hypertension I10 ; Pure hypercholesterolemia E78.00 ; Factor V Leiden D68.51 ; Venous stasis ulcers, left I83.029 ; Other chronic pain G89.29 and Idiopathic chronic gout of multiple sites without tophus M1A.09X0 [place] [address] [facility] [id number] [address] [place] [address] Aug, Anticoagulant long-term use Z79.01 [place] [address] [facility] [id number] [address] [place] [id number] Aug, Other chronic pain G89.29 [place] [address] [facility] [id number] [address] [place] [id number] Aug, Essential hypertension I10 a nd Factor V Leiden D68.[address] [place] [id number] [place] [address] [id number] 15 Aug, 2016 Acute right ankle pain M25.571 and Tendo nitis of ankle M77.50 [place] [address] [facility] [id number] [address] [place] [id number] Aug, [facility] [address] [facility] [id number] [address] [place] [id number] July, Other chronic pain G89.29 [facility] [address] [facility] [id number] [address] [place] [id number] Jun, Other chronic pain G89.29 [facility] [address] [facility] [id number] [address] [place] [id number] Jun, Other chronic pain G89.29 [facility] [address] [id number] [address] [place] [id number] Jun, Anticoagulant long-term use Z79.01 [facility] [address] [facility] [id number] [address] [place] [address] May, Other chronic pain G89.29 [facility] [address] [facility] [id number] [address] [place] [address] May, Anticoagulant long-term use Z79.01 [facility] [address] [facility] [id number] [address] [place] [address] May, Other chronic pain G89.29 [facility] [address] [facility] [id number] [address] [place] [id number] Apr, Anticoagulant long-term use Z79.01 [facility] [address] [facility] [id number] [address] [place] [phone] Apr, Other chronic pain G89.29 [facility] [address] [id number] [address] [place] [address] Apr, Anticoagulant long-term use Z79.01 and Pure hypercholesterolemia E78.00 [facility] [address] [facility] [id number] [address] [place] [id number] Mar, [facility] [address] [facility] [id number] [address] [place] [id number] Mar, Anticoagulant long-term use Z79.01 [facility] [address] [facility] [id number] [address] [place] [id number] 04 Mar, 2016 Other chronic pain G89.29 [facility] [address] [facility] [id number] [address] [place] [id number] 08 Feb, 2016 Essential hypertension I10 ; Chronic prescription opiate use Z79.899 ; Other chronic pain G89.29 ; Screening Z13.9 ; Factor V Leiden D68.51 ; Anticoagulant long-term use Z79.01 ; Venous stasis dermatitis of left lower extremity I83.12 and Pure hypercholesterolemia E78.00 [facility] [address] [facility] [id number] [address] [place] [id number] 14 Jan, 2016 Anticoagulant long-term use Z79.01 [place] [address] [facility] [id number] [address] [place] [address] Jan, Anticoagulant long-term use Z79.01 [place] [id number] [place] [address] Jan, [facility] [address] [facility] [id number] [address] [place] [address] Jan, [facility] [address] [facility] [id number] [address] [place] [id number] Dec, [facility] [address] [facility] [id number] [address] [place] [id number] Nov, [place] [address] [facility] [id number] [address] [place] [address] Oct, Anticoagulant long-term use Z79.01 [facility] [address] [facility] [id number] [address] [place] [id number] Oct, [facility] [address] [facility] [id number] [address] [place] [address] Oct, Anticoagulant long-term use Z79.01 [facility] [address] [facility] [id number] [address] [place] [phone] Sep, [facility] [address] [id number] [address] [place] [phone] Aug, [facility] [address] [id number] [address] [place] [id number] Aug, Chronic prescription opiate use Z79.899 ; Other chronic pain G89.29 ; Essential hypertension I10 and Pure hypercholesterolemia E78.0 [facility] [address] [facility] [id number] [address] [place] [phone] July, Hyperlipidemia, group D E78. 3 and Anticoagulant long-term use Z79.01 [place] [address] [facility] [id number] [address] [place] [id number] July, Hyperlipidemia, group D E78. 3 ; Essential hypertension I10 and Factor V Leiden D68.51 [place] [address] [facility] [id number] [address] [place] [phone] July, Essential hypertension I10 [place] [address] [facility] [id number] [address] [place] [id number] Jun, Hyperlipidemia, group D E78. 3 [facility] [address] [facility] [id number] [address] [place] [address] Jun, Factor V Leiden D68.51 [place] [address] [facility] [id number] [address] [place] [address] May, Factor V Leiden D68.51 ; Hyp erlipidemia, group D E78.3 ; Essential hypertension I10 ; Other chronic pain G89.29 and Anticoagulant long-term use Z79.01 [facility] [address] [facility] [id number] [address] [place] [address] May, Anticoagulant long-term use Z79.01 [place] [address] [facility] [id number] [address] [place] [phone] May, Anticoagulant long-term use Z79.01 [facility] [address] [facility] [id number] [address] [place] [phone] May, [facility] [address] [address] 03 Apr, 2015 [facility] [address] [address] Mar, [facility] [address] [address] Mar, [facility] [address] [address] Feb, Anticoagulant long-term use Z79.01 [facility] [address] [address] 16 Feb, 2015 Chronic prescription opiate use Z79.899 ; Other chronic pain G89.29 ; Hyperlipidemia, group D E78.3 ; Factor V Leiden D68.51 and Anticoagulant long- term use Z79.01 [place] [address] [address] Feb, [facility] [address] [address] Jan, [facility] [address] [address] Dec, Hyperlipidemia, unspecified E78.5 [facility] [address] [address] 15 Dec, 2014 Cellulitis of left lower ext remity L03.116 ; Venous stasis ulcers, left I83.029 and Factor V Leiden D68.51 [facility] [address] [address] Dec, Hyperlipidemia 272.4 and Fac tor V Leiden 289.81 [place] [address] [address] Dec, [facility] [address] [address] Nov, 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 [place] [address] [place] [address] Nov, [facility] [address] [facility] [id number] [place] [address] Nov, [facility] [address] [address] Nov, [facility] [address] [place] [id number] [place] [address] Oct, [facility] [address] [address] Oct, Hyperlipidemia 272.4 ; Chron ic pain disorder 338.4 ; Venous stasis ulcer of left lower extremity 454.0 and 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 [facility] [address] [address] Sep, [facility] [address] [address] Sep, [facility] [address] [address] Sep, Hyperlipidemia 272.4 and Fac tor V Leiden 289.81 [facility] [address] [address] Aug, [facility] [address] [place] [id number] [address] [place] [address] Aug, 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 [facility] [address] [place] [id number] [address] [place] [address] July, [facility] [address] [place] [id number] [address] [place] [id number] July, Essential hypertension, fito gn 401.1 ; 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 ; Chronic pain disorder 338.4 ; Hyperlipidemia 272.4 and Venous stasis ulcer of left lower extremity 454.0 [facility] [address] [id number] [address] [place] [id number] Jun, [facility] [address] [id number] [address] [address], [place] [id number] 13 Jun, 2014 [facility] [address] [id number] [address] [place] [address], [place] [id number] May, [facility] [address] [id number] [address] [place] [address], [place] [id number] May, [facility] [address] [id number] [address] [place] [address], [place] [id number] Apr, [facility] [address] [id number] [address] [place] [address], [place] [id number] Apr, [facility] [address] [id number] [address] [place] [address], [place] [id number] 18 Apr, 2014 [facility] [address] [id number] [address] [place] [address], [place] [id number] 18 Apr, 2014 [facility] [address] [id number] [address] [place] [address], [place] [id number] Apr, [facility] [address] [id number] [address] [place] [address], [place] [id number] Apr, [facility] [address] [id number] [address] [place] [address], [place] [id number] Mar, [facility] [address] [id number] [address] [place] [address], [place] [id number] Mar, [facility] [facility] [address] [id number] [address] [place] [address], [place] [id number] Mar, [facility] [address] [id number] [address] [place] [address], [place] [address] Mar, [facility] [address] [id number] [address] [place] [address], [place] [id number] Feb, [facility] [address] [id number] [address] [place] [address], [place] [address] Feb, [facility] [address] [id number] [address] [place] [address], [place] [address] Feb, [facility] [address] [id number] [address] [place] [address], [place] [address] Feb, [facility] [address] [id number] [address] [place] [address], [place] [id number] Jan, [facility] [address] [id number] [address] [place] [address], [place] [id number] Jan, [facility] [address] [id number] [address] [place] [address], [place] [address] Jan, [facility] [address] [id number] [address] [place] [address], [place] [id number] Jan, [facility] [address] [id number] [address] [place] [address], [place] [address] Jan, [facility] [address] [id number] [address] [place] [address], [place] [address] Jan, [facility] [address] [id number] [address] [place] [address], [place] [address] Dec, [facility] [address] [id number] [address] [place] [address], [place] [address] Dec, [facility] [address] [id number] [address] [place] [address], [place] [address] Oct, [facility] [address] [id number] [address] [place] [address], [place] [address] Oct, [facility] [address] [id number] [address] [place] [address], [place] [address] Sep, [facility] [address] [id number] [address] [place] [address], [place] [id number] Sep, [facility] [address] [id number] [address] [place] [address], [place] [address] Sep, [facility] [address] [id number] [address] [place] [address], [place] [address] Sep, [facility] [address] [id number] [address] [place] [address], [place] [address] Aug, [facility] [address] [id number] [address] [place] [address], [place] [address] Aug, [facility] [address] [id number] [address] [place] [address], [place] [address] July, [facility] [address] [id number] [address] [place] [address], [place] [address] July, [facility] [address] [id number] [address] [place] [address], [place] [address] Jun, [facility] [address] [id number] [address] [place] [address], [place] [address] Jun, [facility] [address] [id number] [address] [place] [address], [place] [address] May, [facility] [address] [id number] [address] [place] [address], [place] [address] May, [facility] [address] [id number] [address] [place] [address], [place] [address] Apr, [facility] [address] [id number] [address] [place] [address], [place] [address] Apr, [facility] [address] [id number] [address] [place] [address], [place] [address] Mar, [facility] [address] [id number] [address] [place] [address], [place] [address] Mar, [facility] [address] [id number] [address] [place] [address], [place] [address] Jan, [facility] [address] [id number] [address] [place] [address], [place] [address] Jan, [facility] [address] [id number] [address] [place] [address], [place] [address] Jan, [facility] [address] [id number] [address] [place] [address], [place] [address] Jan, [facility] [address] [id number] [address] [place] [address], [place] [address] Jan, [facility] [address] [id number] [address] [place] [address], [place] [address] Dec, [facility] [address] [id number] [address] [place] [address], [place] [address] Dec, [facility] [address] [id number] [address] [place] [address], [place] [address] Dec, [facility] [address] [id number] [address] [place] [address], [place] [address] Nov, [facility] [address] [id number] [address] [place] [address], [place] [address] Nov, [facility] [address] [id number] [address] [place] [address], [place] [address] Sep, [facility] [address] [id number] [address] [place] [address], [place] [address] Sep, [facility] [address] [id number] [address] [place] [address], [place] [address] Aug, [facility] [address] [id number] [address] [place] [id number] Aug, [facility] [address] [id number] [place] [id number] July, [facility] [address] [id number] [place] [id number] Jun, [facility] [address] [id number] [place] [id number] Apr, [facility] [address] [id number] [place] [id number] Mar, [facility] [address] [id number] [address] [place] [address], [place] [address] Mar, [facility] [address] [id number] [place] [id number] Mar, [facility] [address] [id number] [address] [place] [id number] Mar, [facility] [place] [address] [id number] [place] [id number] Feb, [facility] [address] [facility] [id number] [address] [place] [id number] Feb, [facility] [place] [address] [id number] [place] [id number] Feb, [facility] [address] [facility] [id number] [address] [place] [id number] Feb, [facility] [place] [address] [id number] [place] [id number] Oct, [facility] [place] [address] [id number] [place] [id number] Oct, [facility] [place] [address] [id number] [place] [id number] July, [facility] [place] [address] [id number] [place] [id number] July, [facility] [place] [address] [id number] [place] [id number] Jun, [facility] [place] [address] [id number] [place] [id number] Jun, [facility] [place] [address] [id number] [place] [id number] Jun, [facility] [place] [address] [id number] [place] [id number] Mar, [facility] [place] [address] [id number] [place] [id number] Mar, [facility] [address] [facility] [id number] [address] [place] [id number] Feb, [facility] [address] [facility] [id number] [address] [place] [id number] Feb, [facility] [address] [facility] [id number] [address] [place] [id number] Jan, [facility] [address] [id number] [address] [place] [id number] Jan, [facility] [address] [id number] [address] [place] [id number] Jan, [facility] [address] [id number] [address] [place] [id number] Jan, [facility] [address] [facility] [id number] [address] [place] [id number] Jan, [facility] [address] [id number] [address] [place] [id number] Aug, [facility] [address] [facility] [id number] [address] [place] [id number] 17 Apr, 2010 IMMUNIZATIONS No Known Immunizations SOCIAL HISTORY Never Assessed REASON FOR VISIT EMR-[facility] PLAN OF CARE VITAL SIGNS MEDICATIONS Unknown [...]
--- OUTSIDE RECORDS SUMMARY | 2019-11-08 13:06 | XMS REPORT ---
Author Author Zana Mojica Doctor Organization [facility] Address Unknown Phone Unavailable Care Team Providers Care Dialysis Registered Nurse Name Role Phone Migration, Doctor Unavailable Unavailable PROBLEMS Type Condition ICD9-CM Code SLG75-JL Code Onset Dates Condition S tatus SNOMED Code Problem Factor V Leiden D68.51 Active 3070 05120 Problem Anticoagulant long-term use Z79.01 Ac tive 397426561 Problem Post-phlebitic syndrome I87.009 Active 19101391 Problem 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 67297778 Problem Other chronic pain G89.29 Active 8 4376901 Problem Venous stasis ulcers, left I83.029 Act ozzy 193646650 Problem Essential hypertension I10 Active 25102693 Problem Venous anomaly Q27.9 Active 18615 4003 Problem Congenital single kidney Q60.0 Activ e 37439363 Problem Chronic prescription opiate use Z79.899 Active 745387578 Problem Pure hypercholesterolemia E78.00 Acti ve [id number] ALLERGIES No Information ENCOUNTERS Encounter Location Date Diagnosis [facility] [address] [facility] [id number] [address] [place] [address] Jun, [place] [id number] [place] [id number] Jun, Anticoagulant long-term use Z79.01 and I diopathic chronic gout of multiple sites without tophus M1A.09X0 [facility] [address] [facility] [id number] [address] [place] [address] May, Other chronic pain G89.29 [facility] [address] [facility] [id number] [address] [place] [address] May, [facility] [address] [facility] [id number] [address] [place] [address] May, Anticoagulant long-term use Z79.01 [facility] [address] [facility] [id number] [address] [place] [address] May, [facility] [address] [id number] [place] [id number] May, Anticoagulant long-term use Z79.01 [place] [address] [facility] [id number] [address] [place] [address] May, Anticoagulant long-term use Z79.01 [place] [address] [facility] [id number] [address] [place] [address] May, Anticoagulant long-term use Z79.01 [facility] [address] [id number] [place] [id number] May, Factor V Leiden D68.51 [place] [address] [facility] [id number] [address] [place] [address] Apr, Other chronic pain G89.29 [place] [address] [place] [id number] [address] [place] [address] Apr, Idiopathic chronic gout of m ultiple sites without tophus M1A.09X0 [facility] [address] [id number] [place] [id number] Apr, Anticoagulant long-term use Z79.01 [facility] [address] [id number] [place] [id number] Apr, Anticoagulant long-term use Z79.01 ; Med ication side effect T88.7XXA and Idiopathic chronic gout of multiple sites without tophus M1A.09X0 [place] [address] [facility] [id number] [address] [place] [address] Apr, [place] [address] [facility] [id number] [address] [place] [address] 14 Apr, 2018 Anticoagulant long-term use Z79.01 [place] [address] [facility] [id number] [address] [place] [address] Apr, Medication side effect T88.7 XXA and Factor V Leiden D68.51 [place] [address] [facility] [id number] [address] [place] [address] Apr, Idiopathic chronic gout of m ultiple sites without tophus M1A.09X0 and Anticoagulant long-term use Z79.01 [facility] [address] [id number] [place] [id number] Mar, Factor V Leiden D68.51 and Anticoagulant long-term use Z79.01 [place] [address] [facility] [id number] [address] [place] [address] Mar, Factor V Leiden D68.51 ; Ant icoagulant long-term use Z79.01 ; Idiopathic chronic gout of multiple sites without tophus M1A.09X0 ; Pure hypercholesterolemia E78.00 ; Other chronic pain G89.29 and BMI 40.0-44.9, adult Z68.41 [place] [address] [facility] [id number] [address] [place] [address] Mar, [place] [address] [facility] [id number] [address] [place] [address] Mar, Other chronic pain G89.29 [place] [address] [facility] [id number] [address] [place] [address] Feb, Idiopathic chronic gout of m ultiple sites without tophus M1A.09X0 [place] [address] [facility] [address] [id number] [place] [id number] Feb, Anticoagulant long-term use Z79.01 and I diopathic chronic gout of multiple sites without tophus M1A.09X0 [place] [address] [facility] [id number] [address] [place] [address] Feb, Anticoagulant long-term use Z79.01 and Idiopathic chronic gout of multiple sites without tophus M1A.09X0 [place] [address] [facility] [id number] [address] [place] [address] Feb, [facility] [address] [id number] [address] [place] [address] Feb, Other chronic pain G89.29 [facility] [address] [id number] [address] [place] [address] Jan, Other chronic pain G89.29 [facility] [address] [facility] [id number] [address] [place] [address] Dec, Other chronic pain G89.29 [facility] [address] [id number] [address] [place] [address] Dec, Anticoagulant long-term use Z79.01 [facility] [address] [facility] [id number] [address] [place] [address] Dec, Chronic prescription opiate use Z79.899 ; Factor V Leiden D68.51 ; Other chronic pain G89.29 and Anticoagulant long-term use Z79.01 [facility] [address] [facility] [id number] [address] [place] [address] Nov, Other chronic pain G89.29 [facility] [address] [id number] [address] [place] [address] Oct, Other chronic pain G89.29 [facility] [address] [id number] [address] [place] [address] Sep, Other chronic pain G89.29 [facility] [address] [id number] [address] [place] [address] Aug, Other chronic pain G89.29 [facility] [address] [id number] [address] [place] [address] 11 Aug, 2017 Venous stasis ulcers, left I 83.029 [facility] [address] [facility] [id number] [address] [place] [address] July, Other chronic pain G89.29 [facility] [address] [facility] [id number] [address] [place] [address] July, Venous stasis ulcers, left I 83.029 and Snoring R06.83 [facility] [address] [facility] [id number] [address] [place] [address] Jun, Idiopathic chronic gout of m ultiple sites without tophus M1A.09X0 [facility] [address] [facility] [id number] [address] [place] [address] Jun, Acute renal insufficiency N2 8.9 [facility] [address] [facility] [id number] [address] [place] [address] Jun, Other chronic pain G89.29 [place] [address] [facility] [id number] [address] [place] [address] Jun, Acute renal insufficiency N2 8.9 [place] [address] [facility] [id number] [place] [address] [id number] Jun, Idiopathic chronic gout of multiple site s without tophus M1A.09X0 ; Essential hypertension I10 and Anticoagulant long-term use Z79.01 [place] [address] [facility] [id number] [address] [place] [address] Jun, Anticoagulant long-term use Z79.01 and Essential hypertension I10 [place] [address] [facility] [id number] [address] [place] [address] May, Idiopathic chronic gout of ultiple sites without tophus M1A.09X0 [place] [address] [facility] [id number] [address] [place] [address] May, [place] [address] [facility] [id number] [address] [place] [address] May, Essential hypertension I10 ; Pure hypercholesterolemia E78.00 ; Anticoagulant long-term use Z79.01 and Idiopathic chronic gout of multiple sites without tophus M1A.09X0 [place] [address] [facility] [id number] [address] [place] [address] May, Other chronic pain G89.29 [place] [address] [facility] [id number] [address] [place] [address] May, Anticoagulant long-term use Z79.01 [place] [address] [facility] [id number] [address] [place] [address] May, Chronic prescription opiate use Z79.899 ; Other chronic pain G89.29 ; Essential hypertension I10 ; Factor V Leiden D68.51 ; Anticoagulant long-term use Z79.01 ; Pure hypercholesterolemia E78.00 ; Venous stasis ulcers, left I83.029 ; Idiopathic chronic gout of multiple sites without tophus M1A.09X0 and Cellulitis of left lower extremity L03.116 [place] [address] [facility] [id number] [address] [place] [address] Apr, Other chronic pain G89.29 [place] [address] [facility] [id number] [address] [place] [address] Mar, Other chronic pain G89.29 [place] [address] [facility] [id number] [address] [place] [address] Mar, Factor V Leiden D68.51 ; Pur e hypercholesterolemia E78.00 and Other chronic pain G89.29 [place] [address] [facility] [id number] [address] [place] [address] Feb, Other chronic pain G89.29 [place] [address] [facility] [id number] [address] [place] [address] Jan, Idiopathic chronic gout of m ultiple sites without tophus M1A.09X0 [place] [address] [facility] [id number] [address] [place] [address] Jan, Other chronic pain G89.29 [place] [address] [facility] [id number] [address] [place] [address] Dec, Anticoagulant long-term use Z79.01 ; Factor V Leiden D68.51 and Other chronic pain G89.29 [place] [address] [facility] [id number] [address] [place] [address] Dec, Other chronic pain G89.29 [facility] [address] [facility] [id number] [address] [place] [address] Nov, Other chronic pain G89.29 [place] [address] [facility] [id number] [address] [place] [address] Oct, Other chronic pain G89.29 [facility] [address] [facility] [id number] [address] [place] [address] Sep, Anticoagulant long-term use Z79.01 [place] [address] [facility] [id number] [address] [place] [address] Sep, Chronic prescription opiate use Z79.899 ; Anticoagulant long-term use Z79.01 ; Essential hypertension I10 ; Pure hypercholesterolemia E78.00 ; Factor V Leiden D68.51 ; Venous stasis ulcers, left I83.029 ; Other chronic pain G89.29 and Idiopathic chronic gout of multiple sites without tophus M1A.09X0 [place] [address] [facility] [id number] [address] [place] [address] Aug, Anticoagulant long-term use Z79.01 [place] [address] [facility] [id number] [address] [place] [address] Aug, Other chronic pain G89.29 [place] [address] [facility] [id number] [address] [place] [address] Aug, Essential hypertension I10 a nd Factor V Leiden D68.[address] [place] [id number] [place] [address] [id number] Aug, Acute right ankle pain M25.571 and Tendo nitis of ankle M77.50 [place] [address] [facility] [id number] [address] [place] [address] Aug, [place] [address] [facility] [id number] [address] [place] [address] July, Other chronic pain G89.29 [place] [address] [facility] [id number] [address] [place] [address] Jun, Other chronic pain G89.29 [facility] [address] [id number] [address] [place] [address] Jun, Other chronic pain G89.29 [facility] [address] [facility] [id number] [address] [place] [address] Jun, Anticoagulant long-term use Z79.01 [facility] [address] [id number] [address] [place] [address] May, Other chronic pain G89.29 [facility] [address] [id number] [address] [place] [address] May, Anticoagulant long-term use Z79.01 [facility] [address] [id number] [address] [place] [address] May, Other chronic pain G89.29 [facility] [address] [facility] [id number] [address] [place] [address] Apr, Anticoagulant long-term use Z79.01 [facility] [address] [id number] [address] [place] [address] Apr, Other chronic pain G89.29 [facility] [address] [id number] [address] [place] [address] Apr, Anticoagulant long-term use Z79.01 and Pure hypercholesterolemia E78.00 [facility] [address] [id number] [address] [place] [address] Mar, [facility] [address] [id number] [address] [place] [address] Mar, Anticoagulant long-term use Z79.01 [facility] [address] [id number] [address] [place] [address] Mar, Other chronic pain G89.29 [facility] [address] [facility] [id number] [address] [place] [address] Feb, Essential hypertension I10 ; Chronic prescription opiate use Z79.899 ; Other chronic pain G89.29 ; Screening Z13.9 ; Factor V Leiden D68.51 ; Anticoagulant long-term use Z79.01 ; Venous stasis dermatitis of left lower extremity I83.12 and Pure hypercholesterolemia E78.00 [facility] [address] [facility] [id number] [address] [place] [address] 14 Jan, 2016 Anticoagulant long-term use Z79.01 [facility] [address] [id number] [address] [place] [address] 10 Jan, 2016 Anticoagulant long-term use Z79.01 [facility] [address] [id number] [address] [place] [address] 09 Jan, 2016 [facility] [address] [facility] [id number] [address] [place] [address] Jan, [facility] [address] [facility] [id number] [address] [place] [address] Dec, [facility] [address] [facility] [id number] [address] [place] [address] Nov, [facility] [address] [facility] [id number] [address] [place] [address] Oct, Anticoagulant long-term use Z79.01 [facility] [address] [facility] [id number] [address] [place] [address] Oct, [facility] [address] [facility] [id number] [address] [place] [address] Oct, Anticoagulant long-term use Z79.01 [facility] [address] [facility] [id number] [address] [place] [address] Sep, [facility] [address] [facility] [id number] [address] [place] [address] Aug, [facility] [address] [facility] [id number] [address] [place] [address] Aug, Chronic prescription opiate use Z79.899 ; Other chronic pain G89.29 ; Essential hypertension I10 and Pure hypercholesterolemia E78.0 [facility] [address] [facility] [id number] [address] [place] [address] July, Hyperlipidemia, group D E78. 3 and Anticoagulant long-term use Z79.01 [facility] [address] [facility] [id number] [address] [place] [address] July, Hyperlipidemia, group D E78. 3 ; Essential hypertension I10 and Factor V Leiden D68.51 [facility] [address] [facility] [id number] [address] [place] [address] July, Essential hypertension I10 [place] [address] [facility] [id number] [place] [address] Jun, Hyperlipidemia, group D E78. 3 [place] [address] [place] [id number] [address] [place] [address] Jun, Factor V Leiden D68.51 [place] [id number] [place] [address] May, Factor V Leiden D68.51 ; Hyp erlipidemia, group D E78.3 ; Essential hypertension I10 ; Other chronic pain G89.29 and Anticoagulant long-term use Z79.01 [place] [address] [place] [id number] [address] [place] [address] May, Anticoagulant long-term use Z79.01 [place] [address] [place] [id number] [address] [place] [address] May, Anticoagulant long-term use Z79.01 [place] [address] [facility] [id number] [address] [place] [address] May, [place] [address] [place] [id number] [address] [place] [address] Apr, [place] [address] [place] [id number] [address] [place] [address] Mar, [facility] [address] [place] [id number] [address] [place] [address] Mar, [facility] [address] [facility] [id number] [address] [place] [address] Feb, Anticoagulant long-term use Z79.01 [facility] [address] [facility] [id number] [address] [place] [address] 16 Feb, 2015 Chronic prescription opiate use Z79.899 ; Other chronic pain G89.29 ; Hyperlipidemia, group D E78.3 ; Factor V Leiden D68.51 and Anticoagulant long- term use Z79.01 [facility] [address] [facility] [id number] [address] [place] [address] Feb, [facility] [address] [facility] [id number] [address] [place] [address] Jan, [place] [address] [place] [id number] [address] [place] [address] Dec, Hyperlipidemia, unspecified E78.5 [facility] [address] [facility] [id number] [address] [place] [address] Dec, Cellulitis of left lower ext remity L03.116 ; Venous stasis ulcers, left I83.029 and Factor V Leiden D68.51 [facility] [address] [facility] [id number] [address] [place] [address] Dec, Hyperlipidemia 272.4 and Fac tor V Leiden 289.81 [place] [address] [place] [id number] [address] [place] [address] Dec, [place] [address] [facility] [id number] [address] [place] [address] Nov, 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 [place] [address] [facility] [id number] [address] [place] [address] Nov, [place] [address] [facility] [id number] [address] [place] [address] Nov, [facility] [address] [place] [id number] [address] [place] [address] Nov, [facility] [address] [facility] [id number] [address] [place] [address] Oct, [facility] [address] [facility] [id number] [address] [place] [address] Oct, Hyperlipidemia 272.4 ; Chron ic pain disorder 338.4 ; Venous stasis ulcer of left lower extremity 454.0 and 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 [facility] [address] [facility] [id number] [address] [place] [address] Sep, [facility] [address] [facility] [id number] [address] [place] [address] Sep, [facility] [address] [place] [id number] [address] [place] [address] Sep, Hyperlipidemia 272.4 and Fac tor V Leiden 289.81 [facility] [address] [place] [id number] [address] [place] [address] Aug, [facility] [address] [facility] [id number] [address] [place] [address] Aug, 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 [facility] [address] [facility] [id number] [address] [place] [id number] July, [facility] [address] [id number] [address] [place] [id number] July, Essential hypertension, fito gn 401.1 ; 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 ; Chronic pain disorder 338.4 ; Hyperlipidemia 272.4 and Venous stasis ulcer of left lower extremity 454.0 [facility] [address] [facility] [id number] [address] [place] [phone] Jun, [facility] [address] [id number] [address] [place] [phone] Jun, [facility] [address] [id number] [address] [place] [phone] May, [facility] [address] [id number] [address] [place] [address], [place] [address] 13 May, 2014 [facility] [address] [id number] [address] [place] [address], [place] [address] Apr, [facility] [address] [id number] [address] [place] [address], [place] [address] 20 Apr, 2014 [facility] [address] [id number] [address] [place] [address], [place] [address] 18 Apr, 2014 [facility] [address] [id number] [address] [place] [address], [place] [address] 18 Apr, 2014 [facility] [address] [id number] [address] [place] [address], [place] [address] Apr, [facility] [address] [id number] [address] [place] [address], [place] [address] Apr, [facility] [address] [id number] [address] [place] [address], [place] [address] 15 Mar, 2014 [facility] [address] [id number] [address] [place] [address], [place] [address] Mar, [facility] [address] [id number] [address] [place] [address], [place] [address] Mar, [facility] [address] [id number] [address] [place] [address], [place] [address] Mar, [facility] [address] [id number] [address] [place] [address], [place] [address] Feb, [facility] [address] [id number] [address] [place] [address], [place] [address] Feb, [facility] [address] [id number] [address] [place] [address], [place] [address] Feb, [facility] [address] [id number] [address] [place] [address], [place] [address] Feb, [facility] [address] [id number] [address] [place] [address], [place] [address] Jan, [facility] [facility] [address] [id number] [address] [place] [address], [place] [address] Jan, [facility] [address] [id number] [address] [place] [address], [place] [address] Jan, [facility] [address] [id number] [address] [place] [address], [place] [address] Jan, [facility] [address] [id number] [address] [place] [address], [place] [address] Jan, [facility] [address] [id number] [address] [place] [address], [place] [address] Jan, [facility] [address] [id number] [address] [place] [address], [place] [address] Dec, [facility] [address] [id number] [address] [place] [address], [place] [address] Dec, [facility] [address] [id number] [address] [place] [address], [place] [address] Oct, [facility] [address] [id number] [address] [place] [address], [place] [address] Oct, [facility] [address] [id number] [address] [place] [address], [place] [address] Sep, [facility] [address] [id number] [address] [place] [address], [place] [address] Sep, [facility] [address] [id number] [address] [place] [address], [place] [address] Sep, [facility] [address] [id number] [address] [place] [address], [place] [address] Sep, [facility] [address] [id number] [address] [place] [address], [place] [address] Aug, [facility] [address] [id number] [address] [place] [address], [place] [address] Aug, [facility] [address] [id number] [address] [place] [address], [place] [address] July, [facility] [address] [id number] [address] [place] [address], [place] [address] July, [facility] [address] [id number] [address] [place] [address], [place] [address] Jun, [facility] [address] [id number] [address] [place] [address], [place] [address] Jun, [facility] [address] [id number] [address] [place] [address], [place] [address] May, [facility] [address] [id number] [address] [place] [address], [place] [address] May, [facility] [address] [id number] [address] [place] [address], [place] [address] Apr, [facility] [address] [id number] [address] [place] [address], [place] [address] Apr, [facility] [address] [id number] [address] [place] [address], [place] [address] Mar, [facility] [address] [id number] [address] [place] [address], [place] [address] Mar, [facility] [address] [id number] [address] [place] [address], [place] [address] Jan, [facility] [address] [id number] [address] [place] [address], [place] [address] Jan, [facility] [address] [id number] [address] [place] [address], [place] [address] Jan, [facility] [address] [id number] [address] [place] [address], [place] [address] Jan, [facility] [address] [id number] [address] [place] [address], [place] [address] Jan, [facility] [address] [id number] [address] [place] [address], [place] [address] Dec, [facility] [address] [id number] [address] [place] [address], [place] [address] Dec, [facility] [address] [id number] [address] [place] [address], [place] [address] Dec, [facility] [address] [id number] [address] [place] [address], [place] [address] Nov, [facility] [address] [id number] [address] [place] [address], [place] [address] Nov, [facility] [address] [id number] [address] [place] [address], [place] [address] Sep, [facility] [address] [id number] [address] [place] [address], [place] [address] Sep, [facility] [address] [id number] [address] [place] [address], [place] [address] Aug, [facility] [address] [id number] [address] [place] [address], [place] [address] Aug, [facility] [address] [id number] [place] [id number] July, [facility] [address] [id number] [place] [id number] Jun, [facility] [address] [id number] [place] [id number] Apr, [facility] [address] [id number] [place] [id number] Mar, [facility] [address] [id number] [address] [place] [address], [place] [address] Mar, [facility] [address] [id number] [place] [id number] Mar, [facility] [address] [id number] [address] [place] [address], [place] [address] Mar, [facility] [address] [id number] [place] [id number] Feb, [facility] [address] [id number] [address] [place] [address] Feb, [facility] [address] [id number] [place] [id number] Feb, [facility] [address] [facility] [id number] [address] [place] [address] Feb, [facility] [address] [id number] [place] [id number] Oct, [facility] [address] [id number] [place] [id number] Oct, [facility] [address] [id number] [place] [id number] July, [facility] [address] [id number] [place] [id number] July, [facility] [address] [id number] [place] [id number] Jun, [facility] [address] [id number] [place] [id number] Jun, [facility] [address] [id number] [place] [id number] Jun, [facility] [address] [id number] [place] [id number] Mar, [facility] [address] [id number] [place] [id number] Mar, [facility] [address] [facility] [id number] [address] [place] [address] Feb, [facility] [address] [facility] [id number] [address] [place] [address] Feb, [facility] [address] [facility] [id number] [address] [place] [address] Jan, [facility] [address] [facility] [id number] [address] [place] [address] Jan, [facility] [address] [facility] [id number] [address] [place] [address] Jan, [facility] [address] [facility] [id number] [address] [place] [address] Jan, [facility] [address] [facility] [id number] [address] [place] [address] Jan, [facility] [address] [facility] [id number] [address] [place] [address] Aug, [facility] [address] [facility] [id number] [address] [place] [address] 17 Apr, 2010 IMMUNIZATIONS No Known Immunizations SOCIAL HISTORY Never Assessed REASON FOR VISIT EMR-[facility] PLAN OF CARE VITAL SIGNS MEDICATIONS Unknown [...]
--- OUTSIDE RECORDS SUMMARY | 2019-11-08 13:06 | XMS REPORT ---
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 Name Role Phone DIANADAVIDAVANI Unavailable PROBLEMS Type Condition ICD9-CM Code LNN51-HD Code Onset Dates Condition S tatus SNOMED Code Problem Factor V Leiden D68.51 Active 3070 64979 Problem Post-phlebitic syndrome I87.009 Active 08115137 Problem Anticoagulant long-term use Z79.01 Ac tive 606297482 Problem Essential hypertension I10 Active 12516185 Problem Other chronic pain G89.29 Active 8 9583930 Problem Venous stasis ulcers, left I83.029 Act ozzy 268701818 Problem 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 23919935 Problem Congenital single kidney Q60.0 Activ e 46863208 Problem Venous anomaly Q27.9 Active 50330 4003 Problem Pure hypercholesterolemia E78.00 Acti ve 467080969 Problem Chronic prescription opiate use Z79.899 Active [id number] ALLERGIES No Information ENCOUNTERS Encounter Location Date Diagnosis [address] [id number] [address] [place] [address] Feb, Idiopathic chronic gout of m ultiple sites without tophus M1A.09X0 [place] [address] [id number] [place] [id number] Feb, Anticoagulant long-term use Z79.01 and I diopathic chronic gout of multiple sites without tophus M1A.09X0 [address] [id number] [address] [place] [address] Feb, Anticoagulant long-term use Z79.01 and Idiopathic chronic gout of multiple sites without tophus M1A.09X0 [place] [address] [place] [id number] [address] [place] [address] Feb, [facility] [address] [id number] [address] [place] [address] Feb, Other chronic pain G89.29 [facility] [address] [id number] [address] [place] [address] Jan, Other chronic pain G89.29 [facility] [address] [id number] [address] [place] [address] Dec, Other chronic pain G89.29 [facility] [address] [facility] [id number] [address] [place] [address] Dec, Anticoagulant long-term use Z79.01 [facility] [address] [facility] [id number] [address] [place] [address] Dec, Chronic prescription opiate use Z79.899 ; Factor V Leiden D68.51 ; Other chronic pain G89.29 and Anticoagulant long-term use Z79.01 [facility] [address] [id number] [address] [place] [address] Nov, Other chronic pain G89.29 [facility] [address] [facility] [id number] [address] [place] [address] Oct, Other chronic pain G89.29 [facility] [address] [facility] [id number] [address] [place] [address] Sep, Other chronic pain G89.29 [facility] [address] [facility] [id number] [address] [place] [address] Aug, Other chronic pain G89.29 [facility] [address] [id number] [address] [place] [address] Aug, Venous stasis ulcers, left I 83.029 [facility] [address] [id number] [address] [place] [address] July, Other chronic pain G89.29 [facility] [address] [facility] [id number] [address] [place] [address] July, Venous stasis ulcers, left I 83.029 and Snoring R06.83 [place] [address] [facility] [id number] [address] [place] [address] Jun, Idiopathic chronic gout of ultiple sites without tophus M1A.09X0 [place] [address] [facility] [id number] [address] [place] [address] Jun, Acute renal insufficiency N2 8.9 [place] [address] [facility] [id number] [address] [place] [address] Jun, Other chronic pain G89.29 [place] [address] [facility] [id number] [address] [place] [address] Jun, Acute renal insufficiency N2 8.[address] [id number] [place] [address] [id number] Jun, Idiopathic chronic gout of multiple site s without tophus M1A.09X0 ; Essential hypertension I10 and Anticoagulant long-term use Z79.01 [place] [address] [facility] [id number] [address] [place] [address] Jun, Anticoagulant long-term use Z79.01 and Essential hypertension I10 [place] [address] [facility] [id number] [address] [place] [address] May, Idiopathic chronic gout of ultiple sites without tophus M1A.09X0 [place] [address] [facility] [id number] [address] [place] [address] May, [place] [address] [facility] [id number] [address] [place] [address] May, Essential hypertension I10 ; Pure hypercholesterolemia E78.00 ; Anticoagulant long-term use Z79.01 and Idiopathic chronic gout of multiple sites without tophus M1A.09X0 [place] [address] [facility] [id number] [address] [place] [address] May, Other chronic pain G89.29 [place] [address] [facility] [id number] [address] [place] [address] May, Anticoagulant long-term use Z79.01 [place] [address] [facility] [id number] [address] [place] [address] May, Chronic prescription opiate use Z79.899 ; Other chronic pain G89.29 ; Essential hypertension I10 ; Factor V Leiden D68.51 ; Anticoagulant long-term use Z79.01 ; Pure hypercholesterolemia E78.00 ; Venous stasis ulcers, left I83.029 ; Idiopathic chronic gout of multiple sites without tophus M1A.09X0 and Cellulitis of left lower extremity L03.116 [place] [address] [facility] [id number] [address] [place] [address] Apr, Other chronic pain G89.29 [place] [address] [facility] [id number] [address] [place] [address] Mar, Other chronic pain G89.29 [place] [address] [facility] [id number] [address] [place] [address] Mar, Factor V Leiden D68.51 ; Pur e hypercholesterolemia E78.00 and Other chronic pain G89.29 [place] [address] [facility] [id number] [address] [place] [address] Feb, Other chronic pain G89.29 [place] [address] [facility] [id number] [address] [place] [address] Jan, Idiopathic chronic gout of m ultiple sites without tophus M1A.09X0 [place] [address] [facility] [id number] [address] [place] [address] Jan, Other chronic pain G89.29 [place] [address] [facility] [id number] [address] [place] [address] Dec, Anticoagulant long-term use Z79.01 ; Factor V Leiden D68.51 and Other chronic pain G89.29 [place] [address] [facility] [id number] [address] [place] [address] Dec, Other chronic pain G89.29 [facility] [address] [facility] [id number] [address] [place] [address] Nov, Other chronic pain G89.29 [facility] [address] [facility] [id number] [address] [place] [address] Oct, Other chronic pain G89.29 [facility] [address] [facility] [id number] [address] [place] [address] Sep, Anticoagulant long-term use Z79.01 [place] [address] [facility] [id number] [address] [place] [address] Sep, Chronic prescription opiate use Z79.899 ; Anticoagulant long-term use Z79.01 ; Essential hypertension I10 ; Pure hypercholesterolemia E78.00 ; Factor V Leiden D68.51 ; Venous stasis ulcers, left I83.029 ; Other chronic pain G89.29 and Idiopathic chronic gout of multiple sites without tophus M1A.09X0 [place] [address] [facility] [id number] [address] [place] [address] Aug, Anticoagulant long-term use Z79.01 [place] [address] [facility] [id number] [address] [place] [address] Aug, Other chronic pain G89.29 [place] [address] [facility] [id number] [address] [place] [address] Aug, Essential hypertension I10 a nd Factor V Leiden D68.[address] [place] [address] [id number] [place] [address] [id number] 15 Aug, 2016 Acute right ankle pain M25.571 and Tendo nitis of ankle M77.50 [place] [address] [facility] [id number] [address] [place] [address] Aug, [place] [address] [facility] [id number] [address] [place] [address] July, Other chronic pain G89.29 [place] [address] [id number] [address] [place] [address] Jun, Other chronic pain G89.29 [facility] [address] [id number] [address] [place] [address] Jun, Other chronic pain G89.29 [facility] [address] [facility] [id number] [address] [place] [address] Jun, Anticoagulant long-term use Z79.01 [facility] [address] [id number] [address] [place] [address] May, Other chronic pain G89.29 [facility] [address] [id number] [address] [place] [address] May, Anticoagulant long-term use Z79.01 [facility] [address] [facility] [id number] [address] [place] [address] May, Other chronic pain G89.29 [facility] [address] [id number] [address] [place] [address] Apr, Anticoagulant long-term use Z79.01 [facility] [address] [id number] [address] [place] [address] Apr, Other chronic pain G89.29 [facility] [address] [facility] [id number] [address] [place] [address] Apr, Anticoagulant long-term use Z79.01 and Pure hypercholesterolemia E78.00 [facility] [address] [id number] [address] [place] [address] Mar, [facility] [address] [id number] [address] [place] [address] Mar, Anticoagulant long-term use Z79.01 [facility] [address] [id number] [address] [place] [address] Mar, Other chronic pain G89.29 [facility] [address] [id number] [address] [place] [address] Feb, Essential hypertension I10 ; Chronic prescription opiate use Z79.899 ; Other chronic pain G89.29 ; Screening Z13.9 ; Factor V Leiden D68.51 ; Anticoagulant long-term use Z79.01 ; Venous stasis dermatitis of left lower extremity I83.12 and Pure hypercholesterolemia E78.00 [facility] [address] [facility] [id number] [address] [place] [address] 14 Jan, 2016 Anticoagulant long-term use Z79.01 [facility] [address] [id number] [address] [place] [address] Jan, Anticoagulant long-term use Z79.01 [facility] [address] [facility] [id number] [address] [place] [address] Jan, [facility] [address] [facility] [id number] [address] [place] [address] Jan, [facility] [address] [facility] [id number] [address] [place] [address] Dec, [facility] [address] [facility] [id number] [address] [place] [address] Nov, [facility] [address] [facility] [id number] [address] [place] [address] Oct, Anticoagulant long-term use Z79.01 [facility] [address] [facility] [id number] [address] [place] [address] Oct, [facility] [address] [facility] [id number] [address] [place] [address] Oct, Anticoagulant long-term use Z79.01 [facility] [address] [id number] [address] [place] [address] Sep, [facility] [address] [facility] [id number] [address] [place] [address] Aug, [facility] [address] [facility] [id number] [address] [place] [address] 15 Jose, 2016 Chronic prescription opiate use Z79.899 ; Other chronic pain G89.29 ; Essential hypertension I10 and Pure hypercholesterolemia E78.0 [facility] [address] [facility] [id number] [address] [place] [address] July, Hyperlipidemia, group D E78. 3 and Anticoagulant long-term use Z79.01 [facility] [address] [facility] [id number] [address] [place] [address] July, Hyperlipidemia, group D E78. 3 ; Essential hypertension I10 and Factor V Leiden D68.51 [facility] [address] [facility] [id number] [address] [place] [address] July, Essential hypertension I10 [facility] [address] [facility] [id number] [address] [place] [address] Jun, Hyperlipidemia, group D E78. 3 [facility] [address] [facility] [id number] [address] [place] [address] Jun, Factor V Leiden D68.51 [facility] [address] [facility] [id number] [address] [place] [address] May, Factor V Leiden D68.51 ; Hyp erlipidemia, group D E78.3 ; Essential hypertension I10 ; Other chronic pain G89.29 and Anticoagulant long-term use Z79.01 [facility] [address] [facility] [id number] [address] [place] [address] May, Anticoagulant long-term use Z79.01 [facility] [address] [facility] [id number] [address] [place] [address] May, Anticoagulant long-term use Z79.01 [facility] [address] [facility] [id number] [address] [place] [address] May, [facility] [address] [facility] [id number] [address] [place] [address] Apr, [facility] [address] [facility] [id number] [address] [place] [address] Mar, [facility] [address] [facility] [id number] [address] [place] [address] Mar, [facility] [address] [facility] [id number] [address] [place] [address] Feb, Anticoagulant long-term use Z79.01 [facility] [address] [facility] [id number] [address] [place] [address] 16 Feb, 2015 Chronic prescription opiate use Z79.899 ; Other chronic pain G89.29 ; Hyperlipidemia, group D E78.3 ; Factor V Leiden D68.51 and Anticoagulant long- term use Z79.01 [facility] [address] [facility] [id number] [address] [place] [address] Feb, [facility] [address] [facility] [id number] [address] [place] [address] Jan, [facility] [address] [address] Dec, Hyperlipidemia, unspecified E78.5 [facility] [address] [facility] [id number] [address] [place] [address] Dec, Cellulitis of left lower ext remity L03.116 ; Venous stasis ulcers, left I83.029 and Factor V Leiden D68.51 [facility] [address] [facility] [id number] [address] [place] [address] Dec, Hyperlipidemia 272.4 and Fac tor V Leiden 289.81 [facility] [address] [facility] [id number] [address] [place] [address] Dec, [facility] [address] [facility] [id number] [address] [place] [address] Nov, 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 [facility] [address] [facility] [id number] [address] [place] [address] Nov, [facility] [address] [place] [id number] [address] [place] [address] Nov, [place] [address] [facility] [id number] [address] [place] [address] Nov, [facility] [address] [facility] [id number] [address] [place] [address] Oct, [facility] [address] [facility] [id number] [address] [place] [address] Oct, Hyperlipidemia 272.4 ; Chron ic pain disorder 338.4 ; Venous stasis ulcer of left lower extremity 454.0 and 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 [facility] [address] [facility] [id number] [address] [place] [address] Sep, [facility] [address] [facility] [id number] [place] [address] Sep, [facility] [address] [place] [id number] [place] [address] Sep, Hyperlipidemia 272.4 and Fac tor V Leiden 289.81 [facility] [address] [facility] [id number] [address] [place] [address] Aug, [facility] [address] [facility] [id number] [address] [place] [address] Aug, 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 [facility] [address] [place] [id number] [address] [place] [address] July, [facility] [address] [place] [id number] [address] [place] [address] July, Essential hypertension, fito gn 401.1 ; 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 ; Chronic pain disorder 338.4 ; Hyperlipidemia 272.4 and Venous stasis ulcer of left lower extremity 454.0 [facility] [address] [address] Jun, [facility] [address] [facility] [id number] [address] [place] [address] Jun, [facility] [address] [address] May, [facility] [address] [id number] [address] [place] [address], [place] [address] 13 May, 2014 [facility] [address] [id number] [address] [place] [address], [place] [address] 20 Apr, 2014 [facility] [address] [id number] [address] [place] [address], [place] [address] 20 Apr, 2014 [facility] [address] [id number] [address] [place] [address], [place] [address] 18 Apr, 2014 [facility] [address] [id number] [address] [place] [address], [place] [address] 18 Apr, 2014 [facility] [address] [id number] [address] [place] [address], [place] [address] Apr, [facility] [address] [id number] [address] [place] [address], [place] [address] Apr, [facility] [address] [id number] [address] [place] [address], [place] [address] Mar, [facility] [address] [id number] [address] [place] [address], [place] [address] Mar, [facility] [address] [id number] [address] [place] [address], [place] [address] Mar, [facility] [address] [id number] [address] [place] [address], [place] [address] Mar, [facility] [address] [id number] [address] [place] [address], [place] [address] Feb, [facility] [address] [id number] [address] [place] [address], [place] [address] Feb, [facility] [address] [id number] [address] [place] [address], [place] [address] 16 Feb, 2014 [facility] [address] [id number] [address] [place] [address], [place] [address] 16 Feb, 2014 [facility] [address] [id number] [address] [place] [address], [place] [address] Jan, [facility] [address] [id number] [address] [place] [address], [place] [address] Jan, [facility] [address] [id number] [address] [place] [address], [place] [address] Jan, [facility] [address] [id number] [address] [place] [address], [place] [address] Jan, [facility] [address] [id number] [address] [place] [address], [place] [address] Jan, [facility] [address] [id number] [address] [place] [address], [place] [address] Jan, [facility] [address] [id number] [address] [place] [address], [place] [address] Dec, [facility] [address] [id number] [address] [place] [address], [place] [address] Dec, [facility] [address] [id number] [address] [place] [address], [place] [address] Oct, [facility] [address] [id number] [address] [place] [address], [place] [address] Oct, [facility] [address] [id number] [address] [place] [address], [place] [address] Sep, [facility] [address] [id number] [address] [place] [address], [place] [address] Sep, [facility] [address] [id number] [address] [place] [address], [place] [address] Sep, [facility] [address] [id number] [address] [place] [address], [place] [address] Sep, [facility] [address] [id number] [address] [place] [address], [place] [address] Aug, [facility] [address] [id number] [address] [place] [address], [place] [address] Aug, [facility] [address] [id number] [address] [place] [address], [place] [address] July, [facility] [address] [id number] [address] [place] [address], [place] [address] July, [facility] [address] [id number] [address] [place] [address], [place] [address] Jun, [facility] [address] [id number] [address] [place] [address], [place] [address] Jun, [facility] [address] [id number] [address] [place] [address], [place] [address] May, [facility] [address] [id number] [address] [place] [address], [place] [address] May, [facility] [address] [id number] [address] [place] [address], [place] [address] Apr, [facility] [address] [id number] [address] [place] [address], [place] [id number] Apr, [facility] [address] [id number] [address] [place] [address], [place] [address] Mar, [facility] [address] [id number] [address] [place] [address], [place] [address] Mar, [facility] [address] [id number] [address] [place] [address], [place] [address] Jan, [facility] [address] [id number] [address] [place] [address], [place] [address] Jan, [facility] [address] [id number] [address] [place] [address], [place] [address] Jan, [facility] [address] [id number] [address] [place] [address], [place] [address] Jan, [facility] [address] [id number] [address] [place] [address], [place] [address] Jan, [facility] [address] [id number] [address] [place] [address], [place] [address] Dec, [facility] [address] [id number] [address] [place] [address], [place] [address] Dec, [facility] [address] [id number] [address] [place] [address], [place] [address] Dec, [facility] [address] [id number] [address] [place] [address], [place] [address] Nov, [facility] [address] [id number] [address] [place] [address], [place] [address] Nov, [facility] [address] [id number] [address] [place] [address], [place] [address] Sep, [facility] [address] [id number] [address] [place] [address], [place] [address] Sep, [facility] [address] [id number] [address] [place] [address], [place] [address] Aug, [facility] [address] [id number] [address] [place] [address], [place] [address] Aug, [facility] [address] [id number] [place] [id number] July, [facility] [address] [id number] [place] [id number] Jun, [facility] [address] [id number] [place] [id number] Apr, [facility] [address] [id number] [place] [id number] Mar, [facility] [address] [id number] [address] [place] [address], [place] [address] Mar, [facility] [address] [id number] [place] [id number] Mar, [facility] [address] [id number] [address] [place] [address], [place] [address] Mar, [facility] [address] [id number] [place] [id number] Feb, [facility] [address] [facility] [id number] [address] [place] [address] Feb, [facility] [address] [id number] [place] [id number] Feb, [facility] [address] [facility] [id number] [address] [place] [address] Feb, [facility] [address] [id number] [place] [id number] Oct, [facility] [address] [id number] [place] [id number] Oct, [facility] [address] [id number] [place] [id number] July, [facility] [address] [id number] [place] [id number] July, [facility] [address] [id number] [place] [id number] Jun, [facility] [address] [id number] [place] [id number] Jun, [facility] [address] [id number] [place] [id number] Jun, [facility] [address] [id number] [place] [id number] Mar, [facility] [address] [id number] [place] [id number] Mar, [facility] [address] [facility] [id number] [address] [place] [address] Feb, [facility] [address] [facility] [id number] [address] [place] [address] Feb, [facility] [address] [facility] [id number] [address] [place] [address] Jan, [facility] [address] [facility] [id number] [address] [place] [address] Jan, [facility] [address] [facility] [id number] [address] [place] [address] Jan, [facility] [address] [facility] [id number] [address] [address] Jan, [facility] [address] [facility] [id number] [address] [place] [address] Jan, [facility] [address] [facility] [id number] [address] [place] [id number] Aug, [facility] [address] [facility] [id number] [address] [place] [address] Apr, IMMUNIZATIONS No Known Immunizations SOCIAL HISTORY Never Assessed REASON FOR VISIT med order/lab defer PLAN OF CARE VITAL SIGNS MEDICATIONS Medication Instructions Dosage Frequency Start Date End Date Duration S sahil Allopurinol 100 mg Orally Once a day 2 tablet 24h Feb, 30 day(s) Active RESULTS No Results PROCEDURES No Known [...]
--- OUTSIDE RECORDS SUMMARY | 2019-11-08 13:06 | XMS REPORT ---
Author Author Zana ORTIZ Organization [facility] Address [address] [place] [address] Care Team Providers Care Health Education Specialist Name Role Phone DIANADAVIDAVANI Unavailable PROBLEMS Type Condition ICD9-CM Code HAJ89-HX Code Onset Dates Condition S tatus SNOMED Code Problem Factor V Leiden D68.51 Active 3070 18820 Problem Post-phlebitic syndrome I87.009 Active 33700507 Problem Anticoagulant long-term use Z79.01 Ac tive 776661110 Problem Essential hypertension I10 Active 16789581 Problem Other chronic pain G89.29 Active 8 6455245 Problem Venous stasis ulcers, left I83.029 Act ozzy 816883921 Problem 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 33353611 Problem Congenital single kidney Q60.0 Activ e 76938911 Problem Venous anomaly Q27.9 Active 48772 4003 Problem Pure hypercholesterolemia E78.00 Acti ve 431373834 Problem Chronic prescription opiate use Z79.899 Active 460217131 ALLERGIES No Information ENCOUNTERS Encounter Location Date Diagnosis [id number] [place] [address] [id number] Feb, Anticoagulant long-term use Z79.01 and I diopathic chronic gout of multiple sites without tophus M1A.09X0 [facility] [address] [facility] [id number] [address] [place] [address] Feb, Anticoagulant long-term use Z79.01 and Idiopathic chronic gout of multiple sites without tophus M1A.09X0 [facility] [address] [facility] [id number] [address] [place] [address] Feb, [facility] [address] [facility] [id number] [address] [place] [address] Feb, Other chronic pain G89.29 [facility] [address] [id number] [address] [place] [address] Jan, Other chronic pain G89.29 [facility] [address] [id number] [address] [place] [address] Dec, Other chronic pain G89.29 [facility] [address] [id number] [address] [place] [address] Dec, Anticoagulant long-term use Z79.01 [facility] [address] [id number] [address] [place] [address] Dec, Chronic prescription opiate use Z79.899 ; Factor V Leiden D68.51 ; Other chronic pain G89.29 and Anticoagulant long-term use Z79.01 [facility] [address] [facility] [id number] [address] [place] [address] Nov, Other chronic pain G89.29 [facility] [address] [id number] [address] [place] [address] Oct, Other chronic pain G89.29 [facility] [address] [id number] [address] [place] [address] Sep, Other chronic pain G89.29 [facility] [address] [id number] [address] [place] [address] Aug, Other chronic pain G89.29 [facility] [address] [id number] [address] [place] [address] Aug, Venous stasis ulcers, left I 83.029 [facility] [address] [id number] [address] [place] [address] July, Other chronic pain G89.29 [facility] [address] [facility] [id number] [address] [place] [address] July, Venous stasis ulcers, left I 83.029 and Snoring R06.83 [facility] [address] [id number] [address] [place] [address] Jun, Idiopathic chronic gout of m ultiple sites without tophus M1A.09X0 [place] [address] [facility] [id number] [address] [place] [address] Jun, Acute renal insufficiency N2 8.9 [place] [address] [facility] [id number] [address] [place] [address] Jun, Other chronic pain G89.29 [place] [address] [facility] [id number] [address] [place] [address] Jun, Acute renal insufficiency N2 8.[address] [id number] [place] [id number] Jun, Idiopathic chronic gout of multiple site s without tophus M1A.09X0 ; Essential hypertension I10 and Anticoagulant long-term use Z79.01 [place] [address] [place] [id number] [address] [place] [address] Jun, Anticoagulant long-term use Z79.01 and Essential hypertension I10 [place] [address] [facility] [id number] [address] [place] [address] May, Idiopathic chronic gout of m ultiple sites without tophus M1A.09X0 [place] [address] [facility] [id number] [address] [place] [address] May, [place] [address] [facility] [id number] [address] [place] [address] May, Essential hypertension I10 ; Pure hypercholesterolemia E78.00 ; Anticoagulant long-term use Z79.01 and Idiopathic chronic gout of multiple sites without tophus M1A.09X0 [place] [address] [facility] [id number] [address] [place] [address] May, Other chronic pain G89.29 [place] [address] [facility] [id number] [address] [place] [address] May, Anticoagulant long-term use Z79.01 [place] [address] [facility] [id number] [address] [place] [address] May, Chronic prescription opiate use Z79.899 ; Other chronic pain G89.29 ; Essential hypertension I10 ; Factor V Leiden D68.51 ; Anticoagulant long-term use Z79.01 ; Pure hypercholesterolemia E78.00 ; Venous stasis ulcers, left I83.029 ; Idiopathic chronic gout of multiple sites without tophus M1A.09X0 and Cellulitis of left lower extremity L03.116 [place] [address] [facility] [id number] [address] [place] [address] Apr, Other chronic pain G89.29 [place] [address] [facility] [id number] [address] [place] [address] Mar, Other chronic pain G89.29 [place] [address] [facility] [id number] [address] [place] [address] Mar, Factor V Leiden D68.51 ; Pur e hypercholesterolemia E78.00 and Other chronic pain G89.29 [place] [address] [facility] [id number] [address] [place] [address] Feb, Other chronic pain G89.29 [place] [address] [facility] [id number] [address] [place] [address] Jan, Idiopathic chronic gout of m ultiple sites without tophus M1A.09X0 [place] [address] [facility] [id number] [address] [place] [address] Jan, Other chronic pain G89.29 [place] [address] [facility] [id number] [address] [place] [address] Dec, Anticoagulant long-term use Z79.01 ; Factor V Leiden D68.51 and Other chronic pain G89.29 [place] [address] [facility] [id number] [address] [place] [address] Dec, Other chronic pain G89.29 [place] [address] [place] [id number] [address] [place] [address] Nov, Other chronic pain G89.29 [facility] [address] [facility] [id number] [address] [place] [address] Oct, Other chronic pain G89.29 [facility] [address] [facility] [id number] [address] [place] [address] Sep, Anticoagulant long-term use Z79.01 [facility] [address] [facility] [id number] [address] [place] [address] Sep, Chronic prescription opiate use Z79.899 ; Anticoagulant long-term use Z79.01 ; Essential hypertension I10 ; Pure hypercholesterolemia E78.00 ; Factor V Leiden D68.51 ; Venous stasis ulcers, left I83.029 ; Other chronic pain G89.29 and Idiopathic chronic gout of multiple sites without tophus M1A.09X0 [place] [address] [facility] [id number] [address] [place] [address] Aug, Anticoagulant long-term use Z79.01 [place] [address] [facility] [id number] [address] [place] [address] Aug, Other chronic pain G89.29 [place] [address] [facility] [id number] [address] [place] [address] Aug, Essential hypertension I10 a nd Factor V Leiden D68.[address] [id number] [place] [address] [id number] Aug, Acute right ankle pain M25.571 and Tendo nitis of ankle M77.50 [place] [id number] [facility] [id number] [address] [place] [address] Aug, [place] [address] [facility] [id number] [address] [place] [address] July, Other chronic pain G89.29 [place] [address] [facility] [id number] [address] [place] [address] Jun, Other chronic pain G89.29 [place] [address] [facility] [id number] [address] [place] [address] Jun, Other chronic pain G89.29 [facility] [address] [facility] [id number] [address] [place] [address] Jun, Anticoagulant long-term use Z79.01 [facility] [address] [facility] [id number] [address] [place] [address] May, Other chronic pain G89.29 [facility] [address] [facility] [id number] [address] [place] [address] May, Anticoagulant long-term use Z79.01 [facility] [address] [facility] [id number] [address] [place] [address] May, Other chronic pain G89.29 [facility] [address] [facility] [id number] [address] [place] [address] Apr, Anticoagulant long-term use Z79.01 [facility] [address] [facility] [id number] [address] [place] [address] Apr, Other chronic pain G89.29 [facility] [address] [facility] [id number] [address] [place] [address] Apr, Anticoagulant long-term use Z79.01 and Pure hypercholesterolemia E78.00 [facility] [address] [facility] [id number] [address] [place] [address] Mar, [facility] [address] [facility] [id number] [address] [place] [address] Mar, Anticoagulant long-term use Z79.01 [facility] [address] [facility] [id number] [address] [place] [address] Mar, Other chronic pain G89.29 [facility] [address] [facility] [id number] [address] [place] [address] Feb, Essential hypertension I10 ; Chronic prescription opiate use Z79.899 ; Other chronic pain G89.29 ; Screening Z13.9 ; Factor V Leiden D68.51 ; Anticoagulant long-term use Z79.01 ; Venous stasis dermatitis of left lower extremity I83.12 and Pure hypercholesterolemia E78.00 [facility] [address] [facility] [id number] [address] [place] [address] 14 Jan, 2016 Anticoagulant long-term use Z79.01 [facility] [address] [id number] [address] [place] [address] Jan, Anticoagulant long-term use Z79.01 [facility] [address] [id number] [address] [place] [address] Jan, [facility] [address] [id number] [address] [place] [address] Jan, [facility] [address] [facility] [id number] [address] [place] [address] Dec, [facility] [address] [facility] [id number] [address] [place] [address] Nov, [facility] [address] [facility] [id number] [address] [place] [address] Oct, Anticoagulant long-term use Z79.01 [facility] [address] [facility] [id number] [address] [place] [address] Oct, [facility] [address] [facility] [id number] [address] [place] [address] Oct, Anticoagulant long-term use Z79.01 [facility] [address] [facility] [id number] [address] [place] [address] Sep, [facility] [address] [facility] [id number] [address] [place] [address] Aug, [facility] [address] [place] [id number] [place] [address] Aug, Chronic prescription opiate use Z79.899 ; Other chronic pain G89.29 ; Essential hypertension I10 and Pure hypercholesterolemia E78.0 [facility] [address] [place] [id number] [address] [place] [address] July, Hyperlipidemia, group D E78. 3 and Anticoagulant long-term use Z79.01 [facility] [address] [facility] [id number] [address] [place] [address] July, Hyperlipidemia, group D E78. 3 ; Essential hypertension I10 and Factor V Leiden D68.51 [facility] [address] [facility] [id number] [address] [place] [address] July, Essential hypertension I10 [facility] [address] [facility] [id number] [address] [place] [address] Jun, Hyperlipidemia, group D E78. 3 [facility] [address] [facility] [id number] [place] [address] Jun, Factor V Leiden D68.51 [place] [address] [address] May, Factor V Leiden D68.51 ; Hyp erlipidemia, group D E78.3 ; Essential hypertension I10 ; Other chronic pain G89.29 and Anticoagulant long-term use Z79.01 [place] [address] [facility] [id number] [address] May, Anticoagulant long-term use Z79.01 [place] [address] [facility] [id number] [address] [place] [address] May, Anticoagulant long-term use Z79.01 [facility] [address] [facility] [id number] [address] [place] [address] May, [facility] [address] [facility] [id number] [address] [place] [address] Apr, [facility] [address] [place] [id number] [address] [place] [address] Mar, [facility] [address] [facility] [id number] [address] [place] [address] Mar, [facility] [address] [place] [id number] [address] [place] [address] Feb, Anticoagulant long-term use Z79.01 [facility] [address] [facility] [id number] [address] [place] [address] 16 Feb, 2015 Chronic prescription opiate use Z79.899 ; Other chronic pain G89.29 ; Hyperlipidemia, group D E78.3 ; Factor V Leiden D68.51 and Anticoagulant long- term use Z79.01 [facility] [address] [facility] [id number] [address] [place] [address] Feb, [facility] [address] [facility] [id number] [address] [place] [address] Jan, [facility] [address] [facility] [id number] [address] [place] [address] Dec, Hyperlipidemia, unspecified E78.5 [facility] [address] [facility] [id number] [address] [place] [address] Dec, Cellulitis of left lower ext remity L03.116 ; Venous stasis ulcers, left I83.029 and Factor V Leiden D68.51 [place] [id number] [facility] [id number] [address] [place] [address] Dec, Hyperlipidemia 272.4 and Fac tor V Leiden 289.81 [place] [address] [facility] [id number] [address] [place] [address] Dec, [facility] [address] [facility] [id number] [address] [place] [address] Nov, 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 [place] [address] [facility] [id number] [address] [place] [address] Nov, [facility] [address] [facility] [id number] [address] [place] [address] Nov, [facility] [address] [facility] [id number] [address] [place] [address] Nov, [facility] [address] [facility] [id number] [address] [place] [address] Oct, [facility] [address] [facility] [id number] [address] [place] [address] Oct, Hyperlipidemia 272.4 ; Chron ic pain disorder 338.4 ; Venous stasis ulcer of left lower extremity 454.0 and 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 [facility] [address] [facility] [id number] [address] [place] [address] Sep, [facility] [address] [id number] [address] [place] [address] Sep, [facility] [address] [facility] [id number] [address] [place] [address] Sep, Hyperlipidemia 272.4 and Fac tor V Leiden 289.81 [facility] [address] [facility] [id number] [address] [place] [address] Aug, [facility] [address] [facility] [id number] [address] [place] [address] Aug, 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 [facility] [address] [facility] [id number] [address] [place] [address] July, [facility] [address] [facility] [id number] [address] [place] [address] July, Essential hypertension, fito gn 401.1 ; 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 ; Chronic pain disorder 338.4 ; Hyperlipidemia 272.4 and Venous stasis ulcer of left lower extremity 454.0 [facility] [address] [facility] [id number] [address] [place] [address] Jun, [facility] [address] [facility] [id number] [address] [place] [address] Jun, [facility] [address] [facility] [id number] [address] [place] [phone] May, [facility] [address] [facility] [id number] [address] [place] [address] May, [facility] [address] [id number] [address] [place] [address], [place] [address] 20 Apr, 2014 [facility] [address] [id number] [address] [place] [address], [place] [address] 20 Apr, 2014 [facility] [address] [id number] [address] [place] [address], [place] [address] 18 Apr, 2014 [facility] [address] [id number] [address] [place] [address], [place] [address] 18 Apr, 2014 [facility] [address] [id number] [address] [place] [address], [place] [address] 13 Apr, 2014 [facility] [address] [id number] [address] [place] [address], [place] [address] 13 Apr, 2014 [facility] [address] [id number] [address] [place] [address], [place] [address] 15 Mar, 2014 [facility] [address] [id number] [address] [place] [address], [place] [address] 15 Mar, 2014 [facility] [address] [id number] [address] [place] [address], [place] [address] Mar, [facility] [address] [id number] [address] [place] [address], [place] [address] Mar, [facility] [address] [id number] [address] [place] [address], [place] [address] 17 Feb, 2014 [facility] [address] [id number] [address] [place] [address], [place] [address] 17 Feb, 2014 [facility] [address] [id number] [address] [place] [address], [place] [address] 16 Feb, 2014 [facility] [address] [id number] [address] [place] [address], [place] [address] 16 Feb, 2014 [facility] [address] [id number] [address] [place] [address], [place] [address] 24 Jan, 2014 [facility] [address] [id number] [address] [place] [address], [place] [address] Jan, [facility] [address] [id number] [address] [place] [address], [place] [address] Jan, [facility] [address] [id number] [address] [place] [address], [place] [address] Jan, [facility] [address] [id number] [address] [place] [address], [place] [address] Jan, [facility] [address] [id number] [address] [place] [address], [place] [address] Jan, [facility] [address] [id number] [address] [place] [address], [place] [address] Dec, [facility] [address] [id number] [address] [place] [address], [place] [address] Dec, [facility] [address] [id number] [address] [place] [address], [place] [address] Oct, [facility] [address] [id number] [address] [place] [address], [place] [address] Oct, [facility] [address] [id number] [address] [place] [address], [place] [address] Sep, [facility] [address] [id number] [address] [place] [address], [place] [address] Sep, [facility] [address] [id number] [address] [place] [address], [place] [address] Sep, [facility] [address] [id number] [address] [place] [address], [place] [address] Sep, [facility] [address] [id number] [address] [place] [address], [place] [address] Aug, [facility] [address] [id number] [address] [place] [address], [place] [address] Aug, [facility] [address] [id number] [address] [place] [address], [place] [address] July, [facility] [address] [id number] [address] [place] [address], [place] [address] July, [facility] [address] [id number] [address] [place] [address], [place] [address] Jun, [facility] [address] [id number] [address] [place] [address], [place] [address] Jun, [facility] [address] [id number] [address] [place] [address], [place] [address] May, [facility] [address] [id number] [address] [place] [address], [place] [address] May, [facility] [address] [id number] [address] [place] [address], [place] [address] Apr, [facility] [address] [id number] [address] [place] [address], [place] [address] Apr, [facility] [address] [id number] [address] [place] [address], [place] [address] Mar, [facility] [address] [id number] [address] [place] [address], [place] [address] Mar, [facility] [address] [id number] [address] [place] [address], [place] [address] Jan, [facility] [address] [id number] [address] [place] [address], [place] [address] Jan, [facility] [address] [id number] [address] [place] [address], [place] [address] Jan, [facility] [address] [id number] [address] [place] [address], [place] [address] Jan, [facility] [address] [id number] [address] [place] [address], [place] [address] Jan, [facility] [address] [id number] [address] [place] [address], [place] [address] Dec, [facility] [address] [id number] [address] [place] [address], [place] [address] Dec, [facility] [address] [id number] [address] [place] [address], [place] [address] Dec, [facility] [address] [id number] [address] [place] [address], [place] [address] Nov, [facility] [address] [id number] [address] [place] [address], [place] [address] Nov, [facility] [address] [id number] [address] [place] [address], [place] [address] Sep, [facility] [address] [address] [id number] [address] [place] [address], [place] [address] Sep, [facility] [address] [id number] [address] [place] [address], [place] [address] Aug, [facility] [address] [id number] [address] [place] [address], [place] [address] Aug, [facility] [address] [id number] [place] [id number] July, [facility] [address] [id number] [place] [id number] Jun, [facility] [address] [id number] [place] [id number] Apr, [facility] [address] [id number] [place] [id number] Mar, [facility] [address] [id number] [address] [place] [address], [place] [id number] Mar, [facility] [address] [id number] [place] [id number] Mar, [facility] [address] [id number] [address] [place] [address], [place] [address] Mar, [facility] [address] [id number] [place] [id number] Feb, [facility] [address] [id number] [address] [place] [address], [place] [address] Feb, [facility] [address] [id number] [place] [id number] Feb, [facility] [address] [id number] [address] [place] [id number] Feb, [facility] [address] [id number] [place] [id number] Oct, [facility] [address] [id number] [place] [id number] Oct, [facility] [address] [id number] [place] [id number] July, [facility] [address] [id number] [place] [id number] July, [facility] [address] [id number] [place] [id number] Jun, [facility] [address] [id number] [place] [id number] Jun, [facility] [address] [id number] [place] [id number] Jun, [facility] [address] [id number] [place] [id number] Mar, [facility] [address] [id number] [place] [id number] Mar, [facility] [address] [facility] [id number] [address] [place] [id number] Feb, [facility] [address] [facility] [id number] [address] [place] [id number] Feb, [facility] [address] [facility] [id number] [address] [place] [id number] Jan, [facility] [address] [facility] [id number] [address] [place] [id number] Jan, [facility] [address] [facility] [id number] [address] [place] [id number] Jan, [facility] [address] [facility] [id number] [address] [place] [id number] Jan, [facility] [address] [facility] [id number] [address] [address] 11 Jan, 2011 [facility] [address] [facility] [id number] [address] [place] [id number] 14 Aug, 2010 [facility] [address] [facility] [id number] [address] [place] [id number] 17 Apr, 2010 IMMUNIZATIONS No Known Immunizations SOCIAL HISTORY Never Assessed REASON FOR VISIT Gout concerns PLAN OF CARE VITAL SIGNS MEDICATIONS Medication Instructions Dosage Frequency Start Date End Date Duration S sahil Allopurinol 100 mg Orally Once a day 1 tablet 24h Feb, 30 day(s) Active RESULTS [...]
--- OUTSIDE RECORDS SUMMARY | 2019-11-08 13:07 | XMS REPORT ---
Author Author Zana ORTIZ Organization [facility] Address [address] [place] [address] Care Team Providers Care Paleologist Name Role Phone DIANA AVANI Unavailable PROBLEMS Type Condition ICD9-CM Code TTT30-QE Code Onset Dates Condition S tatus SNOMED Code Problem Factor V Leiden D68.51 Active 3070 31997 Problem Post-phlebitic syndrome I87.009 Active 50109511 Problem Anticoagulant long-term use Z79.01 Ac tive 867345215 Problem Essential hypertension I10 Active 74962235 Problem Other chronic pain G89.29 Active 8 0191294 Problem Venous stasis ulcers, left I83.029 Act ozzy 108804495 Problem 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 15373773 Problem Congenital single kidney Q60.0 Activ e 70796278 Problem Venous anomaly Q27.9 Active 88961 4003 Problem Pure hypercholesterolemia E78.00 Acti ve 103623888 Problem Chronic prescription opiate use Z79.899 Active [id number] ALLERGIES No Information ENCOUNTERS Encounter Location Date Diagnosis [facility] [address] [facility] [id number] [address] [place] [address] Feb, [facility] [address] [facility] [id number] [address] [place] [address] Feb, Other chronic pain G89.29 [facility] [address] [facility] [id number] [address] [place] [address] Jan, Other chronic pain G89.29 [facility] [address] [facility] [id number] [address] [place] [address] Dec, Other chronic pain G89.29 [facility] [address] [facility] [id number] [address] [place] [address] Dec, Anticoagulant long-term use Z79.01 [facility] [address] [facility] [id number] [address] [place] [address] Dec, Chronic prescription opiate use Z79.899 ; Factor V Leiden D68.51 ; Other chronic pain G89.29 and Anticoagulant long-term use Z79.01 [facility] [address] [facility] [id number] [address] [place] [address] Nov, Other chronic pain G89.29 [facility] [address] [facility] [id number] [address] [place] [address] Oct, Other chronic pain G89.29 [place] [address] [facility] [id number] [address] [place] [address] Sep, Other chronic pain G89.29 [place] [address] [place] [id number] [address] [place] [address] Aug, Other chronic pain G89.29 [place] [address] [facility] [id number] [address] [place] [address] Aug, Venous stasis ulcers, left I 83.029 [place] [address] [place] [id number] [address] [place] [address] July, Other chronic pain G89.29 [place] [address] [place] [id number] [address] [place] [address] July, Venous stasis ulcers, left I 83.029 and Snoring R06.83 [place] [address] [facility] [id number] [address] [place] [address] Jun, Idiopathic chronic gout of m ultiple sites without tophus M1A.09X0 [place] [address] [place] [id number] [address] [place] [address] Jun, Acute renal insufficiency N2 8.9 [place] [address] [place] [id number] [address] [place] [address] Jun, Other chronic pain G89.29 [place] [address] [place] [id number] [address] [place] [id number] 18 Jun, 2017 Acute renal insufficiency N2 8.[address] [place] [address] [facility] [address] [id number] [id number] 16 Jun, 2017 Idiopathic chronic gout of multiple site s without tophus M1A.09X0 ; Essential hypertension I10 and Anticoagulant long-term use Z79.01 [place] [address] [place] [id number] [address] [place] [address] Jun, Anticoagulant long-term use Z79.01 and Essential hypertension I10 [place] [id number] [place] [address] May, Idiopathic chronic gout of m ultiple sites without tophus M1A.09X0 [place] [address] [place] [id number] [address] [place] [address] May, [place] [address] [address] May, Essential hypertension I10 ; Pure hypercholesterolemia E78.00 ; Anticoagulant long-term use Z79.01 and Idiopathic chronic gout of multiple sites without tophus M1A.09X0 [place] [id number] [place] [address] May, Other chronic pain G89.29 [place] [address] [place] [id number] [address] [place] [address] May, Anticoagulant long-term use Z79.01 [place] [address] [place] [id number] [address] [place] [address] May, Chronic prescription opiate use Z79.899 ; Other chronic pain G89.29 ; Essential hypertension I10 ; Factor V Leiden D68.51 ; Anticoagulant long-term use Z79.01 ; Pure hypercholesterolemia E78.00 ; Venous stasis ulcers, left I83.029 ; Idiopathic chronic gout of multiple sites without tophus M1A.09X0 and Cellulitis of left lower extremity L03.116 [place] [address] [id number] [address] [place] [address] Apr, Other chronic pain G89.29 [facility] [address] [id number] [address] [place] [address] Mar, Other chronic pain G89.29 [facility] [address] [facility] [id number] [address] [place] [address] Mar, Factor V Leiden D68.51 ; Pur e hypercholesterolemia E78.00 and Other chronic pain G89.29 [facility] [address] [id number] [address] [place] [address] Feb, Other chronic pain G89.29 [facility] [address] [facility] [id number] [address] [place] [address] Jan, Idiopathic chronic gout of m ultiple sites without tophus M1A.09X0 [facility] [address] [facility] [id number] [address] [place] [address] Jan, Other chronic pain G89.29 [facility] [address] [facility] [id number] [address] [place] [address] Dec, Anticoagulant long-term use Z79.01 ; Factor V Leiden D68.51 and Other chronic pain G89.29 [facility] [address] [facility] [id number] [address] [place] [address] Dec, Other chronic pain G89.29 [facility] [address] [id number] [address] [place] [address] Nov, Other chronic pain G89.29 [facility] [address] [facility] [id number] [address] [place] [address] Oct, Other chronic pain G89.29 [facility] [address] [facility] [id number] [address] [place] [address] Sep, Anticoagulant long-term use Z79.01 [facility] [address] [facility] [id number] [address] [place] [address] Sep, Chronic prescription opiate use Z79.899 ; Anticoagulant long-term use Z79.01 ; Essential hypertension I10 ; Pure hypercholesterolemia E78.00 ; Factor V Leiden D68.51 ; Venous stasis ulcers, left I83.029 ; Other chronic pain G89.29 and Idiopathic chronic gout of multiple sites without tophus M1A.09X0 [facility] [address] [facility] [id number] [address] [place] [address] Aug, Anticoagulant long-term use Z79.01 [facility] [address] [id number] [address] [place] [address] Aug, Other chronic pain G89.29 [facility] [address] [facility] [id number] [address] [place] [address] Aug, Essential hypertension I10 a nd Factor V Leiden D68.[id number] [place] [id number] Aug, Acute right ankle pain M25.571 and Tendo nitis of ankle M77.50 [facility] [address] [facility] [id number] [address] [place] [address] Aug, [facility] [address] [facility] [id number] [address] [place] [address] July, Other chronic pain G89.29 [facility] [address] [facility] [id number] [address] [place] [address] Jun, Other chronic pain G89.29 [facility] [address] [id number] [address] [place] [address] Jun, Other chronic pain G89.29 [facility] [address] [facility] [id number] [address] [place] [address] Jun, Anticoagulant long-term use Z79.01 [facility] [address] [facility] [id number] [address] [place] [address] May, Other chronic pain G89.29 [facility] [address] [address] May, Anticoagulant long-term use Z79.01 [facility] [address] [address] May, Other chronic pain G89.29 [facility] [address] [address] Apr, Anticoagulant long-term use Z79.01 [facility] [address] [address] Apr, Other chronic pain G89.29 [facility] [address] [address] Apr, Anticoagulant long-term use Z79.01 and Pure hypercholesterolemia E78.00 [place] [address] [address] Mar, [facility] [address] [address] Mar, Anticoagulant long-term use Z79.01 [place] [address] [address] Mar, Other chronic pain G89.29 [facility] [address] [address] Feb, Essential hypertension I10 ; Chronic prescription opiate use Z79.899 ; Other chronic pain G89.29 ; Screening Z13.9 ; Factor V Leiden D68.51 ; Anticoagulant long-term use Z79.01 ; Venous stasis dermatitis of left lower extremity I83.12 and Pure hypercholesterolemia E78.00 [place] [address] [address] 14 Jan, 2016 Anticoagulant long-term use Z79.01 [facility] [address] [place] [id number] [address] [place] [address] 10 Jan, 2016 Anticoagulant long-term use Z79.01 [facility] [address] [place] [id number] [place] [address] Jan, [facility] [address] [facility] [id number] [address] [place] [address] Jan, [facility] [address] [facility] [id number] [address] [place] [address] Dec, [facility] [address] [facility] [id number] [address] [place] [address] Nov, [facility] [address] [facility] [id number] [address] [place] [address] Oct, Anticoagulant long-term use Z79.01 [facility] [address] [facility] [id number] [place] [address] Oct, [facility] [address] [place] [id number] [place] [address] Oct, Anticoagulant long-term use Z79.01 [facility] [address] [facility] [id number] [address] [place] [address] Sep, [facility] [address] [facility] [id number] [address] [place] [address] Aug, [facility] [address] [place] [id number] [place] [address] Aug, Chronic prescription opiate use Z79.899 ; Other chronic pain G89.29 ; Essential hypertension I10 and Pure hypercholesterolemia E78.0 [facility] [address] [facility] [id number] [address] [place] [address] July, Hyperlipidemia, group D E78. 3 and Anticoagulant long-term use Z79.01 [facility] [address] [place] [id number] [address] [place] [address] July, Hyperlipidemia, group D E78. 3 ; Essential hypertension I10 and Factor V Leiden D68.51 [facility] [address] [place] [id number] [address] [place] [address] July, Essential hypertension I10 [place] [address] [facility] [id number] [address] [place] [address] Jun, Hyperlipidemia, group D E78. 3 [facility] [address] [facility] [id number] [address] [place] [address] Jun, Factor V Leiden D68.51 [facility] [address] [facility] [id number] [address] [place] [address] May, Factor V Leiden D68.51 ; Hyp erlipidemia, group D E78.3 ; Essential hypertension I10 ; Other chronic pain G89.29 and Anticoagulant long-term use Z79.01 [place] [address] [facility] [id number] [address] [place] [address] May, Anticoagulant long-term use Z79.01 [place] [address] [place] [id number] [address] [place] [address] May, Anticoagulant long-term use Z79.01 [place] [address] [facility] [id number] [address] [place] [address] May, [facility] [address] [facility] [id number] [address] [place] [address] Apr, [facility] [address] [place] [id number] [address] [place] [address] Mar, [place] [address] [facility] [id number] [address] [place] [address] Mar, [facility] [address] [facility] [id number] [address] [place] [address] Feb, Anticoagulant long-term use Z79.01 [facility] [address] [facility] [id number] [address] [place] [address] Feb, Chronic prescription opiate use Z79.899 ; Other chronic pain G89.29 ; Hyperlipidemia, group D E78.3 ; Factor V Leiden D68.51 and Anticoagulant long- term use Z79.01 [facility] [address] [facility] [id number] [address] [place] [address] Feb, [facility] [address] [facility] [id number] [address] [place] [phone] Jan, [facility] [address] [facility] [id number] [address] [place] [address] Dec, Hyperlipidemia, unspecified E78.5 [facility] [address] [facility] [id number] [address] [place] [address] Dec, Cellulitis of left lower ext remity L03.116 ; Venous stasis ulcers, left I83.029 and Factor V Leiden D68.51 [facility] [address] [facility] [id number] [address] [place] [address] Dec, Hyperlipidemia 272.4 and Fac tor V Leiden 289.81 [facility] [address] [facility] [id number] [address] [place] [address] Dec, [facility] [address] [facility] [id number] [address] [place] [address] Nov, 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 [facility] [address] [facility] [id number] [address] [place] [phone] Nov, [facility] [address] [place] [id number] [address] [place] [address] Nov, [facility] [address] [facility] [id number] [address] [place] [address] Nov, [facility] [address] [facility] [id number] [address] [place] [address] Oct, [facility] [address] [facility] [id number] [address] [place] [address] Oct, Hyperlipidemia 272.4 ; Chron ic pain disorder 338.4 ; Venous stasis ulcer of left lower extremity 454.0 and 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 [facility] [address] [facility] [id number] [address] [place] [address] Sep, [facility] [address] [facility] [id number] [address] [place] [address] 13 Sep, 2014 [facility] [address] [facility] [id number] [address] [place] [address] Sep, Hyperlipidemia 272.4 and Fac tor V Leiden 289.81 [facility] [address] [facility] [id number] [address] [place] [address] Aug, [facility] [address] [facility] [id number] [address] [place] [address] Aug, 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 [facility] [address] [facility] [id number] [address] [place] [address] July, [facility] [address] [facility] [id number] [place] [address] July, Essential hypertension, fito gn 401.1 ; 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 ; Chronic pain disorder 338.4 ; Hyperlipidemia 272.4 and Venous stasis ulcer of left lower extremity 454.0 [facility] [address] [facility] [id number] [address] [place] [address] Jun, [facility] [address] [facility] [id number] [address] [place] [address] Jun, [facility] [address] [facility] [id number] [address] [place] [address] May, [facility] [address] [facility] [id number] [address] [place] [phone] May, [facility] [address] [facility] [id number] [address] [place] [phone] Apr, [facility] [address] [facility] [id number] [address] [place] [phone] Apr, [facility] [address] [facility] [id number] [address] [place] [address] Apr, [facility] [address] [facility] [id number] [address] [place] [phone] Apr, [facility] [address] [id number] [address] [place] [address], [place] [address] Apr, [facility] [address] [id number] [address] [place] [address], [place] [address] Apr, [facility] [address] [id number] [address] [place] [address], [place] [address] Mar, [facility] [address] [id number] [address] [place] [address], [place] [address] Mar, [facility] [address] [id number] [address] [place] [address], [place] [address] Mar, [facility] [address] [id number] [address] [place] [address], [place] [address] Mar, [facility] [address] [id number] [address] [place] [address], [place] [address] 17 Feb, 2014 [facility] [address] [id number] [address] [place] [address], [place] [address] 17 Feb, 2014 [facility] [address] [id number] [address] [place] [address], [place] [address] Feb, [facility] [address] [id number] [address] [place] [address], [place] [address] Feb, [facility] [address] [id number] [address] [place] [address], [place] [address] 24 Jan, 2014 [facility] [address] [id number] [address] [place] [address], [place] [address] Jan, [facility] [address] [id number] [address] [place] [address], [place] [address] 19 Jan, 2014 [facility] [address] [id number] [address] [place] [address], [place] [address] 14 Jan, 2014 [facility] [address] [id number] [address] [place] [address] 14 Jan, 2014 [facility] [address] [id number] [address] [place] [address], [place] [address] Jan, [facility] [address] [id number] [address] [place] [address], [place] [address] Dec, [facility] [address] [id number] [address] [place] [address], [place] [address] Dec, [facility] [address] [id number] [address] [place] [address], [place] [address] Oct, [facility] [address] [id number] [address] [place] [address], [place] [address] Oct, [facility] [address] [id number] [address] [place] [address], [place] [address] Sep, [facility] [address] [id number] [address] [place] [address], [place] [address] Sep, [facility] [address] [id number] [address] [place] [address], [place] [address] Sep, [facility] [address] [id number] [address] [place] [address], [place] [address] Sep, [facility] [address] [id number] [address] [place] [address], [place] [address] Aug, [facility] [address] [id number] [address] [place] [address], [place] [address] Aug, [facility] [address] [id number] [address] [place] [address], [place] [address] July, [facility] [address] [id number] [address] [place] [address], [place] [address] July, [facility] [address] [id number] [address] [place] [address], [place] [address] Jun, [facility] [address] [id number] [address] [place] [address], [place] [address] Jun, [facility] [address] [id number] [address] [place] [address], [place] [address] May, [facility] [address] [id number] [address] [place] [address], [place] [address] May, [facility] [address] [id number] [address] [place] [address], [place] [address] Apr, [facility] [address] [id number] [address] [place] [address], [place] [address] Apr, [facility] [address] [id number] [address] [place] [address], [place] [address] Mar, [facility] [address] [id number] [address] [place] [address], [place] [address] Mar, [facility] [address] [id number] [address] [place] [address], [place] [address] Jan, [facility] [address] [id number] [address] [place] [address], [place] [address] Jan, [facility] [address] [id number] [address] [place] [address], [place] [address] Jan, [facility] [address] [id number] [address] [place] [address], [place] [address] Jan, [facility] [address] [id number] [address] [place] [address], [place] [address] Jan, [facility] [address] [id number] [address] [place] [address], [place] [address] Dec, [facility] [address] [id number] [address] [place] [address], [place] [address] Dec, [facility] [address] [id number] [address] [place] [address], [place] [address] Dec, [facility] [address] [id number] [address] [place] [address], [place] [address] Nov, [facility] [address] [id number] [address] [place] [address], [place] [address] 26 Nov, 2012 [facility] [address] [id number] [address] [place] [address], [place] [address] Sep, [facility] [address] [facility] [id number] [address] [place] [address] Sep, [facility] [address] [facility] [id number] [address] [place] [address] Aug, [facility] [address] [facility] [id number] [address] [place] [id number] Aug, [facility] [place] [address] [id number] [place] [id number] July, [facility] [place] [address] [id number] [place] [id number] Jun, [facility] [place] [address] [id number] [place] [id number] Apr, [facility] [place] [address] [id number] [place] [id number] Mar, [facility] [address] [facility] [id number] [address] [place] [address], [place] [address] Mar, [facility] [place] [address] [id number] [place] [id number] Mar, [facility] [address] [facility] [id number] [address] [place] [address] Mar, [facility] [place] [address] [id number] [place] [id number] Feb, [facility] [address] [facility] [id number] [address] [place] [id number] Feb, [facility] [address] [id number] [place] [id number] Feb, [facility] [address] [id number] [address] [place] [id number] Feb, [facility] [address] [id number] [place] [id number] Oct, [facility] [address] [id number] [place] [id number] Oct, [facility] [address] [id number] [place] [id number] July, [facility] [address] [id number] [place] [id number] July, [facility] [address] [id number] [place] [id number] Jun, [facility] [address] [id number] [place] [id number] Jun, [facility] [address] [id number] [place] [id number] Jun, [facility] [address] [id number] [place] [id number] Mar, [facility] [address] [id number] [place] [id number] Mar, [facility] [address] [facility] [id number] [address] [place] [phone] Feb, [facility] [address] [facility] [id number] [address] [place] [phone] Feb, [facility] [address] [facility] [id number] [address] [place] [id number] Jan, [facility] [address] [facility] [id number] [address] [place] [phone] Jan, [facility] [address] [facility] [id number] [address] [place] [phone] Jan, [facility] [address] [facility] [id number] [address] [place] [phone] Jan, [facility] [address] [facility] [id number] [address] [place] [phone] Jan, [facility] [address] [facility] [id number] [address] [place] [id number] Aug, [facility] [address] [facility] [id number] [address] [place] [phone] Apr, IMMUNIZATIONS No Known Immunizations SOCIAL HISTORY Never Assessed REASON FOR VISIT Medication question PLAN OF CARE VITAL SIGNS MEDICATIONS Unknown [...]
--- OUTSIDE RECORDS SUMMARY | 2019-11-08 13:07 | XMS REPORT ---
Author Author Zana ORTIZ Organization [facility] Address [address] [place] [address] Care Team Providers Care Manager Desktop Name Role Phone DIANADAVIDAVANI Unavailable PROBLEMS Type Condition ICD9-CM Code [id number] Code Onset Dates Condition S tatus SNOMED Code Problem Factor V Leiden D68.51 Active 3070 83396 Problem Post-phlebitic syndrome I87.009 Active 70009366 Problem Anticoagulant long-term use Z79.01 Ac tive 651538159 Problem Essential hypertension I10 Active 57735301 Problem Other chronic pain G89.29 Active 8 0159955 Problem Venous stasis ulcers, left I83.029 Act ozzy 731542963 Problem 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 17059094 Problem Congenital single kidney Q60.0 Activ e 93490581 Problem Venous anomaly Q27.9 Active 66034 4003 Problem Pure hypercholesterolemia E78.00 Acti ve 074662172 Problem Chronic prescription opiate use Z79.899 Active 181364885 ALLERGIES No Information ENCOUNTERS Encounter Location Date Diagnosis [place] [id number] [place] [address] Jan, Other chronic pain G89.29 [place] [address] [facility] [id number] [address] [place] [address] Dec, Other chronic pain G89.29 [facility] [address] [facility] [id number] [address] [place] [address] Dec, Anticoagulant long-term use Z79.01 [place] [address] [facility] [id number] [address] [place] [address] Dec, Chronic prescription opiate use Z79.899 ; Factor V Leiden D68.51 ; Other chronic pain G89.29 and Anticoagulant long-term use Z79.01 [facility] [address] [facility] [id number] [address] [place] [address] 12 Nov, 2017 Other chronic pain G89.29 [facility] [address] [facility] [id number] [address] [place] [address] Oct, Other chronic pain G89.29 [facility] [address] [facility] [id number] [address] [place] [address] Sep, Other chronic pain G89.29 [facility] [address] [id number] [address] [place] [address] Aug, Other chronic pain G89.29 [facility] [address] [facility] [id number] [address] [place] [address] Aug, Venous stasis ulcers, left I 83.029 [place] [address] [facility] [id number] [address] [place] [address] July, Other chronic pain G89.29 [facility] [address] [facility] [id number] [address] [place] [address] July, Venous stasis ulcers, left I 83.029 and Snoring R06.83 [facility] [address] [facility] [id number] [address] [place] [address] Jun, Idiopathic chronic gout of m ultiple sites without tophus M1A.09X0 [facility] [address] [facility] [id number] [address] [place] [address] Jun, Acute renal insufficiency N2 8.9 [place] [address] [facility] [id number] [address] [place] [address] Jun, Other chronic pain G89.29 [facility] [address] [facility] [id number] [address] [place] [address] Jun, Acute renal insufficiency N2 8.9 [facility] [address] [id number] [id number] Jun, Idiopathic chronic gout of multiple site s without tophus M1A.09X0 ; Essential hypertension I10 and Anticoagulant long-term use Z79.01 [place] [address] [facility] [id number] [address] [place], [place] [phone] Jun, Anticoagulant long-term use Z79.01 and Essential hypertension I10 [place] [address] [facility] [id number] [address] [place] [address] May, Idiopathic chronic gout of m ultiple sites without tophus M1A.09X0 [place] [address] [place] [id number] [address] [place] [address] May, [place] [address] [place] [id number] [place] [address] May, Essential hypertension I10 ; Pure hypercholesterolemia E78.00 ; Anticoagulant long-term use Z79.01 and Idiopathic chronic gout of multiple sites without tophus M1A.09X0 [place] [address] [place] [id number] [address] [place] [address] May, Other chronic pain G89.29 [place] [address] [place] [id number] [address] [place] [address] May, Anticoagulant long-term use Z79.01 [place] [address] [place] [id number] [address] [place] [address] May, Chronic prescription opiate use Z79.899 ; Other chronic pain G89.29 ; Essential hypertension I10 ; Factor V Leiden D68.51 ; Anticoagulant long-term use Z79.01 ; Pure hypercholesterolemia E78.00 ; Venous stasis ulcers, left I83.029 ; Idiopathic chronic gout of multiple sites without tophus M1A.09X0 and Cellulitis of left lower extremity L03.116 [place] [address] [facility] [id number] [address] [place] [address] Apr, Other chronic pain G89.29 [place] [address] [place] [id number] [address] [place] [address] Mar, Other chronic pain G89.29 [place] [address] [facility] [id number] [address] [place] [address] Mar, Factor V Leiden D68.51 ; Pur e hypercholesterolemia E78.00 and Other chronic pain G89.29 [facility] [address] [facility] [id number] [address] [place] [address] Feb, Other chronic pain G89.29 [facility] [address] [facility] [id number] [address] [place] [address] Jan, Idiopathic chronic gout of m ultiple sites without tophus M1A.09X0 [place] [address] [facility] [id number] [address] [place] [address] Jan, Other chronic pain G89.29 [place] [address] [facility] [id number] [address] [place] [address] Dec, Anticoagulant long-term use Z79.01 ; Factor V Leiden D68.51 and Other chronic pain G89.29 [place] [address] [facility] [id number] [address] [place] [address] Dec, Other chronic pain G89.29 [place] [address] [facility] [id number] [address] [place] [address] Nov, Other chronic pain G89.29 [place] [address] [facility] [id number] [address] [place] [address] Oct, Other chronic pain G89.29 [place] [address] [facility] [id number] [address] [place] [address] Sep, Anticoagulant long-term use Z79.01 [place] [address] [facility] [id number] [address] [place] [address] Sep, Chronic prescription opiate use Z79.899 ; Anticoagulant long-term use Z79.01 ; Essential hypertension I10 ; Pure hypercholesterolemia E78.00 ; Factor V Leiden D68.51 ; Venous stasis ulcers, left I83.029 ; Other chronic pain G89.29 and Idiopathic chronic gout of multiple sites without tophus M1A.09X0 [facility] [address] [facility] [id number] [address] [place] [address] Aug, Anticoagulant long-term use Z79.01 [facility] [address] [facility] [id number] [address] [place] [address] Aug, Other chronic pain G89.29 [facility] [address] [facility] [id number] [address] [place] [address] Aug, Essential hypertension I10 a nd Factor V Leiden D68.[id number] [place] [id number] 15 Aug, 2016 Acute right ankle pain M25.571 and Tendo nitis of ankle M77.50 [facility] [address] [facility] [id number] [address] [place] [address] Aug, [facility] [address] [facility] [id number] [address] [place] [address] July, Other chronic pain G89.29 [facility] [address] [facility] [id number] [address] [place] [address] Jun, Other chronic pain G89.29 [facility] [address] [facility] [id number] [address] [place] [address] Jun, Other chronic pain G89.29 [facility] [address] [facility] [id number] [address] [place] [address] Jun, Anticoagulant long-term use Z79.01 [facility] [address] [facility] [id number] [address] [place] [address] May, Other chronic pain G89.29 [facility] [address] [facility] [id number] [address] [place] [address] May, Anticoagulant long-term use Z79.01 [facility] [address] [facility] [id number] [address] [place] [address] May, Other chronic pain G89.29 [facility] [address] [facility] [id number] [address] [place] [phone] 06 Apr, 2016 Anticoagulant long-term use Z79.01 [facility] [address] [facility] [id number] [address] [place] [address] Apr, Other chronic pain G89.29 [facility] [address] [facility] [id number] [address] [place] [address] Apr, Anticoagulant long-term use Z79.01 and Pure hypercholesterolemia E78.00 [place] [address] [facility] [id number] [address] [place] [address] Mar, [place] [address] [facility] [id number] [address] [place] [address] Mar, Anticoagulant long-term use Z79.01 [place] [address] [place] [id number] [address] [place] [address] Mar, Other chronic pain G89.29 [place] [id number] [place] [address] Feb, Essential hypertension I10 ; Chronic prescription opiate use Z79.899 ; Other chronic pain G89.29 ; Screening Z13.9 ; Factor V Leiden D68.51 ; Anticoagulant long-term use Z79.01 ; Venous stasis dermatitis of left lower extremity I83.12 and Pure hypercholesterolemia E78.00 [place] [address] [facility] [id number] [address] [place] [address] Jan, Anticoagulant long-term use Z79.01 [place] [address] [facility] [id number] [address] [place] [address] Jan, Anticoagulant long-term use Z79.01 [place] [address] [facility] [id number] [address] [place] [address] Jan, [place] [address] [facility] [id number] [address] [place] [address] Jan, [place] [address] [place] [id number] [address] [place] [phone] Dec, [facility] [address] [facility] [id number] [address] [place] [address] Nov, [facility] [address] [facility] [id number] [address] [place] [address] Oct, Anticoagulant long-term use Z79.01 [facility] [address] [facility] [id number] [address] [place] [address] Oct, [facility] [address] [facility] [id number] [place] [address] Oct, Anticoagulant long-term use Z79.01 [facility] [address] [facility] [id number] [address] [place] [phone] Sep, [facility] [address] [place] [id number] [address] [place] [address] Aug, [facility] [address] [address] Aug, Chronic prescription opiate use Z79.899 ; Other chronic pain G89.29 ; Essential hypertension I10 and Pure hypercholesterolemia E78.0 [place] [address] [address] July, Hyperlipidemia, group D E78. 3 and Anticoagulant long-term use Z79.01 [facility] [address] [place] [id number] [address] [place] [address] July, Hyperlipidemia, group D E78. 3 ; Essential hypertension I10 and Factor V Leiden D68.51 [facility] [address] [place] [id number] [address] [place] [address] July, Essential hypertension I10 [facility] [address] [place] [id number] [place] [address] Jun, Hyperlipidemia, group D E78. 3 [facility] [address] [place] [id number] [address] [place] [address] 25 Apr, 2016 Factor V Leiden D68.51 [facility] [address] [id number] [address] [place] [address] May, Factor V Leiden D68.51 ; Hyp erlipidemia, group D E78.3 ; Essential hypertension I10 ; Other chronic pain G89.29 and Anticoagulant long-term use Z79.01 [facility] [address] [facility] [id number] [address] [place] [address] 04 May, 2015 Anticoagulant long-term use Z79.01 [facility] [address] [id number] [address] [place] [address] 04 May, 2015 Anticoagulant long-term use Z79.01 [facility] [address] [facility] [id number] [address] [place] [address] May, [facility] [address] [facility] [id number] [address] [place] [address] Apr, [facility] [address] [facility] [id number] [address] [place] [address] Mar, [facility] [address] [facility] [id number] [address] [place] [phone] Mar, [facility] [address] [facility] [id number] [address] [place] [address] Feb, Anticoagulant long-term use Z79.01 [facility] [address] [facility] [id number] [address] [place] [address] Feb, Chronic prescription opiate use Z79.899 ; Other chronic pain G89.29 ; Hyperlipidemia, group D E78.3 ; Factor V Leiden D68.51 and Anticoagulant long- term use Z79.01 [facility] [address] [facility] [id number] [address] [place] [address] Feb, [facility] [address] [facility] [id number] [address] [place] [address] Jan, [facility] [address] [facility] [id number] [address] [place] [address] Dec, Hyperlipidemia, unspecified E78.5 [facility] [address] [facility] [id number] [address] [place] [address] Dec, Cellulitis of left lower ext remity L03.116 ; Venous stasis ulcers, left I83.029 and Factor V Leiden D68.51 [facility] [address] [facility] [id number] [address] [place] [address] Dec, Hyperlipidemia 272.4 and Fac tor V Leiden 289.81 [facility] [address] [id number] [address] [place] [address] Dec, [facility] [address] [facility] [id number] [address] [place] [address] Nov, 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 [facility] [address] [facility] [id number] [address] [place] [address] Nov, [facility] [address] [facility] [id number] [address] [place] [address] Nov, [facility] [address] [facility] [id number] [address] [place] [phone] Nov, [facility] [address] [facility] [id number] [address] [place] [address] Oct, [facility] [address] [facility] [id number] [address] [place] [address] Oct, Hyperlipidemia 272.4 ; Chron ic pain disorder 338.4 ; Venous stasis ulcer of left lower extremity 454.0 and 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 [facility] [address] [facility] [id number] [address] [place] [address] Sep, [facility] [address] [facility] [id number] [address] [place] [address] Sep, [facility] [address] [facility] [id number] [address] [place] [address] Sep, Hyperlipidemia 272.4 and Fac tor V Leiden 289.81 [facility] [address] [facility] [id number] [address] [place] [address] Aug, [facility] [address] [facility] [id number] [address] [place] [address] Aug, 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 [facility] [address] [facility] [id number] [address] [place] [address] July, [facility] [address] [facility] [id number] [address] [place] [address] July, Essential hypertension, fito gn 401.1 ; 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 ; Chronic pain disorder 338.4 ; Hyperlipidemia 272.4 and Venous stasis ulcer of left lower extremity 454.0 [facility] [address] [facility] [id number] [address] [place] [phone] Jun, [facility] [address] [facility] [id number] [address] [place] [phone] Jun, [facility] [address] [facility] [id number] [address] [place] [address] May, [facility] [address] [facility] [id number] [address] [place] [phone] May, [facility] [address] [facility] [id number] [address] [place] [phone] Apr, [facility] [address] [facility] [id number] [address] [place] [phone] Apr, [facility] [address] [facility] [id number] [address] [place] [phone] Apr, [facility] [address] [facility] [id number] [address] [place] [address] Apr, [facility] [address] [facility] [id number] [address] [place] [phone] Apr, [facility] [address] [facility] [id number] [address] [place] [phone] Apr, [facility] [address] [id number] [address] [place] [address], [place] [address] 15 Mar, 2014 [facility] [address] [id number] [address] [place] [address], [place] [address] 15 Mar, 2014 [facility] [address] [id number] [address] [place] [address], [place] [address] Mar, [facility] [address] [id number] [address] [place] [address], [place] [address] Mar, [facility] [address] [id number] [address] [place] [address], [place] [address] 17 Feb, 2014 [facility] [address] [id number] [address] [place] [address], [place] [address] 17 Feb, 2014 [facility] [address] [id number] [address] [place] [address], [place] [address] 16 Feb, 2014 [facility] [address] [id number] [address] [place] [address], [place] [address] 16 Feb, 2014 [facility] [address] [id number] [address] [place] [address], [place] [address] 24 Jan, 2014 [facility] [address] [id number] [address] [place] [address], [place] [address] Jan, [facility] [address] [id number] [address] [place] [address], [place] [address] Jan, [facility] [address] [id number] [address] [place] [address], [place] [address] Jan, [facility] [address] [id number] [address] [place] [address], [place] [address] 14 Jan, 2014 [facility] [address] [id number] [address] [place] [address], [place] [address] Jan, [facility] [address] [id number] [address] [place] [address], [place] [address] Dec, [facility] [address] [id number] [address] [place] [address], [place] [address] Dec, [facility] [address] [id number] [address] [place] [address], [place] [address] Oct, [facility] [address] [id number] [address] [place] [address], [place] [address] Oct, [facility] [address] [id number] [address] [place] [address], [place] [address] Sep, [facility] [address] [id number] [address] [place] [address], [place] [address] Sep, [facility] [address] [id number] [address] [place] [address], [place] [address] Sep, [facility] [address] [id number] [address] [place] [address], [place] [address] Sep, [facility] [address] [id number] [address] [place] [address], [place] [address] Aug, [facility] [address] [id number] [address] [place] [address], [place] [address] Aug, [facility] [address] [id number] [address] [place] [address], [place] [address] July, [facility] [address] [id number] [address] [place] [address], [place] [address] July, [facility] [address] [id number] [address] [place] [address], [place] [address] Jun, [facility] [address] [id number] [address] [place] [address], [place] [address] Jun, [facility] [address] [id number] [address] [place] [address], [place] [address] May, [facility] [address] [id number] [address] [place] [address], [place] [address] May, [facility] [address] [id number] [address] [place] [address], [place] [address] Apr, [facility] [address] [id number] [address] [place] [address], [place] [address] Apr, [facility] [address] [id number] [address] [place] [address], [place] [address] Mar, [facility] [address] [id number] [address] [place] [address], [place] [address] Mar, [facility] [address] [id number] [address] [place] [address], [place] [address] Jan, [facility] [address] [id number] [address] [place] [address], [place] [address] Jan, [facility] [address] [id number] [address] [place] [address], [place] [address] Jan, [facility] [address] [id number] [address] [place] [address], [place] [address] Jan, [facility] [address] [id number] [address] [place] [address], [place] [address] Jan, [facility] [address] [id number] [address] [place] [address], [place] [address] Dec, [facility] [address] [id number] [address] [place] [address], [place] [address] Dec, [facility] [address] [id number] [address] [place] [address], [place] [address] Dec, [facility] [address] [id number] [address] [place] [address], [place] [address] Nov, [facility] [address] [id number] [address] [place] [address], [place] [address] Nov, [facility] [address] [id number] [address] [place] [address], [place] [address] Sep, [facility] [address] [id number] [address] [place] [address], [place] [address] Sep, [facility] [address] [id number] [address] [place] [address], [place] [address] Aug, [facility] [address] [id number] [address], [place] [address] Aug, [facility] [address] [id number] [place] [id number] July, [facility] [address] [id number] [place] [id number] Jun, [facility] [address] [id number] [place] [id number] Apr, [facility] [address] [id number] [place] [id number] Mar, [facility] [address] [facility] [id number] [address] [place] [address] Mar, [facility] [address] [id number] [place] [id number] Mar, [facility] [facility] [address] [facility] [id number] [address] [place] [phone] Mar, [facility] [address] [id number] [place] [id number] Feb, [facility] [address] [facility] [id number] [address] [place] [phone] Feb, [facility] [address] [id number] [place] [id number] Feb, [facility] [address] [facility] [id number] [address] [place] [phone] Feb, [facility] [address] [id number] [place] [id number] Oct, [facility] [address] [id number] [place] [id number] Oct, [facility] [address] [id number] [place] [id number] July, [facility] [address] [id number] [place] [id number] July, [facility] [address] [id number] [place] [id number] Jun, [facility] [address] [facility] [id number] [place] [id number] Jun, [facility] [address] [facility] [id number] [place] [id number] Jun, [facility] [address] [facility] [id number] [place] [id number] Mar, [facility] [address] [facility] [id number] [place] [id number] Mar, [facility] [address] [facility] [id number] [address] [place] [phone] Feb, [facility] [address] [facility] [id number] [address] [place] [phone] Feb, [facility] [address] [place] [id number] [address] [place] [phone] Jan, [facility] [address] [place] [id number] [address] [place] [phone] Jan, [facility] [address] [place] [id number] [address] [place] [phone] Jan, [facility] [address] [place] [id number] [address] [place] [phone] Jan, [facility] [address] [place] [id number] [address] [place] [phone] Jan, [facility] [address] [place] [id number] [address] [place] [phone] Aug, [facility] [address] [place] [id number] [address] [place] [phone] Apr, IMMUNIZATIONS No Known Immunizations SOCIAL HISTORY Never Assessed REASON FOR VISIT Controlled Med Refill 01/31 PLAN OF CARE VITAL SIGNS MEDICATIONS Medication Instructions Dosage Frequency Start Date End Date Duration S sahil Hydrocodone-Acetaminophen 10-325 MG Orally 4 times a day as needed for pain 1 tablet Jan, 28 days Active RESULTS No Results PROCEDURES [...]
--- OUTSIDE RECORDS SUMMARY | 2019-11-08 13:07 | XMS REPORT ---
Author Author Zana ORTIZ Organization [facility] Address [address] [place] [address] Care Team Providers Care Rubble Placer Name Role Phone DIANA AVANI Unavailable PROBLEMS Type Condition ICD9-CM Code TDM28-IN Code Onset Dates Condition S tatus SNOMED Code Problem Factor V Leiden D68.51 Active 3070 29158 Problem Post-phlebitic syndrome I87.009 Active 57091287 Problem Anticoagulant long-term use Z79.01 Ac tive 451186476 Problem Essential hypertension I10 Active 11541437 Problem Other chronic pain G89.29 Active 8 7219783 Problem Venous stasis ulcers, left I83.029 Act ozzy 411066394 Problem 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 67045402 Problem Congenital single kidney Q60.0 Activ e 84840644 Problem Venous anomaly Q27.9 Active 03688 4003 Problem Pure hypercholesterolemia E78.00 Acti ve 396043365 Problem Chronic prescription opiate use Z79.899 Active 209060597 ALLERGIES No Information ENCOUNTERS Encounter Location Date Diagnosis [facility] [address] [facility] [id number] [address] [place] [phone] Feb, [facility] [address] [facility] [id number] [address] [place] [phone] Feb, [facility] [address] [facility] [id number] [address] [place] [address] Feb, Other chronic pain G89.29 [facility] [address] [facility] [id number] [address] [place] [address] Jan, Other chronic pain G89.29 [facility] [address] [facility] [id number] [address] [place] [phone] Dec, Other chronic pain G89.29 [facility] [address] [id number] [address] [place] [id number] 05 Dec, 2017 Anticoagulant long-term use Z79.01 [facility] [address] [facility] [id number] [address] [place] [phone] 03 Dec, 2017 Chronic prescription opiate use Z79.899 ; Factor V Leiden D68.51 ; Other chronic pain G89.29 and Anticoagulant long-term use Z79.01 [facility] [address] [facility] [id number] [address] [place] [phone] 12 Nov, 2017 Other chronic pain G89.29 [facility] [address] [facility] [id number] [address] [place] [phone] Oct, Other chronic pain G89.29 [facility] [address] [facility] [id number] [address] [place] [address] Sep, Other chronic pain G89.29 [facility] [address] [facility] [id number] [address] [place] [address] Aug, Other chronic pain G89.29 [facility] [address] [facility] [id number] [address] [place] [phone] Aug, Venous stasis ulcers, left I 83.029 [place] [address] [facility] [id number] [address] [place] [address] July, Other chronic pain G89.29 [facility] [address] [id number] [address] [place] [address] July, Venous stasis ulcers, left I 83.029 and Snoring R06.83 [facility] [address] [facility] [id number] [address] [place] [address] Jun, Idiopathic chronic gout of m ultiple sites without tophus M1A.09X0 [facility] [address] [facility] [id number] [address] [place] [phone] Jun, Acute renal insufficiency N2 8.9 [place] [address] [facility] [id number] [address] [place] [address] Jun, Other chronic pain G89.29 [place] [address] [facility] [id number] [address] [place] [address] Jun, Acute renal insufficiency N2 8.[address] [place] [id number] [id number] [id number] 16 Jun, 2017 Idiopathic chronic gout of multiple site s without tophus M1A.09X0 ; Essential hypertension I10 and Anticoagulant long-term use Z79.01 [place] [address] [facility] [id number] [address] [place] [address] Jun, Anticoagulant long-term use Z79.01 and Essential hypertension I10 [place] [address] [facility] [id number] [address] [place] [address] May, Idiopathic chronic gout of m ultiple sites without tophus M1A.09X0 [place] [address] [facility] [id number] [address] [place] [address] May, [place] [address] [facility] [id number] [address] [place] [address] May, Essential hypertension I10 ; Pure hypercholesterolemia E78.00 ; Anticoagulant long-term use Z79.01 and Idiopathic chronic gout of multiple sites without tophus M1A.09X0 [place] [address] [facility] [id number] [address] [place] [phone] May, Other chronic pain G89.29 [place] [address] [facility] [id number] [address] [place] [address] May, Anticoagulant long-term use Z79.01 [place] [address] [facility] [id number] [address] [place] [address] May, Chronic prescription opiate use Z79.899 ; Other chronic pain G89.29 ; Essential hypertension I10 ; Factor V Leiden D68.51 ; Anticoagulant long-term use Z79.01 ; Pure hypercholesterolemia E78.00 ; Venous stasis ulcers, left I83.029 ; Idiopathic chronic gout of multiple sites without tophus M1A.09X0 and Cellulitis of left lower extremity L03.116 [facility] [address] [id number] [address] [place] [address] Apr, Other chronic pain G89.29 [facility] [address] [id number] [address] [place] [address] Mar, Other chronic pain G89.29 [facility] [address] [id number] [address] [place] [address] Mar, Factor V Leiden D68.51 ; Pur e hypercholesterolemia E78.00 and Other chronic pain G89.29 [place] [address] [id number] [address] [place] [address] Feb, Other chronic pain G89.29 [place] [address] [facility] [id number] [address] [place] [address] Jan, Idiopathic chronic gout of m ultiple sites without tophus M1A.09X0 [facility] [address] [id number] [address] [place] [phone] Jan, Other chronic pain G89.29 [place] [address] [facility] [id number] [address] [place] [address] Dec, Anticoagulant long-term use Z79.01 ; Factor V Leiden D68.51 and Other chronic pain G89.29 [place] [address] [id number] [address] [place] [address] Dec, Other chronic pain G89.29 [place] [address] [facility] [id number] [address] [place] [address] Nov, Other chronic pain G89.29 [place] [address] [facility] [id number] [address] [place] [address] Oct, Other chronic pain G89.29 [facility] [address] [facility] [id number] [address] [place] [address] Sep, Anticoagulant long-term use Z79.01 [facility] [address] [facility] [id number] [address] [place] [address] Sep, Chronic prescription opiate use Z79.899 ; Anticoagulant long-term use Z79.01 ; Essential hypertension I10 ; Pure hypercholesterolemia E78.00 ; Factor V Leiden D68.51 ; Venous stasis ulcers, left I83.029 ; Other chronic pain G89.29 and Idiopathic chronic gout of multiple sites without tophus M1A.09X0 [facility] [address] [facility] [id number] [address] [place] [phone] Aug, Anticoagulant long-term use Z79.01 [facility] [address] [facility] [id number] [address] [place] [address] Aug, Other chronic pain G89.29 [place] [address] [facility] [id number] [address] [place] [address] Aug, Essential hypertension I10 a nd Factor V Leiden D68.[address] [place] [id number] [place] [id number] Aug, Acute right ankle pain M25.571 and Tendo nitis of ankle M77.50 [place] [address] [facility] [id number] [address] [place] [phone] Aug, [facility] [address] [facility] [id number] [address] [place] [address] July, Other chronic pain G89.29 [facility] [address] [facility] [id number] [address] [place] [phone] Jun, Other chronic pain G89.29 [facility] [address] [facility] [id number] [address] [place] [address] Jun, Other chronic pain G89.29 [facility] [address] [facility] [id number] [address] [place] [address] Jun, Anticoagulant long-term use Z79.01 [facility] [address] [facility] [id number] [address] [place] [phone] May, Other chronic pain G89.29 [facility] [address] [facility] [id number] [address] [place] [address] May, Anticoagulant long-term use Z79.01 [facility] [address] [facility] [id number] [address] [place] [address] May, Other chronic pain G89.29 [facility] [address] [facility] [id number] [address] [place] [address] Apr, Anticoagulant long-term use Z79.01 [place] [address] [facility] [id number] [address] [place] [address] Apr, Other chronic pain G89.29 [place] [address] [facility] [id number] [address] [place] [address] Apr, Anticoagulant long-term use Z79.01 and Pure hypercholesterolemia E78.00 [place] [id number] [place] [address] Mar, [place] [address] [facility] [id number] [address] [place] [address] Mar, Anticoagulant long-term use Z79.01 [place] [address] [facility] [id number] [address] [place] [address] Mar, Other chronic pain G89.29 [place] [address] [facility] [id number] [address] [place] [address] Feb, Essential hypertension I10 ; Chronic prescription opiate use Z79.899 ; Other chronic pain G89.29 ; Screening Z13.9 ; Factor V Leiden D68.51 ; Anticoagulant long-term use Z79.01 ; Venous stasis dermatitis of left lower extremity I83.12 and Pure hypercholesterolemia E78.00 [place] [address] [facility] [id number] [address] [place] [id number] 14 Jan, 2016 Anticoagulant long-term use Z79.01 [place] [address] [facility] [id number] [address] [place] [address] Jan, Anticoagulant long-term use Z79.01 [facility] [address] [id number] [address] [place] [phone] Jan, [facility] [address] [facility] [id number] [address] [place] [address] Jan, [facility] [address] [facility] [id number] [address] [place] [phone] Dec, [facility] [address] [facility] [id number] [address] [place] [address] Nov, [facility] [address] [facility] [id number] [address] [place] [address] Oct, Anticoagulant long-term use Z79.01 [facility] [address] [facility] [id number] [address] [place] [address] Oct, [facility] [address] [facility] [id number] [address] [place] [address] Oct, Anticoagulant long-term use Z79.01 [facility] [address] [facility] [id number] [address] [place] [address] Sep, [facility] [address] [facility] [id number] [address] [place] [address] Aug, [facility] [address] [facility] [id number] [address] [place] [address] Aug, Chronic prescription opiate use Z79.899 ; Other chronic pain G89.29 ; Essential hypertension I10 and Pure hypercholesterolemia E78.0 [facility] [address] [facility] [id number] [address] [place] [phone] July, Hyperlipidemia, group D E78. 3 and Anticoagulant long-term use Z79.01 [facility] [address] [facility] [id number] [address] [place] [address] July, Hyperlipidemia, group D E78. 3 ; Essential hypertension I10 and Factor V Leiden D68.51 [facility] [address] [address] July, Essential hypertension I10 [facility] [address] [address] Jun, Hyperlipidemia, group D E78. 3 [facility] [address] [address] Jun, Factor V Leiden D68.51 [place] [address] [address] May, Factor V Leiden D68.51 ; Hyp erlipidemia, group D E78.3 ; Essential hypertension I10 ; Other chronic pain G89.29 and Anticoagulant long-term use Z79.01 [place] [address] [address] May, Anticoagulant long-term use Z79.01 [place] [address] [address] May, Anticoagulant long-term use Z79.01 [place] [address] [place] [id number] [address] [place] [address] May, [place] [address] [address] Apr, [place] [address] [address] Mar, [facility] [address] [place] [id number] [address] [place] [address] Mar, [facility] [id number] [place] [address] Feb, Anticoagulant long-term use Z79.01 [facility] [address] [facility] [id number] [address] [place] [address] Feb, Chronic prescription opiate use Z79.899 ; Other chronic pain G89.29 ; Hyperlipidemia, group D E78.3 ; Factor V Leiden D68.51 and Anticoagulant long- term use Z79.01 [facility] [address] [facility] [id number] [address] [place] [address] Feb, [facility] [address] [facility] [id number] [address] [place] [address] Jan, [facility] [address] [address] Dec, Hyperlipidemia, unspecified E78.5 [facility] [address] [place] [id number] [place] [address] Dec, Cellulitis of left lower ext remity L03.116 ; Venous stasis ulcers, left I83.029 and Factor V Leiden D68.51 [place] [address] [place] [id number] [address] [place] [address] Dec, Hyperlipidemia 272.4 and Fac tor V Leiden 289.81 [place] [address] [place] [id number] [address] [place] [address] Dec, [facility] [address] [place] [id number] [address] [place] [id number] Nov, 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 [facility] [address] [place] [id number] [address] [place] [address] Nov, [facility] [address] [place] [id number] [address] [place] [phone] Nov, [facility] [address] [place] [id number] [address] [place] [phone] Nov, [facility] [address] [place] [id number] [address] [place] [address] Oct, [facility] [address] [address] Oct, Hyperlipidemia 272.4 ; Chron ic pain disorder 338.4 ; Venous stasis ulcer of left lower extremity 454.0 and 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 [facility] [address] [place] [address] 14 Sep, 2014 [facility] [address] [id number] [address] [place] [address] Sep, [facility] [address] [facility] [id number] [address] [place] [address] Sep, Hyperlipidemia 272.4 and Fac tor V Leiden 289.81 [facility] [address] [id number] [address] [place] [address] Aug, [facility] [address] [facility] [id number] [address] [place] [address] Aug, 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 [facility] [address] [facility] [id number] [address] [place] [address] July, [facility] [address] [facility] [id number] [address] [place] [address] July, Essential hypertension, fito gn 401.1 ; 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 ; Chronic pain disorder 338.4 ; Hyperlipidemia 272.4 and Venous stasis ulcer of left lower extremity 454.0 [facility] [address] [facility] [id number] [address] [place] [address] Jun, [facility] [address] [facility] [id number] [address] [place] [address] Jun, [facility] [address] [facility] [id number] [address] [place] [phone] May, [facility] [address] [facility] [id number] [address] [place] [address] May, [facility] [address] [facility] [id number] [address] [place] [phone] Apr, [facility] [address] [facility] [id number] [address] [place] [phone] Apr, [facility] [address] [facility] [id number] [address] [place] [phone] Apr, [facility] [place] [facility] [address] [id number] [address] [place] [address], [place] [address] 18 Apr, 2014 [facility] [address] [id number] [address] [place] [address], [place] [address] 13 Apr, 2014 [facility] [address] [id number] [address] [place] [address], [place] [address] Apr, [facility] [address] [id number] [address] [place] [address], [place] [address] 15 Mar, 2014 [facility] [address] [id number] [address] [place] [address], [place] [address] 15 Mar, 2014 [facility] [address] [id number] [address] [place] [address], [place] [address] Mar, [facility] [address] [id number] [address] [place] [address], [place] [address] Mar, [facility] [address] [id number] [address] [place] [address], [place] [address] 17 Feb, 2014 [facility] [address] [id number] [address] [place] [address], [place] [address] 17 Feb, 2014 [facility] [address] [id number] [address] [place] [address], [place] [address] 16 Feb, 2014 [facility] [address] [id number] [address] [place] [address], [place] [address] 16 Feb, 2014 [facility] [address] [id number] [address] [place] [address], [place] [address] 24 Jan, 2014 [facility] [place] [facility] [address] [id number] [address] [place] [address], [place] [address] 19 Jan, 2014 [facility] [place] [facility] [address] [id number] [address] [place] [address], [place] [address] 19 Jan, 2014 [facility] [place] [facility] [address] [id number] [address] [place] [address], [place] [address] 14 Jan, 2014 [facility] [place] [facility] [address] [id number] [address] [place] [address], [place] [address] Jan, [facility] [address] [id number] [address] [place] [address], [place] [address] Jan, [facility] [place] [facility] [address] [id number] [address] [place] [address], [place] [address] Dec, [facility] [address] [id number] [address] [place] [address], [place] [address] Dec, [facility] [place] [facility] [address] [id number] [address] [place] [address], [place] [address] Oct, [facility] [address] [id number] [address] [place] [address], [place] [address] Oct, [facility] [address] [id number] [address] [place] [address], [place] [address] Sep, [facility] [address] [id number] [address] [place] [address], [place] [address] Sep, [facility] [address] [id number] [address] [place] [address], [place] [address] Sep, [facility] [address] [id number] [address] [place] [address], [place] [address] Sep, [facility] [address] [id number] [address] [place] [address], [place] [address] Aug, [facility] [address] [id number] [address] [place] [address], [place] [address] Aug, [facility] [address] [id number] [address] [place] [address], [place] [address] July, [facility] [address] [id number] [address] [place] [address], [place] [address] July, [facility] [address] [id number] [address] [place] [address], [place] [address] Jun, [facility] [address] [id number] [address] [place] [address], [place] [address] Jun, [facility] [address] [id number] [address] [place] [address], [place] [address] May, [facility] [address] [id number] [address] [place] [address], [place] [address] May, [facility] [address] [id number] [address] [place] [address], [place] [address] Apr, [facility] [address] [id number] [address] [place] [address], [place] [address] Apr, [facility] [address] [id number] [address] [place] [address], [place] [address] Mar, [facility] [address] [id number] [address] [place] [address], [place] [address] Mar, [facility] [address] [id number] [address] [place] [address] [id number] Jan, [facility] [address] [id number] [address] [place] [address], [place] [address] Jan, [facility] [address] [id number] [address] [place] [address], [place] [address] Jan, [facility] [address] [id number] [address] [place] [address], [place] [address] Jan, [facility] [address] [id number] [address] [place] [address], [place] [address] Jan, [facility] [address] [id number] [address] [place] [address], [place] [address] Dec, [facility] [address] [id number] [address] [place] [address], [place] [address] Dec, [facility] [address] [id number] [address] [place] [address], [place] [address] Dec, [facility] [address] [id number] [address] [place] [address], [place] [address] Nov, [facility] [address] [id number] [address] [place] [address], [place] [address] Nov, [facility] [address] [id number] [address] [place] [phone] Sep, [facility] [address] [facility] [id number] [address] [place] [phone] Sep, [facility] [address] [facility] [id number] [address] [place] [id number] Aug, [facility] [address] [id number] [address] [place] [id number] Aug, [facility] [address] [id number] [place] [id number] July, [facility] [address] [id number] [place] [id number] Jun, [facility] [address] [id number] [place] [id number] Apr, [facility] [address] [id number] [place] [id number] Mar, [facility] [address] [id number] [address] [place] [phone] Mar, [facility] [address] [id number] [place] [id number] Mar, [facility] [address] [id number] [address] [place] [phone] Mar, [facility] [address] [id number] [place] [id number] Feb, [facility] [address] [id number] [address] [place] [phone] Feb, [facility] [address] [id number] [place] [id number] Feb, [facility] [address] [id number] [address] [place] [phone] Feb, [facility] [address] [id number] [place] [id number] Oct, [facility] [address] [id number] [place] [id number] Oct, [facility] [address] [id number] [place] [id number] July, [facility] [address] [id number] [place] [id number] July, [facility] [address] [id number] [place] [id number] Jun, [facility] [address] [id number] [place] [id number] Jun, [facility] [address] [id number] [place] [id number] Jun, [facility] [address] [id number] [place] [id number] Mar, [facility] [address] [id number] [place] [id number] Mar, [facility] [address] [facility] [id number] [address] [place] [phone] Feb, [facility] [address] [facility] [id number] [address] [place] [phone] Feb, [facility] [address] [facility] [id number] [address] [place] [phone] Jan, [facility] [address] [facility] [id number] [address] [place] [phone] Jan, [facility] [address] [facility] [id number] [address] [place] [id number] Jan, [facility] [address] [facility] [id number] [address] [place] [phone] Jan, [facility] [address] [facility] [id number] [address] [place] [phone] Jan, [facility] [address] [facility] [id number] [address] [place] [phone] Aug, [facility] [address] [facility] [id number] [address] [place] [id number] Apr, IMMUNIZATIONS No Known Immunizations SOCIAL HISTORY Never Assessed REASON FOR VISIT Controlled Med refill 02/28 PLAN OF CARE VITAL SIGNS MEDICATIONS Medication Instructions Dosage Frequency Start Date End Date Duration Mahendra baxter Hydrocodone-Acetaminophen 10-325 MG Orally 4 times a day as needed for pain 1 tablet Feb, 28 days Active RESULTS No Results PROCEDURES [...]
--- OUTSIDE RECORDS SUMMARY | 2019-11-08 13:07 | XMS REPORT ---
Author Author Zana ORTIZ Organization [facility] Address [address] [place] [address] Care Team Providers Care Intellectual Property Lawyer Name Role Phone DIANADAVIDAVANI Unavailable PROBLEMS Type Condition ICD9-CM Code GIE70-FC Code Onset Dates Condition S tatus SNOMED Code Problem Factor V Leiden D68.51 Active 3070 14389 Problem Post-phlebitic syndrome I87.009 Active 03717418 Problem Anticoagulant long-term use Z79.01 Ac tive 335971293 Problem Essential hypertension I10 Active 73747124 Problem Other chronic pain G89.29 Active 8 4641973 Problem Venous stasis ulcers, left I83.029 Act ozzy 637359133 Problem 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 94872538 Problem Congenital single kidney Q60.0 Activ e 93680146 Problem Venous anomaly Q27.9 Active 85038 4003 Problem Pure hypercholesterolemia E78.00 Acti ve 594015061 Problem Chronic prescription opiate use Z79.899 Active 448502318 ALLERGIES No Information ENCOUNTERS Encounter Location Date Diagnosis [id number] [place] [id number] Feb, Anticoagulant long-term use Z79.01 and I diopathic chronic gout of multiple sites without tophus M1A.09X0 [facility] [address] [facility] [id number] [address] [place] [address] Feb, Anticoagulant long-term use Z79.01 and Idiopathic chronic gout of multiple sites without tophus M1A.09X0 [facility] [address] [facility] [id number] [address] [place] [id number] Feb, [facility] [address] [facility] [id number] [address] [place] [address] Feb, Other chronic pain G89.29 [facility] [address] [id number] [address] [place] [address] Jan, Other chronic pain G89.29 [facility] [address] [id number] [address] [place] [address] Dec, Other chronic pain G89.29 [facility] [address] [id number] [address] [place] [address] Dec, Anticoagulant long-term use Z79.01 [facility] [address] [id number] [address] [place] [address] Dec, Chronic prescription opiate use Z79.899 ; Factor V Leiden D68.51 ; Other chronic pain G89.29 and Anticoagulant long-term use Z79.01 [facility] [address] [facility] [id number] [address] [place] [address] Nov, Other chronic pain G89.29 [facility] [address] [id number] [address] [place] [address] Oct, Other chronic pain G89.29 [facility] [address] [id number] [address] [place] [address] Sep, Other chronic pain G89.29 [facility] [address] [id number] [address] [place] [address] Aug, Other chronic pain G89.29 [facility] [address] [id number] [address] [place] [address] Aug, Venous stasis ulcers, left I 83.029 [facility] [address] [id number] [address] [place] [address] July, Other chronic pain G89.29 [facility] [address] [facility] [id number] [address] [place] [address] July, Venous stasis ulcers, left I 83.029 and Snoring R06.83 [facility] [address] [id number] [address] [place] [address] Jun, Idiopathic chronic gout of m ultiple sites without tophus M1A.09X0 [facility] [address] [facility] [id number] [address] [place] [phone] Jun, Acute renal insufficiency N2 8.9 [facility] [address] [facility] [id number] [address] [place] [address] Jun, Other chronic pain G89.29 [facility] [address] [facility] [id number] [address] [place] [address] Jun, Acute renal insufficiency N2 8.[address] [id number] [place] [address] [id number] Jun, Idiopathic chronic gout of multiple site s without tophus M1A.09X0 ; Essential hypertension I10 and Anticoagulant long-term use Z79.01 [facility] [address] [place] [id number] [address] [place] [address] Jun, Anticoagulant long-term use Z79.01 and Essential hypertension I10 [facility] [address] [facility] [id number] [address] [place] [address] May, Idiopathic chronic gout of m ultiple sites without tophus M1A.09X0 [facility] [place] [address] [facility] [id number] [address] [place] [address] May, [facility] [place] [address] [facility] [id number] [address] [place] [address] May, Essential hypertension I10 ; Pure hypercholesterolemia E78.00 ; Anticoagulant long-term use Z79.01 and Idiopathic chronic gout of multiple sites without tophus M1A.09X0 [facility] [address] [facility] [id number] [address] [place] [address] May, Other chronic pain G89.29 [facility] [address] [facility] [id number] [address] [place] [address] May, Anticoagulant long-term use Z79.01 [facility] [place] [address] [facility] [id number] [address] [place] [address] May, Chronic prescription opiate use Z79.899 ; Other chronic pain G89.29 ; Essential hypertension I10 ; Factor V Leiden D68.51 ; Anticoagulant long-term use Z79.01 ; Pure hypercholesterolemia E78.00 ; Venous stasis ulcers, left I83.029 ; Idiopathic chronic gout of multiple sites without tophus M1A.09X0 and Cellulitis of left lower extremity L03.116 [facility] [address] [facility] [id number] [address] [place] [address] Apr, Other chronic pain G89.29 [facility] [address] [facility] [id number] [address] [place] [address] Mar, Other chronic pain G89.29 [facility] [address] [facility] [id number] [address] [place] [address] Mar, Factor V Leiden D68.51 ; Pur e hypercholesterolemia E78.00 and Other chronic pain G89.29 [facility] [address] [facility] [id number] [address] [place] [address] Feb, Other chronic pain G89.29 [facility] [place] [address] [facility] [id number] [address] [place] [address] Jan, Idiopathic chronic gout of m ultiple sites without tophus M1A.09X0 [facility] [address] [facility] [id number] [address] [place] [address] Jan, Other chronic pain G89.29 [facility] [place] [address] [facility] [id number] [address] [place] [address] Dec, Anticoagulant long-term use Z79.01 ; Factor V Leiden D68.51 and Other chronic pain G89.29 [facility] [place] [address] [facility] [id number] [address] [place] [address] Dec, Other chronic pain G89.29 [facility] [address] [place] [id number] [address] [place] [address] Nov, Other chronic pain G89.29 [facility] [address] [facility] [id number] [address] [place] [address] Oct, Other chronic pain G89.29 [facility] [address] [facility] [id number] [address] [place] [address] Sep, Anticoagulant long-term use Z79.01 [facility] [address] [facility] [id number] [address] [place] [address] Sep, Chronic prescription opiate use Z79.899 ; Anticoagulant long-term use Z79.01 ; Essential hypertension I10 ; Pure hypercholesterolemia E78.00 ; Factor V Leiden D68.51 ; Venous stasis ulcers, left I83.029 ; Other chronic pain G89.29 and Idiopathic chronic gout of multiple sites without tophus M1A.09X0 [facility] [address] [facility] [id number] [address] [place] [address] Aug, Anticoagulant long-term use Z79.01 [facility] [address] [facility] [id number] [address] [place] [address] Aug, Other chronic pain G89.29 [facility] [address] [facility] [id number] [address] [place] [address] Aug, Essential hypertension I10 a nd Factor V Leiden D68.[address] [id number] [place] [address] [id number] Aug, Acute right ankle pain M25.571 and Tendo nitis of ankle M77.50 [place] [address] [facility] [id number] [address] [place] [address] Aug, [place] [address] [facility] [id number] [address] [place] [address] July, Other chronic pain G89.29 [facility] [address] [facility] [id number] [address] [place] [address] Jun, Other chronic pain G89.29 [place] [address] [facility] [id number] [address] [place] [address] Jun, Other chronic pain G89.29 [facility] [address] [facility] [id number] [address] [place] [address] Jun, Anticoagulant long-term use Z79.01 [facility] [address] [facility] [id number] [address] [place] [address] May, Other chronic pain G89.29 [facility] [address] [facility] [id number] [address] [place] [address] May, Anticoagulant long-term use Z79.01 [facility] [address] [facility] [id number] [address] [place] [address] May, Other chronic pain G89.29 [facility] [address] [facility] [id number] [address] [place] [address] Apr, Anticoagulant long-term use Z79.01 [facility] [address] [facility] [id number] [address] [place] [address] Apr, Other chronic pain G89.29 [facility] [address] [facility] [id number] [address] [place] [address] Apr, Anticoagulant long-term use Z79.01 and Pure hypercholesterolemia E78.00 [facility] [address] [facility] [id number] [address] [place] [address] Mar, [facility] [address] [facility] [id number] [address] [place] [address] Mar, Anticoagulant long-term use Z79.01 [facility] [address] [facility] [id number] [address] [place] [address] Mar, Other chronic pain G89.29 [facility] [address] [facility] [id number] [address] [place] [address] Feb, Essential hypertension I10 ; Chronic prescription opiate use Z79.899 ; Other chronic pain G89.29 ; Screening Z13.9 ; Factor V Leiden D68.51 ; Anticoagulant long-term use Z79.01 ; Venous stasis dermatitis of left lower extremity I83.12 and Pure hypercholesterolemia E78.00 [facility] [address] [facility] [id number] [address] [place] [address] 14 Jan, 2016 Anticoagulant long-term use Z79.01 [facility] [address] [id number] [address] [place] [address] Jan, Anticoagulant long-term use Z79.01 [facility] [address] [id number] [address] [place] [address] Jan, [facility] [address] [id number] [address] [place] [address] Jan, [facility] [address] [facility] [id number] [address] [place] [address] Dec, [facility] [address] [facility] [id number] [address] [place] [address] Nov, [facility] [address] [facility] [id number] [address] [place] [address] Oct, Anticoagulant long-term use Z79.01 [facility] [address] [facility] [id number] [address] [place] [address] Oct, [facility] [address] [facility] [id number] [address] [place] [address] Oct, Anticoagulant long-term use Z79.01 [facility] [address] [facility] [id number] [address] [place] [address] Sep, [facility] [address] [facility] [id number] [address] [place] [address] Aug, [facility] [address] [place] [id number] [place] [address] Aug, Chronic prescription opiate use Z79.899 ; Other chronic pain G89.29 ; Essential hypertension I10 and Pure hypercholesterolemia E78.0 [facility] [address] [place] [id number] [address] [place] [address] July, Hyperlipidemia, group D E78. 3 and Anticoagulant long-term use Z79.01 [facility] [address] [facility] [id number] [address] [place] [address] July, Hyperlipidemia, group D E78. 3 ; Essential hypertension I10 and Factor V Leiden D68.51 [facility] [address] [facility] [id number] [address] [place] [address] July, Essential hypertension I10 [facility] [address] [facility] [id number] [address] [place] [address] Jun, Hyperlipidemia, group D E78. 3 [facility] [address] [facility] [id number] [place] [address] Jun, Factor V Leiden D68.51 [place] [address] [address] May, Factor V Leiden D68.51 ; Hyp erlipidemia, group D E78.3 ; Essential hypertension I10 ; Other chronic pain G89.29 and Anticoagulant long-term use Z79.01 [place] [address] [facility] [id number] [address] May, Anticoagulant long-term use Z79.01 [place] [address] [facility] [id number] [address] [place] [address] May, Anticoagulant long-term use Z79.01 [facility] [address] [facility] [id number] [address] [place] [address] May, [facility] [address] [facility] [id number] [address] [place] [address] Apr, [facility] [address] [place] [id number] [address] [place] [address] Mar, [facility] [address] [facility] [id number] [address] [place] [address] Mar, [facility] [address] [place] [id number] [address] [place] [address] Feb, Anticoagulant long-term use Z79.01 [facility] [address] [facility] [id number] [address] [place] [address] 16 Feb, 2015 Chronic prescription opiate use Z79.899 ; Other chronic pain G89.29 ; Hyperlipidemia, group D E78.3 ; Factor V Leiden D68.51 and Anticoagulant long- term use Z79.01 [facility] [address] [facility] [id number] [address] [place] [address] Feb, [facility] [address] [facility] [id number] [address] [place] [address] Jan, [facility] [address] [facility] [id number] [address] [place] [address] Dec, Hyperlipidemia, unspecified E78.5 [facility] [address] [facility] [id number] [address] [place] [address] Dec, Cellulitis of left lower ext remity L03.116 ; Venous stasis ulcers, left I83.029 and Factor V Leiden D68.51 [place] [address] [facility] [id number] [address] [place] [address] Dec, Hyperlipidemia 272.4 and Fac tor V Leiden 289.81 [place] [address] [facility] [id number] [address] [place] [address] Dec, [facility] [address] [facility] [id number] [address] [place] [address] Nov, 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 [place] [address] [facility] [id number] [address] [place] [address] Nov, [facility] [address] [facility] [id number] [address] [place] [address] Nov, [facility] [address] [facility] [id number] [address] [place] [address] Nov, [facility] [address] [facility] [id number] [address] [place] [address] Oct, [facility] [address] [facility] [id number] [address] [place] [address] Oct, Hyperlipidemia 272.4 ; Chron ic pain disorder 338.4 ; Venous stasis ulcer of left lower extremity 454.0 and 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 [facility] [address] [facility] [id number] [address] [place] [address] Sep, [facility] [address] [id number] [address] [place] [address] Sep, [facility] [address] [facility] [id number] [address] [place] [address] Sep, Hyperlipidemia 272.4 and Fac tor V Leiden 289.81 [facility] [address] [facility] [id number] [address] [place] [address] Aug, [facility] [address] [facility] [id number] [address] [place] [address] Aug, 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 [facility] [address] [facility] [id number] [address] [place] [address] July, [facility] [address] [facility] [id number] [address] [place] [address] July, Essential hypertension, fito gn 401.1 ; 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 ; Chronic pain disorder 338.4 ; Hyperlipidemia 272.4 and Venous stasis ulcer of left lower extremity 454.0 [facility] [address] [facility] [id number] [address] [place] [address] Jun, [facility] [address] [facility] [id number] [address] [place] [address] Jun, [facility] [address] [facility] [id number] [address] [place] [address] May, [facility] [address] [facility] [id number] [address] [place] [address] May, [facility] [address] [id number] [address] [place] [address], [place] [address] 20 Apr, 2014 [facility] [address] [id number] [address] [place] [address], [place] [address] 20 Apr, 2014 [facility] [address] [id number] [address] [place] [address], [place] [address] 18 Apr, 2014 [facility] [address] [id number] [address] [place] [address], [place] [address] 18 Apr, 2014 [facility] [address] [id number] [address] [place] [address], [place] [address] 13 Apr, 2014 [facility] [address] [id number] [address] [place] [address], [place] [address] 13 Apr, 2014 [facility] [address] [id number] [address] [place] [address], [place] [address] 15 Mar, 2014 [facility] [address] [id number] [address] [place] [address], [place] [address] 15 Mar, 2014 [facility] [address] [id number] [address] [place] [address], [place] [address] Mar, [facility] [address] [id number] [address] [place] [address], [place] [address] Mar, [facility] [address] [id number] [address] [place] [address], [place] [address] 17 Feb, 2014 [facility] [address] [id number] [address] [place] [address], [place] [address] 17 Feb, 2014 [facility] [address] [id number] [address] [place] [address], [place] [address] 16 Feb, 2014 [facility] [address] [id number] [address] [place] [address], [place] [address] 16 Feb, 2014 [facility] [address] [id number] [address] [place] [address], [place] [address] 24 Jan, 2014 [facility] [address] [id number] [address] [place] [address], [place] [address] Jan, [facility] [address] [id number] [address] [place] [address], [place] [address] Jan, [facility] [address] [id number] [address] [place] [address], [place] [address] Jan, [facility] [address] [id number] [address] [place] [address], [place] [address] Jan, [facility] [address] [id number] [address] [place] [address], [place] [address] Jan, [facility] [address] [id number] [address] [place] [address], [place] [address] Dec, [facility] [address] [id number] [address] [place] [address], [place] [address] Dec, [facility] [address] [id number] [address] [place] [address], [place] [address] Oct, [facility] [address] [id number] [address] [place] [address], [place] [address] Oct, [facility] [address] [id number] [address] [place] [address], [place] [address] Sep, [facility] [address] [id number] [address] [place] [address], [place] [address] Sep, [facility] [address] [id number] [address] [place] [address], [place] [address] Sep, [facility] [address] [id number] [address] [place] [address], [place] [address] Sep, [facility] [address] [id number] [address] [place] [address], [place] [address] Aug, [facility] [address] [id number] [address] [place] [address], [place] [address] Aug, [facility] [address] [id number] [address] [place] [address], [place] [address] July, [facility] [address] [id number] [address] [place] [address], [place] [address] July, [facility] [address] [id number] [address] [place] [address], [place] [address] Jun, [facility] [address] [id number] [address] [place] [address], [place] [address] Jun, [facility] [address] [id number] [address] [place] [address], [place] [address] May, [facility] [address] [id number] [address] [place] [address], [place] [address] May, [facility] [address] [id number] [address] [place] [address], [place] [address] Apr, [facility] [address] [id number] [address] [place] [address], [place] [address] Apr, [facility] [address] [id number] [address] [place] [address], [place] [address] Mar, [facility] [address] [id number] [address] [place] [address], [place] [address] Mar, [facility] [address] [id number] [address] [place] [address], [place] [address] Jan, [facility] [address] [id number] [address] [place] [address], [place] [address] Jan, [facility] [address] [id number] [address] [place] [address], [place] [address] Jan, [facility] [address] [id number] [address] [place] [address], [place] [address] Jan, [facility] [address] [id number] [address] [place] [address], [place] [address] Jan, [facility] [address] [id number] [address] [place] [address], [place] [address] Dec, [facility] [address] [id number] [address] [place] [address], [place] [address] Dec, [facility] [address] [id number] [address] [place] [address], [place] [address] Dec, [facility] [address] [id number] [address] [place] [address], [place] [address] Nov, [facility] [address] [id number] [address] [place] [address], [place] [address] Nov, [facility] [address] [id number] [address] [place] [address], [place] [address] Sep, [facility] [address] [id number] [address] [place] [address], [place] [address] Sep, [facility] [address] [id number] [address] [place] [address], [place] [address] Aug, [facility] [address] [id number] [address] [place] [address], [place] [address] Aug, [facility] [address] [id number] [place] [id number] July, [facility] [address] [id number] [place] [id number] Jun, [facility] [address] [id number] [place] [id number] Apr, [facility] [address] [id number] [place] [id number] Mar, [facility] [address] [id number] [address] [place] [address], [place] [address] Mar, [facility] [address] [id number] [place] [id number] Mar, [facility] [address] [id number] [address] [place] [address], [place] [address] Mar, [facility] [address] [id number] [place] [id number] Feb, [facility] [address] [id number] [address] [place] [address], [place] [address] Feb, [facility] [address] [id number] [place] [id number] Feb, [facility] [address] [id number] [address] [place] [address] Feb, [facility] [address] [id number] [place] [id number] Oct, [facility] [address] [id number] [place] [id number] Oct, [facility] [address] [id number] [place] [id number] July, [facility] [address] [id number] [place] [id number] July, [facility] [address] [id number] [place] [id number] Jun, [facility] [address] [id number] [place] [id number] Jun, [facility] [address] [id number] [place] [id number] Jun, [facility] [address] [id number] [place] [id number] Mar, [facility] [address] [id number] [place] [id number] Mar, [facility] [address] [facility] [id number] [address] [place] [address] Feb, [facility] [address] [facility] [id number] [address] [place] [address] Feb, [facility] [address] [facility] [id number] [address] [place] [phone] Jan, [facility] [address] [facility] [id number] [address] [place] [address] Jan, [facility] [address] [facility] [id number] [address] [place] [address] Jan, [facility] [address] [facility] [id number] [address] [place] [address] Jan, [facility] [address] [facility] [id number] [address] [address] 11 Jan, 2011 [facility] [address] [facility] [id number] [address] [place] [id number] 14 Aug, 2010 [facility] [address] [facility] [id number] [address] [address] 17 Apr, 2010 IMMUNIZATIONS No Known Immunizations SOCIAL HISTORY Never Assessed REASON FOR VISIT labs Zaira JOYA PLAN OF CARE Activity Details Pending Test INR (IN HOUSE) Pending Test BMP Pending Test URIC ACID, SERUM VITAL SIGNS MEDICATIONS Unknown Medications RESULTS No Results PROCEDURES Procedure Date Ordered Result Body Site PROTHROMBIN TIME Mar 08, 2018 BASIC METABOLIC PANEL Mar 08, 2018 VENIPUNCT, ROUTINE* Mar 08, 2018 ASSAY OF BLOOD/URIC ACID Mar 08, 2018 INSTRUCTIONS MEDICATIONS ADMINISTERED No Known Medications [...]
--- OUTSIDE RECORDS SUMMARY | 2019-11-08 13:08 | XMS REPORT ---
Author Author Zana ORTIZ [facility] Address [address] [place] [address] Care Team Providers Care Lumber Inspector Name Role Phone DIANADAVIDAVANI Unavailable PROBLEMS Type Condition ICD9-CM Code [id number] Code Onset Dates Condition S tatus SNOMED Code Problem Factor V Leiden D68.51 Active 3070 00417 Problem Post-phlebitic syndrome I87.009 Active 61426796 Problem Anticoagulant long-term use Z79.01 Ac tive 783945889 Problem Essential hypertension I10 Active 04526204 Problem Other chronic pain G89.29 Active 8 6496498 Problem Venous stasis ulcers, left I83.029 Act ozzy 857118066 Problem 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 08506072 Problem Congenital single kidney Q60.0 Activ e 72581245 Problem Venous anomaly Q27.9 Active 76195 4003 Problem Pure hypercholesterolemia E78.00 Acti ve 964152663 Problem Chronic prescription opiate use Z79.899 Active 870605055 ALLERGIES Substance Reaction Event Type Date Status Tetanus Unknown Drug Allergy Dec, Active Morphine Sulfate Unknown Drug Allergy Dec, Active Amoxicillin Unknown Drug Allergy Dec, Active ENCOUNTERS Encounter Location Date Diagnosis [facility] [address] [facility] [place] [facility] [id number] [address] [place] [address] Dec, Other chronic pain G89.29 [facility] [address] [facility] [place] [id number] [address] [place] [address] Dec, Anticoagulant long-term use Z79.01 [facility] [address] [facility] [place] [id number] [address] [place] [address] Dec, Chronic prescription opiate use Z79.899 ; Factor V Leiden D68.51 ; Other chronic pain G89.29 and Anticoagulant long-term use Z79.01 [facility] [address] [facility] [place] [id number] [address] [place] [address] Nov, Other chronic pain G89.29 [facility] [address] [facility] [place] [id number] [address] [place] [address] Oct, Other chronic pain G89.29 [facility] [address] [facility] [place] [id number] [address] [place] [address] Sep, Other chronic pain G89.29 [facility] [address] [facility] [place] [id number] [address] [place] [address] Aug, Other chronic pain G89.29 [facility] [address] [facility] [place] [id number] [address] [place] [address] Aug, Venous stasis ulcers, left I 83.029 [place] [address] [facility] [place] [id number] [address] [place] [address] July, Other chronic pain G89.29 [facility] [address] [facility] [place] [id number] [address] [place] [address] July, Venous stasis ulcers, left I 83.029 and Snoring R06.83 [facility] [address] [facility] [place] [id number] [address] [place] [address] Jun, Idiopathic chronic gout of m ultiple sites without tophus M1A.09X0 [place] [address] [facility] [place] [id number] [address] [place] [address] Jun, Acute renal insufficiency N2 8.9 [facility] [address] [facility] [place] [id number] [address] [place] [address] Jun, Other chronic pain G89.29 [facility] [address] [facility] [place] [id number] [address] [place] [address] Jun, Acute renal insufficiency N2 8.9 [facility] [id number] [place] [id number] Jun, Idiopathic chronic gout of multiple site s without tophus M1A.09X0 ; Essential hypertension I10 and Anticoagulant long-term use Z79.01 [place] [address] [facility] [place] [id number] [address] [place] [address] Jun, Anticoagulant long-term use Z79.01 and Essential hypertension I10 [place] [address] [facility] [place] [id number] [address] [place] [address] May, Idiopathic chronic gout of m ultiple sites without tophus M1A.09X0 [place] [address] [facility] [place] [id number] [address] [place] [address] May, [place] [address] [facility] [place] [id number] [place] [address] May, Essential hypertension I10 ; Pure hypercholesterolemia E78.00 ; Anticoagulant long-term use Z79.01 and Idiopathic chronic gout of multiple sites without tophus M1A.09X0 [place] [id number] [place] [address] May, Other chronic pain G89.29 [place] [address] [place] [address] May, Anticoagulant long-term use Z79.01 [place] [address] [place] [id number] [address] [place] [address] May, Chronic prescription opiate use Z79.899 ; Other chronic pain G89.29 ; Essential hypertension I10 ; Factor V Leiden D68.51 ; Anticoagulant long-term use Z79.01 ; Pure hypercholesterolemia E78.00 ; Venous stasis ulcers, left I83.029 ; Idiopathic chronic gout of multiple sites without tophus M1A.09X0 and Cellulitis of left lower extremity L03.116 [place] [address] [place] [id number] [address] [place] [address] Apr, Other chronic pain G89.29 [place] [address] [place] [id number] [address] [place] [address] Mar, Other chronic pain G89.29 [place] [address] [place] [id number] [address] [place] [address] Mar, Factor V Leiden D68.51 ; Pur e hypercholesterolemia E78.00 and Other chronic pain G89.29 [place] [address] [place] [id number] [address] [place] [address] Feb, Other chronic pain G89.29 [place] [address] [address] Jan, Idiopathic chronic gout of m ultiple sites without tophus M1A.09X0 [place] [address] [place] [id number] [address] [place] [address] Jan, Other chronic pain G89.29 [place] [address] [place] [id number] [place] [address] Dec, Anticoagulant long-term use Z79.01 ; Factor V Leiden D68.51 and Other chronic pain G89.29 [place] [address] [place] [id number] [address] [place] [address] Dec, Other chronic pain G89.29 [place] [address] [address] Nov, Other chronic pain G89.29 [place] [address] [place] [id number] [place] [address] Oct, Other chronic pain G89.29 [place] [address] [place] [id number] [address] [place] [address] Sep, Anticoagulant long-term use Z79.01 [place] [address] [facility] [place] [id number] [address] [place] [address] Sep, Chronic prescription opiate use Z79.899 ; Anticoagulant long-term use Z79.01 ; Essential hypertension I10 ; Pure hypercholesterolemia E78.00 ; Factor V Leiden D68.51 ; Venous stasis ulcers, left I83.029 ; Other chronic pain G89.29 and Idiopathic chronic gout of multiple sites without tophus M1A.09X0 [facility] [address] [facility] [place] [id number] [address] [place] [address] Aug, Anticoagulant long-term use Z79.01 [facility] [address] [id number] [address] [place] [address] Aug, Other chronic pain G89.29 [facility] [address] [facility] [place] [id number] [address] [place] [address] Aug, Essential hypertension I10 a nd Factor V Leiden D68.[id number] [place] [id number] Aug, 2016 Acute right ankle pain M25.571 and Tendo nitis of ankle M77.50 [facility] [address] [facility] [place] [id number] [address] [place] [address] Aug, [facility] [address] [facility] [place] [id number] [address] [place] [address] July, Other chronic pain G89.29 [facility] [address] [id number] [address] [place] [address] Jun, Other chronic pain G89.29 [facility] [address] [facility] [place] [id number] [address] [place] [address] Jun, Other chronic pain G89.29 [facility] [address] [facility] [place] [id number] [address] [place] [address] Jun, Anticoagulant long-term use Z79.01 [facility] [address] [id number] [address] [place] [address] May, Other chronic pain G89.29 [facility] [address] [facility] [place] [id number] [address] [place] [address] May, Anticoagulant long-term use Z79.01 [facility] [address] [facility] [place] [id number] [address] [place] [address] May, Other chronic pain G89.29 [facility] [address] [facility] [place] [id number] [address] [place] [address] 06 Apr, 2016 Anticoagulant long-term use Z79.01 [facility] [address] [place] [address] Apr, Other chronic pain G89.29 [facility] [address] [address] Apr, Anticoagulant long-term use Z79.01 and Pure hypercholesterolemia E78.00 [facility] [address] [address] Mar, [place] [address] [address] Mar, Anticoagulant long-term use Z79.01 [place] [address] [address] Mar, Other chronic pain G89.29 [place] [address] [address] Feb, Essential hypertension I10 ; Chronic prescription opiate use Z79.899 ; Other chronic pain G89.29 ; Screening Z13.9 ; Factor V Leiden D68.51 ; Anticoagulant long-term use Z79.01 ; Venous stasis dermatitis of left lower extremity I83.12 and Pure hypercholesterolemia E78.00 [place] [address] [place] [id number] [address] [place] [address] 14 Jan, 2016 Anticoagulant long-term use Z79.01 [facility] [address] [place] [id number] [address] [place] [address] Jan, Anticoagulant long-term use Z79.01 [place] [address] [address] Jan, [place] [address] [place] [id number] [address] [place] [address] Jan, [place] [address] [address] Dec, [facility] [address] [facility] [place] [id number] [address] [place] [address] Nov, [facility] [address] [facility] [place] [id number] [address] [place] [address] Oct, Anticoagulant long-term use Z79.01 [facility] [address] [facility] [place] [id number] [address] [place] [address] Oct, [facility] [address] [facility] [place] [id number] [address] [place] [address] Oct, Anticoagulant long-term use Z79.01 [facility] [address] [facility] [place] [id number] [address] [place] [address] Sep, [facility] [address] [facility] [place] [id number] [address] [place] [address] Aug, [facility] [address] [place] [id number] [place] [address] Aug, Chronic prescription opiate use Z79.899 ; Other chronic pain G89.29 ; Essential hypertension I10 and Pure hypercholesterolemia E78.0 [facility] [address] [address] July, Hyperlipidemia, group D E78. 3 and Anticoagulant long-term use Z79.01 [facility] [address] [facility] [place] [id number] [address] [place] [address] July, Hyperlipidemia, group D E78. 3 ; Essential hypertension I10 and Factor V Leiden D68.51 [facility] [address] [facility] [place] [id number] [address] [place] [address] July, Essential hypertension I10 [facility] [address] [facility] [place] [id number] [address] [place] [address] Jun, Hyperlipidemia, group D E78. 3 [facility] [address] [facility] [place] [id number] [address] [place] [address] Jun, Factor V Leiden D68.51 [facility] [address] [id number] [address] [place] [address] May, Factor V Leiden D68.51 ; Hyp erlipidemia, group D E78.3 ; Essential hypertension I10 ; Other chronic pain G89.29 and Anticoagulant long-term use Z79.01 [facility] [address] [facility] [place] [id number] [address] [place] [address] 04 May, 2015 Anticoagulant long-term use Z79.01 [facility] [address] [facility] [place] [id number] [address] [place] [address] 04 May, 2015 Anticoagulant long-term use Z79.01 [facility] [address] [facility] [place] [id number] [address] [place] [address] May, [facility] [address] [facility] [place] [id number] [address] [place] [address] Apr, [facility] [address] [place] [id number] [place] [address] Mar, [facility] [address] [facility] [place] [id number] [address] [place] [address] Mar, [facility] [address] [facility] [place] [id number] [address] [place] [address] Feb, Anticoagulant long-term use Z79.01 [facility] [address] [facility] [place] [id number] [address] [place] [address] Feb, Chronic prescription opiate use Z79.899 ; Other chronic pain G89.29 ; Hyperlipidemia, group D E78.3 ; Factor V Leiden D68.51 and Anticoagulant long- term use Z79.01 [facility] [address] [facility] [place] [id number] [address] [place] [address] Feb, [facility] [address] [facility] [place] [id number] [address] [place] [address] Jan, [facility] [address] [facility] [place] [id number] [address] [place] [address] Dec, Hyperlipidemia, unspecified E78.5 [facility] [address] [facility] [place] [id number] [address] [place] [address] Dec, Cellulitis of left lower ext remity L03.116 ; Venous stasis ulcers, left I83.029 and Factor V Leiden D68.51 [facility] [address] [facility] [place] [id number] [address] [place] [address] Dec, Hyperlipidemia 272.4 and Fac tor V Leiden 289.81 [facility] [address] [id number] [address] [place] [address] Dec, [facility] [address] [facility] [place] [id number] [address] [place] [address] Nov, 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 [facility] [address] [facility] [place] [id number] [address] [place] [address] Nov, [facility] [address] [facility] [place] [id number] [address] [place] [address] Nov, [facility] [address] [facility] [place] [id number] [address] [place] [address] Nov, [facility] [address] [facility] [place] [id number] [address] [place] [address] Oct, [facility] [address] [facility] [place] [id number] [address] [place] [address] Oct, Hyperlipidemia 272.4 ; Chron ic pain disorder 338.4 ; Venous stasis ulcer of left lower extremity 454.0 and 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 [facility] [address] [facility] [place] [id number] [address] [place] [address] Sep, [facility] [address] [facility] [place] [id number] [address] [place] [address] Sep, [facility] [address] [facility] [place] [id number] [address] [place] [address] Sep, Hyperlipidemia 272.4 and Fac tor V Leiden 289.81 [facility] [address] [id number] [address] [place] [address] Aug, [facility] [address] [id number] [address] [place] [address] Aug, 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 [facility] [address] [id number] [address] [place] [address] July, [facility] [address] [facility] [place] [id number] [address] [place] [address] July, Essential hypertension, fito gn 401.1 ; 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 ; Chronic pain disorder 338.4 ; Hyperlipidemia 272.4 and Venous stasis ulcer of left lower extremity 454.0 [facility] [address] [id number] [address] [place] [address] Jun, [facility] [address] [facility] [place] [id number] [address] [place] [address] Jun, [facility] [address] [id number] [address] [place] [address] May, [facility] [address] [id number] [address] [place] [address] May, [facility] [address] [facility] [place] [id number] [address] [place] [address] Apr, [facility] [address] [facility] [place] [id number] [address] [place] [address] Apr, [facility] [address] [id number] [address] [place] [address] Apr, [facility] [address] [id number] [address] [place] [address] Apr, [facility] [address] [id number] [address] [place] [address] Apr, [facility] [address] [facility] [place] [id number] [address] [place] [address] Apr, [facility] [address] [id number] [address] [place] [address], [place] [address] 15 Mar, 2014 [facility] [address] [id number] [address] [place] [address], [place] [address] 15 Mar, 2014 [facility] [address] [id number] [address] [place] [address], [place] [address] Mar, [facility] [address] [id number] [address] [place] [address], [place] [address] Mar, [facility] [address] [id number] [address] [place] [address], [place] [address] 17 Feb, 2014 [facility] [address] [id number] [address] [place] [address], [place] [address] 17 Feb, 2014 [facility] [address] [id number] [address] [place] [address], [place] [address] 16 Feb, 2014 [facility] [address] [id number] [address] [place] [address], [place] [address] 16 Feb, 2014 [facility] [address] [id number] [address] [place] [address], [place] [address] 24 Jan, 2014 [facility] [address] [id number] [address] [place] [address], [place] [address] Jan, [facility] [address] [id number] [address] [place] [address], [place] [address] Jan, [facility] [address] [id number] [address] [place] [address], [place] [address] Jan, [facility] [address] [id number] [address] [place] [address], [place] [address] Jan, [facility] [address] [id number] [address] [place] [address], [place] [address] Jan, [facility] [address] [id number] [address] [place] [address], [place] [address] Dec, [facility] [address] [id number] [address] [place] [address], [place] [address] Dec, [facility] [address] [id number] [address] [place] [address], [place] [address] Oct, [facility] [address] [id number] [address] [place] [address], [place] [address] Oct, [facility] [address] [id number] [address] [place] [address], [place] [address] Sep, [facility] [address] [id number] [address] [place] [address], [place] [address] Sep, [facility] [address] [id number] [address] [place] [address], [place] [address] Sep, [facility] [address] [id number] [address] [place] [address], [place] [address] Sep, [facility] [address] [id number] [address] [place] [address], [place] [address] Aug, [facility] [address] [id number] [address] [place] [address], [place] [address] Aug, [facility] [address] [id number] [address] [place] [address], [place] [address] July, [facility] [address] [id number] [address] [place] [address], [place] [address] July, [facility] [address] [id number] [address] [place] [address], [place] [address] Jun, [facility] [address] [id number] [address] [place] [address], [place] [address] Jun, [facility] [address] [id number] [address] [place] [address], [place] [address] May, [facility] [address] [id number] [address] [place] [address], [place] [address] May, [facility] [address] [id number] [address] [place] [address], [place] [address] Apr, [facility] [address] [id number] [address] [place] [address], [place] [address] Apr, [facility] [address] [id number] [address] [place] [address], [place] [address] Mar, [facility] [address] [id number] [address] [place] [address], [place] [address] Mar, [facility] [address] [id number] [address] [place] [address], [place] [address] Jan, [facility] [facility] [address] [id number] [address] [place] [address], [place] [address] Jan, [facility] [address] [id number] [address] [place] [address], [place] [address] Jan, [facility] [address] [id number] [address] [place] [address], [place] [address] Jan, [facility] [address] [id number] [address] [place] [address], [place] [address] Jan, [facility] [address] [id number] [address] [place] [address], [place] [address] Dec, [facility] [address] [id number] [address] [place] [address], [place] [address] Dec, [facility] [address] [id number] [address] [place] [address], [place] [address] Dec, [facility] [address] [id number] [address] [place] [address], [place] [address] Nov, [facility] [address] [id number] [address] [place] [address], [place] [address] Nov, [facility] [address] [id number] [address] [place] [address], [place] [address] Sep, [facility] [address] [id number] [address] [place] [address], [place] [address] Sep, [facility] [address] [id number] [address] [place] [address], [place] [address] Aug, [facility] [address] [id number] [facility] [address] Aug, [facility] [address] [id number] [place] [id number] July, [facility] [address] [id number] [place] [id number] Jun, [facility] [address] [id number] [place] [id number] Apr, [facility] [address] [id number] [place] [id number] Mar, [facility] [address] [facility] [place] [id number] [facility] [place] [address] Mar, [facility] [address] [id number] [place] [id number] Mar, [facility] [address] [facility] [place] [id number] [address] [place] [address], [place] [address] Mar, [facility] [address] [id number] [place] [id number] Feb, [facility] [address] [facility] [place] [id number] [address] [place] [id number] Feb, [facility] [address] [id number] [place] [id number] Feb, [facility] [address] [facility] [place] [id number] [address] [place] [address], [place] [address] Feb, [facility] [address] [id number] [place] [id number] Oct, [facility] [address] [id number] [place] [id number] Oct, [facility] [address] [id number] [place] [id number] July, [facility] [address] [id number] [place] [id number] July, [facility] [address] [id number] [place] [id number] Jun, [facility] [address] [id number] [place] [id number] Jun, [facility] [place] [address] [id number] [place] [id number] Jun, [facility] [place] [address] [id number] [place] [id number] Mar, [facility] [place] [address] [id number] [place] [id number] Mar, [facility] [address] [id number] [address] [place] [id number] Feb, [facility] [address] [id number] [address] [place] [id number] Feb, [facility] [address] [id number] [address] [place] [id number] Jan, [facility] [address] [facility] [place] [id number] [address] [place] [id number] Jan, [facility] [address] [facility] [place] [id number] [address] [place] [id number] Jan, [facility] [address] [facility] [place] [id number] [address] [place] [phone] Jan, [facility] [address] [facility] [place] [id number] [address] [place] [id number] Jan, [facility] [address] [facility] [place] [id number] [address] [place] [id number] Aug, [facility] [address] [facility] [place] [id number] [address] [place] [id number] Apr, IMMUNIZATIONS No Known Immunizations SOCIAL HISTORY Never Assessed REASON FOR VISIT Pain management (chronic)-[facility] PLAN OF CARE Activity Details Follow Up 6 Months Reason:Chronic pain /HLD VITAL SIGNS Height 76 in 2017-12-27 Weight 316.7 lbs 2017-12-27 Temperature 99.5 degrees Fahrenheit 2017-12-27 Heart Rate 90 bpm 2017-12-27 Respiratory Rate 18 2017-12-27 BMI 38.55 kg/m2 2017-12-27 Blood pressure systolic 124 mmHg 2017-12-27 Blood pressure diastolic 82 mmHg 2017-12-27 MEDICATIONS Medication Instructions Dosage Frequency Start Date End Date Duration Mahendra baxter Hydrocodone-Acetaminophen 10-325 MG Orally 4 times a day as needed for pain 1 tablet Nov, Active Aspirin 325 MG Orally Once a day 1 tablet 24h Active Fish Oil 1 gram take 1 capsule by Oral route 3 times per day Sep, Active Gabapentin 400 mg Orally Three times a day 1 tablet 8h July, 90 days Active Warfarin Sodium 10 mg Orally Once a day 1 tablet 24h 90 days Active Pravastatin Sodium 40 MG TAKE ONE TABLET BY MOUTH ONCE DAILY 90 Active Lisinopril 20 mg Orally Once a day 1 tablet 24h 90 Active RESULTS No Results PROCEDURES Procedure Date Ordered Result Body Site DRUG TEST PRSMV CHEM ANLYZR Dec 27, 2017 PROTHROMBIN TIME Dec 27, 2017 INSTRUCTIONS MEDICATIONS ADMINISTERED No Known Medications MEDICAL [...]
--- OUTSIDE RECORDS SUMMARY | 2019-11-08 13:08 | XMS REPORT ---
Author Author Zana EDDY Organization [facility] Address [address] [place] [address] Care Team Providers Care Chief Vendor Quality Name Role Phone SPENCER EDDY Unavailable PROBLEMS Type Condition ICD9-CM Code [id number] Code Onset Dates Condition S tatus SNOMED Code Problem Factor V Leiden D68.51 Active 3070 49481 Problem Post-phlebitic syndrome I87.009 Active 40937167 Problem Anticoagulant long-term use Z79.01 Ac tive 527958898 Problem Essential hypertension I10 Active 28718772 Problem Other chronic pain G89.29 Active 8 0694152 Problem Venous stasis ulcers, left I83.029 Act ozzy 200693313 Problem 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 11469782 Problem Congenital single kidney Q60.0 Activ e 46762618 Problem Venous anomaly Q27.9 Active 87950 4003 Problem Pure hypercholesterolemia E78.00 Acti ve 126205687 Problem Chronic prescription opiate use Z79.899 Active [id number] ALLERGIES No Information ENCOUNTERS Encounter Location Date Diagnosis [facility] [address] [facility] [id number] [address] [place] [phone] Dec, Other chronic pain G89.29 [facility] [address] [facility] [id number] [address] [place] [address] Dec, Anticoagulant long-term use Z79.01 [facility] [address] [facility] [id number] [address] [place] [address] Dec, Chronic prescription opiate use Z79.899 ; Factor V Leiden D68.51 ; Other chronic pain G89.29 and Anticoagulant long-term use Z79.01 [facility] [address] [facility] [id number] [address] [place] [address] Nov, Other chronic pain G89.29 [facility] [address] [id number] [address] [place] [address] Oct, Other chronic pain G89.29 [facility] [address] [id number] [address] [place] [address] Sep, Other chronic pain G89.29 [facility] [address] [id number] [address] [place] [address] Aug, Other chronic pain G89.29 [facility] [address] [id number] [address] [place] [address] Aug, Venous stasis ulcers, left I 83.029 [facility] [address] [facility] [id number] [address] [place] [address] July, Other chronic pain G89.29 [facility] [address] [facility] [id number] [address] [place] [address] July, Venous stasis ulcers, left I 83.029 and Snoring R06.83 [facility] [address] [facility] [id number] [address] [place] [id number] Jun, Idiopathic chronic gout of m ultiple sites without tophus M1A.09X0 [facility] [address] [facility] [id number] [address] [place] [phone] Jun, Acute renal insufficiency N2 8.9 [facility] [address] [facility] [id number] [address] [place] [address] Jun, Other chronic pain G89.29 [facility] [address] [facility] [id number] [address] [place] [address] Jun, Acute renal insufficiency N2 8.[address] [facility] [id number] [place] [id number] Jun, Idiopathic chronic gout of multiple site s without tophus M1A.09X0 ; Essential hypertension I10 and Anticoagulant long-term use Z79.01 [facility] [address] [facility] [id number] [address] [place] [address] Jun, Anticoagulant long-term use Z79.01 and Essential hypertension I10 [place] [address] [place] [address] May, Idiopathic chronic gout of m ultiple sites without tophus M1A.09X0 [place] [address] [place] [address] May, [place] [address] [address] May, Essential hypertension I10 ; Pure hypercholesterolemia E78.00 ; Anticoagulant long-term use Z79.01 and Idiopathic chronic gout of multiple sites without tophus M1A.09X0 [place] [address] [address] May, Other chronic pain G89.29 [place] [address] [address] May, Anticoagulant long-term use Z79.01 [place] [address] [place] [id number] [address] [place] [address] May, Chronic prescription opiate use Z79.899 ; Other chronic pain G89.29 ; Essential hypertension I10 ; Factor V Leiden D68.51 ; Anticoagulant long-term use Z79.01 ; Pure hypercholesterolemia E78.00 ; Venous stasis ulcers, left I83.029 ; Idiopathic chronic gout of multiple sites without tophus M1A.09X0 and Cellulitis of left lower extremity L03.116 [place] [address] [place] [address] Apr, Other chronic pain G89.29 [place] [address] [facility] [id number] [address] [place] [address] Mar, Other chronic pain G89.29 [place] [address] [place] [id number] [address] [place] [address] Mar, Factor V Leiden D68.51 ; Pur e hypercholesterolemia E78.00 and Other chronic pain G89.29 [place] [address] [facility] [id number] [address] [place] [address] Feb, Other chronic pain G89.29 [place] [address] [facility] [id number] [address] [place] [id number] 08 Jan, 2017 Idiopathic chronic gout of m ultiple sites without tophus M1A.09X0 [place] [address] [id number] [address] [place] [phone] 08 Jan, 2017 Other chronic pain G89.29 [place] [address] [facility] [id number] [address] [place] [address] Dec, Anticoagulant long-term use Z79.01 ; Factor V Leiden D68.51 and Other chronic pain G89.29 [place] [address] [facility] [id number] [address] [place] [address] Dec, Other chronic pain G89.29 [place] [address] [facility] [id number] [address] [place] [address] Nov, Other chronic pain G89.29 [place] [address] [facility] [id number] [address] [place] [address] Oct, Other chronic pain G89.29 [place] [address] [facility] [id number] [address] [place] [address] Sep, Anticoagulant long-term use Z79.01 [place] [address] [facility] [id number] [address] [place] [address] Sep, Chronic prescription opiate use Z79.899 ; Anticoagulant long-term use Z79.01 ; Essential hypertension I10 ; Pure hypercholesterolemia E78.00 ; Factor V Leiden D68.51 ; Venous stasis ulcers, left I83.029 ; Other chronic pain G89.29 and Idiopathic chronic gout of multiple sites without tophus M1A.09X0 [place] [address] [facility] [id number] [address] [place] [address] Aug, Anticoagulant long-term use Z79.01 [facility] [address] [facility] [id number] [address] [place] [address] Aug, Other chronic pain G89.29 [facility] [address] [facility] [id number] [address] [place] [address] Aug, Essential hypertension I10 a nd Factor V Leiden D68.[id number] [place] [id number] Aug, Acute right ankle pain M25.571 and Tendo nitis of ankle M77.50 [facility] [address] [facility] [id number] [address] [place] [address] Aug, [facility] [address] [facility] [id number] [address] [place] [address] July, Other chronic pain G89.29 [facility] [address] [facility] [id number] [address] [place] [address] Jun, Other chronic pain G89.29 [facility] [address] [facility] [id number] [address] [place] [address] Jun, Other chronic pain G89.29 [facility] [address] [facility] [id number] [address] [place] [id number] Jun, Anticoagulant long-term use Z79.01 [facility] [address] [facility] [id number] [address] [place] [address] May, Other chronic pain G89.29 [facility] [address] [facility] [id number] [address] [place] [address] May, Anticoagulant long-term use Z79.01 [facility] [address] [facility] [id number] [address] [place] [address] May, Other chronic pain G89.29 [facility] [address] [facility] [id number] [address] [place] [address] Apr, Anticoagulant long-term use Z79.01 [facility] [address] [facility] [id number] [address] [place] [address] Apr, Other chronic pain G89.29 [facility] [address] [facility] [id number] [address] [place] [address] Apr, Anticoagulant long-term use Z79.01 and Pure hypercholesterolemia E78.00 [facility] [address] [facility] [id number] [address] [place] [address] Mar, [facility] [address] [place] [id number] [place] [address] Mar, Anticoagulant long-term use Z79.01 [place] [address] [address] Mar, Other chronic pain G89.29 [place] [address] [address] Feb, Essential hypertension I10 ; Chronic prescription opiate use Z79.899 ; Other chronic pain G89.29 ; Screening Z13.9 ; Factor V Leiden D68.51 ; Anticoagulant long-term use Z79.01 ; Venous stasis dermatitis of left lower extremity I83.12 and Pure hypercholesterolemia E78.00 [place] [address] [place] [id number] [address] [place] [address] 14 Jan, 2016 Anticoagulant long-term use Z79.01 [place] [address] [place] [id number] [address] [place] [address] Jan, Anticoagulant long-term use Z79.01 [place] [address] [facility] [id number] [address] [place] [address] Jan, [place] [address] [address] Jan, [place] [address] [place] [id number] [address] [place] [address] Dec, [place] [address] [address] Nov, [facility] [address] [facility] [id number] [address] [place] [address] Oct, Anticoagulant long-term use Z79.01 [facility] [address] [facility] [id number] [address] [place] [id number] Oct, [facility] [address] [facility] [id number] [address] [place] [address] Oct, Anticoagulant long-term use Z79.01 [facility] [address] [facility] [id number] [address] [place] [address] Sep, [facility] [address] [facility] [id number] [address] [place] [address] Aug, [facility] [address] [facility] [id number] [address] [place] [address] Aug, Chronic prescription opiate use Z79.899 ; Other chronic pain G89.29 ; Essential hypertension I10 and Pure hypercholesterolemia E78.0 [facility] [address] [facility] [id number] [address] [place] [address] July, Hyperlipidemia, group D E78. 3 and Anticoagulant long-term use Z79.01 [facility] [address] [facility] [id number] [address] [place] [id number] July, Hyperlipidemia, group D E78. 3 ; Essential hypertension I10 and Factor V Leiden D68.51 [facility] [address] [facility] [id number] [address] [place] [address] July, Essential hypertension I10 [facility] [address] [facility] [id number] [address] [place] [id number] Jun, Hyperlipidemia, group D E78. 3 [facility] [address] [facility] [id number] [address] [place] [address] Jun, Factor V Leiden D68.51 [facility] [address] [facility] [id number] [address] [place] [address] 29 Mar, 2016 Factor V Leiden D68.51 ; Hyp erlipidemia, group D E78.3 ; Essential hypertension I10 ; Other chronic pain G89.29 and Anticoagulant long-term use Z79.01 [facility] [address] [facility] [id number] [address] [place] [id number] 04 May, 2015 Anticoagulant long-term use Z79.01 [facility] [address] [facility] [id number] [address] [place] [address] 04 May, 2015 Anticoagulant long-term use Z79.01 [facility] [address] [facility] [id number] [address] [place] [address] May, [facility] [address] [facility] [id number] [place] [phone] Apr, [facility] [address] [facility] [id number] [place] [address] Mar, [facility] [address] [address] Mar, [facility] [address] [facility] [id number] [address] [place] [address] Feb, Anticoagulant long-term use Z79.01 [facility] [address] [facility] [id number] [place] [address] 16 Feb, 2015 Chronic prescription opiate use Z79.899 ; Other chronic pain G89.29 ; Hyperlipidemia, group D E78.3 ; Factor V Leiden D68.51 and Anticoagulant long- term use Z79.01 [facility] [address] [facility] [id number] [address] [place] [address] Feb, [facility] [address] [facility] [id number] [place] [phone] Jan, [facility] [address] [place] [id number] [place] [address] 15 Dec, 2014 Hyperlipidemia, unspecified E78.5 [facility] [address] [place] [id number] [place] [address] Dec, Cellulitis of left lower ext remity L03.116 ; Venous stasis ulcers, left I83.029 and Factor V Leiden D68.51 [facility] [address] [place] [id number] [address] [place] [address] Dec, Hyperlipidemia 272.4 and Fac tor V Leiden 289.81 [facility] [address] [place] [id number] [address] [place] [address] Dec, [facility] [address] [place] [id number] [address] [place] [address] Nov, 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 [facility] [address] [address] Nov, [facility] [address] [place] [id number] [place] [address] Nov, [facility] [address] [address] Nov, [facility] [address] [place] [id number] [address] [place] [address] Oct, [facility] [address] [address] Oct, Hyperlipidemia 272.4 ; Chron ic pain disorder 338.4 ; Venous stasis ulcer of left lower extremity 454.0 and 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 [facility] [id number] [place] [address] Sep, [facility] [address] [place] [id number] [address] [place] [address] Sep, [facility] [address] [place] [id number] [place] [address] Sep, Hyperlipidemia 272.4 and Fac tor V Leiden 289.81 [facility] [address] [place] [id number] [address] [place] [address] Aug, [facility] [address] [place] [address] Aug, 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 [facility] [address] [id number] [address] [place] [address] July, [facility] [address] [id number] [address] [place] [address] July, Essential hypertension, fito gn 401.1 ; 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 ; Chronic pain disorder 338.4 ; Hyperlipidemia 272.4 and Venous stasis ulcer of left lower extremity 454.0 [facility] [address] [id number] [address] [place] [address] Jun, [facility] [address] [id number] [address] [place] [phone] Jun, [facility] [address] [place] [id number] [address] [place] [phone] May, [facility] [address] [id number] [address] [place] [phone] May, [facility] [address] [id number] [address] [place] [phone] Apr, [facility] [address] [facility] [id number] [address] [place] [phone] Apr, [facility] [address] [facility] [id number] [address] [place] [address] Apr, [facility] [address] [id number] [address] [place] [phone] Apr, [facility] [address] [id number] [address] [place] [id number] Apr, [facility] [address] [id number] [address] [place] [phone] Apr, [facility] [address] [facility] [id number] [address] [place] [phone] Mar, [facility] [address] [id number] [address] [place] [address], [place] [address] 15 Mar, 2014 [facility] [address] [id number] [address] [place] [address], [place] [address] Mar, [facility] [address] [id number] [address] [place] [address], [place] [address] Mar, [facility] [address] [id number] [address] [place] [address], [place] [address] 17 Feb, 2014 [facility] [address] [id number] [address] [place] [address], [place] [address] 17 Feb, 2014 [facility] [address] [id number] [address] [place] [address], [place] [address] Feb, [facility] [address] [id number] [address] [place] [address], [place] [address] Feb, [facility] [address] [id number] [address] [place] [address], [place] [address] 24 Jan, 2014 [facility] [address] [id number] [address] [place] [address], [place] [address] Jan, [facility] [address] [id number] [address] [place] [address], [place] [id number] Jan, [facility] [address] [id number] [address] [place] [address], [place] [address] Jan, [facility] [address] [id number] [address] [place] [address], [place] [address] Jan, [facility] [address] [id number] [address] [place] [address], [place] [address] Jan, [facility] [address] [id number] [address] [place] [address], [place] [address] Dec, [facility] [address] [id number] [address] [place] [address], [place] [address] Dec, [facility] [address] [id number] [address] [place] [address], [place] [address] Oct, [facility] [address] [id number] [address] [place] [address], [place] [address] Oct, [facility] [address] [id number] [address] [place] [address], [place] [address] Sep, [facility] [address] [id number] [address] [place] [address], [place] [address] Sep, [facility] [address] [id number] [address] [place] [address], [place] [id number] Sep, [facility] [address] [id number] [address] [place] [address], [place] [address] Sep, [facility] [address] [id number] [address] [place] [address], [place] [id number] Aug, [facility] [address] [id number] [address] [place] [address], [place] [address] Aug, [facility] [address] [id number] [address] [place] [address], [place] [id number] July, [facility] [address] [id number] [address] [place] [address], [place] [address] July, [facility] [address] [id number] [address] [place] [address], [place] [address] Jun, [facility] [address] [id number] [address] [place] [address], [place] [id number] Jun, [facility] [address] [id number] [address] [place] [address], [place] [address] May, [facility] [address] [id number] [address] [place] [address], [place] [address] May, [facility] [address] [id number] [address] [place] [address], [place] [id number] Apr, [facility] [address] [id number] [address] [place] [address], [place] [address] Apr, [facility] [address] [id number] [address] [place] [address], [place] [address] Mar, [facility] [address] [id number] [address] [place] [address], [place] [address] Mar, [facility] [address] [id number] [address] [place] [address], [place] [address] Jan, [facility] [address] [id number] [address] [place] [address], [place] [address] Jan, [facility] [address] [id number] [address] [place] [address], [place] [address] Jan, [facility] [address] [id number] [address] [place] [address], [place] [address] Jan, [facility] [address] [id number] [address] [place] [address], [place] [address] Jan, [facility] [address] [id number] [address] [place] [address], [place] [address] Dec, [facility] [address] [id number] [address] [place] [address], [place] [address] Dec, [facility] [address] [id number] [address] [place] [address], [place] [address] Dec, [facility] [address] [id number] [address] [place] [address], [place] [address] Nov, [facility] [address] [id number] [address] [place] [address], [place] [address] Nov, [facility] [address] [id number] [address] [place] [address], [place] [address] Sep, [facility] [address] [id number] [address] [place] [address], [place] [id number] Sep, [facility] [address] [id number] [address] [place] [address], [place] [id number] Aug, [facility] [address] [id number] [address] [place] [address], [place] [address] Aug, [facility] [address] [id number] [place] [id number] July, [facility] [address] [id number] [place] [id number] Jun, [facility] [address] [id number] [place] [id number] Apr, [facility] [address] [id number] [place] [id number] Mar, [facility] [address] [facility] [id number] [place] [address] Mar, [facility] [address] [id number] [place] [id number] Mar, [facility] [address] [facility] [id number] [address] [place] [id number] Mar, [facility] [address] [id number] [place] [id number] Feb, [facility] [address] [facility] [id number] [address] [place] [id number] Feb, [facility] [address] [id number] [place] [id number] Feb, [facility] [address] [facility] [id number] [address] [place] [id number] Feb, [facility] [address] [id number] [place] [id number] Oct, [facility] [address] [id number] [place] [id number] Oct, [facility] [address] [id number] [place] [id number] July, [facility] [address] [id number] [place] [id number] July, [facility] [address] [id number] [place] [id number] Jun, [facility] [address] [id number] [place] [id number] Jun, [facility] [address] [id number] [place] [id number] Jun, [facility] [address] [facility] [id number] [place] [id number] Mar, [facility] [address] [facility] [id number] [place] [id number] Mar, [facility] [address] [id number] [address] [place] [id number] Feb, [facility] [address] [id number] [address] [place] [id number] Feb, [facility] [address] [id number] [address] [place] [id number] Jan, [facility] [address] [facility] [id number] [address] [place] [id number] Jan, [facility] [address] [facility] [id number] [address] [place] [id number] Jan, [facility] [address] [facility] [id number] [address] [place] [id number] Jan, [facility] [address] [id number] [address] [place] [id number] Jan, [facility] [address] [facility] [id number] [address] [place] [id number] Aug, [facility] [address] [facility] [id number] [address] [place] [id number] Apr, IMMUNIZATIONS No Known Immunizations SOCIAL HISTORY Never Assessed REASON FOR VISIT Controlled Med Refill- Due 01/03/18 PLAN OF CARE VITAL SIGNS MEDICATIONS Medication Instructions Dosage Frequency Start Date End Date Duration S reaganus Hydrocodone-Acetaminophen 10-325 MG Orally 4 times a day as needed for pain 1 tablet Dec, 28 days Active RESULTS No Results PROCEDURES [...]
--- OUTSIDE RECORDS SUMMARY | 2019-11-08 13:08 | XMS REPORT ---
Author Author Zana EDDY Organization [facility] Address [address] [place] [address] Care Team Providers Care Financial Compliance Examiner Name Role Phone SPENCER EDDY Unavailable PROBLEMS Type Condition ICD9-CM Code [id number] Code Onset Dates Condition S tatus SNOMED Code Problem Factor V Leiden D68.51 Active 3070 59158 Problem Post-phlebitic syndrome I87.009 Active 54361945 Problem Anticoagulant long-term use Z79.01 Ac tive 851739239 Problem Essential hypertension I10 Active 67588106 Problem Other chronic pain G89.29 Active 8 5392099 Problem Venous stasis ulcers, left I83.029 Act ozzy 511481333 Problem 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 25859712 Problem Congenital single kidney Q60.0 Activ e 17924282 Problem Venous anomaly Q27.9 Active 67793 4003 Problem Pure hypercholesterolemia E78.00 Acti ve 618689330 Problem Chronic prescription opiate use Z79.899 Active 396485294 ALLERGIES No Information ENCOUNTERS Encounter Location Date Diagnosis [facility] [address] [facility] [id number] [address] [place] [address] Dec, [facility] [address] [facility] [facility] [id number] [address] [place] [address] 12 Nov, 2017 Other chronic pain G89.29 [facility] [address] [facility] [facility] [id number] [address] [place] [address] Oct, Other chronic pain G89.29 [facility] [address] [facility] [id number] [address] [place] [address] Sep, Other chronic pain G89.29 [facility] [address] [facility] [facility] [id number] [address] [place] [address] Aug, Other chronic pain G89.29 [facility] [address] [facility] [facility] [id number] [address] [place] [address] Aug, Venous stasis ulcers, left I 83.029 [facility] [address] [facility] [id number] [address] [place] [address] July, Other chronic pain G89.29 [facility] [address] [facility] [id number] [address] [place] [address] July, Venous stasis ulcers, left I 83.029 and Snoring R06.83 [facility] [address] [facility] [id number] [address] [place] [address] Jun, Idiopathic chronic gout of m ultiple sites without tophus M1A.09X0 [place] [address] [facility] [id number] [address] [place] [address] Jun, Acute renal insufficiency N2 8.9 [facility] [address] [facility] [id number] [address] [place] [address] Jun, Other chronic pain G89.29 [facility] [address] [facility] [id number] [address] [place] [address] Jun, Acute renal insufficiency N2 8.[address] [facility] [id number] [place] [id number] Jun, Idiopathic chronic gout of multiple site s without tophus M1A.09X0 ; Essential hypertension I10 and Anticoagulant long-term use Z79.01 [facility] [address] [facility] [facility] [id number] [address] [place] [address] Jun, Anticoagulant long-term use Z79.01 and Essential hypertension I10 [facility] [address] [facility] [id number] [address] [place] [address] May, Idiopathic chronic gout of m ultiple sites without tophus M1A.09X0 [place] [address] [facility] [id number] [address] [place] [address] May, [facility] [address] [id number] [address] [place] [address] May, Essential hypertension I10 ; Pure hypercholesterolemia E78.00 ; Anticoagulant long-term use Z79.01 and Idiopathic chronic gout of multiple sites without tophus M1A.09X0 [place] [address] [facility] [id number] [address] [place] [address] May, Other chronic pain G89.29 [facility] [address] [id number] [address] [place] [address] May, Anticoagulant long-term use Z79.01 [place] [address] [facility] [id number] [address] [place] [address] May, Chronic prescription opiate use Z79.899 ; Other chronic pain G89.29 ; Essential hypertension I10 ; Factor V Leiden D68.51 ; Anticoagulant long-term use Z79.01 ; Pure hypercholesterolemia E78.00 ; Venous stasis ulcers, left I83.029 ; Idiopathic chronic gout of multiple sites without tophus M1A.09X0 and Cellulitis of left lower extremity L03.116 [place] [address] [facility] [id number] [address] [place] [address] Apr, Other chronic pain G89.29 [place] [address] [facility] [id number] [address] [place] [address] Mar, Other chronic pain G89.29 [place] [address] [facility] [id number] [address] [place] [address] Mar, Factor V Leiden D68.51 ; Pur e hypercholesterolemia E78.00 and Other chronic pain G89.29 [place] [address] [facility] [id number] [address] [place] [address] Feb, Other chronic pain G89.29 [place] [address] [facility] [id number] [address] [place] [address] Jan, Idiopathic chronic gout of m ultiple sites without tophus M1A.09X0 [place] [address] [facility] [id number] [address] [place] [address] Jan, Other chronic pain G89.29 [facility] [address] [facility] [facility] [id number] [address] [place] [address] Dec, Anticoagulant long-term use Z79.01 ; Factor V Leiden D68.51 and Other chronic pain G89.29 [facility] [address] [facility] [id number] [address] [place] [address] Dec, Other chronic pain G89.29 [facility] [address] [facility] [id number] [address] [place] [address] 13 Nov, 2016 Other chronic pain G89.29 [place] [address] [facility] [id number] [address] [place] [address] Oct, Other chronic pain G89.29 [place] [address] [facility] [id number] [address] [place] [address] Sep, Anticoagulant long-term use Z79.01 [place] [id number] [facility] [id number] [address] [place] [address] Sep, Chronic prescription opiate use Z79.899 ; Anticoagulant long-term use Z79.01 ; Essential hypertension I10 ; Pure hypercholesterolemia E78.00 ; Factor V Leiden D68.51 ; Venous stasis ulcers, left I83.029 ; Other chronic pain G89.29 and Idiopathic chronic gout of multiple sites without tophus M1A.09X0 [place] [address] [facility] [id number] [address] [place] [address] Aug, Anticoagulant long-term use Z79.01 [place] [address] [facility] [id number] [address] [place] [address] Aug, Other chronic pain G89.29 [facility] [address] [facility] [facility] [id number] [address] [place] [address] Aug, Essential hypertension I10 a nd Factor V Leiden D68.[id number] [place] [id number] 15 Aug, 2016 Acute right ankle pain M25.571 and Tendo nitis of ankle M77.50 [facility] [address] [facility] [id number] [address] [place] [address] Aug, [facility] [address] [id number] [address] [place] [address] July, Other chronic pain G89.29 [facility] [address] [id number] [address] [place] [address] Jun, Other chronic pain G89.29 [facility] [address] [id number] [address] [place] [address] Jun, Other chronic pain G89.29 [facility] [address] [facility] [id number] [address] [place] [address] Jun, Anticoagulant long-term use Z79.01 [facility] [address] [facility] [facility] [id number] [address] [place] [address] May, Other chronic pain G89.29 [facility] [address] [facility] [id number] [address] [place] [address] May, Anticoagulant long-term use Z79.01 [place] [address] [facility] [id number] [address] [place] [address] May, Other chronic pain G89.29 [facility] [address] [facility] [facility] [id number] [address] [place] [address] Apr, Anticoagulant long-term use Z79.01 [facility] [address] [id number] [address] [place] [address] Apr, Other chronic pain G89.29 [facility] [address] [facility] [id number] [address] [place] [address] Apr, Anticoagulant long-term use Z79.01 and Pure hypercholesterolemia E78.00 [facility] [address] [facility] [facility] [id number] [address] [place] [address] Mar, [facility] [address] [facility] [facility] [id number] [address] [place] [address] Mar, Anticoagulant long-term use Z79.01 [facility] [address] [facility] [facility] [id number] [address] [place] [address] Mar, Other chronic pain G89.29 [facility] [address] [place] [id number] [address] [place] [address] Feb, Essential hypertension I10 ; Chronic prescription opiate use Z79.899 ; Other chronic pain G89.29 ; Screening Z13.9 ; Factor V Leiden D68.51 ; Anticoagulant long-term use Z79.01 ; Venous stasis dermatitis of left lower extremity I83.12 and Pure hypercholesterolemia E78.00 [facility] [address] [facility] [id number] [address] [place] [address] 14 Jan, 2016 Anticoagulant long-term use Z79.01 [place] [address] [place] [id number] [address] [place] [address] Jan, Anticoagulant long-term use Z79.01 [facility] [address] [facility] [id number] [address] [place] [address] Jan, [place] [address] [place] [id number] [address] [place] [address] Jan, [facility] [address] [facility] [facility] [id number] [address] [place] [address] Dec, [facility] [address] [facility] [facility] [id number] [address] [place] [address] Nov, [facility] [address] [facility] [facility] [id number] [address] [place] [address] Oct, Anticoagulant long-term use Z79.01 [facility] [address] [facility] [id number] [address] [place] [address] Oct, [facility] [address] [facility] [facility] [id number] [address] [place] [address] Oct, Anticoagulant long-term use Z79.01 [facility] [address] [facility] [facility] [id number] [address] [place] [address] Sep, [facility] [address] [facility] [facility] [id number] [address] [place] [address] Aug, [facility] [address] [facility] [facility] [id number] [address] [place] [address] Aug, Chronic prescription opiate use Z79.899 ; Other chronic pain G89.29 ; Essential hypertension I10 and Pure hypercholesterolemia E78.0 [facility] [address] [facility] [facility] [id number] [address] [place] [address] July, Hyperlipidemia, group D E78. 3 and Anticoagulant long-term use Z79.01 [facility] [address] [facility] [id number] [address] [place] [address] July, Hyperlipidemia, group D E78. 3 ; Essential hypertension I10 and Factor V Leiden D68.51 [place] [id number] [facility] [id number] [address] [place] [address] July, Essential hypertension I10 [place] [address] [facility] [id number] [address] [place] [address] Jun, Hyperlipidemia, group D E78. 3 [facility] [address] [facility] [facility] [id number] [address] [place] [address] Jun, Factor V Leiden D68.51 [facility] [address] [facility] [facility] [id number] [address] [place] [address] May, Factor V Leiden D68.51 ; Hyp erlipidemia, group D E78.3 ; Essential hypertension I10 ; Other chronic pain G89.29 and Anticoagulant long-term use Z79.01 [facility] [address] [facility] [facility] [id number] [address] [place] [address] May, Anticoagulant long-term use Z79.01 [facility] [address] [facility] [facility] [id number] [address] [place] [address] May, Anticoagulant long-term use Z79.01 [facility] [address] [address] May, [facility] [address] [address] Apr, [facility] [address] [address] Mar, [facility] [address] [address] Mar, [facility] [address] [address] Feb, Anticoagulant long-term use Z79.01 [place] [address] [address] 16 Feb, 2015 Chronic prescription opiate use Z79.899 ; Other chronic pain G89.29 ; Hyperlipidemia, group D E78.3 ; Factor V Leiden D68.51 and Anticoagulant long- term use Z79.01 [place] [address] [address] Feb, [place] [address] [address] Jan, [place] [address] [address] Dec, Hyperlipidemia, unspecified E78.5 [place] [address] [address] Dec, Cellulitis of left lower ext remity L03.116 ; Venous stasis ulcers, left I83.029 and Factor V Leiden D68.51 [place] [address] [address] 09 Dec, 2014 Hyperlipidemia 272.4 and Fac tor V Leiden 289.81 [place] [address] [address] Dec, [place] [address] [facility] [id number] [address] [place] [address] Nov, 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 [facility] [address] [facility] [id number] [address] [place] [address] Nov, [facility] [address] [facility] [facility] [id number] [address] [place] [address] Nov, [facility] [address] [facility] [facility] [id number] [address] [place] [address] Nov, [facility] [address] [facility] [facility] [id number] [address] [place] [address] Oct, [facility] [address] [facility] [facility] [id number] [address] [place] [address] Oct, Hyperlipidemia 272.4 ; Chron ic pain disorder 338.4 ; Venous stasis ulcer of left lower extremity 454.0 and 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 [facility] [id number] [place] [address] Sep, [facility] [address] [facility] [id number] [address] [place] [address] Sep, [facility] [address] [place] [id number] [address] [place] [address] Sep, Hyperlipidemia 272.4 and Fac tor V Leiden 289.81 [facility] [id number] [place] [address] Aug, [facility] [address] [facility] [facility] [id number] [address] [place] [address] Aug, 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 [facility] [address] [place] [id number] [address] [place] [address] July, [facility] [address] [facility] [facility] [id number] [address] [place] [address] July, Essential hypertension, fito gn 401.1 ; 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 ; Chronic pain disorder 338.4 ; Hyperlipidemia 272.4 and Venous stasis ulcer of left lower extremity 454.0 [facility] [address] [id number] [address] [place] [address], [place] [address] 14 Jun, 2014 [facility] [address] [id number] [address] [place] [address] 13 Jun, 2014 [facility] [address] [id number] [address] [place] [address], [place] [address] May, [facility] [address] [id number] [address] [place] [address] May, [facility] [address] [id number] [address] [place] [address], [place] [address] Apr, [facility] [address] [id number] [address] [place] [address] Apr, [facility] [address] [id number] [address] [place] [address] Apr, [facility] [address] [id number] [address] [place] [address], [place] [address] 18 Apr, 2014 [facility] [address] [id number] [address] [place] [address], [place] [address] Apr, [facility] [address] [id number] [address] [place] [address] Apr, [facility] [address] [id number] [address] [place] [address] Mar, [facility] [address] [id number] [address] [place] [address] Mar, [facility] [address] [id number] [address] [place] [address] Mar, [facility] [address] [id number] [address] [place] [address] Mar, [facility] [address] [id number] [address] [place] [address] Feb, [facility] [address] [id number] [address] [place] [address], [place] [address] Feb, [facility] [address] [id number] [address] [place] [address], [place] [address] Feb, [facility] [address] [id number] [address] [place] [address], [place] [address] Feb, [facility] [address] [id number] [address] [place] [address], [place] [address] Jan, [facility] [address] [id number] [address] [place] [address], [place] [address] Jan, [facility] [address] [id number] [address] [place] [address], [place] [address] Jan, [facility] [address] [id number] [address] [place] [address], [place] [address] Jan, [facility] [address] [id number] [address] [place] [address], [place] [address] Jan, [facility] [address] [id number] [address] [place] [address], [place] [address] Jan, [facility] [address] [id number] [address] [place] [address], [place] [address] Dec, [facility] [address] [id number] [address] [place] [address], [place] [address] Dec, [facility] [address] [id number] [address] [place] [address], [place] [address] Oct, [facility] [address] [id number] [address] [place] [address], [place] [address] Oct, [facility] [address] [id number] [address] [place] [address], [place] [address] Sep, [facility] [address] [id number] [address] [place] [address], [place] [address] Sep, [facility] [address] [id number] [address] [place] [address], [place] [address] Sep, [facility] [address] [id number] [address] [place] [address], [place] [address] Sep, [facility] [address] [id number] [address] [place] [address], [place] [address] Aug, [facility] [address] [id number] [address] [place] [address], [place] [address] Aug, [facility] [address] [id number] [address] [place] [address], [place] [address] July, [facility] [address] [id number] [address] [place] [address], [place] [address] July, [facility] [address] [id number] [address] [place] [address], [place] [address] Jun, [facility] [address] [id number] [address] [place] [address], [place] [address] Jun, [facility] [address] [id number] [address] [place] [address], [place] [address] May, [facility] [address] [id number] [address] [place] [address], [place] [address] May, [facility] [address] [id number] [address] [place] [address], [place] [address] Apr, [facility] [address] [id number] [address] [place] [address], [place] [address] Apr, [facility] [address] [id number] [address] [place] [address], [place] [address] Mar, [facility] [address] [id number] [address] [place] [address], [place] [address] Mar, [facility] [address] [id number] [address] [place] [address], [place] [address] Jan, [facility] [address] [id number] [address] [place] [address], [place] [address] Jan, [facility] [address] [id number] [address] [place] [address], [place] [address] Jan, [facility] [address] [id number] [address] [place] [address], [place] [address] Jan, [facility] [address] [id number] [address] [place] [address], [place] [address] Jan, [facility] [address] [id number] [address] [place] [address], [place] [address] Dec, [facility] [address] [id number] [address] [place] [address], [place] [address] Dec, [facility] [address] [id number] [address] [place] [address], [place] [address] Dec, [facility] [address] [id number] [address] [place] [address], [place] [address] Nov, [facility] [address] [id number] [address] [place] [address], [place] [address] Nov, [facility] [address] [id number] [address] [place] [address], [place] [address] Sep, [facility] [address] [id number] [address] [place] [address], [place] [address] Sep, [facility] [address] [id number] [address] [place] [address] Aug, [facility] [address] [id number] [address] [place] [address] Aug, [facility] [address] [id number] [place] [id number] July, [facility] [place] [address] [id number] [place] [id number] Jun, [facility] [place] [address] [id number] [place] [id number] Apr, [facility] [place] [address] [id number] [place] [id number] Mar, [facility] [address] [facility] [id number] [address] [place] [address] Mar, [facility] [place] [address] [id number] [place] [id number] Mar, [facility] [address] [facility] [id number] [address] [place] [id number] Mar, [facility] [place] [address] [id number] [place] [id number] Feb, [facility] [address] [facility] [id number] [address] [place] [id number] Feb, [facility] [place] [address] [id number] [place] [id number] Feb, [facility] [address] [facility] [id number] [address] [place] [address] Feb, [facility] [place] [address] [id number] [place] [id number] Oct, [facility] [place] [address] [id number] [place] [id number] Oct, [facility] [place] [address] [id number] [place] [id number] July, [facility] [place] [address] [id number] [place] [id number] July, [facility] [place] [address] [id number] [place] [id number] Jun, [facility] [place] [address] [id number] [place] [id number] Jun, [facility] [place] [address] [id number] [place] [id number] Jun, [facility] [place] [address] [id number] [place] [id number] Mar, [facility] [place] [address] [id number] [place] [id number] Mar, [facility] [address] [facility] [id number] [address] [place] [address] Feb, [facility] [address] [facility] [id number] [address] [place] [id number] Feb, [facility] [address] [id number] [address] [place] [id number] Jan, [facility] [address] [id number] [address] [place] [id number] Jan, [facility] [address] [id number] [address] [place] [id number] Jan, [facility] [address] [id number] [address] [place] [phone] Jan, [facility] [address] [facility] [id number] [address] [place] [phone] Jan, [facility] [address] [facility] [id number] [address] [place] [phone] Aug, [facility] [address] [facility] [id number] [address] [place] [id number] Apr, IMMUNIZATIONS No Known Immunizations SOCIAL HISTORY Never Assessed REASON FOR VISIT Controlled Medication Refill PLAN OF CARE VITAL SIGNS MEDICATIONS Medication Instructions Dosage Frequency Start Date End Date Duration S sahil Hydrocodone-Acetaminophen 10-325 MG Orally 4 times a day as needed for pain 1 tablet Nov, 28 days Active RESULTS No Results PROCEDURES [...]
--- OUTSIDE RECORDS SUMMARY | 2019-11-08 13:08 | XMS REPORT ---
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 Active 74971679 Problem Anticoagulant long-term use Z79.01 Ac tive 531653582 Problem Essential hypertension I10 Active 94508769 Problem Other chronic pain G89.29 Active 8 7797676 Problem Venous stasis ulcers, left I83.029 Act ozzy 839126565 Problem 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 48828272 Problem Congenital single kidney Q60.0 Activ e 35706069 Problem Venous anomaly Q27.9 Active 18978 4003 Problem Pure hypercholesterolemia E78.00 Acti ve 255625100 Problem Chronic prescription opiate use Z79.899 Active 157763920 ALLERGIES No Information ENCOUNTERS Encounter Location Date Diagnosis [place] [id number] [facility] [id number] [address] [place] [address] Dec, Other chronic pain G89.29 [facility] [address] [facility] [id number] [address] [place] [address] Dec, Anticoagulant long-term use Z79.01 [facility] [address] [facility] [id number] [address] [place] [address] Dec, Chronic prescription opiate use Z79.899 ; Factor V Leiden D68.51 ; Other chronic pain G89.29 and Anticoagulant long-term use Z79.01 [place] [address] [facility] [id number] [address] [place] [address] Nov, Other chronic pain G89.29 [facility] [address] [id number] [address] [place] [address] Oct, Other chronic pain G89.29 [facility] [address] [id number] [address] [place] [address] Sep, Other chronic pain G89.29 [facility] [address] [facility] [id number] [address] [place] [address] Aug, Other chronic pain G89.29 [facility] [address] [id number] [address] [place] [address] Aug, Venous stasis ulcers, left I 83.029 [facility] [address] [facility] [id number] [address] [place] [address] July, Other chronic pain G89.29 [facility] [address] [facility] [id number] [address] [place] [address] July, Venous stasis ulcers, left I 83.029 and Snoring R06.83 [facility] [address] [facility] [id number] [address] [place] [address] Jun, Idiopathic chronic gout of m ultiple sites without tophus M1A.09X0 [facility] [address] [facility] [id number] [address] [place] [address] Jun, Acute renal insufficiency N2 8.9 [facility] [address] [facility] [id number] [address] [place] [address] Jun, Other chronic pain G89.29 [facility] [address] [facility] [id number] [address] [place] [address] Jun, Acute renal insufficiency N2 8.9 [facility] [id number] [place] [id number] Jun, Idiopathic chronic gout of multiple site s without tophus M1A.09X0 ; Essential hypertension I10 and Anticoagulant long-term use Z79.01 [facility] [address] [facility] [id number] [address] [place] [address] Jun, Anticoagulant long-term use Z79.01 and Essential hypertension I10 [place] [address] [address] May, Idiopathic chronic gout of m ultiple sites without tophus M1A.09X0 [place] [address] [address] May, [place] [address] [address] May, Essential hypertension I10 ; Pure hypercholesterolemia E78.00 ; Anticoagulant long-term use Z79.01 and Idiopathic chronic gout of multiple sites without tophus M1A.09X0 [place] [address] [address] May, Other chronic pain G89.29 [place] [address] [address] May, Anticoagulant long-term use Z79.01 [place] [address] [address] May, Chronic prescription opiate use Z79.899 ; Other chronic pain G89.29 ; Essential hypertension I10 ; Factor V Leiden D68.51 ; Anticoagulant long-term use Z79.01 ; Pure hypercholesterolemia E78.00 ; Venous stasis ulcers, left I83.029 ; Idiopathic chronic gout of multiple sites without tophus M1A.09X0 and Cellulitis of left lower extremity L03.116 [place] [address] [facility] [id number] [address] [place] [address] Apr, Other chronic pain G89.29 [place] [address] [place] [id number] [address] [place] [address] Mar, Other chronic pain G89.29 [place] [address] [facility] [id number] [address] [place] [address] Mar, Factor V Leiden D68.51 ; Pur e hypercholesterolemia E78.00 and Other chronic pain G89.29 [place] [address] [facility] [id number] [address] [place] [address] Feb, Other chronic pain G89.29 [place] [address] [facility] [id number] [address] [place] [address] 08 Jan, 2017 Idiopathic chronic gout of m ultiple sites without tophus M1A.09X0 [place] [address] [id number] [address] [place] [address] Jan, Other chronic pain G89.29 [place] [address] [facility] [id number] [address] [place] [address] Dec, Anticoagulant long-term use Z79.01 ; Factor V Leiden D68.51 and Other chronic pain G89.29 [place] [address] [facility] [id number] [address] [place] [address] Dec, Other chronic pain G89.29 [place] [address] [facility] [id number] [address] [place] [address] Nov, Other chronic pain G89.29 [place] [address] [facility] [id number] [address] [place] [address] Oct, Other chronic pain G89.29 [place] [address] [facility] [id number] [address] [place] [address] Sep, Anticoagulant long-term use Z79.01 [place] [address] [facility] [id number] [address] [place] [address] Sep, Chronic prescription opiate use Z79.899 ; Anticoagulant long-term use Z79.01 ; Essential hypertension I10 ; Pure hypercholesterolemia E78.00 ; Factor V Leiden D68.51 ; Venous stasis ulcers, left I83.029 ; Other chronic pain G89.29 and Idiopathic chronic gout of multiple sites without tophus M1A.09X0 [place] [address] [facility] [id number] [address] [place] [address] Aug, Anticoagulant long-term use Z79.01 [facility] [address] [facility] [id number] [address] [place] [address] Aug, Other chronic pain G89.29 [facility] [address] [facility] [id number] [address] [place] [address] Aug, Essential hypertension I10 a nd Factor V Leiden D68.[id number] [place] [address] [id number] 15 Aug, 2016 Acute right ankle pain M25.571 and Tendo nitis of ankle M77.50 [facility] [address] [facility] [id number] [address] [place] [address] Aug, [facility] [address] [facility] [id number] [address] [place] [address] July, Other chronic pain G89.29 [facility] [address] [facility] [id number] [address] [place] [address] Jun, Other chronic pain G89.29 [facility] [address] [facility] [id number] [address] [place] [address] Jun, Other chronic pain G89.29 [facility] [address] [facility] [id number] [address] [place] [address] Jun, Anticoagulant long-term use Z79.01 [facility] [address] [facility] [id number] [address] [place] [address] May, Other chronic pain G89.29 [facility] [address] [facility] [id number] [address] [place] [address] May, Anticoagulant long-term use Z79.01 [facility] [address] [facility] [id number] [address] [place] [address] May, Other chronic pain G89.29 [facility] [address] [facility] [id number] [address] [place] [address] Apr, Anticoagulant long-term use Z79.01 [facility] [address] [facility] [id number] [address] [place] [address] Apr, Other chronic pain G89.29 [facility] [address] [facility] [id number] [address] [place] [address] Apr, Anticoagulant long-term use Z79.01 and Pure hypercholesterolemia E78.00 [place] [address] [address] Mar, [place] [address] [address] Mar, Anticoagulant long-term use Z79.01 [place] [address] [address] Mar, Other chronic pain G89.29 [place] [address] [address] Feb, Essential hypertension I10 ; Chronic prescription opiate use Z79.899 ; Other chronic pain G89.29 ; Screening Z13.9 ; Factor V Leiden D68.51 ; Anticoagulant long-term use Z79.01 ; Venous stasis dermatitis of left lower extremity I83.12 and Pure hypercholesterolemia E78.00 [place] [address] [place] [id number] [address] [place] [address] 14 Jan, 2016 Anticoagulant long-term use Z79.01 [place] [address] [place] [id number] [address] [place] [address] Jan, Anticoagulant long-term use Z79.01 [place] [id number] [place] [address] Jan, [place] [address] [address] Jan, [place] [address] [place] [id number] [address] [place] [address] 12 Dec, 2015 [place] [address] [address] Nov, [facility] [address] [facility] [id number] [address] [place] [address] Oct, Anticoagulant long-term use Z79.01 [facility] [address] [facility] [id number] [address] [place] [address] Oct, [facility] [address] [facility] [id number] [address] [place] [address] Oct, Anticoagulant long-term use Z79.01 [facility] [address] [facility] [id number] [address] [place] [address] Sep, [facility] [address] [facility] [id number] [address] [place] [address] Aug, [facility] [address] [facility] [id number] [address] [place] [address] Aug, Chronic prescription opiate use Z79.899 ; Other chronic pain G89.29 ; Essential hypertension I10 and Pure hypercholesterolemia E78.0 [facility] [address] [facility] [id number] [address] [place] [address] July, Hyperlipidemia, group D E78. 3 and Anticoagulant long-term use Z79.01 [facility] [address] [facility] [id number] [address] [place] [address] July, Hyperlipidemia, group D E78. 3 ; Essential hypertension I10 and Factor V Leiden D68.51 [facility] [address] [facility] [id number] [address] [place] [address] July, Essential hypertension I10 [facility] [address] [facility] [id number] [address] [place] [address] Jun, Hyperlipidemia, group D E78. 3 [facility] [address] [facility] [id number] [address] [place] [address] Jun, Factor V Leiden D68.51 [facility] [address] [facility] [id number] [address] [place] [address] May, Factor V Leiden D68.51 ; Hyp erlipidemia, group D E78.3 ; Essential hypertension I10 ; Other chronic pain G89.29 and Anticoagulant long-term use Z79.01 [facility] [address] [facility] [id number] [address] [place] [address] 04 May, 2015 Anticoagulant long-term use Z79.01 [facility] [address] [facility] [id number] [address] [place] [address] 04 May, 2015 Anticoagulant long-term use Z79.01 [facility] [address] [facility] [id number] [address] [place] [address] May, [facility] [address] [facility] [id number] [place] [address] Apr, [facility] [address] [facility] [id number] [address] [place] [address] Mar, [facility] [address] [place] [id number] [address] [place] [address] Mar, [facility] [address] [facility] [id number] [address] [place] [address] Feb, Anticoagulant long-term use Z79.01 [facility] [address] [facility] [id number] [address] [place] [address] 16 Feb, 2015 Chronic prescription opiate use Z79.899 ; Other chronic pain G89.29 ; Hyperlipidemia, group D E78.3 ; Factor V Leiden D68.51 and Anticoagulant long- term use Z79.01 [facility] [address] [facility] [id number] [address] [place] [address] 04 Feb, 2015 [facility] [address] [facility] [id number] [address] [place] [address] Jan, [facility] [address] [facility] [id number] [address] [place] [address] 15 Dec, 2014 Hyperlipidemia, unspecified E78.5 [facility] [address] [facility] [id number] [address] [place] [address] Dec, Cellulitis of left lower ext remity L03.116 ; Venous stasis ulcers, left I83.029 and Factor V Leiden D68.51 [facility] [address] [facility] [id number] [address] [place] [address] Dec, Hyperlipidemia 272.4 and Fac tor V Leiden 289.81 [facility] [id number] [place] [address] Dec, [facility] [address] [facility] [id number] [address] [place] [address] Nov, 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 [facility] [address] [address] Nov, [facility] [address] [address] Nov, [facility] [address] [address] Nov, [facility] [address] [place] [id number] [address] [place] [address] Oct, [facility] [address] [address] Oct, Hyperlipidemia 272.4 ; Chron ic pain disorder 338.4 ; Venous stasis ulcer of left lower extremity 454.0 and 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 [facility] [address] [place] [id number] [address] [place] [address] Sep, [facility] [address] [place] [id number] [address] [place] [address] Sep, [facility] [address] [address] Sep, Hyperlipidemia 272.4 and Fac tor V Leiden 289.81 [facility] [address] [address] Aug, [facility] [address] [place] [address] Aug, Factor V Leiden 289.81 [facility] [address] [facility] [id number] [address] [place] [address] July, [facility] [address] [facility] [id number] [address] [place] [address] July, Essential hypertension, fito gn 401.1 ; Factor V Leiden 289.81 ; Chronic pain disorder 338.4 ; Hyperlipidemia 272.4 and Venous stasis ulcer of left lower extremity 454.0 [facility] [address] [id number] [address] [place] [address] Jun, [facility] [address] [id number] [address] [place] [address] Jun, [facility] [address] [place] [id number] [address] [place] [address] May, [facility] [address] [facility] [id number] [address] [place] [address] May, [facility] [address] [facility] [id number] [address] [place] [address] Apr, [facility] [address] [facility] [id number] [address] [place] [address] Apr, [facility] [address] [facility] [id number] [address] [place] [address] Apr, [facility] [address] [id number] [address] [place] [address] Apr, [facility] [address] [id number] [address] [place] [address] Apr, [facility] [address] [facility] [id number] [address] [place] [address] Apr, [facility] [address] [facility] [id number] [address] [place] [address] Mar, [facility] [address] [id number] [address] [place] [address], [place] [address] 15 Mar, 2014 [facility] [address] [id number] [address] [place] [address], [place] [address] Mar, [facility] [address] [id number] [address] [place] [address], [place] [address] Mar, [facility] [address] [id number] [address] [place] [address], [place] [address] Feb, [facility] [address] [id number] [address] [place] [address], [place] [address] 17 Feb, 2014 [facility] [address] [id number] [address] [place] [address], [place] [address] Feb, [facility] [address] [id number] [address] [place] [address], [place] [address] Feb, [facility] [address] [id number] [address] [place] [address], [place] [address] Jan, [facility] [address] [id number] [address] [place] [address], [place] [address] Jan, [facility] [address] [id number] [address] [place] [address], [place] [address] Jan, [facility] [address] [id number] [address] [place] [address], [place] [address] Jan, [facility] [address] [id number] [address] [place] [address], [place] [address] Jan, [facility] [address] [id number] [address] [place] [address], [place] [address] Jan, [facility] [address] [id number] [address] [place] [address], [place] [address] Dec, [facility] [address] [id number] [address] [place] [address], [place] [address] Dec, [facility] [address] [id number] [address] [place] [address], [place] [address] Oct, [facility] [address] [id number] [address] [place] [address], [place] [address] Oct, [facility] [address] [id number] [address] [place] [address], [place] [address] Sep, [facility] [address] [id number] [address] [place] [address], [place] [address] Sep, [facility] [address] [id number] [address] [place] [address], [place] [address] Sep, [facility] [address] [id number] [address] [place] [address], [place] [address] Sep, [facility] [address] [id number] [address] [place] [address], [place] [address] Aug, [facility] [address] [id number] [address] [place] [address], [place] [address] Aug, [facility] [address] [id number] [address] [place] [address], [place] [address] July, [facility] [address] [id number] [address] [place] [address], [place] [address] July, [facility] [address] [id number] [address] [place] [address], [place] [address] Jun, [facility] [address] [id number] [address] [place] [address], [place] [address] Jun, [facility] [address] [id number] [address] [place] [address], [place] [address] May, [facility] [address] [id number] [address] [place] [address], [place] [address] May, [facility] [address] [id number] [address] [place] [address], [place] [address] Apr, [facility] [address] [id number] [address] [place] [address], [place] [address] Apr, [facility] [address] [id number] [address] [place] [address], [place] [address] Mar, [facility] [address] [id number] [address] [place] [address], [place] [address] Mar, [facility] [address] [id number] [address] [place] [address], [place] [address] Jan, [facility] [address] [id number] [address] [place] [address], [place] [address] Jan, [facility] [address] [id number] [address] [place] [address], [place] [address] Jan, [facility] [address] [id number] [address] [place] [address], [place] [address] Jan, [facility] [address] [id number] [address] [place] [address], [place] [address] Jan, [facility] [address] [id number] [address] [place] [address], [place] [address] Dec, [facility] [address] [id number] [address] [place] [address], [place] [address] Dec, [facility] [address] [id number] [address] [place] [address], [place] [address] Dec, [facility] [address] [id number] [address] [place] [address], [place] [address] Nov, [facility] [address] [id number] [address] [place] [address], [place] [address] Nov, [facility] [address] [id number] [address] [place] [address], [place] [address] Sep, [facility] [address] [id number] [address] [place] [address], [place] [address] Sep, [facility] [address] [id number] [address] [place] [address], [place] [address] Aug, [facility] [address] [id number] [address] [place] [address], [place] [address] Aug, [facility] [place] [address] [id number] [place] [id number] July, [facility] [place] [address] [id number] [place] [id number] Jun, [facility] [place] [address] [id number] [place] [id number] Apr, [facility] [place] [address] [id number] [place] [id number] Mar, [facility] [address] [facility] [id number] [address] [place] [address] Mar, [facility] [address] [id number] [place] [id number] Mar, [facility] [address] [facility] [id number] [address] [place] [address] Mar, [facility] [place] [address] [id number] [place] [id number] Feb, [facility] [address] [facility] [id number] [address] [place] [address] Feb, [facility] [place] [address] [id number] [place] [id number] Feb, [facility] [address] [facility] [id number] [address] [place] [address] Feb, [facility] [place] [address] [id number] [place] [id number] Oct, [facility] [place] [address] [id number] [place] [id number] Oct, [facility] [place] [address] [id number] [place] [id number] July, [facility] [place] [address] [id number] [place] [id number] July, [facility] [place] [address] [id number] [place] [id number] Jun, [facility] [place] [address] [address] [id number] [place] [id number] Jun, [facility] [address] [id number] [place] [id number] Jun, [facility] [address] [id number] [place] [id number] Mar, [facility] [address] [facility] [id number] [place] [id number] Mar, [facility] [address] [facility] [id number] [address] [place] [id number] Feb, [facility] [address] [id number] [address] [place] [id number] Feb, [facility] [address] [facility] [id number] [address] [place] [id number] Jan, [facility] [address] [facility] [id number] [address] [place] [id number] Jan, [facility] [address] [facility] [id number] [address] [place] [id number] Jan, [facility] [address] [facility] [id number] [address] [place] [id number] Jan, [facility] [address] [facility] [id number] [address] [place] [id number] Jan, [facility] [address] [facility] [id number] [address] [place] [id number] Aug, [facility] [address] [facility] [id number] [address] [place] [id number] Apr, IMMUNIZATIONS No Known Immunizations SOCIAL HISTORY [...]
--- OUTSIDE RECORDS SUMMARY | 2019-11-08 13:09 | XMS REPORT ---
Author Author Zana ORTIZ Organization [facility], [place] Address [address] [place] [address] Care Team Providers Care Wage Hand Name Role Phone DIANADAVIDAVANI Unavailable PROBLEMS Type Condition ICD9-CM Code REP71-EP Code Onset Dates Condition S tatus SNOMED Code Problem Factor V Leiden D68.51 Active 3070 30909 Problem Post-phlebitic syndrome I87.009 Active 75055990 Problem Anticoagulant long-term use Z79.01 Ac tive 445030927 Problem Essential hypertension I10 Active 52570482 Problem Other chronic pain G89.29 Active 8 3367948 Problem Venous stasis ulcers, left I83.029 Act ozzy 876837981 Problem 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 36510889 Problem Congenital single kidney Q60.0 Activ e 26539584 Problem Venous anomaly Q27.9 Active 37970 4003 Problem Pure hypercholesterolemia E78.00 Acti ve 845900536 Problem Chronic prescription opiate use Z79.899 Active 442591429 ALLERGIES No Information ENCOUNTERS Encounter Location Date Diagnosis [facility] [place] [address] [facility] [id number] [address] [place] [id number] Dec, [facility] [place] [address] [facility] [id number] [address] [place] [id number] Nov, Other chronic pain G89.29 [facility] [place] [address] [facility] [id number] [address] [place] [id number] Oct, Other chronic pain G89.29 [facility] [place] [address] [facility] [id number] [address] [place] [id number] Sep, Other chronic pain G89.29 [facility] [place] [address] [facility] [id number] [address] [place] [id number] Aug, Other chronic pain G89.29 [facility] [place] [address] [facility] [id number] [address] [place] [id number] Aug, Venous stasis ulcers, left I 83.029 [facility] [place] [address] [facility] [id number] [address] [place] [id number] July, Other chronic pain G89.29 [facility] [place] [address] [facility] [id number] [address] [place] [id number] July, Venous stasis ulcers, left I 83.029 and Snoring R06.83 [facility] [place] [address] [facility] [id number] [address] [place] [id number] Jun, Idiopathic chronic gout of m ultiple sites without tophus M1A.09X0 [facility] [place] [address] [facility] [id number] [address] [place] [id number] Jun, Acute renal insufficiency N2 8.9 [facility] [place] [address] [facility] [id number] [address] [place] [id number] Jun, Other chronic pain G89.29 [facility] [place] [address] [facility] [id number] [address] [place] [id number] Jun, Acute renal insufficiency N2 8.[address] [place] [id number] [place] [id number] Jun, Idiopathic chronic gout of multiple site s without tophus M1A.09X0 ; Essential hypertension I10 and Anticoagulant long-term use Z79.01 [facility] [place] [address] [facility] [id number] [address] [place] [id number] Jun, Anticoagulant long-term use Z79.01 and Essential hypertension I10 [facility] [place] [address] [facility] [id number] [address] [place] [id number] May, Idiopathic chronic gout of m ultiple sites without tophus M1A.09X0 [place] [address] [facility] [id number] [address] [place] [id number] May, [place] [address] [facility] [id number] [address] [place] [id number] May, Essential hypertension I10 ; Pure hypercholesterolemia E78.00 ; Anticoagulant long-term use Z79.01 and Idiopathic chronic gout of multiple sites without tophus M1A.09X0 [place] [address] [facility] [id number] [address] [place] [id number] May, Other chronic pain G89.29 [facility] [place] [address] [facility] [id number] [address] [place] [id number] May, Anticoagulant long-term use Z79.01 [place] [address] [facility] [id number] [address] [place] [id number] May, Chronic prescription opiate use Z79.899 ; Other chronic pain G89.29 ; Essential hypertension I10 ; Factor V Leiden D68.51 ; Anticoagulant long-term use Z79.01 ; Pure hypercholesterolemia E78.00 ; Venous stasis ulcers, left I83.029 ; Idiopathic chronic gout of multiple sites without tophus M1A.09X0 and Cellulitis of left lower extremity L03.116 [place] [address] [facility] [id number] [address] [place] [id number] Apr, Other chronic pain G89.29 [place] [address] [facility] [id number] [address] [place] [id number] Mar, Other chronic pain G89.29 [place] [address] [facility] [id number] [address] [place] [id number] Mar, Factor V Leiden D68.51 ; Pur e hypercholesterolemia E78.00 and Other chronic pain G89.29 [place] [address] [facility] [id number] [address] [place] [id number] Feb, Other chronic pain G89.29 [place] [address] [facility] [id number] [address] [place] [id number] Jan, Idiopathic chronic gout of m ultiple sites without tophus M1A.09X0 [place] [address] [facility] [id number] [address] [place] [id number] Jan, Other chronic pain G89.29 [place] [address] [facility] [id number] [address] [place] [id number] Dec, Anticoagulant long-term use Z79.01 ; Factor V Leiden D68.51 and Other chronic pain G89.29 [place] [address] [facility] [id number] [address] [place] [id number] Dec, Other chronic pain G89.29 [place] [address] [facility] [id number] [address] [place] [id number] Nov, Other chronic pain G89.29 [place] [address] [facility] [id number] [address] [place] [id number] Oct, Other chronic pain G89.29 [place] [address] [place] [id number] [address] [place] [id number] Sep, Anticoagulant long-term use Z79.01 [place] [address] [facility] [id number] [address] [place] [id number] Sep, Chronic prescription opiate use Z79.899 ; Anticoagulant long-term use Z79.01 ; Essential hypertension I10 ; Pure hypercholesterolemia E78.00 ; Factor V Leiden D68.51 ; Venous stasis ulcers, left I83.029 ; Other chronic pain G89.29 and Idiopathic chronic gout of multiple sites without tophus M1A.09X0 [place] [address] [facility] [id number] [address] [place] [id number] Aug, Anticoagulant long-term use Z79.01 [place] [address] [facility] [id number] [address] [place] [id number] Aug, Other chronic pain G89.29 [place] [address] [facility] [id number] [address] [place] [id number] Aug, Essential hypertension I10 a nd Factor V Leiden D68.[id number] [place] [address] [id number] 15 Aug, 2016 Acute right ankle pain M25.571 and Tendo nitis of ankle M77.50 [place] [address] [facility] [id number] [address] [place] [id number] Aug, [facility] [place] [address] [facility] [id number] [address] [place] [id number] July, Other chronic pain G89.29 [facility] [place] [address] [id number] [address] [place] [id number] Jun, Other chronic pain G89.29 [facility] [place] [address] [id number] [address] [place] [id number] Jun, Other chronic pain G89.29 [place] [address] [facility] [id number] [address] [place] [id number] Jun, Anticoagulant long-term use Z79.01 [place] [address] [facility] [id number] [address] [place] [id number] May, Other chronic pain G89.29 [facility] [place] [address] [facility] [id number] [address] [place] [id number] May, Anticoagulant long-term use Z79.01 [place] [address] [facility] [id number] [address] [place] [id number] May, Other chronic pain G89.29 [place] [address] [facility] [id number] [address] [place] [id number] Apr, Anticoagulant long-term use Z79.01 [place] [address] [id number] [address] [place] [id number] Apr, Other chronic pain G89.29 [place] [address] [facility] [id number] [address] [place] [id number] Apr, Anticoagulant long-term use Z79.01 and Pure hypercholesterolemia E78.00 [place] [address] [facility] [id number] [address] [place] [id number] Mar, [facility] [place] [address] [facility] [id number] [address] [place] [id number] Mar, Anticoagulant long-term use Z79.01 [facility] [place] [address] [facility] [id number] [address] [place] [id number] 04 Mar, 2016 Other chronic pain G89.29 [facility] [place] [address] [facility] [id number] [address] [place] [id number] Feb, Essential hypertension I10 ; Chronic prescription opiate use Z79.899 ; Other chronic pain G89.29 ; Screening Z13.9 ; Factor V Leiden D68.51 ; Anticoagulant long-term use Z79.01 ; Venous stasis dermatitis of left lower extremity I83.12 and Pure hypercholesterolemia E78.00 [facility] [place] [address] [facility] [id number] [address] [place] [id number] 14 Jan, 2016 Anticoagulant long-term use Z79.01 [facility] [place] [address] [facility] [id number] [address] [place] [id number] Jan, Anticoagulant long-term use Z79.01 [facility] [place] [address] [facility] [id number] [address] [place] [id number] Jan, [facility] [place] [address] [place] [id number] [address] [place] [phone] Jan, [facility] [place] [address] [facility] [id number] [address] [place] [phone] Dec, [facility] [place] [address] [facility] [id number] [address] [place] [id number] Nov, [facility] [place] [address] [facility] [id number] [address] [place] [id number] Oct, Anticoagulant long-term use Z79.01 [facility] [place] [address] [facility] [id number] [address] [place] [id number] Oct, [facility] [place] [address] [facility] [id number] [address] [place] [id number] 15 Aug, 2016 Anticoagulant long-term use Z79.01 [facility] [place] [address] [facility] [id number] [address] [place] [id number] Sep, [facility] [place] [address] [facility] [id number] [address] [place] [id number] Aug, [facility] [place] [address] [facility] [id number] [address] [place] [id number] Aug, Chronic prescription opiate use Z79.899 ; Other chronic pain G89.29 ; Essential hypertension I10 and Pure hypercholesterolemia E78.0 [place] [address] [facility] [id number] [address] [place] [id number] July, Hyperlipidemia, group D E78. 3 and Anticoagulant long-term use Z79.01 [place] [address] [place] [id number] [address] [place] [id number] July, Hyperlipidemia, group D E78. 3 ; Essential hypertension I10 and Factor V Leiden D68.51 [place] [address] [place] [id number] [address] [place] [id number] July, Essential hypertension I10 [place] [address] [address] Jun, Hyperlipidemia, group D E78. 3 [place] [address] [place] [id number] [address] [place] [id number] Jun, Factor V Leiden D68.51 [place] [address] [place] [id number] [address] [place] [id number] May, Factor V Leiden D68.51 ; Hyp erlipidemia, group D E78.3 ; Essential hypertension I10 ; Other chronic pain G89.29 and Anticoagulant long-term use Z79.01 [place] [address] [facility] [id number] [address] [place] [address] May, Anticoagulant long-term use Z79.01 [place] [address] [facility] [id number] [address] [place] [id number] May, Anticoagulant long-term use Z79.01 [facility] [place] [address] [place] [id number] [address] [place] [id number] May, [facility] [place] [address] [address] Apr, [facility] [place] [address] [address] Mar, [facility] [place] [address] [address] Mar, [facility] [place] [address] [address] Feb, Anticoagulant long-term use Z79.01 [facility] [place] [address] [address] Feb, Chronic prescription opiate use Z79.899 ; Other chronic pain G89.29 ; Hyperlipidemia, group D E78.3 ; Factor V Leiden D68.51 and Anticoagulant long- term use Z79.01 [place] [address] [address] Feb, [place] [address] [address] Jan, [place] [address] [address] Dec, Hyperlipidemia, unspecified E78.5 [place] [address] [address] Dec, Cellulitis of left lower ext remity L03.116 ; Venous stasis ulcers, left I83.029 and Factor V Leiden D68.51 [place] [address] [phone] 09 Dec, 2014 Hyperlipidemia 272.4 and Fac tor V Leiden 289.81 [place] [address] [address] Dec, [facility] [place] [address] [facility] [id number] [address] [place] [id number] Nov, Factor V Leiden 289.81 [facility] [place] [address] [facility] [id number] [address] [place] [id number] Nov, [facility] [place] [address] [facility] [id number] [address] [place] [id number] Nov, [facility] [place] [address] [facility] [id number] [place] [phone] Nov, [facility] [place] [address] [facility] [id number] [address] [place] [phone] Oct, [facility] [place] [address] [facility] [id number] [place] [phone] Oct, Hyperlipidemia 272.4 ; Chron ic pain disorder 338.4 ; Venous stasis ulcer of left lower extremity 454.0 and Factor V Leiden 289.81 [facility] [place] [address] [place] [id number] [address] [place] [id number] Sep, [facility] [place] [address] [place] [id number] [place] [phone] Sep, [facility] [place] [address] [place] [id number] [address] [place] [id number] Sep, Hyperlipidemia 272.4 and Fac tor V Leiden 289.81 [facility] [place] [address] [place] [id number] [address] [place] [id number] Aug, [facility] [place] [address] [facility] [id number] [address] [place] [id number] Aug, Factor V Leiden 289.81 [facility] [place] [address] [place] [id number] [address] [place] [phone] July, [facility] [place] [address] [facility] [id number] [address] [place] [id number] July, Essential hypertension, fito gn 401.1 ; Factor V Leiden 289.81 ; Chronic pain disorder 338.4 ; Hyperlipidemia 272.4 and Venous stasis ulcer of left lower extremity 454.0 [facility] [address] [id number] [address] [place] [address], [place] [address] 14 Jun, 2014 [facility] [address] [id number] [address] [place] [id number] 13 Jun, 2014 [facility] [address] [id number] [address] [place] [address], [place] [address] 13 May, 2014 [facility] [address] [id number] [address] [place] [id number] 13 May, 2014 [facility] [address] [id number] [address] [place] [address], [place] [address] Apr, [facility] [address] [id number] [address] [place] [address], [place] [address] Apr, [facility] [address] [id number] [address] [place] [id number] 18 Apr, 2014 [facility] [address] [id number] [address] [place] [address], [place] [address] 18 Apr, 2014 [facility] [address] [id number] [address] [place] [address], [place] [address] Apr, [facility] [address] [id number] [address] [place] [id number] Apr, [facility] [address] [id number] [address] [place] [id number] Mar, [facility] [address] [id number] [address] [place] [id number] Mar, [facility] [address] [id number] [address] [place] [phone] Mar, [facility] [address] [id number] [address] [place] [id number] Mar, [facility] [address] [id number] [address] [place] [phone] Feb, [facility] [address] [id number] [address] [place] [address], [place] [address] Feb, [facility] [address] [id number] [address] [place] [address], [place] [address] Feb, [facility] [address] [id number] [address] [place] [address], [place] [address] Feb, [facility] [address] [id number] [address] [place] [address], [place] [address] Jan, [facility] [address] [id number] [address] [place] [address], [place] [address] Jan, [facility] [address] [id number] [address] [place] [address], [place] [address] Jan, [facility] [address] [id number] [address] [place] [address], [place] [address] Jan, [facility] [address] [id number] [address] [place] [address], [place] [address] Jan, [facility] [address] [id number] [address] [place] [address], [place] [address] Jan, [facility] [address] [id number] [address] [place] [address], [place] [id number] Dec, [facility] [address] [id number] [address] [place] [address], [place] [address] Dec, [facility] [address] [id number] [address] [place] [address], [place] [address] Oct, [facility] [address] [id number] [address] [place] [address], [place] [address] Oct, [facility] [address] [id number] [address] [place] [address], [place] [address] Sep, [facility] [address] [id number] [address] [place] [address], [place] [address] Sep, [facility] [address] [id number] [address] [place] [address], [place] [address] Sep, [facility] [address] [id number] [address] [place] [address], [place] [address] Sep, [facility] [address] [id number] [address] [place] [address], [place] [address] Aug, [facility] [address] [id number] [address] [place] [address], [place] [address] Aug, [facility] [address] [id number] [address] [place] [address], [place] [address] July, [facility] [address] [id number] [address] [place] [address], [place] [address] July, [facility] [address] [id number] [address] [place] [address], [place] [address] Jun, [facility] [address] [id number] [address] [place] [address], [place] [address] Jun, [facility] [address] [id number] [address] [place] [address], [place] [address] May, [facility] [address] [id number] [address] [place] [address], [place] [address] May, [facility] [address] [id number] [address] [place] [address], [place] [address] Apr, [facility] [address] [id number] [address] [place] [address], [place] [address] Apr, [facility] [address] [id number] [address] [place] [address], [place] [address] Mar, [facility] [address] [id number] [address] [place] [address], [place] [address] Mar, [facility] [address] [id number] [address] [place] [address], [place] [address] Jan, [facility] [address] [id number] [address] [place] [address], [place] [address] Jan, [facility] [address] [id number] [address] [place] [address], [place] [address] Jan, [facility] [address] [id number] [address] [place] [address], [place] [address] Jan, [facility] [address] [id number] [address] [place] [address], [place] [address] Jan, [facility] [facility] [address] [id number] [address] [place] [address], [place] [id number] Dec, [facility] [address] [id number] [address] [place] [address], [place] [id number] Dec, [facility] [address] [id number] [address] [place] [address], [place] [id number] Dec, [facility] [address] [id number] [address] [place] [address], [place] [id number] Nov, [facility] [address] [id number] [address] [place] [address], [place] [id number] Nov, [facility] [address] [id number] [address] [place] [address], [place] [id number] Sep, [facility] [address] [id number] [address] [place] [phone] Sep, [facility] [address] [id number] [address] [place] [id number] Aug, [facility] [address] [id number] [address] [place] [id number] Aug, [facility] [address] [id number] [place] [id number] July, [facility] [address] [id number] [place] [id number] Jun, [facility] [address] [id number] [place] [id number] Apr, [facility] [address] [id number] [place] [id number] Mar, [facility] [address] [id number] [address] [place] [id number] Mar, [facility] [address] [id number] [place] [id number] Mar, [facility] [address] [facility] [id number] [address] [place] [id number] Mar, [facility] [address] [id number] [place] [id number] Feb, [facility] [address] [facility] [id number] [address] [place] [id number] Feb, [facility] [address] [id number] [place] [id number] Feb, [facility] [address] [facility] [id number] [address] [place] [id number] Feb, [facility] [address] [id number] [place] [id number] Oct, [facility] [address] [id number] [place] [id number] Oct, [facility] [address] [id number] [place] [id number] July, [facility] [address] [id number] [place] [id number] July, [facility] [address] [id number] [place] [id number] Jun, [facility] [address] [id number] [place] [id number] Jun, [facility] [address] [id number] [place] [id number] Jun, [facility] [address] [id number] [place] [id number] Mar, [facility] [address] [id number] [place] [id number] Mar, [facility] [address] [facility] [id number] [address] [place] [id number] Feb, [facility] [address] [facility] [id number] [address] [place] [id number] Feb, [facility] [place] [address] [id number] [address] [place] [phone] Jan, [facility] [place] [address] [id number] [address] [place] [id number] Jan, [facility] [place] [address] [id number] [address] [place] [id number] Jan, [facility] [place] [address] [id number] [address] [place] [id number] Jan, [facility] [place] [address] [id number] [address] [place] [id number] Jan, [facility] [place] [address] [id number] [address] [place] [id number] Aug, [facility] [place] [address] [facility] [id number] [address] [place] [phone] Apr, IMMUNIZATIONS No Known Immunizations SOCIAL HISTORY Never Assessed REASON FOR VISIT Controlled Medication Refill- Due 11/08/17 PLAN OF CARE VITAL SIGNS MEDICATIONS Medication Instructions Dosage Frequency Start Date End Date Duration S reaganus Hydrocodone-Acetaminophen 10-325 MG Orally 4 times a day as needed for pain 1 tablet Oct, 28 days Active Fish Oil 1 gram take 1 capsule by Oral route 3 times per day Sep, Active Pravastatin Sodium 40 MG TAKE ONE TABLET BY MOUTH ONCE DAILY 90 Active Lisinopril 20 MG TAKE ONE TABLET BY MOUTH ONCE DAILY 90 Active Aspirin 325 MG Orally Once a day 1 tablet 24h Active Warfarin Sodium 10 MG TAKE ONE TABLET BY MOUTH ONCE DAILY 90 Active Gabapentin 400 mg Orally Three times a day 1 tablet 8h July, 90 days Active Silvadene 1 % Externally Once a day 1 application to affected area 24h Active RESULTS No Results PROCEDURES No Known [...]
--- OUTSIDE RECORDS SUMMARY | 2019-11-08 13:09 | XMS REPORT ---
Author Author Zana SALCIDO Organization 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 [address] [facility] [id number] [address] [place] [phone] Dec, [facility] [address] [facility] [id number] [address] [place] [id number] 14 Oct, 2017 Other chronic pain G89.29 [facility] [address] [facility] [id number] [address] [place] [address] Sep, Other chronic pain G89.29 [facility] [address] [facility] [id number] [address] [place] [address] 18 Aug, 2017 Other chronic pain G89.29 [facility] [address] [facility] [id number] [address] [place] [address] 11 Aug, 2017 Venous stasis ulcers, left I 83.029 [place] [address] [facility] [id number] [address] [place] [address] July, Other chronic pain G89.29 [place] [address] [facility] [id number] [address] [place] [address] July, Venous stasis ulcers, left I 83.029 and Snoring R06.83 [place] [address] [facility] [id number] [address] [place] [address] Jun, Idiopathic chronic gout of m ultiple sites without tophus M1A.09X0 [place] [address] [facility] [id number] [address] [place] [address] Jun, Acute renal insufficiency N2 8.9 [place] [address] [facility] [id number] [address] [place] [address] Jun, Other chronic pain G89.29 [place] [address] [facility] [id number] [address] [place] [phone] Jun, Acute renal insufficiency N2 8.9 [place] [id number] [facility] [id number] [id number] Jun, Idiopathic chronic gout of multiple site s without tophus M1A.09X0 ; Essential hypertension I10 and Anticoagulant long-term use Z79.01 [place] [address] [facility] [id number] [address] [place] [address] Jun, Anticoagulant long-term use Z79.01 and Essential hypertension I10 [place] [address] [facility] [id number] [address] [place] [address] May, Idiopathic chronic gout of m ultiple sites without tophus M1A.09X0 [place] [address] [facility] [id number] [address] [place] [address] May, [place] [address] [facility] [id number] [address] [place] [address] May, Essential hypertension I10 ; Pure hypercholesterolemia E78.00 ; Anticoagulant long-term use Z79.01 and Idiopathic chronic gout of multiple sites without tophus M1A.09X0 [place] [address] [id number] [address] [place] [address] May, Other chronic pain G89.29 [place] [address] [facility] [id number] [address] [place] [address] May, Anticoagulant long-term use Z79.01 [place] [address] [facility] [id number] [address] [place] [address] May, Chronic prescription opiate use Z79.899 ; Other chronic pain G89.29 ; Essential hypertension I10 ; Factor V Leiden D68.51 ; Anticoagulant long-term use Z79.01 ; Pure hypercholesterolemia E78.00 ; Venous stasis ulcers, left I83.029 ; Idiopathic chronic gout of multiple sites without tophus M1A.09X0 and Cellulitis of left lower extremity L03.116 [place] [address] [facility] [id number] [address] [place] [address] Apr, Other chronic pain G89.29 [place] [address] [facility] [id number] [address] [place] [address] Mar, Other chronic pain G89.29 [place] [address] [facility] [id number] [address] [place] [phone] Mar, Factor V Leiden D68.51 ; Pur e hypercholesterolemia E78.00 and Other chronic pain G89.29 [place] [address] [facility] [id number] [address] [place] [address] Feb, Other chronic pain G89.29 [place] [address] [facility] [id number] [address] [place] [phone] Jan, Idiopathic chronic gout of m ultiple sites without tophus M1A.09X0 [place] [address] [facility] [id number] [address] [place] [phone] Jan, Other chronic pain G89.29 [place] [address] [facility] [id number] [address] [place] [address] Dec, Anticoagulant long-term use Z79.01 ; Factor V Leiden D68.51 and Other chronic pain G89.29 [place] [address] [facility] [id number] [address] [place] [phone] Dec, Other chronic pain G89.29 [place] [address] [facility] [id number] [address] [place] [phone] Nov, Other chronic pain G89.29 [place] [address] [facility] [id number] [address] [place] [address] Oct, Other chronic pain G89.29 [place] [address] [facility] [id number] [address] [place] [address] Sep, Anticoagulant long-term use Z79.01 [place] [address] [facility] [id number] [address] [place] [address] Sep, Chronic prescription opiate use Z79.899 ; Anticoagulant long-term use Z79.01 ; Essential hypertension I10 ; Pure hypercholesterolemia E78.00 ; Factor V Leiden D68.51 ; Venous stasis ulcers, left I83.029 ; Other chronic pain G89.29 and Idiopathic chronic gout of multiple sites without tophus M1A.09X0 [place] [address] [facility] [id number] [address] [place] [address] Aug, Anticoagulant long-term use Z79.01 [place] [address] [facility] [id number] [address] [place] [address] Aug, Other chronic pain G89.29 [place] [address] [facility] [id number] [address] [place] [phone] Aug, Essential hypertension I10 a nd Factor V Leiden D68.[address] [place] [id number] [place] [id number] 15 Aug, 2016 Acute right ankle pain M25.571 and Tendo nitis of ankle M77.50 [place] [address] [id number] [address] [place] [address] Aug, [facility] [address] [id number] [address] [place] [address] July, Other chronic pain G89.29 [facility] [address] [facility] [id number] [address] [place] [address] Jun, Other chronic pain G89.29 [facility] [address] [facility] [id number] [address] [place] [address] Jun, Other chronic pain G89.29 [facility] [address] [facility] [id number] [address] [place] [address] Jun, Anticoagulant long-term use Z79.01 [facility] [address] [facility] [id number] [address] [place] [address] May, Other chronic pain G89.29 [facility] [address] [facility] [id number] [address] [place] [address] May, Anticoagulant long-term use Z79.01 [facility] [address] [facility] [id number] [address] [place] [address] May, Other chronic pain G89.29 [facility] [address] [facility] [id number] [address] [place] [address] Apr, Anticoagulant long-term use Z79.01 [facility] [address] [facility] [id number] [address] [place] [address] Apr, Other chronic pain G89.29 [facility] [address] [id number] [address] [place] [phone] Apr, Anticoagulant long-term use Z79.01 and Pure hypercholesterolemia E78.00 [facility] [address] [facility] [id number] [address] [place] [phone] Mar, [facility] [address] [facility] [id number] [address] [place] [address] Mar, Anticoagulant long-term use Z79.01 [facility] [address] [facility] [id number] [address] [place] [phone] 04 Mar, 2016 Other chronic pain G89.29 [facility] [address] [facility] [id number] [address] [place] [id number] 08 Feb, 2016 Essential hypertension I10 ; Chronic prescription opiate use Z79.899 ; Other chronic pain G89.29 ; Screening Z13.9 ; Factor V Leiden D68.51 ; Anticoagulant long-term use Z79.01 ; Venous stasis dermatitis of left lower extremity I83.12 and Pure hypercholesterolemia E78.00 [facility] [address] [facility] [id number] [address] [place] [address] 14 Jan, 2016 Anticoagulant long-term use Z79.01 [facility] [address] [facility] [id number] [address] [place] [address] Jan, Anticoagulant long-term use Z79.01 [place] [address] [facility] [id number] [address] [place] [phone] Jan, [facility] [address] [facility] [id number] [address] [place] [phone] Jan, [facility] [address] [facility] [id number] [address] [place] [phone] Dec, [facility] [address] [facility] [id number] [address] [place] [phone] Nov, [facility] [address] [facility] [id number] [address] [place] [phone] Oct, Anticoagulant long-term use Z79.01 [facility] [address] [facility] [id number] [address] [place] [phone] Oct, [facility] [address] [facility] [id number] [address] [place] [phone] Oct, Anticoagulant long-term use Z79.01 [facility] [address] [facility] [id number] [address] [place] [address] Sep, [facility] [address] [place] [id number] [address] [place] [phone] Aug, [facility] [address] [facility] [id number] [address] [place] [address] Aug, Chronic prescription opiate use Z79.899 ; Other chronic pain G89.29 ; Essential hypertension I10 and Pure hypercholesterolemia E78.0 [facility] [address] [facility] [id number] [address] [place] [phone] July, Hyperlipidemia, group D E78. 3 and Anticoagulant long-term use Z79.01 [facility] [address] [facility] [id number] [address] [place] [address] July, Hyperlipidemia, group D E78. 3 ; Essential hypertension I10 and Factor V Leiden D68.51 [place] [address] [facility] [id number] [address] [place] [phone] July, Essential hypertension I10 [place] [address] [facility] [id number] [address] [place] [phone] Jun, Hyperlipidemia, group D E78. 3 [facility] [address] [facility] [id number] [address] [place] [phone] Jun, Factor V Leiden D68.51 [facility] [address] [facility] [id number] [address] [place] [phone] May, Factor V Leiden D68.51 ; Hyp erlipidemia, group D E78.3 ; Essential hypertension I10 ; Other chronic pain G89.29 and Anticoagulant long-term use Z79.01 [facility] [address] [facility] [id number] [address] [place] [phone] May, Anticoagulant long-term use Z79.01 [facility] [address] [facility] [id number] [address] [place] [address] May, Anticoagulant long-term use Z79.01 [facility] [address] [facility] [id number] [address] [place] [phone] May, [facility] [address] [facility] [id number] [address] [place] [address] Apr, [facility] [address] [address] Mar, [facility] [address] [facility] [id number] [address] [place] [phone] Mar, [facility] [id number] [place] [address] Feb, Anticoagulant long-term use Z79.01 [facility] [address] [facility] [id number] [address] [place] [address] 16 Feb, 2015 Chronic prescription opiate use Z79.899 ; Other chronic pain G89.29 ; Hyperlipidemia, group D E78.3 ; Factor V Leiden D68.51 and Anticoagulant long- term use Z79.01 [place] [id number] [place] [address] Feb, [facility] [address] [place] [id number] [address] [place] [address] Jan, [place] [address] [address] Dec, Hyperlipidemia, unspecified E78.5 [place] [address] [place] [id number] [address] [place] [address] Dec, Cellulitis of left lower ext remity L03.116 ; Venous stasis ulcers, left I83.029 and Factor V Leiden D68.51 [facility] [address] [place] [id number] [address] [place] [address] Dec, Hyperlipidemia 272.4 and Fac tor V Leiden 289.81 [place] [address] [place] [id number] [address] [place] [phone] 07 Dec, 2014 [facility] [address] [place] [id number] [address] [place] [address] Nov, Factor V Leiden 289.81 [place] [address] [place] [id number] [address] [place] [phone] Nov, [facility] [address] [place] [id number] [place] [address] Nov, [facility] [address] [facility] [id number] [place] [address] Nov, [facility] [address] [place] [id number] [place] [address] Oct, [facility] [address] [facility] [id number] [place] [address] Oct, Hyperlipidemia 272.4 ; Chron ic pain disorder 338.4 ; Venous stasis ulcer of left lower extremity 454.0 and Factor V Leiden 289.81 [facility] [address] [place] [id number] [place] [address] Sep, [facility] [address] [address] Sep, [facility] [address] [place] [id number] [place] [address] Sep, Hyperlipidemia 272.4 and Fac tor V Leiden 289.81 [facility] [id number] [place] [address] Aug, [facility] [address] [place] [id number] [address] [place] [address] Aug, Factor V Leiden 289.81 [facility] [address] [place] [id number] [address] [place] [address] July, [facility] [address] [address] July, Essential hypertension, fito gn 401.1 ; Factor V Leiden 289.81 ; Chronic pain disorder 338.4 ; Hyperlipidemia 272.4 and Venous stasis ulcer of left lower extremity 454.0 [facility] [address] [place] [id number] [address] [place] [address] Jun, [facility] [address] [id number] [address] [place] [address], [place] [address] 13 Jun, 2014 [facility] [address] [id number] [address] [place] [address], [place] [address] 13 May, 2014 [facility] [address] [id number] [address] [place] [address], [place] [address] 13 May, 2014 [facility] [address] [id number] [address] [place] [address], [place] [address] 20 Apr, 2014 [facility] [address] [id number] [address] [place] [address], [place] [address] 20 Apr, 2014 [facility] [address] [id number] [address] [place] [address], [place] [address] 18 Apr, 2014 [facility] [address] [id number] [address] [place] [address], [place] [address] 18 Apr, 2014 [facility] [address] [id number] [address] [place] [address], [place] [address] 13 Apr, 2014 [facility] [address] [id number] [address] [place] [address], [place] [address] 13 Apr, 2014 [facility] [address] [id number] [address] [place] [address], [place] [address] 15 Mar, 2014 [facility] [address] [id number] [address] [place] [address], [place] [address] 15 Mar, 2014 [facility] [address] [id number] [address] [place] [address], [place] [address] Mar, [facility] [address] [id number] [address] [place] [address], [place] [address] Mar, [facility] [address] [id number] [address] [place] [address], [place] [address] Feb, [facility] [address] [id number] [address] [place] [address], [place] [address] Feb, [facility] [address] [id number] [address] [place] [address], [place] [address] Feb, [facility] [address] [id number] [address] [place] [address], [place] [address] Feb, [facility] [address] [id number] [address] [place] [address], [place] [address] Jan, [facility] [address] [id number] [address] [place] [address], [place] [address] Jan, [facility] [address] [id number] [address] [place] [address], [place] [address] Jan, [facility] [address] [id number] [address] [place] [address], [place] [address] Jan, [facility] [address] [id number] [address] [place] [address], [place] [address] Jan, [facility] [address] [id number] [address] [place] [address], [place] [address] Jan, [facility] [address] [id number] [address] [place] [address], [place] [address] Dec, [facility] [address] [id number] [address] [place] [address], [place] [address] Dec, [facility] [address] [id number] [address] [place] [address], [place] [address] Oct, [facility] [address] [id number] [address] [place] [address], [place] [address] Oct, [facility] [address] [id number] [address] [place] [address], [place] [address] Sep, [facility] [address] [id number] [address] [place] [address], [place] [address] Sep, [facility] [address] [id number] [address] [place] [address], [place] [address] Sep, [facility] [address] [id number] [address] [place] [address], [place] [address] Sep, [facility] [address] [id number] [address] [place] [address], [place] [address] Aug, [facility] [address] [id number] [address] [place] [address], [place] [address] Aug, [facility] [address] [id number] [address] [place] [address], [place] [address] July, [facility] [address] [id number] [address] [place] [address], [place] [address] July, [facility] [address] [id number] [address] [place] [address], [place] [address] Jun, [facility] [address] [id number] [address] [place] [address], [place] [address] Jun, [facility] [address] [id number] [address] [place] [address], [place] [address] May, [facility] [address] [id number] [address] [place] [address], [place] [address] May, [facility] [address] [id number] [address] [place] [address], [place] [address] Apr, [facility] [address] [id number] [address] [place] [address], [place] [address] Apr, [facility] [address] [id number] [address] [place] [address], [place] [address] Mar, [facility] [address] [id number] [address] [place] [address], [place] [address] Mar, [facility] [address] [id number] [address] [place] [address], [place] [address] Jan, [facility] [address] [id number] [address] [place] [address], [place] [address] Jan, [facility] [address] [id number] [address] [place] [address], [place] [address] Jan, [facility] [address] [id number] [address] [place] [id number] Jan, [facility] [address] [id number] [address] [place] [id number] Jan, [facility] [address] [id number] [address] [place] [id number] Dec, [facility] [address] [id number] [address] [place] [address], [place] [address] Dec, [facility] [address] [id number] [address] [place] [id number] Dec, [facility] [address] [id number] [address] [place] [address], [place] [address] Nov, [facility] [address] [id number] [address] [place] [address], [place] [address] Nov, [facility] [address] [id number] [address] [place] [id number] Sep, [facility] [address] [id number] [address] [place] [address], [place] [address] Sep, [facility] [address] [id number] [address] [place] [id number] Aug, [facility] [address] [id number] [address] [place] [id number] Aug, [facility] [address] [id number] [place] [id number] July, [facility] [address] [id number] [place] [id number] Jun, [facility] [address] [id number] [place] [id number] Apr, [facility] [address] [id number] [place] [id number] Mar, [facility] [address] [id number] [address] [place] [id number] Mar, [facility] [address] [id number] [place] [id number] Mar, [facility] [address] [facility] [id number] [address] [place] [address], [place] [address] Mar, [facility] [address] [id number] [place] [id number] Feb[facility] [address] [facility] [id number] [address] [place] [phone] Feb, [facility] [address] [id number] [place] [id number] Feb, [facility] [address] [id number] [address] [place] [phone] Feb, [facility] [address] [id number] [place] [id number] Oct, [facility] [address] [id number] [place] [id number] Oct, [facility] [address] [id number] [place] [id number] July, [facility] [address] [id number] [place] [id number] July, [facility] [address] [id number] [place] [id number] Jun, [facility] [address] [id number] [place] [id number] Jun, [facility] [address] [id number] [place] [id number] Jun, [facility] [address] [id number] [place] [id number] Mar, [facility] [address] [id number] [place] [id number] Mar, [facility] [address] [facility] [id number] [address] [place] [address], [place] [phone] Feb, [facility] [address] [facility] [id number] [address] [place] [phone] Feb, [facility] [address] [facility] [id number] [address] [place] [phone] Jan, [facility] [address] [facility] [id number] [address] [place] [phone] Jan, [facility] [address] [id number] [address] [place] [phone] Jan, [facility] [address] [facility] [id number] [address] [place] [phone] Jan, [facility] [address] [facility] [id number] [address] [place] [phone] Jan, [facility] [address] [facility] [id number] [address] [place] [phone] Aug, [facility] [address] [facility] [id number] [address] [place] [phone] Apr, IMMUNIZATIONS No Known Immunizations SOCIAL HISTORY Never Assessed REASON FOR VISIT Controlled Med Refill PLAN OF CARE VITAL SIGNS MEDICATIONS Medication Instructions Dosage Frequency Start Date End Date Duration S tatus Hydrocodone-Acetaminophen 10-325 MG Orally 4 times a day as needed for pain 1 tablet Sep, 28 days Active RESULTS No Results PROCEDURES [...]
--- OUTSIDE RECORDS SUMMARY | 2019-11-08 13:09 | XMS REPORT ---
Author Author Zana ORTIZ [facility] Address [address] [place] [address] Care Team Providers [employer] Director Name Role Phone DIANADAVIDAVANI Unavailable PROBLEMS Type Condition ICD9-CM Code AIN35-MH Code Onset Dates Condition S tatus SNOMED Code Problem Factor V Leiden D68.51 Active 3070 69806 Problem Post-phlebitic syndrome I87.009 Active 02439420 Problem Anticoagulant long-term use Z79.01 Ac tive 549534228 Problem Essential hypertension I10 Active 24790344 Problem Other chronic pain G89.29 Active 8 1841753 Problem Venous stasis ulcers, left I83.029 Act ozzy 143454746 Problem 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 40271257 Problem Congenital single kidney Q60.0 Activ e 67008958 Problem Venous anomaly Q27.9 Active 70770 4003 Problem Pure hypercholesterolemia E78.00 Acti ve 366329452 Problem Chronic prescription opiate use Z79.899 Active 942522459 ALLERGIES Substance Reaction Event Type Date Status Tetanus Unknown Drug Allergy Aug, Active Morphine Sulfate Unknown Drug Allergy Aug, Active Amoxicillin Unknown Drug Allergy Aug, Active ENCOUNTERS Encounter Location Date Diagnosis [facility] [address] [facility] [id number] [address] [place] [address] Nov, [facility] [address] [facility] [id number] [address] [place] [address] Oct, Other chronic pain G89.29 [facility] [address] [facility] [id number] [address] [place] [address] Sep, Other chronic pain G89.29 [facility] [address] [facility] [id number] [address] [place] [address] 18 Aug, 2017 Other chronic pain G89.29 [facility] [address] [facility] [id number] [address] [place] [address] Aug, Venous stasis ulcers, left I 83.029 [facility] [address] [facility] [id number] [address] [place] [address] July, Other chronic pain G89.29 [facility] [address] [facility] [id number] [address] [place] [address] July, Venous stasis ulcers, left I 83.029 and Snoring R06.83 [facility] [address] [id number] [address] [place] [address] Jun, Idiopathic chronic gout of m ultiple sites without tophus M1A.09X0 [facility] [address] [facility] [id number] [address] [place] [address] Jun, Acute renal insufficiency N2 8.9 [facility] [address] [facility] [id number] [address] [place] [address] Jun, Other chronic pain G89.29 [facility] [address] [facility] [id number] [address] [place] [address] Jun, Acute renal insufficiency N2 8.[address] [place] [address] [facility] [id number] [place] [id number] Jun, Idiopathic chronic gout of multiple site s without tophus M1A.09X0 ; Essential hypertension I10 and Anticoagulant long-term use Z79.01 [facility] [address] [facility] [id number] [address] [place] [address] Jun, Anticoagulant long-term use Z79.01 and Essential hypertension I10 [facility] [address] [facility] [id number] [address] [place] [address] May, Idiopathic chronic gout of m ultiple sites without tophus M1A.09X0 [facility] [address] [facility] [id number] [address] [place] [address] May, [facility] [address] [facility] [id number] [address] [place] [address] May, Essential hypertension I10 ; Pure hypercholesterolemia E78.00 ; Anticoagulant long-term use Z79.01 and Idiopathic chronic gout of multiple sites without tophus M1A.09X0 [place] [address] [address] [facility] [id number] [address] [place] [address] May, Other chronic pain G89.29 [place] [address] [address] [facility] [id number] [address] [place] [address] May, Anticoagulant long-term use Z79.01 [place] [address] [address] [facility] [id number] [address] [place] [address] May, Chronic prescription opiate use Z79.899 ; Other chronic pain G89.29 ; Essential hypertension I10 ; Factor V Leiden D68.51 ; Anticoagulant long-term use Z79.01 ; Pure hypercholesterolemia E78.00 ; Venous stasis ulcers, left I83.029 ; Idiopathic chronic gout of multiple sites without tophus M1A.09X0 and Cellulitis of left lower extremity L03.116 [place] [address] [address] [facility] [id number] [address] [place] [address] Apr, Other chronic pain G89.29 [place] [address] [address] [facility] [id number] [address] [place] [address] Mar, Other chronic pain G89.29 [place] [address] [address] [facility] [id number] [address] [place] [address] Mar, Factor V Leiden D68.51 ; Pur e hypercholesterolemia E78.00 and Other chronic pain G89.29 [place] [address] [address] [facility] [id number] [address] [place] [address] Feb, Other chronic pain G89.29 [place] [address] [address] [facility] [id number] [address] [place] [address] Jan, Idiopathic chronic gout of m ultiple sites without tophus M1A.09X0 [place] [address] [address] [facility] [id number] [address] [place] [address] Jan, Other chronic pain G89.29 [place] [address] [address] [facility] [id number] [address] [place] [address] Dec, Anticoagulant long-term use Z79.01 ; Factor V Leiden D68.51 and Other chronic pain G89.29 [place] [address] [address] [facility] [id number] [address] [place] [address] Dec, Other chronic pain G89.29 [place] [address] [address] [facility] [id number] [address] [place] [address] Nov, Other chronic pain G89.29 [place] [address] [address] [facility] [id number] [address] [place] [address] Oct, Other chronic pain G89.29 [place] [address] [address] [facility] [id number] [address] [place] [address] Sep, Anticoagulant long-term use Z79.01 [place] [address] [address] [facility] [id number] [address] [place] [address] Sep, Chronic prescription opiate use Z79.899 ; Anticoagulant long-term use Z79.01 ; Essential hypertension I10 ; Pure hypercholesterolemia E78.00 ; Factor V Leiden D68.51 ; Venous stasis ulcers, left I83.029 ; Other chronic pain G89.29 and Idiopathic chronic gout of multiple sites without tophus M1A.09X0 [place] [address] [address] [facility] [id number] [address] [place] [address] Aug, Anticoagulant long-term use Z79.01 [place] [address] [address] [facility] [id number] [address] [place] [address] Aug, Other chronic pain G89.29 [place] [address] [address] [facility] [id number] [address] [place] [address] Aug, Essential hypertension I10 a nd Factor V Leiden D68.[address] [place] [id number] [place] [id number] Aug, Acute right ankle pain M25.571 and Tendo nitis of ankle M77.50 [facility] [address] [facility] [id number] [address] [place] [address] Aug, [facility] [address] [facility] [id number] [address] [place] [address] July, Other chronic pain G89.29 [facility] [address] [facility] [id number] [address] [place] [address] Jun, Other chronic pain G89.29 [facility] [address] [facility] [id number] [address] [place] [address] Jun, Other chronic pain G89.29 [place] [address] [address] [facility] [id number] [address] [place] [address] Jun, Anticoagulant long-term use Z79.01 [place] [address] [address] [facility] [id number] [address] [place] [address] May, Other chronic pain G89.29 [facility] [address] [facility] [id number] [address] [place] [address] May, Anticoagulant long-term use Z79.01 [place] [address] [address] [facility] [id number] [address] [place] [address] May, Other chronic pain G89.29 [facility] [address] [facility] [id number] [address] [place] [address] Apr, Anticoagulant long-term use Z79.01 [facility] [address] [id number] [address] [place] [address] Apr, Other chronic pain G89.29 [facility] [address] [facility] [id number] [address] [place] [address] Apr, Anticoagulant long-term use Z79.01 and Pure hypercholesterolemia E78.00 [facility] [address] [facility] [id number] [address] [place] [address] Mar, [place] [address] [address] [facility] [id number] [address] [place] [address] 16 Mar, 2016 Anticoagulant long-term use Z79.01 [facility] [address] [facility] [id number] [address] [place] [address] 04 Mar, 2016 Other chronic pain G89.29 [facility] [address] [facility] [id number] [address] [place] [address] Feb, Essential hypertension I10 ; Chronic prescription opiate use Z79.899 ; Other chronic pain G89.29 ; Screening Z13.9 ; Factor V Leiden D68.51 ; Anticoagulant long-term use Z79.01 ; Venous stasis dermatitis of left lower extremity I83.12 and Pure hypercholesterolemia E78.00 [facility] [address] [facility] [id number] [address] [place] [address] 14 Jan, 2016 Anticoagulant long-term use Z79.01 [facility] [address] [facility] [id number] [address] [place] [address] Jan, Anticoagulant long-term use Z79.01 [facility] [address] [facility] [id number] [address] [place] [address] Jan, [facility] [address] [facility] [id number] [address] [place] [address] Jan, [facility] [address] [facility] [id number] [address] [place] [address] Dec, [facility] [address] [facility] [id number] [address] [place] [address] Nov, [facility] [address] [facility] [id number] [address] [place] [address] Oct, Anticoagulant long-term use Z79.01 [facility] [address] [facility] [id number] [address] [place] [address] Oct, [facility] [address] [facility] [id number] [address] [place] [address] Oct, Anticoagulant long-term use Z79.01 [facility] [address] [facility] [id number] [address] [place] [address] Sep, [facility] [address] [facility] [id number] [address] [place] [address] Aug, [facility] [address] [facility] [id number] [address] [place] [address] Aug, Chronic prescription opiate use Z79.899 ; Other chronic pain G89.29 ; Essential hypertension I10 and Pure hypercholesterolemia E78.0 [place] [address] [address] [facility] [id number] [address] [place] [address] July, Hyperlipidemia, group D E78. 3 and Anticoagulant long-term use Z79.01 [place] [address] [address] [facility] [id number] [address] [place] [address] July, Hyperlipidemia, group D E78. 3 ; Essential hypertension I10 and Factor V Leiden D68.51 [place] [address] [address] [facility] [id number] [address] [place] [address] July, Essential hypertension I10 [place] [address] [address] [facility] [id number] [address] [place] [address] Jun, Hyperlipidemia, group D E78. 3 [place] [address] [address] [facility] [id number] [address] [place] [address] Jun, Factor V Leiden D68.51 [place] [address] [address] [facility] [id number] [address] [place] [address] May, Factor V Leiden D68.51 ; Hyp erlipidemia, group D E78.3 ; Essential hypertension I10 ; Other chronic pain G89.29 and Anticoagulant long-term use Z79.01 [facility] [address] [facility] [id number] [address] [place] [address] May, Anticoagulant long-term use Z79.01 [facility] [address] [facility] [id number] [address] [place] [address] May, Anticoagulant long-term use Z79.01 [facility] [id number] [place] [address] May, [facility] [address] [address] Apr, [facility] [address] [address] Mar, [facility] [address] [address] Mar, [facility] [address] [address] Feb, Anticoagulant long-term use Z79.01 [facility] [address] [address] 16 Feb, 2015 Chronic prescription opiate use Z79.899 ; Other chronic pain G89.29 ; Hyperlipidemia, group D E78.3 ; Factor V Leiden D68.51 and Anticoagulant long- term use Z79.01 [facility] [address] [address] Feb, [facility] [address] [address] Jan, [facility] [address] [address] Dec, Hyperlipidemia, unspecified E78.5 [place] [address] [address] Dec, Cellulitis of left lower ext remity L03.116 ; Venous stasis ulcers, left I83.029 and Factor V Leiden D68.51 [place] [address] [address] 09 Dec, 2014 Hyperlipidemia 272.4 and Fac tor V Leiden 289.81 [facility] [address] [place] [id number] [place] [address] Dec, [facility] [id number] [place] [address] Nov, Factor V Leiden 289.81 [facility] [address] [facility] [id number] [address] [place] [address] Nov, [facility] [address] [place] [id number] [place] [address] Nov, [facility] [address] [address] Nov, [facility] [address] [facility] [id number] [address] [place] [address] Oct, [facility] [address] [address] Oct, Hyperlipidemia 272.4 ; Chron ic pain disorder 338.4 ; Venous stasis ulcer of left lower extremity 454.0 and Factor V Leiden 289.81 [facility] [address] [place] [id number] [address] [place] [address] Sep, [facility] [address] [address] Sep, [facility] [address] [address] Sep, Hyperlipidemia 272.4 and Fac tor V Leiden 289.81 [facility] [address] [place] [id number] [address] [place] [address] Aug, [facility] [address] [place] [id number] [address] [place] [address] Aug, Factor V Leiden 289.81 [facility] [address] [place] [id number] [address] [place] [address] July, [facility] [address] [place] [id number] [address] [place] [address] July, Essential hypertension, fito gn 401.1 ; Factor V Leiden 289.81 ; Chronic pain disorder 338.4 ; Hyperlipidemia 272.4 and Venous stasis ulcer of left lower extremity 454.0 [facility] [address] [id number] [address] [place] [address], [place] [address] 14 Jun, 2014 [facility] [address] [id number] [address] [place] [address], [place] [address] 13 Jun, 2014 [facility] [address] [id number] [address] [place] [address], [place] [address] May, [facility] [address] [id number] [address] [place] [address], [place] [address] May, [facility] [address] [id number] [address] [place] [address], [place] [address] Apr, [facility] [address] [id number] [address] [place] [address], [place] [address] Apr, [facility] [address] [id number] [address] [place] [address], [place] [address] 18 Apr, 2014 [facility] [address] [id number] [address] [place] [address], [place] [address] 18 Apr, 2014 [facility] [address] [id number] [address] [place] [address], [place] [address] Apr, [facility] [address] [id number] [address] [place] [address], [place] [address] Apr, [facility] [address] [id number] [address] [place] [address], [place] [address] Mar, [facility] [address] [id number] [address] [place] [address], [place] [address] Mar, [facility] [address] [id number] [address] [place] [address], [place] [address] Mar, [facility] [address] [id number] [address] [place] [address], [place] [address] Mar, [facility] [address] [id number] [address] [place] [address], [place] [address] Feb, [facility] [address] [id number] [address] [place] [address], [place] [address] 17 Feb, 2014 [facility] [address] [id number] [address] [place] [address], [place] [address] Feb, [facility] [address] [id number] [address] [place] [address], [place] [address] Feb, [facility] [address] [id number] [address] [place] [address], [place] [address] Jan, [facility] [address] [id number] [address] [place] [address], [place] [address] Jan, [facility] [address] [id number] [address] [place] [address], [place] [address] Jan, [facility] [address] [id number] [address] [place] [address], [place] [address] Jan, [facility] [address] [id number] [address] [place] [address], [place] [address] Jan, [facility] [address] [id number] [address] [place] [address], [place] [address] Jan, [facility] [address] [id number] [address] [place] [address], [place] [address] Dec, [facility] [address] [id number] [address] [place] [address], [place] [address] Dec, [facility] [address] [id number] [address] [place] [address], [place] [address] Oct, [facility] [address] [id number] [address] [place] [address], [place] [address] Oct, [facility] [address] [id number] [address] [place] [address], [place] [address] Sep, [facility] [address] [id number] [address] [place] [address], [place] [address] Sep, [facility] [address] [id number] [address] [place] [address], [place] [address] Sep, [facility] [address] [id number] [facility] [place] [place] [address] Sep, [facility] [address] [id number] [address] [place] [address], [place] [address] Aug, [facility] [address] [id number] [address] [place] [address], [place] [address] Aug, [facility] [address] [id number] [address] [place] [address], [place] [address] July, [facility] [address] [id number] [address] [place] [address], [place] [address] July, [facility] [address] [id number] [address] [place] [address], [place] [address] Jun, [facility] [address] [id number] [address] [place] [address], [place] [address] Jun, [facility] [address] [id number] [address] [place] [address], [place] [address] May, [facility] [address] [id number] [address] [place] [address], [place] [address] May, [facility] [address] [id number] [address] [place] [address], [place] [address] Apr, [facility] [address] [id number] [address] [place] [address], [place] [address] Apr, [facility] [address] [id number] [address] [place] [address], [place] [address] Mar, [facility] [address] [id number] [address] [place] [address], [place] [address] Mar, [facility] [address] [id number] [address] [place] [address], [place] [address] Jan, [facility] [address] [id number] [address] [place] [address], [place] [address] Jan, [facility] [address] [id number] [address] [place] [address], [place] [address] Jan, [facility] [address] [id number] [address] [place] [address], [place] [address] Jan, [facility] [address] [id number] [address] [place] [address], [place] [address] Jan, [facility] [address] [id number] [address] [place] [address], [place] [address] Dec, [facility] [address] [id number] [address] [place] [address], [place] [address] Dec, [facility] [address] [id number] [address] [place] [address], [place] [address] Dec, [facility] [address] [id number] [address] [place] [address], [place] [address] Nov, [facility] [address] [address] [id number] [address] [place] [address], [place] [id number] Nov, [facility] [address] [id number] [address] [place] [address], [place] [id number] Sep, [facility] [address] [id number] [address] [place] [id number] Sep, [facility] [address] [id number] [address] [place] [id number] Aug, [facility] [address] [id number] [address] [place] [id number] Aug, [facility] [address] [id number] [place] [id number] July, [facility] [address] [id number] [place] [id number] Jun, [facility] [address] [id number] [place] [id number] Apr, [facility] [address] [id number] [place] [id number] Mar, [facility] [address] [id number] [address] [place] [id number] Mar, [facility] [address] [id number] [place] [id number] Mar, [facility] [address] [facility] [id number] [address] [place] [address] Mar, [facility] [address] [id number] [place] [id number] Feb, [facility] [address] [facility] [id number] [address] [place] [id number] Feb, [facility] [address] [id number] [place] [id number] Feb, [facility] [address] [facility] [id number] [address] [place] [address] Feb, [facility] [address] [id number] [place] [id number] Oct, [facility] [address] [id number] [place] [id number] Oct, [facility] [address] [id number] [place] [id number] July, [facility] [address] [id number] [place] [id number] July, [facility] [address] [id number] [place] [id number] Jun, [facility] [address] [id number] [place] [id number] Jun, [facility] [address] [id number] [place] [id number] Jun, [facility] [address] [id number] [place] [id number] Mar, [facility] [address] [id number] [place] [id number] Mar, [facility] [address] [facility] [id number] [address] [place] [phone] Feb, [facility] [address] [facility] [id number] [address] [place] [phone] Feb, [facility] [address] [id number] [address] [place] [id number] Jan, [facility] [address] [id number] [address] [place] [id number] Jan, [facility] [address] [id number] [address] [place] [id number] Jan, [facility] [address] [id number] [address] [place] [id number] Jan, [facility] [address] [id number] [address] [place] [id number] Jan, [facility] [address] [id number] [address] [place] [id number] Aug, [facility] [address] [id number] [address] [place] [id number] Apr, IMMUNIZATIONS No Known Immunizations SOCIAL HISTORY Never Assessed REASON FOR VISIT Wound F/U-ERIC santillan PLAN OF CARE Activity Details Follow Up 2 Months Reason:chronic pain VITAL SIGNS Height 76 in 2017-09-04 Weight 318.0 lbs 2017-09-04 Temperature 98.4 degrees Fahrenheit 2017-09-04 Heart Rate 100 bpm 2017-09-04 Respiratory Rate 18 2017-09-04 BMI 38.70 kg/m2 2017-09-04 Blood pressure systolic 110 mmHg 2017-09-04 Blood pressure diastolic 80 mmHg 2017-09-04 MEDICATIONS Medication Instructions Dosage Frequency Start Date End Date Duration S tatus Fish Oil 1 gram take 1 capsule by Oral route 3 times per day Sep, Active Aspirin 325 MG Orally Once a day 1 tablet 24h Active Gabapentin 400 mg Orally Three times a day 1 tablet 8h July, 90 days Active Hydrocodone-Acetaminophen 10-325 MG Orally 4 times a day as needed for pain 1 tablet July, 28 days Active Lisinopril 20 MG TAKE ONE TABLET BY MOUTH ONCE DAILY 90 Active Pravastatin Sodium 40 MG TAKE ONE TABLET BY MOUTH ONCE DAILY 90 Active Warfarin Sodium 10 MG TAKE ONE TABLET BY MOUTH ONCE DAILY 90 Active Silvadene 1 % Externally Once a [...]
--- OUTSIDE RECORDS SUMMARY | 2019-11-08 13:09 | XMS REPORT ---
Author Author Zana EDDY Organization [facility] Address [address] [place] [address] Care Team Providers Care Surgery Assistant Name Role Phone SPENCER EDDY Unavailable PROBLEMS Type Condition ICD9-CM Code ATP37-TW Code Onset Dates Condition S tatus SNOMED Code Problem Factor V Leiden D68.51 Active 3070 03796 Problem Post-phlebitic syndrome I87.009 Active 77403360 Problem Anticoagulant long-term use Z79.01 Ac tive 130114534 Problem Essential hypertension I10 Active 64873450 Problem Other chronic pain G89.29 Active 8 1253213 Problem Venous stasis ulcers, left I83.029 Act ozzy 535260435 Problem 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 64107388 Problem Congenital single kidney Q60.0 Activ e 94927921 Problem Venous anomaly Q27.9 Active 17120 4003 Problem Pure hypercholesterolemia E78.00 Acti ve 045282070 Problem Chronic prescription opiate use Z79.899 Active 887922995 ALLERGIES No Information ENCOUNTERS Encounter Location Date Diagnosis [facility] [address] [facility] [id number] [address] [place] [phone] Nov, [facility] [address] [facility] [id number] [address] [place] [phone] 14 Oct, 2017 Other chronic pain G89.29 [facility] [address] [facility] [id number] [address] [place] [phone] Sep, Other chronic pain G89.29 [facility] [address] [facility] [id number] [address] [place] [id number] 18 Aug, 2017 Other chronic pain G89.29 [facility] [address] [facility] [id number] [address] [place] [id number] 11 Aug, 2017 Venous stasis ulcers, left I 83.029 [facility] [address] [facility] [id number] [address] [place] [address] July, Other chronic pain G89.29 [place] [address] [facility] [id number] [address] [place] [phone] July, Venous stasis ulcers, left I 83.029 and Snoring R06.83 [place] [address] [facility] [id number] [address] [place] [address] Jun, Idiopathic chronic gout of m ultiple sites without tophus M1A.09X0 [place] [address] [facility] [id number] [address] [place] [phone] Jun, Acute renal insufficiency N2 8.9 [place] [address] [facility] [id number] [address] [place] [id number] Jun, Other chronic pain G89.29 [place] [address] [facility] [id number] [address] [place] [address] Jun, Acute renal insufficiency N2 8.[id number] [place] [address] [id number] Jun, Idiopathic chronic gout of multiple site s without tophus M1A.09X0 ; Essential hypertension I10 and Anticoagulant long-term use Z79.01 [place] [address] [facility] [id number] [address] [place] [address] Jun, Anticoagulant long-term use Z79.01 and Essential hypertension I10 [place] [address] [facility] [id number] [address] [place] [phone] May, Idiopathic chronic gout of m ultiple sites without tophus M1A.09X0 [place] [address] [facility] [id number] [address] [place] [phone] May, [place] [address] [facility] [id number] [address] [place] [phone] May, Essential hypertension I10 ; Pure hypercholesterolemia E78.00 ; Anticoagulant long-term use Z79.01 and Idiopathic chronic gout of multiple sites without tophus M1A.09X0 [place] [address] [facility] [id number] [address] [place] [phone] May, Other chronic pain G89.29 [place] [address] [facility] [id number] [address] [place] [address] May, Anticoagulant long-term use Z79.01 [place] [address] [facility] [id number] [address] [place] [address] May, Chronic prescription opiate use Z79.899 ; Other chronic pain G89.29 ; Essential hypertension I10 ; Factor V Leiden D68.51 ; Anticoagulant long-term use Z79.01 ; Pure hypercholesterolemia E78.00 ; Venous stasis ulcers, left I83.029 ; Idiopathic chronic gout of multiple sites without tophus M1A.09X0 and Cellulitis of left lower extremity L03.116 [place] [address] [facility] [id number] [address] [place] [phone] Apr, Other chronic pain G89.29 [place] [address] [facility] [id number] [address] [place] [address] Mar, Other chronic pain G89.29 [place] [address] [facility] [id number] [address] [place] [address] Mar, Factor V Leiden D68.51 ; Pur e hypercholesterolemia E78.00 and Other chronic pain G89.29 [place] [address] [facility] [id number] [address] [place] [address] Feb, Other chronic pain G89.29 [place] [address] [facility] [id number] [address] [place] [phone] Jan, Idiopathic chronic gout of m ultiple sites without tophus M1A.09X0 [place] [address] [facility] [id number] [address] [place] [address] Jan, Other chronic pain G89.29 [place] [address] [place] [id number] [address] [place] [address] Dec, Anticoagulant long-term use Z79.01 ; Factor V Leiden D68.51 and Other chronic pain G89.29 [facility] [address] [facility] [id number] [address] [place] [phone] Dec, Other chronic pain G89.29 [place] [address] [facility] [id number] [address] [place] [id number] 13 Nov, 2016 Other chronic pain G89.29 [place] [address] [facility] [id number] [address] [place] [address] Oct, Other chronic pain G89.29 [place] [address] [place] [id number] [address] [place] [address] Sep, Anticoagulant long-term use Z79.01 [place] [address] [place] [id number] [address] [place] [phone] Sep, Chronic prescription opiate use Z79.899 ; Anticoagulant long-term use Z79.01 ; Essential hypertension I10 ; Pure hypercholesterolemia E78.00 ; Factor V Leiden D68.51 ; Venous stasis ulcers, left I83.029 ; Other chronic pain G89.29 and Idiopathic chronic gout of multiple sites without tophus M1A.09X0 [place] [address] [place] [id number] [address] [place] [phone] Aug, Anticoagulant long-term use Z79.01 [place] [address] [facility] [id number] [address] [place] [phone] Aug, Other chronic pain G89.29 [place] [address] [facility] [id number] [address] [place] [phone] Aug, Essential hypertension I10 a nd Factor V Leiden D68.[address] [place] [id number] [place] [address] [id number] 15 Aug, 2016 Acute right ankle pain M25.571 and Tendo nitis of ankle M77.50 [place] [id number] [place] [id number] [address] [place] [phone] Aug, [facility] [address] [id number] [address] [place] [address] July, Other chronic pain G89.29 [facility] [address] [id number] [address] [place] [id number] Jun, Other chronic pain G89.29 [facility] [address] [id number] [address] [place] [address] Jun, Other chronic pain G89.29 [facility] [address] [id number] [address] [place] [phone] Jun, Anticoagulant long-term use Z79.01 [facility] [address] [id number] [address] [place] [phone] May, Other chronic pain G89.29 [facility] [address] [facility] [id number] [address] [place] [id number] May, Anticoagulant long-term use Z79.01 [facility] [address] [id number] [address] [place] [address] May, Other chronic pain G89.29 [facility] [address] [id number] [address] [place] [phone] Apr, Anticoagulant long-term use Z79.01 [facility] [address] [id number] [address] [place] [phone] Apr, Other chronic pain G89.29 [facility] [address] [id number] [address] [place] [phone] Apr, Anticoagulant long-term use Z79.01 and Pure hypercholesterolemia E78.00 [facility] [address] [id number] [address] [place] [phone] Mar, [facility] [address] [facility] [id number] [address] [place] [phone] Mar, Anticoagulant long-term use Z79.01 [facility] [address] [facility] [id number] [address] [place] [id number] 04 Mar, 2016 Other chronic pain G89.29 [facility] [address] [facility] [id number] [address] [place] [phone] 08 Feb, 2016 Essential hypertension I10 ; Chronic prescription opiate use Z79.899 ; Other chronic pain G89.29 ; Screening Z13.9 ; Factor V Leiden D68.51 ; Anticoagulant long-term use Z79.01 ; Venous stasis dermatitis of left lower extremity I83.12 and Pure hypercholesterolemia E78.00 [facility] [address] [id number] [address] [place] [phone] 14 Jan, 2016 Anticoagulant long-term use Z79.01 [facility] [address] [facility] [id number] [address] [place] [phone] 10 Jan, 2016 Anticoagulant long-term use Z79.01 [facility] [address] [facility] [id number] [address] [place] [phone] Jan, [facility] [address] [facility] [id number] [address] [place] [phone] Jan, [facility] [address] [facility] [id number] [address] [place] [phone] Dec, [facility] [address] [facility] [id number] [address] [place] [phone] Nov, [facility] [address] [facility] [id number] [address] [place] [id number] Oct, Anticoagulant long-term use Z79.01 [facility] [address] [facility] [id number] [address] [place] [phone] Oct, [facility] [address] [facility] [id number] [address] [place] [phone] Oct, Anticoagulant long-term use Z79.01 [facility] [address] [facility] [id number] [address] [place] [phone] Sep, [place] [address] [facility] [id number] [address] [place] [phone] Aug, [facility] [address] [facility] [id number] [address] [place] [phone] Aug, Chronic prescription opiate use Z79.899 ; Other chronic pain G89.29 ; Essential hypertension I10 and Pure hypercholesterolemia E78.0 [facility] [address] [facility] [id number] [address] [place] [phone] July, Hyperlipidemia, group D E78. 3 and Anticoagulant long-term use Z79.01 [facility] [address] [facility] [id number] [address] [place] [phone] July, Hyperlipidemia, group D E78. 3 ; Essential hypertension I10 and Factor V Leiden D68.51 [facility] [address] [facility] [id number] [address] [place] [phone] July, Essential hypertension I10 [place] [address] [facility] [id number] [address] [place] [phone] Jun, Hyperlipidemia, group D E78. 3 [facility] [address] [facility] [id number] [address] [place] [address] Jun, Factor V Leiden D68.51 [facility] [address] [facility] [id number] [address] [place] [phone] May, Factor V Leiden D68.51 ; Hyp erlipidemia, group D E78.3 ; Essential hypertension I10 ; Other chronic pain G89.29 and Anticoagulant long-term use Z79.01 [facility] [address] [facility] [id number] [address] [place] [id number] May, Anticoagulant long-term use Z79.01 [facility] [address] [facility] [id number] [address] [place] [phone] May, Anticoagulant long-term use Z79.01 [facility] [address] [facility] [id number] [address] [place] [phone] May, [place] [id number] [facility] [id number] [address] [place] [phone] Apr, [facility] [address] [facility] [id number] [place] [phone] Mar, [facility] [address] [facility] [id number] [address] [place] [phone] Mar, [facility] [address] [place] [id number] [place] [address] Feb, Anticoagulant long-term use Z79.01 [facility] [address] [facility] [id number] [place] [phone] 16 Feb, 2015 Chronic prescription opiate use Z79.899 ; Other chronic pain G89.29 ; Hyperlipidemia, group D E78.3 ; Factor V Leiden D68.51 and Anticoagulant long- term use Z79.01 [place] [address] [place] [id number] [address] [place] [phone] Feb, [facility] [address] [place] [id number] [address] [place] [phone] Jan, [place] [address] [address] Dec, Hyperlipidemia, unspecified E78.5 [place] [address] [place] [id number] [address] [place] [phone] Dec, Cellulitis of left lower ext remity L03.116 ; Venous stasis ulcers, left I83.029 and Factor V Leiden D68.51 [facility] [address] [place] [id number] [address] [place] [address] Dec, Hyperlipidemia 272.4 and Fac tor V Leiden 289.81 [place] [address] [place] [id number] [address] [place] [phone] Dec, [facility] [address] [facility] [id number] [address] [place] [phone] Nov, Factor V Leiden 289.81 [place] [address] [facility] [id number] [address] [place] [phone] Nov, [facility] [address] [facility] [id number] [place] [phone] 08 Nov, 2014 [facility] [address] [facility] [id number] [address] [place] [phone] Nov, [facility] [address] [facility] [id number] [address] [place] [phone] Oct, [facility] [address] [facility] [id number] [address] [place] [phone] Oct, Hyperlipidemia 272.4 ; Chron ic pain disorder 338.4 ; Venous stasis ulcer of left lower extremity 454.0 and Factor V Leiden 289.81 [facility] [address] [place] [id number] [address] [place] [phone] Sep, [facility] [address] [place] [id number] [place] [phone] Sep, [facility] [address] [place] [id number] [address] [place] [phone] Sep, Hyperlipidemia 272.4 and Fac tor V Leiden 289.81 [facility] [address] [place] [id number] [address] [place] [phone] Aug, [facility] [address] [facility] [id number] [address] [place] [phone] Aug, Factor V Leiden 289.81 [facility] [address] [facility] [id number] [address] [place] [phone] July, [facility] [address] [place] [id number] [address] [place] [phone] July, Essential hypertension, fito gn 401.1 ; Factor V Leiden 289.81 ; Chronic pain disorder 338.4 ; Hyperlipidemia 272.4 and Venous stasis ulcer of left lower extremity 454.0 [facility] [id number] [place] [phone] Jun, [facility] [address] [id number] [address] [place] [address], [place] [address] 13 Jun, 2014 [facility] [address] [id number] [address] [place] [address], [place] [address] 13 May, 2014 [facility] [address] [id number] [address] [place] [address], [place] [address] 13 May, 2014 [facility] [address] [id number] [address] [place] [address], [place] [address] 20 Apr, 2014 [facility] [address] [id number] [address] [place] [address], [place] [address] 20 Apr, 2014 [facility] [address] [id number] [address] [place] [address], [place] [address] 18 Apr, 2014 [facility] [address] [id number] [address] [place] [address], [place] [address] 18 Apr, 2014 [facility] [address] [id number] [address] [place] [address], [place] [address] 13 Apr, 2014 [facility] [address] [id number] [address] [place] [address], [place] [address] Apr, [facility] [address] [id number] [address] [place] [address], [place] [address] 15 Mar, 2014 [facility] [address] [id number] [address] [place] [address], [place] [address] Mar, [facility] [address] [id number] [address] [place] [address], [place] [address] Mar, [facility] [address] [id number] [address] [place] [address], [place] [address] Mar, [facility] [address] [id number] [address] [place] [address], [place] [address] Feb, [facility] [address] [id number] [address] [place] [address], [place] [address] Feb, [facility] [address] [id number] [address] [place] [address], [place] [address] Feb, [facility] [address] [id number] [address] [place] [address], [place] [address] Feb, [facility] [address] [id number] [address] [place] [address], [place] [address] Jan, [facility] [address] [id number] [address] [place] [address], [place] [address] Jan, [facility] [address] [id number] [address] [place] [address], [place] [address] Jan, [facility] [address] [id number] [address] [place] [address], [place] [address] Jan, [facility] [address] [id number] [address] [place] [address], [place] [address] Jan, [facility] [address] [id number] [address] [place] [address], [place] [address] Jan, [facility] [address] [id number] [address] [place] [address], [place] [address] Dec, [facility] [address] [id number] [address] [place] [address], [place] [address] Dec, [facility] [address] [id number] [address] [place] [address], [place] [address] Oct, [facility] [address] [id number] [address] [place] [address], [place] [address] Oct, [facility] [address] [id number] [address] [place] [address], [place] [address] Sep, [facility] [address] [id number] [address] [place] [address], [place] [address] Sep, [facility] [address] [id number] [address] [place] [address], [place] [address] Sep, [facility] [address] [id number] [address] [place] [address], [place] [phone] Sep, [facility] [address] [id number] [address] [place] [address], [place] [address] Aug, [facility] [address] [id number] [address] [place] [address], [place] [address] Aug, [facility] [address] [id number] [address] [place] [address], [place] [id number] July, [facility] [address] [id number] [address] [place] [address], [place] [id number] July, [facility] [address] [id number] [address] [place] [address], [place] [address] Jun, [facility] [address] [id number] [address] [place] [address], [place] [address] Jun, [facility] [address] [id number] [address] [place] [address], [place] [address] May, [facility] [address] [id number] [address] [place] [address], [place] [address] May, [facility] [address] [id number] [address] [place] [address], [place] [address] Apr, [facility] [address] [id number] [address] [place] [address], [place] [address] Apr, [facility] [address] [id number] [address] [place] [address], [place] [address] Mar, [facility] [address] [id number] [address] [place] [address], [place] [address] Mar, [facility] [address] [id number] [address] [place] [address], [place] [address] Jan, [facility] [address] [id number] [address] [place] [address], [place] [address] Jan, [facility] [address] [id number] [address] [place] [address], [place] [address] Jan, [facility] [address] [id number] [address] [place] [address], [place] [address] Jan, [facility] [address] [id number] [address] [place] [address], [place] [address] Jan, [facility] [address] [id number] [address] [place] [address], [place] [address] Dec, [facility] [address] [id number] [address] [place] [address], [place] [address] Dec, [facility] [address] [id number] [address] [place] [address], [place] [address] Dec, [facility] [address] [id number] [address] [place] [address], [place] [id number] Nov, [facility] [address] [id number] [address] [place] [address], [place] [id number] Nov, [facility] [address] [id number] [address] [place] [address], [place] [id number] Sep, [facility] [address] [id number] [address] [place] [address], [place] [id number] Sep, [facility] [address] [id number] [address] [place] [address], [place] [id number] Aug, [facility] [address] [id number] [address] [place] [address], [place] [address] Aug, [facility] [address] [id number] [place] [id number] July, [facility] [address] [id number] [place] [id number] Jun, [facility] [address] [id number] [place] [id number] Apr, [facility] [address] [id number] [place] [id number] Mar, [facility] [address] [id number] [address] [place] [address], [place] [id number] Mar, [facility] [address] [id number] [place] [id number] Mar, [facility] [address] [facility] [id number] [address] [place] [id number] Mar, [facility] [address] [id number] [place] [id number] Feb, [facility] [address] [facility] [id number] [address] [place] [id number] Feb, [facility] [address] [id number] [place] [id number] Feb, [facility] [address] [facility] [id number] [address] [place] [id number] Feb, [facility] [address] [id number] [place] [id number] Oct, [facility] [address] [id number] [place] [id number] Oct, [facility] [address] [id number] [place] [id number] July, [facility] [address] [id number] [place] [id number] July, [facility] [address] [id number] [place] [id number] Jun, [facility] [address] [id number] [place] [id number] Jun, [facility] [address] [id number] [place] [id number] Jun, [facility] [address] [id number] [place] [id number] Mar, [facility] [address] [id number] [place] [id number] Mar, [facility] [address] [facility] [id number] [address] [place] [id number] Feb, [facility] [address] [facility] [id number] [address] [place] [id number] Feb, [facility] [address] [facility] [id number] [address] [place] [id number] Jan, [facility] [address] [facility] [id number] [address] [place] [id number] Jan, [facility] [address] [facility] [id number] [address] [place] [id number] Jan, [facility] [address] [facility] [id number] [address] [place] [phone] Jan, [facility] [address] [facility] [id number] [address] [place] [id number] Jan, [facility] [address] [facility] [id number] [address] [place] [id number] Aug, [facility] [address] [facility] [id number] [address] [place] [phone] Apr, IMMUNIZATIONS No Known Immunizations SOCIAL HISTORY Never Assessed REASON FOR VISIT Controlled Medication Refill PLAN OF CARE VITAL SIGNS MEDICATIONS Medication Instructions Dosage Frequency Start Date End Date Duration S tatus Hydrocodone-Acetaminophen 10-325 MG Orally 4 times a day as needed for pain 1 tablet July, 28 days Active RESULTS No Results PROCEDURES [...]
--- OUTSIDE RECORDS SUMMARY | 2019-11-08 13:09 | XMS REPORT ---
Author Author Zana EDDY Organization [facility] Address [address] [place] [address] Care Team Providers Care Sap Bpc Developer Name Role Phone SPENCER EDDY Unavailable PROBLEMS Type Condition ICD9-CM Code LUZ59-GE Code Onset Dates Condition S tatus SNOMED Code Problem Factor V Leiden D68.51 Active 3070 23782 Problem Post-phlebitic syndrome I87.009 Active 46817901 Problem Anticoagulant long-term use Z79.01 Ac tive 731781325 Problem Essential hypertension I10 Active 56258612 Problem Other chronic pain G89.29 Active 8 8481756 Problem Venous stasis ulcers, left I83.029 Act ozzy 472777076 Problem 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 37356203 Problem Congenital single kidney Q60.0 Activ e 49091095 Problem Venous anomaly Q27.9 Active 69894 4003 Problem Pure hypercholesterolemia E78.00 Acti ve 152722465 Problem Chronic prescription opiate use Z79.899 Active [id number] ALLERGIES No Information ENCOUNTERS Encounter Location Date Diagnosis [facility] [address] [facility] [id number] [address] [place] [address] Nov, [facility] [address] [facility] [id number] [address] [place] [address] 14 Oct, 2017 Other chronic pain G89.29 [facility] [address] [facility] [id number] [address] [place] [address] Sep, Other chronic pain G89.29 [facility] [address] [facility] [id number] [address] [place] [address] 18 Aug, 2017 Other chronic pain G89.29 [facility] [address] [facility] [id number] [address] [place] [address] 11 Aug, 2017 Venous stasis ulcers, left I 83.029 [facility] [address] [facility] [id number] [address] [place] [address] July, Other chronic pain G89.29 [place] [address] [facility] [id number] [address] [place] [address] July, Venous stasis ulcers, left I 83.029 and Snoring R06.83 [place] [address] [facility] [id number] [address] [place] [address] Jun, Idiopathic chronic gout of m ultiple sites without tophus M1A.09X0 [place] [address] [facility] [id number] [address] [place] [address] Jun, Acute renal insufficiency N2 8.9 [place] [address] [facility] [id number] [address] [place] [address] Jun, Other chronic pain G89.29 [place] [address] [facility] [id number] [address] [place] [address] Jun, Acute renal insufficiency N2 8.[id number] [place] [id number] Jun, Idiopathic chronic gout of multiple site s without tophus M1A.09X0 ; Essential hypertension I10 and Anticoagulant long-term use Z79.01 [place] [address] [facility] [id number] [address] [place] [address] Jun, Anticoagulant long-term use Z79.01 and Essential hypertension I10 [place] [address] [facility] [id number] [address] [place] [address] May, Idiopathic chronic gout of m ultiple sites without tophus M1A.09X0 [place] [address] [facility] [id number] [address] [place] [address] May, [place] [address] [facility] [id number] [address] [place] [address] May, Essential hypertension I10 ; Pure hypercholesterolemia E78.00 ; Anticoagulant long-term use Z79.01 and Idiopathic chronic gout of multiple sites without tophus M1A.09X0 [place] [address] [facility] [id number] [address] [place] [address] May, Other chronic pain G89.29 [place] [address] [facility] [id number] [address] [place] [address] May, Anticoagulant long-term use Z79.01 [place] [address] [facility] [id number] [address] [place] [address] May, Chronic prescription opiate use Z79.899 ; Other chronic pain G89.29 ; Essential hypertension I10 ; Factor V Leiden D68.51 ; Anticoagulant long-term use Z79.01 ; Pure hypercholesterolemia E78.00 ; Venous stasis ulcers, left I83.029 ; Idiopathic chronic gout of multiple sites without tophus M1A.09X0 and Cellulitis of left lower extremity L03.116 [place] [address] [facility] [id number] [address] [place] [address] Apr, Other chronic pain G89.29 [place] [address] [facility] [id number] [address] [place] [address] Mar, Other chronic pain G89.29 [place] [address] [facility] [id number] [address] [place] [address] Mar, Factor V Leiden D68.51 ; Pur e hypercholesterolemia E78.00 and Other chronic pain G89.29 [place] [address] [facility] [id number] [address] [place] [address] Feb, Other chronic pain G89.29 [place] [address] [facility] [id number] [address] [place] [address] Jan, Idiopathic chronic gout of m ultiple sites without tophus M1A.09X0 [place] [address] [facility] [id number] [address] [place] [address] Jan, Other chronic pain G89.29 [place] [address] [place] [id number] [address] [place] [address] Dec, Anticoagulant long-term use Z79.01 ; Factor V Leiden D68.51 and Other chronic pain G89.29 [facility] [address] [facility] [id number] [address] [place] [address] Dec, Other chronic pain G89.29 [place] [address] [facility] [id number] [address] [place] [address] 13 Nov, 2016 Other chronic pain G89.29 [place] [address] [facility] [id number] [address] [place] [address] Oct, Other chronic pain G89.29 [place] [address] [place] [id number] [address] [place] [address] Sep, Anticoagulant long-term use Z79.01 [place] [address] [place] [id number] [address] [place] [address] Sep, Chronic prescription opiate use Z79.899 ; Anticoagulant long-term use Z79.01 ; Essential hypertension I10 ; Pure hypercholesterolemia E78.00 ; Factor V Leiden D68.51 ; Venous stasis ulcers, left I83.029 ; Other chronic pain G89.29 and Idiopathic chronic gout of multiple sites without tophus M1A.09X0 [place] [address] [place] [id number] [address] [place] [address] Aug, Anticoagulant long-term use Z79.01 [place] [address] [facility] [id number] [address] [place] [address] Aug, Other chronic pain G89.29 [place] [address] [facility] [id number] [address] [place] [address] Aug, Essential hypertension I10 a nd Factor V Leiden D68.[address] [place] [id number] [place] [id number] 15 Aug, 2016 Acute right ankle pain M25.571 and Tendo nitis of ankle M77.50 [place] [address] [place] [id number] [address] [place] [address] Aug, [facility] [address] [id number] [address] [place] [address] July, Other chronic pain G89.29 [facility] [address] [id number] [address] [place] [address] Jun, Other chronic pain G89.29 [facility] [address] [id number] [address] [place] [address] Jun, Other chronic pain G89.29 [facility] [address] [id number] [address] [place] [address] Jun, Anticoagulant long-term use Z79.01 [facility] [address] [id number] [address] [place] [address] May, Other chronic pain G89.29 [facility] [address] [facility] [id number] [address] [place] [address] May, Anticoagulant long-term use Z79.01 [facility] [address] [id number] [address] [place] [address] May, Other chronic pain G89.29 [facility] [address] [id number] [address] [place] [address] Apr, Anticoagulant long-term use Z79.01 [facility] [address] [id number] [address] [place] [address] Apr, Other chronic pain G89.29 [facility] [address] [id number] [address] [place] [address] Apr, Anticoagulant long-term use Z79.01 and Pure hypercholesterolemia E78.00 [facility] [address] [id number] [address] [place] [address] Mar, [facility] [address] [facility] [id number] [address] [place] [address] Mar, Anticoagulant long-term use Z79.01 [facility] [address] [facility] [id number] [address] [place] [address] 04 Mar, 2016 Other chronic pain G89.29 [facility] [address] [facility] [id number] [address] [place] [address] 08 Feb, 2016 Essential hypertension I10 ; Chronic prescription opiate use Z79.899 ; Other chronic pain G89.29 ; Screening Z13.9 ; Factor V Leiden D68.51 ; Anticoagulant long-term use Z79.01 ; Venous stasis dermatitis of left lower extremity I83.12 and Pure hypercholesterolemia E78.00 [facility] [address] [id number] [address] [place] [address] 14 Jan, 2016 Anticoagulant long-term use Z79.01 [facility] [address] [facility] [id number] [address] [place] [address] 10 Jan, 2016 Anticoagulant long-term use Z79.01 [facility] [address] [facility] [id number] [address] [place] [address] Jan, [facility] [address] [facility] [id number] [address] [place] [address] Jan, [facility] [address] [facility] [id number] [address] [place] [address] Dec, [facility] [address] [facility] [id number] [address] [place] [address] Nov, [facility] [address] [facility] [id number] [address] [place] [address] Oct, Anticoagulant long-term use Z79.01 [facility] [address] [facility] [id number] [address] [place] [address] Oct, [facility] [address] [facility] [id number] [address] [place] [address] Oct, Anticoagulant long-term use Z79.01 [facility] [address] [facility] [id number] [address] [place] [address] Sep, [place] [address] [facility] [id number] [address] [place] [address] Aug, [facility] [address] [facility] [id number] [address] [place] [address] Aug, Chronic prescription opiate use Z79.899 ; Other chronic pain G89.29 ; Essential hypertension I10 and Pure hypercholesterolemia E78.0 [facility] [address] [facility] [id number] [address] [place] [address] July, Hyperlipidemia, group D E78. 3 and Anticoagulant long-term use Z79.01 [facility] [address] [facility] [id number] [address] [place] [address] July, Hyperlipidemia, group D E78. 3 ; Essential hypertension I10 and Factor V Leiden D68.51 [facility] [address] [facility] [id number] [address] [place] [address] July, Essential hypertension I10 [place] [address] [facility] [id number] [address] [place] [address] Jun, Hyperlipidemia, group D E78. 3 [facility] [address] [facility] [id number] [address] [place] [address] Jun, Factor V Leiden D68.51 [facility] [address] [facility] [id number] [address] [place] [address] May, Factor V Leiden D68.51 ; Hyp erlipidemia, group D E78.3 ; Essential hypertension I10 ; Other chronic pain G89.29 and Anticoagulant long-term use Z79.01 [facility] [address] [facility] [id number] [address] [place] [address] May, Anticoagulant long-term use Z79.01 [facility] [address] [facility] [id number] [address] [place] [address] May, Anticoagulant long-term use Z79.01 [facility] [address] [facility] [id number] [address] [place] [address] May, [place] [address] [facility] [id number] [address] [place] [address] Apr, [facility] [address] [facility] [id number] [place] [address] Mar, [facility] [address] [facility] [id number] [address] [place] [address] Mar, [facility] [address] [place] [id number] [place] [address] Feb, Anticoagulant long-term use Z79.01 [facility] [address] [facility] [id number] [place] [address] 16 Feb, 2015 Chronic prescription opiate use Z79.899 ; Other chronic pain G89.29 ; Hyperlipidemia, group D E78.3 ; Factor V Leiden D68.51 and Anticoagulant long- term use Z79.01 [place] [address] [place] [id number] [address] [place] [address] Feb, [facility] [address] [place] [id number] [address] [place] [address] Jan, [place] [address] [address] Dec, Hyperlipidemia, unspecified E78.5 [place] [address] [place] [id number] [address] [place] [address] Dec, Cellulitis of left lower ext remity L03.116 ; Venous stasis ulcers, left I83.029 and Factor V Leiden D68.51 [facility] [address] [place] [id number] [address] [place] [address] Dec, Hyperlipidemia 272.4 and Fac tor V Leiden 289.81 [place] [address] [place] [id number] [address] [place] [address] Dec, [facility] [address] [facility] [id number] [address] [place] [address] Nov, Factor V Leiden 289.81 [place] [address] [facility] [id number] [address] [place] [address] Nov, [facility] [address] [facility] [id number] [place] [address] 08 Nov, 2014 [facility] [address] [facility] [id number] [address] [place] [address] Nov, [facility] [address] [facility] [id number] [address] [place] [address] Oct, [facility] [address] [facility] [id number] [address] [place] [address] Oct, Hyperlipidemia 272.4 ; Chron ic pain disorder 338.4 ; Venous stasis ulcer of left lower extremity 454.0 and Factor V Leiden 289.81 [facility] [address] [place] [id number] [address] [place] [address] Sep, [facility] [address] [place] [id number] [place] [address] Sep, [facility] [address] [place] [id number] [address] [place] [address] Sep, Hyperlipidemia 272.4 and Fac tor V Leiden 289.81 [facility] [address] [place] [id number] [address] [place] [address] Aug, [facility] [address] [facility] [id number] [address] [place] [address] Aug, Factor V Leiden 289.81 [facility] [address] [facility] [id number] [address] [place] [address] July, [facility] [address] [place] [id number] [address] [place] [address] July, Essential hypertension, fito gn 401.1 ; Factor V Leiden 289.81 ; Chronic pain disorder 338.4 ; Hyperlipidemia 272.4 and Venous stasis ulcer of left lower extremity 454.0 [facility] [id number] [place] [address] Jun, [facility] [address] [id number] [address] [place] [address], [place] [address] 13 Jun, 2014 [facility] [address] [id number] [address] [place] [address], [place] [address] 13 May, 2014 [facility] [address] [id number] [address] [place] [address], [place] [address] 13 May, 2014 [facility] [address] [id number] [address] [place] [address], [place] [address] 20 Apr, 2014 [facility] [address] [id number] [address] [place] [address], [place] [address] 20 Apr, 2014 [facility] [address] [id number] [address] [place] [address], [place] [address] 18 Apr, 2014 [facility] [address] [id number] [address] [place] [address], [place] [address] 18 Apr, 2014 [facility] [address] [id number] [address] [place] [address], [place] [address] 13 Apr, 2014 [facility] [address] [id number] [address] [place] [address], [place] [address] Apr, [facility] [address] [id number] [address] [place] [address], [place] [address] 15 Mar, 2014 [facility] [address] [id number] [address] [place] [address], [place] [address] Mar, [facility] [address] [id number] [address] [place] [address], [place] [address] Mar, [facility] [address] [id number] [address] [place] [address], [place] [address] Mar, [facility] [address] [id number] [address] [place] [address], [place] [address] Feb, [facility] [address] [id number] [address] [place] [address], [place] [address] Feb, [facility] [address] [id number] [address] [place] [address], [place] [address] Feb, [facility] [address] [id number] [address] [place] [address], [place] [address] Feb, [facility] [address] [id number] [address] [place] [address], [place] [address] Jan, [facility] [address] [id number] [address] [place] [address], [place] [address] Jan, [facility] [address] [id number] [address] [place] [address], [place] [address] Jan, [facility] [address] [id number] [address] [place] [address], [place] [address] Jan, [facility] [address] [id number] [address] [place] [address], [place] [address] Jan, [facility] [address] [id number] [address] [place] [address], [place] [address] Jan, [facility] [address] [id number] [address] [place] [address], [place] [address] Dec, [facility] [address] [id number] [address] [place] [address], [place] [address] Dec, [facility] [address] [id number] [address] [place] [address], [place] [address] Oct, [facility] [address] [id number] [address] [place] [address], [place] [address] Oct, [facility] [address] [id number] [address] [place] [address], [place] [address] Sep, [facility] [address] [id number] [address] [place] [address], [place] [address] Sep, [facility] [address] [id number] [address] [place] [address], [place] [address] Sep, [facility] [address] [id number] [address] [place] [address], [place] [address] Sep, [facility] [address] [id number] [address] [place] [address], [place] [address] Aug, [facility] [address] [id number] [address] [place] [address], [place] [address] Aug, [facility] [address] [id number] [address] [place] [address], [place] [address] July, [facility] [address] [id number] [address] [place] [address], [place] [address] July, [facility] [address] [id number] [address] [place] [address], [place] [address] Jun, [facility] [address] [id number] [address] [place] [address], [place] [address] Jun, [facility] [address] [id number] [address] [place] [address], [place] [address] May, [facility] [address] [id number] [address] [place] [address], [place] [address] May, [facility] [address] [id number] [address] [place] [address], [place] [address] Apr, [facility] [address] [id number] [address] [place] [address], [place] [address] Apr, [facility] [address] [id number] [address] [place] [address], [place] [address] Mar, [facility] [address] [id number] [address] [place] [address], [place] [address] Mar, [facility] [address] [id number] [address] [place] [address], [place] [address] Jan, [facility] [address] [id number] [address] [place] [address], [place] [address] Jan, [facility] [address] [id number] [address] [place] [address], [place] [address] Jan, [facility] [address] [id number] [address] [place] [address], [place] [address] Jan, [facility] [address] [id number] [address] [place] [address], [place] [address] Jan, [facility] [address] [id number] [address] [place] [address], [place] [address] Dec, [facility] [address] [id number] [address] [place] [address], [place] [address] Dec, [facility] [address] [id number] [address] [place] [address], [place] [address] Dec, [facility] [address] [id number] [address] [place] [address], [place] [address] Nov, [facility] [address] [id number] [address] [place] [address], [place] [address] Nov, [facility] [address] [id number] [address] [place] [address], [place] [address] Sep, [facility] [address] [id number] [address] [place] [address], [place] [address] Sep, [facility] [address] [id number] [address] [place] [address], [place] [address] Aug, [facility] [address] [id number] [address] [place] [address], [place] [address] Aug, [facility] [address] [id number] [place] [id number] July, [facility] [address] [id number] [place] [id number] Jun, [facility] [address] [id number] [place] [id number] Apr, [facility] [address] [id number] [place] [id number] Mar, [facility] [address] [id number] [address] [place] [address], [place] [address] Mar, [facility] [address] [id number] [place] [id number] Mar, [facility] [address] [facility] [id number] [address] [place] [address] Mar, [facility] [address] [id number] [place] [id number] Feb, [facility] [address] [facility] [id number] [address] [place] [address] Feb, [facility] [address] [id number] [place] [id number] Feb, [facility] [address] [facility] [id number] [address] [place] [address] Feb, [facility] [address] [id number] [place] [id number] Oct, [facility] [address] [id number] [place] [id number] Oct, [facility] [address] [id number] [place] [id number] July, [facility] [address] [id number] [place] S [id number] July, [facility] [address] [id number] [place] [id number] Jun, [facility] [address] [id number] [place] [id number] Jun, [facility] [address] [id number] [place] [id number] Jun, [facility] [address] [id number] [place] [id number] Mar, [facility] [address] [id number] [place] [id number] Mar, [facility] [address] [facility] [id number] [address] [place] [id number] Feb, [facility] [address] [facility] [id number] [address] [place] [id number] Feb, [facility] [address] [facility] [id number] [address] [place] [phone] Jan, [facility] [address] [facility] [id number] [address] [place] [phone] Jan, [facility] [address] [facility] [id number] [address] [place] [phone] Jan, [facility] [address] [facility] [id number] [address] [place] [phone] Jan, [facility] [address] [facility] [id number] [address] [place] [phone] Jan, [facility] [address] [facility] [id number] [address] [place] [id number] Aug, [facility] [address] [facility] [id number] [address] [place] [id number] Apr, IMMUNIZATIONS No Known Immunizations SOCIAL HISTORY Never Assessed REASON FOR VISIT Controlled Med Refill 09/13 PLAN OF CARE VITAL SIGNS MEDICATIONS Medication Instructions Dosage Frequency Start Date End Date Duration S tatus Hydrocodone-Acetaminophen 10-325 MG Orally 4 times a day as needed for pain 1 tablet Aug, 28 days Active RESULTS No Results PROCEDURES [...]
--- OUTSIDE RECORDS SUMMARY | 2019-11-08 13:10 | XMS REPORT ---
Author Author Zana ORTIZ Organization [facility] Address [address] [place] [address] Care Team Providers Care It Intern Name Role Phone DIANADAVIDAVANI Unavailable PROBLEMS Type Condition ICD9-CM Code CYZ46-XU Code Onset Dates Condition S tatus SNOMED Code Problem Factor V Leiden D68.51 Active 3070 67578 Problem Post-phlebitic syndrome I87.009 Active 86997006 Problem Anticoagulant long-term use Z79.01 Ac tive 362178471 Problem Essential hypertension I10 Active 12845968 Problem Other chronic pain G89.29 Active 8 1129911 Problem Venous stasis ulcers, left I83.029 Act ozzy 152294513 Problem 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 70334988 Problem Congenital single kidney Q60.0 Activ e 90173521 Problem Venous anomaly Q27.9 Active 33695 4003 Problem Pure hypercholesterolemia E78.00 Acti ve 321806513 Problem Chronic prescription opiate use Z79.899 Active 433449787 ALLERGIES Substance Reaction Event Type Date Status Tetanus Unknown Drug Allergy July, Active Morphine Sulfate Unknown Drug Allergy July, Active Amoxicillin Unknown Drug Allergy July, Active ENCOUNTERS Encounter Location Date Diagnosis [facility] [address] [facility] [id number] [address] [place] [address] Nov, [facility] [address] [facility] [id number] [address] [place] [address] Oct, [facility] [address] [facility] [id number] [address] [place] [address] Sep, Other chronic pain G89.29 [facility] [address] [facility] [id number] [address] [place] [address] 18 Aug, 2017 Other chronic pain G89.29 [facility] [address] [place] [id number] [address] [place] [address] Aug, Venous stasis ulcers, left I 83.029 [facility] [address] [facility] [id number] [address] [place] [address] July, Other chronic pain G89.29 [facility] [address] [facility] [id number] [address] [place] [address] July, Venous stasis ulcers, left I 83.029 and Snoring R06.83 [facility] [address] [facility] [id number] [address] [place] [address] Jun, Idiopathic chronic gout of m ultiple sites without tophus M1A.09X0 [place] [address] [facility] [id number] [address] [place] [address] Jun, Acute renal insufficiency N2 8.9 [facility] [address] [facility] [id number] [address] [place] [address] Jun, Other chronic pain G89.29 [facility] [address] [facility] [id number] [address] [place] [address] Jun, Acute renal insufficiency N2 8.[address] [place] [id number] [place] [address] [id number] Jun, Idiopathic chronic gout of multiple site s without tophus M1A.09X0 ; Essential hypertension I10 and Anticoagulant long-term use Z79.01 [place] [address] [facility] [id number] [address] [place] [address] Jun, Anticoagulant long-term use Z79.01 and Essential hypertension I10 [place] [address] [facility] [id number] [address] [place] [address] May, Idiopathic chronic gout of m ultiple sites without tophus M1A.09X0 [facility] [address] [facility] [id number] [address] [place] [address] May, [facility] [address] [facility] [id number] [address] [place] [address] May, Essential hypertension I10 ; Pure hypercholesterolemia E78.00 ; Anticoagulant long-term use Z79.01 and Idiopathic chronic gout of multiple sites without tophus M1A.09X0 [place] [address] [facility] [id number] [address] [place] [address] May, Other chronic pain G89.29 [place] [address] [facility] [id number] [address] [place] [address] May, Anticoagulant long-term use Z79.01 [place] [address] [facility] [id number] [address] [place] [address] May, Chronic prescription opiate use Z79.899 ; Other chronic pain G89.29 ; Essential hypertension I10 ; Factor V Leiden D68.51 ; Anticoagulant long-term use Z79.01 ; Pure hypercholesterolemia E78.00 ; Venous stasis ulcers, left I83.029 ; Idiopathic chronic gout of multiple sites without tophus M1A.09X0 and Cellulitis of left lower extremity L03.116 [place] [address] [facility] [id number] [address] [place] [address] Apr, Other chronic pain G89.29 [place] [address] [facility] [id number] [address] [place] [address] Mar, Other chronic pain G89.29 [place] [address] [facility] [id number] [address] [place] [address] Mar, Factor V Leiden D68.51 ; Pur e hypercholesterolemia E78.00 and Other chronic pain G89.29 [place] [address] [facility] [id number] [address] [place] [address] Feb, Other chronic pain G89.29 [place] [address] [facility] [id number] [address] [place] [address] Jan, Idiopathic chronic gout of m ultiple sites without tophus M1A.09X0 [place] [address] [facility] [id number] [address] [place] [address] Jan, Other chronic pain G89.29 [facility] [address] [facility] [id number] [address] [place] [address] Dec, Anticoagulant long-term use Z79.01 ; Factor V Leiden D68.51 and Other chronic pain G89.29 [facility] [address] [facility] [id number] [address] [place] [address] Dec, Other chronic pain G89.29 [facility] [address] [facility] [id number] [address] [place] [address] 13 Nov, 2016 Other chronic pain G89.29 [place] [address] [facility] [id number] [address] [place] [address] Oct, Other chronic pain G89.29 [place] [address] [facility] [id number] [address] [place] [address] Sep, Anticoagulant long-term use Z79.01 [place] [address] [facility] [id number] [address] [place] [address] Sep, Chronic prescription opiate use Z79.899 ; Anticoagulant long-term use Z79.01 ; Essential hypertension I10 ; Pure hypercholesterolemia E78.00 ; Factor V Leiden D68.51 ; Venous stasis ulcers, left I83.029 ; Other chronic pain G89.29 and Idiopathic chronic gout of multiple sites without tophus M1A.09X0 [place] [address] [facility] [id number] [address] [place] [address] Aug, Anticoagulant long-term use Z79.01 [place] [address] [facility] [id number] [address] [place] [address] Aug, Other chronic pain G89.29 [place] [address] [facility] [id number] [address] [place] [address] Aug, Essential hypertension I10 a nd Factor V Leiden D68.[address] [place] [id number] [place] [address] [id number] 15 Jose, 2017 Acute right ankle pain M25.571 and Tendo nitis of ankle M77.50 [facility] [address] [id number] [address] [place] [address] Aug, [facility] [address] [id number] [address] [place] [address] July, Other chronic pain G89.29 [facility] [address] [id number] [address] [place] [address] Jun, Other chronic pain G89.29 [facility] [address] [id number] [address] [place] [address] Jun, Other chronic pain G89.29 [facility] [address] [id number] [address] [place] [address] Jun, Anticoagulant long-term use Z79.01 [facility] [address] [id number] [address] [place] [address] May, Other chronic pain G89.29 [facility] [address] [id number] [address] [place] [address] May, Anticoagulant long-term use Z79.01 [facility] [address] [id number] [address] [place] [address] May, Other chronic pain G89.29 [facility] [address] [id number] [address] [place] [address] Apr, Anticoagulant long-term use Z79.01 [facility] [address] [id number] [address] [place] [address] Apr, Other chronic pain G89.29 [facility] [address] [id number] [address] [place] [address] Apr, Anticoagulant long-term use Z79.01 and Pure hypercholesterolemia E78.00 [facility] [address] [id number] [address] [place] [address] Mar, [facility] [address] [id number] [address] [place] [address] 16 Mar, 2016 Anticoagulant long-term use Z79.01 [facility] [address] [facility] [id number] [address] [place] [address] 04 Mar, 2016 Other chronic pain G89.29 [facility] [address] [place] [id number] [address] [place] [address] 08 Feb, 2016 Essential hypertension I10 ; Chronic prescription opiate use Z79.899 ; Other chronic pain G89.29 ; Screening Z13.9 ; Factor V Leiden D68.51 ; Anticoagulant long-term use Z79.01 ; Venous stasis dermatitis of left lower extremity I83.12 and Pure hypercholesterolemia E78.00 [facility] [address] [facility] [id number] [address] [place] [address] 14 Jan, 2016 Anticoagulant long-term use Z79.01 [facility] [address] [place] [id number] [address] [place] [address] Jan, Anticoagulant long-term use Z79.01 [facility] [address] [facility] [id number] [address] [place] [address] 09 Jan, 2016 [facility] [address] [place] [id number] [address] [place] [address] Jan, [facility] [id number] [place] [address] Dec, [facility] [id number] [place] [address] 14 Nov, 2015 [facility] [address] [facility] [id number] [address] [place] [address] Oct, Anticoagulant long-term use Z79.01 [facility] [address] [facility] [id number] [address] [place] [address] Oct, [facility] [address] [place] [id number] [address] [place] [address] Oct, Anticoagulant long-term use Z79.01 [facility] [address] [place] [id number] [address] [place] [address] Sep, [place] [address] [address] Aug, [place] [address] [address] Aug, Chronic prescription opiate use Z79.899 ; Other chronic pain G89.29 ; Essential hypertension I10 and Pure hypercholesterolemia E78.0 [place] [address] [address] July, Hyperlipidemia, group D E78. 3 and Anticoagulant long-term use Z79.01 [place] [address] [address] July, Hyperlipidemia, group D E78. 3 ; Essential hypertension I10 and Factor V Leiden D68.51 [place] [address] [address] July, Essential hypertension I10 [place] [address] [address] Jun, Hyperlipidemia, group D E78. 3 [place] [address] [address] Jun, Factor V Leiden D68.51 [place] [address] [address] May, Factor V Leiden D68.51 ; Hyp erlipidemia, group D E78.3 ; Essential hypertension I10 ; Other chronic pain G89.29 and Anticoagulant long-term use Z79.01 [place] [address] [place] [id number] [address] [place] [address] May, Anticoagulant long-term use Z79.01 [place] [address] [place] [id number] [address] [place] [address] May, Anticoagulant long-term use Z79.01 [place] [address] [address] May, [facility] [address] [address] Apr, [facility] [address] [address] Mar, [facility] [address] [address] Mar, [facility] [address] [address] Feb, Anticoagulant long-term use Z79.01 [place] [address] [address] 16 Feb, 2015 Chronic prescription opiate use Z79.899 ; Other chronic pain G89.29 ; Hyperlipidemia, group D E78.3 ; Factor V Leiden D68.51 and Anticoagulant long- term use Z79.01 [place] [address] [address] 04 Feb, 2015 [place] [address] [address] Jan, [place] [address] [address] 15 Dec, 2014 Hyperlipidemia, unspecified E78.5 [place] [address] [address] Dec, Cellulitis of left lower ext remity L03.116 ; Venous stasis ulcers, left I83.029 and Factor V Leiden D68.51 [place] [address] [address] 09 Dec, 2014 Hyperlipidemia 272.4 and Fac tor V Leiden 289.81 [place] [address] [address] 07 Dec, 2014 [facility] [address] [place] [address] Nov, Factor V Leiden 289.81 [facility] [address] [address] Nov, [facility] [address] [place] [id number] [place] [address] Nov, [facility] [address] [address] Nov, [facility] [address] [place] [id number] [place] [address] Oct, [facility] [address] [address] Oct, Hyperlipidemia 272.4 ; Chron ic pain disorder 338.4 ; Venous stasis ulcer of left lower extremity 454.0 and Factor V Leiden 289.81 [facility] [address] [address] Sep, [facility] [address] [address] Sep, [facility] [address] [address] Sep, Hyperlipidemia 272.4 and Fac tor V Leiden 289.81 [facility] [address] [address] Aug, [facility] [address] [address] Aug, Factor V Leiden 289.81 [facility] [address] [address] July, [facility] [address] [address] July, Essential hypertension, fito gn 401.1 ; Factor V Leiden 289.81 ; Chronic pain disorder 338.4 ; Hyperlipidemia 272.4 and Venous stasis ulcer of left lower extremity 454.0 [facility] [address] [id number] [address] [place] [address], [place] [address] 14 Jun, 2014 [facility] [address] [id number] [address] [place] [address], [place] [address] 13 Jun, 2014 [facility] [address] [id number] [address] [place] [address], [place] [address] 13 May, 2014 [facility] [address] [id number] [address] [place] [address], [place] [address] May, [facility] [address] [id number] [address] [place] [address], [place] [address] Apr, [facility] [address] [id number] [address] [place] [address], [place] [address] Apr, [facility] [address] [id number] [address] [place] [address], [place] [address] 18 Apr, 2014 [facility] [address] [id number] [address] [place] [address] 18 Apr, 2014 [facility] [address] [id number] [address] [place] [address], [place] [address] Apr, [facility] [address] [id number] [address] [place] [address] Apr, [facility] [address] [id number] [address] [place] [address] Mar, [facility] [address] [id number] [address] [place] [address] Mar, [facility] [address] [id number] [address] [place] [address] Mar, [facility] [address] [id number] [address] [place] [address] Mar, [facility] [address] [id number] [address] [place] [address] Feb, [facility] [address] [id number] [address] [place] [address], [place] [address] 17 Feb, 2014 [facility] [address] [id number] [address] [place] [address], [place] [address] Feb, [facility] [address] [id number] [address] [place] [address], [place] [address] Feb, [facility] [address] [id number] [address] [place] [address], [place] [address] Jan, [facility] [address] [id number] [address] [place] [address], [place] [address] Jan, [facility] [address] [id number] [address] [place] [address], [place] [address] Jan, [facility] [address] [id number] [address] [place] [address], [place] [address] Jan, [facility] [address] [id number] [address] [place] [address], [place] [address] Jan, [facility] [address] [id number] [address] [place] [address], [place] [address] Jan, [facility] [address] [id number] [address] [place] [address], [place] [address] Dec, [facility] [address] [id number] [address] [place] [address], [place] [address] Dec, [facility] [address] [id number] [address] [place] [address], [place] [address] Oct, [facility] [address] [id number] [address] [place] [address], [place] [address] Oct, [facility] [address] [id number] [address] [place] [address], [place] [address] Sep, [facility] [address] [id number] [address] [place] [address], [place] [address] Sep, [facility] [address] [id number] [address] [place] [address], [place] [address] Sep, [facility] [address] [id number] [address] [place] [address], [place] [address] Sep, [facility] [address] [id number] [address] [place] [address], [place] [address] Aug, [facility] [address] [id number] [address] [place] [address], [place] [address] Aug, [facility] [address] [id number] [address] [place] [address], [place] [address] July, [facility] [address] [id number] [address] [place] [address], [place] [address] July, [facility] [address] [id number] [address] [place] [address], [place] [address] Jun, [facility] [address] [id number] [address] [place] [address], [place] [address] Jun, [facility] [address] [id number] [address] [place] [address], [place] [address] May, [facility] [address] [id number] [address] [place] [address], [place] [address] May, [facility] [address] [id number] [address] [place] [address], [place] [address] Apr, [facility] [address] [id number] [address] [place] [address], [place] [address] Apr, [facility] [address] [id number] [address] [place] [address], [place] [address] Mar, [facility] [address] [id number] [address] [place] [address], [place] [address] Mar, [facility] [address] [id number] [address] [place] [address], [place] [address] Jan, [facility] [address] [id number] [address] [place] [address], [place] [address] Jan, [facility] [address] [id number] [address] [place] [address] Jan, [facility] [address] [id number] [address] [place] [address] Jan, [facility] [address] [id number] [address] [place] [address] Jan, [facility] [address] [id number] [address] [place] [address] Dec, [facility] [address] [id number] [address] [place] [address] Dec, [facility] [address] [id number] [address] [place] [address] Dec, [facility] [address] [id number] [address] [place] [address] Nov, [facility] [address] [id number] [address] [place] [id number] Nov, [facility] [address] [id number] [address] [place] [phone] Sep, [facility] [address] [id number] [address] [place] [phone] Sep, [facility] [address] [id number] [address] [place] [id number] Aug, [facility] [address] [id number] [address] [place] [id number] Aug, [facility] [address] [id number] [place] [id number] July, [facility] [address] [id number] [place] [id number] Jun, [facility] [address] [id number] [place] [id number] Apr, [facility] [address] [id number] [place] [id number] Mar, [facility] [address] [id number] [address] [place] [id number] Mar, [facility] [address] [id number] [place] [id number] Mar, [facility] [address] [facility] [id number] [address] [place] [phone] Mar, [facility] [address] [id number] [place] [id number] Feb, [facility] [address] [facility] [id number] [address] [place] [phone] Feb, [facility] [address] [id number] [place] [id number] Feb, [facility] [address] [facility] [id number] [address] [place] [phone] Feb, [facility] [address] [id number] [place] [id number] Oct, [facility] [address] [id number] [place] [id number] Oct, [facility] [address] [id number] [place] [id number] July, [facility] [address] [id number] [place] [id number] July, [facility] [address] [id number] [place] [id number] Jun, [facility] [address] [id number] [place] [id number] Jun, [facility] [address] [id number] [place] [id number] Jun, [facility] [address] [id number] [place] [id number] Mar, [facility] [address] [id number] [place] [id number] Mar, [facility] [address] [facility] [id number] [address] [place] [phone] Feb, [facility] [address] [facility] [id number] [address] [place] [phone] Feb, [facility] [address] [id number] [address] [place] [phone] Jan, [facility] [address] [id number] [address] [place] [id number] Jan, [facility] [address] [id number] [address] [place] [id number] Jan, [facility] [facility] [address] [id number] [address] [place] [phone] Jan, [facility] [address] [id number] [address] [place] [phone] Jan, [facility] [address] [id number] [address] [place] [phone] Aug, [facility] [address] [facility] [id number] [address] [place] [phone] Apr, IMMUNIZATIONS No Known Immunizations SOCIAL HISTORY Never Assessed REASON FOR VISIT Hospital f/u -- justyna ware PLAN OF CARE Activity Details Follow Up 4 Weeks Reason:Wound f/u VITAL SIGNS Height 76 in 2017-08-11 Weight 311.0 lbs 2017-08-11 Temperature 98.0 degrees Fahrenheit 2017-08-11 BMI 37.85 kg/m2 2017-08-11 Blood pressure systolic 142 mmHg 2017-08-11 Blood pressure diastolic 98 mmHg 2017-08-11 MEDICATIONS Medication Instructions Dosage Frequency Start Date End Date Duration S tatus Warfarin Sodium 10 MG TAKE ONE TABLET BY MOUTH ONCE DAILY 90 Active Aspirin 325 MG Orally Once a day 1 tablet 24h Active Gabapentin 400 mg Orally Three times a day 1 tablet 8h July, 90 days Active Lisinopril 20 MG TAKE ONE TABLET BY MOUTH ONCE DAILY 90 Active Silvadene 1 % Externally Once a day 1 application to affected area 24h Active Hydrocodone-Acetaminophen 10-325 MG Orally 4 times a day as needed for pain 1 tablet Jun, 28 days Active Fish Oil 1 gram take 1 capsule by Oral route 3 times per day Sep, Active Pravastatin Sodium 40 MG TAKE ONE TABLET BY MOUTH ONCE DAILY 90 Active RESULTS No Results PROCEDURES No Known [...]
--- OUTSIDE RECORDS SUMMARY | 2019-11-08 13:10 | XMS REPORT ---
Author Author Zana ORTIZ 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 Role Phone DIANADAVIDAVANI Unavailable PROBLEMS Type Condition ICD9-CM Code MAL36-IE Code Onset Dates Condition S tatus SNOMED Code Problem Factor V Leiden D68.51 Active 3070 18905 Problem Post-phlebitic syndrome I87.009 Active 29792897 Problem Anticoagulant long-term use Z79.01 Ac tive 958624514 Problem Essential hypertension I10 Active 34536747 Problem Other chronic pain G89.29 Active 8 8614752 Problem Venous stasis ulcers, left I83.029 Act ozzy 454626272 Problem 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 58768555 Problem Congenital single kidney Q60.0 Activ e 21002036 Problem Venous anomaly Q27.9 Active 09640 4003 Problem Pure hypercholesterolemia E78.00 Acti ve 249521333 Problem Chronic prescription opiate use Z79.899 Active 331424392 ALLERGIES No Information ENCOUNTERS Encounter Location Date Diagnosis [facility] [address] [facility] [id number] [address] [place] [address] Sep, Other chronic pain G89.29 [facility] [address] [facility] [id number] [address] [place] [address] 18 Aug, 2017 Other chronic pain G89.29 [facility] [address] [facility] [id number] [address] [place] [address] 11 Aug, 2017 Venous stasis ulcers, left I 83.029 [facility] [address] [facility] [id number] [address] [place] [address] July, Other chronic pain G89.29 [facility] [address] [facility] [id number] [address] [place] [address] July, Venous stasis ulcers, left I 83.029 and Snoring R06.83 [place] [address] [facility] [id number] [address] [place] [address] Jun, Idiopathic chronic gout of ultiple sites without tophus M1A.09X0 [place] [address] [facility] [id number] [address] [place] [address] Jun, Acute renal insufficiency N2 8.9 [place] [address] [facility] [id number] [address] [place] [address] Jun, Other chronic pain G89.29 [place] [address] [facility] [id number] [address] [place] [address] Jun, Acute renal insufficiency N2 8.[id number] [place] [id number] Jun, Idiopathic chronic gout of multiple site s without tophus M1A.09X0 ; Essential hypertension I10 and Anticoagulant long-term use Z79.01 [place] [address] [facility] [id number] [address] [place] [address] Jun, Anticoagulant long-term use Z79.01 and Essential hypertension I10 [place] [address] [facility] [id number] [address] [place] [address] May, Idiopathic chronic gout of ultiple sites without tophus M1A.09X0 [place] [address] [facility] [id number] [address] [place] [address] May, [place] [address] [facility] [id number] [address] [place] [address] May, Essential hypertension I10 ; Pure hypercholesterolemia E78.00 ; Anticoagulant long-term use Z79.01 and Idiopathic chronic gout of multiple sites without tophus M1A.09X0 [place] [address] [facility] [id number] [address] [place] [address] May, Other chronic pain G89.29 [place] [address] [facility] [id number] [address] [place] [address] May, Anticoagulant long-term use Z79.01 [place] [address] [facility] [id number] [address] [place] [address] May, Chronic prescription opiate use Z79.899 ; Other chronic pain G89.29 ; Essential hypertension I10 ; Factor V Leiden D68.51 ; Anticoagulant long-term use Z79.01 ; Pure hypercholesterolemia E78.00 ; Venous stasis ulcers, left I83.029 ; Idiopathic chronic gout of multiple sites without tophus M1A.09X0 and Cellulitis of left lower extremity L03.116 [place] [address] [facility] [id number] [address] [place] [address] Apr, Other chronic pain G89.29 [place] [address] [place] [id number] [address] [place] [address] Mar, Other chronic pain G89.29 [place] [address] [place] [id number] [address] [place] [address] Mar, Factor V Leiden D68.51 ; Pur e hypercholesterolemia E78.00 and Other chronic pain G89.29 [place] [address] [place] [id number] [address] [place] [address] Feb, Other chronic pain G89.29 [place] [address] [place] [id number] [address] [place] [address] Jan, Idiopathic chronic gout of m ultiple sites without tophus M1A.09X0 [place] [address] [facility] [id number] [address] [place] [address] Jan, Other chronic pain G89.29 [place] [address] [facility] [id number] [address] [place] [address] Dec, Anticoagulant long-term use Z79.01 ; Factor V Leiden D68.51 and Other chronic pain G89.29 [place] [address] [place] [id number] [address] [place] [address] Dec, Other chronic pain G89.29 [facility] [address] [facility] [id number] [address] [place] [address] Nov, Other chronic pain G89.29 [facility] [address] [facility] [id number] [address] [place] [address] 16 Oct, 2016 Other chronic pain G89.29 [place] [address] [facility] [id number] [address] [place] [address] Sep, Anticoagulant long-term use Z79.01 [facility] [address] [facility] [id number] [address] [place] [address] Sep, Chronic prescription opiate use Z79.899 ; Anticoagulant long-term use Z79.01 ; Essential hypertension I10 ; Pure hypercholesterolemia E78.00 ; Factor V Leiden D68.51 ; Venous stasis ulcers, left I83.029 ; Other chronic pain G89.29 and Idiopathic chronic gout of multiple sites without tophus M1A.09X0 [place] [address] [facility] [id number] [address] [place] [address] Aug, Anticoagulant long-term use Z79.01 [place] [address] [facility] [id number] [address] [place] [address] Aug, Other chronic pain G89.29 [place] [address] [facility] [id number] [address] [place] [address] Aug, Essential hypertension I10 a nd Factor V Leiden D68.[address] [place] [id number] [place] [id number] 15 Aug, 2016 Acute right ankle pain M25.571 and Tendo nitis of ankle M77.50 [place] [address] [facility] [id number] [address] [place] [address] Aug, [place] [address] [facility] [id number] [address] [place] [address] July, Other chronic pain G89.29 [place] [address] [facility] [id number] [address] [place] [address] Jun, Other chronic pain G89.29 [facility] [address] [id number] [address] [place] [address] Jun, Other chronic pain G89.29 [facility] [address] [facility] [id number] [address] [place] [address] Jun, Anticoagulant long-term use Z79.01 [facility] [address] [facility] [id number] [address] [place] [address] May, Other chronic pain G89.29 [facility] [address] [facility] [id number] [address] [place] [address] May, Anticoagulant long-term use Z79.01 [facility] [address] [facility] [id number] [address] [place] [address] May, Other chronic pain G89.29 [facility] [address] [facility] [id number] [address] [place] [address] Apr, Anticoagulant long-term use Z79.01 [facility] [address] [facility] [id number] [address] [place] [address] Apr, Other chronic pain G89.29 [facility] [address] [facility] [id number] [address] [place] [address] Apr, Anticoagulant long-term use Z79.01 and Pure hypercholesterolemia E78.00 [facility] [address] [facility] [id number] [address] [place] [address] Mar, [facility] [address] [facility] [id number] [address] [place] [address] Mar, Anticoagulant long-term use Z79.01 [facility] [address] [facility] [id number] [address] [place] [address] Mar, Other chronic pain G89.29 [facility] [address] [facility] [id number] [address] [place] [address] Feb, Essential hypertension I10 ; Chronic prescription opiate use Z79.899 ; Other chronic pain G89.29 ; Screening Z13.9 ; Factor V Leiden D68.51 ; Anticoagulant long-term use Z79.01 ; Venous stasis dermatitis of left lower extremity I83.12 and Pure hypercholesterolemia E78.00 [facility] [address] [facility] [id number] [address] [place] [address] 14 Jan, 2016 Anticoagulant long-term use Z79.01 [facility] [address] [id number] [address] [place] [address] Jan, Anticoagulant long-term use Z79.01 [facility] [address] [facility] [id number] [address] [place] [address] Jan, [facility] [address] [facility] [id number] [address] [place] [address] Jan, [facility] [address] [facility] [id number] [address] [place] [address] Dec, [facility] [address] [facility] [id number] [address] [place] [address] Nov, [facility] [address] [facility] [id number] [address] [place] [address] Oct, Anticoagulant long-term use Z79.01 [facility] [address] [facility] [id number] [address] [place] [address] Oct, [facility] [address] [facility] [id number] [address] [place] [address] Oct, Anticoagulant long-term use Z79.01 [facility] [address] [id number] [address] [place] [address] Sep, [facility] [address] [facility] [id number] [address] [place] [address] Aug, [facility] [address] [facility] [id number] [address] [place] [address] Aug, Chronic prescription opiate use Z79.899 ; Other chronic pain G89.29 ; Essential hypertension I10 and Pure hypercholesterolemia E78.0 [facility] [address] [facility] [id number] [address] [place] [address] July, Hyperlipidemia, group D E78. 3 and Anticoagulant long-term use Z79.01 [facility] [address] [facility] [id number] [address] [place] [address] July, Hyperlipidemia, group D E78. 3 ; Essential hypertension I10 and Factor V Leiden D68.51 [facility] [address] [facility] [id number] [address] [place] [address] July, Essential hypertension I10 [place] [address] [facility] [id number] [address] [place] [address] Jun, Hyperlipidemia, group D E78. 3 [place] [address] [facility] [id number] [address] [place] [address] Jun, Factor V Leiden D68.51 [facility] [address] [facility] [id number] [address] [place] [address] May, Factor V Leiden D68.51 ; Hyp erlipidemia, group D E78.3 ; Essential hypertension I10 ; Other chronic pain G89.29 and Anticoagulant long-term use Z79.01 [place] [address] [facility] [id number] [address] [place] [address] May, Anticoagulant long-term use Z79.01 [facility] [address] [facility] [id number] [address] [place] [address] May, Anticoagulant long-term use Z79.01 [facility] [address] [facility] [id number] [address] [place] [address] May, [place] [address] [facility] [id number] [address] [place] [address] Apr, [facility] [address] [facility] [id number] [address] [place] [address] Mar, [facility] [address] [facility] [id number] [address] [place] [address] Mar, [facility] [address] [facility] [id number] [address] [place] [address] Feb, Anticoagulant long-term use Z79.01 [facility] [address] [facility] [id number] [address] [place] [address] 16 Feb, 2015 Chronic prescription opiate use Z79.899 ; Other chronic pain G89.29 ; Hyperlipidemia, group D E78.3 ; Factor V Leiden D68.51 and Anticoagulant long- term use Z79.01 [facility] [address] [facility] [id number] [address] [place] [address] Feb, [facility] [address] [place] [id number] [place] [address] Jan, [facility] [address] [address] Dec, Hyperlipidemia, unspecified E78.5 [facility] [address] [facility] [id number] [address] [place] [address] Dec, Cellulitis of left lower ext remity L03.116 ; Venous stasis ulcers, left I83.029 and Factor V Leiden D68.51 [facility] [address] [place] [id number] [address] [place] [address] Dec, Hyperlipidemia 272.4 and Fac tor V Leiden 289.81 [facility] [address] [facility] [id number] [address] [place] [address] Dec, [facility] [address] [facility] [id number] [address] [place] [address] Nov, Factor V Leiden 289.81 [facility] [address] [place] [id number] [address] [place] [address] Nov, [facility] [address] [place] [id number] [address] [place] [address] Nov, [facility] [address] [place] [id number] [address] [place] [address] Nov, [facility] [address] [facility] [id number] [address] [place] [address] Oct, [facility] [address] [facility] [id number] [address] [place] [address] Oct, Hyperlipidemia 272.4 ; Chron ic pain disorder 338.4 ; Venous stasis ulcer of left lower extremity 454.0 and Factor V Leiden 289.81 [facility] [address] [place] [id number] [place] [address] Sep, [facility] [address] [place] [id number] [place] [address] Sep, [facility] [address] [place] [id number] [place] [address] Sep, Hyperlipidemia 272.4 and Fac tor V Leiden 289.81 [facility] [address] [place] [id number] [place] [address] Aug, [facility] [address] [place] [id number] [place] [address] Aug, Factor V Leiden 289.81 [facility] [address] [place] [id number] [address] [place] [address] July, [facility] [address] [place] [id number] [address] [place] [address] July, Essential hypertension, fito gn 401.1 ; Factor V Leiden 289.81 ; Chronic pain disorder 338.4 ; Hyperlipidemia 272.4 and Venous stasis ulcer of left lower extremity 454.0 [facility] [address] [address] Jun, [facility] [address] [place] [id number] [place] [address] Jun, [facility] [address] [address] May, [facility] [address] [id number] [address] [place] [address], [place] [address] May, [facility] [address] [id number] [address] [place] [address], [place] [address] 20 Apr, 2014 [facility] [address] [id number] [address] [place] [address], [place] [address] Apr, [facility] [address] [id number] [address] [place] [address], [place] [address] Apr, [facility] [address] [id number] [address] [place] [address], [place] [address] Apr, [facility] [address] [id number] [address] [place] [address], [place] [address] Apr, [facility] [address] [id number] [address] [place] [address], [place] [address] Apr, [facility] [address] [id number] [address] [place] [address], [place] [address] Mar, [facility] [address] [id number] [address] [place] [address], [place] [address] Mar, [facility] [address] [id number] [address] [place] [address], [place] [address] Mar, [facility] [address] [id number] [address] [place] [address], [place] [address] Mar, [facility] [address] [id number] [address] [place] [address], [place] [address] Feb, [facility] [address] [id number] [address] [place] [address], [place] [address] Feb, [facility] [address] [id number] [address] [place] [address], [place] [address] 16 Feb, 2014 [facility] [address] [id number] [address] [place] [address], [place] [address] 16 Feb, 2014 [facility] [address] [id number] [address] [place] [address], [place] [address] Jan, [facility] [address] [id number] [address] [place] [address], [place] [address] Jan, [facility] [address] [id number] [address] [place] [address], [place] [address] Jan, [facility] [address] [id number] [address] [place] [address], [place] [address] Jan, [facility] [address] [id number] [address] [place] [address], [place] [address] Jan, [facility] [address] [id number] [address] [place] [address], [place] [address] Jan, [facility] [address] [id number] [address] [place] [address], [place] [address] Dec, [facility] [address] [id number] [address] [place] [address], [place] [address] Dec, [facility] [address] [id number] [address] [place] [address], [place] [address] Oct, [facility] [address] [id number] [address] [place] [address], [place] [address] Oct, [facility] [address] [id number] [address] [place] [address], [place] [address] Sep, [facility] [address] [id number] [address] [place] [address], [place] [address] Sep, [facility] [address] [id number] [address] [place] [address], [place] [address] Sep, [facility] [address] [id number] [address] [place] [address], [place] [address] Sep, [facility] [address] [id number] [address] [place] [address], [place] [address] Aug, [facility] [address] [id number] [address] [place] [address], [place] [address] Aug, [facility] [address] [id number] [address] [place] [address], [place] [address] July, [facility] [address] [id number] [address] [place] [address], [place] [address] July, [facility] [address] [id number] [address] [place] [address], [place] [address] Jun, [facility] [address] [id number] [address] [place] [address], [place] [address] Jun, [facility] [address] [id number] [address] [place] [address], [place] [address] May, [facility] [address] [id number] [address] [place] [address], [place] [address] May, [facility] [address] [id number] [address] [place] [address], [place] [address] Apr, [facility] [address] [id number] [address] [place] [address], [place] [address] Apr, [facility] [address] [id number] [address] [place] [address], [place] [address] Mar, [facility] [address] [id number] [address] [place] [address], [place] [address] Mar, [facility] [address] [id number] [address] [place] [address], [place] [address] Jan, [facility] [address] [id number] [address] [place] [address], [place] [address] Jan, [facility] [address] [id number] [address] [place] [address], [place] [address] Jan, [facility] [address] [id number] [address] [place] [address], [place] [address] Jan, [facility] [address] [id number] [address] [place] [address], [place] [address] Jan, [facility] [address] [id number] [address] [place] [address] Dec, [facility] [address] [id number] [address] [place] [address], [place] [address] Dec, [facility] [address] [id number] [address] [place] [address] Dec, [facility] [address] [id number] [address] [place] [address], [place] [address] Nov, [facility] [address] [id number] [address] [place] [address] Nov, [facility] [address] [id number] [address] [place] [address], [place] [address] Sep, [facility] [address] [id number] [address] [place] [address], [place] [address] Sep, [facility] [address] [id number] [address] [place] [address] Aug, [facility] [address] [id number] [address] [place] [address], [place] [address] Aug, [facility] [address] [id number] [place] [id number] July, [facility] [address] [id number] [place] [id number] Jun, [facility] [place] [address] [id number] [place] [id number] Apr, [facility] [address] [id number] [place] [id number] Mar, [facility] [address] [id number] [address] [place] [address], [place] [address] Mar, [facility] [place] [address] [id number] [place] [id number] Mar, [facility] [address] [id number] [address] [place] [address], [place] [address] Mar, [facility] [address] [id number] [place] [id number] Feb, [facility] [address] [id number] [address] [place] [address] Feb, [facility] [place] [address] [id number] [place] [id number] Feb, [facility] [address] [facility] [id number] [address] [place] [address] Feb, [facility] [place] [address] [id number] [place] [id number] Oct, [facility] [place] [address] [id number] [place] [id number] Oct, [facility] [place] [address] [id number] [place] [id number] July, [facility] [place] [address] [id number] [place] [id number] July, [facility] [place] [address] [id number] [place] [id number] Jun, [facility] [place] [address] [id number] [place] [id number] Jun, [facility] [place] [address] [id number] [place] [id number] Jun, [facility] [place] [address] [id number] [place] [id number] Mar, [facility] [place] [address] [id number] [place] [id number] Mar, [facility] [address] [facility] [id number] [address] [place] [address] Feb, [facility] [address] [facility] [id number] [address] [place] [id number] Feb, [facility] [address] [facility] [id number] [address] [place] [address] Jan, [facility] [address] [facility] [id number] [address] [place] [id number] Jan, [facility] [address] [facility] [id number] [address] [place] [address] Jan, [facility] [address] [facility] [id number] [address] [place] [address] Jan, [facility] [address] [facility] [id number] [address] [place] [address] Jan, [facility] [address] [facility] [id number] [address] [place] [id number] Aug, [facility] [address] [facility] [id number] [address] [place] [id number] Apr, IMMUNIZATIONS No Known Immunizations SOCIAL HISTORY Never Assessed REASON FOR VISIT Controlled Medication Refill PLAN OF CARE VITAL SIGNS MEDICATIONS Medication Instructions Dosage Frequency Start Date End Date Duration S sahil Hydrocodone-Acetaminophen 10-325 MG Orally 4 times a day as needed for pain 1 tablet Jun, 28 days Active RESULTS No Results PROCEDURES [...]
--- OUTSIDE RECORDS SUMMARY | 2019-11-08 13:10 | XMS REPORT ---
Author Author Zana ORTIZ [facility] Address [address] [place] [address] Care Team Providers Care Utility Bill Collector Name Role Phone DIANADAVIDAVANI Unavailable PROBLEMS Type Condition ICD9-CM Code [id number] Code Onset Dates Condition S tatus SNOMED Code Problem Factor V Leiden D68.51 Active 3070 10761 Problem Post-phlebitic syndrome I87.009 Active 42366402 Problem Anticoagulant long-term use Z79.01 Ac tive 195593336 Problem Essential hypertension I10 Active 98585551 Problem Other chronic pain G89.29 Active 8 3666918 Problem Venous stasis ulcers, left I83.029 Act ozzy 480688074 Problem 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 38312610 Problem Congenital single kidney Q60.0 Activ e 16698983 Problem Venous anomaly Q27.9 Active 73819 4003 Problem Pure hypercholesterolemia E78.00 Acti ve 615781065 Problem Chronic prescription opiate use Z79.899 Active [id number] ALLERGIES No Information ENCOUNTERS Encounter Location Date Diagnosis [facility] [address] [facility] [id number] [address] [place] [address] Sep, Other chronic pain G89.29 [facility] [address] [facility] [id number] [address] [place] [address] 18 Aug, 2017 Other chronic pain G89.29 [facility] [address] [facility] [id number] [address] [place] [address] 11 Aug, 2017 Venous stasis ulcers, left I 83.029 [facility] [address] [facility] [id number] [address] [place] [address] July, Other chronic pain G89.29 [facility] [address] [facility] [id number] [address] [place] [address] July, Venous stasis ulcers, left I 83.029 and Snoring R06.83 [place] [address] [facility] [id number] [address] [place] [address] Jun, Idiopathic chronic gout of ultiple sites without tophus M1A.09X0 [place] [address] [facility] [id number] [address] [place] [address] Jun, Acute renal insufficiency N2 8.9 [place] [address] [facility] [id number] [address] [place] [address] Jun, Other chronic pain G89.29 [place] [address] [facility] [id number] [address] [place] [address] Jun, Acute renal insufficiency N2 8.[id number] [place] [address] [id number] Jun, Idiopathic chronic gout of multiple site s without tophus M1A.09X0 ; Essential hypertension I10 and Anticoagulant long-term use Z79.01 [place] [address] [facility] [id number] [address] [place] [address] Jun, Anticoagulant long-term use Z79.01 and Essential hypertension I10 [place] [address] [facility] [id number] [address] [place] [address] May, Idiopathic chronic gout of ultiple sites without tophus M1A.09X0 [place] [address] [facility] [id number] [address] [place] [address] May, [place] [address] [facility] [id number] [address] [place] [address] May, Essential hypertension I10 ; Pure hypercholesterolemia E78.00 ; Anticoagulant long-term use Z79.01 and Idiopathic chronic gout of multiple sites without tophus M1A.09X0 [place] [address] [facility] [id number] [address] [place] [address] May, Other chronic pain G89.29 [place] [address] [facility] [id number] [address] [place] [address] May, Anticoagulant long-term use Z79.01 [place] [address] [facility] [id number] [address] [place] [address] May, Chronic prescription opiate use Z79.899 ; Other chronic pain G89.29 ; Essential hypertension I10 ; Factor V Leiden D68.51 ; Anticoagulant long-term use Z79.01 ; Pure hypercholesterolemia E78.00 ; Venous stasis ulcers, left I83.029 ; Idiopathic chronic gout of multiple sites without tophus M1A.09X0 and Cellulitis of left lower extremity L03.116 [place] [address] [facility] [id number] [address] [place] [address] Apr, Other chronic pain G89.29 [place] [address] [place] [id number] [address] [place] [address] Mar, Other chronic pain G89.29 [place] [address] [place] [id number] [address] [place] [address] Mar, Factor V Leiden D68.51 ; Pur e hypercholesterolemia E78.00 and Other chronic pain G89.29 [place] [address] [place] [id number] [address] [place] [address] Feb, Other chronic pain G89.29 [place] [address] [place] [id number] [address] [place] [address] Jan, Idiopathic chronic gout of m ultiple sites without tophus M1A.09X0 [place] [address] [facility] [id number] [address] [place] [address] Jan, Other chronic pain G89.29 [place] [address] [facility] [id number] [address] [place] [address] Dec, Anticoagulant long-term use Z79.01 ; Factor V Leiden D68.51 and Other chronic pain G89.29 [place] [address] [place] [id number] [address] [place] [address] Dec, Other chronic pain G89.29 [facility] [address] [facility] [id number] [address] [place] [address] Nov, Other chronic pain G89.29 [facility] [address] [facility] [id number] [address] [place] [address] 16 Oct, 2016 Other chronic pain G89.29 [place] [address] [facility] [id number] [address] [place] [address] Sep, Anticoagulant long-term use Z79.01 [facility] [address] [facility] [id number] [address] [place] [address] Sep, Chronic prescription opiate use Z79.899 ; Anticoagulant long-term use Z79.01 ; Essential hypertension I10 ; Pure hypercholesterolemia E78.00 ; Factor V Leiden D68.51 ; Venous stasis ulcers, left I83.029 ; Other chronic pain G89.29 and Idiopathic chronic gout of multiple sites without tophus M1A.09X0 [place] [address] [facility] [id number] [address] [place] [address] Aug, Anticoagulant long-term use Z79.01 [place] [address] [facility] [id number] [address] [place] [address] Aug, Other chronic pain G89.29 [place] [address] [facility] [id number] [address] [place] [address] Aug, Essential hypertension I10 a nd Factor V Leiden D68.[address] [place] [id number] [place] [address] [id number] 15 Aug, 2016 Acute right ankle pain M25.571 and Tendo nitis of ankle M77.50 [place] [address] [facility] [id number] [address] [place] [address] Aug, [place] [address] [facility] [id number] [address] [place] [address] July, Other chronic pain G89.29 [place] [address] [facility] [id number] [address] [place] [address] Jun, Other chronic pain G89.29 [facility] [address] [id number] [address] [place] [address] Jun, Other chronic pain G89.29 [facility] [address] [facility] [id number] [address] [place] [address] Jun, Anticoagulant long-term use Z79.01 [facility] [address] [facility] [id number] [address] [place] [address] May, Other chronic pain G89.29 [facility] [address] [facility] [id number] [address] [place] [address] May, Anticoagulant long-term use Z79.01 [facility] [address] [facility] [id number] [address] [place] [address] May, Other chronic pain G89.29 [facility] [address] [facility] [id number] [address] [place] [address] Apr, Anticoagulant long-term use Z79.01 [facility] [address] [facility] [id number] [address] [place] [address] Apr, Other chronic pain G89.29 [facility] [address] [facility] [id number] [address] [place] [address] Apr, Anticoagulant long-term use Z79.01 and Pure hypercholesterolemia E78.00 [facility] [address] [facility] [id number] [address] [place] [address] Mar, [facility] [address] [facility] [id number] [address] [place] [address] Mar, Anticoagulant long-term use Z79.01 [facility] [address] [facility] [id number] [address] [place] [address] Mar, Other chronic pain G89.29 [facility] [address] [facility] [id number] [address] [place] [address] Feb, Essential hypertension I10 ; Chronic prescription opiate use Z79.899 ; Other chronic pain G89.29 ; Screening Z13.9 ; Factor V Leiden D68.51 ; Anticoagulant long-term use Z79.01 ; Venous stasis dermatitis of left lower extremity I83.12 and Pure hypercholesterolemia E78.00 [facility] [address] [facility] [id number] [address] [place] [address] 14 Jan, 2016 Anticoagulant long-term use Z79.01 [facility] [address] [id number] [address] [place] [address] Jan, Anticoagulant long-term use Z79.01 [facility] [address] [facility] [id number] [address] [place] [address] Jan, [facility] [address] [facility] [id number] [address] [place] [address] Jan, [facility] [address] [facility] [id number] [address] [place] [address] Dec, [facility] [address] [facility] [id number] [address] [place] [address] Nov, [facility] [address] [facility] [id number] [address] [place] [address] Oct, Anticoagulant long-term use Z79.01 [facility] [address] [facility] [id number] [address] [place] [address] Oct, [facility] [address] [facility] [id number] [address] [place] [address] Oct, Anticoagulant long-term use Z79.01 [facility] [address] [id number] [address] [place] [address] Sep, [facility] [address] [facility] [id number] [address] [place] [address] Aug, [facility] [address] [facility] [id number] [address] [place] [address] Aug, Chronic prescription opiate use Z79.899 ; Other chronic pain G89.29 ; Essential hypertension I10 and Pure hypercholesterolemia E78.0 [facility] [address] [facility] [id number] [address] [place] [address] July, Hyperlipidemia, group D E78. 3 and Anticoagulant long-term use Z79.01 [facility] [address] [facility] [id number] [address] [place] [address] July, Hyperlipidemia, group D E78. 3 ; Essential hypertension I10 and Factor V Leiden D68.51 [facility] [address] [facility] [id number] [address] [place] [address] July, Essential hypertension I10 [place] [address] [facility] [id number] [address] [place] [address] Jun, Hyperlipidemia, group D E78. 3 [place] [address] [facility] [id number] [address] [place] [address] Jun, Factor V Leiden D68.51 [facility] [address] [facility] [id number] [address] [place] [address] May, Factor V Leiden D68.51 ; Hyp erlipidemia, group D E78.3 ; Essential hypertension I10 ; Other chronic pain G89.29 and Anticoagulant long-term use Z79.01 [place] [id number] [facility] [id number] [address] [place] [address] May, Anticoagulant long-term use Z79.01 [facility] [address] [facility] [id number] [address] [place] [address] May, Anticoagulant long-term use Z79.01 [facility] [address] [facility] [id number] [address] [place] [address] May, [place] [address] [facility] [id number] [address] [place] [address] Apr, [facility] [address] [facility] [id number] [address] [place] [address] Mar, [facility] [address] [facility] [id number] [address] [place] [address] Mar, [facility] [address] [facility] [id number] [address] [place] [address] Feb, Anticoagulant long-term use Z79.01 [facility] [address] [facility] [id number] [address] [place] [address] 16 Feb, 2015 Chronic prescription opiate use Z79.899 ; Other chronic pain G89.29 ; Hyperlipidemia, group D E78.3 ; Factor V Leiden D68.51 and Anticoagulant long- term use Z79.01 [facility] [address] [facility] [id number] [address] [place] [address] Feb, [facility] [address] [place] [id number] [place] [address] Jan, [facility] [address] [address] Dec, Hyperlipidemia, unspecified E78.5 [facility] [address] [facility] [id number] [address] [place] [address] Dec, Cellulitis of left lower ext remity L03.116 ; Venous stasis ulcers, left I83.029 and Factor V Leiden D68.51 [facility] [address] [place] [id number] [address] [place] [address] Dec, Hyperlipidemia 272.4 and Fac tor V Leiden 289.81 [facility] [address] [facility] [id number] [address] [place] [address] Dec, [facility] [address] [facility] [id number] [address] [place] [address] Nov, Factor V Leiden 289.81 [facility] [address] [place] [id number] [address] [place] [address] Nov, [facility] [address] [place] [id number] [address] [place] [address] Nov, [facility] [address] [place] [id number] [address] [place] [address] Nov, [facility] [address] [facility] [id number] [address] [place] [address] Oct, [facility] [address] [facility] [id number] [address] [place] [address] Oct, Hyperlipidemia 272.4 ; Chron ic pain disorder 338.4 ; Venous stasis ulcer of left lower extremity 454.0 and Factor V Leiden 289.81 [facility] [address] [place] [id number] [place] [address] Sep, [facility] [address] [place] [id number] [place] [address] Sep, [facility] [address] [place] [id number] [place] [address] Sep, Hyperlipidemia 272.4 and Fac tor V Leiden 289.81 [facility] [address] [place] [id number] [address] [place] [address] Aug, [facility] [address] [place] [id number] [place] [address] Aug, Factor V Leiden 289.81 [facility] [address] [place] [id number] [address] [place] [address] July, [facility] [address] [place] [id number] [address] [place] [address] July, Essential hypertension, fito gn 401.1 ; Factor V Leiden 289.81 ; Chronic pain disorder 338.4 ; Hyperlipidemia 272.4 and Venous stasis ulcer of left lower extremity 454.0 [facility] [address] [address] Jun, [facility] [address] [place] [id number] [place] [address] Jun, [facility] [address] [address] May, [facility] [address] [id number] [address] [place] [address], [place] [address] May, [facility] [address] [id number] [address] [place] [address], [place] [address] 20 Apr, 2014 [facility] [address] [id number] [address] [place] [address], [place] [address] Apr, [facility] [address] [id number] [address] [place] [address], [place] [address] Apr, [facility] [address] [id number] [address] [place] [address], [place] [address] Apr, [facility] [address] [id number] [address] [place] [address], [place] [address] Apr, [facility] [address] [id number] [address] [place] [address], [place] [address] Apr, [facility] [address] [id number] [address] [place] [address], [place] [address] Mar, [facility] [address] [id number] [address] [place] [address], [place] [address] Mar, [facility] [address] [id number] [address] [place] [address], [place] [address] Mar, [facility] [address] [id number] [address] [place] [address], [place] [address] Mar, [facility] [address] [id number] [address] [place] [address], [place] [address] Feb, [facility] [address] [id number] [address] [place] [address], [place] [address] Feb, [facility] [address] [id number] [address] [place] [address], [place] [address] 16 Feb, 2014 [facility] [address] [id number] [address] [place] [address], [place] [address] 16 Feb, 2014 [facility] [address] [id number] [address] [place] [address], [place] [address] Jan, [facility] [address] [id number] [address] [place] [address], [place] [address] Jan, [facility] [address] [id number] [address] [place] [address], [place] [address] Jan, [facility] [address] [id number] [address] [place] [address], [place] [address] Jan, [facility] [address] [id number] [address] [place] [address], [place] [address] Jan, [facility] [address] [id number] [address] [place] [address], [place] [address] Jan, [facility] [address] [id number] [address] [place] [address], [place] [address] Dec, [facility] [address] [id number] [address] [place] [address], [place] [address] Dec, [facility] [address] [id number] [address] [place] [address], [place] [address] Oct, [facility] [address] [id number] [address] [place] [address], [place] [address] Oct, [facility] [address] [id number] [address] [place] [address], [place] [address] Sep, [facility] [address] [id number] [address] [place] [address], [place] [address] Sep, [facility] [address] [id number] [address] [place] [address], [place] [address] Sep, [facility] [address] [id number] [address] [place] [address], [place] [address] Sep, [facility] [address] [id number] [address] [place] [address], [place] [address] Aug, [facility] [address] [id number] [address] [place] [address], [place] [address] Aug, [facility] [address] [id number] [address] [place] [address], [place] [address] July, [facility] [address] [id number] [address] [place] [address], [place] [address] July, [facility] [address] [id number] [address] [place] [address], [place] [address] Jun, [facility] [address] [id number] [address] [place] [address], [place] [address] Jun, [facility] [address] [id number] [address] [place] [address], [place] [address] May, [facility] [address] [id number] [address] [place] [address], [place] [address] May, [facility] [address] [id number] [address] [place] [address], [place] [address] Apr, [facility] [address] [id number] [address] [place] [address], [place] [address] Apr, [facility] [address] [id number] [address] [place] [address], [place] [address] Mar, [facility] [address] [id number] [address] [place] [address], [place] [address] Mar, [facility] [address] [id number] [address] [place] [address], [place] [address] Jan, [facility] [address] [id number] [address] [place] [address], [place] [address] Jan, [facility] [address] [id number] [address] [place] [address], [place] [address] Jan, [facility] [address] [id number] [address] [place] [address], [place] [address] Jan, [facility] [address] [id number] [address] [place] [address], [place] [address] Jan, [facility] [address] [id number] [address] [place] [address] Dec, [facility] [address] [address] [id number] [address] [place] [address], [place] [address] Dec, [facility] [address] [id number] [address] [place] [id number] Dec, [facility] [address] [id number] [address] [place] [address], [place] [address] Nov, [facility] [address] [id number] [address] [place] [id number] Nov, [facility] [address] [id number] [address] [place] [address], [place] [address] Sep, [facility] [address] [id number] [address] [place] [address], [place] [address] Sep, [facility] [address] [id number] [address] [place] [id number] Aug, [facility] [address] [id number] [address] [place] [address], [place] [address] Aug, [facility] [address] [id number] [place] [id number] July, [facility] [address] [id number] [place] [id number] Jun, [facility] [address] [id number] [place] [id number] Apr, [facility] [address] [id number] [place] [id number] Mar, [facility] [address] [id number] [address] [place] [address], [place] [address] Mar, [facility] [address] [id number] [place] [id number] Mar, [facility] [address] [id number] [address] [place] [address], [place] [address] Mar, [facility] [address] [id number] [place] [id number] Feb, [facility] [address] [id number] [address] [place] [id number] Feb, [facility] [address] [id number] [place] [id number] Feb, [facility] [address] [facility] [id number] [address] [place] [address] Feb, [facility] [place] [address] [id number] [place] [id number] Oct, [facility] [address] [id number] [place] [id number] Oct, [facility] [address] [id number] [place] [id number] July, [facility] [address] [id number] [place] [id number] July, [facility] [address] [id number] [place] [id number] Jun, [facility] [place] [address] [id number] [place] [id number] Jun, [facility] [address] [id number] [place] [id number] Jun, [facility] [address] [id number] [place] [id number] Mar, [facility] [place] [address] [id number] [place] [id number] Mar, [facility] [address] [facility] [id number] [address] [place] [id number] Feb, [facility] [address] [facility] [id number] [address] [place] [address] Feb, [facility] [address] [facility] [id number] [address] [place] [id number] Jan, [facility] [address] [facility] [id number] [address] [place] [id number] Jan, [facility] [address] [facility] [id number] [address] [place] [id number] Jan, [facility] [address] [facility] [id number] [address] [place] [id number] Jan, [facility] [address] [facility] [id number] [address] [place] [id number] Jan, [facility] [address] [facility] [id number] [address] [place] [id number] Aug, [facility] [address] [facility] [id number] [address] [place] [id number] 17 Apr, 2010 IMMUNIZATIONS No Known Immunizations SOCIAL HISTORY Never Assessed REASON FOR VISIT Lab (walk-in) PLAN OF CARE VITAL SIGNS MEDICATIONS Unknown Medications RESULTS No Results PROCEDURES Procedure Date Ordered Result Body Site BASIC METABOLIC PANEL July 19, 2017 PROTHROMBIN TIME July 19, 2017 INSTRUCTIONS MEDICATIONS ADMINISTERED No Known Medications [...]
--- OUTSIDE RECORDS SUMMARY | 2019-11-08 13:10 | XMS REPORT ---
Author Author Zana ORTIZ [facility] Address [address] [place] [address] Care Team Providers Care Industrial Accountant Name Role Phone DIANADAVIDAVANI Unavailable PROBLEMS Type Condition ICD9-CM Code LIR72-SU Code Onset Dates Condition S tatus SNOMED Code Problem Factor V Leiden D68.51 Active 3070 23372 Problem Post-phlebitic syndrome I87.009 Active 29059474 Problem Anticoagulant long-term use Z79.01 Ac tive 184561065 Problem Essential hypertension I10 Active 17123992 Problem Other chronic pain G89.29 Active 8 9788106 Problem Venous stasis ulcers, left I83.029 Act ozzy 590878883 Problem 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 70444130 Problem Congenital single kidney Q60.0 Activ e 82567945 Problem Venous anomaly Q27.9 Active 75948 4003 Problem Pure hypercholesterolemia E78.00 Acti ve 541425056 Problem Chronic prescription opiate use Z79.899 Active 793055671 ALLERGIES No Information ENCOUNTERS Encounter Location Date Diagnosis [facility] [address] [facility] [id number] [address] [place] [address] Sep, Other chronic pain G89.29 [facility] [address] [facility] [id number] [address] [place] [address] 18 Aug, 2017 Other chronic pain G89.29 [facility] [address] [facility] [id number] [address] [place] [address] 11 Aug, 2017 Venous stasis ulcers, left I 83.029 [facility] [address] [facility] [id number] [address] [place] [address] July, Other chronic pain G89.29 [facility] [address] [facility] [id number] [address] [place] [address] July, Venous stasis ulcers, left I 83.029 and Snoring R06.83 [place] [address] [facility] [id number] [address] [place] [address] Jun, Idiopathic chronic gout of ultiple sites without tophus M1A.09X0 [place] [address] [facility] [id number] [address] [place] [address] Jun, Acute renal insufficiency N2 8.9 [place] [address] [facility] [id number] [address] [place] [address] Jun, Other chronic pain G89.29 [place] [address] [facility] [id number] [address] [place] [phone] Jun, Acute renal insufficiency N2 8.[id number] [place] [id number] Jun, Idiopathic chronic gout of multiple site s without tophus M1A.09X0 ; Essential hypertension I10 and Anticoagulant long-term use Z79.01 [place] [address] [facility] [id number] [address] [place] [address] Jun, Anticoagulant long-term use Z79.01 and Essential hypertension I10 [place] [address] [facility] [id number] [address] [place] [address] May, Idiopathic chronic gout of ultiple sites without tophus M1A.09X0 [place] [address] [facility] [id number] [address] [place] [id number] May, [place] [address] [facility] [id number] [address] [place] [address] May, Essential hypertension I10 ; Pure hypercholesterolemia E78.00 ; Anticoagulant long-term use Z79.01 and Idiopathic chronic gout of multiple sites without tophus M1A.09X0 [place] [address] [facility] [id number] [address] [place] [address] May, Other chronic pain G89.29 [place] [address] [facility] [id number] [address] [place] [address] May, Anticoagulant long-term use Z79.01 [place] [address] [facility] [id number] [address] [place] [address] May, Chronic prescription opiate use Z79.899 ; Other chronic pain G89.29 ; Essential hypertension I10 ; Factor V Leiden D68.51 ; Anticoagulant long-term use Z79.01 ; Pure hypercholesterolemia E78.00 ; Venous stasis ulcers, left I83.029 ; Idiopathic chronic gout of multiple sites without tophus M1A.09X0 and Cellulitis of left lower extremity L03.116 [place] [address] [facility] [id number] [address] [place] [address] Apr, Other chronic pain G89.29 [place] [address] [place] [id number] [address] [place] [address] Mar, Other chronic pain G89.29 [place] [address] [place] [id number] [address] [place] [address] Mar, Factor V Leiden D68.51 ; Pur e hypercholesterolemia E78.00 and Other chronic pain G89.29 [place] [address] [place] [id number] [address] [place] [phone] Feb, Other chronic pain G89.29 [place] [address] [place] [id number] [address] [place] [phone] Jan, Idiopathic chronic gout of m ultiple sites without tophus M1A.09X0 [place] [address] [facility] [id number] [address] [place] [address] Jan, Other chronic pain G89.29 [place] [address] [facility] [id number] [address] [place] [address] Dec, Anticoagulant long-term use Z79.01 ; Factor V Leiden D68.51 and Other chronic pain G89.29 [place] [address] [place] [id number] [address] [place] [address] Dec, Other chronic pain G89.29 [facility] [address] [facility] [id number] [address] [place] [address] Nov, Other chronic pain G89.29 [facility] [address] [facility] [id number] [address] [place] [address] 16 Oct, 2016 Other chronic pain G89.29 [place] [address] [facility] [id number] [address] [place] [address] Sep, Anticoagulant long-term use Z79.01 [facility] [address] [facility] [id number] [address] [place] [address] Sep, Chronic prescription opiate use Z79.899 ; Anticoagulant long-term use Z79.01 ; Essential hypertension I10 ; Pure hypercholesterolemia E78.00 ; Factor V Leiden D68.51 ; Venous stasis ulcers, left I83.029 ; Other chronic pain G89.29 and Idiopathic chronic gout of multiple sites without tophus M1A.09X0 [place] [address] [facility] [id number] [address] [place] [address] Aug, Anticoagulant long-term use Z79.01 [place] [address] [facility] [id number] [address] [place] [address] Aug, Other chronic pain G89.29 [place] [address] [facility] [id number] [address] [place] [address] Aug, Essential hypertension I10 a nd Factor V Leiden D68.[address] [place] [id number] [place] [address] [id number] 15 Aug, 2016 Acute right ankle pain M25.571 and Tendo nitis of ankle M77.50 [place] [address] [facility] [id number] [address] [place] [address] Aug, [place] [address] [facility] [id number] [address] [place] [address] July, Other chronic pain G89.29 [place] [address] [facility] [id number] [address] [place] [address] Jun, Other chronic pain G89.29 [facility] [address] [id number] [address] [place] [phone] Jun, Other chronic pain G89.29 [facility] [address] [facility] [id number] [address] [place] [address] Jun, Anticoagulant long-term use Z79.01 [facility] [address] [facility] [id number] [address] [place] [address] May, Other chronic pain G89.29 [facility] [address] [facility] [id number] [address] [place] [address] May, Anticoagulant long-term use Z79.01 [facility] [address] [facility] [id number] [address] [place] [address] May, Other chronic pain G89.29 [facility] [address] [facility] [id number] [address] [place] [address] Apr, Anticoagulant long-term use Z79.01 [facility] [address] [facility] [id number] [address] [place] [address] Apr, Other chronic pain G89.29 [facility] [address] [facility] [id number] [address] [place] [address] Apr, Anticoagulant long-term use Z79.01 and Pure hypercholesterolemia E78.00 [facility] [address] [facility] [id number] [address] [place] [phone] Mar, [facility] [address] [facility] [id number] [address] [place] [address] Mar, Anticoagulant long-term use Z79.01 [facility] [address] [facility] [id number] [address] [place] [address] Mar, Other chronic pain G89.29 [facility] [address] [facility] [id number] [address] [place] [address] Feb, Essential hypertension I10 ; Chronic prescription opiate use Z79.899 ; Other chronic pain G89.29 ; Screening Z13.9 ; Factor V Leiden D68.51 ; Anticoagulant long-term use Z79.01 ; Venous stasis dermatitis of left lower extremity I83.12 and Pure hypercholesterolemia E78.00 [facility] [address] [facility] [id number] [address] [place] [id number] 14 Jan, 2016 Anticoagulant long-term use Z79.01 [facility] [address] [id number] [address] [place] [address] Jan, Anticoagulant long-term use Z79.01 [facility] [address] [facility] [id number] [address] [place] [phone] Jan, [facility] [address] [facility] [id number] [address] [place] [address] Jan, [facility] [address] [facility] [id number] [address] [place] [address] Dec, [facility] [address] [facility] [id number] [address] [place] [phone] Nov, [facility] [address] [facility] [id number] [address] [place] [phone] Oct, Anticoagulant long-term use Z79.01 [facility] [address] [facility] [id number] [address] [place] [phone] Oct, [facility] [address] [facility] [id number] [address] [place] [phone] Oct, Anticoagulant long-term use Z79.01 [facility] [address] [id number] [address] [place] [phone] Sep, [facility] [address] [facility] [id number] [address] [place] [address] Aug, [facility] [address] [facility] [id number] [address] [place] [address] Aug, Chronic prescription opiate use Z79.899 ; Other chronic pain G89.29 ; Essential hypertension I10 and Pure hypercholesterolemia E78.0 [facility] [address] [facility] [id number] [address] [place] [phone] July, Hyperlipidemia, group D E78. 3 and Anticoagulant long-term use Z79.01 [facility] [address] [facility] [id number] [address] [place] [phone] July, Hyperlipidemia, group D E78. 3 ; Essential hypertension I10 and Factor V Leiden D68.51 [facility] [address] [facility] [id number] [address] [place] [phone] July, Essential hypertension I10 [place] [address] [facility] [id number] [address] [place] [address] Jun, Hyperlipidemia, group D E78. 3 [place] [address] [facility] [id number] [address] [place] [address] Jun, Factor V Leiden D68.51 [facility] [address] [facility] [id number] [address] [place] [address] May, Factor V Leiden D68.51 ; Hyp erlipidemia, group D E78.3 ; Essential hypertension I10 ; Other chronic pain G89.29 and Anticoagulant long-term use Z79.01 [place] [address] [facility] [id number] [address] [place] [phone] May, Anticoagulant long-term use Z79.01 [facility] [address] [facility] [id number] [address] [place] [address] May, Anticoagulant long-term use Z79.01 [facility] [address] [facility] [id number] [address] [place] [address] May, [place] [address] [facility] [id number] [address] [place] [phone] Apr, [facility] [address] [facility] [id number] [address] [place] [phone] Mar, [facility] [address] [facility] [id number] [address] [place] [phone] Mar, [facility] [address] [facility] [id number] [address] [place] [address] Feb, Anticoagulant long-term use Z79.01 [facility] [address] [facility] [id number] [address] [place] [address] 16 Feb, 2015 Chronic prescription opiate use Z79.899 ; Other chronic pain G89.29 ; Hyperlipidemia, group D E78.3 ; Factor V Leiden D68.51 and Anticoagulant long- term use Z79.01 [facility] [address] [facility] [id number] [address] [place] [phone] Feb, [facility] [address] [place] [id number] [place] [address] Jan, [facility] [address] [address] Dec, Hyperlipidemia, unspecified E78.5 [facility] [address] [facility] [id number] [address] [place] [address] Dec, Cellulitis of left lower ext remity L03.116 ; Venous stasis ulcers, left I83.029 and Factor V Leiden D68.51 [facility] [address] [place] [id number] [address] [place] [address] Dec, Hyperlipidemia 272.4 and Fac tor V Leiden 289.81 [facility] [address] [facility] [id number] [address] [place] [address] Dec, [facility] [address] [facility] [id number] [address] [place] [phone] Nov, Factor V Leiden 289.81 [facility] [address] [place] [id number] [address] [place] [phone] Nov, [facility] [address] [place] [id number] [address] [place] [address] Nov, [facility] [address] [place] [id number] [address] [place] [phone] Nov, [facility] [address] [facility] [id number] [address] [place] [address] Oct, [facility] [address] [facility] [id number] [address] [place] [address] Oct, Hyperlipidemia 272.4 ; Chron ic pain disorder 338.4 ; Venous stasis ulcer of left lower extremity 454.0 and Factor V Leiden 289.81 [facility] [address] [place] [id number] [place] [phone] Sep, [facility] [address] [place] [id number] [place] [address] Sep, [facility] [address] [place] [id number] [place] [address] Sep, Hyperlipidemia 272.4 and Fac tor V Leiden 289.81 [facility] [address] [place] [id number] [address] [place] [address] Aug, [facility] [address] [place] [id number] [place] [phone] Aug, Factor V Leiden 289.81 [facility] [address] [place] [id number] [address] [place] [address] July, [facility] [address] [place] [id number] [address] [place] [phone] July, Essential hypertension, fito gn 401.1 ; Factor V Leiden 289.81 ; Chronic pain disorder 338.4 ; Hyperlipidemia 272.4 and Venous stasis ulcer of left lower extremity 454.0 [facility] [address] [address] Jun, [facility] [address] [place] [id number] [place] [phone] Jun, [facility] [address] [address] May, [facility] [address] [id number] [address] [place] [address], [place] [address] May, [facility] [address] [id number] [address] [place] [address], [place] [address] 20 Apr, 2014 [facility] [address] [id number] [address] [place] [address], [place] [address] Apr, [facility] [address] [id number] [address] [place] [address], [place] [address] Apr, [facility] [address] [id number] [address] [place] [address], [place] [address] Apr, [facility] [address] [id number] [address] [place] [address], [place] [address] Apr, [facility] [address] [id number] [address] [place] [address], [place] [address] Apr, [facility] [address] [id number] [address] [place] [address], [place] [address] Mar, [facility] [address] [id number] [address] [place] [address], [place] [address] Mar, [facility] [address] [id number] [address] [place] [address], [place] [address] Mar, [facility] [address] [id number] [address] [place] [address], [place] [address] Mar, [facility] [address] [id number] [address] [place] [address], [place] [address] Feb, [facility] [address] [id number] [address] [place] [address], [place] [address] Feb, [facility] [address] [id number] [address] [place] [address], [place] [address] 16 Feb, 2014 [facility] [address] [id number] [address] [place] [address], [place] [address] 16 Feb, 2014 [facility] [address] [id number] [address] [place] [address], [place] [address] Jan, [facility] [address] [id number] [address] [place] [address], [place] [address] Jan, [facility] [address] [id number] [address] [place] [address], [place] [address] Jan, [facility] [address] [id number] [address] [place] [address], [place] [address] Jan, [facility] [address] [id number] [address] [place] [address], [place] [address] Jan, [facility] [address] [id number] [address] [place] [address], [place] [address] Jan, [facility] [address] [id number] [address] [place] [address], [place] [address] Dec, [facility] [address] [id number] [address] [place] [address], [place] [address] Dec, [facility] [address] [id number] [address] [place] [address], [place] [address] Oct, [facility] [address] [id number] [address] [place] [address], [place] [address] Oct, [facility] [address] [id number] [address] [place] [address], [place] [address] Sep, [facility] [address] [id number] [address] [place] [address], [place] [address] Sep, [facility] [address] [id number] [address] [place] [address], [place] [address] Sep, [facility] [address] [id number] [address] [place] [address], [place] [address] Sep, [facility] [address] [id number] [address] [place] [address], [place] [address] Aug, [facility] [address] [id number] [address] [place] [address], [place] [address] Aug, [facility] [address] [id number] [address] [place] [address], [place] [address] July, [facility] [address] [id number] [address] [place] [address], [place] [address] July, [facility] [address] [id number] [address] [place] [address], [place] [address] Jun, [facility] [address] [id number] [address] [place] [address], [place] [address] Jun, [facility] [address] [id number] [address] [place] [address], [place] [address] May, [facility] [address] [id number] [address] [place] [address], [place] [address] May, [facility] [address] [id number] [address] [place] [address], [place] [address] Apr, [facility] [address] [id number] [address] [place] [address], [place] [address] Apr, [facility] [address] [id number] [address] [place] [address], [place] [address] Mar, [facility] [address] [id number] [address] [place] [address], [place] [address] Mar, [facility] [address] [id number] [address] [place] [address], [place] [address] Jan, [facility] [address] [id number] [address] [place] [address], [place] [address] Jan, [facility] [address] [id number] [address] [place] [address], [place] [address] Jan, [facility] [address] [id number] [address] [place] [address], [place] [address] Jan, [facility] [address] [id number] [address] [place] [address], [place] [address] Jan, [facility] [address] [id number] [address] [place] [id number] Dec, [facility] [address] [id number] [address] [place] [address], [place] [address] Dec, [facility] [address] [id number] [address] [place] [address] Dec, [facility] [address] [id number] [address] [place] [address], [place] [address] Nov, [facility] [address] [id number] [address] [place] [id number] Nov, [facility] [address] [id number] [address] [place] [address], [place] [address] Sep, [facility] [address] [id number] [address] [place] [address], [place] [address] Sep, [facility] [address] [id number] [address] [place] [id number] Aug, [facility] [address] [id number] [address] [place] [address], [place] [address] Aug, [facility] [address] [id number] [place] [id number] July, [facility] [address] [id number] [place] [id number] Jun, [facility] [place] [address] [id number] [place] [id number] Apr, [facility] [address] [id number] [place] [id number] Mar, [facility] [address] [id number] [address] [place] [address], [place] [address] Mar, [facility] [place] [address] [id number] [place] [id number] Mar, [facility] [address] [id number] [address] [place] [address], [place] [address] Mar, [facility] [address] [id number] [place] [id number] Feb, [facility] [address] [id number] [address] [place] [id number] Feb, [facility] [address] [id number] [place] [id number] Feb, [facility] [address] [facility] [id number] [address] [place] [id number] Feb, [facility] [place] [address] [id number] [place] [id number] Oct, [facility] [place] [address] [id number] [place] [id number] Oct, [facility] [place] [address] [id number] [place] [id number] July, [facility] [place] [address] [id number] [place] [id number] July, [facility] [place] [address] [id number] [place] [id number] Jun, [facility] [place] [address] [id number] [place] [id number] Jun, [facility] [place] [address] [id number] [place] [id number] Jun, [facility] [address] [id number] [place] [id number] Mar, [facility] [place] [address] [id number] [place] [id number] Mar, [facility] [address] [facility] [id number] [address] [place] [id number] Feb, [facility] [address] [facility] [id number] [address] [place] [id number] Feb, [facility] [address] [facility] [id number] [address] [place] [phone] Jan, [facility] [address] [facility] [id number] [address] [place] [id number] Jan, [facility] [address] [facility] [id number] [address] [place] [id number] Jan, [facility] [address] [facility] [id number] [address] [place] [phone] Jan, [facility] [address] [facility] [id number] [address] [place] [phone] Jan, [facility] [address] [facility] [id number] [address] [place] [phone] Aug, [facility] [address] [facility] [id number] [address] [place] [phone] Apr, IMMUNIZATIONS No Known Immunizations SOCIAL HISTORY Never Assessed REASON FOR VISIT Lab results/medication changes PLAN OF CARE VITAL SIGNS MEDICATIONS Unknown [...]
--- OUTSIDE RECORDS SUMMARY | 2019-11-08 13:11 | XMS REPORT ---
Author Author Zana ORTIZ [facility] Address [address] [place] [address] Care Team Providers Care Retail Event Assistant Name Role Phone DIANADAVIDAVANI Unavailable PROBLEMS Type Condition ICD9-CM Code [id number] Code Onset Dates Condition S tatus SNOMED Code Problem Factor V Leiden D68.51 Active 3070 75861 Problem Post-phlebitic syndrome I87.009 Active 65683561 Problem Anticoagulant long-term use Z79.01 Ac tive 775705592 Problem Essential hypertension I10 Active 64211741 Problem Other chronic pain G89.29 Active 8 3739734 Problem Venous stasis ulcers, left I83.029 Act ozzy 168262123 Problem 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 15128724 Problem Congenital single kidney Q60.0 Activ e 14942980 Problem Venous anomaly Q27.9 Active 75504 4003 Problem Pure hypercholesterolemia E78.00 Acti ve 952759956 Problem Chronic prescription opiate use Z79.899 Active 612709346 ALLERGIES No Information ENCOUNTERS Encounter Location Date Diagnosis [facility] [address] [facility] [id number] [address] [place] [address] Sep, Other chronic pain G89.29 [facility] [address] [facility] [id number] [address] [place] [address] 18 Aug, 2017 Other chronic pain G89.29 [facility] [address] [facility] [id number] [address] [place] [address] 11 Aug, 2017 Venous stasis ulcers, left I 83.029 [facility] [address] [facility] [id number] [address] [place] [address] July, Other chronic pain G89.29 [facility] [address] [facility] [id number] [address] [place] [address] July, Venous stasis ulcers, left I 83.029 and Snoring R06.83 [place] [address] [facility] [id number] [address] [place] [address] Jun, Idiopathic chronic gout of ultiple sites without tophus M1A.09X0 [place] [address] [facility] [id number] [address] [place] [address] Jun, Acute renal insufficiency N2 8.9 [place] [address] [facility] [id number] [address] [place] [address] Jun, Other chronic pain G89.29 [place] [address] [facility] [id number] [address] [place] [address] Jun, Acute renal insufficiency N2 8.[id number] [place] [id number] Jun, Idiopathic chronic gout of multiple site s without tophus M1A.09X0 ; Essential hypertension I10 and Anticoagulant long-term use Z79.01 [place] [address] [facility] [id number] [address] [place] [address] Jun, Anticoagulant long-term use Z79.01 and Essential hypertension I10 [place] [address] [facility] [id number] [address] [place] [address] May, Idiopathic chronic gout of ultiple sites without tophus M1A.09X0 [place] [address] [facility] [id number] [address] [place] [address] May, [place] [address] [facility] [id number] [address] [place] [address] May, Essential hypertension I10 ; Pure hypercholesterolemia E78.00 ; Anticoagulant long-term use Z79.01 and 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 tophus M1A.09X0 [place] [address] [facility] [id number] [address] [place] [address] May, Other chronic pain G89.29 [place] [address] [facility] [id number] [address] [place] [address] May, Anticoagulant long-term use Z79.01 [place] [address] [facility] [id number] [address] [place] [address] May, Chronic prescription opiate use Z79.899 ; Other chronic pain G89.29 ; Essential hypertension I10 ; Factor V Leiden D68.51 ; Anticoagulant long-term use Z79.01 ; Pure hypercholesterolemia E78.00 ; Venous stasis ulcers, left I83.029 ; Idiopathic chronic gout of multiple sites without tophus M1A.09X0 and Cellulitis of left lower extremity L03.116 [place] [address] [facility] [id number] [address] [place] [address] Apr, Other chronic pain G89.29 [place] [address] [place] [id number] [address] [place] [id number] Mar, Other chronic pain G89.29 [place] [address] [place] [id number] [address] [place] [address] Mar, Factor V Leiden D68.51 ; Pur e hypercholesterolemia E78.00 and Other chronic pain G89.29 [place] [address] [place] [id number] [address] [place] [address] Feb, Other chronic pain G89.29 [place] [address] [place] [id number] [address] [place] [address] Jan, Idiopathic chronic gout of m ultiple sites without tophus M1A.09X0 [place] [address] [facility] [id number] [address] [place] [address] Jan, Other chronic pain G89.29 [place] [address] [facility] [id number] [address] [place] [address] Dec, Anticoagulant long-term use Z79.01 ; Factor V Leiden D68.51 and Other chronic pain G89.29 [place] [address] [place] [id number] [address] [place] [address] Dec, Other chronic pain G89.29 [facility] [address] [facility] [id number] [address] [place] [address] Nov, Other chronic pain G89.29 [facility] [address] [facility] [id number] [address] [place] [address] 16 Oct, 2016 Other chronic pain G89.29 [place] [address] [facility] [id number] [address] [place] [address] Sep, Anticoagulant long-term use Z79.01 [facility] [address] [facility] [id number] [address] [place] [address] Sep, Chronic prescription opiate use Z79.899 ; Anticoagulant long-term use Z79.01 ; Essential hypertension I10 ; Pure hypercholesterolemia E78.00 ; Factor V Leiden D68.51 ; Venous stasis ulcers, left I83.029 ; Other chronic pain G89.29 and Idiopathic chronic gout of multiple sites without tophus M1A.09X0 [place] [address] [facility] [id number] [address] [place] [address] Aug, Anticoagulant long-term use Z79.01 [place] [address] [facility] [id number] [address] [place] [address] Aug, Other chronic pain G89.29 [place] [address] [facility] [id number] [address] [place] [address] Aug, Essential hypertension I10 a nd Factor V Leiden D68.[address] [place] [id number] [place] [id number] 15 Aug, 2016 Acute right ankle pain M25.571 and Tendo nitis of ankle M77.50 [place] [address] [facility] [id number] [address] [place] [address] Aug, [place] [address] [facility] [id number] [address] [place] [address] July, Other chronic pain G89.29 [place] [address] [facility] [id number] [address] [place] [address] Jun, Other chronic pain G89.29 [facility] [address] [id number] [address] [place] [address] Jun, Other chronic pain G89.29 [facility] [address] [facility] [id number] [address] [place] [address] Jun, Anticoagulant long-term use Z79.01 [facility] [address] [facility] [id number] [address] [place] [address] May, Other chronic pain G89.29 [facility] [address] [facility] [id number] [address] [place] [address] May, Anticoagulant long-term use Z79.01 [facility] [address] [facility] [id number] [address] [place] [address] May, Other chronic pain G89.29 [facility] [address] [facility] [id number] [address] [place] [address] Apr, Anticoagulant long-term use Z79.01 [facility] [address] [facility] [id number] [address] [place] [address] Apr, Other chronic pain G89.29 [facility] [address] [facility] [id number] [address] [place] [address] Apr, Anticoagulant long-term use Z79.01 and Pure hypercholesterolemia E78.00 [facility] [address] [facility] [id number] [address] [place] [address] Mar, [facility] [address] [facility] [id number] [address] [place] [address] Mar, Anticoagulant long-term use Z79.01 [facility] [address] [facility] [id number] [address] [place] [address] Mar, Other chronic pain G89.29 [facility] [address] [facility] [id number] [address] [place] [address] Feb, Essential hypertension I10 ; Chronic prescription opiate use Z79.899 ; Other chronic pain G89.29 ; Screening Z13.9 ; Factor V Leiden D68.51 ; Anticoagulant long-term use Z79.01 ; Venous stasis dermatitis of left lower extremity I83.12 and Pure hypercholesterolemia E78.00 [facility] [address] [facility] [id number] [address] [place] [address] 14 Jan, 2016 Anticoagulant long-term use Z79.01 [facility] [address] [id number] [address] [place] [address] Jan, Anticoagulant long-term use Z79.01 [facility] [address] [facility] [id number] [address] [place] [address] Jan, [facility] [address] [facility] [id number] [address] [place] [address] Jan, [facility] [address] [facility] [id number] [address] [place] [address] Dec, [facility] [address] [facility] [id number] [address] [place] [address] Nov, [facility] [address] [facility] [id number] [address] [place] [address] Oct, Anticoagulant long-term use Z79.01 [facility] [address] [facility] [id number] [address] [place] [address] Oct, [facility] [address] [facility] [id number] [address] [place] [address] Oct, Anticoagulant long-term use Z79.01 [facility] [address] [id number] [address] [place] [address] Sep, [facility] [address] [facility] [id number] [address] [place] [address] Aug, [facility] [address] [facility] [id number] [address] [place] [address] Aug, Chronic prescription opiate use Z79.899 ; Other chronic pain G89.29 ; Essential hypertension I10 and Pure hypercholesterolemia E78.0 [facility] [address] [facility] [id number] [address] [place] [address] July, Hyperlipidemia, group D E78. 3 and Anticoagulant long-term use Z79.01 [facility] [address] [facility] [id number] [address] [place] [address] July, Hyperlipidemia, group D E78. 3 ; Essential hypertension I10 and Factor V Leiden D68.51 [facility] [address] [facility] [id number] [address] [place] [address] July, Essential hypertension I10 [place] [address] [facility] [id number] [address] [place] [address] Jun, Hyperlipidemia, group D E78. 3 [place] [address] [facility] [id number] [address] [place] [address] Jun, Factor V Leiden D68.51 [facility] [address] [facility] [id number] [address] [place] [address] May, Factor V Leiden D68.51 ; Hyp erlipidemia, group D E78.3 ; Essential hypertension I10 ; Other chronic pain G89.29 and Anticoagulant long-term use Z79.01 [place] [id number] [facility] [id number] [address] [place] [address] May, Anticoagulant long-term use Z79.01 [facility] [address] [facility] [id number] [address] [place] [address] May, Anticoagulant long-term use Z79.01 [facility] [address] [facility] [id number] [address] [place] [address] May, [place] [address] [facility] [id number] [address] [place] [address] Apr, [facility] [address] [facility] [id number] [address] [place] [address] Mar, [facility] [address] [facility] [id number] [address] [place] [address] Mar, [facility] [address] [facility] [id number] [address] [place] [address] Feb, Anticoagulant long-term use Z79.01 [facility] [address] [facility] [id number] [address] [place] [address] 16 Feb, 2015 Chronic prescription opiate use Z79.899 ; Other chronic pain G89.29 ; Hyperlipidemia, group D E78.3 ; Factor V Leiden D68.51 and Anticoagulant long- term use Z79.01 [facility] [address] [facility] [id number] [address] [place] [address] Feb, [facility] [address] [place] [id number] [place] [address] Jan, [facility] [address] [address] Dec, Hyperlipidemia, unspecified E78.5 [facility] [address] [facility] [id number] [address] [place] [address] Dec, Cellulitis of left lower ext remity L03.116 ; Venous stasis ulcers, left I83.029 and Factor V Leiden D68.51 [facility] [address] [place] [id number] [address] [place] [address] Dec, Hyperlipidemia 272.4 and Fac tor V Leiden 289.81 [facility] [address] [facility] [id number] [address] [place] [address] Dec, [facility] [address] [facility] [id number] [address] [place] [address] Nov, Factor V Leiden 289.81 [facility] [address] [place] [id number] [address] [place] [address] Nov, [facility] [address] [place] [id number] [address] [place] [address] Nov, [facility] [address] [place] [id number] [address] [place] [address] Nov, [facility] [address] [facility] [id number] [address] [place] [address] Oct, [facility] [address] [facility] [id number] [address] [place] [address] Oct, Hyperlipidemia 272.4 ; Chron ic pain disorder 338.4 ; Venous stasis ulcer of left lower extremity 454.0 and Factor V Leiden 289.81 [facility] [address] [place] [id number] [place] [address] Sep, [facility] [address] [place] [id number] [place] [address] Sep, [facility] [address] [place] [id number] [place] [address] Sep, Hyperlipidemia 272.4 and Fac tor V Leiden 289.81 [facility] [address] [place] [id number] [address] [place] [address] Aug, [facility] [address] [place] [id number] [place] [address] Aug, Factor V Leiden 289.81 [facility] [address] [place] [id number] [address] [place] [address] July, [facility] [address] [place] [id number] [address] [place] [address] July, Essential hypertension, fito gn 401.1 ; Factor V Leiden 289.81 ; Chronic pain disorder 338.4 ; Hyperlipidemia 272.4 and Venous stasis ulcer of left lower extremity 454.0 [facility] [address] [address] Jun, [facility] [address] [place] [id number] [place] [address] Jun, [facility] [address] [address] May, [facility] [address] [id number] [address] [place] [address], [place] [address] May, [facility] [address] [id number] [address] [place] [address], [place] [address] 20 Apr, 2014 [facility] [address] [id number] [address] [place] [address], [place] [address] Apr, [facility] [address] [id number] [address] [place] [address], [place] [address] Apr, [facility] [address] [id number] [address] [place] [address], [place] [address] Apr, [facility] [address] [id number] [address] [place] [address], [place] [address] Apr, [facility] [address] [id number] [address] [place] [address], [place] [address] Apr, [facility] [address] [id number] [address] [place] [address], [place] [address] Mar, [facility] [address] [id number] [address] [place] [address], [place] [address] Mar, [facility] [address] [id number] [address] [place] [address], [place] [address] Mar, [facility] [address] [id number] [address] [place] [address], [place] [address] Mar, [facility] [address] [id number] [address] [place] [address], [place] [address] Feb, [facility] [address] [id number] [address] [place] [address], [place] [address] Feb, [facility] [address] [id number] [address] [place] [address], [place] [address] 16 Feb, 2014 [facility] [address] [id number] [address] [place] [address], [place] [address] 16 Feb, 2014 [facility] [address] [id number] [address] [place] [address], [place] [address] Jan, [facility] [address] [id number] [address] [place] [address], [place] [address] Jan, [facility] [address] [id number] [address] [place] [address], [place] [address] Jan, [facility] [address] [id number] [address] [place] [address], [place] [address] Jan, [facility] [address] [id number] [address] [place] [address], [place] [address] Jan, [facility] [address] [id number] [address] [place] [address], [place] [address] Jan, [facility] [address] [id number] [address] [place] [address], [place] [address] Dec, [facility] [address] [id number] [address] [place] [address], [place] [address] Dec, [facility] [address] [id number] [address] [place] [address], [place] [address] Oct, [facility] [address] [id number] [address] [place] [address], [place] [address] Oct, [facility] [address] [id number] [address] [place] [address], [place] [address] Sep, [facility] [address] [id number] [address] [place] [address], [place] [address] Sep, [facility] [address] [id number] [address] [place] [address], [place] [address] Sep, [facility] [address] [id number] [address] [place] [address], [place] [address] Sep, [facility] [address] [id number] [address] [place] [address], [place] [address] Aug, [facility] [address] [id number] [address] [place] [address], [place] [address] Aug, [facility] [address] [id number] [address] [place] [address], [place] [address] July, [facility] [address] [id number] [address] [place] [address], [place] [address] July, [facility] [address] [id number] [address] [place] [address], [place] [address] Jun, [facility] [address] [id number] [address] [place] [address], [place] [address] Jun, [facility] [address] [id number] [address] [place] [address], [place] [id number] May, [facility] [address] [id number] [address] [place] [address], [place] [id number] May, [facility] [address] [id number] [address] [place] [address], [place] [id number] Apr, [facility] [address] [id number] [address] [place] [address], [place] [id number] Apr, [facility] [address] [id number] [address] [place] [address], [place] [id number] Mar, [facility] [address] [id number] [address] [place] [address], [place] [id number] Mar, [facility] [address] [id number] [address] [place] [address], [place] [id number] Jan, [facility] [address] [id number] [address] [place] [address], [place] [id number] Jan, [facility] [address] [id number] [address] [place] [address], [place] [id number] Jan, [facility] [address] [id number] [address] [place] [address], [place] [id number] Jan, [facility] [address] [id number] [address] [place] [address], [place] [id number] Jan, [facility] [address] [id number] [address] [place] [id number] Dec, [facility] [address] [id number] [address] [place] [address], [place] [id number] Dec, [facility] [address] [id number] [address] [place] [id number] Dec, [facility] [address] [id number] [address] [place] [address], [place] [id number] Nov, [facility] [address] [id number] [address] [place] [id number] Nov, [facility] [address] [id number] [address] [place] [address], [place] [id number] Sep, [facility] [address] [id number] [address] [place] [address], [place] [id number] Sep, [facility] [address] [id number] [address] [place] [id number] Aug, [facility] [address] [id number] [address] [place] [address], [place] [id number] Aug, [facility] [address] [id number] [place] [id number] July, [facility] [address] [id number] [place] [id number] Jun, [facility] [address] [id number] [place] [id number] Apr, [facility] [address] [id number] [place] [id number] Mar, [facility] [address] [address] [id number] [address] [place] [address], [place] [id number] Mar, [facility] [address] [id number] [place] [id number] Mar, [facility] [address] [id number] [address] [place] [address], [place] [id number] Mar, [facility] [address] [id number] [place] [id number] Feb, [facility] [address] [id number] [address] [place] [id number] Feb, [facility] [address] [id number] [place] [id number] Feb, [facility] [address] [facility] [id number] [address] [place] [id number] Feb, [facility] [address] [id number] [place] [id number] Oct, [facility] [address] [id number] [place] [id number] Oct, [facility] [address] [id number] [place] [id number] July, [facility] [address] [id number] [place] [id number] July, [facility] [address] [id number] [place] [id number] Jun, [facility] [address] [id number] [place] [id number] Jun, [facility] [address] [id number] [place] [id number] Jun, [facility] [address] [id number] [place] [id number] Mar, [facility] [address] [id number] [place] [id number] Mar, [facility] [address] [facility] [id number] [address] [place] [id number] Feb, [facility] [address] [facility] [id number] [address] [place] [phone] Feb, [facility] [address] [facility] [id number] [address] [place] [phone] Jan, [facility] [address] [facility] [id number] [address] [place] [id number] Jan, [facility] [address] [facility] [id number] [address] [place] [phone] Jan, [facility] [address] [facility] [id number] [address] [place] [phone] Jan, [facility] [address] [facility] [id number] [address] [place] [id number] Jan, [facility] [address] [facility] [id number] [address] [place] [phone] Aug, [facility] [address] [facility] [id number] [address] [place] [id number] 17 Apr, 2010 IMMUNIZATIONS No Known Immunizations SOCIAL HISTORY Never Assessed REASON FOR VISIT PA-[place] PLAN OF CARE VITAL SIGNS MEDICATIONS Unknown [...]
--- OUTSIDE RECORDS SUMMARY | 2019-11-08 13:11 | XMS REPORT ---
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 Senior Software Quality Engineer Name Role Phone DIANADAVIDAVANI Unavailable PROBLEMS Type Condition ICD9-CM Code SBG90-XL Code Onset Dates Condition S tatus SNOMED Code Problem Factor V Leiden D68.51 Active 3070 88655 Problem Post-phlebitic syndrome I87.009 Active 99083218 Problem Anticoagulant long-term use Z79.01 Ac tive 519484317 Problem Essential hypertension I10 Active 14342174 Problem Other chronic pain G89.29 Active 8 9356810 Problem Venous stasis ulcers, left I83.029 Act ozzy 623712934 Problem 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 49855818 Problem Congenital single kidney Q60.0 Activ e 11058137 Problem Venous anomaly Q27.9 Active 69116 4003 Problem Pure hypercholesterolemia E78.00 Acti ve 069192089 Problem Chronic prescription opiate use Z79.899 Active 234984344 ALLERGIES No Information ENCOUNTERS Encounter Location Date Diagnosis [facility] [address] [facility] [id number] [address] [place] [address] Sep, Other chronic pain G89.29 [facility] [address] [facility] [id number] [address] [place] [id number] 18 Aug, 2017 Other chronic pain G89.29 [facility] [address] [facility] [id number] [address] [place] [address] 11 Aug, 2017 Venous stasis ulcers, left I 83.029 [facility] [address] [facility] [id number] [address] [place] [address] July, Other chronic pain G89.29 [facility] [address] [facility] [id number] [address] [place] [address] July, Venous stasis ulcers, left I 83.029 and Snoring R06.83 [place] [address] [facility] [id number] [address] [place] [address] Jun, Idiopathic chronic gout of ultiple sites without tophus M1A.09X0 [place] [address] [facility] [id number] [address] [place] [address] Jun, Acute renal insufficiency N2 8.9 [place] [address] [facility] [id number] [address] [place] [address] Jun, Other chronic pain G89.29 [place] [address] [facility] [id number] [address] [place] [address] Jun, Acute renal insufficiency N2 8.[id number] [place] [address] [id number] Jun, Idiopathic chronic gout of multiple site s without tophus M1A.09X0 ; Essential hypertension I10 and Anticoagulant long-term use Z79.01 [place] [address] [facility] [id number] [address] [place] [address] Jun, Anticoagulant long-term use Z79.01 and Essential hypertension I10 [place] [address] [facility] [id number] [address] [place] [address] May, Idiopathic chronic gout of ultiple sites without tophus M1A.09X0 [place] [address] [facility] [id number] [address] [place] [address] May, [place] [address] [facility] [id number] [address] [place] [address] May, Essential hypertension I10 ; Pure hypercholesterolemia E78.00 ; Anticoagulant long-term use Z79.01 and Idiopathic chronic gout of multiple sites without tophus M1A.09X0 [place] [address] [facility] [id number] [address] [place] [address] May, Other chronic pain G89.29 [place] [address] [facility] [id number] [address] [place] [address] May, Anticoagulant long-term use Z79.01 [place] [address] [facility] [id number] [address] [place] [address] May, Chronic prescription opiate use Z79.899 ; Other chronic pain G89.29 ; Essential hypertension I10 ; Factor V Leiden D68.51 ; Anticoagulant long-term use Z79.01 ; Pure hypercholesterolemia E78.00 ; Venous stasis ulcers, left I83.029 ; Idiopathic chronic gout of multiple sites without tophus M1A.09X0 and Cellulitis of left lower extremity L03.116 [place] [address] [facility] [id number] [address] [place] [address] Apr, Other chronic pain G89.29 [place] [address] [place] [id number] [address] [place] [address] Mar, Other chronic pain G89.29 [place] [address] [place] [id number] [address] [place] [address] Mar, Factor V Leiden D68.51 ; Pur e hypercholesterolemia E78.00 and Other chronic pain G89.29 [place] [address] [place] [id number] [address] [place] [address] Feb, Other chronic pain G89.29 [place] [address] [place] [id number] [address] [place] [address] Jan, Idiopathic chronic gout of m ultiple sites without tophus M1A.09X0 [place] [address] [facility] [id number] [address] [place] [address] Jan, Other chronic pain G89.29 [place] [address] [facility] [id number] [address] [place] [address] Dec, Anticoagulant long-term use Z79.01 ; Factor V Leiden D68.51 and Other chronic pain G89.29 [place] [address] [place] [id number] [address] [place] [address] Dec, Other chronic pain G89.29 [facility] [address] [facility] [id number] [address] [place] [address] Nov, Other chronic pain G89.29 [facility] [address] [facility] [id number] [address] [place] [address] 16 Oct, 2016 Other chronic pain G89.29 [place] [address] [facility] [id number] [address] [place] [address] Sep, Anticoagulant long-term use Z79.01 [facility] [address] [facility] [id number] [address] [place] [address] Sep, Chronic prescription opiate use Z79.899 ; Anticoagulant long-term use Z79.01 ; Essential hypertension I10 ; Pure hypercholesterolemia E78.00 ; Factor V Leiden D68.51 ; Venous stasis ulcers, left I83.029 ; Other chronic pain G89.29 and Idiopathic chronic gout of multiple sites without tophus M1A.09X0 [place] [address] [facility] [id number] [address] [place] [address] Aug, Anticoagulant long-term use Z79.01 [place] [address] [facility] [id number] [address] [place] [address] Aug, Other chronic pain G89.29 [place] [address] [facility] [id number] [address] [place] [address] Aug, Essential hypertension I10 a nd Factor V Leiden D68.[address] [place] [id number] [place] [address] [id number] 15 Aug, 2016 Acute right ankle pain M25.571 and Tendo nitis of ankle M77.50 [place] [address] [facility] [id number] [address] [place] [address] Aug, [place] [address] [facility] [id number] [address] [place] [address] July, Other chronic pain G89.29 [place] [address] [facility] [id number] [address] [place] [address] Jun, Other chronic pain G89.29 [facility] [address] [id number] [address] [place] [address] Jun, Other chronic pain G89.29 [facility] [address] [facility] [id number] [address] [place] [address] Jun, Anticoagulant long-term use Z79.01 [facility] [address] [facility] [id number] [address] [place] [address] May, Other chronic pain G89.29 [facility] [address] [facility] [id number] [address] [place] [address] May, Anticoagulant long-term use Z79.01 [facility] [address] [facility] [id number] [address] [place] [address] May, Other chronic pain G89.29 [facility] [address] [facility] [id number] [address] [place] [address] Apr, Anticoagulant long-term use Z79.01 [facility] [address] [facility] [id number] [address] [place] [address] Apr, Other chronic pain G89.29 [facility] [address] [facility] [id number] [address] [place] [address] Apr, Anticoagulant long-term use Z79.01 and Pure hypercholesterolemia E78.00 [facility] [address] [facility] [id number] [address] [place] [address] Mar, [facility] [address] [facility] [id number] [address] [place] [address] Mar, Anticoagulant long-term use Z79.01 [facility] [address] [facility] [id number] [address] [place] [address] Mar, Other chronic pain G89.29 [facility] [address] [facility] [id number] [address] [place] [address] Feb, Essential hypertension I10 ; Chronic prescription opiate use Z79.899 ; Other chronic pain G89.29 ; Screening Z13.9 ; Factor V Leiden D68.51 ; Anticoagulant long-term use Z79.01 ; Venous stasis dermatitis of left lower extremity I83.12 and Pure hypercholesterolemia E78.00 [facility] [address] [facility] [id number] [address] [place] [address] 14 Jan, 2016 Anticoagulant long-term use Z79.01 [facility] [address] [id number] [address] [place] [address] Jan, Anticoagulant long-term use Z79.01 [facility] [address] [facility] [id number] [address] [place] [address] Jan, [facility] [address] [facility] [id number] [address] [place] [address] Jan, [facility] [address] [facility] [id number] [address] [place] [address] Dec, [facility] [address] [facility] [id number] [address] [place] [address] Nov, [facility] [address] [facility] [id number] [address] [place] [address] Oct, Anticoagulant long-term use Z79.01 [facility] [address] [facility] [id number] [address] [place] [address] Oct, [facility] [address] [facility] [id number] [address] [place] [address] Oct, Anticoagulant long-term use Z79.01 [facility] [address] [id number] [address] [place] [address] Sep, [facility] [address] [facility] [id number] [address] [place] [address] Aug, [facility] [address] [facility] [id number] [address] [place] [address] Aug, Chronic prescription opiate use Z79.899 ; Other chronic pain G89.29 ; Essential hypertension I10 and Pure hypercholesterolemia E78.0 [facility] [address] [facility] [id number] [address] [place] [address] July, Hyperlipidemia, group D E78. 3 and Anticoagulant long-term use Z79.01 [facility] [address] [facility] [id number] [address] [place] [address] July, Hyperlipidemia, group D E78. 3 ; Essential hypertension I10 and Factor V Leiden D68.51 [facility] [address] [facility] [id number] [address] [place] [address] July, Essential hypertension I10 [place] [address] [facility] [id number] [address] [place] [address] Jun, Hyperlipidemia, group D E78. 3 [place] [address] [facility] [id number] [address] [place] [address] Jun, Factor V Leiden D68.51 [facility] [address] [facility] [id number] [address] [place] [address] May, Factor V Leiden D68.51 ; Hyp erlipidemia, group D E78.3 ; Essential hypertension I10 ; Other chronic pain G89.29 and Anticoagulant long-term use Z79.01 [place] [id number] [facility] [id number] [address] [place] [address] May, Anticoagulant long-term use Z79.01 [facility] [address] [facility] [id number] [address] [place] [address] May, Anticoagulant long-term use Z79.01 [facility] [address] [facility] [id number] [address] [place] [address] May, [place] [address] [facility] [id number] [address] [place] [address] Apr, [facility] [address] [facility] [id number] [address] [place] [address] Mar, [facility] [address] [facility] [id number] [address] [place] [address] Mar, [facility] [address] [facility] [id number] [address] [place] [address] Feb, Anticoagulant long-term use Z79.01 [facility] [address] [facility] [id number] [address] [place] [address] 16 Feb, 2015 Chronic prescription opiate use Z79.899 ; Other chronic pain G89.29 ; Hyperlipidemia, group D E78.3 ; Factor V Leiden D68.51 and Anticoagulant long- term use Z79.01 [facility] [address] [facility] [id number] [address] [place] [address] Feb, [facility] [address] [place] [id number] [place] [address] Jan, [facility] [address] [address] Dec, Hyperlipidemia, unspecified E78.5 [facility] [address] [facility] [id number] [address] [place] [address] Dec, Cellulitis of left lower ext remity L03.116 ; Venous stasis ulcers, left I83.029 and Factor V Leiden D68.51 [facility] [address] [place] [id number] [address] [place] [address] Dec, Hyperlipidemia 272.4 and Fac tor V Leiden 289.81 [facility] [address] [facility] [id number] [address] [place] [address] Dec, [facility] [address] [facility] [id number] [address] [place] [address] Nov, Factor V Leiden 289.81 [facility] [address] [place] [id number] [address] [place] [address] Nov, [facility] [address] [place] [id number] [address] [place] [address] Nov, [facility] [address] [place] [id number] [address] [place] [address] Nov, [facility] [address] [facility] [id number] [address] [place] [address] Oct, [facility] [address] [facility] [id number] [address] [place] [address] Oct, Hyperlipidemia 272.4 ; Chron ic pain disorder 338.4 ; Venous stasis ulcer of left lower extremity 454.0 and Factor V Leiden 289.81 [facility] [address] [place] [id number] [place] [address] Sep, [facility] [address] [place] [id number] [place] [address] Sep, [facility] [address] [place] [id number] [place] [address] Sep, Hyperlipidemia 272.4 and Fac tor V Leiden 289.81 [facility] [address] [place] [id number] [address] [place] [address] Aug, [facility] [address] [place] [id number] [place] [address] Aug, Factor V Leiden 289.81 [facility] [address] [place] [id number] [address] [place] [address] July, [facility] [address] [place] [id number] [address] [place] [address] July, Essential hypertension, fito gn 401.1 ; Factor V Leiden 289.81 ; Chronic pain disorder 338.4 ; Hyperlipidemia 272.4 and Venous stasis ulcer of left lower extremity 454.0 [facility] [address] [address] Jun, [facility] [address] [place] [id number] [place] [address] Jun, [facility] [address] [address] May, [facility] [address] [id number] [address] [place] [address], [place] [address] May, [facility] [address] [id number] [address] [place] [address], [place] [address] 20 Apr, 2014 [facility] [address] [id number] [address] [place] [address], [place] [address] Apr, [facility] [address] [id number] [address] [place] [address], [place] [address] Apr, [facility] [address] [id number] [address] [place] [address], [place] [address] Apr, [facility] [address] [id number] [address] [place] [address], [place] [address] Apr, [facility] [address] [id number] [address] [place] [address], [place] [address] Apr, [facility] [address] [id number] [address] [place] [address], [place] [address] Mar, [facility] [address] [id number] [address] [place] [address], [place] [address] Mar, [facility] [address] [id number] [address] [place] [address], [place] [address] Mar, [facility] [address] [id number] [address] [place] [address], [place] [address] Mar, [facility] [address] [id number] [address] [place] [address], [place] [address] Feb, [facility] [address] [id number] [address] [place] [address], [place] [address] Feb, [facility] [address] [id number] [address] [place] [address], [place] [address] 16 Feb, 2014 [facility] [address] [id number] [address] [place] [address], [place] [address] 16 Feb, 2014 [facility] [address] [id number] [address] [place] [address], [place] [address] Jan, [facility] [address] [id number] [address] [place] [address], [place] [address] Jan, [facility] [address] [id number] [address] [place] [address], [place] [address] Jan, [facility] [address] [id number] [address] [place] [address], [place] [address] Jan, [facility] [address] [id number] [address] [place] [address], [place] [address] Jan, [facility] [address] [id number] [address] [place] [address], [place] [address] Jan, [facility] [address] [id number] [address] [place] [address], [place] [address] Dec, [facility] [address] [id number] [address] [place] [address], [place] [address] Dec, [facility] [address] [id number] [address] [place] [address], [place] [address] Oct, [facility] [address] [id number] [address] [place] [address], [place] [address] Oct, [facility] [address] [id number] [address] [place] [address], [place] [address] Sep, [facility] [address] [id number] [address] [place] [address], [place] [address] Sep, [facility] [address] [id number] [address] [place] [address], [place] [address] Sep, [facility] [address] [id number] [address] [place] [address], [place] [address] Sep, [facility] [address] [id number] [address] [place] [address], [place] [address] Aug, [facility] [address] [id number] [address] [place] [address], [place] [address] Aug, [facility] [address] [id number] [address] [place] [address], [place] [address] July, [facility] [address] [id number] [address] [place] [address], [place] [address] July, [facility] [address] [id number] [address] [place] [address], [place] [address] Jun, [facility] [address] [id number] [address] [place] [address], [place] [address] Jun, [facility] [address] [id number] [address] [place] [address], [place] [address] May, [facility] [address] [id number] [address] [place] [address], [place] [address] May, [facility] [address] [id number] [address] [place] [address], [place] [address] Apr, [facility] [address] [id number] [address] [place] [address], [place] [address] Apr, [facility] [address] [id number] [address] [place] [address], [place] [address] Mar, [facility] [address] [id number] [address] [place] [address], [place] [address] Mar, [facility] [address] [id number] [address] [place] [address], [place] [address] Jan, [facility] [address] [id number] [address] [place] [address], [place] [address] Jan, [facility] [address] [id number] [address] [place] [address], [place] [address] Jan, [facility] [address] [id number] [address] [place] [address], [place] [address] Jan, [facility] [address] [id number] [address] [place] [address], [place] [address] Jan, [facility] [address] [id number] [address] [place] [address] Dec, [facility] [address] [id number] [address] [place] [address], [place] [address] Dec, [facility] [address] [id number] [address] [place] [id number] Dec, [facility] [address] [id number] [address] [place] [address], [place] [address] Nov, [facility] [address] [id number] [address] [place] [id number] Nov, [facility] [address] [id number] [address] [place] [address], [place] [address] Sep, [facility] [address] [id number] [address] [place] [address], [place] [address] Sep, [facility] [address] [id number] [address] [place] [id number] Aug, [facility] [address] [id number] [address] [place] [address], [place] [address] Aug, [facility] [address] [id number] [place] [id number] July, [facility] [address] [id number] [place] [id number] Jun, [facility] [address] [id number] [place] [id number] Apr, [facility] [address] [id number] [place] [id number] Mar, [facility] [address] [id number] [address] [place] [address], [place] [address] Mar, [facility] [address] [id number] [place] [id number] Mar, [facility] [address] [id number] [address] [place] [address], [place] [address] Mar, [facility] [address] [id number] [place] [id number] Feb, [facility] [address] [id number] [address] [place] [id number] Feb, [facility] [address] [id number] [place] [id number] Feb, [facility] [address] [facility] [id number] [address] [place] [id number] Feb, [facility] [place] [address] [id number] [place] [id number] Oct, [facility] [address] [id number] [place] [id number] Oct, [facility] [address] [id number] [place] [id number] July, [facility] [place] [address] [id number] [place] [id number] July, [facility] [address] [id number] [place] [id number] Jun, [facility] [address] [id number] [place]IN[place], [place] [id number] Jun, [facility] [address] [id number] [place] [id number] Jun, [facility] [address] [id number] [place]IN[place] [id number] Mar, [facility] [address] [id number] [place]IN[place], [place] [id number] Mar, [facility] [address] [facility] [id number] [address] [place] [id number] Feb, [facility] [address] [facility] [id number] [address] [place] [id number] Feb, [facility] [address] [facility] [id number] [address] [place] [id number] Jan, [facility] [address] [facility] [id number] [address] [place] [id number] Jan, [facility] [address] [facility] [id number] [address] [place] [phone] Jan, [facility] [address] [facility] [id number] [address] [place] [id number] Jan, [facility] [address] [facility] [id number] [address] [place] [phone] Jan, [facility] [address] [facility] [id number] [address] [place] [phone] Aug, [facility] [address] [facility] [id number] [address] [place] [id number] 17 Apr, 2010 IMMUNIZATIONS No Known Immunizations SOCIAL HISTORY Never Assessed REASON FOR VISIT per lab results PLAN OF CARE VITAL SIGNS MEDICATIONS [...]
--- OUTSIDE RECORDS SUMMARY | 2019-11-08 13:11 | XMS REPORT ---
Author Author Zana ORTIZ [facility] Address [address] [place] [address] Care Team Providers Care Script Girl Name Role Phone DIANADAVIDAVANI Unavailable PROBLEMS Type Condition ICD9-CM Code TLH19-CD Code Onset Dates Condition S tatus SNOMED Code Problem Factor V Leiden D68.51 Active 3070 96853 Problem Post-phlebitic syndrome I87.009 Active 38816933 Problem Anticoagulant long-term use Z79.01 Ac tive 396438918 Problem Essential hypertension I10 Active 39534095 Problem Other chronic pain G89.29 Active 8 1038920 Problem Venous stasis ulcers, left I83.029 Act ozzy 348754409 Problem 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 96780744 Problem Congenital single kidney Q60.0 Activ e 97615040 Problem Venous anomaly Q27.9 Active 99397 4003 Problem Pure hypercholesterolemia E78.00 Acti ve 588034117 Problem Chronic prescription opiate use Z79.899 Active 263303854 ALLERGIES No Information ENCOUNTERS Encounter Location Date Diagnosis [facility] [address] [facility] [id number] [address] [place] [address] Sep, Other chronic pain G89.29 [facility] [address] [facility] [id number] [address] [place] [id number] 18 Aug, 2017 Other chronic pain G89.29 [facility] [address] [facility] [id number] [address] [place] [address] 11 Aug, 2017 Venous stasis ulcers, left I 83.029 [facility] [address] [facility] [id number] [address] [place] [address] July, Other chronic pain G89.29 [facility] [address] [facility] [id number] [address] [place] [address] July, Venous stasis ulcers, left I 83.029 and Snoring R06.83 [facility] [address] [facility] [id number] [address] [place] [address] Jun, Idiopathic chronic gout of ultiple sites without tophus M1A.09X0 [facility] [address] [facility] [id number] [address] [place] [address] Jun, Acute renal insufficiency N2 8.9 [facility] [address] [facility] [id number] [address] [place] [address] Jun, Other chronic pain G89.29 [facility] [address] [facility] [id number] [address] [place] [address] Jun, Acute renal insufficiency N2 8.[id number] [place] [id number] Jun, Idiopathic chronic gout of multiple site s without tophus M1A.09X0 ; Essential hypertension I10 and Anticoagulant long-term use Z79.01 [facility] [address] [facility] [id number] [address] [place] [address] Jun, Anticoagulant long-term use Z79.01 and Essential hypertension I10 [facility] [facility] [address] [facility] [id number] [address] [place] [address] May, Idiopathic chronic gout of ultiple sites without tophus M1A.09X0 [facility] [facility] [address] [facility] [id number] [address] [place] [address] May, [facility] [address] [facility] [id number] [address] [place] [address] May, Essential hypertension I10 ; Pure hypercholesterolemia E78.00 ; Anticoagulant long-term use Z79.01 and Idiopathic chronic gout of multiple sites without tophus M1A.09X0 [facility] [facility] [address] [facility] [id number] [address] [place] [address] May, Other chronic pain G89.29 [facility] [address] [facility] [id number] [address] [place] [address] May, Anticoagulant long-term use Z79.01 [facility] [address] [facility] [id number] [address] [place] [address] May, Chronic prescription opiate use Z79.899 ; Other chronic pain G89.29 ; Essential hypertension I10 ; Factor V Leiden D68.51 ; Anticoagulant long-term use Z79.01 ; Pure hypercholesterolemia E78.00 ; Venous stasis ulcers, left I83.029 ; Idiopathic chronic gout of multiple sites without tophus M1A.09X0 and Cellulitis of left lower extremity L03.116 [facility] [facility] [address] [facility] [id number] [address] [place] [address] Apr, Other chronic pain G89.29 [facility] [address] [place] [id number] [address] [place] [address] Mar, Other chronic pain G89.29 [facility] [address] [place] [id number] [address] [place] [address] Mar, Factor V Leiden D68.51 ; Pur e hypercholesterolemia E78.00 and Other chronic pain G89.29 [facility] [facility] [address] [place] [id number] [address] [place] [address] Feb, Other chronic pain G89.29 [facility] [address] [place] [id number] [address] [place] [address] Jan, Idiopathic chronic gout of m ultiple sites without tophus M1A.09X0 [facility] [address] [facility] [id number] [address] [place] [address] Jan, Other chronic pain G89.29 [facility] [address] [facility] [id number] [address] [place] [address] Dec, Anticoagulant long-term use Z79.01 ; Factor V Leiden D68.51 and Other chronic pain G89.29 [facility] [address] [place] [id number] [address] [place] [address] Dec, Other chronic pain G89.29 [facility] [address] [facility] [id number] [address] [place] [address] Nov, Other chronic pain G89.29 [facility] [address] [facility] [id number] [address] [place] [address] 16 Oct, 2016 Other chronic pain G89.29 [facility] [address] [facility] [id number] [address] [place] [address] Sep, Anticoagulant long-term use Z79.01 [facility] [address] [facility] [id number] [address] [place] [address] Sep, Chronic prescription opiate use Z79.899 ; Anticoagulant long-term use Z79.01 ; Essential hypertension I10 ; Pure hypercholesterolemia E78.00 ; Factor V Leiden D68.51 ; Venous stasis ulcers, left I83.029 ; Other chronic pain G89.29 and Idiopathic chronic gout of multiple sites without tophus M1A.09X0 [facility] [facility] [address] [facility] [id number] [address] [place] [address] Aug, Anticoagulant long-term use Z79.01 [facility] [address] [facility] [id number] [address] [place] [address] Aug, Other chronic pain G89.29 [facility] [address] [facility] [id number] [address] [place] [address] Aug, Essential hypertension I10 a nd Factor V Leiden D68.[address] [facility] [id number] [place] [id number] 15 Aug, 2016 Acute right ankle pain M25.571 and Tendo nitis of ankle M77.50 [facility] [address] [facility] [id number] [address] [place] [address] Aug, [facility] [place] [address] [facility] [id number] [address] [place] [address] July, Other chronic pain G89.29 [facility] [address] [facility] [id number] [address] [place] [address] Jun, Other chronic pain G89.29 [facility] [address] [id number] [address] [place] [address] Jun, Other chronic pain G89.29 [facility] [address] [facility] [id number] [address] [place] [address] Jun, Anticoagulant long-term use Z79.01 [facility] [address] [facility] [id number] [address] [place] [address] May, Other chronic pain G89.29 [facility] [address] [facility] [id number] [address] [place] [address] May, Anticoagulant long-term use Z79.01 [facility] [address] [facility] [id number] [address] [place] [address] May, Other chronic pain G89.29 [facility] [address] [facility] [id number] [address] [place] [address] Apr, Anticoagulant long-term use Z79.01 [facility] [address] [facility] [id number] [address] [place] [address] Apr, Other chronic pain G89.29 [facility] [address] [facility] [id number] [address] [place] [address] Apr, Anticoagulant long-term use Z79.01 and Pure hypercholesterolemia E78.00 [facility] [address] [facility] [id number] [address] [place] [address] Mar, [facility] [address] [facility] [id number] [address] [place] [address] Mar, Anticoagulant long-term use Z79.01 [facility] [address] [facility] [id number] [address] [place] [address] Mar, Other chronic pain G89.29 [facility] [address] [facility] [id number] [address] [place] [address] Feb, Essential hypertension I10 ; Chronic prescription opiate use Z79.899 ; Other chronic pain G89.29 ; Screening Z13.9 ; Factor V Leiden D68.51 ; Anticoagulant long-term use Z79.01 ; Venous stasis dermatitis of left lower extremity I83.12 and Pure hypercholesterolemia E78.00 [facility] [address] [facility] [id number] [address] [place] [id number] 14 Jan, 2016 Anticoagulant long-term use Z79.01 [facility] [address] [id number] [address] [place] [address] Jan, Anticoagulant long-term use Z79.01 [facility] [address] [facility] [id number] [address] [place] [address] Jan, [facility] [address] [facility] [id number] [address] [place] [address] Jan, [facility] [address] [facility] [id number] [address] [place] [address] Dec, [facility] [address] [facility] [id number] [address] [place] [address] Nov, [facility] [address] [facility] [id number] [address] [place] [address] Oct, Anticoagulant long-term use Z79.01 [facility] [address] [facility] [id number] [address] [place] [address] Oct, [facility] [address] [facility] [id number] [address] [place] [address] Oct, Anticoagulant long-term use Z79.01 [facility] [address] [id number] [address] [place] [address] Sep, [facility] [address] [facility] [id number] [address] [place] [address] Aug, [facility] [address] [facility] [id number] [address] [place] [address] Aug, Chronic prescription opiate use Z79.899 ; Other chronic pain G89.29 ; Essential hypertension I10 and Pure hypercholesterolemia E78.0 [facility] [address] [facility] [id number] [address] [place] [address] July, Hyperlipidemia, group D E78. 3 and Anticoagulant long-term use Z79.01 [facility] [address] [facility] [id number] [address] [place] [address] July, Hyperlipidemia, group D E78. 3 ; Essential hypertension I10 and Factor V Leiden D68.51 [facility] [address] [facility] [id number] [address] [place] [address] July, Essential hypertension I10 [facility] [address] [facility] [id number] [address] [place] [address] Jun, Hyperlipidemia, group D E78. 3 [facility] [facility] [address] [facility] [id number] [address] [place] [address] Jun, Factor V Leiden D68.51 [facility] [address] [facility] [id number] [address] [place] [address] May, Factor V Leiden D68.51 ; Hyp erlipidemia, group D E78.3 ; Essential hypertension I10 ; Other chronic pain G89.29 and Anticoagulant long-term use Z79.01 [place] [address] [facility] [id number] [address] [place] [address] May, Anticoagulant long-term use Z79.01 [facility] [address] [facility] [id number] [address] [place] [address] May, Anticoagulant long-term use Z79.01 [facility] [address] [facility] [id number] [address] [place] [address] May, [place] [address] [facility] [id number] [address] [place] [address] Apr, [facility] [address] [facility] [id number] [address] [place] [address] Mar, [facility] [address] [facility] [id number] [address] [place] [address] Mar, [facility] [address] [facility] [id number] [address] [place] [address] Feb, Anticoagulant long-term use Z79.01 [facility] [address] [facility] [id number] [address] [place] [address] 16 Feb, 2015 Chronic prescription opiate use Z79.899 ; Other chronic pain G89.29 ; Hyperlipidemia, group D E78.3 ; Factor V Leiden D68.51 and Anticoagulant long- term use Z79.01 [facility] [address] [facility] [id number] [address] [place] [address] Feb, [facility] [address] [place] [id number] [place] [address] Jan, [facility] [address] [address] Dec, Hyperlipidemia, unspecified E78.5 [facility] [address] [facility] [id number] [address] [place] [address] Dec, Cellulitis of left lower ext remity L03.116 ; Venous stasis ulcers, left I83.029 and Factor V Leiden D68.51 [facility] [address] [place] [id number] [address] [place] [address] Dec, Hyperlipidemia 272.4 and Fac tor V Leiden 289.81 [facility] [address] [facility] [id number] [address] [place] [address] Dec, [facility] [address] [facility] [id number] [address] [place] [address] Nov, Factor V Leiden 289.81 [facility] [address] [place] [id number] [address] [place] [address] Nov, [facility] [address] [place] [id number] [address] [place] [address] Nov, [facility] [address] [place] [id number] [address] [place] [address] Nov, [facility] [address] [facility] [id number] [address] [place] [address] Oct, [facility] [address] [facility] [id number] [address] [place] [address] Oct, Hyperlipidemia 272.4 ; Chron ic pain disorder 338.4 ; Venous stasis ulcer of left lower extremity 454.0 and Factor V Leiden 289.81 [facility] [address] [place] [id number] [place] [address] Sep, [facility] [address] [place] [id number] [place] [address] Sep, [facility] [address] [place] [id number] [place] [address] Sep, Hyperlipidemia 272.4 and Fac tor V Leiden 289.81 [facility] [address] [place] [id number] [address] [place] [address] Aug, [facility] [address] [place] [id number] [place] [address] Aug, Factor V Leiden 289.81 [facility] [address] [place] [id number] [address] [place] [address] July, [facility] [address] [place] [id number] [address] [place] [address] July, Essential hypertension, fito gn 401.1 ; Factor V Leiden 289.81 ; Chronic pain disorder 338.4 ; Hyperlipidemia 272.4 and Venous stasis ulcer of left lower extremity 454.0 [facility] [address] [address] Jun, [facility] [address] [place] [id number] [place] [address] Jun, [facility] [address] [address] May, [facility] [address] [id number] [address] [place] [address], [place] [address] May, [facility] [address] [id number] [address] [place] [address], [place] [address] 20 Apr, 2014 [facility] [address] [id number] [address] [place] [address], [place] [address] Apr, [facility] [address] [id number] [address] [place] [address], [place] [address] Apr, [facility] [address] [id number] [address] [place] [address], [place] [address] Apr, [facility] [address] [id number] [address] [place] [address], [place] [address] Apr, [facility] [address] [id number] [address] [place] [address], [place] [address] Apr, [facility] [address] [id number] [address] [place] [address], [place] [address] Mar, [facility] [address] [id number] [address] [place] [address], [place] [address] Mar, [facility] [address] [id number] [address] [place] [address], [place] [address] Mar, [facility] [address] [id number] [address] [place] [address], [place] [address] Mar, [facility] [address] [id number] [address] [place] [address], [place] [address] Feb, [facility] [address] [id number] [address] [place] [address], [place] [address] Feb, [facility] [address] [id number] [address] [place] [address], [place] [address] 16 Feb, 2014 [facility] [address] [id number] [address] [place] [address], [place] [address] 16 Feb, 2014 [facility] [address] [id number] [address] [place] [address], [place] [address] Jan, [facility] [address] [id number] [address] [place] [address], [place] [address] Jan, [facility] [address] [id number] [address] [place] [address], [place] [address] Jan, [facility] [address] [id number] [address] [place] [address], [place] [address] Jan, [facility] [address] [id number] [address] [place] [address], [place] [address] Jan, [facility] [address] [id number] [address] [place] [address], [place] [address] Jan, [facility] [address] [id number] [address] [place] [address], [place] [address] Dec, [facility] [address] [id number] [address] [place] [address], [place] [address] Dec, [facility] [address] [id number] [address] [place] [address], [place] [address] Oct, [facility] [address] [id number] [address] [place] [address], [place] [address] Oct, [facility] [address] [id number] [address] [place] [address], [place] [address] Sep, [facility] [address] [id number] [address] [place] [address], [place] [address] Sep, [facility] [address] [id number] [address] [place] [address], [place] [address] Sep, [facility] [address] [id number] [address] [place] [address], [place] [address] Sep, [facility] [address] [id number] [address] [place] [address], [place] [address] Aug, [facility] [address] [id number] [address] [place] [address], [place] [address] Aug, [facility] [address] [id number] [address] [place] [address], [place] [address] July, [facility] [address] [id number] [address] [place] [address], [place] [address] July, [facility] [address] [id number] [address] [place] [address], [place] [address] Jun, [facility] [address] [id number] [address] [place] [address], [place] [address] Jun, [facility] [address] [id number] [address] [place] [address], [place] [address] May, [facility] [address] [id number] [address] [place] [address], [place] [address] May, [facility] [address] [id number] [address] [place] [address], [place] [address] Apr, [facility] [address] [id number] [address] [place] [address], [place] [address] Apr, [facility] [address] [id number] [address] [place] [address], [place] [address] Mar, [facility] [address] [id number] [address] [place] [address], [place] [address] Mar, [facility] [address] [id number] [address] [place] [address], [place] [address] Jan, [facility] [address] [id number] [address] [place] [address], [place] [address] Jan, [facility] [address] [id number] [address] [place] [address], [place] [address] Jan, [facility] [address] [id number] [address] [place] [address], [place] [address] Jan, [facility] [address] [id number] [address] [place] [address], [place] [address] Jan, [facility] [address] [id number] [address] [place] [id number] Dec, [facility] [address] [id number] [address] [place] [address], [place] [address] Dec, [facility] [address] [id number] [address] [place] [id number] Dec, [facility] [address] [id number] [address] [place] [address], [place] [address] Nov, [facility] [address] [id number] [address] [place] [id number] Nov, [facility] [address] [id number] [address] [place] [address], [place] [address] Sep, [facility] [address] [id number] [address] [place] [address], [place] [address] Sep, [facility] [address] [id number] [address] [place] [id number] Aug, [facility] [address] [id number] [address] [place] [address], [place] [address] Aug, [facility] [address] [id number] [place] [id number] July, [facility] [address] [id number] [place] [id number] Jun, [facility] [address] [id number] [place] [id number] Apr, [facility] [address] [id number] [place] [id number] Mar, [facility] [address] [id number] [address] [place] [address], [place] [address] Mar, [facility] [address] [id number] [place] [id number] Mar, [facility] [address] [id number] [address] [place] [address], [place] [address] Mar, [facility] [address] [id number] [place] [id number] Feb, [facility] [address] [id number] [address] [place] [id number] Feb, [facility] [address] [id number] [place] [id number] Feb, [facility] [address] [facility] [id number] [address] [place] [id number] Feb, [facility] [address] [id number] [place] [id number] Oct, [facility] [address] [id number] [place] [id number] Oct, [facility] [address] [id number] [place] [id number] July, [facility] [address] [id number] [place] [id number] July, [facility] [address] [id number] [place] [id number] Jun, [facility] [address] [id number] [place] [id number] Jun, [facility] [address] [id number] [place] [id number] Jun, [facility] [address] [id number] [place], [place] [id number] Mar, [facility] [address] [id number] [place], [place] [id number] Mar, [facility] [address] [facility] [id number] [address] [place] [id number] Feb, [facility] [address] [facility] [id number] [address] [place] [phone] Feb, [facility] [address] [facility] [id number] [address] [place] [id number] Jan, [facility] [address] [facility] [id number] [address] [place] [id number] Jan, [facility] [address] [facility] [id number] [address] [place] [phone] Jan, [facility] [address] [facility] [id number] [address] [place] [id number] Jan, [facility] [address] [facility] [id number] [address] [place] [phone] Jan, [facility] [address] [facility] [id number] [address] [place] [id number] Aug, [facility] [address] [facility] [id number] [address] [place] [id number] 17 Apr, 2010 IMMUNIZATIONS No Known Immunizations SOCIAL HISTORY Never Assessed REASON FOR VISIT Lab (walk-in) [facility] PLAN OF CARE VITAL SIGNS MEDICATIONS Unknown Medications RESULTS No Results PROCEDURES Procedure Date Ordered Result Body Site ROUTINE VENIPUNCTURE 2017-07-10 N/A ASSAY OF BLOOD/URIC ACID July 10, 2017 PROTHROMBIN TIME July 10, 2017 BASIC METABOLIC PANEL July 10, 2017 INSTRUCTIONS MEDICATIONS ADMINISTERED No Known Medications [...]
--- OUTSIDE RECORDS SUMMARY | 2019-11-08 13:11 | XMS REPORT ---
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 Name Role Phone DIANADAVIDAVANI Unavailable PROBLEMS Type Condition ICD9-CM Code OOC42-JQ Code Onset Dates Condition S tatus SNOMED Code Problem Factor V Leiden D68.51 Active 3070 08255 Problem Post-phlebitic syndrome I87.009 Active 39654127 Problem Anticoagulant long-term use Z79.01 Ac tive 237078708 Problem Essential hypertension I10 Active 10327374 Problem Other chronic pain G89.29 Active 8 8348552 Problem Venous stasis ulcers, left I83.029 Act ozzy 414932841 Problem 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 56038618 Problem Congenital single kidney Q60.0 Activ e 83446210 Problem Venous anomaly Q27.9 Active 53173 4003 Problem Pure hypercholesterolemia E78.00 Acti ve 688169308 Problem Chronic prescription opiate use Z79.899 Active 145035735 ALLERGIES No Information ENCOUNTERS Encounter Location Date Diagnosis [facility] [address] [facility] [id number] [address] [place] [phone] Sep, Other chronic pain G89.29 [facility] [address] [facility] [id number] [address] [place] [id number] 18 Aug, 2017 Other chronic pain G89.29 [facility] [address] [facility] [id number] [address] [place] [id number] 11 Aug, 2017 Venous stasis ulcers, left I 83.029 [facility] [address] [facility] [id number] [address] [place] [phone] July, Other chronic pain G89.29 [facility] [address] [facility] [id number] [address] [place] [phone] July, Venous stasis ulcers, left I 83.029 and Snoring R06.83 [place] [address] [facility] [id number] [address] [place] [phone] Jun, Idiopathic chronic gout of ultiple sites without tophus M1A.09X0 [place] [address] [facility] [id number] [address] [place] [phone] Jun, Acute renal insufficiency N2 8.9 [place] [address] [facility] [id number] [address] [place] [phone] Jun, Other chronic pain G89.29 [place] [address] [facility] [id number] [address] [place] [phone] Jun, Acute renal insufficiency N2 8.[id number] [place] [id number] Jun, Idiopathic chronic gout of multiple site s without tophus M1A.09X0 ; Essential hypertension I10 and Anticoagulant long-term use Z79.01 [place] [address] [facility] [id number] [address] [place] [phone] Jun, Anticoagulant long-term use Z79.01 and Essential hypertension I10 [place] [address] [facility] [id number] [address] [place] [phone] May, Idiopathic chronic gout of ultiple sites without tophus M1A.09X0 [place] [address] [facility] [id number] [address] [place] [phone] May, [place] [address] [facility] [id number] [address] [place] [phone] May, Essential hypertension I10 ; Pure hypercholesterolemia E78.00 ; Anticoagulant long-term use Z79.01 and Idiopathic chronic gout of multiple sites without tophus M1A.09X0 [place] [address] [facility] [id number] [address] [place] [phone] May, Other chronic pain G89.29 [place] [address] [facility] [id number] [address] [place] [phone] May, Anticoagulant long-term use Z79.01 [place] [address] [facility] [id number] [address] [place] [phone] May, Chronic prescription opiate use Z79.899 ; Other chronic pain G89.29 ; Essential hypertension I10 ; Factor V Leiden D68.51 ; Anticoagulant long-term use Z79.01 ; Pure hypercholesterolemia E78.00 ; Venous stasis ulcers, left I83.029 ; Idiopathic chronic gout of multiple sites without tophus M1A.09X0 and Cellulitis of left lower extremity L03.116 [place] [address] [facility] [id number] [address] [place] [phone] Apr, Other chronic pain G89.29 [place] [address] [place] [id number] [address] [place] [phone] Mar, Other chronic pain G89.29 [place] [address] [place] [id number] [address] [place] [phone] Mar, Factor V Leiden D68.51 ; Pur e hypercholesterolemia E78.00 and Other chronic pain G89.29 [place] [address] [place] [id number] [address] [place] [phone] Feb, Other chronic pain G89.29 [place] [address] [place] [id number] [address] [place] [phone] Jan, Idiopathic chronic gout of m ultiple sites without tophus M1A.09X0 [place] [address] [facility] [id number] [address] [place] [phone] Jan, Other chronic pain G89.29 [place] [address] [facility] [id number] [address] [place] [phone] Dec, Anticoagulant long-term use Z79.01 ; Factor V Leiden D68.51 and Other chronic pain G89.29 [place] [address] [place] [id number] [address] [place] [phone] Dec, Other chronic pain G89.29 [facility] [address] [facility] [id number] [address] [place] [phone] Nov, Other chronic pain G89.29 [facility] [address] [facility] [id number] [address] [place] [id number] 16 Oct, 2016 Other chronic pain G89.29 [place] [address] [facility] [id number] [address] [place] [phone] Sep, Anticoagulant long-term use Z79.01 [facility] [address] [facility] [id number] [address] [place] [phone] Sep, Chronic prescription opiate use Z79.899 ; Anticoagulant long-term use Z79.01 ; Essential hypertension I10 ; Pure hypercholesterolemia E78.00 ; Factor V Leiden D68.51 ; Venous stasis ulcers, left I83.029 ; Other chronic pain G89.29 and Idiopathic chronic gout of multiple sites without tophus M1A.09X0 [place] [address] [facility] [id number] [address] [place] [phone] Aug, Anticoagulant long-term use Z79.01 [place] [address] [facility] [id number] [address] [place] [phone] Aug, Other chronic pain G89.29 [place] [address] [facility] [id number] [address] [place] [phone] Aug, Essential hypertension I10 a nd Factor V Leiden D68.[address] [place] [id number] [place] [id number] 15 Aug, 2016 Acute right ankle pain M25.571 and Tendo nitis of ankle M77.50 [place] [address] [facility] [id number] [address] [place] [phone] Aug, [place] [address] [facility] [id number] [address] [place] [phone] July, Other chronic pain G89.29 [place] [address] [facility] [id number] [address] [place] [address] Jun, Other chronic pain G89.29 [facility] [address] [id number] [address] [place] [phone] Jun, Other chronic pain G89.29 [facility] [address] [facility] [id number] [address] [place] [phone] Jun, Anticoagulant long-term use Z79.01 [facility] [address] [facility] [id number] [address] [place] [phone] May, Other chronic pain G89.29 [facility] [address] [facility] [id number] [address] [place] [phone] May, Anticoagulant long-term use Z79.01 [facility] [address] [facility] [id number] [address] [place] [address] May, Other chronic pain G89.29 [facility] [address] [facility] [id number] [address] [place] [phone] Apr, Anticoagulant long-term use Z79.01 [facility] [address] [facility] [id number] [address] [place] [phone] Apr, Other chronic pain G89.29 [facility] [address] [facility] [id number] [address] [place] [address] Apr, Anticoagulant long-term use Z79.01 and Pure hypercholesterolemia E78.00 [facility] [address] [facility] [id number] [address] [place] [phone] Mar, [facility] [address] [facility] [id number] [address] [place] [address] Mar, Anticoagulant long-term use Z79.01 [facility] [address] [facility] [id number] [address] [place] [address] Mar, Other chronic pain G89.29 [facility] [address] [facility] [id number] [address] [place] [address] Feb, Essential hypertension I10 ; Chronic prescription opiate use Z79.899 ; Other chronic pain G89.29 ; Screening Z13.9 ; Factor V Leiden D68.51 ; Anticoagulant long-term use Z79.01 ; Venous stasis dermatitis of left lower extremity I83.12 and Pure hypercholesterolemia E78.00 [facility] [address] [facility] [id number] [address] [place] [phone] 14 Jan, 2016 Anticoagulant long-term use Z79.01 [facility] [address] [id number] [address] [place] [phone] Jan, Anticoagulant long-term use Z79.01 [facility] [address] [facility] [id number] [address] [place] [phone] Jan, [facility] [address] [facility] [id number] [address] [place] [phone] Jan, [facility] [address] [facility] [id number] [address] [place] [phone] Dec, [facility] [address] [facility] [id number] [address] [place] [phone] Nov, [facility] [address] [facility] [id number] [address] [place] [address] Oct, Anticoagulant long-term use Z79.01 [facility] [address] [facility] [id number] [address] [place] [phone] Oct, [facility] [address] [facility] [id number] [address] [place] [phone] Oct, Anticoagulant long-term use Z79.01 [facility] [address] [id number] [address] [place] [phone] Sep, [facility] [address] [facility] [id number] [address] [place] [phone] Aug, [facility] [address] [facility] [id number] [address] [place] [phone] Aug, Chronic prescription opiate use Z79.899 ; Other chronic pain G89.29 ; Essential hypertension I10 and Pure hypercholesterolemia E78.0 [facility] [address] [facility] [id number] [address] [place] [phone] July, Hyperlipidemia, group D E78. 3 and Anticoagulant long-term use Z79.01 [facility] [address] [facility] [id number] [address] [place] [phone] July, Hyperlipidemia, group D E78. 3 ; Essential hypertension I10 and Factor V Leiden D68.51 [facility] [address] [facility] [id number] [address] [place] [phone] July, Essential hypertension I10 [place] [address] [facility] [id number] [address] [place] [phone] Jun, Hyperlipidemia, group D E78. 3 [place] [address] [facility] [id number] [address] [place] [phone] Jun, Factor V Leiden D68.51 [facility] [address] [facility] [id number] [address] [place] [phone] May, Factor V Leiden D68.51 ; Hyp erlipidemia, group D E78.3 ; Essential hypertension I10 ; Other chronic pain G89.29 and Anticoagulant long-term use Z79.01 [place] [address] [facility] [id number] [address] [place] [phone] May, Anticoagulant long-term use Z79.01 [facility] [address] [facility] [id number] [address] [place] [phone] May, Anticoagulant long-term use Z79.01 [facility] [address] [facility] [id number] [address] [place] [phone] May, [place] [address] [facility] [id number] [address] [place] [phone] Apr, [facility] [address] [facility] [id number] [address] [place] [phone] Mar, [facility] [address] [facility] [id number] [address] [place] [phone] Mar, [facility] [address] [facility] [id number] [address] [place] [phone] Feb, Anticoagulant long-term use Z79.01 [facility] [address] [facility] [id number] [address] [place] [address] 16 Feb, 2015 Chronic prescription opiate use Z79.899 ; Other chronic pain G89.29 ; Hyperlipidemia, group D E78.3 ; Factor V Leiden D68.51 and Anticoagulant long- term use Z79.01 [facility] [address] [facility] [id number] [address] [place] [phone] Feb, [facility] [address] [place] [id number] [place] [address] Jan, [facility] [address] [address] Dec, Hyperlipidemia, unspecified E78.5 [facility] [address] [facility] [id number] [address] [place] [phone] Dec, Cellulitis of left lower ext remity L03.116 ; Venous stasis ulcers, left I83.029 and Factor V Leiden D68.51 [facility] [address] [place] [id number] [address] [place] [address] Dec, Hyperlipidemia 272.4 and Fac tor V Leiden 289.81 [facility] [address] [facility] [id number] [address] [place] [phone] Dec, [facility] [address] [facility] [id number] [address] [place] [phone] Nov, Factor V Leiden 289.81 [facility] [address] [place] [id number] [address] [place] [phone] Nov, [facility] [address] [place] [id number] [address] [place] [phone] Nov, [facility] [address] [place] [id number] [address] [place] [phone] Nov, [facility] [address] [facility] [id number] [address] [place] [phone] Oct, [facility] [address] [facility] [id number] [address] [place] [phone] Oct, Hyperlipidemia 272.4 ; Chron ic pain disorder 338.4 ; Venous stasis ulcer of left lower extremity 454.0 and Factor V Leiden 289.81 [facility] [address] [place] [id number] [place] [address] Sep, [facility] [address] [place] [id number] [place] [address] Sep, [facility] [address] [place] [id number] [place] [address] Sep, Hyperlipidemia 272.4 and Fac tor V Leiden 289.81 [facility] [address] [place] [id number] [address] [place] [phone] Aug, [facility] [address] [place] [id number] [place] [address] Aug, Factor V Leiden 289.81 [facility] [address] [place] [id number] [address] [place] [phone] July, [facility] [address] [place] [id number] [address] [place] [phone] July, Essential hypertension, fito gn 401.1 ; Factor V Leiden 289.81 ; Chronic pain disorder 338.4 ; Hyperlipidemia 272.4 and Venous stasis ulcer of left lower extremity 454.0 [facility] [address] [address] Jun, [facility] [address] [place] [id number] [place] [address] Jun, [facility] [address] [address] May, [facility] [address] [id number] [address] [place] [address], [place] [address] May, [facility] [address] [id number] [address] [place] [address], [place] [address] 20 Apr, 2014 [facility] [address] [id number] [address] [place] [address], [place] [address] Apr, [facility] [address] [id number] [address] [place] [address], [place] [address] Apr, [facility] [address] [id number] [address] [place] [address], [place] [address] Apr, [facility] [address] [id number] [address] [place] [address], [place] [address] Apr, [facility] [address] [id number] [address] [place] [address], [place] [address] Apr, [facility] [address] [id number] [address] [place] [address], [place] [address] Mar, [facility] [address] [id number] [address] [place] [address], [place] [address] Mar, [facility] [address] [id number] [address] [place] [address], [place] [address] Mar, [facility] [address] [id number] [address] [place] [address], [place] [address] Mar, [facility] [address] [id number] [address] [place] [address], [place] [address] Feb, [facility] [address] [id number] [address] [place] [address], [place] [address] Feb, [facility] [address] [id number] [address] [place] [address], [place] [address] 16 Feb, 2014 [facility] [address] [id number] [address] [place] [address], [place] [address] 16 Feb, 2014 [facility] [address] [id number] [address] [place] [address], [place] [address] Jan, [facility] [address] [id number] [address] [place] [address], [place] [address] Jan, [facility] [address] [id number] [address] [place] [address], [place] [address] Jan, [facility] [address] [id number] [address] [place] [address], [place] [address] Jan, [facility] [address] [id number] [address] [place] [address], [place] [address] Jan, [facility] [address] [id number] [address] [place] [address], [place] [address] Jan, [facility] [address] [id number] [address] [place] [address], [place] [address] Dec, [facility] [address] [id number] [address] [place] [address], [place] [address] Dec, [facility] [address] [id number] [address] [place] [address], [place] [address] Oct, [facility] [address] [id number] [address] [place] [address], [place] [address] Oct, [facility] [address] [id number] [address] [place] [address], [place] [address] Sep, [facility] [address] [id number] [address] [place] [address], [place] [address] Sep, [facility] [address] [id number] [address] [place] [address], [place] [address] Sep, [facility] [address] [id number] [address] [place] [address], [place] [address] Sep, [facility] [address] [id number] [address] [place] [address], [place] [address] Aug, [facility] [address] [id number] [address] [place] [address], [place] [address] Aug, [facility] [address] [id number] [address] [place] [address], [place] [address] July, [facility] [address] [id number] [address] [place] [address], [place] [address] July, [facility] [address] [id number] [address] [place] [address], [place] [address] Jun, [facility] [address] [id number] [address] [place] [address], [place] [address] Jun, [facility] [address] [id number] [address] [place] [address], [place] [address] May, [facility] [address] [id number] [address] [place] [address], [place] [address] May, [facility] [address] [id number] [address] [place] [address], [place] [address] Apr, [facility] [address] [id number] [address] [place] [address], [place] [address] Apr, [facility] [address] [id number] [address] [place] [address], [place] [address] Mar, [facility] [address] [id number] [address] [place] [address], [place] [address] Mar, [facility] [address] [id number] [address] [place] [address], [place] [address] Jan, [facility] [address] [id number] [address] [place] [address], [place] [address] Jan, [facility] [address] [id number] [address] [place] [address], [place] [address] Jan, [facility] [address] [id number] [address] [place] [address], [place] [address] Jan, [facility] [address] [id number] [address] [place] [address], [place] [address] Jan, [facility] [address] [id number] [address] [place] [id number] Dec, [facility] [address] [id number] [address] [place] [address], [place] [address] Dec, [facility] [address] [id number] [address] [place] [address] Dec, [facility] [address] [id number] [address] [place] [address], [place] [address] Nov, [facility] [address] [id number] [address] [place] [id number] Nov, [facility] [address] [id number] [address] [place] [address], [place] [address] Sep, [facility] [address] [id number] [address] [place] [address], [place] [address] Sep, [facility] [address] [id number] [address] [place] [id number] Aug, [facility] [address] [id number] [address] [place] [address], [place] [address] Aug, [facility] [address] [id number] [place] [id number] July, [facility] [address] [id number] [place] [id number] Jun, [facility] [address] [id number] [place] [id number] Apr, [facility] [address] [id number] [place] [id number] Mar, [facility] [address] [id number] [address] [place] [address], [place] [address] Mar, [facility] [address] [id number] [place] [id number] Mar, [facility] [address] [id number] [address] [place] [address], [place] [phone] Mar, [facility] [address] [id number] [place] [id number] Feb, [facility] [address] [id number] [place] [id number] Feb, [facility] [place] [address] [id number] [place] [id number] Feb, [facility] [address] [facility] [id number] [address] [place] [id number] Feb, [facility] [address] [id number] [place] [id number] Oct, [facility] [address] [id number] [place] [id number] Oct, [facility] [place] [address] [id number] [place] [id number] July, [facility] [address] [id number] [place] [id number] July, [facility] [address] [id number] [place] [id number] Jun, [facility] [place] [address] [id number] [place] [id number] Jun, [facility] [place] [address] [id number] [place] [id number] Jun, [facility] [place] [address] [id number] [place] [id number] Mar, [facility] [place] [address] [id number] [place] [id number] Mar, [facility] [address] [facility] [id number] [address] [place] [phone] Feb, [facility] [address] [facility] [id number] [address] [place] [phone] Feb, [facility] [address] [facility] [id number] [address] [place] [id number] Jan, [facility] [address] [facility] [id number] [address] [place] [phone] Jan, [facility] [address] [facility] [id number] [address] [place] [phone] Jan, [facility] [address] [facility] [id number] [address] [place] [id number] Jan, [facility] [address] [facility] [id number] [address] [place] [phone] Jan, [facility] [address] [facility] [id number] [address] [place] [id number] Aug, [facility] [address] [facility] [id number] [address] [place] [id number] 17 Apr, 2010 IMMUNIZATIONS No Known Immunizations SOCIAL HISTORY Never Assessed REASON FOR VISIT Wound Care Call PLAN OF CARE VITAL SIGNS MEDICATIONS Unknown [...]
--- OUTSIDE RECORDS SUMMARY | 2019-11-08 13:12 | XMS REPORT ---
Author Author Zana ORTIZ [facility] Address [address] [place] [address] Care Team Providers Care Bioanalyst Name Role Phone DIANADAVIDAVANI Unavailable PROBLEMS Type Condition ICD9-CM Code OBG19-SY Code Onset Dates Condition S tatus SNOMED Code Problem Factor V Leiden D68.51 Active 3070 78038 Problem Post-phlebitic syndrome I87.009 Active 36107055 Problem Anticoagulant long-term use Z79.01 Ac tive 958877779 Problem Essential hypertension I10 Active 40833005 Problem Other chronic pain G89.29 Active 8 7647863 Problem Venous stasis ulcers, left I83.029 Act ozzy 317737305 Problem 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 31932909 Problem Congenital single kidney Q60.0 Activ e 03712700 Problem Venous anomaly Q27.9 Active 23008 4003 Problem Pure hypercholesterolemia E78.00 Acti ve 480877155 Problem Chronic prescription opiate use Z79.899 Active 002426480 ALLERGIES No Information ENCOUNTERS Encounter Location Date Diagnosis [facility] [address] [facility] [id number] [address] [place] [address] Sep, Other chronic pain G89.29 [facility] [address] [facility] [id number] [address] [place] [address] 18 Aug, 2017 Other chronic pain G89.29 [facility] [address] [facility] [id number] [address] [place] [address] Aug, Venous stasis ulcers, left I 83.029 [facility] [address] [facility] [id number] [address] [place] [address] July, Other chronic pain G89.29 [facility] [address] [facility] [id number] [address] [place] [address] July, Venous stasis ulcers, left I 83.029 and Snoring R06.83 [place] [address] [facility] [id number] [address] [place] [address] Jun, Idiopathic chronic gout of ultiple sites without tophus M1A.09X0 [facility] [address] [facility] [id number] [address] [place] [address] Jun, Acute renal insufficiency N2 8.9 [place] [address] [facility] [id number] [address] [place] [address] Jun, Other chronic pain G89.29 [place] [address] [facility] [id number] [address] [place] [address] Jun, Acute renal insufficiency N2 8.[id number] [place] [id number] Jun, Idiopathic chronic gout of multiple site s without tophus M1A.09X0 ; Essential hypertension I10 and Anticoagulant long-term use Z79.01 [place] [address] [facility] [id number] [address] [place] [address] Jun, Anticoagulant long-term use Z79.01 and Essential hypertension I10 [place] [address] [facility] [id number] [address] [place] [address] May, Idiopathic chronic gout of ultiple sites without tophus M1A.09X0 [place] [address] [facility] [id number] [address] [place] [address] May, [place] [address] [facility] [id number] [address] [place] [address] May, Essential hypertension I10 ; Pure hypercholesterolemia E78.00 ; Anticoagulant long-term use Z79.01 and Idiopathic chronic gout of multiple sites without tophus M1A.09X0 [place] [address] [facility] [id number] [address] [place] [address] May, Other chronic pain G89.29 [place] [address] [facility] [id number] [address] [place] [address] May, Anticoagulant long-term use Z79.01 [place] [address] [facility] [id number] [address] [place] [address] May, Chronic prescription opiate use Z79.899 ; Other chronic pain G89.29 ; Essential hypertension I10 ; Factor V Leiden D68.51 ; Anticoagulant long-term use Z79.01 ; Pure hypercholesterolemia E78.00 ; Venous stasis ulcers, left I83.029 ; Idiopathic chronic gout of multiple sites without tophus M1A.09X0 and Cellulitis of left lower extremity L03.116 [place] [address] [facility] [id number] [address] [place] [address] Apr, Other chronic pain G89.29 [place] [address] [place] [id number] [address] [place] [address] Mar, Other chronic pain G89.29 [place] [address] [place] [id number] [address] [place] [address] Mar, Factor V Leiden D68.51 ; Pur e hypercholesterolemia E78.00 and Other chronic pain G89.29 [place] [address] [place] [id number] [address] [place] [address] Feb, Other chronic pain G89.29 [place] [address] [place] [id number] [address] [place] [address] Jan, Idiopathic chronic gout of m ultiple sites without tophus M1A.09X0 [place] [address] [facility] [id number] [address] [place] [address] Jan, Other chronic pain G89.29 [place] [address] [facility] [id number] [address] [place] [address] Dec, Anticoagulant long-term use Z79.01 ; Factor V Leiden D68.51 and Other chronic pain G89.29 [place] [address] [place] [id number] [address] [place] [address] Dec, Other chronic pain G89.29 [facility] [address] [facility] [id number] [address] [place] [address] Nov, Other chronic pain G89.29 [facility] [address] [facility] [id number] [address] [place] [address] 16 Oct, 2016 Other chronic pain G89.29 [place] [address] [facility] [id number] [address] [place] [address] Sep, Anticoagulant long-term use Z79.01 [facility] [address] [facility] [id number] [address] [place] [address] Sep, Chronic prescription opiate use Z79.899 ; Anticoagulant long-term use Z79.01 ; Essential hypertension I10 ; Pure hypercholesterolemia E78.00 ; Factor V Leiden D68.51 ; Venous stasis ulcers, left I83.029 ; Other chronic pain G89.29 and Idiopathic chronic gout of multiple sites without tophus M1A.09X0 [place] [address] [facility] [id number] [address] [place] [address] Aug, Anticoagulant long-term use Z79.01 [place] [address] [facility] [id number] [address] [place] [address] Aug, Other chronic pain G89.29 [place] [address] [facility] [id number] [address] [place] [address] Aug, Essential hypertension I10 a nd Factor V Leiden D68.[address] [place] [id number] [place] [id number] 15 Aug, 2016 Acute right ankle pain M25.571 and Tendo nitis of ankle M77.50 [place] [address] [facility] [id number] [address] [place] [address] Aug, [place] [address] [facility] [id number] [address] [place] [address] July, Other chronic pain G89.29 [place] [address] [facility] [id number] [address] [place] [address] Jun, Other chronic pain G89.29 [facility] [address] [id number] [address] [place] [address] Jun, Other chronic pain G89.29 [facility] [address] [facility] [id number] [address] [place] [address] Jun, Anticoagulant long-term use Z79.01 [facility] [address] [facility] [id number] [address] [place] [address] May, Other chronic pain G89.29 [facility] [address] [facility] [id number] [address] [place] [address] May, Anticoagulant long-term use Z79.01 [facility] [address] [facility] [id number] [address] [place] [address] May, Other chronic pain G89.29 [facility] [address] [facility] [id number] [address] [place] [address] Apr, Anticoagulant long-term use Z79.01 [facility] [address] [facility] [id number] [address] [place] [address] Apr, Other chronic pain G89.29 [facility] [address] [facility] [id number] [address] [place] [address] Apr, Anticoagulant long-term use Z79.01 and Pure hypercholesterolemia E78.00 [facility] [address] [facility] [id number] [address] [place] [address] Mar, [facility] [address] [facility] [id number] [address] [place] [address] Mar, Anticoagulant long-term use Z79.01 [facility] [address] [facility] [id number] [address] [place] [address] Mar, Other chronic pain G89.29 [facility] [address] [facility] [id number] [address] [place] [address] Feb, Essential hypertension I10 ; Chronic prescription opiate use Z79.899 ; Other chronic pain G89.29 ; Screening Z13.9 ; Factor V Leiden D68.51 ; Anticoagulant long-term use Z79.01 ; Venous stasis dermatitis of left lower extremity I83.12 and Pure hypercholesterolemia E78.00 [facility] [address] [facility] [id number] [address] [place] [address] 14 Jan, 2016 Anticoagulant long-term use Z79.01 [facility] [address] [id number] [address] [place] [address] Jan, Anticoagulant long-term use Z79.01 [facility] [address] [facility] [id number] [address] [place] [address] Jan, [facility] [address] [facility] [id number] [address] [place] [address] Jan, [facility] [address] [facility] [id number] [address] [place] [address] Dec, [facility] [address] [facility] [id number] [address] [place] [address] Nov, [facility] [address] [facility] [id number] [address] [place] [address] Oct, Anticoagulant long-term use Z79.01 [facility] [address] [facility] [id number] [address] [place] [address] Oct, [facility] [address] [facility] [id number] [address] [place] [address] Oct, Anticoagulant long-term use Z79.01 [facility] [address] [id number] [address] [place] [address] Sep, [facility] [address] [facility] [id number] [address] [place] [address] Aug, [facility] [address] [facility] [id number] [address] [place] [address] Aug, Chronic prescription opiate use Z79.899 ; Other chronic pain G89.29 ; Essential hypertension I10 and Pure hypercholesterolemia E78.0 [facility] [address] [facility] [id number] [address] [place] [address] July, Hyperlipidemia, group D E78. 3 and Anticoagulant long-term use Z79.01 [facility] [address] [facility] [id number] [address] [place] [address] July, Hyperlipidemia, group D E78. 3 ; Essential hypertension I10 and Factor V Leiden D68.51 [facility] [address] [facility] [id number] [address] [place] [address] July, Essential hypertension I10 [place] [address] [facility] [id number] [address] [place] [address] Jun, Hyperlipidemia, group D E78. 3 [place] [address] [facility] [id number] [address] [place] [address] Jun, Factor V Leiden D68.51 [facility] [address] [facility] [id number] [address] [place] [address] May, Factor V Leiden D68.51 ; Hyp erlipidemia, group D E78.3 ; Essential hypertension I10 ; Other chronic pain G89.29 and Anticoagulant long-term use Z79.01 [place] [address] [facility] [id number] [address] [place] [address] May, Anticoagulant long-term use Z79.01 [facility] [address] [facility] [id number] [address] [place] [address] May, Anticoagulant long-term use Z79.01 [facility] [address] [facility] [id number] [address] [place] [address] May, [place] [address] [facility] [id number] [address] [place] [address] Apr, [facility] [address] [facility] [id number] [address] [place] [address] Mar, [facility] [address] [facility] [id number] [address] [place] [address] Mar, [facility] [address] [facility] [id number] [address] [place] [address] Feb, Anticoagulant long-term use Z79.01 [facility] [address] [facility] [id number] [address] [place] [address] 16 Feb, 2015 Chronic prescription opiate use Z79.899 ; Other chronic pain G89.29 ; Hyperlipidemia, group D E78.3 ; Factor V Leiden D68.51 and Anticoagulant long- term use Z79.01 [facility] [address] [facility] [id number] [address] [place] [address] Feb, [facility] [address] [place] [id number] [place] [address] Jan, [facility] [address] [address] Dec, Hyperlipidemia, unspecified E78.5 [facility] [address] [facility] [id number] [address] [place] [address] Dec, Cellulitis of left lower ext remity L03.116 ; Venous stasis ulcers, left I83.029 and Factor V Leiden D68.51 [facility] [address] [place] [id number] [address] [place] [address] Dec, Hyperlipidemia 272.4 and Fac tor V Leiden 289.81 [facility] [address] [facility] [id number] [address] [place] [address] Dec, [facility] [address] [facility] [id number] [address] [place] [address] Nov, Factor V Leiden 289.81 [facility] [address] [place] [id number] [address] [place] [address] Nov, [facility] [address] [place] [id number] [address] [place] [address] Nov, [facility] [address] [place] [id number] [address] [place] [address] Nov, [facility] [address] [facility] [id number] [address] [place] [address] Oct, [facility] [address] [facility] [id number] [address] [place] [address] Oct, Hyperlipidemia 272.4 ; Chron ic pain disorder 338.4 ; Venous stasis ulcer of left lower extremity 454.0 and Factor V Leiden 289.81 [facility] [address] [place] [id number] [place] [address] Sep, [facility] [address] [place] [id number] [place] [address] Sep, [facility] [address] [place] [id number] [place] [address] Sep, Hyperlipidemia 272.4 and Fac tor V Leiden 289.81 [facility] [address] [place] [id number] [address] [place] [address] Aug, [facility] [address] [place] [id number] [place] [address] Aug, Factor V Leiden 289.81 [facility] [address] [place] [id number] [address] [place] [address] July, [facility] [address] [place] [id number] [address] [place] [address] July, Essential hypertension, fito gn 401.1 ; Factor V Leiden 289.81 ; Chronic pain disorder 338.4 ; Hyperlipidemia 272.4 and Venous stasis ulcer of left lower extremity 454.0 [facility] [address] [address] Jun, [facility] [address] [place] [id number] [place] [address] Jun, [facility] [address] [address] May, [facility] [address] [id number] [address] [place] [address], [place] [address] May, [facility] [address] [id number] [address] [place] [address], [place] [address] 20 Apr, 2014 [facility] [address] [id number] [address] [place] [address], [place] [address] Apr, [facility] [address] [id number] [address] [place] [address], [place] [address] Apr, [facility] [address] [id number] [address] [place] [address], [place] [address] Apr, [facility] [address] [id number] [address] [place] [address], [place] [address] Apr, [facility] [address] [id number] [address] [place] [address], [place] [address] Apr, [facility] [address] [id number] [address] [place] [address], [place] [address] Mar, [facility] [address] [id number] [address] [place] [address], [place] [address] Mar, [facility] [address] [id number] [address] [place] [address], [place] [address] Mar, [facility] [address] [id number] [address] [place] [address], [place] [address] Mar, [facility] [address] [id number] [address] [place] [address], [place] [address] Feb, [facility] [address] [id number] [address] [place] [address], [place] [address] Feb, [facility] [address] [id number] [address] [place] [address], [place] [id number] 16 Feb, 2014 [facility] [address] [id number] [address] [place] [address], [place] [address] 16 Feb, 2014 [facility] [address] [id number] [address] [place] [address], [place] [address] Jan, [facility] [address] [id number] [address] [place] [address], [place] [address] Jan, [facility] [address] [id number] [address] [place] [address], [place] [address] Jan, [facility] [address] [id number] [address] [place] [address], [place] [address] Jan, [facility] [address] [id number] [address] [place] [address], [place] [address] Jan, [facility] [address] [id number] [address] [place] [address], [place] [address] Jan, [facility] [address] [id number] [address] [place] [address], [place] [address] Dec, [facility] [address] [id number] [address] [place] [address], [place] [address] Dec, [facility] [address] [id number] [address] [place] [address], [place] [address] Oct, [facility] [address] [id number] [address] [place] [address], [place] [address] Oct, [facility] [address] [id number] [address] [place] [address], [place] [address] Sep, [facility] [address] [id number] [address] [place] [address], [place] [address] Sep, [facility] [address] [id number] [address] [place] [address], [place] [address] Sep, [facility] [address] [id number] [address] [place] [address], [place] [address] Sep, [facility] [address] [id number] [address] [place] [address], [place] [address] Aug, [facility] [address] [id number] [address] [place] [address], [place] [id number] Aug, [facility] [address] [id number] [address] [place] [address], [place] [address] July, [facility] [address] [id number] [address] [place] [address], [place] [address] July, [facility] [address] [id number] [address] [place] [address], [place] [address] Jun, [facility] [address] [id number] [address] [place] [address], [place] [address] Jun, [facility] [address] [id number] [address] [place] [address], [place] [address] May, [facility] [address] [id number] [address] [place] [address], [place] [address] May, [facility] [address] [id number] [address] [place] [address], [place] [address] Apr, [facility] [address] [id number] [address] [place] [address], [place] [address] Apr, [facility] [address] [id number] [address] [place] [address], [place] [address] Mar, [facility] [address] [id number] [address] [place] [address], [place] [address] Mar, [facility] [address] [id number] [address] [place] [address], [place] [address] Jan, [facility] [address] [id number] [address] [place] [address], [place] [address] Jan, [facility] [address] [id number] [address] [place] [address], [place] [id number] Jan, [facility] [address] [id number] [address] [place] [address], [place] [id number] Jan, [facility] [address] [id number] [address] [place] [address], [place] [id number] Jan, [facility] [address] [id number] [address] [place] [id number] Dec, [facility] [address] [id number] [address] [place] [address], [place] [id number] Dec, [facility] [address] [id number] [address] [place] [id number] Dec, [facility] [address] [id number] [address] [place] [address], [place] [id number] Nov, [facility] [address] [id number] [address] [place] [id number] Nov, [facility] [address] [id number] [address] [place] [address], [place] [id number] Sep, [facility] [address] [id number] [address] [place] [address], [place] [id number] Sep, [facility] [address] [id number] [address] [place] [id number] Aug, [facility] [address] [id number] [address] [place] [address], [place] [id number] Aug, [facility] [address] [id number] [place] [id number] July, [facility] [address] [id number] [place] [id number] Jun, [facility] [place] [address] [id number] [place] [id number] Apr, [facility] [address] [id number] [place] [id number] Mar, [facility] [address] [id number] [address] [place] [address], [place] [id number] Mar, [facility] [place] [address] [id number] [place] [id number] Mar, [facility] [address] [id number] [address] [place] [address], [place] [id number] Mar, [facility] [address] [id number] [place] [id number] Feb, [facility] [address] [id number] [address] [place] [id number] Feb, [facility] [place] [address] [id number] [place] [id number] Feb, [facility] [address] [facility] [id number] [address] [place] [id number] Feb, [facility] [place] [address] [id number] [place] [id number] Oct, [facility] [place] [address] [id number] [place] [id number] Oct, [facility] [place] [address] [id number] [place] [id number] July, [facility] [place] [address] [id number] [place] [id number] July, [facility] [place] [address] [id number] [place] [id number] Jun, [facility] [place] [address] [id number] [place] [id number] Jun, [facility] [place] [address] [id number] [place] [id number] Jun, [facility] [place] [address] [id number] [place] [id number] Mar, [facility] [place] [address] [id number] [place] [id number] Mar, [facility] [address] [facility] [id number] [address] [place] [id number] Feb, [facility] [address] [facility] [id number] [address] [place] [id number] Feb, [facility] [address] [facility] [id number] [address] [place] [id number] Jan, [facility] [address] [facility] [id number] [address] [place] [id number] Jan, [facility] [address] [facility] [id number] [address] [place] [id number] Jan, [facility] [address] [facility] [id number] [address] [place] [id number] Jan, [facility] [address] [facility] [id number] [address] [place] [id number] Jan, [facility] [address] [facility] [id number] [address] [place] [id number] 14 Aug, 2010 [facility] [address] [facility] [id number] [address] [place] [id number] 17 Apr, 2010 IMMUNIZATIONS No Known Immunizations SOCIAL HISTORY Never Assessed REASON FOR VISIT Lab (walk-in) PLAN OF CARE VITAL SIGNS MEDICATIONS Unknown Medications RESULTS No Results PROCEDURES Procedure Date Ordered Result Body Site LIPID PANEL June 20, 2017 COMPREHEN METABOLIC PANEL June 20, 2017 ASSAY OF BLOOD/URIC ACID June 20, 2017 COMPLETE CBC W/AUTO DIFF WBC June 20, 2017 VENIPUNCT, ROUTINE* June 20, 2017 PROTHROMBIN TIME June 20, 2017 INSTRUCTIONS MEDICATIONS ADMINISTERED No Known Medications [...]
--- OUTSIDE RECORDS SUMMARY | 2019-11-08 13:12 | XMS REPORT ---
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 Name Role Phone DIANADAVIDAVANI Unavailable PROBLEMS Type Condition ICD9-CM Code [id number] Code Onset Dates Condition S tatus SNOMED Code Problem Factor V Leiden D68.51 Active 3070 89703 Problem Post-phlebitic syndrome I87.009 Active 90056164 Problem Anticoagulant long-term use Z79.01 Ac tive 328235285 Problem Essential hypertension I10 Active 13946711 Problem Other chronic pain G89.29 Active 8 6786761 Problem Venous stasis ulcers, left I83.029 Act ozzy 535609193 Problem 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 28192462 Problem Congenital single kidney Q60.0 Activ e 76505988 Problem Venous anomaly Q27.9 Active 28870 4003 Problem Pure hypercholesterolemia E78.00 Acti ve 958110205 Problem Chronic prescription opiate use Z79.899 Active 001744335 ALLERGIES Substance Reaction Event Type Date Status Tetanus Unknown Drug Allergy May, Active Morphine Sulfate Unknown Drug Allergy May, Active Amoxicillin Unknown Drug Allergy May, Active ENCOUNTERS Encounter Location Date Diagnosis [facility] [address] [facility] [id number] [address] [place] [address] Sep, Other chronic pain G89.29 [facility] [address] [facility] [id number] [address] [place] [address] 18 Aug, 2017 Other chronic pain G89.29 [facility] [address] [facility] [id number] [address] [place] [address] Aug, Venous stasis ulcers, left I 83.029 [facility] [address] [facility] [id number] [address] [place] [address] July, Other chronic pain G89.29 [facility] [address] [facility] [id number] [address] [place] [address] July, Venous stasis ulcers, left I 83.029 and Snoring R06.83 [facility] [address] [facility] [id number] [address] [place] [address] Jun, Idiopathic chronic gout of ultiple sites without tophus M1A.09X0 [facility] [address] [facility] [id number] [address] [place] [address] Jun, Acute renal insufficiency N2 8.9 [place] [address] [facility] [id number] [address] [place] [address] Jun, Other chronic pain G89.29 [place] [address] [facility] [id number] [address] [place] [address] Jun, Acute renal insufficiency N2 8.[id number] [place] [id number] Jun, Idiopathic chronic gout of multiple site s without tophus M1A.09X0 ; Essential hypertension I10 and Anticoagulant long-term use Z79.01 [place] [address] [place] [id number] [address] [place] [address] Jun, Anticoagulant long-term use Z79.01 and Essential hypertension I10 [place] [id number] [place] [address] May, Idiopathic chronic gout of ultiple sites without tophus M1A.09X0 [place] [address] [facility] [id number] [address] [place] [address] May, [place] [address] [facility] [id number] [address] [place] [address] May, Essential hypertension I10 ; Pure hypercholesterolemia E78.00 ; Anticoagulant long-term use Z79.01 and Idiopathic chronic gout of multiple sites without tophus M1A.09X0 [place] [address] [place] [id number] [address] [place] [address] May, Other chronic pain G89.29 [facility] [address] [facility] [id number] [address] [place] [address] May, Anticoagulant long-term use Z79.01 [facility] [address] [facility] [id number] [address] [place] [address] May, Chronic prescription opiate use Z79.899 ; Other chronic pain G89.29 ; Essential hypertension I10 ; Factor V Leiden D68.51 ; Anticoagulant long-term use Z79.01 ; Pure hypercholesterolemia E78.00 ; Venous stasis ulcers, left I83.029 ; Idiopathic chronic gout of multiple sites without tophus M1A.09X0 and Cellulitis of left lower extremity L03.116 [place] [address] [facility] [id number] [address] [place] [address] Apr, Other chronic pain G89.29 [place] [address] [facility] [id number] [address] [place] [address] Mar, Other chronic pain G89.29 [place] [address] [facility] [id number] [address] [place] [address] Mar, Factor V Leiden D68.51 ; Pur e hypercholesterolemia E78.00 and Other chronic pain G89.29 [place] [address] [facility] [id number] [address] [place] [address] Feb, Other chronic pain G89.29 [place] [address] [facility] [id number] [address] [place] [phone] Jan, Idiopathic chronic gout of m ultiple sites without tophus M1A.09X0 [place] [address] [facility] [id number] [address] [place] [address] Jan, Other chronic pain G89.29 [place] [address] [facility] [id number] [address] [place] [address] Dec, Anticoagulant long-term use Z79.01 ; Factor V Leiden D68.51 and Other chronic pain G89.29 [facility] [address] [facility] [id number] [address] [place] [address] Dec, Other chronic pain G89.29 [facility] [address] [facility] [id number] [address] [place] [phone] 13 Nov, 2016 Other chronic pain G89.29 [facility] [address] [facility] [id number] [address] [place] [address] Oct, Other chronic pain G89.29 [facility] [address] [facility] [id number] [address] [place] [address] Sep, Anticoagulant long-term use Z79.01 [place] [address] [facility] [id number] [address] [place] [address] Sep, Chronic prescription opiate use Z79.899 ; Anticoagulant long-term use Z79.01 ; Essential hypertension I10 ; Pure hypercholesterolemia E78.00 ; Factor V Leiden D68.51 ; Venous stasis ulcers, left I83.029 ; Other chronic pain G89.29 and Idiopathic chronic gout of multiple sites without tophus M1A.09X0 [place] [address] [facility] [id number] [address] [place] [address] Aug, Anticoagulant long-term use Z79.01 [place] [address] [facility] [id number] [address] [place] [address] Aug, Other chronic pain G89.29 [place] [address] [facility] [id number] [address] [place] [address] Aug, Essential hypertension I10 a nd Factor V Leiden D68.[address] [place] [id number] [place] [address] [id number] 15 Aug, 2016 Acute right ankle pain M25.571 and Tendo nitis of ankle M77.50 [place] [address] [facility] [id number] [address] [place] [phone] 06 Aug, 2016 [place] [address] [id number] [address] [place] [address] July, Other chronic pain G89.29 [facility] [address] [id number] [address] [place] [address] Jun, Other chronic pain G89.29 [facility] [address] [id number] [address] [place] [address] Jun, Other chronic pain G89.29 [facility] [address] [id number] [address] [place] [address] Jun, Anticoagulant long-term use Z79.01 [facility] [address] [id number] [address] [place] [address] May, Other chronic pain G89.29 [facility] [address] [facility] [id number] [address] [place] [address] May, Anticoagulant long-term use Z79.01 [facility] [address] [facility] [id number] [address] [place] [address] May, Other chronic pain G89.29 [facility] [address] [id number] [address] [place] [address] Apr, Anticoagulant long-term use Z79.01 [facility] [address] [facility] [id number] [address] [place] [address] Apr, Other chronic pain G89.29 [facility] [address] [id number] [address] [place] [address] Apr, Anticoagulant long-term use Z79.01 and Pure hypercholesterolemia E78.00 [facility] [address] [id number] [address] [place] [phone] Mar, [facility] [address] [facility] [id number] [address] [place] [address] Mar, Anticoagulant long-term use Z79.01 [facility] [address] [facility] [id number] [address] [place] [phone] 04 Seferino, 2017 Other chronic pain G89.29 [facility] [address] [id number] [address] [place] [id number] 08 Feb, 2016 Essential hypertension I10 ; Chronic prescription opiate use Z79.899 ; Other chronic pain G89.29 ; Screening Z13.9 ; Factor V Leiden D68.51 ; Anticoagulant long-term use Z79.01 ; Venous stasis dermatitis of left lower extremity I83.12 and Pure hypercholesterolemia E78.00 [facility] [address] [id number] [address] [place] [phone] 14 Jan, 2016 Anticoagulant long-term use Z79.01 [facility] [address] [id number] [address] [place] [address] 10 Jan, 2016 Anticoagulant long-term use Z79.01 [facility] [address] [id number] [address] [place] [phone] 09 Jan, 2016 [facility] [address] [facility] [id number] [address] [place] [address] Jan, [facility] [address] [id number] [address] [place] [address] Dec, [facility] [address] [id number] [address] [place] [address] Nov, [facility] [address] [id number] [address] [place] [address] Oct, Anticoagulant long-term use Z79.01 [facility] [address] [id number] [address] [place] [address] Oct, [facility] [address] [id number] [address] [place] [phone] Oct, Anticoagulant long-term use Z79.01 [facility] [address] [id number] [address] [place] [phone] Sep, [facility] [address] [id number] [address] [place] [address] Aug, [facility] [address] [facility] [id number] [address] [place] [address] Aug, Chronic prescription opiate use Z79.899 ; Other chronic pain G89.29 ; Essential hypertension I10 and Pure hypercholesterolemia E78.0 [facility] [address] [facility] [id number] [address] [place] [address] July, Hyperlipidemia, group D E78. 3 and Anticoagulant long-term use Z79.01 [place] [address] [facility] [id number] [address] [place] [address] July, Hyperlipidemia, group D E78. 3 ; Essential hypertension I10 and Factor V Leiden D68.51 [place] [address] [place] [id number] [address] [place] [address] July, Essential hypertension I10 [place] [address] [address] Jun, Hyperlipidemia, group D E78. 3 [place] [address] [place] [address] Jun, Factor V Leiden D68.51 [place] [address] [place] [address] May, Factor V Leiden D68.51 ; Hyp erlipidemia, group D E78.3 ; Essential hypertension I10 ; Other chronic pain G89.29 and Anticoagulant long-term use Z79.01 [place] [address] [place] [address] May, Anticoagulant long-term use Z79.01 [place] [address] [facility] [id number] [address] [place] [address] May, Anticoagulant long-term use Z79.01 [place] [address] [place] [id number] [address] [place] [address] May, [place] [address] [place] [id number] [address] [place] [phone] Apr, [place] [address] [place] [address] Mar, [facility] [address] [place] [id number] [address] [place] [address] Mar, [facility] [address] [place] [id number] [address] [place] [address] Feb, Anticoagulant long-term use Z79.01 [facility] [address] [address] Feb, Chronic prescription opiate use Z79.899 ; Other chronic pain G89.29 ; Hyperlipidemia, group D E78.3 ; Factor V Leiden D68.51 and Anticoagulant long- term use Z79.01 [place] [address] [place] [id number] [address] [place] [address] Feb, [place] [address] [place] [id number] [address] [place] [address] Jan, [facility] [address] [place] [id number] [address] [place] [address] Dec, Hyperlipidemia, unspecified E78.5 [place] [address] [place] [id number] [address] [place] [address] Dec, Cellulitis of left lower ext remity L03.116 ; Venous stasis ulcers, left I83.029 and Factor V Leiden D68.51 [place] [address] [place] [address] Dec, Hyperlipidemia 272.4 and Fac tor V Leiden 289.81 [place] [address] [place] [address] Dec, [place] [address] [place] [id number] [address] [place] [address] Nov, Factor V Leiden 289.81 [place] [address] [place] [id number] [address] [place] [phone] Nov, [place] [address] [place] [id number] [address] [place] [phone] 08 Nov, 2014 [facility] [address] [facility] [id number] [address] [place] [address] Nov, [facility] [address] [facility] [id number] [address] [place] [address] Oct, [facility] [address] [place] [id number] [place] [address] Oct, Hyperlipidemia 272.4 ; Chron ic pain disorder 338.4 ; Venous stasis ulcer of left lower extremity 454.0 and Factor V Leiden 289.81 [facility] [address] [place] [id number] [place] [address] Sep, [facility] [address] [place] [id number] [address] [place] [address] Sep, [facility] [address] [place] [id number] [place] [address] Sep, Hyperlipidemia 272.4 and Fac tor V Leiden 289.81 [facility] [address] [facility] [id number] [address] [place] [address] Aug, [facility] [address] [place] [id number] [address] [place] [address] Aug, Factor V Leiden 289.81 [facility] [address] [place] [id number] [address] [place] [address] July, [facility] [address] [place] [id number] [place] [phone] July, Essential hypertension, fito gn 401.1 ; Factor V Leiden 289.81 ; Chronic pain disorder 338.4 ; Hyperlipidemia 272.4 and Venous stasis ulcer of left lower extremity 454.0 [facility] [address] [facility] [id number] [address] [place] [address] Jun, [facility] [address] [place] [id number] [address] [place] [address] Jun, [facility] [address] [id number] [address] [place] [address], [place] [address] May, [facility] [address] [id number] [address] [place] [address], [place] [address] May, [facility] [address] [id number] [address] [place] [address], [place] [address] Apr, [facility] [address] [id number] [address] [place] [address], [place] [address] Apr, [facility] [address] [id number] [address] [place] [address], [place] [address] Apr, [facility] [address] [id number] [address] [place] [address], [place] [address] Apr, [facility] [address] [id number] [address] [place] [address], [place] [address] Apr, [facility] [address] [id number] [address] [place] [address], [place] [address] Apr, [facility] [address] [id number] [address] [place] [address], [place] [address] Mar, [facility] [address] [id number] [address] [place] [address], [place] [address] Mar, [facility] [address] [id number] [address] [place] [address], [place] [address] Mar, [facility] [address] [id number] [address] [place] [address], [place] [address] Mar, [facility] [address] [id number] [address] [place] [address], [place] [address] Feb, [facility] [address] [id number] [address] [place] [address], [place] [address] Feb, [facility] [address] [id number] [address] [place] [address], [place] [address] 16 Feb, 2014 [facility] [address] [id number] [address] [place] [address], [place] [address] Feb, [facility] [address] [id number] [address] [place] [address], [place] [address] Jan, [facility] [address] [id number] [address] [place] [address], [place] [address] Jan, [facility] [address] [id number] [address] [place] [address], [place] [address] Jan, [facility] [address] [id number] [address] [place] [address], [place] [address] Jan, [facility] [address] [id number] [address] [place] [address], [place] [address] Jan, [facility] [address] [id number] [address] [place] [address], [place] [address] Jan, [facility] [address] [id number] [address] [place] [address], [place] [address] Dec, [facility] [address] [id number] [address] [place] [address], [place] [address] Dec, [facility] [address] [id number] [address] [place] [address], [place] [address] Oct, [facility] [address] [id number] [address] [place] [address], [place] [address] Oct, [facility] [address] [id number] [address] [place] [address], [place] [address] Sep, [facility] [address] [id number] [address] [place] [address], [place] [address] Sep, [facility] [address] [id number] [address] [place] [address], [place] [address] Sep, [facility] [address] [id number] [address] [place] [address], [place] [address] Sep, [facility] [address] [id number] [address] [place] [address], [place] [address] Aug, [facility] [address] [id number] [address] [place] [address], [place] [address] Aug, [facility] [address] [id number] [address] [place] [address], [place] [address] July, [facility] [address] [id number] [address] [place] [address], [place] [address] July, [facility] [address] [id number] [address] [place] [address], [place] [address] Jun, [facility] [address] [id number] [address] [place] [address], [place] [address] Jun, [facility] [address] [id number] [address] [place] [address], [place] [address] May, [facility] [address] [id number] [address] [place] [address], [place] [address] May, [facility] [address] [id number] [address] [place] [address], [place] [address] Apr, [facility] [address] [id number] [address] [place] [address], [place] [address] Apr, [facility] [address] [id number] [address] [place] [address], [place] [address] Mar, [facility] [address] [id number] [address] [place] [address], [place] [address] Mar, [facility] [address] [id number] [address] [place] [address], [place] [address] Jan, [facility] [address] [id number] [address] [place] [address], [place] [address] Jan, [facility] [address] [id number] [address] [place] [address], [place] [address] Jan, [facility] [address] [id number] [address] [place] [address], [place] [address] Jan, [facility] [address] [id number] [address] [place] [address] Jan, [facility] [address] [id number] [address] [place] [address], [place] [id number] Dec, [facility] [address] [id number] [address] [place] [id number] Dec, [facility] [address] [id number] [address] [place] [address], [place] [id number] Dec, [facility] [address] [id number] [address] [place] [id number] Nov, [facility] [address] [id number] [address] [place] [address], [place] [id number] Nov, [facility] [address] [id number] [address] [place] [address], [place] [id number] Sep, [facility] [address] [id number] [address] [place] [id number] Sep, [facility] [address] [id number] [address] [place] [id number] Aug, [facility] [address] [id number] [address] [place] [id number] Aug, [facility] [address] [id number] [place] [id number] July, [facility] [address] [id number] [place] [id number] Jun, [facility] [address] [id number] [place] [id number] Apr, [facility] [address] [id number] [place] [id number] Mar, [facility] [address] [id number] [address] [place] [id number] Mar, [facility] [address] [id number] [place] [id number] Mar, [facility] [address] [id number] [address] [place] [id number] Mar, [facility] [place] [address] [id number] [place] [id number] Feb, [facility] [address] [facility] [id number] [address] [place] [id number] Feb, [facility] [place] [address] [id number] [place] [id number] Feb, [facility] [address] [facility] [id number] [address] [place] [id number] Feb, [facility] [place] [address] [id number] [place] [id number] Oct, [facility] [place] [address] [id number] [place] [id number] Oct, [facility] [place] [address] [id number] [place] [id number] July, [facility] [place] [address] [id number] [place] [id number] July, [facility] [place] [address] [id number] [place] [id number] Jun, [facility] [place] [address] [id number] [place] [id number] Jun, [facility] [place] [address] [id number] [place] [id number] Jun, [facility] [place] [address] [id number] [place] [id number] Mar, [facility] [place] [address] [id number] [place] [id number] Mar, [facility] [address] [facility] [id number] [address] [place] [id number] Feb, [facility] [address] [facility] [id number] [address] [place] [id number] Feb, [facility] [address] [facility] [id number] [address] [place] [id number] Jan, [facility] [address] [facility] [id number] [address] [place] [id number] Jan, [facility] [address] [facility] [id number] [address] [place] [id number] Jan, [facility] [address] [id number] [address] [place] [id number] Jan, [facility] [address] [facility] [id number] [address] [place] [id number] Jan, [facility] [address] [facility] [id number] [address] [place] [id number] Aug, [facility] [address] [facility] [id number] [address] [place] [id number] Apr, IMMUNIZATIONS No Known Immunizations SOCIAL HISTORY Never Assessed REASON FOR VISIT Discuss Gout, 2 flare ups in the past 6mo's. Pt is wondering if he should get s tarted back on allopurinol. -TOAN Olson PLAN OF CARE Activity Details Follow Up 3 Months Reason:Pain managem ent VITAL SIGNS Height 76 in 2017-06-15 Weight 320 lbs 2017-06-15 Temperature 97.8 degrees Fahrenheit 2017-06-15 Heart Rate 90 bpm 2017-06-15 Respiratory Rate 20 2017-06-15 BMI 38.95 kg/m2 2017-06-15 Blood pressure systolic 110 mmHg 2017-06-15 Blood pressure diastolic 80 mmHg 2017-06-15 MEDICATIONS Medication Instructions Dosage Frequency Start Date End Date Duration S tatus Hydrocodone-Acetaminophen 10-325 MG Orally 4 times a day as needed for pain 1 tablet Apr, Active Allopurinol 100 mg Orally Once a day 1 tablet 24h May, Nov, 30 day(s) Active Gabapentin 400 mg Orally Three times a day 1 tablet 8h July, 90 days Active Warfarin Sodium 10 mg Orally Once a day 1 tablet 24h 90 days Active Colchicine 0.6 MG Orally Once a day 1 tablet 24h Mar,Nov, 30 days Active Lisinopril 20 mg Orally Once a day 1 tablet 24h 90 d ays Active Fish Oil 1 gram take 1 capsule by Oral route 3 times per day Sep, Active Pravastatin Sodium 40 mg Orally Once a day 1 tablet 24h Active Clindamycin HCl 300 MG Orally every 8 hrs 1 capsule 8h May, Jun, 10 days Active Aspirin 325 MG Orally Once a day 1 tablet 24h Active RESULTS No Results PROCEDURES Procedure Date Ordered Result Body Site DRUG TEST PRSMV CHEM ANLYZR June 15, 2017 INSTRUCTIONS MEDICATIONS ADMINISTERED No Known Medications [...]
--- OUTSIDE RECORDS SUMMARY | 2019-11-08 13:12 | XMS REPORT ---
Author Author Zana ORTIZ 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 Name Role Phone DIANADAVIDAVANI Unavailable PROBLEMS Type Condition ICD9-CM Code [id number] Code Onset Dates Condition S tatus SNOMED Code Problem Factor V Leiden D68.51 Active 3070 46373 Problem Post-phlebitic syndrome I87.009 Active 36713056 Problem Anticoagulant long-term use Z79.01 Ac tive 374025489 Problem Essential hypertension I10 Active 82379930 Problem Other chronic pain G89.29 Active 8 9007889 Problem Venous stasis ulcers, left I83.029 Act ozzy 594735662 Problem 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 42572925 Problem Congenital single kidney Q60.0 Activ e 60261903 Problem Venous anomaly Q27.9 Active 59852 4003 Problem Pure hypercholesterolemia E78.00 Acti ve 007957593 Problem Chronic prescription opiate use Z79.899 Active 539915062 ALLERGIES No Information ENCOUNTERS Encounter Location Date Diagnosis [facility] [address] [facility] [id number] [address] [place] [id number] Sep, Other chronic pain G89.29 [facility] [address] [facility] [id number] [address] [place] [id number] 18 Aug, 2017 Other chronic pain G89.29 [facility] [address] [facility] [id number] [address] [place] [id number] Aug, Venous stasis ulcers, left I 83.029 [facility] [address] [facility] [id number] [address] [place] [id number] July, Other chronic pain G89.29 [facility] [address] [facility] [id number] [address] [place] [id number] July, Venous stasis ulcers, left I 83.029 and Snoring R06.83 [place] [address] [facility] [id number] [address] [place] [id number] Jun, Idiopathic chronic gout of ultiple sites without tophus M1A.09X0 [place] [address] [facility] [id number] [address] [place] [id number] Jun, Acute renal insufficiency N2 8.9 [place] [address] [facility] [id number] [address] [place] [id number] Jun, Other chronic pain G89.29 [place] [address] [facility] [id number] [address] [place] [id number] Jun, Acute renal insufficiency N2 8.[id number] [place] [id number] Jun, Idiopathic chronic gout of multiple site s without tophus M1A.09X0 ; Essential hypertension I10 and Anticoagulant long-term use Z79.01 [place] [address] [facility] [id number] [address] [place] [id number] Jun, Anticoagulant long-term use Z79.01 and Essential hypertension I10 [place] [address] [facility] [id number] [address] [place] [id number] May, Idiopathic chronic gout of ultiple sites without tophus M1A.09X0 [place] [address] [facility] [id number] [address] [place] [id number] May, [place] [address] [facility] [id number] [address] [place] [id number] May, Essential hypertension I10 ; Pure hypercholesterolemia E78.00 ; Anticoagulant long-term use Z79.01 and Idiopathic chronic gout of multiple sites without tophus M1A.09X0 [place] [address] [facility] [id number] [address] [place] [id number] May, Other chronic pain G89.29 [place] [address] [facility] [id number] [address] [place] [id number] May, Anticoagulant long-term use Z79.01 [place] [address] [facility] [id number] [address] [place] [id number] May, Chronic prescription opiate use Z79.899 ; Other chronic pain G89.29 ; Essential hypertension I10 ; Factor V Leiden D68.51 ; Anticoagulant long-term use Z79.01 ; Pure hypercholesterolemia E78.00 ; Venous stasis ulcers, left I83.029 ; Idiopathic chronic gout of multiple sites without tophus M1A.09X0 and Cellulitis of left lower extremity L03.116 [place] [address] [facility] [id number] [address] [place] [id number] Apr, Other chronic pain G89.29 [place] [address] [place] [id number] [address] [place] [id number] Mar, Other chronic pain G89.29 [place] [address] [place] [id number] [address] [place] [id number] Mar, Factor V Leiden D68.51 ; Pur e hypercholesterolemia E78.00 and Other chronic pain G89.29 [place] [address] [place] [id number] [address] [place] [id number] Feb, Other chronic pain G89.29 [place] [address] [place] [id number] [address] [place] [id number] Jan, Idiopathic chronic gout of m ultiple sites without tophus M1A.09X0 [place] [address] [facility] [id number] [address] [place] [id number] Jan, Other chronic pain G89.29 [place] [address] [facility] [id number] [address] [place] [id number] Dec, Anticoagulant long-term use Z79.01 ; Factor V Leiden D68.51 and Other chronic pain G89.29 [place] [address] [place] [id number] [address] [place] [id number] Dec, Other chronic pain G89.29 [facility] [address] [facility] [id number] [address] [place] [id number] Nov, Other chronic pain G89.29 [facility] [address] [facility] [id number] [address] [place] [id number] 16 Oct, 2016 Other chronic pain G89.29 [place] [address] [facility] [id number] [address] [place] [phone] Sep, Anticoagulant long-term use Z79.01 [facility] [address] [facility] [id number] [address] [place] [id number] Sep, Chronic prescription opiate use Z79.899 ; Anticoagulant long-term use Z79.01 ; Essential hypertension I10 ; Pure hypercholesterolemia E78.00 ; Factor V Leiden D68.51 ; Venous stasis ulcers, left I83.029 ; Other chronic pain G89.29 and Idiopathic chronic gout of multiple sites without tophus M1A.09X0 [place] [address] [facility] [id number] [address] [place] [phone] Aug, Anticoagulant long-term use Z79.01 [place] [address] [facility] [id number] [address] [place] [id number] Aug, Other chronic pain G89.29 [place] [address] [facility] [id number] [address] [place] [phone] Aug, Essential hypertension I10 a nd Factor V Leiden D68.[address] [place] [id number] [place] [address] [id number] 15 Aug, 2016 Acute right ankle pain M25.571 and Tendo nitis of ankle M77.50 [place] [address] [facility] [id number] [address] [place] [phone] Aug, [place] [address] [facility] [id number] [address] [place] [id number] July, Other chronic pain G89.29 [place] [address] [facility] [id number] [address] [place] [id number] Jun, Other chronic pain G89.29 [facility] [address] [id number] [address] [place] [phone] Jun, Other chronic pain G89.29 [facility] [address] [facility] [id number] [address] [place] [id number] Jun, Anticoagulant long-term use Z79.01 [facility] [address] [facility] [id number] [address] [place] [id number] May, Other chronic pain G89.29 [facility] [address] [facility] [id number] [address] [place] [id number] May, Anticoagulant long-term use Z79.01 [facility] [address] [facility] [id number] [address] [place] [id number] May, Other chronic pain G89.29 [facility] [address] [facility] [id number] [address] [place] [id number] Apr, Anticoagulant long-term use Z79.01 [facility] [address] [facility] [id number] [address] [place] [id number] Apr, Other chronic pain G89.29 [facility] [address] [facility] [id number] [address] [place] [id number] Apr, Anticoagulant long-term use Z79.01 and Pure hypercholesterolemia E78.00 [facility] [address] [facility] [id number] [address] [place] [id number] Mar, [facility] [address] [facility] [id number] [address] [place] [phone] Mar, Anticoagulant long-term use Z79.01 [facility] [address] [facility] [id number] [address] [place] [id number] Mar, Other chronic pain G89.29 [facility] [address] [facility] [id number] [address] [place] [id number] Feb, Essential hypertension I10 ; Chronic prescription opiate use Z79.899 ; Other chronic pain G89.29 ; Screening Z13.9 ; Factor V Leiden D68.51 ; Anticoagulant long-term use Z79.01 ; Venous stasis dermatitis of left lower extremity I83.12 and Pure hypercholesterolemia E78.00 [facility] [address] [facility] [id number] [address] [place] [id number] 14 Jan, 2016 Anticoagulant long-term use Z79.01 [facility] [address] [id number] [address] [place] [id number] Jan, Anticoagulant long-term use Z79.01 [facility] [address] [facility] [id number] [address] [place] [id number] Jan, [facility] [address] [facility] [id number] [address] [place] [id number] Jan, [facility] [address] [facility] [id number] [address] [place] [id number] Dec, [facility] [address] [facility] [id number] [address] [place] [id number] Nov, [facility] [address] [facility] [id number] [address] [place] [id number] Oct, Anticoagulant long-term use Z79.01 [facility] [address] [facility] [id number] [address] [place] [id number] Oct, [facility] [address] [facility] [id number] [address] [place] [id number] Oct, Anticoagulant long-term use Z79.01 [facility] [address] [id number] [address] [place] [id number] Sep, [facility] [address] [facility] [id number] [address] [place] [phone] Aug, [facility] [address] [facility] [id number] [address] [place] [address] Aug, Chronic prescription opiate use Z79.899 ; Other chronic pain G89.29 ; Essential hypertension I10 and Pure hypercholesterolemia E78.0 [facility] [address] [facility] [id number] [address] [place] [id number] July, Hyperlipidemia, group D E78. 3 and Anticoagulant long-term use Z79.01 [facility] [address] [facility] [id number] [address] [place] [phone] July, Hyperlipidemia, group D E78. 3 ; Essential hypertension I10 and Factor V Leiden D68.51 [facility] [address] [facility] [id number] [address] [place] [id number] July, Essential hypertension I10 [place] [address] [facility] [id number] [address] [place] [id number] Jun, Hyperlipidemia, group D E78. 3 [place] [address] [facility] [id number] [address] [place] [id number] Jun, Factor V Leiden D68.51 [facility] [address] [facility] [id number] [address] [place] [phone] May, Factor V Leiden D68.51 ; Hyp erlipidemia, group D E78.3 ; Essential hypertension I10 ; Other chronic pain G89.29 and Anticoagulant long-term use Z79.01 [place] [address] [facility] [id number] [address] [place] [id number] May, Anticoagulant long-term use Z79.01 [facility] [address] [facility] [id number] [address] [place] [id number] May, Anticoagulant long-term use Z79.01 [facility] [address] [facility] [id number] [address] [place] [phone] May, [place] [address] [facility] [id number] [address] [place] [phone] Apr, [facility] [address] [facility] [id number] [address] [place] [id number] Mar, [facility] [address] [facility] [id number] [address] [place] [phone] Mar, [facility] [address] [facility] [id number] [address] [place] [id number] Feb, Anticoagulant long-term use Z79.01 [facility] [address] [facility] [id number] [address] [place] [id number] 16 Feb, 2015 Chronic prescription opiate use Z79.899 ; Other chronic pain G89.29 ; Hyperlipidemia, group D E78.3 ; Factor V Leiden D68.51 and Anticoagulant long- term use Z79.01 [facility] [address] [facility] [id number] [address] [place] [id number] Feb, [facility] [address] [place] [id number] [place] [id number] Jan, [facility] [address] [id number] Dec, Hyperlipidemia, unspecified E78.5 [facility] [address] [facility] [id number] [address] [place] [id number] Dec, Cellulitis of left lower ext remity L03.116 ; Venous stasis ulcers, left I83.029 and Factor V Leiden D68.51 [facility] [address] [place] [id number] [address] [place] [id number] Dec, Hyperlipidemia 272.4 and Fac tor V Leiden 289.81 [facility] [address] [facility] [id number] [address] [place] [id number] Dec, [facility] [address] [facility] [id number] [address] [place] [phone] Nov, Factor V Leiden 289.81 [facility] [address] [place] [id number] [address] [place] [phone] Nov, [facility] [address] [place] [id number] [address] [place] [phone] Nov, [facility] [address] [place] [id number] [address] [place] [phone] Nov, [facility] [address] [facility] [id number] [address] [place] [id number] Oct, [facility] [address] [facility] [id number] [address] [place] [id number] Oct, Hyperlipidemia 272.4 ; Chron ic pain disorder 338.4 ; Venous stasis ulcer of left lower extremity 454.0 and Factor V Leiden 289.81 [facility] [address] [place] [id number] [place] [phone] Sep, [facility] [address] [place] [id number] [place] [id number] Sep, [facility] [address] [place] [id number] [place] [address] Sep, Hyperlipidemia 272.4 and Fac tor V Leiden 289.81 [facility] [address] [place] [id number] [address] [place] [phone] Aug, [facility] [address] [place] [id number] [place] [phone] Aug, Factor V Leiden 289.81 [facility] [address] [place] [id number] [address] [place] [id number] July, [facility] [address] [place] [id number] [address] [place] [address] July, Essential hypertension, fito gn 401.1 ; Factor V Leiden 289.81 ; Chronic pain disorder 338.4 ; Hyperlipidemia 272.4 and Venous stasis ulcer of left lower extremity 454.0 [facility] [address] [id number] Jun, [facility] [address] [place] [id number] [place] [phone] Jun, [facility] [address] [id number] May, [facility] [address] [id number] [address] [place] [address], [place] [id number] May, [facility] [address] [id number] [address] [place] [address], [place] [id number] 20 Apr, 2014 [facility] [address] [id number] [address] [place] [address], [place] [id number] Apr, [facility] [address] [id number] [address] [place] [address], [place] [id number] Apr, [facility] [address] [id number] [address] [place] [address], [place] [id number] Apr, [facility] [address] [id number] [address] [place] [address], [place] [id number] Apr, [facility] [address] [id number] [address] [place] [address], [place] [id number] Apr, [facility] [address] [id number] [address] [place] [address], [place] [id number] Mar, [facility] [address] [id number] [address] [place] [address], [place] [id number] Mar, [facility] [address] [id number] [address] [place] [address], [place] [id number] Mar, [facility] [address] [id number] [address] [place] [address], [place] [id number] Mar, [facility] [address] [id number] [address] [place] [address], [place] [id number] Feb, [facility] [address] [id number] [address] [place] [address], [place] [id number] Feb, [facility] [address] [id number] [address] [place] [address], [place] [id number] 16 Feb, 2014 [facility] [address] [id number] [address] [place] [address], [place] [id number] 16 Feb, 2014 [facility] [address] [id number] [address] [place] [address], [place] [id number] Jan, [facility] [address] [id number] [address] [place] [address], [place] [id number] Jan, [facility] [address] [id number] [address] [place] [address], [place] [id number] Jan, [facility] [address] [id number] [address] [place] [address], [place] [id number] Jan, [facility] [address] [id number] [address] [place] [address], [place] [id number] Jan, [facility] [address] [id number] [address] [place] [address], [place] [id number] Jan, [facility] [address] [id number] [address] [place] [address], [place] [id number] Dec, [facility] [address] [id number] [address] [place] [address], [place] [id number] Dec, [facility] [address] [id number] [address] [place] [address], [place] [id number] Oct, [facility] [address] [id number] [address] [place] [address], [place] [id number] Oct, [facility] [address] [id number] [address] [place] [address], [place] [id number] Sep, [facility] [address] [id number] [address] [place] [address], [place] [id number] Sep, [facility] [address] [id number] [address] [place] [address], [place] [id number] Sep, [facility] [address] [id number] [address] [place] [address], [place] [id number] Sep, [facility] [address] [id number] [address] [place] [address], [place] [id number] Aug, [facility] [address] [id number] [address] [place] [address], [place] [id number] Aug, [facility] [address] [id number] [address] [place] [address], [place] [id number] July, [facility] [address] [id number] [address] [place] [address], [place] [id number] July, [facility] [address] [id number] [address] [place] [address], [place] [id number] Jun, [facility] [address] [id number] [address] [place] [address], [place] [id number] Jun, [facility] [address] [id number] [address] [place] [address], [place] [id number] May, [facility] [address] [id number] [address] [place] [address], [place] [id number] May, [facility] [address] [id number] [address] [place] [address], [place] [id number] Apr, [facility] [address] [id number] [address] [place] [address], [place] [id number] Apr, [facility] [address] [id number] [address] [place] [address], [place] [id number] Mar, [facility] [address] [id number] [address] [place] [address], [place] [id number] Mar, [facility] [address] [id number] [address] [place] [address], [place] [id number] Jan, [facility] [address] [id number] [address] [place] [address], [place] [id number] Jan, [facility] [address] [id number] [address] [place] [address], [place] [id number] Jan, [facility] [address] [id number] [address] [place] [address], [place] [id number] Jan, [facility] [address] [id number] [address] [place] [address], [place] [id number] Jan, [facility] [address] [id number] [address] [place] [id number] Dec, [facility] [address] [id number] [address] [place] [address], [place] [id number] Dec, [facility] [address] [id number] [address] [place] [id number] Dec, [facility] [address] [id number] [address] [place] [address], [place] [id number] Nov, [facility] [address] [id number] [address] [place] [id number] Nov, [facility] [address] [id number] [address] [place] [address], [place] [id number] Sep, [facility] [address] [id number] [address] [place] [address], [place] [id number] Sep, [facility] [address] [id number] [address] [place] [id number] Aug, [facility] [address] [id number] [address] [place] [address], [place] [id number] Aug, [facility] [address] [id number] [place] [id number] July, [facility] [address] [id number] [place] [id number] Jun, [facility] [address] [id number] [place] [id number] Apr, [facility] [address] [id number] [place] [id number] Mar, [facility] [address] [id number] [address] [place] [address], [place] [id number] Mar, [facility] [address] [id number] [place] [id number] Mar, [facility] [address] [id number] [address] [place] [address], [place] [id number] Mar, [facility] [address] [id number] [place] [id number] Feb, [facility] [address] [id number] [address] [place] [id number] Feb, [facility] [address] [id number] [place] [id number] Feb, [facility] [address] [facility] [id number] [address] [place] [id number] Feb, [facility] [place] [address] [id number] [place] [id number] Oct, [facility] [address] [id number] [place] [id number] Oct, [facility] [address] [id number] [place] [id number] July, [facility] [place] [address] [id number] [place] [id number] July, [facility] [place] [address] [id number] [place] [id number] Jun, [facility] [place] [address] [id number] [place] [id number] Jun, [facility] [address] [id number] [place] [id number] Jun, [facility] [address] [id number] [place] [id number] Mar, [facility] [place] [address] [id number] [place] [id number] Mar, [facility] [address] [facility] [id number] [address] [place] [id number] Feb, [facility] [address] [facility] [id number] [address] [place] [id number] Feb, [facility] [address] [facility] [id number] [address] [place] [id number] Jan, [facility] [address] [facility] [id number] [address] [place] [id number] Jan, [facility] [address] [facility] [id number] [address] [place] [id number] Jan, [facility] [address] [facility] [id number] [address] [place] [id number] Jan, [facility] [address] [facility] [id number] [address] [place] [id number] Jan, [facility] [address] [facility] [id number] [address] [place] [phone] Aug, [facility] [address] [facility] [id number] [address] [place] [phone] Apr, IMMUNIZATIONS No Known Immunizations SOCIAL HISTORY [...]
--- OUTSIDE RECORDS SUMMARY | 2019-11-08 13:12 | XMS REPORT ---
Author Author Zana ORTIZ [facility] Address [address] [place] [address] Care Team Providers Care Oil And Gas Specialist Name Role Phone DIANADAVIDAVANI Unavailable PROBLEMS Type Condition ICD9-CM Code [id number] Code Onset Dates Condition S tatus SNOMED Code Problem Factor V Leiden D68.51 Active 3070 63839 Problem Post-phlebitic syndrome I87.009 Active 61112326 Problem Anticoagulant long-term use Z79.01 Ac tive 127025918 Problem Essential hypertension I10 Active 43412823 Problem Other chronic pain G89.29 Active 8 4806887 Problem Venous stasis ulcers, left I83.029 Act ozzy 171712136 Problem 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 22218624 Problem Congenital single kidney Q60.0 Activ e 27993068 Problem Venous anomaly Q27.9 Active 67478 4003 Problem Pure hypercholesterolemia E78.00 Acti ve 556492987 Problem Chronic prescription opiate use Z79.899 Active 293657002 ALLERGIES No Information ENCOUNTERS Encounter Location Date Diagnosis [facility] [address] [facility] [id number] [address] [place] [phone] Sep, Other chronic pain G89.29 [facility] [address] [facility] [id number] [address] [place] [id number] 18 Aug, 2017 Other chronic pain G89.29 [facility] [address] [facility] [id number] [address] [place] [phone] 11 Aug, 2017 Venous stasis ulcers, left I 83.029 [facility] [address] [facility] [id number] [address] [place] [phone] July, Other chronic pain G89.29 [facility] [address] [facility] [id number] [address] [place] [address] July, Venous stasis ulcers, left I 83.029 and Snoring R06.83 [facility] [address] [facility] [id number] [address] [place] [address] Jun, Idiopathic chronic gout of ultiple sites without tophus M1A.09X0 [place] [address] [facility] [id number] [address] [place] [address] Jun, Acute renal insufficiency N2 8.9 [place] [address] [facility] [id number] [address] [place] [phone] Jun, Other chronic pain G89.29 [place] [address] [facility] [id number] [address] [place] [phone] Jun, Acute renal insufficiency N2 8.[id number] [place] [id number] Jun, Idiopathic chronic gout of multiple site s without tophus M1A.09X0 ; Essential hypertension I10 and Anticoagulant long-term use Z79.01 [place] [address] [facility] [id number] [address] [place] [address] Jun, Anticoagulant long-term use Z79.01 and Essential hypertension I10 [place] [address] [facility] [id number] [address] [place] [address] May, Idiopathic chronic gout of ultiple sites without tophus M1A.09X0 [place] [address] [facility] [id number] [address] [place] [address] May, [place] [address] [facility] [id number] [address] [place] [address] May, Essential hypertension I10 ; Pure hypercholesterolemia E78.00 ; Anticoagulant long-term use Z79.01 and Idiopathic chronic gout of multiple sites without tophus M1A.09X0 [place] [address] [facility] [id number] [address] [place] [address] May, Other chronic pain G89.29 [place] [address] [facility] [id number] [address] [place] [address] May, Anticoagulant long-term use Z79.01 [place] [address] [facility] [id number] [address] [place] [address] May, Chronic prescription opiate use Z79.899 ; Other chronic pain G89.29 ; Essential hypertension I10 ; Factor V Leiden D68.51 ; Anticoagulant long-term use Z79.01 ; Pure hypercholesterolemia E78.00 ; Venous stasis ulcers, left I83.029 ; Idiopathic chronic gout of multiple sites without tophus M1A.09X0 and Cellulitis of left lower extremity L03.116 [place] [address] [facility] [id number] [address] [place] [address] Apr, Other chronic pain G89.29 [place] [address] [place] [id number] [address] [place] [address] Mar, Other chronic pain G89.29 [place] [address] [place] [id number] [address] [place] [address] Mar, Factor V Leiden D68.51 ; Pur e hypercholesterolemia E78.00 and Other chronic pain G89.29 [place] [address] [place] [id number] [address] [place] [address] Feb, Other chronic pain G89.29 [place] [address] [place] [id number] [address] [place] [address] Jan, Idiopathic chronic gout of m ultiple sites without tophus M1A.09X0 [place] [address] [facility] [id number] [address] [place] [address] Jan, Other chronic pain G89.29 [place] [address] [facility] [id number] [address] [place] [address] Dec, Anticoagulant long-term use Z79.01 ; Factor V Leiden D68.51 and Other chronic pain G89.29 [place] [address] [place] [id number] [address] [place] [address] Dec, Other chronic pain G89.29 [facility] [address] [facility] [id number] [address] [place] [address] Nov, Other chronic pain G89.29 [facility] [address] [facility] [id number] [address] [place] [id number] 16 Oct, 2016 Other chronic pain G89.29 [place] [address] [facility] [id number] [address] [place] [address] Sep, Anticoagulant long-term use Z79.01 [facility] [address] [facility] [id number] [address] [place] [address] Sep, Chronic prescription opiate use Z79.899 ; Anticoagulant long-term use Z79.01 ; Essential hypertension I10 ; Pure hypercholesterolemia E78.00 ; Factor V Leiden D68.51 ; Venous stasis ulcers, left I83.029 ; Other chronic pain G89.29 and Idiopathic chronic gout of multiple sites without tophus M1A.09X0 [place] [address] [facility] [id number] [address] [place] [address] Aug, Anticoagulant long-term use Z79.01 [place] [address] [facility] [id number] [address] [place] [address] Aug, Other chronic pain G89.29 [place] [address] [facility] [id number] [address] [place] [address] Aug, Essential hypertension I10 a nd Factor V Leiden D68.[address] [place] [id number] [place] [id number] 15 Aug, 2016 Acute right ankle pain M25.571 and Tendo nitis of ankle M77.50 [place] [address] [facility] [id number] [address] [place] [address] Aug, [place] [address] [facility] [id number] [address] [place] [address] July, Other chronic pain G89.29 [place] [address] [facility] [id number] [address] [place] [address] Jun, Other chronic pain G89.29 [facility] [address] [id number] [address] [place] [address] Jun, Other chronic pain G89.29 [facility] [address] [facility] [id number] [address] [place] [phone] Jun, Anticoagulant long-term use Z79.01 [facility] [address] [facility] [id number] [address] [place] [address] May, Other chronic pain G89.29 [facility] [address] [facility] [id number] [address] [place] [address] May, Anticoagulant long-term use Z79.01 [facility] [address] [facility] [id number] [address] [place] [address] May, Other chronic pain G89.29 [facility] [address] [facility] [id number] [address] [place] [address] Apr, Anticoagulant long-term use Z79.01 [facility] [address] [facility] [id number] [address] [place] [phone] Apr, Other chronic pain G89.29 [facility] [address] [facility] [id number] [address] [place] [address] Apr, Anticoagulant long-term use Z79.01 and Pure hypercholesterolemia E78.00 [facility] [address] [facility] [id number] [address] [place] [address] Mar, [facility] [address] [facility] [id number] [address] [place] [id number] Mar, Anticoagulant long-term use Z79.01 [facility] [address] [facility] [id number] [address] [place] [address] Mar, Other chronic pain G89.29 [facility] [address] [facility] [id number] [address] [place] [address] Feb, Essential hypertension I10 ; Chronic prescription opiate use Z79.899 ; Other chronic pain G89.29 ; Screening Z13.9 ; Factor V Leiden D68.51 ; Anticoagulant long-term use Z79.01 ; Venous stasis dermatitis of left lower extremity I83.12 and Pure hypercholesterolemia E78.00 [facility] [address] [facility] [id number] [address] [place] [phone] 14 Jan, 2016 Anticoagulant long-term use Z79.01 [facility] [address] [id number] [address] [place] [phone] Jan, Anticoagulant long-term use Z79.01 [facility] [address] [facility] [id number] [address] [place] [address] Jan, [facility] [address] [facility] [id number] [address] [place] [phone] Jan, [facility] [address] [facility] [id number] [address] [place] [phone] Dec, [facility] [address] [facility] [id number] [address] [place] [phone] Nov, [facility] [address] [facility] [id number] [address] [place] [phone] Oct, Anticoagulant long-term use Z79.01 [facility] [address] [facility] [id number] [address] [place] [address] Oct, [facility] [address] [facility] [id number] [address] [place] [id number] Oct, Anticoagulant long-term use Z79.01 [facility] [address] [id number] [address] [place] [phone] Sep, [facility] [address] [facility] [id number] [address] [place] [phone] Aug, [facility] [address] [facility] [id number] [address] [place] [address] Aug, Chronic prescription opiate use Z79.899 ; Other chronic pain G89.29 ; Essential hypertension I10 and Pure hypercholesterolemia E78.0 [facility] [address] [facility] [id number] [address] [place] [phone] July, Hyperlipidemia, group D E78. 3 and Anticoagulant long-term use Z79.01 [facility] [address] [facility] [id number] [address] [place] [phone] July, Hyperlipidemia, group D E78. 3 ; Essential hypertension I10 and Factor V Leiden D68.51 [facility] [address] [facility] [id number] [address] [place] [address] July, Essential hypertension I10 [place] [address] [facility] [id number] [address] [place] [phone] Jun, Hyperlipidemia, group D E78. [address] [place] [address] [facility] [id number] [address] [place] [address] Jun, Factor V Leiden D68.51 [facility] [address] [facility] [id number] [address] [place] [phone] May, Factor V Leiden D68.51 ; Hyp erlipidemia, group D E78.3 ; Essential hypertension I10 ; Other chronic pain G89.29 and Anticoagulant long-term use Z79.01 [place] [id number] [facility] [id number] [address] [place] [phone] May, Anticoagulant long-term use Z79.01 [facility] [address] [facility] [id number] [address] [place] [phone] May, Anticoagulant long-term use Z79.01 [facility] [address] [facility] [id number] [address] [place] [id number] May, [place] [address] [facility] [id number] [address] [place] [phone] Apr, [facility] [address] [facility] [id number] [address] [place] [phone] Mar, [facility] [address] [facility] [id number] [address] [place] [phone] Mar, [facility] [address] [facility] [id number] [address] [place] [phone] Feb, Anticoagulant long-term use Z79.01 [facility] [address] [facility] [id number] [address] [place] [id number] 16 Feb, 2015 Chronic prescription opiate use Z79.899 ; Other chronic pain G89.29 ; Hyperlipidemia, group D E78.3 ; Factor V Leiden D68.51 and Anticoagulant long- term use Z79.01 [facility] [address] [facility] [id number] [address] [place] [phone] Feb, [facility] [address] [place] [id number] [place] [phone] Jan, [facility] [address] [address] Dec, Hyperlipidemia, unspecified E78.5 [facility] [address] [facility] [id number] [address] [place] [address] Dec, Cellulitis of left lower ext remity L03.116 ; Venous stasis ulcers, left I83.029 and Factor V Leiden D68.51 [facility] [address] [place] [id number] [address] [place] [address] Dec, Hyperlipidemia 272.4 and Fac tor V Leiden 289.81 [facility] [address] [facility] [id number] [address] [place] [address] Dec, [facility] [address] [facility] [id number] [address] [place] [address] Nov, Factor V Leiden 289.81 [facility] [address] [place] [id number] [address] [place] [phone] Nov, [facility] [address] [place] [id number] [address] [place] [phone] Nov, [facility] [address] [place] [id number] [address] [place] [phone] Nov, [facility] [address] [facility] [id number] [address] [place] [phone] Oct, [facility] [address] [facility] [id number] [address] [place] [phone] Oct, Hyperlipidemia 272.4 ; Chron ic pain disorder 338.4 ; Venous stasis ulcer of left lower extremity 454.0 and Factor V Leiden 289.81 [facility] [address] [place] [id number] [place] [phone] Sep, [facility] [address] [place] [id number] [place] [address] Sep, [facility] [address] [place] [id number] [place] [address] Sep, Hyperlipidemia 272.4 and Fac tor V Leiden 289.81 [facility] [address] [place] [id number] [address] [place] [address] Aug, [facility] [address] [place] [id number] [place] [phone] Aug, Factor V Leiden 289.81 [facility] [address] [place] [id number] [address] [place] [phone] July, [facility] [address] [place] [id number] [address] [place] [address] July, Essential hypertension, fito gn 401.1 ; Factor V Leiden 289.81 ; Chronic pain disorder 338.4 ; Hyperlipidemia 272.4 and Venous stasis ulcer of left lower extremity 454.0 [facility] [address] [address] Jun, [facility] [address] [place] [id number] [place] [phone] Jun, [facility] [address] [address] May, [facility] [address] [id number] [address] [place] [address], [place] [address] May, [facility] [address] [id number] [address] [place] [address], [place] [address] 20 Apr, 2014 [facility] [address] [id number] [address] [place] [address], [place] [address] Apr, [facility] [address] [id number] [address] [place] [address], [place] [address] Apr, [facility] [address] [id number] [address] [place] [address], [place] [address] Apr, [facility] [address] [id number] [address] [place] [address], [place] [address] Apr, [facility] [address] [id number] [address] [place] [address], [place] [address] Apr, [facility] [address] [id number] [address] [place] [address], [place] [address] Mar, [facility] [address] [id number] [address] [place] [address], [place] [address] Mar, [facility] [address] [id number] [address] [place] [address], [place] [address] Mar, [facility] [address] [id number] [address] [place] [address], [place] [address] Mar, [facility] [address] [id number] [address] [place] [address], [place] [address] Feb, [facility] [address] [id number] [address] [place] [address], [place] [address] Feb, [facility] [address] [id number] [address] [place] [address], [place] [address] 16 Feb, 2014 [facility] [address] [id number] [address] [place] [address], [place] [address] 16 Feb, 2014 [facility] [address] [id number] [address] [place] [address], [place] [address] Jan, [facility] [address] [id number] [address] [place] [address], [place] [address] Jan, [facility] [address] [id number] [address] [place] [address], [place] [address] Jan, [facility] [address] [id number] [address] [place] [address], [place] [address] Jan, [facility] [address] [id number] [address] [place] [address], [place] [address] Jan, [facility] [address] [id number] [address] [place] [address], [place] [address] Jan, [facility] [address] [id number] [address] [place] [address], [place] [address] Dec, [facility] [address] [id number] [address] [place] [address], [place] [address] Dec, [facility] [address] [id number] [address] [place] [address], [place] [address] Oct, [facility] [address] [id number] [address] [place] [address], [place] [address] Oct, [facility] [address] [id number] [address] [place] [address], [place] [address] Sep, [facility] [address] [id number] [address] [place] [address], [place] [address] Sep, [facility] [address] [id number] [address] [place] [address], [place] [address] Sep, [facility] [address] [id number] [address] [place] [address], [place] [address] Sep, [facility] [address] [id number] [address] [place] [address], [place] [address] Aug, [facility] [address] [id number] [address] [place] [address], [place] [address] Aug, [facility] [address] [id number] [address] [place] [address], [place] [address] July, [facility] [address] [id number] [address] [place] [address], [place] [address] July, [facility] [address] [id number] [address] [place] [address], [place] [address] Jun, [facility] [address] [id number] [address] [place] [address], [place] [address] Jun, [facility] [address] [id number] [address] [place] [address], [place] [address] May, [facility] [address] [id number] [address] [place] [address], [place] [address] May, [facility] [address] [id number] [address] [place] [address], [place] [id number] Apr, [facility] [address] [id number] [address] [place] [address], [place] [id number] Apr, [facility] [address] [id number] [address] [place] [address], [place] [address] Mar, [facility] [address] [id number] [address] [place] [address], [place] [id number] Mar, [facility] [address] [id number] [address] [place] [address], [place] [address] Jan, [facility] [address] [id number] [address] [place] [address], [place] [address] Jan, [facility] [address] [id number] [address] [place] [address], [place] [id number] Jan, [facility] [address] [id number] [address] [place] [address], [place] [id number] Jan, [facility] [address] [id number] [address] [place] [address], [place] [address] Jan, [facility] [address] [id number] [address] [place] [id number] Dec, [facility] [address] [id number] [address] [place] [address], [place] [address] Dec, [facility] [address] [id number] [address] [place] [id number] Dec, [facility] [address] [id number] [address] [place] [address], [place] [id number] Nov, [facility] [address] [id number] [address] [place] [id number] Nov, [facility] [address] [id number] [address] [place] [address], [place] [address] Sep, [facility] [address] [id number] [address] [place] [address], [place] [address] Sep, [facility] [address] [id number] [address] [place] [id number] Aug, [facility] [address] [id number] [address] [place] [address], [place] [address] Aug, [facility] [address] [id number] [place] [id number] July, [facility] [address] [id number] [place] [id number] Jun, [facility] [place] [address] [id number] [place] [id number] Apr, [facility] [address] [id number] [place] [id number] Mar, [facility] [address] [id number] [address] [place] [address], [place] [id number] Mar, [facility] [place] [address] [id number] [place] [id number] Mar, [facility] [address] [id number] [address] [place] [address], [place] [address] Mar, [facility] [address] [id number] [place] [id number] Feb, [facility] [address] [id number] [address] [place] [id number] Feb, [facility] [place] [address] [id number] [place] [id number] Feb, [facility] [address] [facility] [id number] [address] [place] [phone] Feb, [facility] [address] [id number] [place] [id number] Oct, [facility] [address] [id number] [place], [place] [id number] Oct, [facility] [address] [id number] [place], [place] [id number] July, [facility] [address] [id number] [place] [id number] July, [facility] [address] [id number] [place] [id number] Jun, [facility] [address] [id number] [place], [place] [id number] Jun, [facility] [address] [id number] [place]IN[place], [place] [id number] Jun, [facility] [address] [id number] [place]H, [place] S [id number] Mar, [facility] [address] [id number] [place], [place] [id number] Mar, [facility] [address] [facility] [id number] [address] [place] [phone] Feb, [facility] [address] [facility] [id number] [address] [place] [phone] Feb, [facility] [address] [facility] [id number] [address] [place] [phone] Jan, [facility] [address] [facility] [id number] [address] [place] [phone] Jan, [facility] [address] [facility] [id number] [address] [place] [phone] Jan, [facility] [address] [facility] [id number] [address] [place] [phone] Jan, [facility] [address] [facility] [id number] [address] [place] [phone] Jan, [facility] [address] [facility] [id number] [address] [place] [phone] Aug, [facility] [address] [facility] [id number] [address] [place] [phone] 17 Apr, 2010 IMMUNIZATIONS No Known Immunizations SOCIAL HISTORY Never Assessed REASON FOR VISIT Future Lab Order PLAN OF CARE VITAL SIGNS MEDICATIONS Unknown [...]
--- OUTSIDE RECORDS SUMMARY | 2019-11-08 13:13 | XMS REPORT ---
Author Author Zana ORTIZ [facility] Address [address] [place] [address] Care Team Providers Care Silver Steward Name Role Phone AVANI ORTIZ Unavailable PROBLEMS Type Condition ICD9-CM Code NLV59-GE Code Onset Dates Condition S tatus SNOMED Code Problem Factor V Leiden D68.51 Active 3070 38700 Problem Post-phlebitic syndrome I87.009 Active 95706700 Problem Anticoagulant long-term use Z79.01 Ac tive 566707122 Problem Essential hypertension I10 Active 88554862 Problem Other chronic pain G89.29 Active 8 2199261 Problem Venous stasis ulcers, left I83.029 Act ozzy 930573270 Problem 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 92905040 Problem Congenital single kidney Q60.0 Activ e 84991757 Problem Venous anomaly Q27.9 Active 61379 4003 Problem Pure hypercholesterolemia E78.00 Acti ve 286120406 Problem Chronic prescription opiate use Z79.899 Active 645624083 ALLERGIES Unknown Allergies SOCIAL HISTORY No smoking Hx information available PLAN OF CARE VITAL SIGNS MEDICATIONS Unknown Medications RESULTS No Results PROCEDURES No Known procedures IMMUNIZATIONS No Known Immunizations
--- OUTSIDE RECORDS SUMMARY | 2019-11-08 13:13 | XMS REPORT ---
Author Author Zana ORTIZ [facility] e[employer] Address Unknown Phone Unavailable Care Team Providers Care Computer Animator Name Role Phone AVANI ORTIZ CP Unavailable Allergies, Adverse Reactions, Alerts Substance Reaction Event Type Morphine Sulfate Info Not Available Drug Allergy Amoxicillin Info Not Available Drug Allergy Problems Problem Type Condition Code Onset Dates Condition Statu s Assessment Chronic prescription opiate use Z79.899 Active Problem Other chronic pain G89.29 Active Problem Hyperlipidemia, group D E78.3 Acti ve Problem Congenital single kidney Q60.0 Act ozzy Problem Anticoagulant long-term use Z79.01 Active Problem Chronic prescription opiate use Z79.899 Active Problem Factor V Leiden D68.51 Active Problem Essential hypertension I10 Activ e Problem Venous anomaly Q27.9 Active Problem Post-phlebitic syndrome I87.009 Acti ve Assessment Anticoagulant long-term use Z79.01 Active Assessment Factor V Leiden D68.51 Active Assessment Hyperlipidemia, group D E78.3 Acti ve Assessment Other chronic pain G89.29 Active Medications Medication Code System Code Instructions Start Date End Date Status Dosage Aspirin [facility] [place] [address]-35 325 MG Orally Once a day 1 tablet Fish Oil [facility] [place] [address]-32 1 gram September 25, 2013 ta ke 1 capsule by Oral route 3 times per day Lisinopril [facility] [place] 74179076171 20 MG TAKE ONE TABLET BY MOUTH DAILY Hydrocodone-Acetaminophen [facility] [place] [address]-19 10-325 MG Orally 4 times a day as needed for pain 1 tablet Pravastatin Sodium [facility] [place] [address]-28 40 MG Orally Once a day Oct 31, 2014 1 tablet Warfarin Sodium [facility] [place] [address]-22 10 MG Orally Once a day 1 tablet Gabapentin [facility] [place] [address]-33 800 MG Orally Three times a day July 30, 2014 1 tablet Procedures Procedure Coding System Code Date LIPID PANEL CPT-4 82891 Mar 11, 2015 COMPREHEN METABOLIC PANEL CPT-4 56642 Feb No Charge CPT-4 52696 Mar 11, 2015 PROTHROMBIN TIME CPT-4 32723 Mar 11, 2015 Office Visit, Est Pt., Level 3 CPT-4 08240 D ec 2014 Vital Signs Date/Time: Mar 11, 2015 Temperature 97.0 F Weight 283.0 lbs Height 76 in BMI 34.44 Index Blood Pressure Diastolic 84 mmHg Blood Pressure Systolic 126 mmHg Cardiac Monitoring Heart Rate 78 bpm Results Name Result Date Reference Range Unit Abnormali ty Flag INR (IN HOUSE) ----INR 3.2 [id number] 1.10 - 3.30 ----PREVIOUS INR 2.3 [id number] ----Lot # [id number] ----Exp date [id number] Summary Purpose eClinicalWorks Submission
--- OUTSIDE RECORDS SUMMARY | 2019-11-08 13:13 | XMS REPORT ---
Author Author Zana ORTIZ Organization [facility] Address [address] [place] [address] Care Team Providers Care Kit Assembler Name Role Phone DIANADAVIDAVANI Unavailable PROBLEMS Type Condition ICD9-CM Code NAW02-JX Code Onset Dates Condition S tatus SNOMED Code Problem Factor V Leiden D68.51 Active 3070 60527 Problem Post-phlebitic syndrome I87.009 Active 28744251 Problem Anticoagulant long-term use Z79.01 Ac tive 615633513 Problem Essential hypertension I10 Active 61871335 Problem Other chronic pain G89.29 Active 8 2312610 Problem Venous stasis ulcers, left I83.029 Act ozzy 096952219 Problem 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 18214966 Problem Congenital single kidney Q60.0 Activ e 78006791 Problem Venous anomaly Q27.9 Active 49083 4003 Problem Pure hypercholesterolemia E78.00 Acti ve 998054026 Problem Chronic prescription opiate use Z79.899 Active [id number] ALLERGIES No Information ENCOUNTERS Encounter Location Date Diagnosis [facility] [address] [facility] [id number] [address] [place] [address] Aug, Venous stasis ulcers, left I 83.029 [facility] [address] [facility] [id number] [address] [place] [address] July, Other chronic pain G89.29 [facility] [address] [facility] [id number] [address] [place] [address] July, Venous stasis ulcers, left I 83.029 and Snoring R06.83 [facility] [address] [facility] [id number] [address] [place] [address] Jun, Idiopathic chronic gout of m ultiple sites without tophus M1A.09X0 [facility] [address] [facility] [id number] [address] [place] [address] Jun, Acute renal insufficiency N2 8.9 [facility] [address] [facility] [id number] [address] [place] [address] Jun, Other chronic pain G89.29 [facility] [address] [facility] [id number] [address] [place] [address] Jun, Acute renal insufficiency N2 8.[address] [facility] [address] [id number] [id number] 16 Jun, 2017 Idiopathic chronic gout of multiple site s without tophus M1A.09X0 ; Essential hypertension I10 and Anticoagulant long-term use Z79.01 [facility] [address] [facility] [id number] [address] [place] [address] Jun, Anticoagulant long-term use Z79.01 and Essential hypertension I10 [facility] [address] [facility] [id number] [address] [place] [address] May, Idiopathic chronic gout of m ultiple sites without tophus M1A.09X0 [place] [address] [facility] [id number] [address] [place] [address] May, [facility] [address] [facility] [id number] [address] [place] [address] May, Essential hypertension I10 ; Pure hypercholesterolemia E78.00 ; Anticoagulant long-term use Z79.01 and Idiopathic chronic gout of multiple sites without tophus M1A.09X0 [facility] [address] [facility] [id number] [address] [place] [address] May, Other chronic pain G89.29 [facility] [address] [facility] [id number] [address] [place] [address] May, Anticoagulant long-term use Z79.01 [facility] [address] [facility] [id number] [address] [place] [address] May, Chronic prescription opiate use Z79.899 ; Other chronic pain G89.29 ; Essential hypertension I10 ; Factor V Leiden D68.51 ; Anticoagulant long-term use Z79.01 ; Pure hypercholesterolemia E78.00 ; Venous stasis ulcers, left I83.029 ; Idiopathic chronic gout of multiple sites without tophus M1A.09X0 and Cellulitis of left lower extremity L03.116 [facility] [address] [facility] [id number] [address] [place] [address] Apr, Other chronic pain G89.29 [place] [address] [id number] [address] [place] [address] Mar, Other chronic pain G89.29 [place] [address] [facility] [id number] [address] [place] [address] Mar, Factor V Leiden D68.51 ; Pur e hypercholesterolemia E78.00 and Other chronic pain G89.29 [place] [address] [facility] [id number] [address] [place] [address] Feb, Other chronic pain G89.29 [place] [address] [id number] [address] [place] [address] Jan, Idiopathic chronic gout of m ultiple sites without tophus M1A.09X0 [place] [address] [id number] [address] [place] [address] Jan, Other chronic pain G89.29 [place] [address] [id number] [address] [place] [address] Dec, Anticoagulant long-term use Z79.01 ; Factor V Leiden D68.51 and Other chronic pain G89.29 [place] [address] [id number] [address] [place] [address] Dec, Other chronic pain G89.29 [place] [address] [facility] [id number] [address] [place] [address] 13 Nov, 2016 Other chronic pain G89.29 [place] [address] [facility] [id number] [address] [place] [address] Oct, Other chronic pain G89.29 [facility] [address] [facility] [id number] [address] [place] [address] Sep, Anticoagulant long-term use Z79.01 [facility] [address] [facility] [id number] [address] [place] [address] Sep, Chronic prescription opiate use Z79.899 ; Anticoagulant long-term use Z79.01 ; Essential hypertension I10 ; Pure hypercholesterolemia E78.00 ; Factor V Leiden D68.51 ; Venous stasis ulcers, left I83.029 ; Other chronic pain G89.29 and Idiopathic chronic gout of multiple sites without tophus M1A.09X0 [place] [address] [facility] [id number] [address] [place] [address] Aug, Anticoagulant long-term use Z79.01 [place] [address] [facility] [id number] [address] [place] [address] Aug, Other chronic pain G89.29 [place] [address] [facility] [id number] [address] [place] [address] Aug, Essential hypertension I10 a nd Factor V Leiden D68.[id number] [place] [id number] Aug, Acute right ankle pain M25.571 and Tendo nitis of ankle M77.50 [place] [address] [facility] [id number] [address] [place] [address] Aug, [place] [address] [facility] [id number] [address] [place] [address] July, Other chronic pain G89.29 [place] [address] [facility] [id number] [address] [place] [address] Jun, Other chronic pain G89.29 [place] [address] [facility] [id number] [address] [place] [address] Jun, Other chronic pain G89.29 [place] [id number] [place] [address] Jun, Anticoagulant long-term use Z79.01 [place] [address] [facility] [id number] [address] [place] [address] May, Other chronic pain G89.29 [place] [address] [place] [id number] [address] [place] [address] May, Anticoagulant long-term use Z79.01 [place] [address] [place] [id number] [address] [place] [address] May, Other chronic pain G89.29 [place] [address] [address] Apr, Anticoagulant long-term use Z79.01 [place] [address] [place] [id number] [address] [place] [address] Apr, Other chronic pain G89.29 [place] [address] [place] [id number] [address] [place] [address] Apr, Anticoagulant long-term use Z79.01 and Pure hypercholesterolemia E78.00 [place] [address] [address] Mar, [place] [address] [place] [id number] [address] [place] [address] Mar, Anticoagulant long-term use Z79.01 [place] [address] [place] [id number] [address] [place] [address] Mar, Other chronic pain G89.29 [place] [address] [place] [id number] [address] [place] [address] Feb, Essential hypertension I10 ; Chronic prescription opiate use Z79.899 ; Other chronic pain G89.29 ; Screening Z13.9 ; Factor V Leiden D68.51 ; Anticoagulant long-term use Z79.01 ; Venous stasis dermatitis of left lower extremity I83.12 and Pure hypercholesterolemia E78.00 [place] [address] [facility] [id number] [address] [place] [address] 14 Jan, 2016 Anticoagulant long-term use Z79.01 [facility] [address] [facility] [id number] [address] [place] [address] 10 Jan, 2016 Anticoagulant long-term use Z79.01 [facility] [address] [facility] [id number] [address] [place] [address] 09 Jan, 2016 [facility] [address] [facility] [id number] [address] [place] [address] Jan, [facility] [address] [facility] [id number] [address] [place] [address] Dec, [facility] [address] [facility] [id number] [address] [place] [address] Nov, [facility] [address] [facility] [id number] [address] [place] [address] Oct, Anticoagulant long-term use Z79.01 [facility] [address] [facility] [id number] [address] [place] [address] Oct, [facility] [address] [address] Oct, Anticoagulant long-term use Z79.01 [facility] [address] [facility] [id number] [address] [place] [address] Sep, [facility] [address] [facility] [id number] [address] [place] [address] Aug, [facility] [address] [facility] [id number] [address] [place] [address] Aug, Chronic prescription opiate use Z79.899 ; Other chronic pain G89.29 ; Essential hypertension I10 and Pure hypercholesterolemia E78.0 [facility] [address] [facility] [id number] [address] [place] [address] July, Hyperlipidemia, group D E78. 3 and Anticoagulant long-term use Z79.01 [facility] [address] [place] [id number] [address] [place] [address] July, Hyperlipidemia, group D E78. 3 ; Essential hypertension I10 and Factor V Leiden D68.51 [facility] [address] [facility] [id number] [address] [place] [address] July, Essential hypertension I10 [facility] [address] [facility] [id number] [address] [place] [address] Jun, Hyperlipidemia, group D E78. 3 [facility] [address] [facility] [id number] [address] [place] [address] Jun, Factor V Leiden D68.51 [facility] [address] [facility] [id number] [address] [place] [address] May, Factor V Leiden D68.51 ; Hyp erlipidemia, group D E78.3 ; Essential hypertension I10 ; Other chronic pain G89.29 and Anticoagulant long-term use Z79.01 [facility] [address] [place] [address] May, Anticoagulant long-term use Z79.01 [facility] [address] [place] [id number] [address] [place] [address] May, Anticoagulant long-term use Z79.01 [facility] [address] [place] [id number] [address] [place] [address] May, [facility] [address] [facility] [id number] [address] [place] [address] Apr, [facility] [address] [facility] [id number] [address] [place] [address] Mar, [facility] [address] [place] [id number] [address] [place] [address] Mar, [facility] [address] [facility] [id number] [address] [place] [address] Feb, Anticoagulant long-term use Z79.01 [facility] [address] [place] [id number] [place] [address] 16 Feb, 2015 Chronic prescription opiate use Z79.899 ; Other chronic pain G89.29 ; Hyperlipidemia, group D E78.3 ; Factor V Leiden D68.51 and Anticoagulant long- term use Z79.01 [facility] [address] [address] 04 Feb, 2015 [facility] [address] [address] Jan, [place] [address] [address] Dec, Hyperlipidemia, unspecified E78.5 [place] [address] [address] Dec, Cellulitis of left lower ext remity L03.116 ; Venous stasis ulcers, left I83.029 and Factor V Leiden D68.51 [place] [address] [address] Dec, Hyperlipidemia 272.4 and Fac tor V Leiden 289.81 [place] [address] [address] Dec, [place] [address] [address] Nov, Factor V Leiden 289.81 [place] [address] [place] [id number] [address] [place] [address] Nov, [place] [address] [address] Nov, [place] [address] [address] Nov, [place] [address] [address] Oct, [place] [address] [address] Oct, Hyperlipidemia 272.4 ; Chron ic pain disorder 338.4 ; Venous stasis ulcer of left lower extremity 454.0 and Factor V Leiden 289.81 [facility] [address] [facility] [id number] [address] [place] [address] Sep, [facility] [address] [facility] [id number] [address] [place] [address] Sep, [facility] [address] [facility] [id number] [address] [place] [address] Sep, Hyperlipidemia 272.4 and Fac tor V Leiden 289.81 [facility] [address] [facility] [id number] [address] [place] [address] Aug, [facility] [address] [facility] [id number] [address] [place] [address] Aug, Factor V Leiden 289.81 [facility] [address] [facility] [id number] [address] [place] [address] July, [facility] [address] [facility] [id number] [address] [place] [address] July, Essential hypertension, fito gn 401.1 ; Factor V Leiden 289.81 ; Chronic pain disorder 338.4 ; Hyperlipidemia 272.4 and Venous stasis ulcer of left lower extremity 454.0 [facility] [address] [facility] [id number] [address] [place] [address] Jun, [facility] [address] [facility] [id number] [address] [place] [address] Jun, [facility] [address] [facility] [id number] [address] [place] [address] May, [facility] [address] [facility] [id number] [address] [place] [address] May, [facility] [address] [facility] [id number] [address] [place] [address] Apr, [facility] [address] [id number] [address] [place] [address], [place] [address] 20 Apr, 2014 [facility] [address] [id number] [address] [place] [address], [place] [address] 18 Apr, 2014 [facility] [address] [id number] [address] [place] [address], [place] [address] 18 Apr, 2014 [facility] [address] [id number] [address] [place] [address], [place] [address] 13 Apr, 2014 [facility] [address] [id number] [address] [place] [address], [place] [address] 13 Apr, 2014 [facility] [address] [id number] [address] [place] [address], [place] [address] 15 Mar, 2014 [facility] [address] [id number] [address] [place] [address], [place] [address] 15 Mar, 2014 [facility] [address] [id number] [address] [place] [address], [place] [address] Mar, [facility] [address] [id number] [address] [place] [address], [place] [address] Mar, [facility] [address] [id number] [address] [place] [address], [place] [address] Feb, [facility] [address] [id number] [address] [place] [address], [place] [address] 17 Feb, 2014 [facility] [address] [id number] [address] [place] [address], [place] [address] 16 Feb, 2014 [facility] [address] [id number] [address] [place] [address], [place] [address] 16 Feb, 2014 [facility] [address] [id number] [address] [place] [address], [place] [address] 24 Jan, 2014 [facility] [address] [id number] [address] [place] [address], [place] [address] Jan, [facility] [address] [id number] [address] [place] [address], [place] [address] Jan, [facility] [place] [facility] [address] [id number] [address] [place] [address], [place] [address] Jan, [facility] [place] [facility] [address] [id number] [address] [place] [address], [place] [address] Jan, [facility] [place] [facility] [address] [id number] [address] [place] [address], [place] [address] Jan, [facility] [place] [facility] [address] [id number] [address] [place] [address], [place] [address] Dec, [facility] [place] [facility] [address] [id number] [address] [place] [address], [place] [address] Dec, [facility] [place] [facility] [address] [id number] [address] [place] [address], [place] [address] Oct, [facility] [place] [facility] [address] [id number] [address] [place] [address], [place] [address] Oct, [facility] [place] [facility] [address] [id number] [address] [place] [address], [place] [address] Sep, [facility] [place] [facility] [address] [id number] [address] [place] [address], [place] [address] Sep, [facility] [place] [facility] [address] [id number] [address] [place] [address], [place] [address] Sep, [facility] [place] [facility] [address] [id number] [address] [place] [address], [place] [address] Sep, [facility] [place] [facility] [address] [id number] [address] [place] [address], [place] [address] Aug, [facility] [place] [facility] [address] [id number] [address] [place] [address], [place] [address] Aug, [facility] [place] [facility] [address] [id number] [address] [place] [address], [place] [address] July, [facility] [place] [facility] [address] [id number] [address] [place] [address], [place] [address] July, [facility] [place] [facility] [address] [id number] [address] [place] [address], [place] [address] Jun, [facility] [address] [id number] [address] [place] [address], [place] [address] Jun, [facility] [address] [id number] [address] [place] [address], [place] [address] May, [facility] [address] [id number] [address] [place] [address], [place] [address] May, [facility] [address] [id number] [address] [place] [address], [place] [address] Apr, [facility] [address] [id number] [address] [place] [address], [place] [address] Apr, [facility] [address] [id number] [address] [place] [address], [place] [address] Mar, [facility] [address] [id number] [address] [place] [address], [place] [address] Mar, [facility] [address] [id number] [address] [place] [address], [place] [address] Jan, [facility] [address] [id number] [address] [place] [address], [place] [address] Jan, [facility] [address] [id number] [address] [place] [address], [place] [address] Jan, [facility] [address] [id number] [address] [place] [address], [place] [address] Jan, [facility] [address] [id number] [address] [place] [address], [place] [address] Jan, [facility] [address] [id number] [address] [place] [address], [place] [address] Dec, [facility] [address] [id number] [address] [place] [address], [place] [address] Dec, [facility] [address] [id number] [address] [place] [address], [place] [address] Dec, [facility] [address] [id number] [address] [place] [address] Nov, [facility] [address] [id number] [address] [place] [address] Nov, [facility] [address] [id number] [address] [place] [address] Sep, [facility] [address] [id number] [address] [place] [address] Sep, [facility] [address] [id number] [address] [place] [address] Aug, [facility] [address] [id number] [address] [place] [address] Aug, [facility] [address] [id number] [place] [id number] July, [facility] [address] [id number] [place] [id number] Jun, [facility] [address] [id number] [place] [id number] Apr, [facility] [address] [id number] [place] [id number] Mar, [facility] [address] [facility] [id number] [address] [place] [address] Mar, [facility] [address] [id number] [place] [id number] Mar, [facility] [address] [id number] [address] [place] [address] Mar, [facility] [address] [id number] [place] [id number] Feb, [facility] [address] [facility] [id number] [address] [place] [address] Feb, [facility] [address] [id number] [place] [id number] Feb, [facility] [address] [id number] [address] [place] [address] Feb, [facility] [address] [id number] [place] [id number] Oct, [facility] [address] [id number] [place] [id number] Oct, [facility] [address] [id number] [place] [id number] July, [facility] [address] [id number] [place] [id number] July, [facility] [address] [id number] [place] [id number] Jun, [facility] [address] [id number] [place] [id number] Jun, [facility] [address] [id number] [place] [id number] Jun, [facility] [address] [id number] [place] [id number] Mar, [facility] [address] [id number] [place] [id number] Mar, [facility] [address] [id number] [address] [place] [address] Feb, [facility] [address] [facility] [id number] [address] [place] [address] [id number] Feb, [facility] [address] [facility] [id number] [address] [place] [phone] Jan, [facility] [address] [facility] [id number] [address] [place] [phone] Jan, [facility] [address] [facility] [id number] [address] [place] [id number] Jan, [facility] [address] [facility] [id number] [address] [place] [phone] Jan, [facility] [address] [facility] [id number] [address] [place] [phone] Jan, [facility] [address] [facility] [id number] [address] [address] 14 Aug, 2010 [facility] [address] [facility] [id number] [address] [place] [id number] 17 Apr, 2010 IMMUNIZATIONS No Known Immunizations SOCIAL HISTORY Never Assessed REASON FOR VISIT Controlled Medication Refill PLAN OF CARE VITAL SIGNS MEDICATIONS Medication Instructions Dosage Frequency Start Date End Date Duration S reaganus Warfarin Sodium 10 mg Orally Once a day 1 tablet 24h 90 days Active Hydrocodone-Acetaminophen 10-325 MG Orally 4 times a day as needed for pain 1 tablet Mar, 28 days Active Pravastatin Sodium 40 mg Orally Once a day 1 tablet 24h 90 days Active RESULTS No Results PROCEDURES No [...]
--- OUTSIDE RECORDS SUMMARY | 2019-11-08 13:13 | XMS REPORT ---
Author Author Zana ORTIZ [facility] eClinicalWorks Address Unknown Phone Unavailable Care Team Providers Care Product Safety Specialist Name Role Phone AVANI ORTIZ CP Unavailable Allergies No Known Allergies Problems Problem Type Condition Code Onset Dates Condition Statu s Assessment Hyperlipidemia, group D E78.3 Acti ve Problem Other chronic pain G89.29 Active Problem Hyperlipidemia, group D E78.3 Acti ve Problem Congenital single kidney Q60.0 Act ozzy Problem Anticoagulant long-term use Z79.01 Active Problem Chronic prescription opiate use Z79.899 Active Problem Factor V Leiden D68.51 Active Problem Essential hypertension I10 Activ e Problem Venous anomaly Q27.9 Active Problem Post-phlebitic syndrome I87.009 Acti ve Medications Medication Code System Code Instructions Start Date End Date Status Dosage Hydrocodone-Acetaminophen [facility] [address]-31 10-325 MG Orally 4 times a day as needed for pain 1 tablet Pravastatin Sodium [facility] [address]-40 40 mg Orally Once a day Oct 31, 2014 1 tablet Results No Known Results Summary Purpose eClinicalWorks Submission
--- OUTSIDE RECORDS SUMMARY | 2019-11-08 13:13 | XMS REPORT ---
Author Author Zana ORTIZ [facility] eClinicalWorks Address Unknown Phone Unavailable Care Team Providers Care Advisory Internship Name Role Phone AVANI ORTIZ CP Unavailable Allergies No Known Allergies Problems Problem Type Condition Code Onset Dates Condition Statu s Assessment Anticoagulant long-term use Z79.01 Active Problem Essential hypertension I10 Activ e Problem Other chronic pain G89.29 Active Problem Chronic prescription opiate use Z79.899 Active Problem Congenital single kidney Q60.0 Act ozzy Problem Pure hypercholesterolemia E78.0 Ac tive Problem Post-phlebitic syndrome I87.009 Acti ve Problem Factor V Leiden D68.51 Active Problem Anticoagulant long-term use Z79.01 Active Problem Venous anomaly Q27.9 Active Medications No Known Medications Procedures Procedure Coding System Code Date PROTHROMBIN TIME CPT-4 24907 Feb 04, 2016 Results No Known Results Summary Purpose eClinicalWorks Submission
--- OUTSIDE RECORDS SUMMARY | 2019-11-08 13:13 | XMS REPORT ---
Author Author Zana ORTIZ [facility] eClinicalWorks Address Unknown Phone Unavailable Care Team Providers Care Memory Care Director Name Role Phone AVANI ORTIZ Unavailable Allergies No Known Allergies Problems Problem Type Condition Code Onset Dates Condition Statu s Problem Essential hypertension I10 Activ e Problem Other chronic pain G89.29 Active Problem Chronic prescription opiate use Z79.899 Active Problem Congenital single kidney Q60.0 Act ozzy Problem Pure hypercholesterolemia E78.0 Ac tive Problem Post-phlebitic syndrome I87.009 Acti ve Problem Factor V Leiden D68.51 Active Problem Anticoagulant long-term use Z79.01 Active Problem Venous anomaly Q27.9 Active Medications Medication Code System Code Instructions Start Date End Date Status Dosage Hydrocodone-Acetaminophen [facility] [address]-65 10-325 MG Orally 4 times a day as needed for pain 1 tablet Results No Known Results Summary Purpose eClinicalWorks Submission
--- OUTSIDE RECORDS SUMMARY | 2019-11-08 13:13 | XMS REPORT ---
Author Author Zana ORTIZ [facility] Address [address] [place] [address] Care Team Providers Care Scientist/Engineer Name Role Phone DIANADAVIDAVANI Unavailable PROBLEMS Type Condition ICD9-CM Code [id number] Code Onset Dates Condition S tatus SNOMED Code Problem Factor V Leiden D68.51 Active 3070 79293 Problem Post-phlebitic syndrome I87.009 Active 89029921 Problem Anticoagulant long-term use Z79.01 Ac tive 899175719 Problem Essential hypertension I10 Active 88301274 Problem Other chronic pain G89.29 Active 8 7442280 Problem Venous stasis ulcers, left I83.029 Act ozzy 210450688 Problem 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 84158529 Problem Congenital single kidney Q60.0 Activ e 68903542 Problem Venous anomaly Q27.9 Active 22547 4003 Problem Pure hypercholesterolemia E78.00 Acti ve 314143514 Problem Chronic prescription opiate use Z79.899 Active 008765833 ALLERGIES No Information ENCOUNTERS Encounter Location Date Diagnosis [facility] [address] [facility] [id number] [address] [place] [phone] Sep, Other chronic pain G89.29 [facility] [address] [facility] [id number] [address] [place] [phone] 18 Aug, 2017 Other chronic pain G89.29 [facility] [address] [facility] [id number] [address] [place] [phone] Aug, Venous stasis ulcers, left I 83.029 [facility] [address] [facility] [id number] [address] [place] [phone] July, Other chronic pain G89.29 [facility] [address] [facility] [id number] [address] [place] [phone] July, Venous stasis ulcers, left I 83.029 and Snoring R06.83 [place] [address] [facility] [id number] [address] [place] [phone] Jun, Idiopathic chronic gout of ultiple sites without tophus M1A.09X0 [place] [address] [facility] [id number] [address] [place] [phone] Jun, Acute renal insufficiency N2 8.9 [place] [address] [facility] [id number] [address] [place] [phone] Jun, Other chronic pain G89.29 [place] [address] [facility] [id number] [address] [place] [phone] Jun, Acute renal insufficiency N2 8.[id number] [place] [id number] Jun, Idiopathic chronic gout of multiple site s without tophus M1A.09X0 ; Essential hypertension I10 and Anticoagulant long-term use Z79.01 [place] [address] [facility] [id number] [address] [place] [address] Jun, Anticoagulant long-term use Z79.01 and Essential hypertension I10 [place] [address] [facility] [id number] [address] [place] [phone] May, Idiopathic chronic gout of ultiple sites without tophus M1A.09X0 [place] [address] [facility] [id number] [address] [place] [phone] May, [place] [address] [facility] [id number] [address] [place] [phone] May, Essential hypertension I10 ; Pure hypercholesterolemia E78.00 ; Anticoagulant long-term use Z79.01 and Idiopathic chronic gout of multiple sites without tophus M1A.09X0 [place] [address] [facility] [id number] [address] [place] [phone] May, Other chronic pain G89.29 [place] [address] [facility] [id number] [address] [place] [phone] May, Anticoagulant long-term use Z79.01 [place] [address] [facility] [id number] [address] [place] [address] May, Chronic prescription opiate use Z79.899 ; Other chronic pain G89.29 ; Essential hypertension I10 ; Factor V Leiden D68.51 ; Anticoagulant long-term use Z79.01 ; Pure hypercholesterolemia E78.00 ; Venous stasis ulcers, left I83.029 ; Idiopathic chronic gout of multiple sites without tophus M1A.09X0 and Cellulitis of left lower extremity L03.116 [place] [address] [facility] [id number] [address] [place] [phone] Apr, Other chronic pain G89.29 [place] [address] [place] [id number] [address] [place] [phone] Mar, Other chronic pain G89.29 [place] [address] [place] [id number] [address] [place] [phone] Mar, Factor V Leiden D68.51 ; Pur e hypercholesterolemia E78.00 and Other chronic pain G89.29 [place] [address] [place] [id number] [address] [place] [phone] Feb, Other chronic pain G89.29 [place] [address] [place] [id number] [address] [place] [phone] Jan, Idiopathic chronic gout of m ultiple sites without tophus M1A.09X0 [place] [address] [facility] [id number] [address] [place] [address] Jan, Other chronic pain G89.29 [place] [address] [facility] [id number] [address] [place] [phone] Dec, Anticoagulant long-term use Z79.01 ; Factor V Leiden D68.51 and Other chronic pain G89.29 [place] [address] [place] [id number] [address] [place] [address] Dec, Other chronic pain G89.29 [facility] [address] [facility] [id number] [address] [place] [address] Nov, Other chronic pain G89.29 [facility] [address] [facility] [id number] [address] [place] [address] 16 Oct, 2016 Other chronic pain G89.29 [place] [address] [facility] [id number] [address] [place] [address] Sep, Anticoagulant long-term use Z79.01 [facility] [address] [facility] [id number] [address] [place] [address] Sep, Chronic prescription opiate use Z79.899 ; Anticoagulant long-term use Z79.01 ; Essential hypertension I10 ; Pure hypercholesterolemia E78.00 ; Factor V Leiden D68.51 ; Venous stasis ulcers, left I83.029 ; Other chronic pain G89.29 and Idiopathic chronic gout of multiple sites without tophus M1A.09X0 [place] [address] [facility] [id number] [address] [place] [address] Aug, Anticoagulant long-term use Z79.01 [place] [address] [facility] [id number] [address] [place] [phone] Aug, Other chronic pain G89.29 [place] [address] [facility] [id number] [address] [place] [phone] Aug, Essential hypertension I10 a nd Factor V Leiden D68.[address] [place] [id number] [place] [id number] 15 Aug, 2016 Acute right ankle pain M25.571 and Tendo nitis of ankle M77.50 [place] [address] [facility] [id number] [address] [place] [phone] Aug, [place] [address] [facility] [id number] [address] [place] [address] July, Other chronic pain G89.29 [place] [address] [facility] [id number] [address] [place] [phone] Jun, Other chronic pain G89.29 [facility] [address] [id number] [address] [place] [phone] Jun, Other chronic pain G89.29 [facility] [address] [facility] [id number] [address] [place] [phone] Jun, Anticoagulant long-term use Z79.01 [facility] [address] [facility] [id number] [address] [place] [phone] May, Other chronic pain G89.29 [facility] [address] [facility] [id number] [address] [place] [address] May, Anticoagulant long-term use Z79.01 [facility] [address] [facility] [id number] [address] [place] [address] May, Other chronic pain G89.29 [facility] [address] [facility] [id number] [address] [place] [address] Apr, Anticoagulant long-term use Z79.01 [facility] [address] [facility] [id number] [address] [place] [address] Apr, Other chronic pain G89.29 [facility] [address] [facility] [id number] [address] [place] [address] Apr, Anticoagulant long-term use Z79.01 and Pure hypercholesterolemia E78.00 [facility] [address] [facility] [id number] [address] [place] [phone] Mar, [facility] [address] [facility] [id number] [address] [place] [phone] Mar, Anticoagulant long-term use Z79.01 [facility] [address] [facility] [id number] [address] [place] [address] Mar, Other chronic pain G89.29 [facility] [address] [facility] [id number] [address] [place] [phone] Feb, Essential hypertension I10 ; Chronic prescription opiate use Z79.899 ; Other chronic pain G89.29 ; Screening Z13.9 ; Factor V Leiden D68.51 ; Anticoagulant long-term use Z79.01 ; Venous stasis dermatitis of left lower extremity I83.12 and Pure hypercholesterolemia E78.00 [facility] [address] [facility] [id number] [address] [place] [phone] 14 Jan, 2016 Anticoagulant long-term use Z79.01 [facility] [address] [id number] [address] [place] [phone] Jan, Anticoagulant long-term use Z79.01 [facility] [address] [facility] [id number] [address] [place] [phone] Jan, [facility] [address] [facility] [id number] [address] [place] [phone] Jan, [facility] [address] [facility] [id number] [address] [place] [phone] Dec, [facility] [address] [facility] [id number] [address] [place] [phone] Nov, [facility] [address] [facility] [id number] [address] [place] [address] Oct, Anticoagulant long-term use Z79.01 [facility] [address] [facility] [id number] [address] [place] [phone] Oct, [facility] [address] [facility] [id number] [address] [place] [phone] Oct, Anticoagulant long-term use Z79.01 [facility] [address] [id number] [address] [place] [phone] Sep, [facility] [address] [facility] [id number] [address] [place] [phone] Aug, [facility] [address] [facility] [id number] [address] [place] [phone] Aug, Chronic prescription opiate use Z79.899 ; Other chronic pain G89.29 ; Essential hypertension I10 and Pure hypercholesterolemia E78.0 [facility] [address] [facility] [id number] [address] [place] [phone] July, Hyperlipidemia, group D E78. 3 and Anticoagulant long-term use Z79.01 [facility] [address] [facility] [id number] [address] [place] [phone] July, Hyperlipidemia, group D E78. 3 ; Essential hypertension I10 and Factor V Leiden D68.51 [facility] [address] [facility] [id number] [address] [place] [phone] July, Essential hypertension I10 [place] [address] [facility] [id number] [address] [place] [phone] Jun, Hyperlipidemia, group D E78. 3 [place] [address] [facility] [id number] [address] [place] [phone] Jun, Factor V Leiden D68.51 [facility] [address] [facility] [id number] [address] [place] [phone] May, Factor V Leiden D68.51 ; Hyp erlipidemia, group D E78.3 ; Essential hypertension I10 ; Other chronic pain G89.29 and Anticoagulant long-term use Z79.01 [place] [id number] [facility] [id number] [address] [place] [phone] May, Anticoagulant long-term use Z79.01 [facility] [address] [facility] [id number] [address] [place] [phone] May, Anticoagulant long-term use Z79.01 [facility] [address] [facility] [id number] [address] [place] [phone] May, [place] [address] [facility] [id number] [address] [place] [phone] Apr, [facility] [address] [facility] [id number] [address] [place] [phone] Mar, [facility] [address] [facility] [id number] [address] [place] [phone] Mar, [facility] [address] [facility] [id number] [address] [place] [phone] Feb, Anticoagulant long-term use Z79.01 [facility] [address] [facility] [id number] [address] [place] [address] 16 Feb, 2015 Chronic prescription opiate use Z79.899 ; Other chronic pain G89.29 ; Hyperlipidemia, group D E78.3 ; Factor V Leiden D68.51 and Anticoagulant long- term use Z79.01 [facility] [address] [facility] [id number] [address] [place] [phone] Feb, [facility] [address] [place] [id number] [place] [phone] Jan, [facility] [address] [address] Dec, Hyperlipidemia, unspecified E78.5 [facility] [address] [facility] [id number] [address] [place] [phone] Dec, Cellulitis of left lower ext remity L03.116 ; Venous stasis ulcers, left I83.029 and Factor V Leiden D68.51 [facility] [address] [place] [id number] [address] [place] [address] Dec, Hyperlipidemia 272.4 and Fac tor V Leiden 289.81 [facility] [address] [facility] [id number] [address] [place] [phone] Dec, [facility] [address] [facility] [id number] [address] [place] [address] Nov, Factor V Leiden 289.81 [facility] [address] [place] [id number] [address] [place] [phone] Nov, [facility] [address] [place] [id number] [address] [place] [phone] Nov, [facility] [address] [place] [id number] [address] [place] [phone] Nov, [facility] [address] [facility] [id number] [address] [place] [phone] Oct, [facility] [address] [facility] [id number] [address] [place] [phone] Oct, Hyperlipidemia 272.4 ; Chron ic pain disorder 338.4 ; Venous stasis ulcer of left lower extremity 454.0 and Factor V Leiden 289.81 [facility] [address] [place] [id number] [place] [phone] Sep, [facility] [address] [place] [id number] [place] [phone] Sep, [facility] [address] [place] [id number] [place] [phone] Sep, Hyperlipidemia 272.4 and Fac tor V Leiden 289.81 [facility] [address] [place] [id number] [address] [place] [phone] Aug, [facility] [address] [place] [id number] [place] [phone] Aug, Factor V Leiden 289.81 [facility] [address] [place] [id number] [address] [place] [phone] July, [facility] [address] [place] [id number] [address] [place] [phone] July, Essential hypertension, fito gn 401.1 ; Factor V Leiden 289.81 ; Chronic pain disorder 338.4 ; Hyperlipidemia 272.4 and Venous stasis ulcer of left lower extremity 454.0 [facility] [address] [phone] Jun, [facility] [address] [place] [id number] [place] [phone] Jun, [facility] [address] [phone] May, [facility] [address] [id number] [address] [place] [address], [place] [address] May, [facility] [address] [id number] [address] [place] [address], [place] [id number] 20 Apr, 2014 [facility] [address] [id number] [address] [place] [address], [place] [address] Apr, [facility] [address] [id number] [address] [place] [address], [place] [address] Apr, [facility] [address] [id number] [address] [place] [address], [place] [address] Apr, [facility] [address] [id number] [address] [place] [address], [place] [address] Apr, [facility] [address] [id number] [address] [place] [address], [place] [address] Apr, [facility] [address] [id number] [address] [place] [address], [place] [address] Mar, [facility] [address] [id number] [address] [place] [address], [place] [address] Mar, [facility] [address] [id number] [address] [place] [address], [place] [address] Mar, [facility] [address] [id number] [address] [place] [address], [place] [address] Mar, [facility] [address] [id number] [address] [place] [address], [place] [address] Feb, [facility] [address] [id number] [address] [place] [address], [place] [address] Feb, [facility] [address] [id number] [address] [place] [address], [place] [address] 16 Feb, 2014 [facility] [address] [id number] [address] [place] [address], [place] [address] 16 Feb, 2014 [facility] [address] [id number] [address] [place] [address], [place] [address] Jan, [facility] [address] [id number] [address] [place] [address], [place] [address] Jan, [facility] [address] [id number] [address] [place] [address], [place] [address] Jan, [facility] [address] [id number] [address] [place] [address], [place] [address] Jan, [facility] [address] [id number] [address] [place] [address], [place] [address] Jan, [facility] [address] [id number] [address] [place] [address], [place] [address] Jan, [facility] [address] [id number] [address] [place] [address], [place] [address] Dec, [facility] [address] [id number] [address] [place] [address], [place] [address] Dec, [facility] [address] [id number] [address] [place] [address], [place] [address] Oct, [facility] [address] [id number] [address] [place] [address], [place] [address] Oct, [facility] [address] [id number] [address] [place] [address], [place] [address] Sep, [facility] [address] [id number] [address] [place] [address], [place] [address] Sep, [facility] [address] [id number] [address] [place] [address], [place] [address] Sep, [facility] [address] [id number] [address] [place] [address], [place] [address] Sep, [facility] [address] [id number] [address] [place] [address], [place] [address] Aug, [facility] [address] [id number] [address] [place] [address], [place] [address] Aug, [facility] [address] [id number] [address] [place] [address], [place] [address] July, [facility] [address] [id number] [address] [place] [address], [place] [address] July, [facility] [address] [id number] [address] [place] [address], [place] [address] Jun, [facility] [address] [id number] [address] [place] [address], [place] [address] Jun, [facility] [address] [id number] [address] [place] [address], [place] [address] May, [facility] [address] [id number] [address] [place] [address], [place] [address] May, [facility] [address] [id number] [address] [place] [address], [place] [address] Apr, [facility] [address] [id number] [address] [place] [address], [place] [address] Apr, [facility] [address] [id number] [address] [place] [address], [place] [address] Mar, [facility] [address] [id number] [address] [place] [address], [place] [address] Mar, [facility] [address] [id number] [address] [place] [address], [place] [address] Jan, [facility] [address] [id number] [address] [place] [address], [place] [address] Jan, [facility] [address] [id number] [address] [place] [address], [place] [address] Jan, [facility] [address] [id number] [address] [place] [address], [place] [address] Jan, [facility] [address] [id number] [address] [place] [address], [place] [address] Jan, [facility] [address] [id number] [address] [place] [id number] Dec, [facility] [address] [id number] [address] [place] [address], [place] [address] Dec, [facility] [address] [id number] [address] [place] [id number] Dec, [facility] [address] [id number] [address] [place] [address], [place] [address] Nov, [facility] [address] [id number] [address] [place] [id number] Nov, [facility] [address] [id number] [address] [place] [address], [place] [address] Sep, [facility] [address] [id number] [address] [place] [address], [place] [address] Sep, [facility] [address] [id number] [address] [place] [id number] Aug, [facility] [address] [id number] [address] [place] [address], [place] [address] Aug, [facility] [address] [id number] [place] [id number] July, [facility] [address] [id number] [place] [id number] Jun, [facility] [address] [id number] [place] [id number] Apr, [facility] [address] [id number] [place] [id number] Mar, [facility] [address] [id number] [address] [place] [address], [place] [address] Mar, [facility] [place] [address] [id number] [place] [id number] Mar, [facility] [address] [id number] [address] [place] [address], [place] [address] Mar, [facility] [address] [id number] [place] [id number] Feb, [facility] [address] [id number] [address] [place] [id number] Feb, [facility] [address] [id number] [place] [id number] Feb, [facility] [address] [facility] [id number] [address] [place] [phone] Feb, [facility] [address] [id number] [place] [id number] Oct, [facility] [address] [id number] [place] [id number] Oct, [facility] [address] [id number] [place] [id number] July, [facility] [address] [id number] [place] [id number] July, [facility] [address] [id number] [place] [id number] Jun, [facility] [address] [id number] [place] [id number] Jun, [facility] [address] [id number] [place] [id number] Jun, [facility] [address] [id number] [place] [id number] Mar, [facility] [address] [id number] [place] [id number] Mar, [facility] [address] [facility] [id number] [address] [place] [phone] Feb, [facility] [address] [facility] [id number] [address] [place] [phone] Feb, [facility] [address] [facility] [id number] [address] [place] [phone] Jan, [facility] [address] [facility] [id number] [address] [place] [phone] Jan, [facility] [address] [facility] [id number] [address] [place] [phone] Jan, [facility] [address] [facility] [id number] [address] [place] [phone] Jan, [facility] [address] [facility] [id number] [address] [place] [phone] Jan, [facility] [address] [facility] [id number] [address] [place] [phone] Aug, [facility] [address] [facility] [id number] [address] [place] [phone] Apr, IMMUNIZATIONS No Known Immunizations SOCIAL HISTORY Never Assessed REASON FOR VISIT Lab orders PLAN OF CARE VITAL SIGNS MEDICATIONS Unknown [...]
--- OUTSIDE RECORDS SUMMARY | 2019-11-08 13:13 | XMS REPORT ---
Author Author Zana ORTIZ [facility] Address [address] [place] [address] Care Team Providers Care Counterintelligence/Humint Specialist Name Role Phone DIANADAVIDAVANI Unavailable PROBLEMS Type Condition ICD9-CM Code NAM22-RO Code Onset Dates Condition S tatus SNOMED Code Problem Factor V Leiden D68.51 Active 3070 84097 Problem Post-phlebitic syndrome I87.009 Active 56152212 Problem Anticoagulant long-term use Z79.01 Ac tive 886797820 Problem Essential hypertension I10 Active 36992179 Problem Other chronic pain G89.29 Active 8 3186725 Problem Venous stasis ulcers, left I83.029 Act ozzy 050411414 Problem 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 16300343 Problem Congenital single kidney Q60.0 Activ e 90490147 Problem Venous anomaly Q27.9 Active 92829 4003 Problem Pure hypercholesterolemia E78.00 Acti ve 045438980 Problem Chronic prescription opiate use Z79.899 Active 429594690 ALLERGIES No Information ENCOUNTERS Encounter Location Date Diagnosis [place] [id number] [facility] [id number] [address] [place] [address] 18 Aug, 2017 Other chronic pain G89.29 [facility] [address] [facility] [id number] [address] [place] [address] Aug, Venous stasis ulcers, left I 83.029 [facility] [address] [facility] [id number] [address] [place] [address] July, Other chronic pain G89.29 [facility] [address] [facility] [id number] [address] [place] [address] July, Venous stasis ulcers, left I 83.029 and Snoring R06.83 [place] [address] [facility] [id number] [address] [place] [address] Jun, Idiopathic chronic gout of m ultiple sites without tophus M1A.09X0 [facility] [address] [facility] [id number] [address] [place] [address] Jun, Acute renal insufficiency N2 8.9 [facility] [address] [facility] [id number] [address] [place] [address] Jun, Other chronic pain G89.29 [place] [address] [facility] [id number] [address] [place] [address] Jun, Acute renal insufficiency N2 8.[id number] [place] [id number] Jun, Idiopathic chronic gout of multiple site s without tophus M1A.09X0 ; Essential hypertension I10 and Anticoagulant long-term use Z79.01 [place] [address] [facility] [id number] [address] [place] [address] Jun, Anticoagulant long-term use Z79.01 and Essential hypertension I10 [place] [address] [facility] [id number] [address] [place] [address] May, Idiopathic chronic gout of ultiple sites without tophus M1A.09X0 [place] [address] [facility] [id number] [address] [place] [address] May, [place] [address] [facility] [id number] [address] [place] [address] May, Essential hypertension I10 ; Pure hypercholesterolemia E78.00 ; Anticoagulant long-term use Z79.01 and Idiopathic chronic gout of multiple sites without tophus M1A.09X0 [place] [address] [facility] [id number] [address] [place] [address] May, Other chronic pain G89.29 [place] [address] [facility] [id number] [address] [place] [address] May, Anticoagulant long-term use Z79.01 [place] [address] [id number] [address] [place] [address] May, Chronic prescription opiate use Z79.899 ; Other chronic pain G89.29 ; Essential hypertension I10 ; Factor V Leiden D68.51 ; Anticoagulant long-term use Z79.01 ; Pure hypercholesterolemia E78.00 ; Venous stasis ulcers, left I83.029 ; Idiopathic chronic gout of multiple sites without tophus M1A.09X0 and Cellulitis of left lower extremity L03.116 [place] [address] [facility] [id number] [address] [place] [address] Apr, Other chronic pain G89.29 [place] [address] [facility] [id number] [address] [place] [address] Mar, Other chronic pain G89.29 [place] [address] [facility] [id number] [address] [place] [address] Mar, Factor V Leiden D68.51 ; Pur e hypercholesterolemia E78.00 and Other chronic pain G89.29 [place] [address] [facility] [id number] [address] [place] [address] Feb, Other chronic pain G89.29 [place] [address] [facility] [id number] [address] [place] [address] Jan, Idiopathic chronic gout of m ultiple sites without tophus M1A.09X0 [place] [address] [facility] [id number] [address] [place] [address] Jan, Other chronic pain G89.29 [place] [address] [facility] [id number] [address] [place] [address] Dec, Anticoagulant long-term use Z79.01 ; Factor V Leiden D68.51 and Other chronic pain G89.29 [place] [address] [facility] [id number] [address] [place] [address] Dec, Other chronic pain G89.29 [place] [address] [facility] [id number] [address] [place] [address] Nov, Other chronic pain G89.29 [facility] [address] [facility] [id number] [address] [place] [address] Oct, Other chronic pain G89.29 [facility] [address] [facility] [id number] [address] [place] [address] Sep, Anticoagulant long-term use Z79.01 [facility] [address] [facility] [id number] [address] [place] [address] Sep, Chronic prescription opiate use Z79.899 ; Anticoagulant long-term use Z79.01 ; Essential hypertension I10 ; Pure hypercholesterolemia E78.00 ; Factor V Leiden D68.51 ; Venous stasis ulcers, left I83.029 ; Other chronic pain G89.29 and Idiopathic chronic gout of multiple sites without tophus M1A.09X0 [place] [address] [facility] [id number] [address] [place] [address] Aug, Anticoagulant long-term use Z79.01 [place] [address] [facility] [id number] [address] [place] [address] Aug, Other chronic pain G89.29 [place] [address] [facility] [id number] [address] [place] [address] Aug, Essential hypertension I10 a nd Factor V Leiden D68.[id number] [place] [address] [id number] Aug, Acute right ankle pain M25.571 and Tendo nitis of ankle M77.50 [place] [address] [facility] [id number] [address] [place] [address] Aug, [place] [address] [facility] [id number] [address] [place] [address] July, Other chronic pain G89.29 [place] [address] [facility] [id number] [address] [place] [address] Jun, Other chronic pain G89.29 [place] [address] [facility] [id number] [address] [place] [address] Jun, Other chronic pain G89.29 [facility] [address] [facility] [id number] [address] [place], [place] [address] Jun, Anticoagulant long-term use Z79.01 [facility] [address] [facility] [id number] [address] [place] [address] May, Other chronic pain G89.29 [facility] [address] [facility] [id number] [address] [place] [address] May, Anticoagulant long-term use Z79.01 [place] [address] [facility] [id number] [address] [place] [address] May, Other chronic pain G89.29 [place] [address] [place] [id number] [address] [place] [address] Apr, Anticoagulant long-term use Z79.01 [place] [address] [facility] [id number] [address] [place] [address] Apr, Other chronic pain G89.29 [facility] [address] [facility] [id number] [address] [place] [address] Apr, Anticoagulant long-term use Z79.01 and Pure hypercholesterolemia E78.00 [facility] [address] [facility] [id number] [address] [place] [address] Mar, [facility] [address] [facility] [id number] [address] [place] [address] Mar, Anticoagulant long-term use Z79.01 [facility] [address] [facility] [id number] [address] [place] [address] Mar, Other chronic pain G89.29 [facility] [address] [facility] [id number] [address] [place] [address] Feb, Essential hypertension I10 ; Chronic prescription opiate use Z79.899 ; Other chronic pain G89.29 ; Screening Z13.9 ; Factor V Leiden D68.51 ; Anticoagulant long-term use Z79.01 ; Venous stasis dermatitis of left lower extremity I83.12 and Pure hypercholesterolemia E78.00 [facility] [address] [facility] [id number] [address] [place] [address] 14 Jan, 2016 Anticoagulant long-term use Z79.01 [facility] [address] [id number] [address] [place] [address] 10 Jan, 2016 Anticoagulant long-term use Z79.01 [facility] [address] [id number] [address] [place] [address] 09 Jan, 2016 [facility] [address] [id number] [address] [place] [address] Jan, [facility] [address] [facility] [id number] [address] [place] [address] Dec, [facility] [address] [facility] [id number] [address] [place] [address] Nov, [facility] [address] [id number] [address] [place] [address] Oct, Anticoagulant long-term use Z79.01 [facility] [address] [facility] [id number] [address] [place] [address] Oct, [facility] [address] [facility] [id number] [address] [place] [address] Oct, Anticoagulant long-term use Z79.01 [facility] [address] [id number] [address] [place] [address] Sep, [facility] [address] [facility] [id number] [address] [place] [address] Aug, [facility] [address] [facility] [id number] [address] [place] [address] Aug, Chronic prescription opiate use Z79.899 ; Other chronic pain G89.29 ; Essential hypertension I10 and Pure hypercholesterolemia E78.0 [facility] [address] [id number] [address] [place] [address] July, Hyperlipidemia, group D E78. 3 and Anticoagulant long-term use Z79.01 [facility] [address] [facility] [id number] [address] [place] [address] July, Hyperlipidemia, group D E78. 3 ; Essential hypertension I10 and Factor V Leiden D68.51 [facility] [address] [facility] [id number] [address] [place] [address] July, Essential hypertension I10 [place] [address] [facility] [id number] [address] [place] [address] Jun, Hyperlipidemia, group D E78. 3 [place] [address] [facility] [id number] [address] [place] [address] Jun, Factor V Leiden D68.51 [place] [address] [facility] [id number] [address] [place] [address] May, Factor V Leiden D68.51 ; Hyp erlipidemia, group D E78.3 ; Essential hypertension I10 ; Other chronic pain G89.29 and Anticoagulant long-term use Z79.01 [place] [address] [facility] [id number] [address] [place] [address] May, Anticoagulant long-term use Z79.01 [place] [address] [facility] [id number] [address] [place] [address] May, Anticoagulant long-term use Z79.01 [facility] [address] [facility] [id number] [address] [place] [address] May, [facility] [address] [facility] [id number] [address] [place] [address] Apr, [place] [address] [facility] [id number] [address] [place] [address] Mar, [place] [address] [facility] [id number] [address] [place] [address] Mar, [place] [address] [place] [id number] [address] [place] [address] 17 Feb, 2015 Anticoagulant long-term use Z79.01 [facility] [address] [address] 16 Feb, 2015 Chronic prescription opiate use Z79.899 ; Other chronic pain G89.29 ; Hyperlipidemia, group D E78.3 ; Factor V Leiden D68.51 and Anticoagulant long- term use Z79.01 [facility] [address] [address] Feb, [facility] [address] [address] Jan, [place] [address] [address] Dec, Hyperlipidemia, unspecified E78.5 [place] [address] [address] Dec, Cellulitis of left lower ext remity L03.116 ; Venous stasis ulcers, left I83.029 and Factor V Leiden D68.51 [place] [address] [address] Dec, Hyperlipidemia 272.4 and Fac tor V Leiden 289.81 [place] [address] [place] [id number] [address] [place] [address] Dec, [facility] [address] [place] [id number] [address] [place] [address] Nov, Factor V Leiden 289.81 [facility] [address] [place] [id number] [address] [place] [address] Nov, [place] [address] [address] Nov, [facility] [address] [place] [id number] [address] [place] [address] Nov, [facility] [address] [place] [address] Oct, [facility] [address] [facility] [id number] [address] [place] [address] Oct, Hyperlipidemia 272.4 ; Chron ic pain disorder 338.4 ; Venous stasis ulcer of left lower extremity 454.0 and Factor V Leiden 289.81 [facility] [address] [facility] [id number] [address] [place] [address] Sep, [facility] [address] [facility] [id number] [place] [address] Sep, [facility] [address] [facility] [id number] [place] [address] Sep, Hyperlipidemia 272.4 and Fac tor V Leiden 289.81 [facility] [address] [place] [id number] [place] [address] Aug, [facility] [address] [address] Aug, Factor V Leiden 289.81 [facility] [address] [facility] [id number] [address] [place] [address] July, [facility] [address] [place] [id number] [address] [place] [address] July, Essential hypertension, fito gn 401.1 ; Factor V Leiden 289.81 ; Chronic pain disorder 338.4 ; Hyperlipidemia 272.4 and Venous stasis ulcer of left lower extremity 454.0 [facility] [address] [facility] [id number] [address] [place] [address] Jun, [facility] [address] [place] [id number] [place] [address] Jun, [facility] [address] [place] [id number] [address] [place] [address] May, [facility] [address] [place] [id number] [address] [place] [address] May, [facility] [address] [id number] [address] [place] [address], [place] [address] 20 Apr, 2014 [facility] [address] [id number] [address] [place] [address], [place] [address] 20 Apr, 2014 [facility] [address] [id number] [address] [place] [address], [place] [address] 18 Apr, 2014 [facility] [address] [id number] [address] [place] [address], [place] [address] 18 Apr, 2014 [facility] [address] [id number] [address] [place] [address], [place] [address] Apr, [facility] [address] [id number] [address] [place] [address], [place] [address] Apr, [facility] [address] [id number] [address] [place] [address], [place] [address] 15 Mar, 2014 [facility] [address] [id number] [address] [place] [address], [place] [address] Mar, [facility] [address] [id number] [address] [place] [address], [place] [address] Mar, [facility] [address] [id number] [address] [place] [address], [place] [address] Mar, [facility] [address] [id number] [address] [place] [address], [place] [address] 17 Feb, 2014 [facility] [address] [id number] [address] [place] [address], [place] [address] 17 Feb, 2014 [facility] [address] [id number] [address] [place] [address], [place] [address] 16 Feb, 2014 [facility] [address] [id number] [address] [place] [address], [place] [address] 16 Feb, 2014 [facility] [address] [id number] [address] [place] [address], [place] [address] 24 Jan, 2014 [facility] [address] [id number] [address] [place] [address], [place] [address] Jan, [facility] [address] [id number] [address] [place] [address], [place] [address] Jan, [facility] [address] [id number] [address] [place] [address], [place] [address] Jan, [facility] [address] [id number] [address] [place] [address], [place] [address] Jan, [facility] [address] [id number] [address] [place] [address], [place] [address] Jan, [facility] [address] [id number] [address] [place] [address], [place] [address] Dec, [facility] [address] [id number] [address] [place] [address], [place] [address] Dec, [facility] [address] [id number] [address] [place] [address], [place] [address] Oct, [facility] [address] [id number] [address] [place] [address], [place] [address] Oct, [facility] [address] [id number] [address] [place] [address], [place] [address] Sep, [facility] [address] [id number] [address] [place] [address], [place] [address] Sep, [facility] [address] [id number] [address] [place] [address], [place] [address] Sep, [facility] [address] [id number] [address] [place] [address], [place] [address] Sep, [facility] [address] [id number] [address] [place] [address], [place] [address] Aug, [facility] [address] [id number] [address] [place] [address], [place] [address] Aug, [facility] [address] [id number] [address] [place] [address], [place] [address] July, [facility] [address] [id number] [address] [place] [address], [place] [address] July, [facility] [address] [id number] [address] [place] [address], [place] [address] Jun, [facility] [address] [id number] [address] [place] [address], [place] [address] Jun, [facility] [address] [id number] [address] [place] [address], [place] [address] May, [facility] [address] [id number] [address] [place] [address], [place] [address] May, [facility] [address] [id number] [address] [place] [address], [place] [address] Apr, [facility] [address] [id number] [address] [place] [address], [place] [address] Apr, [facility] [address] [id number] [address] [place] [address], [place] [address] Mar, [facility] [address] [id number] [address] [place] [address], [place] [address] Mar, [facility] [address] [id number] [address] [place] [address], [place] [address] Jan, [facility] [address] [id number] [address] [place] [address], [place] [address] Jan, [facility] [address] [id number] [address] [place] [address], [place] [address] Jan, [facility] [address] [id number] [address] [place] [address], [place] [address] Jan, [facility] [address] [id number] [address] [place] [address], [place] [address] Jan, [facility] [address] [id number] [address] [place] [address], [place] [id number] Dec, [facility] [address] [id number] [address] [place] [address], [place] [address] Dec, [facility] [address] [id number] [address] [place] [address], [place] [address] Dec, [facility] [address] [id number] [address] [place] [address], [place] [address] Nov, [facility] [address] [id number] [address] [place] [address], [place] [address] Nov, [facility] [address] [id number] [address] [place] [address], [place] [address] Sep, [facility] [address] [id number] [address] [place] [address], [place] [address] Sep, [facility] [address] [id number] [address] [place] [id number] Aug, [facility] [address] [id number] [address] [place] [address], [place] [address] Aug, [facility] [address] [id number] [place] [id number] July, [facility] [address] [id number] [place] [id number] Jun, [facility] [address] [id number] [place] [id number] Apr, [facility] [address] [id number] [place] [id number] Mar, [facility] [address] [id number] [address] [place] [address], [place] [address] Mar, [facility] [address] [id number] [place] [id number] Mar, [facility] [address] [id number] [address] [place] [id number] Mar, [facility] [address] [id number] [place] [id number] Feb, [facility] [address] [id number] [address] [place] [id number] Feb, [facility] [address] [id number] [place] [id number] Feb, [facility] [address] [facility] [id number] [address] [place] [id number] Feb, [facility] [address] [id number] [place] [id number] Oct, [facility] [address] [id number] [place] [id number] Oct, [facility] [address] [id number] [place] [id number] July, [facility] [address] [id number] [place] [id number] July, [facility] [address] [id number] [place] [id number] Jun, [facility] [address] [id number] [place] [id number] Jun, [facility] [address] [id number] [place] [id number] Jun, [facility] [address] [id number] [place] [id number] Mar, [facility] [address] [id number] [place] [id number] Mar, [facility] [address] [facility] [id number] [address] [place] [id number] Feb, [facility] [address] [facility] [id number] [address] [place] [phone] Feb, [facility] [address] [facility] [id number] [address] [place] [phone] Jan, [facility] [address] [facility] [id number] [address] [place] [phone] Jan, [facility] [address] [facility] [id number] [address] [place] [phone] Jan, [facility] [address] [facility] [id number] [address] [place] [phone] Jan, [facility] [address] [facility] [id number] [address] [place] [phone] 11 Jan, 2011 [facility] [address] [facility] [id number] [address] [place] [phone] 14 Aug, 2010 [facility] [address] [facility] [id number] [address] [place] [phone] 17 Apr, 2010 IMMUNIZATIONS No Known Immunizations SOCIAL HISTORY Never Assessed REASON FOR VISIT Controlled Medication Refill PLAN OF CARE VITAL SIGNS MEDICATIONS Medication Instructions Dosage Frequency Start Date End Date Duration S sahil Hydrocodone-Acetaminophen 10-325 MG Orally 4 times a day as needed for pain 1 tablet Apr, 28 days Active RESULTS No Results PROCEDURES [...]
--- OUTSIDE RECORDS SUMMARY | 2019-11-08 13:13 | XMS REPORT ---
Author Author Zana ORTIZ Organization [facility] Address [address] [place] [address] Care Team Providers Care Locum Tenens Name Role Phone DIANA AVANI Unavailable PROBLEMS Type Condition ICD9-CM Code YEK56-IO Code Onset Dates Condition S tatus SNOMED Code Problem Factor V Leiden D68.51 Active 3070 84026 Problem Post-phlebitic syndrome I87.009 Active 83723915 Problem Anticoagulant long-term use Z79.01 Ac tive 759614489 Problem Essential hypertension I10 Active 06814117 Problem Other chronic pain G89.29 Active 8 0120679 Problem Venous stasis ulcers, left I83.029 Act ozzy 122556428 Problem 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 35857469 Problem Congenital single kidney Q60.0 Activ e 21708786 Problem Venous anomaly Q27.9 Active 84069 4003 Problem Pure hypercholesterolemia E78.00 Acti ve 196729940 Problem Chronic prescription opiate use Z79.899 Active [id number] ALLERGIES No Information ENCOUNTERS Encounter Location Date Diagnosis [facility] [id number] [place] [id number] 22 May, 2017 Chronic prescription opiate use Z79.899 ; Other chronic pain G89.29 ; Essential hypertension I10 ; Factor V Leiden D68.51 ; Anticoagulant long-term use Z79.01 ; Pure hypercholesterolemia E78.00 ; Venous stasis ulcers, left I83.029 ; Idiopathic chronic gout of multiple sites without tophus M1A.09X0 and Cellulitis of left lower extremity L03.116 [facility] [address] [place] [id number] [address] [place] [id number] 28 Apr, 2017 Other chronic pain G89.29 [facility] [address] [facility] [id number] [address] [place] [address] Mar, Other chronic pain G89.29 [facility] [address] [id number] [address] [place] [address] Mar, Factor V Leiden D68.51 ; Pur e hypercholesterolemia E78.00 and Other chronic pain G89.29 [facility] [address] [id number] [address] [place] [phone] Feb, Other chronic pain G89.29 [facility] [address] [id number] [address] [place] [address] Jan, Idiopathic chronic gout of m ultiple sites without tophus M1A.09X0 [facility] [address] [id number] [address] [place] [phone] Jan, Other chronic pain G89.29 [place] [address] [id number] [address] [place] [address] Dec, Anticoagulant long-term use Z79.01 ; Factor V Leiden D68.51 and Other chronic pain G89.29 [facility] [address] [id number] [address] [place] [address] Dec, Other chronic pain G89.29 [facility] [address] [id number] [address] [place] [phone] Nov, Other chronic pain G89.29 [place] [address] [facility] [id number] [address] [place] [address] Oct, Other chronic pain G89.29 [place] [address] [id number] [address] [place] [address] Sep, Anticoagulant long-term use Z79.01 [facility] [address] [id number] [address] [place] [id number] Sep, Chronic prescription opiate use Z79.899 ; Anticoagulant long-term use Z79.01 ; Essential hypertension I10 ; Pure hypercholesterolemia E78.00 ; Factor V Leiden D68.51 ; Venous stasis ulcers, left I83.029 ; Other chronic pain G89.29 and Idiopathic chronic gout of multiple sites without tophus M1A.09X0 [facility] [address] [id number] [address] [place] [phone] Aug, Anticoagulant long-term use Z79.01 [facility] [address] [id number] [address] [place] [address] Aug, Other chronic pain G89.29 [facility] [address] [id number] [address] [place] [address] Aug, Essential hypertension I10 a nd Factor V Leiden D68.[address] [place] [id number] [place] [id number] Aug, Acute right ankle pain M25.571 and Tendo nitis of ankle M77.50 [facility] [address] [facility] [id number] [address] [place] [phone] Aug, [facility] [address] [id number] [address] [place] [id number] July, Other chronic pain G89.29 [facility] [address] [id number] [address] [place] [phone] Jun, Other chronic pain G89.29 [facility] [address] [id number] [address] [place] [id number] Jun, Other chronic pain G89.29 [facility] [address] [id number] [address] [place] [phone] Jun, Anticoagulant long-term use Z79.01 [facility] [address] [id number] [address] [place] [address] May, Other chronic pain G89.29 [facility] [address] [facility] [id number] [address] [place] [address] May, Anticoagulant long-term use Z79.01 [facility] [address] [facility] [id number] [address] [place] [phone] May, Other chronic pain G89.29 [facility] [address] [facility] [id number] [address] [place] [address] Apr, Anticoagulant long-term use Z79.01 [facility] [address] [facility] [id number] [address] [place] [address] Apr, Other chronic pain G89.29 [facility] [address] [facility] [id number] [address] [place] [address] Apr, Anticoagulant long-term use Z79.01 and Pure hypercholesterolemia E78.00 [place] [address] [facility] [id number] [address] [place] [address] Mar, [place] [address] [facility] [id number] [address] [place] [address] Mar, Anticoagulant long-term use Z79.01 [place] [address] [facility] [id number] [address] [place] [address] Mar, Other chronic pain G89.29 [facility] [address] [facility] [id number] [address] [place] [address] Feb, Essential hypertension I10 ; Chronic prescription opiate use Z79.899 ; Other chronic pain G89.29 ; Screening Z13.9 ; Factor V Leiden D68.51 ; Anticoagulant long-term use Z79.01 ; Venous stasis dermatitis of left lower extremity I83.12 and Pure hypercholesterolemia E78.00 [facility] [address] [facility] [id number] [address] [place] [address] Jan, Anticoagulant long-term use Z79.01 [facility] [address] [facility] [id number] [address] [place] [id number] Jan, Anticoagulant long-term use Z79.01 [facility] [address] [facility] [id number] [address] [place] [phone] Jan, [facility] [address] [facility] [id number] [address] [place] [phone] Jan, [facility] [address] [facility] [id number] [address] [place] [phone] Dec, [facility] [address] [facility] [id number] [address] [place] [phone] Nov, [facility] [address] [facility] [id number] [address] [place] [phone] Oct, Anticoagulant long-term use Z79.01 [facility] [address] [facility] [id number] [address] [place] [id number] Oct, [facility] [address] [facility] [id number] [address] [place] [address] Oct, Anticoagulant long-term use Z79.01 [facility] [address] [facility] [id number] [address] [place] [phone] Sep, [facility] [address] [facility] [id number] [address] [place] [phone] Aug, [facility] [address] [facility] [id number] [address] [place] [address] Aug, Chronic prescription opiate use Z79.899 ; Other chronic pain G89.29 ; Essential hypertension I10 and Pure hypercholesterolemia E78.0 [facility] [address] [place] [id number] [address] [place] [address] July, Hyperlipidemia, group D E78. 3 and Anticoagulant long-term use Z79.01 [facility] [address] [facility] [id number] [address] [place] [address] July, Hyperlipidemia, group D E78. 3 ; Essential hypertension I10 and Factor V Leiden D68.51 [facility] [address] [place] [address] July, Essential hypertension I10 [facility] [address] [facility] [id number] [address] [place] [phone] Jun, Hyperlipidemia, group D E78. 3 [facility] [address] [facility] [id number] [address] [place] [address] Jun, Factor V Leiden D68.51 [facility] [address] [id number] [address] [place] [address] May, Factor V Leiden D68.51 ; Hyp erlipidemia, group D E78.3 ; Essential hypertension I10 ; Other chronic pain G89.29 and Anticoagulant long-term use Z79.01 [facility] [address] [id number] [address] [place] [phone] 04 May, 2015 Anticoagulant long-term use Z79.01 [facility] [address] [id number] [address] [place] [id number] 04 May, 2015 Anticoagulant long-term use Z79.01 [facility] [address] [facility] [id number] [address] [place] [phone] May, [facility] [address] [facility] [id number] [address] [place] [phone] Apr, [facility] [address] [facility] [id number] [address] [place] [phone] Mar, [facility] [address] [facility] [id number] [address] [place] [phone] Mar, [facility] [address] [facility] [id number] [address] [place] [address] Feb, Anticoagulant long-term use Z79.01 [facility] [address] [facility] [id number] [address] [place] [phone] 16 Feb, 2015 Chronic prescription opiate use Z79.899 ; Other chronic pain G89.29 ; Hyperlipidemia, group D E78.3 ; Factor V Leiden D68.51 and Anticoagulant long- term use Z79.01 [facility] [address] [facility] [id number] [address] [place] [phone] Feb, [facility] [address] [facility] [id number] [address] [place] [phone] Jan, [facility] [address] [address] Dec, Hyperlipidemia, unspecified E78.5 [facility] [address] [address] Dec, Cellulitis of left lower ext remity L03.116 ; Venous stasis ulcers, left I83.029 and Factor V Leiden D68.51 [facility] [address] [address] Dec, Hyperlipidemia 272.4 and Fac tor V Leiden 289.81 [facility] [address] [address] Dec, [facility] [address] [address] Nov, Factor V Leiden 289.81 [facility] [address] [address] Nov, [facility] [address] [address] Nov, [facility] [address] [address] Nov, [facility] [address] [address] Oct, [facility] [address] [address] Oct, Hyperlipidemia 272.4 ; Chron ic pain disorder 338.4 ; Venous stasis ulcer of left lower extremity 454.0 and Factor V Leiden 289.81 [facility] [address] [address] Sep, [facility] [address] [address] Sep, [facility] [address] [address] Sep, Hyperlipidemia 272.4 and Fac tor V Leiden 289.81 [facility] [address] [facility] [id number] [address] [place] [address] Aug, [facility] [address] [facility] [id number] [address] [place] [phone] Aug, Factor V Leiden 289.81 [facility] [address] [facility] [id number] [address] [place] [phone] July, [facility] [address] [facility] [id number] [place] [phone] July, Essential hypertension, fito gn 401.1 ; Factor V Leiden 289.81 ; Chronic pain disorder 338.4 ; Hyperlipidemia 272.4 and Venous stasis ulcer of left lower extremity 454.0 [facility] [address] [facility] [id number] [address] [place] [address] Jun, [facility] [address] [place] [id number] [place] [address] Jun, [facility] [address] [facility] [id number] [address] [place] [phone] May, [facility] [address] [place] [id number] [place] [address] May, [facility] [address] [place] [id number] [address] [place] [phone] Apr, [facility] [address] [facility] [id number] [address] [place] [phone] Apr, [facility] [address] [facility] [id number] [address] [place] [phone] Apr, [facility] [address] [facility] [id number] [address] [place] [phone] Apr, [facility] [address] [facility] [id number] [address] [place] [id number] 13 Apr, 2014 [facility] [address] [place] [id number] [address] [place] [phone] Apr, [facility] [address] [id number] [address] [place] [address], [place] [address] Mar, [facility] [address] [id number] [address] [place] [address], [place] [address] Mar, [facility] [address] [id number] [address] [place] [address], [place] [address] Mar, [facility] [address] [id number] [address] [place] [address], [place] [address] Mar, [facility] [address] [id number] [address] [place] [address], [place] [address] Feb, [facility] [address] [id number] [address] [place] [address], [place] [address] Feb, [facility] [address] [id number] [address] [place] [address], [place] [address] Feb, [facility] [address] [id number] [address] [place] [address], [place] [address] Feb, [facility] [address] [id number] [address] [place] [address], [place] [address] 24 Jan, 2014 [facility] [address] [id number] [address] [place] [address], [place] [address] Jan, [facility] [address] [id number] [address] [place] [address], [place] [address] Jan, [facility] [address] [id number] [address] [place] [address], [place] [address] Jan, [facility] [address] [id number] [address] [place] [address], [place] [address] Jan, [facility] [address] [id number] [address] [place] [address], [place] [address] Jan, [facility] [address] [id number] [address] [place] [address], [place] [address] Dec, [facility] [address] [id number] [address] [place] [address], [place] [address] Dec, [facility] [address] [id number] [address] [place] [address], [place] [address] Oct, [facility] [address] [id number] [address] [place] [address], [place] [address] Oct, [facility] [address] [id number] [address] [place] [address], [place] [address] Sep, [facility] [address] [id number] [address] [place] [address], [place] [address] Sep, [facility] [address] [id number] [address] [place] [address], [place] [address] Sep, [facility] [address] [id number] [address] [place] [address], [place] [address] Sep, [facility] [address] [id number] [address] [place] [address], [place] [address] Aug, [facility] [address] [id number] [address] [place] [address], [place] [address] Aug, [facility] [address] [id number] [address] [place] [address], [place] [address] July, [facility] [address] [id number] [address] [place] [address], [place] [address] July, [facility] [address] [id number] [address] [place] [address], [place] [address] Jun, [facility] [address] [id number] [address] [place] [address], [place] [address] Jun, [facility] [address] [id number] [address] [place] [address], [place] [address] May, [facility] [address] [id number] [address] [place] [address], [place] [address] May, [facility] [address] [id number] [address] [place] [address], [place] [address] Apr, [facility] [address] [id number] [address] [place] [address], [place] [address] Apr, [facility] [address] [id number] [address] [place] [address], [place] [address] Mar, [facility] [address] [id number] [address] [place] [address], [place] [address] Mar, [facility] [address] [id number] [address] [place] [address], [place] [address] Jan, [facility] [address] [id number] [address] [place] [address], [place] [address] Jan, [facility] [address] [id number] [address] [place] [address], [place] [address] Jan, [facility] [address] [id number] [address] [place] [address], [place] [address] Jan, [facility] [address] [id number] [address] [place] [address], [place] [address] Jan, [facility] [address] [id number] [address] [place] [address], [place] [address] Dec, [facility] [address] [id number] [address] [place] [address], [place] [address] Dec, [facility] [address] [id number] [address] [place] [address], [place] [address] Dec, [facility] [address] [id number] [address] [place] [address], [place] [address] Nov, [facility] [address] [id number] [address] [place] [address], [place] [address] Nov, [facility] [address] [id number] [address] [place] [address], [place] [address] Sep, [facility] [address] [id number] [address] [place] [address], [place] [address] Sep, [facility] [address] [id number] [address] [place] [address] Aug, [facility] [address] [facility] [id number] [address] [place] [address] Aug, [facility] [address] [id number] [id number] July, [facility] [address] [id number] [place] [id number] Jun, [facility] [address] [id number] [place] [id number] Apr, [facility] [address] [id number] [place] [id number] Mar, [facility] [address] [facility] [id number] [address] [place] [phone] Mar, [facility] [address] [id number] [place] [id number] Mar, [facility] [address] [facility] [id number] [address] [place] [phone] Mar, [facility] [address] [id number] [place] [id number] Feb, [facility] [address] [facility] [id number] [address] [place] [phone] Feb, [facility] [address] [id number] [place] [id number] Feb, [facility] [address] [facility] [id number] [address] [place] [phone] Feb, [facility] [address] [id number] [place] [id number] Oct, [facility] [address] [id number] [place] [id number] Oct, [facility] [place] [address] [id number] [place] [id number] July, [facility] [place] [address] [id number] [place] [id number] July, [facility] [place] [address] [id number] [place] [id number] Jun, [facility] [address] [id number] [place] [id number] Jun, [facility] [place] [address] [id number] [place] [id number] Jun, [facility] [place] [address] [id number] [place] [id number] Mar, [facility] [address] [id number] [place] [id number] Mar, [facility] [address] [id number] [address] [place] [phone] Feb, [facility] [address] [facility] [id number] [address] [place] [phone] Feb, [facility] [address] [facility] [id number] [address] [place] [phone] Jan, [facility] [address] [facility] [id number] [address] [place] [phone] Jan, [facility] [address] [facility] [id number] [address] [place] [phone] Jan, [facility] [address] [facility] [id number] [address] [place] [phone] Jan, [facility] [address] [facility] [id number] [address] [place] [id number] Jan, [facility] [address] [facility] [id number] [address] [place] [phone] Aug, [facility] [address] [facility] [id number] [address] [place] [phone] Apr, IMMUNIZATIONS No Known Immunizations SOCIAL HISTORY Never Assessed REASON FOR VISIT Lab (walk-in)--[facility] PLAN OF CARE VITAL SIGNS MEDICATIONS No Known Medications RESULTS Name Result Date Reference Range INR (IN HOUSE) 2016-09-22 INR 3.2 1.10 - 3.30 PREVIOUS INR 2.2 CURRENT COUMADIN DOSE 10 mg daily NEW COUMADIN DOSE Lot # [id number] Exp date 06/24/2017 PROCEDURES Procedure Date Ordered Result Body Site PROTHROMBIN TIME September 22, 2016 INSTRUCTIONS MEDICATIONS ADMINISTERED No Known Medications MEDICAL [...]
--- OUTSIDE RECORDS SUMMARY | 2019-11-08 13:14 | XMS REPORT ---
Author Author Zana EDDY Organization [facility] Address [address] [place] [address] Care Team Providers Care Pallet Stone Positioner Name Role Phone SPENCER EDDY Unavailable PROBLEMS Type Condition ICD9-CM Code [id number] Code Onset Dates Condition S tatus SNOMED Code Problem Factor V Leiden D68.51 Active 3070 96457 Problem Post-phlebitic syndrome I87.009 Active 21742360 Problem Anticoagulant long-term use Z79.01 Ac tive 969397143 Problem Essential hypertension I10 Active 37548004 Problem Other chronic pain G89.29 Active 8 5957832 Problem Venous stasis ulcers, left I83.029 Act ozzy 070802933 Problem 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 01168242 Problem Congenital single kidney Q60.0 Activ e 63584120 Problem Venous anomaly Q27.9 Active 71316 4003 Problem Pure hypercholesterolemia E78.00 Acti ve 277973650 Problem Chronic prescription opiate use Z79.899 Active 566207521 ALLERGIES No Information SOCIAL HISTORY Never Assessed PLAN OF CARE VITAL SIGNS MEDICATIONS Medication Instructions Dosage Frequency Start Date End Date Duration S tatus Hydrocodone-Acetaminophen 10-325 MG Orally 4 times a day as needed for pain 1 tablet Feb, 28 days Active RESULTS No Results PROCEDURES No Known procedures IMMUNIZATIONS No Known Immunizations MEDICAL (GENERAL) HISTORY Type Description Date Medical [...]
--- OUTSIDE RECORDS SUMMARY | 2019-11-08 13:14 | XMS REPORT ---
Author Author Zana ORTIZ [facility] eClinical[employer] Address Unknown Phone Unavailable Care Team Providers Care Family Law Attorney Name Role Phone AVANI ORTIZ CP Unavailable Allergies No Known Allergies Problems Problem Type Condition Code Onset Dates Condition Statu s Assessment Factor V Leiden D68.51 Active Problem Other chronic pain G89.29 Active Problem Hyperlipidemia, group D E78.3 Acti ve Problem Congenital single kidney Q60.0 Act ozzy Problem Anticoagulant long-term use Z79.01 Active Problem Chronic prescription opiate use Z79.899 Active Problem Factor V Leiden D68.51 Active Problem Essential hypertension I10 Activ e Problem Venous anomaly Q27.9 Active Problem Post-phlebitic syndrome I87.009 Acti ve Medications No Known Medications Results No Known Results Summary Purpose eClinicalWorks Submission
--- OUTSIDE RECORDS SUMMARY | 2019-11-08 13:14 | XMS REPORT ---
Author Author Zana ORTIZ [facility] eClinical[employer] Address Unknown Phone Unavailable Care Team Providers Care Access Database Developer Name Role Phone AVANI ORTIZ Unavailable Allergies, Adverse Reactions, Alerts Substance Reaction Event Type Morphine Sulfate Info Not Available Drug Allergy Amoxicillin Info Not Available Drug Allergy Problems Problem Type Condition Code Onset Dates Condition Statu s Problem Essential hypertension I10 Activ e Problem Other chronic pain G89.29 Active Problem Factor V Leiden D68.51 Active Assessment Venous stasis ulcers, left I83.029 A ctive Assessment Factor V Leiden D68.51 Active Problem Hyperlipidemia, group D E78.3 Acti ve Assessment Cellulitis of left lower extremity L03.116 Active Medications Medication Code System Code Instructions Start Date End Date Status Dosage Warfarin Sodium [facility] [address]-39 10 MG Orally Once a day 1 tablet Lisinopril [facility] 58560325515 20 MG TAKE ONE TABLET BY MOUTH DAILY Fish Oil [facility] [address]-58 1 gram September 25, 2013 ta ke 1 capsule by Oral route 3 times per day Pravastatin Sodium [facility] [address]-74 20 MG Orally Once a day Oct 31, 2014 1 tablet Gabapentin [facility] [address]-92 800 MG Orally Three times a day July 30, 2014 1 tablet Bactrim DS [facility] [address]-27 800-160 MG Orally 2 times a day x 10 da ys 1 tablet Hydrocodone-Acetaminophen [facility] [address]-59 10-325 MG Orally 4 times a day as needed for pain 1 tablet Aspirin [facility] [address]-46 325 MG Orally Once a day 1 tablet Procedures Procedure Coding System Code Date Office Visit, Est Pt., Level 3 CPT-[address] 2014 PROTHROMBIN TIME CPT-4 88709 Jan 08, 2015 Vital Signs Date/Time: Jan 08, 2015 Temperature 98.5 F Weight 282.6 lbs Height 76 in BMI 34.40 Index Blood Pressure Diastolic 72 mmHg Blood Pressure Systolic 124 mmHg Cardiac Monitoring Heart Rate 84 bpm Results Name Result Date Reference Range Unit Abnormali ty Flag INR (IN HOUSE) Summary Purpose eClinicalWorks Submission
--- OUTSIDE RECORDS SUMMARY | 2019-11-08 13:14 | XMS REPORT ---
Author Author Zana ORTIZ Organization [facility] Address [address] [place] [address] Care Team Providers Care Regional Agronomist Name Role Phone AVANI ORTIZ Unavailable PROBLEMS Type Condition ICD9-CM Code [id number] Code Onset Dates Condition S tatus SNOMED Code Problem Factor V Leiden D68.51 Active 3070 70581 Problem Post-phlebitic syndrome I87.009 Active 70234868 Problem Anticoagulant long-term use Z79.01 Ac tive 888580080 Problem Essential hypertension I10 Active 93571123 Problem Other chronic pain G89.29 Active 8 6147536 Problem Venous stasis ulcers, left I83.029 Act ozzy 690597589 Problem 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 63382538 Problem Congenital single kidney Q60.0 Activ e 32224333 Problem Venous anomaly Q27.9 Active 01185 4003 Problem Pure hypercholesterolemia E78.00 Acti ve 188792919 Problem Chronic prescription opiate use Z79.899 Active 775671447 ALLERGIES Unknown Allergies SOCIAL HISTORY No smoking Hx information available PLAN OF CARE VITAL SIGNS MEDICATIONS Medication Instructions Dosage Frequency Start Date End Date Duration S tatus Hydrocodone-Acetaminophen 10-325 MG Orally 4 times a day as needed for pain 1 tablet Feb, 28 days Active RESULTS No Results PROCEDURES No Known procedures IMMUNIZATIONS No Known Immunizations
--- OUTSIDE RECORDS SUMMARY | 2019-11-08 13:14 | XMS REPORT ---
Author Author Zana ORTIZ [facility] eClinical[employer] Address Unknown Phone Unavailable Care Team Providers Care Silk Screen Printing Racker Name Role Phone AVANI ORTIZ CP Unavailable Allergies No Known Allergies Problems Problem Type Condition Code Onset Dates Condition Statu s Assessment Anticoagulant long-term use Z79.01 Active Problem Other chronic pain G89.29 Active [...]
--- OUTSIDE RECORDS SUMMARY | 2019-11-08 13:14 | XMS REPORT ---
Author Author Zana ORTIZ [facility] eClinicalWorks Address Unknown Phone Unavailable Care Team Providers Care Database Manager Name Role Phone AVANI ORTIZ CP Unavailable Allergies No Known Allergies Problems Problem Type Condition ICD-9 Code Onset Dates Condition Statu s Problem Chronic pain disorder 338.4 Active Problem Hyperlipidemia 272.4 Active Problem Factor V Leiden 289.81 Active Problem Essential hypertension, benign 401.1 Active Problem Venous stasis ulcer of left lower extremity 454.0 Active Problem Obesity, unspecified 278.00 Active Medications No Known Medications Results No Known Results Summary Purpose eClinicalWorks Submission
--- OUTSIDE RECORDS SUMMARY | 2019-11-08 13:14 | XMS REPORT ---
Author Author Zana ORTIZ Organization [facility] Address [address] [place] [address] Care Team Providers Care Value Stream Coach Name Role Phone DIANADAVIDAVANI Unavailable PROBLEMS Type Condition ICD9-CM Code THN94-WU Code Onset Dates Condition S tatus SNOMED Code Problem Factor V Leiden D68.51 Active 3070 80833 Problem Post-phlebitic syndrome I87.009 Active 95387338 Problem Anticoagulant long-term use Z79.01 Ac tive 362152885 Problem Essential hypertension I10 Active 41032303 Problem Other chronic pain G89.29 Active 8 8931047 Problem Venous stasis ulcers, left I83.029 Act ozzy 408028193 Problem 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 42593959 Problem Congenital single kidney Q60.0 Activ e 52657383 Problem Venous anomaly Q27.9 Active 66823 4003 Problem Pure hypercholesterolemia E78.00 Acti ve 697029015 Problem Chronic prescription opiate use Z79.899 Active 300127530 ALLERGIES No Information ENCOUNTERS Encounter Location Date Diagnosis [place] [address] [facility] [id number] [address] [place] [phone] May, Idiopathic chronic gout of m ultiple sites without tophus M1A.09X0 [facility] [address] [facility] [id number] [address] [place] [phone] May, [facility] [address] [facility] [id number] [address] [place] [phone] May, Essential hypertension I10 ; Pure hypercholesterolemia E78.00 ; Anticoagulant long-term use Z79.01 and Idiopathic chronic gout of multiple sites without tophus M1A.09X0 [place] [address] [facility] [id number] [address] [place] [address] May, Other chronic pain G89.29 [place] [address] [facility] [id number] [address] [place] [phone] May, Anticoagulant long-term use Z79.01 [facility] [address] [facility] [id number] [address] [place] [address] May, Chronic prescription opiate use Z79.899 ; Other chronic pain G89.29 ; Essential hypertension I10 ; Factor V Leiden D68.51 ; Anticoagulant long-term use Z79.01 ; Pure hypercholesterolemia E78.00 ; Venous stasis ulcers, left I83.029 ; Idiopathic chronic gout of multiple sites without tophus M1A.09X0 and Cellulitis of left lower extremity L03.116 [place] [address] [facility] [id number] [address] [place] [address] Apr, Other chronic pain G89.29 [place] [address] [address] [facility] [id number] [address] [place] [phone] Mar, Other chronic pain G89.29 [place] [address] [address] [facility] [id number] [address] [place] [phone] Mar, Factor V Leiden D68.51 ; Pur e hypercholesterolemia E78.00 and Other chronic pain G89.29 [place] [address] [address] [facility] [id number] [address] [place] [phone] Feb, Other chronic pain G89.29 [place] [address] [address] [facility] [id number] [address] [place] [phone] Jan, Idiopathic chronic gout of m ultiple sites without tophus M1A.09X0 [place] [address] [facility] [id number] [address] [place] [phone] Jan, Other chronic pain G89.29 [place] [address] [facility] [id number] [address] [place] [address] Dec, Anticoagulant long-term use Z79.01 ; Factor V Leiden D68.51 and Other chronic pain G89.29 [place] [address] [place] [id number] [address] [place] [address] 11 Dec, 2016 Other chronic pain G89.29 [place] [address] [facility] [id number] [address] [place] [address] 13 Nov, 2016 Other chronic pain G89.29 [place] [address] [facility] [id number] [address] [place] [phone] 16 Oct, 2016 Other chronic pain G89.29 [place] [address] [facility] [id number] [address] [place] [phone] Sep, Anticoagulant long-term use Z79.01 [place] [address] [facility] [id number] [address] [place] [address] Sep, Chronic prescription opiate use Z79.899 ; Anticoagulant long-term use Z79.01 ; Essential hypertension I10 ; Pure hypercholesterolemia E78.00 ; Factor V Leiden D68.51 ; Venous stasis ulcers, left I83.029 ; Other chronic pain G89.29 and Idiopathic chronic gout of multiple sites without tophus M1A.09X0 [place] [address] [facility] [id number] [address] [place] [address] Aug, Anticoagulant long-term use Z79.01 [place] [address] [facility] [id number] [address] [place] [phone] Aug, Other chronic pain G89.29 [place] [address] [facility] [id number] [address] [place] [address] Aug, Essential hypertension I10 a nd Factor V Leiden D68.[address] [place] [id number] [place] [id number] 15 Aug, 2016 Acute right ankle pain M25.571 and Tendo nitis of ankle M77.50 [place] [address] [facility] [id number] [address] [place] [address] Aug, [place] [address] [address] [facility] [id number] [address] [place] [address] July, Other chronic pain G89.29 [facility] [address] [id number] [address] [place] [address] Jun, Other chronic pain G89.29 [facility] [address] [id number] [address] [place] [phone] Jun, Other chronic pain G89.29 [facility] [address] [id number] [address] [place] [phone] Jun, Anticoagulant long-term use Z79.01 [facility] [address] [id number] [address] [place] [phone] May, Other chronic pain G89.29 [facility] [address] [id number] [address] [place] [phone] May, Anticoagulant long-term use Z79.01 [facility] [address] [id number] [address] [place] [phone] May, Other chronic pain G89.29 [facility] [address] [id number] [address] [place] [address] Apr, Anticoagulant long-term use Z79.01 [facility] [address] [id number] [address] [place] [phone] Apr, Other chronic pain G89.29 [facility] [address] [id number] [address] [place] [address] Apr, Anticoagulant long-term use Z79.01 and Pure hypercholesterolemia E78.00 [facility] [address] [id number] [address] [place] [phone] Mar, [facility] [address] [id number] [address] [place] [address] Mar, Anticoagulant long-term use Z79.01 [facility] [address] [facility] [id number] [address] [place] [phone] Mar, Other chronic pain G89.29 [facility] [address] [id number] [address] [place] [phone] 08 Feb, 2016 Essential hypertension I10 ; Chronic prescription opiate use Z79.899 ; Other chronic pain G89.29 ; Screening Z13.9 ; Factor V Leiden D68.51 ; Anticoagulant long-term use Z79.01 ; Venous stasis dermatitis of left lower extremity I83.12 and Pure hypercholesterolemia E78.00 [facility] [address] [facility] [id number] [address] [place] [address] 14 Jan, 2016 Anticoagulant long-term use Z79.01 [facility] [address] [facility] [id number] [address] [place] [phone] 10 Jan, 2016 Anticoagulant long-term use Z79.01 [facility] [address] [place] [id number] [address] [place] [phone] 09 Jan, 2016 [facility] [address] [place] [id number] [address] [place] [phone] Jan, [facility] [address] [place] [id number] [address] [place] [phone] Dec, [facility] [address] [facility] [id number] [address] [place] [phone] Nov, [facility] [address] [place] [id number] [address] [place] [phone] Oct, Anticoagulant long-term use Z79.01 [facility] [address] [place] [id number] [address] [place] [phone] Oct, [facility] [address] [facility] [id number] [address] [place] [address] Oct, Anticoagulant long-term use Z79.01 [facility] [address] [facility] [id number] [address] [place] [phone] Sep, [facility] [address] [facility] [id number] [address] [place] [phone] Aug, [facility] [address] [place] [id number] [address] [place] [phone] Aug, Chronic prescription opiate use Z79.899 ; Other chronic pain G89.29 ; Essential hypertension I10 and Pure hypercholesterolemia E78.0 [facility] [address] [facility] [id number] [address] [place] [phone] July, Hyperlipidemia, group D E78. 3 and Anticoagulant long-term use Z79.01 [facility] [address] [facility] [id number] [address] [place] [phone] July, Hyperlipidemia, group D E78. 3 ; Essential hypertension I10 and Factor V Leiden D68.51 [facility] [address] [facility] [id number] [address] [place] [phone] July, Essential hypertension I10 [place] [address] [address] [facility] [id number] [address] [place] [phone] Jun, Hyperlipidemia, group D E78. 3 [place] [address] [facility] [id number] [address] [place] [address] Jun, Factor V Leiden D68.51 [place] [address] [facility] [id number] [address] [place] [address] May, Factor V Leiden D68.51 ; Hyp erlipidemia, group D E78.3 ; Essential hypertension I10 ; Other chronic pain G89.29 and Anticoagulant long-term use Z79.01 [place] [address] [facility] [id number] [address] [place] [address] May, Anticoagulant long-term use Z79.01 [facility] [address] [facility] [id number] [address] [place] [phone] May, Anticoagulant long-term use Z79.01 [facility] [address] [facility] [id number] [address] [place] [phone] May, [place] [address] [address] [facility] [id number] [address] [place] [phone] Apr, [facility] [address] [facility] [id number] [address] [place] [phone] Mar, [facility] [address] [facility] [id number] [address] [place] [phone] Mar, [facility] [address] [facility] [id number] [address] [place] [address] Feb, Anticoagulant long-term use Z79.01 [facility] [address] [facility] [id number] [address] [place] [address] Feb, Chronic prescription opiate use Z79.899 ; Other chronic pain G89.29 ; Hyperlipidemia, group D E78.3 ; Factor V Leiden D68.51 and Anticoagulant long- term use Z79.01 [place] [address] [facility] [id number] [address] [place] [phone] Feb, [place] [address] [place] [id number] [address] [place] [phone] Jan, [facility] [address] [place] [id number] [address] [place] [address] Dec, Hyperlipidemia, unspecified E78.5 [facility] [address] [facility] [id number] [address] [place] [address] Dec, Cellulitis of left lower ext remity L03.116 ; Venous stasis ulcers, left I83.029 and Factor V Leiden D68.51 [place] [address] [facility] [id number] [address] [place] [phone] Dec, Hyperlipidemia 272.4 and Fac tor V Leiden 289.81 [facility] [address] [facility] [id number] [address] [place] [phone] Dec, [place] [address] [facility] [id number] [address] [place] [phone] Nov, Factor V Leiden 289.81 [place] [address] [facility] [id number] [address] [place] [phone] Nov, [place] [address] [place] [id number] [address] [place] [phone] 08 Nov, 2014 [facility] [address] [facility] [id number] [address] [place] [phone] Nov, [facility] [address] [facility] [id number] [address] [place] [phone] Oct, [facility] [address] [facility] [id number] [address] [place] [phone] Oct, Hyperlipidemia 272.4 ; Chron ic pain disorder 338.4 ; Venous stasis ulcer of left lower extremity 454.0 and Factor V Leiden 289.81 [facility] [address] [facility] [id number] [address] [place] [phone] Sep, [facility] [address] [facility] [id number] [place] [phone] Sep, [facility] [address] [facility] [id number] [place] [address] Sep, Hyperlipidemia 272.4 and Fac tor V Leiden 289.81 [facility] [address] [facility] [id number] [address] [place] [phone] Aug, [facility] [address] [facility] [id number] [place] [phone] Aug, Factor V Leiden 289.81 [facility] [address] [place] [id number] [address] [place] [phone] July, [facility] [address] [facility] [id number] [address] [place] [phone] July, Essential hypertension, fito gn 401.1 ; Factor V Leiden 289.81 ; Chronic pain disorder 338.4 ; Hyperlipidemia 272.4 and Venous stasis ulcer of left lower extremity 454.0 [facility] [address] [facility] [id number] [address] [place] [phone] Jun, [facility] [address] [facility] [id number] [address] [place] [phone] Jun, [facility] [address] [place] [id number] [address] [place] [phone] 13 May, 2014 [facility] [address] [id number] [address] [place] [address], [place] [address] 13 May, 2014 [facility] [address] [id number] [address] [place] [address], [place] [address] 20 Apr, 2014 [facility] [address] [id number] [address] [place] [address], [place] [address] 20 Apr, 2014 [facility] [address] [id number] [address] [place] [address], [place] [address] 18 Apr, 2014 [facility] [address] [id number] [address] [place] [address], [place] [address] 18 Apr, 2014 [facility] [address] [id number] [address] [place] [address], [place] [address] 13 Apr, 2014 [facility] [address] [id number] [address] [place] [address], [place] [address] 13 Apr, 2014 [facility] [address] [id number] [address] [place] [address], [place] [address] 15 Mar, 2014 [facility] [address] [id number] [address] [place] [address], [place] [address] Mar, [facility] [address] [id number] [address] [place] [address], [place] [address] Mar, [facility] [address] [id number] [address] [place] [address], [place] [address] Mar, [facility] [address] [id number] [address] [place] [address], [place] [address] Feb, [facility] [address] [id number] [address] [place] [address], [place] [address] Feb, [facility] [address] [id number] [address] [place] [address], [place] [address] 16 Feb, 2014 [facility] [address] [id number] [address] [place] [address], [place] [address] Feb, [facility] [address] [id number] [address] [place] [address], [place] [address] Jan, [facility] [address] [id number] [address] [place] [address], [place] [address] Jan, [facility] [address] [id number] [address] [place] [address], [place] [address] Jan, [facility] [address] [id number] [address] [place] [address], [place] [address] Jan, [facility] [address] [id number] [address] [place] [address], [place] [address] Jan, [facility] [address] [id number] [address] [place] [address], [place] [address] Jan, [facility] [address] [id number] [address] [place] [address], [place] [address] Dec, [facility] [address] [id number] [address] [place] [address], [place] [address] Dec, [facility] [address] [id number] [address] [place] [address], [place] [address] Oct, [facility] [address] [id number] [address] [place] [address], [place] [address] Oct, [facility] [address] [id number] [address] [place] [address], [place] [address] Sep, [facility] [address] [id number] [address] [place] [address], [place] [address] Sep, [facility] [address] [id number] [address] [place] [address], [place] [address] Sep, [facility] [address] [id number] [address] [place] [address], [place] [address] Sep, [facility] [address] [id number] [address] [place] [address], [place] [address] Aug, [facility] [address] [id number] [address] [place] [address], [place] [address] Aug, [facility] [address] [id number] [address] [place] [address], [place] [address] July, [facility] [address] [id number] [address] [place] [address], [place] [address] July, [facility] [address] [id number] [address] [place] [address], [place] [address] Jun, [facility] [address] [id number] [address] [place] [address], [place] [address] Jun, [facility] [address] [id number] [address] [place] [address], [place] [address] May, [facility] [address] [id number] [address] [place] [address], [place] [address] May, [facility] [address] [id number] [address] [place] [address], [place] [address] Apr, [facility] [address] [id number] [address] [place] [address], [place] [address] Apr, [facility] [address] [id number] [address] [place] [address], [place] [address] Mar, [facility] [address] [id number] [address] [place] [address], [place] [address] Mar, [facility] [address] [id number] [address] [place] [address], [place] [address] Jan, [facility] [address] [id number] [address] [place] [address], [place] [address] Jan, [facility] [address] [id number] [address] [place] [address], [place] [address] Jan, [facility] [address] [id number] [address] [place] [address], [place] [address] Jan, [facility] [address] [id number] [address] [place] [address], [place] [address] Jan, [facility] [address] [id number] [facility] [place] [address] Dec, [facility] [address] [id number] [address] [place] [address], [place] [address] Dec, [facility] [address] [id number] [address] [place] [address], [place] [address] Dec, [facility] [address] [id number] [address] [place] [address], [place] [address] Nov, [facility] [address] [id number] [address] [place] [address], [place] [address] Nov, [facility] [address] [id number] [address] [place] [address], [place] [address] Sep, [facility] [address] [id number] [address] [place] [address], [place] [address] Sep, [facility] [address] [id number] [address] [place] [address], [place] [address] Aug, [facility] [address] [id number] [address] [place] [address], [place] [address] Aug, [facility] [address] [id number] [place] [id number] July, [facility] [address] [id number] [place] [id number] Jun, [facility] [address] [id number] [place] [id number] Apr, [facility] [address] [id number] [place] [id number] Mar, [facility] [address] [id number] [address] [place] [address], [place] [address] Mar, [facility] [address] [id number] [place] [id number] Mar, [facility] [address] [id number] [address] [place] [address], [place] [address] Mar, [facility] [address] [id number] [place] [id number] Feb, [facility] [address] [id number] [address] [place] [id number] Feb, [facility] [address] [id number] [place] [id number] Feb, [facility] [address] [facility] [id number] [address] [place] [id number] Feb, [facility] [address] [id number] [place] [id number] Oct, [facility] [address] [id number] [place] [id number] Oct, [facility] [address] [id number] [place] [id number] July, [facility] [address] [id number] [place] [id number] July, [facility] [address] [id number] [place] [id number] Jun, [facility] [address] [id number] [place] [id number] Jun, [facility] [address] [id number] [place] [id number] Jun, [facility] [address] [id number] [place] [id number] Mar, [facility] [address] [id number] [place] [id number] Mar, [facility] [address] [id number] [address] [place] [id number] Feb, [facility] [address] [facility] [id number] [address] [place] [id number] Feb, [facility] [address] [facility] [id number] [address] [place] [id number] Jan, [facility] [address] [facility] [id number] [address] [place] [id number] Jan, [facility] [address] [facility] [id number] [address] [place] [id number] 11 Jan, 2011 [facility] [address] [facility] [id number] [address] [place] [id number] 11 Jan, 2011 [facility] [address] [facility] [id number] [address] [place] [id number] 11 Jan, 2011 [facility] [address] [facility] [id number] [address] [place] [id number] 14 Aug, 2010 [facility] [address] [facility] [id number] [address] [place] [id number] 17 Apr, 2010 IMMUNIZATIONS No Known Immunizations SOCIAL HISTORY Never Assessed REASON FOR VISIT Future lab order PLAN OF CARE VITAL SIGNS MEDICATIONS Unknown [...]
--- OUTSIDE RECORDS SUMMARY | 2019-11-08 13:14 | XMS REPORT ---
Author Author Zana ORTIZ Organization [facility] Address [address] [place] [address] Care Team Providers Care Inventory Coordinator Name Role Phone AVANI ORTIZ Unavailable PROBLEMS Type Condition ICD9-CM Code [id number] Code Onset Dates Condition S tatus SNOMED Code Problem Factor V Leiden D68.51 Active 3070 08006 Problem Post-phlebitic syndrome I87.009 Active 14172970 Problem Anticoagulant long-term use Z79.01 Ac tive 173261203 Problem Essential hypertension I10 Active 70077204 Problem Other chronic pain G89.29 Active 8 1702110 Problem Venous stasis ulcers, left I83.029 Act ozzy 932999112 Problem 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 59851807 Problem Congenital single kidney Q60.0 Activ e 05683085 Problem Venous anomaly Q27.9 Active 02074 4003 Problem Pure hypercholesterolemia E78.00 Acti ve 946341613 Problem Chronic prescription opiate use Z79.899 Active 074778482 ALLERGIES Unknown Allergies SOCIAL HISTORY No smoking Hx information available PLAN OF CARE VITAL SIGNS MEDICATIONS Medication Instructions Dosage Frequency Start Date End Date Duration S tatus Hydrocodone-Acetaminophen 10-325 MG Orally 4 times a day as needed for pain 1 tablet Feb, 28 days Active RESULTS No Results PROCEDURES No Known procedures IMMUNIZATIONS No Known Immunizations
--- OUTSIDE RECORDS SUMMARY | 2019-11-08 13:14 | XMS REPORT ---
Author Author Zana EDDY Organization 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 [address] [facility] [id number] [address] [place] [address] Jun, Idiopathic chronic gout of m ultiple sites without tophus M1A.09X0 [facility] [address] [facility] [id number] [address] [place] [address] Jun, Acute renal insufficiency N2 8.9 [facility] [address] [facility] [id number] [address] [place] [address] Jun, Other chronic pain G89.29 [facility] [address] [facility] [id number] [address] [place] [address] Jun, Acute renal insufficiency N2 8.9 [place] [id number] [facility] [id number] [place] [id number] Jun, Idiopathic chronic gout of multiple site s without tophus M1A.09X0 ; Essential hypertension I10 and Anticoagulant long-term use Z79.01 [place] [address] [facility] [id number] [address] [place] [address] Jun, Anticoagulant long-term use Z79.01 and Essential hypertension I10 [place] [address] [place] [id number] [address] [place] [address] May, Idiopathic chronic gout of m ultiple sites without tophus M1A.09X0 [place] [address] [place] [id number] [address] [place] [address] May, [place] [address] [place] [id number] [place] [address] May, Essential hypertension I10 ; Pure hypercholesterolemia E78.00 ; Anticoagulant long-term use Z79.01 and Idiopathic chronic gout of multiple sites without tophus M1A.09X0 [place] [id number] [place] [address] May, Other chronic pain G89.29 [place] [address] [place] [id number] [address] [place] [address] May, Anticoagulant long-term use Z79.01 [place] [address] [place] [id number] [address] [place] [address] May, Chronic prescription opiate use Z79.899 ; Other chronic pain G89.29 ; Essential hypertension I10 ; Factor V Leiden D68.51 ; Anticoagulant long-term use Z79.01 ; Pure hypercholesterolemia E78.00 ; Venous stasis ulcers, left I83.029 ; Idiopathic chronic gout of multiple sites without tophus M1A.09X0 and Cellulitis of left lower extremity L03.116 [place] [address] [facility] [id number] [address] [place] [address] Apr, Other chronic pain G89.29 [place] [address] [place] [id number] [address] [place] [address] Mar, Other chronic pain G89.29 [facility] [address] [facility] [id number] [address] [place] [address] Mar, Factor V Leiden D68.51 ; Pur e hypercholesterolemia E78.00 and Other chronic pain G89.29 [facility] [address] [place] [id number] [address] [place] [address] Feb, Other chronic pain G89.29 [facility] [address] [place] [id number] [address] [place] [address] Jan, Idiopathic chronic gout of m ultiple sites without tophus M1A.09X0 [facility] [address] [place] [id number] [address] [place] [address] Jan, Other chronic pain G89.29 [place] [address] [place] [address] Dec, Anticoagulant long-term use Z79.01 ; Factor V Leiden D68.51 and Other chronic pain G89.29 [place] [address] [place] [id number] [address] [place] [address] Dec, Other chronic pain G89.29 [facility] [address] [facility] [id number] [address] [place] [address] Nov, Other chronic pain G89.29 [place] [address] [place] [id number] [address] [place] [address] Oct, Other chronic pain G89.29 [place] [address] [place] [id number] [address] [place] [address] Sep, Anticoagulant long-term use Z79.01 [facility] [address] [facility] [id number] [address] [place] [address] Sep, Chronic prescription opiate use Z79.899 ; Anticoagulant long-term use Z79.01 ; Essential hypertension I10 ; Pure hypercholesterolemia E78.00 ; Factor V Leiden D68.51 ; Venous stasis ulcers, left I83.029 ; Other chronic pain G89.29 and Idiopathic chronic gout of multiple sites without tophus M1A.09X0 [facility] [address] [facility] [id number] [address] [place] [address] Aug, Anticoagulant long-term use Z79.01 [facility] [address] [facility] [id number] [address] [place] [address] Aug, Other chronic pain G89.29 [facility] [address] [facility] [id number] [address] [place] [address] Aug, Essential hypertension I10 a nd Factor V Leiden D68.[id number] [place] [id number] 15 Aug, 2016 Acute right ankle pain M25.571 and Tendo nitis of ankle M77.50 [place] [address] [facility] [id number] [address] [place] [address] Aug, [facility] [address] [facility] [id number] [address] [place] [address] July, Other chronic pain G89.29 [facility] [address] [facility] [id number] [address] [place] [address] Jun, Other chronic pain G89.29 [facility] [address] [facility] [id number] [address] [place] [address] Jun, Other chronic pain G89.29 [facility] [address] [facility] [id number] [address] [place] [address] Jun, Anticoagulant long-term use Z79.01 [facility] [address] [id number] [address] [place] [address] May, Other chronic pain G89.29 [facility] [address] [facility] [id number] [address] [place] [address] May, Anticoagulant long-term use Z79.01 [facility] [address] [facility] [id number] [address] [place] [address] May, Other chronic pain G89.29 [facility] [address] [facility] [id number] [address] [place] [address] Apr, Anticoagulant long-term use Z79.01 [facility] [address] [facility] [id number] [address] [place] [address] Apr, Other chronic pain G89.29 [facility] [address] [facility] [id number] [address] [place] [address] Apr, Anticoagulant long-term use Z79.01 and Pure hypercholesterolemia E78.00 [place] [address] [facility] [id number] [address] [place] [address] Mar, [place] [address] [facility] [id number] [address] [place] [address] Mar, Anticoagulant long-term use Z79.01 [place] [address] [facility] [id number] [address] [place] [address] Mar, Other chronic pain G89.29 [facility] [address] [facility] [id number] [address] [place] [address] Feb, Essential hypertension I10 ; Chronic prescription opiate use Z79.899 ; Other chronic pain G89.29 ; Screening Z13.9 ; Factor V Leiden D68.51 ; Anticoagulant long-term use Z79.01 ; Venous stasis dermatitis of left lower extremity I83.12 and Pure hypercholesterolemia E78.00 [facility] [address] [facility] [id number] [address] [place] [address] Jan, Anticoagulant long-term use Z79.01 [facility] [address] [facility] [id number] [address] [place] [address] Jan, Anticoagulant long-term use Z79.01 [facility] [address] [facility] [id number] [address] [place] [address] Jan, [facility] [address] [facility] [id number] [address] [place] [address] Jan, [facility] [address] [facility] [id number] [address] [place] [address] Dec, [facility] [address] [facility] [id number] [place] [address] Nov, [facility] [address] [address] Oct, Anticoagulant long-term use Z79.01 [facility] [address] [facility] [id number] [address] Oct, [facility] [address] [address] Oct, Anticoagulant long-term use Z79.01 [facility] [address] [address] Sep, [facility] [address] [address] Aug, [facility] [address] [address] Aug, Chronic prescription opiate use Z79.899 ; Other chronic pain G89.29 ; Essential hypertension I10 and Pure hypercholesterolemia E78.0 [facility] [address] [address] July, Hyperlipidemia, group D E78. 3 and Anticoagulant long-term use Z79.01 [facility] [address] [address] July, Hyperlipidemia, group D E78. 3 ; Essential hypertension I10 and Factor V Leiden D68.51 [facility] [address] [address] July, Essential hypertension I10 [facility] [address] [address] Jun, Hyperlipidemia, group D E78. 3 [facility] [address] [place] [id number] [address] [place] [address] Jun, Factor V Leiden D68.51 [facility] [address] [facility] [id number] [address] [place] [address] May, Factor V Leiden D68.51 ; Hyp erlipidemia, group D E78.3 ; Essential hypertension I10 ; Other chronic pain G89.29 and Anticoagulant long-term use Z79.01 [facility] [address] [facility] [id number] [address] [place] [address] 04 May, 2015 Anticoagulant long-term use Z79.01 [facility] [address] [facility] [id number] [address] [place] [address] May, Anticoagulant long-term use Z79.01 [facility] [address] [facility] [id number] [address] [place] [address] May, [facility] [address] [place] [id number] [address] [place] [address] Apr, [facility] [address] [facility] [id number] [address] [place] [address] Mar, [facility] [address] [facility] [id number] [address] [place] [address] Mar, [facility] [address] [facility] [id number] [address] [place] [address] Feb, Anticoagulant long-term use Z79.01 [facility] [address] [facility] [id number] [address] [place] [id number] 16 Feb, 2015 Chronic prescription opiate use Z79.899 ; Other chronic pain G89.29 ; Hyperlipidemia, group D E78.3 ; Factor V Leiden D68.51 and Anticoagulant long- term use Z79.01 [facility] [address] [facility] [id number] [address] [place] [address] Feb, [facility] [address] [facility] [id number] [address] [place] [address] Jan, [place] [id number] [address] Dec, Hyperlipidemia, unspecified E78.5 [facility] [address] [address] Dec, Cellulitis of left lower ext remity L03.116 ; Venous stasis ulcers, left I83.029 and Factor V Leiden D68.51 [facility] [address] [address] Dec, Hyperlipidemia 272.4 and Fac tor V Leiden 289.81 [place] [address] [address] Dec, [facility] [address] [address] Nov, Factor V Leiden 289.81 [facility] [address] [address] Nov, [facility] [address] [address] Nov, [facility] [address] [address] Nov, [facility] [address] [address] Oct, [facility] [address] [address] Oct, Hyperlipidemia 272.4 ; Chron ic pain disorder 338.4 ; Venous stasis ulcer of left lower extremity 454.0 and Factor V Leiden 289.81 [facility] [address] [address] Sep, [facility] [address] [address] Sep, [facility] [address] [address] Sep, Hyperlipidemia 272.4 and Fac tor V Leiden 289.81 [facility] [address] [id number] [address] [place] [address] Aug, [facility] [address] [facility] [id number] [address] [place] [address] Aug, Factor V Leiden 289.81 [facility] [address] [facility] [id number] [address] [place] [address] July, [facility] [address] [id number] [address] [place] [address] July, Essential hypertension, fito gn 401.1 ; Factor V Leiden 289.81 ; Chronic pain disorder 338.4 ; Hyperlipidemia 272.4 and Venous stasis ulcer of left lower extremity 454.0 [facility] [address] [facility] [id number] [address] [place] [address] Jun, [facility] [address] [facility] [id number] [address] [place] [address] Jun, [facility] [address] [facility] [id number] [address] [place] [address] May, [facility] [address] [facility] [id number] [address] [place] [address] May, [facility] [address] [facility] [id number] [address] [place] [address] Apr, [facility] [address] [facility] [id number] [address] [place] [phone] Apr, [facility] [address] [facility] [id number] [address] [place] [phone] Apr, [facility] [address] [facility] [id number] [address] [place] [address] Apr, [facility] [address] [facility] [id number] [address] [place] [address] Apr, [facility] [address] [id number] [address] [place] [address], [place] [address] 13 Apr, 2014 [facility] [address] [id number] [address] [place] [address], [place] [address] 15 Mar, 2014 [facility] [address] [id number] [address] [place] [address], [place] [address] 15 Mar, 2014 [facility] [address] [id number] [address] [place] [address], [place] [address] Mar, [facility] [address] [id number] [address] [place] [address], [place] [address] Mar, [facility] [address] [id number] [address] [place] [address], [place] [address] Feb, [facility] [address] [id number] [address] [place] [address], [place] [address] Feb, [facility] [address] [id number] [address] [place] [address], [place] [address] Feb, [facility] [address] [id number] [address] [place] [address], [place] [address] Feb, [facility] [address] [id number] [address] [place] [address], [place] [address] 24 Jan, 2014 [facility] [address] [id number] [address] [place] [address], [place] [address] Jan, [facility] [address] [id number] [address] [place] [address], [place] [address] Jan, [facility] [address] [id number] [address] [place] [address], [place] [address] Jan, [facility] [address] [id number] [address] [place] [address], [place] [address] Jan, [facility] [address] [id number] [address] [place] [address], [place] [address] Jan, [facility] [address] [id number] [address] [place] [address], [place] [address] Dec, [facility] [address] [id number] [address] [place] [address], [place] [address] Dec, [facility] [address] [id number] [address] [place] [address], [place] [address] Oct, [facility] [address] [id number] [address] [place] [address], [place] [address] Oct, [facility] [address] [id number] [address] [place] [address], [place] [address] Sep, [facility] [address] [id number] [address] [place] [address], [place] [address] Sep, [facility] [address] [id number] [address] [place] [address], [place] [address] Sep, [facility] [address] [id number] [address] [place] [address], [place] [address] Sep, [facility] [address] [id number] [address] [place] [address], [place] [address] Aug, [facility] [address] [id number] [address] [place] [address], [place] [address] Aug, [facility] [address] [id number] [address] [place] [address], [place] [address] July, [facility] [address] [id number] [address] [place] [address], [place] [address] July, [facility] [address] [id number] [address] [place] [address], [place] [address] Jun, [facility] [address] [id number] [address] [place] [address], [place] [address] Jun, [facility] [address] [id number] [address] [place] [address], [place] [address] May, [facility] [address] [id number] [address] [place] [address], [place] [address] May, [facility] [address] [id number] [address] [place] [address], [place] [address] Apr, [facility] [address] [id number] [address] [place] [address], [place] [address] Apr, [facility] [address] [id number] [address] [place] [address], [place] [address] Mar, [facility] [address] [id number] [address] [place] [address], [place] [address] Mar, [facility] [address] [id number] [address] [place] [address], [place] [address] Jan, [facility] [address] [id number] [address] [place] [address], [place] [address] Jan, [facility] [address] [id number] [address] [place] [address], [place] [address] Jan, [facility] [address] [id number] [address] [place] [address], [place] [address] Jan, [facility] [address] [id number] [address] [place] [address], [place] [address] Jan, [facility] [address] [id number] [address] [place] [address], [place] [address] Dec, [facility] [address] [id number] [address] [place] [address], [place] [address] Dec, [facility] [address] [id number] [address] [place] [address], [place] [address] Dec, [facility] [address] [id number] [address] [place] [address], [place] [address] Nov, [facility] [address] [id number] [address] [place] [address], [place] [address] Nov, [facility] [address] [id number] [address] [place] [address], [place] [address] Sep, [facility] [address] [id number] [address] [place] [address], [place] [address] Sep, [facility] [address] [id number] [address] [place] [id number] Aug, [facility] [address] [facility] [id number] [address] [place] [address] Aug, [facility] [address] [id number] [place] [id number] July, [facility] [address] [id number] [place] [id number] Jun, [facility] [address] [id number] [place] [id number] Apr, [facility] [address] [id number] [place] [id number] Mar, [facility] [address] [facility] [id number] [address] [place] [address] Mar, [facility] [address] [id number] [place] [id number] Mar, [facility] [address] [facility] [id number] [address] [place] [address] Mar, [facility] [address] [id number] [place] [id number] Feb, [facility] [address] [facility] [id number] [address] [place] [address] Feb, [facility] [address] [id number] [place] [id number] Feb, [facility] [address] [facility] [id number] [address] [place] [address] Feb, [facility] [address] [address] [id number] [place] [id number] Oct, [facility] [address] [id number] [place] [id number] Oct, [facility] [address] [id number] [place] [id number] July, [facility] [address] [id number] [place], [place] [id number] July, [facility] [address] [id number] [place] [id number] Jun, [facility] [place] [address] [id number] [place] [id number] Jun, [facility] [place] [address] [id number] [place] [id number] Jun, [facility] [place] [address] [id number] [place] [id number] Mar, [facility] [place] [address] [id number] [place] [id number] Mar, [facility] [address] [id number] [address] [place] [phone] Feb, [facility] [address] [facility] [id number] [address] [place] [phone] Feb, [facility] [address] [facility] [id number] [address] [place] [phone] Jan, [facility] [address] [facility] [id number] [address] [place] [phone] Jan, [facility] [address] [facility] [id number] [address] [place] [phone] Jan, [facility] [address] [facility] [id number] [address] [place] [phone] Jan, [facility] [address] [facility] [id number] [address] [place] [phone] Jan, [facility] [address] [facility] [id number] [address] [place] [phone] Aug, [facility] [address] [facility] [id number] [address] [place] [phone] Apr, IMMUNIZATIONS No Known Immunizations SOCIAL HISTORY [...]
--- OUTSIDE RECORDS SUMMARY | 2019-11-08 13:14 | XMS REPORT ---
Author Author Zana BARROW [facility] eClinicalWorks Address Unknown Phone Unavailable Care Team Providers Care Outpatient Coder Name Role Phone YANCY BARROW CP Unavailable Allergies No Known Allergies Problems [...] Start Date End Date Status Dosage Hydrocodone-Acetaminophen [facility] [address]-68 10-325 MG Orally 4 times a day as needed for pain 1 tablet Results No Known Results Summary Purpose eClinicalWorks Submission
--- OUTSIDE RECORDS SUMMARY | 2019-11-08 13:14 | XMS REPORT ---
Author Author Zana ORTIZ [facility] eClinicalWorks Address Unknown Phone Unavailable Care Team Providers Care Investigation Division Sergeant Name Role Phone AVANI ORTIZ Unavailable Allergies No Known Allergies Problems Problem Type Condition ICD-9 Code Onset Dates Condition Statu s Problem Chronic pain disorder 338.4 Active Problem Hyperlipidemia 272.4 Active Problem Factor V Leiden 289.81 Active Problem Essential hypertension, benign 401.1 Active Problem Venous stasis ulcer of left lower extremity 454.0 Active Problem Obesity, unspecified 278.00 Active Medications Medication Code System Code Instructions Start Date End Date Status Dosage Hydrocodone-Acetaminophen [facility] [address]-67 10-325 MG Orally 4 times a day as needed for pain 1 tablet Results No Known Results Summary Purpose eClinicalWorks Submission
--- OUTSIDE RECORDS SUMMARY | 2019-11-08 13:14 | XMS REPORT ---
Author Author Zana ORTIZ [facility] Address [address] [place] [address] Care Team Providers Care Nail Making Machine Setter Name Role Phone AVANI ORTIZ Unavailable PROBLEMS Type Condition ICD9-CM Code [id number] Code Onset Dates Condition S tatus SNOMED Code Problem Factor V Leiden D68.51 Active 3070 79357 Problem Post-phlebitic syndrome I87.009 Active 86823034 Problem Anticoagulant long-term use Z79.01 Ac tive 146474785 Problem Essential hypertension I10 Active 48251417 Problem Other chronic pain G89.29 Active 8 0506491 Problem Venous stasis ulcers, left I83.029 Act ozzy 439299632 Problem 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
--- OUTSIDE RECORDS SUMMARY | 2019-11-08 13:14 | XMS REPORT ---
Author Zana Vinson Organization eClinicalWorks Address Unknown Phone Unavailable Care Team Providers Care Bridge Gang Worker Name Role Phone CHELSIE PATEL CP Unavailable Allergies No Known Allergies Problems Problem Type Condition Code Onset Dates Condition Statu s Problem Essential hypertension I10 Activ e Problem Other chronic pain G89.29 Active Problem Factor V Leiden D68.51 Active Problem Hyperlipidemia, group D E78.3 Acti ve Medications Medication Code System Code Instructions Start Date End Date Status Dosage Hydrocodone-Acetaminophen [facility] [address]-96 10-325 MG Orally 4 times a day as needed for pain 1 tablet Results No Known Results Summary Purpose eClinicalWorks Submission
--- OUTSIDE RECORDS SUMMARY | 2019-11-08 13:14 | XMS REPORT ---
Author Author Zana ORTIZ [facility] eClinicalWorks Address Unknown Phone Unavailable Care Team Providers Care Diorama Model Maker Name Role Phone AVANI ORTIZ CP Unavailable [...] anomaly Q27.9 Active Medications No Known Medications Results No Known Results Summary Purpose eClinicalWorks Submission
--- OUTSIDE RECORDS SUMMARY | 2019-11-08 13:14 | XMS REPORT ---
Author Author Zana ORTIZ [facility] eClinicalWorks Address Unknown Phone Unavailable Care Team Providers Care Landscape Foreman Name Role Phone AVANI ORTIZ Unavailable Allergies No Known Allergies Problems Problem Type Condition Code Onset Dates Condition Statu s Problem Other chronic pain G89.29 Active Problem [...] Start Date End Date Status Dosage Hydrocodone-Acetaminophen [facility] [address]-50 10-325 MG Orally 4 times a day as needed for pain 1 tablet Results No Known Results Summary Purpose eClinicalWorks Submission
--- OUTSIDE RECORDS SUMMARY | 2019-11-08 13:15 | XMS REPORT ---
Author Zana Vinson Organization eClinicalWorks Address Unknown Phone Unavailable Care Team Providers Care Sorting Cows Worker Name Role Phone CHELSIE PATEL CP Unavailable Allergies No Known Allergies Problems Problem Type Condition Code Onset Dates Condition Statu s Problem Essential hypertension I10 Activ e Problem Other chronic pain G89.29 Active Problem Factor V Leiden D68.51 Active Problem Hyperlipidemia, group D E78.3 Acti ve Medications Medication Code System Code Instructions Start Date End Date Status Dosage Hydrocodone-Acetaminophen [facility] [address]-24 10-325 MG Orally 4 times a day as needed for pain 1 tablet Results No Known Results Summary Purpose eClinicalWorks Submission
--- OUTSIDE RECORDS SUMMARY | 2019-11-08 13:15 | XMS REPORT ---
Author Author Zana ORTIZ [facility] eClinicalWorks Address Unknown Phone Unavailable Care Team Providers Care Thermal Cutting Tracer Machine Operator Name Role Phone AVANI ORTIZ CP Unavailable [...] Coding System Code Date PROTHROMBIN TIME CPT-4 40149 Nov 09, 2015 Results No Known Results Summary Purpose eClinicalWorks Submission
--- OUTSIDE RECORDS SUMMARY | 2019-11-08 13:15 | XMS REPORT ---
Author Author Zana ORTIZ Organization [facility] Address [address] [place] [address] Care Team Providers Care Program Facilitator Name Role Phone AVANI ORTIZ Unavailable PROBLEMS Type Condition ICD9-CM Code [id number] Code Onset Dates Condition S tatus SNOMED Code Problem Factor V Leiden D68.51 Active 3070 85896 Problem Post-phlebitic syndrome I87.009 Active 87125470 Problem Anticoagulant long-term use Z79.01 Ac tive 266569180 Problem Essential hypertension I10 Active 82229844 Problem Other chronic pain G89.29 Active 8 8290080 Problem Venous stasis ulcers, left I83.029 Act ozzy 688148920 Problem 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 18003861 Problem Congenital single kidney Q60.0 Activ e 31343815 Problem Venous anomaly Q27.9 Active 27916 4003 Problem Pure hypercholesterolemia E78.00 Acti ve 688137845 Problem Chronic prescription opiate use Z79.899 Active 030639204 ALLERGIES No Information SOCIAL HISTORY Never Assessed PLAN OF CARE VITAL SIGNS MEDICATIONS No Known Medications RESULTS No Results PROCEDURES No Known [...]
--- OUTSIDE RECORDS SUMMARY | 2019-11-08 13:15 | XMS REPORT ---
Author Author Zana EDDY Organization [facility] Address [address] [place] [address] Care Team Providers Care Orthopedic Tech Name Role Phone SPENCER EDDY Unavailable PROBLEMS Type Condition ICD9-CM Code UND34-QR Code Onset Dates Condition S tatus SNOMED Code Problem Factor V Leiden D68.51 Active 3070 90401 Problem Post-phlebitic syndrome I87.009 Active 33508771 Problem Anticoagulant long-term use Z79.01 Ac tive 458428741 Problem Essential hypertension I10 Active 63110177 Problem Other chronic pain G89.29 Active 8 9899989 Problem Venous stasis ulcers, left I83.029 Act ozzy 130348596 Problem 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 76095094 Problem Congenital single kidney Q60.0 Activ e 01618945 Problem Venous anomaly Q27.9 Active 61517 4003 Problem Pure hypercholesterolemia E78.00 Acti ve 128604358 Problem Chronic prescription opiate use Z79.899 Active [id number] ALLERGIES No Information ENCOUNTERS Encounter Location Date Diagnosis [facility] [address] [facility] [id number] [address] [place] [address] Aug, Other chronic pain G89.29 [facility] [address] [facility] [id number] [address] [place] [address] Aug, Venous stasis ulcers, left I 83.029 [facility] [address] [facility] [id number] [address] [place] [address] July, Other chronic pain G89.29 [facility] [address] [facility] [id number] [address] [place] [address] July, Venous stasis ulcers, left I 83.029 and Snoring R06.83 [facility] [address] [facility] [id number] [address] [place] [address] Jun, Idiopathic chronic gout of m ultiple sites without tophus M1A.09X0 [place] [address] [facility] [id number] [address] [place] [address] Jun, Acute renal insufficiency N2 8.9 [place] [address] [facility] [id number] [address] [place] [address] Jun, Other chronic pain G89.29 [place] [address] [facility] [id number] [address] [place] [address] Jun, Acute renal insufficiency N2 8.[id number] [place] [id number] Jun, Idiopathic chronic gout of multiple site s without tophus M1A.09X0 ; Essential hypertension I10 and Anticoagulant long-term use Z79.01 [place] [address] [address] Jun, Anticoagulant long-term use Z79.01 and Essential hypertension I10 [place] [address] [address] May, Idiopathic chronic gout of m ultiple sites without tophus M1A.09X0 [place] [address] [facility] [id number] [address] [place] [address] May, [place] [address] [place] [id number] [place] [address] May, Essential hypertension I10 ; Pure hypercholesterolemia E78.00 ; Anticoagulant long-term use Z79.01 and Idiopathic chronic gout of multiple sites without tophus M1A.09X0 [place] [address] [place] [id number] [address] [place] [address] May, Other chronic pain G89.29 [place] [address] [place] [id number] [address] [place] [address] May, Anticoagulant long-term use Z79.01 [place] [address] [facility] [id number] [address] [place] [address] May, Chronic prescription opiate use Z79.899 ; Other chronic pain G89.29 ; Essential hypertension I10 ; Factor V Leiden D68.51 ; Anticoagulant long-term use Z79.01 ; Pure hypercholesterolemia E78.00 ; Venous stasis ulcers, left I83.029 ; Idiopathic chronic gout of multiple sites without tophus M1A.09X0 and Cellulitis of left lower extremity L03.116 [facility] [address] [id number] [address] [place] [address] Apr, Other chronic pain G89.29 [place] [address] [facility] [id number] [address] [place] [address] Mar, Other chronic pain G89.29 [place] [address] [facility] [id number] [address] [place] [address] Mar, Factor V Leiden D68.51 ; Pur e hypercholesterolemia E78.00 and Other chronic pain G89.29 [place] [address] [facility] [id number] [address] [place] [address] Feb, Other chronic pain G89.29 [place] [address] [facility] [id number] [address] [place] [address] Jan, Idiopathic chronic gout of m ultiple sites without tophus M1A.09X0 [place] [address] [facility] [id number] [address] [place] [address] Jan, Other chronic pain G89.29 [place] [address] [facility] [id number] [address] [place] [address] Dec, Anticoagulant long-term use Z79.01 ; Factor V Leiden D68.51 and Other chronic pain G89.29 [place] [address] [facility] [id number] [address] [place] [address] Dec, Other chronic pain G89.29 [place] [address] [facility] [id number] [address] [place] [address] Nov, Other chronic pain G89.29 [facility] [address] [facility] [id number] [address] [place] [address] Oct, Other chronic pain G89.29 [facility] [address] [facility] [id number] [address] [place] [address] Sep, Anticoagulant long-term use Z79.01 [facility] [address] [facility] [id number] [address] [place] [address] Sep, Chronic prescription opiate use Z79.899 ; Anticoagulant long-term use Z79.01 ; Essential hypertension I10 ; Pure hypercholesterolemia E78.00 ; Factor V Leiden D68.51 ; Venous stasis ulcers, left I83.029 ; Other chronic pain G89.29 and Idiopathic chronic gout of multiple sites without tophus M1A.09X0 [place] [address] [facility] [id number] [address] [place] [address] Aug, Anticoagulant long-term use Z79.01 [place] [address] [facility] [id number] [address] [place] [address] Aug, Other chronic pain G89.29 [place] [address] [facility] [id number] [address] [place] [address] Aug, Essential hypertension I10 a nd Factor V Leiden D68.[address] [id number] [place] [address] [id number] Aug, Acute right ankle pain M25.571 and Tendo nitis of ankle M77.50 [place] [address] [facility] [id number] [address] [place] [address] Aug, [place] [address] [facility] [id number] [address] [place] [address] July, Other chronic pain G89.29 [place] [address] [facility] [id number] [address] [place] [address] Jun, Other chronic pain G89.29 [place] [address] [facility] [id number] [address] [place] [address] Jun, Other chronic pain G89.29 [facility] [address] [facility] [id number] [address] [place], [place] [address] Jun, Anticoagulant long-term use Z79.01 [facility] [address] [facility] [id number] [address] [place] [address] May, Other chronic pain G89.29 [facility] [address] [place] [id number] [address] [place] [address] May, Anticoagulant long-term use Z79.01 [place] [address] [place] [id number] [address] [place] [address] May, Other chronic pain G89.29 [place] [address] [place] [id number] [address] [place] [address] Apr, Anticoagulant long-term use Z79.01 [place] [address] [place] [id number] [address] [place] [address] Apr, Other chronic pain G89.29 [place] [address] [place] [id number] [address] [place] [address] Apr, Anticoagulant long-term use Z79.01 and Pure hypercholesterolemia E78.00 [place] [address] [place] [id number] [address] [place] [address] Mar, [place] [address] [facility] [id number] [address] [place] [address] Mar, Anticoagulant long-term use Z79.01 [place] [address] [facility] [id number] [address] [place] [address] Mar, Other chronic pain G89.29 [facility] [address] [place] [id number] [address] [place] [address] Feb, Essential hypertension I10 ; Chronic prescription opiate use Z79.899 ; Other chronic pain G89.29 ; Screening Z13.9 ; Factor V Leiden D68.51 ; Anticoagulant long-term use Z79.01 ; Venous stasis dermatitis of left lower extremity I83.12 and Pure hypercholesterolemia E78.00 [facility] [address] [address] 14 Jan, 2016 Anticoagulant long-term use Z79.01 [facility] [address] [facility] [id number] [address] [place] [address] Jan, Anticoagulant long-term use Z79.01 [facility] [address] [facility] [id number] [address] [place] [address] 09 Jan, 2016 [facility] [address] [facility] [id number] [place] [address] Jan, [facility] [address] [place] [id number] [place] [address] Dec, [facility] [address] [address] Nov, [facility] [id number] [place] [address] Oct, Anticoagulant long-term use Z79.01 [facility] [address] [place] [id number] [address] [place] [address] Oct, [facility] [address] [place] [id number] [address] [place] [address] Oct, Anticoagulant long-term use Z79.01 [facility] [address] [place] [id number] [address] [place] [address] Sep, [facility] [address] [place] [id number] [address] [place] [address] Aug, [facility] [address] [address] Aug, Chronic prescription opiate use Z79.899 ; Other chronic pain G89.29 ; Essential hypertension I10 and Pure hypercholesterolemia E78.0 [facility] [address] [place] [id number] [address] [place] [address] July, Hyperlipidemia, group D E78. 3 and Anticoagulant long-term use Z79.01 [facility] [address] [facility] [id number] [address] [place] [address] July, Hyperlipidemia, group D E78. 3 ; Essential hypertension I10 and Factor V Leiden D68.51 [facility] [address] [facility] [id number] [address] [place] [address] July, Essential hypertension I10 [facility] [address] [facility] [id number] [address] [place] [address] Jun, Hyperlipidemia, group D E78. 3 [place] [address] [facility] [id number] [place] [address] Jun, Factor V Leiden D68.51 [place] [address] [facility] [id number] [address] [place] [address] May, Factor V Leiden D68.51 ; Hyp erlipidemia, group D E78.3 ; Essential hypertension I10 ; Other chronic pain G89.29 and Anticoagulant long-term use Z79.01 [place] [address] [facility] [id number] [address] [place] [address] May, Anticoagulant long-term use Z79.01 [place] [address] [facility] [id number] [address] [place] [address] May, Anticoagulant long-term use Z79.01 [facility] [address] [facility] [id number] [address] [place] [address] May, [facility] [address] [facility] [id number] [address] [place] [address] Apr, [facility] [address] [facility] [id number] [address] [place] [address] Mar, [place] [address] [facility] [id number] [address] [place] [address] Mar, [facility] [address] [facility] [id number] [address] [place] [address] 17 Feb, 2015 Anticoagulant long-term use Z79.01 [facility] [address] [address] 16 Feb, 2015 Chronic prescription opiate use Z79.899 ; Other chronic pain G89.29 ; Hyperlipidemia, group D E78.3 ; Factor V Leiden D68.51 and Anticoagulant long- term use Z79.01 [facility] [address] [address] Feb, [facility] [address] [address] Jan, [place] [address] [address] Dec, Hyperlipidemia, unspecified E78.5 [place] [address] [address] Dec, Cellulitis of left lower ext remity L03.116 ; Venous stasis ulcers, left I83.029 and Factor V Leiden D68.51 [place] [address] [address] Dec, Hyperlipidemia 272.4 and Fac tor V Leiden 289.81 [place] [address] [address] Dec, [facility] [address] [address] Nov, Factor V Leiden 289.81 [place] [address] [place] [id number] [address] [place] [address] Nov, [place] [address] [address] Nov, [facility] [address] [address] Nov, [facility] [address] [address] Oct, [facility] [address] [facility] [id number] [address] [place] [address] Oct, Hyperlipidemia 272.4 ; Chron ic pain disorder 338.4 ; Venous stasis ulcer of left lower extremity 454.0 and Factor V Leiden 289.81 [facility] [address] [facility] [id number] [address] [place] [address] Sep, [facility] [address] [facility] [id number] [place] [address] Sep, [facility] [address] [facility] [id number] [address] [place] [address] Sep, Hyperlipidemia 272.4 and Fac tor V Leiden 289.81 [facility] [address] [place] [id number] [address] [place] [address] Aug, [facility] [address] [facility] [id number] [address] [place] [address] Aug, Factor V Leiden 289.81 [facility] [address] [facility] [id number] [address] [place] [address] July, [facility] [address] [place] [id number] [address] [place] [address] July, Essential hypertension, fito gn 401.1 ; Factor V Leiden 289.81 ; Chronic pain disorder 338.4 ; Hyperlipidemia 272.4 and Venous stasis ulcer of left lower extremity 454.0 [facility] [address] [facility] [id number] [address] [place] [address] Jun, [facility] [address] [facility] [id number] [address] [place] [address] Jun, [facility] [address] [place] [id number] [address] [place] [address] May, [facility] [address] [place] [id number] [address] [place] [address] May, [facility] [address] [id number] [address] [place] [address], [place] [address] 20 Apr, 2014 [facility] [address] [id number] [address] [place] [address], [place] [address] 20 Apr, 2014 [facility] [address] [id number] [address] [place] [address], [place] [address] 18 Apr, 2014 [facility] [address] [id number] [address] [place] [address], [place] [address] 18 Apr, 2014 [facility] [address] [id number] [address] [place] [address], [place] [address] Apr, [facility] [address] [id number] [address] [place] [address], [place] [address] 13 Apr, 2014 [facility] [address] [id number] [address] [place] [address], [place] [address] 15 Mar, 2014 [facility] [address] [id number] [address] [place] [address], [place] [address] Mar, [facility] [address] [id number] [address] [place] [address], [place] [address] Mar, [facility] [address] [id number] [address] [place] [address], [place] [address] Mar, [facility] [address] [id number] [address] [place] [address], [place] [address] 17 Feb, 2014 [facility] [address] [id number] [address] [place] [address], [place] [address] 17 Feb, 2014 [facility] [address] [id number] [address] [place] [address], [place] [address] 16 Feb, 2014 [facility] [address] [id number] [address] [place] [address], [place] [address] Feb, [facility] [address] [id number] [address] [place] [address], [place] [address] 24 Jan, 2014 [facility] [address] [id number] [address] [place] [address], [place] [address] Jan, [facility] [address] [id number] [address] [place] [address], [place] [address] Jan, [facility] [address] [id number] [address] [place] [address], [place] [address] Jan, [facility] [address] [id number] [address] [place] [address], [place] [address] Jan, [facility] [address] [id number] [address] [place] [address], [place] [address] Jan, [facility] [address] [id number] [address] [place] [address], [place] [address] Dec, [facility] [address] [id number] [address] [place] [address], [place] [address] Dec, [facility] [address] [id number] [address] [place] [address], [place] [address] Oct, [facility] [address] [id number] [address] [place] [address], [place] [address] Oct, [facility] [address] [id number] [address] [place] [address], [place] [address] Sep, [facility] [address] [id number] [address] [place] [address], [place] [address] Sep, [facility] [address] [id number] [address] [place] [address], [place] [address] Sep, [facility] [address] [id number] [address] [place] [address], [place] [address] Sep, [facility] [address] [id number] [address] [place] [address], [place] [address] Aug, [facility] [address] [id number] [address] [place] [address], [place] [address] Aug, [facility] [address] [id number] [address] [place] [address], [place] [address] July, [facility] [address] [id number] [address] [place] [address], [place] [address] July, [facility] [address] [id number] [address] [place] [address], [place] [address] Jun, [facility] [address] [id number] [address] [place] [address], [place] [id number] Jun, [facility] [address] [id number] [address] [place] [address], [place] [id number] May, [facility] [address] [id number] [address] [place] [address], [place] [id number] May, [facility] [address] [id number] [address] [place] [address], [place] [id number] Apr, [facility] [address] [id number] [address] [place] [address], [place] [id number] Apr, [facility] [address] [id number] [address] [place] [address], [place] [id number] Mar, [facility] [address] [id number] [address] [place] [address], [place] [id number] Mar, [facility] [address] [id number] [address] [place] [address], [place] [id number] Jan, [facility] [address] [id number] [address] [place] [address], [place] [id number] Jan, [facility] [address] [id number] [address] [place] [address], [place] [id number] Jan, [facility] [address] [id number] [address] [place] [address], [place] [id number] Jan, [facility] [address] [id number] [address] [place] [address], [place] [id number] Jan, [facility] [address] [id number] [address] [place] [address], [place] [id number] Dec, [facility] [address] [id number] [address] [place] [address], [place] [id number] Dec, [facility] [address] [id number] [address] [place] [address], [place] [id number] Dec, [facility] [address] [id number] [address] [place] [address], [place] [id number] Nov, [facility] [address] [id number] [address] [place] [address], [place] [id number] Nov, [facility] [address] [id number] [address] [place] [address], [place] [id number] Sep, [facility] [address] [id number] [address] [place] [address], [place] [id number] Sep, [facility] [address] [id number] [address] [place] [address], [place] [id number] Aug, [facility] [address] [id number] [address] [place] [address], [place] [id number] Aug, [facility] [address] [id number] [place] [id number] July, [facility] [address] [id number] [place] [id number] Jun, [facility] [address] [id number] [place] [id number] Apr, [facility] [address] [id number] [place] [id number] Mar, [facility] [address] [id number] [address] [place] [address], [place] [id number] Mar, [facility] [address] [id number] [place] [id number] Mar, [facility] [address] [id number] [address] [place] [id number] Mar, [facility] [address] [id number] [place] [id number] Feb, [facility] [address] [id number] [address] [place] [address], [place] [id number] Feb, [facility] [address] [id number] [place] [id number] Feb, [facility] [address] [facility] [id number] [address] [place] [id number] Feb, [facility] [address] [id number] [place] [phone] Oct, [facility] [address] [id number] [place] [id number] Oct, [facility] [address] [id number] [place], [place] [id number] July, [facility] [address] [id number] [place], [place] [id number] July, [facility] [address] [id number] [place] [id number] Jun, [facility] [address] [id number] [place] [id number] Jun, [facility] [address] [id number] [place], [place] [id number] Jun, [facility] [address] [id number] [place], [place] [id number] Mar, [facility] [address] [id number] [place], [place] [id number] Mar, [facility] [address] [facility] [id number] [address] [place] [phone] Feb, [facility] [address] [facility] [id number] [address] [place] [phone] Feb, [facility] [address] [facility] [id number] [address] [place] [id number] Jan, [facility] [address] [facility] [id number] [address] [place] [phone] Jan, [facility] [address] [facility] [id number] [address] [place] [id number] Jan, [facility] [address] [facility] [id number] [address] [place] [phone] Jan, [facility] [address] [facility] [id number] [address] [place] [phone] Jan, [facility] [address] [facility] [id number] [address] [place] [id number] 14 Aug, 2010 [facility] [address] [facility] [id number] [address] [place] [id number] 17 Apr, 2010 IMMUNIZATIONS No Known Immunizations SOCIAL HISTORY Never Assessed REASON FOR VISIT Controlled Medication Refill PLAN OF CARE VITAL SIGNS MEDICATIONS Medication Instructions Dosage Frequency Start Date End Date Duration S sahil Hydrocodone-Acetaminophen 10-325 MG Orally 4 times a day as needed for pain 1 tablet Mar, 28 days Active RESULTS No Results PROCEDURES [...]
--- OUTSIDE RECORDS SUMMARY | 2019-11-08 13:15 | XMS REPORT ---
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 Active 68119001 Problem Anticoagulant long-term use Z79.01 Ac tive 364738487 Problem Essential hypertension I10 Active 36558442 Problem Other chronic pain G89.29 Active 8 8406728 Problem Venous stasis ulcers, left I83.029 Act ozzy 869282336 Problem 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 71685251 Problem Congenital single kidney Q60.0 Activ e 15576583 Problem Venous anomaly Q27.9 Active 47597 4003 Problem Pure hypercholesterolemia E78.00 Acti ve 493414154 Problem Chronic prescription opiate use Z79.899 Active 344448255 ALLERGIES Unknown Allergies SOCIAL HISTORY No smoking Hx information available PLAN OF CARE VITAL SIGNS MEDICATIONS Unknown Medications RESULTS Name Result Date Reference Range CBC 2016-04-27 WBC 6.5 3.4-10.8 RBC 4.69 4.14-5.80 Hemoglobin 14.9 12.6-17.7 Hematocrit 42.2 37.5-51.0 MCV 90 79-97 MCH 31.8 26.6-33.0 MCHC 35.3 31.5-35.7 RDW 13.2 12.3-15.4 Platelets 196 150-379 Neutrophils 74 Lymphs 17 Monocytes 8 Eos 1 Basos 0 Neutrophils (Absolute) 4.8 1.4-7.0 Lymphs (Absolute) 1.1 0.7-3.1 Monocytes(Absolute) 0.5 0.1-0.9 Eos (Absolute) 0.1 0.0-0.4 Baso (Absolute) 0.0 0.0-0.2 Immature Granulocytes 0 Immature Grans (Abs) 0.0 0.0-0.1 LIPID PANEL 2016-04-27 Cholesterol, Total 173 100-199 Triglycerides 150 0-149 HDL Cholesterol 41 >39 VLDL Cholesterol Tolu 30 5-40 LDL Cholesterol Calc 102 0-99 Comment: CMP 2016-04-27 Glucose, Serum 93 65-99 BUN 18 6-20 Creatinine, Serum 1.19 0.76-1.27 eGFR If NonAfricn Am 79 >59 eGFR If Africn Am 91 >59 BUN/Creatinine Ratio 15 8-19 Sodium, Serum 141 134-144 Potassium, Serum 4.6 3.5-5.2 Chloride, Serum 100 96-106 Carbon Dioxide, Total 25 18-29 Calcium, Serum 9.6 8.7-10.2 Protein, Total, Serum 7.3 6.0-8.5 Albumin, Serum 4.6 3.5-5.5 Globulin, Total 2.7 1.5-4.5 A/G Ratio 1.7 1.1-2.5 Bilirubin, Total 0.7 0.0-1.2 Alkaline Phosphatase, S 69 39-117 AST (SGOT) 24 0-40 ALT (SGPT) 29 0-44 INR (IN HOUSE) 2016-04-27 INR 2.0 1.10 - 3.30 PREVIOUS INR 2.4 CURRENT COUMADIN DOSE 10 mg qd NEW COUMADIN DOSE Lot # [id number] Exp date 01/2017 PROCEDURES Procedure Date Ordered Related Diagnosis Body Site COMPLETE CBC W/AUTO DIFF WBC Apr 27, 2016 LIPID PANEL Apr 27, 2016 PROTHROMBIN TIME Apr 27, 2016 COMPREHEN METABOLIC PANEL Apr 27, 2016 VENIPUNCT, ROUTINE* Apr 27, 2016 IMMUNIZATIONS No Known Immunizations
--- OUTSIDE RECORDS SUMMARY | 2019-11-08 13:15 | XMS REPORT ---
Author Zana Cherry Organization [employer] Address Unknown Phone Unavailable Care Team Providers Care Air Brush Operator Name Role Phone DIXIE MITCHELL CP Unavailable Allergies No Known Allergies Problems [...] Start Date End Date Status Dosage Hydrocodone-Acetaminophen [facility] [id number] 10-325 MG Orally 4 times a day as needed for pain 1 tablet Results No Known Results Summary Purpose [employer] Submission
--- OUTSIDE RECORDS SUMMARY | 2019-11-08 13:15 | XMS REPORT ---
Author Author Zana ORTIZ Organization [facility] Address [address] [place] [address] Care Team Providers Care Hard Candy Spinner Name Role Phone DIANA AVANI Unavailable PROBLEMS Type Condition ICD9-CM Code MEL90-YY Code Onset Dates Condition S tatus SNOMED Code Problem Factor V Leiden D68.51 Active 3070 44489 Problem Post-phlebitic syndrome I87.009 Active 97881499 Problem Anticoagulant long-term use Z79.01 Ac tive 563098915 Problem Essential hypertension I10 Active 17034625 Problem Other chronic pain G89.29 Active 8 7725617 Problem Venous stasis ulcers, left I83.029 Act ozzy 358462036 Problem 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 79831268 Problem Congenital single kidney Q60.0 Activ e 93123790 Problem Venous anomaly Q27.9 Active 90495 4003 Problem Pure hypercholesterolemia E78.00 Acti ve 962133938 Problem Chronic prescription opiate use Z79.899 Active [id number] ALLERGIES No Information ENCOUNTERS Encounter Location Date Diagnosis [place] [address] [address] [facility] [id number] [address] [place] [address] Aug, [place] [address] [facility] [id number] [address] [place] [address] July, Other chronic pain G89.29 [facility] [address] [facility] [id number] [address] [place] [id number] 18 Jul, 2017 Venous stasis ulcers, left I 83.029 and Snoring R06.83 [facility] [address] [facility] [id number] [address] [place] [address] Jun, Idiopathic chronic gout of m ultiple sites without tophus M1A.09X0 [place] [address] [facility] [id number] [address] [place] [address] Jun, Acute renal insufficiency N2 8.9 [facility] [address] [facility] [id number] [address] [place] [address] Jun, Other chronic pain G89.29 [facility] [address] [facility] [id number] [address] [place] [address] Jun, Acute renal insufficiency N2 8.9 [facility] [id number] [place] [address] [id number] Jun, Idiopathic chronic gout of multiple site s without tophus M1A.09X0 ; Essential hypertension I10 and Anticoagulant long-term use Z79.01 [place] [address] [facility] [id number] [address] [place] [address] Jun, Anticoagulant long-term use Z79.01 and Essential hypertension I10 [place] [address] [facility] [id number] [address] [place] [address] May, Idiopathic chronic gout of m ultiple sites without tophus M1A.09X0 [place] [address] [facility] [id number] [address] [place] [address] May, [place] [address] [facility] [id number] [address] [place] [address] May, Essential hypertension I10 ; Pure hypercholesterolemia E78.00 ; Anticoagulant long-term use Z79.01 and Idiopathic chronic gout of multiple sites without tophus M1A.09X0 [place] [address] [facility] [id number] [address] [place] [address] May, Other chronic pain G89.29 [place] [address] [facility] [id number] [address] [place] [address] May, Anticoagulant long-term use Z79.01 [place] [address] [facility] [id number] [address] [place] [address] May, Chronic prescription opiate use Z79.899 ; Other chronic pain G89.29 ; Essential hypertension I10 ; Factor V Leiden D68.51 ; Anticoagulant long-term use Z79.01 ; Pure hypercholesterolemia E78.00 ; Venous stasis ulcers, left I83.029 ; Idiopathic chronic gout of multiple sites without tophus M1A.09X0 and Cellulitis of left lower extremity L03.116 [facility] [address] [id number] [address] [place] [address] Apr, Other chronic pain G89.29 [place] [address] [id number] [address] [place] [address] Mar, Other chronic pain G89.29 [place] [address] [id number] [address] [place] [address] Mar, Factor V Leiden D68.51 ; Pur e hypercholesterolemia E78.00 and Other chronic pain G89.29 [place] [address] [id number] [address] [place] [address] Feb, Other chronic pain G89.29 [place] [address] [id number] [address] [place] [address] Jan, Idiopathic chronic gout of m ultiple sites without tophus M1A.09X0 [place] [address] [id number] [address] [place] [address] Jan, Other chronic pain G89.29 [place] [address] [id number] [address] [place] [address] Dec, Anticoagulant long-term use Z79.01 ; Factor V Leiden D68.51 and Other chronic pain G89.29 [place] [address] [id number] [address] [place] [address] Dec, Other chronic pain G89.29 [place] [address] [id number] [address] [place] [address] Nov, Other chronic pain G89.29 [place] [address] [facility] [id number] [address] [place] [address] Oct, Other chronic pain G89.29 [facility] [address] [facility] [id number] [address] [place] [address] Sep, Anticoagulant long-term use Z79.01 [facility] [address] [facility] [id number] [address] [place] [address] Sep, Chronic prescription opiate use Z79.899 ; Anticoagulant long-term use Z79.01 ; Essential hypertension I10 ; Pure hypercholesterolemia E78.00 ; Factor V Leiden D68.51 ; Venous stasis ulcers, left I83.029 ; Other chronic pain G89.29 and Idiopathic chronic gout of multiple sites without tophus M1A.09X0 [place] [address] [facility] [id number] [address] [place] [address] Aug, Anticoagulant long-term use Z79.01 [place] [address] [facility] [id number] [address] [place] [address] Aug, Other chronic pain G89.29 [place] [address] [facility] [id number] [address] [place] [address] Aug, Essential hypertension I10 a nd Factor V Leiden D68.[id number] [place] [address] [id number] Aug, Acute right ankle pain M25.571 and Tendo nitis of ankle M77.50 [place] [address] [facility] [id number] [address] [place] [address] Aug, [place] [address] [facility] [id number] [address] [place] [address] July, Other chronic pain G89.29 [place] [address] [facility] [id number] [address] [place] [address] Jun, Other chronic pain G89.29 [place] [address] [facility] [id number] [address] [place] [address] Jun, Other chronic pain G89.29 [place] [address] [facility] [id number] [address] [place] [address] Jun, Anticoagulant long-term use Z79.01 [facility] [address] [facility] [id number] [address] [place] [address] May, Other chronic pain G89.29 [facility] [address] [facility] [id number] [address] [place] [address] May, Anticoagulant long-term use Z79.01 [facility] [address] [facility] [id number] [address] [place] [address] May, Other chronic pain G89.29 [place] [address] [facility] [id number] [address] [place] [address] Apr, Anticoagulant long-term use Z79.01 [place] [address] [facility] [id number] [address] [place] [address] Apr, Other chronic pain G89.29 [place] [address] [facility] [id number] [address] [place] [address] Apr, Anticoagulant long-term use Z79.01 and Pure hypercholesterolemia E78.00 [place] [id number] [place] [address] Mar, [place] [address] [facility] [id number] [address] [place] [address] Mar, Anticoagulant long-term use Z79.01 [place] [address] [facility] [id number] [address] [place] [address] Mar, Other chronic pain G89.29 [place] [address] [facility] [id number] [address] [place] [address] Feb, Essential hypertension I10 ; Chronic prescription opiate use Z79.899 ; Other chronic pain G89.29 ; Screening Z13.9 ; Factor V Leiden D68.51 ; Anticoagulant long-term use Z79.01 ; Venous stasis dermatitis of left lower extremity I83.12 and Pure hypercholesterolemia E78.00 [place] [address] [facility] [id number] [address] [place] [address] 14 Jan, 2016 Anticoagulant long-term use Z79.01 [facility] [address] [facility] [id number] [address] [place] [address] Jan, Anticoagulant long-term use Z79.01 [facility] [address] [facility] [id number] [address] [place] [id number] 09 Jan, 2016 [facility] [address] [facility] [id number] [place] [address] Jan, [facility] [address] [facility] [id number] [address] [place] [address] Dec, [facility] [address] [facility] [id number] [address] [place] [id number] Nov, [facility] [address] [facility] [id number] [address] [place] [address] Oct, Anticoagulant long-term use Z79.01 [facility] [address] [facility] [id number] [address] [place] [id number] Oct, [facility] [address] [facility] [id number] [address] [place] [address] Oct, Anticoagulant long-term use Z79.01 [facility] [address] [facility] [id number] [address] [place] [id number] Sep, [facility] [address] [facility] [id number] [address] [place] [address] Aug, [facility] [address] [facility] [id number] [address] [place] [address] Aug, Chronic prescription opiate use Z79.899 ; Other chronic pain G89.29 ; Essential hypertension I10 and Pure hypercholesterolemia E78.0 [facility] [address] [facility] [id number] [address] [place] [address] July, Hyperlipidemia, group D E78. 3 and Anticoagulant long-term use Z79.01 [facility] [address] [facility] [id number] [address] [place] [address] July, Hyperlipidemia, group D E78. 3 ; Essential hypertension I10 and Factor V Leiden D68.51 [facility] [address] [facility] [id number] [address] [place] [address] July, Essential hypertension I10 [facility] [address] [place] [id number] [address] [place] [address] Jun, Hyperlipidemia, group D E78. 3 [facility] [address] [facility] [id number] [address] [place] [address] Jun, Factor V Leiden D68.51 [facility] [address] [facility] [id number] [address] [place] [address] May, Factor V Leiden D68.51 ; Hyp erlipidemia, group D E78.3 ; Essential hypertension I10 ; Other chronic pain G89.29 and Anticoagulant long-term use Z79.01 [facility] [address] [facility] [id number] [address] [place] [address] May, Anticoagulant long-term use Z79.01 [place] [address] [facility] [id number] [address] [place] [address] May, Anticoagulant long-term use Z79.01 [facility] [address] [facility] [id number] [address] [place] [address] May, [facility] [address] [facility] [id number] [address] [place] [id number] Apr, [facility] [address] [facility] [id number] [address] [place] [id number] Mar, [facility] [address] [place] [id number] [address] [place] [address] Mar, [facility] [address] [facility] [id number] [address] [place] [address] Feb, Anticoagulant long-term use Z79.01 [facility] [address] [facility] [id number] [address] [place] [address] Feb, Chronic prescription opiate use Z79.899 ; Other chronic pain G89.29 ; Hyperlipidemia, group D E78.3 ; Factor V Leiden D68.51 and Anticoagulant long- term use Z79.01 [facility] [address] [place] [id number] [address] [place] [address] Feb, [place] [address] [address] Jan, [place] [address] [address] Dec, Hyperlipidemia, unspecified E78.5 [place] [address] [address] Dec, Cellulitis of left lower ext remity L03.116 ; Venous stasis ulcers, left I83.029 and Factor V Leiden D68.51 [place] [address] [place] [id number] [address] [place] [address] Dec, Hyperlipidemia 272.4 and Fac tor V Leiden 289.81 [place] [address] [address] Dec, [place] [address] [place] [id number] [address] [place] [address] Nov, Factor V Leiden 289.81 [place] [address] [place] [id number] [address] [place] [address] Nov, [place] [address] [place] [id number] [address] [place] [address] Nov, [place] [address] [address] Nov, [place] [address] [place] [id number] [address] [place] [address] Oct, [place] [address] [address] Oct, Hyperlipidemia 272.4 ; Chron ic pain disorder 338.4 ; Venous stasis ulcer of left lower extremity 454.0 and Factor V Leiden 289.81 [facility] [address] [facility] [id number] [address] [place] [address] Sep, [facility] [address] [facility] [id number] [address] [place] [id number] Sep, [facility] [address] [facility] [id number] [address] [place] [address] Sep, Hyperlipidemia 272.4 and Fac tor V Leiden 289.81 [facility] [address] [facility] [id number] [address] [place] [address] Aug, [facility] [address] [facility] [id number] [place] [address] Aug, Factor V Leiden 289.81 [facility] [address] [place] [id number] [address] [place] [address] July, [facility] [address] [facility] [id number] [address] [place] [address] July, Essential hypertension, fito gn 401.1 ; Factor V Leiden 289.81 ; Chronic pain disorder 338.4 ; Hyperlipidemia 272.4 and Venous stasis ulcer of left lower extremity 454.0 [facility] [address] [place] [id number] [address] [place] [address] Jun, [facility] [address] [facility] [id number] [address] [place] [id number] Jun, [facility] [address] [facility] [id number] [address] [place] [address] May, [facility] [address] [place] [id number] [address] [place] [id number] May, [facility] [address] [facility] [id number] [address] [place] [address] Apr, [facility] [address] [place] [id number] [address] [place] [id number] 20 Apr, 2014 [facility] [address] [id number] [address] [place] [address], [place] [address] 18 Apr, 2014 [facility] [address] [id number] [address] [place] [address], [place] [address] 18 Apr, 2014 [facility] [address] [id number] [address] [place] [address], [place] [address] 13 Apr, 2014 [facility] [address] [id number] [address] [place] [address], [place] [address] Apr, [facility] [address] [id number] [address] [place] [address], [place] [address] 15 Mar, 2014 [facility] [address] [id number] [address] [place] [address], [place] [address] Mar, [facility] [address] [id number] [address] [place] [address], [place] [address] Mar, [facility] [address] [id number] [address] [place] [address], [place] [address] Mar, [facility] [address] [id number] [address] [place] [address], [place] [address] Feb, [facility] [address] [id number] [address] [place] [address], [place] [address] Feb, [facility] [address] [id number] [address] [place] [address], [place] [address] 16 Feb, 2014 [facility] [address] [id number] [address] [place] [address], [place] [address] 16 Feb, 2014 [facility] [address] [id number] [address] [place] [address], [place] [address] 24 Jan, 2014 [facility] [address] [id number] [address] [place] [address], [place] [address] Jan, [facility] [address] [id number] [address] [place] [address], [place] [address] Jan, [facility] [address] [id number] [address] [place] [address], [place] [address] Jan, [facility] [address] [id number] [address] [place] [address], [place] [address] Jan, [facility] [address] [id number] [address] [place] [address], [place] [address] Jan, [facility] [address] [id number] [address] [place] [address], [place] [address] Dec, [facility] [address] [id number] [address] [place] [address], [place] [address] Dec, [facility] [address] [id number] [address] [place] [address], [place] [address] Oct, [facility] [address] [id number] [address] [place] [address], [place] [address] Oct, [facility] [address] [id number] [address] [place] [address], [place] [address] Sep, [facility] [address] [id number] [address] [place] [address], [place] [address] Sep, [facility] [address] [id number] [address] [place] [address], [place] [address] Sep, [facility] [address] [id number] [address] [place] [address], [place] [address] Sep, [facility] [address] [id number] [address] [place] [address], [place] [address] Aug, [facility] [address] [id number] [address] [place] [address], [place] [address] Aug, [facility] [address] [id number] [address] [place] [address], [place] [address] July, [facility] [address] [id number] [address] [place] [address], [place] [address] July, [facility] [address] [id number] [address] [place] [address], [place] [address] Jun, [facility] [address] [id number] [address] [place] [address], [place] [address] Jun, [facility] [address] [id number] [address] [place] [address], [place] [address] May, [facility] [address] [id number] [address] [place] [address], [place] [address] May, [facility] [address] [id number] [address] [place] [address], [place] [address] Apr, [facility] [address] [id number] [address] [place] [address], [place] [address] Apr, [facility] [address] [id number] [address] [place] [address], [place] [address] Mar, [facility] [address] [id number] [address] [place] [address], [place] [address] Mar, [facility] [address] [id number] [address] [place] [address], [place] [address] Jan, [facility] [address] [id number] [address] [place] [address], [place] [address] Jan, [facility] [address] [id number] [address] [place] [address], [place] [address] Jan, [facility] [address] [id number] [address] [place] [address], [place] [address] Jan, [facility] [address] [id number] [address] [place] [address], [place] [address] Jan, [facility] [address] [id number] [address] [place] [address], [place] [address] Dec, [facility] [address] [id number] [address] [place] [address], [place] [address] Dec, [facility] [address] [id number] [address] [place] [address], [place] [address] Dec, [facility] [address] [id number] [address] [place] [id number] Nov, [facility] [address] [id number] [address] [place] [id number] Nov, [facility] [address] [id number] [address] [place] [id number] Sep, [facility] [address] [id number] [address] [place] [id number] Sep, [facility] [address] [id number] [address] [place] [id number] Aug, [facility] [address] [id number] [address] [place] [id number] Aug, [facility] [address] [id number] [id number] July, [facility] [address] [id number] [place] [id number] Jun, [facility] [address] [id number] [place] [id number] Apr, [facility] [address] [id number] [place] [id number] Mar, [facility] [address] [id number] [address] [place] [id number] Mar, [facility] [address] [id number] [place] [id number] Mar, [facility] [address] [id number] [address] [place] [id number] Mar, [facility] [address] [id number] [place] [id number] Feb, [facility] [address] [facility] [id number] [address] [place] [id number] Feb, [facility] [address] [id number] [place] [id number] Feb, [facility] [address] [facility] [id number] [address] [place] [id number] Feb, [facility] [address] [id number] [place] [id number] Oct, [facility] [address] [id number] [place] [id number] Oct, [facility] [address] [id number] [place] [id number] July, [facility] [address] [id number] [place] [id number] July, [facility] [address] [id number] [place] [id number] Jun, [facility] [address] [id number] [place] [id number] Jun, [facility] [address] [id number] [place] [id number] Jun, [facility] [address] [id number] [place] [id number] Mar, [facility] [address] [id number] [place] [id number] Mar, [facility] [address] [facility] [id number] [address] [place] [id number] Feb, [facility] [address] [facility] [id number] [address] [place] [id number] Feb, [facility] [address] [facility] [id number] [address] [place] [id number] Jan, [facility] [address] [facility] [id number] [address] [place] [id number] Jan, [facility] [address] [facility] [id number] [address] [place] [id number] Jan, [facility] [address] [facility] [id number] [address] [place] [id number] Jan, [facility] [address] [facility] [id number] [address] [place] [id number] Jan, [facility] [address] [facility] [id number] [address] [place] [id number] Aug, [facility] [address] [facility] [id number] [address] [place] [address] Apr, IMMUNIZATIONS No Known Immunizations SOCIAL HISTORY [...]
--- OUTSIDE RECORDS SUMMARY | 2019-11-08 13:15 | XMS REPORT ---
Author Author Zana ORTIZ Organization [facility] Address [address] [place] [address] Care Team Providers Care Corporate Communications Manager Name Role Phone DIANADAVID TRAVISHANY Unavailable PROBLEMS Type Condition ICD9-CM Code BZF53-GV Code Onset Dates Condition S tatus SNOMED Code Problem Factor V Leiden D68.51 Active 3070 04958 Problem Post-phlebitic syndrome I87.009 Active 19811586 Problem Anticoagulant long-term use Z79.01 Ac tive 003822955 Problem Essential hypertension I10 Active 69568199 Problem Other chronic pain G89.29 Active 8 5181281 Problem Venous stasis ulcers, left I83.029 Act ozzy 751302480 Problem 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 63930747 Problem Congenital single kidney Q60.0 Activ e 71912207 Problem Venous anomaly Q27.9 Active 84492 4003 Problem Pure hypercholesterolemia E78.00 Acti ve 562220913 Problem Chronic prescription opiate use Z79.899 Active 622984095 ALLERGIES Substance Reaction Event Type Date Status Tetanus Unknown Drug Allergy Sep, Active Morphine Sulfate Unknown Drug Allergy Sep, Active Amoxicillin Unknown Drug Allergy Sep, Active ENCOUNTERS Encounter Location Date Diagnosis [place] [id number] [facility] [id number] [address] [place] [address] May, Idiopathic chronic gout of m ultiple sites without tophus M1A.09X0 [facility] [address] [facility] [id number] [address] [place] [address] May, [place] [address] [facility] [id number] [address] [place] [address] May, Essential hypertension I10 ; Pure hypercholesterolemia E78.00 ; Anticoagulant long-term use Z79.01 and Idiopathic chronic gout of multiple sites without tophus M1A.09X0 [place] [address] [facility] [id number] [address] [place] [address] May, Other chronic pain G89.29 [place] [address] [facility] [id number] [address] [place] [address] May, Anticoagulant long-term use Z79.01 [place] [address] [address] [facility] [id number] [address] [place] [address] May, Chronic prescription opiate use Z79.899 ; Other chronic pain G89.29 ; Essential hypertension I10 ; Factor V Leiden D68.51 ; Anticoagulant long-term use Z79.01 ; Pure hypercholesterolemia E78.00 ; Venous stasis ulcers, left I83.029 ; Idiopathic chronic gout of multiple sites without tophus M1A.09X0 and Cellulitis of left lower extremity L03.116 [place] [address] [address] [facility] [id number] [address] [place] [address] Apr, Other chronic pain G89.29 [place] [address] [address] [facility] [id number] [address] [place] [address] Mar, Other chronic pain G89.29 [place] [address] [facility] [id number] [address] [place] [address] Mar, Factor V Leiden D68.51 ; Pur e hypercholesterolemia E78.00 and Other chronic pain G89.29 [place] [address] [address] [facility] [id number] [address] [place] [address] Feb, Other chronic pain G89.29 [place] [address] [facility] [id number] [address] [place] [address] Jan, Idiopathic chronic gout of m ultiple sites without tophus M1A.09X0 [place] [address] [facility] [id number] [address] [place] [address] Jan, Other chronic pain G89.29 [place] [address] [facility] [id number] [address] [place] [address] Dec, Anticoagulant long-term use Z79.01 ; Factor V Leiden D68.51 and Other chronic pain G89.29 [place] [address] [facility] [id number] [address] [place] [address] Dec, Other chronic pain G89.29 [place] [address] [facility] [id number] [address] [place] [address] 13 Nov, 2016 Other chronic pain G89.29 [place] [address] [facility] [id number] [address] [place] [address] Oct, Other chronic pain G89.29 [place] [address] [facility] [id number] [address] [place] [address] Sep, Anticoagulant long-term use Z79.01 [place] [address] [facility] [id number] [address] [place] [address] Sep, Chronic prescription opiate use Z79.899 ; Anticoagulant long-term use Z79.01 ; Essential hypertension I10 ; Pure hypercholesterolemia E78.00 ; Factor V Leiden D68.51 ; Venous stasis ulcers, left I83.029 ; Other chronic pain G89.29 and Idiopathic chronic gout of multiple sites without tophus M1A.09X0 [place] [address] [facility] [id number] [address] [place] [address] Aug, Anticoagulant long-term use Z79.01 [place] [address] [facility] [id number] [address] [place] [address] Aug, Other chronic pain G89.29 [place] [address] [facility] [id number] [address] [place] [address] Aug, Essential hypertension I10 a nd Factor V Leiden D68.[address] [place] [id number] [place] [address] [id number] 15 Aug, 2016 Acute right ankle pain M25.571 and Tendo nitis of ankle M77.50 [place] [address] [facility] [id number] [address] [place] [address] Aug, [facility] [address] [id number] [address] [place] [address] July, Other chronic pain G89.29 [facility] [address] [id number] [address] [place] [address] Jun, Other chronic pain G89.29 [facility] [address] [facility] [id number] [address] [place] [address] Jun, Other chronic pain G89.29 [facility] [address] [id number] [address] [place] [address] Jun, Anticoagulant long-term use Z79.01 [facility] [address] [facility] [id number] [address] [place] [address] May, Other chronic pain G89.29 [facility] [address] [facility] [id number] [address] [place] [address] May, Anticoagulant long-term use Z79.01 [facility] [address] [facility] [id number] [address] [place] [address] May, Other chronic pain G89.29 [facility] [address] [facility] [id number] [address] [place] [address] Apr, Anticoagulant long-term use Z79.01 [facility] [address] [facility] [id number] [address] [place] [address] Apr, Other chronic pain G89.29 [facility] [address] [id number] [address] [place] [address] Apr, Anticoagulant long-term use Z79.01 and Pure hypercholesterolemia E78.00 [facility] [address] [facility] [id number] [address] [place] [address] Mar, [facility] [address] [facility] [id number] [address] [place] [address] Mar, Anticoagulant long-term use Z79.01 [facility] [address] [id number] [address] [place] [address] 04 Mar, 2016 Other chronic pain G89.29 [facility] [address] [id number] [address] [place] [id number] 08 Feb, 2016 Essential hypertension I10 ; Chronic prescription opiate use Z79.899 ; Other chronic pain G89.29 ; Screening Z13.9 ; Factor V Leiden D68.51 ; Anticoagulant long-term use Z79.01 ; Venous stasis dermatitis of left lower extremity I83.12 and Pure hypercholesterolemia E78.00 [facility] [address] [id number] [address] [place] [address] 14 Jan, 2016 Anticoagulant long-term use Z79.01 [facility] [address] [facility] [id number] [address] [place] [address] Jan, Anticoagulant long-term use Z79.01 [facility] [address] [facility] [id number] [address] [place] [address] Jan, [facility] [address] [facility] [id number] [address] [place] [phone] Jan, [facility] [address] [facility] [id number] [address] [place] [address] Dec, [facility] [address] [facility] [id number] [address] [place] [address] Nov, [facility] [address] [facility] [id number] [address] [place] [address] Oct, Anticoagulant long-term use Z79.01 [facility] [address] [facility] [id number] [address] [place] [phone] Oct, [facility] [address] [facility] [id number] [address] [place] [address] Oct, Anticoagulant long-term use Z79.01 [facility] [address] [facility] [id number] [address] [place] [address] Sep, [facility] [address] [facility] [id number] [address] [place] [address] Aug, [facility] [address] [facility] [id number] [address] [place] [address] Aug, Chronic prescription opiate use Z79.899 ; Other chronic pain G89.29 ; Essential hypertension I10 and Pure hypercholesterolemia E78.0 [facility] [address] [facility] [id number] [address] [place] [address] July, Hyperlipidemia, group D E78. 3 and Anticoagulant long-term use Z79.01 [facility] [address] [facility] [id number] [address] [place] [address] July, Hyperlipidemia, group D E78. 3 ; Essential hypertension I10 and Factor V Leiden D68.51 [place] [address] [facility] [id number] [address] [place] [phone] July, Essential hypertension I10 [place] [id number] [place] [address] Jun, Hyperlipidemia, group D E78. 3 [facility] [address] [facility] [id number] [address] [place] [address] Jun, Factor V Leiden D68.51 [place] [address] [facility] [id number] [address] [place] [address] May, Factor V Leiden D68.51 ; Hyp erlipidemia, group D E78.3 ; Essential hypertension I10 ; Other chronic pain G89.29 and Anticoagulant long-term use Z79.01 [facility] [address] [facility] [id number] [address] [place] [address] May, Anticoagulant long-term use Z79.01 [place] [address] [address] [facility] [id number] [address] [place] [address] May, Anticoagulant long-term use Z79.01 [facility] [address] [facility] [id number] [address] [place] [address] May, [facility] [address] [facility] [id number] [address] [place] [address] Apr, [facility] [address] [place] [id number] [address] [place] [address] Mar, [facility] [address] [address] Mar, [facility] [address] [address] Feb, Anticoagulant long-term use Z79.01 [facility] [address] [address] Feb, Chronic prescription opiate use Z79.899 ; Other chronic pain G89.29 ; Hyperlipidemia, group D E78.3 ; Factor V Leiden D68.51 and Anticoagulant long- term use Z79.01 [place] [address] [address] Feb, [place] [address] [address] Jan, [place] [address] [address] Dec, Hyperlipidemia, unspecified E78.5 [place] [address] [address] Dec, Cellulitis of left lower ext remity L03.116 ; Venous stasis ulcers, left I83.029 and Factor V Leiden D68.51 [place] [address] [address] [place] [id number] [address] [place] [address] Dec, Hyperlipidemia 272.4 and Fac tor V Leiden 289.81 [place] [address] [address] Dec, [place] [address] [address] [place] [id number] [address] [place] [address] Nov, Factor V Leiden 289.81 [place] [address] [address] Nov, [facility] [address] [facility] [id number] [address] [place] [address] Nov, [facility] [address] [facility] [id number] [address] [place] [address] Nov, [facility] [address] [facility] [id number] [address] [place] [address] Oct, [facility] [address] [facility] [id number] [place] [address] Oct, Hyperlipidemia 272.4 ; Chron ic pain disorder 338.4 ; Venous stasis ulcer of left lower extremity 454.0 and Factor V Leiden 289.81 [facility] [address] [place] [id number] [address] [place] [phone] Sep, [facility] [address] [address] Sep, [facility] [address] [address] Sep, Hyperlipidemia 272.4 and Fac tor V Leiden 289.81 [facility] [address] [place] [id number] [address] [place] [address] Aug, [facility] [address] [place] [id number] [address] [place] [address] Aug, Factor V Leiden 289.81 [facility] [address] [place] [id number] [address] [place] [address] July, [facility] [address] [place] [id number] [address] [place] [address] July, Essential hypertension, fito gn 401.1 ; Factor V Leiden 289.81 ; Chronic pain disorder 338.4 ; Hyperlipidemia 272.4 and Venous stasis ulcer of left lower extremity 454.0 [facility] [address] [place] [id number] [address] [place] [address] Jun, [facility] [address] [place] [id number] [address] [place] [address] 13 Jun, 2014 [facility] [address] [id number] [address] [place] [address], [place] [address] 13 May, 2014 [facility] [address] [id number] [address] [place] [address], [place] [address] 13 May, 2014 [facility] [address] [id number] [address] [place] [address], [place] [address] 20 Apr, 2014 [facility] [address] [id number] [address] [place] [address], [place] [address] 20 Apr, 2014 [facility] [address] [id number] [address] [place] [address], [place] [address] 18 Apr, 2014 [facility] [address] [id number] [address] [place] [address], [place] [address] 18 Apr, 2014 [facility] [address] [id number] [address] [place] [address], [place] [address] 13 Apr, 2014 [facility] [address] [id number] [address] [place] [address], [place] [address] Apr, [facility] [address] [id number] [address] [place] [address], [place] [address] Mar, [facility] [address] [id number] [address] [place] [address], [place] [address] 15 Mar, 2014 [facility] [address] [id number] [address] [place] [address], [place] [address] Mar, [facility] [address] [id number] [address] [place] [address], [place] [address] Mar, [facility] [address] [id number] [address] [place] [address], [place] [address] Feb, [facility] [address] [id number] [address] [place] [address], [place] [address] Feb, [facility] [address] [id number] [address] [place] [address], [place] [address] Feb, [facility] [address] [id number] [address] [place] [address], [place] [address] Feb, [facility] [address] [id number] [address] [place] [address], [place] [address] Jan, [facility] [address] [id number] [address] [place] [address], [place] [address] Jan, [facility] [address] [id number] [address] [place] [address], [place] [address] Jan, [facility] [address] [id number] [address] [place] [address], [place] [address] Jan, [facility] [address] [id number] [address] [place] [address], [place] [address] Jan, [facility] [address] [id number] [address] [place] [address], [place] [address] Jan, [facility] [address] [id number] [address] [place] [address], [place] [address] Dec, [facility] [address] [id number] [address] [place] [address], [place] [address] Dec, [facility] [address] [id number] [address] [place] [address], [place] [address] Oct, [facility] [address] [id number] [address] [place] [address], [place] [address] Oct, [facility] [address] [id number] [address] [place] [address], [place] [address] Sep, [facility] [address] [id number] [address] [place] [address], [place] [address] Sep, [facility] [address] [id number] [address] [place] [address], [place] [address] Sep, [facility] [address] [id number] [address] [place] [address], [place] [address] Sep, [facility] [address] [id number] [address] [place] [address], [place] [address] Aug, [facility] [address] [id number] [address] [place] [address], [place] [address] Aug, [facility] [address] [id number] [address] [place] [address], [place] [address] July, [facility] [address] [id number] [address] [place] [address], [place] [address] July, [facility] [address] [id number] [address] [place] [address], [place] [address] Jun, [facility] [address] [id number] [address] [place] [address], [place] [address] Jun, [facility] [address] [id number] [address] [place] [address], [place] [address] May, [facility] [address] [id number] [address] [place] [address], [place] [address] May, [facility] [address] [id number] [address] [place] [address], [place] [address] Apr, [facility] [address] [id number] [address] [place] [address], [place] [address] Apr, [facility] [address] [id number] [address] [place] [address], [place] [address] Mar, [facility] [address] [id number] [address] [place] [address], [place] [address] Mar, [facility] [address] [id number] [address] [place] [address], [place] [address] Jan, [facility] [address] [id number] [address] [place] [address], [place] [address] Jan, [facility] [address] [id number] [address] [place] [address], [place] [address] Jan, [facility] [address] [id number] [address] [place] [address], [place] [address] Jan, [facility] [address] [id number] [facility] [place] [address] Jan, [facility] [address] [id number] [address] [place] [address], [place] [address] Dec, [facility] [address] [id number] [address] [place] [address], [place] [address] Dec, [facility] [address] [id number] [address] [place] [address], [place] [address] Dec, [facility] [address] [id number] [address] [place] [address], [place] [address] Nov, [facility] [address] [id number] [address] [place] [address], [place] [address] Nov, [facility] [address] [id number] [address] [place] [address], [place] [address] Sep, [facility] [address] [id number] [address] [place] [address], [place] [address] Sep, [facility] [address] [id number] [address] [place] [address], [place] [address] Aug, [facility] [address] [id number] [address] [place] [id number] Aug, [facility] [address] [id number] [place] [id number] July, [facility] [address] [id number] [place] [id number] Jun, [facility] [place] [address] [id number] [place] [id number] Apr, [facility] [place] [address] [id number] [place] [id number] Mar, [facility] [address] [id number] [address] [place] [address], [place] [address] Mar, [facility] [address] [id number] [place] [id number] Mar, [facility] [address] [id number] [address] [place] [id number] Mar, [facility] [place] [address] [id number] [place] [id number] Feb, [facility] [address] [facility] [id number] [address] [place] [id number] Feb, [facility] [place] [address] [id number] [place] [id number] Feb, [facility] [address] [facility] [id number] [address] [place] [id number] Feb, [facility] [place] [address] [id number] [place] [id number] Oct, [facility] [place] [address] [id number] [place] [id number] Oct, [facility] [place] [address] [id number] [place] [id number] July, [facility] [place] [address] [id number] [place] [id number] July, [facility] [place] [address] [id number] [place] [id number] Jun, [facility] [place] [address] [id number] [place] [id number] Jun, [facility] [place] [address] [id number] [place] [id number] Jun, [facility] [place] [address] [id number] [place] [id number] Mar, [facility] [place] [address] [id number] [place] [id number] Mar, [facility] [address] [facility] [id number] [address] [place] [id number] Feb, [facility] [address] [facility] [id number] [address] [place] [id number] Feb, [facility] [address] [facility] [id number] [address] [place] [id number] Jan, [facility] [facility] [address] [facility] [id number] [address] [place] [phone] Jan, [facility] [address] [id number] [address] [place] [phone] Jan, [facility] [address] [id number] [address] [place] [phone] Jan, [facility] [address] [facility] [id number] [address] [place] [phone] Jan, [facility] [address] [facility] [id number] [address] [place] [phone] Aug, [facility] [address] [facility] [id number] [address] [place] [phone] Apr, IMMUNIZATIONS No Known Immunizations SOCIAL HISTORY Never Assessed REASON FOR VISIT Pain management (chronic)--DBennettTOAN PLAN OF CARE Activity Details Follow Up 3 Months Reason:Chronic pain /HTN VITAL SIGNS Height 76 in 2016-10-12 Weight 311 lbs 2016-10-12 Temperature 98.3 degrees Fahrenheit 2016-10-12 Heart Rate 80 bpm 2016-10-12 Respiratory Rate 20 2016-10-12 BMI 37.85 kg/m2 2016-10-12 Blood pressure systolic 112 mmHg 2016-10-12 Blood pressure diastolic 74 mmHg 2016-10-12 MEDICATIONS Medication Instructions Dosage Frequency Start Date End Date Duration S tatus Lisinopril 20 mg Orally Once a day 1 tablet 24h 90 d ays Active Pravastatin Sodium 40 mg Orally Once a day 1 tablet 24h 90 days Active Aspirin 325 MG Orally Once a day 1 tablet 24h Active Gabapentin 400 mg Orally Three times a day 1 tablet 8h July, 90 days Active Fish Oil 1 gram take 1 capsule by Oral route 3 times per day Sep, Active Hydrocodone-Acetaminophen 10-325 MG Orally 4 times a day as needed for pain 1 tablet Sep, 28 days Active Warfarin Sodium 10 mg Orally Once a day 1 tablet 24h 90 days Active RESULTS Name Result Date Reference Range AMERITOX 2016-10-12 INR (IN HOUSE) 2016-10-12 INR 2.6 1.10 - 3.30 PREVIOUS INR 3.2 CURRENT COUMADIN DOSE NEW COUMADIN DOSE Lot # Exp date PROCEDURES Procedure Date Ordered Result Body Site No Charge October 12, 2016 PROTHROMBIN TIME October 12, 2016 INSTRUCTIONS MEDICATIONS ADMINISTERED No Known Medications [...]
--- OUTSIDE RECORDS SUMMARY | 2019-11-08 13:15 | XMS REPORT ---
Author Author Zana ORTIZ [facility] Address [address] [place] [address] Care Team Providers Care Base Loader Name Role Phone AVANI ORTIZ Unavailable PROBLEMS Type Condition ICD9-CM Code [id number] Code Onset Dates Condition S tatus SNOMED Code Problem Factor V Leiden D68.51 Active 3070 33605 Problem Post-phlebitic syndrome I87.009 Active 16432989 Problem Anticoagulant long-term use Z79.01 Ac tive 856318613 Problem Essential hypertension I10 Active 21031946 Problem Other chronic pain G89.29 Active 8 1421733 Problem Venous stasis ulcers, left I83.029 Act ozzy 460050854 Problem 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 56952618 Problem Congenital single kidney Q60.0 Activ e 52826245 Problem Venous anomaly Q27.9 Active 42226 4003 Problem Pure hypercholesterolemia E78.00 Acti ve 882550334 Problem Chronic prescription opiate use Z79.899 Active 297566377 ALLERGIES Unknown Allergies SOCIAL HISTORY No smoking Hx information available PLAN OF CARE VITAL SIGNS MEDICATIONS Unknown Medications RESULTS No Results PROCEDURES No Known procedures IMMUNIZATIONS No Known Immunizations
--- OUTSIDE RECORDS SUMMARY | 2019-11-08 13:15 | XMS REPORT ---
Author Author Zana ORTIZ [facility] [employer] Address Unknown Phone Unavailable Care Team Providers Care Micromatic Hone Operator Name Role Phone AVANI ORTIZ CP [...]
--- OUTSIDE RECORDS SUMMARY | 2019-11-08 13:16 | XMS REPORT ---
Author Author Zana ORTIZ [facility] e[employer] Address Unknown Phone Unavailable Care Team Providers Care Frame Coverer Name Role Phone AVANI ORTIZ Unavailable Allergies [...] Instructions Start Date End Date Status Dosage Colchicine [facility] [address]-47 0.6 MG Orally on ce a day x1 dose then take 1 tablet 1 hour after first dose Apr 02, 2015 2 tablet s Results No Known Results Summary Purpose eClinicalWorks Submission
--- OUTSIDE RECORDS SUMMARY | 2019-11-08 13:16 | XMS REPORT ---
Author Author Zana ORTIZ [facility] e[employer] Address Unknown Phone Unavailable Care Team Providers Care Customer Quality Specialist Name Role Phone AVANI ORTIZ Unavailable Allergies [...]
--- OUTSIDE RECORDS SUMMARY | 2019-11-08 13:16 | XMS REPORT ---
Author Author Zana ORTIZ [facility] eClinical[employer] Address Unknown Phone Unavailable Care Team Providers Care Commercial Credit Head Name Role Phone AVANI ORTIZ Unavailable Allergies [...] Start Date End Date Status Dosage Hydrocodone-Acetaminophen [facility] [address]-98 10-325 MG Orally 4 times a day as needed for pain 1 tablet Results No Known Results Summary Purpose eClinicalWorks Submission
--- OUTSIDE RECORDS SUMMARY | 2019-11-08 13:16 | XMS REPORT ---
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 Role Phone DIANADAVIDAVANI Unavailable PROBLEMS Type Condition ICD9-CM Code RWB45-MR Code Onset Dates Condition S tatus SNOMED Code Problem Factor V Leiden D68.51 Active 3070 81440 Problem Post-phlebitic syndrome I87.009 Active 86809489 Problem Anticoagulant long-term use Z79.01 Ac tive 772035405 Problem Essential hypertension I10 Active 65386127 Problem Other chronic pain G89.29 Active 8 9430033 Problem Venous stasis ulcers, left I83.029 Act ozzy 648413941 Problem 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 93899713 Problem Congenital single kidney Q60.0 Activ e 84123263 Problem Venous anomaly Q27.9 Active 54750 4003 Problem Pure hypercholesterolemia E78.00 Acti ve 972769451 Problem Chronic prescription opiate use Z79.899 Active 009915238 ALLERGIES Substance Reaction Event Type Date Status Tetanus Unknown Drug Allergy Dec, Active Morphine Sulfate Unknown Drug Allergy Dec, Active Amoxicillin Unknown Drug Allergy Dec, Active ENCOUNTERS Encounter Location Date Diagnosis [facility] [address] [facility] [id number] [address] [place] [phone] Aug, [facility] [address] [facility] [id number] [address] [place] [address] July, Venous stasis ulcers, left I 83.029 and Snoring R06.83 [facility] [address] [facility] [id number] [address] [place] [address] Jun, Idiopathic chronic gout of m ultiple sites without tophus M1A.09X0 [facility] [address] [facility] [id number] [address] [place] [address] Jun, Acute renal insufficiency N2 8.9 [facility] [address] [facility] [id number] [address] [place] [address] Jun, Other chronic pain G89.29 [facility] [address] [facility] [id number] [address] [place] [address] Jun, Acute renal insufficiency N2 8.9 [place] [id number] [facility] [id number] [place] [address] [id number] Jun, Idiopathic chronic gout of multiple site s without tophus M1A.09X0 ; Essential hypertension I10 and Anticoagulant long-term use Z79.01 [place] [address] [facility] [id number] [address] [place] [address] Jun, Anticoagulant long-term use Z79.01 and Essential hypertension I10 [place] [address] [facility] [id number] [address] [place] [address] May, Idiopathic chronic gout of ultiple sites without tophus M1A.09X0 [facility] [address] [facility] [id number] [address] [place] [address] May, [place] [address] [facility] [id number] [address] [place] [address] May, Essential hypertension I10 ; Pure hypercholesterolemia E78.00 ; Anticoagulant long-term use Z79.01 and Idiopathic chronic gout of multiple sites without tophus M1A.09X0 [place] [address] [facility] [id number] [address] [place] [address] May, Other chronic pain G89.29 [facility] [address] [facility] [id number] [address] [place] [address] May, Anticoagulant long-term use Z79.01 [place] [address] [facility] [id number] [address] [place] [address] May, Chronic prescription opiate use Z79.899 ; Other chronic pain G89.29 ; Essential hypertension I10 ; Factor V Leiden D68.51 ; Anticoagulant long-term use Z79.01 ; Pure hypercholesterolemia E78.00 ; Venous stasis ulcers, left I83.029 ; Idiopathic chronic gout of multiple sites without tophus M1A.09X0 and Cellulitis of left lower extremity L03.116 [facility] [address] [id number] [address] [place] [address] Apr, Other chronic pain G89.29 [place] [address] [id number] [address] [place] [address] Mar, Other chronic pain G89.29 [place] [address] [id number] [address] [place] [address] Mar, Factor V Leiden D68.51 ; Pur e hypercholesterolemia E78.00 and Other chronic pain G89.29 [place] [address] [id number] [address] [place] [address] Feb, Other chronic pain G89.29 [place] [address] [id number] [address] [place] [address] Jan, Idiopathic chronic gout of m ultiple sites without tophus M1A.09X0 [place] [address] [id number] [address] [place] [address] Jan, Other chronic pain G89.29 [facility] [address] [id number] [address] [place] [address] Dec, Anticoagulant long-term use Z79.01 ; Factor V Leiden D68.51 and Other chronic pain G89.29 [place] [address] [id number] [address] [place] [address] Dec, Other chronic pain G89.29 [place] [address] [id number] [address] [place] [address] Nov, Other chronic pain G89.29 [place] [address] [facility] [id number] [address] [place] [address] Oct, Other chronic pain G89.29 [facility] [address] [facility] [id number] [address] [place] [address] Sep, Anticoagulant long-term use Z79.01 [facility] [address] [facility] [id number] [address] [place] [address] Sep, Chronic prescription opiate use Z79.899 ; Anticoagulant long-term use Z79.01 ; Essential hypertension I10 ; Pure hypercholesterolemia E78.00 ; Factor V Leiden D68.51 ; Venous stasis ulcers, left I83.029 ; Other chronic pain G89.29 and Idiopathic chronic gout of multiple sites without tophus M1A.09X0 [place] [address] [facility] [id number] [address] [place] [address] Aug, Anticoagulant long-term use Z79.01 [place] [address] [facility] [id number] [address] [place] [address] Aug, Other chronic pain G89.29 [place] [address] [facility] [id number] [address] [place] [address] Aug, Essential hypertension I10 a nd Factor V Leiden D68.[address] [place] [id number] [place] [address] [id number] Aug, Acute right ankle pain M25.571 and Tendo nitis of ankle M77.50 [place] [address] [facility] [id number] [address] [place] [address] Aug, [place] [address] [facility] [id number] [address] [place] [address] July, Other chronic pain G89.29 [place] [address] [facility] [id number] [address] [place] [address] Jun, Other chronic pain G89.29 [place] [address] [facility] [id number] [address] [place] [address] Jun, Other chronic pain G89.29 [place] [address] [facility] [id number] [address] [place] [address] Jun, Anticoagulant long-term use Z79.01 [place] [address] [facility] [id number] [address] [place] [address] May, Other chronic pain G89.29 [facility] [address] [facility] [id number] [address] [place] [address] May, Anticoagulant long-term use Z79.01 [place] [address] [facility] [id number] [address] [place] [address] May, Other chronic pain G89.29 [place] [address] [facility] [id number] [address] [place] [address] Apr, Anticoagulant long-term use Z79.01 [place] [address] [facility] [id number] [address] [place] [address] Apr, Other chronic pain G89.29 [place] [address] [facility] [id number] [address] [place] [address] Apr, Anticoagulant long-term use Z79.01 and Pure hypercholesterolemia E78.00 [place] [address] [facility] [id number] [address] [place] [address] Mar, [place] [address] [facility] [id number] [address] [place] [address] Mar, Anticoagulant long-term use Z79.01 [place] [address] [facility] [id number] [address] [place] [address] Mar, Other chronic pain G89.29 [place] [address] [facility] [id number] [address] [place] [address] 08 Feb, 2016 Essential hypertension I10 ; Chronic prescription opiate use Z79.899 ; Other chronic pain G89.29 ; Screening Z13.9 ; Factor V Leiden D68.51 ; Anticoagulant long-term use Z79.01 ; Venous stasis dermatitis of left lower extremity I83.12 and Pure hypercholesterolemia E78.00 [place] [address] [facility] [id number] [address] [place] [address] Jan, Anticoagulant long-term use Z79.01 [facility] [address] [facility] [id number] [address] [place] [address] Jan, Anticoagulant long-term use Z79.01 [facility] [address] [id number] [address] [place] [address] Jan, [facility] [address] [facility] [id number] [address] [place] [address] Jan, [facility] [address] [facility] [id number] [address] [place] [id number] Dec, [facility] [address] [facility] [id number] [address] [address] Nov, [facility] [address] [facility] [id number] [address] [place] [address] Oct, Anticoagulant long-term use Z79.01 [facility] [address] [facility] [id number] [address] [place] [id number] Oct, [facility] [address] [facility] [id number] [address] [place] [address] Oct, Anticoagulant long-term use Z79.01 [facility] [address] [facility] [id number] [address] [place] [address] Sep, [facility] [id number] [place] [address] Aug, [facility] [address] [address] Aug, Chronic prescription opiate use Z79.899 ; Other chronic pain G89.29 ; Essential hypertension I10 and Pure hypercholesterolemia E78.0 [facility] [address] [place] [id number] [address] [place] [address] July, Hyperlipidemia, group D E78. 3 and Anticoagulant long-term use Z79.01 [facility] [address] [place] [id number] [address] [place] [address] July, Hyperlipidemia, group D E78. 3 ; Essential hypertension I10 and Factor V Leiden D68.51 [facility] [address] [facility] [id number] [address] [place] [address] July, Essential hypertension I10 [facility] [address] [facility] [id number] [address] [place] [address] Jun, Hyperlipidemia, group D E78. 3 [facility] [address] [facility] [id number] [address] [place] [address] Jun, Factor V Leiden D68.51 [facility] [address] [facility] [id number] [address] [place] [address] May, Factor V Leiden D68.51 ; Hyp erlipidemia, group D E78.3 ; Essential hypertension I10 ; Other chronic pain G89.29 and Anticoagulant long-term use Z79.01 [facility] [address] [facility] [id number] [address] [place] [address] May, Anticoagulant long-term use Z79.01 [place] [address] [facility] [id number] [address] [place] [address] May, Anticoagulant long-term use Z79.01 [facility] [address] [place] [id number] [address] [place] [id number] May, [facility] [address] [facility] [id number] [address] [place] [address] Apr, [facility] [address] [facility] [id number] [address] [place] [id number] Mar, [facility] [address] [facility] [id number] [address] [place] [address] Mar, [facility] [address] [place] [id number] [address] [place] [address] Feb, Anticoagulant long-term use Z79.01 [facility] [address] [facility] [id number] [address] [place] [address] Feb, Chronic prescription opiate use Z79.899 ; Other chronic pain G89.29 ; Hyperlipidemia, group D E78.3 ; Factor V Leiden D68.51 and Anticoagulant long- term use Z79.01 [facility] [address] [place] [id number] [address] [place] [address] Feb, [facility] [address] [place] [id number] [address] [place] [address] Jan, [place] [address] [address] Dec, Hyperlipidemia, unspecified E78.5 [place] [address] [address] Dec, Cellulitis of left lower ext remity L03.116 ; Venous stasis ulcers, left I83.029 and Factor V Leiden D68.51 [place] [address] [place] [id number] [address] [place] [address] Dec, Hyperlipidemia 272.4 and Fac tor V Leiden 289.81 [place] [address] [place] [id number] [address] [place] [address] Dec, [place] [address] [place] [id number] [address] [place] [address] Nov, Factor V Leiden 289.81 [place] [id number] [place] [address] Nov, [place] [address] [place] [id number] [place] [address] Nov, [place] [address] [place] [id number] [address] [place] [address] Nov, [place] [address] [place] [id number] [address] [place] [address] Oct, [facility] [address] [place] [id number] [address] [place] [address] Oct, Hyperlipidemia 272.4 ; Chron ic pain disorder 338.4 ; Venous stasis ulcer of left lower extremity 454.0 and Factor V Leiden 289.81 [facility] [address] [facility] [id number] [address] [place] [address] Sep, [facility] [address] [facility] [id number] [address] [place] [phone] Sep, [facility] [address] [place] [id number] [place] [address] Sep, Hyperlipidemia 272.4 and Fac tor V Leiden 289.81 [facility] [address] [facility] [id number] [place] [address] Aug, [facility] [address] [place] [id number] [place] [address] Aug, Factor V Leiden 289.81 [facility] [address] [place] [id number] [place] [address] July, [facility] [address] [place] [id number] [place] [address] July, Essential hypertension, fito gn 401.1 ; Factor V Leiden 289.81 ; Chronic pain disorder 338.4 ; Hyperlipidemia 272.4 and Venous stasis ulcer of left lower extremity 454.0 [facility] [address] [place] [id number] [address] [place] [address] Jun, [facility] [address] [place] [id number] [address] [place] [address] Jun, [facility] [address] [place] [id number] [address] [place] [address] May, [facility] [address] [place] [id number] [place] [address] May, [facility] [address] [place] [id number] [address] [place] [id number] Apr, [facility] [address] [place] [id number] [address] [place] [phone] Apr, [facility] [address] [id number] [address] [place] [address], [place] [address] 18 Apr, 2014 [facility] [address] [id number] [address] [place] [address], [place] [address] 18 Apr, 2014 [facility] [address] [id number] [address] [place] [address], [place] [address] 13 Apr, 2014 [facility] [address] [id number] [address] [place] [address], [place] [address] Apr, [facility] [address] [id number] [address] [place] [address], [place] [address] 15 Mar, 2014 [facility] [address] [id number] [address] [place] [address], [place] [address] Mar, [facility] [address] [id number] [address] [place] [address], [place] [address] Mar, [facility] [address] [id number] [address] [place] [address], [place] [address] Mar, [facility] [address] [id number] [address] [place] [address], [place] [address] Feb, [facility] [address] [id number] [address] [place] [address], [place] [address] Feb, [facility] [address] [id number] [address] [place] [address], [place] [address] 16 Feb, 2014 [facility] [address] [id number] [address] [place] [address], [place] [address] Feb, [facility] [address] [id number] [address] [place] [address], [place] [address] Jan, [facility] [address] [id number] [address] [place] [address], [place] [address] Jan, [facility] [address] [id number] [address] [place] [address], [place] [address] Jan, [facility] [address] [id number] [address] [place] [address], [place] [address] Jan, [facility] [address] [id number] [address] [place] [address], [place] [address] Jan, [facility] [address] [id number] [address] [place] [address], [place] [address] Jan, [facility] [address] [id number] [address] [place] [address], [place] [address] Dec, [facility] [address] [id number] [address] [place] [address], [place] [address] Dec, [facility] [address] [id number] [address] [place] [address], [place] [address] Oct, [facility] [address] [id number] [address] [place] [address], [place] [address] Oct, [facility] [address] [id number] [address] [place] [address], [place] [address] Sep, [facility] [address] [id number] [address] [place] [address], [place] [address] Sep, [facility] [address] [id number] [address] [place] [address], [place] [address] Sep, [facility] [address] [id number] [address] [place] [address], [place] [address] Sep, [facility] [address] [id number] [address] [place] [address], [place] [address] Aug, [facility] [address] [id number] [address] [place] [address], [place] [address] Aug, [facility] [address] [id number] [address] [place] [address], [place] [address] July, [facility] [address] [id number] [address] [place] [address], [place] [address] July, [facility] [address] [id number] [address] [place] [address], [place] [address] Jun, [facility] [address] [id number] [address] [place] [address], [place] [address] Jun, [facility] [address] [id number] [address] [place] [address], [place] [address] May, [facility] [address] [id number] [address] [place] [address], [place] [address] May, [facility] [address] [id number] [address] [place] [address], [place] [address] Apr, [facility] [address] [id number] [address] [place] [address], [place] [address] Apr, [facility] [address] [id number] [address] [place] [address], [place] [address] Mar, [facility] [address] [id number] [address] [place] [address], [place] [address] Mar, [facility] [address] [id number] [address] [place] [address], [place] [address] Jan, [facility] [address] [id number] [address] [place] [address], [place] [address] Jan, [facility] [address] [id number] [address] [place] [address], [place] [address] Jan, [facility] [address] [id number] [address] [place] [address], [place] [address] Jan, [facility] [address] [id number] [address] [place] [id number] Jan, [facility] [address] [id number] [address] [place] [address], [place] [address] Dec, [facility] [address] [id number] [address] [place] [address], [place] [address] Dec, [facility] [address] [id number] [address] [place] [address], [place] [address] Dec, [facility] [address] [id number] [address] [place] [id number] Nov, [facility] [address] [id number] [address] [place] [id number] Nov, [facility] [address] [id number] [address] [place] [id number] Sep, [facility] [address] [facility] [id number] [address] [place] [id number] Sep, [facility] [address] [id number] [address] [place] [id number] Aug, [facility] [address] [id number] [address] [place] [id number] Aug, [facility] [address] [id number] [place] [id number] July, [facility] [address] [id number] [place] [id number] Jun, [facility] [address] [id number] [place] [id number] Apr, [facility] [address] [id number] [place] [id number] Mar, [facility] [address] [id number] [address] [place] [id number] Mar, [facility] [address] [id number] [place] [id number] Mar, [facility] [address] [id number] [address] [place] [id number] Mar, [facility] [address] [id number] [place] [id number] Feb, [facility] [address] [id number] [address] [place] [phone] Feb, [facility] [address] [id number] [place] [id number] Feb, [facility] [address] [facility] [id number] [address] [place] [phone] Feb, [facility] [address] [id number] [place] [id number] Oct, [facility] [address] [id number] [place] [id number] Oct, [facility] [address] [id number] [place] [id number] July, [facility] [address] [id number] [place] [id number] July, [facility] [address] [id number] [place] [id number] Jun, [facility] [address] [id number] [place] [id number] Jun, [facility] [address] [id number] [place] [id number] Jun, [facility] [address] [id number] [place] [id number] Mar, [facility] [address] [id number] [place] [id number] Mar, [facility] [address] [facility] [id number] [address] [place] [phone] Feb, [facility] [address] [facility] [id number] [address] [place] [phone] Feb, [facility] [address] [facility] [id number] [address] [place] [phone] Jan, [facility] [address] [facility] [id number] [address] [place] [phone] Jan, [facility] [address] [facility] [id number] [address] [place] [phone] Jan, [facility] [address] [facility] [id number] [address] [place] [phone] Jan, [facility] [address] [facility] [id number] [address] [place] [phone] Jan, [facility] [address] [facility] [id number] [address] [place] [phone] Aug, [facility] [address] [facility] [id number] [address] [place] [address] Apr, IMMUNIZATIONS No Known Immunizations SOCIAL HISTORY Never Assessed REASON FOR VISIT Pain management (chronic) PLAN OF CARE Activity Details Follow Up 6 Months Reason:Pain/HTN VITAL SIGNS Height 76 in 2017-01-20 Weight 319.0 lbs 2017-01-20 Temperature 97.9 degrees Fahrenheit 2017-01-20 BMI 38.83 kg/m2 2017-01-20 Blood pressure systolic 128 mmHg 2017-01-20 Blood pressure diastolic 82 mmHg 2017-01-20 MEDICATIONS Medication Instructions Dosage Frequency Start Date End Date Duration S tatus Warfarin Sodium 10 mg Orally Once a day 1 tablet 24h Active Gabapentin 400 mg Orally Three times a day 1 tablet 8h July, 90 days Active Fish Oil 1 gram take 1 capsule by Oral route 3 times per day Sep, Active Aspirin 325 MG Orally Once a day 1 tablet 24h Active Lisinopril 20 mg Orally Once a day 1 tablet 24h 90 d ays Active Pravastatin Sodium 40 mg Orally Once a day 1 tablet 24h 90 days Active Hydrocodone-Acetaminophen 10-325 MG Orally 4 times a day as needed for pain 1 tablet Dec, Active RESULTS Name Result Date Reference Range INR (IN HOUSE) 2017-01-20 INR 3.0 1.10 - 3.30 PREVIOUS INR 2.6 CURRENT COUMADIN DOSE NEW COUMADIN DOSE Lot # [id number] Exp date 03/2017 PROCEDURES Procedure Date Ordered Result Body Site PROTHROMBIN TIME Jan 20, 2017 INSTRUCTIONS MEDICATIONS ADMINISTERED No Known [...]
--- OUTSIDE RECORDS SUMMARY | 2019-11-08 13:16 | XMS REPORT ---
Author Author Zana ORTIZ Organization [facility] Address [address] [place] [address] Care Team Providers Care [employer] Name Role Phone AVANI ORTIZ Unavailable PROBLEMS Type Condition ICD9-CM Code PIJ56-HA Code Onset Dates Condition S tatus SNOMED Code Problem Factor V Leiden D68.51 Active 3070 84224 Problem Post-phlebitic syndrome I87.009 Active 51279104 Problem Anticoagulant long-term use Z79.01 Ac tive 270391299 Problem Essential hypertension I10 Active 21000127 Problem Other chronic pain G89.29 Active 8 6214655 Problem Venous stasis ulcers, left I83.029 Act ozzy 652608742 Problem 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 21601849 Problem Congenital single kidney Q60.0 Activ e 65399534 Problem Venous anomaly Q27.9 Active 14143 4003 Problem Pure hypercholesterolemia E78.00 Acti ve 839191899 Problem Chronic prescription opiate use Z79.899 Active 370983983 ALLERGIES No Information SOCIAL HISTORY Never Assessed [...]
--- OUTSIDE RECORDS SUMMARY | 2019-11-08 13:16 | XMS REPORT ---
Author Author Zana ORTIZ [facility] eClinical[employer] Address Unknown Phone Unavailable Care Team Providers Care [employer] Officer Name Role Phone AVANI ORTIZ Unavailable Allergies No Known Allergies Problems Problem Type Condition Code Onset Dates Condition Statu s Assessment Factor V Leiden 289.81 Active Problem Chronic pain disorder 338.4 Active Problem Hyperlipidemia 272.4 Active Problem Factor V Leiden 289.81 Active Problem Essential hypertension, benign 401.1 Active Assessment Hyperlipidemia 272.4 Active Problem Venous stasis ulcer of left lower extremity 454.0 Active Problem Obesity, unspecified 278.00 Active Medications No Known Medications Procedures Procedure Coding System Code Date COMPLETE CBC W/AUTO DIFF WBC CPT-4 64711 Jan 02, 2015 COMPREHEN METABOLIC PANEL CPT-4 30753 Dec PROTHROMBIN TIME CPT-4 11090 Jan 02, 2015 VENIPUNCT, ROUTINE* CPT-4 56361 Jan 02, 2015 Results Name Result Date Reference Range Unit Abnormali ty Flag ROUTINE VENIPUNCTURE Summary Purpose eClinicalWorks Submission
--- OUTSIDE RECORDS SUMMARY | 2019-11-08 13:16 | XMS REPORT ---
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 Phone DIANA AVANI Unavailable PROBLEMS Type Condition ICD9-CM Code ZLN29-CL Code Onset Dates Condition S tatus SNOMED Code Problem Factor V Leiden D68.51 Active 3070 71893 Problem Post-phlebitic syndrome I87.009 Active 75538893 Problem Anticoagulant long-term use Z79.01 Ac tive 447483907 Problem Essential hypertension I10 Active 61984793 Problem Other chronic pain G89.29 Active 8 1315109 Problem Venous stasis ulcers, left I83.029 Act ozzy 138222430 Problem 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 49060242 Problem Congenital single kidney Q60.0 Activ e 91012835 Problem Venous anomaly Q27.9 Active 08840 4003 Problem Pure hypercholesterolemia E78.00 Acti ve 855976943 Problem Chronic prescription opiate use Z79.899 Active [id number] ALLERGIES No Information ENCOUNTERS Encounter Location Date Diagnosis [place] [address] [facility] [id number] [address] [place] [address] Aug, [place] [address] [facility] [id number] [address] [place] [address] July, Venous stasis ulcers, left I 83.029 and Snoring R06.83 [facility] [address] [facility] [id number] [address] [place] [address] Jun, Idiopathic chronic gout of m ultiple sites without tophus M1A.09X0 [facility] [address] [facility] [id number] [address] [place] [address] Jun, Acute renal insufficiency N2 8.9 [place] [address] [facility] [id number] [address] [place] [address] Jun, Other chronic pain G89.29 [place] [address] [facility] [id number] [address] [place] [address] Jun, Acute renal insufficiency N2 8.[address] [place] [address] [id number] [id number] Jun, Idiopathic chronic gout of multiple site s without tophus M1A.09X0 ; Essential hypertension I10 and Anticoagulant long-term use Z79.01 [place] [address] [facility] [id number] [address] [place] [address] Jun, Anticoagulant long-term use Z79.01 and Essential hypertension I10 [place] [address] [facility] [id number] [address] [place] [address] May, Idiopathic chronic gout of m ultiple sites without tophus M1A.09X0 [place] [address] [facility] [id number] [address] [place] [address] May, [place] [address] [facility] [id number] [address] [place] [address] May, Essential hypertension I10 ; Pure hypercholesterolemia E78.00 ; Anticoagulant long-term use Z79.01 and Idiopathic chronic gout of multiple sites without tophus M1A.09X0 [place] [address] [facility] [id number] [address] [place] [address] May, Other chronic pain G89.29 [place] [address] [facility] [id number] [address] [place] [address] May, Anticoagulant long-term use Z79.01 [place] [address] [facility] [id number] [address] [place] [address] May, Chronic prescription opiate use Z79.899 ; Other chronic pain G89.29 ; Essential hypertension I10 ; Factor V Leiden D68.51 ; Anticoagulant long-term use Z79.01 ; Pure hypercholesterolemia E78.00 ; Venous stasis ulcers, left I83.029 ; Idiopathic chronic gout of multiple sites without tophus M1A.09X0 and Cellulitis of left lower extremity L03.116 [facility] [address] [id number] [address] [place] [address] Apr, Other chronic pain G89.29 [facility] [address] [id number] [address] [place] [address] Mar, Other chronic pain G89.29 [facility] [address] [id number] [address] [place] [address] Mar, Factor V Leiden D68.51 ; Pur e hypercholesterolemia E78.00 and Other chronic pain G89.29 [facility] [address] [id number] [address] [place] [address] Feb, Other chronic pain G89.29 [facility] [address] [facility] [id number] [address] [place] [address] Jan, Idiopathic chronic gout of m ultiple sites without tophus M1A.09X0 [facility] [address] [id number] [address] [place] [address] Jan, Other chronic pain G89.29 [facility] [address] [facility] [id number] [address] [place] [address] Dec, Anticoagulant long-term use Z79.01 ; Factor V Leiden D68.51 and Other chronic pain G89.29 [facility] [address] [id number] [address] [place] [address] Dec, Other chronic pain G89.29 [facility] [address] [id number] [address] [place] [address] Nov, Other chronic pain G89.29 [facility] [address] [facility] [id number] [address] [place] [address] Oct, Other chronic pain G89.29 [facility] [address] [facility] [id number] [address] [place] [address] Sep, Anticoagulant long-term use Z79.01 [facility] [address] [facility] [id number] [address] [place] [address] Sep, Chronic prescription opiate use Z79.899 ; Anticoagulant long-term use Z79.01 ; Essential hypertension I10 ; Pure hypercholesterolemia E78.00 ; Factor V Leiden D68.51 ; Venous stasis ulcers, left I83.029 ; Other chronic pain G89.29 and Idiopathic chronic gout of multiple sites without tophus M1A.09X0 [facility] [address] [facility] [id number] [address] [place] [address] Aug, Anticoagulant long-term use Z79.01 [place] [address] [facility] [id number] [address] [place] [address] Aug, Other chronic pain G89.29 [place] [address] [facility] [id number] [address] [place] [address] Aug, Essential hypertension I10 a nd Factor V Leiden D68.[address] [place] [id number] [place] [id number] Aug, Acute right ankle pain M25.571 and Tendo nitis of ankle M77.50 [place] [address] [facility] [id number] [address] [place] [address] Aug, [place] [address] [facility] [id number] [address] [place] [address] July, Other chronic pain G89.29 [place] [address] [facility] [id number] [address] [place] [address] Jun, Other chronic pain G89.29 [place] [address] [facility] [id number] [address] [place] [address] Jun, Other chronic pain G89.29 [place] [address] [facility] [id number] [address] [place] [address] Jun, Anticoagulant long-term use Z79.01 [place] [address] [facility] [id number] [address] [place] [address] May, Other chronic pain G89.29 [facility] [address] [facility] [id number] [address] [place] [address] May, Anticoagulant long-term use Z79.01 [facility] [address] [facility] [id number] [address] [place] [address] May, Other chronic pain G89.29 [facility] [address] [facility] [id number] [address] [place] [address] Apr, Anticoagulant long-term use Z79.01 [facility] [address] [facility] [id number] [address] [place] [address] Apr, Other chronic pain G89.29 [facility] [address] [facility] [id number] [address] [place] [address] Apr, Anticoagulant long-term use Z79.01 and Pure hypercholesterolemia E78.00 [place] [address] [facility] [id number] [address] [place] [address] Mar, [facility] [address] [facility] [id number] [address] [place] [address] Mar, Anticoagulant long-term use Z79.01 [facility] [address] [facility] [id number] [address] [place] [address] Mar, Other chronic pain G89.29 [facility] [address] [facility] [id number] [address] [place] [address] Feb, Essential hypertension I10 ; Chronic prescription opiate use Z79.899 ; Other chronic pain G89.29 ; Screening Z13.9 ; Factor V Leiden D68.51 ; Anticoagulant long-term use Z79.01 ; Venous stasis dermatitis of left lower extremity I83.12 and Pure hypercholesterolemia E78.00 [facility] [address] [facility] [id number] [address] [place] [address] 14 Jan, 2016 Anticoagulant long-term use Z79.01 [facility] [address] [facility] [id number] [address] [place] [address] 10 Jan, 2016 Anticoagulant long-term use Z79.01 [facility] [address] [facility] [id number] [address] [place] [address] 09 Jan, 2016 [facility] [address] [facility] [id number] [address] [place] [address] Jan, [facility] [address] [facility] [id number] [address] [place] [address] Dec, [facility] [address] [facility] [id number] [address] [place] [address] Nov, [facility] [address] [facility] [id number] [place] [address] Oct, Anticoagulant long-term use Z79.01 [facility] [address] [facility] [id number] [address] [place] [address] Oct, [facility] [address] [place] [id number] [place] [address] Oct, Anticoagulant long-term use Z79.01 [facility] [address] [facility] [id number] [address] [place] [address] Sep, [facility] [address] [facility] [id number] [address] [place] [address] Aug, [facility] [address] [facility] [id number] [address] [place] [address] Aug, Chronic prescription opiate use Z79.899 ; Other chronic pain G89.29 ; Essential hypertension I10 and Pure hypercholesterolemia E78.0 [facility] [address] [facility] [id number] [address] [place] [address] July, Hyperlipidemia, group D E78. 3 and Anticoagulant long-term use Z79.01 [facility] [address] [facility] [id number] [address] [place] [address] July, Hyperlipidemia, group D E78. 3 ; Essential hypertension I10 and Factor V Leiden D68.51 [place] [address] [address] July, Essential hypertension I10 [place] [address] [address] Jun, Hyperlipidemia, group D E78. 3 [facility] [address] [address] Jun, Factor V Leiden D68.51 [facility] [address] [address] May, Factor V Leiden D68.51 ; Hyp erlipidemia, group D E78.3 ; Essential hypertension I10 ; Other chronic pain G89.29 and Anticoagulant long-term use Z79.01 [place] [address] [address] May, Anticoagulant long-term use Z79.01 [place] [address] [address] May, Anticoagulant long-term use Z79.01 [place] [address] [address] May, [place] [address] [address] Apr, [place] [address] [address] Mar, [facility] [address] [address] Mar, [facility] [address] [address] Feb, Anticoagulant long-term use Z79.01 [facility] [address] [place] [id number] [address] [place] [address] Feb, Chronic prescription opiate use Z79.899 ; Other chronic pain G89.29 ; Hyperlipidemia, group D E78.3 ; Factor V Leiden D68.51 and Anticoagulant long- term use Z79.01 [facility] [address] [facility] [id number] [address] [place] [address] Feb, [facility] [address] [facility] [id number] [address] [place] [address] Jan, [place] [address] [address] Dec, Hyperlipidemia, unspecified E78.5 [place] [address] [place] [id number] [address] [place] [address] Dec, Cellulitis of left lower ext remity L03.116 ; Venous stasis ulcers, left I83.029 and Factor V Leiden D68.51 [place] [address] [place] [id number] [address] [place] [address] Dec, Hyperlipidemia 272.4 and Fac tor V Leiden 289.81 [place] [address] [place] [id number] [place] [address] Dec, [facility] [address] [place] [id number] [address] [place] [address] Nov, Factor V Leiden 289.81 [place] [address] [place] [id number] [address] [place] [address] Nov, [place] [id number] [place] [address] Nov, [facility] [address] [place] [id number] [address] [place] [address] Nov, [facility] [address] [place] [id number] [address] [place] [address] Oct, [place] [address] [place] [id number] [address] [place] [address] Oct, Hyperlipidemia 272.4 ; Chron ic pain disorder 338.4 ; Venous stasis ulcer of left lower extremity 454.0 and Factor V Leiden 289.81 [place] [address] [place] [id number] [address] [place] [address] 14 Sep, 2014 [facility] [address] [facility] [id number] [address] [place] [address] Sep, [facility] [address] [facility] [id number] [address] [place] [address] Sep, Hyperlipidemia 272.4 and Fac tor V Leiden 289.81 [facility] [address] [facility] [id number] [address] [place] [address] Aug, [facility] [address] [facility] [id number] [address] [place] [address] Aug, Factor V Leiden 289.81 [facility] [address] [facility] [id number] [address] [place] [address] July, [facility] [address] [facility] [id number] [place] [address] July, Essential hypertension, fito gn 401.1 ; Factor V Leiden 289.81 ; Chronic pain disorder 338.4 ; Hyperlipidemia 272.4 and Venous stasis ulcer of left lower extremity 454.0 [facility] [address] [facility] [id number] [address] [place] [address] Jun, [facility] [address] [facility] [id number] [address] [place] [address] Jun, [facility] [address] [facility] [id number] [address] [place] [address] May, [facility] [address] [facility] [id number] [address] [place] [address] May, [facility] [address] [place] [id number] [address] [place] [address] Apr, [facility] [address] [facility] [id number] [address] [place] [address] Apr, [facility] [address] [place] [id number] [address] [place] [address] 18 Apr, 2014 [facility] [address] [id number] [address] [place] [address], [place] [address] 18 Apr, 2014 [facility] [address] [id number] [address] [place] [address], [place] [address] 13 Apr, 2014 [facility] [address] [id number] [address] [place] [address], [place] [address] 13 Apr, 2014 [facility] [address] [id number] [address] [place] [address], [place] [address] 15 Mar, 2014 [facility] [address] [id number] [address] [place] [address], [place] [address] 15 Mar, 2014 [facility] [address] [id number] [address] [place] [address], [place] [address] Mar, [facility] [address] [id number] [address] [place] [address], [place] [address] Mar, [facility] [address] [id number] [address] [place] [address], [place] [address] 17 Feb, 2014 [facility] [address] [id number] [address] [place] [address], [place] [address] 17 Feb, 2014 [facility] [address] [id number] [address] [place] [address], [place] [address] 16 Feb, 2014 [facility] [address] [id number] [address] [place] [address], [place] [address] 16 Feb, 2014 [facility] [address] [id number] [address] [place] [address], [place] [address] 24 Jan, 2014 [facility] [address] [id number] [address] [place] [address], [place] [address] 19 Jan, 2014 [facility] [address] [id number] [address] [place] [address], [place] [address] 19 Jan, 2014 [facility] [address] [id number] [address] [place] [address], [place] [address] 14 Jan, 2014 [facility] [address] [id number] [address] [place] [address], [place] [address] Jan, [facility] [address] [id number] [address] [place] [address], [place] [address] Jan, [facility] [address] [id number] [address] [place] [address], [place] [address] Dec, [facility] [address] [id number] [address] [place] [address], [place] [address] Dec, [facility] [address] [id number] [address] [place] [address], [place] [address] Oct, [facility] [address] [id number] [address] [place] [address], [place] [address] Oct, [facility] [address] [id number] [address] [place] [address], [place] [address] Sep, [facility] [address] [id number] [address] [place] [address], [place] [address] Sep, [facility] [address] [id number] [address] [place] [address], [place] [address] Sep, [facility] [address] [id number] [address] [place] [address], [place] [address] Sep, [facility] [address] [id number] [address] [place] [address], [place] [address] Aug, [facility] [address] [id number] [address] [place] [address], [place] [address] Aug, [facility] [address] [id number] [address] [place] [address], [place] [address] July, [facility] [address] [id number] [address] [place] [address], [place] [address] July, [facility] [address] [id number] [address] [place] [address], [place] [address] Jun, [facility] [address] [id number] [address] [place] [address], [place] [address] Jun, [facility] [address] [id number] [address] [place] [address], [place] [address] May, [facility] [address] [id number] [address] [place] [address], [place] [address] May, [facility] [address] [id number] [address] [place] [address], [place] [address] Apr, [facility] [address] [id number] [address] [place] [address], [place] [address] Apr, [facility] [address] [id number] [address] [place] [address], [place] [address] Mar, [facility] [address] [id number] [address] [place] [address], [place] [address] Mar, [facility] [address] [id number] [address] [place] [address], [place] [address] Jan, [facility] [address] [id number] [address] [place] [address], [place] [address] Jan, [facility] [address] [id number] [address] [place] [address], [place] [address] Jan, [facility] [address] [id number] [address] [place] [address], [place] [address] Jan, [facility] [address] [id number] [address] [place] [address], [place] [address] Jan, [facility] [address] [id number] [address] [place] [address], [place] [address] Dec, [facility] [address] [id number] [address] [place] [address], [place] [id number] Dec, [facility] [address] [id number] [address] [place] [address], [place] [address] Dec, [facility] [address] [id number] [address] [place] [address], [place] [address] Nov, [facility] [address] [id number] [address] [place] [id number] Nov, [facility] [address] [id number] [address] [place] [id number] Sep, [facility] [address] [id number] [address] [place] [id number] Sep, [facility] [address] [facility] [id number] [address] [place] [id number] Aug, [facility] [address] [id number] [address] [place] [id number] Aug, [facility] [address] [id number] [place] [id number] July, [facility] [address] [id number] [place] [id number] Jun, [facility] [address] [id number] [place] [id number] Apr, [facility] [address] [id number] [place] [id number] Mar, [facility] [address] [id number] [address] [place] [id number] Mar, [facility] [address] [id number] [place] [id number] Mar, [facility] [address] [id number] [address] [place] [id number] Mar, [facility] [address] [id number] [place] [id number] Feb, [facility] [address] [id number] [address] [place] [address] Feb, [facility] [address] [id number] [place] [id number] Feb, [facility] [address] [id number] [address] [place] [id number] Feb, [facility] [address] [id number] [place] [id number] Oct, [facility] [address] [id number] [place] [id number] Oct, [facility] [address] [id number] [place] [id number] July, [facility] [address] [id number] [place] [id number] July, [facility] [address] [id number] [place] [id number] Jun, [facility] [address] [id number] [place] [id number] Jun, [facility] [address] [id number] [place] [id number] Jun, [facility] [address] [id number] [place] [id number] Mar, [facility] [address] [id number] [place] [id number] Mar, [facility] [address] [facility] [id number] [address] [place] [id number] Feb, [facility] [address] [facility] [id number] [address] [place] [id number] Feb, [facility] [address] [facility] [id number] [address] [place] [id number] Jan, [facility] [address] [facility] [id number] [address] [place] [id number] Jan, [facility] [address] [facility] [id number] [address] [place] [id number] Jan, [facility] [address] [facility] [id number] [address] [place] [id number] Jan, [facility] [address] [facility] [id number] [address] [place] [id number] Jan, [facility] [address] [facility] [id number] [address] [place] [id number] Aug, [facility] [address] [facility] [id number] [address] [place] [id number] Apr, IMMUNIZATIONS No Known Immunizations SOCIAL HISTORY [...]
--- OUTSIDE RECORDS SUMMARY | 2019-11-08 13:17 | XMS REPORT | Continuity of Care Document ---
Demographics Preferred Language Unknown Marital Status Unknown Mosque Affiliation Unknown Race Unknown Ethnic Group Unknown Author Organization Unknown Address Unknown Phone Unavailable Allergies Active Description Code Type Severity Reaction Onset Reported/Identified Relationship to Patient Clinical Status Yes morphine Drug Allergy N/A N/A 05/13/2010 Yes tetanus toxoid Drug Allergy N/A N/A 05/13/2010 Yes morphine Drug Allergy 05/13/2010 Yes tetanus toxoid Drug Allergy 05/13/2010 Yes Amoxicillin Drug Allergy N/A N/A 11/05/2013 Medications There is no data. Problems Date Dx Coded Attending Type Code Diagnosis Diagnosed By 05/13/2010 HAVEN TRIANA MD 289. 81 PRIMARY HYPERCOAGULABLE STATE FACTOR V LEIDEN MUTATION 05/13/2010 HAVEN TRIANA MD 338. 29 CHRONIC PAIN 05/13/2010 HAVEN TRIANA MD 401. 9 Combined Systolic And Diastolic Elevation 05/13/2010 HAVEN TRIANA MD V58. 69 taking high-risk medication for a long time 05/13/2010 289.81 MERT VU HYPERCOAGULABLE STATE FACTOR V LEIDEN MUTATION 05/13/2010 338.29 CHR ONIC PAIN 05/13/2010 401.9 Comb ined Systolic And Diastolic Elevation 05/13/2010 V58.69 samra ing high-risk medication for a long time 05/13/2010 HAVEN TRIANA MD 289. 81 PRIMARY HYPERCOAGULABLE STATE FACTOR V LEIDEN MUTATION 05/13/2010 HAVEN TRIANA MD 338. 29 CHRONIC PAIN 05/13/2010 HAVEN TRIANA MD 401. 9 Combined Systolic And Diastolic Elevation 05/13/2010 HAVEN TRIANA MD V58. 69 taking high-risk medication for a long time 05/13/2010 289.81 MERT VU HYPERCOAGULABLE STATE FACTOR V LEIDEN MUTATION 05/13/2010 338.29 CHR ONIC PAIN 05/13/2010 401.9 Comb ined Systolic And Diastolic Elevation 05/13/2010 V58.69 samra ing high-risk medication for a long time 05/13/2010 289.81 MERT VU HYPERCOAGULABLE STATE FACTOR V LEIDEN MUTATION 05/13/2010 338.29 CHR ONIC PAIN 05/13/2010 401.9 Comb ined Systolic And Diastolic Elevation 05/13/2010 V58.69 samra ing high-risk medication for a long time 05/13/2010 289.81 MERT VU HYPERCOAGULABLE STATE FACTOR V LEIDEN MUTATION 05/13/2010 338.29 CHR ONIC PAIN 05/13/2010 401.9 Comb ined Systolic And Diastolic Elevation 05/13/2010 V58.69 samra ing high-risk medication for a long time 05/13/2010 289.81 MERT VU HYPERCOAGULABLE STATE FACTOR V LEIDEN MUTATION 05/13/2010 338.29 CHR ONIC PAIN 05/13/2010 401.9 Comb ined Systolic And Diastolic Elevation 05/13/2010 V58.69 samra ing high-risk medication for a long time 05/13/2010 STEPHEN DO DIXIE K 289.81 PRIMARY HYPERCOAGULABLE STATE FACTOR V LEIDEN MUTATION 05/13/2010 STEPHEN DO DIXIE K 338.29 CHRONIC PAIN 05/13/2010 MITCHELL DO DIXIE K 401.9 Combined Systolic And Diastolic Elevation 05/13/2010 STEPHEN KATHLEEN DIXIE K V58.69 taking high-risk medication for a long time 05/13/2010 STEPHEN KATHLEEN DIXIE K 289.81 PRIMARY HYPERCOAGULABLE STATE FACTOR V LEIDEN MUTATION 05/13/2010 MITCHELL DO DIXIE K 338.29 CHRONIC PAIN 05/13/2010 STEPHEN KATHLEEN DIXIE K 401.9 Combined Systolic And Diastolic Elevation 05/13/2010 MITCHELL DO DIXIE K V58.69 taking high-risk medication for a long time 05/13/2010 STEPHEN KATHLEEN DIXIE K 289.81 PRIMARY HYPERCOAGULABLE STATE FACTOR V LEIDEN MUTATION 05/13/2010 STEPHEN KATHLEEN DIXIE K 338.29 CHRONIC PAIN 05/13/2010 STEPHEN KATHLEEN DIXIE K 401.9 Combined Systolic And Diastolic Elevation 05/13/2010 MITCHELL DO DIXIE K V58.69 taking high-risk medication for a long time 05/13/2010 AVANI ORTIZ MD 289 .81 PRIMARY HYPERCOAGULABLE STATE FACTOR V LEIDEN MUTATION 05/13/2010 AVANI ORTIZ MD 338 .29 CHRONIC PAIN 05/13/2010 AVANI ORTIZ MD 401 .9 COMBINED SYSTOLIC AND DIASTOLIC ELEVATION 05/13/2010 AVANI ORTIZ MD V58 .69 taking high-risk medication for a long time 05/13/2010 AVANI ORTIZ MD N 289 .81 PRIMARY HYPERCOAGULABLE STATE FACTOR V LEIDEN MUTATION 05/13/2010 AVANI ORTIZ MD N 338 .29 CHRONIC PAIN 05/13/2010 AVANI ORTIZ MD N 401 .9 COMBINED SYSTOLIC AND DIASTOLIC ELEVATION 05/13/2010 AVANI ORTIZ MD V58 .69 taking high-risk medication for a long time 05/13/2010 AVANI ORTIZ MD N 289 .81 PRIMARY HYPERCOAGULABLE STATE FACTOR V LEIDEN MUTATION 05/13/2010 AVANI ORTIZ MD N 338 .29 CHRONIC PAIN 05/13/2010 AVANI ORTIZ MD N 401 .9 COMBINED SYSTOLIC AND DIASTOLIC ELEVATION 05/13/2010 AVANI ORTIZ MD V58 .69 taking high-risk medication for a long time 05/13/2010 MECCA FIELDS APRN S 289.81 PRIMARY HYPERCOAGULABLE STATE FACTOR V LEIDEN MUTATION 05/13/2010 MECCA FIELDS APRN S 338.29 CHRONIC PAIN 05/13/2010 MECCA FIELDS APRN S 401.9 COMBINED SYSTOLIC AND DIASTOLIC ELEVATION 05/13/2010 MECCA FIELDS APRN S V58.69 taking high-risk medication for a long time 05/13/2010 MARCELO RAMOS APRNINA R 289.81 PRIMARY HYPERCOAGULABLE STATE FACTOR V LEIDEN MUTATION 05/13/2010 MARCELO RAMOS APRNINA R 338.29 CHRONIC PAIN 05/13/2010 MARCELO RAMOS APRNINA R 401.9 COMBINED SYSTOLIC AND DIASTOLIC ELEVATION 05/13/2010 RICHARD BRITTON BOAZ R V58.69 taking high-risk medication for a long time 05/13/2010 WHITE DDS, LIBIA D 289.81 PRIMARY HYPERCOAGULABLE STATE FACTOR V LEIDEN MUTATION 05/13/2010 WHITE DDS, LIBIA D 338.29 CHRONIC PAIN 05/13/2010 WHITE DDS, LIBIA D 40 1.9 COMBINED SYSTOLIC AND DIASTOLIC ELEVATION 05/13/2010 WHITE DDS, LIBIA D V58.69 taking high-risk medication for a long time 05/13/2010 289.81 MERT HORACE HYPERCOAGULABLE STATE FACTOR V LEIDEN MUTATION 05/13/2010 338.29 CHR ONIC PAIN 05/13/2010 401.9 Comb ined Systolic And Diastolic Elevation 05/13/2010 V58.69 samra ing high-risk medication for a long time 05/13/2010 AVANI ORTIZ MD 289 .81 PRIMARY HYPERCOAGULABLE STATE FACTOR V LEIDEN MUTATION 05/13/2010 AVANI ORTIZ MD N 338 .29 CHRONIC PAIN 05/13/2010 AVANI ORTIZ MD N 401 .9 COMBINED SYSTOLIC AND DIASTOLIC ELEVATION 05/13/2010 AVANI ORTIZ MD V58 .69 taking high-risk medication for a long time 05/13/2010 AVANI ORTIZ MD 289 .81 PRIMARY HYPERCOAGULABLE STATE FACTOR V LEIDEN MUTATION 05/13/2010 AVANI ORTIZ MD 338 .29 CHRONIC PAIN 05/13/2010 AVANI ORTIZ MD 401 .9 COMBINED SYSTOLIC AND DIASTOLIC ELEVATION 05/13/2010 AVANI ORTIZ MD V58 .69 taking high-risk medication for a long time 07/16/2010 HAVEN TRIANA MD 274. 00 GOUTY ARTHROPATHY UNSPECIFIED 07/16/2010 274.00 GOU TY ARTHROPATHY UNSPECIFIED 07/16/2010 HAVEN TRIANA MD 274. 00 GOUTY ARTHROPATHY UNSPECIFIED 07/16/2010 274.00 GOU TY ARTHROPATHY UNSPECIFIED 07/16/2010 274.00 GOU TY ARTHROPATHY UNSPECIFIED 07/16/2010 274.00 GOU TY ARTHROPATHY UNSPECIFIED 07/16/2010 274.00 GOU TY ARTHROPATHY UNSPECIFIED 07/16/2010 DIXIE MITCHELL DO 274.00 GOUTY ARTHROPATHY UNSPECIFIED 07/16/2010 DIXIE MITCHELL DO 274.00 GOUTY ARTHROPATHY UNSPECIFIED 07/16/2010 DIXIE MITCHELL DO 274.00 GOUTY ARTHROPATHY UNSPECIFIED 07/16/2010 AVANI ORTIZ MD 274 .00 GOUTY ARTHROPATHY UNSPECIFIED 07/16/2010 AVANI ORTIZ MD 274 .00 GOUTY ARTHROPATHY UNSPECIFIED 07/16/2010 AVANI ORTIZ MD 274 .00 GOUTY ARTHROPATHY UNSPECIFIED 07/16/2010 MECCA FIELDS APRN 274.00 GOUTY ARTHROPATHY UNSPECIFIED 07/16/2010 BOAZ RAMOS APRN 274.00 GOUTY ARTHROPATHY UNSPECIFIED 07/16/2010 KUNAL MARLEYLIBIA 274.00 GOUTY ARTHROPATHY UNSPECIFIED 07/16/2010 274.00 GOU TY ARTHROPATHY UNSPECIFIED 07/16/2010 AVANI ORTIZ MD N 274 .00 GOUTY ARTHROPATHY UNSPECIFIED 07/16/2010 AVANI ORTIZ MD N 274 .00 GOUTY ARTHROPATHY UNSPECIFIED 09/07/2010 HAVEN TRIANA MD 272. 4 DYSLIPIDEMIA 09/07/2010 272.4 DYSL IPIDEMIA 09/07/2010 HAVEN TRIANA MD 272. 4 DYSLIPIDEMIA 09/07/2010 272.4 DYSL IPIDEMIA 09/07/2010 272.4 DYSL IPIDEMIA 09/07/2010 272.4 DYSL IPIDEMIA 09/07/2010 272.4 DYSL IPIDEMIA 09/07/2010 DIXIE MITCHELL DO K 272.4 DYSLIPIDEMIA 09/07/2010 DIXIE MITCHELL DO 272.4 DYSLIPIDEMIA 09/07/2010 DIXIE MITCHELL DO K 272.4 DYSLIPIDEMIA 09/07/2010 AVANI ORTIZ MD N 272 .4 DYSLIPIDEMIA 09/07/2010 AVANI ORTIZ MD N 272 .4 DYSLIPIDEMIA 09/07/2010 AVANI ORTIZ MD N 272 .4 DYSLIPIDEMIA 09/07/2010 DIAMOND CORRECTION OFFICER SUPERVISOR, MECCA S 272.4 DYSLIPIDEMIA 09/07/2010 RICHARD CORRECTION OFFICER SUPERVISOR, BOAZ R 272.4 DYSLIPIDEMIA 09/07/2010 WHITE DDS, LIBIA Barker 27 2.4 DYSLIPIDEMIA 09/07/2010 272.4 DYSL IPIDEMIA 09/07/2010 AVANI ORTIZ MD N 272 .4 DYSLIPIDEMIA 09/07/2010 AVANI ORTIZ MD 272 .4 DYSLIPIDEMIA 11/25/2010 HAVEN TRIANA MD 719. 04 EFFUSION OF HAND JOINT 11/25/2010 719.04 EFF USION OF HAND JOINT 11/25/2010 HAVEN TRIANA MD 719. 04 EFFUSION OF HAND JOINT 11/25/2010 719.04 EFF USION OF HAND JOINT 11/25/2010 719.04 EFF USION OF HAND JOINT 11/25/2010 719.04 EFF USION OF HAND JOINT 11/25/2010 719.04 EFF USION OF HAND JOINT 11/25/2010 DIXIE MITCHELL DO 719.04 EFFUSION OF HAND JOINT 11/25/2010 DIXIE MITCHELL DO 719.04 EFFUSION OF HAND JOINT 11/25/2010 DIXIE MITCHELL DO 719.04 EFFUSION OF HAND JOINT 11/25/2010 AVANI ORTIZ MD N 719 .04 EFFUSION OF HAND JOINT 11/25/2010 AVANI ORTIZ MD N 719 .04 EFFUSION OF HAND JOINT 11/25/2010 AVANI ORTIZ MD N 719 .04 EFFUSION OF HAND JOINT 11/25/2010 MECCA FIELDS APRN S 719.04 EFFUSION OF HAND JOINT 11/25/2010 BOAZ RAMOS APRN 719.04 EFFUSION OF HAND JOINT 11/25/2010 LIBIA SYED DDS 719.04 EFFUSION OF HAND JOINT 11/25/2010 719.04 EFF USION OF HAND JOINT 11/25/2010 AVANI ORTIZ MD N 719 .04 EFFUSION OF HAND JOINT 11/25/2010 AVANI ORTIZ MD N 719 .04 EFFUSION OF HAND JOINT 07/15/2011 HAVEN TRIANA MD 278. 00 OBESITY 07/15/2011 HAVEN TRIANA MD 707. 10 CHRONIC CUTANEOUS ULCER NONDECUBITUS OF LOWER LIMBS 07/15/2011 278.00 OBESITY 07/15/2011 707.10 CHR ONIC CUTANEOUS ULCER NONDECUBITUS OF LOWER LIMBS 07/15/2011 HAVEN TRIANA MD 278. 00 OBESITY 07/15/2011 HAVEN TRIANA MD 707. 10 CHRONIC CUTANEOUS ULCER NONDECUBITUS OF LOWER LIMBS 07/15/2011 278.00 OBESITY 07/15/2011 707.10 CHR ONIC CUTANEOUS ULCER NONDECUBITUS OF LOWER LIMBS 07/15/2011 278.00 OBESITY 07/15/2011 707.10 CHR ONIC CUTANEOUS ULCER NONDECUBITUS OF LOWER LIMBS 07/15/2011 278.00 OBESITY 07/15/2011 707.10 CHR ONIC CUTANEOUS ULCER NONDECUBITUS OF LOWER LIMBS 07/15/2011 278.00 OBESITY 07/15/2011 707.10 CHR ONIC CUTANEOUS ULCER NONDECUBITUS OF LOWER LIMBS 07/15/2011 DIXIE MITCHELL DO 278.00 OBESITY 07/15/2011 DIXIE MITCHELL DO 707.10 CHRONIC CUTANEOUS ULCER NONDECUBITUS OF LOWER LIMBS 07/15/2011 DIXIE MITCHELL DO 278.00 OBESITY 07/15/2011 DIXIE MITCHELL DO 707.10 CHRONIC CUTANEOUS ULCER NONDECUBITUS OF LOWER LIMBS 07/15/2011 STEPHEN KATHLEEN, DIXIE K 278.00 OBESITY 07/15/2011 MITCHELL , DIXIE K 707.10 CHRONIC CUTANEOUS ULCER NONDECUBITUS OF LOWER LIMBS 07/15/2011 AVANI ORTIZ MD N 278 .00 OBESITY 07/15/2011 AVANI ORTIZ MD 707 .10 CHRONIC CUTANEOUS ULCER NONDECUBITUS OF LOWER LIMBS 07/15/2011 AVANI ORTIZ MD 278 .00 OBESITY 07/15/2011 AVANI ORTIZ MD 707 .10 CHRONIC CUTANEOUS ULCER NONDECUBITUS OF LOWER LIMBS 07/15/2011 AVANI ORTIZ MD N 278 .00 OBESITY 07/15/2011 AVANI ORTIZ MD 707 .10 CHRONIC CUTANEOUS ULCER NONDECUBITUS OF LOWER LIMBS 07/15/2011 TIFFANIE FIELDS APRNA S 278.00 OBESITY 07/15/2011 MECCA FIELDS APRN S 707.10 CHRONIC CUTANEOUS ULCER NONDECUBITUS OF LOWER LIMBS 07/15/2011 MARCELO RAMOS APRNINA R 278.00 OBESITY 07/15/2011 RICHARD BRITTON BOAZ R 707.10 CHRONIC CUTANEOUS ULCER NONDECUBITUS OF LOWER LIMBS 07/15/2011 WHITE DDS, LIBIA D 278.00 OBESITY 07/15/2011 WHITE DDS, LIBIA D 707.10 CHRONIC CUTANEOUS ULCER NONDECUBITUS OF LOWER LIMBS 07/15/2011 278.00 OBESITY 07/15/2011 707.10 CHR ONIC CUTANEOUS ULCER NONDECUBITUS OF LOWER LIMBS 07/15/2011 AVANI ORTIZ MD N 278 .00 OBESITY 07/15/2011 AVANI ORTIZ MD 707 .10 CHRONIC CUTANEOUS ULCER NONDECUBITUS OF LOWER LIMBS 07/15/2011 AVANI ORTIZ MD N 278 .00 OBESITY 07/15/2011 AVANI ORTIZ MD 707 .10 CHRONIC CUTANEOUS ULCER NONDECUBITUS OF LOWER LIMBS 02/28/2012 HAVEN TRIANA MD 46Lucy SORE THROAT 02/28/2012 462 SORE T HROAT 02/28/2012 HAVEN TRIANA MD 46Lucy SORE THROAT 02/28/2012 462 SORE T HROAT 02/28/2012 462 SORE T HROAT 02/28/2012 462 SORE T HROAT 02/28/2012 462 SORE T HROAT 02/28/2012 STEPHEN KATHLEEN DIXIE K 462 SORE THROAT 02/28/2012 STEPHEN KATHLEEN DIXIE K 462 SORE THROAT 02/28/2012 STEPHEN KATHLEEN, DIXIE K 462 SORE THROAT 02/28/2012 AVANI ORTIZ MD N 462 SORE THROAT 02/28/2012 AVANI ORTIZ MD 462 SORE THROAT 02/28/2012 AVANI ORTIZ MD N 462 SORE THROAT 02/28/2012 MECCA FIELDS APRN S 462 SORE THROAT 02/28/2012 RICHARD BRITTON, BOAZ R 4 62 SORE THROAT 02/28/2012 LIBIA SYED DDS 46 2 SORE THROAT 02/28/2012 462 SORE T HROAT 02/28/2012 AVANI ORTIZ MD 462 SORE THROAT 02/28/2012 AVANI ORTIZ MD 462 SORE THROAT 08/31/2012 459.81 CHR ONIC CUTANEOUS ULCER VENOUS STASIS 08/31/2012 459.81 CHR ONIC CUTANEOUS ULCER VENOUS STASIS 08/31/2012 459.81 CHR ONIC CUTANEOUS ULCER VENOUS STASIS 08/31/2012 STEPHEN KATHLEEN DIXIE K 459.81 CHRONIC CUTANEOUS ULCER VENOUS STASIS 08/31/2012 STEPHEN KATHLEEN DIXIE K 459.81 CHRONIC CUTANEOUS ULCER VENOUS STASIS 08/31/2012 DANIEL MITCHELL DOA K 459.81 CHRONIC CUTANEOUS ULCER VENOUS STASIS 08/31/2012 AVANI ORTIZ MD N 459 .81 CHRONIC CUTANEOUS ULCER VENOUS STASIS 08/31/2012 AVANI ORTIZ MD N 459 .81 CHRONIC CUTANEOUS ULCER VENOUS STASIS 08/31/2012 AVANI ORTIZ MD N 459 .81 CHRONIC CUTANEOUS ULCER VENOUS STASIS 08/31/2012 MECCA FIELDS APRN S 459.81 CHRONIC CUTANEOUS ULCER VENOUS STASIS 08/31/2012 MARCELO RAMOS APRNINA R 459.81 CHRONIC CUTANEOUS ULCER VENOUS STASIS 08/31/2012 LIBIA SYED DDS 459.81 CHRONIC CUTANEOUS ULCER VENOUS STASIS 08/31/2012 AVANI ORTIZ MD 459 .81 CHRONIC CUTANEOUS ULCER VENOUS STASIS 08/31/2012 AVANI ORTIZ MD N 459 .81 CHRONIC CUTANEOUS ULCER VENOUS STASIS 12/20/2012 MITCHELL DO, DIXIE K 401.1 HYPERTENSION, BENIGN ESSENTIAL 12/20/2012 MITCHELL DO, DIXIE K 401.1 HYPERTENSION, BENIGN ESSENTIAL 12/20/2012 MITCHELL DO, DIXIE K 401.1 HYPERTENSION, BENIGN ESSENTIAL 12/20/2012 AVANI ORTIZ MD N 401 .1 HYPERTENSION, BENIGN ESSENTIAL 12/20/2012 AVANI ORTIZ MD N 401 .1 HYPERTENSION, BENIGN ESSENTIAL 12/20/2012 AVANI ORTIZ MD N 401 .1 HYPERTENSION, BENIGN ESSENTIAL 12/20/2012 MECCA FIELDS APRN S 401.1 HYPERTENSION, BENIGN ESSENTIAL 12/20/2012 MARCELO RAMOS APRNINA R 401.1 HYPERTENSION, BENIGN ESSENTIAL 12/20/2012 KUNAL MARLEY, LIBIA Barker 40 1.1 HYPERTENSION, BENIGN ESSENTIAL 12/20/2012 AVANI ORTIZ MD N 401 .1 HYPERTENSION, BENIGN ESSENTIAL 12/20/2012 AVANI ORTIZ MD 401 .1 HYPERTENSION, BENIGN ESSENTIAL 12/27/2012 MITCHELL DO DIXIE K 682.6 CELLULITIS AND ABSCESS OF LEG EXCEPT FOOT 12/27/2012 STEPHEN KATHLEEN DIXIE K 682.6 CELLULITIS AND ABSCESS OF LEG EXCEPT FOOT 12/27/2012 AVANI ORTIZ MD N 682 .6 CELLULITIS AND ABSCESS OF LEG EXCEPT FOOT 12/27/2012 AVANI ORTIZ MD N 682 .6 CELLULITIS AND ABSCESS OF LEG EXCEPT FOOT 12/27/2012 AVANI ORTIZ MD N 682 .6 CELLULITIS AND ABSCESS OF LEG EXCEPT FOOT 12/27/2012 MECCA FIELDS APRN S 682.6 CELLULITIS AND ABSCESS OF LEG EXCEPT FOOT 12/27/2012 MARCELO RAMOS APRNINA R 682.6 CELLULITIS AND ABSCESS OF LEG EXCEPT FOOT 12/27/2012 KUNAL VYASS, LIBIA D 68 2.6 CELLULITIS AND ABSCESS OF LEG EXCEPT FOOT 12/27/2012 AVANI ORTIZ MD N 682 .6 CELLULITIS AND ABSCESS OF LEG EXCEPT FOOT 12/27/2012 AVANI ORTIZ MD N 682 .6 CELLULITIS AND ABSCESS OF LEG EXCEPT FOOT 10/17/2013 MECCA FIELDS APRN S 525.9 TOOTH PAIN 10/17/2013 BOAZ RAMOS APRN R 525.9 TOOTH PAIN 10/17/2013 WHITE DDS, LIBIA D 52 5.9 TOOTH PAIN 10/17/2013 AVANI ORTIZ MD N 525 .9 TOOTH PAIN 10/17/2013 AVANI ORTIZ MD N 525 .9 TOOTH PAIN 11/05/2013 BOAZ RAMOS APRN R 521.03 DENTAL CARIES EXTENDING INTO PULP 11/05/2013 WHITE DDS, LIBIA D 521.03 DENTAL CARIES EXTENDING INTO PULP 11/05/2013 AVANI ORTIZ MD N 521 .03 DENTAL CARIES EXTENDING INTO PULP 11/05/2013 AVANI ORTIZ MD N 521 .03 DENTAL CARIES EXTENDING INTO PULP 06/21/2017 EUNICE HERRON CORRECTION OFFICER SUPERVISOR Ot I87.2 VENOUS INSUFFICIENCY (CHRONIC) (PERIPHER 06/21/2017 EUNICE HERRON CORRECTION OFFICER SUPERVISOR Ot L97.222 NON-PRESSURE CHRONIC ULCER OF LEFT CALF 06/21/2017 EUNICE HERRON CORRECTION OFFICER SUPERVISOR Ot I87.2 VENOUS INSUFFICIENCY (CHRONIC) (PERIPHER 06/21/2017 EUNICE HERRON CORRECTION OFFICER SUPERVISOR Ot L97.222 NON-PRESSURE CHRONIC ULCER OF LEFT CALF 07/05/2017 EUNICE HRERON CORRECTION OFFICER SUPERVISOR Ot I87.2 VENOUS INSUFFICIENCY (CHRONIC) (PERIPHER 07/05/2017 EUNICE HERRON R CORRECTION OFFICER SUPERVISOR Ot L97.222 NON-PRESSURE CHRONIC ULCER OF LEFT CALF 07/06/2017 EUNICE HERRON CORRECTION OFFICER SUPERVISOR Ot I87.2 VENOUS INSUFFICIENCY (CHRONIC) (PERIPHER 07/06/2017 EUNICE HERRON CORRECTION OFFICER SUPERVISOR Ot L97.222 NON-PRESSURE CHRONIC ULCER OF LEFT CALF 07/07/2017 EUNICE HERRON CORRECTION OFFICER SUPERVISOR Ot I87.2 VENOUS INSUFFICIENCY (CHRONIC) (PERIPHER 07/07/2017 EUNICE HERRON CORRECTION OFFICER SUPERVISOR Ot L03.116 CELLULITIS OF LEFT LOWER LIMB 07/07/2017 EUNICE HERRON CORRECTION OFFICER SUPERVISOR Ot L97.222 NON-PRESSURE CHRONIC ULCER OF LEFT CALF 07/14/2017 EUNICE HERRON CORRECTION OFFICER SUPERVISOR Ot I87.2 VENOUS INSUFFICIENCY (CHRONIC) (PERIPHER 07/14/2017 EUNICE HERRON CORRECTION OFFICER SUPERVISOR Ot L03.116 CELLULITIS OF LEFT LOWER LIMB 07/14/2017 EUNICE HERRON CORRECTION OFFICER SUPERVISOR Ot L97.222 NON-PRESSURE CHRONIC ULCER OF LEFT CALF 07/21/2017 GERMAINE, EUNICE R CORRECTION OFFICER SUPERVISOR Ot I87.2 VENOUS INSUFFICIENCY (CHRONIC) (PERIPHER 07/21/2017 GERMAINE, EUNICE R CORRECTION OFFICER SUPERVISOR Ot L03.116 CELLULITIS OF LEFT LOWER LIMB 07/21/2017 GERMAINE, EUNICE R CORRECTION OFFICER SUPERVISOR Ot L97.222 NON-PRESSURE CHRONIC ULCER OF LEFT CALF 07/26/2017 GERMAINE, EUNICE R CORRECTION OFFICER SUPERVISOR Ot I87.2 VENOUS INSUFFICIENCY (CHRONIC) (PERIPHER 07/26/2017 GERMAINE, EUNICE R CORRECTION OFFICER SUPERVISOR Ot L03.116 CELLULITIS OF LEFT LOWER LIMB 07/26/2017 GERMAINE, EUNICE R CORRECTION OFFICER SUPERVISOR Ot L97.222 NON-PRESSURE CHRONIC ULCER OF LEFT CALF 08/02/2017 GERMAINE, EUNICE R CORRECTION OFFICER SUPERVISOR Ot I87.2 VENOUS INSUFFICIENCY (CHRONIC) (PERIPHER 08/02/2017 GERMAINE, EUNICE R CORRECTION OFFICER SUPERVISOR Ot L03.116 CELLULITIS OF LEFT LOWER LIMB 08/02/2017 GERMAINE, EUNICE R CORRECTION OFFICER SUPERVISOR Ot L97.222 NON-PRESSURE CHRONIC ULCER OF LEFT CALF 12/23/2017 GERMAINE, EUNICE R CORRECTION OFFICER SUPERVISOR Ot I87.2 VENOUS INSUFFICIENCY (CHRONIC) (PERIPHER 12/23/2017 GERMAINE, EUNICE R CORRECTION OFFICER SUPERVISOR Ot L97.222 NON-PRESSURE CHRONIC ULCER OF LEFT CALF 12/23/2017 GERMAINE, EUNICE R CORRECTION OFFICER SUPERVISOR Ot I87.2 VENOUS INSUFFICIENCY (CHRONIC) (PERIPHER 12/23/2017 GERMAINE, EUNICE R CORRECTION OFFICER SUPERVISOR Ot L03.116 CELLULITIS OF LEFT LOWER LIMB 12/23/2017 GERMAINE, EUNIEC R CORRECTION OFFICER SUPERVISOR Ot L97.222 NON-PRESSURE CHRONIC ULCER OF LEFT CALF 12/23/2017 GERMAINE, EUNICE R CORRECTION OFFICER SUPERVISOR Ot I87.2 VENOUS INSUFFICIENCY (CHRONIC) (PERIPHER 12/23/2017 GERMAINE, EUNICE R CORRECTION OFFICER SUPERVISOR Ot L03.116 CELLULITIS OF LEFT LOWER LIMB 12/23/2017 GERMAINE, EUNICE R CORRECTION OFFICER SUPERVISOR Ot L97.222 NON-PRESSURE CHRONIC ULCER OF LEFT CALF 12/23/2017 GERMAINE, EUNICE R CORRECTION OFFICER SUPERVISOR Ot I87.2 VENOUS INSUFFICIENCY (CHRONIC) (PERIPHER 12/23/2017 GERMAINE, EUNICE R CORRECTION OFFICER SUPERVISOR Ot L03.116 CELLULITIS OF LEFT LOWER LIMB 12/23/2017 GERMAINE, EUNICE R CORRECTION OFFICER SUPERVISOR Ot L97.222 NON-PRESSURE CHRONIC ULCER OF LEFT CALF Procedures Code Description [place] [id number] INR (IN HOUSE) 02/28/2012 [id number] INR (IN HOUSE) 04/20/2012 13395 INR (IN HOUSE) 04/27/2012 [id number] INR (IN HOUSE) 07/26/2012 [id number] INR (IN HOUSE) 08/31/2012 12196 INR (IN HOUSE) 09/12/2012 39173 INR (IN HOUSE) 09/24/2012 [id number] ROUT INE VENIPUNCTURE 12/20/2012 14849 INR (IN HOUSE) 12/20/2012 07547 LIPI D PANEL 12/20/2012 CARDIOLOG MARRERO, HEART 12/20/2012 [id number] INR (IN HOUSE) 01/18/2013 43859 INR (IN HOUSE) 04/11/2013 PHYSICAL [facility], [facility] 05/21/2013 [id number] INR (IN HOUSE) 05/21/2013 15045 INR (IN HOUSE) 09/25/2013 30151 INR (IN HOUSE) 02/12/2014 95997 [facility] 02/12/2014 05556 INR (IN HOUSE) 05/09/2014 [id number] ROUT INE VENIPUNCTURE 05/09/2014 [id number] CMP 05/09/2014 [id number] LIPI D PANEL 05/09/2014 [id number] GF R CALC (RESULT ONLY) 05/09/2014 Results Test Result Range CBC With Differential/Platelet - 7 09:38 WBC 6.5 x10E3/uL 3.4-10.8 RBC 4.69 x10E6/uL 4.14-5.80 Hemoglobin 14.9 g/dL 12.6-17.7 Hematocrit 42.2 % 37.5-51.0 MCV 90 fL 79-97 MCH 31.8 pg 26.6-33.0 MCHC 35.3 g/dL 31.5-35.7 RDW 13.2 % 12.3-15.4 Platelets 196 x10E3/uL 150-379 Neutrophils 74 % Lymphs 17 % Monocytes 8 % Eos 1 % Basos 0 % Neutrophils (Absolute) 4.8 x10E3/uL 1.4- 7.0 Lymphs (Absolute) 1.1 x10E3/uL 0.7-3.1 Monocytes(Absolute) 0.5 x10E3/uL 0.1-0.9 Eos (Absolute) 0.1 x10E3/uL 0.0-0.4 Baso (Absolute) 0.0 x10E3/uL 0.0-0.2 Immature Granulocytes 0 % Immature Grans (Abs) 0.0 x10E3/uL 0.0-0. 1 Comp. Metabolic Panel (14) - 04/27/16 09 :38 Glucose, Serum 93 mg/dL 65-99 BUN 18 mg/dL 6-20 Creatinine, Serum 1.19 mg/dL 0.76-1.27 eGFR If NonAfricn Am 79 mL/min/1.73 >59 eGFR If Africn Am 91 mL/min/1.73 >59 BUN/Creatinine Ratio 15 8-19 Sodium, Serum 141 mmol/L 134-144 Potassium, Serum 4.6 mmol/L 3.5-5.2 Chloride, Serum 100 mmol/L 96-106 Carbon Dioxide, Total 25 mmol/L 18-29 Calcium, Serum 9.6 mg/dL 8.7-10.2 Protein, Total, Serum 7.3 g/dL 6.0-8.5 Albumin, Serum 4.6 g/dL 3.5-5.5 Globulin, Total 2.7 g/dL 1.5-4.5 A/G Ratio 1.7 1.1-2.5 Bilirubin, Total 0.7 mg/dL 0.0-1.2 Alkaline Phosphatase, S 69 IU/L 39-117 AST (SGOT) 24 IU/L 0-40 ALT (SGPT) 29 IU/L 0-44 Lipid Panel - 04/27/16 09:38 Cholesterol, Total 173 mg/dL 100-199 Triglycerides 150 mg/dL 0-149 HDL Cholesterol 41 mg/dL >39 VLDL Cholesterol Tolu 30 mg/dL 5-40 LDL Cholesterol Calc 102 mg/dL 0-99 PDM - PAIN MGMT (PROFILE 3 WITH CONFIRMA TION) - 06/15/17 11:38 Prescribed Drug 1 Hydrocodone NRG Creatinine 93.3 mg/dL > or = 20.0 pH 6.44 4.5 - 9.0 Oxidant NEGATIVE mcg/mL <200 Amphetamines NEGATIVE ng/mL <500 medMATCH Amphetamines CONSISTENT NRG Benzodiazepines NEGATIVE ng/mL <100 medMATCH Benzodiazepines CONSISTENT NRG Marijuana Metabolite NEGATIVE ng/mL <20 medMATCH Marijuana Metab CONSISTENT NRG Cocaine Metabolite NEGATIVE ng/mL <150 medMATCH Cocaine Metab CONSISTENT NRG Opiates POSITIVE ng/mL <100 Oxycodone NEGATIVE ng/mL <100 medMATCH Oxycodone CONSISTENT NRG COMMENT NRG Codeine NEGATIVE ng/mL <50 medMATCH Codeine CONSISTENT NRG Hydrocodone 1329 ng/mL <50 medMATCH Hydrocodone CONSISTENT NRG Hydromorphone 1049 ng/mL <50 medMATCH Hydromorphone CONSISTENT NRG Morphine NEGATIVE ng/mL <50 medMATCH Morphine CONSISTENT NRG Norhydrocodone 2687 ng/mL <50 medMATCH Norhydrocodone CONSISTENT NRG Bacteria identification in isolate by an aerobe culture - 06/20/17 10:00 QUANTITY OF GROWTH Scant Growth NRG Bacteria identification in isolate by anaerobe culture [id number] NRG Gram stain microscopy - 06/20/17 10:00 GRAM STAIN RESULT NO BACTERIA NRG Bacteria identification in wound by cult ure - 06/20/17 10:00 Bacteria identification in wound by culture [id number] NRG FREE TEXT EXTERNAL SENSITIVITY REPORTED 06/21 15:40 NRG QUANTITY OF GROWTH Scant Growth NRG Bacterial susceptibility panel - 8 10:00 Gentamicin susceptibility test by minimum inhibitory c oncentration <= NRG Trimethoprim/sulfamethoxazole susceptibi lity test by minimum inhibitoryconcentration S NRG Ampicillin susceptibility test by minimum inhibitory c oncentration <= NRG Tobramycin susceptibility test by minimum inhibitory c oncentration <= NRG Cefazolin susceptibility test by minimum inhibitory co ncentration <= NRG Ceftriaxone susceptibility test by minimum inhibitory concentration <= NRG Ampicillin/sulbactam susceptibility test by minimum inhibitory concentration <= NRG Piperacillin/tazobactam susceptibility t est by minimum inhibitory concentration S NRG Ciprofloxacin susceptibility test by minimum inhibitor y concentration <= NRG Meropenem susceptibility test by minimum inhibitory co ncentration <= NRG Aztreonam susceptibility test by minimum inhibitory co ncentration <= NRG Extended spectrum beta lactamase (ESBL) producing bacteria susceptibility test by minimum inhibitory concentration - NRG Fungus culture - 06/20/17 10:00 Fungus culture NG NRG URIC ACID, SERUM - 06/20/17 11:07 URIC ACID 9.9 mg/dL 4.0-8.0 CBC - 06/20/17 11:07 WHITE BLOOD CELL COUNT 5.4 Thousand/uL 3 .8-10.8 RED BLOOD CELL COUNT 4.51 Million/uL 4.2 0-5.80 HEMOGLOBIN 14.0 g/dL 13.2-17.1 HEMATOCRIT 41.5 % 38.5-50.0 MCV 92.0 fL 80.0-100.0 MCH 31.0 pg 27.0-33.0 MCHC 33.7 g/dL 32.0-36.0 RDW 12.7 % 11.0-15.0 PLATELET COUNT 239 Thousand/uL 140-400 MPV 10.1 fL 7.5-12.5 ABSOLUTE NEUTROPHILS 3623 cells/uL 1500- 7800 ABSOLUTE LYMPHOCYTES 1382 cells/uL 850-3 900 ABSOLUTE MONOCYTES 329 cells/uL 200-950 ABSOLUTE EOSINOPHILS 32 cells/uL 15-500 ABSOLUTE BASOPHILS 32 cells/uL 0-200 NEUTROPHILS 67.1 % NRG LYMPHOCYTES 25.6 % NRG MONOCYTES 6.1 % NRG EOSINOPHILS 0.6 % NRG BASOPHILS 0.6 % NRG PT/INR - 06/20/17 11:07 INR 2.6 NRG PT 27.8 sec 9.0-11.5 PDM - PAIN MGMT (PROFILE 3 WITH CONFIRMA TION) - 12/27/17 10:36 Prescribed Drug 1 Hydrocodone NRG Creatinine 213.0 mg/dL > or = 20.0 pH 5.60 4.5 - 9.0 Oxidant NEGATIVE mcg/mL <200 Amphetamines NEGATIVE ng/mL <500 medMATCH Amphetamines CONSISTENT NRG Benzodiazepines NEGATIVE ng/mL <100 medMATCH Benzodiazepines CONSISTENT NRG Marijuana Metabolite NEGATIVE ng/mL <20 medMATCH Marijuana Metab CONSISTENT NRG Cocaine Metabolite NEGATIVE ng/mL <150 medMATCH Cocaine Metab CONSISTENT NRG Opiates POSITIVE ng/mL <100 Oxycodone NEGATIVE ng/mL <100 medMATCH Oxycodone CONSISTENT NRG COMMENT NRG Codeine NEGATIVE ng/mL <50 medMATCH Codeine CONSISTENT NRG Hydrocodone 1492 ng/mL <50 medMATCH Hydrocodone CONSISTENT NRG Hydromorphone 871 ng/mL <50 medMATCH Hydromorphone CONSISTENT NRG Morphine NEGATIVE ng/mL <50 medMATCH Morphine CONSISTENT NRG Norhydrocodone 2257 ng/mL <50 medMATCH Norhydrocodone CONSISTENT NRG URIC ACID, SERUM - 03/08/18 16:15 URIC ACID 9.6 mg/dL 4.0-8.0 BMP - 06/25/18 09:23 GLUCOSE 87 mg/dL 65-99 UREA NITROGEN (BUN) 19 mg/dL 7-25 CREATININE 1.02 mg/dL 0.60-1.35 eGFR NON-AFR. FIJIAN 93 mL/min/1.73m2 > OR = 60 eGFR 108 mL/min/1.73m2 > OR = 60 BUN/CREATININE RATIO NOT APPLICABLE (calc) 6-22 SODIUM 139 mmol/L 135-146 POTASSIUM 4.6 mmol/L 3.5-5.3 CHLORIDE 104 mmol/L 98-110 CARBON DIOXIDE 28 mmol/L 20-32 CALCIUM 9.4 mg/dL 8.6-10.3 URIC ACID, SERUM - 06/25/18 09:23 URIC ACID 5.3 mg/dL 4.0-8.0 URIC ACID, SERUM - 03/14/19 11:25 URIC ACID 9.9 mg/dL 4.0-8.0 CBC - 03/14/19 11:25 WHITE BLOOD CELL COUNT 7.8 Thousand/uL 3 .8-10.8 RED BLOOD CELL COUNT 4.16 Million/uL 4.2 0-5.80 HEMOGLOBIN 12.9 g/dL 13.2-17.1 HEMATOCRIT 38.6 % 38.5-50.0 MCV 92.8 fL 80.0-100.0 MCH 31.0 pg 27.0-33.0 MCHC 33.4 g/dL 32.0-36.0 RDW 13.0 % 11.0-15.0 PLATELET COUNT 244 Thousand/uL 140-400 MPV 10.5 fL 7.5-12.5 ABSOLUTE NEUTROPHILS 5304 cells/uL 1500- 7800 ABSOLUTE LYMPHOCYTES 1849 cells/uL 850-3 900 ABSOLUTE MONOCYTES 476 cells/uL 200-950 ABSOLUTE EOSINOPHILS 140 cells/uL 15-500 ABSOLUTE BASOPHILS 31 cells/uL 0-200 NEUTROPHILS 68 % NRG LYMPHOCYTES 23.7 % NRG MONOCYTES 6.1 % NRG EOSINOPHILS 1.8 % NRG BASOPHILS 0.4 % NRG ANEMIA PANEL - 04/01/19 15:55 IRON, TOTAL 73 mcg/dL 50-180 FERRITIN 104 ng/mL 38-380 IRON BINDING CAPACITY 408 mcg/dL (calc) 250-425 % SATURATION 18 % (calc) 20-48 CBC - 04/16/19 15:59 WHITE BLOOD CELL COUNT 7.9 Thousand/uL 3 .8-10.8 RED BLOOD CELL COUNT 4.77 Million/uL 4.2 0-5.80 HEMOGLOBIN 14.3 g/dL 13.2-17.1 HEMATOCRIT 43.6 % 38.5-50.0 MCV 91.4 fL 80.0-100.0 MCH 30.0 pg 27.0-33.0 MCHC 32.8 g/dL 32.0-36.0 RDW 12.7 % 11.0-15.0 PLATELET COUNT 277 Thousand/uL 140-400 MPV 10.7 fL 7.5-12.5 ABSOLUTE NEUTROPHILS 5317 cells/uL 1500- 7800 ABSOLUTE LYMPHOCYTES 2054 cells/uL 850-3 900 ABSOLUTE MONOCYTES 450 cells/uL 200-950 ABSOLUTE EOSINOPHILS 40 cells/uL 15-500 ABSOLUTE BASOPHILS 40 cells/uL 0-200 NEUTROPHILS 67.3 % NRG LYMPHOCYTES 26.0 % NRG MONOCYTES 5.7 % NRG EOSINOPHILS 0.5 % NRG BASOPHILS 0.5 % NRG Encounters ACCT No. Visit Date/Time Discharge Status Pt. Type Provider Facility Loc./Unit Complaint [id number] 04/28/2016 08:40:00 Document Registration [id number] 05/09/2014 09:10:00 05/09/2014 23:59: 59 CLS Outpatient AVANI ORTIZ MD [id number] 02/12/2014 14:39:00 02/12/2014 23:59: 59 CLS Outpatient AVANI ORTIZ MD [id number] 11/13/2013 10:45:00 11/13/2013 23:59: 59 CLS Outpatient LIBIA SYED DDS [id number] 11/05/2013 14:38:00 11/05/2013 23:59: 59 CLS Outpatient BOAZ RAMOS APRN [id number] 10/17/2013 13:40:00 10/17/2013 23:59: 59 CLS Outpatient MECCA FIELDS APRN [id number] 09/25/2013 14:17:00 09/25/2013 23:59: 59 CLS Outpatient AVANI ORTIZ MD [id number] 05/21/2013 10:57:00 05/21/2013 23:59: 59 CLS Outpatient AVANI ORTIZ MD [id number] 04/11/2013 15:07:00 04/11/2013 23:59: 59 CLS Outpatient AVANI ORTIZ MD [id number] 01/18/2013 14:07:00 01/18/2013 23:59: 59 CLS Outpatient DIXIE MITCHELL DO [id number] 12/27/2012 15:31:00 12/27/2012 23:59: 59 CLS Outpatient DIXIE MITCHELL DO Karin [id number] 12/20/2012 09:37:00 12/20/2012 23:59: 59 CLS Outpatient DIXIE MITCHELL DO Karin [id number] 04/27/2012 14:40:00 04/27/2012 23:59: 59 CLS Outpatient HAVEN TRIANA MD [id number] 04/20/2012 16:52:00 04/20/2012 23:59: 59 CLS Outpatient [id number] 02/28/2012 16:11:00 02/28/2012 23:59: 59 [place] [id number] 02/28/2012 16:11:00 02/28/2012 23:59:5 9 CLS Outpatient [id number] 09/24/2012 11:00:00 Document Registration [id number] 09/12/2012 14:36:00 Document Registration [id number] 08/31/2012 15:50:00 Document Registration [id number] 07/26/2012 16:03:00 Document Registration [id number] 07/27/2017 16:46:00 018 23:59:59 CLS Preadmit EUNICE HERRON APRN [facility] [id number] 07/20/2017 14:16:00 018 23:59:59 CLS Outpatient EUNICE HERRON APRN [facility] [id number] 07/13/2017 13:52:00 018 23:59:59 CLS Outpatient EUNICE HERRON APRN [facility] [id number] 07/06/2017 15:00:00 018 23:59:59 CLS Outpatient EUNICE HERRON APRN [facility] [id number] 06/20/2017 08:34:00 018 23:59:59 CLS Outpatient EUNICE HERRON APRN [facility] [id number] 10/01/2019 10:20:00 10/01/2019 23:59: 59 [facility] Outpatient DIANA AVILA, AVANI Hsieh [facility] [id number] 04/16/2019 16:00:00 Document Registration [id number] 04/01/2019 16:00:00 Document Registration [id number] 03/14/2019 10:40:00 Document Registration [id number] 06/25/2018 09:20:00 Document Registration [id number] 03/08/2018 16:20:00 Document Registration [id number] 12/27/2017 10:20:00 Document Registration [id number] 06/20/2017 11:00:00 Document Registration [id number] 06/15/2017 11:20:00 Document Registration
== END 2019-11-08 11:59 | disposition home or self-care (01) ==
LOC: EDUNIT# 11:09 → ER 11:10
DX: L97.929 Non-pressure chronic ulcer of unspecified part of left lower leg with unspecified severity (principal); Z88.7 Allergy status to serum and vaccine; Z88.0 Allergy status to penicillin; Z88.5 Allergy status to narcotic agent; Z79.01 Long term (current) use of anticoagulants